=== PATIENT | male | born 1970 | race Caucasian/White ===

== ENCOUNTER 2024-09-10 08:33 | Emergency (ER) | payer BC, SELFPAY ==
[2024-09-10 08:40] VITALS: BP 130/94; PULSE 80; RESP 20; TEMP 37.1; O2SAT 98
--- NOTE | 2024-09-10 08:50 | ED_ITS ---
HPI - URI/Sore Throat General Chief Complaint: Upper Respiratory Infection Stated Complaint: Headache/nose burning Time Seen by Provider: 09/10/24 08:48 Source: patient and RN notes reviewed Mode of arrival: ambulatory Limitations: no limitations History of Present Illness HPI Narrative: 54-year-old male presents concern for 3 day history of headache, runny nose, burning eyes, burning nose. Reports occasional cough. He denies fever, aches, chills, sweats. Reports he has been taking an [id number] multi symptom cold medicine. MD elicited complaint: cough and nasal congestion Related Data Home Medications ?Medication ?Instructions ?Recorded ?Confirmed ?Last Taken ?Type bupropion HCl 300 mg 24 hr tablet, mg PO 09/10/24 Unknown History extended release lisinopril 5 mg tablet mg 09/10/24 Unknown History pramipexole 1.5 mg tablet mg 09/10/24 Unknown History pravastatin 40 mg tablet mg 09/10/24 Unknown History verapamil 120 mg tablet,extended mg PO 09/10/24 Unknown History release Review of Systems Review of Systems: CONSTITUTIONAL: Denies malaise, chills, sweats, or fever. EYES: Denies visual changes, redness, or discharge. ENT: Reports rhinorrhea, congestion, and sore throat. CARDIOVASCULAR: Denies chest pain, palpitations, or edema. RESPIRATORY: Reports cough. Denies dyspnea. GASTROINTESTINAL: Denies abdominal pain, nausea, vomiting, diarrhea SKIN: Denies rash or itching. MUSCULOSKELETAL: Denies myalgia. NEUROLOGIC: Reports headache. All systems reviewed & are unremarkable except as noted in HPI and below PMFSH Comments At time of signature, agree with nursing past medical, surgical, social and family history. There is no relevant family history pertinent to the presenting complaint Exam Narrative: GENERAL: Well-appearing, well-nourished, and in no acute distress. HEAD: Normocephalic EYES: PERRLA, conjunctivae clear ENT: Nares clear, turbinates edematous and erythematous, clear discharge. Mucous membranes moist. TM pearly hammond with sharp light reflex bilaterally; no tragal tenderness. Oropharynx not erythematous without lesions. Tonsils not enlarged and without exudate, no drooling, no hoarseness, no trismus, uvula midline. NECK: Supple. No lymphadenopathy CHEST: Clear to auscultation, breath sounds equal. No wheezing, rhonchi, rales, or stridor. No respiratory distress, speaks in full sentences. HEART: Regular rate and rhythm. No murmur heard. SKIN: Warm, dry, no rash. NEURO: Alert and oriented x3. PSYCH: Normal mood and affect Course Course Emergency Course: Patient is aware of diagnosis, understands and agrees to treatment plan. Anticipatory guidance given. Patient agrees to follow-up as directed and is aware of reasons to seek care at the emergency department. Portions of this record may have been created with voice recognition software Level of Care: Express Care Visit Vital Signs Vital signs: Vital Signs Temperature 98.7 F 09/10/24 08:40 Pulse Rate 80 09/10/24 08:40 Respiratory Rate 20 09/10/24 08:40 Blood Pressure 130/94 H 09/10/24 08:40 Pulse Oximetry 98 09/10/24 08:40 Oxygen Delivery Room Air 09/10/24 08:40 Temperature 98.7 F 09/10/24 08:40 Pulse Rate 80 09/10/24 08:40 Respiratory Rate 20 09/10/24 08:40 Blood Pressure 130/94 H 09/10/24 08:40 Pulse Oximetry 98 09/10/24 08:40 Oxygen Delivery Room Air 09/10/24 08:40 Reviewed. MDM - URI/Sore Throat MDM Narrative Medical decision making narrative: Differential diagnosis considered: De La Cruz virus, strep pharyngitis, allergic rhinitis, upper respiratory tract infection, sinusitis, rhinosinusitis, nasopharyngitis. viral pharyngitis, otitis media, otitis externa, pneumonia, bronchitis, viral cough syndrome, viral syndrome, and influenza. Exam findings show no acute concerns or changes; patient is non-toxic appearing and is in no distress. Patient is appropriate for outpatient treatment and follow-up. Lab Data Attestation: I reviewed the patient's lab results. Critical Care Time Critical Care Time Critical Care Time: No Discharge Plan Discharge Clinical Impression: Upper respiratory infection Patient Disposition: Home, Self-Care Condition: Stable Instructions: Upper Respiratory Infection (ED) Additional Instructions: Your rapid COVID and flu tests are negative Viral illness may last between 7-21 days; antibiotics do not cure viral illness and are NOT recommended at this time. Recommend antihistamine such as Benadryl at night time and Zyrtec or Yolanda during the day Mucinex DM per package directions Pseudoephedrine per package directions Also, recommend symptomatic treatment includes: rest, fluids, and increase humidity of the air at home. Recommend Acetaminophen as directed on the bottle to reduce fever, pain, headache. Avoid smoking/second-hand smoke. Please schedule a follow-up visit with your personal physician for further cherise luation and treatment within 3-5days. Including recheck and discussion of your blood pressure. If your symptoms persist, change or worsen significantly before you can contact your personal physician then please, without delay, go to the emergency department for further evaluation. Patient Language: Moldovan Prescriptions: No Action verapamil 120 mg tablet extended release PO pravastatin 40 mg tablet lisinopril 5 mg tablet pramipexole 1.5 mg tablet bupropion HCl 300 mg tablet extended release 24 hr PO Follow-up/Referrals: Christel,MD La [Primary Care Provider] - Time of Disposition: 09:13
[2024-09-10 09:14] LABS: EDCOVIDSCREEN Negative (Negative); EDINFLUASCREEN Negative (Negative); EDINFLUBSCREEN Negative (Negative)
--- OUTSIDE RECORDS SUMMARY | 2024-09-17 12:45 | XMS_ITS | CONTINUITY OF CARE DOCUMENT ---
Author Name tim dmuont Address Unknown Organization [facility] Address [address] [place] [address] [address] [place] [address] Phone [phone] Care Team Providers Care Mid Wife Name Role Phone tim dumnot Unavailable Unavailable
--- OUTSIDE RECORDS SUMMARY | 2024-09-17 12:45 | XMS_ITS | Encounter Summary ---
Author Name [facility] [place] [facility] Address [address] [place] [address] Care Team Providers Care Subwarehouse Supervisor Name Role Phone ANANYA MICKIE Primary Care Provider UnavailANA M Yañez Unavailable Unavailable CONRADO WATKINS Unavailable Unavailable LEONEL MONTANO Unavailable Unavailable HARRIET RUVALCABA Unavailable Unavailable DELVIN GODOY Unavailable Unavailable LILA DUFF Unavailable Unavailable Insurance Providers: All historical and current Section Date Range: From patient's date of to the date document was created. This section includes the names of all active insurance providers for the patient. Insurance Provider Type of Coverage Plan Name Start of Policy Coverage End of Policy Coverage Group Number Member ID Insurance Provider's Telephone Number Policy Wilson's Name Patient's Relationship to Policy Wilson [place] PREFERRED PROVIDER ORGANIZ[place]) [place] Nov 17, [id number] [phone] CLEMENT,B EMILY PATIENT [employer] [employer] PREFERRED PROVIDER ORGANIZAT ION (PPO) [employer] [place] [place] Nov 17, [id number] [phone] CLEMENT,B EMILY PATIENT [employer] PREFERRED PROVIDER ORGANIZAT ION (PPO) [employer] [place] [place] Nov 17, [id number] [phone] CLEMENT,B EMILY PATIENT [place] PREFERRED PROVIDER ORGANIZAT ION (PPO) [employer] [place] [place] Nov 17, 2017 [id number] [phone] Hal CLEMENT EMILY PATIENT [employer] ([employer]) PRESCRIPT ION REP WAGE Nov 17, 2017 [id number] [phone] RACQUEL REIDBROOKLYNY PATIENT Selected Encounter This section includes the information on record at [place] for the Encounter. Date/Time Encounter Type Encounter Description Reason Pro vider Source February 04, 2024 02:15 PM Outpatient Encounter ADMIN PAT ACTIVTIES (MASNONCT) IHE Encounter Template Text not used by [place] Social History: Smoking Status (Most current) and Tobacco Use (All prior to encounter date) This section includes the most current, and the historical, smoking and tobacco- related health factors from the [place] facility where the Encounter took place. Current Smoking Status This section includes the most current smoking, or tobacco-related health factor, from the [place] facility where the Encounter took place. Date/Time Current Smoking Status Comment Mao jarvis Jul 26, 2017 09:42 AM TOBACCO USER OFFERED MEDS [facility] Tobacco Use History This section includes a history of the smoking, or tobacco-related health factors, that were collected on or before the date of the Encounter. The data comes from the [place] facility where the Encounter took place. Date/Time Smoking Status/Tobacco Use Comment F acility Jul 26, 2017 09:42 AM CURRENT TOBACCO US ER (NOT READY TO QUIT) [facility] Jul 26, 2017 09:42 AM SMOKELESS TOBACCO AMOUNT/LENGTH V15 can daily [facility] Jul 26, 2017 09:42 AM TOBACCO CESSATION REFERRAL DECLINED [facility] Jul 26, 2017 09:42 AM TOBACCO MEDS OFFER ED BUT DECLINED [facility] Jul 26, 2017 09:42 AM TOBACCO USER OFFERED MEDS [facility] Jun 10, 2017 03:07 PM CURRENT TOBACCO USER [facility] Jun 10, 2017 03:07 PM TOBACCO MEDS OFFER ED BUT DECLINED [facility] Nov 15, 2016 08:14 AM CURRENT TOBACCO USER [facility] Encounter Notes: All associated encounter notes This section contains the clinical notes associated to the Encounter. Date/Time Encounter Note(s) Provider Source February 04, 2024 01:15 PM ADMINISTRATIVE NOT E: LOCAL TITLE: CCC: SCHEDULING ADMINISTRATION STANDARD TITLE: ADMINISTRATIVE NOTE DATE OF NOTE: FEBRUARY 04, 2024@13:15:53 ENTRY DATE: FEBRUARY 04, 2024@13:15:54 AUTHOR: LICO MADDOX COSIGNER: URGENCY: STATUS: COMPLETED Patient Demographics Patient Name: THOMAS CLEMENT Patient Primary Phone: [phone] Patient Primary [address]: [address] [place] [address] Patient : 1970 Patient Age: 53 Caller/Recipient Relation to Patient: Self Administrative Administrative Note Reason: Other Administrative Note Comments: called into [facility] stating that he is returning call. Informed the of the note placed. no provider listed at this time. please return call to the . /russ/ LICO CLEMENS Signed: 02/04/2024 13:16 Receipt Acknowledged By: 02/05/2024 09:09 /russ/ ROSE MARY GALICIA Advanced Patient Scheduler, PTSD AZRA 58 LICO MADDOX [facility]
--- OUTSIDE RECORDS SUMMARY | 2024-09-17 12:45 | XMS_ITS | Continuity of Care Document ---
Author Name [facility] Organization [facility] Care Team Providers Care Wharf Operator Name Role Phone [facility] Unavailable Unavailable Problems Combined list of problems from Department of [facility] and [facility] facilities. It does not include entries that were removed or entered in error. Problem Status Onset Date Problem Type Date of Resolution Comments Source Essential hypertension Active Condition [facility] Hyperlipidemia Active Condition . ANDREW IS [facility] Obstructive sleep apnea syndrome Active Condition [facility] Restless legs Active Condition . KAREN S [facility] Tobacco user Active Condition [facility] Immunizations Combined list of available immunizations from the Department of [facility] and [facility] facilities. Immunization Series Date Given Administered By Site Reaction Lot Number CVX Code Drug Silvering Department Supervisor Status Comments Source TDAP 2016 115 complet ed Left Del[facility]id [facility] Encounters Combined list of: 1) Encounters from [facility] of [facility] facilities going back up to thelast 18 months. 2) Encounters from the Department of [facility] facilities going back up to 280 months. Location Location Details Encounter Type Encounter Number Reason For Visit Attending Provider ADM Date DC Date Status Disposition Source [facility] Outpatient Encounter [id number] 01/29 [facility] Outpatient Encounter [id number] 02/03 [facility] Social History Combined list of available smoking, tobacco, and other social history from [facility] and [facility] facilities. Social History Type Response Date Comment Sourc e Tobacco smoking status NHIS TOBACCO USER OFFERED MEDS 07/26/2017 [facility] History of tobacco use CURRENT TOBACCO USER 07/26/2017 [facility] History of tobacco use CURRENT TOBACCO USER 06/10/2017 [facility] History of tobacco use CURRENT TOBACCO USER 11/15/2016 [facility]
--- OUTSIDE RECORDS SUMMARY | 2024-09-17 12:45 | XMS_ITS ---
Author Name [facility] Address [address] [place] [address] Care Team Providers Care Combination Saw Operator Name Role Phone ANANYA MICKIE Primary Care [...] (PPO) [employer] [place] [facility] [facility] Nov 17, [id number] [phone] CLEMENT,B EMILY PATIENT [employer] [place] PREFERRED PROVIDER ORGANIZAT ION (PPO) [employer] [place] Nov 17, [id number] [phone] CLEMENT,B EMILY PATIENT [employer] PREFERRED PROVIDER ORGANIZAT ION (PPO) [employer] [place] Nov 17, [id number] [phone] CLEMENT,B EMILY PATIENT [place] PREFERRED PROVIDER ORGANIZAT ION (PPO) [employer] [place] [place] Nov 17, 2017 [id number] [phone] Hal CLEMENT EMILY PATIENT [employer] ([employer]) PRESCRIPT ION REP WAGE Nov 17, 2017 [id number] [phone] RACQUEL REIDBROOKLYNY PATIENT Selected Encounter This section includes the information on record at [place] for the Encounter. Date/Time Encounter Type Encounter Description Reason Pro vider Source January 30, 2024 05:04 PM Outpatient Encounter ADMIN PAT ACTIVTIES (MASNONCT) IHE Encounter Template Text not used by [place] Social History: Smoking Status (Most current) and Tobacco Use (All prior to encounter date) This section includes the most current, and the historical, smoking and tobacco- related health factors from the [place] facility where the Encounter took place. Current Smoking Status This section includes the most current smoking, or tobacco-related health factor, from the [place] facility where the Encounter took place. Date/Time Current Smoking Status Comment Mao jarvis Jul 26, 2017 09:42 AM TOBACCO USER OFFERED MEDS [facility] Tobacco Use History This section includes a history of the smoking, or tobacco-related health factors, that were collected on or before the date of the Encounter. The data comes from the [place] facility where the Encounter took place. Date/Time Smoking Status/Tobacco Use Comment F acility Jul 26, 2017 09:42 AM CURRENT TOBACCO US ER (NOT READY TO QUIT) [facility] Jul 26, 2017 09:42 AM SMOKELESS TOBACCO AMOUNT/LENGTH V15 can daily [facility] Jul 26, 2017 09:42 AM TOBACCO CESSATION REFERRAL DECLINED [facility] Jul 26, 2017 09:42 AM TOBACCO MEDS OFFER ED BUT DECLINED [facility] Jul 26, 2017 09:42 AM TOBACCO USER OFFERED MEDS [facility] Jun 10, 2017 03:07 PM CURRENT TOBACCO USER [facility] Jun 10, 2017 03:07 PM TOBACCO MEDS OFFER ED BUT DECLINED [facility] Nov 15, 2016 08:14 AM CURRENT TOBACCO USER [facility] Encounter Notes: All associated encounter notes This section contains the clinical notes associated to the Encounter. Date/Time Encounter Note(s) Provider Source January 30, 2024 05:04 PM PRIMARY CARE CLARITZA RS: LOCAL TITLE: PC NEW PATIENT NO CONTACT LETTER [facility] STANDARD TITLE: PRIMARY CARE LETTERS DATE OF NOTE: JANUARY 30, 2024@17:04 ENTRY DATE: JANUARY 30, 2024@17:04:15 AUTHOR: ROSE MARY GALICIA COSIGNER: URGENCY: STATUS: COMPLETED [facility] [address] [place] [address] JANUARY 30, 2024 JADEN CLEMENT [address] [place] [id number] Dear Jaden Clement, Thank you for your interest in establishing care with a Primary Care Provider at the [facility]. Your Primary Care Provider is the clinical leader of your Patient Aligned Care Team (PACT). Your PACT Team manages and coordinates your comprehensive health care services. Primary Care includes, but is not limited to: diagnosis and management of acute and chronic health conditions, health promotion, disease prevention, overall care management, post-deployment care, and patient and caregiver education. If you would like more information, please visit [email or web address]. We have been unsuccessful in our attempts to contact you to schedule your initial appointment. Based on your current residence, the clinic recommended for your primary care needs is: [place] [address] We are happy to accommodate your request with another clinic, if needed. Please call to schedule your initial appointment. Thank you for your service, and we look forward to hearing from you. Sincerely, ROSE MARY GALICIA Advanced Crusher Setter, PTSD AZRA 58 JADEN CLEMENT JR, [facility] January 30, 2024 05:04 PM ADMINISTRATIVE NOT E: LOCAL TITLE: SCHEDULING NOTE ST[facility] STANDARD TITLE: ADMINISTRATIVE NOTE DATE OF NOTE: JANUARY 30, 2024@17:04 ENTRY DATE: JANUARY 30, 2024@17:04:44 AUTHOR: ROSE MARY GALICIAER: URGENCY: STATUS: COMPLETED Additional comments: Called [facility] to offer PCP appt. Contact Letter Sent ADDITIONAL RESULTS FROM SCHEDULING ATTEMPTS: /russ/ ROSE MARY GALICIA Advanced Crusher Setter, PTSD AZRA 58 Signed: 01/30/2024 17:04 ROSE MARY GALICIA [facility]
--- OUTSIDE RECORDS SUMMARY | 2024-09-17 12:46 | XMS_ITS | Encounter Summary ---
Author Organization [facility] Healthcare Address [address] [place] [address] Care Team Providers Care Fixed Income Portfolio Manager Name Role Phone Mariaelena Zaidi MD Unavailable La Kearney MD Primary Care Provide r Reason for Visit * Reason Onset Date Comments Additional Services Or Orders 06/01/2024 Medical Question/Miscellaneous 06/01/2024 Encounter Details Date Type Department Care Team (Late st Contact Info) Description 06/01/2024 Telephone [facility] Medical Group Primary Care at [address] [place] [address] La Kearney MD [address] [place] [address] [address] [place] [address] Additional Services Or Orders; Medical Question/Miscellaneous Social History Tobacco Use Types Packs/Day Years Used Date Smoking Tobacco: Never Smokeless Tobacco: Former Chew Quit: 08/2018 Comments:chews, not interest ed in counseling Alcohol Use Standard Drinks/Week Comments Yes 0 (1 standard drink = 0.6 oz pur e alcohol) can of beer a month AUDIT-C Answer Date Recorded Q1: How often do you have a drink containing alc ohol? 2-3 times a week 02/18/2024 Q2: How many drinks containi ng alcohol do you have on a typical day when you are drinking? 1 or 2 02/18/2024 Q3: How often do you have si x or more drinks on one occasion? Never 02/18/2024 PHQ-2 Answer Date Recorded PHQ-2 Total Score (If total score is 3 or more points, staff should administer the PHQ-9) 0 05/25/2024 Personal Safety Answer Date Recorded Have you ever been in or are you currently in a harmful physical or emotional relationship or is someone making you feel afraid or unsafe? 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 * Telephone Encounter - Mundo Mendez - 06/04/2024 3:41 PM CDT Medical Question/Miscellaneous Caller???s Concern: [facility] called stating they are needing the Ambulatory referral fax over to their office. And Does message need to be routed? Yes-Action Needed * Telephone Encounter - Mona Hightower - 06/01/2024 11:29 AM CDT Call Back Caller???s Concern: Ofelia Physical Therapist w/ [facility] calling to request orders for Shoulder as well as back. Warm transferred as patient was in office currently Does message need to be routed? No documented in this encounter Plan of Treatment Not on file documented as of this encounter Visit Diagnoses Not on filedocumented in this encounter Care Teams Fixed Income Portfolio Manager Relationship Specialty Start Date End Date La Kearney MD [address] [facility] [address] [place] [address] [place] [phone] PCP - General Family Medicine 10/02/22 Mariaelena Zaidi MD Consulting Physician Sleep Medicine 07/12/21 documented as of this encounter
--- OUTSIDE RECORDS SUMMARY | 2024-09-17 12:46 | XMS_ITS | Encounter Summary ---
Author Organization [facility] Healthcare Address [address] [place] [address] Care Team Providers Care Mobility Specialist Name Role Phone Mariaelena Zaidi MD Unavailable La Kearney MD Primary Care Provide r Reason for Referral * Diagnostic Imaging (Routine) - Pending Review Specialty Diagnoses / Procedures Referred By Zaida camacho Referred To Contact Diagnoses Myalgia, other site Procedures Imaging Ultrasound Trigger Point INJ 3+ Muscle Groups () Wilfredo Mccormick MD [address] [place] [address] DR LUCAS [address] [place] [id number] Phone: tel: fax: [facility] [address] [place] [address] Referral ID Status Reason Start Date Expiration Date V isits Requested Visits Authorized [id number] Pending Review 08/20/2024 09/19/2025 1 1 BREAKER Reason for Visit * Reason Comments Initial Consult Pain Encounter Details Date Type Department Care Team (Latest Contact Info) Description 08/20/2024 10:11 AM COP BREAKER - 08/20/2024 11:59 PM COP BREAKER Hospital Encounter [facility] 2 [facility] [place] [address] Wilfredo Mccormick MD [address] [place] [address] DR LUCAS [address] [place] [id number] Myalgia, other site (Primary Dx); Chronic right shoulder pain Discharge Disposition: Discharge to home or self care Social History Tobacco Use Types Packs/Day Years [...] points, staff should administer the PHQ-9) 0 08/20/2024 Personal Safety Answer Date Recorded Have you ever been in or are you currently in a harmful physical or emotional relationship or is someone making you feel afraid or unsafe? Denies 04/13/2024 Sex and Gender Information Value Date Recorded Sex Assigned at Not on file 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 COP BREAKER Gender Identity Not on file Sexual Orientation Not on file documented as of this encounter Last Filed Vital Signs Vital Sign Reading Time Taken Comments Blood Pressure 140/94 08/20/2024 10:48 AM COP BREAKER Pulse 96 08/20/2024 10:48 AM COP BREAKER Temperature - - Respiratory Rate 18 08/20/2024 10:48 AM COP BREAKER Oxygen Saturation 96% 08/20/2024 10:48 AM COP BREAKER Inhaled Oxygen Concentration - - Weight - - Height - - Body Mass Index - - documented in this encounter Medications at Time of Discharge lisinopriL (PRINIVIL,ZESTRIL) 5 mg tabletIndications:Es sential hypertension Take 1 tablet (5 mg total) by mouth nightly 100 tablet 3 02/18/2024 metoprolol XL (TOPROL-XL) 50 mg extended release tabletIndications:Es sential hypertension Take 1 tablet (50 mg total) by mouth nightly 90 tablet 3 02/18/2024 phenazopyridine (PYRIDIUM) 200 mg tablet Take 1 tablet (200 mg total) by mouth 3 (three) times a day as needed for bladder spasms 9 tablet 04/14/2024 pramipexole (MIRAPEX) 1.5 mg tabletIndications:Re stless legs syndrome TAKE 1 TABLET THREE TIMES A DAY 100 tablet 10 02/10/2024 pravastatin (PRAVACHOL) 40 mg tabletIndications:Hy perlipidemia, unspecified hyperlipidemia type TAKE 1 TABLET DAILY 90 tablet 1 12/27/2023 tamsulosin (FLOMAX) 0.4 mg extended release capsule Take 1 capsule (0.4 mg total) by mouth nightly 30 capsule 04/14/2024 buPROPion XL (WELLBUTRIN XL) 300 mg 24 hr tablet TAKE 1 TABLET EVERY MORNING 100 tablet 1 03/08/2024 documented as of this encounter Discharge Disposition Disposition Code Departure Means Destination Discharge to home or self care documented in this encounter Progress Notes * Wilfredo Mccormick MD - 08/20/2024 10:54 AM CST Treatment Summary Impression: Query myalgia pain in the setting of chronic right shoulder pain versus cervical spondylosis; trial simple trigger point injections to cervical paraspinal musculature and right trapezius The following imaging/procedural orders were placed during this visit: Orders Placed This Encounter Procedures Imaging Ultrasound Trigger Point INJ 3+ Muscle Groups () Medications: None Follow up: For procedure Patient Name: Jaden De La Torre Age: 53 y.o. [facility] New Patient Visit Subjective Jaden De La Torre presents today at the recommendation of Dr. Kearney for initial evaluation regarding his history of axial neck and shoulder pain. Current pain is/was chronic in onset, inciting etiology: progressive Pain Score: 6 Pain Descriptors: Radiating, Sharp, Stabbing (LOCKS UP) Pain Location: Neck Aggravating Factors: Other (Comment) (MOVEMENT, CANT SLEEP ON RIGHT SIDE) Alleviating factors: rest, repositioning, and activity modification Pain Radiating Towards: NECK INTO RIGHT SHOULDER, WEAKNESS IN SHOULDER Axial neck pain centered around cervical paraspinal musculature and right trapezius. Extension and flexion of the neck are particularly aggravating, no aggravation with rotation. Occasional feeling at neck will ???lock up?? . 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 At home while sitting in his recliner, needs to hold his phone at eye level to avoid neck pain. Denies any radicular features down the arm, no difficulty with fine finger movement or myelopathic symptoms. Currently in physical therapy for his right shoulder, see x-ray findings below. Outstanding referral from orthopedics. Occasional child care education coordinator which helps temporarily. Heat is also beneficial for him. THERAPIES TO DATE INTERVENTIONS: RELEVANT SURGERIES: Current medications: [x] Tylenol [] Gabapentin [] Nortriptyline [] Tramadol [] Oxycontin [] Flexeril [] Lidocaine patch [] -Triptans [] Aspirin [] Lyrica [] Amitriptyline [] Tylenol 3 [] MSContin [] Tizanidine [] OTC topicals [] Propranolol [] Aleve [] Cymbalta [] Topiramate [] Codeine [] Dilaudid [] Baclofen [] Capsaicin [] Botox [x] Ibuprofen [] Valproate [] Oxycodone [] Methadone [] Soma [] Fioricet [] Meloxicam [] Carbamazepine [] [place] [] Fentanyl [] Metaxalone [] Diclofenac [] Naltrexone [] Percocet [] Buprenorphine [] Methocarbamol [] Celebrex [] Morphine [] Nucynta [] Soma Other: CONSERVATIVE MEASURES [x] Physical Therapy [x] Chiropractor [] Home Exercise [] Yoga/stretching [] TENS Unit [x] OTC medications (see above) [x] Heat/ice [] Other ( ) Pt has tried the conservative measures indicated above for at least 6 month(s) with inadequate relief. Jaden De La Torre's history was reviewed and updated as appropriate including past medical history, past surgical history, social history, family history, allergies, and home medication list. A review of systems was completed, reviewed, and scanned into the chart. ROMÁN, PEG Scale, and Current Opioid Misuse Measure (COMM) reviewed during this encounter. Modified Oswestry Low Back Pain Score: 13 Objective Vitals: 08/20/24 1048 BP: 140/94 Pulse: 96 Resp: 18 SpO2: 96% PHYSICAL EXAM General: Pleasant, no acute distress, normal appearance, grooming and nutrition Skin: No rashes or lesions on exposed skin Heart/Lungs: non labored breathing Neuro/MSK: Cranial nerves intact No gross deformities on inspection Gait: normal edwin and stride Palpation: tenderness over bilateral cervical paraspinal muscles and tenderness over right trapezius muscles Range of motion: Hesitant range of motion primarily with extension, normal rotation Sensation: grossly normal to light touch in BL upper extremities Spurling: reproduced axial symptoms Action Grade Right Left Shoulder shrug (C4) 5 5 Shoulder abduction (C5) 5 5 Biceps flexion (C5-6) 5 5 Wrist extension (C6) 5 5 Triceps extension/wrist flexion (C7) 5 5 Finger flexion (C8) 5 5 Finger abduction (T1) 5 5 Reflex Grade Right Left Biceps (C5) normal (2+) normal (2+) Brachioradialis (C6) normal (2+) normal (2+) Triceps (C7) normal (2+) normal (2+) Upper motor neuron testing: Sarmiento: negative bilaterally Lhermitte sign negative DIAGNOSTICS I have reviewed all relevant imaging studies and explained pertinent findings to the patient. 2023: X-ray right shoulder, thoracic spine, lumbar spine Thoracic and lumbar spine: There is mild retrolisthesis of L4 on L5 and L3 on L4 with lumbar hypolordosis. Thoracic spine alignment is within normal limits. Vertebral body heights are normal. There is no acute fracture. There is mild multilevel thoracolumbar spine degenerative disc disease. Lower lumbar spine facet joint osteoarthritis. Left iliac bone island is present. Right shoulder: There is widening of the acromioclavicular interval either reflecting sequela of prior injury or prior distal end clavicle resection. The glenohumeral joint alignment is within normal limits. The glenohumeral joint space is normal. No aggressive bone lesions or erosions. There is no acute fracture. 2022: X-rays cervical spine There are no fractures. Cervical kyphosis is present. There is no prevertebral soft tissue swelling. There is mild C3-C5 and moderate C5-C7 degenerative disc disease. There is mild bilateral C5-C7 foraminal impingement. There is mild facet osteoarthritis. Assessment/Plan Myalgia, other Chronic right shoulder pain Mild cervical facet arthritis Was a pleasure to meet Jaden today in clinic. I think it is reasonable to expect axial neck pain and chronic right shoulder pain are related to some degree, discussed how right shoulder injury can cause stiffness/pain in the trapezius and cervical paraspinal musculature over time particularly if he were favoring the joint to avoid pain. 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 Only mild facet degeneration on x-ray, however. I think it would be reasonable to start with simple trigger point injections of the cervical paraspinals as well as the right trapezius. Encouraged him to continue physical therapy, focus on stretching and range of motion, and utilize heat for muscle tenderness if necessary. See below for justification, follow up procedure. Wilfredo Mccormick MD Interventional Pain Management [facility] PLAN JUSTIFICATION History and physical exam consistent with myofascial pain which is contributing to the patient's overall pain state. This is evident through multiple trigger points as mentioned above. Pain has been present for at least 4 weeks and the patient has failed to respond (or has been unable to tolerate) conservative measures during that timeframe (see Subjective for specific measures). For these reasons, I think it's reasonable to try a trigger point injection of the affected muscles. Specific muscle(s) - right splenius capitis, trapezius, and periscapular musculature We discussed the nature of the procedure including risks and benefits. We also discussed reasonableexpectations for pain relief (ie may not get 100% relief and results will likely be temporary). Rather, the goal is to use this intervention to help maximize activity/rehabilitation/therapy for more lasting results.The patient expressed understanding and is willing to proceed. MIPS Best Practice documentation Blood pressure in clinic today was BP: 140/94. This classifies as a hypertensive BP reading (SBP > 140 OR DBP > 90). Recommended lifestyle modifications and discussion with PCP. Patient is not a tobacco user. PATIENT EDUCATION Learning needs assessment was performed and no barriers identified. Explained diagnosis and treatment plan. Patient expressed understanding and was able to teach back. I personally spent a total of 10 minutes of [id number] time performing a review of the recordand/or discussion with the patient/caregiver as described above. Total time spent with patient 30 minutes, total time in counseling 20 minutes. FIRE HAZARD INSPECTOR: Turf Keeper completed with Fluency Direct, dictation proofread to best of my ability. BREAKER documented in this encounter Nursing Notes * Madelaine Fried RN - 08/20/2024 10:45 AM CST Level 2 Escorted patient to exam room. Obtained vital signs. Reviewed patient's allergies and current medications. Obtained and verified patient's simple medical/surgical history. Confirmed the reason for visit with the patient. Obtained the following screening assessments: [x] Modified Oswestry Low Back Pain Questionnaire [] PMC Intake Questionnaire [] PMC Follow up Questionnaire [] Fall Risk Assessment (Abby Domingo Steadi) [x] Depression/Anxiety Assessment (GAD7, PHQ-9, [place] Suicide, Dill Depression) [] Disability Scale [] CAGE [] SOAPP-R Additional tasks included: [] Random medication adherence check (pill verification by two nurses) [] Work/school note written [] Pended CT/MRI/MRA order [] Pain assessment for multiple sites [x] PEG, COMM, NEW PATIENT PAPERWORK Vital Signs Pulse: 96 Resp: 18 BP: 140/94 SpO2: 96 % Post-visit transport confirmed with the patient. Total time spent for patient care, education, and care coordination was approximately 11-20 minutes. BREAKER documented in this encounter Plan of Treatment Scheduled Orders Name Type Priority Associated Diagnoses Orde r Schedule Imaging Ultrasound Trigger Point INJ 3+ Muscle Groups () Imaging Schedule Routine, Read Routine (OP Routine) Myalgia, other site Expected: 08/20/2024, Expires: 08/20/2025 documented as of this encounter Visit Diagnoses Diagnosis Myalgia, other site- Primary Chronic right shoulder pain Pain in joint, shoulder region documented in this encounter Care Teams Mobility Specialist Relationship Specialty Start Date End Date La Kearney MD [address] [facility] [address] [address] PCP - General Family Medicine 10/02/22 Mariaelena Zaidi MD Consulting Physician Sleep Medicine 07/12/21 documented as of this encounter
--- OUTSIDE RECORDS SUMMARY | 2024-09-17 12:46 | XMS_ITS | Encounter Summary ---
Author Organization [facility] Healthcare Address [address] [place] [address] Care Team Providers Care Auxiliary Plant Operator Name Role Phone Mariaelena Zaidi MD Unavailable La Kearney MD Primary Care Provide r Reason for Visit * Reason Onset Date Comments Appointment Request 08/17/2024 Encounter Details Date Type Department Care Team (Late st Contact Info) Description 08/17/2024 Telephone [facility] Primary Care at [address] [phone] La Kearney MD [address] [place] [address] Appointment Request Social History Tobacco Use Types Packs/Day Years [...] on file 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 SPEECH LANG PATH Gender Identity Not on file Sexual Orientation Not on file documented as of this encounter Miscellaneous Notes * Telephone Encounter - Alida Doran - 08/18/2024 1:20 PM CST Call to pt to schedule his appt for back pain. Scheduled him w/Shannan for tomorrow at 10:30. CH LANG PATH * Telephone Encounter - Fior Contreras - 08/17/2024 3:55 PM CST Appointment Request What visit type does the patient need? Visit Type: Established Patient What is the reason for the visit? 2m back and shoulder pain What is the reason we were unable to schedule the appointment? Current appointment availability didnot meet patient's need. If applicable, were all members of the patient's PCP care team offered (e.g., nurse practioner(s), physician service assistant(s)) ? Yes Additional Comments: none Does message need to be routed? Yes-Action Needed CH LANG PATH documented in this encounter Plan of Treatment Not on file documented as of this encounter Visit Diagnoses Not on filedocumented in this encounter Care Teams Auxiliary Plant Operator Relationship Specialty Start Date End Date La Kearney MD [address] [place] [address] DR LUCAS [address] [place] [id number] PCP - General Family Medicine 10/02/22 Mariaelena Zaidi MD Consulting Physician Sleep Medicine 07/12/21 documented as of this encounter
--- OUTSIDE RECORDS SUMMARY | 2024-09-17 12:46 | XMS_ITS | Encounter Summary ---
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 * Telephone Encounter - Ginger Farmer MA - 06/01/2024 1:44 PM CDT Please review. * Telephone Encounter - La Kearney MD - 06/01/2024 1:42 PM CDT Please add order for right shoulder pain as recommended at check out * Telephone Encounter - Ginger Farmer MA - 06/01/2024 11:[address] Kearney, please review message. * Telephone Encounter - Alida Doran - 06/01/2024 11:29 AM CDT [facility] is asking for a new order for his Rt shoulder. He was sent for PT for Chronic midline thoracic back pain (M54.6,G89.29). They are asking for a new order to include his Rt shoulder along with the back pain. Pt is there now. documented in this encounter Plan of Treatment Not on file documented as of this encounter Visit Diagnoses Not on filedocumented in this encounter Care Teams Deicer Repairer Pneumatic Relationship Specialty Start Date End Date La Kearney MD [address] [place] [address] [address] LUCAS [address] [place] [address] PCP - General Family Medicine 10/02/22 Mariaelena Zaidi MD Consulting Physician Sleep Medicine 07/12/21 documented as of this encounter
--- OUTSIDE RECORDS SUMMARY | 2024-09-17 12:46 | XMS_ITS | Clinical Summary ---
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 20 tablet 3 023 Active pravastatin (PRAVACHOL) 40 mg tabletIndications :Hyperlipidemia, unspecified hyperlipidemia type TAKE 1 TABLET DAILY 90 tablet 1 024 Active pramipexole (MIRAPEX) 1.5 mg tabletIndications :Restless legs syndrome TAKE 1 TABLET THREE TIMES A DAY 100 tablet 10 024 Active lisinopriL (PRINIVIL,ZESTRIL ) 5 mg tabletIndications :Essential hypertension Take 1 tablet (5 mg total) by mouth nightly 100 tablet 3 024 Active metoprolol XL (TOPROL-XL) 50 mg extended release tabletIndications :Essential hypertension Take 1 tablet (50 mg total) by mouth nightly 90 tablet 3 024 2024 Active senna-docusate (PERICOLACE) 8.6-50 mg Take 2 tablets by mouth 2 (two) times a day 120 tablet 024 Active oxyBUTYnin XL (DITROPAN-XL) 10 mg 24 hr tablet Take 1 tablet (10 mg total) by mouth daily 30 tablet Active tamsulosin (FLOMAX) 0.4 mg extended release capsule Take 1 capsule (0.4 mg total) by mouth nightly 30 capsule Active phenazopyridine (PYRIDIUM) 200 mg tablet Take 1 tablet (200 mg total) by mouth 3 (three) times a day as needed for bladder spasms 9 tablet Active buPROPion XL (WELLBUTRIN XL) 300 mg 24 hr tablet TAKE 1 TABLET EVERY MORNING 90 tablet 1 Active buPROPion XL (WELLBUTRIN XL) 300 mg 24 hr tablet TAKE 1 TABLET EVERY MORNING 100 tablet 1 2023 Discontinued ciprofloxacin (CIPRO) 500 mg tablet Take 1 tablet (500 mg total) by mouth 2 (two) times a day 6 tablet 2023 Discontinued(P atient Reported) ketorolac (TORADOL) 10 mg tablet Take 1 tablet (10 mg total) by mouth every 6 (six) hours as needed for pain 30 tablet 2023 Discontinued(P atient Reported) Active Problems Problem Noted Date Diagnosed Date Class 2 severe obesity due t o excess calories with serious comorbidity and body mass index (BMI) of 36.0 to 36.9 in adult 05/25/2024 Acute pain of right shoulder 05/25/2024 Assessment & Plan (05/25/2024 9:07 AM CDT): New concern Worsening 2/2 heavy lifting Possible bursitis Referral to physical therapy Trial of medrol dose pack F/u in 2 months for monitoring, can consider ortho referral in the future Chronic midline thoracic back pain 05/25/2024 Assessment & Plan (05/25/2024 9:08 AM CDT): Worsening new pain Will get xray of the thoracic spine Possible arthritis Sent steroid pain Physical therapy F/u in 2 months for monitoring Ureteral stone with hydronephrosis 04/13/2024 Right lower quadrant abdominal pain 10/07/2023 Assessment & Plan (10/07/2023 1:20 PM POST ADOPTION COORDINATOR): New concern Not at goal Will get ct of the abdomen to rule out appendicitis and to evaluate the gall bladder Low suspicion that it is a kidney stone that migrated but will get a ct scan anyway F/u pending results Instructed to report the ED for worsening symptoms Status post appendectomy 10/07/2023 Acute appendicitis with loca lized peritonitis, without perforation, abscess, or gangrene 10/07/2023 Assessment & Plan (10/15/2023 9:14 AM POST ADOPTION COORDINATOR): Pathology has been reviewed with the patient. Just acute appendicitis. He did have significant adenopathy seen on imaging that likely was just reactive. However we will repeat his CT scan in 6-8 weeks to ensure nothing remains. Also if he has not had a colonoscopy within the past several years this should also be repeated just to ensure no intraluminal cause of the appendicitis. Continue light duty for 4 weeks then can return to activities unrestricted. Patient will call us back with any further questions or concerns. Intermittent palpitations 08/08/2023 Assessment & Plan (08/08/2023 4:00 PM POST ADOPTION COORDINATOR): Acute problem- this is a recurring problem Seen in ED for intermittent palpations Follow up with cardiology as scheduled Continue to monitor ECG: Vent Rate: 108 bpm RR Interval: 553 msec NH Interval: 163 msec QRS Duration: 97 msec QT Interval: 383 msec QTC Interval: 446 msec P-R-T [place]: 46 - 2 - 13 degrees IMPRESSION: SINUS TACHYCARDIA WITH FREQUENT SUPRAVENTRICULAR PREMATURE COMPLEXES Compared to prior EKG, heart rate is now faster and PVCs are new. (Electronically Signed By: Dr Anoop Pablo) ECG: Vent Rate: 66 bpm RR Interval: 898 msec NH Interval: 170 msec QRS Duration: 99 msec QT Interval: 399 msec QTC Interval: 413 msec P-R-T [place]: 45 - 14 - 29 degrees IMPRESSION: SINUS RHYTHM WITH OCCASIONAL SUPRAVENTRICULAR PREMATURE COMPLEXES POSSIBLE LEFT ATRIAL ENLARGEMENT [-0.1mV P-WAVE IN V1/V2] Compared to prior EKG, PACs are now less frequent. (Electronically Signed By: Dr Anoop Pablo) Neck pain 06/07/2023 Assessment & Plan (06/07/2023 10:09 AM CDT): Chronic Worsening Will get xray of the cervical spine Recommend heat and aleve Referral to physical therapy Depending on results and no improvement with physical therapy will refer to pain management or neurosurgery F/u in 1 month Right groin pain 11/20/2022 Assessment & Plan (11/20/2022 10:37 AM CDT): It does feel on clinical exam like the patient has a hernia. It was not present on his scan 6 months ago so I will order an ultrasound to see if in real time they can reproduce the bulge that I felt on clinical exam. Currently it is not overtly symptomatic to the patient's so he would like to prefer a more watchful waiting approach. He is aware of symptoms such as strangulation or incarceration. We will call him with the results of the ultrasound. If the hernia would ever become more symptomatic or he would like to get it fixed he will let us know as well. We have discussed postoperative restrictions. We have discussed the need for mesh implantation. Encounter for wellness examination 10/02/2022 Assessment & Plan (05/22/2024 7:13 AM CDT): Labs pending Flu declines Colonoscopy up to date, due 2030 F/u in 1 year for annual Assessment & Plan (06/06/2023 5:22 PM CDT): Ordered CBC, cmp, lipid, hgb a1c, HIV, hep c, TSH w/ reflex to t4 Flu declines Colonoscopy up to date F/u in 1 year for annual Assessment & Plan (10/02/2022 1:19 PM POST ADOPTION COORDINATOR): Med list and problem list reviewed Benign prostatic hyperplasia with weak urinary s tream 06/12/2022 Overview (06/12/2022): Added automatically from request for surgery [id number] Assessment & Plan (05/22/2024 7:06 AM CDT): Stable / clinically quiescent. Will continue to monitor. Managed by urology On flomax cialis and oxybutynin Assessment & Plan (06/06/2023 7:03 AM CDT): Stable / clinically quiescent. Will continue to monitor. Vitamin D deficiency 12/13/2021 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 Assessment & Plan (10/18/2021 4:41 PM POST ADOPTION COORDINATOR): Discussed with pt that he will need to take it easy. Rest when your body tells you. If still having symptoms in 6 wks, we will do echo and cxr Situational anxiety 07/27/2020 Assessment & Plan (05/22/2024 7:07 AM CDT): Patient reiterated no suicidal thoughts at this time; take medication as directed; contact 911 and go to the ER if becomes suicidal; HPI: Condition is stable A&P: Discussed/ordered labs, encouraged healthy, low carbohydrate lifestyle and at least 150min/week of exercise, continue on Bupropion 300 mg daily Assessment & Plan (06/06/2023 7:06 AM CDT): Patient reiterated no suicidal thoughts at this time; take medication as directed; contact 911 and go to the ER if becomes suicidal; HPI: Condition is stable A&P: Discussed/ordered labs, encouraged healthy, low carbohydrate lifestyle and at least 150min/week of exercise, continue on Bupropion 300 mg daily Assessment & Plan (10/18/2021 3:11 PM POST ADOPTION COORDINATOR): Patient reiterated no suicidal thoughts at this time; take medication as directed; contact 911 and go to the ER if becomes suicidal; discussed side effects of medication with patient; encouraged healthy diet and exericise; encouraged patient to see a counselor HPI: Condition is stable A&P: Discussed/ordered labs, encouraged healthy, low carbohydrate lifestyle and at least 150min/week of exercise, continue on Bupropion 300 mg daily Assessment & Plan (04/11/2021 4:32 PM CDT): Patient reiterated no suicidal thoughts at this time; take medication as directed; contact 911 and go to the ER if becomes suicidal; discussed side effects of medication with patient; encouraged healthy diet and exericise; encouraged patient to see a counselor HPI: Condition is stable A&P: Discussed/ordered labs, encouraged healthy, low carbohydrate lifestyle and at least 150min/week of exercise, continue on bupropion xl 300mg at bedtime Assessment & Plan (07/27/2020 9:25 AM POST ADOPTION COORDINATOR): HPI: Condition is new A&P: Discussed/ordered labs, encouraged healthy, low carbohydrate lifestyle and at least 150min/week of exercise, continue taking the buproprion. Use the alprazolam 0.25mg twice daily as needed for rescue only except tomorrow for the I want you take it. I want you to take the hydroxyzine 25mg at bedtime to help with sleep Discussed with patient that the alprazolam will be given for short term only. Discussed the risk of dependency, increased risk of dementia, discussed not to drive or operate machinery while using the medication as he could get a dui. I would like you to work on biofeedback. You can download an olegraio on your phone. Examples would be headspace, calm, [id number], Personal Steve. Please work on this every day. It is similar to if you were a musician with a big performance coming up. You would practice your instrument every day so that on the day of the big performance, you don't even have to think about playing. This works the same way for using the biofeedback to bring you down from those high stress/anxiety moments. If you practice using the biofeedback skills daily, it will become a second nature and you will be able to help yourself more effectively. Anger reaction 03/30/2019 Assessment & Plan (10/18/2021 3:14 PM POST ADOPTION COORDINATOR): Patient reiterated no suicidal thoughts at this time; take medication as directed; contact 911 and go to the ER if becomes suicidal; discussed side effects of medication with patient; encouraged healthy diet and exericise; encouraged patient to see a counselor HPI: Condition is stable A&P: Discussed/ordered labs, encouraged healthy, low carbohydrate lifestyle and at least 150min/week of exercise, continue on Bupropion 300 mg daily Assessment & Plan (04/11/2021 4:43 PM CDT): Patient reiterated no suicidal thoughts at this time; take medication as directed; contact 911 and go to the ER if becomes suicidal; discussed side effects of medication with patient; encouraged healthy diet and exericise; encouraged patient to see a counselor HPI: Condition is stable A&P: Discussed/ordered labs, encouraged healthy, low carbohydrate lifestyle and at least 150min/week of exercise, continue on bupropion xl 300mg at bedtime Assessment & Plan (04/28/2020 10:10 PM CDT): Discussed/ordered labs, Condition is worsening encouraged healthy, low carbohydrate lifestyle and at least 150min/week of exercise, since pt was doing well on the wellbutrin 150mg, we will increase to 300mg. This condition is likely worsening as pt is dealing with his mothers stage 4 lung cancer and leukemia. She has been given about 6 mo. Discussed with patient that we will likely need to stay on this medication increase for about a year if it is working well for him. Patient reiterated no suicidal thoughts at this time; take medication as directed; contact 911 and go to the ER if becomes suicidal; discussed side effects of medication with patient; encouraged healthy diet and exericise; encouraged patient to see a counselor We will have pt work on biofeedback. Discussed that this needs to be worked into his daily activities and described it as being muscle memory if you don't practice it daily, you will not remember the skillset. Return for follow up in 4-6 wks or sooner if needed. Assessment & Plan (09/30/2019 4:20 PM POST ADOPTION COORDINATOR): Pt's says the buproprion 150mg daily is helping he has been taking it for several months. He doesn't feel it is helping much though. He is not getting in trouble at work with anger He is able to get along with family. He struggles with crowds and people he doesn't know He does not see a counselor Watch youtube for biofeedback tips Benign ganglioneuroma of abdomen 03/30/2019 Assessment & Plan (04/28/2020 10:07 PM CDT): Repeat CT abd/pelvis for monitoring growth ordered Spondylosis of lumbar region without myelopathy or radiculopathy 03/30/2019 Assessment & Plan (05/25/2024 9:06 AM CDT): Chronic Worsening xray of the lumbar spine last year showed DDD, will repeat given recent heavy lifting Sent medrol dose back which will help with arthritic pain will refer to pain management F/u in 2 months Assessment & Plan (06/07/2023 10:09 AM CDT): Chronic Worsening Will get xray of the lumbar spine Recommend heat and aleve Referral to physical therapy Depending on results and no improvement with physical therapy will refer to pain management or neurosurgery F/u in 1 month Assessment & Plan (10/18/2021 3:13 PM POST ADOPTION COORDINATOR): HPI: Condition is stable A&P: Discussed/ordered labs, encouraged healthy, low carbohydrate lifestyle and at least 150min/week of exercise, Meloxicam 15 mg daily Assessment & Plan (04/11/2021 4:43 PM CDT): HPI: Condition is stable A&P: Discussed/ordered labs, encouraged healthy, low carbohydrate lifestyle and at least 150min/week of exercise, no meds needed at this time. Laryngopharyngeal reflux (LPR) 10/29/2018 Assessment & Plan (10/18/2021 3:15 PM POST ADOPTION COORDINATOR): HPI: Condition is stable no meds at this time, encouraged healthy diet and exercise Avoid trigger foods including: carbonated beverages, caffeine, spicy, fried foods, tomatoes, cucumbers, mint, and acidic fruits/juices like orange/lemon/grapefruit. Avoid eating/drinking anything for at least 2 hours before bed. Sleep with bed propped. 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 deficiency with terminal carman use of PPI with pt, would like to remain on medication at this time Assessment & Plan (04/11/2021 4:47 PM CDT): HPI: Condition is not at/near goal Pt does not want to go on meds, encouraged healthy diet and exercise Avoid trigger foods including: carbonated beverages, caffeine, spicy, fried foods, tomatoes, cucumbers, mint, and acidic fruits/juices like orange/lemon/grapefruit. Avoid eating/drinking anything for at least 2 hours before bed. Sleep with bed propped. Discussed increased risk of cdif and vit B12 deficiency with terminal carman use of PPI with pt, would like to remain on medication at this time Assessment & Plan (09/30/2019 2:17 PM POST ADOPTION COORDINATOR): Discussed/ordered labs, Condition is stable, encouraged healthy, low carbohydrate lifestyle and at least 150min/week of exercise, continue on ranitidine 300mg nightly Assessment & Plan (10/29/2018 4:10 PM POST ADOPTION COORDINATOR): Start Zantac 300 mg at bedtime Increase caffeine free and soda free fluid daily LPR discussed and Handout provided Hyperlipidemia 07/12/2016 Overview (12/15/2016): Hyperlipidemia Assessment & Plan (05/22/2024 7:04 AM CDT): Stable Continue pravastatin 40mg daily Assessment & Plan (06/06/2023 7:02 AM CDT): Stable Continue pravastatin 40mg daily Assessment & Plan (10/18/2021 3:12 PM POST ADOPTION COORDINATOR): HPI: Condition is stable A&P: Discussed/ordered labs, encouraged healthy, low carbohydrate lifestyle and at least 150min/week of exercise, continue on Pravastatin 40 mg daily Assessment & Plan (04/11/2021 4:42 PM CDT): HPI: Condition is stable A&P: Discussed/ordered labs, encouraged healthy, low carbohydrate lifestyle and at least 150min/week of exercise, continue on pravastatin 40mg daily Assessment & Plan (04/28/2020 9:55 PM CDT): Discussed/ordered labs, Condition is stable encouraged healthy, low carbohydrate lifestyle and at least 150min/week of exercise, continue on pravastatin 40mg daily Assessment & Plan (09/30/2019 2:17 PM POST ADOPTION COORDINATOR): Discussed/ordered labs, Condition is stable, encouraged healthy, low carbohydrate lifestyle and at least 150min/week of exercise, continue on pravastatin 40mg daily Assessment & Plan (10/20/2018 10:22 PM POST ADOPTION COORDINATOR): Lipid abnormalities are unchanged. Nutritional counseling was provided. Lipids will be reassessed in 3 months. Continue with pravastatin Recheck Lipids in 6 months Essential hypertension 07/12/2016 Overview (12/15/2016): Essential hypertension Assessment & Plan (05/25/2024 8:43 AM CDT): Bp in the office today BP Readings from Last 1 Encounters: 05/25/24 128/78 Continue current regimen of lisinopril 5mg daily metoprolol 50mg at night Recommend DASH diet, heart-healthy lifestyle, exercise. Discussed the risks of hypertension. F/u in 6 months Assessment & Plan (02/18/2024 3:53 PM CDT): Bp in the office today BP Readings from Last 1 Encounters: 02/18/24 110/70 Continue current regimen of lisinopril 5mg daily metoprolol 50mg at night Recommend DASH diet, heart-healthy lifestyle, exercise. Discussed the risks of hypertension. F/u at annual in 3 months Assessment & Plan (08/08/2023 3:45 PM POST ADOPTION COORDINATOR): Chronic problem-controlled with current regimen Continue metoprolol XL 25 mg daily Continue Metoprolol tartrate 25 mg- take half tablet (12.5 mg) daily prn BP this visit 108/62 Recommend DASH diet, heart-healthy lifestyle, exercise. Discussed the risks of hypertension. Continue to monitor Assessment & Plan (06/06/2023 5:09 PM CDT): Bp in the office today BP Readings from Last 1 Encounters: 06/06/23 128/78 Continue current regimen of lisinopril 5mg daily metoprolol 25mg at night Recommend DASH diet, heart-healthy lifestyle, exercise. Discussed the risks of hypertension. F/u in 6 months Assessment & Plan (10/02/2022 1:11 PM POST ADOPTION COORDINATOR): Bp in the office today BP Readings from Last 1 Encounters: 10/02/22 138/76 Continue current regimen Recommend DASH diet, heart-healthy lifestyle, exercise. Discussed the risks of hypertension. F/u in 6 months Assessment & Plan (10/18/2021 3:12 PM POST ADOPTION COORDINATOR): HPI: Condition is stable A&P: Discussed/ordered labs, encouraged healthy, low carbohydrate lifestyle and at least 150min/week of exercise, continue on Lisinopril 5 mg daily, metoprolol 25 mg daily Assessment & Plan (04/11/2021 4:41 PM CDT): HPI: Condition is at goal A&P: Discussed/ordered labs, encouraged healthy, low carbohydrate lifestyle and at least 150min/week of exercise, continue on lisinopril 5mg daily and metoprolol 25mg daily Assessment & Plan (04/28/2020 9:55 PM CDT): Discussed/ordered labs, Condition is stable encouraged healthy, low carbohydrate lifestyle and at least 150min/week of exercise, continue on metoprolol xl 25mg daily, lisinopril 5mg daily and aspirin 81mg daily Assessment & Plan (09/30/2019 2:16 PM POST ADOPTION COORDINATOR): Discussed/ordered labs, Condition is stable, encouraged healthy, low carbohydrate lifestyle and at least 150min/week of exercise, continue on lisinopril 5mg daily, metoprolol 25mg daily and aspirin 81mg Assessment & Plan (10/20/2018 10:46 PM POST ADOPTION COORDINATOR): Hypertension is worsening. Uncontrolled Pt. Has not been fully compliant with medications-he reports not being good at taking medications twice a day Medication changes per orders. Change to metoprolol XL (Toprol) Add Lisinopril 5 mg daily Pt. Is to take BP readings and document and send in thru Mychart or call in Blood pressure will be reassessed in 3 months. Lifestyle changes can help you control and prevent high blood pressure, even if you're taking blood pressure medication. Here's what you can do: Eat healthy foods. Eat a healthy diet. Try the Dietary Approaches to Stop Hypertension (DASH) diet, which emphasizes fruits, vegetables, whole grains, poultry, fish and low-fat dairy foods. Get plenty of potassium, which can help prevent and control high blood pressure. Eat less saturated fat and trans fat. Decrease the salt in your diet. A lower sodium level -- 1,500 milligrams (mg) a day -- is appropriate for people 51 years of age or older, and individuals of any age who are black or who have hypertension, diabetes or chronic kidney disease. Maintain a healthy weight. Keeping a healthy weight, or losing weight if you're overweight or obese, can help you control your high blood pressure and lower your risk of related health problems. If you're overweight, losing even 5 pounds (2.3 kilograms) can lower your blood pressure. Increase physical activity. Regular physical activity can help lower your blood pressure, manage stress, reduce your risk of several health problems and keep your weight under control. Limit alcohol. Even if you're healthy, alcohol can raise your blood pressure. If you choose to drink alcohol, do so in moderation. For healthy adults, that means up to one drink a day for women of all ages and men older than age 65, and up to two drinks a day for men age 65 and younger. One drink equals 12 ounces of beer, 5 ounces of wine or 1.5 ounces of 80-proof liquor. Don't smoke. Tobacco injures blood vessel negrete and speeds up the process of hardening of the arteries. If you smoke, ask your doctor to help you quit. Manage stress. Reduce stress as much as possible. Practice healthy coping techniques, such as muscle relaxation, deep breathing or meditation. Getting regular physical activity and plenty of sleep can help, too. Notify the office for blood pressure greater than 130/80 Restless legs syndrome 12/29/2013 Overview (12/14/2016): RLS (restless legs syndrome) Assessment & Plan (05/22/2024 7:09 AM CDT): Condition is stable A&P: Discussed/ordered labs, encouraged healthy, low carbohydrate lifestyle and at least 150min/week of exercise, continue Seeing Dr. Zaidi sleep medicine continue on CPAP, Mirapex 1.5 mg once daily at bedtime Assessment & Plan (06/06/2023 7:05 AM CDT): Condition is stable A&P: Discussed/ordered labs, encouraged healthy, low carbohydrate lifestyle and at least 150min/week of exercise, continue Seeing Dr. Zaidi sleep medicine continue on CPAP, Mirapex 1.5 mg once daily at bedtime Assessment & Plan (10/18/2021 4:27 PM POST ADOPTION COORDINATOR): HPI: Condition is stable A&P: Discussed/ordered labs, encouraged healthy, low carbohydrate lifestyle and at least 150min/week of exercise, continue Seeing Dr. Zaidi sleep medicine continue on CPAP, Mirapex 1.5 mg once daily at bedtime Assessment & Plan (04/11/2021 4:44 PM CDT): HPI: Condition is not at/near goal A&P: Discussed/ordered labs, encouraged healthy, low carbohydrate lifestyle and at least 150min/week of exercise, continue on mirapex 1.5mg up to 3 times daily. He has been using it about 2 times daily Assessment & Plan (04/28/2020 10:11 PM CDT): Discussed/ordered labs, Condition is stable encouraged healthy, low carbohydrate lifestyle and at least 150min/week of exercise, continue on mirapex and cpap Assessment & Plan (09/30/2019 4:16 PM POST ADOPTION COORDINATOR): Discussed/ordered labs, Condition is stable, encouraged healthy, low carbohydrate lifestyle and at least 150min/week of exercise, continue on mirapex 1.5mg three times daily Make sure you are drinking a lot of water Assessment & Plan (10/20/2018 10:40 PM POST ADOPTION COORDINATOR): Reports worsening RLS Needs to get updated sleep study and his TAJ controlled Will increase his Mirapex for now Check TSH, MG, Ferritin Activities in the evening that can help reduce mild symptoms of RLS include stretching, flexing, massaging affected areas, warm or cool baths, or light exercise. Substances known to cause or worsen RLS (e.g., caffeine, nicotine, and alcohol) should be minimized. Insomnia 12/29/2013 Overview (12/14/2016): Insomnia Assessment & Plan (10/18/2021 4:26 PM POST ADOPTION COORDINATOR): HPI: Condition is stable A&P: Discussed/ordered labs, encouraged healthy, low carbohydrate lifestyle and at least 150min/week of exercise, continue Seeing Dr. Zaidi sleep medicine continue on CPAP, Mirapex 1.5 mg once daily at bedtime Assessment & Plan (04/11/2021 4:42 PM CDT): HPI: Condition is worsening A&P: Discussed/ordered labs, encouraged healthy, low carbohydrate lifestyle and at least 150min/week of exercise, continue on cpap, refer to Dr. Zaidi (sleep med) Assessment & Plan (07/27/2020 9:27 AM POST ADOPTION COORDINATOR): HPI: Condition is worsening A&P: Discussed/ordered labs, encouraged healthy, low carbohydrate lifestyle and at least 150min/week of exercise, continue taking the buproprion. Use the alprazolam 0.25mg twice daily as needed for rescue only except tomorrow for the I want you take it. I want you to take the hydroxyzine 25mg at bedtime to help with sleep Discussed with patient that the alprazolam will be given for short term only. Discussed the risk of dependency, increased risk of dementia, discussed not to drive or operate machinery while using the medication as he could get a dui. I would like you to work on biofeedback. You can download an olegario on your phone. Examples would be headspace, calm, [id number], Personal Steve. Please work on this every day. It is similar to if you were a musician with a big performance coming up. You would practice your instrument every day so that on the day of the big performance, you don't even have to think about playing. This works the same way for using the biofeedback to bring you down from those high stress/anxiety moments. If you practice using the biofeedback skills daily, it will become a second nature and you will be able to help yourself more effectively. Assessment & Plan (04/28/2020 9:56 PM CDT): Discussed/ordered labs, Condition is stable encouraged healthy, low carbohydrate lifestyle and at least 150min/week of exercise, continue on cpap Assessment & Plan (09/30/2019 4:16 PM POST ADOPTION COORDINATOR): Pt states using cpap for 8 hours/night 7 nights/wk Pt states less daytime somnolence, feels better when using it. Would recommend the continued use of cpap Obstructive sleep apnea syndrome 07/06/2013 Overview (12/14/2016): TAJ (obstructive sleep apnea) Assessment & Plan (05/22/2024 7:09 AM CDT): Continue following with sleep medicine Continue with cpap machine Assessment & Plan (06/06/2023 5:13 PM CDT): Continue following with sleep medicine They recently increased his pressure Continue with cpap machine Assessment & Plan (10/02/2022 1:20 PM POST ADOPTION COORDINATOR): Continue following with sleep medicine They recently increased his pressure Assessment & Plan (10/18/2021 4:26 PM POST ADOPTION COORDINATOR): HPI: Condition is stable A&P: Discussed/ordered labs, encouraged healthy, low carbohydrate lifestyle and at least 150min/week of exercise, continue Seeing Dr. Zaidi sleep medicine continue on CPAP, Mirapex 1.5 mg once daily at bedtime Assessment & Plan (04/11/2021 4:43 PM CDT): HPI: Condition is worsening A&P: Discussed/ordered labs, encouraged healthy, low carbohydrate lifestyle and at least 150min/week of exercise, continue on cpap, refer to Dr. Zaidi (sleep med) Assessment & Plan (04/28/2020 10:10 PM CDT): Discussed/ordered labs, Condition is stable encouraged healthy, low carbohydrate lifestyle and at least 150min/week of exercise, continue on cpap Assessment & Plan (09/30/2019 4:15 PM POST ADOPTION COORDINATOR): Pt states using cpap for 8 hours/night 7 nights/wk Pt states less daytime somnolence, feels better when using it. Would recommend the continued use of cpap Assessment & Plan (10/20/2018 10:24 PM POST ADOPTION COORDINATOR): Hx of TAJ Last sleep study about 9 years ago Wakes up tired, fatigue, unrefreshed, still problems with sleep and snoring Needs updated sleep study TAJ may be increasing his symptoms of RLS at night Refer to Dr. Oro Resolved Problems Problem Noted Date Diagnosed Date Resolved Date JENNIFER (acute kidney injury) 04/13/2024 Acute appendicitis 10/07/2023 Encounter for follow-up exam ination after completed treatment for conditions other than malignant neoplasm 08/08/2023 05/22/2024 Assessment & Plan (08/08/2023 4:06 PM POST ADOPTION COORDINATOR): I personally reviewed H&P documentation by ED provider, CXR imaging, and ECG tracings from patient recent visit to [facility]. Medications reviewed and reconciled this visit Rectal pain 05/25/2020 10/18/2021 Overview (05/25/2020): Added automatically from request for surgery [id number] Encounter for screening colonoscopy 05/25/2020 04/11/2021 Overview (05/25/2020): Added automatically from request for surgery [id number] Numbness and tingling of lower extremity 12/09/2019 04/28/2020 Assessment & Plan (12/09/2019 8:44 PM CDT): Patient was concerned about possible blood clot. We discussed signs/symptoms of DVT which is not consistent with what he is having, however, we did discuss the limitations of a telephone visit. We also discussed risks/benefits of ordering lab testing and US testing during government quarantine. Pt opted not to do lab tests or further testing right now. We did discuss that his symptoms sounded like possibly neuropathy. He has only had symptoms for a less than a week. Ibuprofen helps with discomfort he is having. He will continue to monitor symptoms and update us with any new or worsening symptoms. Class 2 obesity due to exces s calories without serious comorbidity with body mass index (BMI) of 36.0 to 36.9 in adult 09/30/201902/2023 Assessment & Plan (04/03/2022 4:43 PM CDT): HPI: Condition is not at/near goal goal BMI <30 A&P: Healthy, high-protein, lower carbohydrate, lower fat lifestyle and exercise for 150min/week recommended Recommend tracking everything you put in your mouth on an olegario like Numecent Lower carb substitutions: Aldi carries a zero net carb bread If you are looking for whole potatoes, like to use in soup or new potato shape/flavor, radishes are a great replacement If you are looking for mashed potatoes, riced cauliflower in the frozen bag section are a great replacement For pasta, try using zucchini noodles, lay them out on a cookie sheet and pat dry with a tea towel to try to remove as much moisture as possible. Heat your pasta sauce on the stove and put the noodles in for 30-45 seconds. If you leave them in much longer they will become mushy [place] and/or coconut flour instead of regular flour For pizza dough, try fathead pizza dough recipe online. To get a crispy crust, bake on one side for 8-12 min, then flip over and bake on the other side for 8-12 min, then put toppings on and bake until the cheese on top of pizza melts chaffles recipe online For ice cream, try the brand Enlightened To replace coffee creamer and make it low carb, use heavy creamer with sugar free Torani sweetener For chips, try Whisps or pork rinds For yogurt, try Two Good salvadorean yogurt Use Pinterest for recipe ideas. Type in low carb... Hand Measurements: A fist or cupped hand = 1 cup 1 cup = 1??-2 servings of fruit juice 1 oz. of cold cereal 2 oz. of cooked cereal, rice or pasta 8 oz. of milk or yogurt A thumb = 1 oz. of cheese Consuming low-fat cheese helps you meet the required servings from the milk, yogurt and cheese group. 1?? oz. of low-fat cheese counts as 8 oz. of milk or yogurt. Handful = 1-2 oz. of snack food Thumb tip = 1 teaspoon Keep high-fat foods, such as peanut butter and mayonnaise, at a minimum. One teaspoon is equal to the end of your thumb, from the knuckle up. Three teaspoons equals 1 tablespoon. Palm = 3 oz. of meat Choose lean poultry, fish, shellfish and beef. One palm size portion equals 3 oz. for an adult and 1??-2 oz. for a child under 5. 1 tennis ball or a fist= 1/2 cup of fruit and vegetables Healthy diets include a variety of colorful fruits and vegetables every day. The secret to serving size is in your hand. Snacking can add up. Remember, 1 handful equals 1 oz. of nuts and small candies. For chips and pretzels, 2 handfuls equals 1 oz. Because hand sizes vary, compare your fist size to an actual measuring cup. Assessment & Plan (02/20/2022 4:13 PM CDT): HPI: Condition is not at/near goal goal BMI <30 A&P: Healthy, high-protein, lower carbohydrate, lower fat lifestyle and exercise for 150min/week recommended Recommend tracking everything you put in your mouth on an olegario like Numecent Lower carb substitutions: Aldi carries a zero net carb bread If you are looking for whole potatoes, like to use in soup or new potato shape/flavor, radishes are a great replacement If you are looking for mashed potatoes, riced cauliflower in the frozen bag section are a great replacement For pasta, try using zucchini noodles, lay them out on a cookie sheet and pat dry with a tea towel to try to remove as much moisture as possible. Heat your pasta sauce on the stove and put the noodles in for 30-45 seconds. If you leave them in much longer they will become mushy [place] and/or coconut flour instead of regular flour For pizza dough, try fathead pizza dough recipe online. To get a crispy crust, bake on one side for 8-12 min, then flip over and bake on the other side for 8-12 min, then put toppings on and bake until the cheese on top of pizza melts chaffles recipe online For ice cream, try the brand Enlightened To replace coffee creamer and make it low carb, use heavy creamer with sugar free Torani sweetener For chips, try Whisps or pork rinds For yogurt, try Two Good salvadorean yogurt Use Pinterest for recipe ideas. Type in low carb... Hand Measurements: A fist or cupped hand = 1 cup 1 cup = 1??-2 servings of fruit juice 1 oz. of cold cereal 2 oz. of cooked cereal, rice or pasta 8 oz. of milk or yogurt A thumb = 1 oz. of cheese Consuming low-fat cheese helps you meet the required servings from the milk, yogurt and cheese group. 1?? oz. of low-fat cheese counts as 8 oz. of milk or yogurt. Handful = 1-2 oz. of snack food Thumb tip = 1 teaspoon Keep high-fat foods, such as peanut butter and mayonnaise, at a minimum. One teaspoon is equal to the end of your thumb, from the knuckle up. Three teaspoons equals 1 tablespoon. Palm = 3 oz. of meat Choose lean poultry, fish, shellfish and beef. One palm size portion equals 3 oz. for an adult and 1??-2 oz. for a child under 5. 1 tennis ball or a fist= 1/2 cup of fruit and vegetables Healthy diets include a variety of colorful fruits and vegetables every day. The secret to serving size is in your hand. Snacking can add up. Remember, 1 handful equals 1 oz. of nuts and small candies. For chips and pretzels, 2 handfuls equals 1 oz. Because hand sizes vary, compare your fist size to an actual measuring cup. Assessment & Plan (10/18/2021 3:11 PM POST ADOPTION COORDINATOR): HPI: Condition is stable goal BMI <30 A&P: Healthy, high-protein, lower carbohydrate, lower fat lifestyle and exercise for 150min/week recommended Substitutions: Recommend tracking everything you put in your mouth on an olegario like Numecent or [employer] carries a zero net carb bread If you are looking for whole potatoes, like to use in soup or new potato shape/flavor, radishes are a great replacement If you are looking for mashed potatoes, riced cauliflower in the frozen bag section are a great replacement For pasta, try using zucchini noodles, lay them out on a cookie sheet and pat dry with a tea towel to try to remove as much moisture as possible. Heat your pasta sauce on the stove and put the noodles in for 30-45 seconds. If you leave them in much longer they will become mushy [place] and/or coconut flour instead of regular flour For pizza dough, try fathead pizza dough recipe online. To get a crispy crust, bake on one side for 8-12 min, then flip over and bake on the other side for 8-12 min, then put toppings on and bake until the cheese on top of pizza melts chaffles recipe online For ice cream, try the brand Enlightened To replace coffee creamer and make it low carb, use heavy creamer with sugar free Torani sweetener For chips, try Whisps or pork rinds For yogurt, try Two Good salvadorean yogurt Use Pinter[employer]irae for recipe ideas. Type in low carb... Assessment & Plan (04/11/2021 4:51 PM CDT): HPI: Condition is not at/near goal goal BMI <30 A&P: Healthy, high-protein, lower carbohydrate, lower fat lifestyle and exercise for 150min/week recommended Calories 2100 Protein 212 Fats 94 Carbs 106 Substitutions: Recommend tracking everything you put in your mouth on an olegario like Numecent or Guav[employer] Aldi carries a zero net carb bread If you are looking for whole potatoes, like to use in soup or new potato shape/flavor, radishes are a great replacement If you are looking for mashed potatoes, riced cauliflower in the frozen bag section are a great replacement For pasta, try using zucchini noodles, lay them out on a cookie sheet and pat dry with a tea towel to try to remove as much moisture as possible. Heat your pasta sauce on the stove and put the noodles in for 30-45 seconds. If you leave them in much longer they will become mushy [place] and/or coconut flour instead of regular flour For pizza dough, try fathead pizza dough recipe online. To get a crispy crust, bake on one side for 8-12 min, then flip over and bake on the other side for 8-12 min, then put toppings on and bake until the cheese on top of pizza melts chaffles recipe online For ice cream, try the brand Enlightened To replace coffee creamer and make it low carb, use heavy creamer with sugar free Torani sweetener For chips, try Whisps or pork rinds For yogurt, try Two Good salvadorean yogurt Use Pinterest for recipe ideas. Type in low carb... Assessment & Plan (07/27/2020 9:24 AM POST ADOPTION COORDINATOR): HPI: Condition is stable A&P: Healthy, low carbohydrate lifestyle and exercise for 150min/week recommended Substitutions: Aldi carries a zero net carb bread If you are looking for whole potatoes, like to use in soup or new potato shape/flavor, radishes are a great replacement If you are looking for mashed potatoes, riced cauliflower in the frozen bag section are a great replacement For pasta, try using zucchini noodles, lay them out on a cookie sheet and pat dry with a tea towel to try to remove as much moisture as possible. Heat your pasta sauce on the stove and put the noodles in for 30-45 seconds. If you leave them in much longer they will become mushy [place] and/or coconut flour instead of regular flour For pizza dough, try fathead pizza dough recipe online. To get a crispy crust, bake on one side for 8-12 min, then flip over and bake on the other side for 8-12 min, then put toppings on and bake until the cheese on top of pizza melts chaffles recipe online For ice cream, try the brand Enlightened Use Pinterest for recipe ideas. Type in low carb... Assessment & Plan (04/28/2020 9:55 PM CDT): Healthy, low carbohydrate lifestyle and exercise for 150min/week recommended Substitutions: Aldi carries a zero net carb bread If you are looking for whole potatoes, like to use in soup or new potato shape/flavor, radishes are a great replacement If you are looking for mashed potatoes, riced cauliflower in the frozen bag section are a great replacement For pasta, try using zucchini noodles, lay them out on a cookie sheet and pat dry with a tea towel to try to remove as much moisture as possible. Heat your pasta sauce on the stove and put the noodles in for 30-45 seconds. If you leave them in much longer they will become mushy [place] and/or coconut flour instead of regular flour For pizza dough, try fathead pizza dough recipe online. To get a crispy crust, bake on one side for 8-12 min, then flip over and bake on the other side for 8-12 min, then put toppings on and bake until the cheese on top of pizza melts chaffles recipe online For ice cream, try the brand Enlightened Use Pinterest for recipe ideas. Type in low carb... Assessment & Plan (09/30/2019 4:21 PM POST ADOPTION COORDINATOR): Healthy, low carbohydrate lifestyle and exercise for 150min/week recommended Generalized abdominal pain 06/27/2019 0 10/18/2021 Assessment & Plan (04/28/2020 10:06 PM CDT): CT abd/pelvis ordered Assessment & Plan (09/30/2019 4:15 PM POST ADOPTION COORDINATOR): He had CT scan last March which showed kidney stones Non-intractable cyclical vom iting without nausea 10/20/2018 04/28/2020 Assessment & Plan (09/30/2019 4:09 PM POST ADOPTION COORDINATOR): Having vomiting 1-2 times a day, none in the last week Pt taking ranitidine 300mg nightly and he doesn't eat after 9pm This has helped. This was happening all the time, but now it is about 1-2 times a week Continue on current meds, encouraged healthy diet and exercise Avoid trigger foods including: carbonated beverages, caffeine, spicy, fried foods, tomatoes, cucumbers, and mint Avoid eating/drinking anything for at least 2 hours before bed. Sleep with bed propped. Assessment & Plan (10/20/2018 10:29 PM POST ADOPTION COORDINATOR): Reports almost daily vomiting in the morning when he wakes up. No nausea associated with it. Unsure if it is related to his TAJ, hypersensitive gag reflex or if there is an enlarged tonsil/mass hitting the gag reflex Refer to ENT and GI I do believe he has GERD Screening for colon cancer 10/20/2018 0 04/28/2020 Nicotine dependence 07/12/2016 10/20/19 19 Overview (12/15/2016): Nicotine dependence, chewing tobacco, uncomplicated Chest pain due to myocardial ischemia 10/20/2018 Palpitation 09/30/2019 Assessment & Plan (10/20/2018 10:52 PM POST ADOPTION COORDINATOR): Recent chest pain, palpitations and went to ER 08/24/18 CXR normal Stress exercise Echo-Conclusions: Adequate stress test in regards to heart rate. No exercise induced chest pain. No definite ischemia on stress EKG. No Echocardiographic evidence of ischemia. Encounters Date Type Department Care Team Description 2024 Orders Only [facility] Primary [facility] at [address] [place] [id number] Shannan Galvan NP Cyst of joint of shoulder (Primary Dx); Tendon tear 2024 Telephone [facility] Primary [facility] at [address] [place] [phone] La Kearney MD 09/07/2024 6:36 AM POST ADOPTION COORDINATOR - 09/07/2024 11:59 PM POST ADOPTION COORDINATOR Hospital Encounter [facility] [address] [place] [address] Acute pain of right shoulder; Weakness of right arm Discharge Disposition: Discharge to home or self care 08/20/2024 10:11 AM POST ADOPTION COORDINATOR - 08/20/2024 11:59 PM POST ADOPTION COORDINATOR Hospital Encounter [facility] [address] [facility] [address] [place] [address] Wilfredo Mccormick MD Myalgia, other site (Primary Dx); Chronic right shoulder pain Discharge Disposition: Discharge to home or self care 08/20/2024 Orders Only [facility] Primary [facility] at [address] [place] [address] Shannan Galvan NP Acute pain of right shoulder (Primary Dx); Weakness of right arm 08/19/2024 10:30 AM POST ADOPTION COORDINATOR Office Visit [facility] Primary Care at [address] [place] [address] Shannan Galvan, ALAN Chronic midline low back pain without sciatica (Primary Dx); Degenerative disc disease, cervical; Acute pain of right shoulder; Weakness of right arm 08/17/2024 Telephone [facility] Care at [address] [place] [address] La Kearney MD Appointment Request from Last 3 Months Immunizations Name Administration Dates Next Due Influenza, Unspecified 08/19/2024(Deferr ed: Patient Refused),05/25/2024(Deferred: Patient Refused),10/07/2023(Deferred: Patient Refused),06/28/2023(Deferred: Patient Refused),04/09/2022(Deferred: Patient Refused),10/18/2021(Deferred: Patient Refused),04/09/2021(Deferred: Patient Refused),07/15/2020(Deferred: Patient Refused),07/02/2019(Deferred: Patient Refused),06/23/2019(Deferred: Patient decision) Tdap 09/30/2019,07/26/2017 ZOSTER Recombinant 10/27/2019,08/19/2019 Surgical History Surgery Date Site/Laterality Comments SHOULDER SURGERY Right CARPAL TUNNEL RELEASE Bilateral BIOPSY ABDOMEN RETROPERITONEAL 02/06/2019 N/A BAND HEMORRHOIDECTOMY KNEE ARTHROSCOPY 02/07/2006 - 03/08/2006 Right rt ac resection COLONOSCOPY 08/26/2020 1st PROSTATE SURGERY APPENDECTOMY 10/07/2023 Medical History Medical History Date Comments Depression Depression Hypertension Anxiety disorder Anxiety Sleep apnea Erectile dysfunction GERD (gastroesophageal reflux disease) Hemorrhoids Palpitation Hyperlipidemia Generalized abdominal pain 06/27/2019 Rectal pain 05/25/2020 Added automatica lly from request for surgery [id number] Hypoglycemia Enlarged prostate Urinary retention Arrhythmia Family History Medical History Relation Name Comments Cancer Father lung Throat cancer Father Cancer Mother lung Hypertension Mother Leukemia Mother Relation Name Status Comments Father Mother Social History Tobacco Use Types Packs/Day Years Used Date Smoking Tobacco: Never Smokeless Tobacco: Former Chew Quit: 08/2018 Tobacco Cessation:Counseling Given: Not Answered Comments:chews, not interested in counseling Alcohol Use Standard Drinks/Week Comments [...] on file 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 POST ADOPTION COORDINATOR Gender Identity Not on file Sexual Orientation Not on file Obstetrics History Last Filed Vital Signs Vital Sign Reading Time Taken Comments Blood Pressure 140/94 08/20/2024 10:48 AM POST ADOPTION COORDINATOR Pulse 96 08/20/2024 10:48 AM POST ADOPTION COORDINATOR Temperature 36.6 ??C (97.9 ??F) 08/19/2024 10:[address] Respiratory Rate 18 08/20/2024 10:48 AM POST ADOPTION COORDINATOR Oxygen Saturation 96% 08/20/2024 10:48 AM POST ADOPTION COORDINATOR Inhaled Oxygen Concentration - - Weight 128.8 kg (284 lb) 08/19/2024 10:21 AM POST ADOPTION COORDINATOR Height 188 cm (6' 2 ) 08/19/2024 10:21 AM POST ADOPTION COORDINATOR Body Mass Index 36.46 08/19/2024 10:21 AM POST ADOPTION COORDINATOR Plan of Treatment Health Maintenance Due Date Last Done Comments Hepatitis B Screening 1986 Prostate Cancer Screening-PSA 12/14/2023 12/13/2021, 10/21/2018 Influenza Vaccine (#1) 2025 Postp oned from 05/10/2024 (Patient declined, but will receive in the future) Regular Well Visit/Exam 18-64 05/25/2025 05/25/2024, 06/06/2023 Depression Screening 08/20/2025 08/20/2024, 08/20/2024, 05/25/2024, Additional history exists DTaP/Tdap/Td Vaccine (3 - Td or Tdap) 09/30/2029 09/30/2019, 07/26/2017 Colon Cancer Screening-Colonoscopy 08/26/2030 08/26/2020 Zoster Vaccine Completed 10/27/2019, 08/19/2019 Colon Cancer Screening-CT Colonography Discontinued 08/26/2020 Colon Cancer Screening-DNA Stool Discontinued 08/26/2020 Colon Cancer Screening-FIT Discontinued 08/26/2020 Colon Cancer Screening-Sigmoidoscopy Discontinued 08/26/2020 Hepatitis C Screening Completed 06/08/2023 Pneumococcal vaccine <65 Aged Out No longer eligible based on patient's age to complete this topic Medical Devices Implanted Type Area Earth Moving Machine Operator Device Identifier Shelf Expiration Date Model / Serial / Lot [employer]win Contour 6fr 28cm Taper Tip Bladder Oscar Low Profile Large Inner Latex Free [id number] - [id number] Implanted:Qty: 1 on 04/13/2024 by Lalito Irene MD at [facility] Left: Ureter [employer]win 10/16/2026 [id number] / / [id number] Procedures Procedure Name Priority Date/Time Associated Diagnosis Comments MRI SHOULDER RIGHT WO CONTRAST Schedule Routine, Read Routine (OP Routine) 09/07/2024 7:17 AM POST ADOPTION COORDINATOR Acute pain of right shoulder Weakness of right arm HEPATITIS C ANTIBODY Routine 06/08/2023 8:33 AM CDT Mixed hyperlipidemia Essential hypertension Need for hepatitis C screening test IGT (impaired glucose tolerance) PSA SCREEN Routine 12/13/2021 9:14 AM CDT Prostate cancer screening COLONOSCOPY 08/26/2020 7:40 AM POST ADOPTION COORDINATOR from Last 3 Months or Most Recently Relevant to Health Maintenance Results * MRI Shoulder Right WO Contrast (09/07/2024 7:17 AM POST ADOPTION COORDINATOR) Anatomical Region Laterality Modality Upper Extremities Right Magnetic Reson ance 09/07/2024 7:20 AM POST ADOPTION COORDINATOR Narrative 09/07/2024 7:26 AM POST ADOPTION COORDINATOR EXAM DESCRIPTION: MRI SHOULDER RIGHT WO CONTRAST REASON FOR STUDY: Shoulder pain; Shoulder weakness ?? No known injury. Chronic RIGHT shoulder pain, increased 3 months ago. He stated going hunting 3 days in a row and on the 1st day he was able to lift his backpack up and hang it on a hook with his right hand/arm, but that on the 2nd and 3rd days he could ?? not lift it without assistance from his left hand as well. ??He describes the pain as an intermittent, sharp pain and states that he does not often had to take medication for the same but that it does sometimes flare-up at nighttime and we can from asleep. TECHNIQUE: Multiplanar, multisequence MRI of the ??right ??shoulder was performed ??without contrast. ?? COMPARISON: 05/25/2024 FINDINGS: There is a type 1 acromion. The coracoacromial ligament is thin. ??Prior distal clavicular excision has been performed. ??There is mild subacromial subdeltoid bursitis. There is minimal increased signal involving the infraspinatus. ??The subscapularis is intact. The biceps tendon is located within the bicipital groove. ??There is a split tear of the intra-articular biceps tendon. ??The supraspinatus and infraspinatus cuff tendons are intact without evidence of a discrete tear. On this non arthrographic evaluation, there is a tear of the superior glenoid labrum at the 11:00 position. ??There is a 2.5 x 2.5 x 2.5 cm multi lobular paralabral cyst extending into the spinoglenoid notch. ??The labrum below the equator is normal. There is mild glenohumeral joint chondrosis. ??A physiologic amount of fluid is present within the joint space. There are no loose bodies. ?? IMPRESSION: Tear of the right superior glenoid labrum at the 11:00 position with a 2.5 x 2.5 x 2.5 cm multi lobular paralabral cyst extending into the spinoglenoid notch. ??There is minimal increased signal of the infraspinatus which can be associated with subacute denervation. Intact right rotator cuff. Split tear of the intra-articular right biceps tendon. Mild right glenohumeral joint chondrosis. Prior right distal clavicular excision with mild subacromial subdeltoid bursitis. THIS IS AN ELECTRONICALLY VERIFIED FINAL REPORT 09/07/2024 7:26 AM - Electronically signed by ??Michael Xiong M.D. MF: CHANI D: ??09/07/2024 7:26 AM T: ??09/07/2024 7:26 AM Report ID: [id number] Reading Location: ??[id number] Procedure Note Michael Xiong MD - 09/07/2024 EXAM DESCRIPTION: MRI SHOULDER RIGHT WO CONTRAST REASON FOR STUDY: Shoulder pain; Shoulder weakness No known injury. Chronic RIGHT shoulder pain, increased 3 months ago. He stated going hunting 3 days in a row and on the 1st day he was able tolift his backpack up and hang it on a hook with his right hand/arm, but that onthe 2nd and 3rd days he could not lift it without assistance from his lefthand as well. He describes the pain as an intermittent, sharp pain and statesthat he does not often had to take medication for the same but that it does sometimes flare-up at nighttime and we can from asleep. TECHNIQUE: Multiplanar, multisequence MRI of the right shoulder was performed without contrast. COMPARISON: 05/25/2024 FINDINGS: There is a type 1 acromion. The coracoacromial ligament is thin. Priordistal clavicular excision has been performed. There is mild subacromialsubdeltoid bursitis. There is minimal increased signal involving the infraspinatus. The subscapularis is intact. The biceps tendon is located within the bicipital groove. There is a split tear of the intra-articular biceps tendon. The supraspinatus and infraspinatus cuff tendons are intact without evidenceof a discrete tear. On this non arthrographic evaluation, there is a tear of the superiorglenoid labrum at the 11:00 position. There is a 2.5 x 2.5 x 2.5 cm multi lobular paralabral cyst extending into the spinoglenoid notch. The labrum belowthe equator is normal. There is mild glenohumeral joint chondrosis. Aphysiologic amount of fluid is present within the joint space. There are no loosebodies. IMPRESSION: Tear of the right superior glenoid labrum at the 11:00 position with a2.5 x 2.5 x 2.5 cm multi lobular paralabral cyst extending into the spinoglenoid notch. There is minimal increased signal of the infraspinatus which canbe associated with subacute denervation. Intact right rotator cuff. Split tear of the intra-articular right biceps tendon. Mild right glenohumeral joint chondrosis. Prior right distal clavicular excision with mild subacromial subdeltoid bursitis. THIS IS AN ELECTRONICALLY VERIFIED FINAL REPORT 09/07/2024 7:26 AM - Electronically signed by Michael Xiong M.D. MF: CHANI Report ID: [id number] Reading Location: [place] [address] Shannan Galvan NP [facility] MRI PROCEDURES Final Result * Hepatitis C antibody Blood (06/08/2023 8:33 AM CDT) Hep C Ab Nonreactive Nonreactive Comment: Interpretive Data Nonreactive: Antibodies to HCV not detected. Does NOT exclude the possibility of recent exposure to HCV. Equivocal: Equivocal for HCV antibodies. Supplemental molecular testing will be automatically performed to determine infection status in accordance with current CDC screening recommendations. ?? Reactive: Positive for HCV antibodies. ??This may represent current or past HCV infection. Supplemental molecular testing will be automatically performed to determine ??current infection status in accordance with current CDC screening recommendations. Interpretive data was last revised on 2019. Testing performed by: [facility], [address] [place] [address]., [id number] Blood 06/08/2023 8:33 AM CDT 06/08/2023 11:10 AM CDT Narrative [facility] - 06/08/2023 11:46 AM CDT fasting us La Kearney MD LAB MICROBIOL OGY - GENERAL ORDERABLES Edited Result - Final [facility] 1 [facility] Department [place] [address] * PSA screen (12/13/2021 9:14 AM CDT) PSA-Total 3.65 <=3.90 ng/mL [facility] ([facility]) Comment: Interpretive Data ?AGE ? SEX ?REFERENCE INTERVAL 0 minutes-150 years ?Female ?None 0 minutes-49 years ? Male ?None ? 50-59 years ? Male ?0-3.90 ? 60-69 years ? Male ?0-5.40 ? 70-79 years ? Male ?0-6.20 ? 80-150 years ?Male ?0-6.20 Current interpretive data last revised 2018. Testing performed by: [facility], [address] [place] [address], [place]., [address] Blood 12/13/2021 9:14 AM CDT 12/13/2021 2:02 PM CDT us Laura Tapia PIG CONVEYOR OPERATOR LAB BLOOD ORDERABLES Final Result [facility] 1 [facility] Department [place] [address] * COLONOSCOPY (08/26/2020 7:40 AM POST ADOPTION COORDINATOR) Anatomical Region Laterality Modality Other Narrative Procedure Note Antoinette Sawyer MD - 08/26/2020 7:40 AM CST [facility] Patient Name: Jaden De La Torre Procedure Date: 08/26/2020 7:40 AM Date of : 1970 Admit Type: Outpatient Age: 49 Gender: Male Attending MD: Antoinette Sawyer M.D. Room: [facility] ENDOSCOPY ROOM 1 Note Status: Finalized Patient Profile: This is a 49 year old male. No family history ofcolon cancer. No specific GI complaint. Procedure: Colonoscopy Indications: Screening for colorectal malignant neoplasm, This is the patient's first colonoscopy Referring MD: Laura Tapia, F.N.P. Providers: Antoinette Sawyer M.D. Impression: - The entire examined colon is normal. - Internal hemorrhoids. - No specimens collected. Recommendation: - Repeat colonoscopy in 10 years for screeningpurposes. - Continue present medications. Medicines: Monitored Anesthesia Care Complications: No immediate complications. Estimated Blood Loss: Estimated blood loss: none. Procedure: Pre-Anesthesia Assessment: - Prior to the procedure, a History and Physical was performed, and patient medications and allergieswere reviewed. The patient's tolerance of previous anesthesia was also reviewed. The risks and benefitsof the procedure and the sedation options and riskswere discussed with the patient. All questions were answered, and informed consent was obtained. Prior Anticoagulants: The patient has taken no previous anticoagulant or antiplatelet agents. ASA Grade Assessment: II - A patient with mild systemicdisease. After reviewing the risks and benefits, the patientwas deemed in satisfactory condition to undergo the procedure. The benefits, risks and alternatives of theprocedure and sedation were discussed and informed consent was obtained. All questions were answered. Please referto the signed informed consent document in the medical record. The scope was passed under direct vision.The Pediatric Colonoscope PCF-H190L [id number] was introduced through the anus and advanced to the the cecum, identified by appendiceal orifice andileocecal valve. Bowel prep was administered using a splitdose. The bowel preparation used was Miralax. The bowel preparation used was bisacodyl tablets. The qualityof the bowel preparation was excellent. Findings: The perianal and digital rectal examinations were normal. The cecum appeared normal. The colon (entire examined portion) appeared normal. No polyps and no mass lesions noted. Internal hemorrhoids were found during retroflexion. The hemorrhoids were medium-sized. Electronically signed by Antoinette Sawyer M.D. Antoinette Sawyer M.D. 08/26/2020 8:43:14 AM Number of Addenda: 0 Note Initiated On: 08/26/2020 7:40 AM Procedure Code(s): --- Professional --- 05927, Colonoscopy, flexible; diagnostic, including collection of specimen(s) by brushing or washing, when performed (separateprocedure) Diagnosis Code(s): --- Professional --- Z12.11, Encounter for screening for malignant neoplasm of colon K64.8, Other hemorrhoids CPT copyright 2017 [employer]. All rights reserved. The codes documented in this report are preliminary and upon shoemaking cutter reviewmay be revised to meet current compliance requirements. Recognized by the [employer] for promoting quality in endoscopy Antoinette Sawyer MD ENDOSCOPY PROCEDURES Final Result from Last 3 Months or Most Recently Relevant to Health Maintenance Insurance 1000memories OOS 1000memories OOS [facility] CHOICE OOS Advance Directives For more information, please contact: [phone] * Full Code (Latest Code Status on File) Date Activated Date Inactivated Comments 04/13/2024 9:21 AM 04/14/2024 4:51 PM * Full Code Date Activated Date Inactivated Comments 10/07/2023 8:16 PM 10/08/2023 6:53 PM * Full Code Date Activated Date Inactivated Comments 08/26/2020 7:28 AM 08/26/2020 1:37 PM * Full Code Date Activated Date Inactivated Comments 08/26/2020 7:28 AM 08/26/2020 7:28 AM * Full Code Date Activated Date Inactivated Comments 02/06/2019 12:01 PM 02/07/2019 4:36 AM Care Teams Land Management Supervisor Relationship Specialty Start Date End Date La Kearney MD [address] [place] [address] DR LUCAS [address] [place] [address] PCP - General Family Medicine 10/02/22 Mariaelena Zaidi MD Consulting Physician Sleep Medicine 07/12/21
--- OUTSIDE RECORDS SUMMARY | 2024-09-17 12:46 | XMS_ITS | Encounter Summary ---
Author Organization [facility] Healthcare Address [address] [place] [address] Care Team Providers Care Health Coordinator Name Role Phone Mariaelena Zaidi MD Unavailable La Kearney MD Primary Care Provide r Reason for Referral * Consultation (Routine) - Closed Specialty Diagnoses / Procedures Referred By Conttom t Referred To Contact Physical Therapy Diagnoses Chronic midline thoracic back pain La Kearney MD [address] [place] [address] [address] [place] [address] Phone: tel: fax: External Order Referral ID Status Reason Start Date Expiration Date V isits Requested Visits Authorized [id number] Closed Evaluate and Treat 06/03/2024 07/03/2025 24 24 Question Answer PTRFR PT Evaluate and Treat Therapy options discussed with patient? 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 Gender Identity Not on file Sexual Orientation Not on file documented as of this encounter Plan of Treatment Scheduled Referrals Name Type Priority Associated Diagnoses Order Schedule Ambulatory referral order to Physical Therapy - Outpatient Referral Routine Chronic midline thoracic back pain Expected: 06/17/2024 (Approximate), Expires: 06/03/2025 documented as of this encounter Visit Diagnoses Diagnosis Chronic midline thoracic back pain- Primary documented in this encounter Care Teams Health Coordinator Relationship Specialty Start Date End Date La Kearney MD [address] [facility] [address] [place] [address] PCP - General Family Medicine 10/02/22 Mariaelena Zaidi MD Consulting Physician Sleep Medicine 07/12/21 documented as of this encounter
--- OUTSIDE RECORDS SUMMARY | 2024-09-17 12:46 | XMS_ITS | Encounter Summary ---
Author Organization [facility] Healthcare Address [address] [place] [address] Care Team Providers Care Band Scroll Saw Operator Name Role Phone Mariaelena Zaidi MD Unavailable La Kearney MD Primary Care Provide r Reason for Referral * MRI/CAT/PET Scan (Routine) - Closed Specialty Diagnoses / Procedures Referred By Zaida camacho Referred To Contact Radiology Diagnoses Acute pain of right shoulder Weakness of right arm Procedures MRI Shoulder Right WO Contrast Shannan Galvan NP [address] [facility] [address] [place] [address] Phone: tel: fax: [address] [phone] Referral ID Status Reason Start Date Expiration Date Visits Re quested Visits Authorized [id number] Closed 08/20/2024 09/19/[address] FIRE FIGHTERS DISPATCHER Reason for Visit * MRI/CAT/PET Scan (Routine) - Closed Specialty Diagnoses / Procedures Referred By Zaida camacho Referred To Contact Radiology Diagnoses Acute pain of right shoulder Weakness of right arm Procedures MRI Shoulder Right WO Contrast Shannan Galvan NP [address] [facility] [address] [place] [address] Phone: tel: fax: [address] [phone] Referral ID Status Reason Start Date Expiration Date Visits Re quested Visits Authorized [id number] Closed 08/20/2024 09/19/2025 1 1 Encounter Details Date Type Department Care Team (Latest Contact Info) Description 09/07/2024 6:36 AM FOREST FIRE FIGHTERS DISPATCHER - 09/07/2024 11:59 PM FOREST FIRE FIGHTERS DISPATCHER Hospital Encounter [address] [address] Acute pain of right shoulder; Weakness of [...] on file 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 Gender Identity Not on file Sexual Orientation Not on file documented as of this encounter Medications at Time of Discharge buPROPion XL (WELLBUTRIN XL) 300 mg 24 hr tablet TAKE 1 TABLET EVERY MORNING 90 tablet 1 09/04/2024 lisinopriL (PRINIVIL,ZESTRIL) 5 mg tabletIndications:Es sential hypertension [...] total) by mouth nightly 30 capsule 04/14/2024 documented as of this encounter Discharge Disposition Disposition Code Departure Means Destination Discharge to home or self care documented in this encounter Plan of Treatment Not on file documented as of this encounter Procedures Procedure Name Priority Date/Time Associated Diagnosis Comments MRI SHOULDER RIGHT WO CONTRAST Schedule Routine, Read Routine (OP Routine) 09/07/2024 7:17 AM FOREST FIRE FIGHTERS DISPATCHER Acute pain of right shoulder Weakness of right arm documented in this encounter Results * MRI Shoulder Right WO Contrast (09/07/2024 7:17 AM FOREST FIRE FIGHTERS DISPATCHER) Anatomical Region Laterality Modality Upper Extremities Right Magnetic Reson ance 09/07/2024 7:20 AM FOREST FIRE FIGHTERS DISPATCHER Narrative 09/07/2024 7:26 AM FOREST FIRE FIGHTERS DISPATCHER EXAM DESCRIPTION: MRI SHOULDER RIGHT WO CONTRAST [...] AM T: ??09/07/2024 7:26 AM Report ID: [id number] Reading Location: ??[id number] Procedure Note Michael Xiong MD - 09/07/2024 [...] Michael Xiong M.D. MF: CHANI Report ID: [id number] Reading Location: [place] [address] Shannan Galvan NP IM MRI PROCEDURES Final Result documented in this encounter Visit Diagnoses Diagnosis Acute pain of right shoulder Weakness of right arm Other musculoskeletal symptoms referable to limbs documented in this encounter Care Teams Band Scroll Saw Operator Relationship Specialty Start Date End Date La Kearney MD [address] [place] [address] [address] PCP - General Family Medicine 10/02/22 Mariaelena Zaidi MD Consulting Physician Sleep Medicine 07/12/21 documented as of this encounter
--- OUTSIDE RECORDS SUMMARY | 2024-09-17 12:46 | XMS_ITS | Encounter Summary ---
Author Organization [facility] Healthcare Address [address] [place] [address] Care Team Providers Care Sleeve Presser Operator Name Role Phone Mariaelena Zaidi MD Unavailable La Kearney MD Primary Care Provide r Reason for Referral * MRI/CAT/PET Scan (Routine) - Closed Specialty Diagnoses / Procedures Referred By Contac t Referred To Contact Radiology Diagnoses Acute pain of right shoulder Weakness of right arm Procedures MRI Shoulder Right WO Contrast Shannan Galvan NP [address] [facility] [address] [place] [address] Phone: tel: fax: [address] [phone] Referral ID Status Reason Start Date Expiration Date Visits Re quested Visits Authorized [id number] Closed 08/20/2024 09/19/2025 1 1 EDICAL EQUIPMENT SUPPORT SPECIALIST Encounter Details Date Type Department Care Team (Late st Contact Info) Description 08/20/2024 Orders Only [facility] Medical Group Primary Care at [address] [place] [phone] Shannan Galvan NP [address] 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 Gender Identity Not on file Sexual Orientation Not on file documented as of this encounter Plan of Treatment Not on file documented as of this encounter Results * MRI Shoulder Right WO Contrast (09/07/2024 7:17 AM BIOMEDICAL EQUIPMENT SUPPORT SPECIALIST) Anatomical Region Laterality Modality Upper Extremities Right Magnetic Reson ance 09/07/2024 7:20 AM BIOMEDICAL EQUIPMENT SUPPORT SPECIALIST Narrative 09/07/2024 7:26 AM BIOMEDICAL EQUIPMENT SUPPORT SPECIALIST EXAM DESCRIPTION: MRI SHOULDER RIGHT WO CONTRAST [...] AM T: ??09/07/2024 7:26 AM Report ID: [id number] Reading Location: ??[id number] Procedure Note Michael Xiong MD - 09/07/2024 [...] Michael Xiong M.D. MF: CHANI Report ID: [id number] Reading Location: [id number] [place] Shannan Galvan ANTIQUE AUTO MUSEUM MAINTENANCE WORKER IMG MRI PROCEDURES Final Result documented in this encounter Visit Diagnoses Diagnosis Acute pain of right shoulder- Primary Weakness of right arm Other musculoskeletal symptoms referable to limbs Acute pain of right shoulder Weakness of right arm Other musculoskeletal symptoms referable to limbs documented in this encounter Care Teams Sleeve Presser Operator Relationship Specialty Start Date End Date La Kearney MD [address] [facility] [address] [address] PCP - General Family Medicine 10/02/22 Mariaelena Zaidi MD Consulting Physician Sleep Medicine 07/12/21 documented as of this encounter
--- OUTSIDE RECORDS SUMMARY | 2024-09-17 12:46 | XMS_ITS | Referral Summary ---
Author Organization [facility] Address [address] [place] [address] Care Team Providers Care Fitness Worker Name Role Phone Mariaelena Zaidi MD Unavailable La Kearney MD Primary Care Provide r Encounters Date Type Department Care Team Description 2024 Orders Only [facility] Primary Care at [address] [place] [address] Shannan Galvan NP Cyst of joint of shoulder (Primary Dx); Tendon tear 2024 Telephone [facility] Primary Care at [address] [place] [phone] La Kearney MD 09/07/2024 6:36 AM HOME APPLIANCE WASHING MACHINE MECHANIC - 09/07/2024 11:59 PM HOME APPLIANCE WASHING MACHINE MECHANIC Hospital Encounter [facility] [address] [place] [address] Acute pain of right shoulder; Weakness of right arm Discharge Disposition: Discharge to home or self care 08/20/2024 Orders Only [facility] Primary Care at [address] [place] [address] Shannan Galvan NP Acute pain of right shoulder (Primary Dx); Weakness of right arm 08/20/2024 10:11 AM HOME APPLIANCE WASHING MACHINE MECHANIC - 08/20/2024 11:59 PM HOME APPLIANCE WASHING MACHINE MECHANIC Hospital Encounter [facility] [address] [facility] [address], [address] [place] [address] Wilfredo Mccormick MD Myalgia, other site (Primary Dx); Chronic right shoulder pain Discharge Disposition: Discharge to home or self care 08/19/2024 10:30 AM HOME APPLIANCE WASHING MACHINE MECHANIC Office Visit [facility] Primary Care at [address] [place] [phone] Shannan Galvan NP Chronic midline low back pain without sciatica (Primary Dx); Degenerative disc disease, cervical; Acute pain of right shoulder; Weakness of right arm 08/17/2024 Telephone [facility] Primary Care at [address] [place] [phone] La Kearney MD Appointment Request from Last 3 Months Allergies No known active allergies Medications tadalafiL [...] mg total) by mouth daily 30 tablet 024 Active tamsulosin (FLOMAX) 0.4 mg extended release [...] 10/07/2023 Assessment & Plan (10/07/2023 1:20 PM HOME APPLIANCE WASHING MACHINE MECHANIC): New concern Not at goal Will get [...] 10/07/2023 Assessment & Plan (10/15/2023 9:14 AM HOME APPLIANCE WASHING MACHINE MECHANIC): Pathology has been reviewed with the patient. [...] 08/08/2023 Assessment & Plan (08/08/2023 4:00 PM HOME APPLIANCE WASHING MACHINE MECHANIC): Acute problem- this is a recurring problem Seen in ED for intermittent palpations Follow up with cardiology as scheduled Continue to monitor ECG: Vent Rate: 108 bpm RR Interval: 553 msec CO Interval: 163 msec QRS Duration: 97 msec QT Interval: 383 msec QTC Interval: 446 msec P-R-T Gypsy: 46 - 2 - 13 degrees IMPRESSION: SINUS TACHYCARDIA WITH FREQUENT SUPRAVENTRICULAR PREMATURE COMPLEXES Compared to prior EKG, heart rate is now faster and PVCs are new. (Electronically Signed By: Dr Anoop Pablo) ECG: Vent Rate: 66 bpm RR Interval: 898 msec CO Interval: 170 msec QRS Duration: 99 msec QT Interval: 399 msec QTC Interval: 413 msec P-R-T Gypsy: 45 - 14 - 29 degrees IMPRESSION: [...] annual Assessment & Plan (10/02/2022 1:19 PM HOME APPLIANCE WASHING MACHINE MECHANIC): Med list and problem list reviewed Benign prostatic hyperplasia with weak urinary s tream 06/12/2022 Overview (06/12/2022): Added automatically from request for surgery [id number] Assessment & Plan (05/22/2024 7:06 AM CDT): Stable / clinically quiescent. Will continue to monitor. Managed by urology On flomax cialis and oxybutynin Assessment & Plan (06/06/2023 7:03 AM CDT): Stable / clinically quiescent. Will continue to monitor. Vitamin D deficiency 12/13/2021 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 Assessment & Plan (10/18/2021 4:41 PM HOME APPLIANCE WASHING MACHINE MECHANIC): Discussed with pt that he will need [...] daily Assessment & Plan (10/18/2021 3:11 PM HOME APPLIANCE WASHING MACHINE MECHANIC): Patient reiterated no suicidal thoughts at this [...] bedtime Assessment & Plan (07/27/2020 9:25 AM HOME APPLIANCE WASHING MACHINE MECHANIC): HPI: Condition is new A&P: Discussed/ordered labs, [...] your phone. Examples would be headspace, calm, [id number], Personal Steve. Please work on this every [...] 03/30/2019 Assessment & Plan (10/18/2021 3:14 PM HOME APPLIANCE WASHING MACHINE MECHANIC): Patient reiterated no suicidal thoughts at this [...] needed. Assessment & Plan (09/30/2019 4:20 PM HOME APPLIANCE WASHING MACHINE MECHANIC): Pt's says the buproprion 150mg daily is [...] month Assessment & Plan (10/18/2021 3:13 PM HOME APPLIANCE WASHING MACHINE MECHANIC): HPI: Condition is stable A&P: Discussed/ordered labs, encouraged healthy, low carbohydrate lifestyle and at least 150min/week of exercise, Meloxicam 15 mg daily Assessment & Plan (04/11/2021 4:43 PM CDT): HPI: Condition is stable A&P: Discussed/ordered labs, encouraged healthy, low carbohydrate lifestyle and at least 150min/week of exercise, no meds needed at this time. Laryngopharyngeal reflux (LPR) 10/29/2018 Assessment & Plan (10/18/2021 3:15 PM HOME APPLIANCE WASHING MACHINE MECHANIC): HPI: Condition is stable no meds at this time, encouraged healthy diet and exercise Avoid trigger foods including: carbonated beverages, caffeine, spicy, fried foods, tomatoes, cucumbers, mint, and acidic fruits/juices like orange/lemon/grapefruit. Avoid eating/drinking anything for at least 2 hours before bed. Sleep with bed propped. 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 use of PPI with pt, would like [...] of cdif and vit B12 deficiency with equipment operator intermodal yard use of PPI with pt, would like to remain on medication at this time Assessment & Plan (09/30/2019 2:17 PM HOME APPLIANCE WASHING MACHINE MECHANIC): Discussed/ordered labs, Condition is stable, encouraged healthy, low carbohydrate lifestyle and at least 150min/week of exercise, continue on ranitidine 300mg nightly Assessment & Plan (10/29/2018 4:10 PM HOME APPLIANCE WASHING MACHINE MECHANIC): Start Zantac 300 mg at bedtime Increase caffeine free and soda free fluid daily LPR discussed and Handout provided Hyperlipidemia 07/12/2016 Overview (12/15/2016): Hyperlipidemia Assessment & Plan (05/22/2024 7:04 AM CDT): Stable Continue pravastatin 40mg daily Assessment & Plan (06/06/2023 7:02 AM CDT): Stable Continue pravastatin 40mg daily Assessment & Plan (10/18/2021 3:12 PM HOME APPLIANCE WASHING MACHINE MECHANIC): HPI: Condition is stable A&P: Discussed/ordered labs, [...] daily Assessment & Plan (09/30/2019 2:17 PM HOME APPLIANCE WASHING MACHINE MECHANIC): Discussed/ordered labs, Condition is stable, encouraged healthy, low carbohydrate lifestyle and at least 150min/week of exercise, continue on pravastatin 40mg daily Assessment & Plan (10/20/2018 10:22 PM HOME APPLIANCE WASHING MACHINE MECHANIC): Lipid abnormalities are unchanged. Nutritional counseling was [...] months Assessment & Plan (08/08/2023 3:45 PM HOME APPLIANCE WASHING MACHINE MECHANIC): Chronic problem-controlled with current regimen Continue metoprolol [...] months Assessment & Plan (10/02/2022 1:11 PM HOME APPLIANCE WASHING MACHINE MECHANIC): Bp in the office today BP Readings from Last 1 Encounters: 10/02/22 138/76 Continue current regimen Recommend DASH diet, heart-healthy lifestyle, exercise. Discussed the risks of hypertension. F/u in 6 months Assessment & Plan (10/18/2021 3:12 PM HOME APPLIANCE WASHING MACHINE MECHANIC): HPI: Condition is stable A&P: Discussed/ordered labs, [...] daily Assessment & Plan (09/30/2019 2:16 PM HOME APPLIANCE WASHING MACHINE MECHANIC): Discussed/ordered labs, Condition is stable, encouraged healthy, low carbohydrate lifestyle and at least 150min/week of exercise, continue on lisinopril 5mg daily, metoprolol 25mg daily and aspirin 81mg Assessment & Plan (10/20/2018 10:46 PM HOME APPLIANCE WASHING MACHINE MECHANIC): Hypertension is worsening. Uncontrolled Pt. Has not [...] bedtime Assessment & Plan (10/18/2021 4:27 PM HOME APPLIANCE WASHING MACHINE MECHANIC): HPI: Condition is stable A&P: Discussed/ordered labs, [...] cpap Assessment & Plan (09/30/2019 4:16 PM HOME APPLIANCE WASHING MACHINE MECHANIC): Discussed/ordered labs, Condition is stable, encouraged healthy, low carbohydrate lifestyle and at least 150min/week of exercise, continue on mirapex 1.5mg three times daily Make sure you are drinking a lot of water Assessment & Plan (10/20/2018 10:40 PM HOME APPLIANCE WASHING MACHINE MECHANIC): Reports worsening RLS Needs to get updated [...] Insomnia Assessment & Plan (10/18/2021 4:26 PM HOME APPLIANCE WASHING MACHINE MECHANIC): HPI: Condition is stable A&P: Discussed/ordered labs, [...] med) Assessment & Plan (07/27/2020 9:27 AM HOME APPLIANCE WASHING MACHINE MECHANIC): HPI: Condition is worsening A&P: Discussed/ordered labs, [...] your phone. Examples would be headspace, calm, [id number], Personal Steve. Please work on this every [...] cpap Assessment & Plan (09/30/2019 4:16 PM HOME APPLIANCE WASHING MACHINE MECHANIC): Pt states using cpap for 8 hours/night [...] machine Assessment & Plan (10/02/2022 1:20 PM HOME APPLIANCE WASHING MACHINE MECHANIC): Continue following with sleep medicine They recently increased his pressure Assessment & Plan (10/18/2021 4:26 PM HOME APPLIANCE WASHING MACHINE MECHANIC): HPI: Condition is stable A&P: Discussed/ordered labs, [...] cpap Assessment & Plan (09/30/2019 4:15 PM HOME APPLIANCE WASHING MACHINE MECHANIC): Pt states using cpap for 8 hours/night 7 nights/wk Pt states less daytime somnolence, feels better when using it. Would recommend the continued use of cpap Assessment & Plan (10/20/2018 10:24 PM HOME APPLIANCE WASHING MACHINE MECHANIC): Hx of TAJ Last sleep study about [...] 05/22/2024 Assessment & Plan (08/08/2023 4:06 PM HOME APPLIANCE WASHING MACHINE MECHANIC): I personally reviewed H&P documentation by ED provider, CXR imaging, and ECG tracings from [facility]. Medications reviewed and reconciled this visit Rectal pain 05/25/2020 10/18/2021 Overview (05/25/2020): Added automatically from request for surgery [id number] Encounter for screening colonoscopy 05/25/2020 04/11/2021 Overview (05/25/2020): Added automatically from request for surgery [id number] Numbness and tingling of lower extremity 12/09/2019 [...] in your mouth on an olegario like BioPetroClean Lower carb substitutions: Aldi carries a zero [...] in much longer they will become mushy [place] and/or coconut flour instead of regular flour For pizza dough, try fathead pizza dough recipe online. To get a crispy crust, bake on one side for 8-12 min, then flip over and bake on the other side for 8-12 min, then put toppings on and bake until the cheese on top of pizza melts deandre recipe online For ice cream, try the brand Enlightened To replace coffee creamer and make it low carb, use heavy creamer with sugar free Torani sweetener For chips, try Whisps or pork rinds For yogurt, try Two Good fijian yogurt Use Mercedes for recipe ideas. Type in low carb... [...] in your mouth on an olegario like BioPetroClean Lower carb substitutions: Aldi carries a zero [...] in much longer they will become mushy [place]inder[place] and/or coconut flour instead of regular flour [...] pork rinds For yogurt, try Two Good fijian yogurt Use Pinterest for recipe ideas. Type [...] cup. Assessment & Plan (10/18/2021 3:11 PM HOME APPLIANCE WASHING MACHINE MECHANIC): HPI: Condition is stable goal BMI <30 A&P: Healthy, high-protein, lower carbohydrate, lower fat lifestyle and exercise for 150min/week recommended Substitutions: Recommend tracking everything you put in your mouth on an olegario like BioPetroClean or WellMetris Aldi carries a zero net carb bread [...] in much longer they will become mushy [place]inderhook and/or coconut flour instead of regular flour [...] pork rinds For yogurt, try Two Good fijian yogurt Use Pinterest for recipe ideas. Type in low carb... Assessment & Plan (04/11/2021 4:51 PM CDT): HPI: Condition is not at/near goal goal BMI <30 A&P: Healthy, high-protein, lower carbohydrate, lower fat lifestyle and exercise for 150min/week recommended Calories 2100 Protein 212 Fats 94 Carbs 106 Substitutions: Recommend tracking everything you put in your mouth on an olegario like BioPetroClean or WellMetris Aldi carries a zero net carb bread [...] in much longer they will become mushy [place]inderhook and/or coconut flour instead of regular flour [...] pork rinds For yogurt, try Two Good fijian yogurt Use Pinterest for recipe ideas. Type in low carb... Assessment & Plan (07/27/2020 9:24 AM HOME APPLIANCE WASHING MACHINE MECHANIC): HPI: Condition is stable A&P: Healthy, low [...] in much longer they will become mushy Kinderhook and/or coconut flour instead of regular flour [...] in much longer they will become mushy [place]inderhook and/or coconut flour instead of regular flour [...] carb... 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 Assessment & Plan (10/20/2018 10:29 PM HOME APPLIANCE WASHING MACHINE MECHANIC): Reports almost daily vomiting in the morning [...] 09/30/2019 Assessment & Plan (10/20/2018 10:52 PM HOME APPLIANCE WASHING MACHINE MECHANIC): Recent chest pain, palpitations and went to ER 08/24/18 CXR normal Stress exercise Echo-Conclusions: Adequate stress test in regards to heart rate. No exercise induced chest pain. No definite ischemia on stress EKG. No Echocardiographic evidence of ischemia. Immunizations Name Administration Dates Next Due Influenza, Unspecified 08/19/2024(Deferr ed: Patient Refused),05/25/2024(Deferred: Patient Refused),10/07/2023(Deferred: Patient Refused),06/28/2023(Deferred: Patient Refused),04/09/2022(Deferred: Patient Refused),10/18/2021(Deferred: Patient Refused),04/09/2021(Deferred: Patient Refused),07/15/2020(Deferred: Patient Refused),07/02/2019(Deferred: Patient Refused),06/23/2019(Deferred: Patient decision) Tdap 09/30/2019,07/26/2017 ZOSTER Recombinant 10/27/2019,08/19/2019 Social History Tobacco Use Types Packs/Day Years [...] on file 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 HOME APPLIANCE WASHING MACHINE MECHANIC Gender Identity Not on file Sexual Orientation Not on file Last Filed Vital Signs Vital Sign Reading Time Taken Comments Blood Pressure 140/94 08/20/2024 10:48 AM HOME APPLIANCE WASHING MACHINE MECHANIC Pulse 96 08/20/2024 10:48 AM HOME APPLIANCE WASHING MACHINE MECHANIC Temperature 36.6 ??C (97.9 ??F) 08/19/2024 10:[address] Respiratory Rate 18 08/20/2024 10:48 AM HOME APPLIANCE WASHING MACHINE MECHANIC Oxygen Saturation 96% 08/20/2024 10:48 AM HOME APPLIANCE WASHING MACHINE MECHANIC Inhaled Oxygen Concentration - - Weight 128.8 kg (284 lb) 08/19/2024 10:21 AM HOME APPLIANCE WASHING MACHINE MECHANIC Height 188 cm (6' 2 ) 08/19/2024 10:21 AM HOME APPLIANCE WASHING MACHINE MECHANIC Body Mass Index 36.46 08/19/2024 10:21 AM HOME APPLIANCE WASHING MACHINE MECHANIC Plan of Treatment Not on file Medical Devices Implanted Type Area Linking Machine Operator Device Identifier Shelf Expiration Date Model / Serial / Lot Dental Fix RX Ashwin Contour 6fr 28cm Taper Tip Bladder Oscar Low Profile Large Inner Latex Free 180-224 - [id number] Implanted:Qty: 1 on 04/13/2024 by Lalito Irene MD at [facility] Left: Delfin Dental Fix RX Ashwin 10/16/2026 [id number] / / [id number] Procedures Procedure Name Priority Date/Time Associated Diagnosis Comments MRI SHOULDER RIGHT WO CONTRAST Schedule Routine, Read Routine (OP Routine) 09/07/2024 7:17 AM HOME APPLIANCE WASHING MACHINE MECHANIC Acute pain of right shoulder Weakness of right arm HEPATITIS C ANTIBODY Routine 06/08/2023 8:33 AM CDT Mixed hyperlipidemia Essential hypertension Need for hepatitis C screening test IGT (impaired glucose tolerance) PSA SCREEN Routine 12/13/2021 9:14 AM CDT Prostate cancer screening COLONOSCOPY 08/26/2020 7:40 AM HOME APPLIANCE WASHING MACHINE MECHANIC from Last 3 Months or Most Recently Relevant to Health Maintenance Results * MRI Shoulder Right WO Contrast (09/07/2024 7:17 AM HOME APPLIANCE WASHING MACHINE MECHANIC) Anatomical Region Laterality Modality Upper Extremities Right Magnetic Reson ance 09/07/2024 7:20 AM HOME APPLIANCE WASHING MACHINE MECHANIC Narrative 09/07/2024 7:26 AM HOME APPLIANCE WASHING MACHINE MECHANIC EXAM DESCRIPTION: MRI SHOULDER RIGHT WO CONTRAST [...] AM T: ??09/07/2024 7:26 AM Report ID: [id number] Reading Location: [id number] Procedure Note Michael Xiong MD - 09/07/2024 [...] Michael Xiong M.D. MF: CHANI Report ID: [id number] Reading Location: [place] [address] Shannan Galvan NP IM MRI PROCEDURES Final Result * Hepatitis C [...] last revised on 2019. Testing performed by: [facility], [address] [place] [address]., [address] Blood 06/08/2023 8:33 AM CDT 06/08/2023 11:10 AM CDT Narrative [facility] - 06/08/2023 11:46 AM CDT fasting La Kearney MD LAB MICROBIOL OGY - GENERAL ORDERABLES Edited Result - Final [facility] Department of Laboratories [place], [place] [id number] * PSA screen (12/13/2021 9:14 AM CDT) Pathologist [facility] PSA-Total 3.65 <=3.90 ng/mL [facility] Comment: Interpretive Data ?AGE ? SEX ?REFERENCE INTERVAL 0 minutes-150 years ?Female ?None 0 minutes-49 years ? Male ?None ? 50-59 years ? Male ?0-3.90 ? 60-69 years ? Male ?0-5.40 ? 70-79 years ? Male ?0-6.20 ? 80-150 years ?Male ?0-6.20 Current interpretive data last revised 2018. Testing performed by: [facility], [address] [place] [address], [place]., [address] Blood 12/13/2021 9:14 AM CDT 12/13/2021 2:02 PM CDT us Laura Tapia DIESEL LUBE TECH LAB BLOOD ORDERABLES Final Result [facility] [place] [address] * COLONOSCOPY (08/26/2020 7:40 AM HOME APPLIANCE WASHING MACHINE MECHANIC) Anatomical Region Laterality Modality Other Narrative Procedure Note Antoinette Swayer MD - 08/26/2020 7:40 AM CST [facility] Patient Name: Jaden De La Torre Procedure Date: 08/26/2020 7:40 AM Date of : 1970 Admit Type: Outpatient Age: 49 Gender: Male Attending MD: Antoinette Sawyer M.D. [facility] 1 Note Status: Finalized Patient Profile: This is a 49 year old male. No family history ofcolon cancer. No specific GI complaint. Procedure: Colonoscopy Indications: Screening for colorectal malignant neoplasm, This is the patient's first colonoscopy Referring MD: Jordan Corado Providers: Antoinette Sawyer M.D. Impression: - The [...] passed under direct vision.The Pediatric Colonoscope [id number]-H190L [id number] was introduced through the anus and advanced [...] 7:40 AM Procedure Code(s): --- Professional --- 50884, Colonoscopy, flexible; diagnostic, including collection of specimen(s) by brushing or washing, when performed (separateprocedure) Diagnosis Code(s): --- Professional --- Z12.11, Encounter for screening for malignant neoplasm of colon K64.8, Other hemorrhoids CPT copyright 2017 [employer]. All rights reserved. The codes documented in this report are preliminary and upon pre coder reviewmay be revised to meet current compliance requirements. Recognized by the [place] [employer] for promoting quality in endoscopy Antoinette Sawyer MD ENDOSCOPY PROCEDURES Final Result from Last 3 Months or Most Recently Relevant to Health Maintenance Insurance [facility] Address: [facility] [id number] [place] [address] [facility] OOS BLUE ACC CHOICE OOS Advance Directives For more information, please contact: [phone] * Full Code (Latest Code Status on [...] 12:01 PM 02/07/2019 4:36 AM Care Teams Fitness Worker Relationship Specialty Start Date End Date La Kearney MD [address] [place] [id number] PCP - General Family Medicine 10/02/22 Mariaelena Zaidi MD Consulting Physician Sleep Medicine 07/12/21
--- OUTSIDE RECORDS SUMMARY | 2024-09-17 12:46 | XMS_ITS | Encounter Summary ---
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 * Telephone Encounter - Denia Santos LPN - 06/03/2024 12:59 PM CDT Patient said [facility] in [place] is not a great fit, can patient go to [facility] instead * Telephone Encounter - Denia Santos LPN - 06/03/2024 12:58 PM CDT ----- Message from Eli House sent at 06/01/2024 3:43 PM CDT ----- MyChart message sent, please just check if message was read. ----- Message ----- From: La Kearney MD Sent: 05/26/2024 8:12 AM CDT To: [facility] Im/Fm Pcp [facility] Clinical Inform patient that the xray of the lower back showed mild degenerative changes and normal right shoulder with some signs of an old injury. Nothing new. The plan remains the same documented in this encounter Plan of Treatment Not on file documented as of this encounter Visit Diagnoses Not on filedocumented in this encounter Care Teams Multiskill Operator Relationship Specialty Start Date End Date La Kearney MD [address] [place] [address] [place] [address] PCP - General Family Medicine 10/02/22 Mariaelena Zaidi MD Consulting Physician Sleep Medicine 07/12/21 documented as of this encounter
--- OUTSIDE RECORDS SUMMARY | 2024-09-17 12:46 | XMS_ITS | Encounter Summary ---
Author Organization [facility] Healthcare Address [address] [place] [address] Care Team Providers Care Advertising Director Name Role Phone Mariaelena Zaidi MD Unavailable La Kearney MD Primary Care Provide r Reason for Visit * Reason Comments Shoulder Pain Encounter Details Date Type Department Care Team (Late st Contact Info) Description 08/19/2024 10:30 AM PLAY LEADER Office Visit [facility] Primary Care at [address] [place] [id number] Shannan Galvan, COMPUTER SECURITY MANAGER 2 [facility] [address] [place] [address] Chronic midline low back pain without sciatica (Primary Dx); Degenerative disc disease, cervical; Acute pain of right shoulder; Weakness of right arm Social History Tobacco [...] on file 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 PLAY LEADER Gender Identity Not on file Sexual Orientation Not on file documented as of this encounter Last Filed Vital Signs Vital Sign Reading Time Taken Comments Blood Pressure 124/68 08/19/2024 10:21 AM PLAY LEADER Pulse 85 08/19/2024 10:21 AM PLAY LEADER Temperature 36.6 ??C (97.9 ??F) 08/19/2024 10:[address] Respiratory Rate - - Oxygen Saturation 96% 08/19/2024 10:21 AM PLAY LEADER Inhaled Oxygen Concentration - - Weight 128.8 kg (284 lb) 08/19/2024 10:21 AM PLAY LEADER Height 188 cm (6' 2 ) 08/19/2024 10:21 AM PLAY LEADER Body Mass Index 36.46 08/19/2024 10:21 AM PLAY LEADER documented in this encounter Progress Notes * Shannan Galvan, COMPUTER SECURITY MANAGER - 08/19/2024 10:30 AM CST Images from the original note were not included. ESTABLISHED VISIT Assessment & Plan: Diagnoses and all orders for this visit: Chronic midline low back pain without sciatica (Primary) Comments: Chronic, stable. Continue with pain management Degenerative disc disease, cervical Comments: Chronic, worsening. Patient prefers not to have imaging but instead just see pain management: Scheduled for 08/20/24 Acute pain of right shoulder Comments: Obtain MRI today Refer to orthopedics Weakness of right arm Comments: Continue physical therapy Pt verbalized understanding of and agreement with plans as above. HPI: Jaden De La Torre is a 53 y.o. male who presents to clinic for repeat evaluation of back and shoulderpain. This is a chronic condition which was exacerbated approximately 3 months ago. At that time hewas evaluated in this clinic in had x-ray imaging of the lower back and right shoulder showing no acute injury. He was prescribed a Medrol Dosepak and referred to physical therapy which he reports hehas completed without much relief. Per patient, when he is not active or using the arm, he is fine. However when he increases his exercise he has a drastic reduction in function. He describes the same as going hunting 3 days in a row and on the 1st day he was able to lift his back pack up and hang it on a hook with his right hand/arm, but that on the 2nd and 3rd days he could not lift it without assistance from his left hand as well. He describes the pain as an intermittent, sharp pain and states that he does not often had to take medication for the same but that it does sometimes flare-up at nighttime and we can from asleep..He is interested in an MRI of the right shoulder as discussed the initial evaluating provider, his PCP Dr. Prince. He also mentions that his [facility] providers are involved with his chronic neck pain and trying to get his disability approved. He is currently on 60% disability and to change that soon. He plans to see pain management tomorrow and is requesting documentation his therapist and this office to be sent to his [facility] Dr. Faith. Past Medical History: Diagnosis Date Anxiety disorder Anxiety Arrhythmia Depression Depression Enlarged prostate Erectile dysfunction Generalized abdominal pain 06/27/2019 GERD (gastroesophageal reflux disease) Hemorrhoids Hyperlipidemia Hypertension Hypoglycemia Palpitation Rectal pain 05/25/2020 Added automatically from request for surgery [id number] Sleep apnea Urinary retention Past Surgical History: Procedure Laterality Date APPENDECTOMY 10/07/2023 BAND HEMORRHOIDECTOMY BIOPSY ABDOMEN RETROPERITONEAL N/A 02/06/2019 CARPAL TUNNEL RELEASE Bilateral COLONOSCOPY 08/26/2020 1st KNEE ARTHROSCOPY Right 02/2006 rt ac resection PROSTATE SURGERY SHOULDER SURGERY Right Current Outpatient Medications Medication Sig Dispense Refill buPROPion XL (WELLBUTRIN XL) 300 mg 24 hr tablet TAKE 1 TABLET EVERY MORNING 100 tablet 1 lisinopriL (PRINIVIL,ZESTRIL) 5 mg tablet Take 1 tablet (5 mg total) by mouth nightly 100 tablet 3 metoprolol XL (TOPROL-XL) 50 mg extended release tablet Take 1 tablet (50 mg total) by mouth nightly 90 tablet 3 oxyBUTYnin XL (DITROPAN-XL) 10 mg 24 hr tablet Take 1 tablet (10 mg total) by mouth daily 30 tablet0 pramipexole (MIRAPEX) 1.5 mg tablet TAKE 1 TABLET THREE TIMES A DAY 100 tablet 10 pravastatin (PRAVACHOL) 40 mg tablet TAKE 1 TABLET DAILY 90 tablet 1 tadalafiL (CIALIS) 20 mg tablet Take 1 tablet (20 mg total) by mouth daily as needed for erectile dysfunction Max 1 daily. 20 tablet 3 tamsulosin (FLOMAX) 0.4 mg extended release capsule Take 1 capsule (0.4 mg total) by mouth nightly 30 capsule 0 phenazopyridine (PYRIDIUM) 200 mg tablet Take 1 tablet (200 mg total) by mouth 3 (three) times a day as needed for bladder spasms 9 tablet 0 senna-docusate (PERICOLACE) 8.6-50 mg Take 2 tablets by mouth 2 (two) times a day 120 tablet 0 No current facility-administered medications for this visit. SUBJECTIVE: Review of Systems Constitutional: Positive for activity change (decreased due to pain). Negative for appetite change and unexpected weight change. Cardiovascular: Negative for chest pain, palpitations and leg swelling. Musculoskeletal: Positive for arthralgias, back pain and myalgias. Negative for joint swelling. Skin: Negative for color change, rash and wound. Neurological: Positive for weakness (with repetitive motion). Negative for dizziness, numbness and headaches. Psychiatric/Behavioral: Positive for sleep disturbance (due to pain). Negative for self-injury. OBJECTIVE: Vitals BP 124/68 (BP Location: Left arm, Patient Position: Sitting) Pulse 85 Temp 36.6 ??C (97.9 ??F) (Oral) Ht 188 cm (6' 2 ) Wt 128.8 kg (284 lb) SpO2 96% BMI 36.46 kg/m?? Physical Exam Vitals and nursing note reviewed. Constitutional: General: He is not in acute distress. Appearance: Normal appearance. He is obese. He is not ill-appearing. HENT: Head: Normocephalic and atraumatic. Right Ear: External ear normal. Left Ear: External ear normal. Cardiovascular: Rate and Rhythm: Normal rate and regular rhythm. Pulses: Normal pulses. Heart sounds: Normal heart sounds. No murmur heard. Pulmonary: Effort: Pulmonary effort is normal. No respiratory distress. Breath sounds: Normal breath sounds. Abdominal: General: There is no distension. Palpations: Abdomen is soft. Musculoskeletal: General: Tenderness (full ROM R arm with pain on extension, rotation.) present. No swelling or deformity. Cervical back: Normal range of motion. No rigidity. Comments: Strength 5/5 in upper extremities bilaterally Skin: General: Skin is warm and dry. Findings: No erythema or rash. Neurological: General: No focal deficit present. Mental Status: He is alert and oriented to person, place, and time. Cranial Nerves: No cranial nerve deficit. Motor: No weakness. Gait: Gait normal. Psychiatric: Mood and Affect: Mood normal. Behavior: Behavior normal. Shannan Galvan NP Please note this documentation may have been generated in part using voice dictation and potentially contain grammatical errors. LEADER documented in this encounter Plan of Treatment Not on file documented as of this encounter Visit Diagnoses Diagnosis Chronic midline low back pain without sciatica- Primary Degenerative disc disease, cervical Acute pain of right shoulder Weakness of right arm Other musculoskeletal symptoms referable to limbs documented in this encounter Discontinued Medications Medication Sig Discontinue Reason Start Date End Da te ciprofloxacin (CIPRO) 500 mg tablet Take 1 tablet (500 mg total) by mouth 2 (two) times a day Patient Reported 04/14/2024 08/19/2024 ketorolac (TORADOL) 10 mg tablet Take 1 tablet (10 mg total) by mouth every 6 (six) hours as needed for pain Patient Reported 04/14/2024 08/19/2024 documented as of this encounter Care Teams Advertising Director Relationship Specialty Start Date End Date La Kearney MD 2 [facility] [address] [facility]UC[facility] [address] [place] [id number] PCP - General Family Medicine 10/02/22 Mariaelena Zaidi MD Consulting Physician Sleep Medicine 07/12/21 documented as of this encounter
--- OUTSIDE RECORDS SUMMARY | 2024-09-17 12:47 | XMS_ITS | Encounter Summary ---
Author Organization [facility] Healthcare Address [address] [place] [address] Care Team Providers Care Visual Merchandising Assistant Name Role Phone Mariaelena Zaidi MD Unavailable La Kearney MD Primary Care Provide r Reason for Visit * Reason Onset Date Comments Medical Question/Miscellaneous 04/07/2024 Encounter Details Date Type Department Care Team (Late st Contact Info) Description 04/07/2024 Telephone [facility] Primary Care at [address] [place] [address] La Kearney MD [address] [place] [address] [address] [place] [address] Medical Question/Miscellaneous Social History Tobacco Use Types [...] points, staff should administer the PHQ-9) 0 02/18/2024 Personal Safety Answer Date Recorded Have you ever been in or are you currently in a harmful physical or emotional relationship or is someone making you feel afraid or unsafe? Denies 04/13/2024 Sex and Gender Information Value Date Recorded Sex Assigned at Not on file 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 STATION USHER Gender Identity Not on file Sexual Orientation Not on file documented as of this encounter Miscellaneous Notes * Telephone Encounter - Willie Cobos - 04/07/2024 10:16 AM CDT Medical Question/Miscellaneous Caller???s Concern: Patient called to check for CT or MRI of his neck from 2 to 3 years. AC did notfind in chart. Does message need to be routed? Yes-FYI Only documented in this encounter Plan of Treatment Not on file documented as of this encounter Visit Diagnoses Not on filedocumented in this encounter Care Teams Visual Merchandising Assistant Relationship Specialty Start Date End Date La Kearney MD 2 [facility] [address] [address] PCP - General Family Medicine 10/02/22 Mariaelena Zaidi MD Consulting Physician Sleep Medicine 07/12/21 documented as of this encounter
--- OUTSIDE RECORDS SUMMARY | 2024-09-17 12:47 | XMS_ITS | Encounter Summary ---
Author Organization [facility] Healthcare Address [address] [place] [address] Care Team Providers Care Dross Puller Name Role Phone Mariaelena Zaidi MD Unavailable La Kearney MD Primary Care Provide r Encounter Details Date Type Department Care Team (Late st Contact Info) Description 05/25/2024 Orders Only [facility] Medical [facility] Primary Care at [address] [place] [address] La Kearney MD [address] [place] [address] [address] [place] [address] Acute pain of right shoulder (Primary Dx); Chronic midline thoracic back pain Social History Tobacco Use Types Packs/Day Years [...] on file 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 Complaints of R shoulder pain since this weekend. ?? NKI. ?? Constant pain even at rest. ?? Limited ROM. ?? No prior injuries/surgery to shoulder. ?? ; mid and lower back pain ?? Complaints of chronic back pain. ?? Hx of DDD. ?? No prior injuries/surgery to spine. ? TECHNIQUE: 4 ??radiographic view(s) of the ??right shoulder . 5 radiographic views of the lumbar spine. 5 radiographic views of the thoracic spine. COMPARISON: 04/12/2024 FINDINGS: Thoracic and lumbar spine: There is mild retrolisthesis of L4 on L5 and L3 on L4 with lumbar hypolordosis. ??Thoracic spine alignment is within normal limits. ??Vertebral body heights are normal. ??There is no acute fracture. ??There is mild multilevel thoracolumbar spine degenerative disc disease. ??Lower lumbar spine facet joint osteoarthritis. Left iliac bone island is present. Right shoulder: There is widening of the acromioclavicular interval either reflecting sequela of prior injury or prior distal end clavicle resection. ??The glenohumeral joint alignment is within normal limits. ??The glenohumeral joint space is normal. ??No aggressive bone lesions or erosions. ??There is no acute fracture. IMPRESSION: 1. ?? No acute osseous abnormality. 2. ??Mild multilevel thoracolumbar spine degenerative disc disease. 3. ??Normal right glenohumeral joint spaces. THIS IS AN ELECTRONICALLY VERIFIED FINAL REPORT 05/26/2024 1:56 AM - Electronically signed by ??Mary Somers M.D. AT: AT D: ??05/26/2024 1:56 AM T: ??05/26/2024 1:56 AM Report ID: [id number] Reading Location: ??[id number] Procedure Note Mary Somers MD - 05/26/2024 EXAM DESCRIPTION: XR SHOULDER RIGHT 2 OR MORE VIEWS; XR SPINE THORACIC 3 VIEWS; XR SPINE LUMBAR 4 OR MORE VIEWS REASON FOR STUDY: aute right shoulder pain Complaints of R shoulder pain since this weekend. NKI. Constant paineven at rest. Limited ROM. No prior injuries/surgery to shoulder. ; midand lower back pain Complaints of chronic back pain. Hx of DDD. No prior injuries/surgeryto spine. TECHNIQUE: 4 radiographic view(s) of the right shoulder . 5 radiographic views of the lumbar spine. 5 radiographic views of the thoracic spine. COMPARISON: 04/12/2024 FINDINGS: Thoracic and lumbar spine: There is mild retrolisthesis of L4 on L5 and L3 on L4 with lumbar hypolordosis. Thoracic spine alignment is within normal limits.Vertebral body heights are normal. There is no acute fracture. There is mild multilevel thoracolumbar spine degenerative disc disease. Lower lumbarspine facet joint osteoarthritis. Left iliac bone island is present. Right shoulder: There is widening of the acromioclavicular interval either reflectingsequela of prior injury or prior distal end clavicle resection. The glenohumeral joint alignment is within normal limits. The glenohumeral joint space is normal. No aggressive bone lesions or erosions. There is no acutefracture. IMPRESSION: 1. No acute osseous abnormality. 2. Mild multilevel thoracolumbar spine degenerative disc disease. 3. Normal right glenohumeral joint spaces. THIS IS AN ELECTRONICALLY VERIFIED FINAL REPORT 05/26/2024 1:56 AM - Electronically signed by Mary Somers M.D. AT: AT Report ID: [id number] Reading Location: [id number] La Kearney MD IMG XR PROCEDURES Fin al Result * XR Spine Lumbar Complete 4 Or More (05/25/2024 9:49 AM CDT) Anatomical Region Laterality Modality Spine N/A Computed Radiogr aphy 05/26/2024 1:52 AM CDT Narrative 05/26/2024 1:56 AM CDT EXAM DESCRIPTION: XR SHOULDER RIGHT 2 OR MORE VIEWS; XR SPINE THORACIC 3 VIEWS; XR SPINE LUMBAR 4 OR MORE VIEWS REASON FOR STUDY: aute right shoulder pain ?? Complaints of R shoulder pain since this weekend. ?? NKI. ?? Constant pain even at rest. ?? Limited ROM. ?? No prior injuries/surgery to shoulder. ?? ; mid and lower back pain ?? Complaints of chronic back pain. ?? Hx of DDD. ?? No prior injuries/surgery to spine. ? TECHNIQUE: 4 ??radiographic view(s) of the ??right shoulder . 5 radiographic views of the lumbar spine. 5 radiographic views of the thoracic spine. COMPARISON: 04/12/2024 FINDINGS: Thoracic and lumbar spine: There is mild retrolisthesis of L4 on L5 and L3 on L4 with lumbar hypolordosis. ??Thoracic spine alignment is within normal limits. ??Vertebral body heights are normal. ??There is no acute fracture. ??There is mild multilevel thoracolumbar spine degenerative disc disease. ??Lower lumbar spine facet joint osteoarthritis. Left iliac bone island is present. Right shoulder: There is widening of the acromioclavicular interval either reflecting sequela of prior injury or prior distal end clavicle resection. ??The glenohumeral joint alignment is within normal limits. ??The glenohumeral joint space is normal. ??No aggressive bone lesions or erosions. ??There is no acute fracture. IMPRESSION: 1. ?? No acute osseous abnormality. 2. ??Mild multilevel thoracolumbar spine degenerative disc disease. 3. ??Normal right glenohumeral joint spaces. THIS IS AN ELECTRONICALLY VERIFIED FINAL REPORT 05/26/2024 1:56 AM - Electronically signed by ??Mary Somers M.D. AT: AT D: ??05/26/2024 1:56 AM T: ??05/26/2024 1:56 AM Report ID: [id number] Reading Location: ??[id number] Procedure Note Mary Somers MD - 05/26/2024 EXAM DESCRIPTION: XR SHOULDER RIGHT 2 OR MORE VIEWS; XR SPINE THORACIC 3 VIEWS; XR SPINE LUMBAR 4 OR MORE VIEWS REASON FOR STUDY: aute right shoulder pain Complaints of R shoulder pain since this weekend. NKI. Constant paineven at rest. Limited ROM. No prior injuries/surgery to shoulder. ; midand lower back pain Complaints of chronic back pain. Hx of DDD. No prior injuries/surgeryto spine. TECHNIQUE: 4 radiographic view(s) of the right shoulder . 5 radiographic views of the lumbar spine. 5 radiographic views of the thoracic spine. COMPARISON: 04/12/2024 FINDINGS: Thoracic and lumbar spine: There is mild retrolisthesis of L4 on L5 and L3 on L4 with lumbar hypolordosis. Thoracic spine alignment is within normal limits.Vertebral body heights are normal. There is no acute fracture. There is mild multilevel thoracolumbar spine degenerative disc disease. Lower lumbarspine facet joint osteoarthritis. Left iliac bone island is present. Right shoulder: There is widening of the acromioclavicular interval either reflectingsequela of prior injury or prior distal end clavicle resection. The glenohumeral joint alignment is within normal limits. The glenohumeral joint space is normal. No aggressive bone lesions or erosions. There is no acutefracture. IMPRESSION: 1. No acute osseous abnormality. 2. Mild multilevel thoracolumbar spine degenerative disc disease. 3. Normal right glenohumeral joint spaces. THIS IS AN ELECTRONICALLY VERIFIED FINAL REPORT 05/26/2024 1:56 AM - Electronically signed by Mary Somers M.D. AT: AT Report ID: [id number] Reading Location: [id number] La Kearney MD IMG XR PROCEDURES Fin al Result documented in this encounter Visit Diagnoses Diagnosis Acute pain of right shoulder- Primary Chronic midline thoracic back pain Chronic midline thoracic back pain Acute pain of right shoulder documented in this encounter Care Teams Dross Puller Relationship Specialty Start Date End Date La Kearney MD [address] [place] [address] [address] PCP - General Family Medicine 10/02/22 Mariaelena Zaidi MD Consulting Physician Sleep Medicine 07/12/21 documented as of this encounter
--- OUTSIDE RECORDS SUMMARY | 2024-09-17 12:47 | XMS_ITS | Encounter Summary ---
Author Organization [facility] Address [address] [place] [address] Care Team Providers Care Administrative Services Manager Name Role Phone Mariaelena Zaidi MD Unavailable La Kearney MD Primary Care Provide r Reason for Visit * Reason Comments Annual Exam Encounter Details Date Type Department Care Team (Late st Contact Info) Description 05/25/2024 8:45 AM CDT Office Visit [facility] Primary Care at [address] [phone] La Kearney MD [address] [place] [id number] Encounter for wellness examination (Primary Dx); Mixed hyperlipidemia; Essential hypertension; Benign prostatic hyperplasia with weak urinary stream; Situational anxiety; Spondylosis of lumbar region without myelopathy or radiculopathy; Restless legs syndrome; Obstructive sleep apnea syndrome; Class 2 severe obesity due to excess calories with serious comorbidity and body mass index (BMI) of 36.0 to 36.9 in adult (HCC); Acute pain of right shoulder; Chronic midline thoracic back pain Social History [...] on file 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 [employer] Gender Identity Not on file Sexual Orientation Not on file documented as of this encounter Last Filed Vital Signs Vital Sign Reading Time Taken Comments Blood Pressure 128/78 05/25/2024 8:26 AM CDT Pulse 88 05/25/2024 8:26 AM CDT Temperature 36.7 ??C (98 ??F) 05/25/2024 8:26 AM CDT Respiratory Rate 18 05/25/2024 8:26 AM CDT Oxygen Saturation 99% 05/25/2024 8:26 AM CDT Inhaled Oxygen Concentration - - Weight 129.8 kg (286 lb 3.2 oz) 05/25/2024 8:26 AM CDT Height 185.4 cm (6' 1 ) 05/25/2024 8:26 AM CDT Body Mass Index 37.76 05/25/2024 8:26 AM CDT documented in this encounter Patient Instructions * Patient Instructions* La Kearney MD - 05/25/2024 8:45 AM CDT My director medical economics and I are thankful you have trusted us with your care, and hope that you received EXCELLENT care today! Please do not hesitate to call if you have any questions or concerns. You may receive a phone call or text asking about your care today. We would love to hear your input and again, hope your visit was as EXCELLENT as possible, even if you were not feeling your best! -Dr. Kearney documented in this encounter Ordered Prescriptions Prescription Sig Dispense Quantity Refills Last Filled Start Date End Date methylPREDNISolone (MEDROL DOSEPACK) 4 mg Dosepack Take as directed on package. 21 tablet 05/25/2024 4 documented in this encounter Progress Notes * La Kearney MD - 05/25/2024 8:45 AM CDT Images from the original note were not included. Subjective/Objective Patient ID: Jaden De La Torre is a 53 y.o. male. Chief Complaint Annual Exam HPI 53M with history of hypertension hld anxiety depression BPH restless legs syndrome sleep apnea who is coming in for a wellness exam. He also mentioned some chronic back pain that got worse over the 4-5 months ago. He was lifting a pipe and has been having some back problems since. Non radiating. His entire back feels stiff. It is in the middle of the back. Starts below the shoulder blades and goes down in the lower back. No numbness, tingling or loss of bladder or bowel control. He also mentioned some right shoulder pain that started over the weekend. He went camping this weekend. Non radiating. No popping. No improvement with ibuprofen or tylenol. Past Medical History: Diagnosis Date Anxiety disorder Anxiety Arrhythmia Depression Depression Enlarged prostate Erectile dysfunction Generalized abdominal pain 06/27/2019 GERD (gastroesophageal reflux disease) Hemorrhoids Hyperlipidemia Hypertension Hypoglycemia Palpitation Rectal pain 05/25/2020 Added automatically from request for surgery [id number] Sleep apnea Urinary retention No Known Allergies Past Surgical History: Procedure Laterality Date APPENDECTOMY 10/07/2023 BAND HEMORRHOIDECTOMY BIOPSY ABDOMEN RETROPERITONEAL N/A 02/06/2019 CARPAL TUNNEL RELEASE Bilateral COLONOSCOPY 08/26/2020 1st KNEE ARTHROSCOPY Right 02/2006 rt ac resection PROSTATE SURGERY SHOULDER SURGERY Right Family History Problem Relation Age of Onset Cancer Mother lung Hypertension Mother Leukemia Mother Cancer Father lung Throat cancer Father Social History Tobacco Use Smoking status: Never Smokeless tobacco: Former Types: Chew Quit date: 08/2018 Tobacco comments: chews, not interested in counseling Substance and Sexual Activity Drug use: Yes Types: Alcohol Comment: 18 pack beer once weekly Sexual activity: Defer Alcohol Use: Not At Risk (02/18/2024) AUDIT-C Frequency of Alcohol Consumption: 2-3 times a week Average Number of Drinks: 1 or 2 Frequency of Binge Drinking: Never Review of Systems Constitutional: Negative for appetite change, chills, fatigue, fever and unexpected weight change. HENT: Negative for hearing loss, rhinorrhea, sore throat and trouble swallowing. No odynophagia, dysphagia Eyes: Negative for visual disturbance. Respiratory: Negative for cough, chest tightness, shortness of breath and wheezing. Cardiovascular: Negative for chest pain, palpitations and leg swelling. Gastrointestinal: Negative for abdominal pain, blood in stool, constipation, diarrhea, nausea and vomiting. Endocrine: Negative for polydipsia and polyuria. Genitourinary: Negative for difficulty urinating, dysuria, frequency, hematuria and urgency. Musculoskeletal: Positive for back pain. Negative for arthralgias, gait problem, joint swelling, myalgias and neck stiffness. Right shoulder pain Skin: Negative for rash. Neurological: Negative for dizziness, syncope, weakness, light-headedness and headaches. Hematological: Negative for adenopathy. Does not bruise/bleed easily. Psychiatric/Behavioral: Negative for agitation and sleep disturbance. The patient is not nervous/anxious. Vitals: 05/25/24 0826 BP: 128/78 BP Location: Left arm Patient Position: Sitting Pulse: 88 Resp: 18 Temp: 36.7 ??C (98 ??F) SpO2: 99% Weight: 129.8 kg (286 lb 3.2 oz) Height: 185.4 cm (6' 1 ) No visits with results within 1 Month(s) from this visit. Latest known visit with results is: Admission on 04/13/2024, Discharged on 04/14/2024 Component Date Value WBC 04/13/2024 8.6 Hgb 04/13/2024 13.7 Hct 04/13/2024 38.9 Plt 04/13/2024 174 MPV 04/13/2024 9.5 RBC 04/13/2024 4.27 (L) MCV 04/13/2024 91.1 MCH 04/13/2024 32.1 MCHC 04/13/2024 35.2 RDW CV 04/13/2024 12.2 RDW SD 04/13/2024 40.4 NRBC abs 04/13/2024 0.00 Sodium 04/13/2024 135 Potassium, pl 04/13/2024 4.1 Chloride 04/13/2024 100 CO2 04/13/2024 23 Anion gap 04/13/2024 11 BUN 04/13/2024 17 Creatinine 04/13/2024 1.74 (H) Glucose 04/13/2024 111 Calcium 04/13/2024 8.6 Bilirubin, total 04/13/2024 0.9 Protein, pl 04/13/2024 6.0 (L) Albumin 04/13/2024 4.0 Alk phos 04/13/2024 96 ALT 04/13/2024 31 AST 04/13/2024 21 Color, ur 04/13/2024 Yellow Clarity, ur 04/13/2024 Clear Specific gravity, ur 04/13/2024 1.027 pH, urine 04/13/2024 6.0 Protein, ur ql 04/13/2024 Trace Glucose, ur ql 04/13/2024 Negative Ketones, ur 04/13/2024 Negative Bilirubin, ur 04/13/2024 Negative Blood, ur 04/13/2024 Trace (A) Urobilinogen, ur 04/13/2024 <2.0 Nitrite, ur 04/13/2024 Negative Leukocyte esterase, ur 04/13/2024 2+ (A) UA reflex comment 04/13/2024 Reflex to microscopic UA will be performed. Neutrophil abs 04/13/2024 6.8 (H) Imm gran abs 04/13/2024 0.0 Lymphocyte abs 04/13/2024 1.0 Monocyte abs 04/13/2024 0.7 Eosinophil abs 04/13/2024 0.1 Basophil abs 04/13/2024 0.0 Neutrophil pct 04/13/2024 79.2 Imm gran pct 04/13/2024 0.5 Lymphocyte pct 04/13/2024 11.5 Monocyte pct 04/13/2024 7.8 Eosinophil pct 04/13/2024 0.7 Basophil pct 04/13/2024 0.3 Sepsis Lactate 04/13/2024 0.7 eGFR 04/13/2024 46 (L) WBC, ur 04/13/2024 6-10 (A) RBC, ur 04/13/2024 6-10 (A) Epithelial cells, squamo* 04/13/2024 1-5 Mucous, ur 04/13/2024 Present (A) Culture Reflex Comment 04/13/2024 Reflex conditions for urine culture (WBC >10) not met. WBC 04/14/2024 9.1 Hgb 04/14/2024 12.2 (L) Hct 04/14/2024 35.2 (L) Plt 04/14/2024 159 MPV 04/14/2024 9.9 RBC 04/14/2024 3.73 (L) MCV 04/14/2024 94.4 MCH 04/14/2024 32.7 MCHC 04/14/2024 34.7 RDW CV 04/14/2024 12.0 RDW SD 04/14/2024 41.1 NRBC abs 04/14/2024 0.00 Sodium 04/14/2024 136 Potassium, pl 04/14/2024 4.4 Chloride 04/14/2024 104 CO2 04/14/2024 22 Anion gap 04/14/2024 10 BUN 04/14/2024 18 Creatinine 04/14/2024 1.20 Glucose 04/14/2024 127 Calcium 04/14/2024 8.7 Bilirubin, total 04/14/2024 0.5 Protein, pl 04/14/2024 5.6 (L) Albumin 04/14/2024 3.7 Alk phos 04/14/2024 79 ALT 04/14/2024 21 AST 04/14/2024 14 Neutrophil abs 04/14/2024 7.5 (H) Imm gran abs 04/14/2024 0.0 Lymphocyte abs 04/14/2024 0.9 Monocyte abs 04/14/2024 0.6 Eosinophil abs 04/14/2024 0.0 Basophil abs 04/14/2024 0.0 Neutrophil pct 04/14/2024 83.1 Imm gran pct 04/14/2024 0.4 Lymphocyte pct 04/14/2024 9.4 Monocyte pct 04/14/2024 6.9 Eosinophil pct 04/14/2024 0.0 Basophil pct 04/14/2024 0.2 eGFR 04/14/2024 71 Stone analysis 04/13/2024 Not Reported Source, Kid Stone 04/13/2024 Left Ureter Interp, Kid stone analys* 04/13/2024 See Footnote COMMENT 04/13/2024 See Footnote Physical Exam Constitutional: General: He is not in acute distress. HENT: Head: Normocephalic and atraumatic. Right Ear: External ear normal. Left Ear: External ear normal. Mouth/Throat: Pharynx: No oropharyngeal exudate (TMs normal, nose and throat clear). Eyes: Pupils: Pupils are equal, round, and reactive to light. Neck: Thyroid: No thyromegaly. Comments: No carotid bruits Cardiovascular: Rate and Rhythm: Normal rate and regular rhythm. Heart sounds: Normal heart sounds. No murmur (no edema) heard. No friction rub. No gallop. Pulmonary: Effort: Pulmonary effort is normal. Breath sounds: Normal breath sounds. No wheezing or rales. Chest: Chest wall: No tenderness. Abdominal: General: Bowel sounds are normal. Palpations: Abdomen is soft. There is no mass. Tenderness: There is no abdominal tenderness. There is no guarding. Comments: Tympanic, soft, NT Musculoskeletal: General: No deformity. Normal range of motion. Right shoulder: No swelling or effusion. Normal range of motion. Normal strength. Arms: Cervical back: Neck supple. Thoracic back: No swelling, signs of trauma, spasms, tenderness or bony tenderness. Normal range ofmotion. Lumbar back: No swelling, signs of trauma, spasms or tenderness. Normal range of motion. Lymphadenopathy: Cervical: No cervical adenopathy (no bruits). Skin: General: Skin is warm. Findings: No rash. Neurological: Mental Status: He is alert and oriented to person, place, and time. Cranial Nerves: No cranial nerve deficit. Deep Tendon Reflexes: Reflexes normal. Psychiatric: Judgment: Judgment normal. Assessment/Plan Diagnoses and all orders for this visit: Encounter for wellness examination (Primary) Assessment & Plan: Labs pending Flu declines Colonoscopy up to date, due 2030 F/u in 1 year for annual Mixed hyperlipidemia Assessment & Plan: Stable Continue pravastatin 40mg daily Essential hypertension Assessment & Plan: Bp in the office today BP Readings from Last 1 Encounters: 05/25/24 128/78 Continue current regimen of lisinopril 5mg daily metoprolol 50mg at night Recommend DASH diet, heart-healthy lifestyle, exercise. Discussed the risks of hypertension. F/u in 6 months Benign prostatic hyperplasia with weak urinary stream Assessment & Plan: Stable / clinically quiescent. Will continue to monitor. Managed by urology On flomax cialis and oxybutynin Situational anxiety Assessment & Plan: Patient reiterated no suicidal thoughts at this time; take medication as directed; contact 911 and go to the ER if becomes suicidal; HPI: Condition is stable A&P: Discussed/ordered labs, encouraged healthy, low carbohydrate lifestyle and at least 150min/week of exercise, continue on Bupropion 300 mg daily Spondylosis of lumbar region without myelopathy or radiculopathy Assessment & Plan: Chronic Worsening xray of the lumbar spine last year showed DDD, will repeat given recent heavy lifting Sent medrol dose back which will help with arthritic pain will refer to pain management F/u in 2 months Restless legs syndrome Assessment & Plan: Condition is stable A&P: Discussed/ordered labs, encouraged healthy, low carbohydrate lifestyle and at least 150min/week of exercise, continue Seeing Dr. Zaidi sleep medicine continue on CPAP, Mirapex 1.5 mg once daily at bedtime Obstructive sleep apnea syndrome Assessment & Plan: Continue following with sleep medicine Continue with cpap machine Class 2 severe obesity due to excess calories with serious comorbidity and body mass index (BMI) of36.0 to 36.9 in adult (HCC) Acute pain of right shoulder Assessment & Plan: New concern Worsening 2/2 heavy lifting Possible bursitis Referral to physical therapy Trial of medrol dose pack F/u in 2 months for monitoring, can consider ortho referral in the future Chronic midline thoracic back pain Assessment & Plan: Worsening new pain Will get xray of the thoracic spine Possible arthritis Sent steroid pain Physical therapy F/u in 2 months for monitoring Other orders - methylPREDNISolone (MEDROL DOSEPACK) 4 mg Dosepack; Take as directed on package. Side effects, risks, interactions reviewed with patient. Indications for testing discussed. Any further problems to contact us. He was told what to look out for and verbalized understanding. The patient was given the opportunity to have all questions answered today and was in agreement with the plan of care. La Kearney MD documented in this encounter Miscellaneous Notes * Assessment & Plan Note - La Kearney MD - 05/25/2024 9:07 AM CDT Associated Problem(s): Acute pain of right shoulder New concern Worsening 2/2 heavy lifting Possible bursitis Referral to physical therapy Trial of medrol dose pack F/u in 2 months for monitoring, can consider ortho referral in the future * Assessment & Plan Note - La Kearney MD - 05/25/2024 8:55 AM CDT Associated Problem(s): Chronic midline thoracic back pain Worsening new pain Will get xray of the thoracic spine Possible arthritis Sent steroid pain Physical therapy F/u in 2 months for monitoring * Assessment & Plan Note - La Kearney MD - 05/22/2024 7:12 AM CDT Associated Problem(s): Encounter for wellness examination Labs pending Flu declines Colonoscopy up to date, due 2030 F/u in 1 year for annual * Assessment & Plan Note - La Kearney MD - 05/22/2024 7:09 AM CDT Associated Problem(s): Obstructive sleep apnea syndrome Continue following with sleep medicine Continue with cpap machine * Assessment & Plan Note - La Kearney MD - 05/22/2024 7:09 AM CDT Associated Problem(s): Restless legs syndrome Condition is stable A&P: Discussed/ordered labs, encouraged healthy, low carbohydrate lifestyle and at least 150min/week of exercise, continue Seeing Dr. Zaidi sleep medicine continue on CPAP, Mirapex 1.5 mg once daily at bedtime * Assessment & Plan Note - La Kearney MD - 05/22/2024 7:08 AM CDT Associated Problem(s): Spondylosis of lumbar region without myelopathy or radiculopathy Chronic Worsening xray of the lumbar spine last year showed DDD, will repeat given recent heavy lifting Sent medrol dose back which will help with arthritic pain will refer to pain management F/u in 2 months * Assessment & Plan Note - La Kearney MD - 05/22/2024 7:07 AM CDT Associated Problem(s): Situational anxiety Patient reiterated no suicidal thoughts at this time; take medication as directed; contact 911 and go to the ER if becomes suicidal; HPI: Condition is stable A&P: Discussed/ordered labs, encouraged healthy, low carbohydrate lifestyle and at least 150min/week of exercise, continue on Bupropion 300 mg daily * Assessment & Plan Note - La Kearney MD - 05/22/2024 7:05 AM CDT Associated Problem(s): Benign prostatic hyperplasia with weak urinary stream Stable / clinically quiescent. Will continue to monitor. Managed by urology On flomax cialis and oxybutynin * Assessment & Plan Note - La Kearney MD - 05/22/2024 7:04 AM CDT Associated Problem(s): Essential hypertension Bp in the office today BP Readings from Last 1 Encounters: 05/25/24 128/78 Continue current regimen of lisinopril 5mg daily metoprolol 50mg at night Recommend DASH diet, heart-healthy lifestyle, exercise. Discussed the risks of hypertension. F/u in 6 months * Assessment & Plan Note - La Kearney MD - 05/22/2024 7:04 AM CDT Associated Problem(s): Hyperlipidemia Stable Continue pravastatin 40mg daily documented in this encounter Plan of Treatment Not on file documented as of this encounter Visit Diagnoses Diagnosis Encounter for wellness examination- Primary Mixed hyperlipidemia Essential hypertension Unspecified essential hypertension Benign prostatic hyperplasia with weak urinary stream Situational anxiety Spondylosis of lumbar region without myelopathy or radiculopathy Restless legs syndrome Restless legs syndrome (RLS) Obstructive sleep apnea syndrome Obstructive sleep apnea (adult) (pediatric) Class 2 severe obesity due to excess calories with serious comorbidity and body mass index (BMI) of 36.0 to 36.9 in adult (HCC) Acute pain of right shoulder Chronic midline thoracic back pain documented in this encounter Discontinued Medications Medication Sig Discontinue Reason Start Date End Da te HYDROcodone-acetaminophe n (NORCO) 5-325 mg per tabletIndications:Pain Take 1 tablet by mouth every 6 (six) hours as needed for pain Therapy completed 04/12/2024 05/25/2024 documented as of this encounter Care Teams Administrative Services Manager Relationship Specialty Start Date End Date La Kearney MD [address] [place] [address] DR LUCAS [address] [place] [id number] PCP - General Family Medicine 10/02/22 Mariaelena Zaidi MD Consulting Physician Sleep Medicine 07/12/21 documented as of this encounter
--- OUTSIDE RECORDS SUMMARY | 2024-09-17 12:47 | XMS_ITS | Encounter Summary ---
Author Organization [facility] Healthcare Address [address] [place] [address] Care Team Providers Care Camera Prototyping Engineer Name Role Phone Mariaelena Zaidi MD Unavailable La Kearney MD Primary Care Provide r Reason for Referral * MRI/CAT/PET Scan (Routine) - Closed Specialty Diagnoses / Procedures Referred By Dougac janice Referred To Contact Radiology Diagnoses Lymphadenopathy Procedures CT Abdomen Pelvis W Contrast Ramos Fraga MD Phone: tel: fax: [address] [phone] Referral ID Status Reason Start Date Expiration Date Visits Re quested Visits Authorized [id number] Closed 10/15/2023 11/13/2024 1 1 Reason for Visit * MRI/CAT/PET Scan (Routine) - Closed Specialty Diagnoses / Procedures Referred By Zaida camacho Referred To Contact Radiology Diagnoses Lymphadenopathy Procedures CT Abdomen Pelvis W Contrast Ramos Fraga MD Phone: tel: fax: [address] [phone] Referral ID Status Reason Start Date Expiration Date Visits Re quested Visits Authorized [id number] Closed 10/15/2023 11/13/2024 1 1 Encounter Details Date Type Department Care Team (Latest Contact Info) Description 12/13/2023 8:43 AM CDT - 12/13/2023 11:59 PM CDT Hospital Encounter [facility] [address] [place] [address] Lymphadenopathy Discharge Disposition: Discharge to home or self [...] you have a drink containing alc ohol? 2-4 times a month 10/07/2023 Q2: How many drinks containi ng alcohol do you have on a typical day when you are drinking? 5 or 6 10/07/2023 Q3: How often do you have si x or more drinks on one occasion? Less than monthly 10/07/2023 PHQ-2 Answer Date Recorded PHQ-2 Total Score (If total score is 3 or more points, staff should administer the PHQ-9) 0 10/07/2023 Personal Safety Answer Date Recorded Have you ever been in or are you currently in a harmful physical or emotional relationship or is someone making you feel afraid or unsafe? 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 20 tablet 3 01/29/2023 buPROPion XL (WELLBUTRIN XL) 300 mg 24 hr tablet TAKE 1 TABLET EVERY MORNING 100 tablet 12/09/2023 03/08/20 24 docusate sodium (COLACE) 100 mg capsuleIndications: constipation Take 1 capsule (100 mg total) by mouth 2 (two) times a day for 14 days 28 capsule 10/08/2023 04/14/20 24 lisinopriL (PRINIVIL,ZESTRIL) 5 mg tabletIndications:E ssential hypertension TAKE 1 TABLET NIGHTLY 100 tablet 09/09/2023 01/31/20 24 metoprolol XL (TOPROL-XL) 50 mg extended release tablet Take 1 tablet (50 mg total) by mouth nightly 09/09/2023 02/18/20 24 oxybutynin XL (Ditropan XL) 10 mg 24 hr tabletIndications:B ladder Hyperactivity Take 1 tablet (10 mg total) by mouth daily for 20 days 20 tablet 04/12/2022 04/14/20 24 pramipexole (MIRAPEX) 1.5 mg tabletIndications:R estless legs syndrome TAKE 1 TABLET THREE TIMES A DAY 100 tablet 1 12/04/2023 02/10/20 24 pravastatin (PRAVACHOL) 40 mg tabletIndications:H yperlipidemia, unspecified hyperlipidemia type Take 1 tablet (40 mg total) by mouth daily 30 tablet 10/01/2023 12/27/19 24 documented as of this encounter Discharge Disposition Disposition Code Departure Means Destination Discharge to home or self care documented in this encounter Plan of Treatment Not on file documented as of this encounter Procedures Procedure Name Priority Date/Time Associated Diagnosis Comments CT ABDOMEN PELVIS W CONTRAST Schedule Routine, Read Routine (OP Routine) 12/13/2023 9:25 AM CDT Lymphadenopathy documented in this encounter Results * CT Abdomen Pelvis W Contrast (12/13/2023 9:25 AM CDT) Anatomical Region Laterality Modality Body N/A Computed Tomogra phy 12/13/2023 11:2 0 AM CDT Narrative 12/13/2023 11:29 AM CDT EXAM DESCRIPTION: ?? CT ABDOMEN PELVIS W CONTRAST REASON FOR STUDY: ?? Intra-abdominal abscess, Lymphadenopathy ?? F/u from recent appendectomy, history of surgery on prostate ? TECHNIQUE: CT scan of the abdomen and pelvis performed with intravenous and ?? without ??oral contrast using helical scanning technique with dynamic intravenous contrast injection. Reconstructed coronal and sagittal MPR images reviewed. All images stored on PACS. Automated exposure control was used as a dose optimization technique for this examination. CONTRAST TYPE/DOSE: ?? 100mL of IOVERSOL 350 MG IODINE/ML INTRAVENOUS SYRINGE ?? injected via ?? intravenous COMPARISON: 10/07/2023. ??MRI pelvis 05/09/2022. ??Correlation with a CT urogram 05/09/2022. FINDINGS: LOWER CHEST: ?? The lung bases are predominantly clear. ??There is old granulomatous calcification in the right infrahilar region. ??Mild dilation distal esophagus having some food debris. LIVER: ?? The liver enhances normally with no focal hepatic lesion. ??The portal and hepatic veins are patent. GALLBLADDER: ?? No gallstones or overt inflammatory change. BILE DUCTS: ?? No biliary ductal dilation. SPLEEN: ?? Spleen size is normal. ??No focal splenic lesion. PANCREAS: ?? No pancreatic mass or inflammatory change. ?? ADRENALS: ?? Normal. KIDNEYS/URINARY TRACT: ?? No right renal calculus. ??No left renal calculus. ??No ureteral calculus. ??There is no hydronephrosis or hydroureter. ??There is a small amount of fluid urinary bladder. GI: ?? No evidence of bowel obstruction. ??The terminal ileum is normal. ??There has been interval appendectomy. ??The previous inflammatory change in the right lower quadrant associated with the appendix and base of the cecum has resolved. ??Only tiny lymph nodes in the right lower quadrant. ??Stomach and duodenum are normal. ??There is no pneumatosis. ??There has an area of stranding in the subcutaneous tissues left lower quadrant superficial to the rectus abdominus muscle may be port tract. ??Tiny fat containing scratch the small fat containing umbilical hernia. PERITONEUM: ?? No ascites or free air. ??No abscess. RETROPERITONEUM: ?? Persistent enlarged retroperitoneal soft tissue, posterior to the abdominal aorta in maximal dimension 4.3 x 3.1 cm, craniocaudal this is 7.9 cm seen anterior to the L3-L5 vertebral bodies. ??This appears similar to the most recent CT from 10/07/[address] urogram 05/09/2022. Other tiny retroperitoneal lymph nodes are seen. ??In addition, there is a right external iliac chain lymph node interposed between the right common iliac artery and the psoas, 1.2 x 1.1 cm (image 116). ??Small inguinal lymph nodes slightly more pronounced on the right compared with the left, the largest is 1.1 x 0.8 cm (image 154). REPRODUCTIVE: ?? The prostate is noted, given the history there may be a TURP defect. VASCULATURE: ?? Abdominal aorta is nonaneurysmal. MUSCULOSKELETAL: ?? Bone windows demonstrate no acute or aggressive osseous abnormality. ??Some areas of degenerative change with anterior osteophytic spurring. ??Posterior disc osteophyte complexes L1-2 and L3-4. OTHER: ?? No other abnormality. IMPRESSION: Interval appendectomy with resolution of the previous inflammatory change in the right lower quadrant. 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 ?? See the biopsy results from 02/06/2019. Other small retroperitoneal and mesenteric lymph nodes are unchanged. No other acute abnormality of the abdomen and pelvis. THIS IS AN ELECTRONICALLY VERIFIED FINAL REPORT 12/13/2023 11:29 AM - Electronically signed by ??Ziggy Almaguer M.D. CH: D: ??12/13/2023 11:27 AM T: ??12/13/2023 11:29 AM Report ID: [id number] Reading Location: ??[id number] Procedure Note Ziggy Almaguer Jr., MD - 12/13/2023 EXAM DESCRIPTION: CT ABDOMEN PELVIS W CONTRAST REASON FOR STUDY: Intra-abdominal abscess, Lymphadenopathy F/u from recent appendectomy, history of surgery on prostate TECHNIQUE: CT scan of the abdomen and pelvis performed with intravenousand without oral contrast using helical scanning technique with dynamic intravenous contrast injection. Reconstructed coronal and sagittal MPRimages reviewed. All images stored on PACS. Automated exposure control was usedas a dose optimization technique for this examination. CONTRAST TYPE/DOSE: 100mL of IOVERSOL 350 MG IODINE/ML INTRAVENOUSSYRINGE injected via intravenous COMPARISON: 10/07/2023. MRI pelvis 05/09/2022. Correlation with a CTurogram 05/09/2022. FINDINGS: LOWER CHEST: The lung bases are predominantly clear. There is old granulomatous calcification in the right infrahilar region. Mild dilation distal esophagus having some food debris. LIVER: The liver enhances normally with no focal hepatic lesion. Theportal and hepatic veins are patent. GALLBLADDER: No gallstones or overt inflammatory change. BILE DUCTS: No biliary ductal dilation. SPLEEN: Spleen size is normal. No focal splenic lesion. PANCREAS: No pancreatic mass or inflammatory change. ADRENALS: Normal. KIDNEYS/URINARY TRACT: No right renal calculus. No left renal calculus.No ureteral calculus. There is no hydronephrosis or hydroureter. There is a small amount of fluid urinary bladder. GI: No evidence of bowel obstruction. The terminal ileum is normal.There has been interval appendectomy. The previous inflammatory change in theright lower quadrant associated with the appendix and base of the cecum has resolved. Only tiny lymph nodes in the right lower quadrant. Stomach and duodenum are normal. There is no pneumatosis. There has an area ofstranding in the subcutaneous tissues left lower quadrant superficial to the rectus abdominus muscle may be port tract. Tiny fat containing scratch the smallfat containing umbilical hernia. PERITONEUM: No ascites or free air. No abscess. RETROPERITONEUM: Persistent enlarged retroperitoneal soft tissue,posterior to the abdominal aorta in maximal dimension 4.3 x 3.1 cm, craniocaudalthis is 7.9 cm seen anterior to the L3-L5 vertebral bodies. This appears similarto the most recent CT from 10/07/[address] urogram 05/09/2022. Other tiny retroperitoneal lymph nodes are seen. In addition, there is a right external iliac chain lymph node interposed between the right common iliac artery and the psoas, 1.2 x 1.1 cm (image 116). Small inguinallymph nodes slightly more pronounced on the right compared with the left, the largest is 1.1 x 0.8 cm (image 154). REPRODUCTIVE: The prostate is noted, given the history there may be aTURP defect. VASCULATURE: Abdominal aorta is nonaneurysmal. MUSCULOSKELETAL: Bone windows demonstrate no acute or aggressive osseous abnormality. Some areas of degenerative change with anterior osteophytic spurring. Posterior disc osteophyte complexes L1-2 and L3-4. OTHER: No other abnormality. IMPRESSION: Interval appendectomy with resolution of the previous inflammatory changein the right lower quadrant. 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 See the biopsy results from 02/06/2019. Other small retroperitoneal and mesenteric lymph nodes are unchanged. No other acute abnormality of the abdomen and pelvis. THIS IS AN ELECTRONICALLY VERIFIED FINAL REPORT 12/13/2023 11:29 AM - Electronically signed by Ziggy Almaguer M.D. CH: SWETHA Report ID: [id number] Reading Location: [id number] Ramos Fraga MD IMG CT PROCEDURE S Final Result documented in this encounter Visit Diagnoses Diagnosis Lymphadenopathy Enlargement of lymph nodes documented in this encounter Administered Medications Inactive Administered Medications - up to 3 most recent administrations Medication Order MAR Action Action Date Dose Rate Site ioversoL (OPTIRAY 350) syringe 100 mL 100 mL, intravenous, Once in imaging, contrast, Starting on Sat12/13/23 at 0859, For 1 dose Contrast Given 12/13/2023 9:17 AM CDT 100 mL documented in this encounter Orders Medications Ordered That Aden ht Not Have Been Administered Count Last Ordered Date First Ordered Date ioversoL (OPTIRAY 350) syringe 100 mL 1 01/2024 documented in this encounter Care Teams Camera Prototyping Engineer Relationship Specialty Start Date End Date La Kearney MD [address] [place] [address] [place] [id number] PCP - General Family Medicine 10/02/22 Mariaelena Zaidi MD Consulting Physician Sleep Medicine 07/12/21 documented as of this encounter
--- OUTSIDE RECORDS SUMMARY | 2024-09-17 12:47 | XMS_ITS | Encounter Summary ---
Author Organization [facility] Healthcare Address [address] [place] [address] Care Team Providers Care Associate Veterinarian Name Role Phone Mariaelena Zaidi MD Unavailable La Kearney MD Primary Care Provide r Reason for Visit * Reason Comments Vomiting * Auth/Cert (Routine) Specialty Diagnoses / Procedures Referred By Conttom t Referred To Contact Diagnoses Flank pain Ureteral stone with hydronephrosis Vomiting, unspecified vomiting type, unspecified whether nausea present Procedures NA Referral ID Status Reason Start Date Expiration Date Visits Re quested Visits Authorized [id number] 1 1 Encounter Details Date Type Department Care Team (Late st Contact Info) Description 04/13/2024 12:00 PM CDT - 04/13/2024 1:30 PM CDT Surgery [facility] Operating Room [address] [place] [id number] [place] [address] [place] [id number] LEFT CYSTOSCOPY, LEFT URETEROSCOPY WITH LASER LITHOTRIPSY, PLACEMENT URETERAL STENT LEFT, RETROGRADE PYELOGRAM Surgery Details Date/Time Status Location OR Service Patient Class Case Class Case Type Trauma Case? 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 Gender Identity Not on file Sexual Orientation Not on file documented as of this encounter Last Filed Vital Signs Vital Sign Reading Time Taken Comments Blood Pressure 130/68 04/13/2024 1:30 PM CDT Pulse 68 04/13/2024 1:30 PM CDT Temperature 36.5 ??C (97.7 ??F) 04/13/2024 1:23 PM CD T Respiratory Rate 23 04/13/2024 1:30 PM CDT Oxygen Saturation 100% 04/13/2024 1:30 PM CDT Inhaled Oxygen Concentration - - Weight 124.3 kg (274 lb) 04/13/2024 7:48 AM CDT Height 188 cm (6' 2 ) 04/13/2024 11:02 AM CDT Body Mass Index 36.8 04/13/2024 2:24 PM CDT documented in this encounter Discharge Summaries * Jillian South NP - 04/14/2024 11:09 AM CDT Inpatient Discharge Summary [facility] Patient Name - Jaden Clement Patient Age - 53 yrs Patient - [id number] [facility] - [id number] Admitting Provider, : Ben Rosas DO Discharge Provider, MD: Ramos Garcia DO Primary Care Physician at Discharge: La Kearney MD [phone] Admission Date: 04/13/2024 Discharge Date/time: 04/14/2024 Admission Location: [facility] LOS - LOS: 0 days DETAILS OF HOSPITAL STAY Hospital Problems/Diagnoses Principal Problem: Ureteral stone with hydronephrosis Active Problems: JENNIFER (acute kidney injury) (HCC) Reason for Hospitalization: vomiting Hospital Course: 53-year-old male with history of hypertension presenting with complaints of nausea, vomiting, and left flank pain. The pain has been going on for about 4 days. He also has not had a bowel movement in the past 3 days. He has no fever, or chills but now has some burning and pain withurination. He drinks 1-[address] Pepper[address] KUB done yesterday showed an obstructive 7 mm stone and he has been admitted for further evaluation. Discharge Details Physical Exam at Discharge: Discharge Condition: fair Pulse: 66 Resp: 20 BP: 135/64 Temp: 36.8 ??C (98.2 ??F) Weight: 130 kg (286 lb 9.6 oz) General: awake, alert, oriented to person, place, and time. No acute distress Eyes: no scleral icterus, extraocular motion is intact, pupils are equal Neck: supple Pharynx: No gross oral lesion, tongue midline, mucosa moist Lungs: clear to auscultation with no wheezes or rales Heart: normal rate, normal rhythm, normal s1 and s2, no murmur noted Abd: present bowel sounds, Non Tender, Non distended Extremities: No gross edema, strength exam is 5/5 and symmetric Neuro: CN 2-12 is grossly intact, has no focal weakness Musculoskeletal: no gross joint erythema, edema, tenderness Psychiatric: normal affect and mood Pertinent Exam Findings at Discharge: Afebrile, hemodynamically stable. Pain well controlled, tolerating diet. Spontaneously voiding. Discharge Disposition: Discharge to home or self care Code Status at Discharge: Full Code Active Issues & Recommended Plan for Follow-up: Ureterolithiasis with hydronephrosis - CT imaging with 7mm obstructing calculus in distal left ureter and moderate hydroureteronephrosis - Urology consulted - OR (04/13): cystourethroscopy, left retrograde pyelogram, laser lithotripsy and basket stone extraction, placement of JJ stent on left side - Stent to remain in place for 2 weeks - UA not indicative of infection - Discharge with ciprofloxacin, pain control, spasm control, stool softeners - Follow up with urology in 1-2 weeks Acute kidney injury, resolved - Cr on admission 1.74, improved to 1.2 after fluid resuscitation and OR Hypertension/hyperlipidemia - Continue home regimen Allergies: Patient has no known allergies. Discharge Medications: Your medication list START taking these medications Instructions Last Dose Given Next Dose Due ciprofloxacin 500 mg tablet Commonly known as: CIPRO 500 mg, oral, 2 times daily ketorolac 10 mg tablet Commonly known as: TORADOL 10 mg, oral, Every 6 hours PRN oxyBUTYnin XL 10 mg 24 hr tablet Commonly known as: DITROPAN-XL 10 mg, oral, Daily phenazopyridine 200 mg tablet Commonly known as: PYRIDIUM 200 mg, oral, 3 times daily PRN senna-docusate 8.6-50 mg Commonly known as: PERICOLACE 2 tablets, oral, 2 times daily tamsulosin 0.4 mg extended release capsule Commonly known as: FLOMAX 0.4 mg, oral, Nightly CONTINUE taking these medications Instructions Last Dose Given Next Dose Due buPROPion XL 300 mg 24 hr tablet Commonly known as: WELLBUTRIN XL 300 mg, oral, Every morning HYDROcodone-acetaminophen 5-325 mg per tablet Commonly known as: NORCO 1 tablet, oral, Every 6 hours PRN lisinopriL 5 mg tablet Commonly known as: PRINIVIL,ZESTRIL 5 mg, oral, Nightly metoprolol XL 50 mg extended release tablet Commonly known as: TOPROL-XL 50 mg, oral, Nightly pramipexole 1.5 mg tablet Commonly known as: MIRAPEX 1.5 mg, oral, 3 times daily pravastatin 40 mg tablet Commonly known as: PRAVACHOL 40 mg, oral, Daily tadalafiL 20 mg tablet Commonly known as: CIALIS 20 mg, oral, Daily PRN, Max 1 daily. STOP taking these medications docusate sodium 100 mg capsule Commonly known as: COLACE [facility] [place] [place] [facility] [facility] [address] [facility] [address], [facility] [id number] ciprofloxacin 500 mg tablet ketorolac 10 mg tablet oxyBUTYnin XL 10 mg 24 hr tablet phenazopyridine 200 mg tablet senna-docusate 8.6-50 mg tamsulosin 0.4 mg extended release capsule Time Spent in Discharge Process: I have spent 40 minutes on discharge planning activities. Time spent was on Follow up , Counselling with patient/family, discharge exam, and parent/patient education Please schedule an appointment with the following provider(s): [facility] [address] [place] [address] [address] [facility] [phone] Please schedule follow up appointment in 2 weeks for stent removal ANCILLARY INFORMATION Other Procedures & Diagnostic Tests: FL Retro Pyelo (In Or) Result Date: 04/13/2024 EXAM DESCRIPTION: FL RETRO PYELO (IN OR) REASON FOR STUDY: pain. Previous CT of 04/12/2024 demonstrates left ureteral lithiasis. COMPARISON: CT dated 04/12/2024 RADIATION DOSE: Dose: [id number] mGycm2 Dose Area Product (DAP) Number of views: 13 TECHNIQUE: Intraoperative fluoroscopy was provided to perform retrograde pyelogram. FINDINGS: Images are not labeled as to left or right. Wire of the paraspinous region noted at the lumbar spine level noted. Subsequent injection of contrast into the ureter.Eventual visualization of the wire and catheter within upper pole caliceal structures. Final image demonstrates the inferior aspect of the double-J ureteral stent. IMPRESSION: 1. Retrograde pyelogramwith placement of double-J ureteral stent. THIS IS AN ELECTRONICALLY VERIFIED FINAL REPORT :23 PM - Electronically signed by Mando Dominguez M.D. JS: [email or web address] D: :23 PM Report ID: [id number] Reading Location: [id number] Recent Labs: Recent Labs Lab Units 04/14/24 0350 04/13/24 0755 04/12/24 0501 WBC K/cumm 9.1 8.6 4.9 HEMOGLOBIN g/dL 12.2* 13.7 14.4 HEMATOCRIT % 35.2* 38.9 41.8 PLATELETS K/cumm 159 174 213 Recent Labs Lab Units 04/14/24 0350 04/13/24 0755 04/12/24 0501 WBC K/cumm 9.1 8.6 4.9 HEMOGLOBIN g/dL 12.2* 13.7 14.4 HEMATOCRIT % 35.2* 38.9 41.8 PLATELETS K/cumm 159 174 213 NEUTROS PCT % 83.1 79.2 64.4 LYMPHS PCT % 9.4 11.5 22.9 MONOS PCT % 6.9 7.8 7.9 EOS PCT % 0.0 0.7 2.6 Recent Labs Lab Units 04/14/24 03504/13/24 0755 04/12/24 0501 SODIUM mmol/L 136 135 140 POTASSIUM PLASMA mmol/L 4.4 4.1 4.0 CHLORIDE mmol/L 104 100 104 CO2 mmol/L 22 23 24 BUN SERUM mg/dL 18 17 15 CREATININE mg/dL 1.20 1.74* 1.35* [id number] mL/min/1.73 m2 71 46* 62 GLUCOSE mg/dL 127 111 117 CALCIUM mg/dL 8.7 8.6 9.1 ALBUMIN g/dL 3.7 4.0 4.5 Recent Labs Lab Units 04/14/24 0350 04/13/24 0755 04/12/24 0501 SODIUM mmol/L 136 135 140 POTASSIUM PLASMA mmol/L 4.4 4.1 4.0 CHLORIDE mmol/L 104 100 104 CO2 mmol/L 22 23 24 ANIONGAP mmol/L 10 11 12 GLUCOSE mg/dL 127 111 117 BUN SERUM mg/dL 18 17 15 CREATININE mg/dL 1.20 1.74* 1.35* CALCIUM mg/dL 8.7 8.6 9.1 ALBUMIN g/dL 3.7 4.0 4.5 ALK PHOS Units/L 79 96 101 ALT Units/L 21 31 40 AST Units/L 14 21 26 BILIRUBIN TOTAL mg/dL 0.5 0.9 0.6 Recent Labs Lab Units 04/14/24 0350 04/13/24 0755 04/12/24 0501 ALK PHOS Units/L 79 96 101 BILIRUBIN TOTAL mg/dL 0.5 0.9 0.6 TOTAL PROTEIN g/dL 5.6* 6.0* 6.6 ALT Units/L 21 31 40 AST Units/L 14 21 26 Lab Results Component Value Date GLUCOSE 127 04/14/2024 GLUCOSE 111 04/13/2024 GLUCOSE 117 04/12/2024 Isolation Status: No active isolations Nutritional Status and in-house recommendations: Dietary Orders (From admission, onward) Start Ordered 04/13/24 1431 Adult Diet Regular Diet effective now Question: ([facility]) Diet Type Answer: Regular 04/13/24 1430 Anticoagulation Indication: INR: No results found for requested labs within last 30 days. Warfarin Administrations (last 168 hours) None Oxygen Status: O2 Therapy for the past 12 hrs: O2 Therapy 04/14/24 0717 None (Room air) 04/14/24 0319 Supplemental oxygen Wound Care Instructions Other Instructions Call provider for: Temperature -Temperature greater than 101 degrees F Call provider for: persistent nausea or vomiting Call provider for: severe uncontrolled pain Contact clinic prior to visit if COVID positive If you are positive for Covid, please contact the clinic prior to your appointment for further coordination of your care Special Instructions Please continue to hydrate. Avoid excessive amounts of caffeine. Your stent will be in place for 2 weeks, after which time you will follow up with urology to discuss removal. Please return to the ED or call the urology office with any fever/chills, inability to urinate, increasing pain not controlled by prescription medication, or other concerns. Patient Emergency Contact: Primary Emergency Contact: Rhiannon Clement Immunization Status at Discharge Immunization History Administered Date(s) Administered Tdap 07/26/2017, 09/30/2019 ZOSTER Recombinant 08/19/2019, 10/27/2019 Jillian South NP Cosigned by Ramos Garcia DO at 04/14/2024 5:14 PM CDT documented in this encounter Discharge Instructions * Attachments The following attachments cannot be sent through Care Everywhere. * Kidney Stones (Discharge Care) (Citizen [place]) * Ureteral Stent Placement (Discharge Care) (Citizen Of [place]) * Tamsulosin (By mouth) (Citizen Of [place]) * Oxybutynin (By mouth) (Citizen Of [place]) * Phenazopyridine (By mouth) (Citizen Of [place]) * Laxative, Stool Softeners (By mouth) (Citizen Of [place]) * Ketorolac (By mouth) (Citizen [place]) * Ciprofloxacin (By mouth) (Citizen Of [place]) documented in this encounter Medications at Time of Discharge lisinopriL (PRINIVIL,ZESTRIL) 5 mg tabletIndications:E ssential hypertension Take 1 tablet (5 mg total) by mouth nightly 100 tablet 3 02/18/2024 metoprolol XL (TOPROL-XL) 50 mg extended release tabletIndications:E ssential hypertension Take 1 tablet (50 mg total) by mouth nightly 90 tablet 3 02/18/2024 02/18/20 25 oxyBUTYnin XL (DITROPAN-XL) 10 mg 24 hr tablet Take 1 tablet (10 mg total) by mouth daily 30 tablet 04/14/2024 phenazopyridine (PYRIDIUM) 200 mg tablet Take 1 tablet (200 mg total) by mouth 3 (three) times a day as needed for bladder spasms 9 tablet 04/14/2024 pramipexole (MIRAPEX) 1.5 mg tabletIndications:R estless legs syndrome TAKE 1 TABLET THREE TIMES A DAY 100 tablet 10 02/10/2024 pravastatin (PRAVACHOL) 40 mg tabletIndications:H yperlipidemia, unspecified hyperlipidemia type TAKE 1 TABLET DAILY 90 tablet 1 12/27/2023 senna-docusate (PERICOLACE) 8.6-50 mg Take 2 tablets by mouth 2 (two) times a day 120 tablet 04/14/2024 tadalafiL (CIALIS) 20 mg tabletIndications:E rectile dysfunction due to arterial insufficiency Take 1 tablet (20 mg total) by mouth daily as needed for erectile dysfunction Max 1 daily. 20 tablet 3 01/29/2023 tamsulosin (FLOMAX) 0.4 mg extended release capsule Take 1 capsule (0.4 mg total) by mouth nightly 30 capsule 04/14/2024 buPROPion XL (WELLBUTRIN XL) 300 mg 24 hr tablet TAKE 1 TABLET EVERY MORNING 100 tablet 1 03/08/2024 09/04/20 24 ciprofloxacin (CIPRO) 500 mg tablet Take 1 tablet (500 mg total) by mouth 2 (two) times a day 6 tablet 04/14/2024 08/19/20 24 HYDROcodone-acetami nophen (NORCO) 5-325 mg per tabletIndications:P ain Take 1 tablet by mouth every 6 (six) hours as needed for pain 12 tablet 04/12/2024 05/25/20 24 ketorolac (TORADOL) 10 mg tablet Take 1 tablet (10 mg total) by mouth every 6 (six) hours as needed for pain 30 tablet 04/14/2024 08/19/20 24 documented as of this encounter Ordered Prescriptions Prescription Sig Dispense Quantity Refills Last Filled Start Date End Date phenazopyridine (PYRIDIUM) 200 mg tablet Take 1 tablet (200 mg total) by mouth 3 (three) times a day as needed for bladder spasms 9 tablet 04/14/2024 tamsulosin (FLOMAX) 0.4 mg extended release capsule Take 1 capsule (0.4 mg total) by mouth nightly 30 capsule 04/14/2024 oxyBUTYnin XL (DITROPAN-XL) 10 mg 24 hr tablet Take 1 tablet (10 mg total) by mouth daily 30 tablet 04/14/2024 senna-docusate (PERICOLACE) 8.6-50 mg Take 2 tablets by mouth 2 (two) times a day 120 tablet 04/14/2024 ketorolac (TORADOL) 10 mg tablet Take 1 tablet (10 mg total) by mouth every 6 (six) hours as needed for pain 30 tablet 04/14/2024 4 ciprofloxacin (CIPRO) 500 mg tablet Take 1 tablet (500 mg total) by mouth 2 (two) times a day 6 tablet 04/14/2024 4 documented in this encounter Discharge Disposition Disposition Code Departure Means Destination Comment s Discharge to home or self care documented in this encounter Progress Notes * Lalito Irene MD - 04/14/2024 12:51 PM CDT Images from the original note were not included. Urology Inpatient Smart Progress Note ID: This is a 53 y.o. male POD 1 s/p L URS/LL/stent. 24 hour events: - to OR SUBJECTIVE: The patient is doing well. Denies fevers, chills, nausea, vomiting. His pain has resolved. Has beenambulating. Noelle diet with flatus. VITALS: BP 135/64 (BP Location: Left arm, Patient Position: Lying) Pulse 66 Temp 36.8 ??C (98.2 ??F) (Temporal) Resp 20 Ht 188 cm (6' 2 ) Wt 130 kg (286 lb 9.6 oz) SpO2 94% BMI 36.80 kg/m?? PHYSICAL EXAM: Gen: in NAD Resp: unlabored breathing Abd: soft, NTND : no valdez ASSESSMENT: This is a 53 y.o. male with Distal left ureteral stone status post ureteroscopic stone extraction, doing well, creatinine down. Pain control. May be discharged home from a urologic perspective. Please see prior note about discharge medication recommendations. I have arranged follow-up for stent pull with me in 2 weeks. * Lalito Irene MD - 04/13/2024 1:19 PM CDT The patient underwent an uncomplicated ureteroscopy, and laser lithotripsy with removal of the stone. The patient may be discharged home from a urologic perspective once they are stable from the medicine perspective. Patient must void prior to discharge. Please discharge patient home with the following medication regimen (UNLESS THERE ARE CONTRAINDICATIONS/ALLERGIES. ALSO PLEASE RENALLY DOSE IF NECESSARY) Ciprofloxacin 500mg BID, disp 6, 0 refills Willet 5/325 q6 hrs PRN pain, disp 28, 0 refills Colace 100mg PO BID disp 60, 0 refills Toradol 10mg PO q6 hrs PRN pain, disp 30,0 refills Oxybutynin XR 10mg PO qday, disp 30, 0 refills Flomax 0.4mg qbedtime, disp 30, 0 refills Pyridium 200mg TID PRN dysuria, disp 9, [address] Irene with any questions documented in this encounter H&P Notes * Janet Escoto MD - 04/13/2024 8:08 PM CDT History and Physical CHIEF COMPLAINT Chief Complaint Patient presents with Vomiting HPI: 53-year-old male with history of hypertension presenting with complaints of nausea, vomiting, and left flank pain. The pain has been going on for about 4 days. He also has not had a bowel movement inthe past 3 days. He has no fever, or chills but now has some burning and pain with urination. He drinks 1-[address] Chavez[address] CT KUB done yesterday showed an obstructive 7 mm stone and he has been admitted for further evaluation. Past Medical History: Diagnosis Date Anxiety disorder Anxiety Arrhythmia Depression Depression Enlarged prostate Erectile dysfunction Generalized abdominal pain 06/27/2019 GERD (gastroesophageal reflux disease) Hemorrhoids Hyperlipidemia Hypertension Hypoglycemia Palpitation Rectal pain 05/25/2020 Added automatically from request for surgery [id number] Sleep apnea Urinary retention Past Surgical History: Procedure Laterality Date APPENDECTOMY 10/07/2023 BAND HEMORRHOIDECTOMY BIOPSY ABDOMEN RETROPERITONEAL N/A 02/06/2019 CARPAL TUNNEL RELEASE Bilateral COLONOSCOPY 08/26/2020 1st KNEE ARTHROSCOPY Right 02/2006 rt ac resection PROSTATE SURGERY SHOULDER SURGERY Right Medications Prior to Admission Medication Sig Dispense Refill Last Dose buPROPion XL (WELLBUTRIN XL) 300 mg 24 hr tablet TAKE 1 TABLET EVERY MORNING 100 tablet 1 04/12/2024 HYDROcodone-acetaminophen (NORCO) 5-325 mg per tablet Take 1 tablet by mouth every 6 (six) hours asneeded for pain 12 tablet 0 04/13/2024 at 0645 lisinopriL (PRINIVIL,ZESTRIL) 5 mg tablet Take 1 tablet (5 mg total) by mouth nightly 100 tablet 3 04/12/2024 at 2100 metoprolol XL (TOPROL-XL) 50 mg extended release tablet Take 1 tablet (50 mg total) by mouth nightly 90 tablet 3 04/12/2024 at 210 pramipexole (MIRAPEX) 1.5 mg tablet TAKE 1 TABLET THREE TIMES A DAY 100 tablet 10 04/12/2024 at 2100 pravastatin (PRAVACHOL) 40 mg tablet TAKE 1 TABLET DAILY 90 tablet 1 04/12/2024 at 0900 docusate sodium (COLACE) 100 mg capsule Take 1 capsule (100 mg total) by mouth 2 (two) times a day for 14 days 28 capsule 0 tadalafiL (CIALIS) 20 mg tablet Take 1 tablet (20 mg total) by mouth daily as needed for erectile dysfunction Max 1 daily. 20 tablet 3 No Known Allergies Current Facility-Administered Medications Medication Dose Route Frequency Provider Last Rate Last Admin acetaminophen (TYLENOL) tablet 650 mg 650 mg oral Q6H PRN Janet Escoto MD atorvastatin (LIPITOR) tablet 10 mg 10 mg oral Nightly Janet Escoto MD bisacodyl EC (DULCOLAX EC) tablet 10 mg 10 mg oral Once Janet Escoto MD bisacodyl EC (DULCOLAX EC) tablet 10 mg 10 mg oral Daily PRN Janet Escoto MD [START ON 04/14/2024] buPROPion XL (WELLBUTRIN XL) 24 hour tablet 300 mg 300 mg oral QAM Janet Escoto MD cefdinir (OMNICEF) capsule 300 mg 300 mg oral BID Janet Escoto MD HYDROcodone-acetaminophen (NORCO) 5-325 mg per tablet 1 tablet 1 tablet oral QID PRN Janet Escoto MD HYDROmorphone (DILAUDID) injection 1 mg 1 mg intravenous Q3H PRN Janet Escoto MD Lactated Ringer's (LR) infusion 125 mL/hr intravenous Continuous Janet Escoto MD 125 mL/hr at 04/13/24 1630 125 mL/hr at 04/13/24 1630 [Held by Provider] lisinopriL (PRINIVIL,ZESTRIL) tablet 5 mg 5 mg oral Nightly Janet Escoto MD magnesium hydroxide (MILK OF MAGNESIA) 80 mg/mL (33.3 mg/mL as elemental magnesium) oral [id number] mL 30 mL oral Daily PRN Janet Escoto MD metoprolol XL (TOPROL-XL) extended release tablet 50 mg 50 mg oral Nightly Janet Escoto MD mineral oil (FLEET MINERAL OIL) enema 133 mL 1 enema rectal Daily PRN Janet Escoto MD ondansetron (ZOFRAN) injection 4 mg 4 mg intravenous Once PRN Janet Escoto MD ondansetron ODT (ZOFRAN-ODT) disintegrating tablet 4 mg 4 mg oral Q6H PRN Idalia Young MD Or ondansetron (ZOFRAN) injection 4 mg 4 mg intravenous Q6H PRN Idalia Young MD ondansetron ODT (ZOFRAN-ODT) disintegrating tablet 4 mg 4 mg oral Once PRN Janet Escoto MD polyethylene glycol (MIRALAX) packet 17 g 17 g oral Daily PRN Janet Escoto MD pramipexole (MIRAPEX) tablet 1.5 mg 1.5 mg oral TID Janet Escoto MD senna-docusate (PERICOLACE) 8.6-50 mg per tablet 2 tablet 2 tablet oral BID Janet Escoto MD Social History Tobacco Use Smoking status: Never [...] or 2 Frequency of Binge Drinking: Never Family History Problem Relation Age of Onset Cancer Mother lung Hypertension Mother Leukemia Mother Cancer Father lung Throat cancer Father Review of Systems: 1. Constitutional Denies: weight loss, weight gain, fever, chills, night sweats, fatigue 2. Eyes Denies: change in vision, double vision, eye pain, eye discharge, icterus 3. ENT Denies: change in hearing, ear pain, ear discharge, nose bleed, nasal congestion, sore throat 4. Respiratory Denies: SOB, wheezing, cough, sputum, hemoptysis 5. CV Denies: chest pain, palpitations, syncope, edema, dyspnea 6. GI Denies:decreased appetite, diarrhea, melena, BRBPR 7. Denies: dysuria, frequency, hematuria, nocturia, urgency 8. Metabolic Denies: cold intolerance, heat intolerance, polyphagia, polydipsia 9. Neurologic Denies: headache, dizziness, seizure, change in mental status, focal weakness, focal numbness 10. Musculoskeletal Denies: myalgia, joint pain, joint redness, joint swelling, extremity pain 11. Hematologic Denies: bleeding, bruising, hematoma, lymphadenopathy, icterus OBJECTIVE Vitals: Arrival Vitals Temp 04/13/24 0748 36.9 ??C (98.4 ??F) Pulse 04/13/24 0748 67 Resp 04/13/24 0748 19 BP 04/13/24 0748 169/81 SpO2 04/13/24 0748 96 % Temp src 04/13/24 0748 Temporal Heart Rate Source 04/13/24 1102 Pulse Oximetry Patient Position 04/13/24 1424 Lying BP Location 04/13/24 1424 Left arm FiO2 (%) -- 24hr Min/Max: Temp Min: 36.1 ??C (97 ??F) Max: 36.9 ??C (98.4 ??F) Pulse Min: 56 Max: 79 BP Min: 111/56 Max: 169/81 Resp Min: 10 Max: 27 SpO2 Min: 92 % Max: 100 % Most Recent : Vitals: 04/13/24 1950 BP: 129/67 Pulse: 74 Resp: 18 Temp: 36.6 ??C (97.9 ??F) SpO2: 96% Intake/Output Summary (Last 24 hours) at 04/13/20242007 Last data filed at 04/13/2024 1840 Gross per 24 hour Intake 970 ml Output 825 ml Net 145 ml Physical exam: General: awake, alert, oriented to person, place, and time. No acute distress Eyes: no scleral icterus, extraocular motion is intact, pupils are equal Neck: supple Pharynx: No gross oral lesion, tongue midline, mucosa moist Lungs: clear to auscultation with no wheezes or rales Heart: normal rate, normal rhythm, normal s1 and s2, no murmur noted Abd: present bowel sounds, Non Tender, Non distended Extremities: No gross edema, strength exam is 5/5 and symmetric Neuro: CN 2-12 is grossly intact, has no focal weakness Musculoskeletal: no gross joint erythema, edema, tenderness Psychiatric: normal affect and mood Lab/Radiology/Diagnostic Review: Recent Results (from the past 24 hour(s)) CBC with auto differential Collection Time: 04/13/24 7:55 AM Result Value Ref Range WBC 8.6 3.8 - 9.9 K/cumm Hgb 13.7 13.0 - 17.5 g/dL Hct 38.9 38.9 - 50.3 % Plt 174 150 - 400 K/cumm MPV 9.5 9.1 - 12.3 fL RBC 4.27 (L) 4.30 - 5.80 M/cumm MCV 91.1 81.3 - 96.4 fL MCH 32.1 27.1 - 33.3 pg MCHC 35.2 32.3 - 35.7 g/dL RDW CV 12.2 11.1 - 14.9 % RDW SD 40.4 35.7 - 48.1 fL NRBC abs 0.00 0.00 - 0.01 K/cumm Comprehensive metabolic panel Collection Time: 04/13/24 7:55 AM Result Value Ref Range Sodium 135 135 - 145 mmol/L Potassium, pl 4.1 3.3 - 4.9 mmol/L Chloride 100 97 - 110 mmol/L CO2 23 22 - 32 mmol/L Anion gap 11 2 - 15 mmol/L BUN 17 6 - 25 mg/dL Creatinine 1.74 (H) 0.80 - 1.30 mg/dL Glucose 111 70 - 199 mg/dL Calcium 8.6 8.5 - 10.3 mg/dL Bilirubin, total 0.9 0.1 - 1.2 mg/dL Protein, pl 6.0 (L) 6.5 - 8.5 g/dL Albumin 4.0 3.5 - 5.0 g/dL Alk phos 96 40 - 130 Units/L ALT 31 7 - 55 Units/L AST 21 10 - 50 Units/L Differential, auto Collection Time: 04/13/24 7:55 AM Result Value Ref Range Neutrophil abs 6.8 (H) 1.5 - 6.5 K/cumm Imm gran abs 0.0 0.0 - 0.1 K/cumm Lymphocyte abs 1.0 0.8 - 3.3 K/cumm Monocyte abs 0.7 0.2 - 0.8 K/cumm Eosinophil abs 0.1 0.0 - 0.5 K/cumm Basophil abs 0.0 0.0 - 0.1 K/cumm Neutrophil pct 79.2 % Imm gran pct 0.5 % Lymphocyte pct 11.5 % Monocyte pct 7.8 % Eosinophil pct 0.7 % Basophil pct 0.3 % eGFR Collection Time: 04/13/24 7:55 AM Result Value Ref Range eGFR 46 (L) >=60 mL/min/1.73 m2 Urinalysis reflex to microscopic and culture Urine Collection Time: 04/13/24 8:34 AM Specimen: Urine Result Value Ref Range Color, ur Yellow Yellow Clarity, ur Clear Clear Specific gravity, ur 1.027 1.003 - 1.030 pH, urine 6.0 Protein, ur ql Trace Negative Glucose, ur ql Negative Negative Ketones, ur Negative Negative Bilirubin, ur Negative Negative Blood, ur Trace (A) Negative Urobilinogen, ur <2.0 <2.0 mg/dL Nitrite, ur Negative Negative Leukocyte esterase, ur 2+ (A) Negative UA reflex comment Reflex to microscopic UA will be performed. Sepsis Lactate w/ Reflex Collection Time: 04/13/24 8:34 AM Result Value Ref Range Sepsis Lactate 0.7 0.7 - 2.0 mmol/L Urinalysis, microscopic only Collection Time: 04/13/24 8:34 AM Result Value Ref Range WBC, ur 6-10 (A) 0 - 5 /HPF RBC, ur 6-10 (A) 0 - 2 /HPF Epithelial cells, squamous, ur 1-5 0 - 5 /HPF Mucous, ur Present (A) Culture Reflex Comment Reflex conditions for urine culture (WBC >10) not met. FL Retro Pyelo (In Or) Result Date: 04/13/2024 Narrative: EXAM DESCRIPTION: FL RETRO PYELO (IN OR) REASON FOR STUDY: pain. Previous CT of 04/12/2024 demonstrates left ureteral lithiasis. COMPARISON: CT dated 04/12/2024 RADIATION DOSE: Dose: 0.91643 mGycm2 Dose Area Product (DAP) Number of views: 13 TECHNIQUE: Intraoperative fluoroscopy was provided to perform retrograde pyelogram. FINDINGS: Images are not labeled as to left or right. Wire of the paraspinous region noted at the lumbar spine level noted. Subsequent injection of contrast into the ureter. Eventual visualization of the wire and catheter within upper pole caliceal structures. Final image demonstrates the inferior aspect of the double-J ureteral stent. IMPRESSION: 1. Retrograde pyelogram with placement of double-J ureteral stent. THIS IS AN ELECTRONICALLY VERIFIED FINAL REPORT 04/13/2024 5:23 PM - Electronically signed by Mando Dominguez M.D. JS: CHELSIE Report ID: [id number] Reading Location: [id number] CT KUB Stone WO Contrast Result Date: 04/12/2024 Narrative: EXAM DESCRIPTION: CT KUB STONE WO CONTRAST REASON FOR STUDY: Flank pain, kidney stone suspected Pt c/o left side flank pain for the last couple hours. Pt has vomited twice. No hx of stonesin past Hx of appendectomy and prostate surgery No hx of cancer TECHNIQUE: CT scan of the abdomen and pelvis performed without intravenous and without oral contrast using helical scanning technique. Reconstructed coronal and sagittal MPR images reviewed. All images stored on PACS. Automated exposure control was used as a dose optimization technique for this examination. COMPARISON: 12/13/2023 FINDINGS: LOWER CHEST: Lung bases clear. Mild cardiomegaly. No visible coronary artery calcification. No effusion. LIVER/BILIARY: Cjdv-qy-kwvvntne hepatic steatosis. Biliary tree normal in caliber. GALLBLADDER: Normal. SPLEEN: Normal. PANCREAS: Normal. ADRENAL GLANDS: Normal. KIDNEYS/URINARY TRACT: 7 mm distal ureteral calculus with moderate hydroureteronephrosis. No other urolithiasis is seen. GI: Stomach and small bowel appear normal. Colon unremarkable. Appendectomy. OTHER ABDOMINAL/PELVIS: Major vascular structures are normal in caliber. Cluster of lymph nodes behind the aorta unchanged. No free fluid. MSK: Moderate disc disease and facet arthropathy. BODY WALL: Unremarkable. IMPRESSION: 7 mm obstructing calculus in the distal left ureter with moderate hydroureteronephrosis. THIS IS AN ELECTRONICALLY VERIFIED FINAL REPORT 04/12/2024 6:22 AM - Electronically signed by Ben Noland M.D. AR: MICHA Report ID: [id number] Reading Location: [id number] A/P Ureteral stone with hydronephrosis. Status post left ureteral stent which will remain for 2 weeks, laser lithotripsy and stone extraction. Continue empiric Omnicef due to abnormal UA and follow up onurine culture results. Pain control with Willet and p.r.n. Dilaudid. [facility] 2 weeks. Acute kidney injury. Hold lisinopril and continue LR at 125 cc/hour. Repeat lab in a.m.. Hypertension. Resume Toprol-XL and hold lisinopril due to JENNIFER. Obesity, class 2. Weight loss advised Constipation. On pericolace b.i.d. and Dulcolax. These fluid and electrolyte abnormalities are being treated, evaluated or monitored: No fluid or electrolyte disorders SCD Code status: Full Anticipated length of stay is 1-2 days My total encounter time was 55 minutes which was spent in the activities documented in the note. This includes time spent prior to the visit and after the visit in direct care of the patient. This time does not include time spent in any separately reportable services. Voice recognition software [employer] was used dictate and transcribe this document. Structural Rigger variances may occur. Despite proofreading, typographical errors may occur. Janet Escoto MD documented in this encounter Consult Notes * Lalito Irene MD - 04/13/2024 9:54 AM CDT Images from the original note were not included. Urology Consultation Note Chief Complaint: Left nephrolithiasis __ ASSESSMENT AND PLAN: This is a 53 y.o. male with 7mm left distal left ureter stone. The patient presents with a left sided stone in the distal ureter. I reviewed the patient's imaging results. We discussed treatment options for the stones. 1. Observation with Flomax. I discussed that with a 7 mm stone is an approximately 60% chance it will pass. The patient may continue to have pain until this passes and should strain urine while awaiting for this to pass. There is a risk the patient may develop an obstructive pyelonephritis while waiting which is a medical/surgical emergency and can lead to if care is delayed. This was relayed to the patient who expressed understanding. The patient was counseled if they have fevers with flank pain he must go to the emergency room immediately. 2. Ureteral stent placement with eventual URS: discussed need for additional surgery, inability to place stent, stent pain/discomfort, ureteral/urethral stricture/injury, sepsis, pain, bleeding. 3. Ureteroscopy with laser lithotripsy and stent placement. We discussed that the patient would need a stent for approximately 2 - 3 weeks following this. With regards ureteroscopy I discussed the risk of ureteral stricture, bladder injury, sepsis/, recurrence of stone, need for more than 1 procedure particularly if we cannot obtain adequate access or there is residual stone fragments left. We discussed the risk of nerve injury and positioning injuries. We discussed and discomfort and painafterwards. Again, with each stone approach I stressed the risk of developing a ureteral stricture post operatively, risk of sepsis that could lead to or prolonged hospitalization (even in the setting of anegative urine culture), nerve injuries from positioning. I also stressed there is a risk of needing more than one procedure particularly if the stone is large or we cannot gain safe access to the stone due to ureteral narrowing or anatomic variations. The patient expressed understanding. Ultimately, the patient would like to proceed with the following: Plan: L URS/LL/stent Keep NPO Strain urine __ History of Present Illness: Jaden Clement is a 53 y.o. male seen for the evaluation and management of left nephrolithiasis. History of left-sided flank pain for the past 3-4 days, seen in the ED yesterday, 7 mm distal left ureteral stone, came back today with ongoing severe pain, no fevers. Severalmm left distal left ureter stone noted. He also has a history of urinary symptoms status post UroLift, TURP. He still has ongoing urinary symptoms. He denies any fevers. No prior history of kidney stones. Has not seen the stone pass, in significant pain upon my evaluation. Past Medical History: Diagnosis Date Anxiety disorder Anxiety Arrhythmia Depression Depression Enlarged prostate Erectile dysfunction Generalized abdominal pain 06/27/2019 GERD (gastroesophageal reflux disease) Hemorrhoids Hyperlipidemia Hypertension Hypoglycemia Palpitation Rectal pain 05/25/2020 Added automatically from request for surgery [id number] Sleep apnea Urinary retention Past Surgical History: Procedure Laterality Date APPENDECTOMY 10/07/2023 BAND HEMORRHOIDECTOMY BIOPSY ABDOMEN RETROPERITONEAL N/A 02/06/2019 CARPAL TUNNEL RELEASE Bilateral COLONOSCOPY 08/26/2020 1st KNEE ARTHROSCOPY Right 02/2006 rt ac resection PROSTATE SURGERY SHOULDER SURGERY Right Current Facility-Administered Medications Medication Dose Route Frequency Provider Last Rate Last Admin ondansetron (ZOFRAN) injection 4 mg 4 mg intravenous Once PRN Idalia Young MD ondansetron ODT (ZOFRAN-ODT) disintegrating tablet 4 mg 4 mg oral Once PRN Idalia Young MD Current Outpatient Medications Medication Sig Dispense Refill buPROPion XL (WELLBUTRIN XL) 300 mg 24 hr tablet TAKE 1 TABLET EVERY MORNING 100 tablet 1 docusate sodium (COLACE) 100 mg capsule Take 1 capsule (100 mg total) by mouth 2 (two) times a day for 14 days 28 capsule 0 HYDROcodone-acetaminophen (NORCO) 5-325 mg per tablet Take 1 tablet by mouth every 6 (six) hours asneeded for pain 12 tablet 0 lisinopriL (PRINIVIL,ZESTRIL) 5 mg tablet Take 1 tablet (5 mg total) by mouth nightly 100 tablet 3 metoprolol XL (TOPROL-XL) 50 mg extended release tablet Take 1 tablet (50 mg total) by mouth nightly 90 tablet 3 pramipexole (MIRAPEX) 1.5 mg tablet TAKE 1 TABLET THREE TIMES A DAY 100 tablet 10 pravastatin (PRAVACHOL) 40 mg tablet TAKE 1 TABLET DAILY 90 tablet 1 tadalafiL (CIALIS) 20 mg tablet Take 1 tablet (20 mg total) by mouth daily as needed for erectile dysfunction Max 1 daily. 20 tablet 3 No Known Allergies @SOCHX@ Family History Problem Relation Age of Onset Cancer Mother lung Hypertension Mother Leukemia Mother Cancer Father lung Throat cancer Father REVIEW OF SYSTEMS: As per the HPI. All other systems were reviewed and issues relevant to chief complaint are negative. The complete REVIEW OF SYSTEMS, MEDICATION LIST and DRUG ALLERGIES, PAST MEDICAL HISTORY, FAMILY MEDICAL HISTORY and SOCIAL HISTORY are documented in detail and were reviewed with the patient. The patient was asked to review all abnormal responses not pertinent to today's visit with their primary care physician. PHYSICAL EXAMINATION: Constitutional: General appearance: Well nourished, well developed male in no acute distress. Appears stated age Eyes: EOMI, no scleral icterus Neurologic: Normal mood and affect. Respiratory: Normal respiratory effort. No use of accessory muscles Cardiovascular: No lower extremity edema. Extremities well perfused. Ears, Nose, Throat, Mouth: midline trachea, no thryomegaly. Soft, supple appearing. Skin: Warm and dry. Gastrointestinal: No masses. No abdominal tenderness. No hepatosplenomegaly. Psychiatry: Normal mood, alert and oriented Teaching was performed using illustrated anatomic diagrams and patient imaging. No impairments to patient comprehension were appreciated. All questions were answered to the patient's satisfaction. Thank you for allowing us to participate in your patient's care. documented in this encounter Nursing Notes * Mendy Wilson RN - 04/14/2024 12:51 PM CDT Discharge instructions given to pt at bedside. All questions and concerns addressed. Pt medicationsdelivered to bedside by pharmacy. Pt requested to walk out. Pt escorted to personal vehicle with all belongings in hand. * Ginger Diez RN - 04/13/2024 7:35 PM CDT Report given to Chayito RIDER. Pt moved to G601 in stable condition with all belongings. at bedside. documented in this encounter ED Notes * Idalia Young MD - 04/13/2024 8:20 AM CDT HPI Chief Complaint Patient presents with Vomiting Patient is a 53-year-old male recently diagnosed with a 7 mm left ureteral stone who comes emergency department today for left-sided flank pain for the past 4 days. Patient states he has been vomiting and has not been able to have a bowel movement for the last 3 days. He continues to have pain. CT KUB yesterday showed a 7 mm obstructing stone in the distal left ureter with moderate hydro. Patient History: Patient Active Problem List Diagnosis Date Noted Ureteral stone with hydronephrosis 04/13/2024 Right lower quadrant abdominal pain 10/07/2023 Status post appendectomy 10/07/2023 Acute appendicitis with localized peritonitis, without perforation, abscess, or gangrene 10/07/2023 Acute appendicitis 10/07/2023 Intermittent palpitations 08/08/2023 Encounter for follow-up examination after completed treatment for conditions other than malignant neoplasm 08/08/2023 Neck pain 06/07/2023 Right groin pain 11/20/2022 Encounter for wellness examination 10/02/2022 Benign prostatic hyperplasia with weak urinary stream 06/12/2022 Vitamin D deficiency 12/13/2021 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 Situational anxiety 07/27/2020 Anger reaction 03/30/2019 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/30/2019 Laryngopharyngeal reflux (LPR) 10/29/2018 Hyperlipidemia 07/12/2016 Essential hypertension 07/12/2016 Restless legs syndrome 12/29/2013 Insomnia 12/29/2013 Obstructive sleep apnea syndrome 07/06/2013 Past Medical History: Diagnosis Date Anxiety disorder Anxiety Arrhythmia Depression Depression Enlarged prostate Erectile dysfunction Generalized abdominal pain 06/27/2019 GERD (gastroesophageal reflux disease) Hemorrhoids Hyperlipidemia Hypertension Hypoglycemia Palpitation Rectal pain 05/25/2020 Added automatically from request for surgery [id number] Sleep apnea Urinary retention Past Surgical History: [...] Tobacco comments: chews, not interested in counseling Vaping Use Vaping status: None Substance and Sexual Activity Alcohol use: Yes Comment: can of beer a month Drug use: Yes Types: Alcohol Comment: 18 pack beer once weekly Sexual activity: Defer Social History Social History Narrative Not on file Review of Systems Review of Systems Constitutional: Negative. Negative for activity change, appetite change, chills, diaphoresis, fatigue and fever. HENT: Negative. Negative for congestion, drooling, rhinorrhea and sore throat. Eyes: Negative. Negative for photophobia, redness and visual disturbance. Respiratory: Negative. Negative for cough, chest tightness and shortness of breath. Cardiovascular: Negative. Negative for chest pain, palpitations and leg swelling. Gastrointestinal: Positive for vomiting. Negative for abdominal pain, anal bleeding, blood in stool, constipation, diarrhea and nausea. Endocrine: Negative. Genitourinary: Negative. Negative for decreased urine volume, difficulty urinating, dysuria, frequency, hematuria and urgency. /Ureteral stone left flank pain Musculoskeletal: Negative. Negative for arthralgias and myalgias. Skin: Negative. Negative for rash and wound. Allergic/Immunologic: Negative for immunocompromised state. Neurological: Negative. Negative for dizziness, weakness and headaches. Hematological: Negative. Does not bruise/bleed easily. Psychiatric/Behavioral: Negative. Negative for confusion. All other systems reviewed and are negative. Physical Exam ED Triage Vitals [04/13/24 0748] Temp Pulse Resp BP SpO2 36.9 ??C (98.4 ??F) 67 19 169/81 96 % Temp src Heart Rate Source Patient Position BP Location FiO2 (%) Temporal -- -- -- -- Height Height Method Weight Weight Method 1.88 m (6' 2 ) Stated 124.3 kg (274 lb) Stated Physical Exam Vitals and nursing note reviewed. Constitutional: General: He is in acute distress. Appearance: He is well-developed. He is not ill-appearing, toxic-appearing or diaphoretic. HENT: Head: Normocephalic and atraumatic. Eyes: General: No scleral icterus. Extraocular Movements: Extraocular movements intact. Conjunctiva/sclera: Conjunctivae normal. Pupils: Pupils are equal, round, and reactive to light. Neck: Thyroid: No thyromegaly. Vascular: No JVD. Trachea: No tracheal deviation. Cardiovascular: Rate and Rhythm: Normal rate. Pulmonary: Effort: Pulmonary effort is normal. No respiratory distress. Abdominal: General: Abdomen is flat. Comments: protruding Musculoskeletal: General: Normal range of motion. Cervical back: Normal range of motion and neck supple. Skin: General: Skin is warm and dry. Neurological: General: No focal deficit present. Mental Status: He is alert and oriented to person, place, and time. Mental status is at baseline. Motor: No abnormal muscle tone. Psychiatric: Mood and Affect: Mood normal. Behavior: Behavior normal. Thought Content: Thought content normal. Judgment: Judgment normal. MDM Medical Decision Making Amount and/or Complexity of Data Reviewed Labs: ordered. Risk Prescription drug management. Decision regarding hospitalization. ED Course as of 04/13/24923 Time: 04/13 842 Comment: Discussed patient with urology who accepts the patient recommends NPO status and admissionto hospitalist. By: Idalia Young MD Time: 04/13 857 Comment: Discussed patient with hospitalist who accepts the patient By: Idalia Young MD Final diagnoses: Ureteral stone with hydronephrosis Vomiting, unspecified vomiting type, unspecified whether nausea present Flank pain There may be grammatical errors in this note due to use of voice recognition software. DISPOSITION :ADMIT Idalia Young MD 04/13/24847 Idalia Young MD 04/13/24923 * Shannan Yun RN - 04/13/2024 7:46 AM CDT Pt states that he was seen here recently for a kidney stone and it still hasn't passed. Pt states he is vomiting. Pt states that he can't eat and hasn't had a bowel movement. documented in this encounter Miscellaneous Notes * Initial Assessments - Denice Clark RN - 04/14/2024 12:51 PM CDT CM Low Risk Discharge Planning Assessment Note Primary Care Provider: La Kearney MD Preferred Pharmacy: [email or web address] - [address] [address] Who does the patient or legal guardian want to receive education instruction and discharge plans for after care assistance?: Decline Living Arrangements: Spouse/significant other Does the patient need discharge transport arranged?: No (04/13/24 2123) Additional Information and Discharge Plan: DC plan discussed with patient and Rhiannon at the bedside. Goal is to return home-lives with Rhiannon and she will be his ride home. Independent. Gets hisCPAP supplies thru [employer]. Doesn't use any equipment for mobility. Barrier to dc is resoluiont of flank pain. Dr. Irene consult. Had a left cystoscopy with a uretal stent placed. No home needs noted at this time. Denice Clark RN Phone Number: * Plan of Care - Chayito Horta RN - 04/14/2024 2:32 AM CDT Problem: Discharge Planning Goal: Understanding discharge needs will improve Outcome: Progressing Flowsheets (Taken 04/13/20241949) Understanding of discharge needs will improve: Discuss information regarding discharge instructions Identify discharge learning needs (meds, wound care, etc.) Problem: General Patient Education Goal: Knowledge of disease process, condition or treatment will be improved Outcome: Progressing Flowsheets (Taken 04/13/20241949) Complications related to the disease process, condition or treatment will be avoided or minimized: Explain self-care Problem: Genitourinary Goal: Absence of urinary retention Outcome: Progressing Flowsheets (Taken 04/13/20241949) Absence of urinary retention: Assess amount and/or characteristics of urine Problem: Infection Goal: Absence of infection during hospitalization Outcome: Progressing Flowsheets (Taken 04/13/20241949) Absence of infection during hospitalization: Assess and monitor for signs and symptoms of infection Problem: Gastrointestinal Goal: Maintains adequate nutritional intake Outcome: Progressing Goals: Clinical Goals for the Shift: Patient to remain hemodynamically stable. Vector Control Specialist Patient Centered Goal for Treatment: Patient to remain hemodynamically stable. Summary: VSS, afebrile, and denies pain. IV infusing. Up independent. Patient reports burning with urination. Plan of care ongoing. * Plan of Care - Ginger Diez RN - 04/13/2024 4:21 PM CDT Goals: Clinical Goals for the Shift: Keep pt safe and comfortable. Monitor vs, labs Summary: Pt currently appears to be resting in bed comfortably with at bedside. Pt ambulates in room with steady gait. Pt denies pain, SOB, N/V/D; endorses mild burning with urination and sense of urgency. VSS on RA. IVF as ordered. Problem: Discharge Planning Goal: Understanding discharge needs will improve Outcome: Progressing Problem: Genitourinary Goal: Absence of urinary retention Outcome: Progressing Problem: Infection Goal: Absence of infection during hospitalization Outcome: Progressing Problem: General Patient Education Goal: Knowledge of disease process, condition or treatment will be improved Outcome: Progressing * Op Note - Lalito Irene MD - 04/13/2024 12:00 PM CDT Images from the original note were not included. PHYSICIAN'S OPERATIVE NOTE Pre-Op Diagnosis: 1. Left nephrolithiasis Post-Op Diagnosis: 1. Left nephrolithiasis: 7mm distal ureteral stone Procedure: 1. Cystourethroscopy 2. Left retrograde pyelogram with intraoperative fluoroscopic interpretation 3. left semi-rigid ureteroscopy with laser lithotripsy and basket stone extraction 4. Placement of 6x28 JJ stent on left side Surgeon: Lalito Lang MD Childcare Provider: None Anesthesia: General Indications: This is a 53 y.o. male with 7 mm distal left ureteral stone. We plan for cystourethroscopy, retrograde pyelogram, ureteroscopy with laser lithotripsy and basket stone extraction with placement of JJ stent. Risks discussed including infection and sepsis, pain, bleeding, ureteral/urethral stricture development, ureteral injury/perforation, bladder injury, inability to complete the procedure, need for additional surgeries, DVT/PE, nerve/positioning injuries, and pain/discomfort from stent placement were discussed. We discussed risks of urinary retention and ongoing symptoms. We alsodiscussed the risk of needing additional surgery should there be residual stone fragments left behind. We focused on the risk of incomplete stone removal, need for additional stone surgeries, inability to complete the procedure at hand requiring placement of stent versus nephrostomy tube in particular. Lastly, we highlighted the importance of having the stent removed in a timely fashion to avoid i ncrustation. Patient consents and agrees to procedure. Findings 1. Retrograde pyelogram with left ureter with significanttortuosity. There is moderate hydronephrosis. There is a filling defect visualized. The stone was visualized on plain film. The calyces appearnormal. 2. Semi-rigid ureteroscopy was performed which showed impacted distal left ureteral stone. After stone was visualized, laser lithotripsy was performed with 200 nanometer laser fiber, complete removalof all stone noted. Cystoscopy also howed prior evidence of TURP defect. There is an elevated bladder neck.. 4. placement of 6x28 JJ stent (left). Position confirmed fluoroscopically and under direct vision. Description of Procedure: After the patient was correctly identified and appropriately consented, the patient was taken to the operative suite and placed on the table in the supine position. Bilateral lower extremity SCD's were applied and functioning. General anesthesia was administered by the anesthesia team and IV antibiotics with Cefazolin were administered. The patient was then repositioned to the dorsal lithotomy position with all pressure points were well padded and no compression of nerves was noted. The team agreed to the safety of positioning. The patient's lower abdomen, genitals, and perineum were prepped in the usual sterile fashion. The operative team paused for a preoperative time-out. The prep was allowed to dry to completion before starting the case. Sterile drapes were applied after prep had appropriately dried. There was some urethral narrowing at the meatus. This was gently dilated with Jaydon from 18-24.A well lubricrated 22F rigid cystoscope was introduced transurethrally. The urethra appeared normalwith no strictures or lesions. There was some proximal bulbous narrowing.The prostate was Nonobstructive with evidence of a TURP defect. Enriquez cystoscopy was performed which showed no bladder tumors orstones. Bilateral ureteral orifices were in their orthotopic position. The left ureteral orifice was identified. It was intubated with a 5F exchange catheter over a Sensor wire. Dilute 1:1 conray was gently injected for a retrograde pyelogram. This showed the above findings. The Sensor wire was then guided to the upper pole and confirmed to be in the correct position fluoroscopically. Over a 2nd Sensor wire, a short rigid ureteral scope was atraumatically guided into the ureter. Care was taken not to traumatize the urothelium. The scope went up without resistance. The original wire was left in place as a safety wire. We then utilized the semi-rigid ureteroscope. The stone was visualized. A 200 nm laser fiber was used. The stone was dusted and fragmented to completion. A nitinol basket was then utlized and stone fragments were removed and sent for analysis. We then backloaded the wire on to the 22F rigid cystoscope. A 6x28 JJ stent was then back loaded onto the scope and advanced under fluoroscopy and direct visualization. The proximal curl was visualized in the upper pole with fluoroscopy. The distal curl was seen in the bladder. The bladder was deco mpressed and the scope was removed atraumatically. The patient was then returned to the supine position and awoken. All lines and tubes were functioning appropriately and was transferred to PACU in stable condition. Complications: none immediately apparent EBL: Minimal (<50 mls) Fluids: Per anesthesia records Drains/Tubes: 1. 6x28 stent Grafts/Implants: 1. None Condition: excellent Specimen: 1. Left ureteral stone Disposition: 1. To PACU 2. Stent for 2 weeks * Brief Op Note - Lalito Irene MD - 04/13/2024 12:00 PM CDT Operative Progress Note Surgical Team: Surgeons and Role: * Lalito Irene MD - Primary Anesthesiologist: Madhav Cedeno MD PANEL INSTALLER: Odette Porter CRNA Media Reporter: Iris Talbot RN Rug Hooker: Denice Mayer RT Scrub: Tiana Coronado ST SURVEILLANCE CAMERA TECHNICIAN: Cas Sarah RN DATE OF SURGERY : 04/13/2024 Preoperative Diagnosis: * No Diagnosis Codes entered * Postoperative Diagnosis: * No Diagnosis Codes entered * Procedure(s): Procedure(s) (LRB): LEFT CYSTOSCOPY, LEFT URETEROSCOPY WITH LASER LITHOTRIPSY, PLACEMENT URETERAL STENT LEFT, RETROGRADE PYELOGRAM (Left) Operative Findings: 7mm ureteral stone Estimated Blood Loss: 0 mL Intraoperative Fluids: Per anesthesia mls Specimens: ID Type Source Tests Collected by Time A : Left ureteral stone Tissue Calculus/calculi/stone, gross and Chemical Analysis SURGICAL PATHOLOGY Lalito Irene MD 04/13/2024 [id number] Implants: Implant Name Type Inv. Item Serial No. Wired Sweatband Cutter Lot No. LRB No. Used Action [employer] Contour 6fr 28cm Taper Tip Bladder Oscar Low Profile Large Inner Latex Free 180-224 - [id number] [employer] Contour 6fr 28cm Taper Tip Bladder Oscar Low Profile Large Inner Latex Free 180-224 [place] [employer] [id number] Left 1 Implanted Blood/Blood Products Transfused: 0 mls Complications: None Condition on Discharge from the operating room was stable Lalito Lang MD Date: 04/13/2024 Time: 1:18 PM No Resident involved on case documented in this encounter Plan of Treatment Not on file documented as of this encounter Procedures Procedure Name Priority Date/Time Associated Diagnosis Comments EGFR Routine 04/14/2024 3:50 AM CDT DIFFERENTIAL AUTO Routine 04/14/2024 3:5 0 AM CDT CBC WITH AUTO DIFFERENTIAL Routine 04/14/2024 3:50 AM CDT COMPREHENSIVE METABOLIC PANEL Routine 04/14/2024 3:50 AM CDT SURGICAL PATHOLOGY Routine 04/13/2024 1: 37 PM CDT Left ureteral stone FL RETRO PYELO (IN OR) IP Routine 04/13/2024 1:26 PM CDT CYSTOSCOPY PLACEMENT URETERAL STENT 04/13/2024 12:40 PM CDT LEFT URETERAL STONE STONE ANALYSIS Routine 04/13/2024 12:00 PM CDT SEPSIS LACTATE WITH REFLEX STAT 04/13/2024 8:34 AM CDT URINALYSIS AND REFLEX TO MICROSCOPIC AND CULTURE STAT 04/13/2024 8:34 AM CDT URINALYSIS, MICROSCOPIC ONLY STAT 04/13/2024 8:34 AM CDT EGFR STAT 04/13/2024 7:55 AM CDT DIFFERENTIAL AUTO STAT 04/13/2024 7:5 5 AM CDT CBC WITH AUTO DIFFERENTIAL STAT 04/13/2024 7:55 AM CDT COMPREHENSIVE METABOLIC PANEL STAT 04/13/2024 7:55 AM CDT documented in this encounter Results * eGFR (04/14/2024 3:50 AM CDT) eGFR 71 >=60 mL/min/1. 73 m2 Comment: Interpretive Data Reference Interval Normal ?>/= 90 mL/min/1.73m2 Mildly decreased* ? 60 - 89 mL/min/1.73m2 Mildly to moderately decreased ?45 - 59 mL/min/1.73m2 Moderately to severely decreased ??30 - 44 mL/min/1.73m2 Severely decreased ?15 - 29 mL/min/1.73m2 Kidney Failure ?< 15 ??mL/min/1.73m2 *Relative to young adult level Estimated glomerular filtration rate is determined by the 2020 CKD-EPI equation recommended by the National Kidney Foundation (A Unifying Approach to GFR Estimation: Recommendations of the NKF-ASK Task Force on Reassessing the Inclusion of Race in Diagnosing Kidney Disease, JASN 2020). The CKD-EPI equation should not be used for patients with unstable renal function and has not been validated in children and those over 70. Current interpretive data was last reviewed 2021. Blood 04/14/2024 3:50 AM CDT 04/14/2024 4:47 AM CDT us Idalia Young MD LAB BLOOD ORDERABLE S Final Result [facility] ([place] 1 [facility] Department [place] [address] * (ABNORMAL) Differential, auto (04/14/2024 3:50 AM CDT) Neutrophil abs 7.5(H) 1.5 - 6.5 K/cumm Imm gran abs 0.0 0.0 - 0.1 K/cumm [facility] ([place]) Lymphocyte abs 0.9 0.8 - 3.3 K/cumm [facility] ([place]) Monocyte abs 0.6 0.2 - 0.8 K/cumm [facility] ([place]) Eosinophil abs 0.0 0.0 - 0.5 K/cumm [facility] ([place]) Basophil abs 0.0 0.0 - 0.1 K/cumm [facility] ([place]) Neutrophil pct 83.1 % [facility] ([place] Comment: Interpretive Data Percent cell count reference ranges are not reported, since discordance with absolute values may lead to misinterpretation of CBC data. Current Interpretive Data was last revised on 2017. Imm gran pct 0.4 % [facility] ([place]) Comment: Interpretive Data Percent cell count reference ranges are not reported, since discordance with absolute values may lead to misinterpretation of CBC data. Current Interpretive Data was last revised on 2017. Lymphocyte pct 9.4 % [facility] ([place] Comment: Interpretive Data Percent cell count reference ranges are not reported, since discordance with absolute values may lead to misinterpretation of CBC data. Current Interpretive Data was last revised on 2017. Monocyte pct 6.9 % [facility] ([place] Comment: Interpretive Data Percent cell count reference ranges are not reported, since discordance with absolute values may lead to misinterpretation of CBC data. Current Interpretive Data was last revised on 2017. Eosinophil pct 0.0 % [facility] Comment: Interpretive Data Percent cell count reference ranges are not reported, since discordance with absolute values may lead to misinterpretation of CBC data. Current Interpretive Data was last revised on 2017. Basophil pct 0.2 % [facility] ([place] Comment: Interpretive Data Percent cell count reference ranges are not reported, since discordance with absolute values may lead to misinterpretation of CBC data. Current Interpretive Data was last revised on 2017. Blood 04/14/2024 3:50 AM CDT 04/14/2024 4:47 AM CDT us Idalia Young MD LAB BLOOD ORDERABLE S Final Result [facility] ([place] 1 [facility] Department [place] [address] * (ABNORMAL) Comprehensive metabolic panel (04/14/2024 3:50 AM CDT) Sodium 136 135 - 145 mmol/L Potassium, pl 4.4 3.3 - 4.9 mmol/L [facility] Chloride 104 97 - 110 mmol/L [facility] CO2 22 22 - 32 mmol/L [facility] Anion gap 10 2 - 15 mmol/L [facility] ([place]) BUN 18 6 - 25 mg/dL [facility]) Creatinine 1.20 0.80 - 1.30 mg/dL [facility] ([place]) Glucose 127 70 - 199 mg/dL [facility] ([place]) Comment: Interpretive Data Fasting glucose >/= 126 mg/dl is diagnostic for diabetes. ?? Fasting is defined as no caloric intake for at least 8 hours. Fasting glucose between 100 mg/dl to 125 mg/dl is diagnostic of prediabetes. In a patient with classic symptoms of hyperglycemia or hyperglycemic crisis, a random glucose >/= 200 mg/dl is diagnostic for diabetes. In the absence of unequivocal hyperglycemia, results should be confirmed by repeat testing. The classification and Diagnosis of Diabetes Diabetes Care 2021; 46: S19-S40. Current interpretive data was last revised 2022. Calcium 8.7 8.5 - 10.3 mg/dL [facility] ([place]) Bilirubin, total 0.5 0.1 - 1.2 mg/dL [facility] ([place]) Protein, pl 5.6(L) 6.5 - 8.5 g/dL [facility]) Albumin 3.7 3.5 - 5.0 g/dL [facility]) Alk phos 79 40 - 130 Units/L [facility]) ALT 21 7 - 55 Units/L [facility] AST 14 10 - 50 Units/L [facility]) Blood 04/14/2024 3:50 AM CDT 04/14/2024 4:47 AM CDT us Idalia Young MD LAB BLOOD ORDERABLE S Final Result [facility] ([place] 1 [facility] [place] [address] * (ABNORMAL) CBC with auto differential (04/14/2024 3:50 AM CDT) WBC 9.1 3.8 - 9.9 K/cumm Hgb 12.2(L) 13.0 - 17.5 g/dL [facility] Hct 35.2(L) 38.9 - 50.3 % [facility]) Plt 159 150 - 400 K/cumm [facility] ([place]) MPV 9.9 9.1 - 12.3 fL [facility] RBC 3.73(L) 4.30 - 5.80 M/cumm [facility] ([place]) MCV 94.4 81.3 - 96.4 fL [facility] MCH 32.7 27.1 - 33.3 pg [facility]) MCHC 34.7 32.3 - 35.7 g/dL [facility]) RDW CV 12.0 11.1 - 14.9 % [facility] RDW SD 41.1 35.7 - 48.1 fL [facility]) NRBC abs 0.00 0.00 - 0.01 K/cumm [facility]) Blood 04/14/2024 3:50 AM CDT 04/14/2024 4:47 AM CDT us Idalia Young MD LAB BLOOD ORDERABLE S Final Result [facility] ([place] 1 [facility] [place] [address] * Surgical pathology (04/13/2024 1:37 PM CDT) Tissue (Calculus/calculi /stone, gross and Chemical Analysis) 04/13/2024 12:58 PM CDT Narrative [facility] ([place]) - 04/15/2024 4:14 PM CDT [facility] results best viewed via link to PDF [facility] Department of Pathology [address] [place] [address] Note to Patients: This report may contain a detailed description of human tissue sent by a health care provider to the laboratory for pathologic evaluation. The content of this report is essential for diagnosis and may provide important critical findings. This information may be unfamiliar to patients to review without a medical professional present. It is advised that the patient review this report in the presence of a health care provider who can answer questions and explain the details. Final Report Patient Name: ??JADEN CLEMENT Address: ??[facility], ??[place], [place] [address] Gender: ??M : ??1970 (Age: 53) Service: ??Medical Location: ??[facility] Hospital #: ??[id number] Patient Type: ??[facility] EP OP in bed Accession # ?[id number] Taken: ??04/13/2024 Received: ??04/13/2024 Accessioned: ??04/13/2024 Reported: ??04/15/2024 Physician(s):Lalito Lang MD Diagnosis: Ureter, left: ? - Calculi (gross examination only). ? - Submitted to [facility] for chemical analysis. Wilfredo Ryder MD Report Electronically Reviewed and Signed Out By ??Wilfredo Ryder MD ??04/15/2024 16:14:29 Specimen(s) Received: A: Left ureteral stone Clinical History: Left ureteral stone. ??Left cystoscopy, left ureteroscopy with laser lithotripsy, placement ureteral stent left, retrograde pyelogram. ?? Gross Description: The specimen is submitted in a single container labeled JADEN CLEMENT and left ureteral stone . ??It is 6 contreras brown granular stones between 1 and 3 mm. The specimen is entirely submitted to [facility] for chemical analysis. When the [facility] report has been finalized, it will be available in the laboratory section of Clinical Desktop and Epic. If Clinical Desktop or Epic is not available, please call the Department of Pathology at [facility] ([phone]) to obtain a copy of the report. Alejandra Arreguin R.N., P.A./Heath Jain M.D. REPORT IMAGES AND SCANNED DOCUMENTS, IF INCLUDED, ONLY VIEWABLE IN PDF VERSION OF REPORT The performance characteristics of some immunohistochemical stains, fluorescence in-situ hybridization tests and immunophenotyping by flow cytometry cited in this report (if any) were determined by the Surgical Pathology Department at [facility] as part of an ongoing software quality assurance analyst program and in compliance with federally mandated regulations drawn from the Clinical Laboratory Improvement Act of 1988 (CLIA '88). ??Some of these tests rely on the use of analyte specific reagents and are subject to specific labeling requirements by the US Food and Drug Administration. ??Such diagnostic tests may only be performed in a facility that is certified by the Department of Health and Human Services as a high complexity laboratory under CLIA '88. The FDA has determined that such clearance or approval is not necessary. ??This test is used for clinical purposes. ??It should not be regarded as investigational or for research. ??Nevertheless, federal rules concerning the medical use of analyte specific reagents require that the following disclaimer be attached to the report: This test was developed and its performance characteristics determined by the Surgical Pathology Department [facility]. ??It has not been cleared or approved by the U. S. Food and Drug Administration. Note for decalcified specimens: This assay has not been validated on decalcified tissues. Results should be interpreted with caution given the possibility of false negativity on decalcified specimens [facility] Allan Irene MD LAB PATHOLOGY ORDERABLES Final Result [facility] ([place] 1 [place], [place] [id number] * FL Retro Pyelo (In Or) (04/13/2024 1:26 PM CDT) Anatomical Region Laterality Modality Body N/A Radio Fluoroscop y 04/13/2024 5:19 PM CDT Narrative 04/13/2024 5:23 PM CDT EXAM DESCRIPTION: ?? FL RETRO PYELO (IN OR) REASON FOR STUDY: ?? pain. ??Previous CT of 04/12/2024 demonstrates left ureteral lithiasis. COMPARISON: ?? CT dated 04/12/2024 RADIATION DOSE: Dose: ??0.46011 ?? mGycm2 Dose Area Product (DAP) Number of views: ??13 TECHNIQUE: ?? Intraoperative fluoroscopy was provided to perform retrograde pyelogram. FINDINGS: Images are not labeled as to left or right. ??Wire of the paraspinous region noted at the lumbar spine level noted. ??Subsequent injection of contrast into the ureter. ??Eventual visualization of the wire and catheter within upper pole caliceal structures. ??Final image demonstrates the inferior aspect of the double-J ureteral stent. IMPRESSION: ?? 1. ?? Retrograde pyelogram with placement of double-J ureteral stent. THIS IS AN ELECTRONICALLY VERIFIED FINAL REPORT 04/13/2024 5:23 PM - Electronically signed by ??Mando Dominguez M.D. JS: [email or web address] D: ??04/13/2024 5:23 PM T: ??04/13/2024 5:23 PM Report ID: [id number] Reading Location: ??[id number] Procedure Note Mando Dominguez, DO - 04/13/2024 EXAM DESCRIPTION: FL RETRO PYELO (IN OR) REASON FOR STUDY: pain. Previous CT of 04/12/2024 demonstrates left ureteral lithiasis. COMPARISON: CT dated 04/12/2024 RADIATION DOSE: Dose: 0.30137 mGycm2 Dose Area Product (DAP) Number of views: 13 TECHNIQUE: Intraoperative fluoroscopy was provided to perform retrograde pyelogram. FINDINGS: Images are not labeled as to left or right. Wire of the paraspinousregion noted at the lumbar spine level noted. Subsequent injection of contrastinto the ureter. Eventual visualization of the wire and catheter within upperpole caliceal structures. Final image demonstrates the inferior aspect of the double-J ureteral stent. IMPRESSION: 1. Retrograde pyelogram with placement of double-J ureteral stent. THIS IS AN ELECTRONICALLY VERIFIED FINAL REPORT 04/13/2024 5:23 PM - Electronically signed by Mando Dominguez M.D. JS: [email or web address] Report ID: [id number] Reading Location: [id number] Lalito Lang MD IMG FLUOROSCOPY PROCEDURES Fin al Result * Stone analysis (04/13/2024 12:00 PM CDT) Stone analysis Not Reported [facility] Comment:Testing performed by : [facility], [address] [place] [address]., [id number] Source, Kid Stone Left Ureter [facility] ([place] Comment:Testing performed by : [facility], [address] [place] [address]., [id number] Interp, Kid stone analysis See Footnote [facility] ([place] Comment: 60% Calcium oxalate dihydrate. 20% Calcium oxalate monohydrate. ??20% Calcium phosphate (apatite). Testing performed by: [facility], [address] [place] [address]., [id number] COMMENT See Footnote [facility] ([place] Comment: For stones containing calcium oxalate, calcium phosphate, and/or uric acid, a 24 hr urinary supersaturation test may help detect underlying risk factors for this type of stone formation and provide guidance for a stone prevention strategy. ADDITIONAL INFORMATION This test was developed and its performance characteristics determined by [facility] in a manner consistent with CLIA requirements. This test has not been cleared or approved by the U.S. Food and Drug Administration. Test Performed by: [facility] [place] [address] Cook Specialty: Paul Yuen Ph.D.; CLIA# [id number] Testing performed by: [address], [address] Stone 04/13/2024 12:0 0 PM CDT 04/16/2024 11:16 AM CDT Narrative [facility] ([place] - 04/27/2024 8:15 PM CDT LEFT URETERAL STONE Ramos Wilkerson Radha LAB URINE ORDERABLES F inal Result [facility] ([place] 1 [facility] Department [place] [address] [facility] * (ABNORMAL) Urinalysis, microscopic only (04/13/2024 8:34 AM CDT) WBC, ur 6-10(A) 0 - 5 /HPF RBC, ur 6-10(A) 0 - 2 /HPF [facility] ([place] Epithelial cells, squamous, ur 1-5 0 - 5 /HPF [facility] ([place]) Mucous, ur Present(A) [facility] ([place]) Culture Reflex Comment Reflex conditions for urine culture (WBC >10) not met. [facility] ([place]) Urine 04/13/2024 8:34 AM CDT 04/13/2024 8:38 AM CDT us Idalia Young MD LAB URINE ORDERABLE S Final Result Performing Organization Address City/[facility] Co de Phone Number [facility] ([place] 1 [facility] [place] [address] * Sepsis Lactate w/ Reflex (04/13/2024 8:34 AM CDT) Sepsis Lactate 0.7 0.7 - 2.0 mmol/L Blood 04/13/2024 8:34 AM CDT 04/13/2024 8:38 AM CDT Idalia Young MD LAB BLOOD ORDERABLE S Final Result [facility] ([place] 1 [facility] Department [place] [address] * (ABNORMAL) Urinalysis reflex to microscopic and culture Urine (04/13/2024 8:34 AM CDT) Color, ur Yellow Yellow Clarity, ur Clear Clear [facility] ([place]) Specific gravity, ur 1.027 1.003 - 1.030 [facility] ([place]) pH, urine 6.0 [facility] ([place]) Comment: Interpretive Data ? Urine pH is affected by diet, medications, systemic acid-base disturbances, and renal tubular function. ??pH may affect urinary stone formation. ??For example, urine pH below 6.0 may help reduce the tendency for calcium phosphate stones and pH greater than 6.0 may reduce the tendency for uric acid stone formation. Source: [facility] Current Interpretive Data was last revised on 2017 Protein, ur ql Trace Negative [facility] ([place]) Glucose, ur ql Negative Negative [facility] ([place]) Ketones, ur Negative Negative [facility] ([place]) Bilirubin, ur Negative Negative [facility] ([place]) Blood, ur Trace(A) Negative [facility] ([place]) Urobilinogen, ur <2.0 <2.0 mg/dL [facility] ([place]) Nitrite, ur Negative Negative [facility] ([place]) Leukocyte esterase, ur 2+(A) Negative [facility] ([place]) UA reflex comment Reflex to microscopic UA will be performed. [facility] ([place]) Urine 04/13/2024 8:34 AM CDT 04/13/2024 8:38 AM CDT us Idalia Young MD LAB MICROBIOLOGY - GENERAL ORDERABLES Final Result [facility] ([place] 1 [facility] Department [place] [address] * (ABNORMAL) eGFR (04/13/2024 7:55 AM CDT) eGFR 46(L) >=60 mL/min/1. 73 m2 Comment: Interpretive Data Reference Interval Normal ?>/= 90 mL/min/1.73m2 Mildly decreased* ? 60 - 89 mL/min/1.73m2 Mildly to moderately decreased ?45 - 59 mL/min/1.73m2 Moderately to severely decreased ??30 - 44 mL/min/1.73m2 Severely decreased ?15 - 29 mL/min/1.73m2 Kidney Failure ?< 15 ??mL/min/1.73m2 *Relative to young adult level Estimated glomerular filtration rate is determined by the 2020 CKD-EPI equation recommended by the National Kidney Foundation (A Unifying Approach to GFR Estimation: Recommendations of the NKF-ASK Task Force on Reassessing the Inclusion of Race in Diagnosing Kidney Disease, JASN 2020). The CKD-EPI equation should not be used for patients with unstable renal function and has not been validated in children and those over 70. Current interpretive data was last reviewed 2021. Blood 04/13/2024 7:55 AM CDT 04/13/2024 8:04 AM CDT us Idalia Young MD LAB BLOOD ORDERABLE S Final Result [facility] ([place] 1 [facility] Department [place] [address] * (ABNORMAL) Differential, auto (04/13/2024 7:55 AM CDT) Neutrophil abs 6.8(H) 1.5 - 6.5 K/cumm Imm gran abs 0.0 0.0 - 0.1 K/cumm [facility] ([place]) Lymphocyte abs 1.0 0.8 - 3.3 K/cumm [facility] ([place]) Monocyte abs 0.7 0.2 - 0.8 K/cumm [facility] ([place]) Eosinophil abs 0.1 0.0 - 0.5 K/cumm [facility] ([place]) Basophil abs 0.0 0.0 - 0.1 K/cumm [facility] ([place]) Neutrophil pct 79.2 % [facility] ([place]) Comment: Interpretive Data Percent cell count reference ranges are not reported, since discordance with absolute values may lead to misinterpretation of CBC data. Current Interpretive Data was last revised on 2017. Imm gran pct 0.5 % [facility] ([place]) Comment: Interpretive Data Percent cell count reference ranges are not reported, since discordance with absolute values may lead to misinterpretation of CBC data. Current Interpretive Data was last revised on 2017. Lymphocyte pct 11.5 % [facility] ([place] Comment: Interpretive Data Percent cell count reference ranges are not reported, since discordance with absolute values may lead to misinterpretation of CBC data. Current Interpretive Data was last revised on 2017. Monocyte pct 7.8 % [facility] ([place]) Comment: Interpretive Data Percent cell count reference ranges are not reported, since discordance with absolute values may lead to misinterpretation of CBC data. Current Interpretive Data was last revised on 2017. Eosinophil pct 0.7 % [facility] ([place] Comment: Interpretive Data Percent cell count reference ranges are not reported, since discordance with absolute values may lead to misinterpretation of CBC data. Current Interpretive Data was last revised on 2017. Basophil pct 0.3 % [facility] ([place] Comment: Interpretive Data Percent cell count reference ranges are not reported, since discordance with absolute values may lead to misinterpretation of CBC data. Current Interpretive Data was last revised on 2017. Blood 04/13/2024 7:55 AM CDT 04/13/2024 8:04 AM CDT us Idalia Young MD LAB BLOOD ORDERABLE S Final Result [facility] ([place]) 1 [facility] Department [place] [address] * (ABNORMAL) Comprehensive metabolic panel (04/13/2024 7:55 AM CDT) Sodium 135 135 - 145 mmol/L Potassium, pl 4.1 3.3 - 4.9 mmol/L [facility] ([place]) Chloride 100 97 - 110 mmol/L [facility] ([place]) CO2 23 22 - 32 mmol/L [facility] ([place]) Anion gap 11 2 - 15 mmol/L [facility] ([place]) BUN 17 6 - 25 mg/dL [facility] ([place]) Creatinine 1.74(H) 0.80 - 1.30 mg/dL [facility] ([place]) Glucose 111 70 - 199 mg/dL [facility] ([place]) Comment: Interpretive Data Fasting glucose >/= 126 mg/dl is diagnostic for diabetes. ?? Fasting is defined as no caloric intake for at least 8 hours. Fasting glucose between 100 mg/dl to 125 mg/dl is diagnostic of prediabetes. In a patient with classic symptoms of hyperglycemia or hyperglycemic crisis, a random glucose >/= 200 mg/dl is diagnostic for diabetes. In the absence of unequivocal hyperglycemia, results should be confirmed by repeat testing. The classification and Diagnosis of Diabetes Diabetes Care 2021; 46: S19-S40. Current interpretive data was last revised 2022. Calcium 8.6 8.5 - 10.3 mg/dL [facility] ([place]) Bilirubin, total 0.9 0.1 - 1.2 mg/dL [facility] ([place]) Protein, pl 6.0(L) 6.5 - 8.5 g/dL [facility] ([place]) Albumin 4.0 3.5 - 5.0 g/dL [facility] ([place]) Alk phos 96 40 - 130 Units/L [facility] ([place]) ALT 31 7 - 55 Units/L [facility] ([place]) AST 21 10 - 50 Units/L [facility] ([place]) Blood (Blood, Venous) 04/13/2024 7:55 AM CDT 04/13/2024 8:04 AM CDT us Idalia Young MD LAB BLOOD ORDERABLE S Final Result [facility] ([place]) 1 [facility] Department [place] [address] * (ABNORMAL) CBC with auto differential (04/13/2024 7:55 AM CDT) WBC 8.6 3.8 - 9.9 K/cumm Hgb 13.7 13.0 - 17.5 g/dL [facility] ([place]) Hct 38.9 38.9 - 50.3 % [facility] ([place]) Plt 174 150 - 400 K/cumm [facility] ([place]) MPV 9.5 9.1 - 12.3 fL [facility] ([place]) RBC 4.27(L) 4.30 - 5.80 M/cumm [facility] ([place]) MCV 91.1 81.3 - 96.4 fL [facility] ([place]) MCH 32.1 27.1 - 33.3 pg [facility] ([place]) MCHC 35.2 32.3 - 35.7 g/dL [facility] ([place]) RDW CV 12.2 11.1 - 14.9 % [facility] RDW SD 40.4 35.7 - 48.1 fL [facility] ([place]) NRBC abs 0.00 0.00 - 0.01 K/cumm [facility] ([place]) Blood (Blood, Venous) 04/13/2024 7:55 AM CDT 04/13/2024 8:04 AM CDT us Idalia Young MD LAB BLOOD ORDERABLE S Final Result [facility] ([place] 1 [facility] Department [place] [address] documented in this encounter Visit Diagnoses Not on filedocumented in this encounter Admitting Diagnoses Diagnosis Ureteral stone with hydronephrosis documented in this encounter Administered Medications Inactive Administered Medications - up to 3 most recent administrations Medication Order MAR Action Action Date Dose Rate Site acetaminophen (TYLENOL) tablet 650 mg 650 mg, oral, Every 6 hours PRN, fever, Starting on Sat04/13/24 at 1054 atorvastatin (LIPITOR) tablet 10 mg 10 mg, oral, Nightly, First dose on Sat04/13/24 at 2100, This therapy was substituted for Pravastatin per protocol. Given 04/13/2024 8:40 PM CDT 10 mg bisacodyl EC (DULCOLAX EC) tablet 10 mg 10 mg, oral, Once, On Sat04/13/24 at 2045, For 1 dose, Do not crush, chew, cut, dissolve, open or otherwise manipulate tablet/capsule., Indications: constipationIndications:constipati on Given 04/13/2024 8:41 PM CDT 10 mg bisacodyl EC (DULCOLAX EC) tablet 10 mg 10 mg, oral, Daily PRN, constipation, If no results 24 hours after milk of magnesia, Starting on Sat04/13/24 at 2007, Do not crush, chew, cut, dissolve, open or otherwise manipulate tablet/capsule., Indications: constipationIndications:constipati on buPROPion XL (WELLBUTRIN XL) 24 hour tablet 300 mg 300 mg, oral, Every morning, First dose on Sat04/14/24 at 0900, Do not crush, chew, cut, dissolve, open or otherwise manipulate tablet/capsule. Given 04/14/2024 9:02 AM CDT 300 mg cefdinir (OMNICEF) capsule 300 mg 300 mg, oral, 2 times daily, First dose on Sat04/13/24 at 2100, Indications: Urinary Tract/Genitourinary InfectionIndications:Urinary Tract/Genitourinary Infection Given 04/14/2024 9:02 AM CDT 300 mg Given 04/13/2024 8:41 PM CDT 300 mg HYDROcodone-acetaminop hen (NORCO) 5-325 mg per tablet 1 tablet 1 tablet, oral, 4 times daily PRN, 1st line for pain, Starting on Sat04/13/24 at 2008, Indications: PainIndications:Pain HYDROmorphone (DILAUDID) injection 1 mg 1 mg, intravenous, Administer over 2 Minutes, Once, On Sat04/13/24 at 0814, For 1 dose Given 04/13/2024 8:32 AM CDT 1 mg iohexoL (OMNIPAQUE) 240 mg iodine/mL injection solution 50 mL 50 mL, intra-urethral, Once in imaging, contrast, Starting on Sat04/13/24 at 1318, For 1 dose Contrast Given 04/13/2024 1:20 PM CDT 10 mL iohexoL (OMNIPAQUE) 240 mg iodine/mL injection solution As needed, Starting on Sat04/13/24 at 1311, Intra-Op Given 04/13/2024 1:11 PM CDT 10 mL Surgical Site ketorolac (TORADOL) 15 mg/mL injection 15 mg 15 mg, intravenous, Once, On Sat04/13/24 at 0915, For 1 dose, For Adult IV push, administer over 15 seconds Given 04/13/2024 9:16 AM CDT 15 mg Lactated Ringer's (LR) infusion 125 mL/hr, intravenous, Continuous, Starting on Sat04/13/24 at 1056 New Bag 04/14/2024 9:12 AM CDT 125 mL/hr 125 mL/hr New Bag 04/14/2024 1:01 AM CDT 125 mL/hr 125 mL/hr New Bag 04/13/2024 4:30 PM CDT 125 mL/hr 125 mL/hr magnesium hydroxide (MILK OF MAGNESIA) 80 mg/mL (33.3 mg/mL as elemental magnesium) oral suspension 30 mL 30 mL, oral, Daily PRN, constipation, Starting on Sat04/13/24 at 2006 metoprolol XL (TOPROL-XL) extended release tablet 50 mg 50 mg, oral, Nightly, First dose on Sat04/13/24 at 2100, Tablets that are scored may be split, but do not crush, chew, dissolve, open or otherwise manipulate tablet/capsule. Given 04/13/2024 8:41 PM CDT 50 mg mineral oil (FLEET MINERAL OIL) enema 133 mL 133 mL (1 enema), rectal, Daily PRN, constipation, if no results 24 hours after bisacodyl, Starting on Sat04/13/24 at 2006, Indications: constipationIndications:constipation ondansetron (ZOFRAN) injection 4 mg 4 mg, intravenous, Administer over 2 Minutes, Once as needed, nausea, vomiting, If patient unable to tolerate PO, Starting on Sat04/13/24 at 0749, For 1 dose, Do not administer if patient had 8mg administered within 6 hours of patient presenting to ED Do not administer if patient was formally diagnosed with prolonged QT syndrome ondansetron (ZOFRAN) injection 4 mg 4 mg, intravenous, Administer over 2 Minutes, Every 6 hours PRN, nausea, vomiting, if not tolerating PO, Starting on Sat04/13/24 at 1056, Indications: Nausea and VomitingIndications:Nausea and Vomiting ondansetron ODT (ZOFRAN-ODT) disintegrating tablet 4 mg 4 mg, oral, Once as needed, nausea, vomiting, If able to tolerate PO, Starting on Sat04/13/24 at 0749, For 1 dose, Do not administer if patient had 8mg administered within 6 hours of patient presenting to ED Do not administer if patient was formally diagnosed with prolonged QT syndrome ondansetron ODT (ZOFRAN-ODT) disintegrating tablet 4 mg 4 mg, oral, Every 6 hours PRN, nausea, vomiting, Starting on Sat04/13/24 at 1056, Indications: Nausea and VomitingIndications:Nausea and Vomiting polyethylene glycol (MIRALAX) packet 17 g 17 g, oral, Daily PRN, constipation, Starting on Sat04/13/24 at 2007, Indications: constipationIndications:constipation pramipexole (MIRAPEX) tablet 1.5 mg 1.5 mg, oral, 3 times daily, First dose on Sat04/13/24 at 2100 Given 04/14/2024 9:01 AM CDT 1.5 mg Given 04/13/2024 10:26 PM CDT 1.5 mg senna-docusate (PERICOLACE) 8.6-50 mg per tablet 2 tablet 2 tablet, oral, 2 times daily, First dose on Sat04/13/24 at 2100 Given 04/14/2024 9:01 AM CDT 2 tablets Given 04/13/2024 8:41 PM CDT 2 tablets sodium chloride 0.9% bolus 1,000 mL 1,000 mL, intravenous, at 1,000 mL/hr, Administer over 1 Hours, Once, On Sat04/13/24 at 0814, For 1 dose New Bag 04/13/2024 8:32 AM CDT 1,000 mL 1000 mL/hr sodium chloride 0.9% irrigation As needed, Starting on Sat04/13/24 at 1253, Intra-Op Given 04/13/2024 12:54 PM CDT 3,000 mL Surgical Site Given 04/13/2024 12:53 PM CDT 1,000 mL S urgical Site Given 04/13/2024 12:52 PM CDT 3,000 mL S urgical Site documented in this encounter Discontinued Medications Medication Sig Discontinue Reason Start Date End Da te oxybutynin XL (Ditropan XL) 10 mg 24 hr tabletIndications:Bladde r Hyperactivity Take 1 tablet (10 mg total) by mouth daily for 20 days Stop Taking at Discharge 04/12/2022 04/14/2024 docusate sodium (COLACE) 100 mg capsuleIndications:const ipation Take 1 capsule (100 mg total) by mouth 2 (two) times a day for 14 days Stop Taking at Discharge 10/08/2023 04/14/2024 documented as of this encounter Active and Recently Administered Medications Times are shown in CDT. Scheduled Medication Order 04/12/2024 04/13/2024 04/14/2024 atorvastatin (LIPITOR) tablet 10 mg 10 mg, oral, Nightly, First dose on Sat04/13/24 at 2100, This therapy was substituted for Pravastatin per protocol. 2039 (Given - Provider: Chayito Horta RN) bisacodyl EC (DULCOLAX EC) tablet 10 mg (COMPLETED) 10 mg, oral, Once, On Sat04/13/24 at 2045, For 1 dose, Do not crush, chew, cut, dissolve, open or otherwise manipulate tablet/capsule., Indications: constipation 2040 (Given - Provider: Chayito Horta RN) buPROPion XL (WELLBUTRIN XL) 24 hour tablet 300 mg 300 mg, oral, Every morning, First dose on Sat04/14/24 at 0900, Do not crush, chew, cut, dissolve, open or otherwise manipulate tablet/capsule. 901 (Given - Provid er: Mendy Wilson RN) ceFAZolin (ANCEF) 1 gram/10 mL in sterile water (premix) 3,000 mg (COMPLETED) 3,000 mg, intravenous, at 600 mL/hr, Administer over 3 Minutes, Once, On Sat04/13/24 at 1200, For 1 dose, Pre-Op, Adjusted dose for weight >120 kg @ 124.3 kg, Indications: Prophylaxis, Surgical 1245 (Given - Provider: Odette Porter CRNA) cefdinir (OMNICEF) capsule 300 mg 300 mg, oral, 2 times daily, First dose on Sat04/13/24 at 2100, Indications: Urinary Tract/Genitourinary Infection 2040 (Given - Provider: Chayito Horta RN) 901 (Given - Provider: Mendy Wilson RN) HYDROmorphone (DILAUDID) injection 1 mg (COMPLETED) 1 mg, intravenous, Administer over 2 Minutes, Once, On Sat04/13/24 at 0814, For 1 dose 0832 (Given - Provider: Laura Covington RN) ketorolac (TORADOL) 15 mg/mL injection 15 mg (COMPLETED) 15 mg, intravenous, Once, On Sat04/13/24 at 0915, For 1 dose, For Adult IV push, administer over 15 seconds 0916 (Given - Provider: Laura Covington, TERESO) lisinopriL (PRINIVIL,ZESTRIL) tablet 5 mg 5 mg, oral, Nightly, First dose on Sat04/13/24 at 2100, On hold since Sat04/13/2024 at 2005 until manually unheld 2005 (Held by Provider - Provider: Janet Escoto MD - Reason: Pending Results)2099 (Dose Auto Held) 1655 (Unheld by Provider - Provider: Automatic Discharge Provider) metoprolol XL (TOPROL-XL) extended release tablet 50 mg 50 mg, oral, Nightly, First dose on Sat04/13/24 at 2100, Tablets that are scored may be split, but do not crush, chew, dissolve, open or otherwise manipulate tablet/capsule. 2040 (Given - Provider: Chayito Horta RN) pramipexole (MIRAPEX) tablet 1.5 mg 1.5 mg, oral, 3 times daily, First dose on Sat04/13/24 at 2100 2225 (Given - Provider: Chayito Horta RN - Comment: recieved from pharmacy at 2223) 900 (Given - Provider: Medny Wilson RN) senna-docusate (PERICOLACE) 8.6-50 mg per tablet 2 tablet 2 tablet, oral, 2 times daily, First dose on Sat04/13/24 at 2100 2040 (Given - Provider: Chayito Horta RN) 900 (Given - Provider: Mendy Wilson RN) sodium chloride 0.9% bolus 1,000 mL (COMPLETED) 1,000 mL, intravenous, at 1,000 mL/hr, Administer over 1 Hours, Once, On Sat04/13/24 at 0814, For 1 dose 0832 (New Bag - Provider: Laura Covington, RN)1011 (Stopped - Provider: Laura Covington RN) Continuous Medication Order 04/12/2024 04/13/2024 04/14/2024 Lactated Ringer's (LR) infusion 125 mL/hr, intravenous, Continuous, Starting on Sat04/13/24 at 1056 1240 (New Bag - Provider: Odette Porter CRNA)1313 (Anesthesia Volume Adjustment - Provider: Odette Porter CRNA)1630 (New Bag - Provider: Ginger Diez RN) 0101 (New Bag - Provider: Chayito Horta RN)0912 (New Bag - Provider: Mendy Wilson, TERESO)1104 (Stopped - Provider: Mendy Wilson RN) PRN Medication Order 04/12/2024 04/13/2024 04/14/2024 acetaminophen (TYLENOL) tablet 650 mg 650 mg, oral, Every 6 hours PRN, fever, Starting on Sat04/13/24 at 1054 1057 (NOV Hold - Provider: Automatic Transfer Provider - Reason: Patient not available)1422 (NOV Unhold - Provider: Automatic Transfer Provider) bisacodyl EC (DULCOLAX EC) tablet 10 mg 10 mg, oral, Daily PRN, constipation, If no results 24 hours after milk of magnesia, Starting on Sat04/13/24 at 2006, Do not crush, chew, cut, dissolve, open or otherwise manipulate tablet/capsule., Indications: constipation HYDROcodone-acetaminophen (NORCO) 5-325 mg per tablet 1 tablet 1 tablet, oral, 4 times daily PRN, 1st line for pain, Starting on Sat04/13/24 at 2007, Indications: Pain iohexoL (OMNIPAQUE) 240 mg iodine/mL injection solution 50 mL (COMPLETED) 50 mL, intra-urethral, Once in imaging, contrast, Starting on Sat04/13/24 at 1318, For 1 dose 1320 (Contrast Given - Provider: Denice Mayer, RT) iohexoL (OMNIPAQUE) 240 mg iodine/mL injection solution (CANCELED) As needed, Starting on Sat04/13/24 at 1311, Intra-Op 1311 (Given - Provider: Latricia Lang MD - Comment: 10 contrast with 10 saline) magnesium hydroxide (MILK OF MAGNESIA) 80 mg/mL (33.3 mg/mL as elemental magnesium) oral suspension 30 mL 30 mL, oral, Daily PRN, constipation, Starting on Sat04/13/24 at 2006 mineral oil (FLEET MINERAL OIL) enema 133 mL 133 mL (1 enema), rectal, Daily PRN, constipation, if no results 24 hours after bisacodyl, Starting on Sat04/13/24 at 2006, Indications: constipation ondansetron (ZOFRAN) injection 4 mg 4 mg, intravenous, Administer over 2 Minutes, Once as needed, nausea, vomiting, If patient unable to tolerate PO, Starting on Sat04/13/24 at 0749, For 1 dose, Do not administer if patient had 8mg administered within 6 hours of patient presenting to ED Do not administer if patient was formally diagnosed with prolonged QT syndrome 1057 ([facility] Hold - Provider: Automatic Transfer Provider - Reason: Patient not available)1422 ([facility] Unhold - Provider: Automatic Transfer Provider) ondansetron (ZOFRAN) injection 4 mg(Linked Group 1) 4 mg, intravenous, Administer over 2 Minutes, Every 6 hours PRN, nausea, vomiting, if not tolerating PO, Starting on Sat04/13/24 at 1056, Indications: Nausea and Vomiting 1057 ([facility] Hold - Provider: Automatic Transfer Provider - Reason: Patient not available)1422 ([facility] Unhold - Provider: Automatic Transfer Provider) ondansetron ODT (ZOFRAN-ODT) disintegrating tablet 4 mg 4 mg, oral, Once as needed, nausea, vomiting, If able to tolerate PO, Starting on Sat04/13/24 at 0749, For 1 dose, Do not administer if patient had 8mg administered within 6 hours of patient presenting to ED Do not administer if patient was formally diagnosed with prolonged QT syndrome 1057 ([facility] Hold - Provider: Automatic Transfer Provider - Reason: Patient not available)1422 ([facility] Unhold - Provider: Automatic Transfer Provider) ondansetron ODT (ZOFRAN-ODT) disintegrating tablet 4 mg(Linked Group 1) 4 mg, oral, Every 6 hours PRN, nausea, vomiting, Starting on Sat04/13/24 at 1056, Indications: Nausea and Vomiting 1057 (NOV Hold - Provider: Automatic Transfer Provider - Reason: Patient not available)1422 (NOV Unhold - Provider: Automatic Transfer Provider) polyethylene glycol (MIRALAX) packet 17 g 17 g, oral, Daily PRN, constipation, Starting on Sat04/13/24 at 2007, Indications: constipation sodium chloride 0.9% irrigation (CANCELED) As needed, Starting on Sat04/13/24 at 1253, Intra-Op 1252 (Given - Provider: Latricia Lang MD - Comment: For pressure bag)1253 (Given - Provider: Lalito Lang MD - Comment: On sterile field)1254 (Given - Provider: Lalito Lang MD) Linked Groups Order Group 1: ondansetron ODT (ZOFRAN-ODT) disintegrating tablet 4 mgJump to med 4 mg, oral, Every 6 hours PRN, nausea, vomiting, Starting on Sat04/13/24 at 1056, Indications: Nausea and Vomiting Or ondansetron (ZOFRAN) injection 4 mgJump to med 4 mg, intravenous, Administer over 2 Minutes, Every 6 hours PRN, nausea, vomiting, if not tolerating PO, Starting on Sat04/13/24 at 1056, Indications: Nausea and Vomiting documented in this encounter Orders Medications Ordered That Aden ht Not Have Been Administered Count Last Ordered Date First Ordered Date acetaminophen (TYLENOL) tablet 650 mg 1 01/2024 amisulpride (BARHEMSYS) injection 10 mg 1 0 04/13/2024 bisacodyl EC (DULCOLAX EC) tablet 10 mg 1 0 04/13/2024 ceFAZolin (ANCEF) 1 gram/10 mL in sterile water (premix) 3,000 mg 1 04/13/2024 ceFAZolin (ANCEF) 2,000 mg/2 0 mL in sterile water (premix) 2,000 mg 1 04/13/2024 fentaNYL (SUBLIMAZE) preserv ative free injection 50 mcg 2 04/13/2024 HYDROcodone-acetaminophen (N ORCO) 5-325 mg per tablet 1 tablet 2 04/13/2024 HYDROmorphone (DILAUDID) injection 1 mg 2 0 04/13/2024 ketorolac (TORADOL) 15 mg/mL injection 15 mg 2 04/13/2024 lisinopriL (PRINIVIL,ZESTRIL) tablet 5 mg 1 04/13/2024 magnesium hydroxide (MILK OF MAGNESIA) 80 mg/mL (33.3 mg/mL as elemental magnesium) oral suspension 30 mL 1 04/13/2024 mineral oil (FLEET MINERAL O IL) enema 133 mL 1 04/13/2024 naloxone (NARCAN) 0.4 mg/mL injection 0.04-0.4 mg 1 04/13/2024 ondansetron (ZOFRAN) injection 4 mg 2 04/13 ondansetron ODT (ZOFRAN-ODT) disintegrating tablet 4 mg 2 04/13/2024 polyethylene glycol (MIRALAX) packet 17 g 1 04/13/2024 sodium chloride 0.9% infusion 1 04/13/2024 Diet Count Last Ordered Date First Orde red Date ADULT DISCHARGE DIET 1 04/14/2024 Nursing Count Last Ordered Date First Orde red Date DISCHARGE ACTIVITY 1 04/14/2024 DISCHARGE CALL PROVIDER 4 04/14/2024 DISCHARGE INSTRUCTIONS 1 04/14/2024 FOLLOW UP WITH DEPARTMENT 1 04/14/2024 MISCELLANEOUS NURSING CARE ORDER (SPECIFY) 1 04/13/2024 IV Count Last Ordered Date First Orde red Date SALINE LOCK IV 1 04/13/2024 Admission Count Last Ordered Date First Orde red Date INITIATE OBSERVATION SERVICES 1 04/13/2024 Transfer Count Last Ordered Date First Orde red Date TRANSFER PATIENT TO NEW UNIT 1 04/13/2024 Discharge Count Last Ordered Date First Orde red Date DISCHARGE PATIENT 1 04/14/2024 CORE MEASURES Count Last Ordered Date First Ord ered Date REASON FOR NO VTE PROPHYLAXI S - HOSPITAL ADMISSION - MEDICATIONS 1 04/13/2024 documented in this encounter Care Teams Associate Veterinarian Relationship Specialty Start Date End Date La Kearney MD [address] [place] [address] [place] [address] PCP - General Family Medicine 10/02/22 Mariaelena Zaidi MD Consulting Physician Sleep Medicine 07/12/21 documented as of this encounter
--- OUTSIDE RECORDS SUMMARY | 2024-09-17 12:47 | XMS_ITS | Encounter Summary ---
Author Organization [facility] Address [address] [place] [address] Care Team Providers Care Tailor'S Aide Name Role Phone Mariaelena Zaidi MD Unavailable La Kearney MD Primary Care Provide r Reason for Visit * Reason Comments Flank Pain Encounter Details Date Type Department Care Team (Late st Contact Info) Description 04/12/2024 4:50 AM CDT - 04/12/2024 8:37 AM CDT Emergency [facility] Emergency Department [address] [place] [address] Sukhwinder Sanchez MD [address] [place] [address] DR LICONA [address] [place] [id number] Go Lai MD [address] [place] [address] [place] [address] Left ureteral stone (Primary Dx) Discharge Disposition: Discharge to home or self [...] on file 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 [employer] Gender Identity Not on file Sexual Orientation Not on file documented as of this encounter Last Filed Vital Signs Vital Sign Reading Time Taken Comments Blood Pressure 129/83 04/12/2024 8:30 AM CDT Pulse 56 04/12/2024 8:30 AM CDT Temperature 36.4 ??C (97.6 ??F) 04/12/2024 4:55 AM CD T Respiratory Rate 16 04/12/2024 8:30 AM CDT Oxygen Saturation 93% 04/12/2024 8:30 AM CDT Inhaled Oxygen Concentration - - Weight - - Height - - Body Mass Index - - documented in this encounter Discharge Instructions * Discharge Instructions* Go Lai MD - 04/12/2024 8:25 AM CDT Take pain medicine as needed. Drink plenty of fluids. Follow up with Urology [phone]. * Attachments The following attachments cannot be sent through Care Everywhere. * Kidney Stone w/ Colic ([place] Island[place]) documented in this encounter Medications at Time of Discharge lisinopriL (PRINIVIL,ZESTRIL) 5 mg tabletIndications:E ssential hypertension Take 1 tablet (5 mg total) by mouth nightly 100 tablet 3 02/18/2024 metoprolol XL (TOPROL-XL) 50 mg extended release tabletIndications:E ssential hypertension Take 1 tablet (50 mg total) by mouth nightly 90 tablet 3 02/18/2024 02/18/20 pramipexole (MIRAPEX) 1.5 mg tabletIndications:R estless legs syndrome TAKE 1 TABLET THREE TIMES A DAY 100 tablet 10 02/10/2024 pravastatin (PRAVACHOL) 40 mg tabletIndications:H yperlipidemia, unspecified hyperlipidemia type TAKE 1 TABLET DAILY 90 tablet 1 12/27/2023 tadalafiL (CIALIS) 20 mg tabletIndications:E rectile dysfunction due to arterial insufficiency Take 1 tablet (20 mg total) by mouth daily as needed for erectile dysfunction Max 1 daily. 20 tablet 3 01/29/2023 buPROPion XL (WELLBUTRIN XL) 300 mg 24 hr tablet TAKE 1 TABLET EVERY MORNING 100 tablet 1 03/08/2024 09/04/20 24 docusate sodium (COLACE) 100 mg capsuleIndications: constipation Take 1 capsule (100 mg total) by mouth 2 (two) times a day for 14 days 28 capsule 10/08/2023 04/14/20 24 HYDROcodone-acetami nophen (NORCO) 5-325 mg per tabletIndications:P ain Take 1 tablet by mouth every 6 (six) hours as needed for pain 12 tablet 04/12/2024 05/25/20 24 oxybutynin XL (Ditropan XL) 10 mg 24 hr tabletIndications:B ladder Hyperactivity Take 1 tablet (10 mg total) by mouth daily for 20 days 20 tablet 04/12/2022 04/14/20 24 documented as of this encounter Ordered Prescriptions Prescription Sig Dispense Quantity Refills Last Filled Start Date End Date HYDROcodone-acetam inophen (NORCO) 5-325 mg per tabletIndications: Pain Take 1 tablet by mouth every 6 (six) hours as needed for pain 12 tablet 04/12/2024 05/25/2024 documented in this encounter Discharge Disposition Disposition Code Departure Means Destination Comment s Discharge to home or self care documented in this encounter ED Notes * Sukhwinder Sanchez MD - 04/12/2024 5:26 AM CDT HPI Chief Complaint Patient presents with Flank Pain 53-year-old here with the complaints of left flank pain radiating to lower abdomen on and off for past 3 days however her past 3 hours it has been steady. He is unable to sleep or rest denies any fever or chills no history of trauma. Patient History: Patient Active Problem List Diagnosis Date Noted Right lower quadrant abdominal pain 10/07/2023 Status [...] 05/25/2020 Added automatically from request for surgery [id number] Sleep apnea Urinary retention Past Surgical History: [...] interested in counseling Vaping Use Vaping status: Not on file Substance and Sexual Activity Alcohol use: Yes Comment: can of beer a month Drug use: Yes Types: Alcohol Comment: 18 pack beer once weekly Sexual activity: Defer Social History Social History Narrative Not on file Review of Systems Review of Systems Constitutional: Negative. HENT: Negative. Respiratory: Negative. Cardiovascular: Negative. Gastrointestinal: Positive for nausea and vomiting. Genitourinary: Positive for flank pain. Musculoskeletal: Positive for back pain. Neurological: Negative. Hematological: Negative. Psychiatric/Behavioral: Negative. Physical Exam ED Triage Vitals [04/12/24 0455] Temp Pulse Resp BP SpO2 36.4 ??C (97.6 ??F) 83 20 140/84 98 % Temp src Heart Rate Source Patient Position BP Location FiO2 (%) Temporal -- -- -- -- Height Height Method Weight Weight Method -- -- -- -- Physical Exam Vitals and nursing note reviewed. Constitutional: Appearance: Normal appearance. HENT: Head: Normocephalic and atraumatic. Nose: Nose normal. Eyes: Pupils: Pupils are equal, round, and reactive to light. Cardiovascular: Rate and Rhythm: Normal rate and regular rhythm. Pulmonary: Effort: Pulmonary effort is normal. Breath sounds: Normal breath sounds. Abdominal: Palpations: Abdomen is soft. Musculoskeletal: General: Normal range of motion. Skin: General: Skin is warm. Neurological: General: No focal deficit present. Mental Status: He is alert and oriented to person, place, and time. MDM Medical Decision Making Amount and/or Complexity of Data Reviewed Labs: ordered. Radiology: ordered. Risk Prescription drug management. ED Course as of 04/12/242113 Time: 04/12 825 Comment: Pain is improved. By: Go Lai MD Final diagnoses: Left ureteral stone Sukhwinder Sanchez MD 04/12/24527 Sukhwinder Sanchez MD 04/12/242113 * Daphney Cardozo RN - 04/12/2024 4:52 AM CDT Pt c/o left side flank pain for the last couple hours. Pt has vomited twice. documented in this encounter Miscellaneous Notes * ED Re-evaluation Note - Go Lai MD - 04/12/2024 7:35 AM CDT ED Re-evaluation Patient here for flank pain, kidney stone. Patient is pain-free. Will discharge on hydrocodone and follow up with Urology. Labs Reviewed URINALYSIS AND REFLEX TO MICROSCOPIC AND CULTURE - Abnormal Result Value Color, ur Yellow Clarity, ur Clear Specific gravity, ur 1.011 pH, urine 5.0 Protein, ur ql Negative Glucose, ur ql Negative Ketones, ur Negative Bilirubin, ur Negative Blood, ur 2+ (*) Urobilinogen, ur <2.0 Nitrite, ur Negative Leukocyte esterase, ur Negative UA reflex comment Reflex to microscopic UA will be performed. URINALYSIS, MICROSCOPIC ONLY - Abnormal WBC, ur 0-5 RBC, ur 11-20 (*) Bacteria, ur Trace (*) Culture Reflex Comment Value: Reflex conditions for urine culture (WBC >10) not met. CBC WITH AUTO DIFFERENTIAL WBC 4.9 Hgb 14.4 Hct 41.8 Plt 213 MPV 9.8 RBC 4.49 MCV 93.1 MCH 32.1 MCHC 34.4 RDW CV 12.5 RDW SD 42.7 NRBC abs 0.00 DIFFERENTIAL AUTO Neutrophil abs 3.2 Imm gran abs 0.1 Lymphocyte abs 1.1 Monocyte abs 0.4 Eosinophil abs 0.1 Basophil abs 0.1 Neutrophil pct 64.4 Imm gran pct 1.0 Lymphocyte pct 22.9 Monocyte pct 7.9 Eosinophil pct 2.6 Basophil pct 1.[address] KUB Stone WO Contrast Final Result Go Lai MD 04/12/2427 documented in this encounter Plan of Treatment Not on file documented as of this encounter Procedures Procedure Name Priority Date/Time Associated Diagnosis Comments URINALYSIS AND REFLEX TO MICROSCOPIC AND CULTURE STAT 04/12/2024 6:53 AM CDT URINALYSIS, MICROSCOPIC ONLY STAT 04/12/2024 6:[address] KUB STONE WO CONTRAST ED 04/12/2024 5:49 AM CDT EGFR STAT 04/12/2024 5:01 AM CDT DIFFERENTIAL AUTO STAT 04/12/2024 5:0 1 AM CDT CBC WITH AUTO DIFFERENTIAL STAT 04/12/2024 5:01 AM CDT COMPREHENSIVE METABOLIC PANEL STAT 04/12/2024 5:01 AM CDT documented in this encounter Results * (ABNORMAL) Urinalysis, microscopic only (04/12/2024 6:53 AM CDT) WBC, ur 0-5 0 - 5 /HPF RBC, ur 11-20(A) 0 - 2 /HPF [facility] Bacteria, ur Trace(A) [facility] Culture Reflex Comment Reflex conditions for urine culture (WBC >10) not met. [facility] Urine 04/12/2024 6:53 AM CDT 04/12/2024 6:56 AM CDT Sukhwinder Sanchez MD LAB URINE ORDERABLES Final Res ult [facility] 1 [facility] Department [place] [address] * (ABNORMAL) Urinalysis reflex to microscopic and culture Urine (04/12/2024 6:53 AM CDT) Color, ur Yellow Yellow Clarity, ur Clear Clear [facility] Specific gravity, ur 1.011 1.003 - 1.030 [facility] pH, urine 5.0 [facility] Comment: Interpretive Data ? Urine pH is affected by diet, medications, systemic acid-base disturbances, and renal tubular function. ??pH may affect urinary stone formation. ??For example, urine pH below 6.0 may help reduce the tendency for calcium phosphate stones and pH greater than 6.0 may reduce the tendency for uric acid stone formation. Source: [facility] Current Interpretive Data was last revised on 2017 Protein, ur ql Negative Negative [facility] Glucose, ur ql Negative Negative [facility] Ketones, ur Negative Negative [facility] Bilirubin, ur Negative Negative [facility] Blood, ur 2+(A) Negative [facility] Urobilinogen, ur <2.0 <2.0 mg/dL [facility] Nitrite, ur Negative Negative [facility] Leukocyte esterase, ur Negative Negative [facility] UA reflex comment Reflex to microscopic UA will be performed. [facility] Urine 04/12/2024 6:53 AM CDT 04/12/2024 6:56 AM CDT Sukhwinder Sanchez MD LAB MICROBIOLOGY - GENERAL ORD ERABLES Final Result [facility] 1 [facility] Department [place] [address] * CT KUB Stone WO Contrast (04/12/2024 5:49 AM CDT) Anatomical Region Laterality Modality Abdomen N/A Computed Tomogra phy 04/12/2024 6:13 AM CDT Narrative 04/12/2024 6:22 AM CDT EXAM DESCRIPTION: ?? CT KUB STONE WO CONTRAST REASON FOR STUDY: ?? Flank pain, kidney stone suspected ?? Pt c/o left side flank pain for the last couple hours. Pt has vomited twice. ?? No hx of stones in past ??Hx of appendectomy and prostate surgery ??No hx of cancer ?? TECHNIQUE: CT scan of the abdomen and pelvis performed without intravenous and without ??oral contrast using helical scanning technique. Reconstructed coronal and sagittal MPR images reviewed. All images stored on PACS. Automated exposure control was used as a dose optimization technique for this examination. COMPARISON: ?? 12/13/2023 FINDINGS: LOWER CHEST: ??Lung bases clear. ??Mild cardiomegaly. ??No visible coronary artery calcification. ??No effusion. LIVER/BILIARY: ??[id number] hepatic steatosis. ?Biliary tree normal in caliber. GALLBLADDER: ??Normal. SPLEEN: ??Normal. PANCREAS: ??Normal. ADRENAL GLANDS: ??Normal. KIDNEYS/URINARY TRACT: ??7 mm distal ureteral calculus with moderate hydroureteronephrosis. ??No other urolithiasis is seen. ?? GI: ??Stomach and small bowel appear normal. ??Colon unremarkable. ?? Appendectomy. ?? OTHER ABDOMINAL/PELVIS: ??Major vascular structures are normal in caliber. ?? Cluster of lymph nodes behind the aorta unchanged. ??No free fluid. MSK: ??Moderate disc disease and facet arthropathy. ?? BODY WALL: ??Unremarkable. ?? IMPRESSION: 7 mm obstructing calculus in the distal left ureter with moderate hydroureteronephrosis. ?? THIS IS AN ELECTRONICALLY VERIFIED FINAL REPORT 04/12/2024 6:22 AM - Electronically signed by ??Ben Noland M.D. AR: MICHA D: ??04/12/2024 6:22 AM T: ??04/12/2024 6:22 AM Report ID: [id number] Reading Location: ??[id number] Procedure Note Ben Noland MD - 04/12/2024 EXAM DESCRIPTION: CT KUB STONE WO CONTRAST REASON FOR STUDY: Flank pain, kidney stone suspected Pt c/o left side flank pain for the last couple hours. Pt has vomitedtwice. No hx of stones in past Hx of appendectomy and prostate surgery No hx of cancer TECHNIQUE: CT scan of the abdomen and pelvis performed without intravenousand without oral contrast using helical scanning technique. Reconstructed coronal and sagittal MPR images reviewed. All images stored on PACS.Automated exposure control was used as a dose optimization technique for this examination. COMPARISON: 12/13/2023 FINDINGS: LOWER CHEST: Lung bases clear. Mild cardiomegaly. No visible coronary artery calcification. No effusion. LIVER/BILIARY: [id number] hepatic steatosis. Biliary tree normalin caliber. GALLBLADDER: Normal. SPLEEN: Normal. PANCREAS: Normal. [...] Ben Noland M.D. AR: MICHA Report ID: [id number] Reading Location: [place] [address] Sukhwinder Sanchez MD IMG CT PROCEDURES Final Result * eGFR (04/12/2024 5:01 AM CDT) eGFR 62 >=60 mL/min/1. 73 m2 Comment: Interpretive Data [...] interpretive data was last reviewed 2021. Blood 04/12/2024 5:01 AM CDT 04/12/2024 5:32 AM CDT us Sukhwinder Sanchez MD LAB BLOOD ORDERABLES Final Res ult [facility] 1 [facility] Department [place] [address] * Differential, auto (04/12/2024 5:01 AM CDT) Neutrophil abs 3.2 1.5 - 6.5 K/cumm Imm gran abs 0.1 0.0 - 0.1 K/cumm [facility] Lymphocyte abs 1.1 0.8 - 3.3 K/cumm [facility] Monocyte abs 0.4 0.2 - 0.8 K/cumm [facility] Eosinophil abs 0.1 0.0 - 0.5 K/cumm [facility] Basophil abs 0.1 0.0 - 0.1 K/cumm [facility] Neutrophil pct 64.4 % [facility] Comment: Interpretive Data Percent cell count reference ranges are not reported, since discordance with absolute values may lead to misinterpretation of CBC data. Current Interpretive Data was last revised on 2017. Imm gran pct 1.0 % [facility] Comment: Interpretive Data Percent cell count reference ranges are not reported, since discordance with absolute values may lead to misinterpretation of CBC data. Current Interpretive Data was last revised on 2017. Lymphocyte pct 22.9 % [facility] Comment: Interpretive Data Percent cell count reference ranges are not reported, since discordance with absolute values may lead to misinterpretation of CBC data. Current Interpretive Data was last revised on 2017. Monocyte pct 7.9 % [facility] Comment: Interpretive Data Percent cell count reference ranges are not reported, since discordance with absolute values may lead to misinterpretation of CBC data. Current Interpretive Data was last revised on 2017. Eosinophil pct 2.6 % [facility] Comment: Interpretive Data Percent cell count reference ranges are not reported, since discordance with absolute values may lead to misinterpretation of CBC data. Current Interpretive Data was last revised on 2017. Basophil pct 1.2 % [facility] Comment: Interpretive Data Percent cell count reference ranges are not reported, since discordance with absolute values may lead to misinterpretation of CBC data. Current Interpretive Data was last revised on 2017. Blood 04/12/2024 5:01 AM CDT 04/12/2024 5:32 AM CDT us Sukhwinder Sanchez MD LAB BLOOD ORDERABLES Final Res ult [facility] ([place] 1 [facility] Department [place] [address] * (ABNORMAL) Comprehensive metabolic panel (04/12/2024 5:01 AM CDT) Sodium 140 135 - 145 mmol/L Potassium, pl 4.0 3.3 - 4.9 mmol/L [facility] Chloride 104 97 - 110 mmol/L [facility] CO2 24 22 - 32 mmol/L [facility] Anion gap 12 2 - 15 mmol/L [facility] BUN 15 6 - 25 mg/dL [facility] Creatinine 1.35(H) 0.80 - 1.30 mg/dL [facility] Glucose 117 70 - 199 mg/dL [facility] [...] classification and Diagnosis of Diabetes Diabetes Care 202; 46: S19-S40. Current interpretive data was last revised 2022. Calcium 9.1 8.5 - 10.3 mg/dL [facility] Bilirubin, total 0.6 0.1 - 1.2 mg/dL [facility]) Protein, pl 6.6 6.5 - 8.5 g/dL [facility] Albumin 4.5 3.5 - 5.0 g/dL [facility] Alk phos 101 40 - 130 Units/L [facility] ALT 40 7 - 55 Units/L [facility] AST 26 10 - 50 Units/L [facility] Blood 04/12/2024 5:01 AM CDT 04/12/2024 5:32 AM CDT us Sukhwinder Sanchez MD LAB BLOOD ORDERABLES Final Res ult [facility]) 1 [facility] Department [place] [address] * CBC with auto differential (04/12/2024 5:01 AM CDT) WBC 4.9 3.8 - 9.9 K/cumm Hgb 14.4 13.0 - 17.5 g/dL [facility] Hct 41.8 38.9 - 50.3 % [facility] Plt 213 150 - 400 K/cumm [facility] MPV 9.8 9.1 - 12.3 fL [facility] RBC 4.49 4.30 - 5.80 M/cumm [facility] MCV 93.1 81.3 - 96.4 fL [facility] MCH 32.1 27.1 - 33.3 pg [facility] MCHC 34.4 32.3 - 35.7 g/dL [facility] RDW CV 12.5 11.1 - 14.9 % [facility] RDW SD 42.7 35.7 - 48.1 fL [facility] NRBC abs 0.00 0.00 - 0.01 K/cumm [facility] Blood 04/12/2024 5:01 AM CDT 04/12/2024 5:32 AM CDT us Sukhwinder Sanchez MD LAB BLOOD ORDERABLES Final Res ult [facility] 1 [facility] Department [place] [address] documented in this encounter Visit Diagnoses Diagnosis Left ureteral stone- Primary documented in this encounter Administered Medications Inactive Administered Medications - up to 3 most recent administrations Medication Order MAR Action Action Date Dose Rate Site ketorolac (TORADOL) 30 mg/mL injection 30 mg 30 mg, intravenous, Once, On 04/12/24 at 0634, For 1 dose, For Adult IV push, administer over 15 seconds Given 04/12/2024 6:58 AM CDT 30 mg morphine injection 4 mg 4 mg, intravenous, Administer over 4 Minutes, Once, On 04/12/24 at 0525, For 1 dose, Indications: PainIndications:Pain Given 04/12/2024 5:40 AM CDT 4 mg morphine injection 4 mg 4 mg, intravenous, Administer over 4 Minutes, Once, On 04/12/24 at 0557, For 1 dose Given 04/12/2024 6:01 AM CDT 4 mg ondansetron (ZOFRAN) injection 4 mg 4 mg, intravenous, Administer over 2 Minutes, Once, On 04/12/24 at 0525, For 1 dose, Indications: Nausea, VomitingIndications:Nausea, Vomiting Given 04/12/2024 5:40 AM CDT 4 mg sodium chloride 0.9% bolus 1,000 mL 1,000 mL, intravenous, Once, On 04/12/24 at 0634, For 1 dose New Bag 04/12/2024 6:59 AM CDT 1,000 mL sodium chloride 0.9% infusion 125 mL/hr, intravenous, Continuous, Starting on 04/12/24 at 0525 New Bag 04/12/2024 6:01 AM CDT 125 mL/hr 125 mL/hr documented in this encounter Active and Recently Administered Medications Times are shown in CDT. Scheduled Medication Order 04/10/2024 04/11/2024 04/12/2024 ketorolac (TORADOL) 30 mg/mL injection 30 mg (COMPLETED) 30 mg, intravenous, Once, On 04/12/24 at 0634, For 1 dose, For Adult IV push, administer over 15 seconds 0658 (Given - Provid er: Felisha Sandoval RN) morphine injection 4 mg (COMPLETED) 4 mg, intravenous, Administer over 4 Minutes, Once, On 04/12/24 at 0525, For 1 dose, Indications: Pain 0540 (Given - Provid er: Peter Blandon RN) morphine injection 4 mg (COMPLETED) 4 mg, intravenous, Administer over 4 Minutes, Once, On 04/12/24 at 0557, For 1 dose 0601 (Given - Provid er: Peter Blandon RN) ondansetron (ZOFRAN) injection 4 mg (COMPLETED) 4 mg, intravenous, Administer over 2 Minutes, Once, On 04/12/24 at 0525, For 1 dose, Indications: Nausea, Vomiting 0540 (Given - Provid er: Pteer Blandon RN) sodium chloride 0.9% bolus 1,000 mL (COMPLETED) 1,000 mL, intravenous, Once, On 04/12/24 at 0634, For 1 dose 0659 (New Bag - Prov ider: Felisha Sandoval RN)0837 (Stopped - Provider: Felisha Sandoval RN) Continuous Medication Order 04/10/2024 04/11/2024 04/12/2024 sodium chloride 0.9% infusion 125 mL/hr, intravenous, Continuous, Starting on 04/12/24 at 0525 0601 (New Bag - Prov ider: Peter Blandon RN)0659 (Hold - Provider: Felisha Sandoval RN - Reason: Other)1238 (Due: Stopped) documented in this encounter Care Teams Tailor'S Aide Relationship Specialty Start Date End Date La Kearney MD [address] [place] [address] [address] PCP - General Family Medicine 10/02/22 Mariaelena Zaidi MD Consulting Physician Sleep Medicine 07/12/21 documented as of this encounter
--- OUTSIDE RECORDS SUMMARY | 2024-09-17 12:47 | XMS_ITS | Encounter Summary ---
Author Organization [facility] Healthcare Address [address] [place] [address] Care Team Providers Care Cattle Broker Name Role Phone Mariaelena Zaidi MD Unavailable La Kearney MD Primary Care Provide r Reason for Visit * Auth/Cert (Routine) Specialty Diagnoses / Procedures Referred By Contac t Referred To Contact Diagnoses Flank pain Ureteral stone with hydronephrosis Vomiting, unspecified vomiting type, unspecified whether nausea present Procedures NA Referral ID Status Reason Start Date Expiration Date Visits Re quested Visits Authorized [id number] 1 1 Encounter Details Date Type Department Care Team (Late st Contact Info) Description 04/13/2024 12:40 PM CDT Anesthesia Event [facility] Operating Room [address] [place] [address] Madhav Cedeno MD [address] [place] [id number] Anesthesia Record Procedure Summary Procedure Name Responsible Anesthesiologist Anesthesia Start Time Anesthesia Stop Time LEFT CYSTOSCOPY, LEFT URETEROSCOPY WITH LASER LITHOTRIPSY, PLACEMENT URETERAL STENT LEFT, RETROGRADE PYELOGRAM (Left: Urethra) Madhav Cedeno MD 04/13/24 1240 04/13/24 1325 Events Date Time Event Comment 04/13/2024 1115 1240 In Room 1240 An Start 1240 An Start Data 1243 An Induction The patient was reevaluated immediately before moderate or deep sedation use and before anesthesia induction. 1243 An LMA 1243 Anesthesia Ready 1250 Proc Start 1311 Proc Fin 1317 Airway Removed 1317 an stop data 1318 Out of Room 1325 Handoff to RN I completed my handoff to the receiving nurse during which we: 1. Patient identified 2. Responsible provider identified 3. Pertinent medical history reviewed 4. Procedure type and surgical course discussed 5. Intraoperative anesthetic management and any significant issues discussed 6. Expectations and concerns for postop period discussed 7. Questions solicited from receiving nurse 8. Patient disposition at the time of handoff: PACU 1325 An Stop Meds Name Total midazolam 2 mg fentaNYL 100 mcg propofol 200 mg lidocaine (cardiac) syringe 2 % 100 mg phenylephrine (BIORPHEN) 0.5 mg/5 mL (10 0 mcg/mL) injection 200 mcg ondansetron 4 mg ceFAZolin (ANCEF) 1 gram/10 mL in steril e water (premix) 3,000 mg 3,000 mg ketorolac 30 mg dexAMETHasone 4 mg/mL 4 mg Lactated Ringer's (LR) infusion 700 mL * Agents Name O2 N2O Air Sevoflurane Inspired Sevoflurane * Blood No blood administrations on file. Lines, Drains, and Airways Type Details Placement Removal Closed/Suction/Open Drain 10/07/23; 1906; 1; Anterior, Midline; Abdomen; Bulb; 10 Fr. 10/07/23 1906 by Eva Barboza RN Ureteral Drain/Stent 04/13/24; 1309; Lef t ureter; 6 Fr. 04/13/24 1309 by Iris Talbot, TERESO RETIRED Surgical Site 02/06/19; 1307; Le ft; Flank; S/P LEFT RETRO-PERITONEAL BIOPSY; 08/11/24 (Retired LDA, Removed/Completed by Second Decimal with LDA Utility); 1213 (Retired LDA, Removed/Completed by Second Decimal with LDA Utility) 02/06/19 1307 by Ye Workman RN 08/11/24 1213 by Discharge Provider, Automatic RETIRED Surgical Site 10/07/23; 1907; Abdomen; 08/11/24 (Retired LDA, Removed/Completed by Second Decimal with LDA Utility); 1213 (Retired LDA, Removed/Completed by Second Decimal with LDA Utility) 10/07/23 1907 by Eva Barboza RN 08/11/24 1213 by Discharge Provider, Automatic Peripheral IV Placement Date: 04/13/24; Placement Time: 0756; Catheter Size: 20 G; Orientation: Right; Location: Antecubital; Removal Date: 04/14/24; Removal Time: 1257 04/13/24 0756 by Shannan Yun RN 04/14/24 1257 by Mendy Wilson RN Supraglottic Airway Placement Date: 04/13/24; Placement Time: 1253 (created via procedure documentation); Mask Ventilation: 0; Size: 4; Insertion Attempts: 1; Removal Date: 04/13/24; Removal Time: 1317 04/13/24 1253 by Odette Porter CRNA 04/13/24 1317 by Odette Porter CRNA RETIRED Surgical Site 04/13/24; 1254; Le ft; Penis; Left ureter; 08/11/24 (Retired LDA, Removed/Completed by Second Decimal with LDA Utility); 1213 (Retired LDA, Removed/Completed by Second Decimal with LDA Utility) 04/13/24 1254 by Iris Talbot RN 08/11/24 1213 by Discharge Provider, Automatic documented in this encounter Social History Tobacco [...] on file 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 Gender Identity Not on file Sexual Orientation Not on file documented as of this encounter OR Notes * Anesthesia Postprocedure Evaluation - Madhav Cedeno MD - 04/13/2024 1:39 PM CDT Patient: Jaden De La Torre Procedure Summary Date: 04/13/24 Room / Location: [facility] OPERATING ROOM Anesthesia Start: 1240 Anesthesia Stop: 1325 Procedure: LEFT CYSTOSCOPY, LEFT URETEROSCOPY WITH LASER LITHOTRIPSY, PLACEMENT URETERAL STENT LEFT, RETROGRADE PYELOGRAM (Left: Urethra) Diagnosis: (LEFT URETERAL STONE) Providers: Lalito Irene MD Responsible Provider: Madhav Cedeno MD Anesthesia Type: general ASA Status: 2 Anesthesia Type: general Last vitals BP 130/68 Pulse 68 Temp 36.5 ??C (97.7 ??F) (Temporal) Resp 23 SpO2 100% Anesthesia Post Evaluation Patient location during evaluation: PACU Patient participation: complete - patient participated Level of consciousness: fully awake Pain management: adequate Airway patency: adequate Evidence of recall: no Cardiovascular status: acceptable Respiratory status: acceptable Hydration status: acceptable Pt is: normothermic Nausea/Vomiting status: none No notable events documented. * Anesthesia Procedure Notes - Odette Porter CRNA - 04/13/2024 12:53 PM CDTAssociated Order(s): Airway Airway Patient location: OR Urgency: elective Indications for airway management: anesthesia Difficult airway: no Staff: Placed by: SPECIAL PROGRAMS DIRECTOR: Odette Porter CRNA Emergent airway documentation: Risks and benefits discussed: yes Consent obtained: yes Consent given by: patient Airway prep: Preoxygenated: yes Mask difficulty assessment: 0 - not attempted Spontaneous ventilation during airway: present Sedation level during airway: GA Final airway details: Final airway type: supraglottic airway Final supraglottic airway: unique SGA size: 4 Number of attempts: 1 * Anesthesia Preprocedure Evaluation - Madhav Cedeno MD - 04/13/2024 9:07 AM CDT Images from the original note were not included. Anesthesia Evaluation Jaden De La Torre is a 53 y.o. male LEFT CYSTOSCOPY, URETEROSCOPY WITH POSSIBLE LASER LITHO PLACEMENT URETERAL STENT (Left: Urethra) * No Diagnosis Codes entered * HISTORY Past Medical History Information obtained from: patient and chart. Information obtained during: In Person Neurological + Psychiatric history - depression and anxiety Cardiovascular + Hypertension + Hyperlipidemia Respiratory + Sleep apnea (TAJ) Prescribed device: PAP compliant and CPAP. Hepatic / Heme Hepatic/Heme system: negative Gastrointestinal + GERD - on daily therapy. Renal / + Renal disease - ARF + Nephrolithiasis Musculoskeletal/Pain + Osteoarthritis Endocrine / Other + Obesity (BMI >30) Patient Active Problem List Diagnosis Date Noted [...] 05/25/2020 Added automatically from request for surgery [id number] Sleep apnea Urinary retention Past Surgical History: Procedure Laterality Date APPENDECTOMY 10/07/2023 BAND HEMORRHOIDECTOMY BIOPSY ABDOMEN RETROPERITONEAL N/A 02/06/2019 CARPAL TUNNEL RELEASE Bilateral COLONOSCOPY 08/26/2020 1st KNEE ARTHROSCOPY Right 02/2006 rt ac resection PROSTATE SURGERY SHOULDER SURGERY Right No Known Allergies Med List Status: In Progress Set By: Shannan Yun RN at 04/13/2024 7:49 AM Taking? Last Dose Start Date End Date Provider buPROPion XL (WELLBUTRIN XL) 300 mg 24 hr tablet -- 03/08/24 -- La Kearney MD TAKE 1 TABLET EVERY MORNING docusate sodium (COLACE) 100 mg capsule () -- 10/08/23 10/22/23 Charissa Mcdonald NP Take 1 capsule (100 mg total) by mouth 2 (two) times a day for 14 days HYDROcodone-acetaminophen (NORCO) 5-325 mg per tablet -- 04/12/24 -- Go Lai MD Take 1 tablet by mouth every 6 (six) hours as needed for pain lisinopriL (PRINIVIL,ZESTRIL) 5 mg tablet -- 02/18/24 -- La Kearney MD Take 1 tablet (5 mg total) by mouth nightly metoprolol XL (TOPROL-XL) 50 mg extended release tablet -- 02/18/24 02/17/25 La Kearney MD Take 1 tablet (50 mg total) by mouth nightly pramipexole (MIRAPEX) 1.5 mg tablet -- 02/10/24 -- Sam Curry PA TAKE 1 TABLET THREE TIMES A DAY pravastatin (PRAVACHOL) 40 mg tablet -- 12/27/23 -- La Kearney MD TAKE 1 TABLET DAILY tadalafiL (CIALIS) 20 mg tablet () -- 01/29/23 01/29/24 Shaggy Jang MD Take 1 tablet (20 mg total) by mouth daily as needed for erectile dysfunction Max 1 daily. Current Facility-Administered Medications: ondansetron (ZOFRAN) injection 4 mg, 4 mg, intravenous, Once PRN ondansetron ODT (ZOFRAN-ODT) disintegrating tablet 4 mg, 4 mg, oral, Once PRN sodium chloride 0.9% bolus 1,000 mL, 1,000 mL, intravenous, Once, Last Rate: 1,000 mL/hr at 04/13/24 0832, 1,000 mL at 04/13/24 0832 Current Outpatient Medications: buPROPion XL (WELLBUTRIN XL) 300 mg 24 hr tablet docusate sodium (COLACE) 100 mg capsule HYDROcodone-acetaminophen (NORCO) 5-325 mg per tablet lisinopriL (PRINIVIL,ZESTRIL) 5 mg tablet metoprolol XL (TOPROL-XL) 50 mg extended release tablet pramipexole (MIRAPEX) 1.5 mg tablet pravastatin (PRAVACHOL) 40 mg tablet tadalafiL (CIALIS) 20 mg tablet Social History Tobacco Use Smoking Status Never Smokeless Tobacco Former Types: Chew Quit date: 08/2018 Tobacco Comments chews, not interested in counseling Alcohol Use: Not At Risk (02/18/2024) AUDIT-C Frequency of Alcohol Consumption: 2-3 times a week Average Number of Drinks: 1 or 2 Frequency of Binge Drinking: Never Substance and Sexual Activity Drug Use Yes Types: Alcohol Comment: 18 pack beer once weekly Family History Problem Relation Age of Onset Cancer Mother lung Hypertension Mother Leukemia Mother Cancer Father lung Throat cancer Father Vitals: 04/13/24 0748 BP: 169/81 Pulse: 67 Resp: 19 Temp: 36.9 ??C (98.4 ??F) SpO2: 96% PT: No results found for requested labs within last 30 days. INR: No results found for requested labs within last 30 days. APTT: No results found for requested labs within last 30 days. Hgb A1C: No results found for requested labs within last 30 days. CBC RBC: 04/13/2024: 4.27 M/cumm (L) RDW: No results found for requested labs within last 30 days. MCHC: 04/13/2024: 35.2 g/dL MCH: 04/13/2024: 32.1 pg MCV: 04/13/2024: 91.1 fL Hct: 04/13/2024: 38.9 % Hgb: 04/13/2024: 13.7 g/dL WBC: 04/13/2024: 8.6 K/cumm MPV: 04/13/2024: 9.5 fL Platelets: 04/13/2024: 174 K/cumm RDW CV: 04/13/2024: 12.2 % RDW Sd: 04/13/2024: 40.4 fL BMP Glucose: 04/13/2024: 111 mg/dL Calcium: 04/13/2024: 8.6 mg/dL Sodium: 04/13/2024: 135 mmol/L Potassium: 04/13/2024: 4.1 mmol/L CO2: 04/13/2024: 23 mmol/L Chloride: 04/13/2024: 100 mmol/L BUN: 04/13/2024: 17 mg/dL Creatinine: 04/13/2024: 1.74 mg/dL (H) DOS Physical Exam Medical history, medications, and allergies reviewed. Attestation: I endorse the findings of the anesthesia pre-evaluation assessment dated: 04/13/2024. Airway Exam: Mallampati: III Cervical ROM: FROM TM distance: normal Cardiovascular Exam: Rate: regular Rhythm: regular Pulmonary Exam: LCTA, bilat Dental Exam: Appears intact Current state: Patient's current state is cooperative and interactive. Anesthesia Plan ASA 2 My patient is approved for the Anesthesia Controlled Medication protocol when under care of a SPECIAL PROGRAMS DIRECTOR Planned anesthesia: General Team communication plan: LMA Induction: Induction: intravenous. Postoperative Plan: Postoperative administration opioids intended. No postoperative mechanical ventilation intended. Patient's planned disposition post procedure is Floor. Informed Consent: Discussed plan with attending and SPECIAL PROGRAMS DIRECTOR. Anesthesia plan and risks discussed with patient. Consent and Attending signature: I and/or my designee have discussed the anesthesia plan, benefits, possible alternatives, parental presence at time of induction (if indicated), and clinically relevant risks that may include dental injury, unintentional awareness, and/or other complications. The patient and/or parent/legal guardian understand, and agree to proceed. All questions answered. documented in this encounter Plan of Treatment Not on file documented as of this encounter Procedures Procedure Name Priority Date/Time Associated Diagnosis Comments MD AN ELECTIVE SUPRAGLOTTIC AIRWAY Routine 04/13/2024 12:53 PM CDT documented in this encounter Results * MD AN ELECTIVE SUPRAGLOTTIC AIRWAY (04/13/2024 12:53 PM CDT) Narrative Odette Porter CRNA - 04/13/2024 12:53 PM CDT Odette Porter CRNA ? 04/13/2024 12:53 PM Airway Patient location: OR Urgency: elective Indications for airway management: anesthesia Difficult airway: no Staff: Placed by: SPECIAL PROGRAMS DIRECTOR: Odette Porter CRNA Emergent airway documentation: Risks and benefits discussed: yes Consent obtained: yes Consent given by: patient Airway prep: Preoxygenated: yes Mask difficulty assessment: 0 - not attempted Spontaneous ventilation during airway: present Sedation level during airway: GA Final airway details: Final airway type: supraglottic airway Final supraglottic airway: unique SGA size: 4 Number of attempts: 1 Madhav Cedeno MD ANESTHESIA ORDERABLES Final Result documented in this encounter Visit Diagnoses Not on filedocumented in this encounter Administered Medications Inactive Administered Medications - up to 3 most recent administrations Medication Order MAR Action Action Date Dose Rate Site ceFAZolin (ANCEF) 1 gram/10 mL in sterile water (premix) 3,000 mg 3,000 mg, intravenous, at 600 mL/hr, Administer over 3 Minutes, Once, On Sat04/13/24 at 1200, For 1 dose, Pre-Op, Adjusted dose for weight >120 kg @ 124.3 kg, Indications: Prophylaxis, SurgicalIndications:Prophylaxis , Surgical Given 04/13/2024 12:45 PM CDT 3,000 mg dexAMETHasone (DECADRON) 4 mg/mL injection intravenous, Administer over 2 Minutes, As needed, Starting on Sat04/13/24 at 1308, Anesthesia Intra-op Given 04/13/2024 1:08 PM CDT 4 mg fentaNYL (SUBLIMAZE) preservative free injection intravenous, As needed, Starting on Sat04/13/24 at 1246, Anesthesia Intra-op Given 04/13/2024 12:50 PM CDT 50 mcg Given 04/13/2024 12:46 PM CDT 50 mcg ketorolac (TORADOL) 30 mg/mL injection intravenous, As needed, Starting on Sat04/13/24 at 1308, Anesthesia Intra-op Given 04/13/2024 1:08 PM CDT 30 mg Lactated Ringer's (LR) infusion 125 mL/hr, intravenous, Continuous, Starting on Sat04/13/24 at 1056 New Bag 04/14/2024 9:12 AM CDT 125 mL/hr 125 mL/hr New Bag 04/14/2024 1:01 AM CDT 125 mL/hr 125 mL/hr New Bag 04/13/2024 4:30 PM CDT 125 mL/hr 125 mL/hr lidocaine (PF) (XYLOCAINE) 20 mg/mL (2 %) preservative free injection intravenous, As needed, Starting on Sat04/13/24 at 1243, Anesthesia Intra-op Given 04/13/2024 12:43 PM CDT 100 mg midazolam (VERSED) 1 mg/mL preservative free injection intravenous, Administer over 2 Minutes, As needed, Starting on Sat04/13/24 at 1240, Anesthesia Intra-op Given 04/13/2024 12:40 PM CDT 2 mg ondansetron (ZOFRAN) injection intravenous, Administer over 2 Minutes, As needed, Starting on Sat04/13/24 at 1308, Anesthesia Intra-op Given 04/13/2024 1:08 PM CDT 4 mg phenylephrine (BIORPHEN) 0.5 mg/5 mL (100 mcg/mL) injection intravenous, As needed, Starting on Sat04/13/24 at 1301, Anesthesia Intra-op Given 04/13/2024 1:06 PM CDT 100 mcg Given 04/13/2024 1:01 PM CDT 100 mcg propofoL (DIPRIVAN) 10 mg/mL IV intravenous, As needed, Starting on Sat04/13/24 at 1243, Anesthesia Intra-op Given 04/13/2024 12:43 PM CDT 200 mg documented in this encounter Care Teams Cattle Broker Relationship Specialty Start Date End Date La Kearney MD [address] [place], [place] [address], [place] [address] PCP - General Family Medicine 10/02/22 Mariaelena Zaidi MD Consulting Physician Sleep Medicine 07/12/21 documented as of this encounter
--- OUTSIDE RECORDS SUMMARY | 2024-09-17 12:47 | XMS_ITS | Encounter Summary ---
Author Organization [facility] Healthcare Address [address] [place] [address] Care Team Providers Care Automotive Power Electronics Engineer Name Role Phone Mariaelena Zaidi MD Unavailable La Kearney MD Primary Care Provide r Reason for Referral * MRI/CAT/PET Scan (Routine) - Closed Specialty Diagnoses / Procedures Referred By Contac t Referred To Contact Radiology Diagnoses Lymphadenopathy Procedures CT Abdomen Pelvis W Contrast Ramos Fraga MD Phone: tel: fax: [facility] [address] [place] [address] Referral ID Status Reason Start Date Expiration Date Visits Re quested Visits Authorized [id number] Closed 10/15/2023 11/13/2024 1 1 CHAIN WORKER Reason for Visit * Reason Comments PO appendectomy 10/07/23 Encounter Details Date Type Department Care Team (Late st Contact Info) Description 10/15/2023 9:00 AM DRY CHAIN WORKER Office Visit [facility] [address] [facility] [address] [place] [id number] Ramos Fraga MD [address] [place] [address] [address] [place] [address] Acute appendicitis with localized peritonitis, without perforation, abscess, or gangrene (Primary Dx); Lymphadenopathy Social History Tobacco Use Types Packs/Day Years [...] on file 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 Gender Identity Not on file Sexual Orientation Not on file documented as of this encounter Last Filed Vital Signs Vital Sign Reading Time Taken Comments Blood Pressure 118/70 10/15/2023 8:42 AM DRY CHAIN WORKER Pulse 73 10/15/2023 8:42 AM DRY CHAIN WORKER Temperature 36 ??C (96.8 ??F) 10/15/2023 8:42 AM DRY CHAIN WORKER Respiratory Rate - - Oxygen Saturation 96% 10/15/2023 8:42 AM DRY CHAIN WORKER Inhaled Oxygen Concentration - - Weight 122.4 kg (269 lb 14.4 oz) 10/15/2023 8:42 AM DRY CHAIN WORKER Height 157.5 cm (5' 2 ) 10/15/2023 8:42 AM DRY CHAIN WORKER Body Mass Index 49.37 10/15/2023 8:42 AM DRY CHAIN WORKER documented in this encounter Progress Notes * Ramos Fraga MD - 10/15/2023 9:00 AM CST Images from the original note were not included. Post Op Note Subjective: Patient Name: Jaden De La Torre Date of Visit: 10/15/23 HPI: No complaints since surgery. Denies any significant pain. Tolerating a diet. Having good bowelfunction Chief Complaint: PO appendectomy (10/07/23) Objective: Vitals BP 118/70 (BP Location: Left arm, Patient Position: Sitting) Pulse 73 Temp 36 ??C (96.8 ??F) Ht 157.5 cm (5' 2 ) Wt 122.4 kg (269 lb 14.4 oz) SpO2 96% BMI 49.37 kg/m?? Physical Exam Incisions clean, dry and intact, CELIO with serous ou Assessment/Plan Diagnoses and all orders for this visit: Acute appendicitis with localized peritonitis, without perforation, abscess, or gangrene (Primary) Assessment & Plan: Pathology has been reviewed with the patient. Just acute appendicitis. He did have significant adenopathy seen on imaging that likely was just reactive. However we will repeat his CT scan in 6-8 weeks to ensure nothing remains. Also if he has not had a colonoscopy within the past several years thisshould also be repeated just to ensure no intraluminal cause of the appendicitis. Continue light duty for 4 weeks then can return to activities unrestricted. Patient will call us back with any further questions or concerns. Lymphadenopathy - CT Abdomen Pelvis W Contrast; Future 9:15 AM 10/15/2023 CHAIN WORKER documented in this encounter Miscellaneous Notes * Assessment & Plan Note - Ramos Fraga MD - 10/15/2023 9:14 AM CSTAssociated Problem(s): Acute appendicitis with localized peritonitis, without perforation, abscess,or gangrene Pathology has been reviewed with the patient. Just acute appendicitis. He did have significant adenopathy seen on imaging that likely was just reactive. However we will repeat his CT scan in 6-8 weeks to ensure nothing remains. Also if he has not had a colonoscopy within the past several years thisshould also be repeated just to ensure no intraluminal cause of the appendicitis. Continue light duty for 4 weeks then can return to activities unrestricted. Patient will call us back with any further questions or concerns. CHAIN WORKER documented in this encounter Plan of Treatment Not on file documented as of this encounter Results * CT Abdomen Pelvis [...] AM T: ??12/13/2023 11:29 AM Report ID: [id number] Reading Location: [id number] Procedure Note Ziggy Almaguer Jr., MD - [...] Electronically signed by Ziggy Almaguer M.D. CH: Report ID: [id number] Reading Location: [place] [address] Ramos Fraga MD IMG CT PROCEDURE S Final Result documented in this encounter Visit Diagnoses Diagnosis Acute appendicitis with localized peritonitis, without perforation, abscess, or gangrene- Primary Lymphadenopathy Enlargement of lymph nodes Lymphadenopathy Enlargement of lymph nodes documented in this encounter Care Teams Automotive Power Electronics Engineer Relationship Specialty Start Date End Date La Kearney MD [address] [place] [address] DR [address]UCAS [address] [place] [id number] PCP - General Family Medicine 10/02/22 Mariaelena Zaidi MD Consulting Physician Sleep Medicine 07/12/21 documented as of this encounter
--- OUTSIDE RECORDS SUMMARY | 2024-09-17 12:47 | XMS_ITS | Encounter Summary ---
Author Organization [facility] Healthcare Address [address] [place] [address] Care Team Providers Care Foster Care Case Manager Name Role Phone Mariaelena Zaidi MD Unavailable La Kearney MD Primary Care Provide r Reason for Visit * Diagnostic Imaging (Routine) - Closed Specialty Diagnoses / Procedures Referred By Contac t Referred To Contact Diagnoses Chronic midline thoracic back pain Procedures XR Spine Thoracic 3 Vw XR Spine Thoracic 2 Vw La Kearney MD [address] [place] [address] Phone: tel: fax: [address] [phone] Referral ID Status Reason Start Date Expiration Date Visits Re quested Visits Authorized [id number] Closed 05/25/2024 06/24/2025 1 1 Encounter Details Date Type Department Care Team (Latest Contact Info) Description 05/25/2024 9:25 AM CDT - 05/25/2024 11:59 PM CDT Hospital Encounter [facility] [address] [place] [phone] Chronic midline thoracic back pain; Acute pain of right shoulder Discharge Disposition: Discharge to home or self [...] on file 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 21 tablet 05/25/2024 05/31/20 24 buPROPion XL (WELLBUTRIN XL) 300 mg 24 hr tablet TAKE 1 TABLET EVERY MORNING 100 tablet 1 03/08/2024 09/04/20 24 ciprofloxacin (CIPRO) 500 mg tablet Take 1 tablet (500 mg total) by mouth 2 (two) times a day 6 tablet 04/14/2024 08/19/20 24 ketorolac (TORADOL) 10 mg tablet Take 1 tablet (10 mg total) by mouth every 6 (six) hours as needed for pain 30 tablet 04/14/2024 08/19/20 24 documented as of this encounter Discharge Disposition Disposition Code Departure Means Destination Discharge to home or self care documented in this encounter Plan of Treatment Not on file documented as of this encounter Procedures Procedure Name Priority Date/Time Associated Diagnosis Comments XR SHOULDER RIGHT 2 OR MORE VIEWS Schedule Routine, Read Routine (OP Routine) 05/25/2024 9:49 AM CDT Acute pain of right shoulder XR SPINE LUMBAR COMPLETE 4 OR MORE VIEWS Schedule Routine, Read Routine (OP Routine) 05/25/2024 9:49 AM CDT Chronic midline thoracic back pain XR SPINE THORACIC 3 VIEWS Schedule Routine, Read Routine (OP Routine) 05/25/2024 9:49 AM CDT Chronic midline thoracic back pain documented in this encounter Results * XR Spine Thoracic 3 Vw (05/25/2024 9:49 AM CDT) Anatomical Region Laterality [...] AM T: ??05/26/2024 1:56 AM Report ID: [id number] Reading Location: ??[id number] Procedure Note Mary Somers MD - 05/26/2024 [...] Mary Somers M.D. AT: AT Report ID: [id number] Reading Location: [place] [address] La Kearney MD IMG XR PROCEDURES Fin al Result * XR Shoulder Right 2 or More [...] AM T: ??05/26/2024 1:56 AM Report ID: [id number] Reading Location: ??[id number] Procedure Note Mary Somers MD - 05/26/2024 [...] Mary Somers M.D. AT: AT Report ID: [id number] Reading Location: [id number] La Kearney MD IMG XR PROCEDURES Fin [...] AM T: ??05/26/2024 1:56 AM Report ID: [id number] Reading Location: ??[id number] Procedure Note Mary Somers MD - 05/26/2024 [...] Mary Somers M.D. AT: AT Report ID: [id number] Reading Location: [place] [address] La Kearney MD IMG XR PROCEDURES Fin al Result documented in this encounter Visit Diagnoses Diagnosis Chronic midline thoracic back pain Acute pain of right shoulder documented in this encounter Care Teams Foster Care Case Manager Relationship Specialty Start Date End Date La Kearney MD [address] [place] [address] [address] PCP - General Family Medicine 10/02/22 Mariaelena Zaidi MD Consulting Physician Sleep Medicine 07/12/21 documented as of this encounter
--- OUTSIDE RECORDS SUMMARY | 2024-09-17 12:47 | XMS_ITS | Encounter Summary ---
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 Called asking if Flakito knew what his next step would be after the meeting with tumor board on Saturday. documented in this encounter Plan of Treatment Not on file documented as of this encounter Visit Diagnoses Not on filedocumented in this encounter Care Teams Electric Power Line Repairer Relationship Specialty Start Date End Date La Kearney MD [address] [place] [address] DR LUCAS [address] [place] [address] PCP - General Family Medicine 10/02/22 Mariaelena Zaidi MD Consulting Physician Sleep Medicine 07/12/21 documented as of this encounter
--- OUTSIDE RECORDS SUMMARY | 2024-09-17 12:47 | XMS_ITS | Encounter Summary ---
Author Organization [facility] Healthcare Address [address] [place] [address] Care Team Providers Care High Reach Operator Name Role Phone Mariealena Zaidi MD Unavailable La Kearney MD Primary Care Provide r Reason for Visit * Reason Comments 4 month follow up Encounter Details Date Type Department Care Team (Late st Contact Info) Description 02/18/2024 3:45 PM CDT Office Visit [facility] Primary Care at [address] [address] La Kearney MD [address] [place] [address] Essential hypertension Social History Tobacco Use Types Packs/Day Years Used Date Smoking Tobacco: Never Smokeless Tobacco: Former Chew Quit: 08/2018 Tobacco Cessation:Counseling Given: No Comments:chews, not interested in counseling Alcohol Use [...] on file 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 Gender Identity Not on file Sexual Orientation Not on file documented as of this encounter Last Filed Vital Signs Vital Sign Reading Time Taken Comments Blood Pressure 110/70 02/18/2024 3:43 PM CDT Pulse 65 02/18/2024 3:43 PM CDT Temperature 36.8 ??C (98.2 ??F) 02/18/2024 3:43 PM CD T Respiratory Rate 18 02/18/2024 3:43 PM CDT Oxygen Saturation 96% 02/18/2024 3:43 PM CDT Inhaled Oxygen Concentration - - Weight 128.7 kg (283 lb 12.8 oz) 02/18/2024 3:43 PM CDT Height 186 cm (6' 1.23 ) 02/18/2024 3:43 PM CDT Body Mass Index 37.21 02/18/2024 3:43 PM CDT documented in this encounter Patient Instructions * Patient Instructions* La Kearney MD - 02/18/2024 3:45 PM CDT My medical technologist microbiology and I are thankful you have trusted [...] Refills Last Filled Start Date End Date metoprolol XL (TOPROL-XL) 50 mg extended release tabletIndications: Essential hypertension Take 1 tablet (50 mg total) by mouth nightly 90 tablet 3 02/18/2024 lisinopriL (PRINIVIL,ZESTRIL) 5 mg tabletIndications: Essential hypertension Take 1 tablet (5 mg total) by mouth nightly 100 tablet 3 02/18/2024 documented in this encounter Progress Notes * La Kearney MD - 02/18/2024 3:45 PM CDT Images from the original note were not included. Subjective/Objective Patient ID: Jaden De La Torre is a 53 y.o. male. Chief Complaint 4 month follow up HPI 53 y.o.male coming in for follow up on htn. He denies chest pain palpitations sob lightheadedness dizziness or any other symptoms. He is tolerating his medications well. He does not check the blood pressure at home. Review of Systems Constitutional: Negative for chills and fever. Respiratory: Negative for cough and shortness of breath. Cardiovascular: Negative for chest pain. Gastrointestinal: Negative for abdominal pain. Vitals: 02/18/24 1543 BP: 110/70 BP Location: Left arm Patient Position: Sitting Pulse: 65 Resp: 18 Temp: 36.8 ??C (98.2 ??F) SpO2: 96% Weight: 128.7 kg (283 lb 12.8 oz) Height: 186 cm (6' 1.23 ) No visits with results within 1 Month(s) from this visit. Latest known visit with results is: Admission on 10/07/2023, Discharged on 10/08/2023 Component Date Value WBC 10/07/2023 9.3 Hgb 10/07/2023 14.5 Hct 10/07/2023 42.8 Plt 10/07/2023 216 MPV 10/07/2023 10.0 RBC 10/07/2023 4.58 MCV 10/07/2023 93.4 MCH 10/07/2023 31.7 MCHC 10/07/2023 33.9 RDW CV 10/07/2023 12.2 RDW SD 10/07/2023 42.3 NRBC abs 10/07/2023 0.00 Sodium 10/07/2023 135 Potassium, pl 10/07/2023 4.1 Chloride 10/07/2023 99 CO2 10/07/2023 24 Anion gap 10/07/2023 11 BUN 10/07/2023 12 Creatinine 10/07/2023 1.01 Glucose 10/07/2023 93 Calcium 10/07/2023 9.7 Bilirubin, total 10/07/2023 0.8 Protein, pl 10/07/2023 7.2 Albumin 10/07/2023 4.3 Alk phos 10/07/2023 123 ALT 10/07/2023 20 AST 10/07/2023 16 PT 10/07/2023 11.7 INR 10/07/2023 1.03 Color, ur 10/07/2023 Yellow Clarity, ur 10/07/2023 Clear Specific gravity, ur 10/07/2023 1.030 pH, urine 10/07/2023 5.5 Protein, ur ql 10/07/2023 Trace Glucose, ur ql 10/07/2023 Negative Ketones, ur 10/07/2023 Negative Bilirubin, ur 10/07/2023 Negative Blood, ur 10/07/2023 Negative Urobilinogen, ur 10/07/2023 <2.0 Nitrite, ur 10/07/2023 Negative Leukocyte esterase, ur 10/07/2023 1+ (A) UA reflex comment 10/07/2023 Reflex to microscopic UA will be performed. Neutrophil abs 10/07/2023 6.5 Imm gran abs 10/07/2023 0.1 Lymphocyte abs 10/07/2023 1.7 Monocyte abs 10/07/2023 0.8 Eosinophil abs 10/07/2023 0.2 Basophil abs 10/07/2023 0.1 Neutrophil pct 10/07/2023 70.4 Imm gran pct 10/07/2023 1.0 Lymphocyte pct 10/07/2023 18.1 Monocyte pct 10/07/2023 8.4 Eosinophil pct 10/07/2023 1.6 Basophil pct 10/07/2023 0.5 WBC, ur 10/07/2023 11-20 (A) RBC, ur 10/07/2023 0-2 Epithelial cells, squamo* 10/07/2023 1-5 Mucous, ur 10/07/2023 Present (A) Culture Reflex Comment 10/07/2023 Reflex to urine culture will be performed. Report 10/07/2023 Value:Final Report: Less than 100,000 colonies/mL (clinically insignificant growth based on current clinical standards) Organism 10/07/2023 (CLINICALLY INSIGNIFICANT GROWTH eGFR 10/07/2023 88 Sodium 10/08/2023 133 (L) Potassium, pl 10/08/2023 5.0 (H) Chloride 10/08/2023 101 CO2 10/08/2023 22 Anion gap 10/08/2023 11 BUN 10/08/2023 16 Creatinine 10/08/2023 1.11 Glucose 10/08/2023 165 Calcium 10/08/2023 9.0 Magnesium 10/08/2023 2.1 Phosphorus, pl 10/08/2023 3.2 WBC 10/08/2023 9.9 Hgb 10/08/2023 13.5 Hct 10/08/2023 39.3 Plt 10/08/2023 213 MPV 10/08/2023 9.8 RBC 10/08/2023 4.18 (L) MCV 10/08/2023 94.0 MCH 10/08/2023 32.3 MCHC 10/08/2023 34.4 RDW CV 10/08/2023 12.4 RDW SD 10/08/2023 43.1 NRBC abs 10/08/2023 0.00 eGFR 10/08/2023 78 Physical Exam Constitutional: General: He is not in acute distress. Appearance: He is well-developed. Neck: Thyroid: No thyromegaly. Cardiovascular: Rate and Rhythm: Normal rate and regular rhythm. Heart sounds: Normal heart sounds. No murmur (no edema) heard. Pulmonary: Effort: Pulmonary effort is normal. Breath sounds: Normal breath sounds. No wheezing. Musculoskeletal: Cervical back: Normal range of motion and neck supple. Lymphadenopathy: Cervical: No cervical adenopathy (no bruits). Assessment/Plan Diagnoses and all orders for this visit: Essential hypertension Assessment & Plan: Bp in the office today BP Readings from Last 1 Encounters: 02/18/24 110/70 Continue current regimen of lisinopril 5mg daily metoprolol 50mg at night Recommend DASH diet, heart-healthy lifestyle, exercise. Discussed the risks of hypertension. F/u at annual in 3 months Orders: - lisinopriL (PRINIVIL,ZESTRIL) 5 mg tablet; Take 1 tablet (5 mg total) by mouth nightly - metoprolol XL (TOPROL-XL) 50 mg extended release tablet; Take 1 tablet (50 mg total) by mouth nightly Side effects, risks, interactions reviewed with patient. [...] Plan Note - La Kearney MD - 02/17/2024 12:44 PM CDTAssociated Problem(s): Essential hypertension Bp in the office today BP Readings from Last 1 Encounters: 02/18/24 110/70 Continue current regimen of lisinopril 5mg daily metoprolol 50mg at night Recommend DASH diet, heart-healthy lifestyle, exercise. Discussed the risks of hypertension. F/u at annual in 3 months documented in this encounter Plan of Treatment Not on file documented as of this encounter Visit Diagnoses Diagnosis Essential hypertension Unspecified essential hypertension documented in this encounter Discontinued Medications Medication Sig Discontinue Reason Start Date End Da te lisinopriL (PRINIVIL,ZESTRIL) 5 mg tabletIndications:Essenti al hypertension Take 1 tablet (5 mg total) by mouth nightly Reorder 01/31/2024 02/18/2024 metoprolol XL (TOPROL-XL) 50 mg extended release tablet Take 1 tablet (50 mg total) by mouth nightly Reorder 09/09/2023 02/18/2024 documented as of this encounter Care Teams High Reach Operator Relationship Specialty Start Date End Date La Kearney MD 2 [facility] [address] LUCAS [address] [place] [address] PCP - General Family Medicine 10/02/22 Mariaelena Zaidi MD Consulting Physician Sleep Medicine 07/12/21 documented as of this encounter
--- OUTSIDE RECORDS SUMMARY | 2024-09-17 12:47 | XMS_ITS | Encounter Summary ---
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 Nothing further from workup needed at this time. He will call us with any questions. documented in this encounter Plan of Treatment Not on file documented as of this encounter Visit Diagnoses Not on filedocumented in this encounter Care Teams Theatrical Dresser Relationship Specialty Start Date End Date La Kearney MD [address] [facility] [address] [address] PCP - General Family Medicine 10/02/22 Mariaelena Zaidi MD Consulting Physician Sleep Medicine 07/12/21 documented as of this encounter
--- OUTSIDE RECORDS SUMMARY | 2024-09-17 12:47 | XMS_ITS | Encounter Summary ---
Author Organization [facility] Healthcare Address [address] [place] [address] Care Team Providers Care Negative Stripper Name Role Phone Mariaelena Zaidi MD Unavailable La Kearney MD Primary Care Provide r Encounter Details Date Type Department Care Team (Late st Contact Info) Description 12/17/2023 Telephone [facility] 4 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 The lymphadenopathy is still present it just has not progressed. Given the persistent nature on follow up CT scan I will present him at tumor board to see if further investigation is warranted based on the groups decision. The patient is in understanding of the plan. We will reach back out to him after we have discussed documented in this encounter Plan of Treatment Not on file documented as of this encounter Visit Diagnoses Not on filedocumented in this encounter Care Teams Negative Stripper Relationship Specialty Start Date End Date La Kearney MD [address] [facility] [address] LUCAS [address] [place] [address] PCP - General Family Medicine 10/02/22 Mariaelena Zaidi MD Consulting Physician Sleep Medicine 07/12/21 documented as of this encounter
--- OUTSIDE RECORDS SUMMARY | 2024-09-17 12:47 | XMS_ITS | Encounter Summary ---
Author Organization [facility] Healthcare Address [address] [place] [address] Care Team Providers Care Waterfront Director Name Role Phone Mariaelena Zaidi MD Unavailable La Kearney MD Primary Care Provide r Reason for Referral * Consultation (Routine) - Authorized Specialty Diagnoses / Procedures Referred By Contac t Referred To Contact Pain Management Diagnoses Chronic midline thoracic back pain Neck pain La Kearney MD [address] [place] [address] [address] [place] [address] Phone: tel: fax: Jose tSanton MD [address] [place] [address] [facility] [address] [place] [address] Phone: tel: fax: Referral ID Status Reason Start Date Expiration Date Visits Requested Visits Authorized [id number] Authorized Specialty Services Required 05/25/2024 06/24/2025 1 1 Question Answer Please select the performing region: [facility] [[id number]] To provider: JOSE STANTON [[id number]] # of visits: 1 Comments Or other provider Encounter Details Date Type Department Care Team (Late st Contact Info) Description 05/25/[address] 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 Gender Identity Not on file Sexual Orientation Not on file documented as of this encounter Miscellaneous Notes * Addendum Note - Tameka High - 05/25/2024 2:05 PM CDTAddended by: TAMEKA HIGH on: 05/25/2024 02:15 PM Modules accepted: Orders documented in this encounter Plan of Treatment Scheduled Referrals Name Type Priority Associated Diagnoses Order Schedule Ambulatory referral to Pain Management Outpatient Referral Routine Chronic midline thoracic back pain Neck pain Expected: 05/25/2024 (Approximate), Expires: 05/25/2025 documented as of this encounter Visit Diagnoses Diagnosis Chronic midline thoracic back pain- Primary Neck pain Cervicalgia Acute pain of right shoulder documented in this encounter Care Teams Waterfront Director Relationship Specialty Start Date End Date La Kearney MD [address] [facility] [address] LUCAS [address] [place] [address] PCP - General Family Medicine 10/02/22 Mariaelena Zaidi MD Consulting Physician Sleep Medicine 07/12/21 documented as of this encounter
--- OUTSIDE RECORDS SUMMARY | 2024-09-17 12:47 | XMS_ITS | Encounter Summary ---
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 SCAN OF 12/13/23 WITH PATIENT. TD documented in this encounter Plan of Treatment Not on file documented as of this encounter Visit Diagnoses Not on filedocumented in this encounter Care Teams Fixture Relamper Relationship Specialty Start Date End Date La Kearney MD [address] [facility] [address] LUCAS [address] [place] [address] PCP - General Family Medicine 10/02/22 Mariaelena Zaidi MD Consulting Physician Sleep Medicine 07/12/21 documented as of this encounter
--- OUTSIDE RECORDS SUMMARY | 2024-09-17 12:47 | XMS_ITS | Encounter Summary ---
Author Organization [facility] Healthcare Address [address] [place] [address] Care Team Providers Care Network Support Specialist Name Role Phone Mariaelena Zaidi MD Unavailable La Kearney MD Primary Care Provide r Reason for Visit * Reason Comments Vomiting * Auth/Cert (Routine) Specialty Diagnoses / Procedures Referred By Zaida t Referred To Contact Diagnoses Flank pain Ureteral stone with hydronephrosis Vomiting, unspecified vomiting type, unspecified whether nausea present Procedures NA Referral ID Status Reason Start Date Expiration Date Visits Re quested Visits Authorized [id number] 1 1 Encounter Details Date Type Department Care Team (Late st Contact Info) Description 04/13/2024 7:56 AM CDT - 04/14/2024 12:51 PM CDT Emergency [facility] Surgery Care [address] [place] [address] Idalia Young MD [address] [place] [address] Ben Rosas DO [address] [place] [address] Ramos Garcia DO [address] [place] [address] Ureteral stone with hydronephrosis (Primary Dx); Vomiting, unspecified vomiting type, unspecified whether nausea present; Flank pain; Left ureteral stone Discharge Disposition: Discharge to home or self [...] on file 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 Gender Identity Not on file Sexual Orientation Not on file documented as of this encounter Last Filed Vital Signs Vital Sign Reading Time Taken Comments Blood Pressure 135/64 04/14/2024 7:17 AM CDT Pulse 66 04/14/2024 7:17 AM CDT Temperature 36.8 ??C (98.2 ??F) 04/14/2024 7:17 AM CD T Respiratory Rate 20 04/14/2024 7:17 AM CDT Oxygen Saturation 94% 04/14/2024 7:17 AM CDT Inhaled Oxygen Concentration - - Weight 130 kg (286 lb 9.6 oz) 04/13/2024 2:24 PM CDT Height 188 cm (6' 2 ) 04/13/2024 2:24 PM CDT Body Mass Index 36.8 04/13/2024 2:24 PM CDT documented in this encounter Discharge Summaries * Jillian South NP - 04/14/2024 11:09 AM CDT Inpatient Discharge Summary [facility] Service Patient Name - Jaden Clement Patient Age - 53 yrs Patient - [id number] [facility] - [id number] Admitting Provider, : Ben Rosas DO Discharge Provider, : Ramos Garcia DO Primary Care Physician at Discharge: La Kearney MD [phone] Admission Date: 04/13/2024 Discharge Date/time: 04/14/2024 Admission Location: [facility] LOS - LOS: 0 days DETAILS OF [...] Your Medications These medications were sent to [facility] [place], [place] - [address] [facility] [address] [facility] [address], [facility] [id number] ciprofloxacin 500 mg tablet ketorolac 10 mg [...] schedule an appointment with the following provider(s): [facility] [place] [facility] [address] [place] [address] [address] [facility] [address] Please schedule follow up appointment in 2 weeks for stent removal ANCILLARY INFORMATION Other Procedures & Diagnostic Tests: FL Retro Pyelo (In Or) Result Date: 04/13/2024 EXAM DESCRIPTION: FL RETRO PYELO (IN OR) REASON FOR STUDY: pain. Previous CT of 04/12/2024 demonstrates left ureteral lithiasis. COMPARISON: CT dated 04/12/2024 RADIATION DOSE: Dose: 0.46983 mGycm2 Dose Area Product (DAP) Number of [...] JS: CHELSIE D: :23 PM Report ID: [id number] Reading Location: [id number] Recent Labs: Recent Labs Lab Units 04/14/24 [...] 17 15 CREATININE mg/dL 1.20 1.74* 1.35* NGG-HFG-SDEAYML mL/min/1.73 m2 71 46* 62 GLUCOSE mg/dL 127 111 117 CALCIUM mg/dL 8.7 8.6 9.1 ALBUMIN g/dL 3.7 4.0 4.5 Recent Labs Lab Units 04/14/24 03504/13/24 0755 [...] Care Everywhere. * Kidney Stones (Discharge Care) (Vietnamese) * Ureteral Stent Placement (Discharge Care) (Vietnamese) * Tamsulosin (By mouth) (Vietnamese) * Oxybutynin (By mouth) (Vietnamese) * Phenazopyridine (By mouth) (Vietnamese) * Laxative, Stool Softeners (By mouth) (Vietnamese) * Ketorolac (By mouth) (Vietnamese) * Ciprofloxacin (By mouth) (Vietnamese) documented in this encounter Medications at Time [...] Ciprofloxacin 500mg BID, disp 6, 0 refills Bryan 5/325 q6 hrs PRN pain, disp 28, [...] 05/25/2020 Added automatically from request for surgery [id number] Sleep apnea Urinary retention Past Surgical History: [...] mg/mL (33.3 mg/mL as elemental magnesium) oral [id number] mL 30 mL oral Daily PRN Janet [...] COMPARISON: CT dated 04/12/2024 RADIATION DOSE: Dose: 0.14164 mGycm2 Dose Area Product (DAP) Number of [...] Mando Dominguez M.D. JS: CHELSIE Report ID: [id number] Reading Location: [id number] CT KUB Stone WO Contrast Result Date: [...] visible coronary artery calcification. No effusion. LIVER/BILIARY: Kmcz-tr-blxrdnwh hepatic steatosis. Biliary tree normal in caliber. [...] and facet arthropathy. BODY WALL: Unremarkable. IMPRESSION: 7mm obstructing calculus in the distal left ureter with moderate hydroureteronephrosis. THIS IS AN ELECTRONICALLY VERIFIED FINAL REPORT 04/12/2024 6:22 AM - Electronically signed by Ben Noland M.D. AR: MICHA Report ID: [id number] Reading Location: [id number] A/P Ureteral stone with hydronephrosis. Status post left ureteral stent which will remain for 2 weeks, laser lithotripsy and stone extraction. Continue empiric Omnicef due to abnormal UA and follow up onurine culture results. Pain control with Bryan and p.r.n. Dilaudid. [facility]patient [facility]-up in [facility] [...] any separately reportable services. Voice recognition software [employer] was used dictate and transcribe this document. Business Education Instructor variances may occur. Despite proofreading, typographical errors [...] 05/25/2020 Added automatically from request for surgery [id number] Sleep apnea Urinary retention Past Surgical History: [...] 05/25/2020 Added automatically from request for surgery [id number] Sleep apnea Urinary retention Past Surgical History: [...] encounter Miscellaneous Notes * Initial Assessments - Deince Clark RN - 04/14/2024 12:51 PM CDT CM Low Risk Discharge Planning Assessment Note Primary Care Provider: La Kearney MD Preferred Pharmacy: [facility] HOME DELIVERY - [address] [address] Who does the patient or legal guardian want to receive education instruction and discharge plans for after care assistance?: Decline Living Arrangements: Spouse/significant other Does the patient need discharge transport arranged?: No (04/13/24 3374) Additional Information and Discharge Plan: DC plan [...] the Shift: Patient to remain hemodynamically stable. [facility] Goal for Treatment: Patient to [...] on left side Surgeon: Lalito Lang MD Manager Outreach: None Anesthesia: General Indications: This is a [...] MD - Primary Anesthesiologist: Madhav Cedeno MD SPEECH LANGUAGE PATHOLOGY ASSISTANT: Odette Porter CRNA Refrigeration Lead: Iris Talbot RN Occupational Psychologist: Denice [place] RT Scrub: Tiana Coronado ST MODERATE NEEDS TEACHER: Cas Sarah RN DATE OF SURGERY : [...] Implant Name Type Inv. Item Serial No. Nematologist Lot No. LRB No. Used Action [employer] Contour 6fr 28cm Taper Tip Bladder Oscar Low Profile Large Inner Latex Free 180-224 - [id number] [employer] Contour 6fr 28cm Taper Tip Bladder Oscar Low Profile Large Inner Latex Free 180-224 [place] [employer] [id number] Left 1 Implanted Blood/Blood Products Transfused: 0 [...] 3:50 AM CDT 04/14/2024 4:47 AM CDT Idalia Young MD LAB BLOOD ORDERABLE S Final Result [facility] ([place]) 1 [facility] Department [place] [address] * (ABNORMAL) Differential, auto (04/14/2024 3:50 AM CDT) [facility] Neutrophil abs 7.5(H) 1.5 - 6.5 K/cumm Imm gran abs 0.0 0.0 - 0.1 K/cumm [facility] ([place]) Lymphocyte abs 0.9 0.8 - 3.3 K/cumm [...] LAB BLOOD ORDERABLE S Final Result [facility] ([place]) 1 [facility] Department [place] [address] * (ABNORMAL) Comprehensive metabolic panel (04/14/2024 3:50 [...] S Final Result [facility] ([place]) 1 [facility] DOCUSYS [place] [address] * (ABNORMAL) CBC with auto differential (04/14/2024 [...] BLOOD ORDERABLE S Final Result [facility] ([place]) 1 [facility] [place] [address] * Surgical pathology (04/13/2024 1:37 PM CDT) Tissue (Calculus/calculi /stone, gross and Chemical Analysis) 04/13/2024 12:58 PM CDT Narrative [facility]Y [facility] ([facility]) - 04/15/2024 4:14 PM CDT [facility] results best viewed via link to PDF [facility] Department of Pathology [address] [place] [address] Note to Patients: This report may contain [...] Final Report Patient Name: ??JADEN CLEMENT Address: ??[facility], ??[place], [place] [address] Gender: ??M : ??1970 (Age: 53) Service: ??Medical Location: ??[facility] Hospital #: ??[id number] Patient Type: ??[facility] EP OP in bed Accession # ?[id number] Taken: ??04/13/2024 Received: ??04/13/2024 Accessioned: ??04/13/2024 Reported: ??04/15/2024 Physician(s):Lalito Lang MD Diagnosis: Ureter, left: ? - Calculi (gross examination only). ? - Submitted to [facility] for chemical analysis. Wilfredo Ryder MD [...] mm. The specimen is entirely submitted to [facility] for chemical analysis. When the [facility] report has been finalized, it will be available in the laboratory section of Clinical Desktop and Epic. If Clinical Desktop or Epic is not available, please call the Department of Pathology at [facility] ([phone]) to obtain a copy of the report. Alejandra Arreguin R.N., P.A./Heath Jain M.D. REPORT IMAGES AND SCANNED DOCUMENTS, IF INCLUDED, ONLY VIEWABLE IN PDF VERSION OF REPORT The performance characteristics of some immunohistochemical stains, fluorescence in-situ hybridization tests and immunophenotyping by flow cytometry cited in this report (if any) were determined by the Surgical Pathology Department at [facility] as part of an ongoing air quality technician program and in compliance with federally mandated [...] characteristics determined by the Surgical Pathology Department [facility]. ??It has not been cleared or approved by the U. S. Food and Drug Administration. Note for decalcified specimens: This assay has not been validated on decalcified tissues. Results should be interpreted with caution given the possibility of false negativity on decalcified specimens [facility], [place] Lang MD LAB PATHOLOGY ORDERABLES Final Result [facility] ([place]) [address] [place] [address] * FL Retro Pyelo (In Or) (04/13/2024 1:26 PM CDT) Anatomical Region Laterality Modality Body N/A Radio Fluoroscop y 04/13/2024 5:19 PM CDT Narrative 04/13/2024 5:23 PM CDT EXAM DESCRIPTION: ?? FL RETRO PYELO (IN OR) REASON FOR STUDY: ?? pain. ??Previous CT of 04/12/2024 demonstrates left ureteral lithiasis. COMPARISON: ?? CT dated 04/12/2024 RADIATION DOSE: Dose: ??0.71841 ?? mGycm2 Dose Area Product (DAP) Number [...] PM T: ??04/13/2024 5:23 PM Report ID: [id number] Reading Location: ??[id number] Procedure Note Mando Dominguez, DO - 04/13/2024 EXAM DESCRIPTION: FL RETRO PYELO (IN OR) REASON FOR STUDY: pain. Previous CT of 04/12/2024 demonstrates left ureteral lithiasis. COMPARISON: CT dated 04/12/2024 RADIATION DOSE: Dose: 0.90752 mGycm2 Dose Area Product (DAP) Number of [...] Mando Dominguez M.D. JS: CHELSIE Report ID: [id number] Reading Location: [id number] Lalito Lang MD IMG FLUOROSCOPY PROCEDURES Fin al Result * Stone analysis (04/13/2024 12:00 PM CDT) Stone analysis Not Reported [facility] Comment:Testing performed by : [facility], [address] [place] [address], [id number] Source, Kid Stone Left Ureter [facility] ([place]) Comment:Testing performed by : [facility], [address] [place] [address]., [address] Interp, Kid stone analysis See Footnote [facility] ([place]) Comment: 60% Calcium oxalate dihydrate. 20% Calcium oxalate monohydrate. ??20% Calcium phosphate (apatite). Testing performed by: [facility], [address] [place] [address], [address] COMMENT See Footnote [facility] ([place]) Comment: For stones containing calcium oxalate, calcium phosphate, and/or uric acid, a 24 hr urinary supersaturation test may help detect underlying risk factors for this type of stone formation and provide guidance for a stone prevention strategy. ADDITIONAL INFORMATION This test was developed and its performance characteristics determined by [facility] in a manner consistent with CLIA requirements. This test has not been cleared or approved by the U.S. Food and Drug Administration. Test Performed by: [facility] [place] [place] [address] Rug Shampooer: Paul Yeun Ph.D.; CLIA# [id number] Testing performed by: [address], [address] Stone 04/13/2024 12:0 0 PM CDT 04/16/2024 11:16 AM CDT Narrative [facility] ([place]) - 04/27/2024 8:15 PM CDT LEFT URETERAL STONE Ramos Wilkerson Radha DO LAB URINE ORDERABLES F inal Result [facility] ([place]) 1 [facility] Department [place] [address] [facility] ref Lab * (ABNORMAL) Urinalysis, microscopic only (04/13/2024 8:34 AM CDT) WBC, ur 6-10(A) 0 - 5 /HPF RBC, ur 6-10(A) 0 - 2 /HPF [facility] ([place]) Epithelial cells, squamous, ur 1-5 0 - 5 /HPF [facility] ([place]) Mucous, ur Present(A) [facility] ([place]) Culture Reflex Comment Reflex conditions for urine culture (WBC >10) not met. [facility] ([place]) Urine 04/13/2024 8:34 AM CDT 04/13/2024 8:38 AM CDT us Idalia Young MD LAB URINE ORDERABLE S Final Result Performing Organization Address City[facility] Co de Phone Number [facility] ([place]) 1 [facility] Department [place] [address] * Sepsis Lactate w/ Reflex (04/13/2024 8:34 AM CDT) Sepsis Lactate 0.7 0.7 - 2.0 mmol/L Blood 04/13/2024 8:34 AM CDT 04/13/2024 8:38 AM CDT us Idalia Young MD LAB BLOOD ORDERABLE S Final Result [facility] ([place]) 1 [facility] Department [place] [address] * (ABNORMAL) Urinalysis reflex to microscopic and culture Urine (04/13/2024 8:34 AM CDT) Pathologist [facility] Color, ur Yellow Yellow Clarity, ur Clear Clear [facility] ([place]) Specific gravity, ur 1.027 1.003 - [...] tendency for uric acid stone formation. Source: [facility] Current Interpretive Data was last revised on [...] [facility] ([place]) Leukocyte esterase, ur 2+(A) Negative [facility] ([facility]) UA reflex comment Reflex to microscopic UA will be performed. [facility] ([place]) Urine 04/13/2024 8:34 AM CDT 04/13/2024 8:38 AM CDT us Idalia Young MD LAB MICROBIOLOGY - GENERAL ORDERABLES Final Result [facility] ([place]) 1 [facility] Department [place] [address] * (ABNORMAL) eGFR (04/13/2024 7:55 AM CDT) Pathologist [facility] eGFR 46(L) >=60 mL/min/1. 73 m2 Comment: [...] LAB BLOOD ORDERABLE S Final Result [facility] ([place]) 1 [facility] Department [place] [address] * (ABNORMAL) Differential, auto (04/13/2024 7:55 AM [...] BLOOD ORDERABLE S Final Result [facility] ([place]) 1 [facility] Department [place] [address] * (ABNORMAL) Comprehensive metabolic panel (04/13/2024 7:55 [...] S Final Result [facility] ([place]) 1 [facility] Department [place] [address] * (ABNORMAL) CBC with auto differential (04/13/2024 [...] RDW SD 40.4 35.7 - 48.1 fL [facility] NRBC abs 0.00 0.00 - 0.01 K/cumm [facility] Blood (Blood, Venous) 04/13/2024 7:55 AM CDT 04/13/2024 8:04 AM CDT us Idalia Young MD LAB BLOOD ORDERABLE S Final Result [facility] ([place]) 1 [facility] Department [place] [address] documented in this encounter Visit Diagnoses Diagnosis Ureteral stone with hydronephrosis- Primary Ureteral stone with hydronephrosis Vomiting, unspecified vomiting type, unspecified whether nausea present Flank pain Abdominal pain, unspecified site Left ureteral stone JENNIFER (acute kidney injury) (HCC) documented in this encounter Admitting Diagnoses Diagnosis Ureteral [...] Given 04/13/2024 8:41 PM CDT 300 mg HYDROcodone-acetaminophen (NORCO) 5-325 mg per tablet 1 tablet 1 tablet, oral, 4 times daily PRN, 1st line for pain, Starting on Sat04/13/24 at 2007, Indications: PainIndications:Pain HYDROmorphone (DILAUDID) injection 1 mg 1 mg, intravenous, Administer over 2 Minutes, Once, On Sat04/13/24 at 0814, For 1 dose Given 04/13/2024 8:32 AM CDT 1 mg iohexoL (OMNIPAQUE) 240 mg iodine/mL injection solution 50 mL 50 mL, intra-urethral, Once in imaging, contrast, Starting on Sat04/13/24 at 1318, For 1 dose Contrast Given 04/13/2024 1:20 PM CDT 10 mL ketorolac (TORADOL) 15 mg/mL injection 15 mg [...] 8:32 AM CDT 1,000 mL 1000 mL/hr documented in this encounter Discontinued Medications Medication [...] 1 dose 0832 (Given - Provider: Laura Covington, RN) ketorolac (TORADOL) 15 mg/mL injection 15 mg (COMPLETED) 15 mg, intravenous, Once, On Sat04/13/24 at 0915, For 1 dose, For Adult IV push, administer over 15 seconds 0916 (Given - Provider: Laura Covington, RN) lisinopriL (PRINIVIL,ZESTRIL) tablet 5 mg 5 mg, [...] - Comment: recieved from pharmacy at 2223) 0901 (Given - Provider: Mendy Wilson, TERESO) senna-docusate (PERICOLACE) 8.6-50 mg per tablet 2 tablet 2 tablet, oral, 2 times daily, First dose on Sat04/13/24 at 2100 2040 (Given - Provider: Chayito Horta RN) 0901 (Given - Provider: Mendy Wilson RN) sodium chloride 0.9% bolus 1,000 mL (COMPLETED) 1,000 mL, intravenous, at 1,000 mL/hr, Administer over 1 Hours, Once, On Sat04/13/24 at 0814, For 1 dose 0832 (New Bag - Provider: Laura Covington, RN)1011 (Stopped - Provider: Laura Covington, RN) Continuous Medication Order 04/12/2024 04/13/2024 04/14/2024 Lactated Ringer's (LR) infusion 125 mL/hr, intravenous, Continuous, Starting on Sat04/13/24 at 1056 1240 (New Bag - Provider: Odette Porter CRNA)1313 (Anesthesia Volume Adjustment - Provider: Odette Porter CRNA)1630 (New Bag - Provider: Ginger Diez, RN) 0101 (New Bag - Provider: Chayito Horta RN)0912 (New Bag - Provider: Mendy Wilson, RN)1104 (Stopped - Provider: Mendy Wilson RN) PRN [...] was formally diagnosed with prolonged QT syndrome 105 ([facility] Hold - Provider: Automatic Transfer Provider - Reason: Patient not available)1422 ([facility] Unhold - Provider: Automatic Transfer Provider) ondansetron (ZOFRAN) injection 4 mg(Linked Group 1) 4 mg, intravenous, Administer over 2 Minutes, Every 6 hours PRN, nausea, vomiting, if not tolerating PO, Starting on Sat04/13/24 at 1056, Indications: Nausea and Vomiting 1057 ([facility] Hold - Provider: Automatic Transfer Provider - Reason: Patient not available)1422 ([facility] Unhold - Provider: Automatic Transfer Provider) [...] formally diagnosed with prolonged QT syndrome 1057 ([facility] Hold - Provider: Automatic Transfer Provider - Reason: Patient not available)1422 ([facility] Unhold - Provider: Automatic Transfer Provider) ondansetron ODT (ZOFRAN-ODT) disintegrating tablet 4 mg(Linked Group 1) 4 mg, oral, Every 6 hours PRN, nausea, vomiting, Starting on Sat04/13/24 at 1056, Indications: Nausea and Vomiting 1057 ([facility] Hold - Provider: Automatic Transfer Provider - Reason: Patient not available)1422 ([facility] Unhold - Provider: Automatic Transfer Provider) polyethylene [...] (DILAUDID) injection 1 mg 2 0 04/13/2024 iohexoL (OMNIPAQUE) 240 mg i odine/mL injection solution 1 04/13/2024 ketorolac (TORADOL) 15 mg/mL injection 15 [...] 04/13/2024 sodium chloride 0.9% infusion 1 04/13/2024 sodium chloride 0.9% irrigation 1 Diet Count Last Ordered Date First Orde [...] 04/13/2024 documented in this encounter Care Teams Network Support Specialist Relationship Specialty Start Date End Date La Kearney MD [address] [place] [address] PCP - General Family Medicine 10/02/22 Mariaelena Zaidi MD Consulting Physician Sleep Medicine 07/12/21 documented as of this encounter
--- OUTSIDE RECORDS SUMMARY | 2024-09-17 12:47 | XMS_ITS | Encounter Summary ---
Author Organization [facility] Healthcare Address [address] [place] [address] Care Team Providers Care Business Improvement Manager Name Role Phone Mariaelena Zaidi MD Unavailable La Kearney MD Primary Care Provide r Encounter Details Date Type Department Care Team (Late st Contact Info) Description 02/18/[address] 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 Gender Identity Not on file Sexual Orientation Not on file documented as of this encounter Plan of Treatment Scheduled Orders Name Type Priority Associated Diagnoses Orde r Schedule CBC with auto differential Lab Routine Healthcare maintenance Expected: 05/11/2024, Expires: 02/17/2025 Comprehensive metabolic panel Lab Routine Healthcare maintenance Expected: 05/11/2024 (Approximate), Expires: 02/17/2025 Lipid panel Lab Routine Healthcare maintenance Expected: 05/11/2024, Expires: 02/17/2025 Hemoglobin A1c Lab Routine Healthcare maintenance Expected: 05/11/2024, Expires: 02/17/2025 PSA screen Lab Routine Healthcare maintenance Expected: 05/11/2024, Expires: 02/17/2025 Hepatitis B surface antibody (immune status) Blood Microbiology Routine Need for hepatitis B screening test Healthcare maintenance Expected: 05/11/2024, Expires: 02/17/2025 Hepatitis B Surface Antigen Blood Microbiology Routine Need for hepatitis B screening test Healthcare maintenance Expected: 05/11/2024, Expires: 02/17/2025 Hepatitis B core antibody, total Blood Microbiology Routine Need for hepatitis B screening test Healthcare maintenance Expected: 05/11/2024, Expires: 02/17/2025 documented as of this encounter Visit Diagnoses Diagnosis Need for hepatitis B screening test- Primary Healthcare maintenance documented in this encounter Care Teams Business Improvement Manager Relationship Specialty Start Date End Date La Kearney MD [address] [place] [address] DR LUCAS [address] [place] [address] PCP - General Family Medicine 10/02/22 Mariaelena Zaidi MD Consulting Physician Sleep Medicine 07/12/21 documented as of this encounter
--- OUTSIDE RECORDS SUMMARY | 2024-09-17 12:48 | XMS_ITS | Encounter Summary ---
Author Organization [facility] Healthcare Address [address] [place] [address] Care Team Providers Care Gas Well Pumper Name Role Phone Mariaelena Zaidi MD Unavailable La Kearney MD Primary Care Provide r Reason for Visit * Auth/Cert (Routine) Specialty Diagnoses / Procedures Referred By Contac t Referred To Contact Diagnoses Acute appendicitis with localized peritonitis, without perforation, abscess, or gangrene Status post appendectomy Acute appendicitis Procedures N/A Referral ID Status Reason Start Date Expiration Date Visits Re quested Visits Authorized [id number] 1 1 Encounter Details Date Type Department Care Team (Late st Contact Info) Description 10/07/2023 6:08 PM ON CAR SUPERVISOR Anesthesia Event [facility] Operating Room [address] [place] [address] [place] [id number] [facility] [address] [place] [address] Maura Fernandez MD [address] [facility] [address] [place] [address] Anesthesia Record Procedure Summary Procedure Name Responsible Anesthesiologist Anesthesia Start Time Anesthesia Stop Time LAPAROSCOPIC APPENDECTOMY (Abdomen) Aliya Berumen MD 10/07/23 1808 10/07/23 19 37 Events Date Time Event Comment 10/07/2023 1703 1808 In Room 1808 An Start 1809 An Start Data 1818 An Induction The patient was reevaluated immediately before moderate or deep sedation use and before anesthesia induction. 181 An Intubation 182 Anesthesia Ready 182 Proc Start 1828 Incision Start 1914 Proc Fin 1927 An Extubation 1929 Out of Room 1929 an stop data 1936 Handoff to RN I completed my handoff [...] Patient disposition at the time of handoff: No value filed. 1936 An Stop Meds Name Total midazolam 2 mg fentaNYL 100 mcg propofol 200 mg lidocaine (cardiac) syringe 2 % 60 mg rocuronium 50 mg succinylcholine 140 mg phenylephrine 100 mcg ondansetron 4 mg dexamethasone 10 mg ketamine 10 mg/mL - 5 mL 50 mg cefOXitin (MEFOXITIN) 2,000 mg/20 mL in sterile water (premix) 2,000 mg 2,000 mg sugammadex 200 mg Lactated Ringer's (LR) infusion 700 mL * Agents Name O2 N2O Air Sevoflurane Inspired Sevoflurane * Blood No blood administrations on file. Lines, Drains, and Airways Type Details Placement Removal Closed/Suction/Open Drain 10/07/23; 190; 1; Anterior, Midline; Abdomen; Bulb; 10 Fr. 10/07/231905 by Eva Barboza RN RETIRED Surgical Site 02/06/19; 1307; Le ft; Flank; S/P LEFT RETRO-PERITONEAL BIOPSY; 08/11/24 (Retired LDA, Removed/Completed by [facility] with LDA Utility); 1213 (Retired LDA, Removed/Completed by [facility] with LDA Utility) 02/06/19 1307 by Ye Workman RN 08/11/24 1213 by Discharge Provider, Automatic Urethral Catheter Placement Date: 06/20/22; Placement Time: 0846; Inserted by: Dr Nina; Type: Triple-lumen, Latex, Straight-tip; Balloon Size: Other (Comment) (15 mls in balloon); Urine Returned: Yes; Removal Date: 10/07/23; Removal Time: 1906; Removal Reason: Removal date unknown/not present on admission 06/20/22 0846 by Nguyen Coronado RN 10/07/23 190 by Eva Barboza RN Peripheral IV Placement Date: 10/07/23; Placement Time: 154; Catheter Size: 20 G; Orientation: Left; Location: Antecubital; Site Prep: Chlorhexidine; Technique: Anatomical landmarks; Inserted by: Darcy RIDER; Insertion Attempts: 1; Patient Tolerance: Tolerated well; Removal Date: 04/12/24; Removal Time: 050; Removal Reason: Not present on admission 10/07/23 1543 by Darcy Sanchez RN 04/12/24 0503 by Peter Blandon RN ETT Placement Date: 10/07/23; Placement Time: 1827 (created via procedure documentation); Mask Ventilation: 0; Technique: Video laryngoscopy; Type: ETT - single; Single Lumen Tube Size: 7 mm; Cuffed: Yes; Laryngoscope: Ann; Blade Size: 4; Location: Oral; Insertion Attempts: 1; Placement Verification: Auscultation, Capnometry; Airway Comment: Smooth, atraumatic intubation; Removal Date: 10/07/23; Removal Time: 192710/07/231827 by Kole Marley CRNA 10/07/231927 by Kole Marley CRNA RETIRED Surgical Site 10/07/23; 1907; Abdomen; 08/11/24 (Retired LDA, Removed/Completed by [facility] with LDA Utility); 1213 (Retired LDA, Removed/Completed by [facility] with LDA Utility) 10/07/23 1907 by Eva [...] on file 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 ON CAR SUPERVISOR Gender Identity Not on file Sexual Orientation Not on file documented as of this encounter OR Notes * Anesthesia Postprocedure Evaluation - Kole Marley CRNA - 10/07/2023 7:50 PM CST Patient: Jaden De La Torre Procedure Summary Date: 10/07/23 Room / Location: [address] OPERATING ROOM Anesthesia Start: 1807 Anesthesia Stop: 1936 Procedure: LAPAROSCOPIC APPENDECTOMY (Abdomen) Diagnosis: (Acute appendicitis) Providers: Ramos Fraga MD Responsible Provider: Aliya Berumen MD Anesthesia Type: general ASA Status: 2 - Emergent Anesthesia Type: general Last vitals BP 132/63 Pulse 69 Temp 36.5 ??C (97.7 ??F) (Temporal) Resp 25 SpO2 99% Anesthesia Post Evaluation Patient location during evaluation: PACU Patient participation: complete - patient participated Level of consciousness: fully awake Pain management: satisfactory to patient Airway patency: adequate and patent Evidence of recall: no Cardiovascular status: acceptable Respiratory status: acceptable and room air Hydration status: acceptable Pt is: normothermic Nausea/Vomiting status: none No notable events documented. CAR SUPERVISOR * Anesthesia Procedure Notes - Kole Marley CRNA - 10/07/2023 6:27 PM ON CAR SUPERVISOR Associated Order(s): Airway Airway Patient location: OR Urgency: elective Indications for airway management: anesthesia and airway protection Difficult airway: no Staff: Placed by: AIRCREWMAN: Kole Marley CRNA Emergent airway documentation: Risks and benefits discussed: yes Consent obtained: yes Consent given by: patient Airway prep: Preoxygenated: yes Patient position: sniffing Mask difficulty assessment: 0 - not attempted Spontaneous ventilation during airway: absent Sedation level during airway: GA Final airway details: Final airway type: endotracheal airway Tube type: ETT ETT size: 7.0 mm Cuffed: yes Technique used for successful ETT placement: video laryngoscopy Devices/Methods used in placement: intubating stylet Insertion site: oral Blade type: Ann Video blade type: Leal Blade size: 4 Cormack-Lehane (video): grade I - full view of glottis Cuff volume: 7 mL Cuff inflated with: air ETT to lips: 23 cm Placement verified by: auscultation and CO2 detection Airway secured with: silk tape Number of attempts: 1 Planned trial extubation: yes Additional comments: Smooth, atraumatic intubation CAR SUPERVISOR * Anesthesia Preprocedure Evaluation - Aliya Berumen MD - 10/07/2023 4:03 PM CST Images from the original note were not included. Anesthesia Evaluation Jaden De La Torre is a 53 y.o. male Procedure(s): LAPAROSCOPIC APPENDECTOMY * No Diagnosis Codes entered * HISTORY Past Medical History Information obtained from: patient and chart. 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 Situational anxiety Post-COVID chronic cough Vitamin D deficiency Benign prostatic hyperplasia with weak urinary stream Encounter for wellness examination Right groin pain Neck pain Intermittent palpitations Encounter for follow-up examination after completed treatment for conditions other than malignant neoplasm Right lower quadrant abdominal pain Past Medical History: Diagnosis Date Anxiety disorder Anxiety Depression Depression Enlarged prostate Erectile dysfunction Generalized abdominal pain 06/27/2019 GERD (gastroesophageal reflux disease) Hemorrhoids Hyperlipidemia Hypertension Hypoglycemia Palpitation Rectal pain 05/25/2020 Added automatically from request for surgery [id number] Sleep apnea Urinary retention Past Surgical History: Procedure Laterality Date BAND HEMORRHOIDECTOMY BIOPSY ABDOMEN RETROPERITONEAL N/A 02/06/2019 CARPAL TUNNEL RELEASE Bilateral COLONOSCOPY 08/26/2020 1st KNEE ARTHROSCOPY Right 02/2006 rt ac resection PROSTATE SURGERY SHOULDER SURGERY Right No Known Allergies Taking? Last Dose Start Date End Date Provider buPROPion XL (WELLBUTRIN XL) 300 mg 24 hr tablet -- 09/09/23 -- La Kearney MD TAKE 1 TABLET EVERY MORNING lisinopriL (PRINIVIL,ZESTRIL) 5 mg tablet -- 09/09/23 -- La Kearney MD TAKE 1 TABLET NIGHTLY metoprolol tartrate (LOPRESSOR) 25 mg immediate release tablet -- 07/29/23 -- Berenice South MD Take 0.5 tablets (12.5 mg total) by mouth once as needed (palpitations) for up to 10 doses metoprolol XL (TOPROL-XL) 25 mg extended release tablet -- 08/30/23 -- La Urbina MD Take 1 tablet (25 mg total) by mouth nightly Patient not taking: Reported on 10/07/2023 metoprolol XL (TOPROL-XL) 50 mg extended release tablet -- 09/09/23 -- ProviderElbert MD pramipexole (MIRAPEX) 1.5 mg tablet -- 06/10/23 -- La Kearney MD Take 1 tablet (1.5 mg total) by mouth 3 (three) times a day pravastatin (PRAVACHOL) 40 mg tablet -- 10/01/23 -- La Kearney MD Take 1 tablet (40 mg total) by mouth daily tadalafiL (CIALIS) 20 mg tablet -- 01/29/23 01/29/24 Shaggy Jang MD Take 1 tablet (20 mg total) by mouth daily as needed for erectile dysfunction Max 1 daily. Current Facility-Administered Medications: piperacillin-tazobactam (ZOSYN) 3.375 gram/65 mL in sodium chloride 0.9% (premix) 3.375 g, 3.375 g,intravenous, Q6H KATHIA sodium chloride 0.9% infusion, 125 mL/hr, intravenous, Continuous Current Outpatient Medications: buPROPion XL (WELLBUTRIN XL) 300 mg 24 hr tablet lisinopriL (PRINIVIL,ZESTRIL) 5 mg tablet metoprolol tartrate (LOPRESSOR) 25 mg immediate release tablet metoprolol XL (TOPROL-XL) 25 mg extended release tablet metoprolol XL (TOPROL-XL) 50 mg extended release tablet pramipexole (MIRAPEX) 1.5 mg tablet pravastatin (PRAVACHOL) 40 mg tablet tadalafiL (CIALIS) 20 mg tablet Social History Tobacco Use Smoking Status Never Smokeless Tobacco Former Types: Chew Quit date: 08/2018 Tobacco Comments chews, not interested in counseling Alcohol Use: Not At Risk (10/07/2023) AUDIT-C Frequency of Alcohol Consumption: 2-4 times a month Average Number of Drinks: 1 or 2 Frequency of Binge Drinking: Never Substance and Sexual Activity Drug Use Yes Types: Alcohol Comment: 18 pack beer once weekly Family History Problem Relation Age of Onset Cancer Mother lung Hypertension Mother Leukemia Mother Cancer Father lung Throat cancer Father Vitals: 10/07/23 1530 BP: 135/74 Pulse: 76 Resp: 18 Temp: 36.4 ??C (97.5 ??F) SpO2: 99% PT: No results found for requested labs within last 30 days. INR: No results found for requested labs within last 30 days. APTT: No results found for requested labs within last 30 days. Hgb A1C: No results found for requested labs within last 30 days. CBC RBC: 10/07/2023: 4.58 M/cumm RDW: No results found for requested labs within last 30 days. MCHC: 10/07/2023: 33.9 g/dL MCH: 10/07/2023: 31.7 pg MCV: 10/07/2023: 93.4 fL Hct: 10/07/2023: 42.8 % Hgb: 10/07/2023: 14.5 g/dL WBC: 10/07/2023: 9.3 K/cumm MPV: 10/07/2023: 10.0 fL Platelets: 10/07/2023: 216 K/cumm RDW CV: 10/07/2023: 12.2 % RDW Sd: 10/07/2023: 42.3 fL BMP Glucose: No results found for requested labs within last 30 days. Calcium: No results found for requested labs within last 30 days. Sodium: No results found for requested labs within last 30 days. Potassium: No results found for requested labs within last 30 days. CO2: No results found for requested labs within last 30 days. Chloride: No results found for requested labs within last 30 days. BUN: No results found for requested labs within last 30 days. Creatinine: No results found for requested labs within last 30 days. DOS Physical Exam Medical history, medications, and allergies reviewed. Attestation: This PAT evaluation 10/07/2023. Airway Exam: Mallampati: II Cervical ROM: FROM TM distance: >4 Cardiovascular Exam: Rate: regular Rhythm: regular Pulmonary Exam: LCTA, bilat EENT Exam: trachea midline Dental Exam: Appears intact Current state: Patient's current state is cooperative. Anesthesia Plan ASA 2- emergent My patient is approved for the Anesthesia Controlled Medication protocol when under care of a AIRCREWMAN Planned anesthesia: General Team communication plan: oral ET tube Induction: Induction: intravenous. Postoperative Plan: Postoperative administration opioids intended. No postoperative mechanical ventilation intended. Patient's planned disposition post procedure is Floor. Informed Consent: Discussed plan with attending and AIRCREWMAN. Anesthesia plan and risks discussed with patient. Consent and Attending signature: I and/or my designee have discussed the anesthesia plan, benefits, possible alternatives, parental presence at time of induction (if indicated), and clinically relevant risks that may include dental injury, unintentional awareness, and/or other complications. The patient and/or parent/legal guardian understand, and agree to proceed. All questions answered. CAR SUPERVISOR documented in this encounter Plan of Treatment Not on file documented as of this encounter Procedures Procedure Name Priority Date/Time Associated Diagnosis Comments MN AN ELECTIVE ENDOTRACHEAL AIRWAY Routine 10/07/2023 6:27 PM ON CAR SUPERVISOR documented in this encounter Results * MN AN ELECTIVE ENDOTRACHEAL AIRWAY (10/07/2023 6:27 PM ON CAR SUPERVISOR) Narrative Kole Marley CRNA - 10/07/2023 6:27 PM ON CAR SUPERVISOR Kole Marley CRNA ? 10/07/2023 ??6:28 PM Airway Patient location: OR Urgency: elective Indications for airway management: anesthesia and airway protection Difficult airway: no Staff: Placed by: BRAYDON: Kole Marley CRNA Emergent airway documentation: Risks and benefits discussed: yes Consent obtained: yes Consent given by: patient Airway prep: Preoxygenated: yes Patient position: sniffing Mask difficulty assessment: 0 - not attempted Spontaneous ventilation during airway: absent Sedation level during airway: GA Final airway details: Final airway type: endotracheal airway Tube type: ETT ETT size: 7.0 mm Cuffed: yes Technique used for successful ETT placement: video laryngoscopy Devices/Methods used in placement: intubating stylet Insertion site: oral Blade type: Ann Video blade type: Leal Blade size: 4 Cormack-Lehane (video): grade I - full view of glottis Cuff volume: 7 mL Cuff inflated with: air ETT to lips: 23 cm Placement verified by: auscultation and CO2 detection Airway secured with: silk tape Number of attempts: 1 Planned trial extubation: yes Additional comments: Smooth, atraumatic intubation Aliya Berumen MD ANESTHESIA ORDERABLES Fi nal Result documented in this encounter Visit Diagnoses Not on filedocumented in this encounter Administered Medications Inactive Administered Medications - up to 3 most recent administrations Medication Order MAR Action Action Date Dose Rate Site cefOXitin (MEFOXITIN) 2,000 mg/20 mL in sterile water (premix) 2,000 mg 2,000 mg, intravenous, at 400 mL/hr, Administer over 3 Minutes, Once, On Sat10/07/23 at 1745, For 1 dose, Intra-Op, Indications: Prophylaxis, SurgicalIndications:Prophylaxis, Surgical Given 10/07/2023 6:25 PM ON CAR SUPERVISOR 2,000 mg dexAMETHasone (DECADRON) 4 mg/mL injection intravenous, Administer over 2 Minutes, As needed, Starting on Sat10/07/23 at 1825, Anesthesia Intra-op Given 10/07/2023 6:25 PM ON CAR SUPERVISOR 10 mg fentaNYL (SUBLIMAZE) preservative free injection intravenous, As needed, Starting on Sat10/07/23 at 1818, Anesthesia Intra-op Given 10/07/2023 7:31 PM ON CAR SUPERVISOR 50 mcg Given 10/07/2023 6:18 PM ON CAR SUPERVISOR 50 mcg ketamine (KETALAR) 50 mg/5 mL (10 mg/mL) in sodium chloride 0.9% (premix) intravenous, As needed, Starting on Sat10/07/23 at 1818, Anesthesia Intra-op Given 10/07/2023 6:18 PM ON CAR SUPERVISOR 50 mg Lactated Ringer's (LR) infusion 30 mL/hr, intravenous, Continuous, Starting on Sat10/07/23 at 1745, Pre-Op Rate/Dose Verify 10/07/2023 6:08 PM ON CAR SUPERVISOR 30 mL/hr New Bag 10/07/2023 5:17 PM ON CAR SUPERVISOR 30 mL/hr 30 mL/hr lidocaine (XYLOCAINE) 20 mg/mL (2 %) preservative free injection intravenous, As needed, Starting on Sat10/07/23 at 1818, Anesthesia Intra-op Given 10/07/2023 6:18 PM ON CAR SUPERVISOR 60 mg midazolam (VERSED) 1 mg/mL preservative free injection intravenous, Administer over 2 Minutes, As needed, Starting on Sat10/07/23 at 1806, Anesthesia Intra-op Given 10/07/2023 6:06 PM ON CAR SUPERVISOR 2 mg ondansetron (ZOFRAN) injection intravenous, Administer over 2 Minutes, As needed, Starting on Sat10/07/23 at 1825, Anesthesia Intra-op Given 10/07/2023 6:25 PM ON CAR SUPERVISOR 4 mg phenylephrine (MODE-SYNEPHRINE) injection intravenous, As needed, Starting on Sat10/07/23 at 1828, Anesthesia Intra-op Given 10/07/2023 6:28 PM ON CAR SUPERVISOR 100 mcg propofoL (DIPRIVAN) 10 mg/mL IV intravenous, As needed, Starting on Sat10/07/23 at 1818, Anesthesia Intra-op New Bag 10/07/2023 6:18 PM ON CAR SUPERVISOR 200 mg rocuronium (ZEMURON) injection intravenous, As needed, Starting on Sat10/07/23 at 1821, Anesthesia Intra-op Given 10/07/2023 6:27 PM ON CAR SUPERVISOR 10 mg Given 10/07/2023 6:21 PM ON CAR SUPERVISOR 40 mg succinylcholine (ANECTINE) injection intravenous, As needed, Starting on Sat10/07/23 at 1818, Anesthesia Intra-op Given 10/07/2023 6:18 PM ON CAR SUPERVISOR 140 mg sugammadex (BRIDION) 100 mg/mL intravenous solution intravenous, As needed, Starting on Sat10/07/23 at 1908, Anesthesia Intra-op Given 10/07/2023 7:08 PM ON CAR SUPERVISOR 200 mg documented in this encounter Care Teams Gas Well Pumper Relationship Specialty Start Date End Date La Kearney MD [address] [place] [address] DR LUCAS [address] [place] [id number] PCP - General Family Medicine 10/02/22 Mariaelena Zaidi MD Consulting Physician Sleep Medicine 07/12/21 documented as of this encounter
--- OUTSIDE RECORDS SUMMARY | 2024-09-17 12:48 | XMS_ITS | Encounter Summary ---
Author Organization [facility] Healthcare Address [address] [place] [address] Care Team Providers Care Manager Educational Name Role Phone Mariaelena Zaidi MD Unavailable La Núñez MD Primary Care Provide r Reason for Referral * Diagnostic Imaging (Routine) - Closed Specialty Diagnoses / Procedures Referred By Zaida camacho Referred To Contact Radiology Diagnoses RLQ abdominal pain Procedures CT Abdomen Pelvis WO Contrast La Núñez MD [address] [place] [id number] Phone: tel: fax: [address] [phone] Referral ID Status Reason Start Date Expiration Date Visits Re quested Visits Authorized [id number] Closed 10/07/2023 11/05/2024 1 1 [employer] Reason for Visit * Auth/Cert (Routine) Specialty Diagnoses / Procedures Referred By Zaida camacho Referred To Contact Diagnoses Acute appendicitis with localized peritonitis, without perforation, abscess, or gangrene Status post appendectomy Acute appendicitis Procedures N/A Referral ID Status Reason Start Date Expiration Date Visits Re quested Visits Authorized [id number] 1 1 Encounter Details Date Type Department Care Team (Latest Contact Info) Description 10/07/2023 2:08 PM [employer] - 10/07/2023 11:59 PM [employer] Hospital Encounter [facility] [address] [place] [phone] RLQ abdominal pain Discharge Disposition: Discharge to home or [...] on file 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 [employer] Gender Identity Not on file Sexual Orientation Not on file documented as of this encounter Medications at Time of Discharge tadalafiL (CIALIS) 20 mg tabletIndications:E rectile dysfunction due to arterial insufficiency Take 1 tablet (20 mg total) by mouth daily as needed for erectile dysfunction Max 1 daily. 20 tablet 3 01/29/2023 HYDROcodone-acetami nophen (NORCO) 5-325 mg per tabletIndications:P ain Take 1 tablet by mouth every 6 (six) hours as needed for pain for up to 7 days 28 tablet 10/08/2023 10/15/19 24 ondansetron (ZOFRAN) 4 mg tablet Take 1 tablet (4 mg total) by mouth every 6 (six) hours as needed for nausea or vomiting for up to 14 days 30 tablet 10/08/2023 10/22/19 24 buPROPion XL (WELLBUTRIN XL) 300 mg 24 hr tablet TAKE 1 TABLET EVERY MORNING 100 tablet 09/09/2023 12/09/19 24 docusate sodium (COLACE) 100 mg capsuleIndications: [...] (MIRAPEX) 1.5 mg tabletIndications:R estless legs syndrome Take 1 tablet (1.5 mg total) by mouth 3 (three) times a day 90 tablet 1 06/10/2023 12/04/19 24 pravastatin (PRAVACHOL) 40 mg tabletIndications:H yperlipidemia, [...] Date/Time Associated Diagnosis Comments CT ABDOMEN PELVIS WO CONTRAST Schedule MASON, Read MASON (Appt Today, Awaiting Results) 10/07/2023 2:40 PM [employer] RLQ abdominal pain documented in this encounter Results * CT Abdomen Pelvis WO Contrast (10/07/2023 2:40 PM [employer]) Anatomical Region Laterality Modality Body N/A Computed Tomogra phy 10/07/2023 2:50 PM [employer] Narrative 10/07/2023 3:06 PM [employer] EXAM DESCRIPTION: ?? CT ABDOMEN PELVIS WO CONTRAST REASON FOR STUDY: ?? RLQ abdominal pain evaluate for appendicitis ?? Sharp RLQ pain started this morning. ? TECHNIQUE: CT scan of the abdomen and pelvis performed without intravenous and without ??oral contrast using helical scanning technique. Reconstructed coronal and sagittal MPR images reviewed. All images stored on PACS. Automated exposure control was used as a dose optimization technique for this examination. COMPARISON: 05/09/2022. REFERENCE: Per ACR white paper recommendations, unless otherwise specified no follow-up imaging is recommended for incidental renal and adrenal lesions per consensus recommendations based on imaging criteria. Further lab evaluation could be pursued based on clinical findings. FINDINGS: The sensitivity for detection of visceral lesions is diminished without the use of intravenous contrast. LOWER CHEST: ?? Mild bibasilar atelectasis. ??No pleural effusion. LIVER: ?? No focal hepatic lesion. ??The liver size and contour are normal. GALLBLADDER: ?? No gallstones or inflammatory change. BILE DUCTS: ?? No biliary ductal dilation. SPLEEN: ?? The spleen is enlarged at 14.8 cm. PANCREAS: ?? No pancreatic mass or inflammatory change. ADRENALS: ?? Normal KIDNEYS/URINARY TRACT: ?? No right renal calculus. ??No right ureteral calculus. No right hydronephrosis or hydroureter. ??The right ureter does interface with marked inflammatory change in the right lower quadrant. ??There is a left renal calculus 0.6 cm in the midpole (image 62). ??No ureteral calculus. ??The urinary bladder is unremarkable with a minimal amount of fluid. ?? GI: ?? Normal course and caliber of the colon. ??There is evidence of an acute appendicitis. ??The appendix is dilated and inflamed measuring 1.6 cm in diameter, and there is an appendicolith. ??There is adjacent hazy inflammatory change. ??No organized abscess. ??There is several lymph nodes in the right lower quadrant likely reactive. ??The largest is 1.1 cm, additional lymph node 0.9 cm. PERITONEUM: ?? No ascites or free air is seen. ??There is no mesenteric mass or lymphadenopathy. ??Additional mesenteric lymph node 1.1 x 1.2 cm. RETROPERITONEUM: ?? Several retroperitoneal lymph nodes, for example large conglomeration of lymph nodes retroaortic 5.0 x 2.0 cm (image 82). REPRODUCTIVE: ?? No significant abnormalities are seen. VASCULATURE: ?? Abdominal aorta is nonaneurysmal. MUSCULOSKELETAL: ?? Bone windows demonstrate no acute or aggressive osseous abnormality. OTHER: ?? No other abnormality. IMPRESSION: Acute appendicitis. No evidence of perforation or abscess. Prominent right lower quadrant mesenteric lymph nodes which are nonspecific but may be reactive. ??Additional enlarged retroperitoneal lymph node. ??These are nonspecific, clinical correlation is recommended, consider a short-term three-month ultrasound follow-up, if the lymphadenopathy is persistent, further workup with be suggested. ??Please ensure normal PSA level. ??If lymphadenopathy persists, could consider a PET-CT. Splenomegaly. Nonobstructing 0.6 cm left renal calculus. Important findings were discussed with nurse Connell in the office of Dr. NÚÑEZ by Dr. Almaguer at approximately 3 p.m. central time 10/07/2023. THIS IS AN ELECTRONICALLY VERIFIED FINAL REPORT 10/07/2023 3:06 PM - Electronically signed by ??Ziggy Almaguer M.D. CH: D: ??10/07/2023 3:06 PM T: ??10/07/2023 3:06 PM Report ID: [id number] Reading Location: ??[id number] Procedure Note Ziggy Almaguer Jr., MD - 10/07/2023 EXAM DESCRIPTION: CT ABDOMEN PELVIS WO CONTRAST REASON FOR STUDY: RLQ abdominal pain evaluate for appendicitis Sharp RLQ pain started this morning. TECHNIQUE: CT scan of the abdomen and pelvis performed without intravenousand without oral contrast using helical scanning technique. Reconstructed coronal and sagittal MPR images reviewed. All images stored on PACS.Automated exposure control was used as a dose optimization technique for this examination. COMPARISON: 05/09/2022. REFERENCE: Per ACR white paper recommendations, unless otherwise specifiedno follow-up imaging is recommended for incidental renal and adrenal lesionsper consensus recommendations based on imaging criteria. Further labevaluation could be pursued based on clinical findings. FINDINGS: The sensitivity for detection of visceral lesions is diminished withoutthe use of intravenous contrast. LOWER CHEST: Mild bibasilar atelectasis. No pleural effusion. LIVER: No focal hepatic lesion. The liver size and contour are normal. GALLBLADDER: No gallstones or inflammatory change. BILE DUCTS: No biliary ductal dilation. SPLEEN: The spleen is enlarged at 14.8 cm. PANCREAS: No pancreatic mass or inflammatory change. ADRENALS: Normal KIDNEYS/URINARY TRACT: No right renal calculus. No right ureteralcalculus. No right hydronephrosis or hydroureter. The right ureter does interfacewith marked inflammatory change in the right lower quadrant. There is a leftrenal calculus 0.6 cm in the midpole (image 62). No ureteral calculus. Theurinary bladder is unremarkable with a minimal amount of fluid. GI: Normal course and caliber of the colon. There is evidence of anacute appendicitis. The appendix is dilated and inflamed measuring 1.6 cm in diameter, and there is an appendicolith. There is adjacent hazyinflammatory change. No organized abscess. There is several lymph nodes in the right lower quadrant likely reactive. The largest is 1.1 cm, additional lymphnode 0.9 cm. PERITONEUM: No ascites or free air is seen. There is no mesenteric massor lymphadenopathy. Additional mesenteric lymph node 1.1 x 1.2 cm. RETROPERITONEUM: Several retroperitoneal lymph nodes, for example large conglomeration of lymph nodes retroaortic 5.0 x 2.0 cm (image 82). REPRODUCTIVE: No significant abnormalities are seen. VASCULATURE: Abdominal aorta is nonaneurysmal. MUSCULOSKELETAL: Bone windows demonstrate no acute or aggressive osseous abnormality. OTHER: No other abnormality. IMPRESSION: Acute appendicitis. No evidence of perforation or abscess. Prominent right lower quadrant mesenteric lymph nodes which arenonspecific but may be reactive. Additional enlarged retroperitoneal lymph node.These are nonspecific, clinical correlation is recommended, consider ashort-term three-month ultrasound follow-up, if the lymphadenopathy is persistent, further workup with be suggested. Please ensure normal PSA level. If lymphadenopathy persists, could consider a PET-CT. Splenomegaly. Nonobstructing 0.6 cm left renal calculus. Important findings were discussed with nurse Connell in the office of Dr. NÚÑEZ by Dr. Almaguer at approximately 3 p.m. central time 10/07/2023. THIS IS AN ELECTRONICALLY VERIFIED FINAL REPORT 10/07/2023 3:06 PM - Electronically signed by Ziggy Almaguer M.D. CH: SWETHA Report ID: [id number] Reading Location: [place] [address] La Núñez MD IMG CT PROCEDURES Fin al Result documented in this encounter Visit Diagnoses Diagnosis RLQ abdominal pain Abdominal pain, right lower quadrant documented in this encounter Care Teams Manager Educational Relationship Specialty Start Date End Date La Núñez MD [address] [place] [address] [address] PCP - General Family Medicine 10/02/22 Mariaelena Zaidi MD Consulting Physician Sleep Medicine 07/12/21 documented as of this encounter
--- OUTSIDE RECORDS SUMMARY | 2024-09-17 12:48 | XMS_ITS | Encounter Summary ---
Author Organization [facility] Healthcare Address [address] [place] [address] Care Team Providers Care Digital Account Executive Name Role Phone Mariaelena Zaidi MD Unavailable La Núñez MD Primary Care Provide r Reason for Visit * Reason Comments Abdominal Pain * Auth/Cert (Routine) Specialty Diagnoses / Procedures Referred By Contac t Referred To Contact Diagnoses Acute appendicitis with localized peritonitis, without perforation, abscess, or gangrene Status post appendectomy Acute appendicitis Procedures N/A Referral ID Status Reason Start Date Expiration Date Visits Re quested Visits Authorized [id number] 1 1 Encounter Details Date Type Department Care Team (Late st Contact Info) Description 10/07/2023 3:31 PM CHILD LIFE THERAPIST - 10/08/2023 2:48 PM CHILD LIFE THERAPIST Emergency [facility] Surgery Care [address] [place] [address] Sukhwinder Sanchez MD [address] [place] [address] Ramos Fraga MD [address] [place] [address] Acute appendicitis with localized peritonitis, without perforation, abscess, or gangrene (Primary Dx); Acute appendicitis, unspecified acute appendicitis type Discharge Disposition: Discharge to home or self [...] on file 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 CHILD LIFE THERAPIST Gender Identity Not on file Sexual Orientation Not on file documented as of this encounter Last Filed Vital Signs Vital Sign Reading Time Taken Comments Blood Pressure 110/66 10/08/2023 11:11 AM CHILD LIFE THERAPIST Pulse 77 10/08/2023 11:11 AM CHILD LIFE THERAPIST Temperature 36.1 ??C (97 ??F) 10/08/2023 11:11 AM CHILD LIFE THERAPIST Respiratory Rate 16 10/08/2023 11:11 AM CHILD LIFE THERAPIST Oxygen Saturation 94% 10/08/2023 11:11 AM CHILD LIFE THERAPIST Inhaled Oxygen Concentration - - Weight 124.7 kg (275 lb) 10/07/2023 8:17 PM CHILD LIFE THERAPIST Height 188 cm (6' 2 ) 10/07/2023 8:17 PM CHILD LIFE THERAPIST Body Mass Index 35.31 10/07/2023 8:17 PM CHILD LIFE THERAPIST documented in this encounter Discharge Summaries * Charissa Mcdonald NP - 10/08/2023 1:30 PM CST Inpatient Discharge Summary BRIEF OVERVIEW Admitting Provider: Ramos Fraga MD Discharge Provider: Ramos Fraga MD Primary Care Physician at Discharge: La Núñez MD [phone] Admission Date: 10/07/2023 Discharge Date: 10/08/2023 Admission Location: [facility] Problems/Diagnoses: Principal Problem: Status post appendectomy Active Problems: Acute appendicitis with localized peritonitis, without perforation, abscess, or gangrene Acute appendicitis Resolved Problems: No resolved hospital problems. DETAILS OF HOSPITAL STAY Presenting Problem/History of Present Illness: The patient is a 53-year-old male who presented to the ER with a 1 day history of abdominal pain. CT scan was consistent with appendicitis. He was set up for appendectomy. Hospital Course: Pt was taken to OR from ER on 10/07/2023 and laparoscopic appendectomy was completed. During surgeryhe was noted to have an inflamed nodular and firm appendix and a CELIO drain was left to monitor healing. He was admitted to the [facility] and monitored. He progressed with diet and nausea/vomiting and pain were controlled. He was doing well and discharged home POD # 1 Active Issues Requiring Follow-up: Test Results Pending at Discharge: Pending Labs Order Current Status Surgical pathology In process Urine culture Urine In process Operative Procedures Performed: Procedure(s): LAPAROSCOPIC APPENDECTOMY Other Procedures: Pertinent Test Results: Discharge Details Physical Exam at Discharge: Discharge Condition: good Pulse: 77 Resp: 16 BP: 110/66 Temp: 36.1 ??C (97 ??F) Weight: 124.7 kg (275 lb) Pertinent Exam Findings at Discharge: Discharge Disposition: Discharge to home or self care Code Status at Discharge: full code Discharge Instructions: Other Instructions Special Instructions Discharge Instructions: 1. No driving while on narcotics 2. No heavy lifting greater than a milk jug until follow up 3. Ice to operative site, on 15 minutes off 15 minutes as needed for pain 4. May shower starting 10/08/2023, No tub baths or soaking of incisions 5. Take stool softner while on narcotics to prevent constipation 6. Call for worsening pain, erythema, drainage or any other concerns about your incisions or post operative course 7. Follow up in 1 week, Please call office for appointment [phone] 8. Diet, until follow up: regular 9. Strip and record your CELIO drain output daily Discharge Medications: Current Medications TAKE these medications buPROPion XL 300 mg 24 hr tablet TAKE 1 TABLET EVERY MORNING Commonly known as: WELLBUTRIN XL docusate sodium 100 mg capsule Take 1 capsule (100 mg total) by mouth 2 (two) times a day for 14 days For: constipation Commonly known as: COLACE HYDROcodone-acetaminophen 5-325 mg per tablet Take 1 tablet by mouth every 6 (six) hours as needed for pain for up to 7 days For: pain Commonly known as: NORCO lisinopriL 5 mg tablet TAKE 1 TABLET NIGHTLY Commonly known as: PRINIVIL,ZESTRIL metoprolol XL 50 mg extended release tablet Take 1 tablet (50 mg total) by mouth nightly Commonly known as: TOPROL-XL ondansetron 4 mg tablet Take 1 tablet (4 mg total) by mouth every 6 (six) hours as needed for nausea or vomiting for up to 14 days Commonly known as: ZOFRAN pramipexole 1.5 mg tablet Take 1 tablet (1.5 mg total) by mouth 3 (three) times a day Commonly known as: MIRAPEX pravastatin 40 mg tablet Take 1 tablet (40 mg total) by mouth daily Commonly known as: PRAVACHOL tadalafiL 20 mg tablet Take 1 tablet (20 mg total) by mouth daily as needed for erectile dysfunction Max 1 daily. Commonly known as: UJSTINAS Outpatient Follow-Up: Future Appointments Date Time Provider Department Center 12/11/2023 8:30 AM La Núñez MD PCP [facility] Cosigned by Ramos Fraga MD at 10/08/2023 4:13 PM CHILD LIFE THERAPIST D LIFE THERAPIST D LIFE THERAPIST documented in this encounter Discharge Instructions * Discharge Instructions* Mireille Moura RN - 10/08/2023 2:01 PM CHILD LIFE THERAPIST THANK YOU for choosing our team to provide your health care. Your HEALTH AND SAFETY are important to us. We hope you feel your care on [facility] is ALWAYS EXCELLENT! Please call [facility] at [phone] if you have any questions regarding your care. Wishing you continued improvement during your recovery. Your Surgical Care Unit Team Mireille Camara Dana, Denise, Radha, Maggie, Vira, Lily, Nicole, RhiannonDory Lamika, Judy, Lindsey, Suzie, Jocelyn, Rochelle, Simona, Bonnie, Angie, Melanie, Sweetie, Dayanara Christopher. D LIFE THERAPIST * Attachments The following attachments cannot be sent through Care Everywhere. * Appendicitis (Discharge Care) (Citizen [place]) * Obed-Malhotra Drain Care (Discharge Care) (Citizen [place]) * Laxative, Stool Softeners (By mouth) ([place]izen [place]) * Ondansetron (By mouth, Into the mouth) (Citizen [place]) * Hydrocodone/Acetaminophen (By mouth) (Citizen [place]) documented in this encounter Medications at Time [...] 12/27/19 24 documented as of this encounter Ordered Prescriptions Prescription Sig Dispense Quantity Refills Last Filled Start Date End Date ondansetron (ZOFRAN) 4 mg tablet Take 1 tablet (4 mg total) by mouth every 6 (six) hours as needed for nausea or vomiting for up to 14 days 30 tablet 10/08/2023 4 HYDROcodone-acetam inophen (NORCO) 5-325 mg per tabletIndications: Pain Take 1 tablet by mouth every 6 (six) hours as needed for pain for up to 7 days 28 tablet 10/08/2023 4 docusate sodium (COLACE) 100 mg capsuleIndications :constipation Take 1 capsule (100 mg total) by mouth 2 (two) times a day for 14 days 28 capsule 10/08/2023 4 documented in this encounter Discharge Disposition Disposition Code Departure Means Destination Comment s Discharge to home or self care documented in this encounter Progress Notes * Charissa Mcdonald NP - 10/08/2023 9:04 AM CST Progress Note Subjective: HPI: 53 y.o. POD # 1 S/P laparoscopic appendectomy No events overnight. Denies fever,cp,sob. He did have some nausea and vomited very early this am but did tolerate clear liquid diet this am. Pain is well controlled. 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 Objective: Vitals: 10/08/23 0712 BP: 112/67 Pulse: 73 Resp: 16 Temp: 36.2 ??C (97.1 ??F) SpO2: 94% Labs: Lab Results Component Value Date WBC 9.9 10/08/2023 HGB 13.5 10/08/2023 HCT 39.3 10/08/2023 LABPLAT 213 10/08/2023 RBC 4.18 (L) 10/08/2023 Lab Results Component Value Date SODIUM 133 (L) 10/08/2023 POTASSIUM 5.0 (H) 10/08/2023 CHLORIDE 101 10/08/2023 CO2 22 10/08/2023 ANIONGAP 11 10/08/2023 BUNSER 16 10/08/2023 CREATININE 1.11 10/08/2023 GLUCOSE 165 10/08/2023 CALCIUM 9.0 10/08/2023 I/O last 2 completed shifts: In: 2181 [P.O.:800; I.V.:1381] Out: 747 [Urine:300; Emesis/NG output:400; Drains:37; Blood:10] No intake/output data recorded. Physical Exam Constitutional: Appearance: Normal appearance. HENT: Head: Normocephalic and atraumatic. Nose: Nose normal. Mouth/Throat: Mouth: Mucous membranes are moist. Eyes: Pupils: Pupils are equal, round, and reactive to light. Cardiovascular: Rate and Rhythm: Normal rate and regular rhythm. Pulses: Normal pulses. Heart sounds: Normal heart sounds. Pulmonary: Effort: Pulmonary effort is normal. Breath sounds: Normal breath sounds. Abdominal: Palpations: Abdomen is soft. Tenderness: There is no abdominal tenderness. Musculoskeletal: General: Normal range of motion. Cervical back: Normal range of motion. Skin: General: Skin is warm and dry. Operative sites well approximated, with no erythema,no drainage, CELIO with serosanguinous Neurological: General: No focal deficit present. Mental Status: He is alert and oriented to person, place, and time. Psychiatric: Mood and Affect: Mood normal. Behavior: Behavior normal. Assessment/Plan POD # 1 S/P laparoscopic appendectomy Tolerating po - low fiber diet ordered OOB today with PT/OT IS encouraged Bowel regimen Pain controlled Disposition planning for home 10/08/2023 Cosigned by Ramos Fraga MD at 10/08/2023 6:51 PM CHILD LIFE THERAPIST D LIFE THERAPIST D LIFE THERAPIST * Barron Webber - 10/08/2023 8:23 AM CST Physical Therapy INITIAL EVALUATION PATIENT'S NAME:Jaden Clement :1970 AGE:53 y.o. TIME IN:827 TIME OUT:841 CURRENT DIAGNOSIS AND HOSPITAL COURSE: Abdominal pain. Status post laparoscopic appendectomy 10/07/23. Patient Active Problem List Diagnosis Restless legs [...] malignant neoplasm Right lower quadrant abdominal pain Status post appendectomy Acute appendicitis with localized peritonitis, without perforation, abscess, or gangrene Acute appendicitis Past Medical History: Diagnosis Date Anxiety disorder Anxiety Arrhythmia Depression Depression Enlarged prostate Erectile dysfunction Generalized abdominal pain 06/27/2019 GERD (gastroesophageal reflux disease) Hemorrhoids Hyperlipidemia Hypertension Hypoglycemia Palpitation Rectal pain 05/25/2020 Added automatically from request for surgery [id number] Sleep apnea Urinary retention Past Surgical History: Procedure Laterality Date BAND HEMORRHOIDECTOMY BIOPSY ABDOMEN RETROPERITONEAL N/A 02/06/2019 CARPAL TUNNEL RELEASE Bilateral COLONOSCOPY 08/26/2020 1st KNEE ARTHROSCOPY Right 02/2006 rt ac resection PROSTATE SURGERY SHOULDER SURGERY Right SUBJECTIVE LIVES WITH: LIVING ENVIRONMENT: House, 4 stairs to enter with a railing. Once inside everything is on one level PRIOR LEVEL OF FUNCTION: Independent with dressing, grooming, cooking, and cleaning. 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 CELIO, IV, and Lower extremity sequentials in place PAIN: Pre-therapy pain level: 3-12/17 Pain location: Left abdominal region Pain intervention: RN aware Post-therapy pain level/response to intervention: 3-4, pain unchanged with ambulation LE ASSESSMENTS: Right LE ROM: WFL Left LE ROM: WFL Right LE strength: 5/5 grossly Left LE strength: 5/5 grossly MOBILITY: Bed mobility: Independent supine to sit Transfers: Independent sit to stand and stand to sit Ambulation: Distance: 200 ft Assistive device: No assistive device Level of assist: Independent Deviations: Holding left abdominal region with left hand while walking Balance/Special Tests: Static sitting balance: Good Static standing balance: Good Dynamic standing balance: Good 6 CLICK: Basic Mobility - 6 Click How much difficulty does the patient have: Turning over in bed: None How much difficulty does the patient currently have: Sitting down and standing up from a chair witharms?: None How much difficulty does the patient have: Moving from lying on back to sitting on the side of the bed?: None How much difficulty does the patient have: Moving to and from a bed to a chair including wheelchair?: None How much help does the patient currently need: Walk in hospital room?: None How much help from another person does the patient currently need: Climbing 3-5 steps with a railing?: A little Total 6 Click Score (range 6-24): 23 APPEARANCE/POSTURE (end of session): Supine in bed with head elevated. CELIO and IV in place EDUCATION: Plan of care, importance of getting up and moving RESPONSE TO EDUCATION: Demonstrated understanding ASSESSMENT PROBLEM LIST: None BARRIERS TO LEARNING: None BARRIERS TO DISCHARGE: None REHAB POTENTIAL/PROGNOSIS: Good PLAN RECOMMENDATIONS: Home with family TREATMENT PLAN/INTERVENTIONS: None, patient is independent with mobility and reports no concerns. Discharge PT FREQUENCY: One time visit EQUIPMENT RECOMMENDATIONS: None If this is the last note, please consider this the discharge summary. Cosigned by Rosa M Grace PT at 10/08/2023 12:02 PM CHILD LIFE THERAPIST D LIFE THERAPIST D LIFE THERAPIST documented in this encounter H&P Notes * Ramos Fraga MD - 10/07/2023 4:00 PM CST Images from the original note were not included. Surgery Consult Subjective: Patient Name: Jaden Clement Date of Visit: 10/07/23 HPI: Jaden Clement is a 53 y.o. male presenting for surgical evaluation of abdominal pain. This pain began this morning. It was sharp in nature for which he called his primary care for. An outpatient CT scan was performed demonstrating acute appendicitis. He was therefore sent to the ED. Chief Complaint: Abdominal Pain Referred by: La Núñez MD Allergies as of 10/07/2023 (No Known Allergies) Current Facility-Administered Medications: sodium chloride 0.9% infusion, 125 mL/hr, intravenous, [...] mg tablet tadalafiL (CIALIS) 20 mg tablet Past Medical History: Diagnosis Date Anxiety disorder Anxiety Depression Depression Enlarged prostate Erectile dysfunction Generalized abdominal pain 06/27/2019 GERD (gastroesophageal reflux disease) Hemorrhoids Hyperlipidemia Hypertension Hypoglycemia Palpitation Rectal pain 05/25/2020 Added automatically from request for surgery [id number] Sleep apnea Urinary retention Past Surgical History: [...] activity: Defer Alcohol Use: Not At Risk (10/07/2023) AUDIT-C Frequency of Alcohol Consumption: 2-4 times a month Average Number of Drinks: 1 or 2 Frequency of Binge Drinking: Never Review of Systems Constitutional: Negative for activity change. HENT: Negative for hearing loss and sore throat. Eyes: Negative for visual disturbance. Respiratory: Negative for cough and shortness of breath. Cardiovascular: Negative for chest pain. Gastrointestinal: Positive for abdominal pain Genitourinary: Negative for dysuria. Musculoskeletal: Negative for back pain. Neurological: Negative for dizziness and syncope. Psychiatric/Behavioral: Negative for agitation and confusion. Labs: White blood cell count 9.3 Imaging: CT scan of the abdomen pelvis was personally reviewed. Appendix is dilated with periappendiceal fatstranding Objective: Vitals: 10/07/23 1530 BP: 135/74 Pulse: 76 Resp: 18 Temp: 36.4 ??C (97.5 ??F) SpO2: 99% Physical Exam Constitutional: The patient is oriented to person, place, and time. Head: Normocephalic and atraumatic. Eyes: Pupils are equal, round, and reactive to light. Neck: No thyromegaly present. Cardiovascular: Normal rate and regular rhythm. Pulmonary/Chest: Effort normal and breath sounds normal. Abdominal: Soft. Tender to palpation across the right lower quadrant Genitourinary: Rectum normal. Musculoskeletal: Normal range of motion. Neurological: alert and oriented to person, place, and time. Skin: Skin is warm and dry. Psychiatric: normal mood and affect. Assessment/Plan Acute appendicitis We will set the patient up for laparoscopic appendectomy. Risks and benefits have been explained. Postoperative restrictions and time needed off work discussed. He will be left NPO for the procedure.Consent to be obtained. IV antibiotics and IV pain control. All questions answered. Raoms Fraga MD 4:01 PM 10/07/2023 D LIFE THERAPIST documented in this encounter ED Notes * Sukhwinder Sanchez MD - 10/07/2023 3:46 PM CST HPI Chief Complaint Patient presents with ??? Abdominal Pain 53-year-old with a history of hypertension presents to ER with the complaints of right-sided abdominal pain which started this morning. Patient states that pain was quite intense called his primary doctor's office was initially evaluated and was sent for outpatient CT scan of the abdomen which revealed acute appendicitis. He denies any fever or chills. No history of nausea or vomiting. Patient History: Patient Active Problem List Diagnosis Date Noted ??? Right lower quadrant abdominal pain 10/07/2023 ??? Intermittent palpitations 08/08/2023 ??? Encounter for follow-up examination after completed treatment for conditions other than malignant neoplasm 08/08/2023 ??? Neck pain 06/07/2023 ??? Right groin pain 11/20/2022 ??? Encounter for wellness examination 10/02/2022 ??? Benign prostatic hyperplasia with weak urinary stream 06/12/2022 ??? Vitamin D deficiency 12/13/2021 ??? 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 Situational anxiety 07/27/2020 ??? Anger reaction 03/30/2019 ??? Benign ganglioneuroma of abdomen 03/30/2019 ??? Spondylosis of lumbar region without myelopathy or radiculopathy 03/30/2019 ??? Laryngopharyngeal reflux (LPR) 10/29/2018 ??? Hyperlipidemia 07/12/2016 ??? Essential hypertension 07/12/2016 ??? Restless legs syndrome 12/29/2013 ??? Insomnia 12/29/2013 ??? Obstructive sleep apnea syndrome 07/06/2013 Past Medical History: Diagnosis Date ??? Anxiety disorder Anxiety ??? Depression Depression ??? Enlarged prostate ??? Erectile dysfunction ??? Generalized abdominal pain 06/27/2019 ??? GERD (gastroesophageal reflux disease) ??? Hemorrhoids ??? Hyperlipidemia ??? Hypertension ??? Hypoglycemia ??? Palpitation ??? Rectal pain 05/25/2020 Added automatically from request for surgery [id number] ??? Sleep apnea ??? Urinary retention Past Surgical History: Procedure Laterality Date ??? BAND HEMORRHOIDECTOMY ??? BIOPSY ABDOMEN RETROPERITONEAL N/A 02/06/2019 ??? CARPAL TUNNEL RELEASE Bilateral ??? COLONOSCOPY 08/26/2020 1st ??? KNEE ARTHROSCOPY Right 02/2006 rt ac resection ??? PROSTATE SURGERY ??? SHOULDER SURGERY Right Family History Problem Relation Age of Onset ??? Cancer Mother lung ??? Hypertension Mother ??? Leukemia Mother ??? Cancer Father lung ??? Throat cancer Father Social History Tobacco Use ??? Smoking status: Never ??? Smokeless tobacco: Former Types: Chew Quit date: 08/2018 ??? Tobacco comments: chews, not interested in counseling Vaping Use ??? Vaping Use: Never used Substance and Sexual Activity ??? Alcohol use: Yes Comment: can of beer a month ??? Drug use: Yes Types: Alcohol Comment: 18 pack beer once weekly ??? Sexual activity: Defer Social History Social History Narrative ??? Not on file Review of Systems Review of Systems Constitutional: Negative. HENT: Negative. Eyes: Negative. Respiratory: Negative. Cardiovascular: Negative. Gastrointestinal: Positive for abdominal pain. Endocrine: Negative. Genitourinary: Negative. Musculoskeletal: Negative. Neurological: Negative. Hematological: Negative. Psychiatric/Behavioral: Negative. Physical Exam ED Triage Vitals [10/07/23 1530] Temp Pulse Resp BP SpO2 36.4 ??C (97.5 ??F) 76 18 135/74 99 % Temp src Heart Rate Source Patient Position BP Location FiO2 (%) -- -- -- -- -- Height Height Method Weight Weight Method 1.88 m (6' 2 ) Stated 124.7 kg (275 lb) -- Physical Exam Vitals and nursing note reviewed. Constitutional: Appearance: He is obese. Cardiovascular: Rate and Rhythm: Normal rate and regular rhythm. Pulmonary: Effort: Pulmonary effort is normal. Breath sounds: Normal breath sounds. Abdominal: Palpations: Abdomen is soft. Tenderness: There is abdominal tenderness in the right lower quadrant. Skin: General: Skin is warm. Neurological: General: No focal deficit present. Mental Status: He is alert. XAM DESCRIPTION: CT ABDOMEN PELVIS WO CONTRAST REASON [...] the use of intravenous contrast. LOWER CHEST: Mild bibasilar atelectasis. No pleural effusion. LIVER: No focal hepatic lesion. The liver size and contour are normal. GALLBLADDER: No gallstones or inflammatory change. BILE DUCTS: No biliary ductal dilation. SPLEEN: The spleen is enlarged at 14.8 cm. PANCREAS: No pancreatic mass or inflammatory change. ADRENALS: Normal KIDNEYS/URINARY TRACT: No right renal calculus. No right ureteral calculus. No right hydronephrosis or hydroureter. The right ureter does interface with marked inflammatory change in the right lower quadrant. There is a left renal calculus 0.6 cm in the midpole (image 62). No ureteral calculus. The urinary bladder is unremarkable with a minimal amount of fluid. GI: Normal course and caliber of the colon. There is evidence of an acute appendicitis. The appendix is dilated and inflamed measuring 1.6 cm in diameter, and there is an appendicolith. There is adjacent hazy inflammatory change. No organized abscess. There is several lymph nodes in the right lower quadrant likely reactive. The largest is 1.1 cm, additional lymph node 0.9 cm. PERITONEUM: No ascites or free air is seen. There is no mesenteric mass or lymphadenopathy. Additional mesenteric lymph node 1.1 x [...] which are nonspecific but may be reactive. Additional enlarged retroperitoneal lymph node. These are nonspecific, clinical correlation is recommended, consider [...] Electronically signed by Ziggy Almaguer M.D. [facility] Medical Decision Making Amount and/or Complexity of Data Reviewed Labs: ordered. Risk Prescription drug management. ED Course as of 10/07/23 1553 Time: 10/07 1551 Comment: Discussed with Dr Berrios will take him to [place]. By: Sukhwinder Sanchez MD Final diagnoses: Acute appendicitis with localized peritonitis, without perforation, abscess, or gangrene Sukhwinder Sanchez MD 10/07/23 1551 D LIFE THERAPIST * Tigist Coronado RN - 10/07/2023 3:29 PM CST Patient presents to the Ed with complaints of abdominal pain since this morning, went to his pcp and had a CT scan and sent here for appendicitis D LIFE THERAPIST documented in this encounter Miscellaneous Notes * Plan of Care - Lily Murray RN - 10/08/2023 2:43 PM CST Problem: Health Behavior: Goal: Understanding of discharge needs will improve Outcome: Completed Problem: Lack of Knowledge: Goal: Ability to develop a pain control plan will improve Outcome: Completed Goal: Ability to identify pain intensity on a pain scale and rate it consistently will improve Outcome: Completed Goal: Ability to notify healthcare provider of pain before it becomes unmanageable or unbearable will improve Outcome: Completed Problem: Medication: Goal: Satisfaction with pain management regimen will improve Outcome: Completed Problem: Sensory: Goal: Ability to identify factors that increase the pain will improve Outcome: Completed Goal: Pain level will decrease Outcome: Completed Goals: Clinical Goals for the Shift: VSS, pain control, good intake and output, and remain free from injury Summary: VSS, pain is well controled, has good intake and output, up independently, and has no other complaints D LIFE THERAPIST * Initial Assessments - Denice Clark RN - 10/08/2023 11:40 AM CST CM Low Risk Discharge Planning Assessment Note Primary Care Provider: La Núñez MD Preferred Pharmacy: [facility] - [place], [place] - [address] [facility] [address] [facility] [address] [facility] - [place], [place] - [address] [facility] [address] [facility] [address] [facility] - [place], [place] - [address] [facility] [address] Who does the patient or legal guardian want to receive education instruction and discharge plans for after care assistance?: Decline Living Arrangements: Spouse/significant other (10/07/232029) Additional Information and Discharge Plan: DC plan discussed with patient and dtr at bedside. Goal is to return home-lives with his (and dtr) and she will be his ride home. Independent. Has a cane for mobility but only uses prn. Has a CPAP and gets his supplies thru [employer]. Had a lap appy on10/07. Barrier to dc is recovery after surgery. No home needs noted at this time. Deniec Clark RN Phone Number: D LIFE THERAPIST * Plan of Care - Chayito Horta RN - 10/08/2023 2:23 AM CST Problem: Health Behavior: Goal: Understanding of discharge needs will improve Outcome: Progressing Problem: Lack of Knowledge: Goal: Ability to develop a pain control plan will improve Outcome: Progressing Goal: Ability to identify pain intensity on a pain scale and rate it consistently will improve Outcome: Progressing Goal: Ability to notify healthcare provider of pain before it becomes unmanageable or unbearable will improve Outcome: Progressing Problem: Medication: Goal: Satisfaction with pain management regimen will improve Outcome: Progressing Problem: Sensory: Goal: Ability to identify factors that increase the pain will improve Outcome: Progressing Goal: Pain level will decrease Outcome: Progressing Goals: Clinical Goals for the Shift: Patient to remain hemodynamically stable this shift. Summary: Patient orientated to the unit. present at bedside. IV infusing. Pain addressed with PRN medication as per order. D LIFE THERAPIST * Op Note - Ramos Fraga MD - 10/07/2023 6:29 PM CST NAME: Jaden Clement DATE OF : 1970 SURGEON: Ramos Fraga MD DINING CAR CONDUCTOR:Development Architect: Eva Barboza RN Scrub: Tawnya Packer RN PARACHUTE REPAIRER: Eufemia Camp RN FLOAT: Eleni Solorio ST DATE OF SURGERY: 10/07/2023 PREOP DIAGNOSES: Acute appendicitis POSTOP DIAGNOSES: Acute appendicitis PROCEDURE: Laparoscopic appendectomy INDICATIONS OF PROCEDURE: The patient is a 53-year-old male who presented to the ER with a 1 day history of abdominal pain. CT scan was consistent with appendicitis. He was set up for appendectomy. FINDINGS: The appendix was irregular, very nodular in appearance and quite hard. The surrounding tissue was inflamed DETAILS OF PROCEDURE: After informed consent was obtained the patient was taken to the operating room and placed supine on the operating table. SCD boots were applied to bilateral lower extremities. General endotracheal intubation was achieved. Perioperative antibiotics were administered and a preoperative time-out completed. The patient was then prepped and draped in standard sterile fashion. Attention was directed towards the abdomen where a 1 cm supraumbilical incision was made. Using Optiview technique a 5 mm trocar and 0 degree scope was inserted into the abdominal cavity under direct visualization. No bowel noted to be in the vicinity of this initial trocar entrance. The abdomen was insufflated to 15 mm ofmercury. A 12 mm trocar was placed in the left mid abdomen with care taken to avoid injury to the inferior epigastric vessels. A 5 mm port was placed in the suprapubic location with care taken to avoid injury to the bladder. At this time the patient was placed head down and rotated to his left. Thesmall bowel was grasped and retracted out of the pelvis. At this time the appendix came into view. It was quite enlarged and irregular in appearance. It had nodularity over the surface and was quite hard. It did not have the classic appearance of an appendicitis but was grossly abnormal. At this time the appendix was grasped and elevated. The mesoappendix was taken down with the Harmonic scalpel.This was done until the base of the appendix was freed as it entered the cecum. Where the appendix entered the cecum it was inflamed but it did not have the same nodularity and firmness as the appendix.. At this time a linear stapler was inserted and the base of the appendix divided with a single firing of a purple load. The appendix was then grasped, placed in an Endo-Catch bag and brought through the 12 mm trocar. At this time the appendiceal base was inspected. It was found to be hemostatic.At this time a 10 [place] Islander flat CELIO drain was left over the staple line given the inflammation of the cecum. It was brought through the suprapubic port site and secured in place with a 3-0 nylon stitch.Remaining trocars were removed and pneumoperitoneum evacuated. The fascia of the left lower quadrant trocar was closed with a [id number] 0 Vicryl stitch. The skin of all trocar sites were closedwith interrupted 4 0 Monocryl subcuticular stitches. Dermabond was then applied. The patient was awoken from anesthesia and transferred to recovery in stable condition. At the end of the procedure all sponge, needle and instrument counts were reported to be correct x2 at the end of the case. ANESTHESIA: General. Plus 10 cc of 0.5% Marcaine with epinephrine COMPLICATIONS: None BLOOD LOSS: 10 cc SPECIMEN: Appendix Ramos Fraga MD 10/07/2023 7:29 PM D LIFE THERAPIST documented in this encounter Plan of Treatment Not on file documented as of this encounter Procedures Procedure Name Priority Date/Time Associated Diagnosis Comments EGFR Routine 10/08/2023 6:54 AM CHILD LIFE THERAPIST CBC WITHOUT DIFFERENTIAL Routine 10/08/2023 6:54 AM CHILD LIFE THERAPIST PHOSPHORUS Routine 10/08/2023 6:54 AM CHILD LIFE THERAPIST MAGNESIUM Routine 10/08/2023 6:54 AM CHILD LIFE THERAPIST BASIC METABOLIC PANEL Routine 10/08/2023 6:54 AM CHILD LIFE THERAPIST LAPAROSCOPIC APPENDECTOMY 10/07/2023 5:53 PM CHILD LIFE THERAPIST Acute appendicitis EGFR STAT 10/07/2023 3:44 PM CHILD LIFE THERAPIST DIFFERENTIAL AUTO STAT 10/07/2023 3:4 4 PM CHILD LIFE THERAPIST URINALYSIS AND REFLEX TO MICROSCOPIC AND CULTURE STAT 10/07/2023 3:44 PM CHILD LIFE THERAPIST CBC WITH AUTO DIFFERENTIAL STAT 10/07/2023 3:44 PM CHILD LIFE THERAPIST URINALYSIS, MICROSCOPIC ONLY STAT 10/07/2023 3:44 PM CHILD LIFE THERAPIST PROTIME-INR STAT 10/07/2023 3:44 PM CHILD LIFE THERAPIST URINE CULTURE STAT 10/07/2023 3:44 PM CHILD LIFE THERAPIST COMPREHENSIVE METABOLIC PANEL STAT 10/07/2023 3:44 PM CHILD LIFE THERAPIST SURGICAL PATHOLOGY Routine 10/07/2023 11 :06 AM CHILD LIFE THERAPIST Acute appendicitis, unspecified acute appendicitis type documented in this encounter Results * eGFR (10/08/2023 6:54 AM CHILD LIFE THERAPIST) eGFR 78 mL/min/1. 73 m2 [facility] ([place] Comment: Interpretive Data Reference Interval Normal ?>/= [...] interpretive data was last reviewed 2021. Blood 10/08/2023 6:54 AM CHILD LIFE THERAPIST 10/08/2023 7:11 AM CHILD LIFE THERAPIST Ramos Fraga MD LAB BLOOD ORDERA BLES Final Result [facility] ([place]) 1 [facility] Department of Laboratories [place], [place] [id number] * (ABNORMAL) CBC without differential (10/08/2023 6:54 AM CHILD LIFE THERAPIST) WBC 9.9 3.8 - 9.9 K/cumm [facility] ([place]) Hgb 13.5 13.0 - 17.5 g/dL [facility] ([place]) Hct 39.3 38.9 - 50.3 % [facility] ([place]) Plt 213 150 - 400 K/cumm [facility] ([place]) MPV 9.8 9.1 - 12.3 fL [facility] ([place]) RBC 4.18(L) 4.30 - 5.80 M/cumm [facility] ([place]) MCV 94.0 81.3 - 96.4 fL [facility] ([place]) MCH 32.3 27.1 - 33.3 pg [facility] ([place]) MCHC 34.4 32.3 - 35.7 g/dL [facility] ([place]) RDW CV 12.4 11.1 - 14.9 % [facility] ([place]) RDW SD 43.1 35.7 - 48.1 fL [facility] ([place]) NRBC abs 0.00 0.00 - 0.01 K/cumm [facility] ([place]) Blood 10/08/2023 6:54 AM CHILD LIFE THERAPIST 10/08/2023 7:11 AM CHILD LIFE THERAPIST Ramos Fraga MD LAB BLOOD ORDERA BLES Final Result [facility] ([place] 1 [facility] [place] [address] * Phosphorus (10/08/2023 6:54 AM CHILD LIFE THERAPIST) Phosphorus, pl 3.2 2.3 - 4.5 mg/dL [facility] ([place]) Blood 10/08/2023 6:54 AM CHILD LIFE THERAPIST 10/08/2023 7:11 AM CHILD LIFE THERAPIST Ramos Fraga MD LAB BLOOD ORDERA BLES Final Result Performing Organization Address [facility] Co de Phone Number [facility] ([place]) 1 [facility] [place] [address] * Magnesium (10/08/2023 6:54 AM CHILD LIFE THERAPIST) Magnesium 2.1 1.4 - 2.5 mg/dL [facility] ([place]) Blood 10/08/2023 6:54 AM CHILD LIFE THERAPIST 10/08/2023 7:11 AM CHILD LIFE THERAPIST Ramos Fraga MD LAB BLOOD ORDERA BLES Final Result Performing Organization Address City/[facility]/ZIP Co de Phone Number [facility] ([place]) 1 [facility] [place] [address] * (ABNORMAL) Basic metabolic panel (10/08/2023 6:54 AM CHILD LIFE THERAPIST) Sodium 133(L) 135 - 145 mmol/L [facility] ([place]) Potassium, pl 5.0(H) 3.3 - 4.9 mmol/L [facility] ([place]) Chloride 101 97 - 110 mmol/L [facility] ([place]) CO2 22 22 - 32 mmol/L [facility] ([place]) Anion gap 11 2 - 15 mmol/L [facility] ([place]) BUN 16 6 - 25 mg/dL [facility] ([place]) Creatinine 1.11 0.80 - 1.30 mg/dL [facility] ([place]) Glucose 165 70 - 199 mg/dL [facility] ([place]) Comment: Interpretive Data Fasting glucose >/= [...] interpretive data was last revised 2022. Calcium 9.0 8.5 - 10.3 mg/dL [facility] ([place]) Blood 10/08/2023 6:54 AM CHILD LIFE THERAPIST 10/08/2023 7:11 AM CHILD LIFE THERAPIST Ramos Fraga MD LAB BLOOD ORDERA BLES Final Result [facility] ([place]) 1 [facility] Department [place] [address] * eGFR (10/07/2023 3:44 PM CHILD LIFE THERAPIST) Pathologist [facility] eGFR 88 mL/min/1. 73 m2 [facility] ([place]) Comment: Interpretive Data Reference Interval Normal ?>/= [...] interpretive data was last reviewed 2021. Blood 10/07/2023 3:44 PM CHILD LIFE THERAPIST 10/07/2023 3:50 PM CHILD LIFE THERAPIST us Sukhwinder Sanchez MD LAB BLOOD ORDERABLES Final Res ult [facility] ([place] 1 [facility] Department [place] [address] * Urine culture Urine (10/07/2023 3:44 PM CHILD LIFE THERAPIST) Report Final Report: Less than 100,000 colonies/mL (clinically insignificant growth based on current clinical standards) [facility] ([place]) Comment:Testing performed by : [facility], [address] [facility], [place]., [address] Organism (CLINICALLY INSIGNIFICANT GROWTH [facility] ([place]) Urine 10/07/2023 3:44 PM CHILD LIFE THERAPIST 10/07/2023 8:47 PM CHILD LIFE THERAPIST Narrative [facility] ([place]) - 10/09/2023 7:56 AM CHILD LIFE THERAPIST Urine culture reflexed based upon urinalysis results. Testing performed by [facility] ([phone]) Sukhwinder Sanchez MD LAB MICROBIOLOGY - GENERAL ORD ERABLES Final Result [facility] ([place]) 1 [facility] Department [place] [address] * (ABNORMAL) Urinalysis, microscopic only (10/07/2023 3:44 PM CHILD LIFE THERAPIST) WBC, ur 11-20(A) 0 - 5 /HPF [facility] ([place]) RBC, ur 0-2 0 - 2 /HPF [facility] ([place]) Epithelial cells, squamous, ur 1-5 0 - 5 /HPF [facility] ([place]) Mucous, ur Present(A) [facility] ([place]) Culture Reflex Comment Reflex to urine culture will be performed. [facility] ([place]) Urine 10/07/2023 3:44 PM CHILD LIFE THERAPIST 10/07/2023 3:50 PM CHILD LIFE THERAPIST Sukhwinder Sanchez MD LAB URINE ORDERABLES Final Res ult [facility] ([place]) 1 [facility] [place] [address] * Differential, auto (10/07/2023 3:44 PM CHILD LIFE THERAPIST) Neutrophil abs 6.5 1.5 - 6.5 K/cumm [facility] ([place]) Imm gran abs 0.1 0.0 - 0.1 K/cumm [facility] ([place]) Lymphocyte abs 1.7 0.8 - 3.3 K/cumm [facility] ([place]) Monocyte abs 0.8 0.2 - 0.8 K/cumm [facility] ([place]) Eosinophil abs 0.2 0.0 - 0.5 K/cumm [facility] ([place]) Basophil abs 0.1 0.0 - 0.1 K/cumm [facility] ([place]) Neutrophil pct 70.4 % [facility] ([place]) Comment: Interpretive Data Percent cell count reference ranges are not reported, since discordance with absolute values may lead to misinterpretation of CBC data. Current Interpretive Data was last revised on 2017. Imm gran pct 1.0 % [facility] ([place]) Comment: Interpretive Data Percent cell count reference ranges are not reported, since discordance with absolute values may lead to misinterpretation of CBC data. Current Interpretive Data was last revised on 2017. Lymphocyte pct 18.1 % [facility] ([place]) Comment: Interpretive Data Percent cell count reference ranges are not reported, since discordance with absolute values may lead to misinterpretation of CBC data. Current Interpretive Data was last revised on 2017. Monocyte pct 8.4 % [facility] ([place]) Comment: Interpretive Data Percent cell count reference ranges are not reported, since discordance with absolute values may lead to misinterpretation of CBC data. Current Interpretive Data was last revised on 2017. Eosinophil pct 1.6 % [facility] ([place]) Comment: Interpretive Data Percent cell count reference ranges are not reported, since discordance with absolute values may lead to misinterpretation of CBC data. Current Interpretive Data was last revised on 2017. Basophil pct 0.5 % [facility] ([place]) Comment: Interpretive Data Percent cell count reference ranges are not reported, since discordance with absolute values may lead to misinterpretation of CBC data. Current Interpretive Data was last revised on 2017. Blood 10/07/2023 3:44 PM CHILD LIFE THERAPIST 10/07/2023 3:50 PM CHILD LIFE THERAPIST us Sukhwinder Sanchez MD LAB BLOOD ORDERABLES Final Res ult [facility] ([place] 1 [facility] Department [place] [address] * (ABNORMAL) Urinalysis reflex to microscopic and culture Urine (10/07/2023 3:44 PM CHILD LIFE THERAPIST) Color, ur Yellow Yellow [facility] ([place]) Clarity, ur Clear Clear [facility] ([place]) Specific gravity, ur 1.030 1.003 - 1.030 [facility] ([place]) pH, urine 5.5 [facility] ([place]) Comment: Interpretive Data ? Urine pH is affected by diet, medications, systemic acid-base disturbances, and renal tubular function. ??pH may affect urinary stone formation. ??For example, urine pH below 6.0 may help reduce the tendency for calcium phosphate stones and pH greater than 6.0 may reduce the tendency for uric acid stone formation. Source: [facility] Current Interpretive Data was last revised on 2017 Protein, ur ql Trace Negative [facility] ([place]) Glucose, ur ql Negative Negative [facility] ([place]) Ketones, ur Negative Negative [facility] ([place]) Bilirubin, ur Negative Negative [facility] ([place]) Blood, ur Negative Negative [facility] ([place]) Urobilinogen, ur <2.0 <2.0 mg/dL [facility] ([place]) Nitrite, ur Negative Negative [facility] ([place]) Leukocyte esterase, ur 1+(A) Negative [facility] ([place]) UA reflex comment Reflex to microscopic UA will be performed. [facility] ([place]) Urine 10/07/2023 3:44 PM CHILD LIFE THERAPIST 10/07/2023 3:50 PM CHILD LIFE THERAPIST Sukhwinder Sanchez MD LAB MICROBIOLOGY - GENERAL ORD ERABLES Final Result [facility] ([place]) 1 [facility] Department [place] [address] * Protime-INR (10/07/2023 3:44 PM CHILD LIFE THERAPIST) PT 11.7 10.3 - 13.7 sec [facility] ([place]) INR 1.03 0.90 - 1.20 [facility] ([place]) Comment: Interpretive data Oral anticoagulant therapeutic ranges: Venous thromboembolism prophylaxis or treatment: 2.0-3.0 CARDIOLOGY Standard range: 2.0-3.0 High-intensity range: 2.5-3.5 Refer to indication-specific guidelines for appropriate target ranges for prosthetic heart valve replacement. Current interpretive data was last revised on 2019. Blood 10/07/2023 3:44 PM CHILD LIFE THERAPIST 10/07/2023 3:50 PM CHILD LIFE THERAPIST us Sukhwinder Sanchez MD LAB BLOOD ORDERABLES Final Res ult [facility] ([place]) 1 [facility] Department [place] [address] * Comprehensive metabolic panel (10/07/2023 3:44 PM CHILD LIFE THERAPIST) Sodium 135 135 - 145 mmol/L [facility] ([place]) Potassium, pl 4.1 3.3 - 4.9 mmol/L [facility]) Chloride 99 97 - 110 mmol/L [facility]) CO2 24 22 - 32 mmol/L [facility]) Anion gap 11 2 - 15 mmol/L [facility] ([place]) BUN 12 6 - 25 mg/dL [facility]) Creatinine 1.01 0.80 - 1.30 mg/dL [facility] ([place]) Glucose 93 70 - 199 mg/dL [facility] ([place]) [...] interpretive data was last revised 2022. Calcium 9.7 8.5 - 10.3 mg/dL [facility] ([place]) Bilirubin, total 0.8 0.1 - 1.2 mg/dL [facility] ([place]) Protein, pl 7.2 6.5 - 8.5 g/dL [facility] ([place]) Albumin 4.3 3.5 - 5.0 g/dL [facility] ([place]) Alk phos 123 40 - 130 Units/L [facility]) ALT 20 7 - 55 Units/L [facility]) AST 16 10 - 50 Units/L [facility] ([place]) Comment:Slightly Hemolyzed S pecimen Blood 10/07/2023 3:44 PM CHILD LIFE THERAPIST 10/07/2023 3:50 PM CHILD LIFE THERAPIST us Sukhwinder Sanchez MD LAB BLOOD ORDERABLES Final Res ult Performing Organization Address City/[facility]/ZIP Co de Phone Number [facility] ([place]) 1 [facility] [place] [address] * CBC with auto differential (10/07/2023 3:44 PM CHILD LIFE THERAPIST) WBC 9.3 3.8 - 9.9 K/cumm [facility] ([place]) Hgb 14.5 13.0 - 17.5 g/dL [facility] ([place]) Hct 42.8 38.9 - 50.3 % [facility] ([place]) Plt 216 150 - 400 K/cumm [facility] ([place]) MPV 10.0 9.1 - 12.3 fL [facility] ([place]) RBC 4.58 4.30 - 5.80 M/cumm [facility] ([place]) MCV 93.4 81.3 - 96.4 fL [facility] ([place]) MCH 31.7 27.1 - 33.3 pg [facility] ([place]) MCHC 33.9 32.3 - 35.7 g/dL [facility] ([place]) RDW CV 12.2 11.1 - 14.9 % [facility] ([place]) RDW SD 42.3 35.7 - 48.1 fL [facility] ([place]) NRBC abs 0.00 0.00 - 0.01 K/cumm [facility] ([place]) Blood 10/07/2023 3:44 PM CHILD LIFE THERAPIST 10/07/2023 3:50 PM CHILD LIFE THERAPIST us Sukhwinder Sanchez MD LAB BLOOD ORDERABLES Final Res ult [facility] ([place]) 1 [facility] [place] [address] * Surgical pathology (10/07/2023 11:06 AM CHILD LIFE THERAPIST) Tissue (Appendix) 10/07/2023 6:32 PM CHILD LIFE THERAPIST Narrative PATHOLOGY [facility] ([place]) - 10/09/2023 5:30 PM CHILD LIFE THERAPIST EPIC results best viewed via link to PDF [facility] Department of Pathology [address] [place] [id number] Note to Patients: This report may contain [...] explain the details. Final Report Patient Name: ??BROOKLYN CLEMENTJolie Condon Address: ??[address] [place] [address], ??[place], [place] [address] Gender: ??M : ??1970 (Age: 53) Service: ??Surgery Location: ??[facility] Hospital #: ??[id number] Patient Type: ??[facility] OBS Accession # [id number] Taken: ??10/07/2023 Received: ??10/08/2023 Accessioned: ??10/08/2023 Reported: ??10/09/2023 Physician(s):Ramos Fraga MD Diagnosis: A. ??Appendix, laparoscopic appendectomy: ? Acute appendicitis, marked, with periappendicitis ?? Radha Delgado M.D. Report Electronically Reviewed and Signed Out By ??Radha Delgado M.D. ??10/09/2023 17:30:58 Specimen(s) Received: A: Appendix Microscopic Description: Microscopic examination corroborates the diagnosis. ?? Clinical History: Acute appendicitis. ??Laparoscopic appendectomy. Gross Description: The specimen is submitted in a single formalin filled container labeled with JADEN CLEMENT and appendix . ??It is a vermiform appendix that measures 8.5 x 1.5 cm. ??The serosa is markedly hemorrhagic with hammond exudate. ??The muscular wall is thickened and fibrotic measuring up to 6 mm. ??The lumen is dilated at the mid section containing blood and fecal matter. ??No muscular wall perforation is seen grossly. ??Special Investigator sections are submitted: ??Tip A1, mid section A2 and A3, staple line margin A4 Alejandra Arreguin R.N., P.A./Radha Delgado M.D. REPORT IMAGES AND SCANNED DOCUMENTS, IF INCLUDED, ONLY VIEWABLE IN PDF VERSION OF REPORT The performance characteristics of some immunohistochemical stains, fluorescence in-situ hybridization tests and immunophenotyping by flow cytometry cited in this report (if any) were determined by the Surgical Pathology Department at [facility] as part of an ongoing quality measurement specialist program and in compliance with federally mandated [...] characteristics determined by the Surgical Pathology Department [facility]. ??It has not been cleared or approved by the U. S. Food and Drug Administration. Note for decalcified specimens: This assay has not been validated on decalcified tissues. Results should be interpreted with caution given the possibility of false negativity on decalcified specimens Ramos Fraga MD LAB PATHOLOGY OR DERABLES Final Result PATHOLOGY [facility] ([place]) 1 [place] [address] documented in this encounter Visit Diagnoses Diagnosis Status post appendectomy- Primary Other postprocedural status Acute appendicitis with localized peritonitis, without perforation, abscess, or gangrene Acute appendicitis, unspecified acute appendicitis type Acute appendicitis with localized peritonitis, without perforation, abscess, or gangrene documented in this encounter Admitting Diagnoses Diagnosis Status post appendectomy Other postprocedural status Acute appendicitis with localized peritonitis, without perforation, abscess, or gangrene Acute appendicitis Acute appendicitis without mention of peritonitis documented in this encounter Administered Medications Inactive Administered Medications - up to 3 most recent administrations Medication Order MAR Action Action Date Dose Rate Site buPROPion XL (WELLBUTRIN XL) 24 hour tablet 300 mg 300 mg, oral, Every morning, First dose on Sat10/08/23 at 0900, Do not crush, chew, cut, dissolve, open or otherwise manipulate tablet/capsule. Given 10/08/2023 9:10 AM CHILD LIFE THERAPIST 300 mg docusate sodium (COLACE) capsule 100 mg 100 mg, oral, 2 times daily, First dose on Sat10/07/23 at 2100, Indications: constipationIndications:constipati on Given 10/08/2023 9:10 AM CHILD LIFE THERAPIST 100 mg Given 10/07/2023 10:10 PM CHILD LIFE THERAPIST 100 mg enoxaparin (LOVENOX) syringe 40 mg 40 mg, subcutaneous, Daily (for enoxaparin), First dose on Sat10/07/23 at 2100, Indications: Deep Vein Thrombosis PreventionIndications:Deep Vein Thrombosis Prevention Given 10/07/2023 10:10 PM CHILD LIFE THERAPIST 40 mg Left Lower Abdomen fentaNYL (SUBLIMAZE) preservative free injection 25 mcg 25 mcg, intravenous, Every 10 min PRN, 1st line for pain, Starting on Sat10/07/23 at 1939, Phase I, Switch to 2nd line analgesic order if pain is uncontrolled or increasing after 2 doses. Notify Anesthesiologist if total PACU dose reaches 100 mcg and pain score 5/10 or more., Indications: PainIndications:Pain Given 10/07/2023 7:56 PM CHILD LIFE THERAPIST 25 mcg Given 10/07/2023 7:46 PM CHILD LIFE THERAPIST 25 mcg HYDROcodone-acetaminophen (NORCO) 5-325 mg per tablet 1 tablet 1 tablet, oral, Every 4 hours PRN, 1st line for pain, Starting on Sat10/08/23 at 0905, Indications: PainIndications:Pain Given 10/08/2023 1:28 PM CHILD LIFE THERAPIST 1 tablet Given 10/08/2023 9:10 AM CHILD LIFE THERAPIST 1 tablet HYDROmorphone (DILAUDID) injection 1 mg 1 mg, intravenous, Administer over 2 Minutes, Every 2 hours PRN, pain 7-10, Starting on Sat10/07/23 at 2017 Given 10/08/2023 5:32 AM CHILD LIFE THERAPIST 1 mg Given 10/08/2023 3:02 AM CHILD LIFE THERAPIST 1 mg Given 10/07/2023 11:57 PM CHILD LIFE THERAPIST 1 mg Lactated Ringer's (LR) infusion 30 mL/hr, intravenous, Continuous, Starting on Sat10/07/23 at 1745, Pre-Op Rate/Dose Verify 10/07/2023 6:08 PM CHILD LIFE THERAPIST 30 mL/hr New Bag 10/07/2023 5:17 PM CHILD LIFE THERAPIST 30 mL/hr 30 mL/hr Lactated Ringer's (LR) infusion 75 mL/hr, intravenous, Continuous, Starting on Sat10/07/23 at 2100 New Bag 10/07/2023 8:30 PM CHILD LIFE THERAPIST 75 mL/hr 75 mL/hr lisinopriL (PRINIVIL,ZESTRIL) tablet 5 mg 5 mg, oral, Nightly, First dose on Sat10/07/23 at 2100 Given 10/07/2023 10:10 PM CHILD LIFE THERAPIST 5 mg metoprolol XL (TOPROL-XL) extended release tablet 50 mg 50 mg, oral, Nightly, First dose on Sat10/07/23 at 2100, Tablets that are scored may be split, but do not crush, chew, dissolve, open or otherwise manipulate tablet/capsule. Given 10/07/2023 10:10 PM CHILD LIFE THERAPIST 50 mg ondansetron (ZOFRAN) injection 4 mg 4 mg, intravenous, Administer over 2 Minutes, Every 6 hours PRN, nausea, vomiting, Starting on Sat10/07/23 at 2016, Indications: Nausea and VomitingIndications:Nausea and Vomiting Given 10/08/2023 5:41 AM CHILD LIFE THERAPIST 4 mg Given 10/07/2023 8:48 PM CHILD LIFE THERAPIST 4 mg piperacillin-tazobactam (ZOSYN) 3.375 gram/65 mL in sodium chloride 0.9% (premix) 3.375 g 3.375 g, intravenous, at 130 mL/hr, Administer over 30 Minutes, Every 6 hours scheduled, First dose on Sat10/07/23 at 1615, Indications: Abdominal/Pelvic InfectionIndications:Abdominal/Pel monique Infection New Bag 10/08/2023 5:35 AM CHILD LIFE THERAPIST 3.375 g 130 mL/hr New Bag 10/07/2023 11:32 PM CHILD LIFE THERAPIST 3.375 g 130 mL/hr New Bag 10/07/2023 4:31 PM CHILD LIFE THERAPIST 3.375 g 130 mL/hr pramipexole (MIRAPEX) tablet 1.5 mg 1.5 mg, oral, 3 times daily, First dose on Sat10/07/23 at 2200 Given 10/08/2023 9:10 AM CHILD LIFE THERAPIST 1.5 mg Given 10/07/2023 10:10 PM CHILD LIFE THERAPIST 1.5 mg sodium chloride 0.9% infusion 125 mL/hr, intravenous, Continuous, Starting on Sat10/07/23 at 1542 New Bag 10/07/2023 4:14 PM CHILD LIFE THERAPIST 125 mL/hr 125 mL/hr documented in this encounter Discontinued Medications Medication Sig Discontinue Reason Start Date End Da te metoprolol tartrate (LOPRESSOR) 25 mg immediate release tablet Take 0.5 tablets (12.5 mg total) by mouth once as needed (palpitations) for up to 10 doses Alternate therapy 07/29/2023 10/07/2023 metoprolol XL (TOPROL-XL) 25 mg extended release tabletIndications:Essenti al hypertension Take 1 tablet (25 mg total) by mouth nightly Alternate therapy 08/30/2023 10/07/2023 documented as of this encounter Active and Recently Administered Medications Times are shown in CHILD LIFE THERAPIST. Scheduled Medication Order 10/06/2023 10/07/2023 10/08/2023 buPROPion XL (WELLBUTRIN XL) 24 hour tablet 300 mg 300 mg, oral, Every morning, First dose on Sat10/08/23 at 0900, Do not crush, chew, cut, dissolve, open or otherwise manipulate tablet/capsule. 0910 (Given - Provid er: Lily Murray RN) cefOXitin (MEFOXITIN) 2,000 mg/20 mL in sterile water (premix) 2,000 mg (COMPLETED) 2,000 mg, intravenous, at 400 mL/hr, Administer over 3 Minutes, Once, On Sat10/07/23 at 1745, For 1 dose, Intra-Op, Indications: Prophylaxis, Surgical 1824 (Given - Provider: Kole Marley CRNA) docusate sodium (COLACE) capsule 100 mg 100 mg, oral, 2 times daily, First dose on Sat10/07/23 at 2100, Indications: constipation 2210 (Given - Provider: Chayito Horta RN) 0910 (Given - Provider: Lily Murray, TERESO) enoxaparin (LOVENOX) syringe 40 mg 40 mg, subcutaneous, Daily (for enoxaparin), First dose on Sat10/07/23 at 2100, Indications: Deep Vein Thrombosis Prevention 2210 (Given - Provider: Chayito Horta RN) lisinopriL (PRINIVIL,ZESTRIL) tablet 5 mg 5 mg, oral, Nightly, First dose on Sat10/07/23 at 2100 2210 (Given - Provider: Chayito Horta RN) metoprolol XL (TOPROL-XL) extended release tablet 50 mg 50 mg, oral, Nightly, First dose on Sat10/07/23 at 2100, Tablets that are scored may be split, but do not crush, chew, dissolve, open or otherwise manipulate tablet/capsule. 2210 (Given - Provider: Chayito Horta RN) piperacillin-tazobactam (ZOSYN) 3.375 gram/65 mL in sodium chloride 0.9% (premix) 3.375 g (CANCELED) 3.375 g, intravenous, at 130 mL/hr, Administer over 30 Minutes, Every 6 hours scheduled, First dose on Sat10/07/23 at 1615, Indications: Abdominal/Pelvic Infection 1631 (New Bag - Provider: Laura Covington RN)1658 (NOV Hold - Provider: Automatic Transfer Provider - Reason: Patient not available)1701 (Due: Stopped - Provider: Laura Covington RN)2010 (MAR Unhold - Provider: Automatic Transfer Provider)2332 (New Bag - Provider: Chayito Horta RN) 0535 (New Bag - Provider: Chayito Horta RN) pramipexole (MIRAPEX) tablet 1.5 mg 1.5 mg, oral, 3 times daily, First dose on Sat10/07/23 at 2200 2210 (Given - Provider: Chayito Horta RN) 0910 (Given - Provider: Lily Murray, TERESO) sodium chloride 0.9% flush 0.5-20 mL 0.5-20 mL, intra-catheter, Every 8 hours scheduled, First dose on Sat10/07/23 at 2200, Flush volume based on line type and size. 2211 (Not Given - Provider: Chayito Horta RN - Reason: IV Infusing) 0551 (Not Given - Provider: Chayito Horta RN - Reason: IV Infusing)1344 (Not Given - Provider: Lily Murray, TERESO - Reason: IV Infusing) Continuous Medication Order 10/06/2023 10/07/2023 10/08/2023 Lactated Ringer's (LR) infusion (CANCELED) 30 mL/hr, intravenous, Continuous, Starting on Sat10/07/23 at 1745, Pre-Op 1717 (New Bag - Provider: Daniella Hooper RN)1808 (Rate/Dose Verify - Provider: Kole Marley CRNA)1930 (Anesthesia Volume Adjustment - Provider: Kole Marley CRNA) 0723 (Stopped - Provider: Lily Murray RN) Lactated Ringer's (LR) infusion 75 mL/hr, intravenous, Continuous, Starting on Sat10/07/23 at 2100 2030 (New Bag - Provider: Chayito Horta RN) 1848 (Due: Stopped) sodium chloride 0.9% infusion (CANCELED) 125 mL/hr, intravenous, Continuous, Starting on Sat10/07/23 at 1542 1614 (New Bag - Provider: Laura Covington RN) 0722 (Stopped - Provider: Lily Murray, TERESO) PRN Medication Order 10/06/2023 10/07/2023 10/08/2023 BUPivacaine-EPINEPHrine (MARCAINE with EPI) 0.5 %-1:200,000 preservative free injection (CANCELED) As needed, Starting on Sat10/07/23 at 1829, Intra-Op 1829 (Given - Provider: Ramos Fraga MD) Carrier Fluids for Secondary Infusion - 0.9% Sodium Chloride 30 mL, intravenous, As needed, For priming tubing and/or flushing, Starting on Sat10/07/23 at 2016, 0-250 ml/hr to flush line after IV infusions when no maintenance IV ordered. Infuse 30mL at the same rate as the secondary infusion. Run as primary IV, not intended for KVO. fentaNYL (SUBLIMAZE) preservative free injection 25 mcg (CANCELED) 25 mcg, intravenous, Every 10 min PRN, 1st line for pain, Starting on Sat10/07/23 at 1939, Phase I, Switch to 2nd line analgesic order if pain is uncontrolled or increasing after 2 doses. Notify Anesthesiologist if total PACU dose reaches 100 mcg and pain score 5/10 or more., Indications: Pain 1946 (Given - Provider: Susy Garber, TERESO)195 (Given - Provider: Susy Garber, RN) HYDROcodone-acetaminophen (NORCO) 5-325 mg per tablet 1 tablet 1 tablet, oral, Every 4 hours PRN, 1st line for pain, Starting on Sat10/08/23 at 0905, Indications: Pain 0910 (Given - Provid er: Lily Murray RN)1328 (Given - Provider: Lily Murray, RN) HYDROmorphone (DILAUDID) injection 1 mg (CANCELED) 1 mg, intravenous, Administer over 2 Minutes, Every 2 hours PRN, pain 7-10, Starting on Sat10/07/23 at 2017 2049 (Given - Provider: Chayito Horta RN)2357 (Given - Provider: Chayito Horta RN) 0302 (Given - Provider: Chayito Horta RN)0532 (Given - Provider: Chayito Horta, RN) ondansetron (ZOFRAN) injection 4 mg 4 mg, intravenous, Administer over 2 Minutes, Every 6 hours PRN, nausea, vomiting, Starting on Sat10/07/23 at 2016, Indications: Nausea and Vomiting 2047 (Given - Provider: Chayito Horta RN) 0541 (Given - Provider: Chayito Horta, RN) sodium chloride 0.9% flush 0.5-20 mL 0.5-20 mL, intra-catheter, As needed, line care, Starting on Sat10/07/23 at 2016, Flush volume based on line type and size. Flush before and after each use. 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) documented in this encounter Orders Medications Ordered That Aden ht Not Have Been Administered Count Last Ordered Date First Ordered Date BUPivacaine-EPINEPHrine (MAR OLY with EPI) 0.5 %-1:200,000 preservative free injection 1 10/07/2023 Carrier Fluids for Secondary Infusion - 0.9% Sodium Chloride 1 10/07/2023 cefOXitin (MEFOXITIN) 2,000 mg/20 mL in sterile water (premix) 2,000 mg 1 10/07/2023 diphenhydrAMINE (BENADRYL) 5 0 mg/mL injection 12.5 mg 1 10/07/2023 fentaNYL (SUBLIMAZE) preserv ative free injection 50 mcg 1 10/07/2023 HYDROmorphone (DILAUDID) injection 0.5 mg 1 10/07/2023 meperidine (DEMEROL) preserv ative free injection 12.5 mg 1 10/07/2023 naloxone (NARCAN) 0.4 mg/mL injection 0.04-0.4 mg 1 10/07/2023 ondansetron (ZOFRAN) injection 4 mg 1 10/07 sodium chloride 0.9% flush 0.5-20 mL 2 09/10 sodium chloride 0.9% irrigation 1 Nursing Count Last Ordered Date First Orde red Date DISCHARGE INSTRUCTIONS 2 10/08/2023 Admission Count Last Ordered Date First Orde red Date INITIATE OBSERVATION SERVICES 2 10/07/2023 Transfer Count Last Ordered Date First Orde red Date TRANSFER PATIENT TO NEW UNIT 1 10/07/2023 Discharge Count Last Ordered Date First Orde red Date DISCHARGE PATIENT 1 10/08/2023 documented in this encounter Care Teams Digital Account Executive Relationship Specialty Start Date End Date La Núñez MD [address] [place] [address] [address] PCP - General Family Medicine 10/02/22 Mariaelena Zaidi MD Consulting Physician Sleep Medicine 07/12/21 documented as of this encounter
--- OUTSIDE RECORDS SUMMARY | 2024-09-17 12:48 | XMS_ITS | Encounter Summary ---
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 I recommend an abdominal and pelvis ultrasound in 3 months for monitoring Dx enlarged lymph nodes UNCH OPERATOR documented in this encounter Plan of Treatment Not on file documented as of this encounter Visit Diagnoses Not on filedocumented in this encounter Care Teams Asphalt Plant Worker Relationship Specialty Start Date End Date La Kearney MD [address] [place] [address] DR LUCAS [address] [place] [id number] PCP - General Family Medicine 10/02/22 Mariaelena Zaidi MD Consulting Physician Sleep Medicine 07/12/21 documented as of this encounter
--- OUTSIDE RECORDS SUMMARY | 2024-09-17 12:48 | XMS_ITS | Encounter Summary ---
Author Organization [facility] Healthcare Address [address] [place] [address] Care Team Providers Care Web Applications Administrator Name Role Phone Mariaelena Zaidi MD Unavailable [...] Expiration Date Visits Re quested Visits Authorized [id number] 1 1 Encounter Details Date Type Department Care Team (Late st Contact Info) Description 10/07/2023 6:00 PM VIDEO CONTROL OPERATOR - 10/07/2023 7:35 PM VIDEO CONTROL OPERATOR Surgery [facility] Operating Room 1 [place] [address] Ramos Fraga MD [address] [place] [id number] LAPAROSCOPIC APPENDECTOMY Surgery Details Date/Time Status Location OR Service Patient Class Case Class Case Type Trauma Case? 10/07/2023 6:00 PM Posted [facility] OPERATING ROOM OR General Surgery Inpatient Urgent - 24 hours Panel 1 Procedure LRB Anes Op Region Wound Class Comments LAPAROSCOPIC APPENDECTOMY N/A General Abdomen Class II - Clean Contaminated Surgeon Surgeon Role Service Panel Ramos Fraga MD Primary General Surgery 1 documented in this encounter Social History [...] on file 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 VIDEO CONTROL OPERATOR Gender Identity Not on file Sexual Orientation Not on file documented as of this encounter Last Filed Vital Signs Vital Sign Reading Time Taken Comments Blood Pressure 131/75 10/07/2023 7:35 PM VIDEO CONTROL OPERATOR Pulse 70 10/07/2023 7:35 PM VIDEO CONTROL OPERATOR Temperature 36.5 ??C (97.7 ??F) 10/07/2023 7:33 PM CS T Respiratory Rate 20 10/07/2023 7:35 PM VIDEO CONTROL OPERATOR Oxygen Saturation 99% 10/07/2023 7:35 PM VIDEO CONTROL OPERATOR Inhaled Oxygen Concentration - - Weight 124.7 kg (275 lb) 10/07/2023 3:30 PM VIDEO CONTROL OPERATOR Height 188 cm (6' 2 ) 10/07/2023 3:30 PM VIDEO CONTROL OPERATOR Body Mass Index 35.31 10/07/2023 8:17 PM VIDEO CONTROL OPERATOR documented in this encounter Discharge Summaries * Charissa Mcdonald NP - 10/08/2023 1:30 PM CST Inpatient Discharge Summary BRIEF OVERVIEW Admitting Provider: Ramos Fraga MD Discharge Provider: Ramos Fraga MD Primary Care Physician at Discharge: La Núñez MD [phone] Admission Date: 10/07/2023 Discharge Date: 10/08/2023 Admission Location: [facility] Problems/Diagnoses: Principal Problem: Status post appendectomy [...] 1 week, Please call office for appointment [phone] 8. Diet, until follow up: regular 9. [...] dysfunction Max 1 daily. Commonly known as: CIALIS Outpatient Follow-Up: Future Appointments Date Time Provider Department Center 12/11/2023 8:30 AM La Núñez MD PCP [facility] PC Cosigned by Ramos Fraga MD at 10/08/2023 4:13 PM VIDEO CONTROL OPERATOR O CONTROL OPERATOR O CONTROL OPERATOR documented in this encounter Discharge Instructions * Discharge Instructions* Mireille Moura RN - 10/08/2023 2:01 PM VIDEO CONTROL OPERATOR THANK YOU for choosing our team to provide your health care. Your HEALTH AND SAFETY are important to us. We hope you feel your care on SCU is ALWAYS EXCELLENT! Please call SCU at [phone] if you have any questions regarding your care. Wishing you continued improvement during your recovery. Your Surgical Care Unit Team Mireille Camara Dana, Denise, Nancy, Peggy, Samantha, Megan, Stacy, Debbie, Dory, Lamika, Kelly, Terrie, Shahla, Lisseth, Annia, Keshia Tang Angie, Melanie, Sweetie, Dayanara Christopher. O CONTROL OPERATOR * Attachments The following attachments cannot be sent through Care Everywhere. * Appendicitis (Discharge Care) (Guamanian) * Obed-Malhotra Drain Care (Discharge Care) (Guamanian) * Laxative, Stool Softeners (By mouth) (Guamanian) * Ondansetron (By mouth, Into the mouth) (Guamanian) * Hydrocodone/Acetaminophen (By mouth) (Guamanian) documented in this encounter Medications at Time [...] Pain is well controlled. 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 [...] Ramos Fraga MD at 10/08/2023 6:51 PM VIDEO CONTROL OPERATOR O CONTROL OPERATOR O CONTROL OPERATOR * Barron Webber - 10/08/2023 8:23 AM [...] 05/25/2020 Added automatically from request for surgery [id number] Sleep apnea Urinary retention Past Surgical History: [...] grooming, cooking, and cleaning. 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 CELIO, IV, and Lower extremity sequentials in place PAIN: Pre-therapy pain level: 3-4/10 Pain location: Left abdominal region Pain intervention: RN aware Post-therapy pain level/response to intervention: 3-4/10, pain unchanged with ambulation LE ASSESSMENTS: Right [...] M Grace PT at 10/08/2023 12:02 PM VIDEO CONTROL OPERATOR O CONTROL OPERATOR O CONTROL OPERATOR documented in this encounter H&P Notes * [...] 05/25/2020 Added automatically from request for surgery [id number] Sleep apnea Urinary retention Past Surgical History: [...] and IV pain control. All questions answered. Ramos Fraga MD 4:01 PM 10/07/2023 O CONTROL OPERATOR documented in this encounter ED Notes * [...] 05/25/2020 Added automatically from request for surgery [id number] ??? Sleep apnea ??? Urinary retention Past [...] Electronically signed by Ziggy Almaguer M.D. CH: [facility] Medical Decision Making Amount and/or Complexity of Data Reviewed Labs: ordered. Risk Prescription drug management. ED Course as of 10/07/23 1553 Time: 10/07 1551 Comment: Discussed with Dr Berrios will take him to [place]. By: Sukhwinder Sanchez MD Final diagnoses: Acute appendicitis with localized peritonitis, without perforation, abscess, or gangrene Sukhwinder Sanchez MD 10/07/23 1551 O CONTROL OPERATOR * Tigist Coronado RN - 10/07/2023 3:29 PM CST Patient presents to the Ed with complaints of abdominal pain since this morning, went to his pcp and had a CT scan and sent here for appendicitis O CONTROL OPERATOR documented in this encounter Miscellaneous Notes * [...] up independently, and has no other complaints O CONTROL OPERATOR * Initial Assessments - Denice Clark RN - 10/08/2023 11:40 AM CST CM Low Risk Discharge Planning Assessment Note Primary Care Provider: La Núñez MD Preferred Pharmacy: [facility] - [place], [place] - [address] [facility] [address] [facility] [address] [facility] - [place], [place] - [address] [facility] [address] [facility] [address] [facility] - [place], [place] - [address] [facility] [address] [facility] [address] Who does the patient or legal guardian [...] a CPAP and gets his supplies thru [facility]. Had a lap appy on10/07. Barrier to dc is recovery after surgery. No home needs noted at this time. Denice Clark RN Phone Number: O CONTROL OPERATOR * Plan of Care - Chayito Horta [...] addressed with PRN medication as per order. O CONTROL OPERATOR * Op Note - Ramos Fraga MD - 10/07/2023 6:29 PM CST NAME: Jaden Clement DATE OF : 1970 SURGEON: Ramos Fraga MD OUTLET MANAGER:Lumber Stacker Operator: Eva Barboza RN Scrub: Tawnya Packer RN SENIOR GRANTS OFFICER: Eufemia Camp RN FLOAT: Eleni Solorio ST [...] to be hemostatic.At this time a 10 Sami flat CELIO drain was left over the staple line given the inflammation of the cecum. It was brought through the suprapubic port site and secured in place with a 3-0 nylon stitch.Remaining trocars were removed and pneumoperitoneum evacuated. The fascia of the left lower quadrant trocar was closed with a [id number] 0 Vicryl stitch. The skin of all [...] Appendix Ramos Fraga MD 10/07/2023 7:29 PM O CONTROL OPERATOR documented in this encounter Plan of Treatment Not on file documented as of this encounter Procedures Procedure Name Priority Date/Time Associated Diagnosis Comments EGFR Routine 10/08/2023 6:54 AM VIDEO CONTROL OPERATOR CBC WITHOUT DIFFERENTIAL Routine 10/08/2023 6:54 AM VIDEO CONTROL OPERATOR PHOSPHORUS Routine 10/08/2023 6:54 AM VIDEO CONTROL OPERATOR MAGNESIUM Routine 10/08/2023 6:54 AM VIDEO CONTROL OPERATOR BASIC METABOLIC PANEL Routine 10/08/2023 6:54 AM VIDEO CONTROL OPERATOR LAPAROSCOPIC APPENDECTOMY 10/07/2023 5:53 PM VIDEO CONTROL OPERATOR Acute appendicitis EGFR STAT 10/07/2023 3:44 PM VIDEO CONTROL OPERATOR DIFFERENTIAL AUTO STAT 10/07/2023 3:4 4 PM VIDEO CONTROL OPERATOR URINALYSIS AND REFLEX TO MICROSCOPIC AND CULTURE STAT 10/07/2023 3:44 PM VIDEO CONTROL OPERATOR CBC WITH AUTO DIFFERENTIAL STAT 10/07/2023 3:44 PM VIDEO CONTROL OPERATOR URINALYSIS, MICROSCOPIC ONLY STAT 10/07/2023 3:44 PM VIDEO CONTROL OPERATOR PROTIME-INR STAT 10/07/2023 3:44 PM VIDEO CONTROL OPERATOR URINE CULTURE STAT 10/07/2023 3:44 PM VIDEO CONTROL OPERATOR COMPREHENSIVE METABOLIC PANEL STAT 10/07/2023 3:44 PM VIDEO CONTROL OPERATOR SURGICAL PATHOLOGY Routine 10/07/2023 11 :06 AM VIDEO CONTROL OPERATOR Acute appendicitis, unspecified acute appendicitis type documented in this encounter Results * eGFR (10/08/2023 6:54 AM VIDEO CONTROL OPERATOR) eGFR 78 mL/min/1. 73 m2 [facility] [...] last reviewed 2021. Blood 10/08/2023 6:54 AM VIDEO CONTROL OPERATOR 10/08/2023 7:11 AM VIDEO CONTROL OPERATOR us Ramos Fraga MD LAB BLOOD ORDERA BLES Final Result [facility] ([place]) 1 [facility] Department of Laboratories [place], [place] [id number] * (ABNORMAL) CBC without differential (10/08/2023 6:54 AM VIDEO CONTROL OPERATOR) WBC 9.9 3.8 - 9.9 K/cumm [facility] [...] [facility] ([place]) Blood 10/08/2023 6:54 AM VIDEO CONTROL OPERATOR 10/08/2023 7:11 AM VIDEO CONTROL OPERATOR Ramos Fraga MD LAB BLOOD ORDERA BLES Final Result [facility] ([place] 1 [facility] [place] [address] * Phosphorus (10/08/2023 6:54 AM VIDEO CONTROL OPERATOR) Phosphorus, pl 3.2 2.3 - 4.5 mg/dL [facility] ([place] Blood 10/08/2023 6:54 AM VIDEO CONTROL OPERATOR 10/08/2023 7:11 AM VIDEO CONTROL OPERATOR Ramos Fraga MD LAB BLOOD ORDERA BLES Final Result Performing Organization Address City/[facility]/ZIP Co de Phone Number [facility] ([place]) 1 [facility] [place] [address] * Magnesium (10/08/2023 6:54 AM VIDEO CONTROL OPERATOR) Magnesium 2.1 1.4 - 2.5 mg/dL [facility] ([place]) Blood 10/08/2023 6:54 AM VIDEO CONTROL OPERATOR 10/08/2023 7:11 AM VIDEO CONTROL OPERATOR Ramos Fraga MD LAB BLOOD ORDERA BLES Final Result [facility] ([place]) 1 [facility] [place] [address] * (ABNORMAL) Basic metabolic panel (10/08/2023 6:54 AM VIDEO CONTROL OPERATOR) Sodium 133(L) 135 - 145 mmol/L [facility] ([place]) Potassium, pl 5.0(H) 3.3 - 4.9 mmol/L [facility] ([place]) Chloride 101 97 - 110 mmol/L [facility] ([place]) CO2 22 22 - 32 mmol/L [facility] ([place]) Anion gap 11 2 - 15 mmol/L [facility] ([place]) BUN 16 6 - 25 mg/dL [facility] ([place]) Creatinine 1.11 0.80 - 1.30 mg/dL [facility] ([place]) Glucose 165 70 - 199 mg/dL [facility] ([place]) Comment: Interpretive Data Fasting glucose [...] 2022. Calcium 9.0 8.5 - 10.3 mg/dL [facility] ([place]) Blood 10/08/2023 6:54 AM VIDEO CONTROL OPERATOR 10/08/2023 7:11 AM VIDEO CONTROL OPERATOR us Ramos Fraga MD LAB BLOOD ORDERA ROSES Final Result [facility] ([place]) 1 [facility] Department [place] [address] * eGFR (10/07/2023 3:44 PM VIDEO CONTROL OPERATOR) eGFR 88 mL/min/1. 73 m2 [facility] ([place]) Comment: Interpretive Data Reference Interval [...] last reviewed 2021. Blood 10/07/2023 3:44 PM VIDEO CONTROL OPERATOR 10/07/2023 3:50 PM VIDEO CONTROL OPERATOR Sukhwinder Sanchez MD LAB BLOOD ORDERABLES Final Res ult [facility] ([place]) 1 [facility] Department [place] [address] * Urine culture Urine (10/07/2023 3:44 PM VIDEO CONTROL OPERATOR) Report Final Report: Less than 100,000 colonies/mL (clinically insignificant growth based on current clinical standards) [facility] ([place]) Comment:Testing performed by : [facility], [address] [facility] [place]., [address] Organism (CLINICALLY INSIGNIFICANT GROWTH [facility] ([place]) Urine 10/07/2023 3:44 PM VIDEO CONTROL OPERATOR 10/07/2023 8:47 PM VIDEO CONTROL OPERATOR Narrative [facility] ([place]) - 10/09/2023 7:56 AM VIDEO CONTROL OPERATOR Urine culture reflexed based upon urinalysis results. Testing performed by [facility] ([phone]) Sukhwinder Sanchez MD LAB MICROBIOLOGY - GENERAL ORD ERABLES Final Result Performing Organization Address [facility] Co de Phone Number [facility] ([place]) 1 [facility] Department [place] [address] * (ABNORMAL) Urinalysis, microscopic only (10/07/2023 3:44 PM VIDEO CONTROL OPERATOR) WBC, ur 11-20(A) 0 - 5 /HPF [facility] ([place]) RBC, ur 0-2 0 - 2 /HPF [facility] ([place]) Epithelial cells, squamous, ur 1-5 0 - 5 /HPF [facility] ([place]) Mucous, ur Present(A) [facility] ([place]) Culture Reflex Comment Reflex to urine culture will be performed. [facility] ([place]) Urine 10/07/2023 3:44 PM VIDEO CONTROL OPERATOR 10/07/2023 3:50 PM VIDEO CONTROL OPERATOR Sukhwinder Sanchez MD LAB URINE ORDERABLES Final Res ult Performing Organization Address City/[facility]/ZIP Co de Phone Number [facility] ([place]) 1 [facility] Department [place] [address] * Differential, auto (10/07/2023 3:44 PM VIDEO CONTROL OPERATOR) Neutrophil abs 6.5 1.5 - 6.5 K/cumm [...] on 2017. Imm gran pct 1.0 % [facility] ([place]) Comment: Interpretive Data Percent cell [...] revised on 2017. Monocyte pct 8.4 % [facility] ([place]) Comment: Interpretive Data Percent cell [...] revised on 2017. Basophil pct 0.5 % [facility] ([place]) Comment: Interpretive Data Percent cell count reference ranges are not reported, since discordance with absolute values may lead to misinterpretation of CBC data. Current Interpretive Data was last revised on 2017. Blood 10/07/2023 3:44 PM VIDEO CONTROL OPERATOR 10/07/2023 3:50 PM VIDEO CONTROL OPERATOR us Sukhwinder Sanchez MD LAB BLOOD ORDERABLES Final Res ult [facility] ([place]) 1 [facility] Department of Laboratories [place], [place] [id number] * (ABNORMAL) Urinalysis reflex to microscopic and culture Urine (10/07/2023 3:44 PM VIDEO CONTROL OPERATOR) Color, ur Yellow Yellow [facility] ([place]) Clarity, ur Clear Clear [facility] ([place]) Specific gravity, ur 1.030 1.003 - 1.030 [...] tendency for uric acid stone formation. Source: [facility] Current Interpretive Data was last revised on [...] will be performed. [facility] ([place]) Urine 10/07/2023 3:44 PM VIDEO CONTROL OPERATOR 10/07/2023 3:50 PM VIDEO CONTROL OPERATOR Sukhwinder Sanchez MD LAB MICROBIOLOGY - GENERAL ORD ERABLES Final Result [facility] ([place]) 1 [facility] Department [place] [address] * Protime-INR (10/07/2023 3:44 PM VIDEO CONTROL OPERATOR) PT 11.7 10.3 - 13.7 sec [facility] ([place]) INR 1.03 0.90 - 1.20 [facility] ([place]) Comment: Interpretive data Oral anticoagulant therapeutic ranges: Venous thromboembolism prophylaxis or treatment: 2.0-3.0 CARDIOLOGY Standard range: 2.0-3.0 High-intensity range: 2.5-3.5 Refer to indication-specific guidelines for appropriate target ranges for prosthetic heart valve replacement. Current interpretive data was last revised on 2019. Blood 10/07/2023 3:44 PM VIDEO CONTROL OPERATOR 10/07/2023 3:50 PM VIDEO CONTROL OPERATOR us Sukhwinder Sanchez MD LAB BLOOD ORDERABLES Final Res ult [facility] ([place]) 1 [facility] Department [place] [address] * Comprehensive metabolic panel (10/07/2023 3:44 PM VIDEO CONTROL OPERATOR) Sodium 135 135 - 145 mmol/L [facility] [...] 0.8 0.1 - 1.2 mg/dL [facility] ([place]) Protein, pl 7.2 6.5 - 8.5 g/dL [facility] ([place]) Albumin 4.3 3.5 - 5.0 g/dL [facility] ([place]) Alk phos 123 40 - 130 Units/L [facility] ([place]) ALT 20 7 - 55 Units/L [facility] ([place]) AST 16 10 - 50 Units/L [facility] ([place]) Comment:Slightly Hemolyzed S pecimen Blood 10/07/2023 3:44 PM VIDEO CONTROL OPERATOR 10/07/2023 3:50 PM VIDEO CONTROL OPERATOR us Sukhwinder Sanchez MD LAB BLOOD ORDERABLES Final Res ult Performing Organization Address City/[facility]/ZIP Co de Phone Number [facility] ([place] 1 [facility] Department [place] [address] * CBC with auto differential (10/07/2023 3:44 PM VIDEO CONTROL OPERATOR) WBC 9.3 3.8 - 9.9 K/cumm [facility] [...] [facility] ([place]) Blood 10/07/2023 3:44 PM VIDEO CONTROL OPERATOR 10/07/2023 3:50 PM VIDEO CONTROL OPERATOR us Sukhwinder Sanchez MD LAB BLOOD ORDERABLES Final Res ult [facility] ([place]) 1 [facility] Department [place] [address] * Surgical pathology (10/07/2023 11:06 AM VIDEO CONTROL OPERATOR) Tissue (Appendix) 10/07/2023 6:32 PM VIDEO CONTROL OPERATOR Narrative PATHOLOGY [facility] ([place]) - 10/09/2023 5:30 PM VIDEO CONTROL OPERATOR EPIC results best viewed via link to PDF [facility] Department of Pathology [address] [place] [id number] Note to Patients: This report may contain [...] explain the details. Final Report Patient Name: ??RACQUEL JADEN Condon Address: ??[address] [place] [address], ??[place], [place] [address] Gender: ??M : ??1970 (Age: 53) Service: ??Surgery Location: ??[facility] Hospital #: ??[id number] Patient Type: ??[facility] OBS Accession # ?[id number] Taken: ??10/07/2023 Received: ??10/08/2023 Accessioned: ??10/08/2023 Reported: [...] ??No muscular wall perforation is seen grossly. ??Convict Guard sections are submitted: ??Tip A1, mid section [...] by the Surgical Pathology Department at [facility] as part of an ongoing quality director program and in compliance with federally mandated [...] determined by the Surgical Pathology Department [facility]. ??It has not been cleared or approved by the U. S. Food and Drug Administration. Note for decalcified specimens: This assay has not been validated on decalcified tissues. Results should be interpreted with caution given the possibility of false negativity on decalcified specimens Ramos Fraga MD LAB PATHOLOGY OR DERABLES Final Result PATHOLOGY [facility] [place]) 1 [place] [address] documented in this encounter Visit Diagnoses Not on filedocumented in this encounter Admitting Diagnoses Diagnosis Status post appendectomy Other postprocedural status Acute appendicitis with localized peritonitis, without perforation, abscess, or gangrene Acute appendicitis Acute appendicitis without mention of peritonitis documented in this encounter Administered Medications Inactive Administered Medications - up to 3 most recent administrations Medication Order MAR Action Action Date Dose Rate Site BUPivacaine-EPINEPHrine (MARCAINE with EPI) 0.5 %-1:200,000 preservative free injection As needed, Starting on Sat10/07/23 at 1829, Intra-Op Given 10/07/2023 6:29 PM VIDEO CONTROL OPERATOR 5 mL Surgical Site buPROPion XL (WELLBUTRIN XL) 24 hour tablet 300 mg 300 mg, oral, Every morning, First dose on Sat10/08/23 at 0900, Do not crush, chew, cut, dissolve, open or otherwise manipulate tablet/capsule. Given 10/08/2023 9:10 AM VIDEO CONTROL OPERATOR 300 mg docusate sodium (COLACE) capsule 100 mg 100 mg, oral, 2 times daily, First dose on Sat10/07/23 at 2100, Indications: constipationIndications:con stipation Given 10/08/2023 9:10 AM VIDEO CONTROL OPERATOR 100 mg Given 10/07/2023 10:10 PM VIDEO CONTROL OPERATOR 100 mg enoxaparin (LOVENOX) syringe 40 mg 40 mg, subcutaneous, Daily (for enoxaparin), First dose on Sat10/07/23 at 2100, Indications: Deep Vein Thrombosis PreventionIndications:Deep Vein Thrombosis Prevention Given 10/07/2023 10:10 PM VIDEO CONTROL OPERATOR 40 mg Left Lower Abdomen fentaNYL (SUBLIMAZE) [...] more., Indications: PainIndications:Pain Given 10/07/2023 7:56 PM VIDEO CONTROL OPERATOR 25 mcg Given 10/07/2023 7:46 PM VIDEO CONTROL OPERATOR 25 mcg HYDROcodone-acetaminophen (NORCO) 5-325 mg per tablet 1 tablet 1 tablet, oral, Every 4 hours PRN, 1st line for pain, Starting on Sat10/08/23 at 0905, Indications: PainIndications:Pain Given 10/08/2023 1:28 PM VIDEO CONTROL OPERATOR 1 tablet Given 10/08/2023 9:10 AM VIDEO CONTROL OPERATOR 1 tablet HYDROmorphone (DILAUDID) injection 1 mg 1 mg, intravenous, Administer over 2 Minutes, Every 2 hours PRN, pain 7-10, Starting on Sat10/07/23 at 2017 Given 10/08/2023 5:32 AM VIDEO CONTROL OPERATOR 1 mg Given 10/08/2023 3:02 AM VIDEO CONTROL OPERATOR 1 mg Given 10/07/2023 11:57 PM VIDEO CONTROL OPERATOR 1 mg Lactated Ringer's (LR) infusion 30 mL/hr, intravenous, Continuous, Starting on Sat10/07/23 at 1745, Pre-Op Rate/Dose Verify 10/07/2023 6:08 PM VIDEO CONTROL OPERATOR 30 mL/hr New Bag 10/07/2023 5:17 PM VIDEO CONTROL OPERATOR 30 mL/hr 30 mL/hr Lactated Ringer's (LR) infusion 75 mL/hr, intravenous, Continuous, Starting on Sat10/07/23 at 2100 New Bag 10/07/2023 8:30 PM VIDEO CONTROL OPERATOR 75 mL/hr 75 mL/hr lisinopriL (PRINIVIL,ZESTRIL) tablet 5 mg 5 mg, oral, Nightly, First dose on Sat10/07/23 at 2100 Given 10/07/2023 10:10 PM VIDEO CONTROL OPERATOR 5 mg metoprolol XL (TOPROL-XL) extended release tablet 50 mg 50 mg, oral, Nightly, First dose on Sat10/07/23 at 2100, Tablets that are scored may be split, but do not crush, chew, dissolve, open or otherwise manipulate tablet/capsule. Given 10/07/2023 10:10 PM VIDEO CONTROL OPERATOR 50 mg ondansetron (ZOFRAN) injection 4 mg 4 mg, intravenous, Administer over 2 Minutes, Every 6 hours PRN, nausea, vomiting, Starting on Sat10/07/23 at 2016, Indications: Nausea and VomitingIndications:Nausea and Vomiting Given 10/08/2023 5:41 AM VIDEO CONTROL OPERATOR 4 mg Given 10/07/2023 8:48 PM VIDEO CONTROL OPERATOR 4 mg piperacillin-tazobactam (ZOSYN) 3.375 gram/65 mL in sodium chloride 0.9% (premix) 3.375 g 3.375 g, intravenous, at 130 mL/hr, Administer over 30 Minutes, Every 6 hours scheduled, First dose on Sat10/07/23 at 1615, Indications: Abdominal/Pelvic InfectionIndications:Abdominal/Pel monique Infection New Bag 10/08/2023 5:35 AM VIDEO CONTROL OPERATOR 3.375 g 130 mL/hr New Bag 10/07/2023 11:32 PM VIDEO CONTROL OPERATOR 3.375 g 130 mL/hr New Bag 10/07/2023 4:31 PM VIDEO CONTROL OPERATOR 3.375 g 130 mL/hr pramipexole (MIRAPEX) tablet 1.5 mg 1.5 mg, oral, 3 times daily, First dose on Sat10/07/23 at 2200 Given 10/08/2023 9:10 AM VIDEO CONTROL OPERATOR 1.5 mg Given 10/07/2023 10:10 PM VIDEO CONTROL OPERATOR 1.5 mg sodium chloride 0.9% infusion 125 mL/hr, intravenous, Continuous, Starting on Sat10/07/23 at 1542 New Bag 10/07/2023 4:14 PM VIDEO CONTROL OPERATOR 125 mL/hr 125 mL/hr sodium chloride 0.9% irrigation As needed, Starting on Sat10/07/23 at 1829, Intra-Op Given 10/07/2023 6:39 PM VIDEO CONTROL OPERATOR 1,000 mL Surgical Site Given 10/07/2023 6:29 PM VIDEO CONTROL OPERATOR 500 mL [place] rgical Site documented in this encounter Discontinued Medications [...] Recently Administered Medications Times are shown in VIDEO CONTROL OPERATOR. Scheduled Medication Order 10/06/2023 10/07/2023 10/08/2023 buPROPion [...] For 1 dose, Intra-Op, Indications: Prophylaxis, Surgical 1825 (Given - Provider: Kole Marley CRNA) docusate sodium (COLACE) capsule 100 mg 100 mg, oral, 2 times daily, First dose on Sat10/07/23 at 2100, Indications: constipation 2210 (Given - Provider: Chayito Horta RN) 0910 (Given - Provider: Lily Murray RN) enoxaparin (LOVENOX) syringe 40 mg 40 mg, subcutaneous, Daily (for enoxaparin), First dose on Sat10/07/23 at 2100, Indications: Deep Vein Thrombosis Prevention 221 (Given - Provider: Chayito Horta RN) lisinopriL [...] (Due: Stopped - Provider: Laura Covington RN)2010 (NOV Unhold - Provider: Automatic Transfer Provider)2332 (New [...] IV Infusing)1344 (Not Given - Provider: Lily Murray RN - Reason: IV Infusing) Continuous Medication Order 10/06/2023 10/07/2023 10/08/2023 Lactated Ringer's (LR) infusion (CANCELED) 30 mL/hr, intravenous, Continuous, Starting on Sat10/07/23 at 1745, Pre-Op 1717 (New Bag - Provider: Daniella Hooper RN)1808 (Rate/Dose Verify - Provider: Kole Marley CRNA)1930 (Anesthesia Volume Adjustment - Provider: Kole Marley CRNA) 0723 (Stopped - Provider: Lily Murray, TERESO) Lactated Ringer's (LR) infusion 75 mL/hr, intravenous, Continuous, Starting on Sat10/07/23 at 2100 2030 (New Bag - Provider: Chayito Horta RN) 1848 (Due: Stopped) sodium chloride 0.9% infusion (CANCELED) 125 mL/hr, intravenous, Continuous, Starting on Sat10/07/23 at 1542 1614 (New Bag - Provider: Laura Covington, TERESO) 0722 (Stopped - Provider: Lily Murray, TERESO) [...] pain score 5/10 or more., Indications: Pain 194 (Given - Provider: Susy Garber RN)195 (Given - Provider: Susy Garber RN) HYDROcodone-acetaminophen (NORCO) 5-325 mg per tablet 1 tablet 1 tablet, oral, Every 4 hours PRN, 1st line for pain, Starting on Sat10/08/23 at 0905, Indications: Pain 0910 (Given - Provid er: Lily Murray RN)1328 (Given - Provider: Lily Murray RN) HYDROmorphone (DILAUDID) injection 1 mg (CANCELED) [...] Horta RN) 0541 (Given - Provider: Chayito Horta RN) sodium chloride 0.9% flush 0.5-20 mL 0.5-20 mL, intra-catheter, As needed, line care, Starting on Sat10/07/23 at 2016, Flush volume based on line type and size. Flush before and after each use. sodium chloride 0.9% irrigation (CANCELED) As needed, Starting on Sat10/07/23 at 1829, Intra-Op 1829 (Given - Provider: Ramos Fraga MD - Comment: On sterile field for irrigation)183 (Given - Provider: Ramos Fraga MD - Comment: For suction weather forecaster) documented in this encounter Orders Medications Ordered That Aden ht Not Have Been Administered Count Last Ordered Date First Ordered Date Carrier Fluids for Secondary Infusion - 0.9% [...] chloride 0.9% flush 0.5-20 mL 2 09/10 Nursing Count Last Ordered Date First Orde red Date DISCHARGE INSTRUCTIONS 2 10/08/2023 Admission Count Last Ordered Date First Orde red Date INITIATE OBSERVATION SERVICES 2 10/07/2023 Transfer Count Last Ordered Date First Orde red Date TRANSFER PATIENT TO NEW UNIT 1 10/07/2023 Discharge Count Last Ordered Date First Orde red Date DISCHARGE PATIENT 1 10/08/2023 documented in this encounter Care Teams Web Applications Administrator Relationship Specialty Start Date End Date La Núñez MD [address] [facility] [address] LUCAS [address] [place] [id number] PCP - General Family Medicine 10/02/22 Mariaelena Zaidi MD Consulting Physician Sleep Medicine 07/12/21 documented as of this encounter
--- OUTSIDE RECORDS SUMMARY | 2024-09-17 12:48 | XMS_ITS | Encounter Summary ---
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 Almaguer ([facility]) reporting critical result. Results of CT of abdomen/pelvis show patient has acute appendicitis with enlarged lymph nodes. Lymph nodes should be followed up on in a couple months. Consulted with Dr. Prince who advises patient report to the emergency room immediately. Phoned patient and advised him to go to ED immediately and to not eat or drink anything. He stated he would return to [facility] immediately. B2B SALES REPRESENTATIVE * Telephone Encounter - La Kearney MD - 10/07/2023 2:26 PM B2B SALES REPRESENTATIVE No problem. Ok to change order B2B SALES REPRESENTATIVE * Telephone Encounter - Marcela Mcgowan - 10/07/2023 1:27 PM CST Fyi-per ct they said would have to order ct abd/pelvis for the dx used. thanks B2B SALES REPRESENTATIVE documented in this encounter Plan of Treatment Not on file documented as of this encounter Visit Diagnoses Not on filedocumented in this encounter Care Teams Mail Processing Machine Operator Relationship Specialty Start Date End Date La Kearney MD [address] [place] [address] [place] [address] PCP - General Family Medicine 10/02/22 Mariaelena Zaidi MD Consulting Physician Sleep Medicine 07/12/21 documented as of this encounter
--- OUTSIDE RECORDS SUMMARY | 2024-09-17 12:49 | XMS_ITS | Encounter Summary ---
Author Organization [facility] Healthcare Address [address] [place] [address] Care Team Providers Care Time Study Clerk Name Role Phone Mariaelena Zaidi MD Unavailable La Kearney MD Primary Care Provide r Reason for Visit * Reason Onset Date Comments Medical Question/Miscellaneous 06/10/2023 Encounter Details Date Type Department Care Team (Late st Contact Info) Description 06/10/2023 Telephone [facility] Medical [facility] Primary Care at [address] [place] [address] La Kearney MD [address] [place] [address] [address] [place] [address] Medical Question/Miscellaneous Social History Tobacco Use Types Packs/Day Years Used Date Smoking Tobacco: Never Smokeless Tobacco: Former Chew Quit: 08/2018 Comments:chews, not interest ed in counseling Alcohol Use Standard Drinks/Week Comments Yes 0 (1 standard drink = 0.6 oz pur e alcohol) can of beer a month PHQ-2 Answer Date Recorded PHQ-2 Total Score (If total score is 3 or more points, staff should administer the PHQ-9) 0 06/06/2023 Sex and Gender Information Value Date Recorded Sex Assigned at Not on file 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 Cs referenced med list to let her know when the medications was sent. Patient want to speak with Dr Prosper Hannon bout the patient medication. Patient has been without his medication for 5 days. Cs will send as urgent message. Caller???s Call back #: [phone] Does message need to be routed? Yes-Action Needed documented in this encounter Plan of Treatment Not on file documented as of this encounter Visit Diagnoses Not on filedocumented in this encounter Care Teams Time Study Clerk Relationship Specialty Start Date End Date La Kearney MD [address] [place] [address] DR LUCAS [address] [place] [address] PCP - General Family Medicine 10/02/22 Mariaelena Zaidi MD Consulting Physician Sleep Medicine 07/12/21 documented as of this encounter
--- OUTSIDE RECORDS SUMMARY | 2024-09-17 12:49 | XMS_ITS | Encounter Summary ---
Author Organization [facility] Healthcare Address [address] [place] [address] Care Team Providers Care Cleaner Name Role Phone Mariaelena Zaidi MD Unavailable La Kearney MD Primary Care Provide r Encounter Details Date Type Department Care Team (Late st Contact Info) Description 06/26/2023 Plan of Care Documentation [facility] Physical Therapy - [address] [place] [address] Social History Tobacco Use Types Packs/Day Years [...] on file 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 OUTBOUND SALES REPRESENTATIVE Gender Identity Not on file Sexual Orientation Not on file documented as of this encounter Plan of Treatment Not on file documented as of this encounter Visit Diagnoses Not on filedocumented in this encounter Care Teams Cleaner Relationship Specialty Start Date End Date La Kearney MD [address] [place] [address] [facility] [place] [address] PCP - General Family Medicine 10/02/22 Mariaelena Zaidi MD Consulting Physician Sleep Medicine 07/12/21 documented as of this encounter
--- OUTSIDE RECORDS SUMMARY | 2024-09-17 12:49 | XMS_ITS | Encounter Summary ---
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 Gender Identity Not on file Sexual Orientation [...] 1 TABLET EVERY MORNING 90 tablet 1 11/12/2022 06/10/20 23 lisinopriL (PRINIVIL,ZESTRIL) 5 mg tabletIndications:E ssential hypertension TAKE 1 TABLET DAILY 90 tablet 3 02/08/2022 06/10/20 23 metoprolol XL (TOPROL-XL) 25 mg extended release tabletIndications:E ssential hypertension TAKE 1 TABLET DAILY 90 tablet 3 02/08/2022 06/10/20 23 oxybutynin XL (Ditropan XL) 10 mg 24 hr tabletIndications:B ladder Hyperactivity Take 1 tablet (10 mg total) by mouth daily for 20 days 20 tablet 04/12/2022 04/14/20 24 pramipexole (MIRAPEX) 1.5 mg tabletIndications:R estless legs syndrome Take 1 tablet (1.5 mg total) by mouth 3 (three) times a day 90 tablet 1 06/06/2023 06/10/20 23 pravastatin (PRAVACHOL) 40 mg tabletIndications:H yperlipidemia, unspecified hyperlipidemia type Take 1 tablet (40 mg total) by mouth daily 90 tablet 1 06/06/2023 10/01/19 24 documented as of this encounter Discharge Disposition Disposition Code Departure Means Destination Discharge to home or self care documented in this encounter Plan of Treatment Not on file documented as of this encounter Procedures Procedure Name Priority Date/Time Associated Diagnosis Comments XR SPINE LUMBAR COMPLETE 4 OR MORE VIEWS Schedule Routine, Read Routine (OP Routine) 06/08/2023 9:23 AM CDT Acute bilateral low back pain with sciatica, sciatica laterality unspecified XR SPINE CERVICAL COMPLETE 4 OR 5 VW Schedule Routine, Read Routine (OP Routine) 06/08/2023 9:23 AM CDT Neck pain documented in this encounter Results * XR Spine Lumbar Complete 4 Or More (06/08/2023 9:23 AM CDT) Anatomical Region Laterality Modality Spine N/A Computed Radiogr aphy 06/08/2023 5:48 PM CDT Narrative 06/08/2023 5:53 PM CDT EXAM DESCRIPTION: XR SPINE LUMBAR 4 OR MORE VIEWS; XR SPINE CERVICAL COMPLETE 4 OR 5 VW REASON FOR STUDY: back pain ?? Lower back pain with tightness x 1 month. No radiating pain. ??Bending causes issues. ??No surgery. No injury ??; neck pain ?? Neck pain x 1 year. ??Loss of range of motion intermittently. ??No radiating pain. ?? No surgery. ?[place] years ago [place] ?? FINDINGS: Five views lumbar spine and five views cervical spine submitted with comparison 05/09/2022. Cervical spine: There are no fractures. ??Cervical kyphosis is present. ??There is no prevertebral soft tissue swelling. ??There is mild C3-C5 and moderate C5-C7 degenerative disc disease. ??There is mild bilateral C5-C7 foraminal impingement. ??There is mild facet osteoarthritis. Lumbar spine: No acute fractures are identified. ??There is mild retrolisthesis of L3 on L4. ?? There is acsz-wm-azpfyvqz L2-S1 degenerative disc disease, greatest at L2-L3 and L4-L5. ??Inferior lumbar facet osteoarthritis is present. ??Left iliac enostosis is noted. ?? There is inferior lumbar facet osteoarthritis. IMPRESSION: Mild C3-C5 and moderate C5-C7 degenerative disc disease with mild bilateral C5-C7 foraminal impingement. Ayhm-tz-ygbugwkm L2-S1 degenerative disc disease, greatest at L2-L3 and L4-L5. THIS IS AN ELECTRONICALLY VERIFIED FINAL REPORT 06/08/2023 5:53 PM - Electronically signed by ??Michael Xiong M.D. MF: CHANI D: ??06/08/2023 5:53 PM T: ??06/08/2023 5:53 PM Report ID: [id number] Reading Location: ??[id number] Procedure Note Michael Xiong MD - 06/08/2023 EXAM DESCRIPTION: XR SPINE LUMBAR 4 OR MORE VIEWS; XR SPINE CERVICAL COMPLETE 4 OR 5 VW REASON FOR STUDY: back pain Lower back pain with tightness x 1 month. No radiating pain. Bendingcauses issues. No surgery. No injury ; neck pain Neck pain x 1 year. Loss of range of motion intermittently. No radiating pain. No surgery. Fell out of tree years ago and an injury in [employer] 30 years ago. FINDINGS: Five views lumbar spine and five views cervical spine submitted with comparison 05/09/2022. Cervical spine: There are no fractures. Cervical kyphosis is present. There is no prevertebral soft tissue swelling. There is mild C3-C5 and moderate C5-C7 degenerative disc disease. There is mild bilateral C5-C7 foraminal impingement. There is mild facet osteoarthritis. Lumbar spine: No acute fractures are identified. There is mild retrolisthesis of L3 onL4. There is bygk-py-pjalnpru L2-S1 degenerative disc disease, greatest atL2-L3 and L4-L5. Inferior lumbar facet osteoarthritis is present. Left iliac enostosis is noted. There is inferior lumbar facet osteoarthritis. IMPRESSION: Mild C3-C5 and moderate C5-C7 degenerative disc disease with mildbilateral C5-C7 foraminal impingement. Gjlj-vg-mkaoqmuj L2-S1 degenerative disc disease, greatest at L2-L3 andL4-L5. THIS IS AN ELECTRONICALLY VERIFIED FINAL REPORT 06/08/2023 5:53 PM - Electronically signed by Michael Xiong M.D. MF: CHANI Report ID: [id number] Reading Location: [place] [address] La Kearney MD IMG XR PROCEDURES Fin al Result * XR Spine Cervical Complete 4 Or 5 Vw (06/08/2023 9:23 AM CDT) Anatomical Region Laterality Modality Spine N/A Computed Radiogr aphy 06/08/2023 5:48 PM CDT Narrative 06/08/2023 5:53 PM CDT EXAM DESCRIPTION: XR SPINE LUMBAR 4 OR MORE VIEWS; XR SPINE CERVICAL COMPLETE 4 OR 5 VW REASON FOR STUDY: back pain ?? Lower back pain with tightness x 1 month. No radiating pain. ??Bending causes issues. ??No surgery. No injury ??; neck pain ?? Neck pain x 1 year. ??Loss of range of motion intermittently. ??No radiating pain. ?? No surgery. ?[place] years ago and [place]. ?? FINDINGS: Five views lumbar spine and five views cervical spine submitted with comparison 05/09/2022. Cervical spine: There are no fractures. ??Cervical kyphosis is present. ??There is no prevertebral soft tissue swelling. ??There is mild C3-C5 and moderate C5-C7 degenerative disc disease. ??There is mild bilateral C5-C7 foraminal impingement. ??There is mild facet osteoarthritis. Lumbar spine: No acute fractures are identified. ??There is mild retrolisthesis of L3 on L4. ?? There is cbjx-qv-jxneqjdr L2-S1 degenerative disc disease, greatest at L2-L3 and L4-L5. ??Inferior lumbar facet osteoarthritis is present. ??Left iliac enostosis is noted. ?? There is inferior lumbar facet osteoarthritis. IMPRESSION: Mild C3-C5 and moderate C5-C7 degenerative disc disease with mild bilateral C5-C7 foraminal impingement. Ggjl-pb-qwiyqqkp L2-S1 degenerative disc disease, greatest at L2-L3 and L4-L5. THIS IS AN ELECTRONICALLY VERIFIED FINAL REPORT 06/08/2023 5:53 PM - Electronically signed by ??Michael Xiong M.D. MF: CHANI D: ??06/08/2023 5:53 PM T: ??06/08/2023 5:53 PM Report ID: [id number] Reading Location: ??[id number] Procedure Note Michael Xiong MD - 06/08/2023 EXAM DESCRIPTION: XR SPINE LUMBAR 4 OR MORE VIEWS; XR SPINE CERVICAL COMPLETE 4 OR 5 VW REASON FOR STUDY: back pain Lower back pain with tightness x 1 month. No radiating pain. Bendingcauses issues. No surgery. No injury ; neck pain Neck pain x 1 year. Loss of range of motion intermittently. No radiating pain. No surgery. Fell out of tree years ago and an injury in [employer] 30 years ago. FINDINGS: Five views lumbar spine and five views cervical spine submitted with comparison 05/09/2022. Cervical spine: There are no fractures. Cervical kyphosis is present. There is no prevertebral soft tissue swelling. There is mild C3-C5 and moderate C5-C7 degenerative disc disease. There is mild bilateral C5-C7 foraminal impingement. There is mild facet osteoarthritis. Lumbar spine: No acute fractures are identified. There is mild retrolisthesis of L3 onL4. There is pfbf-hy-qlwzavok L2-S1 degenerative disc disease, greatest atL2-L3 and L4-L5. Inferior lumbar facet osteoarthritis is present. Left iliac enostosis is noted. There is inferior lumbar facet osteoarthritis. IMPRESSION: Mild C3-C5 and moderate C5-C7 degenerative disc disease with mildbilateral C5-C7 foraminal impingement. Tvej-yu-elfjsidr L2-S1 degenerative disc disease, greatest at L2-L3 andL4-L5. THIS IS AN ELECTRONICALLY VERIFIED FINAL REPORT 06/08/2023 5:53 PM - Electronically signed by Michael Xiong M.D. MF: CHANI Report ID: [id number] Reading Location: [place] [address] La Kearney MD IMG XR PROCEDURES Fin al Result documented in this encounter Visit Diagnoses Diagnosis Neck pain Cervicalgia Acute bilateral low back pain with sciatica, sciatica laterality unspecified documented in this encounter Care Teams Frankfurter Inspector Relationship Specialty Start Date End Date La Kearney MD [address] [place] [address] DR LUCAS [address] [place] [address] PCP - General Family Medicine 10/02/22 Mariaelena Zaidi MD Consulting Physician Sleep Medicine 07/12/21 documented as of this encounter
--- OUTSIDE RECORDS SUMMARY | 2024-09-17 12:49 | XMS_ITS | Encounter Summary ---
Author Organization [facility] Healthcare Address [address] [place] [address] Care Team Providers Care Chromium Plater Name Role Phone Mariaelena Zaidi MD Unavailable La Kearney MD Primary Care Provide r Reason for Visit * Reason Comments PT Treatment * Consultation (Routine) - Closed Specialty Diagnoses / Procedures Referred By Contac t Referred To Contact Physical Therapy Diagnoses Neck pain Acute bilateral low back pain with sciatica, sciatica laterality unspecified La Kearney MD [address] [place] [address] Phone: tel: fax: [address] [phone] Referral ID Status Reason Start Date Expiration Date V isits Requested Visits Authorized [id number] Closed Evaluate and Treat 06/07/2023 07/06/2024 24 24 Encounter Details Date Type Department Care Team (Late st Contact Info) Description 07/08/2023 4:15 PM CDT Therapy [facility] Physical Therapy - [address] [place] [address] Jeanne Fox, PT Neck pain (Primary Dx); Acute bilateral low back pain with sciatica, sciatica laterality unspecified Social History Tobacco Use Types Packs/Day Years [...] on file 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 Neck pain 723.1 M54.2 2. Acute bilateral low back pain with sciatica, sciatica laterality unspecified 724.2 M54.40 724.3 Subjective: Patient reports he felt a lot better after his evaluation. He states his neck stayed feeling better for a few days, his back felt better for 1 day. Objective: See treatment provided Treatment Provided: Pre Mod stimulation to low back and neck with hot packs Manual traction with sub occipital release Stretching for upper trap Manual stretching hips and low back Traction over turkmen ball BKFO blue tubing LTR Assessment: Pt with good tolerance to tx. Reduction in symptoms following modalities and manual therapy. Plan: Continue progressing as tolerated. Time in: 1605 Time out: 1655 Jeanne Fox, PT, DPT, OCS, COMT documented in this encounter Plan of Treatment Not on file documented as of this encounter Visit Diagnoses Diagnosis Neck pain- Primary Cervicalgia Acute bilateral low back pain with sciatica, sciatica laterality unspecified documented in this encounter Care Teams Chromium Plater Relationship Specialty Start Date End Date La Kearney MD [address] [place] [address] DR LUCAS [address] [place] [id number] PCP - General Family Medicine 10/02/22 Mariaelena Zaidi MD Consulting Physician Sleep Medicine 07/12/21 documented as of this encounter
--- OUTSIDE RECORDS SUMMARY | 2024-09-17 12:49 | XMS_ITS | Encounter Summary ---
Author Organization [facility] Healthcare Address [address] [place] [address] Care Team Providers Care Bag Sealer Name Role Phone Mariaelena Zaidi MD Unavailable La Kearney MD Primary Care Provide r Reason for Visit * Reason Comments Palpitations Encounter Details Date Type Department Care Team (Late st Contact Info) Description 07/28/2023 8:54 PM ONLINE ADVERTISING DIRECTOR - 07/29/2023 12:43 AM ONLINE ADVERTISING DIRECTOR Emergency [facility] Emergency Department [address] [place] [address] Kole Devries MD [address] [place] [phone] Berenice South MD [address] [place] [id number] Palpitations (Primary Dx) Discharge Disposition: Discharge to home [...] on file 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 ONLINE ADVERTISING DIRECTOR Gender Identity Not on file Sexual Orientation Not on file documented as of this encounter Last Filed Vital Signs Vital Sign Reading Time Taken Comments Blood Pressure 122/69 07/29/2023 12:30 AM ONLINE ADVERTISING DIRECTOR Pulse 57 07/29/2023 12:30 AM ONLINE ADVERTISING DIRECTOR Temperature 36.5 ??C (97.7 ??F) 07/28/2023 8:45 PM CS T Respiratory Rate 21 07/29/2023 12:30 AM ONLINE ADVERTISING DIRECTOR Oxygen Saturation 97% 07/29/2023 12:30 AM ONLINE ADVERTISING DIRECTOR Inhaled Oxygen Concentration - - Weight 122.5 kg (270 lb) 07/28/2023 8:45 PM ONLINE ADVERTISING DIRECTOR Height 188 cm (6' 2 ) 07/28/2023 8:45 PM ONLINE ADVERTISING DIRECTOR Body Mass Index 34.67 07/28/2023 8:45 PM ONLINE ADVERTISING DIRECTOR documented in this encounter Discharge Instructions * Discharge Instructions* Berenice South MD - 07/29/2023 12:30 AM ONLINE ADVERTISING DIRECTOR Please call your primary care physician or pug mill operator helper today for further workup of palpitations. If they return you can take metoprolol immediate release 12.5 mg. Your labs and electrolytes looked normal today. Your chest x-ray was clear. Return if worse, chest pain, shortness of breath, weaknessor dizziness. NE ADVERTISING DIRECTOR * Attachments The following attachments cannot be sent through Care Everywhere. * Palpitations (Hebrew) documented in this encounter Medications at Time of Discharge tadalafiL (CIALIS) 20 mg tabletIndications:E rectile dysfunction due to arterial insufficiency Take 1 tablet (20 mg total) by mouth daily as needed for erectile dysfunction Max 1 daily. 20 tablet 3 01/29/2023 buPROPion XL (WELLBUTRIN XL) 300 mg 24 hr tablet Take 1 tablet (300 mg total) by mouth every morning 90 tablet 06/10/2023 09/09/19 24 lisinopriL (PRINIVIL,ZESTRIL) 5 mg tabletIndications:E ssential hypertension Take 1 tablet (5 mg total) by mouth nightly 90 tablet 06/10/2023 09/09/19 24 metoprolol tartrate (LOPRESSOR) 25 mg immediate release tablet Take 0.5 tablets (12.5 mg total) by mouth once as needed (palpitations) for up to 10 doses 5 tablet 07/29/2023 10/07/19 24 metoprolol XL (TOPROL-XL) 25 mg extended release tabletIndications:E ssential hypertension Take 1 tablet (25 mg total) by mouth nightly 90 tablet 06/10/2023 08/30/20 23 oxybutynin XL (Ditropan XL) 10 mg [...] 10/01/19 24 documented as of this encounter Ordered Prescriptions Prescription Sig Dispense Quantity Refills Last Filled Start Date End Date metoprolol tartrate (LOPRESSOR) 25 mg immediate release tablet Take 0.5 tablets (12.5 mg total) by mouth once as needed (palpitations ) for up to 10 doses 5 tablet 07/29/2023 4 documented in this encounter Discharge Disposition Disposition Code Departure Means Destination Comment s Discharge to home or self care documented in this encounter ED Notes * Kole Devries MD - 07/28/2023 8:58 PM CST HPI Chief Complaint Patient presents with ??? Palpitations HPI 07/28/2023 8:58 PM Jaden De La Torre is a 52 y.o. male nonsmoker with a h/o HTN, GERD, HLD who presents to the ED with intermittent palpitations over the last week with onset of SOB today. Pt says his symptoms last for afew hours at a time, with no known triggers to cause it. No exacerbating or alleviating factors mentioned. Pt denies any associated chest pain, dizziness or nausea. No other complaints at this time. Past Medical History: Diagnosis Date ??? Anxiety disorder Anxiety ??? Depression Depression ??? Enlarged prostate ??? Erectile dysfunction ??? Generalized abdominal pain 06/27/2019 ??? GERD (gastroesophageal reflux disease) ??? Hemorrhoids ??? Hyperlipidemia ??? Hypertension ??? Hypoglycemia ??? Palpitation ??? Rectal pain 05/25/2020 Added automatically from request for surgery [id number] ??? Sleep apnea ??? Urinary retention Past [...] interested in counseling Substance and Sexual Activity ??? Drug use: Yes Types: Alcohol Comment: 18 pack beer once weekly ??? Sexual activity: Defer Alcohol Use: Not on file Review of Systems Review of Systems Constitutional: Negative for chills and fever. HENT: Negative for ear pain and sore throat. Eyes: Negative for pain and visual disturbance. Respiratory: Positive for shortness of breath. Negative for cough. Cardiovascular: Positive for palpitations. Negative for chest pain. Gastrointestinal: Negative for abdominal pain and vomiting. Genitourinary: Negative for dysuria and hematuria. Musculoskeletal: Negative for arthralgias and back pain. Skin: Negative for color change and rash. Neurological: Negative for seizures and syncope. All other systems reviewed and are negative. Physical Exam ED Triage Vitals [07/28/232044] Temp Pulse Resp BP SpO2 36.5 ??C (97.7 ??F) 80 18 132/82 97 % Temp src Heart Rate Source Patient Position BP Location FiO2 (%) -- -- -- -- -- Height Height Method Weight Weight Method 1.88 m (6' 2 ) -- 122.5 kg (270 lb) -- Physical Exam Vitals and nursing note reviewed. Constitutional: General: He is not in acute distress. Appearance: He is well-developed. HENT: Head: Normocephalic and atraumatic. Eyes: Conjunctiva/sclera: Conjunctivae normal. Cardiovascular: Rate and Rhythm: Normal rate. Rhythm irregular. Heart sounds: No murmur heard. Comments: Occasional ectopic beats Pulmonary: Effort: Pulmonary effort is normal. No respiratory distress. Breath sounds: Normal breath sounds. Abdominal: Palpations: Abdomen is soft. Tenderness: There is no abdominal tenderness. Musculoskeletal: General: No swelling. Cervical back: Neck supple. Skin: General: Skin is warm and dry. Capillary Refill: Capillary refill takes less than 2 seconds. Neurological: Mental Status: He is alert. Psychiatric: Mood and Affect: Mood normal. Procedures Labs Reviewed - No data to display No orders to display BP 132/82 Pulse 80 Temp 36.5 ??C (97.7 ??F) Resp 18 Ht 188 cm (6' 2 ) Wt 122.5 kg (270 lb) SpO2 97% BMI 34.67 kg/m?? MDM Number of Diagnoses or Management Options Diagnosis management comments: 52-year-old male presents with palpitations for 1 week. They occur randomly and for random amounts of time. Apparently today or yesterday he had at least a 3 hour episode of palpitations. He has not had any chest pain. He has no history of cardiac disease or stroke. No cough or cold symptoms no shortness of breath no fevers or chills Differential diagnosis: Arrhythmia, AFib, PVCs, electrolyte abnormalities, acute coronary syndrome Plan: Evaluate with labs EKG chest x-ray surveillance system monitor admission if necessary, medications if necessary. Amount and/or Complexity of Data Reviewed Clinical lab tests: ordered and reviewed Tests in the radiology section of CPT??: ordered and reviewed Tests in the medicine section of CPT??: ordered and reviewed Review and summarize past medical records: yes Independent visualization of images, tracings, or specimens: yes Risk of Complications, Morbidity, and/or Mortality Presenting problems: moderate Diagnostic procedures: moderate Management options: moderate Patient Progress Patient progress: stable ED Course as of 07/29/23 0027 Time: 07/29 26 Comment: Ectopy has resolved. Pt is sinus bradycardic now. By: Berenice South MD Final diagnoses: None This note is prepared by Nicholas Marrero, acting as a scribe for Dr. Devries. I electronically signed this note at 8:58 PM on 07/28/2023. I, Dr. Devries, have personally performed the services described in the documentation, reviewed and edited the documentation which was dictated to the scribe in my presence, and it accurately records my words and actions. Nicholas Marrero 07/28/232117 Kole Devries MD 07/28/232147 NE ADVERTISING DIRECTOR * Peter Blandon RN - 07/28/2023 8:44 PM CST Patient arrives to the ED with complaints of heart palpitations that began last week but went away.Patient states they came back today and he has intermittent shortness of breath. Patient denies chest pain. NE ADVERTISING DIRECTOR documented in this encounter Miscellaneous Notes * ED Re-evaluation Note - Kole Devries MD - 07/28/2023 10:07 PM ONLINE ADVERTISING DIRECTOR ED Re-evaluation Assumed care from Kayce. Summary: Pt been experiencing intermittent palpitations for 1 week. Pt takes 25 mg metoprolol. Pt denies chest pain. EKG read pending. No pug mill operator helper. BP 122/69 Pulse 57 Temp 36.5 ??C (97.7 ??F) Resp 21 Ht 188 cm (6' 2 ) Wt 122.5 kg (270 lb) SpO2 97% BMI 34.67 kg/m?? PE: Labs Reviewed COMPREHENSIVE METABOLIC PANEL - Abnormal Result Value Sodium 139 Potassium, pl 3.5 Chloride 104 CO2 22 Anion gap 13 BUN 11 Creatinine 1.07 Glucose 164 Calcium 9.0 Bilirubin, total 0.3 Protein, pl 6.1 (*) Albumin 4.0 Alk phos 106 ALT 23 AST 20 MAGNESIUM Magnesium 2.3 CBC WITH AUTO DIFFERENTIAL WBC 4.8 Hgb 13.9 Hct 40.1 Plt 177 MPV 10.0 RBC 4.31 MCV 93.0 MCH 32.3 MCHC 34.7 RDW CV 12.2 RDW SD 42.2 NRBC abs 0.00 PRO B-TYPE NATRIURETIC PEPTIDE NT-proBNP 193 DIFFERENTIAL AUTO Neutrophil abs 2.6 Imm gran abs 0.0 Lymphocyte abs 1.6 Monocyte abs 0.4 Eosinophil abs 0.2 Basophil abs 0.0 Neutrophil pct 53.2 Imm gran pct 0.8 Lymphocyte pct 34.0 Monocyte pct 8.1 Eosinophil pct 3.1 Basophil pct 0.8 EGFR eGFR 82 XR Chest 1 Vw Portable Final Result ED Course as of 08/03/23 1417 Time: 07/29 26 Comment: Ectopy has resolved. Pt is sinus bradycardic now. By: Berenice South MD 2:17 PM Rechecked the patient- The patient is resting comfortably and feeling better. I discussed the results of the diagnostic studies, my clinical impression, and the plan for further treatment with the patient. The patient agrees with the plan and discharge at this time, all questions addressed. The patient is medically stable for discharge at this time. I have given the patient instructions regarding his diagnosis, expectations, follow up, and return precautions. I explained to the patient that emergent conditions may arise and to return to the ER for new, worsening, or any persistent conditions. I've explained the importance of following up with h is/her Primary Care Physician- (or the referral physician listed below) as instructed. The patient verbalized understanding of the discharge instructions. New medications: Discharge Medication List as of 07/29/2023 12:30 AM START taking these medications Details metoprolol tartrate (LOPRESSOR) 25 mg immediate release tablet Take 0.5 tablets (12.5 mg total) by mouth once as needed (palpitations) for up to 10 doses, Starting 07/29/2023, Normal I have advised the patient to follow up with the information as noted below Contact Information for Follow-ups La Kearney MD Specialty: Family Medicine Relationship: PCP - General [address] [place] [place] [place] [id number] Next Steps: Call today Instructions: For follow-up Anoop Pablo MD Specialty: Cardiovascular Disease, Internal Medicine, Interventional Cardiology, Preventative Medicine [address] [place] [address] Next Steps: Call today Instructions: For palpitations and Holter monitor Disposition: Discharged Plan: Diagnosis Palpitations This note is prepared by Wes Golden, acting as a scribe for Berenice South MD. I electronically signed this note at 2:17 PM on 08/03/2023. I, Berenice South MD, have personally performed the services described in the documentation, reviewed and edited the documentation which was dictated to the scribe in my presence, and it accurately records my words and actions. Wes Golden 07/28/232207 Wes Golden 07/28/232210 Wes Golden 07/28/23 2347 Kole Devries MD 08/03/23 1417 NE ADVERTISING DIRECTOR documented in this encounter Plan of Treatment Not on file documented as of this encounter Procedures Procedure Name Priority Date/Time Associated Diagnosis Comments ECG 12-LEAD STAT 07/28/2023 9:52 PM ONLINE ADVERTISING DIRECTOR XR CHEST 1 VIEW ED 07/28/2023 9:34 PM ONLINE ADVERTISING DIRECTOR EGFR STAT 07/28/2023 9:28 PM ONLINE ADVERTISING DIRECTOR DIFFERENTIAL AUTO STAT 07/28/2023 9:2 8 PM ONLINE ADVERTISING DIRECTOR PRO B-TYPE NATRIURETIC PEPTIDE STAT 07/28/2023 9:28 PM ONLINE ADVERTISING DIRECTOR CBC WITH AUTO DIFFERENTIAL STAT 07/28/2023 9:28 PM ONLINE ADVERTISING DIRECTOR MAGNESIUM Routine 07/28/2023 9:28 PM ONLINE ADVERTISING DIRECTOR COMPREHENSIVE METABOLIC PANEL STAT 07/28/2023 9:28 PM ONLINE ADVERTISING DIRECTOR ECG 12-LEAD Routine 07/28/2023 8:53 PM ONLINE ADVERTISING DIRECTOR documented in this encounter Results * ECG 12 lead (07/28/2023 9:52 PM ONLINE ADVERTISING DIRECTOR) 07/28/2023 9:52 PM ONLINE ADVERTISING DIRECTOR Narrative [facility] - 07/29/2023 7:52 AM ONLINE ADVERTISING DIRECTOR Vent Rate: 66 bpm RR Interval: 898 msec NV Interval: 170 msec QRS Duration: 99 msec QT Interval: 399 msec QTC Interval: 413 msec P-R-T [place]: 45 - 14 - 29 degrees IMPRESSION: SINUS RHYTHM WITH OCCASIONAL SUPRAVENTRICULAR PREMATURE COMPLEXES POSSIBLE LEFT ATRIAL ENLARGEMENT ??[-0.1mV P-WAVE IN V1/V2] Compared to prior EKG, PACs are now less frequent. Electronically Signed By: Dr Anoop Pablo us Kole Devries MD ECG ORDERABLES Final R esult [facility] * XR Chest 1 Vw Portable (07/28/2023 9:34 PM ONLINE ADVERTISING DIRECTOR) Anatomical Region Laterality Modality Body, Chest N/A Computed Radiogr aphy 07/28/2023 10:0 0 PM ONLINE ADVERTISING DIRECTOR Narrative 07/28/2023 10:01 PM ONLINE ADVERTISING DIRECTOR EXAM DESCRIPTION: XR CHEST 1 VIEW REASON FOR STUDY: SOB ?? Patient arrives to the ED with complaints of heart palpitations that began last week but went away. Patient states they came back today and he has intermittent shortness of breath. Patient denies chest pain. ? TECHNIQUE: 1 ??radiographic view(s) of the chest. COMPARISON: 08/24/2018 FINDINGS: LUNGS: ??No focal opacity, pleural effusion, or pneumothorax. ?? Poor inspiratory result and elevation the right hemidiaphragm with discoid atelectasis at the right lung base. HEART/MEDIASTINUM: ??Cardiac silhouette normal in size. Mediastinal and hilar contours appear normal. LINES/TUBES: ??None. BONES: ??No acute osseous abnormality. IMPRESSION: No acute cardiopulmonary abnormality. THIS IS AN ELECTRONICALLY VERIFIED FINAL REPORT 07/28/2023 10:01 PM - Electronically signed by ??Stephan Stiles M.D. KT: EZIO D: ??07/28/2023 10:01 PM T: ??07/28/2023 10:01 PM Report ID: [id number] Reading Location: ??[id number] Procedure Note Stephan Stiles MD - 07/28/2023 EXAM DESCRIPTION: XR CHEST 1 VIEW REASON FOR STUDY: SOB Patient arrives to the ED with complaints of heart palpitations that began last week but went away. Patient states they came back today and he has intermittent shortness of breath. Patient denies chest pain. TECHNIQUE: 1 radiographic view(s) of the chest. COMPARISON: 08/24/2018 FINDINGS: LUNGS: No focal opacity, pleural effusion, or pneumothorax. Poor inspiratory result and elevation the right hemidiaphragm with discoid atelectasis at the right lung base. HEART/MEDIASTINUM: Cardiac silhouette normal in size. Mediastinal andhilar contours appear normal. LINES/TUBES: None. BONES: No acute osseous abnormality. IMPRESSION: No acute cardiopulmonary abnormality. THIS IS AN ELECTRONICALLY VERIFIED FINAL REPORT 07/28/2023 10:01 PM - Electronically signed by Stephan Stiles M.D. KT: EZIO Report ID: [id number] Reading Location: [id number] Kole Devries MD IMG XR PROCEDURES Final Result * eGFR (07/28/2023 9:28 PM ONLINE ADVERTISING DIRECTOR) eGFR 82 mL/min/1. 73 m2 [facility] ([place]) Comment: [...] interpretive data was last reviewed 2021. Blood 07/28/2023 9:28 PM ONLINE ADVERTISING DIRECTOR 07/28/2023 9:32 PM ONLINE ADVERTISING DIRECTOR us Kole Devries MD LAB BLOOD ORDERABLES Fi nal Result [facility] ([place]) [address] [facility] Department [place] [address] * Differential, auto (07/28/2023 9:28 PM ONLINE ADVERTISING DIRECTOR) Neutrophil abs 2.6 1.7 - 6.5 K/cumm [facility] ([place]) Imm gran abs 0.0 0.0 - 0.1 K/cumm [facility] ([place]) Lymphocyte abs 1.6 0.8 - 3.3 K/cumm [facility] ([place]) Monocyte abs 0.4 0.2 - 0.8 K/cumm [facility] ([place]) Eosinophil abs 0.2 0.0 - 0.5 K/cumm [facility] ([place]) Basophil abs 0.0 0.0 - 0.1 K/cumm [facility] ([place]) Neutrophil pct 53.2 % [facility] ([place]) Comment: Interpretive Data Percent cell count reference ranges are not reported, since discordance with absolute values may lead to misinterpretation of CBC data. Current Interpretive Data was last revised on 2017. Imm gran pct 0.8 % [facility] ([place]) Comment: Interpretive Data Percent cell count reference ranges are not reported, since discordance with absolute values may lead to misinterpretation of CBC data. Current Interpretive Data was last revised on 2017. Lymphocyte pct 34.0 % [facility] ([place]) Comment: Interpretive Data Percent cell count reference ranges are not reported, since discordance with absolute values may lead to misinterpretation of CBC data. Current Interpretive Data was last revised on 2017. Monocyte pct 8.1 % [facility] ([place]) Comment: Interpretive Data Percent cell count reference ranges are not reported, since discordance with absolute values may lead to misinterpretation of CBC data. Current Interpretive Data was last revised on 2017. Eosinophil pct 3.1 % [facility] ([place]) Comment: Interpretive Data Percent cell count reference ranges are not reported, since discordance with absolute values may lead to misinterpretation of CBC data. Current Interpretive Data was last revised on 2017. Basophil pct 0.8 % [facility] ([place]) Comment: Interpretive Data Percent cell count reference ranges are not reported, since discordance with absolute values may lead to misinterpretation of CBC data. Current Interpretive Data was last revised on 2017. Blood 07/28/2023 9:28 PM ONLINE ADVERTISING DIRECTOR 07/28/2023 9:32 PM ONLINE ADVERTISING DIRECTOR us Kole Devries MD LAB BLOOD ORDERABLES Fi nal Result [facility] ([place]) [address] [facility] Department of Laboratories [place], [place] [id number] * Pro B-type natriuretic peptide (07/28/2023 9:28 PM ONLINE ADVERTISING DIRECTOR) NT-proBNP 193 <=300 pg/mL [facility] ([place]) Comment: Interpretive Comments: A. Dyspnea in Acute Care Setting All Ages: ?< 300 pg/ml, acute heart failure unlikely. < 50 yrs: ?300 - 450 pg/ml, further investigation warranted. ? > 450 pg/ml, acute heart failure likely. 50 - 74 yrs: ? 300 - 900 pg/ml, further investigation warranted. ? > 900 pg/ml, acute heart failure likely . > or = 75 yrs: ? 450 - 1800 pg/ml, further investigation warranted. ? > 1800 pg/ml, acute heart failure likely. B. Non-acute Setting < 75 yrs ? < 125 pg/ml, rules out heart failure. ? > or = 125 pg/ml, further investigation warranted. > or = 75 yrs ?< 450 pg/ml, rules out heart failure. ? > or = 450 pg/ml, further investigation warranted. - Knowledge of each individual patient's NT-proBNP range may be more useful than using similar cut-points for every patient. Please note that marked elevations in NT-proBNP levels may be observed in state other than Left Ventricular Congestive Failure, including: acute coronary syndromes, right heart strain/failure (including pulmonary embolism and cor pulmonale), critical illness, renal failure, as well as advanced age. - References: 1. Brady LEACH et.al. Eur Heart J. 2006:27:330-337. 2. Emilee RW, Pippa BAILEY. J. AM Lux Cardiol: Cardiovasc Imag. 2009;2: 216- 225. Interpretive Data Last Revised Date: 2018. Blood 07/28/2023 9:28 PM ONLINE ADVERTISING DIRECTOR 07/28/2023 9:32 PM ONLINE ADVERTISING DIRECTOR us Kole Devries MD LAB BLOOD ORDERABLES Fi nal Result [facility] [place]) [facility] Department [place] [address] * CBC with auto differential (07/28/2023 9:28 PM ONLINE ADVERTISING DIRECTOR) WBC 4.8 3.8 - 9.9 K/cumm [facility] ([place]) Hgb 13.9 13.0 - 17.5 g/dL [facility] ([place]) Comment: Interpretive Data A reference range for this assay has not been established for patients with an unknown legal sex. Please refer to the laboratory test catalog for established sex-specific reference intervals. Current interpretive data was last revised on 2023. Hct 40.1 38.9 - 50.3 % [facility] ([place]) Comment: Interpretive Data A reference range for this assay has not been established for patients with an unknown legal sex. Please refer to the laboratory test catalog for established sex-specific reference intervals. Current interpretive data was last revised on 2023. Plt 177 150 - 400 K/cumm [facility] ([place]) MPV 10.0 9.1 - 12.3 fL [facility] ([place]) RBC 4.31 4.30 - 5.80 M/cumm [facility] ([place]) Comment: Interpretive Data A reference range for this assay has not been established for patients with an unknown legal sex. Please refer to the laboratory test catalog for established sex-specific reference intervals. Current interpretive data was last revised on 2023. MCV 93.0 81.3 - 96.4 fL [facility] ([place]) MCH 32.3 27.1 - 33.3 pg [facility] ([place]) MCHC 34.7 32.3 - 35.7 g/dL [facility] ([place]) RDW CV 12.2 11.1 - 14.9 % [facility] ([place]) RDW SD 42.2 35.7 - 48.1 fL [facility] ([place]) NRBC abs 0.00 0.00 - 0.01 K/cumm [facility] ([place]) Blood 07/28/2023 9:28 PM ONLINE ADVERTISING DIRECTOR 07/28/2023 9:32 PM ONLINE ADVERTISING DIRECTOR Kole Devries MD LAB BLOOD ORDERABLES Fi nal Result [facility] ([place]) 1 [facility] Department [place] [address] * (ABNORMAL) Comprehensive metabolic panel (07/28/2023 9:28 PM ONLINE ADVERTISING DIRECTOR) Sodium 139 135 - 145 mmol/L [facility] ([place]) Potassium, pl 3.5 3.3 - 4.9 mmol/L [facility] ([place]) Chloride 104 97 - 110 mmol/L [facility] ([place]) CO2 22 22 - 32 mmol/L [facility] ([place]) Anion gap 13 2 - 15 mmol/L [facility] ([place]) BUN 11 6 - 25 mg/dL [facility] ([place]) Creatinine 1.07 0.80 - 1.30 mg/dL [facility] ([place]) Glucose 164 70 - 199 mg/dL [facility] ([place]) [...] 2022. Calcium 9.0 8.5 - 10.3 mg/dL [facility] ([place]) Bilirubin, total 0.3 0.1 - 1.2 mg/dL [facility] ([place]) Protein, pl 6.1(L) 6.5 - 8.5 g/dL [facility] ([place]) Albumin 4.0 3.5 - 5.0 g/dL [facility] ([place]) Alk phos 106 40 - 130 Units/L [facility] ([place]) ALT 23 7 - 55 Units/L [facility] ([place]) AST 20 10 - 50 Units/L [facility] ([place]) Comment:Slightly Hemolyzed S pecimen Blood 07/28/2023 9:28 PM ONLINE ADVERTISING DIRECTOR 07/28/2023 9:32 PM ONLINE ADVERTISING DIRECTOR Kole Devries MD LAB BLOOD ORDERABLES Fi nal Result Performing Organization Address [facility] Co de Phone Number [facility] ([place]) [address] [facility] [place] [address] * Magnesium (07/28/2023 9:28 PM ONLINE ADVERTISING DIRECTOR) Magnesium 2.3 1.4 - 2.5 mg/dL [facility] ([place]) Blood 07/28/2023 9:28 PM ONLINE ADVERTISING DIRECTOR 07/28/2023 9:32 PM ONLINE ADVERTISING DIRECTOR Kole Devries MD LAB BLOOD ORDERABLES Fi nal Result Performing Organization Address [facility] de Phone Number [facility] ([place]) [address] [facility] [place] [address] * ECG 12 lead (07/28/2023 8:53 PM ONLINE ADVERTISING DIRECTOR) 07/28/2023 8:53 PM ONLINE ADVERTISING DIRECTOR Narrative [facility] - 07/29/2023 8:12 AM ONLINE ADVERTISING DIRECTOR Vent Rate: 108 bpm RR Interval: 553 msec NV Interval: 163 msec QRS Duration: 97 msec QT Interval: 383 msec QTC Interval: 446 msec P-R-T [place]: 46 - 2 - 13 degrees IMPRESSION: SINUS TACHYCARDIA WITH FREQUENT SUPRAVENTRICULAR PREMATURE COMPLEXES Compared to prior EKG, heart rate is now faster and PVCs are new. Electronically Signed By: Dr Anoop Pablo Kole Devries MD ECG ORDERABLES Final R esult Performing Organization Address [facility] Co de Phone Number [facility] documented in this encounter Visit Diagnoses Diagnosis Palpitations- Primary documented in this encounter Administered Medications Inactive Administered Medications - up to 3 most recent administrations Medication Order MAR Action Action Date Dose Rate Site metoprolol (LOPRESSOR) injection 10 mg 10 mg, intravenous, Administer over 1 Minutes, Once, On 07/28/23 at 2124, For 1 dose Given 07/28/2023 9:33 PM ONLINE ADVERTISING DIRECTOR 10 mg documented in this encounter Active and Recently Administered Medications Times are shown in ONLINE ADVERTISING DIRECTOR. Scheduled Medication Order 07/27/2023 07/28/2023 07/29/2023 metoprolol (LOPRESSOR) injection 10 mg (COMPLETED) 10 mg, intravenous, Administer over 1 Minutes, Once, On 07/28/23 at 2124, For 1 dose 2132 (Given - Provider: Daphney Cardozo RN) documented in this encounter Orders Medications Ordered That Aden ht Not Have Been Administered Count Last Ordered Date First Ordered Date metoprolol tartrate (LOPRESS OR) immediate release tablet 50 mg 1 07/28/2023 Nursing Count Last Ordered Date First Orde red Date CONTINUOUS PULSE OXIMETRY 1 07/28/2023 IV Count Last Ordered Date First Orde red Date SALINE LOCK IV 1 07/28/2023 documented in this encounter Care Teams Bag Sealer Relationship Specialty Start Date End Date La Kearney MD [address] [facility] [address] LUCAS [address] [place] [address] PCP - General Family Medicine 10/02/22 Mariaelena Zaidi MD Consulting Physician Sleep Medicine 07/12/21 documented as of this encounter
--- OUTSIDE RECORDS SUMMARY | 2024-09-17 12:49 | XMS_ITS | Encounter Summary ---
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 * Telephone Encounter - Denia Santos LPN - 06/10/2023 11:29 AM CDT ----- Message from La Kearney MD sent at 06/10/2023 8:27 AM CDT ----- Can let patient know that his x ray showed some mild and moderate degenerative changes in the neck and lower back that are common with wear and tear over time. There is some mild pinching of the nerves as well.Recommend physical therapy as discussed at office visit documented in this encounter Plan of Treatment Not on file documented as of this encounter Visit Diagnoses Not on filedocumented in this encounter Care Teams Patient Access Manager Relationship Specialty Start Date End Date La Kearney MD [address] [place] [address] [address] PCP - General Family Medicine 10/02/22 Mariaelena Zaidi MD Consulting Physician Sleep Medicine 07/12/21 documented as of this encounter
--- OUTSIDE RECORDS SUMMARY | 2024-09-17 12:49 | XMS_ITS | Encounter Summary ---
Author Organization [facility] Healthcare Address [address] [place] [address] Care Team Providers Care High Frequency Mill Operator Name Role Phone Mariaelena Zaidi MD Unavailable La Kearney MD Primary Care Provide r Encounter Details Date Type Department Care Team (Late st Contact Info) Description 06/10/2023 Telephone [facility] Medical Group Primary Care at [address] [place] [address] La Kearney MD [address] [place] [address] [address] [place] [address] Social History Tobacco Use Types [...] on file 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 Let him know to get repeat labs in two weeks. Noquestions or concerns. * Telephone Encounter - Denia Santos LPN - 06/10/2023 10:45 AM CDT ----- Message from La Kearney MD sent at 06/10/2023 10:17 AM CDT ----- Let patient know that his kidney function dropped a little bit all other labs are stable. I recommend repeating a CMP urinalysis and microscopy and a microalbumin creatinine urine in 2 weeks. I encourage increasing the water intake in the meantime. Can discuss further questions at upcoming appointment documented in this encounter Plan of Treatment Not on file documented as of this encounter Results * Albumin Creatinine Ratio, Urine (06/22/2023 7:25 AM CDT) Albumin Ur <12.0 mg/L Comment: Interpretive Data No reference range established. Current interpretive data was last revised 2019. Testing performed by: [address] [address] Creatinine Ur 195.5 mg/dL [facility] ([place] Comment: Interpretive Data No reference range established. Current interpretive data was last revised 2019. Testing performed by: [address] [address] Albumin Creatinine Ratio, Ur <6 1 - 29 mg/g [facility] ([place]) Comment:Testing performed by : [address] [address] Urine 06/22/2023 7:25 AM CDT 06/22/2023 11:51 AM CDT us La Kearney MD LAB URINE ORDERABLES Final Result [facility] ([place] 1 [facility] Department [place] [address] * Urinalysis reflex to microscopic (06/22/2023 7:25 AM CDT) Color, ur Yellow Yellow Clarity, ur Clear Clear [facility] ([place]) Specific gravity, ur 1.018 1.003 - 1.030 [facility] ([place]) pH, [...] tendency for uric acid stone formation. Source: [facility] [employer] Current Interpretive Data was last revised on [...] [facility] ([place]) UA reflex comment Reflex conditions for microscopic UA not met. [facility] ([place]) Urine 06/22/2023 7:25 AM CDT 06/22/2023 8:14 AM CDT La Kearney MD LAB URINE ORDERABLES Final Result [facility] ([place]) 1 [facility] Department [place] [address] * Comprehensive metabolic panel (06/22/2023 7:25 AM CDT) Sodium 138 135 - 145 mmol/L Potassium, pl 4.0 3.3 - 4.9 mmol/L [facility] ([place]) Chloride 104 97 - 110 mmol/L [facility]) CO2 25 22 - 32 mmol/L [facility]) Anion gap 9 2 - 15 mmol/L [facility] ([place]) BUN 10 6 - 25 mg/dL [facility] ([place]) Creatinine 1.06 0.80 - 1.30 mg/dL [facility] ([place]) Glucose 105 70 - 199 mg/dL [facility] ([place]) [...] interpretive data was last revised 2022. Calcium 9.2 8.5 - 10.3 mg/dL [facility] ([place]) Bilirubin, total 0.6 0.1 - 1.2 mg/dL [facility] ([place]) Protein, pl 6.6 6.5 - 8.5 g/dL [facility] ([place]) Albumin 4.4 3.5 - 5.0 g/dL [facility] ([place]) Alk phos 91 40 - 130 Units/L [facility]) ALT 29 7 - 55 Units/L [facility] AST 22 10 - 50 Units/L [facility] ([place]) Blood 06/22/2023 7:25 AM CDT 06/22/2023 8:10 AM CDT us La Kearney MD LAB BLOOD ORDERABLES Final Result [facility] ([place] 1 [facility] Department [place] [address] documented in this encounter Visit Diagnoses Diagnosis Acute kidney injury (HCC)- Primary documented in this encounter Care Teams High Frequency Mill Operator Relationship Specialty Start Date End Date La Kearney MD [address] [facility] [address] LUCAS [address] [place] [address] PCP - General Family Medicine 10/02/22 Mariaelena Zaidi MD Consulting Physician Sleep Medicine 07/12/21 documented as of this encounter
--- OUTSIDE RECORDS SUMMARY | 2024-09-17 12:49 | XMS_ITS | Encounter Summary ---
Author Organization [facility] Healthcare Address [address] [place] [address] Care Team Providers Care [place] Name Role Phone Mariaelena Zaidi MD Unavailable La Kearney MD Primary Care Provide r Reason for Visit * Reason Comments Abdominal Pain He is here today bec ause he has been having lower right side abdominal pain, still has his appendix Encounter Details Date Type Department Care Team (Late st Contact Info) Description 10/07/2023 1:00 PM PRODUCTION SUPPORT SUPERVISOR Office Visit 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 Gender Identity Not on file Sexual Orientation Not on file documented as of this encounter Last Filed Vital Signs Vital Sign Reading Time Taken Comments Blood Pressure 118/62 10/07/2023 12:54 PM PRODUCTION SUPPORT SUPERVISOR Pulse 84 10/07/2023 12:54 PM PRODUCTION SUPPORT SUPERVISOR Temperature - - Respiratory Rate - - Oxygen Saturation 95% 10/07/2023 12:54 PM PRODUCTION SUPPORT SUPERVISOR Inhaled Oxygen Concentration - - Weight 127.5 kg (281 lb) 10/07/2023 12:54 PM PRODUCTION SUPPORT SUPERVISOR Height 188 cm (6' 2 ) 10/07/2023 12:54 PM PRODUCTION SUPPORT SUPERVISOR Body Mass Index 36.08 10/07/2023 12:54 PM PRODUCTION SUPPORT SUPERVISOR documented in this encounter Patient Instructions * Patient Instructions* La Kearney MD - 10/07/2023 1:00 PM PRODUCTION SUPPORT SUPERVISOR My medical research associate and I are thankful you have trusted [...] were not feeling your best! -Dr. Kearney UCTION SUPPORT SUPERVISOR documented in this encounter Progress Notes * La Kearney MD - 10/07/2023 1:00 PM CST Images from the original note were not included. Subjective/Objective Patient ID: Jaden De La Torre is a 53 y.o. male. Chief Complaint Abdominal Pain (He is here today because he has been having lower right side abdominal pain, still has his appendix) Abdominal Pain 53m presenting for abdominal pain. Sharp right sided abdominal pain that started this morning. Touching it makes it worse. Nothing makes it better. No associated nausea, vomiting, diarrhea, or constipation. No change in diet or eatingout recently. No associated fevers. He was able to eat without any issues. No recent heavy lifting He is able to tolerate food without any issues and no issues with bowel movement with last bowel movement being yesterday. Review of Systems Gastrointestinal: Positive for abdominal pain. Vitals: 10/07/23 1254 BP: 118/62 BP Location: Left arm Patient Position: Sitting Pulse: 84 SpO2: 95% Weight: 127.5 kg (281 lb) Height: 188 cm (6' 2 ) No visits with results within 1 Month(s) from this visit. Latest known visit with results is: Admission on 07/28/2023, Discharged on 07/29/2023 Component Date Value Magnesium 07/28/2023 2.3 Sodium 07/28/2023 139 Potassium, pl 07/28/2023 3.5 Chloride 07/28/2023 104 CO2 07/28/2023 22 Anion gap 07/28/2023 13 BUN 07/28/2023 11 Creatinine 07/28/2023 1.07 Glucose 07/28/2023 164 Calcium 07/28/2023 9.0 Bilirubin, total 07/28/2023 0.3 Protein, pl 07/28/2023 6.1 (L) Albumin 07/28/2023 4.0 Alk phos 07/28/2023 106 ALT 07/28/2023 23 AST 07/28/2023 20 WBC 07/28/2023 4.8 Hgb 07/28/2023 13.9 Hct 07/28/2023 40.1 Plt 07/28/2023 177 MPV 07/28/2023 10.0 RBC 07/28/2023 4.31 MCV 07/28/2023 93.0 MCH 07/28/2023 32.3 MCHC 07/28/2023 34.7 RDW CV 07/28/2023 12.2 RDW SD 07/28/2023 42.2 NRBC abs 07/28/2023 0.00 NT-proBNP 07/28/2023 193 Neutrophil abs 07/28/2023 2.6 Imm gran abs 07/28/2023 0.0 Lymphocyte abs 07/28/2023 1.6 Monocyte abs 07/28/2023 0.4 Eosinophil abs 07/28/2023 0.2 Basophil abs 07/28/2023 0.0 Neutrophil pct 07/28/2023 53.2 Imm gran pct 07/28/2023 0.8 Lymphocyte pct 07/28/2023 34.0 Monocyte pct 07/28/2023 8.1 Eosinophil pct 07/28/2023 3.1 Basophil pct 07/28/2023 0.8 eGFR 07/28/2023 82 Physical Exam Abdominal: General: Bowel sounds are normal. There is no distension. Palpations: Abdomen is soft. There is no mass. Tenderness: There is abdominal tenderness in the right lower quadrant. There is rebound. There is no guarding. Assessment/Plan Diagnoses and all orders for this visit: Right lower quadrant abdominal pain (Primary) Assessment & Plan: New concern Not at goal Will get ct of the abdomen to rule out appendicitis and to evaluate the gall bladder Low suspicion that it is a kidney stone that migrated but will get a ct scan anyway F/u pending results Instructed to report the ED for worsening symptoms Side effects, risks, interactions reviewed with patient. Indications for testing discussed. Any further problems to contact us. He was told what to look out for and verbalized understanding. The patient was given the opportunity to have all questions answered today and was in agreement with the plan of care. La Keareny MD UCTION SUPPORT SUPERVISOR documented in this encounter Miscellaneous Notes * Assessment & Plan Note - La Kearney MD - 10/07/2023 1:20 PM PRODUCTION SUPPORT SUPERVISOR Associated Problem(s): Right lower quadrant abdominal pain New concern Not at goal Will get ct of the abdomen to rule out appendicitis and to evaluate the gall bladder Low suspicion that it is a kidney stone that migrated but will get a ct scan anyway F/u pending results Instructed to report the ED for worsening symptoms UCTION SUPPORT SUPERVISOR documented in this encounter Plan of Treatment Not on file documented as of this encounter Visit Diagnoses Diagnosis Right lower quadrant abdominal pain- Primary documented in this encounter Care Teams [place] Relationship Specialty Start Date End Date La Kearney MD [address] [place] [address] DR LUCAS [address] [place] [id number] PCP - General Family Medicine 10/02/22 Mariaelena Zaidi MD Consulting Physician Sleep Medicine 07/12/21 documented as of this encounter
--- OUTSIDE RECORDS SUMMARY | 2024-09-17 12:49 | XMS_ITS | Encounter Summary ---
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 Gender Identity Not on file Sexual Orientation Not on file documented as of this encounter Plan of Treatment Not on file documented as of this encounter Procedures Procedure Name Priority Date/Time Associated Diagnosis Comments EGFR Routine 06/22/2023 7:25 AM CDT Acute kidney injury (HCC) URINALYSIS AND REFLEX TO MICROSCOPIC Routine 06/22/2023 7:25 AM CDT Acute kidney injury (HCC) ALBUMIN CREATININE RATIO, URINE Routine 06/22/2023 7:25 AM CDT Acute kidney injury (HCC) COMPREHENSIVE METABOLIC PANEL Routine 06/22/2023 7:25 AM CDT Acute kidney injury (HCC) documented in this encounter Results * eGFR (06/22/2023 7:25 AM CDT) eGFR 83 mL/min/1. 73 m2 Comment: Interpretive Data Reference [...] interpretive data was last reviewed 2021. Blood 06/22/2023 7:25 AM CDT 06/22/2023 8:10 AM CDT us La Kearney MD LAB BLOOD ORDERABLES Final Result [facility] [place]) 1 [facility] Department [place] [address] * Comprehensive metabolic panel (06/22/2023 7:25 AM [...] Kearney MD LAB BLOOD ORDERABLES Final Result [facility] ([place]) 1 [facility] Department [place] [address] * Urinalysis reflex to microscopic (06/22/2023 7:25 [...] for uric acid stone formation. Source: [facility] Current Interpretive Data was last revised [...] 7:25 AM CDT 06/22/2023 8:14 AM CDT us La Kearney MD LAB URINE ORDERABLES Final Result [facility] ([place]) 1 [facility] Department [place] [address] * Albumin Creatinine Ratio, Urine (06/22/2023 7:25 AM CDT) Albumin Ur <12.0 mg/L Comment: Interpretive Data No reference range established. Current interpretive data was last revised 2019. Testing performed by: [facility], [address] [place] [address]., [id number] Creatinine Ur 195.5 mg/dL [facility] ([place]) Comment: Interpretive Data No reference range established. Current interpretive data was last revised 2019. Testing performed by: [address] [address] Albumin Creatinine Ratio, Ur <6 1 - 29 mg/g [facility] ([place]) Comment:Testing performed by : [address] [address] Urine 06/22/2023 7:25 AM CDT 06/22/2023 11:51 AM CDT us La Kearney MD LAB URINE ORDERABLES Final Result [facility] 1 [facility] Department [place] [address] documented in this encounter Visit Diagnoses Diagnosis Acute kidney injury (HCC) documented in this encounter Care Teams Blanker Operator Relationship Specialty Start Date End Date La Kearney MD [address] [facility] [address] [address] PCP - General Family Medicine 10/02/22 Mariaelena Zaidi MD Consulting Physician Sleep Medicine 07/12/21 documented as of this encounter
--- OUTSIDE RECORDS SUMMARY | 2024-09-17 12:49 | XMS_ITS | Encounter Summary ---
Author Organization [facility] Healthcare Address [address] [place] [address] Care Team Providers Care Business Law Instructor Name Role Phone Mariaelena Zaidi MD Unavailable La Kearney MD Primary Care Provide r Reason for Visit * Reason Comments Hypertension Encounter Details Date Type Department Care Team (Late st Contact Info) Description 08/08/2023 8:30 AM ASSISTANT ASSOCIATE PROFESSOR Office Visit [facility] Primary Care at [address] [place] [address] Thais Burt, [facility] [address] [place] [address] Encounter for follow-up examination after completed treatment for conditions other than malignant neoplasm (Primary Dx); Essential hypertension; Intermittent palpitations Social History Tobacco Use Types Packs/Day Years [...] points, staff should administer the PHQ-9) 0 08/08/2023 Sex and Gender Information Value Date Recorded Sex Assigned at Not on file 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 ASSISTANT ASSOCIATE PROFESSOR Gender Identity Not on file Sexual Orientation Not on file documented as of this encounter Last Filed Vital Signs Vital Sign Reading Time Taken Comments Blood Pressure 108/70 08/08/2023 8:46 AM ASSISTANT ASSOCIATE PROFESSOR Pulse 71 08/08/2023 8:14 AM ASSISTANT ASSOCIATE PROFESSOR Temperature - - Respiratory Rate 16 08/08/2023 8:14 AM ASSISTANT ASSOCIATE PROFESSOR Oxygen Saturation 96% 08/08/2023 8:14 AM ASSISTANT ASSOCIATE PROFESSOR Inhaled Oxygen Concentration - - Weight 126 kg (277 lb 12.8 oz) 08/08/2023 8:14 A M ASSISTANT ASSOCIATE PROFESSOR Height 188 cm (6' 2.02 ) 08/08/2023 8:14 AM ASSISTANT ASSOCIATE PROFESSOR Body Mass Index 35.65 08/08/2023 8:14 AM ASSISTANT ASSOCIATE PROFESSOR documented in this encounter Patient Instructions * Patient Instructions* Thais Burt NP - 08/08/2023 8:30 AM ASSISTANT ASSOCIATE PROFESSOR My director medical writing,Laura, and I are thankful you have trusted [...] if you were not feeling your best! -Thais FRANKLINP-C Aveeno Anti Itch Cream over the counter- apply at bedtime Aveeno Gel over the counter, may apply during the day Hydrocortisone over the counter use as directed for itching STANT ASSOCIATE PROFESSOR STANT ASSOCIATE PROFESSOR documented in this encounter Progress Notes * Thais Burt NP - 08/08/2023 8:30 AM CST Subjective/Objective Patient ID: Jaden De La Torre is a 52 y.o. male. Chief Complaint Hypertension HPI Jaden De La Torre is a 52 y.o. male who presents for follow up after being seen in the ED for palpitations and sob and to follow up on his blood pressure. States he had been having intermittent palpitations for over a week and then had new onset of sob with his last episode of palpitations. Denies any CP, dizziness, lightheadedness, nausea, or vomiting. States he does have appointment to see cardiology. States he has been doing okay since he was discharged and after receiving a medication through his IV. States he has only had to take 4 doses of the new Rx Lopressor that he was prescribed in the ED. Review of Systems Constitutional: Negative. Respiratory: Negative. Cardiovascular: Positive for palpitations. Negative for chest pain. Gastrointestinal: Negative. Neurological: Negative for dizziness, syncope, light-headedness and headaches. Vitals: 08/08/23 0814 08/08/23 0846 BP: 108/62 108/70 BP Location: Left arm Left arm Patient Position: Sitting Sitting Pulse: 71 Resp: 16 SpO2: 96% Weight: 126 kg (277 lb 12.8 oz) Height: 188 cm (6' 2.02 ) Physical Exam Constitutional: General: He is not in acute distress. Appearance: Normal appearance. He is obese. He is not ill-appearing. HENT: Head: Normocephalic and atraumatic. Cardiovascular: Rate and Rhythm: Normal rate and regular rhythm. Pulses: Normal pulses. Heart sounds: Normal heart sounds. Pulmonary: Effort: Pulmonary effort is normal. Breath sounds: Normal breath sounds. No wheezing, rhonchi or rales. Skin: General: Skin is warm and dry. Neurological: General: No focal deficit present. Mental Status: He is alert and oriented to person, place, and time. Cranial Nerves: No cranial nerve deficit. Sensory: No sensory deficit. Assessment/Plan Work noted completed for patient. ECG: Vent Rate: 108 bpm RR Interval: 553 msec OH Interval: 163 msec QRS Duration: 97 msec QT Interval: 383 msec QTC Interval: 446 msec P-R-T Festus: 46 - 2 - 13 degrees IMPRESSION: SINUS TACHYCARDIA WITH FREQUENT SUPRAVENTRICULAR PREMATURE COMPLEXES Compared to prior EKG, heart rate is now faster and PVCs are new. (Electronically Signed By: Dr Anoop Pablo) ECG: Vent Rate: 66 bpm RR Interval: 898 msec OH Interval: 170 msec QRS Duration: 99 msec QT Interval: 399 msec QTC Interval: 413 msec P-R-T Festus: 45 - 14 - 29 degrees IMPRESSION: SINUS RHYTHM WITH OCCASIONAL SUPRAVENTRICULAR PREMATURE COMPLEXES POSSIBLE LEFT ATRIAL ENLARGEMENT [-0.1mV P-WAVE IN V1/V2] Compared to prior EKG, PACs are now less frequent. (Electronically Signed By: Dr Anoop Pablo) CXR: COMPARISON: 08/24/2018 FINDINGS: LUNGS: No focal opacity, pleural effusion, or pneumothorax. Poor inspiratory result and elevation the right hemidiaphragm with discoid atelectasis at the right lung base. HEART/MEDIASTINUM: Cardiac silhouette normal in size. Mediastinal and hilar contours appear normal. LINES/TUBES: None. BONES: No acute osseous abnormality. IMPRESSION: No acute cardiopulmonary abnormality. ( Electronically signed by Stephan Stiles M.D.) Diagnoses and all orders for this visit: Encounter for follow-up examination after completed treatment for conditions other than malignant neoplasm (Primary) Assessment & Plan: I personally reviewed H&P documentation by ED provider, CXR imaging, and ECG tracings from patient recent visit to [facility]. Medications reviewed and reconciled this visit Essential hypertension Assessment & Plan: Chronic problem-controlled with current regimen Continue metoprolol XL 25 mg daily Continue Metoprolol tartrate 25 mg- take half tablet (12.5 mg) daily prn BP this visit 108/62 Recommend DASH diet, heart-healthy lifestyle, exercise. Discussed the risks of hypertension. Continue to monitor Intermittent palpitations Assessment & Plan: Acute problem- this is a recurring problem Seen in ED for intermittent palpations Follow up with cardiology as scheduled Continue to monitor ECG: Vent Rate: 108 bpm RR Interval: 553 msec OH Interval: 163 msec QRS Duration: 97 msec QT Interval: 383 msec QTC Interval: 446 msec P-R-T Festus: 46 - 2 - 13 degrees IMPRESSION: SINUS TACHYCARDIA WITH FREQUENT SUPRAVENTRICULAR PREMATURE COMPLEXES Compared to prior EKG, heart rate is now faster and PVCs are new. (Electronically Signed By: Dr Anoop Pablo) ECG: Vent Rate: 66 bpm RR Interval: 898 msec OH Interval: 170 msec QRS Duration: 99 msec QT Interval: 399 msec QTC Interval: 413 msec P-R-T Festus: 45 - 14 - 29 degrees IMPRESSION: SINUS RHYTHM WITH OCCASIONAL SUPRAVENTRICULAR PREMATURE COMPLEXES POSSIBLE LEFT ATRIAL ENLARGEMENT [-0.1mV P-WAVE IN V1/V2] Compared to prior EKG, PACs are now less frequent. (Electronically Signed By: Dr Anoop Pablo) Side effects, risks, interactions reviewed with patient. Indications for testing discussed. Any further problems to contact us. He was told what to look out for and verbalized understanding. The patient was given the opportunity to have all questions answered today and was in agreement with the plan of care. STANT ASSOCIATE PROFESSOR documented in this encounter Miscellaneous Notes * Assessment & Plan Note - Thais Burt NP - 08/08/2023 4:06 PM ASSISTANT ASSOCIATE PROFESSOR Associated Problem(s): Encounter for follow-up examination after completed treatment for conditionsother than malignant neoplasm (Resolved 05/22/2024) I personally reviewed H&P documentation by ED provider, CXR imaging, and ECG tracings from patient recent visit to [facility]. Medications reviewed and reconciled this visit STANT ASSOCIATE PROFESSOR * Assessment & Plan Note - Thais Burt NP - 08/08/2023 4:00 PM ASSISTANT ASSOCIATE PROFESSOR Associated Problem(s): Intermittent palpitations Acute problem- this is a recurring problem Seen in ED for intermittent palpations Follow up with cardiology as scheduled Continue to monitor ECG: Vent Rate: 108 bpm RR Interval: 553 msec OH Interval: 163 msec QRS Duration: 97 msec QT Interval: 383 msec QTC Interval: 446 msec P-R-T Festus: 46 - 2 - 13 degrees IMPRESSION: SINUS TACHYCARDIA WITH FREQUENT SUPRAVENTRICULAR PREMATURE COMPLEXES Compared to prior EKG, heart rate is now faster and PVCs are new. (Electronically Signed By: Dr Anoop Pablo) ECG: Vent Rate: 66 bpm RR Interval: 898 msec OH Interval: 170 msec QRS Duration: 99 msec QT Interval: 399 msec QTC Interval: 413 msec P-R-T Festus: 45 - 14 - 29 degrees IMPRESSION: SINUS RHYTHM WITH OCCASIONAL SUPRAVENTRICULAR PREMATURE COMPLEXES POSSIBLE LEFT ATRIAL ENLARGEMENT [-0.1mV P-WAVE IN V1/V2] Compared to prior EKG, PACs are now less frequent. ( STANT ASSOCIATE PROFESSOR * Assessment & Plan Note - Thais Burt NP - 08/08/2023 3:44 PM ASSISTANT ASSOCIATE PROFESSOR Associated Problem(s): Essential hypertension Chronic problem-controlled with current regimen Continue metoprolol XL 25 mg daily Continue Metoprolol tartrate 25 mg- take half tablet (12.5 mg) daily prn BP this visit 108/62 Recommend DASH diet, heart-healthy lifestyle, exercise. Discussed the risks of hypertension. Continue to monitor STANT ASSOCIATE PROFESSOR STANT ASSOCIATE PROFESSOR documented in this encounter Plan of Treatment Not on file documented as of this encounter Visit Diagnoses Diagnosis Encounter for follow-up examination after completed treatment for conditions other than malignant neoplasm- Primary Essential hypertension Unspecified essential hypertension Intermittent palpitations documented in this encounter Care Teams Business Law Instructor Relationship Specialty Start Date End Date La Kearney MD [address] [place] [address] [address] PCP - General Family Medicine 10/02/22 Mariaelena Zaidi MD Consulting Physician Sleep Medicine 07/12/21 documented as of this encounter
--- OUTSIDE RECORDS SUMMARY | 2024-09-17 12:49 | XMS_ITS | Encounter Summary ---
Author Organization [facility] Healthcare Address [address] [place] [address] Care Team Providers Care Security Operations Center Analyst Name Role Phone Mariaelena Zaidi MD Unavailable La Kearney MD Primary Care Provide r Reason for Visit * Reason Onset Date Comments Medical Question/Miscellaneous 08/08/2023 Encounter Details Date Type Department Care Team (Late st Contact Info) Description 08/08/2023 Telephone [facility] Medical Group Primary Care at [address] [place] [address] La Kearney MD [address] [place] [address] [address] [place] [address] Medical Question/Miscellaneous Social History Tobacco [...] staff should administer the PHQ-9) 0 08/08/2023 Personal Safety Answer Date Recorded Getting School Help Needed Denies 08/30 Sex and Gender Information Value Date Recorded Sex Assigned at Not on file 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 TURKISH RUBBER Gender Identity Not on file Sexual Orientation Not on file documented as of this encounter Miscellaneous Notes * Telephone Encounter - Laura Coon MA - 08/08/2023 12:57 PM TURKISH RUBBER Note made- pt aware ISH RUBBER * Telephone Encounter - Kala Loving MA - 08/08/2023 10:34 AM CST Medical Question/Miscellaneous Caller???s Concern: Patient was in this morning to see DIAMOND GRADER Javed. He forgot to ask for a doctor's note. He needs it to actually say he was in the office being seen by DIAMOND GRADER Thais. He would like it down loaded in his my chart but he would also really like a copy mailed to his home. He would like both ways just in case one or the other fails to get to him and he would be written up. His address is as follows: [facility] [address] [facility] [id number] Please advise and due to patient needing as soon as possible CS will send over as HP. Thank you so much. Does message need to be routed? Yes-Action Needed ISH RUBBER documented in this encounter Plan of Treatment Not on file documented as of this encounter Visit Diagnoses Not on filedocumented in this encounter Care Teams Security Operations Center Analyst Relationship Specialty Start Date End Date La Kearney MD [address] [place] [address] [address] PCP - General Family Medicine 10/02/22 Mariaelena Zaidi MD Consulting Physician Sleep Medicine 07/12/21 documented as of this encounter
--- OUTSIDE RECORDS SUMMARY | 2024-09-17 12:49 | XMS_ITS | Encounter Summary ---
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 Gender Identity Not on file Sexual Orientation Not on file documented as of this encounter Plan of Treatment Not on file documented as of this encounter Procedures Procedure Name Priority Date/Time Associated Diagnosis Comments EGFR Routine 06/08/2023 8:33 AM CDT Mixed hyperlipidemia Essential hypertension IGT (impaired glucose tolerance) DIFFERENTIAL AUTO Routine 06/08/2023 8:3 3 AM CDT Mixed hyperlipidemia Essential hypertension IGT (impaired glucose tolerance) HIV 1/2 ANTIBODY PLUS P24 ANTIGEN Routine 06/08/2023 8:33 AM CDT Mixed hyperlipidemia Essential hypertension Encounter for screening for HIV IGT (impaired glucose tolerance) CBC WITH AUTO DIFFERENTIAL Routine 06/08/2023 8:33 AM CDT Mixed hyperlipidemia Essential hypertension IGT (impaired glucose tolerance) HEPATITIS C ANTIBODY Routine 06/08/2023 8:33 AM CDT Mixed hyperlipidemia Essential hypertension Need for hepatitis C screening test IGT (impaired glucose tolerance) TSH Routine 06/08/2023 8:33 AM CDT Mixed hyperlipidemia Essential hypertension IGT (impaired glucose tolerance) T4, FREE Routine 06/08/2023 8:33 AM CDT Mixed hyperlipidemia Essential hypertension IGT (impaired glucose tolerance) HEMOGLOBIN A1C Routine 06/08/2023 8:33 AM CDT Mixed hyperlipidemia Essential hypertension IGT (impaired glucose tolerance) LIPID PANEL Routine 06/08/2023 8:33 AM CDT Mixed hyperlipidemia Essential hypertension IGT (impaired glucose tolerance) COMPREHENSIVE METABOLIC PANEL Routine 06/08/2023 8:33 AM CDT Mixed hyperlipidemia Essential hypertension IGT (impaired glucose tolerance) documented in this encounter Results * eGFR (06/08/2023 8:33 AM CDT) [facility] eGFR 78 mL/min/1. 73 m2 [facility] [...] interpretive data was last reviewed 2021. Blood 06/08/2023 8:33 AM CDT 06/08/2023 9:13 AM CDT La Kearney MD LAB BLOOD ORDERABLES Final Result [facility] ([place]) 1 [facility] Department [place] [address] * Differential, auto (06/08/2023 8:33 AM CDT) Neutrophil abs 2.9 1.7 - 6.5 K/cumm [facility] ([place]) Imm gran abs 0.1 0.0 - 0.1 K/cumm [facility] ([place]) Lymphocyte abs 1.2 0.8 - 3.3 K/cumm [facility] ([place]) Monocyte abs 0.4 0.2 - 0.8 K/cumm [facility] ([place]) Eosinophil abs 0.1 0.0 - 0.5 K/cumm [facility] ([place]) Basophil abs 0.1 0.0 - 0.1 K/cumm [facility] ([place]) Neutrophil pct 60.2 % [facility] ([place]) Comment: Interpretive Data Percent cell count reference ranges are not reported, since discordance with absolute values may lead to misinterpretation of CBC data. Current Interpretive Data was last revised on 2017. Imm gran pct 1.1 % [facility] ([place]) Comment: Interpretive Data Percent cell count reference ranges are not reported, since discordance with absolute values may lead to misinterpretation of CBC data. Current Interpretive Data was last revised on 2017. Lymphocyte pct 26.3 % [facility] ([place]) Comment: Interpretive Data Percent cell count reference ranges are not reported, since discordance with absolute values may lead to misinterpretation of CBC data. Current Interpretive Data was last revised on 2017. Monocyte pct 8.1 % [facility] ([place]) Comment: Interpretive Data Percent cell count reference ranges are not reported, since discordance with absolute values may lead to misinterpretation of CBC data. Current Interpretive Data was last revised on 2017. Eosinophil pct 3.0 % [facility] ([place]) Comment: Interpretive Data Percent cell count reference ranges are not reported, since discordance with absolute values may lead to misinterpretation of CBC data. Current Interpretive Data was last revised on 2017. Basophil pct 1.3 % [facility] ([place]) Comment: Interpretive Data Percent cell count reference ranges are not reported, since discordance with absolute values may lead to misinterpretation of CBC data. Current Interpretive Data was last revised on 2017. Blood 06/08/2023 8:33 AM CDT 06/08/2023 9:13 AM CDT us La Kearney MD LAB BLOOD ORDERABLES Final Result [facility] ([place]) 1 [facility] Department [place] [address] * CBC with auto differential (06/08/2023 8:33 AM CDT) WBC 4.7 3.8 - 9.9 K/cumm [facility] ([place]) Hgb 14.7 13.0 - 17.5 g/dL [facility] ([place]) Hct 42.7 38.9 - 50.3 % [facility] ([place]) Plt 197 150 - 400 K/cumm [facility] ([place]) MPV 10.4 9.1 - 12.3 fL [facility] ([place]) RBC 4.61 4.30 - 5.80 M/cumm [facility] ([place]) MCV 92.6 81.3 - 96.4 fL [facility] ([place]) MCH 31.9 27.1 - 33.3 pg [facility] ([place]) MCHC 34.4 32.3 - 35.7 g/dL [facility] RDW CV 12.4 11.1 - 14.9 % [facility] ([place]) RDW SD 42.0 35.7 - 48.1 fL [facility] ([place]) NRBC abs 0.00 0.00 - 0.01 K/cumm [facility] Blood 06/08/2023 8:33 AM CDT 06/08/2023 9:13 AM CDT Narrative [facility] ([place] - 06/08/2023 9:22 AM CDT fasting La Kearney MD LAB BLOOD ORDERABLES Final Result [facility] 1 [facility] Department [place] [address] * (ABNORMAL) Comprehensive metabolic panel (06/08/2023 8:33 AM CDT) Sodium 140 135 - 145 mmol/L [facility] ([place]) Potassium, pl 4.1 3.3 - 4.9 mmol/L [facility] ([place] Chloride 106 97 - 110 mmol/L [facility]) CO2 24 22 - 32 mmol/L [facility] ([place]) Anion gap 11 2 - 15 mmol/L [facility] BUN 14 6 - 25 mg/dL [facility] Creatinine 1.12 0.80 - 1.30 mg/dL [facility] ([place]) Glucose 102 70 - 199 mg/dL [facility] ([place]) [...] 1.2 mg/dL [facility] ([place]) Protein, pl 6.4(L) 6.5 - 8.5 g/dL [facility] ([place]) Albumin 4.5 3.5 - 5.0 g/dL [facility] ([place]) Alk phos 94 40 - 130 Units/L [facility] ([place]) ALT 31 7 - 55 Units/L [facility] ([place]) AST 23 10 - 50 Units/L [facility] ([place]) Blood 06/08/2023 8:33 AM CDT 06/08/2023 9:13 AM CDT Narrative [facility] ([place]) - 06/08/2023 9:51 AM CDT fasting La Kearney MD LAB BLOOD ORDERABLES Final Result [facility] ([place]) 1 [facility] Department [place] [address] * Lipid panel (06/08/2023 8:33 AM CDT) Cholesterol 163 30 - 199 mg/dL [facility] ([place]) Comment: Interpretive Data Ages < or = 19 years ??Acceptable: ? <170 mg/dL ??Borderline high: ??170-199 mg/dL ??High: ? >or= 200 mg/dL Ages > or = 20 years ??Desirable: ?<200 mg/dL ??Borderline high: ??200-239 mg/dL ??High: ? >or= 240 mg/dL Literature References: 1. Expert Panel on Integrated Guidelines for Cardiovascular Health and Risk Reduction in Children and Adolescents. Pediatrics 2011;128:S213 2. NCEP Expert Panel. Circulation 2004;110:227 Current Interpretive Data was last revised on 2018. Triglycerides 109 <=149 mg/dL [facility] ([place]) Comment: Interpretive Data Ages < or = 9 years ??Acceptable: ? <75 mg/dL ??Borderline high: ??75-99 mg/dL ??High: ? >or= 100 mg/dL Ages 10 to 20 years ??Acceptable: ? <90 mg/dL ??Borderline high: ??90-129 mg/dL ??High: ? >or= 130 mg/dL Ages > or = 20 years ??Desirable: ?<150 mg/dL ??Borderline high: ??150-199 mg/dL ??High: ? 200-499 mg/dL ?Very high: ?? >or= 499 mg/dL Literature References: 1. Expert Panel on Integrated Guidelines for Cardiovascular Health and Risk Reduction in Children and Adolescents. Pediatrics 2011;128:S213 2. NCEP Expert Panel. Circulation 2004;110:227 Current Interpretive Data was last revised on 2018. HDL 43 >=40 mg/dL [facility] ([place]) Comment: Interpretive Data Ages < or = 19 years ??Acceptable: ? >45 mg/dL ??Borderline low: ?? 40-45 mg/dL ??Low: ? <40 mg/dL Ages > or = 20 years ??Desirable: ?>or= 60 mg/dL ??Low: ? <40 mg/dL Literature References: 1. Expert Panel on Integrated Guidelines for Cardiovascular Health and Risk Reduction in Children and Adolescents. Pediatrics 2011;128:S213 2. NCEP Expert Panel. Circulation 2004;110:227 Current Interpretive Data was last revised on 2018. LDL, calculated 98 <=129 mg/dL [facility] ([place]) Comment: Interpretive Data Ages < or = 19 years ??Acceptable: ? <110 mg/dL ??Borderline high: ??110-129 mg/dL ??High: ?>or= 130 mg/dL Ages > or = 20 years ??Optimal: ? <100 mg/dL ??Near optimal: ?100-129 mg/dL ??Borderline high: ?? 130-159 mg/dL ??High: ?>160 mg/dL Literature References: 1. Expert Panel on Integrated Guidelines for Cardiovascular Health and Risk Reduction in Children and Adolescents. Pediatrics 2011;128:S213 2. NCEP Expert Panel. Circulation 2004;110:227 Current Interpretive Data was last revised on 2018. Non-HDL Cholesterol 120 mg/dL [facility] ([place]) Comment: Interpretive Data Ages < or = 19 years ??Acceptable: ?<120 mg/dL ??Borderline high: ??120-144 mg/dL ??High: ?>145 mg/dL Ages > or = 20 years ??When triglycerides are >200 mg/dL, Non-HDL cholesterol is a secondary target of ? therapy with treatment goals that are 30 mg/dL greater than the LDL cholesterol target. ? Literature References: 1. Expert Panel on Integrated Guidelines for Cardiovascular Health and Risk Reduction in Children and Adolescents. Pediatrics 2011;128:S213 2. NCEP Expert Panel. Circulation 2004;110:227 Current Interpretive Data was last revised on 2018. Chol/HDL ratio 4 [facility] ([place]) Blood 06/08/2023 8:33 AM CDT 06/08/2023 9:13 AM CDT Narrative [facility] ([place]) - 06/08/2023 9:51 AM CDT fasting La Kearney MD LAB BLOOD ORDERABLES Final Result [facility]) 1 [facility] [place] [address] * TSH (06/08/2023 8:33 AM CDT) [facility] Thyroid Stimulating Hormone 1.59 0.30 - 4.20 mcIUnit/mL [facility]era[facility]) Blood 06/08/2023 8:33 AM CDT 06/08/2023 9:13 AM CDT Narrative [facility] ([place]) - 06/08/2023 9:51 AM CDT fasting La Kearney MD LAB BLOOD ORDERABLES Final Result [facility]) 1 [facility] [place] [address] * T4, free (06/08/2023 8:33 AM CDT) [facility] Free T4 1.06 0.90 - 1.70 ng/dL [facility] ([place]) Blood 06/08/2023 8:33 AM CDT 06/08/2023 9:13 AM CDT Narrative [facility]) - 06/08/2023 9:51 AM CDT fasting La Kearney MD LAB BLOOD ORDERABLES Final Result [facility]) 1 [facility] [place] [address] * Hepatitis C antibody Blood (06/08/2023 8:33 AM CDT) [facility] Hep C Ab Nonreactive Nonreactive Comment: Interpretive [...] last revised on 2019. Testing performed by: [facility], [address] [place] [address]., [address] Blood 06/08/2023 8:33 AM CDT 06/08/2023 11:10 AM CDT Narrative [facility] ([place]) - 06/08/2023 11:46 AM CDT fasting La Kearney MD LAB MICROBIOL OGY - GENERAL ORDERABLES Edited Result - Final [facility] ([place]) 1 [facility] [place] [address] * HIV 1/2 Antibody plus p24 Antigen Blood (06/08/2023 8:33 AM CDT) Pathologist [facility] HIV 1/2 ab + p24 ag Nonreactive Nonreactive [facility] ([place]) Comment: Nonreactive for HIV-1 antigen and HIV-1/HIV-2 antibodies. No laboratory evidence of HIV infection. If acute HIV infection is suspected, consider testing for HIV-1 RNA. Testing performed by: [facility], [address] [place] [address]., [address] Blood 06/08/2023 8:33 AM CDT 06/08/2023 11:10 AM CDT Narrative [facility] ([place]) - 06/08/2023 12:24 PM CDT fasting La Kearney MD LAB MICROBIOLOGY - GE NERAL ORDERABLES Final Result [facility] ([place]) 1 [facility] [place] [address] * Hemoglobin A1c (06/08/2023 8:33 AM CDT) Hgb A1C 5.3 4.0 - 5.6 % [facility] ([place]) Estimated Average Glucose 105 mg/dL [facility] ([place]) Comment: The ADA recommends reporting an estimated Average Glucose (eAG) with all Hemoglobin A1c results using the equation derived from a study of 507 normal and diabetic adults. ??Minority populations were underrepresented and children were not included. ?? (Diabetes Care 31:9134-8820, 2008). ??The eAG is not equivalent to a fasting glucose. Blood 06/08/2023 8:33 AM CDT 06/08/2023 9:13 AM CDT Narrative [facility] ([place]) - 06/08/2023 9:47 AM CDT fasting La Kearney MD LAB BLOOD ORDERABLES Final Result [facility] ([place]) 1 [facility] Department [place] [address] documented in this encounter Visit Diagnoses Diagnosis Mixed hyperlipidemia Essential hypertension Unspecified essential hypertension IGT (impaired glucose tolerance) Impaired glucose tolerance test Encounter for screening for HIV Need for hepatitis C screening test Special screening examination for other specified viral diseases documented in this encounter Care Teams Warehouse Checker Relationship Specialty Start Date End Date La Kearney MD 2 [facility] [address] [address] PCP - General Family Medicine 10/02/22 Mariaelena Zaidi MD Consulting Physician Sleep Medicine 07/12/21 documented as of this encounter
--- OUTSIDE RECORDS SUMMARY | 2024-09-17 12:49 | XMS_ITS | Encounter Summary ---
Author Organization [facility] Healthcare Address [address] [place] [address] Care Team Providers Care Coconut Cooker Name Role Phone Mariaelena Zaidi MD Unavailable La Kearney MD Primary Care Provide r Reason for Visit * Reason Onset Date Comments Medication Request 10/01/2023 Encounter Details Date Type Department Care Team (Late st Contact Info) Description 10/01/2023 Telephone [facility] Primary Care at [address] [phone] La Kearney MD [address] [place] [address] [address] [place] [address] Medication Request Social History Tobacco Use Types Packs/Day [...] on file 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 Gender Identity Not on file Sexual Orientation Not on file documented as of this encounter Ordered Prescriptions Prescription Sig Dispense Quantity Refills Last Filled Start Date End Date pravastatin (PRAVACHOL) 40 mg tabletIndications:Hy perlipidemia, unspecified hyperlipidemia type Take 1 tablet (40 mg total) by mouth daily 30 tablet 10/01/2023 documented in this encounter Miscellaneous Notes * Telephone Encounter - Abbey Jauregui MA - 10/01/2023 3:46 PM PROSTHETICS LAB TECHNICIAN Patient was notified on medication being refilled THETICS LAB TECHNICIAN * Telephone Encounter - La Kearney MD - 10/01/2023 3:14 PM PROSTHETICS LAB TECHNICIAN Rx sent THETICS LAB TECHNICIAN * Telephone Encounter - Coby Mendez MA - 10/01/2023 3:11 PM PROSTHETICS LAB TECHNICIAN Pt requesting early refill for pravastatin since med is coming through [facility] and may take7-14 days. Pended in chart THETICS LAB TECHNICIAN * Telephone Encounter - Destiny Brown - 10/01/2023 2:28 PM CST Medication Question/Clarification Medication Name(s): pravastatin 40 mg What is the question or clarification needed? Caller requesting short fill of medication, caller has ordered via [facility] will take 7 - 14 and patient is completely out of medication If needed, Pharmacy(s) medication(s) should be sent to: on file Additional Comments: please expedite Sending high priority Does message need to be routed? Yes-Action Needed THETICS LAB TECHNICIAN documented in this encounter Plan of Treatment Not on file documented as of this encounter Visit Diagnoses Diagnosis Hyperlipidemia, unspecified hyperlipidemia type documented in this encounter Discontinued Medications Medication Sig Discontinue Reason Start Date End Da te pravastatin (PRAVACHOL) 40 mg tabletIndications:Hyperlip idemia, unspecified hyperlipidemia type Take 1 tablet (40 mg total) by mouth daily Reorder 10/01/2023 10/01/2023 documented as of this encounter Care Teams Coconut Cooker Relationship Specialty Start Date End Date La Kearney MD [address] [facility] [address] [place] [address] PCP - General Family Medicine 10/02/22 Mariaelena Zaidi MD Consulting Physician Sleep Medicine 07/12/21 documented as of this encounter
--- OUTSIDE RECORDS SUMMARY | 2024-09-17 12:49 | XMS_ITS | Encounter Summary ---
Author Organization [facility] Healthcare Address [address] [place] [address] Care Team Providers Care Expediter Clerk Name Role Phone Mariaelena Zaidi MD Unavailable La Núñez MD Primary Care Provide r Reason for Referral * Diagnostic Imaging (Routine) - Closed Specialty Diagnoses / Procedures Referred By Conttom t Referred To Contact Radiology Diagnoses RLQ abdominal pain Procedures CT Abdomen Pelvis WO Contrast La Núñez MD [address] [place] [address] DR LUCAS [address] [place] [address] Phone: tel: fax: [address] [phone] Referral ID Status Reason Start Date Expiration Date Visits Re quested Visits Authorized [id number] Closed 10/07/2023 11/05/2024 1 1 ERCIAL PILOT Encounter Details Date Type Department Care Team (Late st Contact Info) Description 10/07/2023 Orders Only [facility] Primary Care at [address] [place] [phone] La Núñez MD [address] [facility] [address] [place] [phone] RLQ abdominal pain (Primary Dx) Social History Tobacco [...] on file 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 CT ABDOMEN PELVIS WO [...] PM T: ??10/07/2023 3:06 PM Report ID: [id number] Reading Location: ??[id number] Procedure Note Ziggy Almaguer Jr., MD - [...] by Ziggy Almaguer M.D. CH: Report ID: [id number] Reading Location: [place] [address] La Núñez MD IMG CT PROCEDURES Fin al Result documented in this encounter Visit Diagnoses Diagnosis RLQ abdominal pain- Primary Abdominal pain, right lower quadrant RLQ abdominal pain Abdominal pain, right lower quadrant documented in this encounter Care Teams Expediter Clerk Relationship Specialty Start Date End Date La Núñez MD [address] [place] [address] DR LUCAS [address] [place] [id number] PCP - General Family Medicine 10/02/22 Mariaelena Zaidi MD Consulting Physician Sleep Medicine 07/12/21 documented as of this encounter
--- OUTSIDE RECORDS SUMMARY | 2024-09-17 12:49 | XMS_ITS | Encounter Summary ---
Author Organization [facility] Healthcare Address [address] [place] [address] Care Team Providers Care Special Warfare Operator Name Role Phone Mariaelena Zaidi MD Unavailable La Kearney MD Primary Care Provide r Reason for Visit * Reason Comments PT Initial Eval * Consultation (Routine) - Closed Specialty Diagnoses / Procedures Referred By Contac t Referred To Contact Physical Therapy Diagnoses Neck pain Acute bilateral low back pain with sciatica, sciatica laterality unspecified La Kearney MD [address] [place] [address] Phone: tel: fax: [address] [address] Referral ID Status Reason Start Date Expiration Date V isits Requested Visits Authorized [id number] Closed Evaluate and Treat 06/07/2023 07/06/2024 24 24 Encounter Details Date Type Department Care Team (Late st Contact Info) Description 06/26/2023 4:15 PM CDT Therapy [facility] Physical Therapy - [address] [place] [address] Monroe Tabor, PT Neck pain; Acute bilateral low back pain [...] on file 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 male La Kearney MD [address] [facility] [address] [address] ICD-9-CM ICD-10-CM 1. Neck pain 723.1 M54.2 Ambulatory referral order to Physical Therapy - 2. Acute bilateral low back pain with sciatica, sciatica laterality unspecified 724.2 M54.40 Ambulatory referral order to Physical Therapy - 724.3 PT Initial Eval Subjective History of Present Illness: Jaden reports that he has been having problems with his neck for years.His back has just started bothering him about 6 months ago. He went to his doctor and had x-rays. He was also given an order for PT. Current Symptoms: He complains of pain in his neck. It also locks up on him. He also reports back discomfort. Pain: Pain location: neck/ back Current Pain Ratin-4/10 0/10 At worst Pain Ratin/10 6/10 At best Pain Ratin-4/10 0/10 Aggravating Factors: wearing hard hat, looking up Alleviating Factors: rest Patient Goals: Eliminate pain in neck or low back Objective Inspection: No obvious deformities noted in low back or neck. Cervical AROM: Motion in Degrees Flexion 60 Extension 40 Side bending Right 30 Side bending Left 30 Rotation Right 70 Rotation Left 70 Lumbar AROM: Flexion 60 Extension 10 Side bending Right 25 Side bending Left 25 Upper Extremity AROM: Upper extremity range of motion is WFL. Lower Extremity AROM: Lower extremity range of motion is WFL. Upper Extremity Strength: Left Right Shoulder Flexion 5/5 5/5 Shoulder Abduction 5/5 5/5 Shoulder Extension 5/5 5/5 Shoulder External Rotation 5/5 5/5 Shoulder Internal Rotation 5/5 5/5 Elbow Flexion 5/5 5/5 Elbow Extension 5/5 5/5 Wrist Flexion 5/5 5/5 Wrist Extension 5/5 5/5 Lower Extremity Strength: Left Right Hip Flexion 5/5 5/5 Hip Abduction 5/5 5/5 Hip Extension 5/5 5/5 Hip Internal Rotation 5/5 5/5 Hip External Rotation 5/5 5/5 Knee Flexion 5/5 5/5 Knee Extension 5/5 5/5 Ankle Dorsiflexion 5/5 5/5 Ankle Plantarflexion 5/5 5/5 Palpation: There is no tenderness elicited to palpation. Treatment Provided: Pre Mod stimulation to low back and neck with hot packs Manual traction with sub occipital release Stretching for upper trap Manual stretching hips and low back Traction over trinidadian ball Patient was instructed to perform tennis ball sub occipital release and upper trap stretch and to continue with stretching program for low back. Patient requires skilled therapy to restore prior level of function utilizing the treatment and modalities described in this plan of Care. Following the evaluation and extensive patient education regarding diagnosis, prognosis, and treatment goals, the patient (parent/guardian, power of trade mark attorney epstein) actively participated in the creation of the current goals and agrees to the current treatment plan. Assessment/Plan Jaden was seen this date for initial evaluation of his neck and low back. He reports pain in both of these areas. He displays slight decreased range of motion. There is no tenderness elicited to palpation. There is good strength noted in bilateral upper extremities and lower extremities. Impairments: activity tolerance, endurance, muscle length, lacks appropriate home exercise program,flexibility, abnormal gait, abnormal or restricted ROM, decreased mobility, impaired physical strength, pain with function. STG: Patient to be independent with HEP. NEW Patient to decrease pain level to 0-2/10. NEW LTG: Patient to increase range of motion as tolerated. NEW Patient to improve flexibility as tolerated. NEW Patient to return to prior level of function and self care. NEW Planned modality interventions: cryotherapy, ultrasound, thermotherapy (Hydrocollator packs), interferential current Planned therapy interventions: abdominal trunk stabilization, functional ROM exercises, manual therapy, neuromuscular re-education, spinal/joint mobilization, therapeutic activities, strengthening, joint mobilization, gait training, endurance training, flexibility, home exercise program, soft tissue mobilization, stretching. Assessment Prognosis: good Plan Start time: 1600 End time: 1700 Therapy options: will be seen for skilled therapy services Frequency: 2 x/week Duration in visits: 12 visits Discussed with: patient PRICILA Elaine documented in this encounter Plan of Treatment Not on file documented as of this encounter Visit Diagnoses Diagnosis Neck pain Cervicalgia Acute bilateral low back pain with sciatica, sciatica laterality unspecified documented in this encounter Orders Outpatient Referral Count Last Ordered Date st Ordered Date AMB REFERRAL ORDER TO PHYSICAL THERAPY 1 documented in this encounter Care Teams Special Warfare Operator Relationship Specialty Start Date End Date La Kearney MD [address] [facility] [address] [place] [id number] PCP - General Family Medicine 10/02/22 Mariaelena Zaidi MD Consulting Physician Sleep Medicine 07/12/21 documented as of this encounter
--- OUTSIDE RECORDS SUMMARY | 2024-09-17 12:49 | XMS_ITS | Encounter Summary ---
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 No * Telephone Encounter - Daniella Dumont - 06/26/2023 3:51 PM CDT Call Back Caller???s Concern: Patient informed. Caller???s Call back #: Does message need to be routed? No * Telephone Encounter - Denia Santos LPN - 06/26/2023 3:37 PM CDT LMTCB- Please see providers message below. * Telephone Encounter - Denia Santos LPN - 06/26/2023 3:36 PM CDT ----- Message from La Kearney MD sent at 06/26/2023 2:57 PM CDT ----- Can let patient know that his labs look good and the kidney function improved documented in this encounter Plan of Treatment Not on file documented as of this encounter Visit Diagnoses Not on filedocumented in this encounter Care Teams Insurance Claims Assistant Relationship Specialty Start Date End Date La Kearney MD [address] [place] [address] [place] [address] PCP - General Family Medicine 10/02/22 Mariaelena Zaidi MD Consulting Physician Sleep Medicine 07/12/21 documented as of this encounter
--- OUTSIDE RECORDS SUMMARY | 2024-09-17 12:50 | XMS_ITS | Encounter Summary ---
Author Organization [facility] [employer] [facility] Address [address] [place] [address] Phone Care Team Providers Care Sort Manager Name Role Phone Mariaelena Zaidi MD Unavailable La Kearney MD Primary Care Provide r Reason for Visit * Reason Comments Follow-up * Consultation (Routine) - Closed Specialty Diagnoses / Procedures Referred By Conttom t Referred To Contact Urology Diagnoses Retention of urine Laura Tapia NP [address] [place] [address] Phone: tel: fax: [facility] (All Locations) Referral ID Status Reason Start Date Expiration Date V isits Requested Visits Authorized [id number] Closed Specialty Services Required 08/20/2022 09/19/2023 1 1 Encounter Details Date Type Department Care Team (Late st Contact Info) Description 01/29/2023 2:40 PM CDT Office Visit [facility]) - [facility] Urology [address] 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 Gender Identity Not on file Sexual Orientation Not on file documented as of this encounter Last Filed Vital Signs Vital Sign Reading Time Taken Comments Blood Pressure - - Pulse - - Temperature 36.3 ??C (97.4 ??F) 01/29/2023 3:04 PM CD T Respiratory Rate - - Oxygen Saturation - - Inhaled Oxygen Concentration - - Weight - - Height - - Body Mass Index - - documented in this encounter Ordered Prescriptions Prescription Sig Dispense Quantity Refills Last Filled Start Date End Date tadalafiL (CIALIS) 20 mg tabletIndications: Erectile dysfunction due to arterial insufficiency Take 1 tablet (20 mg total) by mouth daily as needed for erectile dysfunction Max 1 daily. 20 tablet 3 01/29/2023 documented in this encounter Progress Notes * Shaggy Jang MD - 01/29/2023 2:40 PM CDT Patient ID: Jaden De La Torre, 1970 Chief Complaint: 2 week post UroLift Procedure History of Present Illness: Mr. De La Torre is a 52 y.o. White male who presented in 04/2022 with longstanding LUTS both obstructive and irritative. At present, he recalls having severe frequency, double voiding, post void dribbling and slower stream. He had been on tamsulosin with minimal improvement. He underwent a Greenlight laser in Jun, 2022, and he notes a much improved flow rate. He continues to have double voiding. He has resolution of the urgency and post void dribbling. He presents now with erectile dysfunction since the surgery in Jun, 2022. He has never really had that problem, but he reports poor and unsustained erections. He has used Cialis (?dose) with a goodresponse. ROS All other systems except the HPI are negative. Temp 36.3 ??C (97.4 ??F) Physical Examination Large comfortable appearing White man in No Apparent distress Ambulating easily Abdomen is soft, no distension, no tenderness, no hernia. No suprapubic tenderness. NO CVAT Nl genital exam Results: Results for orders placed or performed in visit on 01/29/23 POCT urinalysis dipstick Result Value Ref Range Glucose, ur, POC Negative Negative MG/DL Ketones, ur, POC Negative Negative Blood, ur, POC Negative Negative pH, ur, POC 5.0 5.0 - 8.0 Protein, ur, POC Trace (A) Negative Nitrite, ur, POC Negative Negative Leukocytes, ur, POC Negative Negative Lot Number [id number] Lab Results Component Value Date PSA 3.65 12/13/2021 PSA 3.20 10/21/2018 PSA 2.52 07/12/2016 Measurement of post-void residual urine by ultrasound, non-imaging. PVR = 80 ml Assessment /Plan Mr. De La Torre is a 52 y.o. WM who is doing fine at 7 months after a laser prostatectomy. He is having some double voiding. He could try tamsulosin, but he elects to observe. Mr. De La Torre erectile dysfunction. 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 He elects to continue on the Cialis. Instructions and script were sent. He has agreed to a trial of Cialis 20 mg. He is instructed to take the medication on an empty stomach at 2 - 3 hours prior to intercourse. He will take 1 pill as needed. documented in this encounter Plan of Treatment Not on file documented as of this encounter Procedures Procedure Name Priority Date/Time Associated Diagnosis Comments POCT URINALYSIS DIPSTICK Routine 01/29/2023 3:58 PM CDT Screening for hematuria or proteinuria MEASURE POST VOID RESIDUAL Routine 01/29/2023 Retention of urine documented in this encounter Results * (ABNORMAL) POCT urinalysis dipstick (01/29/2023 3:58 PM CDT) Glucose, ur, POC Negative Negative MG/DL Ketones, ur, POC Negative Negative Blood, ur, POC Negative Negative pH, ur, POC 5.0 5.0 - 8.0 Protein, ur, POC Trace(A) Negative Nitrite, ur, POC Negative Negative Leukocytes, ur, POC Negative Negative Lot Number [id number] Urine 01/29/2023 3:58 PM CDT Shaggy Jang MD POINT OF CARE TEST BRO ANDRADE Final Result * Measure post void residual (01/29/2023) Narrative Paula Rojas PARTITION ASSEMBLER - 01/29/2023 Measurement of post-voiding residual urine and/or bladder capacity by ultrasound, non-imaging PVR = ??80 ml Shaggy Jang MD NURSING ASSESSMENTS Fin al Result documented in this encounter Visit Diagnoses Diagnosis Retention of urine- Primary Unspecified retention of urine Screening for hematuria or proteinuria Screening for unspecified condition Erectile dysfunction due to arterial insufficiency Benign prostatic hyperplasia with lower urinary tract symptoms, symptom details unspecified documented in this encounter Orders Outpatient Referral Count Last Ordered Date Fir st Ordered Date AMB REFERRAL TO UROLOGY 1 01/29/2023 documented in this encounter Care Teams Sort Manager Relationship Specialty Start Date End Date La Kearney MD 2 [facility] [address] [address] PCP - General Family Medicine 10/02/22 Mariaelena Zaidi MD Consulting Physician Sleep Medicine 07/12/21 documented as of this encounter
--- OUTSIDE RECORDS SUMMARY | 2024-09-17 12:50 | XMS_ITS | Encounter Summary ---
Author Organization 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 There is no clear-cut hernia seen on imaging. There is no lipomas or other masses in the area either. We have discussed itis possible that the ultrasound and CT scan did not catch a very small hernia. We also discussed that it may just be a muscle strain or pull. At initial visit the patient wanted to do a more watchfulwaiting approach. We will continue with this. If symptoms would worsen we will discuss further about course of action. documented in this encounter Plan of Treatment Not on file documented as of this encounter Visit Diagnoses Not on filedocumented in this encounter Care Teams Sack Lifter Relationship Specialty Start Date End Date La Kearney MD [address] [place] [address] DR [address]UC[address] [place] [address] PCP - General Family Medicine 10/02/22 Mariaelena Zaidi MD Consulting Physician Sleep Medicine 07/12/21 documented as of this encounter
--- OUTSIDE RECORDS SUMMARY | 2024-09-17 12:50 | XMS_ITS | Encounter Summary ---
Author Organization [facility] Address [address] [facility] [address] [place] [address] Care Team Providers Care Franchise Specialist Name Role Phone Mariaelena Zaidi MD Unavailable La Kearney MD Primary Care Provide r Encounter Details Date Type Department Care Team (Late st Contact Info) Description 10/02/2022 Orders Only [facility] Primary Care at [address] [place] [address] La Kearney MD [address] [place] [address] [address] [place] [address] Essential hypertension (Primary Dx); IGT (impaired glucose tolerance); Healthcare maintenance Social History Tobacco Use Types [...] points, staff should administer the PHQ-9) 0 10/02/2022 Sex and Gender Information Value Date Recorded Sex Assigned at Not on file 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 Gender Identity Not on file Sexual Orientation Not on file documented as of this encounter Plan of Treatment Not on file documented as of this encounter Visit Diagnoses Diagnosis Essential hypertension- Primary Unspecified essential hypertension IGT (impaired glucose tolerance) Impaired glucose tolerance test Healthcare maintenance documented in this encounter Care Teams Franchise Specialist Relationship Specialty Start Date End Date La Kearney MD [address] [facility] [address] [place] [address] PCP - General Family Medicine 10/02/22 Mariaelena Zaidi MD Consulting Physician Sleep Medicine 07/12/21 documented as of this encounter
--- OUTSIDE RECORDS SUMMARY | 2024-09-17 12:50 | XMS_ITS | Encounter Summary ---
Author Organization [facility] Address [address] [facility] [address] [place] [id number] Care Team Providers Care Pecan Picker Name Role Phone Mariaelena Zaidi MD Unavailable La Kearney MD Primary Care Provide r Reason for Referral * Procedure (Routine) - Closed Specialty Diagnoses / Procedures Referred By Contac t Referred To Contact Diagnoses Left lateral epicondylitis Procedures Epicondylitis injection: L elbow Eileen Aj PA [address] [place] [id number] Phone: tel: fax: [facility] Referral ID Status Reason Start Date Expiration Date Visits Re quested Visits Authorized [id number] Closed 12/24/2022 01/23/2024 1 1 * Diagnostic Imaging (Routine) - Closed Specialty Diagnoses / Procedures Referred By Contac t Referred To Contact Diagnoses Left elbow pain Procedures XR Elbow Left 3 or More Views Eileen Aj PA [address] [place] [address] Phone: tel: fax: [facility] Referral ID Status Reason Start Date Expiration Date Visits Re quested Visits Authorized [id number] Closed 12/24/2022 01/23/2024 1 1 Reason for Visit * Reason Comments Pain * Consultation (Routine) - Closed Specialty Diagnoses / Procedures Referred By Zaida t Referred To Contact Orthopedic Surgery Diagnoses Right lateral epicondylitis La Kearney MD [address] [place] [address] Phone: tel: fax: Clem Bedoya MD [address] [place] [address] Phone: tel: fax: Referral ID Status Reason Start Date Expiration Date V isits Requested Visits Authorized [id number] Closed Specialty Services Required 12/03/2022 01/02/2024 1 1 Encounter Details Date Type Department Care Team (Late st Contact Info) Description 12/24/2022 8:00 AM CDT Office Visit [facility] Orthopedics and Sports Medicine [address] [facility] [address] [place] [id number] Eileen Aj PA [address] [place] [address] Left lateral epicondylitis (Primary Dx); Left elbow pain Social History Tobacco Use Types Packs/Day [...] on file 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 Gender Identity Not on file Sexual Orientation Not on file documented as of this encounter Last Filed Vital Signs Vital Sign Reading Time Taken Comments Blood Pressure 121/73 12/24/2022 8:19 AM CDT Pulse 66 12/24/2022 8:19 AM CDT Temperature - - Respiratory Rate - - Oxygen Saturation - - Inhaled Oxygen Concentration - - Weight 125.6 kg (277 lb) 12/24/2022 8:19 AM CDT Height 188 cm (6' 2 ) 12/24/2022 8:19 AM CDT Body Mass Index 35.56 12/24/2022 8:19 AM CDT documented in this encounter Progress Notes * Eileen Aj PA - 12/24/2022 8:00 AM CDTAssociated Order(s): Epicondylitis injection: L elbow Post-Procedure Diagnose(s): Left lateral epicondylitis Images from the original note were not included. Follow up visit with new complaint Subjective CHIEF COMPLAINT He had concerns including Pain of the Left Elbow. HISTORY OF PRESENT ILLNESS 52-year-old male presents as a new patient with complaints of left elbow pain. States pain has beenpresent for the past 3 months. Described as sharp aching moderate in severity improved with rest worsened with moving it. States pain is activity related. He had seen his primary care about 1 month ago who prescribed Medrol Dosepak which helped for a short period of time but his symptoms returned shortly thereafter. 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 He has tried Medrol Dosepak and elbow brace for conservative management. Denies numbness, tingling, weakness, wrist pain, shoulder pain. Pain Assessment Pain Assessment: 0-10 Pain Score: 5 - Moderate pain Pain Location: Elbow Pain Orientation: Left Pain Descriptors: Sharp, Aching Pain Frequency: With movement/cough PAST MEDCIAL HISTORY He has a past medical history of Anxiety disorder, Depression, Enlarged prostate, Erectile dysfunction, Generalized abdominal pain (06/27/2019), GERD (gastroesophageal reflux disease), Hemorrhoids, Hyperlipidemia, Hypertension, Hypoglycemia, Palpitation, Rectal pain (05/25/2020), Sleep apnea, and Urinary retention. He has no past medical history of Anemia, Asthma, Blood clot associated with vein wall inflammation, Cancer (CMS/HCC) (HCC), CHF (congestive heart failure) (CMS/HCC) (HCC), COPD (chronic obstructive pulmonary disease) (HCC), Coronary artery disease, History of chemotherapy, Liver disease, Malignanthyperthermia, Motion sickness, PONV (postoperative nausea and vomiting), Seizures (HCC), or Stroke ([facility]). PAST SURGICAL HISTORY He has a past surgical history that includes Shoulder surgery (Right); Carpal tunnel release (Bilateral); IR Biopsy Abdomen Retroperitoneal (N/A, 02/06/2019); Band hemorrhoidectomy; Knee arthroscopy (Right, 02/2006); Colonoscopy (08/26/2020); and Prostate surgery. MEDICATIONS He has a current medication list which includes the following prescription(s): bupropion xl, lisinopril, metoprolol xl, pramipexole, pravastatin, and methylprednisolone. ALLERGIES He has No Known Allergies. SOCIAL HISTORY He reports that he has never smoked. He quit smokeless tobacco use about 4 years ago. His smokelesstobacco use included chew. He reports current drug use. Drug: Alcohol. No alcohol history on file. FAMILY HISTORY His family history includes Cancer in his father and mother; Hypertension in his mother; Leukemia in his mother; Throat cancer in his father. REVIEW OF SYSTEMS Review of Systems Constitutional: Negative for activity change, appetite change, chills, fever and unexpected weight change. HENT: Negative for congestion, dental problem, ear pain, hearing loss, nosebleeds, tinnitus and voice change. Eyes: Negative for pain and visual disturbance. Respiratory: Negative for apnea, cough, chest tightness and shortness of breath. Cardiovascular: Negative for chest pain, palpitations and leg swelling. Gastrointestinal: Negative for blood in stool, constipation, diarrhea, nausea and vomiting. Endocrine: Negative for cold intolerance and heat intolerance. Genitourinary: Negative for difficulty urinating, hematuria and urgency. Musculoskeletal: Positive for arthralgias and myalgias. Skin: Negative for color change, rash and wound. Allergic/Immunologic: Negative for environmental allergies. Neurological: Negative for dizziness, syncope, numbness and headaches. Hematological: Negative for adenopathy. Does not bruise/bleed easily. Psychiatric/Behavioral: Negative for confusion. The patient is not nervous/anxious and is not hyperactive. Objective PHYSICAL EXAM BP 121/73 Pulse 66 Ht 188 cm (6' 2 ) Wt 125.6 kg (277 lb) BMI 35.56 kg/m?? Right elbow The patient has normal inspection, palpation, range of motion, strength, and stability of the rightelbow. Left elbow Inspection The patient has normal inspection of the left elbow. Palpation Tenderness: present. The tenderness is location in the lateral epicondyle area(s). Range of motion The patient has normal range of motion of the left elbow. The patient has pain with range of motion. The patient has pain with active forearm supination. Stability The patient has normal stability of the left elbow. Strength The patient has 5/5 strength throughout with exceptions as noted below. Forearm supination: 4/5 and painful Neurovascular The patient has normal vascular on the left side of their body. The patient has normal sensation on the left side of their body. Tests Varus: negative Valgus: negative Tinel's sign:negative Elbow flexion:negative Ulnar nerve subluxation: negative REVIEW OF X-RAYS/STUDIES/LABS XR Elbow Left 3 or More Views Views of the left elbow were reviewed and interpreted today. No evidence of fracture, subluxation, destructive osseous lesion. No abnormalities noted in regards to soft tissues. Joint spaces well-maintained. Assessment/Plan Jaden was seen today for pain. Diagnoses and all orders for this visit: Left lateral epicondylitis - Ambulatory referral to Orthopedic Surgery - Ambulatory referral order to Occupational Therapy -; Future Left elbow pain - XR Elbow Left 3 or More Views - Ambulatory referral order to Occupational Therapy -; Future Other orders - Epicondylitis injection Epicondylitis injection: L elbow Performed by: Eileen Aj PA Authorized by: Eileen Aj PA Epicondylitis Injection: Consent Given by: Patient Site marked: the procedure site was marked Verbal consent obtained?: Yes Supporting Documentation: Indications: Pain Procedure Details: Condition: lateral epicondylitis Site: L elbow Prep: patient was prepped and draped in usual sterile fashion Needle Size: 25 G Approach: Lateral Ultrasound guidance: No Medications: 1.5 mL lidocaine 20 mg/mL (2 %); 40 mg methylPREDNISolone acetate 80 mg/mL Patient tolerance: Patient tolerated the procedure well with no immediate complications PLAN I reviewed and discussed exam and xray findings in detail with patient. I discussed treatment options to include non-operative management which would consist of physical therapy with or without cortisone injection, NSAIDs/analgesics PRN (if able to take), ice, and heat as tolerated and surgical options with risks and benefits of each. The patient elected to proceed with non-operative management. Corticosteroid injection administered into the left lateral epicondyle without immediate complication. Patient tolerated procedure well. Post-injection instructions were provided. We will also send order to occupational therapy for 1 visit to develop home exercise program at [facility] at his request. Advised further conservative management including avoidance of aggravating factors, ice, heat, NSAIDs, Tylenol, brace, topical analgesic creams. Patient will follow up in 3 months at which time we may repeat injection if symptoms necessitate otherwise he may follow up as needed. Patient was advised that if symptoms do not improve with conservative management would recommend he follow up with Dr. Bedoya for surgical consultation. All questions were answered appropriately. Patient verbalized understanding is agreeable with this treatment plan. There may be grammatical errors in this note due to use of voice recognition software. SANGEETA Gallardo documented in this encounter Plan of Treatment Not on file documented as of this encounter Procedures Procedure Name Priority Date/Time Associated Diagnosis Comments XR ELBOW LEFT 3 OR MORE VIEWS Schedule Routine, Read Routine (OP Routine) 12/24/2022 8:12 AM CDT Left elbow pain VA INJECTION 1 TENDON SHEATH/LIGAMENT APONEUROSIS Routine 12/24/2022 8:00 AM CDT Left lateral epicondylitis documented in this encounter Results * XR Elbow Left 3 or More Views (12/24/2022 8:12 AM CDT) Anatomical Region Laterality Modality Upper Extremities, Elbow Left Digital Radiography Narrative 12/24/2022 8:16 AM CDT Views of the left elbow were reviewed and interpreted today. ??No evidence of fracture, subluxation, destructive osseous lesion. ??No abnormalities noted in regards to soft tissues. ??Joint spaces well-maintained. us Eileen [facility] XR PROCEDURES Gisele l Result * VA INJECTION 1 TENDON SHEATH/LIGAMENT APONEUROSIS (12/24/2022 8:00 AM CDT) Narrative Eileen Aj PA - 12/24/2022 8:00 AM CDT Eileen Aj PA ? 12/24/2022 ??8:49 AM Epicondylitis injection: L elbow Performed by: Eileen Aj PA Authorized by: Eileen Aj PA ?? Epicondylitis Injection: ??Consent Given by: ??Patient ??Site marked: the procedure site was marked ?Verbal consent obtained?: Yes ?? Supporting Documentation: ??Indications: ??Pain Procedure Details: ??Condition: lateral epicondylitis ?Site: ??L elbow ??Prep: patient was prepped and draped in usual sterile fashion ?Needle Size: ??25 G ??Approach: ??Lateral ??Ultrasound guidance: No ?Medications: ??1.5 mL lidocaine 20 mg/mL (2 %); 40 mg methylPREDNISolone acetate 80 mg/mL ??Patient tolerance: ??Patient tolerated the procedure well with no immediate complications Eileen [facility] Final Result documented in this encounter Visit Diagnoses Diagnosis Left lateral epicondylitis- Primary Left elbow pain Pain in joint, upper arm documented in this encounter Administered Medications Inactive Administered Medications - up to 3 most recent administrations Medication Order MAR Action Action Date Dose Rate Site lidocaine (XYLOCAINE) 20 mg/mL (2 %) injection 1.5 mL 1.5 mL, One-Time Injection, Starting on Sat12/24/22 at 0849, For 1 dose, Indications: Administration of Local AnesthesiaIndications:Administ ration of Local Anesthesia Given 12/24/2022 8:49 AM CDT 1.5 mL Left Elbow methylPREDNISolone acetate (DEPO-medrol) injection 40 mg 40 mg, intra-articular, One-Time Injection, Starting on Sat12/24/22 at 0849, For 1 doseIndications:Left lateral epicondylitis Given 12/24/2022 8:49 AM CDT 40 mg Left Elbow documented in this encounter Orders Outpatient Referral Count Last Ordered Date Fir st Ordered Date AMB REFERRAL TO ORTHOPEDIC SURGERY 1 2022 documented in this encounter Care Teams Pecan Picker Relationship Specialty Start Date End Date La Kearney MD [address] [place] [address] [place] [address] PCP - General Family Medicine 10/02/22 Mariaelena Zaidi MD Consulting Physician Sleep Medicine 07/12/21 documented as of this encounter
--- OUTSIDE RECORDS SUMMARY | 2024-09-17 12:50 | XMS_ITS | Encounter Summary ---
Author Organization [facility] Address [address] [facility] [address] [place] [address] Care Team Providers Care Label Machine Operator Name Role Phone Mariaelena Zaidi MD Unavailable La Kearney MD Primary Care Provide r Encounter Details Date Type Department Care Team (Late st Contact Info) Description 10/02/[address] 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 Gender Identity Not on file Sexual Orientation Not on file documented as of this encounter Progress Notes * Jaclyn Garrido - 10/02/2022 1:30 PM CST error S PROJECT COORDINATOR documented in this encounter Plan of Treatment Not on file documented as of this encounter Visit Diagnoses Not on filedocumented in this encounter Care Teams Label Machine Operator Relationship Specialty Start Date End Date La Kearney MD [address] [facility] [address] [address] PCP - General Family Medicine 10/02/22 Mariaelena Zaidi MD Consulting Physician Sleep Medicine 07/12/21 documented as of this encounter
--- OUTSIDE RECORDS SUMMARY | 2024-09-17 12:50 | XMS_ITS | Encounter Summary ---
Author Organization [facility] Address [address] [place] [address] Care Team Providers Care Ship'S Master Name Role Phone Mariaelena Zaidi MD Unavailable La Kearney MD Primary Care Provide r Reason for Referral * Consultation (Routine) - Closed Specialty Diagnoses / Procedures Referred By Contac t Referred To Contact Physical Therapy Diagnoses Neck pain Acute bilateral low back pain with sciatica, sciatica laterality unspecified La Kearney MD [address] [place] [address] [address] Phone: tel: fax: [address] [address] Referral ID Status Reason Start Date Expiration Date V isits Requested Visits Authorized [id number] Closed Evaluate and Treat 06/07/2023 07/06/2024 24 24 Question Answer PTRFR PT Evaluate and Treat Therapy options discussed with patient? Yes Location provided for therapy services is: Patient requested/Patient preferred Please select the performing region: [facility] [[id number]] # of visits: 24 Comments Human motion Encounter Details Date Type Department Care Team (Late st Contact Info) Description 06/07/2023 Orders Only [facility] Primary Care at [address] [place] [phone] La Kearney MD [address] [place] [address] Neck pain (Primary Dx); Acute bilateral low back pain with sciatica, sciatica laterality unspecified; Mixed hyperlipidemia; Essential hypertension; Encounter for screening for HIV; Need for hepatitis C screening test; IGT (impaired glucose tolerance) Social History Tobacco Use Types Packs/Day Years [...] on file 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 ?? There is mcbx-nz-inlkesrn L2-S1 degenerative disc disease, greatest at L2-L3 and L4-L5. ??Inferior lumbar facet osteoarthritis is present. ??Left iliac enostosis is noted. ?? There is inferior lumbar facet osteoarthritis. IMPRESSION: Mild C3-C5 and moderate C5-C7 degenerative disc disease with mild bilateral C5-C7 foraminal impingement. Lmgq-zv-oolbjjee L2-S1 degenerative disc disease, greatest at L2-L3 and L4-L5. THIS IS AN ELECTRONICALLY VERIFIED FINAL REPORT 06/08/2023 5:53 PM - Electronically signed by ??Michael Xiong M.D. MF: CHANI D: ??06/08/2023 5:53 PM T: ??06/08/2023 5:53 PM Report ID: [id number] Reading Location: ??[id number] Procedure Note Michael Xiong MD - 06/08/2023 [...] tree years ago and an injury in [place] 30 years ago. FINDINGS: Five views lumbar [...] mild retrolisthesis of L3 onL4. There is kvte-lo-btlzsoju L2-S1 degenerative disc disease, greatest atL2-L3 and L4-L5. Inferior lumbar facet osteoarthritis is present. Left iliac enostosis is noted. There is inferior lumbar facet osteoarthritis. IMPRESSION: Mild C3-C5 and moderate C5-C7 degenerative disc disease with mildbilateral C5-C7 foraminal impingement. Rmwp-kr-ndeqhaoj L2-S1 degenerative disc disease, greatest at L2-L3 andL4-L5. THIS IS AN ELECTRONICALLY VERIFIED FINAL REPORT 06/08/2023 5:53 PM - Electronically signed by Michael Xiong M.D. MF: CHANI Report ID: [id number] Reading Location: [place] [address] us La Kearney MD IMG XR PROCEDURES Fin [...] of L3 on L4. ?? There is auro-sn-codpqjeg L2-S1 degenerative disc disease, greatest at L2-L3 and L4-L5. ??Inferior lumbar facet osteoarthritis is present. ??Left iliac enostosis is noted. ?? There is inferior lumbar facet osteoarthritis. IMPRESSION: Mild C3-C5 and moderate C5-C7 degenerative disc disease with mild bilateral C5-C7 foraminal impingement. Bynk-ju-kpmjqokv L2-S1 degenerative disc disease, greatest at L2-L3 and L4-L5. THIS IS AN ELECTRONICALLY VERIFIED FINAL REPORT 06/08/2023 5:53 PM - Electronically signed by ??Michael Xiong M.D. MF: CHANI D: ??06/08/2023 5:53 PM T: ??06/08/2023 5:53 PM Report ID: [id number] Reading Location: ??[id number] Procedure Note Michael Xiong MD - 06/08/2023 [...] tree years ago and an injury in [place] 30 years ago. FINDINGS: Five views lumbar [...] mild retrolisthesis of L3 onL4. There is jwtm-vv-xccdhgih L2-S1 degenerative disc disease, greatest atL2-L3 and L4-L5. Inferior lumbar facet osteoarthritis is present. Left iliac enostosis is noted. There is inferior lumbar facet osteoarthritis. IMPRESSION: Mild C3-C5 and moderate C5-C7 degenerative disc disease with mildbilateral C5-C7 foraminal impingement. Pfej-vd-jooihijp L2-S1 degenerative disc disease, greatest at L2-L3 andL4-L5. THIS IS AN ELECTRONICALLY VERIFIED FINAL REPORT 06/08/2023 5:53 PM - Electronically signed by Michael Xiong M.D. MF: CHANI Report ID: [id number] Reading Location: [id number] La Kearney MD IMG XR PROCEDURES Fin al Result * Hemoglobin A1c (06/08/2023 8:33 AM CDT) Hgb A1C 5.3 4.0 - 5.6 % [facility] Estimated Average Glucose 105 mg/dL [facility] Comment: The ADA recommends reporting an estimated Average Glucose (eAG) with all Hemoglobin A1c results using the equation derived from a study of 507 normal and diabetic adults. ??Minority populations were underrepresented and children were not included. ?? (Diabetes Care 31:6303-8255, 2008). ??The eAG is not equivalent to a fasting glucose. Blood 06/08/2023 8:33 AM CDT 06/08/2023 9:13 AM CDT Narrative [facility] - 06/08/2023 9:47 AM CDT fasting La Kearney MD LAB BLOOD ORDERABLES Final Result [facility] ([place] 1 [facility] Department of Laboratories [place], [place] [id number] * HIV 1/2 Antibody plus p24 Antigen Blood (06/08/2023 8:33 AM CDT) Pathologist [facility] HIV 1/2 ab + p24 ag Nonreactive Nonreactive [facility] ([place] Comment: Nonreactive for HIV-1 antigen and HIV-1/HIV-2 antibodies. No laboratory evidence of HIV infection. If acute HIV infection is suspected, consider testing for HIV-1 RNA. Testing performed by: [facility], [address] [place] [address], [place]., [address] Blood 06/08/2023 8:33 AM CDT 06/08/2023 11:10 AM CDT Narrative [facility] - 06/08/2023 12:24 PM CDT fasting La Kearney MD LAB MICROBIOLOGY - GE NERAL ORDERABLES Final Result Performing Organization Address [facility]/ZIP Co de Phone Number [facility] 1 [facility] [place] [address] * Hepatitis C antibody Blood (06/08/2023 8:33 AM CDT) Pathologist [facility] Hep C Ab Nonreactive Nonreactive Comment: Interpretive [...] last revised on 2019. Testing performed by: [facility], [address] [place] [address]., [address] Blood 06/08/2023 8:33 AM CDT 06/08/2023 11:10 AM CDT Narrative [facility] - 06/08/2023 11:46 AM CDT fasting La Kearney MD LAB MICROBIOL OGY - GENERAL ORDERABLES Edited Result - Final [facility] 1 [facility] [place] [address] * T4, free (06/08/2023 8:33 AM CDT) Pathologist [facility] Free T4 1.06 0.90 - 1.70 ng/dL [facility] ([place]) Blood 06/08/2023 8:33 AM CDT 06/08/2023 9:13 AM CDT Narrative [facility] - 06/08/2023 9:51 AM CDT fasting La Kearney MD LAB BLOOD ORDERABLES Final Result [facility] 1 [facility] [place] [address] * TSH (06/08/2023 8:33 AM CDT) Thyroid Stimulating Hormone 1.59 0.30 - 4.20 mcIUnit/mL [facility] Blood 06/08/2023 8:33 AM CDT 06/08/2023 9:13 AM CDT Narrative [facility] - 06/08/2023 9:51 AM CDT fasting La Kearney MD LAB BLOOD ORDERABLES Final Result Performing Organization Address City/[facility] Co de Phone Number [facility] 1 [facility] [place] [address] * Lipid panel (06/08/2023 8:33 AM CDT) Cholesterol 163 30 - 199 mg/dL [facility] Comment: Interpretive Data [...] on 2018. HDL 43 >=40 mg/dL [facility]) Comment: Interpretive Data Ages < or = [...] 2018. LDL, calculated 98 <=129 mg/dL [facility]) Comment: Interpretive Data Ages < or = [...] ([place]) - 06/08/2023 9:51 AM CDT fasting us La Kearney MD LAB BLOOD ORDERABLES Final Result [facility] 1 [facility] Department [place] [address] * (ABNORMAL) Comprehensive metabolic panel (06/08/2023 8:33 AM CDT) Sodium 140 135 - 145 mmol/L [facility] Potassium, pl 4.1 3.3 - 4.9 mmol/L [facility] Chloride 106 97 - 110 mmol/L [facility] CO2 24 22 - 32 mmol/L [facility] Anion gap 11 2 - 15 mmol/L [facility] BUN 14 6 - 25 mg/dL [facility] Creatinine 1.12 0.80 - 1.30 [...] ([place]) - 06/08/2023 9:51 AM CDT fasting us La Kearney MD LAB BLOOD ORDERABLES Final Result [facility] ([place]) 1 [facility] Department [place] [address] * CBC with auto differential (06/08/2023 8:33 AM CDT) WBC 4.7 3.8 - 9.9 K/cumm [facility] ([place]) Hgb 14.7 13.0 - 17.5 g/dL [facility] Hct 42.7 38.9 - 50.3 % [facility] Plt 197 150 - 400 K/cumm [facility] ([place] MPV 10.4 9.1 - 12.3 fL [facility]) RBC 4.61 4.30 - 5.80 M/cumm [facility] MCV 92.6 81.3 - 96.4 fL [facility] ([place]) MCH 31.9 27.1 - 33.3 pg [facility] ([place]) MCHC 34.4 32.3 - 35.7 g/dL [facility] RDW CV 12.4 11.1 - 14.9 % [facility] RDW SD 42.0 35.7 - 48.1 fL [facility] NRBC abs 0.00 0.00 - 0.01 K/cumm [facility] Blood 06/08/2023 8:33 AM CDT 06/08/2023 9:13 AM CDT Narrative [facility] ([place] - 06/08/2023 9:22 AM CDT fasting La Kearney MD LAB BLOOD ORDERABLES Final Result [facility] ([place]) 1 [facility] Department [place] [address] documented in this encounter Visit Diagnoses Diagnosis Neck pain- Primary Cervicalgia Acute bilateral low back pain with sciatica, sciatica laterality unspecified Mixed hyperlipidemia Essential hypertension Unspecified essential hypertension Encounter for screening for HIV Need for hepatitis C screening test Special screening examination for other specified viral diseases IGT (impaired glucose tolerance) Impaired glucose tolerance test Mixed hyperlipidemia Essential hypertension Unspecified essential hypertension IGT (impaired glucose tolerance) Impaired glucose tolerance test Encounter for screening for HIV Need for hepatitis C screening test Special screening examination for other specified viral diseases Neck pain Cervicalgia Acute bilateral low back pain with sciatica, sciatica laterality unspecified documented in this encounter Care Teams Ship'S Master Relationship Specialty Start Date End Date La Kearney MD [address] [place] [address] DR LUCAS [address] [place] [address] PCP - General Family Medicine 10/02/22 Mariaelena Zaidi MD Consulting Physician Sleep Medicine 07/12/21 documented as of this encounter
--- OUTSIDE RECORDS SUMMARY | 2024-09-17 12:50 | XMS_ITS | Encounter Summary ---
Author Organization [facility] Address [address] [place] [address] Care Team Providers Care Building Maintenance Engineer Name Role Phone Mariaelena Zaidi MD Unavailable La Kearney MD Primary Care Provide r Reason for Referral * Diagnostic Imaging (Routine) - Closed Specialty Diagnoses / Procedures Referred By Zaida t Referred To Contact Diagnoses Inguinal hernia without obstruction or gangrene, recurrence not specified, unspecified laterality Right groin pain Procedures US Groin Mass Hernia Right Ramos Fraga MD Phone: tel: fax: [address] [phone] Referral ID Status Reason Start Date Expiration Date Visits Re quested Visits Authorized [id number] Closed 11/20/2022 12/20/2023 1 1 Reason for Visit * Diagnostic Imaging (Routine) - Closed Specialty Diagnoses / Procedures Referred By Zaida camacho Referred To Contact Diagnoses Inguinal hernia without obstruction or gangrene, recurrence not specified, unspecified laterality Right groin pain Procedures US Groin Mass Hernia Right Ramos Fraga MD Phone: tel: fax: [address] [address] Referral ID Status Reason Start Date Expiration Date Visits Re quested Visits Authorized [id number] Closed 11/20/2022 12/20/2023 1 1 Encounter Details Date Type Department Care Team (Latest Contact Info) Description 01/04/2023 7:13 AM CDT - 01/04/2023 11:59 PM CDT Hospital Encounter [facility] [address] [place] [address] Inguinal hernia without obstruction or gangrene, recurrence not specified, unspecified laterality; Right groin pain Discharge Disposition: Discharge to home or [...] on file 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 Gender Identity Not on file Sexual Orientation Not on file documented as of this encounter Medications at Time of Discharge buPROPion XL (WELLBUTRIN XL) 300 mg 24 hr tablet TAKE 1 TABLET EVERY MORNING 90 tablet 1 11/12/2022 3 lisinopriL (PRINIVIL,ZESTRIL) 5 mg tabletIndications:E ssential hypertension TAKE 1 TABLET DAILY 90 tablet 3 02/08/2022 3 methylPREDNISolone (Medrol, Baltazar,) 4 mg Dosepack follow package directions 21 tablet 11/12/2022 3 metoprolol XL (TOPROL-XL) 25 mg extended release tabletIndications:E ssential hypertension TAKE 1 TABLET DAILY 90 tablet 3 02/08/2022 3 oxybutynin XL (Ditropan XL) 10 mg 24 hr tabletIndications:B ladder Hyperactivity Take 1 tablet (10 mg total) by mouth daily for 20 days 20 tablet 04/12/2022 4 pramipexole (MIRAPEX) 1.5 mg tabletIndications:R estless legs syndrome Take 1 tablet (1.5 mg total) by mouth 3 (three) times a day 90 tablet 1 11/21/2022 3 pravastatin (PRAVACHOL) 40 mg tabletIndications:H yperlipidemia, unspecified hyperlipidemia type TAKE 1 TABLET DAILY 90 tablet 1 10/02/2022 3 documented as of this encounter Discharge Disposition Disposition Code Departure Means Destination Discharge to home or self care documented in this encounter Plan of Treatment Not on file documented as of this encounter Procedures Procedure Name Priority Date/Time Associated Diagnosis Comments US GROIN MASS/HERNIA RIGHT Schedule Routine, Read Routine (OP Routine) 01/04/2023 8:06 AM CDT Inguinal hernia without obstruction or gangrene, recurrence not specified, unspecified laterality Right groin pain documented in this encounter Results * US Groin Mass Hernia Right (01/04/2023 8:06 AM CDT) Anatomical Region Laterality Modality Abdomen Right Ultrasound 01/04/2023 5:19 PM CDT Narrative 01/04/2023 5:20 PM CDT EXAM DESCRIPTION: ?? US GROIN MASS HERNIA RIGHT REASON FOR STUDY: ?? Right groin pain, pain after sitting for long periods of time. ??Assess for hernia. TECHNIQUE: A Dynamic assessment was performed of the ??right groin and inguinal region ??by the retail shift manager, with selected grayscale and color Doppler images acquired and recorded in PACS. COMPARISON: ?? None. FINDINGS: There is no demonstrated mass, fluid collection, edema, or other abnormality. IMPRESSION: No demonstrated abnormality in the area of interest. ?? No identified hernia or fluid collection. ??If there is clinical concern for a varicocele, could consider referral for a scrotal ultrasound. THIS IS AN ELECTRONICALLY VERIFIED FINAL REPORT 01/04/2023 5:20 PM - Electronically signed by ??Ziggy Almaguer M.D. CH: SWETHA D: ??01/04/2023 5:20 PM T: ??01/04/2023 5:20 PM Report ID: [id number] Reading Location: ??[id number] Procedure Note Ziggy Almaguer Jr., MD - 01/04/2023 EXAM DESCRIPTION: US GROIN MASS HERNIA RIGHT REASON FOR STUDY: Right groin pain, pain after sitting for long periodsof time. Assess for hernia. TECHNIQUE: A Dynamic assessment was performed of the right groin andinguinal region by the retail shift manager, with selected grayscale and color Dopplerimages acquired and recorded in PACS. COMPARISON: None. FINDINGS: There is no demonstrated mass, fluid collection, edema, or otherabnormality. IMPRESSION: No demonstrated abnormality in the area of interest. No identifiedhernia or fluid collection. If there is clinical concern for a varicocele, could consider referral for a scrotal ultrasound. THIS IS AN ELECTRONICALLY VERIFIED FINAL REPORT 01/04/2023 5:20 PM - Electronically signed by Ziggy Almaguer M.D. CH: SWETHA Report ID: [id number] Reading Location: [place] [address] us Ramos Rogers Fraga MD IMG US PROCEDURE S Final Result documented in this encounter Visit Diagnoses Diagnosis Inguinal hernia without obstruction or gangrene, recurrence not specified, unspecified laterality Right groin pain Abdominal pain, right lower quadrant documented in this encounter Care Teams Building Maintenance Engineer Relationship Specialty Start Date End Date La Kearnye MD [address] [place] [address] DR LUCAS [address] [place] [address] PCP - General Family Medicine 10/02/22 Mariaelena Zaidi MD Consulting Physician Sleep Medicine 07/12/21 documented as of this encounter
--- OUTSIDE RECORDS SUMMARY | 2024-09-17 12:50 | XMS_ITS | Encounter Summary ---
Author Organization [facility] Address [address] [place] [address] Care Team Providers Care Library Consultant Name Role Phone Mariaelena Zaidi MD Unavailable La Kearney MD Primary Care Provide r Reason for Visit * Diagnostic Imaging (Routine) - Closed Specialty Diagnoses / Procedures Referred By Zaida camacho Referred To Contact Diagnoses Left elbow pain Procedures XR Elbow Left 3 or More Views Eileen Aj PA [address] [place] [address] Phone: tel: fax: [facility] Referral ID Status Reason Start Date Expiration Date Visits Re quested Visits Authorized [id number] Closed 12/24/2022 01/23/2024 1 1 Encounter Details Date Type Department Care Team (Latest Contact Info) Description 12/24/2022 7:43 AM CDT - 12/24/2022 11:59 PM CDT Hospital Encounter [facility] Orthopedics and Sports Medicine [address] [address] [place] [id number] Discharge Disposition: Discharge to home or self [...] on file 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
--- OUTSIDE RECORDS SUMMARY | 2024-09-17 12:50 | XMS_ITS | Encounter Summary ---
Author Organization [facility] Address [address] [place] [address] Care Team Providers Care Donkey Doctor Name Role Phone Mariaelena Zaidi MD Unavailable La Kearney MD Primary Care Provide r Reason for Referral * Consultation (Routine) - Closed Specialty Diagnoses / Procedures Referred By Zaida t Referred To Contact Orthopedic Surgery Diagnoses Right lateral epicondylitis La Kearney MD [address] [place] [address] [facility] [address] [place] [address] Phone: tel: fax: Clem Bedoya MD [address] [place] [address] [facility] [address] [place] [address] Phone: tel: fax: Referral ID Status Reason Start Date Expiration Date V isits Requested Visits Authorized [id number] Closed Specialty Services Required 12/03/2022 01/02/2024 1 1 Question Answer Please select the performing region: [facility] [[id number]] Please select the performing department: [facility] [[id number]] To provider: CLEM BEDOYA [[id number]] # of visits: 1 Encounter Details Date Type Department Care Team (Late st Contact Info) Description 12/03/2022 Orders Only [facility] Primary Care at [address] [place] [address] La Kearney MD [address] [facility] [address] [place] [address] Right lateral epicondylitis (Primary Dx) Social History Tobacco Use Types [...] on file 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 Gender Identity Not on file Sexual Orientation Not on file documented as of this encounter Plan of Treatment Scheduled Referrals Name Type Priority Associated Diagnoses Orde r Schedule Ambulatory referral to Orthopedic Surgery Outpatient Referral Routine Right lateral epicondylitis Expected: 12/03/2022 (Approximate), Expires: 12/04/2023 documented as of this encounter Visit Diagnoses Diagnosis Right lateral epicondylitis- Primary documented in this encounter Care Teams Donkey Doctor Relationship Specialty Start Date End Date La Kearney MD [address] [facility] [address] [place] [address] PCP - General Family Medicine 10/02/22 Mariaelena Zaidi MD Consulting Physician Sleep Medicine 07/12/21 documented as of this encounter
--- OUTSIDE RECORDS SUMMARY | 2024-09-17 12:50 | XMS_ITS | Encounter Summary ---
Author Organization [facility] Address [address] [facility] [address] [place] [address] Care Team Providers Care Food Preservation Scientist Name Role Phone Mariaelena Zaidi MD Unavailable La Kearney MD Primary Care Provide r Reason for Referral * Procedure (Routine) - Closed Specialty Diagnoses / Procedures Referred By Zaida camacho Referred To Contact Diagnoses Left lateral epicondylitis Procedures Epicondylitis injection: R elbow Eileen Aj PA [address] [place] [address] [address] [place] [address] Phone: tel: fax: [facility] Referral ID Status Reason Start Date Expiration Date Visits Re quested Visits Authorized [id number] Closed 03/25/2023 04/23/2024 1 1 Reason for Visit * Reason Comments Follow-up Encounter Details Date Type Department Care Team (Late st Contact Info) Description 03/25/2023 8:00 AM CDT Office Visit [facility] Orthopedics and Sports Medicine [address] [facility] [address] [place] [phone] Eileen Aj PA [address] [place] [address] [address] [place] [address] Left lateral epicondylitis (Primary Dx) Social History Tobacco [...] on file 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 Gender Identity Not on file Sexual Orientation Not on file documented as of this encounter Last Filed Vital Signs Vital Sign Reading Time Taken Comments Blood Pressure 129/78 03/25/2023 8:05 AM CDT Pulse 68 03/25/2023 8:05 AM CDT Temperature - - Respiratory Rate - - Oxygen Saturation - - Inhaled Oxygen Concentration - - Weight 126.4 kg (278 lb 9.6 oz) 03/25/2023 8:05 AM CDT Height 188 cm (6' 2 ) 03/25/2023 8:05 AM CDT Meaured height Body Mass Index 35.77 03/25/2023 8:05 AM CDT documented in this encounter Progress Notes * Eileen Aj PA - 03/25/2023 8:00 AM CDTAssociated Order(s): Epicondylitis injection: R elbow Injection Follow Up Patient is here for follow up on left lateral epicondylitis. Patient had an injection 11/12/22 which did provide relief. Reports he went to 1 OT visit that was provided home exercise program which he has not performed in quite some time. States that approximately 1-2 weeks after injection pain was doing better then went fishing and caused pain to recur. Patient denies any new injuries/trauma. Wouldlike to proceed with repeat corticosteroid injection today. Inspection of joint reveals no erythema, ecchymosis, signs of trauma or infection. Skin is well intact. Crepitus present upon range of motion, and pain is noted at end range. Grossly neurovascularly intact extremities. left Lateral epicondyle injection was administered today. Patient tolerated this procedure well. Post injection instructions provided. Patient may follow up in 3 months for repeat injection, as symptoms necessitate. All questions were answered appropriately. Patient verbalized full understanding and is in agreement with this treatment plan. BP 129/78 Pulse 68 Ht 188 cm (6' 2 ) Comment: Meaured height Wt 126.4 kg (278 lb 9.6 oz) BMI 35.77 kg/m?? Diagnosis Plan 1. Left lateral epicondylitis Epicondylitis injection: R elbow Epicondylitis injection: R elbow Performed by: Eileen Aj PA Authorized by: Eileen Aj PA Epicondylitis Injection: Consent Given by: Patient Site marked: the procedure site was marked Timeout: prior to procedure the correct patient, procedure, and site was verified Verbal consent obtained?: Yes Supporting Documentation: Indications: Pain Procedure Details: Condition: lateral epicondylitis Site: R elbow Prep: patient was prepped and draped in usual sterile fashion Needle Size: 25 G Approach: Lateral Ultrasound guidance: No Medications: 1.5 mL lidocaine 20 mg/mL (2 %); 80 mg methylPREDNISolone acetate 80 mg/mL Patient tolerance: Patient tolerated the procedure well with no immediate complications SANGEETA Gallardo documented in this encounter Plan of Treatment Not on file documented as of this encounter Procedures Procedure Name Priority Date/Time Associated Diagnosis Comments OK INJECTION 1 TENDON SHEATH/LIGAMENT APONEUROSIS Routine 03/25/2023 8:00 AM CDT Left lateral epicondylitis documented in this encounter Results * OK INJECTION 1 TENDON SHEATH/LIGAMENT APONEUROSIS (03/25/2023 8:00 AM CDT) Narrative Eileen Aj PA - 03/25/2023 8:00 AM CDT Eileen Aj PA ? 03/25/2023 ??8:37 AM Epicondylitis injection: R elbow Performed by: Eileen Aj PA Authorized by: Eileen Aj PA ?? Epicondylitis Injection: ??Consent Given by: ??Patient ??Site marked: the procedure site was marked ?Timeout: prior to procedure the correct patient, procedure, and site was verified ?Verbal consent obtained?: Yes ?? Supporting Documentation: ??Indications: ??Pain Procedure Details: ??Condition: lateral epicondylitis ?Site: ??R elbow ??Prep: patient was prepped and draped in usual sterile fashion ?Needle Size: ??25 G ??Approach: ??Lateral ??Ultrasound guidance: No ?Medications: ??1.5 mL lidocaine 20 mg/mL (2 %); 80 mg methylPREDNISolone acetate 80 mg/mL ??Patient tolerance: ??Patient tolerated the procedure well with no immediate complications Eileen [facility] Final Result documented in this encounter Visit Diagnoses Diagnosis Left lateral epicondylitis- Primary documented in this encounter Administered Medications Inactive Administered Medications - up to 3 most recent administrations Medication Order MAR Action Action Date Dose Rate Site lidocaine (XYLOCAINE) 20 mg/mL (2 %) injection 1.5 mL 1.5 mL, One-Time Injection, Starting on Sat03/25/23 at 0836, For 1 dose, Indications: Administration of Local AnesthesiaIndications:Adminis tration of Local Anesthesia Given 03/25/2023 8:36 AM CDT 1.5 mL Right Elbow methylPREDNISolone acetate (DEPO-medrol) injection 80 mg 80 mg, intra-articular, One-Time Injection, Starting on Sat03/25/23 at 0836, For 1 doseIndications:Left lateral epicondylitis Given 03/25/2023 8:36 AM CDT 80 mg Right Elbow documented in this encounter Care Teams Food Preservation Scientist Relationship Specialty Start Date End Date La Kearney MD [address] [place] [address] [address] PCP - General Family Medicine 10/02/22 Mariaelena Zaidi MD Consulting Physician Sleep Medicine 07/12/21 documented as of this encounter
--- OUTSIDE RECORDS SUMMARY | 2024-09-17 12:50 | XMS_ITS | Encounter Summary ---
Author Organization [facility] Address [address] [address] [place] [address] Care Team Providers Care Level Vial Sealer Name Role Phone Mariaelena Zaidi MD Unavailable La Kearney MD Primary Care Provide r Encounter Details Date Type Department Care Team (Late st Contact Info) Description 11/15/2022 Telephone [facility] Sleep Medicine at [address] [place] [address] Mariaelena Zaidi MD [address] [place] [address] [address] [place] [address] Social History Tobacco Use Types [...] on file 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 TER ASSEMBLER * Telephone Encounter - Yolanda Machado MA - 11/15/2022 9:24 AM CST I spoke with the Rhiannon yesterday. I faxed an order to [facility] for patient supplies, as she requested. The faxed was confirmed. Can you please try faxing another order marked for new supplies/patientchoice? TER ASSEMBLER * Telephone Encounter - Mariaelena Zaidi MD - 11/15/2022 9:06 AM CST We switched DME last time from MW last visit. Can you please see which DME we sent it to and if they need new Rx for supplies? TER ASSEMBLER * Telephone Encounter - Ranjit Omer - 11/15/2022 7:20 AM CST Patient's spouse (Rhiannon) left a VM stating that patient has not received CPAP supplies. I did not see an order for new supplies to be sent. Please advise. TER ASSEMBLER documented in this encounter Plan of Treatment Not on file documented as of this encounter Visit Diagnoses Not on filedocumented in this encounter Care Teams Level Vial Sealer Relationship Specialty Start Date End Date La Kearney MD [address] [place] [address] [address] [place] [address] PCP - General Family Medicine 10/02/22 Mariaelena Zaidi MD Consulting Physician Sleep Medicine 07/12/21 documented as of this encounter
--- OUTSIDE RECORDS SUMMARY | 2024-09-17 12:50 | XMS_ITS | Encounter Summary ---
Author Organization [facility] Address [address] [facility] [address] [facility] [address] [place] [address] Care Team Providers Care Electro Optical Engineer Name Role Phone Mariaelena Zaidi MD Unavailable La Kearney MD Primary Care Provide r Reason for Visit * Reason Onset Date Comments Additional Services Or Orders 11/30/2022 Encounter Details Date Type Department Care Team (Late st Contact Info) Description 11/30/2022 Telephone [facility] Primary Care at [address] [place] [address] La Kearney MD [address] [place] [address] [address] [place] [address] Additional Services Or Orders Social History Tobacco Use Types Packs/Day Years [...] on file 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 * Telephone Encounter - Sweetie Uriostegui - 12/03/2022 9:22 AM CDT Order placed. * Telephone Encounter - Madelaine Gonzalez MA - 12/03/2022 8:06 AM CDT Pt aware * Telephone Encounter - Sam Curry PA - 12/03/2022 7:53 AM CDT Ortho referral if not improved Dx: R lateral epicondylitis * Telephone Encounter - Jr Pierre - 11/30/2022 3:51 PM CDT Additional Services or Orders Type of Service Requested:Injection Reason for Request (e.g. condition/symptom, date of COVID exposure if applicable): mild-moderate right elbow pain Details Regarding Additional Services (e.g. type of home health, type of equipment, type of test, etc.): patient stated he was prescribed steroid harris at 3/6 appointment with Sam and was instructed to call back if no improvement to get scheduled for a steroid or cortisone injection, he said he was unsure which one it was. Where will services be performed? (if outside of the practice, facility name, address, phone/fax offacility): office Caller's Callback #: [phone] Additional Comments: - Does message need to be routed?Yes-Action Needed documented in this encounter Plan of Treatment Not on file documented as of this encounter Visit Diagnoses Not on filedocumented in this encounter Care Teams Electro Optical Engineer Relationship Specialty Start Date End Date La Kearney MD [address] [facility] [address] [address] PCP - General Family Medicine 10/02/22 Mariaelena Zaidi MD Consulting Physician Sleep Medicine 07/12/21 documented as of this encounter
--- OUTSIDE RECORDS SUMMARY | 2024-09-17 12:50 | XMS_ITS | Encounter Summary ---
Author Organization [facility] Address [address] [facility] [address] [place] [address] Care Team Providers Care Parts Specialist Name Role Phone Mariaelena Zaidi MD Unavailable La Kearney MD Primary Care Provide r Reason for Referral * Diagnostic Imaging (Routine) - Closed Specialty Diagnoses / Procedures Referred By Zaida camacho Referred To Contact Diagnoses Inguinal hernia without obstruction or gangrene, recurrence not specified, unspecified laterality Right groin pain Procedures US Groin Mass Hernia Right Ramos Fraga MD Phone: tel: fax: [address] [phone] Referral ID Status Reason Start Date Expiration Date Visits Re quested Visits Authorized [id number] Closed 11/20/2022 12/20/2023 1 1 Reason for Visit * Reason Comments Inguinal Hernia Also knot in R groin area, hurts when sitting too long * Consultation (Routine) - Closed Specialty Diagnoses / Procedures Referred By Zaida camacho Referred To Contact General Surgery Diagnoses Inguinal hernia without obstruction or gangrene, recurrence not specified, unspecified laterality Sam Curry PA [address] [facility] [address] [place] [address] Phone: tel: fax: Ramos Fraga MD [address] [facility] [address] [place] [address] Phone: tel: fax: Referral ID Status Reason Start Date Expiration Date V isits Requested Visits Authorized [id number] Closed Specialty Services Required 11/12/2022 12/12/2023 1 1 Encounter Details Date Type Department Care Team (Late st Contact Info) Description 11/20/2022 10:10 AM CDT Office Visit [facility] [address] [facility] [address] [place] [phone] Ramos Fraga MD [address] [place] [address] [address] [place] [address] Right groin pain (Primary Dx); Inguinal hernia without obstruction or gangrene, recurrence not specified, unspecified laterality Social History Tobacco Use Types Packs/Day Years [...] on file 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 Gender Identity Not on file Sexual Orientation Not on file documented as of this encounter Last Filed Vital Signs Vital Sign Reading Time Taken Comments Blood Pressure 115/76 11/20/2022 9:47 AM CDT Pulse 75 11/20/2022 9:47 AM CDT Temperature 36.2 ??C (97.1 ??F) 11/20/2022 9:47 AM CD T Respiratory Rate - - Oxygen Saturation 95% 11/20/2022 9:47 AM CDT Inhaled Oxygen Concentration - - Weight 123.6 kg (272 lb 8 oz) 11/20/2022 9:47 AM CDT Height 188 cm (6' 2 ) 11/20/2022 9:47 AM CDT Body Mass Index 34.99 11/20/2022 9:47 AM CDT documented in this encounter Progress Notes * Ramos Fraga MD - 11/20/2022 10:10 AM CDT Images from the original note were not included. Surgery Consult Subjective: Patient Name: Jaden De La Torre Date of Visit: 11/20/22 HPI: Jaden De La Torre is a 52 y.o. male presenting for surgical evaluation of a knot in the right groin. This began two months ago. Prolonged sitting makes the pain worse. Getting up and walking seemsto help with the discomfort. He denies any associated bulge. Symptoms have not significantly changed over the past 2 months. Chief Complaint: Inguinal Hernia (Also knot in R groin area, hurts when sitting too long) Referred by: La Kearney MD Allergies as of 11/20/2022 (No Known Allergies) Current Outpatient Medications: buPROPion XL (WELLBUTRIN XL) 300 mg 24 hr tablet lisinopriL (PRINIVIL,ZESTRIL) 5 mg tablet metoprolol XL (TOPROL-XL) 25 mg extended release tablet pramipexole (MIRAPEX) 1.5 mg tablet pravastatin (PRAVACHOL) 40 mg tablet methylPREDNISolone (Medrol, Baltazar,) 4 mg Dosepack Past Medical History: Diagnosis Date Anxiety disorder Anxiety Depression Depression Enlarged prostate Erectile dysfunction Generalized abdominal pain 06/27/2019 GERD (gastroesophageal reflux disease) Hemorrhoids Hyperlipidemia Hypertension Hypoglycemia Palpitation Rectal pain 05/25/2020 Added automatically from request for surgery [id number] Sleep apnea Urinary retention Past Surgical History: [...] weekly Sexual activity: Defer Alcohol Use: Not on file Review of Systems Constitutional: Negative for activity change. HENT: Negative for hearing loss and sore throat. Eyes: Negative for visual disturbance. Respiratory: Negative for cough and shortness of breath. Cardiovascular: Negative for chest pain. Gastrointestinal: Negative for abdominal pain Genitourinary: Positive for groin discomfort. Musculoskeletal: Negative for back pain. Neurological: Negative for dizziness and syncope. Psychiatric/Behavioral: Negative for agitation and confusion. Imaging: CT urogram from April of 2022 did not demonstrate any identifiable hernias Objective: Vitals BP 115/76 (BP Location: Right arm, Patient Position: Sitting) Pulse 75 Temp 36.2 ??C (97.1 ??F) Ht 188 cm (6' 2 ) Wt 123.6 kg (272 lb 8 oz) SpO2 95% BMI 34.99 kg/m?? Physical Exam Constitutional: The patient is oriented to person, place, and time. Head: Normocephalic and atraumatic. Eyes: Pupils are equal, round, and reactive to light. Neck: No thyromegaly present. Cardiovascular: Normal rate and regular rhythm. Pulmonary/Chest: Effort normal and breath sounds normal. Abdominal: Soft. non distended. There is no tenderness. Umbilical hernia Genitourinary: Rectum normal. Right inguinal impulse appreciated Musculoskeletal: Normal range of motion. Neurological: alert and oriented to person, place, and time. Skin: Skin is warm and dry. Psychiatric: normal mood and affect. Assessment/Plan Diagnoses and all orders for this visit: Right groin pain (Primary) Assessment & Plan: It does feel on clinical exam like [...] have discussed the need for mesh implantation. Orders: - US Groin Mass Hernia Right; Future Inguinal hernia without obstruction or gangrene, recurrence not specified, unspecified laterality - Ambulatory referral to General Surgery - US Groin Mass Hernia Right; Future Ramos Fraga MD 10:37 AM 11/20/2022 documented in this encounter Miscellaneous Notes * Assessment & Plan Note - Ramos Fraga MD - 11/20/2022 10:36 AM CDTAssociated Problem(s): Right groin pain It does feel on clinical exam like [...] have discussed the need for mesh implantation. documented in this encounter Plan of Treatment Not on file documented as of this encounter Results * US Groin Mass [...] ??right groin and inguinal region ??by the spud sorter, with selected grayscale and color Doppler images [...] PM - Electronically signed by ??Ziggy Almaguer M.D., CH: SWETHA D: ??01/04/2023 5:20 PM T: ??01/04/2023 5:20 PM Report ID: [id number] Reading Location: ??[id number] Procedure Note Ziggy Almaguer Jr., MD - 01/04/2023 EXAM DESCRIPTION: US GROIN MASS HERNIA RIGHT REASON FOR STUDY: Right groin pain, pain after sitting for long periodsof time. Assess for hernia. TECHNIQUE: A Dynamic assessment was performed of the right groin andinguinal region by the spud sorter, with selected grayscale and color Dopplerimages acquired [...] Ziggy Almaguer M.D. CH: SWETHA Report ID: [id number] Reading Location: [id number] Ramos Fraga MD IM US PROCEDURE S Final Result documented in this encounter Visit Diagnoses Diagnosis Right groin pain- Primary Abdominal pain, right lower quadrant Inguinal hernia without obstruction or gangrene, recurrence not specified, unspecified laterality Inguinal hernia without obstruction or gangrene, recurrence not specified, unspecified laterality Right groin pain Abdominal pain, right lower quadrant documented in this encounter Orders Outpatient Referral Count Last Ordered Date Fir st Ordered Date AMB REFERRAL TO GENERAL SURGERY 1 3 documented in this encounter Care Teams Parts Specialist Relationship Specialty Start Date End Date La Kearney MD [address] [place] [address] [address] [place] [address] PCP - General Family Medicine 10/02/22 Mariaelena Zaidi MD Consulting Physician Sleep Medicine 07/12/21 documented as of this encounter
--- OUTSIDE RECORDS SUMMARY | 2024-09-17 12:50 | XMS_ITS | Encounter Summary ---
Author Organization [facility] Address [address] [facility] [address] [place] [address] Care Team Providers Care Ocean Forwarder Name Role Phone Mariaelena Zaidi MD Unavailable La Kearney MD Primary Care Provide r Reason for Visit * Reason Onset Date Comments Physical therapy order 12/24/2022 Encounter Details Date Type Department Care Team (Late st Contact Info) Description 12/24/2022 Telephone [facility] Orthopedics and Sports Medicine [address] [facility] [address] [place] [phone] Eileen Aj PA [address] [place] [address] [address] [place] [address] Physical therapy order Social History Tobacco Use Types Packs/Day Years [...] on file 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 New order faxed. * Telephone Encounter - Eileen Aj PA - 12/24/2022 11:42 AM CDT It is ok to send PT order instead. Please update order and resend for left lateral epicondylitis. * Telephone Encounter - Sheree Yancey - 12/24/2022 10:11 AM CDT Darcy from [facility] called and they got orders for OT and PT for left elbow pain but they do not have OT there and they are wanting to know if just PT is ok. If so they will need an updated order with just physical therapy on it refaxed tp [phone] please call [phone] if there are any questions. documented in this encounter Plan of Treatment Not on file documented as of this encounter Visit Diagnoses Diagnosis Left lateral epicondylitis- Primary documented in this encounter Care Teams Ocean Forwarder Relationship Specialty Start Date End Date La Kearney MD [address] [facility] [place] [address] PCP - General Family Medicine 10/02/22 Mariaelena Zaidi MD Consulting Physician Sleep Medicine 07/12/21 documented as of this encounter
--- OUTSIDE RECORDS SUMMARY | 2024-09-17 12:50 | XMS_ITS | Encounter Summary ---
Author Organization [facility] Address [address] [place] [address] Care Team Providers Care Internal Investigator Name Role Phone Mariaelena Zaidi MD Unavailable La Kearney MD Primary Care Provide r Reason for Visit * Reason Comments Abdominal Pain Encounter Details Date Type Department Care Team (Late st Contact Info) Description 11/12/2022 1:45 PM VOLCANOLOGY TEACHER Office Visit 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 Gender Identity Not on file Sexual Orientation Not on file documented as of this encounter Last Filed Vital Signs Vital Sign Reading Time Taken Comments Blood Pressure 120/70 11/12/2022 1:49 PM VOLCANOLOGY TEACHER Pulse 72 11/12/2022 1:49 PM VOLCANOLOGY TEACHER Temperature - - Respiratory Rate 16 11/12/2022 1:49 PM VOLCANOLOGY TEACHER Oxygen Saturation 95% 11/12/2022 1:49 PM VOLCANOLOGY TEACHER Inhaled Oxygen Concentration - - Weight 127.7 kg (281 lb 9.6 oz) 11/12/2022 1:49 PM VOLCANOLOGY TEACHER Height 188 cm (6' 2 ) 11/12/2022 1:49 PM VOLCANOLOGY TEACHER Body Mass Index 36.16 11/12/2022 1:49 PM VOLCANOLOGY TEACHER documented in this encounter Patient Instructions * Patient Instructions* Sam Curry PA - 11/12/2022 1:45 PM VOLCANOLOGY TEACHER My medical assistant secretary, Victor Manuel, and I are thankful you have trusted [...] if you were not feeling your best! -Sam Curry PA-C ANOLOGY TEACHER documented in this encounter Ordered Prescriptions Prescription Sig Dispense Quantity Refills Last Filled Start Date End Date methylPREDNISolone (Medrol, Baltazar,) 4 mg Dosepack follow package directions 21 tablet 11/12/2022 3 documented in this encounter Progress Notes * Sam Curry PA - 11/12/2022 1:45 PM CST Subjective/Objective Patient ID: Jaden De La Torre is a 52 y.o. male. Chief Complaint Abdominal Pain HPI Jaden De La Torre is 52 yo here c/o R lower abd discomfort for the past couple weeks. Worse w/ prolonged sitting or with stretching. No pain w/ walking . No change in bowels or bladder. No change in bowels. 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 No h/o hernias. No h/o abd surgeries other than recent prostate surgery. Brother has h/o hernia. He also c/o L lateral elbow and proximal extensor FA discomfort for several weeks. N o inciting trauma, injury. He is grasping and using his arms all the time for work. It hurts to grasp things, turnknobs, etc Review of Systems Constitutional: Negative for appetite change, chills, fever and unexpected weight change. Respiratory: Negative for cough, shortness of breath and wheezing. Cardiovascular: Negative for chest pain, palpitations and leg swelling. Gastrointestinal: Negative for abdominal pain (RLQ), constipation, diarrhea, nausea and vomiting. Genitourinary: Positive for frequency. Negative for dysuria. Musculoskeletal: Positive for arthralgias. Neurological: Negative for dizziness and light-headedness. Vitals: 11/12/22 1349 BP: 120/70 BP Location: Right arm Patient Position: Sitting Pulse: 72 Resp: 16 SpO2: 95% Weight: 127.7 kg (281 lb 9.6 oz) Height: 188 cm (6' 2 ) Physical Exam Constitutional: General: He is not in acute distress. Appearance: He is obese. Cardiovascular: Rate and Rhythm: Normal rate and regular rhythm. Heart sounds: Normal heart sounds. No murmur heard. Pulmonary: Breath sounds: Normal breath sounds. No wheezing, rhonchi or rales. Abdominal: General: Bowel sounds are normal. Palpations: Abdomen is soft. There is no mass. Tenderness: There is no abdominal tenderness. There is no guarding. Hernia: A hernia is present. Comments: Small NT umbilical hernia Mildly tender R inguinal bulge present only w/ valsalva Musculoskeletal: General: Tenderness (over L lateral epicondyle and proximal extensor FA. inc pain w/ supination w/ resistance. a r specialist symmeric and intact) present. Skin: Findings: No rash. Assessment/Plan Diagnoses and all orders for this visit: Right inguinal hernia (Primary) Comments: counseling provided on dx. Will refer to surgery Dr. John , to review options. Discussed red flags. Class 2 obesity with body mass index (BMI) of 36.0 to 36.9 in adult, unspecified obesity type, unspecified whether serious comorbidity present Essential hypertension Comments: BP controlled. Recommend DASH diet, heart healthy lifestyle, exercise. Discussed the risks of hypertension. Right lateral epicondylitis Comments: Brace, rest, ice. medrol pack. Ortho if not improved Other orders - methylPREDNISolone (Medrol, Baltazar,) 4 mg Dosepack; follow package directions Side effects, risks, interactions reviewed with patient. Indications for testing discussed. Any further problems to contact us. He was told what to look out for and verbalized understanding. The patient was given the opportunity to have all questions answered today and was in agreement with the plan of care. ANOLOGY TEACHER documented in this encounter Plan of Treatment Not on file documented as of this encounter Visit Diagnoses Diagnosis Right inguinal hernia- Primary Inguinal hernia without mention of obstruction or gangrene, unilateral or unspecified, (not specified as recurrent) Class 2 obesity with body mass index (BMI) of 36.0 to 36.9 in adult, unspecified obesity type, unspecified whether serious comorbidity present Essential hypertension Unspecified essential hypertension Right lateral epicondylitis documented in this encounter Care Teams Internal Investigator Relationship Specialty Start Date End Date La Kearney MD [address] [place] [address] DR LUCAS [address] [place] [id number] PCP - General Family Medicine 10/02/22 Mariaelena Zaidi MD Consulting Physician Sleep Medicine 07/12/21 documented as of this encounter
--- OUTSIDE RECORDS SUMMARY | 2024-09-17 12:50 | XMS_ITS | Encounter Summary ---
Author Organization [facility] Medical [facility] Address [address] [place] [address] Care Team Providers Care Donkey Doctor Name Role Phone Mariaelena Zaidi MD Unavailable La Kearney MD Primary Care Provide r Reason for Referral * Consultation (Routine) - Closed Specialty Diagnoses / Procedures Referred By Zaida camacho Referred To Contact General Surgery Diagnoses Inguinal hernia without obstruction or gangrene, recurrence not specified, unspecified laterality Sam Curry PA [address] [place] [address] [address] [place] [address] Phone: tel: fax: Ramos Fraga MD [address] [place] [address] [facility] [address] [place] [address] Phone: tel: fax: Referral ID Status Reason Start Date Expiration Date V isits Requested Visits Authorized [id number] Closed Specialty Services Required 11/12/2022 12/12/2023 1 1 Question Answer Please select the performing region: [facility] [[id number]] Please select the performing department: [facility] SURGERY [[id number]] To provider: RAMOS FRAGA [[id number]] # of visits: 1 IC HEALTH INSPECTOR Encounter Details Date Type Department Care Team (Late st Contact Info) Description 11/12/2022 Orders Only [facility] Primary Care at [address] [place] [phone] Sam Curry PA [address] [facility] [address] [place] [address] Inguinal hernia without obstruction or gangrene, recurrence not specified, unspecified laterality (Primary Dx) Social History Tobacco Use Types [...] on file 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 Gender Identity Not on file Sexual Orientation Not on file documented as of this encounter Plan of Treatment Scheduled Referrals Name Type Priority Associated Diagnoses Orde r Schedule Ambulatory referral to General Surgery Outpatient Referral Routine Inguinal hernia without obstruction or gangrene, recurrence not specified, unspecified laterality Expected: 11/26/2022 (Approximate), Expires: 11/13/2023 documented as of this encounter Visit Diagnoses Diagnosis Inguinal hernia without obstruction or gangrene, recurrence not specified, unspecified laterality- Primary documented in this encounter Care Teams Donkey Doctor Relationship Specialty Start Date End Date La Kearney MD [address] [facility] [address] [place] [address] PCP - General Family Medicine 10/02/22 Mariaelena Zaidi MD Consulting Physician Sleep Medicine 07/12/21 documented as of this encounter
--- OUTSIDE RECORDS SUMMARY | 2024-09-17 12:50 | XMS_ITS | Encounter Summary ---
Author Organization [facility] Address [address] [place] [address] Care Team Providers Care Kiln Firer Helper Name Role Phone Mariaelena Zaidi MD Unavailable La Kearney MD Primary Care Provide r Reason for Visit * Reason Comments Hypertension Follow up Encounter Details Date Type Department Care Team (Late st Contact Info) Description 06/06/2023 4:45 PM CDT Office Visit [facility] Primary Care at [address] [place] [address] La Kearney MD [address] [place] [address] [address] [place] [address] Encounter for wellness examination (Primary Dx); Essential hypertension; Mixed hyperlipidemia; Benign prostatic hyperplasia with weak urinary stream; Restless legs syndrome; Situational anxiety; Obstructive sleep apnea syndrome; Hyperlipidemia, unspecified hyperlipidemia type; Neck pain; Spondylosis of lumbar region without myelopathy or radiculopathy Social History Tobacco Use Types Packs/Day Years [...] on file 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 Gender Identity Not on file Sexual Orientation Not on file documented as of this encounter Last Filed Vital Signs Vital Sign Reading Time Taken Comments Blood Pressure 128/78 06/06/2023 4:38 PM CDT Pulse 65 06/06/2023 4:38 PM CDT Temperature - - Respiratory Rate 16 06/06/2023 4:38 PM CDT Oxygen Saturation 95% 06/06/2023 4:38 PM CDT Inhaled Oxygen Concentration - - Weight 129.3 kg (285 lb) 06/06/2023 4:38 PM CDT Height 188 cm (6' 2.02 ) 06/06/2023 4:38 PM CDT Body Mass Index 36.58 06/06/2023 4:38 PM CDT documented in this encounter Patient Instructions * Patient Instructions* La Kearney MD - 06/06/2023 4:45 PM CDT My medical care evaluation specialist and I are thankful you have trusted [...] by mouth daily 90 tablet 1 06/06/2023 4 pramipexole (MIRAPEX) 1.5 mg tabletIndications:Re stless legs syndrome Take 1 tablet (1.5 mg total) by mouth 3 (three) times a day 90 tablet 1 06/06/2023 3 documented in this encounter Progress Notes * La Kearney MD - 06/06/2023 4:45 PM CDT Images from the original note were not included. Subjective/Objective Patient ID: Jaden De La Torre is a 52 y.o. male. Chief Complaint Hypertension (Follow up ) HPI 52-year-old male with history of hypertension hld anxiety depression BPH restless legs syndrome sleep apnea who is coming in for a wellness exam. He mentioned some neck pain that has been going on for years. It is off and on and progressively worsening. No recent traumaStates it feels like a brick on it. Feels like something is stabbing him. No associated numbness tingling His lower back seems to get more stiff. Both are off and on. Nothing makes it better. Tried heat, aleve, and tylenol without much improvement. It goes away on its own. Anything on the top of his head makes it worse. 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 Past Medical History: Diagnosis Date Anxiety disorder Anxiety Depression Depression Enlarged prostate Erectile dysfunction Generalized abdominal pain 06/27/2019 GERD (gastroesophageal reflux disease) Hemorrhoids Hyperlipidemia Hypertension Hypoglycemia Palpitation Rectal pain 05/25/2020 Added automatically from request for surgery [id number] Sleep apnea Urinary retention No Known Allergies Past Surgical History: Procedure Laterality Date BAND [...] file Review of Systems Constitutional: Negative for appetite [...] urinating, dysuria, frequency, hematuria and urgency. Musculoskeletal: Negative for arthralgias, back pain, gait problem, joint swelling, myalgias and neck stiffness. Skin: Negative for rash. Neurological: Negative for dizziness, syncope, weakness, light-headedness and headaches. Hematological: Negative for adenopathy. Does not bruise/bleed easily. Psychiatric/Behavioral: Negative for agitation and sleep disturbance. The patient is not nervous/anxious. Vitals: 06/06/23 1638 BP: 128/78 BP Location: Left arm Patient Position: Sitting Pulse: 65 Resp: 16 SpO2: 95% Weight: 129.3 kg (285 lb) Height: 188 cm (6' 2.02 ) No visits with results within 1 Month(s) from this visit. Latest known visit with results is: Office Visit on 01/29/2023 Component Date Value Glucose, ur, POC 01/29/2023 Negative Ketones, ur, POC 01/29/2023 Negative Blood, ur, POC 01/29/2023 Negative pH, ur, POC 01/29/2023 5.0 Protein, ur, POC 01/29/2023 Trace (A) Nitrite, ur, POC 01/29/2023 Negative Leukocytes, ur, POC 01/29/2023 Negative Lot Number 01/29/2023 [id number] Physical Exam Constitutional: General: He is not [...] General: No deformity. Normal range of motion. Cervical back: Neck supple. Lymphadenopathy: Cervical: No cervical adenopathy (no bruits). Skin: General: Skin is warm. Findings: No rash. Neurological: Mental Status: He is alert and oriented to person, place, and time. Cranial Nerves: No cranial nerve deficit. Deep Tendon Reflexes: Reflexes normal. Psychiatric: Judgment: Judgment normal. Assessment/Plan Diagnoses and all orders for this visit: Encounter for wellness examination (Primary) Assessment & Plan: Ordered CBC, cmp, lipid, hgb a1c, HIV, hep c, TSH w/ reflex to t4 Flu declines Colonoscopy up to date F/u in 1 year for annual Essential hypertension Assessment & Plan: Bp in the office today BP Readings from Last 1 Encounters: 06/06/23 128/78 Continue current regimen of lisinopril 5mg daily metoprolol 25mg at night Recommend DASH diet, heart-healthy lifestyle, exercise. Discussed the risks of hypertension. F/u in 6 months Mixed hyperlipidemia Assessment & Plan: Stable Continue pravastatin 40mg daily Benign prostatic hyperplasia with weak urinary stream Assessment & Plan: Stable / clinically quiescent. Will continue to monitor. Restless legs syndrome Assessment & Plan: Condition is stable A&P: Discussed/ordered labs, encouraged healthy, low carbohydrate lifestyle and at least 150min/week of exercise, continue Seeing Dr. Zaidi sleep medicine continue on CPAP, Mirapex 1.5 mg once daily at bedtime Orders: - pramipexole (MIRAPEX) 1.5 mg tablet; Take 1 tablet (1.5 mg total) by mouth 3 (three) times a day Situational anxiety Assessment & Plan: Patient reiterated no suicidal thoughts at this time; take medication as directed; contact 911 and go to the ER if becomes suicidal; HPI: Condition is stable A&P: Discussed/ordered labs, encouraged healthy, low carbohydrate lifestyle and at least 150min/week of exercise, continue on Bupropion 300 mg daily Obstructive sleep apnea syndrome Assessment & Plan: Continue following with sleep medicine They recently increased his pressure Continue with cpap machine Hyperlipidemia, unspecified hyperlipidemia type Assessment & Plan: Stable Continue pravastatin 40mg daily Orders: - pravastatin (PRAVACHOL) 40 mg tablet; Take 1 tablet (40 mg total) by mouth daily Neck pain Assessment & Plan: Chronic Worsening Will get xray of the cervical spine Recommend heat and aleve Referral to physical therapy Depending on results and no improvement with physical therapy will refer to pain management or neurosurgery F/u in 1 month Spondylosis of lumbar region without myelopathy or radiculopathy Assessment & Plan: Chronic Worsening Will get xray of the lumbar spine Recommend heat and aleve Referral to physical therapy Depending on results and no improvement with physical therapy will refer to pain management or neurosurgery F/u in 1 month Side effects, risks, interactions reviewed with patient. [...] Plan Note - La Kearney MD - 06/07/2023 10:09 AM CDTAssociated Problem(s): Spondylosis of lumbar region without myelopathy or radiculopathy Chronic Worsening Will get xray of the lumbar spine Recommend heat and aleve Referral to physical therapy Depending on results and no improvement with physical therapy will refer to pain management or neurosurgery F/u in 1 month * Assessment & Plan Note - La Kearney MD - 06/07/2023 10:09 AM CDTAssociated Problem(s): Neck pain Chronic Worsening Will get xray of the cervical spine Recommend heat and aleve Referral to physical therapy Depending on results and no improvement with physical therapy will refer to pain management or neurosurgery F/u in 1 month * Assessment & Plan Note - La Keanrey MD - 06/06/2023 5:13 PM CDT Associated Problem(s): Obstructive sleep apnea syndrome Continue following with sleep medicine They recently increased his pressure Continue with cpap machine * Assessment & Plan Note - La Kearney MD - 06/06/2023 7:06 AM CDT Associated Problem(s): Situational anxiety Patient reiterated no suicidal thoughts at this time; take medication as directed; contact 911 and go to the ER if becomes suicidal; HPI: Condition is stable A&P: Discussed/ordered labs, encouraged healthy, low carbohydrate lifestyle and at least 150min/week of exercise, continue on Bupropion 300 mg daily * Assessment & Plan Note - La Kearney MD - 06/06/2023 7:05 AM CDT Associated Problem(s): Restless legs syndrome Condition is stable A&P: Discussed/ordered labs, encouraged healthy, low carbohydrate lifestyle and at least 150min/week of exercise, continue Seeing Dr. Zaidi sleep medicine continue on CPAP, Mirapex 1.5 mg once daily at bedtime * Assessment & Plan Note - La Kearney MD - 06/06/2023 7:04 AM CDT Associated Problem(s): Encounter for wellness examination Ordered CBC, cmp, lipid, hgb a1c, HIV, hep c, TSH w/ reflex to t4 Flu declines Colonoscopy up to date F/u in 1 year for annual * Assessment & Plan Note - La Kearney MD - 06/06/2023 7:03 AM CDT Associated Problem(s): Benign prostatic hyperplasia with weak urinary stream Stable / clinically quiescent. Will continue to monitor. * Assessment & Plan Note - aL Kearney MD - 06/06/2023 7:02 AM CDT Associated Problem(s): Hyperlipidemia Stable Continue pravastatin 40mg daily * Assessment & Plan Note - La Kearney MD - 06/06/2023 7:02 AM CDT Associated Problem(s): Essential hypertension Bp in the office today BP Readings from Last 1 Encounters: 06/06/23 128/78 Continue current regimen of lisinopril 5mg daily metoprolol 25mg at night Recommend DASH diet, heart-healthy lifestyle, exercise. Discussed the risks of hypertension. F/u in 6 months documented in this encounter Plan of Treatment Not on file documented as of this encounter Visit Diagnoses Diagnosis Encounter for wellness examination- Primary Essential hypertension Unspecified essential hypertension Mixed hyperlipidemia Benign prostatic hyperplasia with weak urinary stream Restless legs syndrome Restless legs syndrome (RLS) Situational anxiety Obstructive sleep apnea syndrome Obstructive sleep apnea (adult) (pediatric) Hyperlipidemia, unspecified hyperlipidemia type Neck pain Cervicalgia Spondylosis of lumbar region without myelopathy or radiculopathy documented in this encounter Discontinued Medications Medication Sig Discontinue Reason Start Date End Da te methylPREDNISolone (Medrol, Baltazar,) 4 mg Dosepack follow package directions Therapy completed 11/12/2022 06/06/2023 pravastatin (PRAVACHOL) 40 mg tabletIndications:Hyperl ipidemia, unspecified hyperlipidemia type TAKE 1 TABLET DAILY Reorder 10/02/2022 06/06/20 pramipexole (MIRAPEX) 1.5 mg tabletIndications:Restle ss legs syndrome Take 1 tablet (1.5 mg total) by mouth 3 (three) times a day Reorder 11/21/2022 06/06/2023 documented as of this encounter Care Teams Kiln Firer Helper Relationship Specialty Start Date End Date La Kearney MD [address] [facility] [address] [place] [id number] PCP - General Family Medicine 10/02/22 Mariaelena Zaidi MD Consulting Physician Sleep Medicine 07/12/21 documented as of this encounter
--- OUTSIDE RECORDS SUMMARY | 2024-09-17 12:51 | XMS_ITS | Encounter Summary ---
Author Organization [facility] Address [address] [place] [address] Care Team Providers Care Production Lead Name Role Phone Laura Tapia NP Primary Care Provider [phone] Mariaelena Zaidi MD Unavailable Reason for Visit * Reason Comments AutoPAP Follow Up Encounter Details Date Type Department Care Team (Late st Contact Info) Description 09/26/2022 2:15 PM SOLID WASTE MANAGEMENT ENGINEER Office Visit [facility] Sleep Medicine at [address] [place] [address] Mariaelena Zaidi MD [address] [place] [address] [address] [place] [address] Obstructive sleep apnea (Primary Dx); Hypersomnia; Restless leg syndrome; Obesity, unspecified classification, unspecified obesity type, unspecified whether serious comorbidity present Social History Tobacco Use Types Packs/Day Years [...] points, staff should administer the PHQ-9) 0 04/03/2022 Sex and Gender Information Value Date Recorded Sex Assigned at Not on file 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 SOLID WASTE MANAGEMENT ENGINEER Gender Identity Not on file Sexual Orientation Not on file documented as of this encounter Last Filed Vital Signs Vital Sign Reading Time Taken Comments Blood Pressure 134/87 09/26/2022 2:07 PM SOLID WASTE MANAGEMENT ENGINEER Pulse 64 09/26/2022 2:07 PM SOLID WASTE MANAGEMENT ENGINEER Temperature - - Respiratory Rate 18 09/26/2022 2:07 PM SOLID WASTE MANAGEMENT ENGINEER Oxygen Saturation 97% 09/26/2022 2:07 PM SOLID WASTE MANAGEMENT ENGINEER Inhaled Oxygen Concentration - - Weight 124.7 kg (275 lb) 09/26/2022 2:07 PM SOLID WASTE MANAGEMENT ENGINEER Height 188 cm (6' 2.02 ) 09/26/2022 2:07 PM SOLID WASTE MANAGEMENT ENGINEER Body Mass Index 35.29 09/26/2022 2:07 PM SOLID WASTE MANAGEMENT ENGINEER documented in this encounter Progress Notes * Mariaelena Zaidi MD - 09/26/2022 2:15 PM CST Images from the original note were not included. SUBJECTIVE Chief Complaints: Snoring, unrefreshing sleep, excessive daytime sleepiness HPI: Jaden De La Torre is a 52 y.o. male with a PMHx significant for obstructive sleep apnea, hypertension, hyperlipidemia, obesity, anxiety was seen in the sleep medicine clinic for obstructive sleep apnea. Obstructive sleep apnea: Patient currently is on auto CPAP at 5-16 cm of water. Patient has been using it every night and keeps it on throughout the night. There are days when he dozes off while watching TV and then later ongoes to the bed. Patient sometimes feels tired during the day. Patient states that he got a replacement for the [employer] Station and he used it for a couple of months last June and July. Patient has gone back to using the ResMed again. Patient states that he needs to switch the [employer] company from [facility] and respiratory care due to insurance reasons. History: Patient gives history of many years of snoring, witnessed apneas, waking up gasping or choking for air and excessive daytime sleepiness. Patient had a polysomnogram done 10-12 years ago in [place] and was started on CPAP machine. Patient started using it every night and uses it throu ghout the night. [facility] Patient states that he has gained 30 lb since the last sleep study. Patient continues to snore even when using the machine and he no longer sleeps in the same room as his due to his snoring. No witnessed apneas while he uses the CPAP machine. Patient complains of continued excessive daytime sleepiness. Patient denies any motor vehicle accidents or near misses. Denies falling asleep while talking or eating. No family history of obstructive sleep apnea. 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 Patient currently has a RespirAvatrip dream Station, which is on recall. Mask: F 30 fullface mask DME: [facility]-will switch to IV and respiratory care due to insurance reasons. Restless legs: Patient states that his symptoms are better. Patient has been taking half tablet of pramipexole 1.5mg tablet at around 8:00 p.m.. History: Patient gives history of many years of restless legs. Patient describes of uncomfortable feeling inhis bilateral lower extremity, which gets worse when he sits or lays down and gets better after walking. Patient states he has these symptoms 3-5 years ago and even prior to using any antidepressants. Patient has been on pramipexole. He takes 1.5 mg at around 9:00 p.m.. Patient has prescription for1.5 mg for up to 3 times a day. Patient states that he only uses it at night. Patient has been on the same dose for over 3-5 years. Patient states that his symptoms are fairly controlled on the current dose. No worsening of the symptoms over the past few years. Sleep schedule: History: On all days, he goes to bed at 10:00 p.m., falls asleep in 10 minutes and wakes up at 3-5 a.m.. He wakes up 3-5 times at night to use the restroom and is able to go back to sleep. He naps for 10-15 minutes almost every day. No history of morning headaches. Denies any motor vehicle accidents or near misses. Denies any hypnogogic or hypnopompic hallunications. Denies any sleep paralysis. Denies any cataplexy. Denies any sleepwalking or sleeptalking or sleep eating. Denies any motor activities, kicking, acting out dreams, falls, or screaming during sleep. Positive for urge to move his legs in the evening, during rest which gets better with activity. ESS: 16 (initial presentation 13) Past Medical History: Diagnosis Date Anxiety disorder Anxiety Depression Depression Enlarged prostate Erectile dysfunction Generalized abdominal pain 06/27/2019 GERD (gastroesophageal reflux disease) Hemorrhoids Hyperlipidemia Hypertension Hypoglycemia Palpitation Rectal pain 05/25/2020 Added automatically from request for surgery [id number] Sleep apnea Urinary retention Past Surgical History: Procedure Laterality Date BAND HEMORRHOIDECTOMY BIOPSY ABDOMEN RETROPERITONEAL N/A 02/06/2019 CARPAL TUNNEL RELEASE Bilateral COLONOSCOPY 08/26/2020 1st KNEE ARTHROSCOPY Right 02/2006 rt ac resection SHOULDER SURGERY Right Current Outpatient Medications: buPROPion XL, 300 mg, oral, QAM lisinopriL, TAKE 1 TABLET DAILY (Patient taking differently: 5 mg, oral, Nightly) metoprolol XL, TAKE 1 TABLET DAILY (Patient taking differently: 25 mg, oral, Nightly) pramipexole, 1.5 mg, oral, TID pravastatin, TAKE 1 TABLET DAILY No Known Allergies Social History Tobacco Use Smoking status: Never Smoker Smokeless tobacco: Former User Types: Chew Tobacco comment: chews, not interested in counseling Substance Use Topics Alcohol use: Yes Comment: can of beer a month Family History Problem Relation Age of Onset Cancer Mother lung Hypertension Mother Leukemia Mother Cancer Father lung Throat cancer Father Physical Exam: Vitals: 09/26/22 1407 BP: 134/87 BP Location: Left arm Patient Position: Sitting Pulse: 64 Resp: 18 SpO2: 97% Weight: 124.7 kg (275 lb) Height: 188 cm (6' 2.02 ) BMI: Body mass index is 35.29 kg/m??. Wt Readings from Last 6 Encounters: 09/26/22 124.7 kg (275 lb) 06/20/22 124.7 kg (275 lb) 04/12/22 124.3 kg (274 lb) 04/03/22 127.5 kg (281 lb) 02/20/22 127.7 kg (281 lb 9.6 oz) 10/18/21 125.7 kg (277 lb 1.6 oz) BMI Readings from Last 6 Encounters: 09/26/22 35.29 kg/m?? 06/20/22 35.31 kg/m?? 04/12/22 35.18 kg/m?? 04/03/22 36.06 kg/m?? 02/20/22 36.14 kg/m?? 10/18/21 35.56 kg/m?? Physical Exam General appearance: Alert, oriented, in no distress. HEENT: Atraumatic, normocephalic. Pupils are equal and reactive to light. Extraocular movement intact. Positive for macroglossia and scalloped tongue. Mallampati-IV. Extremities/Musculoskeletal: No pedal edema, no calf tenderness Neuro: No focal deficits Psychiatric: Normal mood and affect Polysomnogram results: Polysomnogram from 10-12 years ago in [place]: Not available Home sleep apnea testing on 05/30: ROLLY of 66.2 Data download: Ejection fraction: Stress echo from 2018: Normal systolic function Data reviewed: Dr. Nina, urology: History of BPH status post GreenLight laser vaporization of prostate. Follow-up with PSA in 6 months. Lab results: CO2 - 23, TSH - 1.51 Assessment and Plan: Severe obstructive sleep apnea: Home sleep apnea testing showed severe obstructive sleep apnea. Patient currently on auto CPAP at 5-16 cm of water. Download reviewed, excellent daily use, decrease nightly hourly use, well controlled with residual AHI of 2.5 per hour. Will change auto CPAP to 10-16 cm of water. Recommended patient to avoid sleeping in the recliner while watching TV and just go to bed when he feels tired and sleepy in the evening. The physiology of sleep disordered breathing and its increased association with hypertension, diabetes mellitus type 2, arrhythmias, strokes, heart attacks, heart failure, hypersomnia, obesity, cognitive dysfunction, and mood disorders were discussed. Hypnotics, sedatives, and related medications have the potential of worsening the apnea and should be avoided. Patients with sleep apnea may have significant daytime hypersomnolence. If that is the case, driving or handling heavy machinery should be avoided until the apnea and excessive sleepiness have resolved. Weight loss for ideal body weight range is recommended. Hypersomnia: Likely secondary to sleep fragmentation associated with uncontrolled sleep disordered breathing. Improved with auto CPAP use. No driving if sleepy. Morbid Obesity: The effects of obesity, obstructive sleep apnea syndrome and other morbidities were discussed. Recommended diet and exercise for ideal body weight. Patient verbalized understanding. Restless leg syndrome: Patient currently on half tablet of pramipexole 1.5 mg nightly at around 8:00 p.m.. Patient has nottaken the prescribed 3 times a day dose. Discussed with the patient at length that the maximum recommended dose of pramipexole for restless leg syndrome is 0.75 mg nightly during prior visit. Possibility of augmentation with pramipexole discussed in detail during prior visit. Last ferritin level on 05/2021 was high at 441 ng/ml. Return to clinic in 6 months. Voice recognition software Simple Direct was used dictate and transcribe this document. [employer] variances may occur. Despite proofreading, typographical errors may occur. Mariaelena Zaidi MD [facility] Sleep Medicine CC: Laura Tapia NP D WASTE MANAGEMENT ENGINEER documented in this encounter Plan of Treatment Not on file documented as of this encounter Visit Diagnoses Diagnosis Obstructive sleep apnea- Primary Obstructive sleep apnea (adult) (pediatric) Hypersomnia Hypersomnia, unspecified Restless leg syndrome Restless legs syndrome (RLS) Obesity, unspecified classification, unspecified obesity type, unspecified whether serious comorbidity present documented in this encounter Care Teams Production Lead Relationship Specialty Start Date End Date Laura Tapia NP PCP - General Family Medicine 09/30/19 10/01/22 Mariaelena Zaidi MD Consulting Physician Sleep Medicine 07/12/21 documented as of this encounter
--- OUTSIDE RECORDS SUMMARY | 2024-09-17 12:51 | XMS_ITS | Encounter Summary ---
Author Organization [facility] Address [address] [place] [address] Care Team Providers Care Ore Smelter Name Role Phone Mariaelena Zaidi MD Unavailable La Kearney MD Primary Care Provide r Reason for Visit * Reason Comments New Patient Encounter Details Date Type Department Care Team (Late st Contact Info) Description 10/02/2022 1:00 PM FEEDER DRIVER Office Visit [facility] Primary Care at [address] [place] [address] La Keareny MD [address] [place] [address] [address] [place] [address] Essential hypertension (Primary Dx); Class 2 obesity with body mass index (BMI) of 35.0 to 35.9 in adult, unspecified obesity type, unspecified whether serious comorbidity present; Encounter to establish care; Obstructive sleep apnea syndrome Social History Tobacco Use Types Packs/Day Years [...] on file 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 FEEDER DRIVER Gender Identity Not on file Sexual Orientation Not on file documented as of this encounter Last Filed Vital Signs Vital Sign Reading Time Taken Comments Blood Pressure 138/76 10/02/2022 1:01 PM FEEDER DRIVER Pulse 67 10/02/2022 1:01 PM FEEDER DRIVER Temperature - - Respiratory Rate 18 10/02/2022 1:01 PM FEEDER DRIVER Oxygen Saturation 94% 10/02/2022 1:01 PM FEEDER DRIVER Inhaled Oxygen Concentration - - Weight 125.6 kg (277 lb) 10/02/2022 1:01 PM FEEDER DRIVER Height 188 cm (6' 2.02 ) 10/02/2022 1:01 PM FEEDER DRIVER Body Mass Index 35.55 10/02/2022 1:01 PM FEEDER DRIVER documented in this encounter Progress Notes * La Kearney MD - 10/02/2022 1:00 PM CST Images from the original note were not included. Subjective/Objective Patient ID: Jaden De La Torre is a 52 y.o. male. Chief Complaint New Patient HPI 52M coming in to [facility] care. He had prostate surgery in June. He is starting to have symptoms which include urinary frequency. There is also some burning with urination. He has been having ED since the procedure and difficulty with ejaculation.He tried a friend's cialis and it worked for him. He is going to reach out to urology and discuss this more. He is doing wellotherwise. Review of Systems Constitutional: Negative for chills and fever. Respiratory: Negative for cough and shortness of breath. Cardiovascular: Negative for chest pain. Gastrointestinal: Negative for abdominal pain. Vitals: 10/02/22 1301 BP: 138/76 BP Location: Left arm Patient Position: Sitting Pulse: 67 Resp: 18 SpO2: 94% Weight: 125.6 kg (277 lb) Height: 188 cm (6' 2.02 ) No visits with results within 1 Month(s) from this visit. Latest known visit with results is: Office Visit on 08/20/2022 Component Date Value Glucose, ur, POC 08/20/2022 Negative Ketones, ur, POC 08/20/2022 Negative Blood, ur, POC 08/20/2022 Negative pH, ur, POC 08/20/2022 6.0 Protein, ur, POC 08/20/2022 Negative Nitrite, ur, POC 08/20/2022 Negative Leukocytes, ur, POC 08/20/2022 Negative Lot Number 08/20/2022 0 Physical Exam Constitutional: General: He is not [...] all orders for this visit: Essential hypertension (Primary) Assessment & Plan: Bp in the office today BP Readings from Last 1 Encounters: 10/02/22 138/76 Continue current regimen Recommend DASH diet, heart-healthy lifestyle, exercise. Discussed the risks of hypertension. F/u in 6 months Class 2 obesity with body mass index (BMI) of 35.0 to 35.9 in adult, unspecified obesity type, unspecified whether serious comorbidity present Encounter to establish care Assessment & Plan: Med list and problem list reviewed Obstructive sleep apnea syndrome Assessment & Plan: Continue following with sleep medicine They recently increased his pressure Side effects, risks, interactions reviewed with patient. Indications for testing discussed. Any further problems to contact us. He was told what to look out for and verbalized understanding. The patient was given the opportunity to have all questions answered today and was in agreement with the plan of care. La Kearney MD ER DRIVER documented in this encounter Miscellaneous Notes * Assessment & Plan Note - La Kearney MD - 10/02/2022 1:20 PM FEEDER DRIVER Associated Problem(s): Obstructive sleep apnea syndrome Continue following with sleep medicine They recently increased his pressure ER DRIVER * Assessment & Plan Note - La Kearney MD - 10/02/2022 1:19 PM FEEDER DRIVER Associated Problem(s): Encounter for wellness examination Med list and problem list reviewed ER DRIVER * Assessment & Plan Note - La Kearney MD - 10/01/2022 9:33 PM FEEDER DRIVER Associated Problem(s): Essential hypertension Bp in the office today BP Readings from Last 1 Encounters: 10/02/22 138/76 Continue current regimen Recommend DASH diet, heart-healthy lifestyle, exercise. Discussed the risks of hypertension. F/u in 6 months ER DRIVER ER DRIVER documented in this encounter Plan of Treatment Not on file documented as of this encounter Visit Diagnoses Diagnosis Essential hypertension- Primary Unspecified essential hypertension Class 2 obesity with body mass index (BMI) of 35.0 to 35.9 in adult, unspecified obesity type, unspecified whether serious comorbidity present Encounter to establish care Obstructive sleep apnea syndrome Obstructive sleep apnea (adult) (pediatric) documented in this encounter Care Teams Ore Smelter Relationship Specialty Start Date End Date La Kearney MD [address] [place] [address] DR LUCAS [address] [place] [address] PCP - General Family Medicine 10/02/22 Mariaelena Zaidi MD Consulting Physician Sleep Medicine 07/12/21 documented as of this encounter
--- OUTSIDE RECORDS SUMMARY | 2024-09-17 12:51 | XMS_ITS | Encounter Summary ---
Author Organization [facility] Address [address] [place] [address] Phone Care Team Providers Care Linen Keeper Name Role Phone Laura Tapia NP Primary Care Provider [phone] Mariaelena Zaidi MD Unavailable Reason for Visit * Reason Comments Follow-up * Consultation (Routine) - Closed Specialty Diagnoses / Procedures Referred By Zaida camacho Referred To Contact Urology Diagnoses Urinary frequency Incomplete emptying of bladder Microscopic hematuria Laura Tapia NP Phone: tel: fax: Chantal Carvajal NP Phone: tel: fax: Referral ID Status Reason Start Date Expiration Date V isits Requested Visits Authorized [id number] Closed Specialty Services Required 04/04/2022 05/04/2023 99 99 Encounter Details Date Type Department Care Team (Late st Contact Info) Description 08/20/2022 10:00 AM HONEY GRADER AND BLENDER Office Visit [facility]) - [facility] Urology [address] [place] [address] [place] [address] [place] [address] Retention of urine (Primary Dx) Social History Tobacco Use Types [...] on file 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 HONEY GRADER AND BLENDER Gender Identity Not on file Sexual Orientation Not on file documented as of this encounter Last Filed Vital Signs Vital Sign Reading Time Taken Comments Blood Pressure - - Pulse - - Temperature 37.2 ??C (99 ??F) 08/20/2022 9:45 AM HONEY GRADER AND BLENDER Respiratory Rate - - Oxygen Saturation - - Inhaled Oxygen Concentration - - Weight - - Height - - Body Mass Index - - documented in this encounter Progress Notes * Jozef Nina MD - 08/20/2022 10:00 AM CST Follow-up note Jaden De La Torre is a 51 y.o. male with history of BPH status post GreenLight laser vaporization of prostate. Postop day. Was complicated by urinary retention requiring repeat catheterization. Currently voiding well without difficulty. He reports occasional urinary urgency. He is also experiencing retrograde ejaculation - patient was reassured regarding urinary urgency and informed about retrograde ejaculation as a side effect from wide bladder neck Past Medical History: Diagnosis Date Anxiety disorder Anxiety Depression Depression Enlarged prostate Erectile dysfunction Generalized abdominal pain 06/27/2019 GERD (gastroesophageal reflux disease) Hemorrhoids Hyperlipidemia Hypertension Hypoglycemia Palpitation Rectal pain 05/25/2020 Added automatically from request for surgery [id number] Sleep apnea Urinary retention Past Surgical History: Procedure Laterality Date BAND HEMORRHOIDECTOMY BIOPSY ABDOMEN RETROPERITONEAL N/A 02/06/2019 CARPAL TUNNEL RELEASE Bilateral COLONOSCOPY 08/26/2020 1st KNEE ARTHROSCOPY Right 02/2006 rt ac resection SHOULDER SURGERY Right Social History Tobacco Use Smoking status: Never Smokeless tobacco: Former Types: Chew Quit date: 08/2018 Tobacco comments: chews, not interested in counseling Substance and Sexual Activity Drug use: Yes Types: Alcohol Comment: 18 pack beer once weekly Sexual activity: Defer Alcohol Use: Not on file Family History Problem Relation Age of Onset Cancer Mother lung Hypertension Mother Leukemia Mother Cancer Father lung Throat cancer Father (Not in a hospital admission) No Known Allergies Review of Systems: All other symptoms except HPI are negative Objective: Vitals: Temp 37.2 ??C (99 ??F) Lab/Radiology/Diagnostic Review: Reviewed. Plan: - follow-up in 6 months with PSA Jozef Nina MD Faculty, Urology division, Department of surgery, [facility] [employer] ([facility]) [facility] [place] ([facility]) Y GRADER AND BLENDER documented in this encounter Plan of Treatment Not on file documented as of this encounter Procedures Procedure Name Priority Date/Time Associated Diagnosis Comments POCT URINALYSIS DIPSTICK Routine 08/20/2022 9:50 AM HONEY GRADER AND BLENDER Retention of urine documented in this encounter Results * POCT urinalysis dipstick (08/20/2022 9:50 AM HONEY GRADER AND BLENDER) Glucose, ur, POC Negative Negative MG/DL Ketones, ur, POC Negative Negative Blood, ur, POC Negative Negative pH, ur, POC 6.0 5.0 - 8.0 Protein, ur, POC Negative Negative Nitrite, ur, POC Negative Negative Leukocytes, ur, POC Negative Negative Lot Number 0 Urine 08/20/2022 9:50 AM HONEY GRADER AND BLENDER Jozef Nina MD POINT OF CARE TEST ORDERABLES Final Result documented in this encounter Visit Diagnoses Diagnosis Retention of urine- Primary Unspecified retention of urine documented in this encounter Care Teams Linen Keeper Relationship Specialty Start Date End Date Laura Tapia NP PCP - General Family Medicine 09/30/19 10/01/22 Mariaelena Zaidi MD Consulting Physician Sleep Medicine 07/12/21 documented as of this encounter
--- OUTSIDE RECORDS SUMMARY | 2024-09-17 12:51 | XMS_ITS | Encounter Summary ---
Author Organization [facility] Address [address] [place] [address] Care Team Providers Care Orthopedic Shoe Fitter Name Role Phone Laura Tapia NP Primary Care Provider [phone] Mariaelena Zaidi MD Unavailable Reason for Visit * Reason Onset Date Comments Med Refill 08/22/2022 Call Back 08/22/2022 Medication Request 08/22/2022 Encounter Details Date Type Department Care Team (Late st Contact Info) Description 08/22/2022 Telephone [facility] at [address] [address] Laura Tapia NP [address] [place] [address] Med Refill; Call Back; Medication Request Social History Tobacco Use Types [...] on file 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 SOFTBALL UMPIRE Gender Identity Not on file Sexual Orientation Not on file documented as of this encounter Miscellaneous Notes * Telephone Encounter - Aster Kulkarni - 08/23/2022 9:38 AM CST Call Back Caller???s Concern: Patient called to follow up on request as he had not heard back. Advised patient this has been sent into his pharmacy Caller???s Call back #: [phone] Does message need to be routed? No BALL UMPIRE * Telephone Encounter - Sam Curry PA - 08/22/2022 10:31 AM SOFTBALL UMPIRE I sent in refill to hold him over until NOV BALL UMPIRE * Telephone Encounter - Daniella Dumont. - 08/22/2022 9:13 AM CST Medication Refill Patient's last Office/[facility] Visit: 04-12-2022 with Laura Tapia Patient's next Office/[facility] Visit: 10-02-2022 with Christel as a UROLOGY NURSE Medication(s) Name/Dose: Needs his medicine for his restleg leg syndrom filled, doesn't know the name. Pharmacy (s) medication(s) should be sent to: [facility] [place] Caller's Callback #: [phone] Additional Comments: Patient is almost out of his medicine. Does message need to be routed? Yes-Action Needed BALL UMPIRE documented in this encounter Plan of Treatment Not on file documented as of this encounter Visit Diagnoses Not on filedocumented in this encounter Care Teams Orthopedic Shoe Fitter Relationship Specialty Start Date End Date Laura Tapia NP PCP - General Family Medicine 09/30/19 10/01/22 Mariaelena Zaidi MD Consulting Physician Sleep Medicine 07/12/21 documented as of this encounter
--- OUTSIDE RECORDS SUMMARY | 2024-09-17 12:51 | XMS_ITS | Encounter Summary ---
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 Pt is rtw tomorrow. Patient Provider: Dr. Nina Medical/Surgical Information: Outcome/Plan: K RENTAL CLERK documented in this encounter Plan of Treatment Not on file documented as of this encounter Visit Diagnoses Not on filedocumented in this encounter Care Teams Peanut Sheller Relationship Specialty Start Date End Date Laura Tapia NP PCP - General Family Medicine 09/30/19 10/01/22 Mariaelena Zaidi MD Consulting Physician Sleep Medicine 07/12/21 documented as of this encounter
--- OUTSIDE RECORDS SUMMARY | 2024-09-17 12:51 | XMS_ITS | Encounter Summary ---
Author Organization [facility] Address [address] [place] [address] Care Team Providers Care Aviculturist Name Role Phone Laura Tapia NP Primary Care Provider [phone] Mariaelena Zaidi MD Unavailable Encounter Details Date Type Department Care Team (Late st Contact Info) Description 08/22/2022 Orders Only [facility] Primary Care at [address] [place] [address] Sam Curry PA [address] [place] [address] [address] [place], [place] [id number] Restless legs syndrome Social History Tobacco Use Types Packs/Day [...] on file 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 Gender Identity Not on file Sexual Orientation Not on file documented as of this encounter Ordered Prescriptions Prescription Sig Dispense Quantity Refills Last Filled Start Date End Date pramipexole (MIRAPEX) 1.5 mg tabletIndications: Restless legs syndrome Take 1 tablet (1.5 mg total) by mouth 3 (three) times a day 90 tablet 08/22/2022 11/21/2022 documented in this encounter Plan of Treatment Not on file documented as of this encounter Visit Diagnoses Diagnosis Restless legs syndrome Restless legs syndrome (RLS) documented in this encounter Discontinued Medications Medication Sig Discontinue Reason Start Date End Da te cefdinir (OMNICEF) 300 mg capsule Take 1 capsule (300 mg total) by mouth 2 (two) times a day 07/16/2022 08/22/2022 pramipexole (MIRAPEX) 1.5 mg tabletIndications:Restle ss legs syndrome Take 1 tablet (1.5 mg total) by mouth 3 (three) times a day Reorder 03/29/2020 08/22/2022 documented as of this encounter Care Teams Aviculturist Relationship Specialty Start Date End Date Laura Tapia NP PCP - General Family Medicine 09/30/19 10/01/22 Mariaelena Zaidi MD Consulting Physician Sleep Medicine 07/12/21 documented as of this encounter
--- OUTSIDE RECORDS SUMMARY | 2024-09-17 12:52 | XMS_ITS | Encounter Summary ---
Author Organization [facility] Address [address] [place] [address] Phone Care Team Providers Care Scout Sniper Name Role Phone Regina Laura ALAN Primary Care Provider [phone] Mariaelena Zaidi MD Unavailable Encounter Details Date Type Department Care Team (Late st Contact Info) Description 07/03/2022 Orders Only [facility] [place] Urology [address] [place] [address] [address] [place] [address] [place] [address] [facility] [address] [facility] [address] [place] [address] Acute cystitis without hematuria (Primary Dx) Social History Tobacco Use Types [...] on file 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 He also is having frequency, and at times he feels like he has to push to void. He had greenlight surgery with on 06/20/22.Informed him that he might be in retention, and need a catheter, but he stated that he will not have another one placed.Therefore, a urine culture order has been placed, and bactrim has been sent to his pharmacy. Regarding burning at the tip of his penis, he was advised that he can try neosporin to see if this helps. documented in this encounter Plan of Treatment Not on file documented as of this encounter Results * Urine culture Urine, clean voided (07/04/2022 9:32 AM CDT) Report Final Report: Less than 100,000 colonies/mL (clinically insignificant growth based on current clinical standards) [facility]) Comment:Testing performed by : [facility], [address] [place]., [address] Organism (CLINICALLY INSIGNIFICANT GROWTH [facility]) Urine, clean voided 07/04/2022 9:32 AM CDT 07/04/2022 4:37 PM CDT Narrative [facility]) - 07/05/2022 6:13 PM CDT Testing performed by [facility] Microbiology Laboratory ([phone]) us Jozef Nina MD LAB MICROBIOLOGY - GENERAL OR DERABLES Final Result [facility]) 1 [facility] Department [place] [address] documented in this encounter Visit Diagnoses Diagnosis Acute cystitis without hematuria- Primary Acute cystitis without hematuria documented in this encounter Care Teams Scout Sniper Relationship Specialty Start Date End Date Laura Tapia NP PCP - General Family Medicine 09/30/19 10/01/22 Mariaelena Zaidi MD Consulting Physician Sleep Medicine 07/12/21 documented as of this encounter
--- OUTSIDE RECORDS SUMMARY | 2024-09-17 12:52 | XMS_ITS | Encounter Summary ---
Author Organization [facility] [employer] [facility] Address [address] [place] [address] Phone Care Team Providers Care Res Counselor Name Role Phone Regina Laura ALAN Primary Care Provider [phone] Mariaelena Zaidi MD Unavailable Reason for Visit * Reason Comments Blood in Urine Encounter Details Date Type Department Care Team (Late st Contact Info) Description 06/07/2022 3:20 PM CDT Office Visit [facility]) - [facility] Urology [address] [facility] [address] [place] [address] [place] [address] [facility] [address] [place] [address] Microscopic hematuria (Primary Dx) Social History Tobacco Use [...] on file 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 male presenting for cystoscopy evaluation of microscopic hematuria. Office cystoscopy: The flexible cystoscope was introduced into the urethra and advanced into the bladder. URETHRA: normal PROSTATE: Moderately enlarged obstructive prostate TRIGONE & UOs: normal BLADDER MUCOSA: No mucosal lesions. I had a long discussion with the patient regarding BPH and LUTS. I discussed the standard evaluation options including cystoscopy and management. I discussed about medical management as a initial standard of care and indications of surgery includes significant symptoms in spite of medications, large median lobe, recurrent urinary tract infections or obstructive uropathy. Past Medical History: Diagnosis Date Anxiety disorder Anxiety Depression Depression Diabetes mellitus (HCC) hypoglycemia Erectile dysfunction Generalized abdominal pain 06/27/2019 GERD (gastroesophageal reflux disease) Hemorrhoids Hyperlipidemia Hypertension Palpitation Rectal pain 05/25/2020 Added automatically from request for surgery [id number] Sleep apnea Past Surgical History: Procedure Laterality Date BAND HEMORRHOIDECTOMY BIOPSY ABDOMEN RETROPERITONEAL N/A 02/06/2019 CARPAL TUNNEL RELEASE COLONOSCOPY 08/26/2020 1st KNEE ARTHROSCOPY Right 02/2006 rt ac resection SHOULDER SURGERY Social History Tobacco Use Smoking status: Never Smokeless tobacco: Former Types: Chew Quit date: 08/2018 Tobacco comments: chews, not interested in counseling Substance and Sexual Activity Drug use: No Sexual activity: Defer Alcohol Use: Not on file Family History Problem Relation Age of Onset Throat cancer Father Hypertension Mother Leukemia Mother (Not in a hospital admission) No Known Allergies Review of Systems: All other symptoms except HPI are negative Objective: Vitals: Temp 36.7 ??C (98 ??F) Lab/Radiology/Diagnostic Review: Reviewed. Plan: - GreenLight laser vaporization of prostate Jozef Nina MD Faculty, Urology division, Department of surgery, [facility] ([facility]) [facility] [place] ([facility]) documented in this encounter Plan of Treatment Not on file documented as of this encounter Procedures Procedure Name Priority Date/Time Associated Diagnosis Comments POCT URINALYSIS DIPSTICK Routine 06/07/2022 3:14 PM CDT Microscopic hematuria documented in this encounter Results * (ABNORMAL) POCT urinalysis dipstick (06/07/2022 3:14 PM CDT) Glucose, ur, POC Negative Negative MG/DL Ketones, ur, POC Negative Negative Blood, ur, POC Trace(A) Negative pH, ur, POC 7.0 5.0 - 8.0 Protein, ur, POC Negative Negative Nitrite, ur, POC Negative Negative Leukocytes, ur, POC Negative Negative Lot Number 0 Urine 06/07/2022 3:14 PM CDT Jozef Nina MD POINT OF CARE TEST ORDERABLES Final Result documented in this encounter Visit Diagnoses Diagnosis Microscopic hematuria- Primary documented in this encounter Care Teams Res Counselor Relationship Specialty Start Date End Date Laura Tapia NP PCP - General Family Medicine 09/30/19 10/01/22 Mariaelena Zaidi MD Consulting Physician Sleep Medicine 07/12/21 documented as of this encounter
--- OUTSIDE RECORDS SUMMARY | 2024-09-17 12:52 | XMS_ITS | Encounter Summary ---
Author Organization [facility] Address [address] [place] [address] Care Team Providers Care Sprinkler Inspector Name Role Phone Laura Tapia NP Primary Care Provider [phone] Mariaelena Zaidi MD Unavailable Reason for Visit * MRI/CAT/PET Scan (Routine) - Closed Specialty Diagnoses / Procedures Referred By Zaida t Referred To Contact Radiology Diagnoses Microscopic hematuria Procedures CT Urogram W 3D CT Urogram WO 3D Jozef Nina MD Phone: tel: fax: [address] [address] Referral ID Status Reason Start Date Expiration Date Visits Re quested Visits Authorized [id number] Closed 04/12/2022 05/12/2023 1 1 Encounter Details Date Type Department Care Team (Latest Contact Info) Description 05/09/2022 7:08 AM CDT - 05/09/2022 11:59 PM CDT Hospital Encounter [facility] [address] [place] [address] Microscopic hematuria Discharge Disposition: Discharge to home or self [...] on file 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 Gender Identity Not on file Sexual Orientation Not on file documented as of this encounter Medications at Time of Discharge meloxicam (MOBIC) 15 mg tablet Take 1 tablet (15 mg total) by mouth daily 30 tablet 06/28/2021 2 buPROPion XL (WELLBUTRIN XL) 300 mg 24 hr tablet Take 1 tablet (300 mg total) by mouth every morning 90 tablet 3 09/04/2021 3 lisinopriL (PRINIVIL,ZESTRIL) 5 mg tabletIndications:Es sential hypertension TAKE 1 TABLET DAILY 90 tablet 3 02/08/2022 3 metoprolol XL (TOPROL-XL) 25 mg extended release tabletIndications:Es sential hypertension TAKE 1 TABLET DAILY 90 tablet 3 02/08/2022 3 oxybutynin XL (Ditropan XL) 10 mg 24 hr tabletIndications:Bl adder Hyperactivity Take 1 tablet (10 mg total) by mouth daily for 20 days 20 tablet 04/12/2022 4 pramipexole (MIRAPEX) 1.5 mg tabletIndications:Re stless legs syndrome Take 1 tablet (1.5 mg total) by mouth 3 (three) times a day 90 tablet 03/29/2020 2 pravastatin (PRAVACHOL) 40 mg tabletIndications:Hy perlipidemia, unspecified hyperlipidemia type TAKE 1 TABLET DAILY 30 tablet 11 08/07/2021 2 tamsulosin (FLOMAX) 0.4 mg extended release capsule Take 1 capsule (0.4 mg total) by mouth daily 90 capsule 4 02/20/2022 2 documented as of this encounter Discharge Disposition Disposition Code Departure Means Destination Discharge to home or self care documented in this encounter Miscellaneous Notes * Result Encounter Note - Jozef Nina MD - 05/09/2022 11:59 PM CDT Schedule cystoscopy documented in this encounter Plan of Treatment Not on file documented as of this encounter Procedures Procedure Name Priority Date/Time Associated Diagnosis Comments CT UROGRAM W 3D Schedule Routine, Read Routine (OP Routine) 05/09/2022 9:22 AM CDT Microscopic hematuria documented in this encounter Results * CT Urogram W 3D (05/09/2022 9:22 AM CDT) Anatomical Region Laterality Modality Body Computed Tomogra phy 05/09/2022 11:1 8 AM CDT Impressions 05/09/2022 3:50 PM CDT 1. ??No findings to explain hematuria. 2. ??5.1 x 2.3 cm retroperitoneal mass appears unchanged, consistent with a history of ganglioneuroma. Dictated by: Nain Farooq MD The radiology attending physician has personally reviewed this study, and had reviewed and/or edited this written report and agrees with it. Electronically signed by: Oscar Carrillo M.D., Ph.D Narrative 05/09/2022 3:50 PM CDT EXAMINATION: 1. CT UROGRAPHY WITH AND WITHOUT CONTRAST 2. 3D RENDERING HISTORY: Hematuria. History of ganglioneuroma. TECHNIQUE: ??CT urography of the abdomen and pelvis was performed prior to and following the uneventful intravenous administration of 125 mL Optiray 350 in the combined nephrographic and excretory phases according to a split bolus protocol. Post-processed 3D images were generated on a dedicated workstation and also reviewed. COMPARISON: CT abdomen pelvis 05/18/2020 FINDINGS: UROGRAPHIC FINDINGS: There is dense contrast material within the renal collecting system, ureters, and urinary bladder on the noncontrast axial scan. This is most likely present from the contrast enhanced MRI from the same day. Right Kidney: The right kidney is normal size and measures 12.7 cm. There are no focal lesions. No calculi are seen. There is no hydronephrosis. The ureter is normal. The urothelium appears normal. Left Kidney: The left kidney is normal size and measures 13.3 cm. There are no focal lesions. No calculi are seen. There is no hydronephrosis. The ureter is normal. The urothelium appears normal. Bladder: There is no wall thickening. No masses are seen. NON-UROGRAPHIC FINDINGS: In the retroperitoneal space at the L4 vertebral body level there is a 5.1 x 2.3 cm mass posterior to the aorta just superior to the bifurcation. It appears unchanged from the reference 2020 examination. There are multiple small retroperitoneal lymph nodes, unchanged. There is a 5 mm right perirectal lymph node, which is unchanged. There is a fat-containing umbilical hernia. The liver, spleen, gallbladder, pancreas, and adrenal glands are normal. No suspicious osseous lesion is identified. There is an unchanged bone island in the left iliac bone (series 5 image 313). Procedure Note Oscar Carrillo MD PhD - 05/09/2022 EXAMINATION: 1. CT UROGRAPHY WITH AND WITHOUT CONTRAST 2. 3D RENDERING HISTORY: Hematuria. History of ganglioneuroma. TECHNIQUE: CT urography of the abdomen and pelvis was performed prior to and following the uneventful intravenous administration of 125 mL Optiray 350 in the combined nephrographic and excretory phases according to a split bolus protocol. Post-processed 3D images were generated on a dedicated workstation and also reviewed. COMPARISON: CT abdomen pelvis 05/18/2020 FINDINGS: UROGRAPHIC FINDINGS: There is dense contrast material within the renal collecting system, ureters, and urinary bladder on the noncontrast axial scan. This is most likely present from the contrast enhanced MRI from the same day. Right Kidney: The right kidney is normal size and measures 12.7 cm. There are no focal lesions. No calculi are seen. There is no hydronephrosis. The ureter is normal. The urothelium appears normal. Left Kidney: The left kidney is normal size and measures 13.3 cm. There are no focal lesions. No calculi are seen. There is no hydronephrosis. The ureter is normal. The urothelium appears normal. Bladder: There is no wall thickening. No masses are seen. NON-UROGRAPHIC FINDINGS: In the retroperitoneal space at the L4 vertebral body level there is a 5.1 x 2.3 cm mass posterior to the aorta just superior to the bifurcation. It appears unchanged from the reference 2020 examination. There are multiple small retroperitoneal lymph nodes, unchanged. There is a 5 mm right perirectal lymph node, which is unchanged. There is a fat-containing umbilical hernia. The liver, spleen, gallbladder, pancreas, and adrenal glands are normal. No suspicious osseous lesion is identified. There is an unchanged bone island in the left iliac bone (series 5 image 313). IMPRESSION: 1. No findings to explain hematuria. 2. 5.1 x 2.3 cm retroperitoneal mass appears unchanged, consistent with a history of ganglioneuroma. Dictated by: Nain Farooq MD The radiology attending physician has personally reviewed this study, and had reviewed and/or edited this written report and agrees with it. Electronically signed by: Oscar Carrillo M.D., Ph.D us Jozef Nina MD IMG CT PROCEDURES Final Resul t documented in this encounter Visit Diagnoses Diagnosis Microscopic hematuria documented in this encounter Administered Medications Inactive Administered Medications - up to 3 most recent administrations Medication Order MAR Action Action Date Dose Rate Site ioversoL (OPTIRAY 350) injection 125 mL 125 mL, intravenous, Once in imaging, contrast, Starting on Sat05/09/22 at 0859, For 1 dose Contrast Given 05/09/2022 9:25 AM CDT 125 mL documented in this encounter Care Teams Sprinkler Inspector Relationship Specialty Start Date End Date Laura Tapia NP PCP - General Family Medicine 09/30/19 10/01/22 Mariaelena Zaidi MD Consulting Physician Sleep Medicine 07/12/21 documented as of this encounter
--- OUTSIDE RECORDS SUMMARY | 2024-09-17 12:52 | XMS_ITS | Encounter Summary ---
Author Organization [facility] Address [address] [place] [address] Phone Care Team Providers Care Reading Tutor Name Role Phone Regina Laura PHILLIPS Primary Care Provider [phone]- [phone] Mariaelena Zaidi MD Unavailable Encounter Details Date Type Department Care Team (Late st Contact Info) Description 07/17/2022 Orders Only [facility] [place] Urology [address] [place] [address] [address] [place] [address] [place] [address] [facility] [address] [facility] [address] [place] [address] Retention of urine (Primary Dx); OAB (overactive bladder) Social History Tobacco Use Types Packs/Day Years [...] on file 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 Gender Identity Not on file Sexual Orientation Not on file documented as of this encounter Ordered Prescriptions Prescription Sig Dispense Quantity Refills Last Filled Start Date End Date tamsulosin (FLOMAX) 0.4 mg extended release capsuleIndications :Retention of urine Take 1 capsule (0.4 mg total) by mouth nightly for 7 days 7 capsule 07/17/2022 2 documented in this encounter Progress Notes * Valeria Coronado RMA - 07/17/2022 2:59 PM CST Patient calling stating that he has got this catheter placed and he is having urine leakage around the catheter at times.Urine is still going in his leg bag.I told him that that he needs to increase his fluid intake, due to having bladder spasms. When he went to the hospital they stated that he washolding 700cc of urine, and had a uti. They gave him cefdinir to treat his uti, and nothing else. Informed patient that I am going to send out tamsulosin for him until his appointment with COMPLIANCE SPECIALIST documented in this encounter Plan of Treatment Not on file documented as of this encounter Visit Diagnoses Diagnosis Retention of urine- Primary Unspecified retention of urine OAB (overactive bladder) documented in this encounter Care Teams Reading Tutor Relationship Specialty Start Date End Date Laura Tapia NP PCP - General Family Medicine 09/30/19 10/01/22 Mariaelena Zaidi MD Consulting Physician Sleep Medicine 07/12/21 documented as of this encounter
--- OUTSIDE RECORDS SUMMARY | 2024-09-17 12:52 | XMS_ITS | Encounter Summary ---
Author Organization [facility] Address [address] [place] [address] Phone Care Team Providers Care Fundraising Consultant Name Role Phone Laura Tapia NP Primary Care Provider [phone] Mariaelena Zaidi MD Unavailable Reason for Referral * MRI/CAT/PET Scan (Routine) - Closed Specialty Diagnoses / Procedures Referred By Zaida t Referred To Contact Radiology Diagnoses Prostate nodule Procedures MRI Pelvis Prostate W WO Contrast Jozef Nina MD Phone: tel: fax: [address] [address] Referral ID Status Reason Start Date Expiration Date Visits Re quested Visits Authorized [id number] Closed 04/12/2022 05/12/2023 1 1 * Diagnostic Lab (Routine) - Closed Specialty Diagnoses / Procedures Referred By Zaida camacho Referred To Contact Lab Diagnoses Microscopic hematuria Procedures Cytology Jozef Nina MD Phone: tel: fax: Referral ID Status Reason Start Date Expiration Date Visits Re quested Visits Authorized [id number] Closed 04/12/2022 05/12/2023 1 1 Reason for Visit * Reason Comments Benign Prostatic Hypertrophy Blood in Urine * Consultation (Routine) - Closed Specialty Diagnoses / Procedures Referred By Zaida camacho Referred To Contact Urology Diagnoses Urinary frequency Incomplete emptying of bladder Microscopic hematuria Laura Tapia NP Phone: tel: fax: Chantal Carvajal NP Phone: tel: fax: Referral ID Status Reason Start Date Expiration Date V isits Requested Visits Authorized [id number] Closed Specialty Services Required 04/04/2022 05/04/2023 99 99 Encounter Details Date Type Department Care Team (Late st Contact Info) Description 04/12/2022 3:40 PM CDT Office Visit [facility]) - [facility] [address] [place] [address] [place] [address] [facility] [address] [place] [address] Microscopic hematuria (Primary Dx); Urinary frequency; Incomplete emptying of bladder; Prostate nodule Social History Tobacco Use Types Packs/Day Years [...] on file 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 Gender Identity Not on file Sexual Orientation Not on file documented as of this encounter Last Filed Vital Signs Vital Sign Reading Time Taken Comments Blood Pressure 154/89 04/12/2022 4:01 PM CDT Pulse 62 04/12/2022 4:01 PM CDT Temperature - - Respiratory Rate - - Oxygen Saturation - - Inhaled Oxygen Concentration - - Weight 124.3 kg (274 lb) 04/12/2022 4:01 PM CDT Height 188 cm (6' 2 ) 04/12/2022 4:01 PM CDT Body Mass Index 35.18 04/12/2022 4:01 PM CDT documented in this encounter Ordered Prescriptions Prescription Sig Dispense Quantity Refills Last Filled Start Date End Date oxybutynin XL (Ditropan XL) 10 mg 24 hr tabletIndications:B ladder Hyperactivity Take 1 tablet (10 mg total) by mouth daily for 20 days 20 tablet 04/12/2022 4 documented in this encounter Progress Notes * Jozef Nina MD - 04/12/2022 3:40 PM CDT Urology History and Physical CC: Microscopic hematuria/LUTS/prostate nodule HPI: Jaden Clement is a 51 y.o. male presents for evaluation of microscopic hematuria. His longstanding lower urinary tract symptoms both obstructive and irritative and he was started on tamsulosin by primary care. He reports minimal improvement in his irritative voiding symptoms. Denies gross hematuria, dysuria, recurrent urinary tract infection or urinary retentions. No history of prior calculus disease or endo urological interventions. PSA: Component PSA Latest Ref Rng & Units <=3.90 ng/mL 10/21/2018 3.20 12/13/2021 3.65 Past Medical History: Diagnosis Date ??? Anxiety disorder Anxiety ??? Depression Depression ??? Diabetes mellitus (HCC) hypoglycemia ??? Erectile dysfunction ??? Generalized abdominal pain 06/27/2019 ??? GERD (gastroesophageal reflux disease) ??? Hemorrhoids ??? Hyperlipidemia ??? Hypertension ??? Palpitation ??? Rectal pain 05/25/2020 Added automatically from request for surgery [id number] ??? Sleep apnea Past Surgical History: Procedure Laterality Date ??? BAND HEMORRHOIDECTOMY ??? BIOPSY ABDOMEN RETROPERITONEAL N/A 02/06/2019 ??? CARPAL TUNNEL RELEASE ??? COLONOSCOPY 08/26/2020 1st ??? KNEE ARTHROSCOPY Right 02/2006 rt ac resection ??? SHOULDER SURGERY Social History Tobacco Use ??? Smoking status: Never Smoker ??? Smokeless tobacco: Former User Types: Chew Quit date: 08/2018 ??? Tobacco comment: chews, not interested in counseling Substance and Sexual Activity ??? Drug use: No ??? Sexual activity: Defer Alcohol Use: Not on file Family History Problem Relation Age of Onset ??? Throat cancer Father ??? Hypertension Mother ??? Leukemia Mother (Not in a hospital admission) No Known Allergies Review of Systems: All other symptoms except HPI are negative Objective: Vitals: BP 154/89 Pulse 62 Ht 188 cm (6' 2 ) Wt 124.3 kg (274 lb) BMI 35.18 kg/m?? Physical exam: General: Does not appear in acute distress; No pain present Head: Normocephalic/Atraumatic Eyes: No discharge noted; (R,L) extraocular movements are intact; Ears: (R,L) hearing grossly normal Nose/Mouth/Throat: Mucous membranes moist Neck: Neck inspection is normal; neck ROM normal Respiratory: Has normal respiratory effort; Exam: EDITA - 30 cc prostate with nodule in the right dereje gland Extremities: (R,L) [place] and warm; no edema Musculoskeletal: Normal range of motion present Neurology: Patient is alert and oriented to person, place and time. Mood: Has normal mood and affect Lab/Radiology/Diagnostic Review: Results for orders placed or performed in visit on 04/12/22 POCT urinalysis dipstick Result Value Ref Range Glucose, ur, POC Negative Negative MG/DL Bilirubin, ur, POC Negative Negative, Small, Moderate, Large Ketones, ur, POC Negative Negative Blood, ur, POC Negative Negative pH, ur, POC 6.0 5.0 - 8.0 Protein, ur, POC Negative Negative Nitrite, ur, POC Negative Negative Leukocytes, ur, POC 2+ (A) Negative Lot Number 0 Assessment : Jaden Clement is a 51 y.o. male with microscopic hematuria, LUTS and prostate nodule. - had a long discussion with the patient regarding evaluation of microscopic hematuria and the differential diagnosis including malignancies - discussed about lower urinary tract symptoms including BPH - discussed about evaluation of prostate nodule and differential diagnosis including prostate cancer Plan: - get CT urogram - prostate MRI - urine for cytology - cystoscopy to be scheduled after the scans Jozef Nina MD Faculty, Urology division, Department of surgery, [employer] ([facility]) [facility] Physician at [place] ([facility]) documented in this encounter Plan of Treatment Not on file documented as of this encounter Procedures Procedure Name Priority Date/Time Associated Diagnosis Comments POCT URINALYSIS DIPSTICK Routine 04/12/2022 4:06 PM CDT Microscopic hematuria MEASURE POST VOID RESIDUAL Routine 04/12/2022 Microscopic hematuria documented in this encounter Results * MRI Pelvis Prostate W WO Contrast (05/09/2022 9:02 AM CDT) Anatomical Region Laterality Modality Body N/A Magnetic Resonan ce 05/09/2022 10:5 7 AM CDT Impressions 05/09/2022 5:30 PM CDT 1. ??There are no suspicious lesions in the prostate (PI-RADS 3 or greater). 2. ??Changes at the base, consistent with prostatitis. Dictated by: Nain Farooq MD The radiology attending physician has personally reviewed this study, and had reviewed and/or edited this written report and agrees with it. Electronically signed by: Oscar Carrillo M.D., Ph.D Narrative 05/09/2022 5:30 PM CDT EXAMINATION: MAGNETIC RESONANCE IMAGING OF THE PELVIS WITHOUT AND WITH CONTRAST HISTORY: 51-year-old man with history of prostate nodule and lower urinary tract symptoms with microscopic hematuria. PSA level was 3.65 on 12/13/2021. TECHNIQUE: MR imaging of the prostate gland was performed with a torso phased array coil prior to and following administration of intravenous gadolinium. Protocol: Prostate 3T Contrast: gadoterate 20 mL COMPARISON: CT abdomen pelvis 05/18/[address] urogram 05/09/2022 FINDINGS: Prostate volume: 54 cc The prostate transition zone is enlarged with benign prostatic hyperplasia. The prostate was assessed using the PI-RADS version 2.1 scoring system. In the peripheral zone there is low T2 signal seen bilaterally at the base likely representing prostatitis. There are no suspicious lesions in the prostate (PI-RADS 3 or greater) Staging Information: ??No enlarged lymph nodes are identified. No suspicious osseous lesions are identified. Other findings: There are stable scattered subcentimeter lymph nodes in the internal iliac chains bilaterally. For example, the largest is on series 2 image #10, appearing unchanged since 2020. No rectal or bladder mass appreciated. There is partial imaging of the retroperitoneal mass, which is better described on the CT. Procedure Note Oscar Carrillo MD PhD - 05/09/2022 EXAMINATION: MAGNETIC RESONANCE IMAGING OF THE PELVIS WITHOUT AND WITH CONTRAST HISTORY: 51-year-old man with history of prostate nodule and lower urinary tract symptoms with microscopic hematuria. PSA level was 3.65 on 12/13/2021. TECHNIQUE: MR imaging of the prostate gland was performed with a torso phased array coil prior to and following administration of intravenous gadolinium. Protocol: Prostate 3T Contrast: gadoterate 20 mL COMPARISON: CT abdomen pelvis 05/18/[address] urogram 05/09/2022 FINDINGS: Prostate volume: 54 cc The prostate transition zone is enlarged with benign prostatic hyperplasia. The prostate was assessed using the PI-RADS version 2.1 scoring system. In the peripheral zone there is low T2 signal seen bilaterally at the base likely representing prostatitis. There are no suspicious lesions in the prostate (PI-RADS 3 or greater) Staging Information: No enlarged lymph nodes are identified. No suspicious osseous lesions are identified. Other findings: There are stable scattered subcentimeter lymph nodes in the internal iliac chains bilaterally. For example, the largest is on series 2 image #10, appearing unchanged since 2019. No rectal or bladder mass appreciated. There is partial imaging of the retroperitoneal mass, which is better described on the CT. IMPRESSION: 1. There are no suspicious lesions in the prostate (PI-RADS 3 or greater). 2. Changes at the base, consistent with prostatitis. Dictated by: Nain Farooq MD The radiology attending physician has personally reviewed this study, and had reviewed and/or edited this written report and agrees with it. Electronically signed by: Oscar Carrillo M.D., Ph.D us Jozef Nina MD IM MRI PROCEDURES Final Resu lt * (ABNORMAL) POCT urinalysis dipstick (04/12/2022 4:06 PM CDT) Glucose, ur, POC Negative Negative MG/DL Bilirubin, ur, POC Negative Negative, Small, Moderate, Large Ketones, ur, POC Negative Negative Blood, ur, POC Negative Negative pH, ur, POC 6.0 5.0 - 8.0 Protein, ur, POC Negative Negative Nitrite, ur, POC Negative Negative Leukocytes, ur, POC 2+(A) Negative Lot Number 0 Urine 04/12/2022 4:06 PM CDT Jozef Nina MD POINT OF CARE TEST ORDERABLES Final Result * Measure post void residual (04/12/2022) Narrative Cliff Valeria OSIEL - 04/12/2022 Measurement of post-voiding residual urine and/or bladder capacity by ultrasound, non-imaging. ??PVR = 188cc Jozef Nina MD NURSING ASSESSMENTS Final Res ult * Cytology (04/12/2022 12:00 AM CDT) Fluid (Urine, Voided (Cytology)) 04/12/2022 04/12/2022 1:33 PM CDT Narrative PATHOLOGY [facility] - 04/16/2022 3:29 PM CDT EPIC results best viewed via link to [facility] Department of Pathology [address] [place], [place] [id number] Note to Patients: ??This report may contain a detailed description of human tissue sent by a health care provider to the laboratory for pathologic evaluation. ??The content of this report is essential for diagnosis and may provide important critical findings. ??This information may be unfamiliar to patients to review without a medical professional present. ?? It is advised that the patient review this report in the presence of a health care provider who can answer questions and explain the details. Final Report Patient Name: ??JADEN CLEMENT Address: ??[address], [place] [address] Gender: ??M : ??1970 (Age: 51) Service: ??Laboratory Location: ??Lab [facility] # ??[id number] Patient Type: ?? Ref Lab Taken: ??04/12/2022 Received: ?? 04/12/2022 Accessioned: ?? 04/13/2022 Reported: ?? 04/16/2022 Physician(s): ??Jozef Nina MD Diagnosis: Urine, voided, cytology: ? - Negative for high-grade urothelial carcinoma (Stephanie system). Heath Jain M.D. Report Electronically Reviewed and Signed Out By ??Heath Mendoza M.D. ??04/16/2022 15:29:24Specimen(s) Received: A: Urine, Voided Clinical History: The patient is a 51 year old male with hematuria. Gross Description: 1 container received with 90 cc yellow CytoLyt solution. 1 ThinPrep made. Microscopic Description: Microscopic examination of the voided urine (one ThinPrep slide) reveals a specimen that is adequate for evaluation. ??The specimen consists of scattered benign urothelial cells in a background of occasional squamous cells and mild mixed inflammatory cells. ??There is no evidence of high-grade urothelial carcinoma. ?? The performance characteristics of some immunohistochemical stains, fluorescence in-situ hybridization tests and immunophenotyping by flow cytometry cited in this report (if any) were determined by the Surgical Pathology Department at [facility] as part of an ongoing quality assurance consultant program and in compliance with federally mandated [...] characteristics determined by the Surgical Pathology Department [facility]. ??It has not been cleared or approved by the U. S. Food and Drug Administration. Unless otherwise noted all cytology processing, staining and screening is performed at [facility] ([address] [place] [address]). REPORT IMAGES AND SCANNED DOCUMENTS, IF INCLUDED, ONLY VIEWABLE IN PDF VERSION OF REPORT us Jozef Nina MD LAB [place]TOLOGY [place] [address] [place] [address] documented in this encounter Visit Diagnoses Diagnosis Microscopic hematuria- Primary Urinary frequency Incomplete emptying of bladder Incomplete bladder emptying Prostate nodule Nodular prostate without urinary obstruction Microscopic hematuria Prostate nodule Nodular prostate without urinary obstruction documented in this encounter Orders Outpatient Referral Count Last Ordered Date Fir st Ordered Date AMB REFERRAL TO UROLOGY 1 04/12/2022 documented in this encounter Care Teams Fundraising Consultant Relationship Specialty Start Date End Date Laura Tapia NP PCP - General Family Medicine 09/30/19 10/01/22 Mariaelena Zaidi MD Consulting Physician Sleep Medicine 07/12/21 documented as of this encounter
--- OUTSIDE RECORDS SUMMARY | 2024-09-17 12:52 | XMS_ITS | Encounter Summary ---
Author Organization [facility] Address [address] [place] [address] Phone Care Team Providers Care Information Technology Consultant Name Role Phone Regina Laura PHILLIPS Primary Care Provider [phone] Mariaelena Zaidi MD Unavailable Encounter Details Date Type Department Care Team (Late st Contact Info) Description 05/17/2022 Telephone [facility]) - [facility] Urology [address] [address] [place] [address] [place] [address] 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 Gender Identity Not on file Sexual Orientation Not on file documented as of this encounter Miscellaneous Notes * Telephone Encounter - Valeria Coronado RMA - 05/17/2022 1:49 PM CDT Cystoscopy scheduled per 's request * Telephone Encounter - Valeria Coronado RMA - 05/17/2022 1:49 PM CDT ----- Message from Jozef Nina MD sent at 05/11/2022 5:02 PM CDT ----- Schedule cystoscopy documented in this encounter Plan of Treatment Not on file documented as of this encounter Visit Diagnoses Not on filedocumented in this encounter Care Teams Information Technology Consultant Relationship Specialty Start Date End Date Laura Tapia NP PCP - General Family Medicine 09/30/19 10/01/22 Mariaelena Zaidi MD Consulting Physician Sleep Medicine 07/12/21 documented as of this encounter
--- OUTSIDE RECORDS SUMMARY | 2024-09-17 12:52 | XMS_ITS | Encounter Summary ---
Author Organization [facility] Healthcare Address [address] [place] [address] Care Team Providers Care Clinical Laboratory Aides Teacher Name Role Phone Laura Tapia NP Primary Care Provider [phone] Mariaelena Zaidi MD Unavailable Reason for Visit * Diagnostic Lab (Routine) - Closed Specialty Diagnoses / Procedures Referred By Contac t Referred To Contact Lab Diagnoses Microscopic hematuria Procedures Cytology Jozef Nina MD Phone: tel: fax: Referral ID Status Reason Start Date Expiration Date Visits Re quested Visits Authorized [id number] Closed 04/12/2022 05/12/2023 1 1 Encounter Details Date Type Department Care Team (Late st Contact Info) Description 04/12/2022 7:05 PM CDT Lab [address] [address] Microscopic hematuria Social History Tobacco Use Types Packs/Day Years [...] on file 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 Gender Identity Not on file Sexual Orientation Not on file documented as of this encounter Plan of Treatment Not on file documented as of this encounter Procedures Procedure Name Priority Date/Time Associated Diagnosis Comments CYTOLOGY Routine 04/12/2022 12:00 AM CDT Microscopic hematuria documented in this encounter Results * Cytology (04/12/2022 12:00 AM CDT) Fluid (Urine, Voided (Cytology)) 04/12/2022 04/12/2022 1:33 PM CDT Narrative PATHOLOGY CH - 04/16/2022 3:29 PM CDT EPIC results best viewed via link to [facility] Department of Pathology [address] [place] [address] Note to Patients: ??This report may contain [...] explain the details. Final Report Patient Name: ??THOMAS CLEMENT Address: ??[address], [place] [address] Gender: ??M : ??1970 (Age: 51) Service: ??Laboratory Location: ??Lab Hospital # ??[id number] Patient Type: ?? Ref Lab Taken: ??04/12/2022 [...] determined by the Surgical Pathology Department at [facility] as part of an ongoing quality assurance supervisor final program and in compliance with federally mandated [...] characteristics determined by the Surgical Pathology Department [facility]. ??It has not been cleared or approved by the U. S. Food and Drug Administration. Unless otherwise noted all cytology processing, staining and screening is performed at [facility] ([address] [place] [address]). REPORT IMAGES AND SCANNED DOCUMENTS, IF INCLUDED, ONLY VIEWABLE IN PDF VERSION OF REPORT us Jozef Nina MD LAB CYTOLOGY ORDERABLES [place] [address] documented in this encounter Visit Diagnoses Diagnosis Microscopic hematuria documented in this encounter Care Teams Clinical Laboratory Aides Teacher Relationship Specialty Start Date End Date Laura Tapia NP PCP - General Family Medicine 09/30/19 10/01/22 Mariaelena Zaidi MD Consulting Physician Sleep Medicine 07/12/21 documented as of this encounter
--- OUTSIDE RECORDS SUMMARY | 2024-09-17 12:52 | XMS_ITS | Encounter Summary ---
Author Organization 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 Gender Identity Not on file Sexual Orientation Not on file documented as of this encounter Plan of Treatment Not on file documented as of this encounter Procedures Procedure Name Priority Date/Time Associated Diagnosis Comments URINE CULTURE Routine 06/18/2022 8:23 AM CDT Urinary frequency COVID-19 CORONAVIRUS RNA Routine 06/18/2022 8:20 AM CDT Preoperative clearance documented in this encounter Results * Urine culture Urine, clean voided (06/18/2022 8:23 AM CDT) Report Final Report: Less than 100,000 colonies/mL (clinically insignificant growth based on current clinical standards) [facility] Comment:Testing performed by : [facility], [address] [place]., [address] Organism (CLINICALLY INSIGNIFICANT GROWTH [facility] ([place]) Urine, clean voided 06/18/2022 8:23 AM CDT 06/18/2022 5:16 PM CDT Narrative [facility] - 06/19/2022 6:54 PM CDT Testing performed by [facility] Microbiology Laboratory ([phone]) Jozef Nina MD LAB MICROBIOLOGY - GENERAL OR DERABLES Final Result [facility] ([facility]) [address] [facility] Department [place] [address] * COVID-19 Coronavirus RNA Nasopharyngeal (06/18/2022 8:20 AM CDT) COVID-19 RNA Not Detected [facility] ([facility]) Comment: Interpretive Data Synonyms for this test include: PCR and NAAT . ??Testing performed by the [facility] Infectious Disease [facility]. The 2019-Novel Coronavirus Assay (COVID-19) Real Time RT-PCR assay is for in vitro diagnostic use under FDA emergency use authorization only. A negative RT-PCR result does not preclude infection with COVID-19 and should not be used as the sole basis for treatment or other patient management decisions. ??Additional sample types have been validated according to CLIA regulations. ?? Current Interpretive Data was last revised on October 13, 2020. Testing performed by: [facility], [address] [place] [address] Nasopharyngeal 06/18/2022 8: 20 AM CDT 06/18/2022 12:31 PM CDT Narrative [facility] ([facility]) - 06/18/2022 10:04 PM CDT Is the patient experiencing any symptoms consistent with COVID (eg. Fever, cough, shortness of breath)?->No What is the reason for testing?->Screening prior to scheduled??procedure or surgery??(Batched) us Jozef Nina MD LAB MICROBIOLOGY - GENERAL OR DERABLES Final Result Performing Organization Address City/State/[facility] Co de Phone Number [facility]) 1 [facility] Department [place] [address] documented in this encounter Visit Diagnoses Diagnosis Preoperative clearance Unspecified pre-operative examination Urinary frequency documented in this encounter Care Teams Pbx Operator Relationship Specialty Start Date End Date Laura Tapia NP PCP - General Family Medicine 09/30/19 10/01/22 Mariaelena Zaidi MD Consulting Physician Sleep Medicine 07/12/21 documented as of this encounter
--- OUTSIDE RECORDS SUMMARY | 2024-09-17 12:52 | XMS_ITS | Encounter Summary ---
Author Organization [facility] Healthcare Address [address] [place] [address] Care Team Providers Care Quality Control Representative Name Role Phone Laura Tapia NP Primary Care Provider [phone] Mariaelena Zaidi MD Unavailable Reason for Visit * Auth/Cert Specialty Diagnoses / Procedures Referred By Contac t Referred To Contact Diagnoses Benign prostatic hyperplasia with weak urinary stream Benign prostatic hyperplasia with weak urinary stream [N40.1, R39.12] Procedures [place] LASER VAPORIZATION SURGERY PROSTATE, COMPLETE LASER ABLATION VAPORIZATION PROSTATE/ 90 min Referral ID Status Reason Start Date Expiration Date Visits Re quested Visits Authorized [id number] 1 1 Encounter Details Date Type Department Care Team (Latest Contact Info) Description 06/20/2022 5:40 AM CDT - 06/20/2022 11:40 AM CDT Hospital Encounter [facility] Operating Room [address] [place] [address] Jozef Nina MD [id number] [place] [address] [address] [facility] [address] [place] [address] Discharge Disposition: Discharge to home or self [...] file 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 Gender Identity Not on file Sexual Orientation Not on file documented as of this encounter Last Filed Vital Signs Vital Sign Reading Time Taken Comments Blood Pressure 132/85 06/20/2022 10:05 AM CDT Pulse 59 06/20/2022 10:10 AM CDT Temperature 36.4 ??C (97.6 ??F) 06/20/2022 9:10 AM CD T Respiratory Rate 20 06/20/2022 10:10 AM CDT Oxygen Saturation 97% 06/20/2022 10:10 AM CDT Inhaled Oxygen Concentration - - Weight 124.7 kg (275 lb) 06/20/2022 6:17 AM CDT Height 188 cm (6' 2 ) 06/20/2022 6:17 AM CDT Body Mass Index 35.31 06/20/2022 6:17 AM CDT documented in this encounter Discharge Instructions * Discharge Instructions* Erin Ferguson RN - 06/20/2022 9:19 AM CDT FOLLOW UP CALLS You may get a couple of follow-up phone calls from us over the next 2 days. For your information, our number may come up as unknown or a random number. If our surgical flow allows, we will attempt tomake a phone call the same day of surgery if you were discharged prior to 3pm. Regardless, we will call you the next day after surgery to follow up with you on pain control and see if you have any questions or concerns. If we are unable to reach you, we will leave a voice message if that is an option and then attempt to reach you again the following day. If we are still unable to reach you on that second day after surgery, we will stop the process of follow up calls. Please reach out to your surgeon if you have any questions or concerns. We want you to be able to say your care was EXCELLENT! If it was not, please let us know! Good and Great are not enough for us, we strive for EXCELLENCE! * Attachments The following attachments cannot be sent through Care Everywhere. * General Anesthesia (Discharge Care) (Kittitian) * Prostate Photovaporization (Discharge Care) (Kittitian) * Guevara Catheter Placement and Care (Discharge Care) (Kittitian) * Guevara Catheter Removal (Discharge Care) (Kittitian) documented in this encounter Medications at Time [...] TABLET DAILY 30 tablet 11 08/07/2021 2 documented as of this encounter Discharge Disposition Disposition Code Departure Means Destination Discharge to home or self care documented in this encounter H&P Notes * Jozef Nina MD - 06/20/2022 7:49 AM CDT I have reviewed the H&P, examined the patient, and endorse the findings as written. Plan of Care : Based on the above findings, I consider Jaden De La Torre to be an acceptable risk for: Procedure(s): LASER ABLATION VAPORIZATION PROSTATE/ 90 min Source Note - Jozef Nina MD - 06/07/2022 3:20 PM [...] 05/25/2020 Added automatically from request for surgery [id number] Sleep apnea Past Surgical History: Procedure Laterality [...] MD Faculty, Urology division, Department of surgery, [employer] ([facility]) [facility] [place] ([facility]) documented in this encounter Miscellaneous Notes * Op Note - Jozef Nina MD - 06/20/2022 7:30 AM CDT OPERATIVE REPORT SURGEON: Jozef Nina M.D. SURGICAL TEAM: Surgeon(s) and Role: * Jozef Nina MD - Primary ANESTHESIA: General PREOPERATIVE DIAGNOSIS: Benign prostatic hyperplasia, bladder outlet obstruction POSTOPERATIVE DIAGNOSIS: Benign prostatic hyperplasia, bladder outlet obstruction NAME OF OPERATION: Cystoscopy, transurethral laser vaporization resection of prostate. (Green lightlaser) INDICATION FOR PROCEDURE: Jaden De La Torre is a 51 y.o. old male with a history of benign prostatic hyperplasia, bladder outlet obstruction, and lower urinary tract symptoms. We discussed relevant risks, benefits, and alternatives and the decision was made to proceed with cystoscopy and TURP. OPERATIVE FINDINGS: Trilobar occlusive prostate. COMPLICATIONS: None. DRAINS: 22-Ukrainian 3-way Guevara catheter. PROCEDURE IN DETAIL: After informed consent was obtained the patient was taken to the operating room. He received preoperative antibiotic prophylaxis and sequential compression devices for DVT prophylaxis. After induction of anesthesia he was placed in lithotomy position. Genitalia was prepped and draped in usual fashion. A cystoscope was advanced through the urethra. The anterior urethra was unremarkable. The prostatic urethra demonstrated trilobar occlusive prostate. The bladder was entered and examined throughout in a systematic fashion. This revealed no mucosal lesions. The 26 Ukrainian continuous flow resectoscope sheath was inserted using an precision honing machine operator and the GreenLight laser fiber was inserted. A setting of 180 w was utilized. First a trough was created at the 7 o'clock position extending from the bladder neck back to the verumontanum. Vaporization then continued across the median lobe portion and the lateral lobes. At the conclusion of the procedure the prostatic urethra appeared to be open and hemostatic. Vaporization did not extend distal to the verumontanum and the ureteral orifices were intact. The scope was removed and a 20 Ukrainian Guevara catheter was inserted. The patient was awakened from anesthesia and transported to the recovery area in stable condition. He tolerated the procedure without complication. He will be discharged home with a Guevara catheter and we will plan for a voiding trialon POD 2 SPECIMENS REMOVED: None. ESTIMATED BLOOD LOSS: Minimal SPONGE, INSTRUMENT, AND NEEDLE COUNT: Endoscopic case, not applicable. CONDITION ON DISCHARGE: Stable to PACU. ATTESTATION OF PRESENCE: I was present and directly participated in the entire procedure. Plan: TOV / Guevara removal at home on POD 2 * Pre-Procedure Instructions - Michelle Diallo RN - 06/15/2022 10:30 AM CDT We are pleased that you and your doctor have chosen [facility] for your surgery. We hope that the following information will help make your visit a pleasant one. Surgery Date: 06/20/2022 and arrive at 5:30 AM [facility] (look for sign reading ???[facility] ) [address] [place] [address] Before your surgery: Notify your doctor of ANY change in your health such as a cold, sore throat, fever, infection or a change in the problem for which you are having your surgery. Follow any instructions given to you by your doctor or surgeon. Complete COVID Testing 3-4 days prior to surgery (Monday 06/18 before 12 PM ; after testing return home and self-isolate until Day of Surgery. Covid testing can be done at [facility] [address] [place] [id number] Hours are: Saturday through Saturday 7 AM to 4:00 PM, and Saturday 7 AM to 1200 PM Check with your doctor if you need to STOP taking: Aspirin (ordered by your doctor) Plavix Coumadin (Warfarin) Eliquis Brilinta Xarelto Effient (PRASUGREL) One week before surgery STOP taking: All herbal/vitamin supplements Aspirin (not ordered by your doctor) Aleve, Advil, Motrin, Ibuprofen, Excedrin, Naproxen, Meloxicam, Diclofenac (oral & topical) Relafen, Celebrex, Ketorolac (Toradol) or other similar medications (Tylenol is okay unless it is not recommended by your physician). Fish Oil, Co Q 10, Cod Liver Oil, or other similar products. 24 hours before your surgery: No smoking, vaping, alcohol, Marijuana, or recreational drug use. Hydrate yourself (water) - if no restrictions. Night before your surgery: DO NOT eat or drink anything after midnight including candy, mints, gum, chewable antacids, and cough drops. Do not take TAYLOR/ARB inhibitor medications (Lisinopril). Follow surgeon's instructions for anti-bacterial shower night before and morning of surgery. Shower Instructions: Clean your hair using normal shampoo and/or conditioner products. Using an antibacterial soap (Example: Dove Antibacterial soap, Gold Dial, Nigerien Spring, Zest, Safeguard, Coast) wash your body thoroughly then rinse thoroughly and dry with a clean towel (use a different freshly washed towel for each shower). Do not use lotions, powders, creams, Vaseline, or hair products aftereither shower. Dress in clean, freshly washed pajamas or clothing. Do not shave below the neck on the night before or day of surgery The night before surgery sleep on clean linen Do Not let pets sleep with you Day of surgery: Do NOT swallow any water when you brush your teeth. Repeat your shower. No smoking, vaping, alcohol, or recreational drug use. ONLY take these pills with a sip of water. Pre-Surgery Instructions: Medication Instructions NONE Wear comfortable clothes that will not be tight over the area of your surgery Do not wear jewelry, body piercing's, makeup, hairpins, false eye lashes, or contact lenses. Do Not Glue Dentures or Partials In If you have an implantable device with a remote, bring the remote with you on the day of surgery. Leave all valuables and jewelry (including all body piercing jewelry) at home. If you use a CPAP machine, please bring it with you to wear after your surgery. Please bring your photo ID, insurance cards, and medication list (including all [id number] medications) with you. Prescriptions can be filled onsite prior to discharge. Please have your co-pay available. Check in at the Registration Desk. Wear a mask. You may have 2 visitors daily (visitor must be over the age of 18). After your Outpatient Surgery: You must have a responsible adult to drive you home, you will not be allowed to drive or take a cabhome. We recommend you have someone stay with you for 24 hours after your surgery. What to bring if you are spending the night with us: Bring toiletry items such as: robe, slippers, toothbrush, toothpaste, brush or comb. Bring contact lens, hearing aids, glass cases and denture container if you use any of these items. The hospital will provide you with a gown. Questions or concerns: If you have any questions or concerns regarding your procedure, or to cancel your surgery/procedure- contact your surgeon as soon as possible. If you have questions regarding your Pre-Admission Screen/Testing, please call Michelle at before 5 PM M-F. documented in this encounter Plan of Treatment Not on file documented as of this encounter Procedures Procedure Name Priority Date/Time Associated Diagnosis Comments LASER ABLATION VAPORIZATION PROSTATE 06/20/2022 7:53 AM CDT Benign prostatic hyperplasia with weak urinary stream Special Needs greenlight mach documented in this encounter Visit Diagnoses Diagnosis Benign prostatic hyperplasia with weak urinary stream- Primary documented in this encounter Admitting Diagnoses Diagnosis Benign prostatic hyperplasia with weak urinary stream documented in this encounter Administered Medications Inactive Administered Medications - up to 3 most recent administrations Medication Order MAR Action Action Date Dose Rate Site acetaminophen (TYLENOL) 500 mg tablet - ADS Override Pull Starting on Sat06/20/22 at 0552, For 1 dose, Created by cabinet override acetaminophen (TYLENOL) tablet 1,000 mg 1,000 mg, oral, Once, On Sat06/20/22 at 0630, For 1 dose, Pre-Op, Indications: Pre-Emptive AnalgesiaIndications:Pre-E mptive Analgesia Given 06/20/2022 6:07 AM CDT 1,000 mg celecoxib (CeleBREX) 200 mg capsule - ADS Override Pull Starting on Sat06/20/22 at 0553, For 1 dose, Created by cabinet override celecoxib (CeleBREX) capsule 200 mg 200 mg, oral, Once, On Sat06/20/22 at 0630, For 1 dose, Pre-Op, Indications: Pre-Emptive PainIndications:Pre-Emptiv e Pain Given 06/20/2022 6:07 AM CDT 200 mg fentaNYL (SUBLIMAZE) 50 mcg/mL preservative free injection - ADS Override Pull Starting on Sat06/20/22 at 0928, For 1 dose, Created by cabinet override fentaNYL (SUBLIMAZE) preservative free injection 50 mcg 50 mcg, intravenous, Once as needed, uncontrolled pain on PACU admission, Starting on Sat06/20/22 at 0912, For 1 dose, Phase I, Then proceed to PACU 1st line analgesic., Indications: PainIndications:Pain Given 06/20/2022 9:30 AM CDT 50 mcg Lactated Ringer's (LR) infusion - ADS Override Pull Starting on Sat06/20/22 at 0553, For 1 dose, Created by cabinet override Lactated Ringer's (LR) infusion 30 mL/hr, intravenous, Continuous, Starting on Sat06/20/22 at 0630, Pre-Op Rate/Dose Verify 06/20/2022 7:53 AM CDT 30 mL/hr New Bag 06/20/2022 6:08 AM CDT 30 mL/hr 30 mL/hr metoprolol XL (TOPROL-XL) extended release tablet 25 mg 25 mg, oral, Once, On Sat06/20/22 at 0700, For 1 dose, Pre-Op, Tablets that are scored may be split, but do not crush, chew, dissolve, open or otherwise manipulate tablet/capsule. Given 06/20/2022 6:48 AM CDT 25 mg documented in this encounter Discontinued Medications Medication Sig Discontinue Reason Start Date End Da te tamsulosin (FLOMAX) 0.4 mg extended release capsule Take 1 capsule (0.4 mg total) by mouth daily Stop Taking at Discharge 02/20/2022 06/20/2022 documented as of this encounter Active and Recently Administered Medications Times are shown in CDT. Scheduled Medication Order 06/18/2022 06/19/2022 06/20/2022 acetaminophen (TYLENOL) tablet 1,000 mg (COMPLETED) 1,000 mg, oral, Once, On Sat06/20/22 at 0630, For 1 dose, Pre-Op, Indications: Pre-Emptive Analgesia 06 (Given - Provid er: Taylor Carreon RN) belladonna alkaloids-opium (B&O SUPPRETTES) 16.2-30 mg suppository 30 mg (COMPLETED) 30 mg, rectal, Once, On Sat06/20/22 at 0915, For 1 dose, Intra-Op, Indications: Spasm of Bladder 09 (Given - Provid er: Jozef Nina MD)0915 (Due) ceFAZolin (ANCEF) 1 gram/10 mL in sterile water (premix) 3,000 mg (COMPLETED) 3,000 mg, intravenous, at 600 mL/hr, Administer over 3 Minutes, Once, On Sat06/20/22 at 0630, For 1 dose, Pre-Op, Administer within 60 minutes of incision., Indications: Prophylaxis, Surgical 0753 (Given - Provid er: Campos Harris CRNA) celecoxib (CeleBREX) capsule 200 mg (COMPLETED) 200 mg, oral, Once, On Sat06/20/22 at 0630, For 1 dose, Pre-Op, Indications: Pre-Emptive Pain 0607 (Given - Provid er: Taylor Carreon RN) metoprolol XL (TOPROL-XL) extended release tablet 25 mg (COMPLETED) 25 mg, oral, Once, On Sat06/20/22 at 0700, For 1 dose, Pre-Op, Tablets that are scored may be split, but do not crush, chew, dissolve, open or otherwise manipulate tablet/capsule. 0648 (Given - Provid er: Jessy Woodard RN) Continuous Medication Order 06/18/2022 06/19/2022 06/20/2022 Lactated Ringer's (LR) infusion 30 mL/hr, intravenous, Continuous, Starting on Sat06/20/22 at 0630, Pre-Op 0608 (New Bag - Prov ider: Taylor Carreon RN)0753 (Rate/Dose Verify - Provider: Campos Harris CRNA)0856 (Anesthesia Volume Adjustment - Provider: Campos Harris CRNA)0910 (Continued from OR - Provider: Berenice Earl RN)1545 (Due: Stopped) PRN Medication Order 06/18/2022 06/19/2022 06/20/2022 fentaNYL (SUBLIMAZE) preservative free injection 50 mcg (COMPLETED) 50 mcg, intravenous, Once as needed, uncontrolled pain on PACU admission, Starting on Sat06/20/22 at 0912, For 1 dose, Phase I, Then proceed to PACU 1st line analgesic., Indications: Pain 0930 (Given - Provid er: Berenice Earl RN) sodium chloride 0.9% irrigation (CANCELED) As needed, Starting on Sat06/20/22 at 0829, Intra-Op 0829 (Given - Provid er: Jozef Nina MD - Comment: BLADDER/PROSTATE) documented in this encounter Orders Medications Ordered That Aden ht Not Have Been Administered Count Last Ordered Date First Ordered Date belladonna alkaloids-opium ( B&O SUPPRETTES) 16.2-30 mg suppository 30 mg 1 06/20/2022 Carrier Fluids for Secondary Infusion - 0.9% Sodium Chloride 1 06/20/2022 ceFAZolin (ANCEF) 1 gram/10 mL in sterile water (premix) - ADS Override Pull 1 06/20/2022 ceFAZolin (ANCEF) 1 gram/10 mL in sterile water (premix) 2,000 mg 1 06/20/2022 ceFAZolin (ANCEF) 1 gram/10 mL in sterile water (premix) 3,000 mg 1 06/20/2022 meperidine (DEMEROL) preserv ative free injection 12.5 mg 1 06/20/2022 naloxone (NARCAN) 0.4 mg/mL injection 0.04-0.4 mg 1 06/20/2022 ondansetron (ZOFRAN) injection 4 mg 1 06/20 sodium chloride 0.9% flush 0.5-20 mL 1 06/09 sodium chloride 0.9% irrigation 1 Diet Count Last Ordered Date First Orde red Date ADULT DISCHARGE DIET 1 06/20/2022 Nursing Count Last Ordered Date First Orde red Date CATHETER CARE 1 06/20/2022 DISCHARGE ACTIVITY 5 06/20/2022 DISCHARGE CALL PROVIDER 10 06/20/2022 DISCHARGE INSTRUCTIONS 2 06/20/2022 Discharge Count Last Ordered Date First Orde red Date DISCHARGE PATIENT 1 06/20/2022 documented in this encounter Care Teams Quality Control Representative Relationship Specialty Start Date End Date Laura Tapia NP PCP - General Family Medicine 09/30/19 10/01/22 Mariaelena Zaiid MD Consulting Physician Sleep Medicine 07/12/21 documented as of this encounter
--- OUTSIDE RECORDS SUMMARY | 2024-09-17 12:52 | XMS_ITS | Encounter Summary ---
Author Organization [facility] [employer] [facility] Address [address] [place] [address] Phone Care Team Providers Care Process Project Engineer Name Role Phone Laura Tapia NP Primary Care Provider [phone] Mariaelena Zaidi MD Unavailable Reason for Visit * Reason Comments Follow-up Encounter Details Date Type Department Care Team (Late st Contact Info) Description 06/28/2022 8:40 AM CDT Office Visit [facility]) - [facility] Urology [id number] [place] [phone] Microscopic hematuria (Primary Dx); Urinary frequency; Benign prostatic hyperplasia with weak urinary stream Social History Tobacco Use Types Packs/Day Years [...] on file 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 06/20/2022 Physician: Dr. Nina Date of procedure: 06/20/2022 Pt denies of fever and chills. Measurement of post-voiding residual urine and/or bladder capacity by ultrasound, non-imaging. PVR = 51 ml Dipstick was negative for nitrates. Pt understood lifting restrictions. Cautioned regarding signs and symptoms of UTI and instructed to call with any questions. Supervising provider present in the office at the time of the visit: JULIA Toth documented in this encounter Plan of Treatment Not on file documented as of this encounter Procedures Procedure Name Priority Date/Time Associated Diagnosis Comments POCT URINALYSIS DIPSTICK Routine 06/28/2022 9:02 AM CDT Microscopic hematuria MEASURE POST VOID RESIDUAL Routine 06/28/2022 Urinary frequency documented in this encounter Results * (ABNORMAL) POCT urinalysis dipstick (06/28/2022 9:02 AM CDT) Glucose, ur, POC Negative Negative MG/DL Ketones, ur, POC Negative Negative Blood, ur, POC 3+(A) Negative pH, ur, POC 6.0 5.0 - 8.0 Protein, ur, POC 2+(A) Negative Nitrite, ur, POC Negative Negative Leukocytes, ur, POC 2+(A) Negative Lot Number 0 Urine 06/28/2022 9:02 AM CDT Jozef Nina MD POINT OF CARE TEST ORDERABLES Final Result * Measure post void residual (06/28/2022) Narrative Matt Diaz EMT - 06/28/2022 Measurement of post-voiding residual urine and/or bladder capacity by ultrasound, non-imaging. ??PVR = 51 ml us Jozef Nina MD NURSING ASSESSMENTS Final Res ult documented in this encounter Visit Diagnoses Diagnosis Microscopic hematuria- Primary Urinary frequency Benign prostatic hyperplasia with weak urinary stream documented in this encounter Care Teams Process Project Engineer Relationship Specialty Start Date End Date Laura Tapia NP PCP - General Family Medicine 09/30/19 10/01/22 Mariaelena Zaidi MD Consulting Physician Sleep Medicine 07/12/21 documented as of this encounter
--- OUTSIDE RECORDS SUMMARY | 2024-09-17 12:52 | XMS_ITS | Encounter Summary ---
Author Organization [facility] Healthcare Address [address] [place] [address] Care Team Providers Care Interventional Neuroradiologist Name Role Phone Laura Tapia NP Primary Care Provider [phone] Mariaelena Zaidi MD Unavailable Reason for Referral * MRI/CAT/PET Scan (Routine) - Closed Specialty Diagnoses / Procedures Referred By Zaida camacho Referred To Contact Radiology Diagnoses Prostate nodule Procedures MRI Pelvis Prostate W WO Contrast Jozef Nina MD Phone: tel: fax: [place] [address] [address] Referral ID Status Reason Start Date Expiration Date Visits Re quested Visits Authorized [id number] Closed 04/12/2022 05/12/2023 1 1 Reason for Visit * MRI/CAT/PET Scan (Routine) - Closed Specialty Diagnoses / Procedures Referred By Conttom camacho Referred To Contact Radiology Diagnoses Prostate nodule Procedures MRI Pelvis Prostate W WO Contrast Jozef Nina MD Phone: tel: fax: [place] [address] [address] [phone] Referral ID Status Reason Start Date Expiration Date Visits Re quested Visits Authorized [id number] Closed 04/12/2022 05/12/2023 1 1 Encounter Details Date Type Department Care Team (Latest Contact Info) Description 05/09/2022 7:07 AM CDT Hospital Encounter [facility] [address] [address] Prostate nodule Discharge Disposition: Discharge to home or self [...] on file 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 Gender Identity Not on file Sexual Orientation [...] Name Priority Date/Time Associated Diagnosis Comments MRI PELVIS PROSTATE W WO CONTRAST Schedule Routine, Read Routine (OP Routine) 05/09/2022 9:02 AM CDT Prostate nodule documented in this encounter Results * MRI [...] MD IM MRI PROCEDURES Final Resu lt documented in this encounter Visit Diagnoses Diagnosis Prostate nodule Nodular prostate without urinary obstruction documented in this encounter Administered Medications Inactive Administered Medications - up to 3 most recent administrations Medication Order MAR Action Action Date Dose Rate Site gadoterate meglumine 0.5 mmol/mL injection 24.86 mL 24.86 mL (0.1 mmol/kg ? 124.3 kg), intravenous, Once in imaging, contrast, Starting on Sat05/09/22 at 0846, For 1 dose, Imaging Protocol Orders Contrast Given 05/09/2022 8:47 AM CDT 20 mL sodium chloride 0.9% flush 50 mL 50 mL, intravenous, As needed, line care, Starting on Sat05/09/22 at 0846 Given 05/09/2022 8:47 AM CDT 50 mL documented in this encounter Care Teams Interventional Neuroradiologist Relationship Specialty Start Date End Date Laura Tapia NP PCP - General Family Medicine 09/30/19 10/01/22 Mariaelena Zaidi MD Consulting Physician Sleep Medicine 07/12/21 documented as of this encounter
--- OUTSIDE RECORDS SUMMARY | 2024-09-17 12:52 | XMS_ITS | Encounter Summary ---
Author Organization [facility] Address [address] [place] [address] Care Team Providers Care Manager Sustainability Name Role Phone Regina Laura PHILLIPS Primary Care Provider [phone] Mariaelena Zaidi MD Unavailable Reason for Visit * Auth/Cert Specialty Diagnoses / Procedures Referred By Contac t Referred To Contact Diagnoses Benign prostatic hyperplasia with weak urinary stream Benign prostatic hyperplasia with weak urinary stream [N40.1, R39.12] Procedures AR LASER VAPORIZATION SURGERY PROSTATE, COMPLETE LASER ABLATION VAPORIZATION PROSTATE/ 90 min Referral ID Status Reason Start Date Expiration Date Visits Re quested Visits Authorized [id number] 1 1 Encounter Details Date Type Department Care Team (Late st Contact Info) Description 06/20/2022 7:30 AM CDT - 06/20/2022 9:00 AM CDT Surgery Operating Room [address] [place] [address] Jozef Nina MD [address] [place] [address] [address] GREEN LIGHT LASER VAPORIZATION OF PROSTATE Surgery Details Date/Time Status Location OR Service Patient Class Case Cl ass Case Type Trauma Case? 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 Gender Identity Not on file Sexual Orientation Not on file documented as of this encounter Last Filed Vital Signs Vital Sign Reading Time Taken Comments Blood Pressure 125/94 06/20/2022 6:17 AM CDT Pulse 69 06/20/2022 6:17 AM CDT Temperature 36.7 ??C (98 ??F) 06/20/2022 6:17 AM CDT Respiratory Rate 20 06/20/2022 6:17 AM CDT Oxygen Saturation 95% 06/20/2022 6:17 AM CDT Inhaled Oxygen Concentration - - Weight 124.7 kg (275 lb) 06/20/2022 6:17 AM CDT Height 188 cm (6' 2 ) 06/20/2022 6:17 AM CDT Body Mass Index 35.31 06/20/2022 6:17 AM CDT documented in this encounter Discharge Instructions * Discharge Instructions* Erin Ferguson, TERESO - 06/20/2022 9:19 AM CDT FOLLOW UP [...] Care Everywhere. * General Anesthesia (Discharge Care) ([place]) * Prostate Photovaporization (Discharge Care) ([place]) * Guevara Catheter Placement and Care (Discharge Care) ([place]) * Guevara Catheter Removal (Discharge Care) ([place]) documented in this encounter Medications at Time [...] 05/25/2020 Added automatically from request for surgery [id number] Sleep apnea Past Surgical History: Procedure Laterality [...] MD Faculty, Urology division, Department of surgery, [facility] ([facility]) [facility] Physician at [place] ([facility]) documented in this encounter Miscellaneous Notes [...] Cystoscopy, transurethral laser vaporization resection of prostate. (Fernando lightlaser) INDICATION FOR PROCEDURE: Jaden De La Torre is a 51 y.o. old male with a history of benign prostatic hyperplasia, bladder outlet obstruction, and lower urinary tract symptoms. We discussed relevant risks, benefits, and alternatives and the decision was made to proceed with cystoscopy and TURP. OPERATIVE FINDINGS: Trilobar occlusive prostate. COMPLICATIONS: None. DRAINS: 22-Qatari 3-way Guevara catheter. PROCEDURE IN DETAIL: After [...] This revealed no mucosal lesions. The 26 Qatari continuous flow resectoscope sheath was inserted using an boom operator and the GreenLight laser fiber was [...] The scope was removed and a 20 Qatari Guevara catheter was inserted. The patient was [...] that you and your doctor have chosen [facility] for your surgery. We hope that the following information will help make your visit a pleasant one. Surgery Date: 06/20/2022 and arrive at 5:30 AM [facility] (look for sign reading ???[facility]?? ) [address] [place] [address] Before your surgery: Notify your doctor of [...] Surgery. Covid testing can be done at [facility] [address] [place] [id number] Hours are: Saturday through Saturday 7 [...] soap (Example: Dove Antibacterial soap, Gold Dial, Leah Spring, Zest, Safeguard, Coast) wash your body [...] insurance cards, and medication list (including all [id number]-rkfmomm medications) with you. Prescriptions can be filled [...] prostatic hyperplasia with weak urinary stream- Primary Benign prostatic hyperplasia with weak urinary stream documented in this encounter Admitting Diagnoses Diagnosis Benign prostatic hyperplasia with weak urinary stream documented in this encounter Administered Medications Inactive Administered Medications - up to 3 most recent administrations Medication Order MAR Action Action Date Dose Rate Site acetaminophen (TYLENOL) 500 mg tablet - ADS Override Pull Starting on Sat06/20/22 at 0552, For 1 dose, Created by christiane override acetaminophen (TYLENOL) tablet 1,000 mg 1,000 mg, oral, Once, On Sat06/20/22 at 0630, For 1 dose, Pre-Op, Indications: Pre-Emptive AnalgesiaIndications:Pre-E mptive Analgesia Given 06/20/2022 6:07 AM CDT 1,000 mg belladonna alkaloids-opium (B&O SUPPRETTES) 16.2-30 mg suppository 30 mg 30 mg, rectal, Once, On Sat06/20/22 at 0915, For 1 dose, Intra-Op, Indications: Spasm of BladderIndications:Spasm of Bladder Given 06/20/2022 9:01 AM CDT 30 mg celecoxib (CeleBREX) 200 mg capsule - ADS Override Pull Starting on Sat06/20/22 at 0553, For 1 dose, Created by christiane robles celecoxib (CeleBREX) capsule 200 mg 200 mg, oral, Once, On Sat06/20/22 at 0630, For 1 dose, Pre-Op, Indications: Pre-Emptive PainIndications:Pre-Emptiv e Pain Given 06/20/2022 6:07 AM CDT 200 mg fentaNYL (SUBLIMAZE) 50 mcg/mL preservative free injection - ADS Override Pull Starting on Sat06/20/22 at 0928, For 1 dose, Created by christiane robles fentaNYL (SUBLIMAZE) preservative free injection 50 mcg 50 mcg, intravenous, Once as needed, uncontrolled pain on PACU admission, Starting on Sat06/20/22 at 0912, For 1 dose, Phase I, Then proceed to PACU 1st line analgesic., Indications: PainIndications:Pain Given 06/20/2022 9:30 AM CDT 50 mcg Lactated Ringer's (LR) infusion - ADS Override Pull Starting on Sat06/20/22 at 0553, For 1 dose, Created by christiane robles Lactated Ringer's (LR) infusion 30 mL/hr, intravenous, [...] Given 06/20/2022 6:48 AM CDT 25 mg sodium chloride 0.9% irrigation As needed, Starting on Sat06/20/22 at 0829, Intra-Op Given 06/20/2022 8:29 AM CDT 12,000 mL Surgical Site documented in this encounter Discontinued Medications [...] For 1 dose, Pre-Op, Indications: Pre-Emptive Analgesia 0607 (Given - Provid er: Taylor Carreon RN) belladonna alkaloids-opium (B&O SUPPRETTES) 16.2-30 mg suppository 30 mg (COMPLETED) 30 mg, rectal, Once, On Sat06/20/22 at 0915, For 1 dose, Intra-Op, Indications: Spasm of Bladder 0901 (Given - Provid er: Jozef Nina MD)0915 [...] chloride 0.9% flush 0.5-20 mL 1 06/09 Diet Count Last Ordered Date First Orde red Date ADULT DISCHARGE DIET 1 06/20/2022 Nursing Count Last Ordered Date First Orde red Date CATHETER CARE 1 06/20/2022 DISCHARGE ACTIVITY 5 06/20/2022 DISCHARGE CALL PROVIDER 10 06/20/2022 DISCHARGE INSTRUCTIONS 2 06/20/2022 Discharge Count Last Ordered Date First Orde red Date DISCHARGE PATIENT 1 06/20/2022 documented in this encounter Care Teams Manager Sustainability Relationship Specialty Start Date End Date Laura Tapia NP PCP - General Family Medicine 09/30/19 10/01/22 Mariaelena Zaidi MD Consulting Physician Sleep Medicine 07/12/21 documented as of this encounter
--- OUTSIDE RECORDS SUMMARY | 2024-09-17 12:52 | XMS_ITS | Encounter Summary ---
Author Organization [facility] Address [address] [place] [address] Care Team Providers Care Brick Kiln Worker Name Role Phone Laura Tapia NP Primary Care Provider [phone] Mariaelena Zaidi MD Unavailable Encounter Details Date Type Department Care Team (Late st Contact Info) Description 04/13/2022 Telephone [facility] Primary Care at [address] [place] [address] Laura Tapia NP [address] [place] [address] Social History Tobacco Use Types Packs/Day Years [...] on file 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 Gender Identity Not on file Sexual Orientation Not on file documented as of this encounter Miscellaneous Notes * Telephone Encounter - Alida Doran - 04/13/2022 11:46 AM CDT Appointment Cancellation Appt date/time: Reason for appt: Reason for cxl: NOV: FREDERIC: # of cxl or no shows in last year: Controlled Rx: documented in this encounter Plan of Treatment Not on file documented as of this encounter Visit Diagnoses Not on filedocumented in this encounter Care Teams Brick Kiln Worker Relationship Specialty Start Date End Date Laura Tapia NP PCP - General Family Medicine 09/30/19 10/01/22 Mariaelena Zaidi MD Consulting Physician Sleep Medicine 07/12/21 documented as of this encounter
--- OUTSIDE RECORDS SUMMARY | 2024-09-17 12:52 | XMS_ITS | Encounter Summary ---
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 * Telephone Encounter - Taryn Gipson PA - 05/11/2022 3:00 PM CDT Reviewed results with the patient. * Telephone Encounter - Valeria Coronado RMA - 05/11/2022 1:46 PM CDT Jim Centeno, I was wondering if you could call this patient with these results. is out of town, andth[place]land castro is very anxious to get his results. He stated that he cannot go all weekend not knowing the results. I really appreciate it!! Valeria Nassar * Telephone Encounter - Marina Miguel RMA - 05/11/2022 10:41 AM CDT Pt calling for CT and MRI results. documented in this encounter Plan of Treatment Not on file documented as of this encounter Visit Diagnoses Not on filedocumented in this encounter Care Teams Supervisor Brooder Farm Relationship Specialty Start Date End Date Laura Tapia NP PCP - General Family Medicine 09/30/19 10/01/22 Mariaelena Zaidi MD Consulting Physician Sleep Medicine 07/12/21 documented as of this encounter
--- OUTSIDE RECORDS SUMMARY | 2024-09-17 12:52 | XMS_ITS | Encounter Summary ---
Author Organization [facility] Address [address] [place] [address] Phone Care Team Providers Care Ship Worker Name Role Phone Laura Tapia NP Primary Care Provider [phone] Mariaelena Zaidi MD Unavailable Encounter Details Date Type Department Care Team (Late st Contact Info) Description 07/16/2022 Documentation [facility]) - [facility] Urology [id number] [place] [address] [address] [address] Valeria Coronado RMA Social History Tobacco Use Types Packs/Day [...] on file 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 He is out of town deer hunting, and just started dribbling. He went to the [facility] and they placed a catheter. Advised patient to increase his fluid intake, and an appointment was made with for catheter removal. TENDER documented in this encounter Plan of Treatment Not on file documented as of this encounter Visit Diagnoses Not on filedocumented in this encounter Care Teams Ship Worker Relationship Specialty Start Date End Date Laura Tapia NP PCP - General Family Medicine 09/30/19 10/01/22 Mariaelena Zaidi MD Consulting Physician Sleep Medicine 07/12/21 documented as of this encounter
--- OUTSIDE RECORDS SUMMARY | 2024-09-17 12:52 | XMS_ITS | Encounter Summary ---
Author Organization [facility] Address [address] [place] [address] Phone Care Team Providers Care Regulatory Affairs Spec Name Role Phone Laura Tapia NP Primary Care Provider [phone] Mariaelena Zaidi MD Unavailable Reason for Visit * Reason Comments Post-op * Consultation (Routine) - Closed Specialty Diagnoses / Procedures Referred By Zaida camacho Referred To Contact Urology Diagnoses Urinary frequency Incomplete emptying of bladder Microscopic hematuria Laura Tapia NP Phone: tel: fax: Chantal Carvajal NP Phone: tel: fax: Referral ID Status Reason Start Date Expiration Date V isits Requested Visits Authorized [id number] Closed Specialty Services Required 04/04/2022 05/04/2023 99 99 Encounter Details Date Type Department Care Team (Late st Contact Info) Description 07/23/2022 1:20 PM ELECTROENCEPHALOGRAPHIC TECHNICIAN Office Visit [facility]) - [facility] Urology 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 male with history of BPH status post GreenLight laser vaporization of prostate 1 month back. He went for a hunting trip and had a urinary retention requiring a Guevara catheter. Guevara catheter was removed today. Office cystoscopy: The flexible cystoscope was introduced into the urethra and advanced into the bladder. URETHRA: normal PROSTATE: Wide open bladder neck and brought prostatic fossa without obstructing tissue TRIGONE & UOs: normal BLADDER MUCOSA: No mucosal lesions RETROFLEX: normal - Cystoscopic finding were discussed and informed no evidence of obstruction. - he voided well after the cystoscopy Past Medical History: Diagnosis Date Anxiety disorder Anxiety Depression Depression Enlarged prostate Erectile dysfunction Generalized abdominal pain 06/27/2019 GERD (gastroesophageal reflux disease) Hemorrhoids Hyperlipidemia Hypertension Hypoglycemia Palpitation Rectal pain 05/25/2020 Added automatically from request for surgery [id number] Sleep apnea Urinary retention Past Surgical History: [...] except HPI are negative Objective: Vitals: Temp 36.8 ??C (98.2 ??F) Lab/Radiology/Diagnostic Review: Reviewed. Plan: - stop tamsulosin and oxybutynin - follow-up in 1 month Jozef Nina MD Faculty, Urology division, Department of surgery, [facility] ([facility]) [facility] Physician at [place] ([facility]) TROENCEPHALOGRAPHIC TECHNICIAN documented in this encounter Plan of Treatment Not on file documented as of this encounter Visit Diagnoses Diagnosis Retention of urine- Primary Unspecified retention of urine documented in this encounter Discontinued Medications Medication Sig Discontinue Reason Start Date End Da te tamsulosin (FLOMAX) 0.4 mg extended release capsuleIndications:Reten tion of urine Take 1 capsule (0.4 mg total) by mouth nightly for 7 days Therapy completed 07/17/2022 07/23/2022 oxybutynin XL (DITROPAN-XL) 5 mg 24 hr tablet Take 1 tablet (5 mg total) by mouth daily Therapy completed 07/20/2022 07/23/2022 documented as of this encounter Historical Medications * This list may reflect changes made after this encounter. oxybutynin XL (DITROPAN-XL) 5 mg 24 hr tablet Take 1 tablet (5 mg total) by mouth daily 07/20/2022 07/23/2022 cefdinir (OMNICEF) 300 mg capsule Take 1 capsule (300 mg total) by mouth 2 (two) times a day 07/16/2022 08/22/2022 added in this encounter Care Teams Regulatory Affairs Spec Relationship Specialty Start Date End Date Laura Tapia NP PCP - General Family Medicine 09/30/19 10/01/22 Mariaelena Zaidi MD Consulting Physician Sleep Medicine 07/12/21 documented as of this encounter
--- OUTSIDE RECORDS SUMMARY | 2024-09-17 12:52 | XMS_ITS | Encounter Summary ---
Author Organization [facility] Healthcare Address [address] [place] [address] Care Team Providers Care Wood Boring Machine Operator Name Role Phone Laura Tapia NP Primary Care Provider [phone] Mariaelena Zaidi MD Unavailable Reason for Visit * Auth/Cert Specialty Diagnoses / Procedures Referred By Contac t Referred To Contact Diagnoses Benign prostatic hyperplasia with weak urinary stream Benign prostatic hyperplasia with weak urinary stream [N40.1, R39.12] Procedures [place] LASER VAPORIZATION SURGERY PROSTATE, COMPLETE LASER ABLATION VAPORIZATION PROSTATE/ 90 min Referral ID Status Reason Start Date Expiration Date Visits Re quested Visits Authorized [id number] 1 1 Encounter Details Date Type Department Care Team (Late st Contact Info) Description 06/20/2022 7:53 AM CDT Anesthesia Event [facility] Operating Room [address] [place] [address] [place] [address] [facility] [place] [address] Wade Day MD [address] [facility] [address] [id number] [place], [place] [id number] Anesthesia Record Procedure Summary Procedure Name Responsible Anesthesiologist Anesthesia Start Time Anesthesia Stop Time GREEN LIGHT LASER VAPORIZATION OF PROSTATE (Urethra) Tacho Begum MD 06/20/22 0753 06/20/22 0905 Events Date Time Event Comment 06/20/2022 0708 0753 An Start 0753 An Start Data 0753 In Room 0757 An Induction The patient was reevaluated immediately before moderate or deep sedation use and before anesthesia induction. 0800 An Intubation 0809 Proc Start 0834 Anesthesia Ready 0902 Proc Fin 0903 An Extubation 09 An Stop 09 Handoff to RN I completed my handoff [...] the time of handoff: No value filed. 905 Out of Room 918 an stop data Meds Name Total midazolam 2 mg fentaNYL 100 mcg propofol 200 mg ceFAZolin (ANCEF) 1 gram/10 mL in steril e water (premix) 3,000 mg 3,000 mg Lactated Ringer's (LR) infusion 900 mL * Agents Name O2 N2O Air Sevoflurane Inspired Sevoflurane * Blood No blood administrations on file. Lines, Drains, and Airways Type Details Placement Removal RETIRED Surgical Site 02/06/19; 1307; Le ft; Flank; S/P LEFT RETRO-PERITONEAL BIOPSY; 08/11/24 (Retired LDA, Removed/Completed by [employer] with LDA Utility); 1213 (Retired LDA, Removed/Completed by [employer] with LDA Utility) 02/06/19 1307 by Ye Workman RN 08/11/24 1213 by Discharge Provider, Automatic Peripheral IV Placement Date: 06/20/22; Placement Time: 0637; Catheter Size: 20 G; Orientation: Left, Posterior; Location: Hand; Site Prep: Chlorhexidine; Technique: Anatomical landmarks; Inserted by: taylor carreon; Insertion Attempts: 1; Patient Tolerance: Tolerated well; Removal Date: 06/20/22; Removal Time: 1130; Removal Reason: Discharge 06/20/22 0637 by Taylor Carreon RN 06/20/22 1130 by Erin Ferguson, TERESO Urethral Catheter Placement Date: 06/20/22; Placement Time: 0846; Inserted by: Dr Nina; Type: Triple-lumen, Latex, Straight-tip; Balloon Size: Other (Comment) (15 mls in balloon); Urine Returned: Yes; Removal Date: 10/07/23; Removal Time: 1906; Removal Reason: Removal date unknown/not present on admission 06/20/22 0846 by Nguyen Coronado RN 10/07/23 1906 by Eva Barboza RN documented in this encounter Social History Tobacco [...] on file 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 Gender Identity Not on file Sexual Orientation Not on file documented as of this encounter OR Notes * Anesthesia Postprocedure Evaluation - Tacho Begum MD - 06/20/2022 10:19 AM CDT Patient: Jaden De La Torre Procedure Summary Date: 06/20/22 Room / Location: OPERATING ROOM 5 / OPERATING ROOM Anesthesia Start: 3 Anesthesia Stop: 904 Procedure: GREEN LIGHT LASER VAPORIZATION OF PROSTATE (Urethra) Diagnosis: Benign prostatic hyperplasia with weak urinary stream (Benign prostatic hyperplasia with weak urinary stream [N40.1, R39.12]) Providers: Jozef Nina MD Responsible Provider: Tacho Begum MD Anesthesia Type: general ASA Status: 3 Anesthesia Type: general Last vitals BP 132/85 Pulse 59 Temp 36.4 ??C (97.6 ??F) (Temporal) Resp 20 SpO2 97% Anesthesia Post Evaluation Patient location during evaluation: PACU Patient participation: complete - patient participated Level of consciousness: fully awake Pain management: adequate Airway patency: adequate Evidence of recall: no Cardiovascular status: acceptable Respiratory status: acceptable Hydration status: acceptable Pt is: normothermic Nausea/Vomiting status: none No notable events documented. * Anesthesia Procedure Notes - Campos Harris CRNA - 06/20/2022 8:34 AM CDTAssociated Order(s): Airway Airway Indications for airway management: anesthesia Difficult airway: no Staff: Placed by: CONSTRUCTION ACCOUNTANT: Campos Harris CRNA Emergent airway documentation: Risks and benefits discussed: yes Consent obtained: yes Consent given by: patient Airway prep: Preoxygenated: yes Patient position: sniffing MILS maintained throughout: yes Mask difficulty assessment: 1 - vent by mask Spontaneous ventilation during airway: present Sedation level during airway: GA Final airway details: Final airway type: supraglottic airway Final supraglottic airway: classic SGA size: 4 Airway seal pressure: 15 cm H2O Number of attempts: 1 Planned trial extubation: yes * Anesthesia Preprocedure Evaluation - Tacho Begum MD - 06/18/2022 6:19 PM CDT Images from the original note were not included. Anesthesia Evaluation Jaden De La Torre is a 51 y.o. male Procedure(s): LASER ABLATION VAPORIZATION PROSTATE/ 90 min Pre-Op Diagnosis Codes: * Benign prostatic hyperplasia with weak urinary stream [N40.1, R39.12] HISTORY Past Medical History Information obtained from: patient and chart. Neurological + Psychiatric history - anxiety and depression Cardiovascular + Hypertension + Hyperlipidemia Respiratory + Sleep apnea (TAJ) Pertinent negatives: non-smoker Hepatic / Heme Hepatic/Heme system: negative Gastrointestinal + GERD Renal / Renal/ system: negative Musculoskeletal/Pain Musculoskeletal/Pain system: negative Endocrine / Other + Obesity (BMI >30) Patient Active Problem List Diagnosis ??? Restless legs syndrome ??? Obstructive sleep apnea syndrome ??? Insomnia ??? Hyperlipidemia ??? Essential hypertension ??? Laryngopharyngeal reflux (LPR) ??? Anger reaction ??? Benign ganglioneuroma of abdomen ??? Spondylosis of lumbar region without myelopathy or radiculopathy ??? Class 2 obesity due to excess calories without serious comorbidity with body mass index (BMI) of 36.0 to 36.9 in adult ??? Situational anxiety ??? Post-COVID chronic cough ??? Vitamin D deficiency ??? Benign prostatic hyperplasia with weak urinary stream Past Medical History: Diagnosis Date ??? Anxiety disorder Anxiety ??? Depression Depression ??? Enlarged prostate ??? Erectile dysfunction ??? Generalized abdominal pain 06/27/2019 ??? GERD (gastroesophageal reflux disease) ??? Hemorrhoids ??? Hyperlipidemia ??? Hypertension ??? Hypoglycemia ??? Palpitation ??? Rectal pain 05/25/2020 Added automatically from request for surgery [id number] ??? Sleep apnea ??? Urinary retention Past Surgical History: Procedure Laterality Date ??? BAND HEMORRHOIDECTOMY ??? BIOPSY ABDOMEN RETROPERITONEAL N/A 02/06/2019 ??? CARPAL TUNNEL RELEASE Bilateral ??? COLONOSCOPY 08/26/2020 1st ??? KNEE ARTHROSCOPY Right 02/2006 rt ac resection ??? SHOULDER SURGERY Right No Known Allergies Taking? Last Dose Start Date End Date Provider buPROPion XL (WELLBUTRIN XL) 300 mg 24 hr tablet -- 09/04/21 -- Laura Tapia NP Take 1 tablet (300 mg total) by mouth every morning Patient taking differently: Take 300 mg by mouth nightly lisinopriL (PRINIVIL,ZESTRIL) 5 mg tablet -- 02/08/22 -- Laura Tapia NP TAKE 1 TABLET DAILY Patient taking differently: Take 5 mg by mouth nightly Notes: YOUR PATIENT HAS REQUESTED A REFILL OF THIS MEDICATION, PREVIOUSLY AUTHORIZED BY ANOTHER PRESCRIBER. meloxicam (MOBIC) 15 mg tablet -- 06/28/21 06/28/22 Clem Bedoya MD Take 1 tablet (15 mg total) by mouth daily Patient taking differently: Take 15 mg by mouth nightly metoprolol XL (TOPROL-XL) 25 mg extended release tablet -- 02/08/22 -- Laura Tapia NP TAKE 1 TABLET DAILY Patient taking differently: Take 25 mg by mouth nightly Notes: YOUR PATIENT HAS REQUESTED A REFILL OF THIS MEDICATION, PREVIOUSLY AUTHORIZED BY ANOTHER PRESCRIBER. pramipexole (MIRAPEX) 1.5 mg tablet -- 03/29/20 -- Jada Phillips NP Take 1 tablet (1.5 mg total) by mouth 3 (three) times a day pravastatin (PRAVACHOL) 40 mg tablet -- 08/07/21 -- Vandermolen, Laura Lucia, CIVIL ENGINEERING PROJECT DESIGNER TAKE 1 TABLET DAILY Patient taking differently: Take 40 mg by mouth nightly tamsulosin (FLOMAX) 0.4 mg extended release capsule -- 02/20/22 -- Laura Tapia NP Take 1 capsule (0.4 mg total) by mouth daily Patient taking differently: Take 0.4 mg by mouth nightly No current facility-administered medications for this encounter. Current Outpatient Medications: ??? buPROPion XL (WELLBUTRIN XL) 300 mg 24 hr tablet ??? lisinopriL (PRINIVIL,ZESTRIL) 5 mg tablet ??? meloxicam (MOBIC) 15 mg tablet ??? metoprolol XL (TOPROL-XL) 25 mg extended release tablet ??? pramipexole (MIRAPEX) 1.5 mg tablet ??? pravastatin (PRAVACHOL) 40 mg tablet ??? tamsulosin (FLOMAX) 0.4 mg extended release capsule Social History Tobacco Use Smoking Status Never Smokeless Tobacco Former ??? Types: Chew ??? Quit date: 08/2018 Tobacco Comments chews, not interested in counseling Alcohol Use: Not on file Substance and Sexual Activity Drug Use Yes ??? Types: Alcohol Comment: 18 pack beer once weekly Family History Problem Relation Age of Onset ??? Cancer Mother lung ??? Hypertension Mother ??? Leukemia Mother ??? Cancer Father lung ??? Throat cancer Father There were no vitals filed for this visit. PT: No results found for requested labs within last 720 hours. INR: No results found for requested labs within last 720 hours. APTT: No results found for requested labs within last 720 hours. Hgb A1C: No results found for requested labs within last 720 hours. CBC RBC: No results found for requested labs within last 720 hours. RDW: No results found for requested labs within last 720 hours. MCHC: No results found for requested labs within last 720 hours. MCH: No results found for requested labs within last 720 hours. MCV: No results found for requested labs within last 720 hours. Hct: No results found for requested labs within last 720 hours. Hgb: No results found for requested labs within last 720 hours. WBC: No results found for requested labs within last 720 hours. MPV: No results found for requested labs within last 720 hours. Platelets: No results found for requested labs within last 720 hours. RDW CV: No results found for requested labs within last 720 hours. RDW Sd: No results found for requested labs within last 720 hours. BMP Glucose: No results found for requested labs within last 720 hours. Calcium: No results found for requested labs within last 720 hours. Sodium: No results found for requested labs within last 720 hours. Potassium: No results found for requested labs within last 720 hours. CO2: No results found for requested labs within last 720 hours. Chloride: No results found for requested labs within last 720 hours. BUN: No results found for requested labs within last 720 hours. Creatinine: No results found for requested labs within last 720 hours. DOS Physical Exam Medical history, medications, and allergies reviewed. Attestation: With today's edits, I endorse the findings of the anesthesia pre-evaluation assessment dated: 06/20/2022. Airway Exam: Mallampati: III Cervical ROM: FROM TM distance: 3.5 Patient presents with thick neck, nieves and mustache. Cardiovascular Exam: Rate: regular Rhythm: regular Pulmonary Exam: LCTA, bilat EENT Exam: trachea midline Dental Exam: Appears intact Skin Exam: Skin is warm. Turgor is normal. Current state: Patient's current state is cooperative and interactive. Anesthesia Plan ASA 3 My patient is approved for the Anesthesia Controlled Medication protocol when under care of a CONSTRUCTION ACCOUNTANT Planned anesthesia: General Team communication plan: LMA and oral ET tube Induction: Induction: intravenous. Postoperative Plan: Postoperative administration opioids intended. No postoperative mechanical ventilation intended. Patient's planned disposition post procedure is Outpatient. No trial extubation planned. Informed Consent: Discussed plan with CONSTRUCTION ACCOUNTANT and AA. Anesthesia plan and risks discussed with patient and spouse. Consent and Attending signature: I and/or my [...] Procedure Name Priority Date/Time Associated Diagnosis Comments ANESTHESIA INTUBATION Routine 06/20/2022 8:34 AM CDT documented in this encounter Results * Airway (06/20/2022 8:34 AM CDT) Narrative Campos Harris CRNA - 06/20/2022 8:34 AM CDT Campos Harris CRNA ? 06/20/2022 ??8:36 AM Airway Indications for airway management: anesthesia Difficult airway: no Staff: Placed by: CONSTRUCTION ACCOUNTANT: Campos Harris CRNA Emergent airway documentation: Risks and benefits discussed: yes Consent obtained: yes Consent given by: patient Airway prep: Preoxygenated: yes Patient position: sniffing MILS maintained throughout: yes Mask difficulty assessment: 1 - vent by mask Spontaneous ventilation during airway: present Sedation level during airway: GA Final airway details: Final airway type: supraglottic airway Final supraglottic airway: classic SGA size: 4 Airway seal pressure: 15 cm H2O Number of attempts: 1 Planned trial extubation: yes us Tacho Begum MD ANESTHESIA ORDERABLES Final R esult documented in this encounter Visit Diagnoses Not [...] within 60 minutes of incision., Indications: Prophylaxis, SurgicalIndications:Prophy laxis, Surgical Given 06/20/2022 7:53 AM CDT 3,000 mg fentaNYL (SUBLIMAZE) preservative free injection intravenous, As needed, Starting on Sat06/20/22 at 0801, Anesthesia Intra-op Given 06/20/2022 7:55 AM CDT 100 mcg Lactated Ringer's (LR) infusion 30 mL/hr, intravenous, Continuous, Starting on Sat06/20/22 at 0630, Pre-Op Rate/Dose Verify 06/20/2022 7:53 AM CDT 30 mL/hr New Bag 06/20/2022 6:08 AM CDT 30 mL/hr 30 mL/hr midazolam (VERSED) 1 mg/mL preservative free injection intravenous, Administer over 2 Minutes, As needed, Starting on Sat06/20/22 at 0753, Anesthesia Intra-op Given 06/20/2022 7:57 AM CDT 2 mg propofoL (DIPRIVAN) 10 mg/mL IV intravenous, As needed, Starting on Sat06/20/22 at 0755, Anesthesia Intra-op Given 06/20/2022 7:55 AM CDT 200 mg documented in this encounter Care Teams Wood Boring Machine Operator Relationship Specialty Start Date End Date Laura Tapia NP PCP - General Family Medicine 09/30/19 10/01/22 Mariaelena Zaidi MD Consulting Physician Sleep Medicine 07/12/21 documented as of this encounter
--- OUTSIDE RECORDS SUMMARY | 2024-09-17 12:52 | XMS_ITS | Encounter Summary ---
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 Gender Identity Not on file Sexual Orientation Not on file documented as of this encounter Plan of Treatment Not on file documented as of this encounter Procedures Procedure Name Priority Date/Time Associated Diagnosis Comments URINE CULTURE Routine 07/04/2022 9:32 AM CDT Acute cystitis without hematuria documented in this encounter Results * Urine culture Urine, clean voided (07/04/2022 9:32 AM CDT) Report Final Report: Less than 100,000 colonies/mL (clinically insignificant growth based on current clinical standards) BERKLEY DALTON) Comment:Testing performed by : [facility], [address] [facility] [place] [address] Organism (CLINICALLY INSIGNIFICANT GROWTH BERKLEY HOPKINS (SHAHEED) Urine, clean voided 07/04/2022 9:32 AM CDT 07/04/2022 4:37 PM CDT Narrative BERKLEY DALTON) - 07/05/2022 6:13 PM CDT Testing performed by [facility] Microbiology Laboratory ([phone]) us Jozef Nina MD LAB MICROBIOLOGY - GENERAL OR DERABLES Final Result [facility]ERKLEY DALTON) [address] [facility] Department [place] [address] documented in this encounter Visit Diagnoses Diagnosis Acute cystitis without hematuria documented in this encounter Care Teams Refrigeration Engineer Relationship Specialty Start Date End Date Laura Tapia NP PCP - General Family Medicine 09/30/19 10/01/22 Mariaelena Zaidi MD Consulting Physician Sleep Medicine 07/12/21 documented as of this encounter
--- OUTSIDE RECORDS SUMMARY | 2024-09-17 12:53 | XMS_ITS | Encounter Summary ---
Author Organization [facility] Address [address] [place] [address] Care Team Providers Care Rubber Process Hand Name Role Phone Laura Tapia NP Primary Care Provider [phone] Mariaelena Zaidi MD Unavailable Reason for Referral * Diagnostic Imaging (Routine) - Canceled Specialty Diagnoses / Procedures Referred By Conttom t Referred To Contact Diagnoses Frequency of urination Incomplete emptying of bladder Other microscopic hematuria Procedures CT Abdomen Pelvis WO Contrast Laura Tapia NP Phone: tel: fax: [address] [address] Referral ID Status Reason Start Date Expiration Date V isits Requested Visits Authorized [id number] Canceled 04/03/2022 05/03/2023 1 1 Encounter Details Date Type Department Care Team (Late st Contact Info) Description 04/03/2022 Orders Only [facility] Primary Care at [address] [place] [phone] Laura Tapia NP [address] [place] [id number] Frequency of urination (Primary Dx); Incomplete emptying of bladder; Other microscopic hematuria Social History Tobacco Use Types Packs/Day [...] on file 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 Gender Identity Not on file Sexual Orientation Not on file documented as of this encounter Plan of Treatment Scheduled Orders Name Type Priority Associated Diagnoses Orde r Schedule CT Abdomen Pelvis WO Contrast Imaging Schedule Routine, Read Routine (OP Routine) Frequency of urination Incomplete emptying of bladder Other microscopic hematuria Expected: 04/03/2022, Expires: 04/03/2023 documented as of this encounter Visit Diagnoses Diagnosis Frequency of urination- Primary Urinary frequency Incomplete emptying of bladder Incomplete bladder emptying Other microscopic hematuria documented in this encounter Care Teams Rubber Process Hand Relationship Specialty Start Date End Date Laura Tapia NP PCP - General Family Medicine 09/30/19 10/01/22 Mariaelena Zaidi MD Consulting Physician Sleep Medicine 07/12/21 documented as of this encounter
--- OUTSIDE RECORDS SUMMARY | 2024-09-17 12:53 | XMS_ITS | Encounter Summary ---
Author Organization [facility] Address [address] [place] [address] Care Team Providers Care Twister Tender Paper Name Role Phone Laura Tapia NP Primary Care Provider [phone] Mariaelena Zaidi MD Unavailable Encounter Details Date Type Department Care Team (Late st Contact Info) Description 12/18/2021 Orders Only [facility] [address] [place] [address] Laura Tapia NP [address] [place] [address] Shakiness (Primary Dx) Social History Tobacco Use Types [...] points, staff should administer the PHQ-9) 0 10/18/2021 Sex and Gender Information Value Date Recorded Sex Assigned at Not on file 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 Placed referral to Dr Ward @ [facility]. Sent Information Referral info through my chart. documented in this encounter Plan of Treatment Not on file documented as of this encounter Visit Diagnoses Diagnosis Shakiness- Primary Abnormal involuntary movements documented in this encounter Care Teams Twister Tender Paper Relationship Specialty Start Date End Date Laura Tapia NP PCP - General Family Medicine 09/30/19 10/01/22 Mairaelena Zaidi MD Consulting Physician Sleep Medicine 07/12/21 documented as of this encounter
--- OUTSIDE RECORDS SUMMARY | 2024-09-17 12:53 | XMS_ITS | Encounter Summary ---
Author Organization [facility] Address [address] [place] [address] Care Team Providers Care Precision Lathe Operator Name Role Phone Laura Tapia NP Primary Care Provider [phone] Mariaelena Zaidi MD Unavailable Reason for Visit * Reason Comments Urinary Symptom Encounter Details Date Type Department Care Team (Late st Contact Info) Description 02/20/2022 3:45 PM CDT Office Visit [facility] [address] [place] [phone] Laura Tapia NP [facility] [place] [address] Urinary retention with incomplete bladder emptying (Primary Dx); Class 2 obesity due to excess calories without serious comorbidity with body mass index (BMI) of 36.0 to 36.9 in adult Social History Tobacco Use Types Packs/Day Years [...] points, staff should administer the PHQ-9) 0 02/20/2022 Sex and Gender Information Value Date Recorded Sex Assigned at Not on file 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 Gender Identity Not on file Sexual Orientation Not on file documented as of this encounter Last Filed Vital Signs Vital Sign Reading Time Taken Comments Blood Pressure 130/80 02/20/2022 3:49 PM CDT Pulse 75 02/20/2022 3:49 PM CDT Temperature - - Respiratory Rate 12 02/20/2022 3:49 PM CDT Oxygen Saturation 96% 02/20/2022 3:49 PM CDT Inhaled Oxygen Concentration - - Weight 127.7 kg (281 lb 9.6 oz) 02/20/2022 3:49 PM CDT Height 188 cm (6' 2.02 ) 02/20/2022 3:49 PM CDT Body Mass Index 36.14 02/20/2022 3:49 PM CDT documented in this encounter Ordered Prescriptions Prescription Sig Dispense Quantity Refills Last Filled Start Date End Date tamsulosin (FLOMAX) 0.4 mg extended release capsule Take 1 capsule (0.4 mg total) by mouth daily 90 capsule 4 02/20/2022 2 documented in this encounter Progress Notes * Laura Tapia, ALAN - 02/20/2022 3:45 PM CDT Images from the original note were not included. Subjective/Objective Patient ID: Jaden De La Torre is a 51 y.o. male. Assessment/Plan There are no diagnoses linked to this encounter. Personally reviewed PSA done 12/13/2021 was 3.65 normal but increasing over the last 2 yrs. Thanks for coming in today. My biomedical engineering technician, Cortney, and I are thankful you have trusted us with your care, and hope that you received EXCELLENT care today! Please do not hesitate to call if you have any questions or concerns at [phone]. You may receive a phone call or text asking about your care today. We would love to hear your input and again, hope your visit was as EXCELLENT as possible, even if you were not feeling your best! Follow up 6 Weeks Chief Complaint Urinary Symptom Symptoms for about a month. Feels like he is done urinating and then he has to go back in or he is dribbling in his underwear. Pt has had kidney stones before-he took some root stuff to dissolve them. No blood No pain with urination Pt having ED issues. Difficulty Urinating This is a new problem. Episode onset: 1 mo ago. The problem occurs every urination (the majority ofthe time). The problem has been unchanged. The pain is at a severity of 0/10. The patient is experiencing no pain. There has been no fever. He is sexually active. There is no history of pyelonephritis. Associated symptoms include flank pain (sharp pain every now and then ) and hesitancy. Pertinent negatives include no chills, discharge, frequency, hematuria, nausea or urgency. Associated symptomscomments: Incomplete emptying. He has tried increased fluids for the symptoms. Review of Systems Constitutional: Negative for chills. Respiratory: Negative for shortness of breath. Cardiovascular: Negative for chest pain. Gastrointestinal: Negative for nausea. Genitourinary: Positive for dysuria, flank pain (sharp pain every now and then ) and hesitancy. Negative for frequency, hematuria and urgency. Psychiatric/Behavioral: Negative for suicidal ideas. BP 130/80 (BP Location: Left arm, Patient Position: Sitting) Pulse 75 Resp 12 Ht 188 cm (6' 2.02 ) Wt 127.7 kg (281 lb 9.6 oz) SpO2 96% BMI 36.14 kg/m?? Physical Exam Laura Tapia NP Please note: Voice recognition software [employer] Direct was used to dictate and transcribe this document. Aircraft Dispatcher variances may occur. Despite proofreading, typographical errors may occur. documented in this encounter Miscellaneous Notes * Assessment & Plan Note - Laura Tapia NP - 02/20/2022 4:12 PM CDTAssociated Problem(s): Class 2 obesity due to excess calories without serious comorbidity with bodymass index (BMI) of 36.0 to 36.9 in adult (Resolved 11/12/2022) HPI: Condition is not at/near goal goal BMI <30 A&P: Healthy, high-protein, lower carbohydrate, lower fat lifestyle and exercise for 150min/week recommended Recommend tracking everything you put in your mouth on an olegario like Neema Lower carb substitutions: [employer] carries a zero net carb bread If you are looking for whole potatoes, like to use in soup or new potato shape/flavor, radishes area great replacement If you are looking for [...] in much longer they will become mushy [place] and/or coconut flour instead of regular flour For pizza dough, try fathead pizza dough recipe online. To get a crispy crust, bake on one side for8-12 min, then flip over and bake on [...] pork rinds For yogurt, try Two Good palauan yogurt Use [employer] for recipe ideas. Type [...] fist size to an actual measuring cup. documented in this encounter Plan of Treatment Not on file documented as of this encounter Procedures Procedure Name Priority Date/Time Associated Diagnosis Comments POCT URINALYSIS DIPSTICK Routine 02/20/2022 4:14 PM CDT Urinary retention with incomplete bladder emptying documented in this encounter Results * (ABNORMAL) POCT urinalysis dipstick (02/20/2022 4:14 PM CDT) Color, Urine, POC Yellow Clarity, ur, POC Clear Clear Glucose, ur, POC Negative Negative MG/DL Bilirubin, ur, POC Negative Negative, Small, Moderate, Large Ketones, ur, POC Negative Negative Specific [place], POC 1.020 1.005 - 1.030 Blood, ur, POC Negative Negative pH, ur, POC 5.5 5.0 - 8.0 Protein, ur, POC Negative Negative Urobilinogen, urine, POC 0.2 0.2 - 1.0 mg/dL Nitrite, ur, POC Negative Negative Leukocytes, ur, POC Small(A) Negative Lot Number [id number] Urine, clean voided 02/20/2022 4:14 PM CDT Laura Tapia NP POINT OF CARE TEST ORDERABL ES Final Result documented in this encounter Visit Diagnoses Diagnosis Urinary retention with incomplete bladder emptying- Primary Incomplete bladder emptying Class 2 obesity due to excess calories without serious comorbidity with body mass index (BMI) of 36.0 to 36.9 in adult documented in this encounter Care Teams Precision Lathe Operator Relationship Specialty Start Date End Date Laura Tapia NP PCP - General Family Medicine 09/30/19 10/01/22 Mariaelena Zaidi MD Consulting Physician Sleep Medicine 07/12/21 documented as of this encounter
--- OUTSIDE RECORDS SUMMARY | 2024-09-17 12:53 | XMS_ITS | Encounter Summary ---
Author Organization [facility] Address [address] [place] [address] Care Team Providers Care Senior Courtroom Clerk Name Role Phone Laura Tapia NP Primary Care Provider [phone] Mariaelena Zaidi MD Unavailable Reason for Visit * Reason Comments Hyperlipidemia Hypertension Encounter Details Date Type Department Care Team (Late st Contact Info) Description 10/18/2021 4:00 PM CREATIVE WRITER Office Visit [facility] [address] [place] [phone] Laura Tapia NP [address] [place] [id number] Essential hypertension (Primary Dx); Mixed hyperlipidemia; Spondylosis of lumbar region without myelopathy or radiculopathy; Obstructive sleep apnea syndrome; Restless legs syndrome; Laryngopharyngeal reflux (LPR); Situational anxiety; Anger reaction; Psychophysiological insomnia; Class 2 obesity due to excess calories without serious comorbidity with body mass index (BMI) of 35.0 to 35.9 in adult; Shakiness; Erectile disorder, generalized, mild; Prostate cancer screening Social History Tobacco Use Types Packs/Day Years [...] on file 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 CREATIVE WRITER Gender Identity Not on file Sexual Orientation Not on file documented as of this encounter Last Filed Vital Signs Vital Sign Reading Time Taken Comments Blood Pressure 122/64 10/18/2021 4:19 PM CREATIVE WRITER Pulse 75 10/18/2021 4:00 PM CREATIVE WRITER Temperature - - Respiratory Rate 12 10/18/2021 4:00 PM CREATIVE WRITER Oxygen Saturation 97% 10/18/2021 4:00 PM CREATIVE WRITER Inhaled Oxygen Concentration - - Weight 125.7 kg (277 lb 1.6 oz) 10/18/2021 4:00 PM CREATIVE WRITER Height 188 cm (6' 2.02 ) 10/18/2021 4:00 PM CREATIVE WRITER Body Mass Index 35.56 10/18/2021 4:00 PM CREATIVE WRITER documented in this encounter Progress Notes * Laura Tapia NP - 10/18/2021 4:00 PM CST Images from the original note were not included. Subjective/Objective Patient ID: Jaden De La Torre is a 51 y.o. male. Assessment/Plan Diagnoses and all orders for this visit: Essential hypertension (Primary) Assessment & Plan: HPI: Condition is stable A&P: Discussed/ordered labs, encouraged healthy, low carbohydrate lifestyle and at least 150min/week of exercise, continue on Lisinopril 5 mg daily, metoprolol 25 mg daily Orders: - Hemoglobin A1c; Future - CBC with auto differential; Future - Comprehensive metabolic panel; Future - Lipid panel; Future - TSH; Future - Vitamin D 25 hydroxy; Future Mixed hyperlipidemia Assessment & Plan: HPI: Condition is stable A&P: Discussed/ordered labs, encouraged healthy, low carbohydrate lifestyle and at least 150min/week of exercise, continue on Pravastatin 40 mg daily Spondylosis of lumbar region without myelopathy or radiculopathy Assessment & Plan: HPI: Condition is stable A&P: Discussed/ordered labs, encouraged healthy, low carbohydrate lifestyle and at least 150min/week of exercise, Meloxicam 15 mg daily Obstructive sleep apnea syndrome Assessment & Plan: HPI: Condition is stable A&P: Discussed/ordered labs, encouraged healthy, low carbohydrate lifestyle and at least 150min/week of exercise, continue Seeing Dr. Zaidi sleep medicine continue on CPAP, Mirapex 1.5 mg once daily at bedtime Restless legs syndrome Assessment & Plan: HPI: Condition is stable A&P: Discussed/ordered labs, encouraged healthy, low carbohydrate lifestyle and at least 150min/week of exercise, continue Seeing Dr. Zaidi sleep medicine continue on CPAP, Mirapex 1.5 mg once daily at bedtime Laryngopharyngeal reflux (LPR) Assessment & Plan: HPI: Condition is stable no meds at this time, encouraged healthy diet and exercise Avoid trigger foods including: carbonated beverages, caffeine, spicy, fried foods, tomatoes, cucumbers, mint, and acidic fruits/juices like orange/lemon/grapefruit. Avoid eating/drinking anything for at least 2 hours before bed. Sleep with bed propped. 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 deficiency with terminal makeup operator use of PPI with pt, would like to remain on medication at this time Situational anxiety Assessment & Plan: Patient reiterated [...] exercise, continue on Bupropion 300 mg daily Anger reaction Assessment & Plan: Patient reiterated no suicidal [...] exercise, continue on Bupropion 300 mg daily Psychophysiological insomnia Assessment & Plan: HPI: Condition is stable A&P: Discussed/ordered labs, encouraged healthy, low carbohydrate lifestyle and at least 150min/week of exercise, continue Seeing Dr. Zaidi sleep medicine continue on CPAP, Mirapex 1.5 mg once daily at bedtime Class 2 obesity due to excess calories without serious comorbidity with body mass index (BMI) of 35.0 to 35.9 in adult Assessment & Plan: HPI: Condition is stable goal BMI <30 A&P: Healthy, high-protein, lower carbohydrate, lower fat lifestyle and exercise for 150min/week recommended Substitutions: Recommend tracking everything you put in your mouth on an olegario like [employer] or [employer] Rosyi carries a zero net carb bread If [...] in much longer they will become mushy [place] and/or coconut flour instead of regular flour [...] pork rinds For yogurt, try Two Good east timorese yogurt Use Pinterest for recipe ideas. Type in low carb... Orders: - Vitamin D 25 hydroxy; Future Shakiness Comments: thinks his blood sugar is dropping, then feels exhausted. we will do glucose tolerance test and other labs. eat high protein snacks every couple hours Erectile disorder, generalized, mild Comments: discussed that this could be exacerbated by bp or blood sugars not being in control. we will check labs. pt tried cialis and it caused headache, decline med Prostate cancer screening - PSA screen; Future Thanks for coming in today. My medical appliance maker, Cortney, and I are thankful you have trusted us with your care, and hope that you received EXCELLENT care today! Please do not hesitate to call if you have any questions or concerns at [phone]. You may receive a phone call or text asking about your care today. We would love to hear your input and again, hope your visit was as EXCELLENT as possible, even if you were not feeling your best! Follow up 6 Months Chief Complaint Hyperlipidemia and Hypertension Patient here today to discuss chronic conditions and discuss labs/have labs ordered Had covid about 6 wks ago and still having cough/fatigue if he is doing anything physical Review of Systems Respiratory: Positive for shortness of breath (with exertion since having covid). Cardiovascular: Negative for chest pain. Psychiatric/Behavioral: Negative for suicidal ideas. BP 122/64 (BP Location: Left arm, Patient Position: Sitting) Pulse 75 Resp 12 Ht 188 cm (6' 2.02 ) Wt 125.7 kg (277 lb 1.6 oz) SpO2 97% BMI 35.56 kg/m?? Physical Exam Constitutional: General: He is not in acute distress. Appearance: He is well-developed. He is obese. HENT: Head: Normocephalic. Right Ear: Tympanic membrane normal. Left Ear: Tympanic membrane normal. Nose: Nose normal. Mouth/Throat: Mouth: Mucous membranes are moist. Eyes: Conjunctiva/sclera: Conjunctivae normal. Pupils: Pupils are equal, round, and reactive to light. Neck: Thyroid: No thyroid mass. Cardiovascular: Rate and Rhythm: Normal rate and regular rhythm. Pulses: Normal pulses. Heart sounds: No murmur heard. Pulmonary: Effort: Pulmonary effort is normal. Breath sounds: Normal breath sounds. Abdominal: General: Bowel sounds are normal. Palpations: Abdomen is soft. Tenderness: There is no abdominal tenderness. Musculoskeletal: General: Normal range of motion. Lymphadenopathy: Cervical: No cervical adenopathy. Skin: General: Skin is warm and dry. Capillary Refill: Capillary refill takes less than 2 seconds. Neurological: Mental Status: He is alert and oriented to person, place, and time. Psychiatric: Mood and Affect: Mood normal. Laura Tapia NP Please note: Voice recognition software [employer] was used to dictate and transcribe this document. [employer] variances may occur. Despite proofreading, typographical errors may occur. TIVE WRITER * Cortney Long MA - 10/18/2021 4:00 PM CST Called Pt in regards to over due lab results that were ordered on 10/18/21. Pt has been working 12 hrdays and has not been able to get in to get lab's drawn. Ext out to 12/08/21 TIVE WRITER documented in this encounter Miscellaneous Notes * Assessment & Plan Note - Laura Tapia NP - 10/18/2021 3:14 PM CSTAssociated Problem(s): Laryngopharyngeal reflux (LPR) HPI: Condition is stable no meds at this time, encouraged healthy diet and exercise Avoid trigger foods including: carbonated beverages, caffeine, spicy, fried foods, tomatoes, cucumbers, mint, and acidic fruits/juices like orange/lemon/grapefruit. Avoid eating/drinking anything for at least 2 hours before bed. Sleep with bed propped. 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 deficiency with terminal makeup operator use of PPI with pt, would like to remain on medication at this time TIVE WRITER * Assessment & Plan Note - Laura Tapia NP - 10/18/2021 3:14 PM CSTAssociated Problem(s): Anger reaction Patient reiterated no suicidal thoughts at this [...] exercise, continue on Bupropion 300 mg daily TIVE WRITER * Assessment & Plan Note - Laura Tapia NP - 10/18/2021 3:13 PM CSTAssociated Problem(s): Restless legs syndrome HPI: Condition is stable A&P: Discussed/ordered labs, encouraged healthy, low carbohydrate lifestyle and at least 150min/week of exercise, continue Seeing Dr. Zaidi sleep medicine continue on CPAP, Mirapex 1.5 mg once daily at bedtime TIVE WRITER TIVE WRITER * Assessment & Plan Note - Laura Tapia NP - 10/18/2021 3:13 PM CSTAssociated Problem(s): Obstructive sleep apnea syndrome HPI: Condition is stable A&P: Discussed/ordered labs, encouraged healthy, low carbohydrate lifestyle and at least 150min/week of exercise, continue Seeing Dr. Zaidi sleep medicine continue on CPAP, Mirapex 1.5 mg once daily at bedtime TIVE WRITER TIVE WRITER * Assessment & Plan Note - Laura Tapia NP - 10/18/2021 3:13 PM CSTAssociated Problem(s): Spondylosis of lumbar region without myelopathy or radiculopathy HPI: Condition is stable A&P: Discussed/ordered labs, encouraged healthy, low carbohydrate lifestyle and at least 150min/week of exercise, Meloxicam 15 mg daily TIVE WRITER * Assessment & Plan Note - Laura Tapia NP - 10/18/2021 3:12 PM CSTAssociated Problem(s): Insomnia HPI: Condition is stable A&P: Discussed/ordered labs, encouraged healthy, low carbohydrate lifestyle and at least 150min/week of exercise, continue Seeing Dr. Zaidi sleep medicine continue on CPAP, Mirapex 1.5 mg once daily at bedtime TIVE WRITER TIVE WRITER * Assessment & Plan Note - Laura Tapia NP - 10/18/2021 3:12 PM CSTAssociated Problem(s): Hyperlipidemia HPI: Condition is stable A&P: Discussed/ordered labs, encouraged healthy, low carbohydrate lifestyle and at least 150min/week of exercise, continue on Pravastatin 40 mg daily TIVE WRITER * Assessment & Plan Note - Laura Tapia NP - 10/18/2021 3:11 PM CSTAssociated Problem(s): Essential hypertension HPI: Condition is stable A&P: Discussed/ordered labs, encouraged healthy, low carbohydrate lifestyle and at least 150min/week of exercise, continue on Lisinopril 5 mg daily, metoprolol 25 mg daily TIVE WRITER * Assessment & Plan Note - Laura Tapia NP - 10/18/2021 3:11 PM CSTAssociated Problem(s): Class 2 obesity due to excess calories without serious comorbidity with bodymass index (BMI) of 36.0 to 36.9 in adult (Resolved 11/12/2022) HPI: Condition is stable goal BMI <30 A&P: Healthy, high-protein, lower carbohydrate, lower fat lifestyle and exercise for 150min/week recommended Substitutions: Recommend tracking everything you put in your mouth on an olegario like [employer] or [employer] carries a zero net carb bread [...] in much longer they will become mushy [place] and/or coconut flour instead of regular flour [...] pork rinds For yogurt, try Two Good east timorese yogurt Use Pinterest for recipe ideas. Type in low carb... TIVE WRITER * Assessment & Plan Note - Laura Tapia NP - 10/18/2021 3:11 PM CSTAssociated Problem(s): Situational anxiety Patient reiterated no suicidal [...] exercise, continue on Bupropion 300 mg daily TIVE WRITER documented in this encounter Plan of Treatment Not on file documented as of this encounter Results * PSA screen (12/13/2021 9:14 AM CDT) [...] data last revised 2018. Testing performed by: [facility], [address] [place] [address]., [id number] Blood 12/13/2021 9:14 AM CDT 12/13/2021 2:02 PM CDT us Laura Tapia GRINDER OPERATOR SURFACE TOOL LAB BLOOD ORDERABLES Final Result Performing Organization Address [facility] de Phone Number [facility] ([place]) [address] [facility] [place] [address] * Vitamin D 25 hydroxy (12/13/2021 9:14 AM CDT) Vitamin D 25-OH 37 30 - 80 ng/mL [facility] ([place]) Blood 12/13/2021 9:14 AM CDT 12/13/2021 9:44 AM CDT Laura Tapia GRINDER OPERATOR SURFACE TOOL LAB BLOOD ORDERABLES Final Result Performing Organization Address [facility] de Phone Number [facility] ([place]) [address] [facility] [place] [address] * TSH (12/13/2021 9:14 AM CDT) Thyroid Stimulating Hormone 1.51 0.30 - 4.20 mcIUnit/mL [facility] ([place]) Blood 12/13/2021 9:14 AM CDT 12/13/2021 9:45 AM CDT us Laura Regina GRINDER OPERATOR SURFACE TOOL LAB BLOOD ORDERABLES Final Result [facility] ([place]) 1 [facility] Department [place] [address] * (ABNORMAL) Lipid panel (12/13/2021 9:14 AM CDT) Cholesterol 206(H) 30 - 199 mg/dL [facility] ([place]) [...] Data was last revised on 2018. Triglycerides 136 <=149 mg/dL [facility] ([place]) Comment: Interpretive [...] Data was last revised on 2018. HDL 42 >=40 mg/dL [facility] ([place]) Comment: Interpretive Data [...] was last revised on 2018. LDL, calculated 137(H) <=129 mg/dL [facility] ([place]) Comment: Interpretive [...] was last revised on 2018. Non-HDL Cholesterol 164 mg/dL [facility] ([place]) Comment: Interpretive Data [...] was last revised on 2018. Chol/HDL ratio 5 [facility] ([place]) Blood 12/13/2021 9:14 AM CDT 12/13/2021 9:45 AM CDT Laura Tapia GRINDER OPERATOR SURFACE TOOL LAB BLOOD ORDERABLES Final Result [facility] ([place]) 1 [facility] Department [place] [address] * Comprehensive metabolic panel (12/13/2021 9:14 AM CDT) Sodium 138 135 - 145 mmol/L [facility] ([place]) Potassium, pl 4.0 3.3 - 4.9 mmol/L [facility] ([place]) Chloride 105 97 - 110 mmol/L [facility] ([place]) CO2 23 22 - 32 mmol/L [facility] ([place]) Anion gap 10 2 - 15 mmol/L [facility] ([place]) BUN 11 8 - 25 mg/dL [facility] ([place]) Creatinine 0.97 0.80 - 1.30 mg/dL [facility] ([place]) [...] classification and Diagnosis of Diabetes Diabetes Care 2017;40 (Suppl. 1):S11. Current interpretive data was last revised 2017. Calcium 9.1 8.5 - 10.3 mg/dL [facility] ([place]) Bilirubin, total 0.6 0.1 - 1.2 mg/dL [facility] ([place]) Protein, pl 6.7 6.5 - 8.5 g/dL [facility] ([place]) Albumin 4.5 3.5 - 5.0 g/dL [facility] ([place]) Alk phos 101 40 - 130 Units/L [facility] ([place]) ALT 33 7 - 55 Units/L [facility] ([place]) AST 24 10 - 50 Units/L [facility] ([place]) Blood 12/13/2021 9:14 AM CDT 12/13/2021 9:45 AM CDT Laura Tapia GRINDER OPERATOR SURFACE TOOL LAB BLOOD ORDERABLES Final Result [facility] ([place]) 1 [facility] Department of Laboratories [place], [place] [id number] * CBC with auto differential (12/13/2021 9:14 AM CDT) WBC 4.0 3.8 - 9.9 K/cumm [facility] ([place]) Hgb 14.6 13.0 - 17.5 g/dL [facility] ([place]) Hct 42.4 38.9 - 50.3 % [facility] ([place]) Plt 216 150 - 400 K/cumm [facility] ([place]) MPV 9.7 9.1 - 12.3 fL [facility] ([place]) RBC 4.65 4.30 - 5.80 M/cumm [facility] ([place]) MCV 91.2 81.3 - 96.4 fL [facility] ([place]) MCH 31.4 27.1 - 33.3 pg [facility] ([place]) MCHC 34.4 32.3 - 35.7 g/dL [facility] ([place]) RDW CV 12.7 11.1 - 14.9 % [facility] ([place]) RDW SD 41.9 35.7 - 48.1 fL [facility] ([place]) NRBC abs 0.00 0.00 - 0.01 K/cumm [facility] ([place]) Blood 12/13/2021 9:14 AM CDT 12/13/2021 9:44 AM CDT Laura Tapia LAB BLOOD ORDERABLES Final Result Performing Organization Address [facility] de Phone Number [facility] ([place]) [address] [facility] [place] [address] * Hemoglobin A1c (12/13/2021 9:14 AM CDT) Hgb A1C 5.0 4.0 - 5.6 % [facility] ([place]) Estimated Average Glucose 97 mg/dL [facility] ([place]) Comment: The ADA recommends reporting an estimated Average Glucose (eAG) with all Hemoglobin A1c results using the equation derived from a study of 507 normal and diabetic adults. ??Minority populations were underrepresented and children were not included. ?? (Diabetes Care 31:7021-9538, 2008). ??The eAG is not equivalent to a fasting glucose. Blood 12/13/2021 9:14 AM CDT 12/13/2021 9:45 AM CDT Laura Tapia NP LAB BLOOD ORDERABLES Final Result Performing Organization Address [facility] Co de Phone Number [facility] ([place]) [address] [facility] [place] [address] documented in this encounter Visit Diagnoses Diagnosis Essential hypertension- Primary Unspecified essential hypertension Mixed hyperlipidemia Spondylosis of lumbar region without myelopathy or radiculopathy Obstructive sleep apnea syndrome Obstructive sleep apnea (adult) (pediatric) Restless legs syndrome Restless legs syndrome (RLS) Laryngopharyngeal reflux (LPR) Situational anxiety Anger reaction Undersocialized conduct disorder, aggressive type, unspecified Psychophysiological insomnia Persistent disorder of initiating or maintaining sleep Class 2 obesity due to excess calories without serious comorbidity with body mass index (BMI) of 35.0 to 35.9 in adult Shakiness Abnormal involuntary movements Erectile disorder, generalized, mild Prostate cancer screening Special screening for malignant neoplasm of prostate documented in this encounter Care Teams Senior Courtroom Clerk Relationship Specialty Start Date End Date Laura Tapia NP PCP - General Family Medicine 09/30/19 10/01/22 Mariaelena Zaidi MD Consulting Physician Sleep Medicine 07/12/21 documented as of this encounter
--- OUTSIDE RECORDS SUMMARY | 2024-09-17 12:53 | XMS_ITS | Encounter Summary ---
Author Organization [facility] Address [address] [place] [address] Care Team Providers Care Coremaker Machine Name Role Phone Laura Tapia NP Primary Care Provider [phone] Mariaelena Zaidi MD Unavailable Encounter Details Date Type Department Care Team (Late st Contact Info) Description 02/21/2022 Telephone [facility] [address] [place] [address] Justina Morataya MA Social History Tobacco Use Types Packs/Day Years [...] on file 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 Verified the [facility] in [place] is within network for the patient. Faxed new order to [facility]. * Telephone Encounter - Justina Morataya MA - 02/21/2022 10:43 AM CDT Pt called in and states that [facility] is out of network. Pt would like for you to contact them at [phone]. documented in this encounter Plan of Treatment Not on file documented as of this encounter Visit Diagnoses Not on filedocumented in this encounter Care Teams Coremaker Machine Relationship Specialty Start Date End Date Laura Tapia NP PCP - General Family Medicine 09/30/19 10/01/22 Mariaelena Zaidi MD Consulting Physician Sleep Medicine 07/12/21 documented as of this encounter
--- OUTSIDE RECORDS SUMMARY | 2024-09-17 12:53 | XMS_ITS | Encounter Summary ---
Author Organization [facility] Healthcare Address [address] [place] [address] Care Team Providers Care Steam Table Associate Name Role Phone Laura Tapia NP Primary Care Provider [phone] Mariaelena Zaidi MD Unavailable Encounter Details Date Type Department Care Team (Late st Contact Info) Description 12/13/2021 9:20 AM CDT Lab [facility] [address] [place] [address] Hollis Burgos MD [address] [place] [address] DR VELÁSQUEZ A [address] [address] Laura Tapia NP [address] [place] [id number] Prostate cancer screening; Essential hypertension; Class 2 obesity due to excess calories without serious comorbidity with body mass index (BMI) of 35.0 to 35.9 in adult; Shakiness Discharge Disposition: Discharge to home or self [...] on file 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 Gender Identity Not on file Sexual Orientation Not on file documented as of this encounter Discharge Disposition Disposition Code Departure Means Destination Discharge to home or self care documented in this encounter Plan of Treatment Not on file documented as of this encounter Procedures Procedure Name Priority Date/Time Associated Diagnosis Comments GTT 75GM 2HR NON-GESTATIONAL SCREEN Timed 12/13/2021 11:56 AM CDT Shakiness GTT 75GM 2HR NON-GESTATIONAL SCREEN Timed 12/13/2021 11:56 AM CDT Shakiness GTT 75GM FASTING NON-GESTATIONAL SCREEN Timed 12/13/2021 9:30 AM CDT Shakiness EGFR Routine 12/13/2021 9:14 AM CDT Essential hypertension DIFFERENTIAL AUTO Routine 12/13/2021 9:1 4 AM CDT Essential hypertension PSA SCREEN Routine 12/13/2021 9:14 AM CDT Prostate cancer screening CBC WITH AUTO DIFFERENTIAL Routine 12/13/2021 9:14 AM CDT Essential hypertension VITAMIN D 25 HYDROXY Routine 12/13/2021 9:14 AM CDT Essential hypertension Class 2 obesity due to excess calories without serious comorbidity with body mass index (BMI) of 35.0 to 35.9 in adult TSH Routine 12/13/2021 9:14 AM CDT Essential hypertension HEMOGLOBIN A1C Routine 12/13/2021 9:14 AM CDT Essential hypertension LIPID PANEL Routine 12/13/2021 9:14 AM CDT Essential hypertension COMPREHENSIVE METABOLIC PANEL Routine 12/13/2021 9:14 AM CDT Essential hypertension documented in this encounter Results * Glucose tolerance testing 75 gram 2 hour non-gestational (12/13/2021 11:56 AM CDT) GTT 75g 2h non-gest 95 <=139 mg/dL [facility]) Blood 12/13/2021 11:5 6 AM CDT 12/13/2021 12:07 PM CDT Laura Regina INDEXER LAB BLOOD ORDERABLES Final Result Performing Organization Address [facility] de Phone Number [facility] [place] 1 [facility] [place] [address] * (ABNORMAL) Glucose tolerance testing 75 gram fasting non-gestational (12/13/2021 9:30 AM CDT) GTT 75g fasting non-gest 128(H) <=99 mg/dL [facility] ([place]) Comment: Interpretive Data: Type 1/Type 2 Diabetes Non-Gestational Adults: FASTING Normal: 70-99 mg/dL Impaired Glucose Tolerance: 100-125 mg/dL Possible Diabetes: >125 mg/dL - 2-HOUR Normal: 70-139 mg/dL Impaired Glucose Tolerance: 140-199 mg/dL Possible Diabetes: >199 mg/dL Intermediate 2-hour value indicates impaired glucose tolerance, while intermediate fasting value indicates impaired fasting glucose. - Reference Interval Info: Diabetes Care 2020; 43(Suppl 1):S14-31 Current interpretive data was last revised on 2020. Blood 12/13/2021 9:30 AM CDT 12/13/2021 9:38 AM CDT Laura Tapia INDEXER LAB BLOOD ORDERABLES Final Result Performing Organization Address [facility] Co de Phone Number [facility] [place] [address] [facility] [place] [address] * eGFR (12/13/2021 9:14 AM CDT) eGFR 93 mL/min/1. 73 m2 [facility] [place]) Comment: Interpretive Data Reference Interval Normal ?>/= [...] interpretive data was last reviewed 2021. Blood 12/13/2021 9:14 AM CDT 12/13/2021 9:45 AM CDT us Laura Tapia NP LAB BLOOD ORDERABLES Final Result [facility] [place] 1 [facility] [place] [address] * Differential, auto (12/13/2021 9:14 AM CDT) Neutrophil abs 2.2 1.7 - 6.5 K/cumm [facility] [place]) Imm gran abs 0.0 0.0 - 0.1 K/cumm [facility] [place] Lymphocyte abs 1.2 0.8 - 3.3 K/cumm [facility] [place] Monocyte abs 0.4 0.2 - 0.8 K/cumm [facility] [place] Eosinophil abs 0.1 0.0 - 0.5 K/cumm [facility] [place] Basophil abs 0.1 0.0 - 0.1 K/cumm [facility] [place] Neutrophil pct 55.6 % [facility] [place] Comment: Interpretive Data Percent cell count reference ranges are not reported, since discordance with absolute values may lead to misinterpretation of CBC data. Current Interpretive Data was last revised on 2017. Imm gran pct 0.8 % [facility] [place] Comment: Interpretive Data Percent cell count reference ranges are not reported, since discordance with absolute values may lead to misinterpretation of CBC data. Current Interpretive Data was last revised on 2017. Lymphocyte pct 29.1 % [facility] [place] Comment: Interpretive Data Percent cell count reference ranges are not reported, since discordance with absolute values may lead to misinterpretation of CBC data. Current Interpretive Data was last revised on 2017. Monocyte pct 9.9 % [facility] [place] Comment: Interpretive Data Percent cell count reference ranges are not reported, since discordance with absolute values may lead to misinterpretation of CBC data. Current Interpretive Data was last revised on 2017. Eosinophil pct 3.3 % [facility] [place] Comment: Interpretive Data Percent cell count reference ranges are not reported, since discordance with absolute values may lead to misinterpretation of CBC data. Current Interpretive Data was last revised on 2017. Basophil pct 1.3 % [facility] [place] Comment: Interpretive Data Percent cell count reference ranges are not reported, since discordance with absolute values may lead to misinterpretation of CBC data. Current Interpretive Data was last revised on 2017. Blood 12/13/2021 9:14 AM CDT 12/13/2021 9:44 AM CDT us Laura Tapia NP LAB BLOOD ORDERABLES Final Result [facility] [place] 1 [facility] Department of Laboratories [place], [place] [id number] * Hemoglobin A1c (12/13/2021 9:14 AM CDT) Hgb A1C 5.0 4.0 - 5.6 % [facility] [place] Estimated Average Glucose 97 mg/dL [facility] [place] Comment: The ADA recommends reporting an estimated Average Glucose (eAG) with all Hemoglobin A1c results using the equation derived from a study of 507 normal and diabetic adults. ??Minority populations were underrepresented and children were not included. ?? (Diabetes Care 31:5154-1698, 2008). ??The eAG is not equivalent to a fasting glucose. Blood 12/13/2021 9:14 AM CDT 12/13/2021 9:45 AM CDT Laura Tapia NP LAB BLOOD ORDERABLES Final Result [facility] [place] 1 [facility] Department [place] [address] * CBC with auto differential (12/13/2021 9:14 AM CDT) WBC 4.0 3.8 - 9.9 K/cumm [facility] [place]) Hgb 14.6 13.0 - 17.5 g/dL [facility] [place] Hct 42.4 38.9 - 50.3 % [facility] Plt 216 150 - 400 K/cumm [facility] ([place]) MPV 9.7 9.1 - 12.3 fL [facility] [place] RBC 4.65 4.30 - 5.80 M/cumm [facility] [place] MCV 91.2 81.3 - 96.4 fL [facility] [place] MCH 31.4 27.1 - 33.3 pg [facility] [place] MCHC 34.4 32.3 - 35.7 g/dL [facility] [place] RDW CV 12.7 11.1 - 14.9 % [facility] [place] RDW SD 41.9 35.7 - 48.1 fL [facility] [place]) NRBC abs 0.00 0.00 - 0.01 K/cumm [facility] Blood 12/13/2021 9:14 AM CDT 12/13/2021 9:44 AM CDT us Laura Regina INDEXER LAB BLOOD ORDERABLES Final Result [facility] [place] 1 [facility] Department [place] [address] * Comprehensive metabolic panel (12/13/2021 9:14 AM [...] 12/13/2021 9:45 AM CDT us Laura Regina INDEXER LAB BLOOD ORDERABLES Final Result [facility] [place] 1 [facility] Department [place] [address] * (ABNORMAL) Lipid panel (12/13/2021 9:14 AM [...] on 2018. HDL 42 >=40 mg/dL [facility] [place]) Comment: Interpretive Data Ages < [...] 2018. LDL, calculated 137(H) <=129 mg/dL [facility] [place]) Comment: Interpretive Data Ages < [...] on 2018. Non-HDL Cholesterol 164 mg/dL [facility] [place]) Comment: Interpretive Data Ages < [...] last revised on 2018. Chol/HDL ratio 5 [facility] [place] Blood 12/13/2021 9:14 AM CDT 12/13/2021 9:45 AM CDT us Laura Tapia INDEXER LAB BLOOD ORDERABLES Final Result Performing Organization Address [facility]/ZIP Co de Phone Number [facility] [place] 1 [facility] [place] [address] * TSH (12/13/2021 9:14 AM CDT) Thyroid Stimulating Hormone 1.51 0.30 - 4.20 mcIUnit/mL [facility] [place] Blood 12/13/2021 9:14 AM CDT 12/13/2021 9:45 AM CDT us Laura Tapia NP LAB BLOOD ORDERABLES Final Result [facility] [place] 1 [facility] [place] [address] * Vitamin D 25 hydroxy (12/13/2021 9:14 AM CDT) Vitamin D 25-OH 37 30 - 80 ng/mL [facility] [place] Blood 12/13/2021 9:14 AM CDT 12/13/2021 9:44 AM CDT Laura Tapia INDEXER LAB BLOOD ORDERABLES Final Result [facility] [place] 1 [facility] [place] [address] * PSA screen (12/13/2021 9:14 AM CDT) [...] data last revised 2018. Testing performed by: [facility], [address] [place] [address]., [id number] Blood 12/13/2021 9:14 AM CDT 12/13/2021 2:02 PM CDT us Laura Tapia INDEXER LAB BLOOD ORDERABLES Final Result [facility] [place] 1 [facility] Department [place] [address] documented in this encounter Visit Diagnoses Diagnosis Prostate cancer screening Special screening for malignant neoplasm of prostate Essential hypertension Unspecified essential hypertension Class 2 obesity due to excess calories without serious comorbidity with body mass index (BMI) of 35.0 to 35.9 in adult Shakiness Abnormal involuntary movements documented in this encounter Care Teams Steam Table Associate Relationship Specialty Start Date End Date Laura Tapia NP PCP - General Family Medicine 09/30/19 10/01/22 Mariaelena Zaidi MD Consulting Physician Sleep Medicine 07/12/21 documented as of this encounter
--- OUTSIDE RECORDS SUMMARY | 2024-09-17 12:53 | XMS_ITS | Encounter Summary ---
Author Organization [facility] Medical Group Address [address] [place] [address] Care Team Providers Care Mobile Homes Repairer Name Role Phone Laura Tapia NP Primary Care Provider [phone] Mariaelena Zaidi MD Unavailable Encounter Details Date Type Department Care Team (Late st Contact Info) Description 10/04/2021 Orders Only [facility] [address] [place] [address] Laura Tapia NP [address] [place] [address] Social History Tobacco Use Types Packs/Day Years [...] points, staff should administer the PHQ-9) 0 04/11/2021 Sex and Gender Information Value Date Recorded Sex Assigned at Not on file 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 Gender Identity Not on file Sexual Orientation Not on file documented as of this encounter Ordered Prescriptions Prescription Sig Dispense Quantity Refills Last Filled Start Date End Date promethazine (PHENERGAN) 1.25 mg/mL syrup Take 10 mL (12.5 mg total) by mouth nightly as needed (cough) for up to 10 days 100 mL 10/04/2021 2 benzonatate (TESSALON) 100 mg capsule Take 2 capsules (200 mg total) by mouth 3 (three) times a day as needed for cough for up to 10 days 60 capsule 1 10/04/2021 2 documented in this encounter Plan of Treatment Not on file documented as of this encounter Visit Diagnoses Not on filedocumented in this encounter Care Teams Mobile Homes Repairer Relationship Specialty Start Date End Date Laura Tapia NP PCP - General Family Medicine 09/30/19 10/01/22 Mariaelena Zaidi MD Consulting Physician Sleep Medicine 07/12/21 documented as of this encounter
--- OUTSIDE RECORDS SUMMARY | 2024-09-17 12:53 | XMS_ITS | Encounter Summary ---
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 The wrong glucose test was put in. Order pending for your review. documented in this encounter Plan of Treatment Not on file documented as of this encounter Visit Diagnoses Diagnosis Shakiness- Primary Abnormal involuntary movements documented in this encounter Care Teams Gas Analyst Relationship Specialty Start Date End Date Laura Tapia NP PCP - General Family Medicine 09/30/19 10/01/22 Mariaelena Zaidi MD Consulting Physician Sleep Medicine 07/12/21 documented as of this encounter
--- OUTSIDE RECORDS SUMMARY | 2024-09-17 12:53 | XMS_ITS | Encounter Summary ---
Author Organization [facility] Medical Group Address 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 Gender Identity Not on file Sexual Orientation Not on file documented as of this encounter Plan of Treatment Scheduled Orders Name Type Priority Associated Diagnoses Orde r Schedule Glucose tolerance, 3 hours Lab Routine Shakiness Expected: 11/13/2021, Expires: 11/13/2022 documented as of this encounter Visit Diagnoses Diagnosis Shakiness- Primary Abnormal involuntary movements documented in this encounter Care Teams Hawk Missile Air Defense Artillery Relationship Specialty Start Date End Date Laura Tapia NP PCP - General Family Medicine 09/30/19 10/01/22 Mariaelena Zaidi MD Consulting Physician Sleep Medicine 07/12/21 documented as of this encounter
--- OUTSIDE RECORDS SUMMARY | 2024-09-17 12:53 | XMS_ITS | Encounter Summary ---
Author Organization [facility] Medical Group Address [address] [place] [address] Care Team Providers Care Executive Director Contract Shop Name Role Phone Regina Laura PHILLIPS Primary Care Provider [phone] Mariaelena Zaidi MD Unavailable Reason for Visit * Reason Comments Sleep Study HSAT on 05/30/21. Jefferson ramirez on CPAP supplies from [facility]. 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 Gender Identity Not on file Sexual Orientation Not on file documented as of this encounter Last Filed Vital Signs Vital Sign Reading Time Taken Comments Blood Pressure 120/77 07/31/2021 2:56 PM OWNER SPA DIRECTOR Pulse 70 07/31/2021 2:56 PM OWNER SPA DIRECTOR Temperature 36.8 ??C (98.2 ??F) 07/31/2021 2:56 PM CS T Respiratory Rate 18 07/31/2021 2:56 PM OWNER SPA DIRECTOR Oxygen Saturation 97% 07/31/2021 2:56 PM OWNER SPA DIRECTOR Inhaled Oxygen Concentration - - Weight 124.3 kg (274 lb) 07/31/2021 2:56 PM OWNER SPA DIRECTOR Height 188 cm (6' 2 ) 07/31/2021 2:56 PM OWNER SPA DIRECTOR Body Mass Index 35.18 07/31/2021 2:56 PM OWNER SPA DIRECTOR documented in this encounter Progress Notes * Mariaelena Zaidi MD - 07/31/2021 3:00 PM CST Images from the original note were not included. SUBJECTIVE Chief Complaints: Snoring, unrefreshing sleep, excessive daytime sleepiness HPI: Jaden De La Torre is a 50 y.o. male with a PMHx significant for obstructive sleep apnea, hypertension, hyperlipidemia, obesity, anxiety was seen in the sleep medicine clinic for obstructive sleep apnea. Obstructive sleep apnea: Patient has history of obstructive sleep apnea and is not using his respiratory dream Station, which is on recall. Patient had home sleep apnea testing recently, but had missed his appointment. Auto CPAP at 5-16 cm of water has been ordered, but patient has yet to receive it from [facility]. Patient continues to have excessive daytime sleepiness. History: Patient gives history of many years of snoring, witnessed apneas, waking up gasping or choking for air and excessive daytime sleepiness. Patient had a polysomnogram done 10-12 years ago in [place] and was started on CPAP machine. Patient started using it every night and uses it throughout the night. Patient had a new machine [...] of obstructive sleep apnea. 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 Patient currently has a RespirSimple Tithe dream Station, which is on recall. DME: [facility] Restless legs: History: Patient gives history of many years [...] presentation 13) Past Medical History: Diagnosis Date ??? Anxiety disorder Anxiety ??? Depression Depression ??? Diabetes mellitus (HCC) hypoglycemia ??? Erectile dysfunction ??? GERD (gastroesophageal reflux disease) ??? Hemorrhoids ??? Hyperlipidemia ??? Hypertension ??? Palpitation ??? Sleep apnea Past Surgical History: Procedure Laterality Date ??? BAND HEMORRHOIDECTOMY ??? BIOPSY ABDOMEN RETROPERITONEAL N/A 02/06/2019 ??? CARPAL TUNNEL RELEASE ??? COLONOSCOPY 08/26/2020 1st ??? KNEE ARTHROSCOPY Right 02/2006 rt ac resection ??? SHOULDER SURGERY Current Outpatient Medications: ??? buPROPion XL, 300 mg, oral, QAM ??? lisinopriL, TAKE 1 TABLET DAILY ??? meloxicam, 15 mg, oral, Daily ??? metoprolol XL, TAKE 1 TABLET DAILY ??? pramipexole, 1.5 mg, oral, TID ??? pravastatin, 40 mg, oral, Daily No Known Allergies Social History Tobacco Use ??? Smoking status: Never Smoker ??? Smokeless tobacco: Former User Types: Chew ??? Tobacco comment: chews, not interested in counseling Substance Use Topics ??? Alcohol use: Yes Comment: can of beer a month Family History Problem Relation Age of Onset ??? Throat cancer Father ??? Hypertension Mother ??? Leukemia Mother Physical Exam: Vitals: 07/31/21 1456 BP: 120/77 Pulse: 70 Resp: 18 Temp: 36.8 ??C (98.2 ??F) TempSrc: Temporal SpO2: 97% Weight: 124.3 kg (274 lb) Height: 188 cm (6' 2 ) BMI: Body mass index is 35.18 kg/m??. Wt Readings from Last 6 Encounters: 07/31/21 124.3 kg (274 lb) 06/28/21 124.3 kg (274 lb) 05/17/21 124.5 kg (274 lb 6.4 oz) 04/11/21 126.1 kg (278 lb) 04/05/21 126.1 kg (278 lb) 02/08/21 122.9 kg (271 lb) BMI Readings from Last 6 Encounters: 07/31/21 35.18 kg/m?? 06/28/21 35.18 kg/m?? 05/17/21 35.23 kg/m?? 04/11/21 35.69 kg/m?? 04/05/21 35.69 kg/m?? 02/08/21 34.79 kg/m?? Physical Exam General appearance: Alert, oriented, in no distress. HEENT: Atraumatic, normocephalic. Pupils are equal and reactive to light. Extraocular movement intact. Positive for macroglossia and scalloped tongue. Mallampati-IV. Extremities/Musculoskeletal: No pedal edema, no calf tenderness Neuro: No focal deficits Psychiatric: Normal mood and affect Polysomnogram results: Polysomnogram from 10-12 years ago in [place]: Not available Home sleep apnea testing on 05/30: ROLLY of 66.2 Data download: Not available Ejection fraction: Stress echo from 2018: Normal systolic function Assessment and Plan: 1. Severe obstructive sleep apnea: o Home sleep apnea testing showed severe obstructive sleep apnea. o Patient currently not using Respironics dream Station, which is on recall. o Auto CPAP at 5-16 cm of water has been sent to [facility] already. Recommended patient to startusing it as soon as he receives it. Reached out to the [facility] and he is scheduled to receive it or early next week. o The physiology of sleep disordered breathing and its increased association with hypertension, diabetes mellitus type 2, arrhythmias, strokes, heart attacks, heart failure, hypersomnia, obesity, cognitive dysfunction, and mood disorders were discussed. o Hypnotics, sedatives, and related medications have the potential of worsening the apnea and should be avoided. o Patients with sleep apnea may have significant daytime hypersomnolence. If that is the case, driving or handling heavy machinery should be avoided until the apnea and excessive sleepiness have resolved. o Weight loss for ideal body weight range is recommended. 2. Hypersomnia: o Likely secondary to sleep fragmentation associated with uncontrolled sleep disordered breathing. o Monitor response to therapy for the above. o No driving if sleepy. 3. Morbid Obesity: o The effects of obesity, obstructive sleep apnea syndrome and other morbidities were discussed. o Recommended diet and exercise for ideal body weight. Patient verbalized understanding. 4. Restless leg syndrome: ?? Patient currently on pramipexole 1.5 mg nightly. Patient has not taken the prescribed 3 times a day dose. ?? Discussed with the patient at length that the maximum recommended dose of pramipexole for restless leg syndrome is 0.75 mg nightly during prior visit. ?? Recommended patient to take half of the 1.5 mg tablet to make it 0.75 mg nightly 1-2 hours priorto the symptom onset. Patient has symptoms at around 7:00 p.m.. ?? possibility of augmentation with pramipexole discussed in detail. ?? Last ferritin level on 05/2021 was high at 441 ng/ml. PCP notified of high ferritin level. 5. Return to clinic in 4 weeks after APAP has been started. Voice recognition software MModal Fluency Direct was used dictate and transcribe this document. Warranty Administrator variances may occur. Despite proofreading, typographical errors may occur. Mariaelena Zaidi MD [facility] Sleep Medicine CC: Laura Tapia NP R SPA DIRECTOR documented in this encounter Plan of Treatment Not on file documented as of this encounter Visit Diagnoses Diagnosis Obstructive sleep apnea- Primary Obstructive sleep apnea (adult) (pediatric) Hypersomnia Hypersomnia, unspecified Restless leg syndrome Restless legs syndrome (RLS) Obesity, unspecified classification, unspecified obesity type, unspecified whether serious comorbidity present documented in this encounter Care Teams Executive Director Contract Shop Relationship Specialty Start Date End Date Laura Tapia NP PCP - General Family Medicine 09/30/19 10/01/22 Mariaelena Zaidi MD Consulting Physician Sleep Medicine 07/12/21 documented as of this encounter
--- OUTSIDE RECORDS SUMMARY | 2024-09-17 12:53 | XMS_ITS | Encounter Summary ---
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 Rest when your body tells you. If still having symptoms in 6 wks, we will do echo and cxr RVISOR TUNNEL HEADING documented in this encounter Plan of Treatment Not on file documented as of this encounter Visit Diagnoses Not on filedocumented in this encounter Care Teams Bacon Stringer Relationship Specialty Start Date End Date Laura Tapia NP PCP - General Family Medicine 09/30/19 10/01/22 Mariaelena Zaidi MD Consulting Physician Sleep Medicine 07/12/21 documented as of this encounter
--- OUTSIDE RECORDS SUMMARY | 2024-09-17 12:53 | XMS_ITS | Encounter Summary ---
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 No action to take. * Telephone Encounter - Ginger aFrmer MA - 04/10/2022 3:10 PM CDT For review. * Telephone Encounter - Laura Tapia NP - 04/10/2022 11:57 AM CDT Yes, appears just the abd/pelvis will be fine. Thank you for f/u. * Telephone Encounter - Ginger Farmer MA - 04/10/2022 11:31 AM CDT Laura, please review message. * Telephone Encounter - Nakita Rodríguez MA - 04/10/2022 11:17 AM CDT Laura- I apologize for the back and forth. I was doing a chart review to ensure that correct location of the chest was noted on the order. I was able to find the biopsy (under imaging tab) that patient had a few years ago and it was of the Abdomen and the CT before that was an abdomen/pelvis that noted the mass in the abdominal area. Can you please review chart to see if patient does have a chestmass as he noted in the below message? * Telephone Encounter - Laura Tapia NP - 04/10/2022 10:38 AM CDT That would be great. Thank you * Telephone Encounter - Nakita Rodríguez MA - 04/10/2022 10:35 AM CDT The initial order is for an Abdomen and Pelvis. Im not sure if they will be able to fully visualizethis area with the current order. Do you want to order a CT of the chest as well? * Telephone Encounter - Ginger Farmer MA - 04/10/2022 10:30 AM CDT Please review. * Telephone Encounter - Laura Tapia NP - 04/10/2022 10:12 AM CDT Can you see if this can be added onto the notes in CT order * Telephone Encounter - Ginger Farmer MA - 04/10/2022 10:04 AM CDT Laura, please review message. * Telephone Encounter - Alida Doran - 04/10/2022 9:55 AM CDT Pt called and says he has a small mass in his chest, in the center,years ago. He said no one has looked at this for 2 to 3 years. He thinks this was found at [place]. He said it was biopsied at that time. Pt is unsure when this was done but he would like Laura to please be sure that is in the CT order as well. He says he was told it could grow. documented in this encounter Plan of Treatment Not on file documented as of this encounter Visit Diagnoses Not on filedocumented in this encounter Care Teams Jukebox Operator Relationship Specialty Start Date End Date Laura Tapia NP PCP - General Family Medicine 09/30/19 10/01/22 Mariaelena Zaidi MD Consulting Physician Sleep Medicine 07/12/21 documented as of this encounter
--- OUTSIDE RECORDS SUMMARY | 2024-09-17 12:53 | XMS_ITS | Encounter Summary ---
Author Organization [facility] Address [address] [place] [address] Care Team Providers Care Coordinator Volunteer Services Name Role Phone Laura Tapia NP Primary Care Provider [phone] Mariaelena Zaidi MD Unavailable Reason for Visit * Reason Comments Urinary issues Frequently, urinary tention Encounter Details Date Type Department Care Team (Late st Contact Info) Description 04/03/2022 4:00 PM CDT Office Visit [facility] Primary Care at [address] [place] [id number] Laura Tapia NP [address] [place] [address] Frequency of urination (Primary Dx); Incomplete emptying of bladder; Other microscopic hematuria; Class 2 obesity due to excess calories [...] on file 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 Gender Identity Not on file Sexual Orientation Not on file documented as of this encounter Last Filed Vital Signs Vital Sign Reading Time Taken Comments Blood Pressure 134/86 04/03/2022 3:53 PM CDT Pulse 64 04/03/2022 3:53 PM CDT Temperature 36.2 ??C (97.2 ??F) 04/03/2022 3:53 PM CD T Respiratory Rate 20 04/03/2022 3:53 PM CDT Oxygen Saturation 96% 04/03/2022 3:53 PM CDT Inhaled Oxygen Concentration - - Weight 127.5 kg (281 lb) 04/03/2022 3:53 PM CDT Height 188 cm (6' 2.02 ) 04/03/2022 3:53 PM CDT Body Mass Index 36.06 04/03/2022 3:53 PM CDT documented in this encounter Patient Instructions * Patient Instructions* Laura Tapia NP - 04/03/2022 4:00 PM CDT Frequency of urination (Primary) - POCT UA, AUTO W/O SCOPE Incomplete emptying of bladder Other microscopic hematuria CT abd/pelvis to rule out kidney stones. Refer to Chantal Carvajal NP urology at [facility] Continue on the flomax daily. Send urine for culture to make sure it is not growing bacteria that would need an antibiotic. (I don't think you have infection) documented in this encounter Progress Notes * Laura Tapia NP - 04/03/2022 4:00 PM CDT Images from the original note were not included. Subjective/Objective Patient ID: Jaden De La Torre is a 51 y.o. male. Assessment/Plan Diagnoses and all orders for this visit: Frequency of urination (Primary) - POCT UA, AUTO W/O SCOPE Incomplete emptying of bladder Other microscopic hematuria Class 2 obesity due to excess calories without serious comorbidity with body mass index (BMI) of 36.0 to 36.9 in adult Assessment & Plan: HPI: Condition is not at/near goal goal BMI <30 A&P: Healthy, high-protein, lower carbohydrate, lower fat lifestyle and exercise for 150min/week recommended Recommend tracking everything you put in your mouth on an olegario like [employer] Lower carb substitutions: Beth carries a zero net carb bread If [...] in much longer they will become mushy Grubbs and/or coconut flour instead of regular flour [...] pork rinds For yogurt, try Two Good mosotho yogurt Use Mercedes for recipe ideas. Type [...] fist size to an actual measuring cup. CT abd/pelvis to rule out kidney stones. Refer to Chantal Carvajal NP urology at [facility] Continue on the flomax daily. Send urine for culture to make sure it is not growing bacteria that would need an antibiotic. (I don't think you have infection) Thanks for coming in today. My medical records library professor, Cortney, and I are thankful you have trusted us with your care, and hope that you received EXCELLENT care today! Please do not hesitate to call if you have any questions or concerns at [phone]. You may receive a phone call or text asking about your care today. We would love to hear your input and again, hope your visit was as EXCELLENT as possible, even if you were not feeling your best! Follow up upon completion of workup Chief Complaint Urinary issues (Frequently, urinary tention) Urinary Frequency This is a recurrent problem. The current episode started more than 1 month ago. The problem occurs intermittently. The problem has been unchanged. There has been no fever. Associated symptoms includefrequency, hematuria and hesitancy. Associated symptoms comments: Incomplete emptying. Treatments tried: flomax. Review of Systems Constitutional: Negative for fever. Genitourinary: Positive for frequency, hematuria and hesitancy. BP 134/86 (BP Location: Right arm, Patient Position: Sitting) Pulse 64 Temp 36.2 ??C (97.2 ??F)(Temporal) Resp 20 Ht 188 cm (6' 2.02 ) Wt 127.5 kg (281 lb) SpO2 96% BMI 36.06 kg/m?? Physical Exam Constitutional: General: He is not in acute distress. Appearance: Normal appearance. He is obese. HENT: Head: Normocephalic. Right Ear: External ear normal. Left Ear: External ear normal. Nose: Nose normal. Eyes: Extraocular Movements: Extraocular movements intact. Pulmonary: Effort: Pulmonary effort is normal. Abdominal: General: Bowel sounds are normal. Palpations: Abdomen is soft. Tenderness: There is no abdominal tenderness. Musculoskeletal: General: Normal range of motion. Cervical back: Normal range of motion. Neurological: Mental Status: He is alert and oriented to person, place, and time. Psychiatric: Mood and Affect: Mood normal. Behavior: Behavior normal. Laura Tapia NP Please note: Voice recognition software SpeechCycle was used to dictate and transcribe this document. Ticket Sales Agent variances may occur. Despite proofreading, typographical errors may occur. documented in this encounter Miscellaneous Notes * Assessment & Plan Note - Laura Tapia NP - 04/03/2022 4:42 PM CDTAssociated Problem(s): Class 2 obesity due to excess calories without serious comorbidity with bodymass index (BMI) of 36.0 to 36.9 in adult (Resolved 11/12/2022) HPI: Condition is not at/near goal goal BMI <30 A&P: Healthy, high-protein, lower carbohydrate, lower fat lifestyle and exercise for 150min/week recommended Recommend tracking everything you put in your mouth on an olegario like [employer] Lower carb substitutions: Aldi carries a zero [...] in much longer they will become mushy Grubbs and/or coconut flour instead of regular flour [...] pork rinds For yogurt, try Two Good mosotho yogurt Use Pinterest for recipe ideas. Type [...] fist size to an actual measuring cup. * Addendum Note - Fior Calero - 04/03/2022 4:00 PM CDTAddended by: FIOR CALERO on: 04/04/2022 07:46 PM Modules accepted: Orders documented in this encounter Plan of Treatment Not on file documented as of this encounter Procedures Procedure Name Priority Date/Time Associated Diagnosis Comments POCT URINALYSIS, AUTO W/O SCOPE Routine 04/03/2022 4:04 PM CDT Frequency of urination documented in this encounter Results * Urine culture Urine, clean voided (04/04/2022 4:44 PM CDT) Report Final Report: Less than 100,000 colonies/mL (clinically insignificant growth based on current clinical standards) [facility] Comment:Testing performed by : [facility], [address] [place]., [address] Organism (CLINICALLY INSIGNIFICANT GROWTH [facility] Urine, clean voided 04/04/2022 4:44 PM CDT 04/05/2022 12:06 AM CDT Narrative [facility] - 04/06/2022 7:28 AM CDT Testing performed by [facility] Microbiology Laboratory ([phone]) Laura Tapia NP LAB MICROBIOLOGY - GENERAL ORDERABLES Final Result [facility] [id number] Department of Laboratories [place], [place] [id number] * (ABNORMAL) POCT UA, AUTO W/O SCOPE (04/03/2022 4:04 PM CDT) Color, Urine, POC Yellow Clarity, ur, POC Clear Clear Glucose, ur, POC Negative Negative MG/DL Bilirubin, ur, POC Negative Negative, Small, Moderate, Large Ketones, ur, POC Negative Negative Specific [place], POC 1.020 1.005 - 1.030 Blood, ur, POC Trace(A) Negative pH, ur, POC 6.0 5.0 - 8.0 Protein, ur, POC Negative Negative Urobilinogen, Urine, POC 0.2 mg/dL Leukocytes, ur, POC Trace(A) Negative Nitrite, ur, POC Negative Negative Appearance, fld Clear Clear Urine, clean voided 04/03/2022 4:04 PM CDT Laura Tapia NP POINT OF CARE TEST ORDERABL ES Final Result documented in this encounter Visit Diagnoses Diagnosis Frequency of urination- Primary Urinary frequency Incomplete emptying of bladder Incomplete bladder emptying Other microscopic hematuria Class 2 obesity due to excess calories without serious comorbidity with body mass index (BMI) of 36.0 to 36.9 in adult Frequency of urination Urinary frequency Incomplete emptying of bladder Incomplete bladder emptying documented in this encounter Care Teams Coordinator Volunteer Services Relationship Specialty Start Date End Date Laura Tapia NP PCP - General Family Medicine 09/30/19 10/01/22 Mariaelena Zaidi MD Consulting Physician Sleep Medicine 07/12/21 documented as of this encounter
--- OUTSIDE RECORDS SUMMARY | 2024-09-17 12:53 | XMS_ITS | Encounter Summary ---
Author Organization [facility] Medical Group Address [address] [place] [address] Care Team Providers Care Lode Miner Blasting Name Role Phone Laura Tapia NP Primary Care Provider [phone] Mariaelena Zaidi MD Unavailable Reason for Visit * Reason Onset Date Comments Overdue Labs 11/13/2021 Encounter Details Date Type Department Care Team (Late st Contact Info) Description 11/13/2021 Telephone [facility] [address] [place] [address] Laura Tapia NP [address] [place] [address] Overdue Labs Social History Tobacco Use Types Packs/Day Years [...] on file 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 LMOM to give the office a call back. HOLOGY ASSISTANT documented in this encounter Plan of Treatment Not on file documented as of this encounter Visit Diagnoses Not on filedocumented in this encounter Care Teams Lode Miner Blasting Relationship Specialty Start Date End Date Laura Tapia NP PCP - General Family Medicine 09/30/19 10/01/22 Mariaelena Zaidi MD Consulting Physician Sleep Medicine 07/12/21 documented as of this encounter
--- OUTSIDE RECORDS SUMMARY | 2024-09-17 12:53 | XMS_ITS | Encounter Summary ---
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 Gender Identity Not on file Sexual Orientation Not on file documented as of this encounter Miscellaneous Notes * Telephone Encounter - Cortney Long MA - 07/27/2021 2:00 PM CST Pt's Rhiannon ( on [facility] ) called and LMOM to call her back in regards to her and medications Called Rhiannon back @1:58 pm the # she left [phone] LVM to call the office back RT CUSTOMER SERVICE MANAGER documented in this encounter Plan of Treatment Not on file documented as of this encounter Visit Diagnoses Not on filedocumented in this encounter Care Teams Heart Specialist Relationship Specialty Start Date End Date Laura Tapia NP PCP - General Family Medicine 09/30/19 10/01/22 Mariaelena Zaidi MD Consulting Physician Sleep Medicine 07/12/21 documented as of this encounter
--- OUTSIDE RECORDS SUMMARY | 2024-09-17 12:53 | XMS_ITS | Encounter Summary ---
Author Organization [facility] Address [address] [place] [address] Care Team Providers Care Auditing Coder Name Role Phone Laura Tapia NP Primary Care Provider [phone] Mariaelena Zaidi MD Unavailable Reason for Visit * Reason Onset Date Comments Appointment 12/19/2021 Encounter Details Date Type Department Care Team (Late st Contact Info) Description 12/19/2021 Telephone [facility] Special[facility] [address] 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 documented in this encounter Plan of Treatment Not on file documented as of this encounter Visit Diagnoses Not on filedocumented in this encounter Care Teams Auditing Coder Relationship Specialty Start Date End Date Laura Tapia NP PCP - General Family Medicine 09/30/19 10/01/22 Mariaelena Zaidi MD Consulting Physician Sleep Medicine 07/12/21 documented as of this encounter
--- OUTSIDE RECORDS SUMMARY | 2024-09-17 12:53 | XMS_ITS | Encounter Summary ---
Author Organization [facility] Address [address] [place] [address] Care Team Providers Care Chief Innovation Officer Name Role Phone Laura Tapia NP Primary Care Provider [phone] Mariaelena Zaidi MD Unavailable Reason for Visit * Reason Onset Date Comments Appointment 01/31/2022 Encounter Details Date Type Department Care Team (Late st Contact Info) Description 01/31/2022 Telephone [facility] [address] [facility] [address], [place] [address] [place] [id number] [place] [address] [address], [place] [address] Appointment Social History Tobacco Use [...] on file 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 Patient was very unhappy he stated I have called off work twice for these appts being rescheduled and I can get fired cursing. I did apologize the conversation ended with the patient hanging up. documented in this encounter Plan of Treatment Not on file documented as of this encounter Visit Diagnoses Not on filedocumented in this encounter Care Teams Chief Innovation Officer Relationship Specialty Start Date End Date Laura Tapia NP PCP - General Family Medicine 09/30/19 10/01/22 Mariaelena Zaidi MD Consulting Physician Sleep Medicine 07/12/21 documented as of this encounter
--- OUTSIDE RECORDS SUMMARY | 2024-09-17 12:53 | XMS_ITS | Encounter Summary ---
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 Dx: Urinary frequency, incomplete emptying, hematuria documented in this encounter Plan of Treatment Not on file documented as of this encounter Visit Diagnoses Not on filedocumented in this encounter Care Teams Analysis Mgr Relationship Specialty Start Date End Date Laura Tapia NP PCP - General Family Medicine 09/30/19 10/01/22 Mariaelena Zaidi MD Consulting Physician Sleep Medicine 07/12/21 documented as of this encounter
--- OUTSIDE RECORDS SUMMARY | 2024-09-17 12:53 | XMS_ITS | Encounter Summary ---
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 ET MANAGER * Telephone Encounter - Denia Glasgow MA - 10/03/2021 1:23 PM CST Attempted to contact Jaden with no answer. LMOM to contact the office back. ET MANAGER * Telephone Encounter - Laura Tapia NP - 10/03/2021 11:50 AM OUTLET MANAGER Treat symptomatically Tylenol/ibuprofen as needed Increase fluids, rest and handwashing Warm saltwater gargles Hot water/hot tea with honey 1 teaspoon of honey every 4 hours Saline rinses to nose at least twice daily No sharing cups or utensils Cool mist humidifier May use vicks vaporub on chest and feet as needed to help with cough Replace toothbrush in 5 days Wash pillow and bedlinens I am more than happy to send in tessalon perles for daytime cough and promethazine syrup at bedtimeif he needs them. Laura ET MANAGER * Telephone Encounter - Cortney Long MA - 10/03/2021 11:21 AM CST Was Dx W/ covid 2 weeks ago and is still having the cough in his chest and lungs. No production W/ the cough and no other sx. Advised Pt that the cough from covid can last 6-8 wk after symptoms start. Pt just wants to make sure this doesn't go into pneumonia . Pt stated that if it continues he will call the office ET MANAGER documented in this encounter Plan of Treatment Not on file documented as of this encounter Visit Diagnoses Not on filedocumented in this encounter Care Teams Rubber Goods Inspector Tester Relationship Specialty Start Date End Date Laura Tapia NP PCP - General Family Medicine 09/30/19 10/01/22 Mariaelena Zaidi MD Consulting Physician Sleep Medicine 07/12/21 documented as of this encounter
--- OUTSIDE RECORDS SUMMARY | 2024-09-17 12:53 | XMS_ITS | Encounter Summary ---
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 Gender Identity Not on file Sexual Orientation Not on file documented as of this encounter Plan of Treatment Not on file documented as of this encounter Procedures Procedure Name Priority Date/Time Associated Diagnosis Comments URINE CULTURE Routine 04/04/2022 4:44 PM CDT Frequency of urination Incomplete emptying of bladder documented in this encounter Results * Urine culture Urine, clean voided (04/04/2022 4:44 PM CDT) Report Final Report: Less than 100,000 colonies/mL (clinically insignificant growth based on current clinical standards) [facility] Comment:Testing performed by : [facility], [address] [place]., [address] Organism (CLINICALLY INSIGNIFICANT GROWTH [facility] Urine, clean voided 04/04/2022 4:44 PM CDT 04/05/2022 12:06 AM CDT Narrative [facility] - 04/06/2022 7:28 AM CDT Testing performed by [facility] ([phone]) Laura Tapia NP LAB MICROBIOLOGY - GENERAL ORDERABLES Final Result [facility] [id number] Department [place] [address] documented in this encounter Visit Diagnoses Diagnosis Frequency of urination Urinary frequency Incomplete emptying of bladder Incomplete bladder emptying documented in this encounter Care Teams Sander Wooden Pencils Relationship Specialty Start Date End Date Laura Tapia NP PCP - General Family Medicine 09/30/19 10/01/22 Mariaelena Zaidi MD Consulting Physician Sleep Medicine 07/12/21 documented as of this encounter
--- OUTSIDE RECORDS SUMMARY | 2024-09-17 12:53 | XMS_ITS | Encounter Summary ---
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 LY SPECIALIST documented in this encounter Plan of Treatment Not on file documented as of this encounter Visit Diagnoses Not on filedocumented in this encounter Care Teams Breaker Mechanic Relationship Specialty Start Date End Date Laura Tapia NP PCP - General Family Medicine 09/30/19 10/01/22 Mariaelena Zaidi MD Consulting Physician Sleep Medicine 07/12/21 documented as of this encounter
--- OUTSIDE RECORDS SUMMARY | 2024-09-17 12:53 | XMS_ITS | Encounter Summary ---
Author Organization [facility] Address [address] [place] [address] Care Team Providers Care Timber Framer Helper Name Role Phone Laura Tapia NP Primary Care Provider [phone] Mariaelena Zaidi MD Unavailable Reason for Visit * Reason Onset Date Comments Sleep Study 07/17/2021 Encounter Details Date Type Department Care Team (Late st Contact Info) Description 07/17/2021 Telephone [facility] Sleep Medicine at [address] [place] [phone] Yolanda Machado MA Sleep Study Social History Tobacco Use Types Packs/Day Years [...] on file 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 CONSULTANT * Telephone Encounter - Yolanda Machado MA - 07/18/2021 3:04 PM CST Will you try calling this patient again? CONSULTANT * Telephone Encounter - Yolanda Machado MA - 07/17/2021 1:19 PM CST Attempted to reach Rhiannon twice with no answer or vm. Left message for Jaden to return our call. CONSULTANT * Telephone Encounter - Mariaelena Zaidi MD - 07/17/2021 1:11 PM CST Looks like he no showed last apt. 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 Will send Rx for APAP 5-16 cm of water to [facility]. CONSULTANT * Telephone Encounter - Yolanda Machado MA - 07/17/2021 12:50 PM CST Please advise [employer] message on 06/29. [facility] sleep lab states that he will be going on a hunting trip so he would like you to contact his about his study results. Would you like me to call her and set up a HST f/u? It looks like he No Showed his last visit. CONSULTANT documented in this encounter Plan of Treatment Not on file documented as of this encounter Visit Diagnoses Not on filedocumented in this encounter Care Teams Timber Framer Helper Relationship Specialty Start Date End Date Laura Tapia NP PCP - General Family Medicine 09/30/19 10/01/22 Mariaelena Zaidi MD Consulting Physician Sleep Medicine 07/12/21 documented as of this encounter
--- OUTSIDE RECORDS SUMMARY | 2024-09-17 12:54 | XMS_ITS | Encounter Summary ---
Author Organization [facility] Healthcare Address [address] [place] [address] Care Team Providers Care Cylinder Dyer Name Role Phone Laura Tapia NP Primary Care Provider [phone] Reason for Referral * Sleep Medicine (Routine) - Closed Specialty Diagnoses / Procedures Referred By Zaida camacho Referred To Contact Diagnoses Obstructive sleep apnea syndrome Procedures Portable/Home Sleep Study Mariaelena Zaidi MD Phone: tel: [address] [phone] Referral ID Status Reason Start Date Expiration Date Visits Re quested Visits Authorized [id number] Closed 05/17/2021 06/16/2022 1 1 Reason for Visit * Sleep Medicine (Routine) - Closed Specialty Diagnoses / Procedures Referred By Zaida camacho Referred To Contact Diagnoses Obstructive sleep apnea syndrome Procedures Portable/Home Sleep Study Mariaelena Zaidi MD Phone: tel: [address] [phone] Referral ID Status Reason Start Date Expiration Date Visits Re quested Visits Authorized [id number] Closed 05/17/2021 06/16/2022 1 1 Encounter Details Date Type Department Care Team (Latest Contact Info) Description 05/30/2021 4:00 PM CDT - 05/30/2021 11:59 PM CDT Hospital Encounter [facility] [address] [place] [id number] Mariaelena Zaidi MD [address] [place] [id number] Obstructive sleep apnea syndrome Discharge Disposition: Discharge to home or self [...] on file 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 Gender Identity Not on file Sexual Orientation Not on file documented as of this encounter Medications at Time of Discharge buPROPion XL (WELLBUTRIN XL) 300 mg 24 hr tablet Take 1 tablet (300 mg total) by mouth every morning 14 tablet 05/11/2021 1 lisinopriL (PRINIVIL,ZESTRIL) 5 mg tabletIndications:Es sential hypertension TAKE 1 TABLET DAILY 90 tablet 3 01/13/2021 2 metoprolol XL (TOPROL-XL) 25 mg extended release tabletIndications:Es sential hypertension TAKE 1 TABLET DAILY 90 tablet 3 01/13/2021 2 pramipexole (MIRAPEX) 1.5 mg tabletIndications:Re stless legs syndrome Take 1 tablet (1.5 mg total) by mouth 3 (three) times a day 90 tablet 03/29/2020 2 pravastatin (PRAVACHOL) 40 mg tabletIndications:Hy perlipidemia, unspecified hyperlipidemia type Take 1 tablet (40 mg total) by mouth daily 90 tablet 03/29/2021 1 documented as of this encounter Discharge Disposition Disposition Code Departure Means Destination Discharge to home or self care documented in this encounter Progress Notes * Mariaelena Zaidi MD - 05/30/2021 4:00 PM CDT HOME SLEEP APNEA TEST HISTORY: Jaden De La Torre is a 50 y.o. male who presents for Home sleep apnea test. (HSAT). Reason for sleep study: Obstructive sleep apnea Past medical history: obstructive sleep apnea, hypertension, hyperlipidemia, obesity, anxiety Current medications: reviewed [place] Sleepiness Score: 13 BMI: 35.23 PROCEDURE: This is a single night diagnostic study. This Home Sleep apnea Test (HSAT) utilized an unattended FDA approved RedAsteres apnea link home air portable monitoring device investigating for obstructive sleep apnea. The patient was proved instruction of the device and application by the registered polysomno graphy technologist at the [facility]. This test was performed without a veterinary surgery technologist in attendance. In this study, the following parameters were monitored: Terrell-nasal airflow, snoring, chest respiratory effort, abdominal respiratory effort, body position, movement, oxygen saturation, and heart rate. Respiratory events are scored according to the criteria from [employer] [place] [employer] (AASM) Manual for the scoring of sleep and associated events - version 2.6. FINDINGS: The recorded bed time starts at 10:24 pm. The total recording duration is 6:51 hours. The respiratory events (RE) included 277 apneas and 126 hypopneas. The total Respiratory event index (ROLLY) was 66.2/hour. Obstructive apnea index was 45.2, central apnea index was 0.2, mixed apnea index was 0.2. Lowest SpO2 was 83 % and time spent < 88% was 0:08hours. Oxygen desaturation index was 67.1. Patient spent 3:36 hours in supine and 2:21 hours in non-supine position. Average heart rate was 63/min, minimum heart rate was 55/min, and maximum heart rate was 87/min. INTERPRETATION: This is an adequate quality Home Sleep apnea Test. (HSAT) 1. This home sleep apnea test is positive for severe obstructive sleep apnea with Respiratory EventIndex (equivalent of Apnea Hypopnea Index) of 66.2 /hour. RECOMMENDATIONS: 1. Based on the findings of this home sleep test, the patient has severe obstructive sleep apnea. Treatment with Positive Airway Pressure (PAP) devices such as continuous PAP (CPAP), auto-adjusting PAP (APAP), and bi-level PAP (Bi- PAP) as soon as possible is recommended. Consider CPAP titration study to determine the optimal pressure required to alleviate sleep disordered breathing. 2. Obesity, hypothyroidism or obstructive/structural abnormalities in the upper airway can be contributory to obstructive sleep apnea/hypopnea. An evaluation and management of these factors should beconsidered. 3. Hypnotics and sedatives can worsen the sleep apnea, hence should be avoided. 4. Patients with sleep apnea may have excessive daytime sleepiness. Patients should avoid driving, if drowsy or sleepy. 5. Weight loss for ideal body weight range is recommended. Limitations of the study: 1. A sleep EEG was not recorded; therefore, the actual amount of time spent in sleep, stages of sleep and respiratory events associated with arousals cannot be determined by this study. 2. All indexes are computed against monitoring time, not total sleep time. For this reason, the degree of severity may be underestimated * Please note: The severity of the sleep apnea may vary from night to night depending on body position during sleep, REM sleep and sleep efficiency. These factors should be taken into consideration. Mariaelena Zaidi MD [facility] Sleep Medicine documented in this encounter Miscellaneous Notes * Addendum Note - Aristeo Oro MD - 05/30/2021 4:00 PM CDTEncounter addended by: Aristeo Oro MD on: 06/13/2021 1:21 PM Actions taken: Result filed documented in this encounter Plan of Treatment Not on file documented as of this encounter Procedures Procedure Name Priority Date/Time Associated Diagnosis Comments PORTABLE/HOME SLEEP STUDY Routine 06/13/2021 Obstructive sleep apnea syndrome documented in this encounter Results * Portable/Home Sleep Study (06/13/2021) Impressions Aristeo Oro MD - 06/13/2021 HOME SLEEP APNEA TEST ?? HISTORY: Jaden De La Torre is a 50 y.o. male who presents for Home sleep apnea test. (HSAT). Reason for sleep study: ??Obstructive sleep apnea Past medical history: obstructive sleep apnea, hypertension, hyperlipidemia, obesity, anxiety Current medications: reviewed [place] Sleepiness Score: 13 BMI: 35.23 ?? PROCEDURE: This is a single night diagnostic study. This Home Sleep apnea Test (HSAT) utilized an unattended FDA approved RedAsteres apnea link home air portable monitoring device investigating for obstructive sleep apnea. The patient was proved instruction of the device and application by the registered photo technologist at the [facility]. This test was performed without a veterinary surgery technologist in attendance. In this study, the following parameters were monitored: Terrell-nasal airflow, snoring, chest respiratory effort, abdominal respiratory effort, body position, movement, oxygen saturation, and heart rate. Respiratory events are scored according to the criteria from The [employer] [place] [employer] [place] [employer] Medicine (AASM) Manual for the scoring of sleep and associated events - version 2.6. ?? FINDINGS: The recorded bed time starts at 10:24 pm. The total recording duration is 6:51 hours. The respiratory events (RE) included 277 apneas and 126 hypopneas. The total Respiratory event index (ROLLY) was 66.2/hour. Obstructive apnea index was 45.2, central apnea index was 0.2, mixed apnea index was 0.2. Lowest SpO2 was 83 % and time spent < 88% was 0:08hours. Oxygen desaturation index was 67.1. Patient spent 3:36 hours in supine and 2:21 hours in non-supine position. Average heart rate was 63/min, minimum heart rate was 55/min, and maximum heart rate was 87/min. ?? INTERPRETATION: This is an adequate quality Home Sleep apnea Test.??(HSAT) ?? 1. This home sleep apnea test is positive for severe obstructive sleep apnea with Respiratory Event Index (equivalent of Apnea Hypopnea Index) of 66.2 /hour. ?? RECOMMENDATIONS: ?? 1. Based on the findings of this home sleep test, the patient has severe obstructive sleep apnea. Treatment with Positive Airway Pressure (PAP) devices such as continuous PAP (CPAP), auto-adjusting PAP (APAP), and bi-level PAP (Bi-PAP) as soon as possible is recommended. Consider CPAP titration study to determine the optimal pressure required to alleviate sleep disordered breathing. ?? 2. Obesity, hypothyroidism or obstructive/structural abnormalities in the upper airway can be contributory to obstructive sleep apnea/hypopnea. An evaluation and management of these factors should be considered. ?? 3. Hypnotics and sedatives can worsen the sleep apnea, hence should be avoided. ?? 4. Patients with sleep apnea may have excessive daytime sleepiness. Patients should avoid driving, if drowsy or sleepy. ?? 5. Weight loss for ideal body weight range is recommended. ? Limitations of the study: 1. A sleep EEG was not recorded; therefore, the actual amount of time spent in sleep, stages of sleep and respiratory events associated with arousals cannot be determined by this study. 2. All indexes are computed against monitoring time, not total sleep time. For this reason, the degree of severity may be underestimated ? * Please note: The severity of the sleep apnea may vary from night to night depending on body position during sleep, REM sleep and sleep efficiency. These factors should be taken into consideration.? Mariaelena Zaidi MD [facility] Sleep Medicine ?? Narrative Aristeo Oro MD - 06/13/2021 Ocst is ready for review us Mariaelena Zaidi MD SLEEP CENTER ORDERABLES Final Re sult documented in this encounter Visit Diagnoses Diagnosis Obstructive sleep apnea syndrome Obstructive sleep apnea (adult) (pediatric) documented in this encounter Care Teams Cylinder Dyer Relationship Specialty Start Date End Date Laura Tapia NP PCP - General Family Medicine 09/30/19 10/01/22 documented as of this encounter
--- OUTSIDE RECORDS SUMMARY | 2024-09-17 12:54 | XMS_ITS | Encounter Summary ---
Author Organization [facility] Medical [facility] Address [address] [place] [address] Care Team Providers Care Community Mental Health Worker Name Role Phone Laura Tapia NP Primary Care Provider [phone] Encounter Details Date Type Department Care Team (Late st Contact Info) Description 06/06/2021 Telephone [facility] [address] [place] [address] Laura Tapia NP [address] [place] [id number] Social History Tobacco Use Types Packs/Day Years [...] on file 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 EPOXY SPECIALIST Gender Identity Not on file Sexual Orientation Not on file documented as of this encounter Miscellaneous Notes * Telephone Encounter - Ginger Farmer MA - 06/06/2021 12:12 PM CDT Jaden has been informed. * Telephone Encounter - Laura Tapia NP - 06/06/2021 11:56 AM CDT Sleep study results can take about 6 wks to come back and they will be given by the provider that ordered it. I think he is seeing Dr. Zaidi. * Telephone Encounter - Steven Paige MA - 06/06/2021 11:49 AM CDT Patient called and asked if we could give him a call back. Returned patient call and he stated that he had a sleep study performed yesterday and no one calledhim about the results. I stated that I would relay the message and once it is reviewed I would givehim a call back. Please advise. documented in this encounter Plan of Treatment Not on file documented as of this encounter Visit Diagnoses Not on filedocumented in this encounter Care Teams Community Mental Health Worker Relationship Specialty Start Date End Date Laura Tapia NP PCP - General Family Medicine 09/30/19 10/01/22 documented as of this encounter
--- OUTSIDE RECORDS SUMMARY | 2024-09-17 12:54 | XMS_ITS | Encounter Summary ---
Author Organization [facility] Address [address] [facility] [address] [place] [address] Care Team Providers Care Supervisor Transferring And Boxing Name Role Phone Laura Tapia NP Primary Care Provider [phone] Reason for Referral * Procedure (Routine) - Closed Specialty Diagnoses / Procedures Referred By Contac t Referred To Contact Diagnoses Other tear of medial meniscus of left knee as current injury, initial encounter Procedures Large Joint (Hip, Knee, Shoulder) Injection: L knee Clem Bedoya MD [address] [facility] [address] DIDIER Hong [address] [address] Phone: tel: fax: [facility] Referral ID Status Reason Start Date Expiration Date Visits Re quested Visits Authorized [id number] Closed 06/28/2021 07/28/2022 1 1 Reason for Visit * Reason Comments Pain Encounter Details Date Type Department Care Team (Late st Contact Info) Description 06/28/2021 3:00 PM CDT Office Visit [facility] Orthopedic and Sports Medicine [address] [place] [phone] Clem Bedoya MD [address] [facility] [address] DIDIER Hong [facility] [address] [place] [address] Other tear of medial meniscus of left knee as current injury, initial encounter (Primary Dx) Social History Tobacco Use Types [...] on file 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 Gender Identity Not on file Sexual Orientation Not on file documented as of this encounter Last Filed Vital Signs Vital Sign Reading Time Taken Comments Blood Pressure 125/81 06/28/2021 3:45 PM CDT Pulse 68 06/28/2021 3:45 PM CDT Temperature - - Respiratory Rate - - Oxygen Saturation - - Inhaled Oxygen Concentration - - Weight 124.3 kg (274 lb) 06/28/2021 3:45 PM CDT Height 188 cm (6' 2 ) 06/28/2021 3:45 PM CDT Body Mass Index 35.18 06/28/2021 3:45 PM CDT documented in this encounter Ordered Prescriptions Prescription Sig Dispense Quantity Refills Last Filled Start Date End Date meloxicam (MOBIC) 15 mg tablet Take 1 tablet (15 mg total) by mouth daily 30 tablet 06/28/2021 06/28/2022 documented in this encounter Progress Notes * Clem Bedoya MD - 06/28/2021 3:00 PM CDTAssociated Order(s): Large Joint (Hip, Knee, Shoulder) Injection: L knee Post-Procedure Diagnose(s): Other tear of medial meniscus of left knee as current injury, initial encounter Images from the original note were not included. NEW PATIENT VISIT This patient has been reviewed and COVID-19 risk has been assessed. Based on our clinical judgement, we find it appropriate to see this patient in clinic today. Our staff performed proper precautionsand wore appropriate PPE when caring for this patient in office today. Both myself and the patient wore a mask throughout the visit. The patient understands current COVID-19 risks and wished to be seen today. Subjective CHIEF COMPLAINT He had concerns including Pain of the Left Knee. HISTORY OF PRESENT ILLNESS Left knee pain recently gotten worse. Not sure what started the problem is pain is sharp and severeget off his feet makes it better bending down makes it worse pain is activity related unpredictable. He recent MRI showed a medial meniscus tear but symptoms laterally he is here for surgical consultation. 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 Pain Assessment Pain Assessment: 0-10 Pain Score: 3 PAST MEDCIAL HISTORY He has a past medical history of Anxiety disorder, Depression, Diabetes mellitus (HCC), Erectile dysfunction, GERD (gastroesophageal reflux disease), Hemorrhoids, Hyperlipidemia, Hypertension, Palpitation, and Sleep apnea. He also has no past medical history of Anemia, Asthma, Blood clot associatedwith vein wall inflammation, Cancer (CMS/HCC) ([facility]), CHF (congestive heart failure) (CMS/HCC) ([facility]), COPD (chronic obstructive pulmonary disease) (CMS/HCC) ([facility]), Coronary artery disease, History of chemotherapy, Liver disease, Seizures (CMS/HCC) ([facility]), or Stroke ([facility]/HCC) ([facility]). PAST SURGICAL HISTORY He has a past surgical history that includes Shoulder surgery; Carpal tunnel release; IR Biopsy Abdomen Retroperitoneal (N/A, 02/06/2019); Band hemorrhoidectomy; Knee arthroscopy (Right, 02/2006); andColonoscopy (08/26/2020). MEDICATIONS He has a current medication list which includes the following prescription(s): bupropion xl, lisinopril, metoprolol xl, pramipexole, pravastatin, and meloxicam. ALLERGIES He has No Known Allergies. SOCIAL HISTORY He reports that he has never smoked. He quit smokeless tobacco use about 2 years ago. His smokelesstobacco use included chew. He reports current alcohol use. He reports that he does not use drugs. FAMILY HISTORY His family history includes Hypertension in his mother; Leukemia in his mother; Throat cancer in his father. REVIEW OF SYSTEMS Review of Systems Constitutional: Negative for activity change, appetite change, chills and fever. HENT: Negative for congestion, dental problem, ear pain, hearing loss and voice change. Eyes: Negative for pain and visual disturbance. Respiratory: Negative for apnea, cough, chest tightness and shortness of breath. Cardiovascular: Negative for chest pain, palpitations and leg swelling. Gastrointestinal: Negative for blood in stool, constipation, diarrhea, nausea and vomiting. Endocrine: Negative for cold intolerance and heat intolerance. Genitourinary: Negative for difficulty urinating and hematuria. Skin: Negative for color change, rash and wound. Allergic/Immunologic: Negative for environmental allergies. Neurological: Negative for dizziness, syncope, numbness and headaches. Hematological: Negative for adenopathy. Does not bruise/bleed easily. Psychiatric/Behavioral: Negative for confusion. The patient is not nervous/anxious and is not hyperactive. Objective PHYSICAL EXAM BP 125/81 Pulse 68 Ht 188 cm (6' 2 ) Wt 124.3 kg (274 lb) BMI 35.18 kg/m?? Right knee Inspection The patient has normal inspection of the right knee. Gait: normal Palpation The patient has normal palpation of the right knee. Range of motion The patient has normal range of motion of the right knee. The patient does not have pain with range of motion of the right knee. Stability The patient has normal AP and ML stability of the right knee. Anterior drawer: negative Strength The patient has 5/5 strength thoughout right knee. Neurovascular The patient has normal vascular on the right side of their body. The patient has normal sensation on the right side of their body. Special tests Chapito: medial negative lateral positive Left knee Inspection The patient has normal inspection of the left knee. Gait: normal Palpation Tenderness: present. The tenderness is located in the lateral joint line. Range of motion The patient has normal range of motion of the left knee. The patient has pain with range of motion of the left knee. Stability The patient has normal AP and ML stabiltiy of the left knee. Anterior drawer: negative Strength The patient has 5/5 strength throughout. Knee extension: 5/5 Knee flexion: 5/5 Neurovascular The patient has normal vascular on the left side of their body. The patient has normal sensation on the left side of their body. Special tests Chapito: medial negative lateral positive REVIEW OF X-RAYS/STUDIES/LABS REASON FOR STUDY: Lateral right knee pain for 8 months. ?? TECHNIQUE: Multiplanar, multisequence MRI of the right knee was performed. ?? COMPARISON: None available. ?? FINDINGS: ?? Joint and Bursae: Trace knee joint effusion. Tiny Talbot's cyst, which extends superiorly as a multilobulated ganglion cyst, measuring up to 2.5 cm in the craniocaudal dimension. ?? Bones: No fracture. ?? Cartilage: ?? Patellofemoral: Mild to moderate chondrosis, with small full-thickness chondral defect involving the lateral femoral condyle, with underlying subchondral marrow edema. ?? Medial compartment: No chondromalacia. ?? Lateral Compartment: No chondromalacia. ?? Ligaments: The ACL, PCL, and MCL and lateral collateral ligament complex are intact. ?? Extensor Mechanism: The quadriceps and patellar tendons are intact. The medial and lateral patellar retinacula are intact. ?? Tendons/Soft tissues: The popliteus tendon is intact. The musculature is intact without evidence of tear. The popliteal neurovascular bundle is unremarkable. ?? Posterolateral Corner: Intact. ?? Medial Meniscus: Nondisplaced horizontal undersurface tear of the posterior horn medial meniscus. ?? Lateral Meniscus: The lateral meniscus is intact. ?? Other: No other finding. ? IMPRESSION: ?? 1. Nondisplaced horizontal undersurface tear of the posterior horn left medial meniscus. ?? 2. [id number] left patellofemoral compartment chondrosis, with small full-thickness chondral defect of the lateral left femoral condyle. ?? 3. Intact left knee lateral meniscus, cruciate, and collateral ligaments. Assessment/Plan Jaden was seen today for pain. Diagnoses and all orders for this visit: Other tear of medial meniscus of left knee as current injury, initial encounter - Ambulatory referral order to Physical Therapy -; Future - Large Joint (Hip, Knee, Shoulder) Injection: L knee Other orders - meloxicam (MOBIC) 15 mg tablet; Take 1 tablet (15 mg total) by mouth daily Large Joint (Hip, Knee, Shoulder) Injection: L knee Performed by: Clem Bedoya MD Authorized by: Clem Bedoya MD Large Joint Injection/Aspiration: Consent Given by: Patient Timeout: prior to procedure the correct patient, procedure, and site was verified Verbal consent obtained: Yes Supporting Documentation: Indications: Pain, joint swelling and diagnostic evaluation Procedure Details: Location: Knee Site: L knee Prep: patient was prepped and draped in usual sterile fashion Needle Size: 22 G Approach: Lateral Medications: 80 mg methylPREDNISolone acetate 80 mg/mL; 3 mL lidocaine 20 mg/mL (2 %) PLAN Three 1 injection today. Mobic once a day for the next 7 days p.r.n.. PT recommend decreasing BMI pop when the PAs to 3 months to re-evaluate all his symptoms are laterally Recommend the patient to see a weight loss specialist or a weight loss surgeon recommend decreasingBMI below 30. ANU Valdez MD documented in this encounter Plan of Treatment Not on file documented as of this encounter Procedures Procedure Name Priority Date/Time Associated Diagnosis Comments NE ARTHROCENTESIS ASPIR&/INJ MAJOR JT/BURSA W/O US Routine 06/28/2021 3:00 PM CDT Other tear of medial meniscus of left knee as current injury, initial encounter documented in this encounter Results * NE ARTHROCENTESIS ASPIR&/INJ MAJOR JT/BURSA W/O US (06/28/2021 3:00 PM CDT) Narrative Clem Bedoya MD - 06/28/2021 3:00 PM CDT Clem Bedoya MD ? 06/28/2021 ??5:31 PM Large Joint (Hip, Knee, Shoulder) Injection: L knee Performed by: Clem Bedoya MD Authorized by: Clem Bedoya MD Large Joint Injection/Aspiration: ??Consent Given by: ??Patient ??Timeout: prior to procedure the correct patient, procedure, and site was verified ?Verbal consent obtained: Yes ?? Supporting Documentation: ??Indications: ??Pain, joint swelling and diagnostic evaluation Procedure Details: ??Location: ??Knee ??Site: ??L knee ??Prep: patient was prepped and draped in usual sterile fashion ?Needle Size: ??22 G ??Approach: ??Lateral ??Medications: ??80 mg methylPREDNISolone acetate 80 mg/mL; 3 mL lidocaine 20 mg/mL (2 %) Clem Bedoya MD IN CLINIC/BEDSIDE ORDERABLES Final Result documented in this encounter Visit Diagnoses Diagnosis Other tear of medial meniscus of left knee as current injury, initial encounter- Primary documented in this encounter Administered Medications Inactive Administered Medications - up to 3 most recent administrations Medication Order MAR Action Action Date Dose Rate Site lidocaine (XYLOCAINE) 20 mg/mL (2 %) injection 3 mL 3 mL, One-Time Injection, Starting on Sat06/28/21 at 1731, For 1 dose, Indications: Administration of Local AnesthesiaIndications:Administratio n of Local Anesthesia Given 06/28/2021 5:31 PM CDT 3 mL methylPREDNISolone acetate (DEPO-medrol) injection 80 mg 80 mg, intra-articular, One-Time Injection, Starting on Sat06/28/21 at 1731, For 1 doseIndications:Other tear of medial meniscus of left knee as current injury, initial encounter Given 06/28/2021 5:31 PM CDT 80 mg documented in this encounter Care Teams Supervisor Transferring And Boxing Relationship Specialty Start Date End Date Laura Tapia NP PCP - General Family Medicine 09/30/19 10/01/22 documented as of this encounter
--- OUTSIDE RECORDS SUMMARY | 2024-09-17 12:54 | XMS_ITS | Encounter Summary ---
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 Gender Identity Not on file Sexual Orientation Not on file documented as of this encounter Discharge Disposition Disposition Code Departure Means Destination Discharge to home or self care documented in this encounter Plan of Treatment Not on file documented as of this encounter Procedures Procedure Name Priority Date/Time Associated Diagnosis Comments IRON PROFILE W/ IBC Routine 05/19/2021 3 :19 PM CDT Elevated ferritin FOLATE Routine 05/19/2021 3:19 PM CDT Elevated ferritin VITAMIN B12 Routine 05/19/2021 3:19 PM CDT Elevated ferritin documented in this encounter Results * Iron profile w/ IBC (05/19/2021 3:19 PM CDT) Iron 103 50 - 150 mcg/dL [facility] ([place] TIBC 373 250 - 400 mcg/dL [facility] ([place]) Transferrin saturation 28 20 - 50 % [facility] ([place]) Blood 05/19/2021 3:19 PM CDT 05/19/2021 7:19 PM CDT us Laura Tapia SPARERIBS TRIMMER LAB BLOOD ORDERABLES Final Result [facility] ([place]) 1 [facility] Department [place] [address] * Vitamin B12 (05/19/2021 3:19 PM CDT) Pathologist [facility] Vitamin B12 350 230 - 1,250 pg/mL [facility] ([place]) Comment:Testing performed by : [facility], [address] [place] [address], [address] Blood 05/19/2021 3:19 PM CDT 05/20/2021 1:19 PM CDT Laura Tapia SPARERIBS TRIMMER LAB BLOOD ORDERABLES Final Result [facility] ([place]) 1 [facility] [place] [address] * Folate (05/19/2021 3:19 PM CDT) Folic acid 16.2 >=5.0 ng/mL [facility] ([place]) Comment: Hemolysis present. ??Results may be affected. Testing performed by: [facility], [address] [place] [address], [place]., [address] Blood 05/19/2021 3:19 PM CDT 05/20/2021 1:19 PM CDT us Laura Tapia NP LAB BLOOD ORDERABLES Final Result [facility] 1 [facility] Department [place] [address] documented in this encounter Visit Diagnoses Diagnosis Elevated ferritin Other abnormal blood chemistry documented in this encounter Care Teams Boiler Maker Relationship Specialty Start Date End Date Laura Tapia NP PCP - General Family Medicine 09/30/19 10/01/22 documented as of this encounter
--- OUTSIDE RECORDS SUMMARY | 2024-09-17 12:54 | XMS_ITS | Encounter Summary ---
Author Organization [facility] Address [address] [facility] [address] [place] [address] Care Team Providers Care Range Management Specialist Name Role Phone Laura Tapia DATASTAGE CONSULTANT Primary Care Provider [phone] Encounter Details Date Type Department Care Team (Late st Contact Info) Description 05/18/2021 Orders Only [facility] [address] [place] [address] Laura Tapia, DATASTAGE CONSULTANT [address] [place] [id number] Elevated ferritin (Primary Dx) Social History Tobacco Use Types [...] on file 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 ??Results may be affected. Testing performed by: [facility], [address] [place] [address]., [id number] Blood 05/19/2021 3:19 PM CDT 05/20/2021 1:19 PM CDT us Laura Tapia DATASTAGE CONSULTANT LAB BLOOD ORDERABLES Final Result [facility] ([place]) 1 [facility] [place] [address] * Vitamin B12 (05/19/2021 3:19 PM CDT) Vitamin B12 350 230 - 1,250 pg/mL [facility] ([place]) Comment:Testing performed by : [facility], [address] [place] [address]., [id number] Blood 05/19/2021 3:19 PM CDT 05/20/2021 1:19 PM CDT us Laura Tapia DATASTAGE CONSULTANT LAB BLOOD ORDERABLES Final Result Performing Organization Address [facility]/ZIP Co de Phone Number [facility] ([place]) [address] [facility] [place] [address] * Iron profile w/ IBC (05/19/2021 3:19 PM CDT) Iron 103 50 - 150 mcg/dL [facility] ([place]) TIBC 373 250 - 400 mcg/dL [facility] ([place]) Transferrin saturation 28 20 - 50 % [facility] ([place]) Blood 05/19/2021 3:19 PM CDT 05/19/2021 7:19 PM CDT us Laura Tapia DATASTAGE CONSULTANT LAB BLOOD ORDERABLES Final Result [facility] ([place]) [address] [facility] [place] [address] documented in this encounter Visit Diagnoses Diagnosis Elevated ferritin- Primary Other abnormal blood chemistry documented in this encounter Care Teams Range Management Specialist Relationship Specialty Start Date End Date Laura Tapia NP PCP - General Family Medicine 09/30/19 1 documented as of this encounter
--- OUTSIDE RECORDS SUMMARY | 2024-09-17 12:55 | XMS_ITS | Encounter Summary ---
Author Organization [facility] Address [address] [facility] [address] [place] [address] Care Team Providers Care Aircraft Maintenance Technician Name Role Phone Laura Tapia NP Primary Care Provider [phone] Reason for Visit * Diagnostic Imaging (Routine) - Closed Specialty Diagnoses / Procedures Referred By Conttom t Referred To Contact Diagnoses Pain in both lower extremities Procedures XR Knee Right 4 or More Views Mark Stiles PA Phone: tel: fax: Referral ID Status Reason Start Date Expiration Date Visits Re quested Visits Authorized [id number] Closed 02/08/2021 03/10/2022 1 1 Encounter Details Date Type Department Care Team (Latest Contact Info) Description 02/08/2021 7:54 AM CDT - 02/08/2021 11:59 PM CDT Hospital Encounter [facility] Orthopedics and Sports Medicine [address] [facility] [address], [place] [phone] Discharge Disposition: Discharge to home or self [...] points, staff should administer the PHQ-9) 0 12/07/2019 Sex and Gender Information Value Date Recorded Sex Assigned at Not on file 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 Gender Identity Not on file Sexual Orientation Not on file documented as of this encounter Medications at Time of Discharge ALPRAZolam (XANAX) 0.25 mg tablet Take 1 tablet (0.25 mg total) by mouth 2 (two) times a day as needed for anxiety 10 tablet 07/27/2020 1 buPROPion XL (WELLBUTRIN XL) 300 mg 24 hr tablet Take 1 tablet (300 mg total) by mouth every morning 7 tablet 01/16/2021 1 lisinopriL (PRINIVIL,ZESTRIL) 5 mg tabletIndications:Es sential [...] mg total) by mouth daily 30 tablet 03/29/2020 1 documented as of this encounter Discharge Disposition Disposition Code Departure Means Destination Discharge to home or self care documented in this encounter Plan of Treatment Not on file documented as of this encounter Procedures Procedure Name Priority Date/Time Associated Diagnosis Comments XR KNEE RIGHT 4 OR MORE VIEWS Schedule Routine, Read Routine (OP Routine) 02/15/2021 9:54 PM CDT Pain in both lower extremities documented in this encounter Results * XR Knee Right 4 or More Views (02/15/2021 9:54 PM CDT) Anatomical Region Laterality Modality Lower Extremities, Knee Right Digital Radiography Narrative 02/15/2021 9:54 PM CDT Tricompartmental degenerative changes with moderate narrowing, noted subchondral sclerosis. ??Lateral tilt of patella. Mark [facility] XR PROCEDURES Edite d Result - Final documented in this encounter Visit Diagnoses Not on filedocumented in this encounter Care Teams Aircraft Maintenance Technician Relationship Specialty Start Date End Date Laura Tapia NP PCP - General Family Medicine 09/30/19 10/01/22 documented as of this encounter
--- OUTSIDE RECORDS SUMMARY | 2024-09-17 12:55 | XMS_ITS | Encounter Summary ---
Author Organization [facility] Address [address] [place] [address] Care Team Providers Care Library Associate Name Role Phone Laura Tapia NP Primary Care Provider [phone] Reason for Referral * MRI/CAT/PET Scan (Routine) - Closed Specialty Diagnoses / Procedures Referred By Contac t Referred To Contact Radiology Diagnoses Patellofemoral pain syndrome of both knees Acute pain of both knees Tear of lateral meniscus of left knee, unspecified tear type, unspecified whether old or current tear, subsequent encounter Procedures MRI Knee Left WO Contrast Mark Stiles PA Phone: tel: fax: [facility] [address] [place] [address] Referral ID Status Reason Start Date Expiration Date Visits Re quested Visits Authorized [id number] Closed 04/06/2021 05/06/2022 1 1 Reason for Visit * Reason Comments Follow-up Follow-up Encounter Details Date Type Department Care Team (Late st Contact Info) Description 04/05/2021 3:00 PM CDT Office Visit [facility] Orthopedics and Sports Medicine [address] [facility] [address] [place] [address] Mark Stiles PA [address] [address] [place] [address] Patellofemoral pain syndrome of both knees (Primary Dx); Acute pain of both knees; Tear of lateral meniscus of left knee, unspecified tear type, unspecified whether old or current tear, subsequent encounter; History of tear of meniscus of knee joint Social History Tobacco Use Types Packs/Day Years [...] on file 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 NEW PATIENT VISIT Subjective CHIEF COMPLAINT He had concerns including Follow-up of the Left Knee and Follow-up of the Right Knee. HISTORY OF PRESENT ILLINESS Jaden presents today for bilateral knee pain, left worse than right. He reports right knee diagnosed with a torn meniscus approximately 10 years ago of which she treated conservatively and currently has no no pain or issues. Reports recent onset of left knee pain over the few couple months, no relation accident or injuries. At previous visit physical therapy was ordered, patient states he had to discontinue PT due to conflicts with his work schedule. Today states pain 3/10, exacerbated with bending/kneeling and going up and down stairs. He states no instability or noticeable locking/catching.Denies any numbness/tingling. He has tried Tylenol with not much relief and declined steroid injection at previous visit due to it not being much help in the past for his right knee. Pain Assessment Pain Assessment: 0-10 Pain Score: 3 PAST MEDICAL HISTORY He has a past medical history of Anxiety disorder, Depression, Diabetes mellitus (CMS/HCC), Erectile dysfunction, GERD (gastroesophageal reflux disease), Hemorrhoids, Hyperlipidemia, Hypertension, Palpitation, and Sleep apnea. He also has no past medical history of Anemia, Asthma, Blood clot associated with vein wall inflammation, Cancer (CMS/HCC), CHF (congestive heart failure) (CMS/HCC), COPD (chronic obstructive pulmonary disease) (CMS/HCC), Coronary artery disease, History of chemotherapy, Liver disease, Seizures (CMS/HCC), or Stroke ([facility]/HCC). PAST SURGICAL HISTORY He has a past surgical history that includes Shoulder surgery; Carpal tunnel release; IR Biopsy Abdomen Retroperitoneal (N/A, 02/06/2019); Band hemorrhoidectomy; Knee arthroscopy (Right, 02/2006); andColonoscopy (08/26/2020). MEDICATIONS He has a current medication list which includes the following prescription(s): alprazolam, bupropion xl, lisinopril, metoprolol xl, pramipexole, and pravastatin. ALLERGIES He has No Known Allergies. SOCIAL HISTORY He reports that he has never smoked. He quit smokeless tobacco use about 2 years ago. His smokelesstobacco use included chew. He reports current alcohol use. He reports that he does not use drugs. FAMILY HISTORY Family History Problem Relation Age of Onset ??? Throat cancer Father ??? Hypertension Mother ??? Leukemia Mother REVIEW OF SYSTEMS Review of Systems Constitutional: Negative for chills, fatigue and fever. HENT: Negative for sore throat. Eyes: Negative. Respiratory: Negative. Negative for cough and shortness of breath. Cardiovascular: Negative. Negative for chest pain. Gastrointestinal: Negative. Negative for constipation, nausea and vomiting. Endocrine: Negative. Genitourinary: Negative. Musculoskeletal: Positive for arthralgias. Skin: Negative. Allergic/Immunologic: Negative. Neurological: Negative. Hematological: Negative. Psychiatric/Behavioral: Negative. Objective PHYSICAL EXAM BP 128/83 Pulse 71 Ht 188 cm (6' 2 ) Wt 126.1 kg (278 lb) BMI 35.69 kg/m?? Right knee Inspection The patient has [...] Special tests Chapito: medial negative lateral positive Assessment/Plan Jaden was seen today for follow-up and follow-up. Diagnoses and all orders for this visit: Patellofemoral pain syndrome of both knees Acute pain of both knees Tear of lateral meniscus of left knee, unspecified tear type, unspecified whether old or current tear, subsequent encounter History of tear of meniscus of knee joint Plan Today patient presents with positive Chapito's on physical examination of left knee. I have ordered an MRI of his left knee to rule out meniscus tear HEP, NSAIDs p.r.n.ASHA. Follow-up pending MRI results Diagnosis and treatment options reviewed with patient. Patient voiced understanding, all questions answered. 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 SANGEETA Villegas Cosigned by Clem Bedoya MD at 05/08/2021 12:45 PM CDT documented in this encounter Miscellaneous Notes * Addendum Note - Eleni Kitchen MA - 04/05/2021 3:00 PM CDTAddended by: ELENI KITCHEN on: 04/06/2021 11:24 AM Modules accepted: Orders documented in this encounter Plan of Treatment Not on file documented as of this encounter Results * MRI Knee Left WO Contrast (04/26/2021 5:25 PM CDT) Anatomical Region Laterality Modality Lower Extremities Left Magnetic Reson ance 04/27/2021 3:25 AM CDT Addenda Addendum by Anoop Ramírez MD on 07/15/2021 5:27 PM CDT ADDENDUM: ??This addendum report supersedes the original report dated 04/26/2021 REASON FOR STUDY should read: ?Lateral LEFT knee pain for 8 months. TECHNIQUE should read: ?? Multiplanar, multisequence MRI of the LEFT knee was performed. THIS IS AN ELECTRONICALLY VERIFIED FINAL REPORT 07/15/2021 5:27 PM - Electronically signed by Anoop Ramírez M.D. RT: RT D: ??07/13/2021 2:30 PM T: ??07/13/2021 2:30 PM Report ID: [id number] Reading Location: ??[id number] Narrative 04/27/2021 3:33 AM CDT EXAM DESCRIPTION: ?? MRI KNEE LEFT WO CONTRAST REASON FOR STUDY: ?? Lateral right knee pain for 8 months. TECHNIQUE: ??Multiplanar, multisequence MRI of the right knee was performed. COMPARISON: ?? None available. FINDINGS: Joint and Bursae: ??Trace knee joint effusion. ??Tiny Talbot's cyst, which extends superiorly as a multilobulated ganglion cyst, measuring up to 2.5 cm in the craniocaudal dimension. Bones: ??No fracture. Cartilage: ?Patellofemoral: ??Mild to moderate chondrosis, with small full-thickness chondral defect involving the lateral femoral condyle, with underlying subchondral marrow edema. ?Medial compartment: ??No chondromalacia. ?Lateral Compartment: ??No chondromalacia. Ligaments: ??The ACL, PCL, and MCL and lateral collateral ligament complex are intact. Extensor Mechanism: ??The quadriceps and patellar tendons are intact. ??The medial and lateral patellar retinacula are intact. Tendons/Soft tissues: ??The popliteus tendon is intact. ??The musculature is intact without evidence of tear. ??The popliteal neurovascular bundle is unremarkable. Posterolateral Corner: ??Intact. Medial Meniscus: ??Nondisplaced horizontal undersurface tear of the posterior horn medial meniscus. Lateral Meniscus: ??The lateral meniscus is intact. Other: ??No other finding. IMPRESSION: ?? 1. ??Nondisplaced horizontal undersurface tear of the posterior horn left medial meniscus. ?? 2. ??Sdva-we-btkxbudr left patellofemoral compartment chondrosis, with small full-thickness chondral defect of the lateral left femoral condyle. 3. ??Intact left knee lateral meniscus, cruciate, and collateral ligaments. THIS IS AN ELECTRONICALLY VERIFIED FINAL REPORT 04/27/2021 3:33 AM - Electronically signed by Anoop Ramírez M.D. RT: RT D: ??04/27/2021 3:33 AM T: ??04/27/2021 3:33 AM Report ID: [id number] Reading Location: ??[id number] Procedure Note Anoop Ramírez MD - 04/27/2021 EXAM DESCRIPTION: MRI KNEE LEFT WO CONTRAST REASON FOR STUDY: Lateral right knee pain for 8 months. TECHNIQUE: Multiplanar, multisequence MRI of the right knee wasperformed. COMPARISON: None available. FINDINGS: Joint and Bursae: Trace knee joint effusion. Tiny Talbot's cyst, which extends superiorly as a multilobulated ganglion cyst, measuring up to 2.5cm in the craniocaudal dimension. Bones: No fracture. Cartilage: Patellofemoral: Mild to moderate chondrosis, with small full-thickness chondral defect involving the lateral femoral condyle, with underlying subchondral marrow edema. Medial compartment: No chondromalacia. Lateral Compartment: No chondromalacia. Ligaments: The ACL, PCL, and MCL and lateral collateral ligament complexare intact. Extensor Mechanism: The quadriceps and patellar tendons are intact. The medial and lateral patellar retinacula are intact. Tendons/Soft tissues: The popliteus tendon is intact. The musculature is intact without evidence of tear. The popliteal neurovascular bundle is unremarkable. Posterolateral Corner: Intact. Medial Meniscus: Nondisplaced horizontal undersurface tear of theposterior horn medial meniscus. Lateral Meniscus: The lateral meniscus is intact. Other: No other finding. IMPRESSION: 1. Nondisplaced horizontal undersurface tear of the posterior horn left medial meniscus. 2. Jqkz-[id number] left patellofemoral compartment chondrosis, withsmall full-thickness chondral defect of the lateral left femoral condyle. 3. Intact left knee lateral meniscus, cruciate, and collateral ligaments. THIS IS AN ELECTRONICALLY VERIFIED FINAL REPORT 04/27/2021 3:33 AM - Electronically signed by Anoop Ramírez M.D. RT: RT Report ID: [id number] Reading Location: [place] [address] [facility] MRI PROCEDURES Edit ed Result - Final documented in this encounter Visit Diagnoses Diagnosis Patellofemoral pain syndrome of both knees- Primary Acute pain of both knees Tear of lateral meniscus of left knee, unspecified tear type, unspecified whether old or current tear, subsequent encounter History of tear of meniscus of knee joint Patellofemoral pain syndrome of both knees Acute pain of both knees Tear of lateral meniscus of left knee, unspecified tear type, unspecified whether old or current tear, subsequent encounter documented in this encounter Care Teams Library Associate Relationship Specialty Start Date End Date Laura Tapia NP PCP - General Family Medicine 09/30/19 10/01/22 documented as of this encounter
--- OUTSIDE RECORDS SUMMARY | 2024-09-17 12:55 | XMS_ITS | Encounter Summary ---
Author Organization [facility] Address [address] [place] [address] Care Team Providers Care Hospitalist Name Role Phone Laura Tapia NP Primary Care Provider [phone] Reason for Referral * Diagnostic Imaging (Routine) - Closed Specialty Diagnoses / Procedures Referred By Contac t Referred To Contact Diagnoses Pain in both lower extremities Procedures XR Knee Left 4 or More Views Mark Stiles PA Phone: tel: fax: Referral ID Status Reason Start Date Expiration Date Visits Re quested Visits Authorized [id number] Closed 02/08/2021 03/10/2022 1 1 * Diagnostic Imaging (Routine) - Closed Specialty Diagnoses / Procedures Referred By Contac t Referred To Contact Diagnoses Pain in both lower extremities Procedures XR Pelvis 1 or 2 Views Mark Stiles PA Phone: tel: fax: Referral ID Status Reason Start Date Expiration Date Visits Re quested Visits Authorized [id number] Closed 02/08/2021 03/10/2022 1 1 * Diagnostic Imaging (Routine) - Closed Specialty Diagnoses / Procedures Referred By Contac t Referred To Contact Diagnoses Pain in both lower extremities Procedures XR Knee Right 4 or More Views Mark Stiles PA Phone: tel: fax: Referral ID Status Reason Start Date Expiration Date Visits Re quested Visits Authorized [id number] Closed 02/08/2021 03/10/2022 1 1 Reason for Visit * Reason Comments Pain Pain Encounter Details Date Type Department Care Team (Late st Contact Info) Description 02/08/2021 2:30 PM CDT Office Visit [facility] Orthopedics and Sports Medicine [address] [place] [address] [address] [place] [address] Mark Stiles PA [address] [place] [address] Pain in both lower extremities (Primary Dx); Patellofemoral pain syndrome of both knees Social History Tobacco Use Types Packs/Day Years [...] on file 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 NEW PATIENT VISIT Subjective CHIEF COMPLAINT He had concerns including Pain of the Left Knee and Pain of the Right Knee. HISTORY OF PRESENT ILLINESS Jaden presents today for bilateral knee pain, left worse than right. He reports right knee diagnosed with a torn meniscus approximately 10 years ago of which she treated conservatively and currently has no no pain or issues. Reports recent onset of left knee pain over the past couple months, no relation accident or injuries. Today he states no pain currently and left knee, but exacerbated to 7/10especially when going up and down stairs, and pain is usually anteriorly and lateral. He denies anylocking/catching or instability. Patient denies any numbness/tingling or radiculopathy. He has tried Tylenol with not much of, stating he tried a steroid injection in his right knee 10 years ago and that did not help much either, stating his right knee just got better over time, but left knee is his main concern today. Today he presents for further evaluation. Pain Assessment Pain Assessment: 0-10 Pain Score: 7 Pain Location: Knee Pain Orientation: Left, Right Pain Descriptors: Aching, Burning, Sharp Pain Frequency: Constant/continuous PAST MEDICAL HISTORY He has a past medical history of Anxiety disorder, Depression, Diabetes mellitus ([facility]), Erectile dysfunction, GERD (gastroesophageal reflux disease), Hemorrhoids, Hyperlipidemia, Hypertension, Palpitation, and Sleep apnea. He also has no past medical history of Anemia, Asthma, Blood clot associated with vein wall inflammation, Cancer ([facility]), CHF (congestive heart failure) ([facility]), COPD (chronic obstructive pulmonary disease) ([facility]), Coronary artery disease, History of chemotherapy, Liver disease, Seizures ([facility]), or Stroke ([facility]). PAST SURGICAL HISTORY He has [...] Negative. Psychiatric/Behavioral: Negative. Objective PHYSICAL EXAM BP 130/76 Pulse 80 Ht 188 cm (6' 2 ) Wt 122.9 kg (271 lb) BMI 34.79 kg/m?? Right knee Inspection The patient has [...] Special tests Chapito: medial negative lateral positive Comments: Negative patellar grind, no TTP at pes anserine bursa Left knee Inspection The patient has normal inspection of the left knee. Gait: normal Palpation The patient has normal palpation of the left knee. Range of motion The patient has normal range of motion of the left knee. The patient does not have pain with range of motion of the left knee. Stability The patient has normal AP and ML stabiltiy of the left knee. Anterior drawer: negative Strength The patient has 5/5 strength throughout with exceptions as noted below. Knee extension: 4/5 Knee flexion: 4/5 Neurovascular The patient has normal vascular on the left side of their body. The patient has normal sensation on the left side of their body. Special tests Chapito: medial negative lateral negative Comments: Negative patellar grind, no TTP at pes anserine bursa REVIEW OF X-RAYS/STUDIES/LABS XR Knee Right 4 or More Views Tricompartmental degenerative changes with moderate narrowing, noted subchondral sclerosis. Lateraltilt of patella. XR Pelvis 1 or 2 Views No fractures or dislocations. Mild degenerative changes, femoroacetabular joint space is preserved bilaterally. XR Knee Left 4 or More Views Tricompartmental degenerative changes with moderate narrowing, noted subchondral sclerosis. Lateraltilt of patella Assessment/Plan Jaden was seen today for pain and pain. Diagnoses and all orders for this visit: Pain in both lower extremities - XR Knee Right 4 or More Views - XR Pelvis 1 or 2 Views - XR Knee Left 4 or More Views Patellofemoral pain syndrome of both knees Plan Patient presented today with normal physical exam, but states noticeable pain occasionally especially when going up and down stairs. Patient declined injection today, stating because he is not currently symptomatic. Physical therapy ordered. Prateek Pull knee brace offered, patient states he already has a similar brace. Follow-up in 8 weeks HEP, NSAIDs p.r.n.ASHA Diagnosis and treatment options reviewed with patient along with x-rays. Patient voiced understanding, all questions answered. 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 SANGEETA Villegas Cosigned by Clem Bedoya MD at 03/06/2021 10:43 AM CDT documented in this encounter Plan of Treatment Not on file documented as of this encounter Procedures Procedure Name Priority Date/Time Associated Diagnosis Comments XR PELVIS 1 OR 2 VIEWS Schedule Routine, Read Routine (OP Routine) 02/16/2021 3:54 PM CDT Pain in both lower extremities XR KNEE LEFT 4 OR MORE VIEWS Schedule Routine, Read Routine (OP Routine) 02/15/2021 9:54 PM CDT Pain in both lower extremities XR KNEE RIGHT 4 OR MORE VIEWS Schedule Routine, Read Routine (OP Routine) 02/15/2021 9:54 PM CDT Pain in both lower extremities documented in this encounter Results * XR Pelvis 1 or 2 Views (02/16/2021 3:54 PM CDT) Anatomical Region Laterality Modality Body, Pelvis N/A Digital Radiogra phy Narrative 02/16/2021 3:54 PM CDT No fractures or dislocations. ??Mild degenerative changes, femoroacetabular joint space is preserved bilaterally. [facility] XR PROCEDURES Final Result * XR Knee Left 4 or More Views (02/15/2021 9:54 PM CDT) Anatomical Region Laterality Modality Lower Extremities, Knee Left Digital Radiography Narrative 02/15/2021 9:54 PM CDT Tricompartmental degenerative changes with moderate narrowing, noted subchondral sclerosis. ??Lateral tilt of patella [facility]R PROCEDURES Edite d Result - Final * XR Knee Right 4 or More Views (02/15/2021 9:54 PM CDT) Anatomical Region Laterality Modality Lower Extremities, Knee Right Digital Radiography Narrative 02/15/2021 9:54 PM CDT Tricompartmental degenerative changes with moderate narrowing, noted subchondral sclerosis. ??Lateral tilt of patella. [facility]R [facility]ED[facility] Edite d Result - Final documented in this encounter Visit Diagnoses Diagnosis Pain in both lower extremities- Primary Patellofemoral pain syndrome of both knees documented in this encounter Discontinued Medications Medication Sig Discontinue Reason Start Date End Da te aspirin 81 mg chewable tabletIndications:preven tion of thrombosis,dydlipidemia Take 1 tablet (81 mg total) by mouth daily. 10/20/2018 02/08/2021 cholecalciferol (VITAMIN D-3) 1,000 unit Take 1 tablet/capsule (1,000 Units total) by mouth daily. 10/20/2018 02/08/2021 hydrOXYzine (ATARAX) 25 mg tablet Take 1 tablet (25 mg total) by mouth nightly 07/27/2020 02/08/2021 documented as of this encounter Care Teams Hospitalist Relationship Specialty Start Date End Date Laura Tapia NP PCP - General Family Medicine 09/30/19 10/01/22 documented as of this encounter
--- OUTSIDE RECORDS SUMMARY | 2024-09-17 12:55 | XMS_ITS | Encounter Summary ---
Author Organization [facility] Address [address] [place] [address] Care Team Providers Care Platen Builder Up Name Role Phone Laura Tapia OBSTETRICS NURSE PRACTITIONER Primary Care Provider [phone] Reason for Referral * Sleep Medicine (Routine) - Closed Specialty Diagnoses / Procedures Referred By Zaida camacho Referred To Contact Diagnoses Obstructive sleep apnea syndrome Procedures Portable/Home Sleep Study Mariaelena Zaidi MD Phone: tel: [address] [phone] Referral ID Status Reason Start Date Expiration Date Visits Re quested Visits Authorized [id number] Closed 05/17/2021 06/16/2022 1 1 Reason for Visit * Reason Comments Sleep Apnea falls asleep just si tting talking to someone CPAP Follow Up machine is 6 plus ye ars old. * Consultation (Routine) - Closed Specialty Diagnoses / Procedures Referred By Zaida camacho Referred To Contact Sleep Medicine Diagnoses Obstructive sleep apnea syndrome Laura Tapia NP Phone: tel: fax: Mariaelena Zaidi MD [address] [place] [address] Phone: tel: Referral ID Status Reason Start Date Expiration Date V isits Requested Visits Authorized [id number] Closed Specialty Services Required 04/11/2021 10/12/2021 1 1 Encounter Details Date Type Department Care Team (Late st Contact Info) Description 05/17/2021 2:30 PM CDT Office Visit [facility] Sleep Medicine at [address] [place] [address] Mariaelena Zaidi MD [address] [place] [address] [address] [place], [place] [id number] RLS (restless legs syndrome) (Primary Dx); Obstructive sleep apnea syndrome; Obstructive sleep apnea; Hypersomnia; Obesity, unspecified classification, unspecified obesity type, unspecified whether serious comorbidity present; Restless leg syndrome Social History Tobacco Use Types Packs/Day [...] file 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 SUBJECTIVE Chief Complaints: Snoring, unrefreshing sleep, excessive daytime sleepiness HPI: Jaden De La Torre is a 50 y.o. male with a PMHx significant for obstructive sleep apnea, hypertension, hyperlipidemia, obesity, anxiety was seen in the sleep medicine clinic for consultation. The patient was requested to be seen by his PCP Laura Tapia NP for opinion regarding the abovesymptoms. Obstructive sleep apnea: Patient gives history of many years of snoring, witnessed apneas, waking up gasping or choking for air and excessive daytime sleepiness. Patient had a polysomnogram done 10-12 years ago in [place] and was started on CPAP machine. Patient started using it every night and uses it throughout the night. Patient had a new machine around 6 years ago through the [place]. Patient states that he has gained 30 [...] of obstructive sleep apnea. 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 DME: [place] Restless legs: Patient gives history of many years of [...] over the past few years. Sleep schedule: On all days, he goes to bed [...] rest which gets better with activity. ESS: 13 Past Medical History: Diagnosis Date ??? Anxiety [...] ??? lisinopriL, TAKE 1 TABLET DAILY ??? metoprolol XL, TAKE 1 TABLET DAILY [...] Mother ??? Leukemia Mother Physical Exam: Vitals: 05/17/21 1435 BP: 125/78 BP Location: Left arm Patient Position: Sitting Pulse: 69 SpO2: 97% Weight: 124.5 kg (274 lb 6.4 oz) BMI: Body mass index is 35.23 kg/m??. Wt Readings from Last 6 Encounters: 05/17/21 124.5 kg (274 lb 6.4 oz) 04/11/21 126.1 kg (278 lb) 04/05/21 126.1 kg (278 lb) 02/08/21 122.9 kg (271 lb) 07/27/20 122.5 kg (270 lb) 04/28/20 124.8 kg (275 lb 1.6 oz) BMI Readings from Last 6 Encounters: 05/17/21 35.23 kg/m?? 04/11/21 35.69 kg/m?? 04/05/21 35.69 kg/m?? 02/08/21 34.79 kg/m?? 07/27/20 34.67 kg/m?? 04/28/20 35.32 kg/m?? Physical Exam General appearance: Alert, oriented, in no distress. HEENT: Atraumatic, normocephalic. Pupils are equal and reactive to light. Extraocular movement intact. Positive for macroglossia and scalloped tongue. Mallampati-IV. Extremities/Musculoskeletal: No pedal edema, no calf tenderness Neuro: No focal deficits Psychiatric: Normal mood and affect Polysomnogram results: Polysomnogram from 10-12 years ago in [place]: Not available Data download: Not available Ejection fraction: Stress echo from 2018: Normal systolic function Assessment and Plan: Data reviewed today: PCP note: Obstructive sleep apnea does not improving Lab results: CO2 - 24, creatinine 0.90, TSH - 2.98 Echocardiogram result from 2018: Reviewed as above 1. Obstructive sleep apnea: o Symptoms suggestive of obstructive sleep apnea syndrome which is likely worsening. o PSG from 10-12 years ago not available. o Will obtain polysomnography since the patient has persistent hypersomnia and significant weight gain of 30 lb since the last sleep study. Patient verbalized understanding. Follow-up after the sleepstudy. o Patient currently is on CPAP, at unknown settings. Patient is on Resp[employer]ics dream Station, whichis on recall. Discussed at length regarding the potential health risk of using a recall device including airway inflammation, skin, and respiratory tract irritation, headache, asthma, toxic carcinogenic effects, cough, chest pressure sinus infection. o Once polysomnography has been completed, will prescribe him a new machine. o The physiology of sleep disordered breathing [...] for restless leg syndrome is 0.75 mg nightly. ?? Recommended patient to take half of the 1.5 mg tablet to make it 0.75 mg nightly 1-2 hours priorto the symptom onset. Patient has symptoms at around 7:00 p.m.. ?? possibility of augmentation with pramipexole discussed in detail. ?? Will obtain ferritin level and replace if low. 5. Return to clinic in 4 weeks after sleep study is completed. Voice recognition software [employer] Direct was used dictate and transcribe this document. Roastmaster variances may occur. Despite proofreading, typographical errors may occur. Mariaelena Zaidi MD [facility] Sleep Medicine CC: Laura Tapia NP ADDENDUM: Reviewed his data on care psychiatric lpn. On APAP at 10-20 cm of water. Download reviewed, decreased compliance, well controlled with residual AHI of 3.9/hour. Awaiting repeat PSG. documented in this encounter Plan of Treatment Not on file documented as of this encounter Results * Portable/Home Sleep Study (06/13/2021) Impressions Aristeo Oro MD - 06/13/2021 HOME SLEEP APNEA TEST ?? HISTORY: Jaden De La Torre is a 50 y.o. male who presents for Home sleep apnea test. (HSAT). Reason for sleep study: ??Obstructive sleep apnea Past medical history: obstructive sleep apnea, hypertension, hyperlipidemia, obesity, anxiety Current medications: reviewed [place] Sleepiness Score: 13 BMI: 35.23 ?? PROCEDURE: This is a single night diagnostic study. This Home Sleep apnea Test (HSAT) utilized an unattended FDA approved RedShark Punch apnea link home air portable monitoring device investigating for obstructive sleep apnea. The patient was proved instruction of the device and application by the registered electroneurodiagnostic technologist at the [facility]. This test was performed without a electromechanical technologist in attendance. In this study, the following parameters were monitored: Terrell-nasal airflow, snoring, chest respiratory effort, abdominal respiratory effort, body position, movement, oxygen saturation, and heart rate. Respiratory events are scored according to the criteria from The [place] Academy of Sleep Medicine (AASM) Manual for [...] be taken into consideration.? Mariaelena Zaidi MD [facility] Sleep Medicine ?? Narrative Aristeo Oro MD - 06/13/2021 Ocst is ready for review Mariaelena Zaidi MD SLEEP CENTER ORDERABLES Final Re sult * (ABNORMAL) Ferritin (05/17/2021 3:20 PM CDT) Ferritin 441(H) 30 - 400 ng/mL [facility] ([place]) Blood 05/17/2021 3:20 PM CDT 05/17/2021 5:05 PM CDT Mariaelena Zaidi MD LAB BLOOD ORDERABLES Final Resul t [facility] ([place]) 1 [facility] Department of Laboratories [place], [place] [id number] documented in this encounter Visit Diagnoses Diagnosis RLS (restless legs syndrome)- Primary Restless legs syndrome (RLS) Obstructive sleep apnea syndrome Obstructive sleep apnea (adult) (pediatric) Obstructive sleep apnea Obstructive sleep apnea (adult) (pediatric) Hypersomnia Hypersomnia, unspecified Obesity, unspecified classification, unspecified obesity type, unspecified whether serious comorbidity present Restless leg syndrome Restless legs syndrome (RLS) Obstructive sleep apnea syndrome Obstructive sleep apnea (adult) (pediatric) documented in this encounter Orders Outpatient Referral Count Last Ordered Date Fir st Ordered Date AMB REFERRAL TO SLEEP MEDICINE 1 05/17/2021 documented in this encounter Care Teams Platen Builder Up Relationship Specialty Start Date End Date Laura Tapia NP PCP - General Family Medicine 09/30/19 10/01/22 documented as of this encounter
--- OUTSIDE RECORDS SUMMARY | 2024-09-17 12:55 | XMS_ITS | Encounter Summary ---
Author Organization [facility] Address [address] [place] [address] Care Team Providers Care Treasurer Savings Bank Name Role Phone Laura Tapia NP Primary Care Provider [phone] Encounter Details Date Type Department Care Team (Late st Contact Info) Description 05/17/2021 Telephone [facility] Sleep Medicine at [address] [place] [id number] Mariaelena Zaidi MD [address] [place] [address] [address] [place] [address] Social History Tobacco Use Types Packs/Day Years [...] file 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 * Telephone Encounter - Laura De La Paz MA - 05/17/2021 3:30 PM CDT Patient was downstairs in lab and came back upstairs after receiving VM and provided us with the correct serial number. Called Lily with [facility] and she is going to have patients machine linked to Care Manager Process. * Telephone Encounter - Laura De La Paz MA - 05/17/2021 3:19 PM CDT Patient supplied serial number in office for machine, called [facility] to have patients machine released and the serial number provided is for his humidifier and not the CPAP machine. Called and lmom for patient to return call with the correct #. documented in this encounter Plan of Treatment Not on file documented as of this encounter Visit Diagnoses Not on filedocumented in this encounter Care Teams Treasurer Savings Bank Relationship Specialty Start Date End Date Laura Tapia NP PCP - General Family Medicine 09/30/19 10/01/22 documented as of this encounter
--- OUTSIDE RECORDS SUMMARY | 2024-09-17 12:55 | XMS_ITS | Encounter Summary ---
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 However she states [facility] informed them that the script was discontinued. I spoke with Alida, let her know it was still an active medication on his list. She would like toknow if a small script could be sent to [facility] [place] as well as [facility] to get himby til it comes in the mail. documented in this encounter Plan of Treatment Not on file documented as of this encounter Visit Diagnoses Not on filedocumented in this encounter Care Teams De Icer Installer Relationship Specialty Start Date End Date Laura Tapia NP PCP - General Family Medicine 09/30/19 10/01/22 documented as of this encounter
--- OUTSIDE RECORDS SUMMARY | 2024-09-17 12:55 | XMS_ITS | Encounter Summary ---
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 * Result Encounter Note - Mraiaelena Zaidi MD - 05/18/2021 8:49 AM CDT Please let him know that he does not need iron supplements. His levels are higher. So, I have messaged his PCP Laura Tapia regarding further evaluation. documented in this encounter Plan of Treatment Not on file documented as of this encounter Procedures Procedure Name Priority Date/Time Associated Diagnosis Comments FERRITIN Routine 05/17/2021 3:20 PM CDT RLS (restless legs syndrome) documented in this encounter Results * (ABNORMAL) Ferritin (05/17/2021 3:20 PM CDT) Ferritin 441(H) 30 - 400 ng/mL [facility] ([place]) Blood 05/17/2021 3:20 PM CDT 05/17/2021 5:05 PM CDT us Mariaelena Zaidi MD LAB BLOOD ORDERABLES Final Resul t [facility] ([place]) 1 [facility] Department [place] [address] documented in this encounter Visit Diagnoses Diagnosis RLS (restless legs syndrome) Restless legs syndrome (RLS) documented in this encounter Care Teams Wood Machinist Relationship Specialty Start Date End Date Laura Tapia NP PCP - General Family Medicine 09/30/19 10/01/22 documented as of this encounter
--- OUTSIDE RECORDS SUMMARY | 2024-09-17 12:55 | XMS_ITS | Encounter Summary ---
Author Organization [facility] Address [address] [place] [address] Care Team Providers Care Program Planner Name Role Phone Laura Tapia SLAG WHEELER Primary Care Provider [phone] Encounter Details Date Type Department Care Team (Late st Contact Info) Description 03/29/2021 Orders Only [facility] of [address] [place] [address] Laura Tapia, ALAN [address] [place] [id number] Essential hypertension (Primary Dx); Situational anxiety; Class 1 obesity due to excess calories without serious comorbidity with body mass index (BMI) of 34.0 to 34.9 in adult Social History Tobacco Use Types [...] on file 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 Gender Identity Not on file Sexual Orientation Not on file documented as of this encounter Plan of Treatment Not on file documented as of this encounter Results * Vitamin D 25 hydroxy (04/11/2021 5:21 PM CDT) Vitamin D 25-OH 34 30 - 80 ng/mL [facility] ([place]) Blood specimen (specimen) 04/11/2021 5:21 PM CDT 04/11/2021 5:35 PM CDT Laura Regina SLAG WHEELER LAB BLOOD ORDERABLES Final Result Performing Organization Address City/[facility]/ZIP Co de Phone Number [facility] ([place]) 1 [facility] [place] [address] * TSH (04/11/2021 5:21 PM CDT) Thyroid Stimulating Hormone 2.98 0.30 - 4.20 mcIUnit/mL [facility] ([place]) Blood specimen (specimen) 04/11/2021 5:21 PM CDT 04/11/2021 5:35 PM CDT Laura Tapia LAB BLOOD ORDERABLES Final Result Performing Organization Address [facility] Co de Phone Number [facility] ([place]) 1 [facility] [place] [address] * (ABNORMAL) Lipid panel (04/11/2021 5:21 PM CDT) Cholesterol 175 30 - 199 mg/dL [facility] ([place]) Comment: Interpretive Data [...] Data was last revised on 2018. Triglycerides 176(H) <=149 mg/dL [facility] ([place]) Comment: Interpretive Data [...] Data was last revised on 2018. HDL 40 >=40 mg/dL [facility] ([place]) Comment: Interpretive [...] was last revised on 2018. LDL, calculated 100 <=129 mg/dL [facility] ([place]) Comment: Interpretive Data [...] was last revised on 2018. Non-HDL Cholesterol 135 mg/dL [facility] ([place]) Comment: Interpretive Data [...] Chol/HDL ratio 4 [facility] ([place]) Blood specimen (specimen) 04/11/2021 5:21 PM CDT 04/11/2021 5:35 PM CDT us Laura Tapia SLAG WHEELER LAB BLOOD ORDERABLES Final Result [facility] ([place]) 1 [facility] Department [place] [address] * Comprehensive metabolic panel (04/11/2021 5:21 PM CDT) Sodium 135 135 - 145 mmol/L [facility] ([place]) Potassium, pl 4.1 3.3 - 4.9 mmol/L [facility] ([place]) Chloride 103 97 - 110 mmol/L [facility] ([place]) CO2 24 22 - 32 mmol/L [facility] ([place]) Anion gap 8 2 - 15 mmol/L [facility] ([place]) BUN 14 8 - 25 mg/dL [facility] ([place]) Creatinine 0.90 0.80 - 1.30 mg/dL [facility] ([place]) Glucose 92 70 - 199 mg/dL [facility] ([place]) [...] - 8.5 g/dL [facility] ([place]) Albumin 4.7 3.5 - 5.0 g/dL [facility] ([place]) Alk phos 95 40 - 130 Units/L [facility] ([place]) ALT 44 7 - 55 Units/L [facility] ([place]) AST 29 10 - 50 Units/L [facility] ([place]) Comment:Slightly Hemolyzed S pecimen Blood specimen (specimen) 04/11/2021 5:21 PM CDT 04/11/2021 5:35 PM CDT us Laura Tapia NP LAB BLOOD ORDERABLES Final Result [facility] ([place]) 1 [facility] Department [place] [address] * CBC with auto differential (04/11/2021 5:21 PM CDT) WBC 6.0 3.8 - 9.9 K/cumm [facility] ([place]) Hgb 14.7 13.0 - 17.5 g/dL [facility] ([place]) Hct 42.4 38.9 - 50.3 % [facility] ([place]) Plt 214 150 - 400 K/cumm [facility] ([place]) MPV 9.9 9.1 - 12.3 fL [facility] RBC 4.62 4.30 - 5.80 M/cumm [facility] ([place]) MCV 91.8 81.3 - 96.4 fL [facility] MCH 31.8 27.1 - 33.3 pg [facility] ([place]) MCHC 34.7 32.3 - 35.7 g/dL [facility] RDW CV 12.5 11.1 - 14.9 % [facility] RDW SD 41.5 35.7 - 48.1 fL [facility] NRBC abs 0.00 0.00 - 0.01 K/cumm [facility] Blood specimen (specimen) 04/11/2021 5:21 PM CDT 04/11/2021 5:35 PM CDT Laura Tapia NP LAB BLOOD ORDERABLES Final Result [facility] ([place]) 1 [facility] Department [place] [address] * Hemoglobin A1c (04/11/2021 5:21 PM CDT) Hgb A1C 5.1 4.0 - 5.6 % [facility] Estimated Average Glucose 100 mg/dL [facility] Comment: The ADA recommends reporting an estimated Average Glucose (eAG) with all Hemoglobin A1c results using the equation derived from a study of 507 normal and diabetic adults. ??Minority populations were underrepresented and children were not included. ?? (Diabetes Care 31:8212-6135, 2008). ??The eAG is not equivalent to a fasting glucose. Blood specimen (specimen) 04/11/2021 5:21 PM CDT 04/12/2021 6:18 AM CDT Laura Tapia NP LAB BLOOD ORDERABLES Final Result [facility] [place]) 1 [facility] Department [place] [address] documented in this encounter Visit Diagnoses Diagnosis Essential hypertension- Primary Unspecified essential hypertension Situational anxiety Class 1 obesity due to excess calories without serious comorbidity with body mass index (BMI) of 34.0 to 34.9 in adult documented in this encounter Care Teams Program Planner Relationship Specialty Start Date End Date Laura Tapia NP PCP - General Family Medicine 09/30/19 10/01/22 documented as of this encounter
--- OUTSIDE RECORDS SUMMARY | 2024-09-17 12:55 | XMS_ITS | Encounter Summary ---
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 Gender Identity Not on file Sexual Orientation Not on file documented as of this encounter Ordered Prescriptions Prescription Sig Dispense Quantity Refills Last Filled Start Date End Date buPROPion XL (WELLBUTRIN XL) 300 mg 24 hr tablet Take 1 tablet (300 mg total) by mouth every morning 90 tablet 3 05/09/2021 buPROPion XL (WELLBUTRIN XL) 300 mg 24 hr tablet Take 1 tablet (300 mg total) by mouth every morning 30 tablet 05/09/2021 documented in this encounter Plan of Treatment Not on file documented as of this encounter Visit Diagnoses Not on filedocumented in this encounter Discontinued Medications Medication Sig Discontinue Reason Start Date End Da te buPROPion XL (WELLBUTRIN XL) 300 mg 24 hr tablet Take 1 tablet (300 mg total) by mouth every morning Reorder 01/16/2021 05/09/2021 buPROPion XL (WELLBUTRIN XL) 300 mg 24 hr tablet Take 1 tablet (300 mg total) by mouth every morning Reorder 05/09/2021 05/09/2021 documented as of this encounter Care Teams Fruit Harvester Relationship Specialty Start Date End Date Laura Tapia NP PCP - General Family Medicine 09/30/19 10/01/22 documented as of this encounter
--- OUTSIDE RECORDS SUMMARY | 2024-09-17 12:55 | XMS_ITS | Encounter Summary ---
Author Organization [facility] Healthcare Address [address] [place] [address] Care Team Providers Care Remote Sensing Research Scientist Name Role Phone Laura Tapia NP Primary Care Provider [phone] Encounter Details Date Type Department Care Team (Late st Contact Info) Description 04/11/2021 5:25 PM CDT [address] [id number] Brandon Aguayo MD [address] [facility] [address] [place] [address] Laura Tapia NP [address] [place] [id number] Class 1 obesity due to excess calories without serious comorbidity with body mass index (BMI) of 34.0 to 34.9 in adult; Essential hypertension; Situational anxiety Discharge Disposition: Discharge to home or self [...] on file 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 Gender Identity Not on file Sexual Orientation Not on file documented as of this encounter Discharge Disposition Disposition Code Departure Means Destination Discharge to home or self care documented in this encounter Plan of Treatment Not on file documented as of this encounter Procedures Procedure Name Priority Date/Time Associated Diagnosis Comments EGFR Routine 04/11/2021 5:21 PM CDT Essential hypertension DIFFERENTIAL AUTO Routine 04/11/2021 5:2 1 PM CDT Essential hypertension CBC WITH AUTO DIFFERENTIAL Routine 04/11/2021 5:21 PM CDT Essential hypertension VITAMIN D 25 HYDROXY Routine 04/11/2021 5:21 PM CDT Class 1 obesity due to excess calories without serious comorbidity with body mass index (BMI) of 34.0 to 34.9 in adult TSH Routine 04/11/2021 5:21 PM CDT Situational anxiety HEMOGLOBIN A1C Routine 04/11/2021 5:21 PM CDT Class 1 obesity due to excess calories without serious comorbidity with body mass index (BMI) of 34.0 to 34.9 in adult LIPID PANEL Routine 04/11/2021 5:21 PM CDT Essential hypertension COMPREHENSIVE METABOLIC PANEL Routine 04/11/2021 5:21 PM CDT Essential hypertension documented in this encounter Results * eGFR (04/11/2021 5:21 PM CDT) [facility] eGFR 98 mL/min/1.7 3 m2 [facility] ([place]) Comment: Interpretive Data Reference Interval Normal ?>/= 90 mL/min/1.73m2 Mildly decreased* ? 60 - 89 mL/min/1.73m2 Mildly to moderately decreased ?45 - 59 mL/min/1.73m2 Moderately to severely decreased ??30 - 44 mL/min/1.73m2 Severely decreased ?15 - 29 mL/min/1.73m2 Kidney Failure ?< 15 ??mL/min/1.73m2 *Relative to young adult level Estimated glomerular filtration rate is determined by the CKD-EPI equation recommended by the National Kidney Foundation (KDIGO 2012 Clinical Practice Guideline for the Evaluation and Management of Chronic Kidney Disease. Kidney Intnl Suppl Sep 2012;3:1). The CKD-EPI equation should not be used for patients with unstable renal function and has not been validated in children and those over 70. Current interpretive data was last reviewed 2020 Blood specimen (specimen) 04/11/2021 5:21 PM CDT 04/11/2021 5:35 PM CDT us Laura Tapia NP LAB BLOOD ORDERABLES Final Result [facility] ([place]) 1 [facility] Department [place] [address] * Differential, auto (04/11/2021 5:21 PM CDT) Neutrophil abs 3.5 1.7 - 6.5 K/cumm [facility] ([place]) Imm gran abs 0.1 0.0 - 0.1 K/cumm [facility] ([place]) Lymphocyte abs 1.7 0.8 - 3.3 K/cumm [facility] ([place]) Monocyte abs 0.5 0.2 - 0.8 K/cumm [facility] ([place]) Eosinophil abs 0.2 0.0 - 0.5 K/cumm [facility] ([place]) Basophil abs 0.1 0.0 - 0.1 K/cumm [facility] ([place]) Neutrophil pct 58.9 % [facility] ([place]) Comment: Interpretive [...] was last revised on 2017. Lymphocyte pct 27.5 % [facility] ([place]) Comment: Interpretive Data Percent cell count reference ranges are not reported, since discordance with absolute values may lead to misinterpretation of CBC data. Current Interpretive Data was last revised on 2017. Monocyte pct 8.8 % [facility] ([place]) Comment: Interpretive Data Percent cell count reference ranges are not reported, since discordance with absolute values may lead to misinterpretation of CBC data. Current Interpretive Data was last revised on 2017. Eosinophil pct 2.8 % [facility] ([place]) Comment: Interpretive Data Percent cell count reference ranges are not reported, since discordance with absolute values may lead to misinterpretation of CBC data. Current Interpretive Data was last revised on 2017. Basophil pct 1.0 % [facility] ([place]) Comment: Interpretive Data Percent cell count reference ranges are not reported, since discordance with absolute values may lead to misinterpretation of CBC data. Current Interpretive Data was last revised on 2017. Blood specimen (specimen) 04/11/2021 5:21 PM CDT 04/11/2021 5:35 PM CDT Laura Tapia LAB BLOOD ORDERABLES Final Result Performing Organization Address City/[facility]/ZIP Co de Phone Number [facility] ([place]) 1 [facility] [place] [address] * TSH (04/11/2021 5:21 PM CDT) Thyroid Stimulating Hormone 2.98 0.30 - 4.20 mcIUnit/mL [facility] ([place]) Blood specimen (specimen) 04/11/2021 5:21 PM CDT 04/11/2021 5:35 PM CDT Laura Tapia LAB BLOOD ORDERABLES Final Result [facility] ([place]) [address] Department [place] [address] * (ABNORMAL) Lipid panel (04/11/2021 5:21 PM CDT) [facility] Cholesterol 175 30 - 199 mg/dL [facility] ([place]) Comment: Interpretive Data Ages < or = [...] revised on 2018. Triglycerides 176(H) <=149 mg/dL [facility] ([place]) Comment: Interpretive Data Ages < or = [...] on 2018. HDL 40 >=40 mg/dL [facility] ([place]) Comment: Interpretive [...] on 2018. LDL, calculated 100 <=129 mg/dL [facility] ([place]) Comment: Interpretive [...] last revised on 2018. Chol/HDL ratio 4 [facility] ([place]) Blood specimen (specimen) 04/11/2021 5:21 PM CDT 04/11/2021 5:35 PM CDT us Laura Tapia NP LAB BLOOD ORDERABLES Final Result [facility] ([place]) 1 [facility] Department [place] [address] * Comprehensive metabolic panel (04/11/2021 5:21 PM CDT) Sodium 135 135 - 145 mmol/L [facility] [...] Tapia NP LAB BLOOD ORDERABLES Final Result [facility] ([place]) 1 [facility] Department [place] [address] * CBC with auto differential (04/11/2021 5:21 PM CDT) WBC 6.0 3.8 - 9.9 K/cumm [facility] ([place]) Hgb 14.7 13.0 - 17.5 g/dL [facility] ([place]) Hct 42.4 38.9 - 50.3 % [facility] ([place]) Plt 214 150 - 400 K/cumm [facility] ([place]) MPV 9.9 9.1 - 12.3 fL [facility]) RBC 4.62 4.30 - 5.80 M/cumm [facility] ([place]) MCV 91.8 81.3 - 96.4 fL [facility] ([place]) MCH 31.8 27.1 - 33.3 pg [facility] ([place]) MCHC 34.7 32.3 - 35.7 g/dL [facility] ([place]) RDW CV 12.5 11.1 - 14.9 % [facility]) RDW SD 41.5 35.7 - 48.1 fL [facility] ([place]) NRBC abs 0.00 0.00 - 0.01 K/cumm [facility] ([place]) Blood specimen (specimen) 04/11/2021 5:21 PM CDT 04/11/2021 5:35 PM CDT us Laura Tapia NP LAB BLOOD ORDERABLES Final Result [facility] ([place] 1 [facility] [place] [address] * Hemoglobin A1c (04/11/2021 5:21 PM CDT) Pathologist [facility] [place] Hgb A1C 5.1 4.0 - 5.6 % [facility] [place]) Estimated Average Glucose 100 mg/dL [facility] ([place]) Comment: The ADA recommends reporting an estimated Average Glucose (eAG) with all Hemoglobin A1c results using the equation derived from a study of 507 normal and diabetic adults. ??Minority populations were underrepresented and children were not included. ?? (Diabetes Care 31:3486-0246, 2008). ??The eAG is not equivalent to a fasting glucose. Blood specimen (specimen) 04/11/2021 5:21 PM CDT 04/12/2021 6:18 AM CDT us Laura Tapia NP LAB BLOOD ORDERABLES Final Result Performing Organization Address City/[facility]/ZIP Co de Phone Number [facility] ([place] 1 [facility] [place] [address] * Vitamin D 25 hydroxy (04/11/2021 5:21 PM CDT) Pathologist [facility] [place] Vitamin D 25-OH 34 30 - 80 ng/mL [facility] ([place]) Blood specimen (specimen) 04/11/2021 5:21 PM CDT 04/11/2021 5:35 PM CDT Laura Tapia NP LAB BLOOD ORDERABLES Final Result [facility] ([place]) 1 [facility] [place] [address] documented in this encounter Visit Diagnoses Diagnosis Class 1 obesity due to excess calories without serious comorbidity with body mass index (BMI) of 34.0 to 34.9 in adult Essential hypertension Unspecified essential hypertension Situational anxiety documented in this encounter Care Teams Remote Sensing Research Scientist Relationship Specialty Start Date End Date Laura Tapia NP PCP - General Family Medicine 09/30/19 10/01/22 documented as of this encounter
--- OUTSIDE RECORDS SUMMARY | 2024-09-17 12:55 | XMS_ITS | Encounter Summary ---
Author Organization [facility] Address [address] [place] [address] Care Team Providers Care Cook Candy Name Role Phone Laura Tapia NP Primary Care Provider [phone] Reason for Visit * Diagnostic Imaging (Routine) - Closed Specialty Diagnoses / Procedures Referred By Conttom t Referred To Contact Diagnoses Pain in both lower extremities Procedures XR Pelvis 1 or 2 Views Mark Stiles PA Phone: tel: fax: Referral ID Status Reason Start Date Expiration Date Visits Re quested Visits Authorized [id number] Closed 02/08/2021 03/10/2022 1 1 Encounter Details Date Type Department Care Team (Latest Contact Info) Description 02/08/2021 7:54 AM CDT - 02/08/2021 11:59 PM CDT Hospital Encounter [facility] Medical [facility] Orthopedics and Sports Medicine [address] [id number] Discharge Disposition: Discharge to home or self [...] on file 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 Mark [facility] IMG XR PROCEDURES Final Result documented in this encounter Visit Diagnoses Not on filedocumented in this encounter Care Teams Cook Candy Relationship Specialty Start Date End Date Laura Tapia NP PCP - General Family Medicine 09/30/19 10/01/22 documented as of this encounter
--- OUTSIDE RECORDS SUMMARY | 2024-09-17 12:55 | XMS_ITS | Encounter Summary ---
Author Organization [facility] Address [address] [place] [address] Care Team Providers Care Systems Security Consultant Name Role Phone Laura Tapia NP Primary Care Provider [phone] Reason for Referral * Consultation (Routine) - Closed Specialty Diagnoses / Procedures Referred By Zaida t Referred To Contact Sleep Medicine Diagnoses Obstructive sleep apnea syndrome Laura Tapia NP Phone: tel: fax: Radha Pimentel MD [address] [place] [address] [address] [place] [address] Phone: tel: Referral ID Status Reason Start Date Expiration Date V isits Requested Visits Authorized [id number] Closed Specialty Services Required 04/11/2021 10/12/2021 1 1 Question Answer Please select the performing region: [facility] [[id number]] Please select the performing department: [facility] SLEEP MED COUNT INCLUDES [facility] [[id number]] To provider: RADHA PIMENTEL [[id number]] # of visits: 1 Comments Willing to go to [facility] or [place] to be seen sooner. He has cpap that he uses nightly but not sleeping well and falling asleep mid conversation. Reason for Visit * Reason Comments Hypertension Hyperlipidemia GERD Encounter Details Date Type Department Care Team (Late st Contact Info) Description 04/11/2021 4:00 PM CDT Office Visit [facility] [address] [place] [id number] Laura Tapia NP [address] [place] [address] Essential hypertension (Primary Dx); Mixed hyperlipidemia; Spondylosis of lumbar region without myelopathy or radiculopathy; Obstructive sleep apnea syndrome; Restless legs syndrome; Laryngopharyngeal reflux (LPR); Psychophysiological insomnia; Situational anxiety; Anger reaction; Class 2 obesity due to excess calories without serious comorbidity with body mass index (BMI) of 36.0 to 36.9 in adult; Lesion of skin of nose; Localized swelling of lower extremity Social History Tobacco Use Types Packs/Day Years [...] on file 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 [employer] Gender Identity Not on file Sexual Orientation Not on file documented as of this encounter Last Filed Vital Signs Vital Sign Reading Time Taken Comments Blood Pressure 134/80 04/11/2021 3:49 PM CDT Pulse 74 04/11/2021 3:49 PM CDT Temperature - - Respiratory Rate 20 04/11/2021 3:49 PM CDT Oxygen Saturation 98% 04/11/2021 3:49 PM CDT Inhaled Oxygen Concentration - - Weight 126.1 kg (278 lb) 04/11/2021 3:49 PM CDT Height 188 cm (6' 2 ) 04/11/2021 3:49 PM CDT Body Mass Index 35.69 04/11/2021 3:49 PM CDT documented in this encounter Patient Instructions * Patient Instructions* Laura Tapia NP - 04/11/2021 4:00 PM CDT Subjective/Objective Patient ID: Jaden De La Torre is a 50 y.o. male. Assessment/Plan Diagnoses and all orders for this visit: Essential hypertension (Primary) Assessment & Plan: HPI: Condition is at goal A&P: Discussed/ordered labs, encouraged healthy, low carbohydrate lifestyle and at least 150min/week of exercise, continue on lisinopril 5mg daily and metoprolol 25mg daily Orders: - CBC with auto differential; Future - Comprehensive metabolic panel; Future - Hemoglobin A1c; Future - Lipid panel; Future - TSH; Future - Vitamin D 25 hydroxy; Future Mixed hyperlipidemia Assessment & Plan: HPI: Condition is stable A&P: Discussed/ordered labs, encouraged healthy, low carbohydrate lifestyle and at least 150min/week of exercise, continue on pravastatin 40mg daily Spondylosis of lumbar region without myelopathy or radiculopathy Assessment & Plan: HPI: Condition is stable A&P: Discussed/ordered labs, encouraged healthy, low carbohydrate lifestyle and at least 150min/week of exercise, no meds needed at this time. Obstructive sleep apnea syndrome Assessment & Plan: HPI: Condition is worsening A&P: Discussed/ordered labs, encouraged healthy, low carbohydrate lifestyle and at least 150min/week of exercise, continue on cpap, refer to Dr. Pimentel (sleep med) Orders: - Ambulatory referral to Sleep Medicine; Future Restless legs syndrome Assessment & Plan: HPI: Condition is not at/near goal A&P: Discussed/ordered labs, encouraged healthy, low carbohydrate lifestyle and at least 150min/week of exercise, continue on mirapex 1.5mg up to 3 times daily. He has been using it about 2 timesdaily Orders: - Vitamin D 25 hydroxy; Future Laryngopharyngeal reflux (LPR) Assessment & Plan: HPI: Condition is not at/near goal Pt does not want to go on meds, encouraged healthy diet and exercise Avoid trigger foods including: carbonated beverages, caffeine, spicy, fried foods, tomatoes, cucumbers, mint, and acidic fruits/juices like orange/lemon/grapefruit. Avoid eating/drinking anything for at least 2 hours before bed. Sleep with bed propped. Discussed increased risk of cdif and vit B12 deficiency with extermination supervisor use of PPI with pt, would like to remain on medication at this time Psychophysiological insomnia Assessment & Plan: HPI: Condition is worsening A&P: Discussed/ordered labs, encouraged healthy, low carbohydrate lifestyle and at least 150min/week of exercise, continue on cpap, refer to Dr. Pimentel (sleep med) Situational anxiety Assessment & Plan: Patient reiterated [...] continue on bupropion xl 300mg at bedtime Anger reaction Assessment & Plan: Patient reiterated [...] continue on bupropion xl 300mg at bedtime Class 2 obesity due to [...] in your mouth on an olegario like Care at Hand or [employer] carries a zero net carb bread [...] in much longer they will become mushy [place] and/or coconut flour instead of regular flour [...] pork rinds For yogurt, try Two Good persian yogurt Use Pinterest for recipe ideas. Type in low carb... Orders: - Vitamin D 25 hydroxy; Future Lesion of skin of nose Comments: Víctor Edward (dermatology) [phone] [place] [address], [address] [place], [place] [id number] Orders: - Ambulatory referral to Dermatology; Future Localized swelling of lower extremity Comments: wear compression socks (up to the knees, not the groin) Víctor Edward (dermatology) [phone] [place] [address], [address] [place] [id number] Thanks for coming in today. My biomedical analytical scientist, Cortney, and I are thankful you have trusted us with your care, and hope that you received EXCELLENT care today! Please do not hesitate to call if you have any questions or concerns at [phone]. You may receive a phone call or text asking about your care today. We would love to hear your input and again, hope your visit was as EXCELLENT as possible, even if you were not feeling your best! Follow up 6 Months documented in this encounter Progress Notes * Laura Tapia NP - 04/11/2021 4:00 PM CDT Images from the original note were not included. Subjective/Objective Patient ID: Jaden De La Torre is a 50 y.o. male. Assessment/Plan Diagnoses and all orders for this visit: Essential hypertension (Primary) Assessment & Plan: HPI: Condition is at goal A&P: Discussed/ordered labs, encouraged healthy, low carbohydrate lifestyle and at least 150min/week of exercise, continue on lisinopril 5mg daily and metoprolol 25mg daily Orders: - CBC with auto differential; Future - Comprehensive metabolic panel; Future - Hemoglobin A1c; Future - Lipid panel; Future - TSH; Future - Vitamin D 25 hydroxy; Future Mixed hyperlipidemia Assessment & Plan: HPI: Condition is stable A&P: Discussed/ordered labs, encouraged healthy, low carbohydrate lifestyle and at least 150min/week of exercise, continue on pravastatin 40mg daily Spondylosis of lumbar region without myelopathy or radiculopathy Assessment & Plan: HPI: Condition is stable A&P: Discussed/ordered labs, encouraged healthy, low carbohydrate lifestyle and at least 150min/week of exercise, no meds needed at this time. Obstructive sleep apnea syndrome Assessment & Plan: HPI: Condition is worsening A&P: Discussed/ordered labs, encouraged healthy, low carbohydrate lifestyle and at least 150min/week of exercise, continue on cpap, refer to Dr. Pimentel (sleep med) Orders: - Ambulatory referral to Sleep Medicine; Future Restless legs syndrome Assessment & Plan: HPI: Condition is not at/near goal A&P: Discussed/ordered labs, encouraged healthy, low carbohydrate lifestyle and at least 150min/week of exercise, continue on mirapex 1.5mg up to 3 times daily. He has been using it about 2 timesdaily Orders: - Vitamin D 25 hydroxy; Future Laryngopharyngeal reflux (LPR) Assessment & Plan: HPI: Condition is not at/near goal Pt does not want to go on meds, encouraged healthy diet and exercise Avoid trigger foods including: carbonated beverages, caffeine, spicy, fried foods, tomatoes, cucumbers, mint, and acidic fruits/juices like orange/lemon/grapefruit. Avoid eating/drinking anything for at least 2 hours before bed. Sleep with bed propped. Discussed increased risk of cdif and vit B12 deficiency with jail use of PPI with pt, would like to remain on medication at this time Psychophysiological insomnia Assessment & Plan: HPI: Condition is worsening A&P: Discussed/ordered labs, encouraged healthy, low carbohydrate lifestyle and at least 150min/week of exercise, continue on cpap, refer to Dr. Pimentel (sleep med) Situational anxiety Assessment & Plan: Patient reiterated [...] continue on bupropion xl 300mg at bedtime Anger reaction Assessment & Plan: Patient reiterated [...] continue on bupropion xl 300mg at bedtime Class 2 obesity due to [...] in your mouth on an olegario like Care at Hand or [employer] carries a zero net carb bread [...] in much longer they will become mushy [place] and/or coconut flour instead of regular flour [...] pork rinds For yogurt, try Two Good persian yogurt Use Pinterest for recipe ideas. Type in low carb... Orders: - Vitamin D 25 hydroxy; Future Lesion of skin of nose Comments: Víctor Edward (dermatology) [phone] [place] [address], [address] [place] [address] Orders: - Ambulatory referral to Dermatology; Future Localized swelling of lower extremity Comments: wear compression socks (up to the knees, not the groin) Víctor Edward (dermatology) [phone] [place] [address], [address] [place] [id number] Thanks for coming in today. My biomedical analytical scientist, Cortney, and I are thankful you have trusted us with your care, and hope that you received EXCELLENT care today! Please do not hesitate to call if you have any questions or concerns at [phone]. You may receive a phone call or text asking about your care today. We would love to hear your input and again, hope your visit was as EXCELLENT as possible, even if you were not feeling your best! Follow up 6 Months Chief Complaint Hypertension, Hyperlipidemia, and GERD Back to falling asleep anytime, even in the middle of a conversation. Patient here today to discuss chronic conditions and discuss labs/have labs ordered\ Hypertension Pertinent negatives include no chest pain or shortness of breath. Hyperlipidemia Pertinent negatives include no chest pain or shortness of breath. GERD He reports no chest pain. Associated symptoms include fatigue. Review of Systems Constitutional: Positive for fatigue. Respiratory: Negative for shortness of breath. Cardiovascular: Negative for chest pain. Psychiatric/Behavioral: Negative for suicidal ideas. BP 134/80 (BP Location: Left arm, Patient Position: Sitting) Pulse 74 Resp 20 Ht 188 cm (6' 2 ) Wt 126.1 kg (278 lb) SpO2 98% BMI 35.69 kg/m?? Physical Exam Constitutional: General: He is not in acute distress. Appearance: He is well-developed. HENT: Head: Normocephalic. Right Ear: Tympanic membrane [...] tenderness. Musculoskeletal: General: Normal range of motion. Right lower le+ Pitting Edema present. Left lower le+ Pitting Edema present. Lymphadenopathy: Cervical: No cervical adenopathy. Skin: General: Skin is warm and dry. Capillary Refill: Capillary refill takes less than 2 seconds. Neurological: Mental Status: He is alert and oriented to person, place, and time. Psychiatric: Mood and Affect: Mood normal. Laura Tapia NP Please note: Voice recognition software [employer] was used to dictate and transcribe this document. Sociology Professor variances may occur. Despite proofreading, typographical errors may occur. documented in this encounter Miscellaneous Notes * Assessment & Plan Note - Laura Tapia NP - 04/11/2021 4:44 PM CDTAssociated Problem(s): Laryngopharyngeal reflux (LPR) HPI: Condition is not at/near goal Pt does not want to go on meds, encouraged healthy diet and exercise Avoid trigger foods including: carbonated beverages, caffeine, spicy, fried foods, tomatoes, cucumbers, mint, and acidic fruits/juices like orange/lemon/grapefruit. Avoid eating/drinking anything for at least 2 hours before bed. Sleep with bed propped. Discussed increased risk of cdif and vit B12 deficiency with jail use of PPI with pt, would like to remain on medication at this time * Assessment & Plan Note - Laura Tapia NP - 04/11/2021 4:43 PM CDTAssociated Problem(s): Restless legs syndrome HPI: Condition is not at/near goal A&P: Discussed/ordered labs, encouraged healthy, low carbohydrate lifestyle and at least 150min/week of exercise, continue on mirapex 1.5mg up to 3 times daily. He has been using it about 2 timesdaily * Assessment & Plan Note - Laura Tapia NP - 04/11/2021 4:43 PM CDTAssociated Problem(s): Obstructive sleep apnea syndrome HPI: Condition is worsening A&P: Discussed/ordered labs, encouraged healthy, low carbohydrate lifestyle and at least 150min/week of exercise, continue on cpap, refer to Dr. Pimentel (sleep med) * Assessment & Plan Note - Laura Tapia NP - 04/11/2021 4:43 PM CDTAssociated Problem(s): Anger reaction Patient reiterated no suicidal [...] continue on bupropion xl 300mg at bedtime * Assessment & Plan Note - Laura Tapia NP - 04/11/2021 4:42 PM CDTAssociated Problem(s): Spondylosis of lumbar region without myelopathy or radiculopathy HPI: Condition is stable A&P: Discussed/ordered labs, encouraged healthy, low carbohydrate lifestyle and at least 150min/week of exercise, no meds needed at this time. * Assessment & Plan Note - Laura Tapia NP - 04/11/2021 4:42 PM CDTAssociated Problem(s): Insomnia HPI: Condition is worsening A&P: Discussed/ordered labs, encouraged healthy, low carbohydrate lifestyle and at least 150min/week of exercise, continue on cpap, refer to Dr. Pimentel (sleep med) * Assessment & Plan Note - Laura Tapia NP - 04/11/2021 4:41 PM CDTAssociated Problem(s): Hyperlipidemia HPI: Condition is stable A&P: Discussed/ordered labs, encouraged healthy, low carbohydrate lifestyle and at least 150min/week of exercise, continue on pravastatin 40mg daily * Assessment & Plan Note - Laura Tapia NP - 04/11/2021 4:41 PM CDTAssociated Problem(s): Essential hypertension HPI: Condition is at goal A&P: Discussed/ordered labs, encouraged healthy, low carbohydrate lifestyle and at least 150min/week of exercise, continue on lisinopril 5mg daily and metoprolol 25mg daily * Assessment & Plan Note - Laura Tapia NP - 04/11/2021 4:34 PM CDTAssociated Problem(s): Class 2 obesity due [...] in your mouth on an olegario like Care at Hand or [employer] carries a zero net carb bread [...] in much longer they will become mushy [place] and/or coconut flour instead of regular flour [...] pork rinds For yogurt, try Two Good persian yogurt Use Pinterest for recipe ideas. Type in low carb... * Assessment & Plan Note - Laura Tapia NP - 04/11/2021 4:31 PM CDTAssociated Problem(s): Situational anxiety Patient reiterated no suicidal [...] continue on bupropion xl 300mg at bedtime documented in this encounter Plan of Treatment Scheduled Referrals Name Type Priority Associated Diagnoses Order Schedule Ambulatory referral to Sleep Medicine Outpatient Referral Routine Obstructive sleep apnea syndrome Expected: 04/25/2021 (Approximate), Expires: 04/11/2022 documented as of this encounter Visit Diagnoses Diagnosis Essential hypertension- Primary Unspecified essential hypertension Mixed hyperlipidemia Spondylosis of lumbar region without myelopathy or radiculopathy Obstructive sleep apnea syndrome Obstructive sleep apnea (adult) (pediatric) Restless legs syndrome Restless legs syndrome (RLS) Laryngopharyngeal reflux (LPR) Psychophysiological insomnia Persistent disorder of initiating or maintaining sleep Situational anxiety Anger reaction Undersocialized conduct disorder, aggressive type, unspecified Class 2 obesity due to excess calories without serious comorbidity with body mass index (BMI) of 36.0 to 36.9 in adult Lesion of skin of nose Localized swelling of lower extremity documented in this encounter Discontinued Medications Medication Sig Discontinue Reason Start Date End Da te ALPRAZolam (XANAX) 0.25 mg tablet Take 1 tablet (0.25 mg total) by mouth 2 (two) times a day as needed for anxiety 07/27/2020 04/11/2021 documented as of this encounter Care Teams Systems Security Consultant Relationship Specialty Start Date End Date Laura Tapia NP PCP - General Family Medicine 09/30/19 10/01/22 documented as of this encounter
--- OUTSIDE RECORDS SUMMARY | 2024-09-17 12:55 | XMS_ITS | Encounter Summary ---
Author Organization [facility] Healthcare Address [address] [place] [address] Care Team Providers Care Heavy Truck Mechanic Name Role Phone Regina Laura PHILLIPS Primary Care Provider [phone] Encounter Details Date Type Department Care Team (Late st Contact Info) Description 08/26/2020 8:11 AM PROFESSIONAL HEALTHCARE REPRESENTATIVE Anesthesia Event [address] [address] [place] [id number] [address] Anesthesia Record Procedure Summary Procedure Name Responsible Anesthesiologist Anesthesia Start Time Anesthesia Stop Time COLONOSCOPY (Colon) Aliya Berumen MD 08/26/20 0811 08/26/20 0837 Events Date Time Event Comment 08/26/2020 0804 0811 An Start 0811 An Start Data 0812 Start Supplemental O2 0812 Patient Positioned Laterally 0812 In Room 0824 An Induction The patient was reevaluated immediately before moderate or deep sedation use and before anesthesia induction. 0824 Anesthesia Ready 0825 Proc Start 0834 Proc Fin 0837 an stop data 0837 An Stop 0837 Handoff to RN I completed my handoff [...] the time of handoff: No value filed. 0837 Handoff to RN I completed my handoff [...] the time of handoff: No value filed. 0837 Out of Room Meds Name Total lidocaine (cardiac) syringe 2 % 40 mg propofol 210 mg sodium chloride 0.9% infusion 0 mL * Agents Name O2 * Blood No blood administrations on file. Lines, Drains, and Airways Type Details Placement Removal RETIRED Surgical Site 02/06/19; 1307; Le ft; Flank; S/P LEFT RETRO-PERITONEAL BIOPSY; 08/11/24 (Retired LDA, Removed/Completed by [email or web address] with LDA Utility); 1213 (Retired LDA, Removed/Completed by [email or web address] with LDA Utility) 02/06/19 1307 by Ye Workman RN 08/11/24 1213 by Discharge Provider, Automatic Peripheral IV Placement Date: 08/26/20; Placement Time: 751; Catheter Size: 20 G; Orientation: Posterior, Right; Location: Hand; Site Prep: Chlorhexidine; Inserted by: Daphney Murray RN; Insertion Attempts: 1; Patient Tolerance: Tolerated well; Removal Date: 08/26/20; Removal Time: 911; Removal Reason: Therapy completed 08/26/20 0752 by Daphney Murray, TERESO 08/26/20 0912 by Daphney Murray, TERESO documented in this encounter Social History Tobacco [...] on file 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 PROFESSIONAL HEALTHCARE REPRESENTATIVE Gender Identity Not on file Sexual Orientation Not on file documented as of this encounter OR Notes * Anesthesia Postprocedure Evaluation - Aliya Berumen MD - 08/26/2020 8:39 AM CST Patient: Jaden De La Torre Procedure Summary Date: 08/26/20 Room / Location: [facility] ENDOSCOPY ROOM 1 / [facility] END[facility]COPY Anesthesia Start: 810 Anesthesia Stop: 836 Procedure: COLONOSCOPY (N/A Colon) Diagnosis: Rectal pain Encounter for screening colonoscopy (Rectal pain [K62.89]) (Encounter for screening colonoscopy [Z12.11]) Providers: Antoinette Sawyer MD Responsible Provider: Aliya Berumen MD Anesthesia Type: general/TIVA ASA Status: 2 Anesthesia Type: general/TIVA Last vitals BP 126/78 Pulse 71 Temp 36.8 ??C (98.2 ??F) (Temporal) Resp 18 SpO2 97% Anesthesia Post Evaluation Patient location during evaluation: PACU Patient participation: complete - patient participated Level of consciousness: fully awake Pain management: satisfactory to patient Airway patency: adequate Anesthetic complications: no Cardiovascular status: acceptable Respiratory status: acceptable Hydration status: acceptable Pt is: normothermic Nausea/Vomiting status: none ESSIONAL HEALTHCARE REPRESENTATIVE * Anesthesia Preprocedure Evaluation - Aliya Berumen MD - 08/26/2020 7:10 AM CST Images from the original note were not included. Anesthesia Evaluation Jaden De La Torre is a 49 y.o. male Procedure(s): COLONOSCOPY Pre-Op Diagnosis Codes: * Rectal pain [K62.89] * Encounter for screening colonoscopy [Z12.11] HISTORY Past Medical History Information obtained from: patient and chart. Cardiovascular + Hypertension Respiratory + Sleep apnea (TAJ) Prescribed device: CPAP. Gastrointestinal + GERD Musculoskeletal/Pain + Osteoarthritis Endocrine / Other + Diabetes mellitus - Diabetes type 2. + Obesity (BMI >30) Patient Active Problem List Diagnosis ??? Restless legs syndrome ??? Obstructive sleep apnea syndrome ??? Insomnia ??? Hyperlipidemia ??? Essential hypertension ??? Laryngopharyngeal reflux (LPR) ??? Anger reaction ??? Benign ganglioneuroma of abdomen ??? Spondylosis of lumbar region without myelopathy or radiculopathy ??? Generalized abdominal pain ??? Class 1 obesity due to excess calories without serious comorbidity with body mass index (BMI) of 34.0 to 34.9 in adult ??? Rectal pain ??? Encounter for screening colonoscopy ??? Situational anxiety Past Medical History: Diagnosis Date ??? Anxiety disorder Anxiety ??? Depression Depression ??? Diabetes mellitus (CMS/HCC) hypoglycemia ??? Erectile dysfunction ??? GERD (gastroesophageal reflux disease) ??? Hemorrhoids ??? Hyperlipidemia ??? Hypertension ??? Palpitation ??? Sleep apnea Past Surgical History: Procedure Laterality Date ??? BAND HEMORRHOIDECTOMY ??? BIOPSY ABDOMEN RETROPERITONEAL N/A 02/06/2019 ??? CARPAL TUNNEL RELEASE ??? KNEE ARTHROSCOPY Right 02/2006 rt ac resection ??? SHOULDER SURGERY No Known Allergies Taking? Last Dose Start Date End Date Provider ALPRAZolam (XANAX) 0.25 mg tablet 07/27/20 -- Laura Tapia NP Take 1 tablet (0.25 mg total) by mouth 2 (two) times a day as needed for anxiety aspirin 81 mg chewable tablet () 10/20/18 07/27/20 Nguyen Coronado NP Take 1 tablet (81 mg total) by mouth daily. Patient not taking: Reported on 07/27/2020 Notes: Stopped 1 week ago buPROPion XL (WELLBUTRIN XL) 300 mg 24 hr tablet () 04/28/20 07/27/20 Laura Tapia NP Take 1 tablet (300 mg total) by mouth every morning cholecalciferol (VITAMIN D-3) 1,000 unit 10/20/18 -- Nguyen Coronado NP Take 1 tablet/capsule (1,000 Units total) by mouth daily. hydrOXYzine (ATARAX) 25 mg tablet 07/27/20 -- Laura Tapia NP Take 1 tablet (25 mg total) by mouth nightly lisinopriL (PRINIVIL,ZESTRIL) 5 mg tablet 11/26/19 -- Laura Barrios NP TAKE 1 TABLET DAILY metoprolol XL (TOPROL-XL) 25 mg extended release tablet 11/26/19 -- Laura Barrios NP TAKE 1 TABLET DAILY pramipexole (MIRAPEX) 1.5 mg tablet 03/29/20 -- Jada Phillips NP Take 1 tablet (1.5 mg total) by mouth 3 (three) times a day pravastatin (PRAVACHOL) 40 mg tablet 03/29/20 -- Jada Phillips NP Take 1 tablet (40 mg total) by mouth daily No current facility-administered medications for this encounter. Social History Tobacco Use Smoking Status Never Smoker Smokeless Tobacco Former User ??? Types: Chew Tobacco Comment chews, not interested in counseling Substance and Sexual Activity Alcohol Use Yes Comment: can of beer a month Substance and Sexual Activity Drug Use No Family History Problem Relation Age of Onset ??? Throat cancer Father ??? Hypertension Mother ??? Leukemia Mother There were no vitals filed for this [...] and allergies reviewed. Attestation: This PAT evaluation 08/26/2020. Airway Exam: Mallampati: II Cervical ROM: FROM TM distance: >4 Jaw ROM: full Cardiovascular Exam: Rate: regular Rhythm: regular Pulmonary Exam: LCTA, bilat Current state: Patient's current state is cooperative. Anesthesia Plan ASA 2 My patient is approved for the Anesthesia Controlled Medication protocol when under care of a ELECTRONIC GLUING MACHINE OPERATOR Planned anesthesia: General/TIVA Induction: Induction: intravenous. Postoperative Plan: No plan for postoperative opioid use. Patient's planned disposition post procedure is Outpatient. Informed Consent: Discussed plan with ELECTRONIC GLUING MACHINE OPERATOR and attending. Anesthesia plan and risks discussed with patient. Consent and Attending signature: I and/or my designee have discussed the anesthesia plan, benefits, possible alternatives, parental presence at time of induction (if indicated), and clinically relevant risks that may include dental injury, unintentional awareness, and/or other complications. The patient and/or parent/legal guardian understand, and agree to proceed. All questions answered. ESSIONAL HEALTHCARE REPRESENTATIVE documented in this encounter Plan of Treatment Not on file documented as of this encounter Visit Diagnoses Not on filedocumented in this encounter Administered Medications Inactive Administered Medications - up to 3 most recent administrations Medication Order MAR Action Action Date Dose Rate Site lidocaine (cardiac) (XYLOCAINE) preservative free injection intravenous, As needed, Starting on Sat08/26/20 at 0825, Anesthesia Intra-op, Indications: Ventricular ArrhythmiasIndications:Ventricular Arrhythmias Given 08/26/2020 8:25 AM PROFESSIONAL HEALTHCARE REPRESENTATIVE 40 mg propofoL (DIPRIVAN) IV intravenous, As needed, Starting on Sat08/26/20 at 0825, Anesthesia Intra-op Given 08/26/2020 8:31 AM PROFESSIONAL HEALTHCARE REPRESENTATIVE 30 mg Given 08/26/2020 8:28 AM PROFESSIONAL HEALTHCARE REPRESENTATIVE 40 mg Given 08/26/2020 8:27 AM PROFESSIONAL HEALTHCARE REPRESENTATIVE 40 mg sodium chloride 0.9% infusion 125 mL/hr, intravenous, Continuous, Starting on Sat08/26/20 at 0800, Recovery (GI) New Bag 08/26/2020 8:12 AM PROFESSIONAL HEALTHCARE REPRESENTATIVE documented in this encounter Care Teams Heavy Truck Mechanic Relationship Specialty Start Date End Date Laura Tapia NP PCP - General Family Medicine 09/30/19 10/01/22 documented as of this encounter
--- OUTSIDE RECORDS SUMMARY | 2024-09-17 12:55 | XMS_ITS | Encounter Summary ---
Author Organization [facility] Medical Group Address [address] [place] [address] Care Team Providers Care Senior Data Mining Analyst Name Role Phone Laura Tapia NP Primary Care Provider [phone] Reason for Visit * Reason Onset Date Comments knee surgery? 05/01/2021 Encounter Details Date Type Department Care Team (Late st Contact Info) Description 05/01/2021 Telephone [facility] Medical Group Orthopedics and Sports Medicine [address] [place] [phone] Clem Bedoya MD [address] [place], [place] [id number] knee surgery? 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 documented in this encounter Plan of Treatment Not on file documented as of this encounter Visit Diagnoses Not on filedocumented in this encounter Care Teams Senior Data Mining Analyst Relationship Specialty Start Date End Date Laura Tapia NP PCP - General Family Medicine 09/30/19 10/01/22 documented as of this encounter
--- OUTSIDE RECORDS SUMMARY | 2024-09-17 12:55 | XMS_ITS | Encounter Summary ---
Author Organization [facility] Medical Group Address [address] [place] [address] Care Team Providers Care Cyber Ops Planner Name Role Phone Laura Tapia NP Primary Care Provider [phone] Reason for Visit * Reason Onset Date Comments MRI left knee auth 04/07/2021 Encounter Details Date Type Department Care Team (Late st Contact Info) Description 04/07/2021 Telephone [facility] Medical Group Orthopedics and Sports Medicine [address] [place] [phone] Eleni Kitchen MA MRI left knee auth Social History Tobacco Use Types Packs/Day Years [...] file 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 She advised I call the medical plan and see who I needed to obtain PA from. TT Madelaine @ [facility], she checked CPT code and diagnosis code. No auth required. REF # [id number] Information updated in system. Called patient and notified him that his is authorized and gave number to TR. * Telephone Encounter - Eleni Kitchen MA - 04/07/2021 8:45 AM CDT TT Karlie Warren @ [facility], she stated Aniyah is having system issues so they are only able to build the case at this time and give out a reference #. She said that a sales representative public utilities will reach back out to me but she was not given a time frame of when this should happen. Case was made for MRI left knee. CASE # [id number] documented in this encounter Plan of Treatment Not on file documented as of this encounter Visit Diagnoses Not on filedocumented in this encounter Care Teams Cyber Ops Planner Relationship Specialty Start Date End Date Laura Tapia NP PCP - General Family Medicine 09/30/19 10/01/22 documented as of this encounter
--- OUTSIDE RECORDS SUMMARY | 2024-09-17 12:55 | XMS_ITS | Encounter Summary ---
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 * Telephone Encounter - Erin Viera MA - 04/24/2021 3:44 PM CDT Patient would like a call please. Thank you [phone] documented in this encounter Plan of Treatment Not on file documented as of this encounter Visit Diagnoses Not on filedocumented in this encounter Care Teams Interventional Nurse Relationship Specialty Start Date End Date Laura Tapia NP PCP - General Family Medicine 09/30/19 10/01/22 documented as of this encounter
--- OUTSIDE RECORDS SUMMARY | 2024-09-17 12:55 | XMS_ITS | Encounter Summary ---
Author Organization [facility] Address [address] [place] [address] Care Team Providers Care Personal Property Appraiser Name Role Phone Laura Tapia NP Primary Care Provider [phone] Reason for Referral * MRI/CAT/PET Scan (Routine) - Closed Specialty Diagnoses / Procedures Referred By Zaida camacho Referred To Contact Radiology Diagnoses Patellofemoral pain syndrome of both knees Acute pain of both knees Tear of lateral meniscus of left knee, unspecified tear type, unspecified whether old or current tear, subsequent encounter Procedures MRI Knee Left WO Contrast Mark Stiles PA Phone: tel: fax: [address] [phone] Referral ID Status Reason Start Date Expiration Date Visits Re quested Visits Authorized [id number] Closed 04/06/2021 05/06/2022 1 1 Reason for Visit * MRI/CAT/PET Scan (Routine) - Closed Specialty Diagnoses / Procedures Referred By Zaida camacho Referred To Contact Radiology Diagnoses Patellofemoral pain syndrome of both knees Acute pain of both knees Tear of lateral meniscus of left knee, unspecified tear type, unspecified whether old or current tear, subsequent encounter Procedures MRI Knee Left WO Contrast Mark Stiles PA Phone: tel: fax: [address] [phone] Referral ID Status Reason Start Date Expiration Date Visits Re quested Visits Authorized [id number] Closed 04/06/2021 05/06/2022 1 1 Encounter Details Date Type Department Care Team (Latest Contact Info) Description 04/26/2021 4:48 PM CDT - 04/26/2021 11:59 PM CDT Hospital Encounter [facility] [address] [place] [address] Clem Bedoya MD [address] [place] [address] Mark Stiles PA [address] [place] [address] Patellofemoral pain syndrome of both knees; Acute pain of both knees; Tear of lateral meniscus of left knee, unspecified tear type, unspecified whether old or current tear, subsequent encounter Discharge Disposition: Discharge to home or self [...] on file 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 Gender Identity Not on file Sexual Orientation [...] Name Priority Date/Time Associated Diagnosis Comments MRI KNEE LEFT WO CONTRAST Schedule Routine, Read Routine (OP Routine) 04/26/2021 5:25 PM CDT Patellofemoral pain syndrome of both knees Acute pain of both knees Tear of lateral meniscus of left knee, unspecified tear type, unspecified whether old or current tear, subsequent encounter documented in this encounter Results * MRI Knee Left [...] PM T: ??07/13/2021 2:30 PM Report ID: [id number] Reading Location: ??[id number] Narrative 04/27/2021 3:33 AM CDT EXAM DESCRIPTION: [...] posterior horn left medial meniscus. ?? 2. ??Knsf-cs-beuovfgs left patellofemoral compartment chondrosis, with small full-thickness chondral defect of the lateral left femoral condyle. 3. ??Intact left knee lateral meniscus, cruciate, and collateral ligaments. THIS IS AN ELECTRONICALLY VERIFIED FINAL REPORT 04/27/2021 3:33 AM - Electronically signed by Anoop Ramírez M.D. RT: RT D: ??04/27/2021 3:33 AM T: ??04/27/2021 3:33 AM Report ID: [id number] Reading Location: ??[id number] Procedure Note Anoop Ramírez MD - 04/27/2021 [...] the posterior horn left medial meniscus. 2. Yycx-bv-xngbfguv left patellofemoral compartment chondrosis, withsmall full-thickness chondral defect of the lateral left femoral condyle. 3. Intact left knee lateral meniscus, cruciate, and collateral ligaments. THIS IS AN ELECTRONICALLY VERIFIED FINAL REPORT 04/27/2021 3:33 AM - Electronically signed by Anoop Ramírez M.D. RT: RT Report ID: [id number] Reading Location: [place] [address] [facility] MRI PROCEDURES Edit ed Result - Final documented in this encounter Visit Diagnoses Diagnosis Patellofemoral pain syndrome of both knees Acute pain of both knees Tear of lateral meniscus of left knee, unspecified tear type, unspecified whether old or current tear, subsequent encounter documented in this encounter Care Teams Personal Property Appraiser Relationship Specialty Start Date End Date Laura Tapia NP PCP - General Family Medicine 09/30/19 10/01/22 documented as of this encounter
--- OUTSIDE RECORDS SUMMARY | 2024-09-17 12:55 | XMS_ITS | Encounter Summary ---
Author Organization [facility] Medical Group Address [address] [place] [address] Care Team Providers Care Posting Machine Operator Name Role Phone Laura Tapia NP Primary Care Provider [phone] Reason for Visit * Diagnostic Imaging (Routine) - Closed Specialty Diagnoses / Procedures Referred By Conttom t Referred To Contact Diagnoses Pain in both lower extremities Procedures XR Knee Left 4 or More Views Mark Stiles PA Phone: tel: fax: Referral ID Status Reason Start Date Expiration Date Visits Re quested Visits Authorized [id number] Closed 02/08/2021 03/10/2022 1 1 Encounter Details Date Type Department Care Team (Latest Contact Info) Description 02/08/2021 7:54 AM CDT - 02/08/2021 11:59 PM CDT Hospital Encounter [facility] Medical 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 ??Lateral tilt of patella [facility] XR PROCEDURES Edite d Result - Final documented in this encounter Visit Diagnoses Not on filedocumented in this encounter Care Teams Posting Machine Operator Relationship Specialty Start Date End Date Laura Tapia NP PCP - General Family Medicine 09/30/19 10/01/22 documented as of this encounter
--- OUTSIDE RECORDS SUMMARY | 2024-09-17 12:55 | XMS_ITS | Encounter Summary ---
Author Organization [facility] Medical Group Address 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 He has a left knee medial meniscus tear. He reports he is not ready for surgical fixation at the moment. He will contact us p.r.n.. documented in this encounter Plan of Treatment Not on file documented as of this encounter Visit Diagnoses Not on filedocumented in this encounter Care Teams Regional Maintenance Manager Relationship Specialty Start Date End Date Laura Tapia NP PCP - General Family Medicine 09/30/19 10/01/22 documented as of this encounter
--- OUTSIDE RECORDS SUMMARY | 2024-09-17 12:55 | XMS_ITS | Encounter Summary ---
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 Please fax a order to [facility] in [place]. Thank you documented in this encounter Plan of Treatment Not on file documented as of this encounter Visit Diagnoses Not on filedocumented in this encounter Care Teams Transplanter Orchid Relationship Specialty Start Date End Date Laura Tapia NP PCP - General Family Medicine 09/30/19 10/01/22 documented as of this encounter
--- OUTSIDE RECORDS SUMMARY | 2024-09-17 12:55 | XMS_ITS | Encounter Summary ---
Author Organization [facility] Address [address] [place] [address] Care Team Providers Care Mechanic Marine Engine Name Role Phone Laura Tapia NP Primary Care Provider [phone] Encounter Details Date Type Department Care Team (Late st Contact Info) Description 03/01/2021 Orders Only [facility] Orthopedics and Sports Medicine [address] [place] [id number] Mark Stiles PA 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
--- OUTSIDE RECORDS SUMMARY | 2024-09-17 12:56 | XMS_ITS | Encounter Summary ---
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 No / Unsure 12/07/2019 9:15 AM CDT documented as of this encounter Plan of Treatment Not on file documented as of this encounter Visit Diagnoses Not on filedocumented in this encounter Care Teams Safety Professional Relationship Specialty Start Date End Date Laura Tapia NP PCP - General Family Medicine 09/30/19 10/01/22 documented as of this encounter
--- OUTSIDE RECORDS SUMMARY | 2024-09-17 12:56 | XMS_ITS | Encounter Summary ---
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 Gender Identity Not on file Sexual Orientation Not on file documented as of this encounter Last Filed Vital Signs Vital Sign Reading Time Taken Comments Blood Pressure 126/80 08/26/2020 9:08 AM COVERAGE SPECIALIST Pulse 64 08/26/2020 9:08 AM COVERAGE SPECIALIST Temperature 36.8 ??C (98.3 ??F) 08/26/2020 9:08 AM CS T Respiratory Rate 18 08/26/2020 9:08 AM COVERAGE SPECIALIST Oxygen Saturation 98% 08/26/2020 9:08 AM COVERAGE SPECIALIST Inhaled Oxygen Concentration - - Weight - - Height - - Body Mass Index - - documented in this encounter Discharge Diagnoses Diagnosis Encounter for screening for malignant neoplasm of colon - ENCOUNTER FOR SCREENING FOR MALIGNANT NEOPLASM OF COLON Other hemorrhoids - OTHER HEMORRHOIDS Gastro-esophageal reflux disease without esophagitis - GASTRO-ESOPHAGEAL REFLUX DISEASE WITHOUT ESOPHAGITIS Essential (primary) hypertension - ESSENTIAL (PRIMARY) HYPERTENSION Unspecified essential hypertension Sleep apnea, unspecified - SLEEP APNEA, UNSPECIFIED Anxiety disorder, unspecified - ANXIETY DISORDER, UNSPECIFIED Male erectile dysfunction, unspecified - MALE ERECTILE DYSFUNCTION, UNSPECIFIED Major depressive disorder, single episode, unspecified - MAJOR DEPRESSIVE DISORDER, SINGLE EPISODE, UNSPECIFIED Type 2 diabetes mellitus without complications (CMS/HCC) (HCC) - TYPE 2 DIABETES MELLITUS WITHOUT COMPLICATIONS Hyperlipidemia, unspecified - HYPERLIPIDEMIA, UNSPECIFIED [facility] (current) use of aspirin - MILITARY ANALYST (CURRENT) USE OF ASPIRIN Other termination clerk (current) drug therapy - OTHER GROUP HOME (CURRENT) DRUG THERAPY Family history of ischemic heart disease and other diseases of the circulatory system - FAMILY HISTORY OF ISCHEMIC HEART DISEASE AND OTHER DISEASES OF THE CIRCULATORY SYSTEM Personal history of other diseases of the digestive system - PERSONAL HISTORY OF OTHER DISEASES OF THE DIGESTIVE SYSTEM documented in this encounter Medications at Time of Discharge ALPRAZolam (XANAX) 0.25 mg tablet Take 1 tablet (0.25 mg total) by mouth 2 (two) times a day as needed for anxiety 10 tablet 07/27/2020 1 aspirin 81 mg chewable tabletIndications:pr evention of thrombosis,dydlipide surinder Take 1 tablet (81 mg total) by mouth daily. 30 tablet 10/20/2018 1 buPROPion XL (WELLBUTRIN XL) 300 mg 24 hr tablet Take 1 tablet (300 mg total) by mouth every morning 90 tablet 1 04/28/2020 1 cholecalciferol (VITAMIN D-3) 1,000 unit Take 1 tablet/capsul e (1,000 Units total) by mouth daily. 90 tablet/capsule 1 10/20/2018 1 hydrOXYzine (ATARAX) 25 mg tablet Take 1 tablet (25 mg total) by mouth nightly 30 tablet 1 07/27/2020 1 lisinopriL (PRINIVIL,ZESTRIL) 5 mg tabletIndications:Es sential hypertension TAKE 1 TABLET DAILY 90 tablet 3 11/26/2019 1 metoprolol XL (TOPROL-XL) 25 mg extended release tabletIndications:Es sential hypertension TAKE 1 TABLET DAILY 90 tablet 3 11/26/2019 1 pramipexole (MIRAPEX) 1.5 mg tabletIndications:Re stless legs [...] documented in this encounter H&P Notes * Antoinette Sawyer MD - 08/26/2020 8:38 AM CST History and Physical Date of visit: 08/26/2020 Subjective: Patient is a 49 y.o. male presented for evaluation for screening for colon cancer. No family history of colon cancer. Past Medical History: Diagnosis Date ??? Anxiety [...] 02/2006 rt ac resection ??? SHOULDER SURGERY Medications Prior to Admission Medication Sig Dispense Refill Last Dose ??? ALPRAZolam (XANAX) 0.25 mg tablet Take 1 tablet (0.25 mg total) by mouth 2 (two) times a day asneeded for anxiety 10 tablet 0 ??? aspirin 81 mg chewable tablet Take 1 tablet (81 mg total) by mouth daily. (Patient not taking: Reported on 07/27/2020) 30 tablet 0 ??? buPROPion XL (WELLBUTRIN XL) 300 mg 24 hr tablet Take 1 tablet (300 mg total) by mouth every morning 90 tablet 1 ??? cholecalciferol (VITAMIN D-3) 1,000 unit Take 1 tablet/capsule (1,000 Units total) by mouth daily. 90 tablet/capsule 1 ??? hydrOXYzine (ATARAX) 25 mg tablet Take 1 tablet (25 mg total) by mouth nightly 30 tablet 1 ??? lisinopriL (PRINIVIL,ZESTRIL) 5 mg tablet TAKE 1 TABLET DAILY 90 tablet 3 ??? metoprolol XL (TOPROL-XL) 25 mg extended release tablet TAKE 1 TABLET DAILY 90 tablet 3 ??? pramipexole (MIRAPEX) 1.5 mg tablet Take 1 tablet (1.5 mg total) by mouth 3 (three) times a day90 tablet 0 ??? pravastatin (PRAVACHOL) 40 mg tablet Take 1 tablet (40 mg total) by mouth daily 30 tablet 0 No Known Allergies Social History Tobacco Use ??? Smoking status: Never Smoker ??? Smokeless tobacco: Former User Types: Chew ??? Tobacco comment: chews, not interested in counseling Substance Use Topics ??? Alcohol use: Yes Comment: can of beer a month Family History Problem Relation Age of Onset ??? Throat cancer Father ??? Hypertension Mother ??? Leukemia Mother Physical Exam: Patient is awake and answers well. Eyes: no jaundice. Lungs: CTA anteriorly. ENT: no mouth ulcers. Abdomen: soft, no distention, no tenderness, bowel sounds positive. Extremities: no edema. Skin: no rash. GI IMPRESSION: 1. Screening for colon cancer GI PLAN/RECOMMENDATIONS: 1. colonoscopy Antoinette Sawyer MD RAGE SPECIALIST documented in this encounter Procedure Notes * Antoientte Sawyer MD - 08/26/2020 7:40 AM CSTAssociated Order(s): COLONOSCOPY [facility] Patient Name: Jaden De La Torre Procedure Date: 08/26/2020 7:40 AM Date of : 1970 Admit Type: Outpatient Age: 49 Gender: Male Attending MD: Antoinette Sawyer M.D. Room: COUNT INCLUDES THE [facility] ENDOSCOPY ROOM 1 Note Status: Finalized Patient Profile: This is a 49 year old male. No family history of colon cancer. No specific GI complaint. Procedure: Colonoscopy Indications: Screening for colorectal malignant neoplasm, This is the patient's first colonoscopy Referring MD: Jane CoradoNAddie Providers: Antoinette Sawyer M.D. Impression: - The entire examined colon is normal. - Internal hemorrhoids. - No specimens collected. Recommendation: - Repeat colonoscopy in 10 years for screening purposes. - Continue present medications. Medicines: Monitored Anesthesia Care Complications: No immediate complications. Estimated Blood Loss: Estimated blood loss: none. Procedure: Pre-Anesthesia Assessment: - Prior to the procedure, a History and Physical was performed, and patient medications and allergies were reviewed. The patient's tolerance of previous anesthesia was also reviewed. The risks and benefits of the procedure and the sedation options and risks were discussed with the patient. All questions were answered, and informed consent was obtained. Prior Anticoagulants: The patient has taken no previous anticoagulant or antiplatelet agents. ASA Grade Assessment: II - A patient with mild systemic disease. After reviewing the risks and benefits, the patient was deemed in satisfactory condition to undergo the procedure. The benefits, risks and alternatives of the procedure and sedation were discussed and informed consent was obtained. All questions were answered. Please refer to the signed informed consent document in the medical record. The scope was passed under direct vision. The Pediatric Colonoscope PCF-H190L [id number] was introduced through the anus and advanced to the the cecum, identified by appendiceal orifice and ileocecal valve. Bowel prep was administered using a split dose. The bowel preparation used was Miralax. The bowel preparation used was bisacodyl tablets. The quality of the bowel preparation was excellent. Findings: The [...] 7:40 AM Procedure Code(s): --- Professional --- 76729, Colonoscopy, flexible; diagnostic, including collection of specimen(s) by brushing or washing, when performed (separate procedure) Diagnosis Code(s): --- Professional --- Z12.11, Encounter for screening for malignant neoplasm of colon K64.8, Other hemorrhoids CPT copyright 2017 [employer]. All rights reserved. The codes documented in this report are preliminary and upon sander and polisher review may be revised to meet current compliance requirements. Recognized by the [employer] [employer] for promoting quality in endoscopy RAGE SPECIALIST documented in this encounter Miscellaneous Notes * Perioperative Nursing Note - Dianna Wells RN - 08/26/2020 9:[address] Sawyer discharged patient to follow up in 10 years for next colonoscopy. Patient is passing air and has no discomfort post procedure. RAGE SPECIALIST documented in this encounter Plan of Treatment Not on file documented as of this encounter Procedures Procedure Name Priority Date/Time Associated Diagnosis Comments COLONOSCOPY 08/26/2020 8:07 AM COVERAGE SPECIALIST Rectal pain Encounter for screening colonoscopy COLONOSCOPY 08/26/2020 7:40 AM COVERAGE SPECIALIST documented in this encounter Results * COLONOSCOPY (08/26/2020 7:40 AM COVERAGE SPECIALIST) Anatomical Region Laterality Modality Other Narrative Procedure Note Antoinette Sawyer MD - 08/26/2020 7:40 AM CST [facility] [place] Patient Name: Jaden De La Torre Procedure Date: 08/26/2020 7:40 AM Date of : 1970 Admit Type: Outpatient Age: 49 Gender: Male Attending MD: Antoinette Sawyer M.D. Room: COUNT INCLUDES THE [facility] ENDOSCOPY ROOM 1 Note Status: Finalized [...] passed under direct vision.The Pediatric Colonoscope PCF-H190L [id number] was introduced through the anus and advanced [...] 7:40 AM Procedure Code(s): --- Professional --- 85051, Colonoscopy, flexible; diagnostic, including collection of specimen(s) by brushing or washing, when performed (separateprocedure) Diagnosis Code(s): --- Professional --- Z12.11, Encounter for screening for malignant neoplasm of colon K64.8, Other hemorrhoids CPT copyright 2017 [employer]. All rights reserved. The codes documented in this report are preliminary and upon sander and polisher reviewmay be revised to meet current compliance requirements. Recognized by the [employer] [employer] for promoting quality in endoscopy us Antoinette Sawyer MD ENDOSCOPY PROCEDURES Final Result documented in this encounter Visit Diagnoses Diagnosis Rectal pain Anal or rectal pain Encounter for screening colonoscopy documented in this encounter Admitting Diagnoses Diagnosis Rectal pain Anal or rectal pain Encounter for screening colonoscopy documented in this encounter Administered Medications Inactive Administered Medications - up to 3 most recent administrations Medication Order MAR Action Action Date Dose Rate Site ondansetron (ZOFRAN) injection 4 mg 4 mg, intravenous, Administer over 2 Minutes, Every 30 min PRN, nausea, vomiting, Starting on Sat08/26/20 at 0728, For 2 doses, Recovery (GI), Indications: Nausea and VomitingIndications:Nausea and Vomiting sodium chloride 0.9% flush 0.5-20 mL 0.5-20 mL, intra-catheter, Every 8 hours scheduled, First dose on Sat08/26/20 at 0800, Pre-Procedure (GI), Flush volume based on line type and size. sodium chloride 0.9% flush 0.5-20 mL 0.5-20 mL, intra-catheter, As needed, line care, Starting on Sat08/26/20 at 0728, Pre-Procedure (GI), Flush volume based on line type and size. Flush before and after each use. sodium chloride 0.9% infusion 30 mL/hr, intravenous, Continuous, Starting on Sat08/26/20 at 0800, Pre-Procedure (GI) New Bag 08/26/2020 7:54 AM COVERAGE SPECIALIST 30 mL/hr 30 mL/hr sodium chloride 0.9% infusion 125 mL/hr, intravenous, Continuous, Starting on Sat08/26/20 at 0800, Recovery (GI) New Bag 08/26/2020 8:12 AM COVERAGE SPECIALIST documented in this encounter Active and Recently Administered Medications Times are shown in COVERAGE SPECIALIST. Scheduled Medication Order 08/24/2020 08/25/2020 08/26/2020 sodium chloride 0.9% flush 0.5-20 mL 0.5-20 mL, intra-catheter, Every 8 hours scheduled, First dose on Sat08/26/20 at 0800, Pre-Procedure (GI), Flush volume based on line type and size. 0737 (MAR Hold - Pro vider: Automatic Transfer Provider - Reason: Patient not available)0800 (Dose Auto Held - Provider: Automatic Transfer Provider)1332 (MAR Unhold - Provider: Automatic Discharge Provider) Continuous Medication Order 08/24/2020 08/25/2020 08/26/2020 sodium chloride 0.9% infusion 30 mL/hr, intravenous, Continuous, Starting on Sat08/26/20 at 0800, Pre-Procedure (GI) 0754 (New Bag - Prov ider: Daphney Murray RN) sodium chloride 0.9% infusion 125 mL/hr, intravenous, Continuous, Starting on Sat08/26/20 at 0800, Recovery (GI) 0812 (New Bag - Prov ider: Aliya Berumen MD) PRN Medication Order 08/24/2020 08/25/2020 08/26/2020 ondansetron (ZOFRAN) injection 4 mg 4 mg, intravenous, Administer over 2 Minutes, Every 30 min PRN, nausea, vomiting, Starting on Sat08/26/20 at 0728, For 2 doses, Recovery (GI), Indications: Nausea and Vomiting 0737 (MAR Hold - Pro vider: Automatic Transfer Provider - Reason: Patient not available)1332 ([facility] Unhold - Provider: Automatic Discharge Provider) sodium chloride 0.9% flush 0.5-20 mL 0.5-20 mL, intra-catheter, As needed, line care, Starting on Sat08/26/20 at 0728, Pre-Procedure (GI), Flush volume based on line type and size. Flush before and after each use. 0737 (MAR Hold - Pro vider: Automatic Transfer Provider - Reason: Patient not available)1332 (MAR Unhold - Provider: Automatic Discharge Provider) documented in this encounter Orders Medications Ordered That Aden ht Not Have Been Administered Count Last Ordered Date First Ordered Date ondansetron (ZOFRAN) injection 4 mg 1 08/26 sodium chloride 0.9% flush 0.5-20 mL 2 08/09 sodium chloride 0.9% infusion 1 08/26/2020 documented in this encounter Care Teams Senior Tech Manufacturing Engineering Relationship Specialty Start Date End Date Laura Tapia NP PCP - General Family Medicine 09/30/19 10/01/22 documented as of this encounter
--- OUTSIDE RECORDS SUMMARY | 2024-09-17 12:56 | XMS_ITS | Encounter Summary ---
Author Organization [facility] Address [address] [place] [address] Care Team Providers Care General Farmer Name Role Phone Laura Hernandez NP Primary Care Provider [phone] Reason for Referral * Diagnostic Imaging (Routine) - Closed Specialty Diagnoses / Procedures Referred By Zaida t Referred To Contact Radiology Diagnoses Benign ganglioneuroma of abdomen Generalized abdominal pain Procedures CT Abdomen Pelvis W Contrast Laura Hernandez NP Phone: tel: fax: [address] [phone] Referral ID Status Reason Start Date Expiration Date Visits Re quested Visits Authorized [id number] Closed 04/28/2020 05/28/2021 1 1 Reason for Visit * Reason Comments Hypertension Hyperlipidemia GERD Anxiety/Depression Diabetes Encounter Details Date Type Department Care Team (Late st Contact Info) Description 04/28/2020 4:00 PM CDT Office Visit [facility] [address] [place] [phone] Laura Hernandez NP [address] [place] [id number] Essential hypertension (Primary Dx); Mixed hyperlipidemia; Obstructive sleep apnea syndrome; Primary insomnia; Restless legs syndrome; Benign ganglioneuroma of abdomen; Generalized abdominal pain; Anger reaction; Class 1 obesity due to excess calories without serious comorbidity with body mass index (BMI) of 34.0 to 34.9 in adult; Rectal pain; Colon cancer screening; Myalgia; Nocturia Social History Tobacco Use Types Packs/Day Years [...] on file 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 [employer] Gender Identity Not on file Sexual Orientation Not on file documented as of this encounter Last Filed Vital Signs Vital Sign Reading Time Taken Comments Blood Pressure 138/80 04/28/2020 4:03 PM CDT Pulse 74 04/28/2020 4:03 PM CDT Temperature 36.4 ??C (97.5 ??F) 04/28/2020 4:03 PM CD T Respiratory Rate 12 04/28/2020 4:03 PM CDT Oxygen Saturation 97% 04/28/2020 4:03 PM CDT Inhaled Oxygen Concentration - - Weight 124.8 kg (275 lb 1.6 oz) 04/28/2020 4:03 PM CDT Height 188 cm (6' 2 ) 04/28/2020 4:03 PM CDT Body Mass Index 35.32 04/28/2020 4:03 PM CDT documented in this encounter Ordered Prescriptions Prescription Sig Dispense Quantity Refills Last Filled Start Date End Date buPROPion XL (WELLBUTRIN XL) 300 mg 24 hr tablet Take 1 tablet (300 mg total) by mouth every morning 90 tablet 1 04/28/2020 1 documented in this encounter Progress Notes * Laura Hernandez NP - 04/28/2020 4:00 PM CDT Images from the original note were not included. Subjective/Objective Patient ID: Thomas Clement is a 49 y.o. male. Assessment/Plan Diagnoses and all orders for this visit: Essential hypertension (Primary) Assessment & Plan: Discussed/ordered labs, Condition is stable encouraged healthy, low carbohydrate lifestyle and at least 150min/week of exercise, continue on metoprolol xl 25mg daily, lisinopril 5mg daily and [id number] daily Orders: - CBC with auto differential; Future - Comprehensive metabolic panel; Future - TSH; Future Mixed hyperlipidemia Assessment & Plan: Discussed/ordered labs, Condition is stable encouraged healthy, low carbohydrate lifestyle and at least 150min/week of exercise, continue on pravastatin 40mg daily Orders: - Lipid panel; Future Obstructive sleep apnea syndrome Assessment & Plan: Discussed/ordered labs, Condition is stable encouraged healthy, low carbohydrate lifestyle and at least 150min/week of exercise, continue on cpap Primary insomnia Assessment & Plan: Discussed/ordered labs, Condition is stable encouraged healthy, low carbohydrate lifestyle and at least 150min/week of exercise, continue on cpap Restless legs syndrome Assessment & Plan: Discussed/ordered labs, Condition is stable encouraged healthy, low carbohydrate lifestyle and at least 150min/week of exercise, continue on mirapex and cpap Benign ganglioneuroma of abdomen Assessment & Plan: Repeat CT abd/pelvis for monitoring growth ordered Orders: - CT Abdomen Pelvis W Contrast; Future Generalized abdominal pain Assessment & Plan: CT abd/pelvis ordered Orders: - CT Abdomen Pelvis W Contrast; Future Anger reaction Assessment & Plan: Discussed/ordered labs, Condition is worsening encouraged healthy, [...] in 4-6 wks or sooner if needed. Class 1 obesity due to excess calories without serious comorbidity with body mass index (BMI) of 34.0 to 34.9 in adult Assessment & Plan: Healthy, low carbohydrate lifestyle and exercise for [...] in much longer they will become mushy [place] and/or coconut flour instead of regular flour [...] ideas. Type in low carb... Orders: - Hemoglobin A1c; Future Rectal pain Comments: EDITA done, stool card negative for blood. recommend colonoscopy. referral placed for screening colonoscopy Orders: - Ambulatory referral to Gastroenterology; Future Colon cancer screening - Ambulatory referral to Gastroenterology; Future Myalgia - Vitamin D 25 hydroxy; Future Nocturia - Urinalysis reflex to microscopic and culture Urine, clean voided; Future Other orders - buPROPion XL (WELLBUTRIN XL) 300 mg 24 hr tablet; Take 1 tablet (300 mg total) by mouth every morning Follow up 6 Weeks Chief Complaint Hypertension, Hyperlipidemia, GERD, Anxiety/Depression, and Diabetes Current complaints: If you push on his stomach it hurts really bad, not sure if it is a kidney stone moving because it seems to hurt more when he is in equipment that bounces around He gets up multiple times at night to urinate He has been stressed very bad, his mom's health is very bad. His is noticing that he is off, little things are throwing him through the roof Pt feels something like a knot on the inside of his rectum when he stools Patient here today to discuss chronic conditions and discuss labs/have labs ordered Hypertension Pertinent negatives include no chest pain or shortness of breath. Hyperlipidemia Associated symptoms include myalgias. Pertinent negatives include no chest pain or shortness of breath. GERD He complains of abdominal pain. He reports no chest pain. Diabetes Pertinent negatives for diabetes include no chest pain. Review of Systems Respiratory: Negative for shortness of breath. Cardiovascular: Negative for chest pain. Gastrointestinal: Positive for abdominal pain and rectal pain. Genitourinary: Nocturia Musculoskeletal: Positive for myalgias. Psychiatric/Behavioral: Positive for agitation, behavioral problems (anger) and dysphoric mood. Negative for suicidal ideas. BP 138/80 (BP Location: Left arm, Patient Position: Sitting) Pulse 74 Temp 36.4 ??C (97.5 ??F) Comment (Src): Infra red Resp 12 Ht 188 cm (6' 2 ) Wt 124.8 kg (275 lb 1.6 oz) SpO2 97% BMI 35.32 kg/m?? Physical Exam Exam conducted with a tie in hand present (Keke Vidales MA). Constitutional: General: He is not in acute [...] rhythm. Pulses: Normal pulses. Heart sounds: No murmur. Pulmonary: Effort: Pulmonary effort is normal. Breath sounds: Normal breath sounds. Abdominal: General: Bowel sounds are normal. Palpations: Abdomen is soft. Tenderness: There is generalized abdominal tenderness. Genitourinary: Rectum: Guaiac result negative. Tenderness present. No external hemorrhoid. Musculoskeletal: Normal range of motion. Lymphadenopathy: Cervical: No cervical adenopathy. Skin: General: Skin is warm and dry. Capillary Refill: Capillary refill takes less than 2 seconds. Neurological: Mental Status: He is alert and oriented to person, place, and time. Psychiatric: Mood and Affect: Mood normal. Laura Hernandez NP documented in this encounter Miscellaneous Notes * Assessment & Plan Note - Laura Hernandez NP - 04/28/2020 10:10 PM CDTAssociated Problem(s): Restless legs syndrome Discussed/ordered labs, Condition is stable encouraged healthy, low carbohydrate lifestyle and at least 150min/week of exercise, continue on mirapex and cpap * Assessment & Plan Note - Laura Hernandez NP - 04/28/2020 10:10 PM CDTAssociated Problem(s): Obstructive sleep apnea syndrome Discussed/ordered labs, Condition is stable encouraged healthy, low carbohydrate lifestyle and at least 150min/week of exercise, continue on cpap * Assessment & Plan Note - Laura Hernandez NP - 04/28/2020 10:07 PM CDTAssociated Problem(s): Anger reaction Discussed/ordered labs, Condition is worsening encouraged healthy, [...] in 4-6 wks or sooner if needed. * Assessment & Plan Note - Laura Hernandez NP - 04/28/2020 10:06 PM CDTAssociated Problem(s): Benign ganglioneuroma of abdomen Repeat CT abd/pelvis for monitoring growth ordered * Assessment & Plan Note - Laura Hernandez NP - 04/28/2020 9:56 PM CDTAssociated Problem(s): Generalized abdominal pain (Resolved 10/18/2021) CT abd/pelvis ordered * Assessment & Plan Note - Laura Hernandez NP - 04/28/2020 9:55 PM CDTAssociated Problem(s): Insomnia Discussed/ordered labs, Condition is stable encouraged healthy, low carbohydrate lifestyle and at least 150min/week of exercise, continue on cpap * Assessment & Plan Note - Laura Hernandez NP - 04/28/2020 9:55 PM CDTAssociated Problem(s): Hyperlipidemia Discussed/ordered labs, Condition is stable encouraged healthy, low carbohydrate lifestyle and at least 150min/week of exercise, continue on pravastatin 40mg daily * Assessment & Plan Note - Laura Hernandez NP - 04/28/2020 9:55 PM CDTAssociated Problem(s): Class 2 obesity due to excess calories without serious comorbidity with bodymass index (BMI) of 36.0 to 36.9 in adult (Resolved 11/12/2022) Healthy, low carbohydrate lifestyle and exercise for [...] in much longer they will become mushy [place] and/or coconut flour instead of regular flour [...] * Assessment & Plan Note - Laura Hernandez NP - 04/28/2020 9:54 PM CDTAssociated Problem(s): Essential hypertension Discussed/ordered labs, Condition is stable encouraged healthy, low carbohydrate lifestyle and at least 150min/week of exercise, continue on metoprolol xl 25mg daily, lisinopril 5mg daily and [id number] daily documented in this encounter Plan of Treatment Not on file documented as of this encounter Results * CT Abdomen Pelvis W Contrast (05/18/2020 4:04 PM CDT) Anatomical Region Laterality Modality Body N/A Computed Tomogra phy 05/18/2020 3:52 PM CDT Impressions 05/19/2020 9:36 AM CDT ?? Stable retroperitoneal mass consistent with the given history of ganglioneuroma. Diverticulosis without diverticulitis. THIS IS AN ELECTRONICALLY VERIFIED FINAL REPORT 05/19/2020 9:33 AM - Electronically signed by Augustine Hargrove M.D. NC: CASE D: ??05/19/2020 9:33 AM T: ??05/19/2020 9:33 AM Report ID: [id number] Reading Location: ??[id number] Narrative 05/19/2020 9:36 AM CDT [facility] ?Imaging Result Name: THOMAS CLEMENT ? Ordering Phys: LAURA HERNANDEZ Age: 49 ?Date of : 1970 ? Accession Number: [id number] Date of Service: 05/18/2020 ??Gender: M EXAM DESCRIPTION: ?? CT ABDOMEN PELVIS W CONTRAST REASON FOR STUDY: ?? follow up ganglioneuroma, pt having abdominal pain now. found and biopsied 01/2019Optiray 320 100cc rt ac 20g.. oral contrastDuration: 01/2019 TECHNIQUE: ??CT scan of the abdomen and pelvis performed with intravenous and with oral contrast using helical scanning technique with dynamic intravenous contrast injection. Reconstructed coronal and sagittal MPR images reviewed. All images stored on PACS. Automated exposure control was used as a dose optimization technique for this examination. CONTRAST TYPE/DOSE: ?? 100cc of optirya 320 ??injected via ??rt ac 20 g COMPARISON: ?? 06/09/2019 ??LOWER CHEST: ??No significant pulmonary abnormalities. No effusion. LIVER: ??Normal size. ??No identified cystic or solid masses. GALLBLADDER: ??Unremarkable gallbladder. BILE DUCTS: ??No intrahepatic or extrahepatic ductal dilatation. SPLEEN: ??Normal size. ??No focal lesions. PANCREAS: ??No identified cystic or solid masses. No significant calcifications. No adjacent inflammation or peripancreatic fluid collections. Pancreatic duct not dilated. ADRENALS: ??Normal. KIDNEYS/URINARY TRACT: ??No identified significant cystic or solid masses. No visualized stones. No hydronephrosis or hydroureter. Symmetric enhancement. Urinary bladder is unremarkable. GI: ??No dilated bowel loops. No obvious wall thickening. Normal appendix. Scattered diverticular disease without diverticulitis. PERITONEUM: ??No ascites or free air. RETROPERITONEUM: ??Stable retroperitoneal mass measuring approximately 5.3 x 2.3 cm consistent with the given history of ganglioneuroma. REPRODUCTIVE: ??No significant abnormality. VASCULATURE: ??No abdominal aortic aneurysm. MUSCULOSKELETAL: ??No significant abnormality. OTHER: ??No other abnormality. Procedure Note Augustine Hargrove MD - 05/19/2020 [facility] Imaging Result Name: THOMAS CLEMENT Ordering Phys: LAURA HERNANDEZ Age: 49 Date of : 1970 Accession Number: [id number] Date of Service: 05/18/2020 Gender: M EXAM DESCRIPTION: CT ABDOMEN PELVIS W CONTRAST REASON FOR STUDY: follow up ganglioneuroma, pt having abdominal painnow. found and biopsied 01/2019Optiray 320 100cc rt ac 20g.. oralcontrastDuration: 01/2019 TECHNIQUE: CT scan of the abdomen and pelvis performed with intravenousand with oral contrast using helical scanning technique with dynamicintravenous contrast injection. Reconstructed coronal and sagittal MPR imagesreviewed. All images stored on PACS. Automated exposure control was used as a dose optimization technique forthis examination. CONTRAST TYPE/DOSE: 100cc of optirya 320 injected via rt ac 20 g COMPARISON: 06/09/2019 LOWER CHEST: No significant pulmonary abnormalities. No effusion. LIVER: Normal size. No identified cystic or solid masses. GALLBLADDER: Unremarkable gallbladder. BILE DUCTS: No intrahepatic or extrahepatic ductal dilatation. SPLEEN: Normal size. No focal lesions. PANCREAS: No identified cystic or solid masses. No significant calcifications. No adjacent inflammation or peripancreatic fluidcollections. Pancreatic duct not dilated. ADRENALS: Normal. KIDNEYS/URINARY TRACT: No identified significant cystic or solid masses.No visualized stones. No hydronephrosis or hydroureter. Symmetricenhancement. Urinary bladder is unremarkable. GI: No dilated bowel loops. No obvious wall thickening. Normalappendix. Scattered diverticular disease without diverticulitis. PERITONEUM: No ascites or free air. RETROPERITONEUM: Stable retroperitoneal mass measuring approximately 5.3x 2.3 cm consistent with the given history of ganglioneuroma. REPRODUCTIVE: No significant abnormality. VASCULATURE: No abdominal aortic aneurysm. MUSCULOSKELETAL: No significant abnormality. OTHER: No other abnormality. IMPRESSION: Stable retroperitoneal mass consistent with the given history of ganglioneuroma. Diverticulosis without diverticulitis. THIS IS AN ELECTRONICALLY VERIFIED FINAL REPORT 05/19/2020 9:33 AM - Electronically signed by Augustine Hargrove M.D. NC: CASE Report ID: [id number] Reading Location: [place] [address] Laura Hernandez OPERATIONS COORDINATOR IMG CT PROCEDURES Final Res ult * (ABNORMAL) Urinalysis reflex to microscopic and culture Urine, clean voided (05/02/2020 10:27 AM CDT) Color, ur Yellow Yellow [facility] Clarity, ur Clear Clear [facility]) Specific gravity, ur 1.028(H) 1.010 - 1.025 [facility] pH, urine 5.5 [facility] Protein, ur ql Trace Negative [facility]) Glucose, ur ql Negative Negative [facility]) Ketones, ur Negative Negative [facility]) Bilirubin, ur Negative Negative [facility]) Blood, ur Negative Negative [facility]) Urobilinogen, ur <2.0 <2.0 mg/dL [facility]) Nitrite, ur Negative Negative [facility]) Leukocyte esterase, ur 2+(A) Negative [facility]) UA reflex comment Reflex to microscopic UA will be performed. [facility]) Urine, clean voided 05/02/2020 10:27 AM CDT 05/02/2020 1:16 PM CDT Narrative [facility] ([place]) - 05/02/2020 1:37 PM CDT ?? Urine pH is affected by diet, medications, systemic acid-base disturbances, and renal tubular function. ??pH may affect urinary stone formation. ??For example, urine pH below 6.0 may help reduce the tendency for calcium phosphate stones and pH greater than 6.0 may reduce the tendency for uric acid stone formation. Source: [facility]. Last revised 09-19-2017 Laura Hernandez OPERATIONS COORDINATOR LAB MICROBIOLOGY - GENERAL ORDERABLES Final Result Performing Organization Address [facility] Co de Phone Number [facility] ([place] [address] [place] [address] * Vitamin D 25 hydroxy (05/02/2020 10:27 AM CDT) Vitamin D 25-OH 49 30 - 80 ng/mL [facility] ([place]) Blood specimen (specimen) 05/02/2020 10:27 AM CDT 05/02/2020 1:15 PM CDT Laura Hernandez NP LAB BLOOD ORDERABLES Final Result Performing Organization Address [facility] de Phone Number [facility] [address] [facility] [place] [address] * TSH (05/02/2020 10:27 AM CDT) Thyroid Stimulating Hormone 2.99 0.30 - 4.20 mcIUnit/mL [facility] ([place]) Blood specimen (specimen) 05/02/2020 10:27 AM CDT 05/02/2020 1:15 PM CDT Laura Hernandez LAB BLOOD ORDERABLES Final Result Performing Organization Address [facility] Co de Phone Number [facility] ([place] [address] [facility] [place] [address] * (ABNORMAL) Lipid panel (05/02/2020 10:27 AM CDT) Cholesterol 202(H) 30 - 199 mg/dL [facility] ([place]) [...] Data was last revised on 2018. Triglycerides 180(H) <=149 mg/dL [facility] Comment: Interpretive [...] Data was last revised on 2018. HDL 41 >=40 mg/dL [facility] Comment: Interpretive [...] was last revised on 2018. LDL, calculated 125 <=129 mg/dL [facility] Comment: Interpretive Data Ages < [...] was last revised on 2018. Non-HDL Cholesterol 161 mg/dL [facility] Comment: Interpretive Data [...] revised on 2018. Chol/HDL ratio 5 [facility] ([place]) Blood specimen (specimen) 05/02/2020 10:27 AM CDT 05/02/2020 1:15 PM CDT Laura Regina OPERATIONS COORDINATOR LAB BLOOD ORDERABLES Final Result [facility] [address] [facility] Department [place] [address] * Comprehensive metabolic panel (05/02/2020 10:27 AM CDT) Sodium 140 135 - 145 mmol/L [facility] Potassium, pl 4.1 3.3 - 4.9 mmol/L [facility] Chloride 104 97 - 110 mmol/L [facility] CO2 26 22 - 32 mmol/L [facility] Anion gap 10 2 - 15 mmol/L [facility] BUN 11 8 - 25 mg/dL [facility] Creatinine 1.02 0.80 - 1.30 mg/dL [facility] Glucose 101 70 - 199 mg/dL [facility] [...] interpretive data was last revised 2017. Calcium 9.8 8.5 - 10.3 mg/dL [facility]) Bilirubin, total 1.1 0.1 - 1.2 mg/dL [facility]) Protein, pl 7.6 6.5 - 8.5 g/dL [facility]) Albumin 4.9 3.5 - 5.0 g/dL [facility]) Alk phos 102 40 - 130 Units/L [facility] ALT 33 7 - 55 Units/L [facility] AST 25 10 - 50 Units/L [facility]) Blood specimen (specimen) 05/02/2020 10:27 AM CDT 05/02/2020 1:15 PM CDT us Laura Hernandez OPERATIONS COORDINATOR LAB BLOOD ORDERABLES Final Result [facility] 1 [facility] [place] [address] * CBC with auto differential (05/02/2020 10:27 AM CDT) WBC 4.6 3.8 - 9.9 K/cumm [facility] Hgb 15.5 13.0 - 17.5 g/dL [facility] Hct 45.4 38.9 - 50.3 % [facility] Plt 236 150 - 400 K/cumm [facility] MPV 10.2 9.1 - 12.3 fL [facility] RBC 4.86 4.30 - 5.80 M/cumm [facility] MCV 93.4 81.3 - 96.4 fL [facility] MCH 31.9 27.1 - 33.3 pg [facility] MCHC 34.1 32.3 - 35.7 g/dL [facility] RDW CV 12.1 11.1 - 14.9 % [facility] RDW SD 41.5 35.7 - 48.1 fL [facility] NRBC abs 0.00 0.00 - 0.01 K/cumm [facility]) Blood specimen (specimen) 05/02/2020 10:27 AM CDT 05/02/2020 1:15 PM CDT us Laura Hernandez NP LAB BLOOD ORDERABLES Final Result [facility] 1 [facility] [place] [address] * Hemoglobin A1c (05/02/2020 10:27 AM CDT) Hgb A1C 5.2 4.0 - 5.6 % [facility] Estimated Average Glucose 103 mg/dL [facility] Comment: The ADA recommends reporting an estimated Average Glucose (eAG) with all Hemoglobin A1c results using the equation derived from a study of 507 normal and diabetic adults. ??Minority populations were underrepresented and children were not included. ?? (Diabetes Care 31:7130-3194, 2008). ??The eAG is not equivalent to a fasting glucose. Blood specimen (specimen) 05/02/2020 10:27 AM CDT 05/02/2020 1:15 PM CDT Laura Hernandez NP LAB BLOOD ORDERABLES Final Result [facility] [address] [facility] Department [place] [address] documented in this encounter Visit Diagnoses Diagnosis Essential hypertension- Primary Unspecified essential hypertension Mixed hyperlipidemia Obstructive sleep apnea syndrome Obstructive sleep apnea (adult) (pediatric) Primary insomnia Persistent disorder of initiating or maintaining sleep Restless legs syndrome Restless legs syndrome (RLS) Benign ganglioneuroma of abdomen Generalized abdominal pain Abdominal pain, generalized Anger reaction Undersocialized conduct disorder, aggressive type, unspecified Class 1 obesity due to excess calories without serious comorbidity with body mass index (BMI) of 34.0 to 34.9 in adult Rectal pain Anal or rectal pain Colon cancer screening Special screening for malignant neoplasms, colon Myalgia Unspecified myalgia and myositis Nocturia Nocturia Class 1 obesity due to excess calories without serious comorbidity with body mass index (BMI) of 34.0 to 34.9 in adult Essential hypertension Unspecified essential hypertension Mixed hyperlipidemia Myalgia Unspecified myalgia and myositis Benign ganglioneuroma of abdomen Generalized abdominal pain Abdominal pain, generalized documented in this encounter Discontinued Medications Medication Sig Discontinue Reason Start Date End Da te buPROPion XL (WELLBUTRIN XL) 150 mg 24 hr tabletIndications:Essenti al hypertension TAKE 1 TABLET DAILY 11/26/2019 04/28/2020 documented as of this encounter Care Teams General Farmer Relationship Specialty Start Date End Date Laura Hernandez NP PCP - General Family Medicine 09/30/19 10/01/22 documented as of this encounter
--- OUTSIDE RECORDS SUMMARY | 2024-09-17 12:56 | XMS_ITS | Encounter Summary ---
Author Organization [facility] Healthcare Address [address] [place] [address] Care Team Providers Care Cement Breaker Name Role Phone Regina Laura PHILLIPS Primary Care Provider [phone] Encounter Details Date Type Department Care Team (Late st Contact Info) Description 08/26/2020 8:00 AM RENT COLLECTOR - 08/26/2020 8:30 AM RENT COLLECTOR Surgery [facility] [address] [place] [address] Antoinette Sawyer MD [address] [place] [id number] COLONOSCOPY Surgery Details Date/Time Status Location OR Service Patient Class Case Class Case Type Trauma Case? 08/26/2020 8:00 AM Posted [facility] ENDOSCOPY GI 01 Gastroenterology Outpatient Elective Panel 1 Procedure LRB Anes Op Region Wound Class Comments COLONOSCOPY N/A Monitor Anesthes ia Care Colon Class II - Clean Contaminated Surgeon Surgeon Role Service Panel Antoinette Sawyer MD Primary Gastroenterology 1 documented in this encounter Social History [...] on file 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 RENT COLLECTOR Gender Identity Not on file Sexual Orientation Not on file documented as of this encounter Last Filed Vital Signs Vital Sign Reading Time Taken Comments Blood Pressure 126/78 08/26/2020 7:34 AM RENT COLLECTOR Pulse 71 08/26/2020 7:34 AM RENT COLLECTOR Temperature 36.8 ??C (98.2 ??F) 08/26/2020 7:34 AM CS T Respiratory Rate 18 08/26/2020 7:34 AM RENT COLLECTOR Oxygen Saturation 97% 08/26/2020 7:34 AM RENT COLLECTOR Inhaled Oxygen Concentration - - Weight - [...] GI PLAN/RECOMMENDATIONS: 1. colonoscopy Antoinette Sawyer MD COLLECTOR documented in this encounter Procedure Notes * Antoinette Sawyer MD - 08/26/2020 7:40 AM CSTAssociated Order(s): COLONOSCOPY [facility] Patient Name: Jaden De La Torre Procedure Date: 08/26/2020 7:40 AM Date of : 1970 Admit Type: Outpatient Age: 49 Gender: Male Attending MD: Antoinette Sawyer M.D. Room: [facility] ENDOSCOPY ROOM 1 Note Status: Finalized [...] under direct vision. The Pediatric Colonoscope PCF-H190L [id number] was introduced through the anus and advanced [...] 7:40 AM Procedure Code(s): --- Professional --- 68183, Colonoscopy, flexible; diagnostic, including collection of specimen(s) by brushing or washing, when performed (separate procedure) Diagnosis Code(s): --- Professional --- Z12.11, Encounter for screening for malignant neoplasm of colon K64.8, Other hemorrhoids CPT copyright 2017 [employer]. All rights reserved. The codes documented in this report are preliminary and upon supervisor concrete stone finishing review may be revised to meet current compliance requirements. Recognized by the [employer] for promoting quality in endoscopy COLLECTOR documented in this encounter Miscellaneous Notes * Perioperative Nursing Note - Dianna Wells, RN - 08/26/2020 9:[address] Sawyer discharged patient to follow up in 10 years for next colonoscopy. Patient is passing air and has no discomfort post procedure. COLLECTOR documented in this encounter Plan of Treatment Not on file documented as of this encounter Procedures Procedure Name Priority Date/Time Associated Diagnosis Comments COLONOSCOPY 08/26/2020 8:07 AM RENT COLLECTOR Rectal pain Encounter for screening colonoscopy COLONOSCOPY 08/26/2020 7:40 AM RENT COLLECTOR documented in this encounter Results * COLONOSCOPY (08/26/2020 7:40 AM RENT COLLECTOR) Anatomical Region Laterality Modality Other Narrative Procedure Note Antoinette Sawyer MD - 08/26/2020 7:40 AM CST [facility] Center Patient Name: Jaden De La Torre Procedure Date: 08/26/2020 7:40 AM Date of : 1970 Admit Type: Outpatient Age: 49 Gender: Male Attending MD: Antoinette Sawyer M.D. Room: [facility] ENDOSCOPY ROOM 1 Note Status: Finalized Patient Profile: This is a 49 year old male. No family history ofcolon cancer. No specific GI complaint. Procedure: Colonoscopy Indications: Screening for colorectal malignant neoplasm, This is the patient's first colonoscopy Referring MD: Laura Tapia, F.N.PSandra Providers: Antoinette Sawyer M.D. Impression: - The [...] passed under direct vision.The Pediatric Colonoscope PCF-H190L [id number] was introduced through the anus and advanced [...] 7:40 AM Procedure Code(s): --- Professional --- 29631, Colonoscopy, flexible; diagnostic, including collection of specimen(s) by brushing or washing, when performed (separateprocedure) Diagnosis Code(s): --- Professional --- Z12.11, Encounter for screening for malignant neoplasm of colon K64.8, Other hemorrhoids CPT copyright 2017 [employer]. All rights reserved. The codes documented in this report are preliminary and upon supervisor concrete stone finishing reviewmay be revised to meet current compliance requirements. Recognized by the [employer] for promoting quality in endoscopy Antoinette Sawyer MD ENDOSCOPY PROCEDURES Final Result documented in this encounter Visit Diagnoses Diagnosis Rectal pain Anal or rectal pain Encounter for screening colonoscopy Rectal pain Anal or rectal pain Encounter [...] Pre-Procedure (GI) New Bag 08/26/2020 7:54 AM RENT COLLECTOR 30 mL/hr 30 mL/hr sodium chloride 0.9% infusion 125 mL/hr, intravenous, Continuous, Starting on Sat08/26/20 at 0800, Recovery (GI) New Bag 08/26/2020 8:12 AM RENT COLLECTOR documented in this encounter Active and Recently Administered Medications Times are shown in RENT COLLECTOR. Scheduled Medication Order 08/24/2020 08/25/2020 08/26/2020 sodium [...] (MAR Unhold - Provider: Automatic Discharge Provider) sodium chloride 0.9% flush 0.5-20 mL 0.5-20 mL, intra-catheter, As needed, line care, Starting on Sat08/26/20 at 0728, Pre-Procedure (GI), Flush volume based on line type and size. Flush before and after each use. 0737 (MAR Hold - Pro vider: Automatic Transfer Provider - Reason: Patient not available)1332 ([facility] Unhold - Provider: Automatic Discharge Provider) documented in this encounter Orders Medications Ordered That Aden ht Not Have Been Administered Count Last Ordered Date First Ordered Date ondansetron (ZOFRAN) injection 4 mg 1 08/26 sodium chloride 0.9% flush 0.5-20 mL 2 08/09 sodium chloride 0.9% infusion 1 08/26/2020 documented in this encounter Care Teams Cement Breaker Relationship Specialty Start Date End Date Laura Tapia NP PCP - General Family Medicine 09/30/19 10/01/22 documented as of this encounter
--- OUTSIDE RECORDS SUMMARY | 2024-09-17 12:56 | XMS_ITS | Encounter Summary ---
Author Organization [facility] Medical Group Address [address] [place] [address] Care Team Providers Care Eap Consultant Name Role Phone Laura Tapia NP Primary Care Provider [phone] Reason for Visit * Reason Onset Date Comments Heel Spurs 01/11/2020 Encounter Details Date Type Department Care Team (Late st Contact Info) Description 01/11/2020 Telephone [facility] [address] [place] [address] Laura Tapia, ALAN [address] [place] [address] Heel Spurs Social History Tobacco Use Types Packs/Day Years [...] on file 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 He went there to have his plantar Fascitis looked at. The chiropractor suggested that he have an xray done. She thinks he may have a heel spur. Right foot. Please advise. documented in this encounter Plan of Treatment Not on file documented as of this encounter Visit Diagnoses Not on filedocumented in this encounter Care Teams Eap Consultant Relationship Specialty Start Date End Date Laura Tapia NP PCP - General Family Medicine 09/30/19 10/01/22 documented as of this encounter
--- OUTSIDE RECORDS SUMMARY | 2024-09-17 12:56 | XMS_ITS | Encounter Summary ---
Author Organization [facility] Medical Group Address [address] [place] [address] Care Team Providers Care Crusher Loader Operator Name Role Phone Laura Tapia NP Primary Care Provider [phone] Reason for Referral * Diagnostic Imaging (Routine) - Closed Specialty Diagnoses / Procedures Referred By Zaida camacho Referred To Contact Diagnoses Right foot pain Procedures XR Foot Right 3+ Vw Laura Tapia NP Phone: tel: fax: [address] [phone] Referral ID Status Reason Start Date Expiration Date Visits Re quested Visits Authorized [id number] Closed 01/11/2020 07/22/2021 1 1 Encounter Details Date Type Department Care Team (Late st Contact Info) Description 01/11/2020 Orders Only [facility] [address] [place] [phone] Laura Tapia NP [address] [place] [address] Right foot pain (Primary Dx) Social History Tobacco Use [...] on file 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 ??No evidence of an acute osseous abnormality. 2. ??Small plantar calcaneal enthesophyte. Electronically signed by: Wilfredo Moreno M.D. Narrative 01/11/2020 4:31 PM CDT EXAMINATION: XR FOOT RIGHT 3 OR MORE VIEWS ORDERING HEALTHCARE PROVIDER: LAURA HARRIS HISTORY: Right foot pain in right heel pain for 2 months. TECHNIQUE: 3 radiographic views of the right foot were obtained. COMPARISON: ??None available. FINDINGS: BONES: There is no evidence of acute fracture or dislocation. Alignment is normal. ??The joint spaces are preserved. ??There are small Achilles tendon and plantar calcaneal enthesophytes. ??There are no aggressive appearing osseous lesions. SOFT TISSUES: The visualized soft tissues are normal in appearance. Procedure Note Wilfredo Moreno MD - 01/11/2020 EXAMINATION: XR FOOT RIGHT 3 OR MORE VIEWS ORDERING HEALTHCARE PROVIDER: LAURA HARRIS HISTORY: Right foot pain in right heel pain for 2 months. TECHNIQUE: 3 radiographic views of the right foot were obtained. COMPARISON: None available. FINDINGS: BONES: There is no evidence of acute fracture or dislocation. Alignment is normal. The joint spaces are preserved. There are small Achilles tendon and plantar calcaneal enthesophytes. There are no aggressive appearing osseous lesions. SOFT TISSUES: The visualized soft tissues are normal in appearance. IMPRESSION: 1. No evidence of an acute osseous abnormality. 2. Small plantar calcaneal enthesophyte. Electronically signed by: Wilfredo Moreno M.D. us Laura Tapia NP IMG XR PROCEDURES Final Res ult documented in this encounter Visit Diagnoses Diagnosis Right foot pain- Primary Pain in soft tissues of limb Right foot pain Pain in soft tissues of limb documented in this encounter Care Teams Crusher Loader Operator Relationship Specialty Start Date End Date Laura Tapia NP PCP - General Family Medicine 09/30/19 10/01/22 documented as of this encounter
--- OUTSIDE RECORDS SUMMARY | 2024-09-17 12:56 | XMS_ITS | Encounter Summary ---
Author Organization [facility] Healthcare Address [address] [place] [address] Care Team Providers Care Tank Refinisher Name Role Phone Laura Tapia NP Primary Care Provider [phone] Reason for Referral * Diagnostic Imaging (Routine) - Closed Specialty Diagnoses / Procedures Referred By Zaida camacho Referred To Contact Diagnoses Right foot pain Procedures XR Foot Right 3+ Vw Laura Tapia NP Phone: tel: fax: [address] [phone] Referral ID Status Reason Start Date Expiration Date Visits Re quested Visits Authorized [id number] Closed 01/11/2020 07/22/2021 1 1 Reason for Visit * Diagnostic Imaging (Routine) - Closed Specialty Diagnoses / Procedures Referred By Zaida camacho Referred To Contact Diagnoses Right foot pain Procedures XR Foot Right 3+ Vw Laura Tapia NP Phone: tel: fax: [address] [phone] Referral ID Status Reason Start Date Expiration Date Visits Re quested Visits Authorized [id number] Closed 01/11/2020 07/22/2021 1 1 Encounter Details Date Type Department Care Team (Late st Contact Info) Description 01/11/2020 3:45 PM CDT - 01/11/2020 11:59 PM CDT Hospital Encounter [facility] [address] [place] [id number] Brandon Aguayo MD [address] [place] [address] Laura Tapia NP [address] [facility] [place] [address] Right foot pain Discharge Disposition: Discharge to home or [...] on file 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 Gender Identity Not on file Sexual Orientation Not on file documented as of this encounter Medications at Time of Discharge raNITIdine (ZANTAC) 300 mg tabletIndications: Laryngopharyngeal reflux (LPR),Abnormal gag reflex Take 1 tablet (300 mg total) by mouth nightly 90 tablet 3 03/30/2019 0 triamcinolone (KENALOG) 0.1 % ointmentIndication s:Irritant contact dermatitis, unspecified trigger Apply topically 2 (two) times a day as needed for irritation or rash 80 g 09/30/2019 0 aspirin 81 mg chewable tabletIndications: prevention of thrombosis,dydlipi demia Take 1 tablet (81 mg total) by mouth daily. 30 tablet 10/20/2018 1 buPROPion XL (WELLBUTRIN XL) 150 mg 24 hr tabletIndications: Essential hypertension TAKE 1 TABLET DAILY 90 tablet 3 11/26/2019 0 cholecalciferol (VITAMIN D-3) 1,000 unit Take 1 tablet/capsule (1,000 Units total) by mouth daily. 90 tablet/capsul e 1 10/20/2018 1 lisinopriL (PRINIVIL,ZESTRIL) 5 mg tabletIndications: Essential hypertension TAKE 1 TABLET DAILY 90 tablet 3 11/26/2019 1 metoprolol XL (TOPROL-XL) 25 mg extended release tabletIndications: Essential hypertension TAKE 1 TABLET DAILY 90 tablet 3 11/26/2019 1 pramipexole (MIRAPEX) 1.5 mg tabletIndications: Restless legs syndrome Take 1 tablet (1.5 mg total) by mouth 3 (three) times a day 180 tablet 08/27/2019 0 pravastatin (PRAVACHOL) 40 mg tabletIndications: hyperlipidemia Take 1 tablet (40 mg total) by mouth daily 30 tablet 03/30/2019 0 documented as of this encounter Discharge Disposition Disposition Code Departure Means Destination Discharge to home or self care documented in this encounter Plan of Treatment Not on file documented as of this encounter Procedures Procedure Name Priority Date/Time Associated Diagnosis Comments XR FOOT RIGHT 3 OR MORE VIEWS Schedule Routine, Read Routine (OP Routine) 01/11/2020 4:09 PM CDT Right foot pain documented in this encounter Results * XR Foot Right [...] enthesophyte. Electronically signed by: Wilfredo Moreno M.D. Laura Tapia NP IMG XR PROCEDURES Final Res ult documented in this encounter Visit Diagnoses Diagnosis Right foot pain Pain in soft tissues of limb documented in this encounter Care Teams Tank Refinisher Relationship Specialty Start Date End Date Laura Tapia NP PCP - General Family Medicine 09/30/19 10/01/22 documented as of this encounter
--- OUTSIDE RECORDS SUMMARY | 2024-09-17 12:56 | XMS_ITS | Encounter Summary ---
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 Needs to do an appt, may do zoom ALS BOARD REFEREE * Telephone Encounter - Cortney Long MA - 07/26/2020 4:21 PM CST Pt's called in regards to Pt's mother past away 2 night ago and Pt and his took care of her and were real close to her . Jaden is having a real hard time dealing W/ his mom's passing. He was W/ her till the end and even stayed awhile after she took her last breath and had past because he didn't want to leave her side. Pt hasn't slept since her passing . Jaden does have an old Rx of Xanax that Rhiannon hi found in the cabinet from a provider that was here at one time ( DR Ramírez ) 12/14/2015 can Pt take this med to help him relax and sleep? ALS BOARD REFEREE documented in this encounter Plan of Treatment Not on file documented as of this encounter Visit Diagnoses Not on filedocumented in this encounter Care Teams Nut And Bolt Assembler Relationship Specialty Start Date End Date Laura Tapia NP PCP - General Family Medicine 09/30/19 10/01/22 documented as of this encounter
--- OUTSIDE RECORDS SUMMARY | 2024-09-17 12:56 | XMS_ITS | Encounter Summary ---
Author Organization [facility] Address [address] [place] [address] Care Team Providers Care Senior Publications Specialist Name Role Phone Laura Tapia NP Primary Care Provider [phone] Reason for Visit * Reason Comments Anxiety Encounter Details Date Type Department Care Team (Late st Contact Info) Description 07/27/2020 9:15 AM PLASTICS PRODUCTION MACHINE OPERATOR Office Visit [facility] [address] [place] [phone] Laura Tapia NP [address] [place] [id number] Situational anxiety (Primary Dx); Psychophysiological insomnia; Class 1 obesity due to excess calories [...] on file 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 PLASTICS PRODUCTION MACHINE OPERATOR Gender Identity Not on file Sexual Orientation Not on file documented as of this encounter Last Filed Vital Signs Vital Sign Reading Time Taken Comments Blood Pressure - - Pulse - - Temperature - - Respiratory Rate - - Oxygen Saturation - - Inhaled Oxygen Concentration - - Weight 122.5 kg (270 lb) 07/27/2020 8:58 AM PLASTICS PRODUCTION MACHINE OPERATOR Height 188 cm (6' 2 ) 07/27/2020 8:58 AM PLASTICS PRODUCTION MACHINE OPERATOR Body Mass Index 34.67 07/27/2020 8:58 AM PLASTICS PRODUCTION MACHINE OPERATOR documented in this encounter Ordered Prescriptions Prescription Sig Dispense Quantity Refills Last Filled Start Date End Date hydrOXYzine (ATARAX) 25 mg tablet Take 1 tablet (25 mg total) by mouth nightly 30 tablet 1 07/27/2020 1 ALPRAZolam (XANAX) 0.25 mg tablet Take 1 tablet (0.25 mg total) by mouth 2 (two) times a day as needed for anxiety 10 tablet 07/27/2020 1 documented in this encounter Progress Notes * Laura Tapia NP - 07/27/2020 9:15 AM CST Images from the original note were not included. Subjective/Objective This was a telemedicine visit with Jaden De La Torre and which took place via real-time video connection with [employer]. During the visit, I was located in the office and the patient was located at home in the [facility]. The patient visit started at 0903 and ended at 0923. Total encounter time was 20 minutes, which includes time spent today on pre charting, the patient encounter, and post charting. The patient has been informed that the visit may not be secure and acknowledged the information. I have explained the option of participating in a telephone or video visit during the COVID-19 public health emergency to the patient. After being given an opportunity to ask questions about and discuss this type of visit, the patient verbally consented to proceeding with the telephone/video visit.The patient understands that this service replaces an office visit and they may be billed and/or responsible for any applicable copayments. Laura Tapia NP Patient ID: Jaden De La Torre is a 49 y.o. male. Assessment/Plan Diagnoses and all orders for this visit: Situational anxiety (Primary) Assessment & Plan: HPI: Condition is new A&P: Discussed/ordered labs, [...] for short term only. Discussed the risk ofdependency, increased risk of dementia, discussed not to drive or operate machinery while using themedication as he could get a dui. I would like you to work on biofeedback. You can download an olegario on your phone. Examples would be headspace, calm, [id number], Personal Steve. Please work on this every [...] be able to help yourself more effectively. Psychophysiological insomnia Assessment & Plan: HPI: Condition [...] for short term only. Discussed the risk ofdependency, increased risk of dementia, discussed not to drive or operate machinery while using themedication as he could get a dui. I would like you to work on biofeedback. You can download an olegario on your phone. Examples would be headspace, calm, [id number], Personal Steve. Please work on this every [...] be able to help yourself more effectively. Class 1 obesity due to excess calories without serious comorbidity with body mass index (BMI) of 34.0 to 34.9 in adult Assessment & Plan: HPI: Condition is stable A&P: Healthy, low [...] in much longer they will become mushy [place] and/or coconut flour instead of regular flour [...] for recipe ideas. Type in low carb... Other orders - ALPRAZolam (XANAX) 0.25 mg tablet; Take 1 tablet (0.25 mg total) by mouth 2 (two) times a day as needed for anxiety - hydrOXYzine (ATARAX) 25 mg tablet; Take 1 tablet (25 mg total) by mouth nightly Follow up 1 Month Chief Complaint Anxiety Patient's mother has had stage IV lung cancer and leukemia. He has been the primary care provider for her. She on 07/26/2020. Patient was with her during her passing. He has had high anxiety and been unable to sleep since her passing. His found some old alprazolam that he had been given back in 2016. They asked if he could take that we set okay for last night and to see us today for a visit. He did not notice a difference. He feels like if he doesn't mention, talk or think about mom he is ok. Breaks down easily. Anxiety Presents for initial visit. Onset was in the past 7 days. The problem has been gradually worsening.Symptoms include decreased concentration, depressed mood, excessive worry, insomnia (he hasnt really slept since she . ), irritability, nervous/anxious behavior and palpitations. Patient reports no chest pain, muscle tension, panic, shortness of breath or suicidal ideas. Symptoms occur constantly. The severity of symptoms is severe. Exacerbated by: when people start asking about his mom he cries and falls apart. The quality of sleep is poor. Review of Systems Constitutional: Positive for fatigue and irritability. Respiratory: Negative for shortness of breath. Cardiovascular: Positive for palpitations. Negative for chest pain. Psychiatric/Behavioral: Positive for agitation, decreased concentration, dysphoric mood and sleep disturbance. Negative for hallucinations, self-injury and suicidal ideas. The patient is nervous/anxious and has insomnia (he hasnt really slept since she . ). Ht 188 cm (6' 2 ) Wt 122.5 kg (270 lb) BMI 34.67 kg/m?? Physical Exam Constitutional: General: He is not in acute distress. Appearance: Normal appearance. HENT: Head: Normocephalic. Right Ear: External ear normal. Left Ear: External ear normal. Nose: Nose normal. Eyes: Extraocular Movements: Extraocular movements intact. Neck: Musculoskeletal: Normal range of motion. Pulmonary: Effort: Pulmonary effort is normal. Musculoskeletal: Normal range of motion. Neurological: Mental Status: He is alert and oriented to person, place, and time. Psychiatric: Mood and Affect: Mood normal. Affect is labile and tearful. Speech: Speech normal. Behavior: Behavior normal. Thought Content: Thought content normal. Thought content does not include homicidal or suicidal ideation. Judgment: Judgment normal. Deferred as this was a televisit Laura Tapia NP Cosigned by Brandon Aguayo MD at 07/28/2020 9:00 AM PLASTICS PRODUCTION MACHINE OPERATOR TICS PRODUCTION MACHINE OPERATOR TICS PRODUCTION MACHINE OPERATOR documented in this encounter Miscellaneous Notes * Assessment & Plan Note - Laura Tapia NP - 07/27/2020 9:27 AM CSTAssociated Problem(s): Insomnia HPI: Condition is worsening A&P: [...] for short term only. Discussed the risk ofdependency, increased risk of dementia, discussed not to drive or operate machinery while using themedication as he could get a dui. I would like you to work on biofeedback. You can download an olegario on your phone. Examples would be headspace, calm, [id number], Personal Steve. Please work on this every [...] be able to help yourself more effectively. TICS PRODUCTION MACHINE OPERATOR * Assessment & Plan Note - Laura Tapia NP - 07/27/2020 9:24 AM CSTAssociated Problem(s): Class 2 obesity due to excess calories without serious comorbidity with bodymass index (BMI) of 36.0 to 36.9 in adult (Resolved 11/12/2022) HPI: Condition is stable A&P: Healthy, low [...] in much longer they will become mushy [place] and/or coconut flour instead of regular flour [...] for recipe ideas. Type in low carb... TICS PRODUCTION MACHINE OPERATOR * Assessment & Plan Note - Laura Tapia NP - 07/27/2020 9:18 AM CSTAssociated Problem(s): Situational anxiety HPI: Condition is new A&P: Discussed/ordered labs, [...] for short term only. Discussed the risk ofdependency, increased risk of dementia, discussed not to drive or operate machinery while using themedication as he could get a dui. I would like you to work on biofeedback. You can download an olegario on your phone. Examples would be headspace, calm, [id number], Personal Steve. Please work on this every [...] be able to help yourself more effectively. TICS PRODUCTION MACHINE OPERATOR TICS PRODUCTION MACHINE OPERATOR documented in this encounter Plan of Treatment Not on file documented as of this encounter Visit Diagnoses Diagnosis Situational anxiety- Primary Psychophysiological insomnia Persistent disorder of initiating or maintaining sleep Class 1 obesity due to excess calories without serious comorbidity with body mass index (BMI) of 34.0 to 34.9 in adult documented in this encounter Care Teams Senior Publications Specialist Relationship Specialty Start Date End Date Laura Tapia NP PCP - General Family Medicine 09/30/19 10/01/22 documented as of this encounter
--- OUTSIDE RECORDS SUMMARY | 2024-09-17 12:56 | XMS_ITS | Encounter Summary ---
Author Organization [facility] Care Team Providers Care Laserist Name Role Phone Laura Tapia NP Primary Care Provider [phone] Encounter Details Date Type Department Care Team (Latest Contact Info) Description 10/27/2019 Travel Social History Tobacco Use Types Packs/Day Years Used Date Smoking Tobacco: Never Smokeless Tobacco: Former Chew Quit: 08/2018 Comments:chews, not interest ed in counseling Alcohol Use Standard Drinks/Week Comments Yes 0 (1 standard drink = 0.6 oz pur e alcohol) can of beer a month PHQ-2 Answer Date Recorded PHQ-2 Score 0 04/29/2019 Sex and Gender Information Value Date Recorded Sex Assigned at Not on file 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
--- OUTSIDE RECORDS SUMMARY | 2024-09-17 12:56 | XMS_ITS | Encounter Summary ---
Author Organization [facility] Address [address] [place] [address] Care Team Providers Care Bed Machine Operator Name Role Phone Laura Tapia NP Primary Care Provider [phone] Encounter Details Date Type Department Care Team (Late st Contact Info) Description 05/18/2020 3:00 PM CDT [address] [phone] Social History Tobacco Use Types Packs/Day Years [...] on file 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 RN OSTOMY Gender Identity Not on file Sexual Orientation Not on file documented as of this encounter Plan of Treatment Not on file documented as of this encounter Visit Diagnoses Not on filedocumented in this encounter Care Teams Bed Machine Operator Relationship Specialty Start Date End Date Laura Tapia NP PCP - General Family Medicine 09/30/19 10/01/22 documented as of this encounter
--- OUTSIDE RECORDS SUMMARY | 2024-09-17 12:56 | XMS_ITS | Encounter Summary ---
Author Organization [facility] Address [address] [place] [address] Care Team Providers Care Needle Loom Setter Name Role Phone Laura Tapia NP Primary Care Provider [phone] Reason for Visit * Reason Comments burning sensation in left leg off and on 4-5 days Encounter Details Date Type Department Care Team (Late st Contact Info) Description 12/07/2019 3:30 PM CDT Telemedicine [facility] [address] [place] [phone] Jada Phillips NP [address] [place] [address] Numbness and tingling of lower extremity (Primary Dx) Social History Tobacco Use Types [...] AM CDT documented as of this encounter Last Filed Vital Signs Vital Sign Reading Time Taken Comments Blood Pressure - - Pulse - - Temperature - - Respiratory Rate - - Oxygen Saturation - - Inhaled Oxygen Concentration - - Weight 113.4 kg (250 lb) 12/07/2019 3:24 PM CDT Height 188 cm (6' 2 ) 12/07/2019 3:24 PM CDT Body Mass Index 32.1 12/07/2019 3:24 PM CDT documented in this encounter Progress Notes * Jada Phillips, CUFF FOLDER - 12/07/2019 3:30 PM CDT Images from the original note were not included. 12/07/2019 This was a telemedicine visit with Jaden De La Torre which took place via Telephone. During the visit, I was located [place], [place] in my office and the patient was located [place] . The session started at 4:00pm Assessment and ended at 4:11pm. The patient has been informed that the visit may not be secure and acknowledged the information andverbal informed consent has been obtained for visit. Chief Complaint burning sensation in left leg (off and on 4-5 days) Patient ID: Jaden De La Torre is a 49 y.o. male. Subjective/Objective HPI From his left calf to his left ankle he has had some burning on the inside. Denies any pain when hewalks on it. He doesn't see any redness or swelling in it. Just having burning periodically. Has been going on 4-5 days. Review of Systems Ht 188 cm (6' 2 ) Wt 113.4 kg (250 lb) BMI 32.10 kg/m?? Assessment/Plan Diagnoses and all orders for this visit: Numbness and tingling of lower extremity (Primary) Assessment & Plan: Patient was concerned about possible blood clot. [...] us with any new or worsening symptoms. Follow up if not improving Physical Exam Deferred as this is a telehealth visit today Jada Phillips NP documented in this encounter Miscellaneous Notes * Assessment & Plan Note - Jada Phillips NP - 12/09/2019 8:36 PM CDT Associated Problem(s): Numbness and tingling of lower extremity (Resolved 04/28/2020) Patient was concerned about possible blood clot. [...] us with any new or worsening symptoms. documented in this encounter Plan of Treatment Not on file documented as of this encounter Visit Diagnoses Diagnosis Numbness and tingling of lower extremity- Primary documented in this encounter Care Teams Needle Loom Setter Relationship Specialty Start Date End Date Laura Tapia NP PCP - General Family Medicine 09/30/19 10/01/22 documented as of this encounter
--- OUTSIDE RECORDS SUMMARY | 2024-09-17 12:56 | XMS_ITS | Encounter Summary ---
Author Organization [facility] Address [address] [place] [address] Care Team Providers Care Recycling Sorter Name Role Phone Laura Tapia NP Primary Care Provider [phone] Mariaelena Zaidi MD Unavailable La Kearney MD Primary Care Provide r Encounter Details Date Type Department Care Team (Late st Contact Info) Description 05/17/2020 Telephone 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
--- OUTSIDE RECORDS SUMMARY | 2024-09-17 12:56 | XMS_ITS | Encounter Summary ---
Author Organization [facility] Healthcare Address [address] [place] [address] Care Team Providers Care Director Underwriter Sales Name Role Phone Laura Tapia NP Primary Care Provider [phone] Encounter Details Date Type Department Care Team (Late st Contact Info) Description 05/02/2020 10:30 AM CDT [address] Ivan Holland MD [address] [place] [address] Laura Tapia NP [facility] [place] [address] Nocturia; Class 1 obesity due to excess calories without serious comorbidity with body mass index (BMI) of 34.0 to 34.9 in adult; Essential hypertension; Mixed hyperlipidemia; Myalgia Discharge Disposition: Discharge to home or self [...] on file 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 Gender Identity Not on file Sexual Orientation Not on file documented as of this encounter Discharge Disposition Disposition Code Departure Means Destination Discharge to home or self care documented in this encounter Plan of Treatment Not on file documented as of this encounter Procedures Procedure Name Priority Date/Time Associated Diagnosis Comments EGFR Routine 05/02/2020 10:27 AM CDT Essential hypertension DIFFERENTIAL AUTO Routine 05/02/2020 10: 27 AM CDT Essential hypertension URINALYSIS AND REFLEX TO MICROSCOPIC AND CULTURE Routine 05/02/2020 10:27 AM CDT Nocturia CBC WITH AUTO DIFFERENTIAL Routine 05/02/2020 10:27 AM CDT Essential hypertension VITAMIN D 25 HYDROXY Routine 05/02/2020 10:27 AM CDT Myalgia URINALYSIS, MICROSCOPIC ONLY Routine 05/02/2020 10:27 AM CDT Nocturia URINE CULTURE Routine 05/02/2020 10:27 AM CDT TSH Routine 05/02/2020 10:27 AM CDT Essential hypertension HEMOGLOBIN A1C Routine 05/02/2020 10:27 AM CDT Class 1 obesity due to excess calories without serious comorbidity with body mass index (BMI) of 34.0 to 34.9 in adult LIPID PANEL Routine 05/02/2020 10:27 AM CDT Mixed hyperlipidemia COMPREHENSIVE METABOLIC PANEL Routine 05/02/2020 10:27 AM CDT Essential hypertension documented in this encounter Results * eGFR (05/02/2020 10:27 AM CDT) [facility] eGFR 85 mL/min/1.7 3 m2 [facility]) Comment: Interpretive Data Reference Interval Normal ?>/= 90 mL/min/1.73m2 Mildly decreased* ? 60 - 89 mL/min/1.73m2 Mildly to moderately decreased ?45 - 59 mL/min/1.73m2 Moderately to severely decreased ??30 - 44 mL/min/1.73m2 Severely decreased ?15 - 29 mL/min/1.73m2 Kidney Failure ?< 15 ??mL/min/1.73m2 *Relative to young adult level If -[place]zerbaij[place] multiply value by 1.16. Estimated glomerular filtration rate is determined by [...] 70. Current interpretive data was last reviewed 2016. Blood specimen (specimen) 05/02/2020 10:27 AM CDT 05/02/2020 1:15 PM CDT Laura Tapia NP LAB BLOOD ORDERABLES Final Result [facility]) 1 [facility] Department [place] [address] * Urine culture Urine, clean voided (05/02/2020 10:27 AM CDT) Report Final Report: Less than 100,000 colonies/mL (clinically insignificant growth based on current clinical standards) [facility] ([place]) Comment:Testing performed by : [facility], 1 [facility], [place]., [address] Organism (CLINICALLY INSIGNIFICANT GROWTH [facility] ([place]) Urine, clean voided 05/02/2020 10:27 AM CDT 05/02/2020 5:22 PM CDT Narrative [facility] ([place]) - 05/03/2020 7:29 PM CDT Urine culture reflexed based upon urinalysis results. Testing performed by [facility] Microbiology Laboratory ([phone]) Laura Tapia MEAL ATTENDANT LAB MICROBIOLOGY - GENERAL ORDERABLES Final Result Performing Organization Address [facility]/ZIP Co de Phone Number [facility] ([place]) 1 [facility] Department [place] [address] * (ABNORMAL) Urinalysis, microscopic only (05/02/2020 10:27 AM CDT) WBC, ur 11-20(A) 0 - 5 /HPF [facility] ([place]) RBC, ur 3-5(A) 0 - 2 /HPF [facility] ([place]) Mucous, ur Present(A) [facility] ([place]) Hyaline casts, ur 1-5 0 - 10 /LPF [facility] ([place]) Culture Reflex Comment Reflex to urine culture will be performed. [facility] ([place]) Urine, clean voided 05/02/2020 10:27 AM CDT 05/02/2020 1:16 PM CDT Laura Tapia MEAL ATTENDANT LAB URINE ORDERABLES Final Result Performing Organization Address [facility] Co de Phone Number [facility] ([place]) 1 [facility] [place] [address] * Differential, auto (05/02/2020 10:27 AM CDT) Neutrophil abs 2.5 1.7 - 6.5 K/cumm [facility] ([place]) Imm gran abs 0.0 0.0 - 0.1 K/cumm [facility] ([place]) Lymphocyte abs 1.5 0.8 - 3.3 K/cumm [facility] ([place]) Monocyte abs 0.4 0.2 - 0.8 K/cumm [facility] ([place]) Eosinophil abs 0.2 0.0 - 0.5 K/cumm [facility] ([place]) Basophil abs 0.1 0.0 - 0.1 K/cumm [facility] ([place]) Neutrophil pct 54.4 % [facility] ([place]) Comment: Interpretive Data Percent cell count reference ranges are not reported, since discordance with absolute values may lead to misinterpretation of CBC data. Current Interpretive Data was last revised on 2017. Imm gran pct 0.6 % [facility] ([place]) Comment: Interpretive Data Percent cell count reference ranges are not reported, since discordance with absolute values may lead to misinterpretation of CBC data. Current Interpretive Data was last revised on 2017. Lymphocyte pct 31.5 % [facility] ([place]) Comment: Interpretive Data Percent cell count reference ranges are not reported, since discordance with absolute values may lead to misinterpretation of CBC data. Current Interpretive Data was last revised on 2017. Monocyte pct 8.8 % [facility] ([place]) Comment: Interpretive Data Percent cell count reference ranges are not reported, since discordance with absolute values may lead to misinterpretation of CBC data. Current Interpretive Data was last revised on 2017. Eosinophil pct 3.4 % [facility] ([place]) Comment: Interpretive Data Percent cell count reference ranges are not reported, since discordance with absolute values may lead to misinterpretation of CBC data. Current Interpretive Data was last revised on 2017. Basophil pct 1.3 % [facility] ([place]) Comment: Interpretive Data Percent cell count reference ranges are not reported, since discordance with absolute values may lead to misinterpretation of CBC data. Current Interpretive Data was last revised on 2017. Blood specimen (specimen) 05/02/2020 10:27 AM CDT 05/02/2020 1:15 PM CDT Laura Tapia MEAL ATTENDANT LAB BLOOD ORDERABLES Final Result [facility] ([place]) 1 [facility] Department of Laboratories [place], [place] [id number] * Vitamin D 25 hydroxy (05/02/2020 10:27 AM CDT) Vitamin D 25-OH 49 30 - 80 ng/mL [facility] ([place]) Blood specimen (specimen) 05/02/2020 10:27 AM CDT 05/02/2020 1:15 PM CDT Laura Tapia MEAL ATTENDANT LAB BLOOD ORDERABLES Final Result Performing Organization Address City/[facility]/ZIP Co de Phone Number [facility] ([place]) 1 [facility] [place] [address] * TSH (05/02/2020 10:27 AM CDT) Thyroid Stimulating Hormone 2.99 0.30 - 4.20 mcIUnit/mL [facility] ([place]) Blood specimen (specimen) 05/02/2020 10:27 AM CDT 05/02/2020 1:15 PM CDT [facility] BLOOD ORDERABLES Final Result Performing Organization Address [facility] de Phone Number [facility] ([place]) 1 [facility] [place] [address] * (ABNORMAL) Lipid panel (05/02/2020 10:27 AM CDT) Cholesterol 202(H) 30 - 199 mg/dL [facility] ([place]) [...] on 2018. Triglycerides 180(H) <=149 mg/dL [facility] ([place]) Comment: Interpretive Data [...] on 2018. LDL, calculated 125 <=129 mg/dL [facility] ([place]) Comment: Interpretive [...] ratio 5 [facility] ([place]) Blood specimen (specimen) 05/02/2020 10:27 AM CDT 05/02/2020 1:15 PM CDT Laura Tapia NP LAB BLOOD ORDERABLES Final Result [facility] ([place]) 1 [facility] Department [place] [address] * Comprehensive metabolic panel (05/02/2020 10:27 AM CDT) Sodium 140 135 - 145 mmol/L [facility] ([place]) Potassium, pl 4.1 3.3 - 4.9 mmol/L [facility] ([place]) Chloride 104 97 - 110 mmol/L [facility] ([place]) CO2 26 22 - 32 mmol/L [facility] ([place]) Anion gap 10 2 - 15 mmol/L [facility] ([place]) BUN 11 8 - 25 [...] AM CDT 05/02/2020 1:15 PM CDT Laura Tapia MEAL ATTENDANT LAB BLOOD ORDERABLES Final Result [facility] ([place]) 1 [facility] Department [place] [address] * CBC with auto differential (05/02/2020 10:27 AM CDT) WBC 4.6 3.8 - 9.9 K/cumm [facility] ([place]) Hgb 15.5 13.0 - 17.5 g/dL [facility] ([place]) Hct 45.4 38.9 - 50.3 % [facility] ([place]) Plt 236 150 - 400 K/cumm [facility] ([place]) MPV 10.2 9.1 - 12.3 fL [facility] ([place]) RBC 4.86 4.30 - 5.80 M/cumm [facility] ([place]) MCV 93.4 81.3 - 96.4 fL [facility] ([place]) MCH 31.9 27.1 - 33.3 pg [facility] ([place]) MCHC 34.1 32.3 - 35.7 g/dL [facility] ([place]) RDW CV 12.1 11.1 - 14.9 % [facility] ([place]) RDW SD 41.5 35.7 - 48.1 fL [facility] ([place]) NRBC abs 0.00 0.00 - 0.01 K/cumm [facility] ([place]) Blood specimen (specimen) 05/02/2020 10:27 AM CDT 05/02/2020 1:15 PM CDT Laura Tapia NP LAB BLOOD ORDERABLES Final Result Performing Organization Address [facility] de Phone Number [facility] ([place]) 1 [facility] Department [place] [address] * Hemoglobin A1c (05/02/2020 10:27 AM CDT) [facility] Signature Hgb A1C 5.2 4.0 - 5.6 % [facility] ([place]) Estimated Average Glucose 103 mg/dL [facility] ([place]) Comment: The ADA recommends reporting an estimated Average Glucose (eAG) with all Hemoglobin A1c results using the equation derived from a study of 507 normal and diabetic adults. ??Minority populations were underrepresented and children were not included. ?? (Diabetes Care 31:7241-4511, 2008). ??The eAG is not equivalent to a fasting glucose. Blood specimen (specimen) 05/02/2020 10:27 AM CDT 05/02/2020 1:15 PM CDT Laura Tapia NP LAB BLOOD ORDERABLES Final Result Performing Organization Address [facility] Co de Phone Number [facility] ([place]) 1 [facility] Department [place] [address] * (ABNORMAL) Urinalysis reflex to microscopic and [...] AM CDT 05/02/2020 1:16 PM CDT Narrative [facility] ([place]) - 05/02/2020 1:37 PM CDT ?? Urine pH is affected by diet, medications, systemic acid-base disturbances, and renal tubular function. ??pH may affect urinary stone formation. ??For example, urine pH below 6.0 may help reduce the tendency for calcium phosphate stones and pH greater than 6.0 may reduce the tendency for uric acid stone formation. Source: TeamSnap. Last revised 09-19-2017 us Laura Tapia NP LAB MICROBIOLOGY - GENERAL ORDERABLES Final Result [facility] ([place]) 1 [facility] Department [place] [address] documented in this encounter Visit Diagnoses Diagnosis Nocturia Class 1 obesity due to excess calories without serious comorbidity with body mass index (BMI) of 34.0 to 34.9 in adult Essential hypertension Unspecified essential hypertension Mixed hyperlipidemia Myalgia Unspecified myalgia and myositis documented in this encounter Care Teams Director Underwriter Sales Relationship Specialty Start Date End Date Laura Tapia NP PCP - General Family Medicine 09/30/19 10/01/22 documented as of this encounter
--- OUTSIDE RECORDS SUMMARY | 2024-09-17 12:56 | XMS_ITS | Encounter Summary ---
Author Organization [facility] Address [address] [place] [address] Care Team Providers Care Bartacker Name Role Phone Laura Hernandez NP Primary Care Provider [phone] Reason for Referral * Diagnostic Imaging (Routine) - Closed Specialty Diagnoses / Procedures Referred By Zaida camacho Referred To Contact Radiology Diagnoses Benign ganglioneuroma of abdomen Generalized abdominal pain Procedures CT Abdomen Pelvis W Contrast Laura Hernandez NP Phone: tel: fax: [address] [phone] Referral ID Status Reason Start Date Expiration Date Visits Re quested Visits Authorized [id number] Closed 04/28/2020 05/28/2021 1 1 Reason for Visit * Diagnostic Imaging (Routine) - Closed Specialty Diagnoses / Procedures Referred By Zaida camacho Referred To Contact Radiology Diagnoses Benign ganglioneuroma of abdomen Generalized abdominal pain Procedures CT Abdomen Pelvis W Contrast Laura Hernandez NP Phone: tel: fax: [address] [phone] Referral ID Status Reason Start Date Expiration Date Visits Re quested Visits Authorized [id number] Closed 04/28/2020 05/28/2021 1 1 Encounter Details Date Type Department Care Team (Late st Contact Info) Description 05/18/2020 2:51 PM CDT - 05/18/2020 11:59 PM CDT Hospital Encounter [facility] [address] [place] [address] Ivan Holland MD [address] [place] [address] Laura Hernandez NP [address] [place] [address] Benign ganglioneuroma of abdomen; Generalized abdominal pain Discharge Disposition: Discharge to home [...] file 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 90 tablet/capsule 1 10/20/2018 1 lisinopriL (PRINIVIL,ZESTRIL) 5 mg tabletIndications:Es sential [...] CONTRAST Schedule Routine, Read Routine (OP Routine) 05/18/2020 4:04 PM CDT Benign ganglioneuroma of abdomen Generalized abdominal pain CREATININE, WHOLE BLOOD STAT 05/18/2020 3:00 PM CDT documented in this encounter Results * CT [...] AM T: ??05/19/2020 9:33 AM Report ID: [id number] Reading Location: ??[id number] Narrative 05/19/2020 9:36 AM CDT [facility] ?Imaging Result Name: BROOKLYN CLEMENTJolie Linder ? Ordering Phys: LAURA HERNANDEZ Age: 49 ?Date of : 1970 ? Accession Number: [id number] Date of Service: 05/18/2020 ??Gender: M EXAM [...] Procedure Note Augustine Hargrove MD - 05/19/2020 [facility] Imaging Result Name: THOMAS CLEMENT Ordering Phys: LAURA HERNANDEZ Age: 49 Date of : 1970 Accession Number: [id number] Date of Service: 05/18/2020 Gender: M EXAM [...] Augustine Hargrove M.D. NC: CASE Report ID: [id number] Reading Location: [id number] Laura Hernandez NP IMG CT PROCEDURES Final Res ult * (ABNORMAL) Creatinine, whole blood (05/18/2020 3:00 PM CDT) Creatinine, bld 1.32(H) 0.60 - 1.30 mg/dL [facility] ([place]) Blood specimen (specimen) 05/18/2020 3:00 PM CDT 05/18/2020 3:00 PM CDT Laura Hernandez NP LAB BLOOD ORDERABLES Final Result [facility] ([place]) 1 [facility] Department [place] [address] documented in this encounter Visit Diagnoses Diagnosis Benign ganglioneuroma of abdomen Generalized abdominal pain Abdominal pain, generalized documented in this encounter Administered Medications Inactive Administered Medications - up to 3 most recent administrations Medication Order MAR Action Action Date Dose Rate Site iohexoL (OMNIPAQUE 12) 12 mg iodine/mL solution 1 Bottle 1 Bottle, oral, Once in imaging, contrast, Starting on Sat05/18/20 at 1546, For 1 dose Given 05/18/2020 3:55 PM CDT 1 Bottle ioversoL (OPTIRAY 320) injection 100 mL 100 mL, intravenous, Once in imaging, contrast, Starting on Sat05/18/20 at 1546, For 1 dose Given 05/18/2020 3:55 PM CDT 100 mL documented in this encounter Care Teams Bartacker Relationship Specialty Start Date End Date Laura Hernandez NP PCP - General Family Medicine 09/30/19 10/01/22 documented as of this encounter
--- OUTSIDE RECORDS SUMMARY | 2024-09-17 12:56 | XMS_ITS | Encounter Summary ---
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 Slade. Pt is scheduled on 08-26-2020 @ 8 with an arrival at 7 Last colonoscopy: No Family history colon cancer (if yes, relationship to pt): No Personal history colon polyps or colon cancer: No Pt on blood thinner (if yes, list medication and reason for taking): No Has pt had recent stent placement within the last year: No Pt have pacemaker/defibrillator: No Pt diabetic (if yes, insulin or oral meds): No Pt have kidney disease or on dialysis: No Pt on iron: No Hx of Constipation: no Mechanical Heart valve: No COVID-19 test verbally given to pt:yes Instructed pt to call with any medical changes and/or medications/insurance. documented in this encounter Plan of Treatment Not on file documented as of this encounter Visit Diagnoses Diagnosis Rectal pain- Primary Anal or rectal pain Encounter for screening colonoscopy documented in this encounter Orders Case Request Count Last Ordered Date First Orde red Date CASE REQUEST GI 1 05/25/2020 documented in this encounter Care Teams Paralegal Internship Relationship Specialty Start Date End Date Laura Tapia NP PCP - General Family Medicine 09/30/19 10/01/22 documented as of this encounter
--- OUTSIDE RECORDS SUMMARY | 2024-09-17 12:57 | XMS_ITS | Encounter Summary ---
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
--- OUTSIDE RECORDS SUMMARY | 2024-09-17 12:57 | XMS_ITS | Encounter Summary ---
Author Organization [facility] Address [address] [place] [address] Phone Care Team Providers Care Gauntlet Pairer Name Role Phone Marcela Euceda MORTGAGE LENDER Primary Care Provider [phone] Jada Phillips MORTGAGE LENDER Unavailable Encounter Details Date Type Department Care Team (Late st Contact Info) Description 06/16/2019 Documentation [facility] Surgery [address] [place] [phone] Ayah Mcallister RMA Social History Tobacco Use Types Packs/Day [...] on file 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 Gender Identity Not on file Sexual Orientation Not on file documented as of this encounter Progress Notes * Ayah Mcallister RMA - 06/16/2019 2:11 PM CDT Called pt and lmvom to call office to schedule appt documented in this encounter Plan of Treatment Not on file documented as of this encounter Visit Diagnoses Not on filedocumented in this encounter Care Teams Gauntlet Pairer Relationship Specialty Start Date End Date Marcela Euceda NP [address] [place] [address] PCP - General Family Medicine 11/26/18 09/29/19 Jada Phillips NP [address] [place] [address] Nurse Practitioner Family Medicine 01/19/19 09/29/19 documented as of this encounter
--- OUTSIDE RECORDS SUMMARY | 2024-09-17 12:57 | XMS_ITS | Encounter Summary ---
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
--- OUTSIDE RECORDS SUMMARY | 2024-09-17 12:57 | XMS_ITS | Encounter Summary ---
Author Organization [facility] Address [address] [place] [address] Care Team Providers Care Entry Engineer Name Role Phone Marcela Euceda DOCUMENT SPECIALIST Primary Care Provider [phone] Jada Phillips DOCUMENT SPECIALIST Unavailable Reason for Visit * Reason Comments nurse visit 1st shingrix Encounter Details Date Type Department Care Team (Latest Contact Info) Description 08/19/2019 3:15 PM MORNING BABYSITTER Clinical Support [facility] [address] [place] [phone] Need for shingles vaccine (Primary Dx) Social History Tobacco Use Types [...] on file 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 Gender Identity Not on file Sexual Orientation Not on file documented as of this encounter Plan of Treatment Not on file documented as of this encounter Visit Diagnoses Diagnosis Need for shingles vaccine- Primary Need for prophylactic vaccination and inoculation against varicella documented in this encounter Orders Immunization/Injection Count Last Ordered Date First Ordered Date ZOSTER (SHINGLES) HZV IM 1 08/19/2019 documented in this encounter Care Teams Entry Engineer Relationship Specialty Start Date End Date Mracela Euceda NP [address] [facility] [address] [place] [address] PCP - General Family Medicine 11/26/18 09/29/19 Jada Phillips NP [address] [place] [address] Nurse Practitioner Family Medicine 01/19/19 09/29/19 documented as of this encounter
--- OUTSIDE RECORDS SUMMARY | 2024-09-17 12:57 | XMS_ITS | Encounter Summary ---
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 Gender Identity Not on file Sexual Orientation Not on file documented as of this encounter Plan of Treatment Not on file documented as of this encounter Procedures Procedure Name Priority Date/Time Associated Diagnosis Comments URINE CULTURE Routine 06/15/2019 3:25 PM CDT documented in this encounter Results * Urine culture Urine, clean voided (06/15/2019 3:25 PM CDT) Report Final Report: Less than 100,000 colonies/mL (clinically insignificant growth based on current clinical standards) [facility] Comment:Testing performed by : [facility], [address] [facility] [place]., [address] Organism (CLINICALLY INSIGNIFICANT GROWTH [facility] Urine, clean voided 06/15/2019 3:25 PM CDT 06/15/2019 8:05 PM CDT Narrative [facility] ([place] - 06/17/2019 8:20 AM CDT Testing performed by [facility] Microbiology Laboratory ([phone]) us Marcela Euceda NP LAB MICROBIOLOGY - [facility] Final Result [facility] [address] [place] [address] documented in this encounter Visit Diagnoses Not on filedocumented in this encounter Care Teams Emergency Technician Relationship Specialty Start Date End Date Marcela Euceda NP [address] [place] [address] PCP - General Family Medicine 11/26/18 09/29/19 Jada Phillips NP [address] [place], [place] [address] Nurse Practitioner Family Medicine 01/19/19 09/29/19 documented as of this encounter
--- OUTSIDE RECORDS SUMMARY | 2024-09-17 12:57 | XMS_ITS | Encounter Summary ---
Author Organization [facility] Medical [facility] Address [address] [facility] [address] [place] [address] Care Team Providers Care Therapist Asst Name Role Phone Marcela Euceda NP Primary Care Provider [phone] Jada Phillips SUPERVISOR [employer] Unavailable Encounter Details Date Type Department Care Team (Late st Contact Info) Description 09/29/2019 Orders Only [facility] [address] [place] [address] Jada Phillips, ALAN [address] [facility] [address] [place] [address] Social History Tobacco Use Types Packs/Day Years [...] file 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 Gender Identity Not on file Sexual Orientation Not on file documented as of this encounter Ordered Prescriptions Prescription Sig Dispense Quantity Refills Last Filled Start Date End Date oseltamivir (TAMIFLU) 75 mg capsuleIndications :Influenza Prevention Take 1 capsule (75 mg total) by mouth daily for 10 days 10 capsule 09/29/2019 0 documented in this encounter Plan of Treatment Not on file documented as of this encounter Visit Diagnoses Not on filedocumented in this encounter Care Teams Therapist Asst Relationship Specialty Start Date End Date Marcela Euceda NP [address] [place] [address] PCP - General Family Medicine 11/26/18 09/29/19 Jada Phillips NP [address] [place] [address] Nurse Practitioner Family Medicine 01/19/19 09/29/19 documented as of this encounter
--- OUTSIDE RECORDS SUMMARY | 2024-09-17 12:57 | XMS_ITS | Encounter Summary ---
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 Gender Identity Not on file Sexual Orientation Not on file documented as of this encounter Plan of Treatment Not on file documented as of this encounter Visit Diagnoses Diagnosis Need for vaccination- Primary Need for prophylactic vaccination and inoculation against unspecified single disease documented in this encounter Orders Immunization/Injection Count Last Ordered Date First Ordered Date ZOSTER (SHINGLES) HZV IM 1 10/27/2019 documented in this encounter Care Teams Retail Store Manager Relationship Specialty Start Date End Date Laura Tapia NP PCP - General Family Medicine 09/30/19 10/01/22 documented as of this encounter
--- OUTSIDE RECORDS SUMMARY | 2024-09-17 12:57 | XMS_ITS | Encounter Summary ---
Author Organization [facility] Healthcare Address [address] [place] [address] Care Team Providers Care Cupola Man Name Role Phone Laura Tapia NP Primary Care Provider [phone] Encounter Details Date Type Department Care Team (Late st Contact Info) Description 09/30/2019 5:00 PM DOOR TO DOOR SALES REPRESENTATIVE [address] [address] Brandon Aguayo MD [address] [address] Laura Tapia NP [address] [place] [address] Essential hypertension; Mixed hyperlipidemia Discharge Disposition: Discharge to home or self [...] on file 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 DOOR TO DOOR SALES REPRESENTATIVE Gender Identity Not on file Sexual Orientation Not on file documented as of this encounter Discharge Disposition Disposition Code Departure Means Destination Discharge to home or self care documented in this encounter Plan of Treatment Not on file documented as of this encounter Procedures Procedure Name Priority Date/Time Associated Diagnosis Comments EGFR Routine 09/30/2019 4:57 PM DOOR TO DOOR SALES REPRESENTATIVE Essential hypertension Mixed hyperlipidemia DIFFERENTIAL AUTO Routine 09/30/2019 4:5 7 PM DOOR TO DOOR SALES REPRESENTATIVE Essential hypertension Mixed hyperlipidemia CBC WITH AUTO DIFFERENTIAL Routine 09/30/2019 4:57 PM DOOR TO DOOR SALES REPRESENTATIVE Essential hypertension Mixed hyperlipidemia TSH Routine 09/30/2019 4:57 PM DOOR TO DOOR SALES REPRESENTATIVE Essential hypertension Mixed hyperlipidemia LIPID PANEL Routine 09/30/2019 4:57 PM DOOR TO DOOR SALES REPRESENTATIVE Essential hypertension Mixed hyperlipidemia COMPREHENSIVE METABOLIC PANEL Routine 09/30/2019 4:57 PM DOOR TO DOOR SALES REPRESENTATIVE Essential hypertension Mixed hyperlipidemia documented in this encounter Results * eGFR (09/30/2019 4:57 PM DOOR TO DOOR SALES REPRESENTATIVE) eGFR 81 mL/min/1.7 3 m2 [facility] Comment: Interpretive Data Reference Interval Normal ?>/= 90 mL/min/1.73m2 Mildly decreased* ? 60 - 89 mL/min/1.73m2 Mildly to moderately decreased ?45 - 59 mL/min/1.73m2 Moderately to severely decreased ??30 - 44 mL/min/1.73m2 Severely decreased ?15 - 29 mL/min/1.73m2 Kidney Failure ?< 15 ??mL/min/1.73m2 *Relative to young adult level If -Senegalese multiply value by 1.16. Estimated glomerular filtration [...] was last reviewed 2016. Blood specimen (specimen) 09/30/2019 4:57 PM DOOR TO DOOR SALES REPRESENTATIVE 09/30/2019 5:20 PM DOOR TO DOOR SALES REPRESENTATIVE us Laura Regina SANDING MACHINE OPERATOR OR TENDER LAB BLOOD ORDERABLES Final Result [facility] ([place]) [address] [facility] [place] [address] * Differential, auto (09/30/2019 4:57 PM DOOR TO DOOR SALES REPRESENTATIVE) Neutrophil abs 3.9 1.7 - 6.5 K/cumm [facility]) Imm gran abs 0.0 0.0 - 0.1 K/cumm [facility]) Lymphocyte abs 1.4 0.8 - 3.3 K/cumm [facility]) Monocyte abs 0.4 0.2 - 0.8 K/cumm [facility]) Eosinophil abs 0.2 0.0 - 0.5 K/cumm [facility]) Basophil abs 0.1 0.0 - 0.1 K/cumm [facility]) Neutrophil pct 65.5 % [facility] ([place] Comment: Interpretive Data Percent cell count reference ranges are not reported, since discordance with absolute values may lead to misinterpretation of CBC data. Current Interpretive Data was last revised on 2017. Imm gran pct 0.7 % [facility] ([place] Comment: Interpretive Data Percent cell count reference ranges are not reported, since discordance with absolute values may lead to misinterpretation of CBC data. Current Interpretive Data was last revised on 2017. Lymphocyte pct 22.8 % [facility] ([place] Comment: Interpretive Data Percent cell count reference ranges are not reported, since discordance with absolute values may lead to misinterpretation of CBC data. Current Interpretive Data was last revised on 2017. Monocyte pct 7.3 % [facility] Comment: Interpretive Data Percent cell count reference ranges are not reported, since discordance with absolute values may lead to misinterpretation of CBC data. Current Interpretive Data was last revised on 2017. Eosinophil pct 2.7 % [facility] ([place] Comment: Interpretive Data Percent cell count reference ranges are not reported, since discordance with absolute values may lead to misinterpretation of CBC data. Current Interpretive Data was last revised on 2017. Basophil pct 1.0 % [facility] Comment: Interpretive Data Percent cell count reference ranges are not reported, since discordance with absolute values may lead to misinterpretation of CBC data. Current Interpretive Data was last revised on 2017. Blood specimen (specimen) 09/30/2019 4:57 PM DOOR TO DOOR SALES REPRESENTATIVE 09/30/2019 5:19 PM DOOR TO DOOR SALES REPRESENTATIVE Laura Regina SANDING MACHINE OPERATOR OR TENDER LAB BLOOD ORDERABLES Final Result Performing Organization Address City/[facility]/ZIP Co de Phone Number [facility] [address] [facility] [place] [address] * TSH (09/30/2019 4:57 PM DOOR TO DOOR SALES REPRESENTATIVE) Thyroid Stimulating Hormone 2.49 0.30 - 4.20 mcIUnit/mL [facility]) Blood specimen (specimen) 09/30/2019 4:57 PM DOOR TO DOOR SALES REPRESENTATIVE 09/30/2019 5:20 PM DOOR TO DOOR SALES REPRESENTATIVE Laura Tapia SANDING MACHINE OPERATOR OR TENDER LAB BLOOD ORDERABLES Final Result Performing Organization Address City/[facility] Co de Phone Number [facility] [address] [facility] [place] [address] * (ABNORMAL) Lipid panel (09/30/2019 4:57 PM DOOR TO DOOR SALES REPRESENTATIVE) Cholesterol 163 30 - 199 mg/dL [facility] [...] Data was last revised on 2018. Triglycerides 292(H) <=149 mg/dL [facility] ([place]) Comment: Interpretive [...] was last revised on 2018. LDL, calculated 64 <=129 mg/dL [facility] ([place]) Comment: Interpretive [...] was last revised on 2018. Non-HDL Cholesterol 122 mg/dL [facility] ([place]) Comment: Interpretive Data [...] 4 [facility] ([place]) Blood specimen (specimen) 09/30/2019 4:57 PM DOOR TO DOOR SALES REPRESENTATIVE 09/30/2019 5:20 PM DOOR TO DOOR SALES REPRESENTATIVE us Laura Tapia NP LAB BLOOD ORDERABLES Final Result [facility] [address] [facility] Department [place] [address] * (ABNORMAL) Comprehensive metabolic panel (09/30/2019 4:57 PM DOOR TO DOOR SALES REPRESENTATIVE) Sodium 137 135 - 145 mmol/L [facility]) Potassium, pl 4.1 3.3 - 4.9 mmol/L [facility]) Chloride 101 97 - 110 mmol/L [facility]) CO2 23 22 - 32 mmol/L [facility] Anion gap 13 2 - 15 mmol/L [facility]) BUN 15 8 - 25 mg/dL [facility]) Creatinine 1.06 0.80 - 1.30 mg/dL [facility]) Glucose 103 70 - 199 mg/dL [facility] [...] interpretive data was last revised 2017. Calcium 9.3 8.5 - 10.3 mg/dL [facility]) Bilirubin, total 0.5 0.1 - 1.2 mg/dL [facility]) Protein, pl 7.3 6.5 - 8.5 g/dL [facility]) Albumin 4.5 3.5 - 5.0 g/dL [facility]) Alk phos 104 40 - 130 Units/L [facility]) ALT 56(H) 7 - 55 Units/L [facility] AST 37 10 - 50 Units/L [facility] ([place]) Comment:Slightly Hemolyzed S pecimen Blood specimen (specimen) 09/30/2019 4:57 PM DOOR TO DOOR SALES REPRESENTATIVE 09/30/2019 5:20 PM DOOR TO DOOR SALES REPRESENTATIVE Laura Tapia SANDING MACHINE OPERATOR OR TENDER LAB BLOOD ORDERABLES Final Result [facility] [address] [facility] Department [place] [address] * CBC with auto differential (09/30/2019 4:57 PM DOOR TO DOOR SALES REPRESENTATIVE) WBC 5.9 3.8 - 9.9 K/cumm [facility] Hgb 14.9 13.0 - 17.5 g/dL [facility]) Hct 42.6 38.9 - 50.3 % [facility]) Plt 237 150 - 400 K/cumm [facility]) MPV 9.8 9.1 - 12.3 fL [facility] RBC 4.64 4.30 - 5.80 M/cumm [facility]) MCV 91.8 81.3 - 96.4 fL [facility]) MCH 32.1 27.1 - 33.3 pg [facility] MCHC 35.0 32.3 - 35.7 g/dL [facility]) RDW CV 12.4 11.1 - 14.9 % [facility] RDW SD 41.7 35.7 - 48.1 fL [facility] NRBC abs 0.00 0.00 - 0.01 K/cumm [facility]) Blood specimen (specimen) 09/30/2019 4:57 PM DOOR TO DOOR SALES REPRESENTATIVE 09/30/2019 5:19 PM DOOR TO DOOR SALES REPRESENTATIVE Laura Tapia SANDING MACHINE OPERATOR OR TENDER LAB BLOOD ORDERABLES Final Result [facility] [address] [facility] Department [place] [address] documented in this encounter Visit Diagnoses Diagnosis Essential hypertension Unspecified essential hypertension Mixed hyperlipidemia documented in this encounter Care Teams Cupola Man Relationship Specialty Start Date End Date Laura Tapia NP PCP - General Family Medicine 09/30/19 10/01/22 documented as of this encounter
--- OUTSIDE RECORDS SUMMARY | 2024-09-17 12:57 | XMS_ITS | Encounter Summary ---
Author Organization [facility] Address [address] [facility] [address] [place] [address] Phone Care Team Providers Care Nursing Specialist Name Role Phone Marcela Euceda DIALS INSPECTOR Primary Care Provider [phone] Jada Phillips DIALS INSPECTOR Unavailable Reason for Visit * Surgical (Routine) - Closed Specialty Diagnoses / Procedures Referred By Contact Referred To Contact General Surgery / Hepatobiliary Surgery Diagnoses Benign ganglioneuroma of abdomen Epigastric pain Marcela Euceda NP Phone: tel:[phone] fax:[phone] Payam Yancey MD Phone: tel:[phone] fax:[phone] Referral ID Status Reason Start Date Expiration Date V isits Requested Visits Authorized [id number] Closed Specialty Services Required 06/15/2019 12/24/2020 1 1 Encounter Details Date Type Department Care Team (Latest Contact Info) Description 06/25/2019 1:00 PM CDT Office Visit [facility] [address] [facility] [address] [place] [phone] Payam Yancey MD [address] MSC: [id number] [place] [address] Benign ganglioneuroma of abdomen (Primary Dx); Anxiety and depression; Generalized abdominal pain Social History Tobacco Use Types Packs/Day [...] on file 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 [employer] INTER[employer] Gender Identity Not on file Sexual Orientation Not on file documented as of this encounter Last Filed Vital Signs Vital Sign Reading Time Taken Comments Blood Pressure 129/83 06/25/2019 1:19 PM CDT Pulse 75 06/25/2019 1:19 PM CDT Temperature 36.1 ??C (97 ??F) 06/25/2019 1:19 PM CDT Respiratory Rate 18 06/25/2019 1:19 PM CDT Oxygen Saturation 97% 06/25/2019 1:19 PM CDT Inhaled Oxygen Concentration - - Weight 124.5 kg (274 lb 6.4 oz) 06/25/2019 1:19 PM CDT Height - - Body Mass Index 35.23 06/15/2019 3:03 PM CDT documented in this encounter Progress Notes * Ximena Adler PA - 06/25/2019 1:00 PM CDT NON-BILLABLE CHART REVIEW REASON FOR VISIT: Retroperitoneal ganglioneuroma; epigastric pain CHART REVIEW: Mr. De La Torre is a 48 y.o. male with a biopsy proven retroperitoneal ganglioneuroma that was found on workup for flank pain and hematuria for one month in December 2018. CT imaging from emonstrated the stable 5.3 cm ganglioneuroma and a 2 mm non-obstructing left renal stone. He presented to his PCP on 06/15 with complaints of pressure in the upper abdomen. PAST MEDICAL HISTORY: 1. Obstructive sleep apnea 2. Laryngopharyngeal reflux 3. Hypertension 4. Restless leg syndrome 5. Hyperlipidemia 6. Insomnia 7. Anxiety 8. Depression 9. Erectile dysfunction PAST SURGICAL HISTORY: 1. Shoulder surgery 2. Carpal Tunnel Release ALLERGIES: NKDA MEDICATIONS: The patient's current medications were reviewed. SOCIAL HISTORY: Smoking History: Never Alcohol History: Occasional The patient is accompanied today by --- FAMILY HISTORY: 1. Father - Throat cancer 2. Mother - Hypertension, Leukemia REVIEW OF LABORATORY AND RADIOGRAPHIC STUDIES: CT abdomen 06/09/19: Stable left periaortic-retroaortic mass/lymphadenopathy; benign ganglioneuroma by CT-guided percutaneous biopsy on 02/06/2019. 2 mm nonobstructing left renal calyceal calculus. Noother abdominal abnormality seen. Degenerative changes in thoracolumbar spine. Pathology 02/06/19: A. ?? 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 ?? Tissue, flow cytometry ? - No monoclonal B cell or immunophenotypically abnormal T-cell population identified by flow cytometry CT KUB 01/02/19: No evidence of urinary tract calculus or obstruction. Retroperitoneal lymphadenopathy. This is indeterminate but suspicious for malignancy. Appendicolith. Lumbar spine degenerative change with probable canal stenosis at L1-L2 and L3-L4. Abdominal Ultrasound 01/02/19: Mild fatty infiltration of the liver. Otherwise normal abdominal ultrasound. Providers: Patient Care Team: Marcela Euceda NP as PCP - General (Family Medicine) Jada Phillips NP as Nurse Practitioner (Family Medicine) * Payam Yancey MD - 06/25/2019 1:00 PM CDT Office note ?? REASON FOR VISIT: Retroperitoneal ganglioneuroma; epigastric pain ?? HPI: Mr. De La Torre is a 48 y.o. male with a biopsy proven retroperitoneal ganglioneuroma that was found on workup for flank pain and hematuria for one month in December 2018. CT imaging from 06/09 demonstrated the stable 5.3 cm ganglioneuroma and a 2 mm non-obstructing left renal stone, which is stable from CT scan before He presented to his PCP on 06/15 with complaints of pressure in the upper abdomen.His pain is dull and deep with worse with deep palpation. He presented to clinic for query about further management his biopsied proved ganglioneuroma shown on CT. He admits to a component of anxietyabout the lesion. His biggest concern is that this will erode into and rupture his aorta. ? PAST MEDICAL HISTORY: 1. Obstructive sleep apnea 2. Laryngopharyngeal reflux 3. Hypertension 4. Restless leg syndrome 5. Hyperlipidemia 6. Insomnia 7. Anxiety 8. Depression 9. Erectile dysfunction ?? PAST SURGICAL HISTORY: 1. Shoulder surgery 2. Carpal Tunnel Release ?? ALLERGIES: NKDA ?? MEDICATIONS: The patient's current medications were reviewed. ?? SOCIAL HISTORY: Smoking History: Never Alcohol History: Occasional The patient is unaccompanied today. ?? FAMILY HISTORY: 1. Father - Throat cancer 2. Mother - Hypertension, Leukemia ?? REVIEW OF LABORATORY AND RADIOGRAPHIC STUDIES: CT abdomen 06/09/19: Stable left periaortic-retroaortic mass/lymphadenopathy; benign ganglioneuroma by CT-guided percutaneous biopsy on 02/06/2019. 2 mm nonobstructing left renal calyceal calculus.??No other abdominal abnormality seen. Degenerative changes in thoracolumbar spine. ?? Pathology 02/06/19: A. ?? 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 ?? Tissue, flow cytometry ? - No monoclonal B cell or immunophenotypically abnormal T-cell population identified by flow cytometry ?? CT KUB 01/02/19: No evidence of urinary tract calculus or obstruction. Retroperitoneal lymphadenopathy. This is indeterminate but suspicious for malignancy. Appendicolith. Lumbar spine degenerative change with probable canal stenosis at L1-L2 and L3-L4. ?? Abdominal Ultrasound 01/02/19: Mild fatty infiltration of the liver. Otherwise normal abdominal ultrasound. ASSESSMENT/PLAN: Patient is a 48 year old male who returned for abdominal pain with deep palpable in the setting of biopsy proved ganglioneuroma. CT scan showed the tumor is stable. With no change in his mass it would be less likely that this is the reason for his pain. His pain is dull and deep with deep palpation. His symptoms are likely unrelated to his paraaortic ganglioneuroma but I admitted that I don't have a good explanation for his pain. The risk of aortic rupture and malignancy is low. We recommend patient to follow up with his primary physician or gastroenterology doctor for abdominal pain work up.Weight loss would certainly help with several of his complaints. Patient can follow up with [facility] surgery as needed. Providers: Patient Care Team: Marcela Euceda NP as PCP - General (Family Medicine) Jada Phillips NP as Nurse Practitioner (Family Medicine) documented in this encounter Plan of Treatment Scheduled Referrals Name Type Priority Associated Diagnoses Orde r Schedule Ambulatory referral to General Surgery Outpatient Referral Routine Benign ganglioneuroma of abdomen Epigastric pain Ordered: 06/15/2019 documented as of this encounter Visit Diagnoses Diagnosis Benign ganglioneuroma of abdomen- Primary Anxiety and depression Generalized abdominal pain Abdominal pain, generalized documented in this encounter Care Teams Nursing Specialist Relationship Specialty Start Date End Date Marcela Euceda NP [address] [facility] [address] [place] [address] PCP - General Family Medicine 11/26/18 09/29/19 Jada Phillips NP [address] [facility] [address] [place] [address] Nurse Practitioner Family Medicine 01/19/19 09/29/19 documented as of this encounter
--- OUTSIDE RECORDS SUMMARY | 2024-09-17 12:57 | XMS_ITS | Encounter Summary ---
Author Organization [facility] Address [address] [place] [address] Care Team Providers Care Printing Supervisor Name Role Phone Laura Tapia NP Primary Care Provider [phone] Reason for Visit * Reason Comments Hypertension Restless Legs Anxiety/Depression Encounter Details Date Type Department Care Team (Late st Contact Info) Description 09/30/2019 4:00 PM SHIRT CREASER Office Visit [facility] [address] [place] [address] Laura Tapia NP [address] [place] [id number] Essential hypertension (Primary Dx); Mixed hyperlipidemia; Laryngopharyngeal reflux (LPR); Restless legs syndrome; Screening for colon cancer; Non-intractable cyclical vomiting without nausea; Obstructive sleep apnea syndrome; Primary insomnia; Anger reaction; Class 1 obesity due to excess calories without serious comorbidity with body mass index (BMI) of 34.0 to 34.9 in adult; Immunization due; Irritant contact dermatitis, unspecified trigger Social History Tobacco Use Types Packs/Day Years [...] on file 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 SHIRT CREASER Gender Identity Not on file Sexual Orientation Not on file documented as of this encounter Last Filed Vital Signs Vital Sign Reading Time Taken Comments Blood Pressure 126/76 09/30/2019 3:56 PM SHIRT CREASER Pulse 79 09/30/2019 3:56 PM SHIRT CREASER Temperature 36.8 ??C (98.2 ??F) 09/30/2019 3:56 PM CS T Respiratory Rate 10 09/30/2019 3:56 PM SHIRT CREASER Oxygen Saturation 97% 09/30/2019 3:56 PM SHIRT CREASER Inhaled Oxygen Concentration - - Weight 123.1 kg (271 lb 4.8 oz) 09/30/2019 3:56 PM SHIRT CREASER Height 188 cm (6' 2 ) 09/30/2019 3:56 PM SHIRT CREASER Body Mass Index 34.83 09/30/2019 3:56 PM SHIRT CREASER documented in this encounter Patient Instructions * Patient Instructions* Laura Barrios NP - 09/30/2019 4:00 PM SHIRT CREASER Diagnoses and all orders for this visit: Essential hypertension (Primary) Assessment & Plan: Discussed/ordered labs, Condition is stable, encouraged healthy, low carbohydrate lifestyle and at least 150min/week of exercise, continue on lisinopril 5mg daily, metoprolol 25mg daily and aspirin 81mg Orders: - CBC with auto differential; Future - Comprehensive metabolic panel; Future - Lipid panel; Future - TSH; Future Mixed hyperlipidemia Assessment & Plan: Discussed/ordered labs, Condition is stable, encouraged healthy, low carbohydrate lifestyle and at least 150min/week of exercise, continue on pravastatin 40mg daily Orders: - CBC with auto differential; Future - Comprehensive metabolic panel; Future - Lipid panel; Future - TSH; Future Laryngopharyngeal reflux (LPR) Assessment & Plan: Discussed/ordered labs, Condition is stable, encouraged healthy, low carbohydrate lifestyle and at least 150min/week of exercise, continue on ranitidine 300mg nightly Restless legs syndrome Assessment & Plan: Discussed/ordered labs, Condition is stable, encouraged healthy, low carbohydrate lifestyle and at least 150min/week of exercise, continue on mirapex 1.5mg three times daily Make sure you are drinking a lot of water Screening for colon cancer - Stool DNA - Cologuard; Future Non-intractable cyclical vomiting without nausea Assessment & Plan: Having vomiting 1-2 times a day, none [...] hours before bed. Sleep with bed propped. Obstructive sleep apnea syndrome Assessment & Plan: Pt states using cpap for 8 hours/night 7 nights/wk Pt states less daytime somnolence, feels better when using it. Would recommend the continued use of cpap Primary insomnia Assessment & Plan: Pt states using cpap for 8 hours/night 7 nights/wk Pt states less daytime somnolence, feels better when using it. Would recommend the continued use of cpap Anger reaction Assessment & Plan: Pt's says the buproprion 150mg daily is helping he has been taking it for several months. He doesn't feel it is helping much though. He is not getting in trouble at work with anger He is able to get along with family. He struggles with crowds and people he doesn't know He does not see a counselor Watch youtube for biofeedback tips Class 1 obesity due to excess calories without serious comorbidity with body mass index (BMI) of 34.0 to 34.9 in adult Assessment & Plan: Healthy, low carbohydrate lifestyle and exercise for 150min/week recommended Immunization due Comments: tdap given today Orders: - Tdap vaccine greater than or equal to 7yo IM Irritant contact dermatitis, unspecified trigger - triamcinolone (KENALOG) 0.1 % ointment; Apply topically 2 (two) times a day as needed for irritation or rash Follow up 6 months T CREASER documented in this encounter Ordered Prescriptions Prescription Sig Dispense Quantity Refills Last Filled Start Date End Date triamcinolone (KENALOG) 0.1 % ointmentIndication s:Irritant contact dermatitis, unspecified trigger Apply topically 2 (two) times a day as needed for irritation or rash 80 g 09/30/2019 0 documented in this encounter Progress Notes * Laura Barrios NP - 09/30/2019 4:00 PM CST Images from the original note were not included. Subjective/Objective Patient ID: Jaden De La Torre Jr. is a 49 y.o. male. Chief Complaint Hypertension; Restless Legs; and Anxiety/Depression Here to discuss chronic conditions and have labs drawn Hypertension Associated symptoms include neck pain. Pertinent negatives include no chest pain or shortness of breath. Restless Legs Associated symptoms include neck pain. Pertinent negatives include no chest pain. Review of Systems Respiratory: Negative for shortness of breath. Cardiovascular: Negative for chest pain. Musculoskeletal: Positive for neck pain. Psychiatric/Behavioral: Negative for suicidal ideas. BP 126/76 (BP Location: Right arm, Patient Position: Sitting) Pulse 79 Temp 36.8 ??C (98.2 ??F)(Oral) Resp 10 Ht 188 cm (6' 2 ) Wt 123.1 kg (271 lb 4.8 oz) SpO2 97% BMI 34.83 kg/m?? No results found for this or any previous visit (from the past 1008 hour(s)). Physical Exam Constitutional: General: He is not [...] Abdomen is soft. Tenderness: There is no tenderness. Musculoskeletal: Normal range of motion. Lymphadenopathy: Cervical: No cervical adenopathy. Skin: General: Skin is warm and dry. Capillary Refill: Capillary refill takes less than 2 seconds. Neurological: Mental Status: He is alert and oriented to person, place, and time. Psychiatric: Mood and Affect: Mood normal. Assessment/Plan Diagnoses and all orders for this visit: Essential hypertension (Primary) Assessment & Plan: Discussed/ordered labs, Condition is stable, encouraged healthy, low carbohydrate lifestyle and at least 150min/week of exercise, continue on lisinopril 5mg daily, metoprolol 25mg daily and aspirin 81mg Orders: - CBC with auto differential; Future - Comprehensive metabolic panel; Future - Lipid panel; Future - TSH; Future Mixed hyperlipidemia Assessment & Plan: Discussed/ordered labs, Condition is stable, encouraged healthy, low carbohydrate lifestyle and at least 150min/week of exercise, continue on pravastatin 40mg daily Orders: - CBC with auto differential; Future - Comprehensive metabolic panel; Future - Lipid panel; Future - TSH; Future Laryngopharyngeal reflux (LPR) Assessment & Plan: Discussed/ordered labs, Condition is stable, encouraged healthy, low carbohydrate lifestyle and at least 150min/week of exercise, continue on ranitidine 300mg nightly Restless legs syndrome Assessment & Plan: Discussed/ordered labs, Condition is stable, encouraged healthy, low carbohydrate lifestyle and at least 150min/week of exercise, continue on mirapex 1.5mg three times daily Make sure you are drinking a lot of water Screening for colon cancer - Stool DNA - Cologuard; Future Non-intractable cyclical vomiting without nausea Assessment & Plan: Having vomiting 1-2 times a day, none [...] hours before bed. Sleep with bed propped. Obstructive sleep apnea syndrome Assessment & Plan: Pt states using cpap for 8 hours/night 7 nights/wk Pt states less daytime somnolence, feels better when using it. Would recommend the continued use of cpap Primary insomnia Assessment & Plan: Pt states using cpap for 8 hours/night 7 nights/wk Pt states less daytime somnolence, feels better when using it. Would recommend the continued use of cpap Anger reaction Assessment & Plan: Pt's says the buproprion 150mg daily is helping he has been taking it for several months. He doesn't feel it is helping much though. He is not getting in trouble at work with anger He is able to get along with family. He struggles with crowds and people he doesn't know He does not see a counselor Watch youtube for biofeedback tips Class 1 obesity due to excess calories without serious comorbidity with body mass index (BMI) of 34.0 to 34.9 in adult Assessment & Plan: Healthy, low carbohydrate lifestyle and exercise for 150min/week recommended Immunization due Comments: tdap given today Orders: - Tdap vaccine greater than or equal to 7yo IM Irritant contact dermatitis, unspecified trigger - triamcinolone (KENALOG) 0.1 % ointment; Apply topically 2 (two) times a day as needed for irritation or rash Follow up 6 months T CREASER documented in this encounter Miscellaneous Notes * Assessment & Plan Note - Laura Barrios NP - 09/30/2019 4:21 PM CSTAssociated Problem(s): Class 2 obesity due to excess calories without serious comorbidity with bodymass index (BMI) of 36.0 to 36.9 in adult (Resolved 11/12/2022) Healthy, low carbohydrate lifestyle and exercise for 150min/week recommended T CREASER * Assessment & Plan Note - Laura Barrios NP - 09/30/2019 4:17 PM CSTAssociated Problem(s): Anger reaction Pt's says the buproprion 150mg daily is helping he has been taking it for several months. He doesn't feel it is helping much though. He is not getting in trouble at work with anger He is able to get along with family. He struggles with crowds and people he doesn't know He does not see a counselor Watch youtube for biofeedback tips T CREASER * Assessment & Plan Note - Laura Barrios NP - 09/30/2019 4:16 PM CSTAssociated Problem(s): Insomnia Pt states using cpap for 8 hours/night 7 nights/wk Pt states less daytime somnolence, feels better when using it. Would recommend the continued use of cpap T CREASER * Assessment & Plan Note - Laura Barrios NP - 09/30/2019 4:15 PM CSTAssociated Problem(s): Obstructive sleep apnea syndrome Pt states using cpap for 8 hours/night 7 nights/wk Pt states less daytime somnolence, feels better when using it. Would recommend the continued use of cpap T CREASER * Assessment & Plan Note - Laura Barrios NP - 09/30/2019 4:12 PM CSTAssociated Problem(s): Generalized abdominal pain (Resolved 10/18/2021) He had CT scan last March which showed kidney stones T CREASER * Assessment & Plan Note - Laura Barrios NP - 09/30/2019 4:07 PM CSTAssociated Problem(s): Non-intractable cyclical vomiting without nausea (Resolved 04/28/2020) Having vomiting 1-2 times a day, none [...] hours before bed. Sleep with bed propped. T CREASER * Assessment & Plan Note - Laura Barrios NP - 09/30/2019 2:18 PM CSTAssociated Problem(s): Restless legs syndrome Discussed/ordered labs, Condition is stable, encouraged healthy, low carbohydrate lifestyle and at least 150min/week of exercise, continue on mirapex 1.5mg three times daily Make sure you are drinking a lot of water T CREASER T CREASER * Assessment & Plan Note - Laura Barrios NP - 09/30/2019 2:17 PM CSTAssociated Problem(s): Laryngopharyngeal reflux (LPR) Discussed/ordered labs, Condition is stable, encouraged healthy, low carbohydrate lifestyle and at least 150min/week of exercise, continue on ranitidine 300mg nightly T CREASER * Assessment & Plan Note - Laura Barrios NP - 09/30/2019 2:16 PM CSTAssociated Problem(s): Hyperlipidemia Discussed/ordered labs, Condition is stable, encouraged healthy, low carbohydrate lifestyle and at least 150min/week of exercise, continue on pravastatin 40mg daily T CREASER * Assessment & Plan Note - Laura Barrios NP - 09/30/2019 2:15 PM CSTAssociated Problem(s): Essential hypertension Discussed/ordered labs, Condition is stable, encouraged healthy, low carbohydrate lifestyle and at least 150min/week of exercise, continue on lisinopril 5mg daily, metoprolol 25mg daily and aspirin 81mg T CREASER documented in this encounter Plan of Treatment Scheduled Orders Name Type Priority Associated Diagnoses Orde r Schedule Stool DNA - Cologuard Lab Routine Screening for colon cancer Expected: 09/30/2019, Expires: 09/30/2020 documented as of this encounter Results * TSH (09/30/2019 4:57 PM SHIRT CREASER) Thyroid Stimulating Hormone 2.49 0.30 - 4.20 mcIUnit/mL [facility] ([facility]) Blood specimen (specimen) 09/30/2019 4:57 PM SHIRT CREASER 09/30/2019 5:20 PM SHIRT CREASER us Laura Tapia TESTING SPECIALIST LAB BLOOD ORDERABLES Final Result [facility] ([facility]) [facility] Department [place] [address] * (ABNORMAL) Lipid panel (09/30/2019 4:57 PM SHIRT CREASER) Cholesterol 163 30 - 199 mg/dL [facility] [...] on 2018. HDL 41 >=40 mg/dL [facility]) Comment: Interpretive Data [...] (SHAHEED) Blood specimen (specimen) 09/30/2019 4:57 PM SHIRT CREASER 09/30/2019 5:20 PM SHIRT CREASER Laura Tapia NP LAB BLOOD ORDERABLES Final Result [facility] ([facility]) 1 [facility] Department [place] [address] * (ABNORMAL) Comprehensive metabolic panel (09/30/2019 4:57 PM SHIRT CREASER) Sodium 137 135 - 145 mmol/L [facility] ([facility]) Potassium, pl 4.1 3.3 - 4.9 mmol/L [facility] ([facility]) Chloride 101 97 - 110 mmol/L [facility] ([facility]) CO2 23 22 - 32 mmol/L [facility] ([facility]) Anion gap 13 2 - 15 mmol/L [facility] ([facility]) BUN 15 8 - 25 mg/dL [facility] ([facility]) Creatinine 1.06 0.80 - 1.30 mg/dL [facility] ([facility]) Glucose 103 70 - 199 mg/dL [facility] ([facility]) Comment: Interpretive Data Fasting glucose [...] pecimen Blood specimen (specimen) 09/30/2019 4:57 PM SHIRT CREASER 09/30/2019 5:20 PM SHIRT CREASER us Laura Tapia NP LAB BLOOD ORDERABLES Final Result [facility] Department [place] [address] * CBC with auto differential (09/30/2019 4:57 PM SHIRT CREASER) WBC 5.9 3.8 - 9.9 K/cumm [facility] ([facility]) Hgb 14.9 13.0 - 17.5 g/dL [facility] ([facility]) Hct 42.6 38.9 - 50.3 % [facility] ([facility]) Plt 237 150 - 400 K/cumm [facility] ([facility]) MPV 9.8 9.1 - 12.3 fL [facility] ([facility]) RBC 4.64 4.30 - 5.80 M/cumm [facility] ([facility]) MCV 91.8 81.3 - 96.4 fL [facility] ([facility]) MCH 32.1 27.1 - 33.3 pg [facility] ([facility]) MCHC 35.0 32.3 - 35.7 g/dL [facility] ([facility]) RDW CV 12.4 11.1 - 14.9 % [facility] ([facility]) RDW SD 41.7 35.7 - 48.1 fL [facility] ([facility]) NRBC abs 0.00 0.00 - 0.01 K/cumm [facility] ([facility]) Blood specimen (specimen) 09/30/2019 4:57 PM SHIRT CREASER 09/30/2019 5:19 PM SHIRT CREASER Laura Tapia NP LAB BLOOD ORDERABLES Final Result [facility] ([facility]) 1 [facility] Department [place] [address] documented in this encounter Visit Diagnoses Diagnosis Essential hypertension- Primary Unspecified essential hypertension Mixed hyperlipidemia Laryngopharyngeal reflux (LPR) Restless legs syndrome Restless legs syndrome (RLS) Screening for colon cancer Special screening for malignant neoplasms, colon Non-intractable cyclical vomiting without nausea Obstructive sleep apnea syndrome Obstructive sleep apnea (adult) (pediatric) Primary insomnia Persistent disorder of initiating or maintaining sleep Anger reaction Undersocialized conduct disorder, aggressive type, unspecified Class 1 obesity due to excess calories without serious comorbidity with body mass index (BMI) of 34.0 to 34.9 in adult Immunization due Irritant contact dermatitis, unspecified trigger documented in this encounter Orders Immunization/Injection Count Last Ordered Date First Ordered Date TDAP VACCINE GREATER THAN OR EQUAL TO 7YO IM 1 09/30/2019 documented in this encounter Care Teams Printing Supervisor Relationship Specialty Start Date End Date Laura Tapia NP PCP - General Family Medicine 09/30/19 10/01/22 documented as of this encounter
--- OUTSIDE RECORDS SUMMARY | 2024-09-17 12:57 | XMS_ITS | Encounter Summary ---
Author Organization [facility] Address [address] [place] [address] Care Team Providers Care Curtain Roller Assembler Name Role Phone Marcela Euceda NP Primary Care Provider [phone] Jada Phillips NP Unavailable Reason for Referral * Surgical (Routine) - Closed Specialty Diagnoses / Procedures Referred By Contact Referred To Contact General Surgery / Hepatobiliary Surgery Diagnoses Benign ganglioneuroma of abdomen Epigastric pain Marcela Euceda NP Phone: tel:[phone] fax:[phone] Payam Yancey MD Phone: tel:[phone] fax:[phone] Referral ID Status Reason Start Date Expiration Date V isits Requested Visits Authorized [id number] Closed Specialty Services Required 06/15/2019 12/24/2020 1 1 Question Answer Please select the performing region: [facility] (All Locations) [[id number]] Comments Dr. 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 Gender Identity Not on file Sexual Orientation Not on file documented as of this encounter Last Filed Vital Signs Vital Sign Reading Time Taken Comments Blood Pressure 147/79 06/15/2019 3:03 PM CDT Pulse 66 06/15/2019 3:03 PM CDT Temperature 36.8 ??C (98.3 ??F) 06/15/2019 3:03 PM CD T Respiratory Rate 16 06/15/2019 3:03 PM CDT Oxygen Saturation 96% 06/15/2019 3:03 PM CDT Inhaled Oxygen Concentration - - Weight 123.8 kg (272 lb 14.4 oz) 06/15/2019 3:03 PM CDT Height 188 cm (6' 2 ) 06/15/2019 3:03 PM CDT Body Mass Index 35.04 06/15/2019 3:03 PM CDT documented in this encounter Progress Notes * Marcela Euceda, WALLPAPER HANGER HELPER - 06/15/2019 3:00 PM CDT Subjective/Objective Patient ID: Jaden De La Torre is a 48 y.o. male. Chief Complaint Mass (Abdomanial ) Mr. De La Torre was diagnosed with a benign ganglioneuroma of abdomin Feb 2019. The patients recent repeat abdominal CT yielded a stable ganglioneuroma. Today he states there is agreat deal of pressure in the upper abdomen and the mass is bothersome. The Ct also yielded non obstructing renal calculi - he is asymptomatic. No dysuria or flank pain Review of Systems Constitutional: Negative. HENT: Negative. Respiratory: Negative. Cardiovascular: Negative. Gastrointestinal: Positive for abdominal pain. Negative for abdominal distention, anal bleeding, blood in stool, constipation, diarrhea, nausea, rectal pain and vomiting. Genitourinary: Negative. Musculoskeletal: Positive for arthralgias. Hematological: Negative. BP 147/79 (BP Location: Left arm, Patient Position: Sitting) Pulse 66 Temp 36.8 ??C (98.3 ??F) (Oral) Resp 16 Ht 188 cm (6' 2 ) Wt 123.8 kg (272 lb 14.4 oz) SpO2 96% BMI 35.04 kg/m?? Physical Exam Constitutional: He appears well-developed and well-nourished. No distress. Cardiovascular: Normal rate, regular rhythm, normal heart sounds and intact distal pulses. Pulmonary/Chest: Effort normal and breath sounds normal. Abdominal: Soft. Bowel sounds are normal. He exhibits no distension and no mass. There is tenderness. There is no rebound and no guarding. No hernia. Difficult exam secondary to body habitus. Unable to palpate a mass Neurological: He is alert. Skin: Skin is warm and dry. He is not diaphoretic. Psychiatric: He has a normal mood and affect. His behavior is normal. Judgment and thought content normal. Nursing note and vitals reviewed. 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) - Ambulatory referral to General Surgery Epigastric pain (R10.13) - Ambulatory referral to General Surgery Renal calculi (N20.0) Comments: Noted on Abdominal CT Orders: - Urine culture Urine, clean voided; Future - POCT UA, AUTO W/O SCOPE documented in this encounter Plan of Treatment Scheduled Orders Name Type Priority Associated Diagnoses Orde r Schedule Urine culture Urine, clean voided Microbiology Routine Renal calculi Expected: 06/15/2019, Expires: 06/15/2020 Scheduled Referrals Name Type Priority Associated Diagnoses Orde r Schedule Ambulatory referral to General Surgery Outpatient Referral Routine Benign ganglioneuroma of abdomen Epigastric pain Ordered: 06/15/2019 documented as of this encounter Procedures Procedure Name Priority Date/Time Associated Diagnosis Comments POCT URINALYSIS, AUTO W/O SCOPE Routine 06/15/2019 3:36 PM CDT Renal calculi documented in this encounter Results * (ABNORMAL) POCT UA, AUTO W/O SCOPE (06/15/2019 3:36 PM CDT) Color, Urine, POC Yellow Clarity, ur, POC Clear Clear Glucose, ur, POC Negative Negative mg/dL Bilirubin, ur, POC Negative Negative, Small, Moderate, Large Ketones, ur, POC Negative Negative Specific Victor, POC 1.020 1.005 - 1.030 Blood, ur, POC Trace(A) Negative pH, ur, POC 6.0 5.0 - 8.0 Protein, ur, POC Negative Negative Urobilinogen, Urine, POC 0.2 mg/dL Leukocytes, ur, POC Trace(A) Negative Nitrite, ur, POC Negative Negative Appearance, fld Clear Clear Urine, clean voided 06/15/2019 3:36 PM CDT Marcela Euceda NP POINT OF CARE TEST ORDERABLES F inal Result documented in this encounter Visit Diagnoses Diagnosis Benign ganglioneuroma of abdomen- Primary Epigastric pain Abdominal pain, epigastric Renal calculi Calculus of kidney documented in this encounter Care Teams Curtain Roller Assembler Relationship Specialty Start Date End Date Marcela Euceda NP [address] [facility] [address] [place] [address] PCP - General Family Medicine 11/26/18 09/29/19 Jada Phillips NP [address] [place] [address] [place] [address] Nurse Practitioner Family Medicine 01/19/19 09/29/19 documented as of this encounter
--- OUTSIDE RECORDS SUMMARY | 2024-09-17 12:57 | XMS_ITS | Encounter Summary ---
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
--- OUTSIDE RECORDS SUMMARY | 2024-09-17 12:58 | XMS_ITS | Encounter Summary ---
Author Organization [facility] Medical Group Address [address] [place] [address] Care Team Providers Care Culinary Assistant Name Role Phone Marcela Euceda NP Primary Care Provider [phone] Jada Phillips NP Unavailable Encounter Details Date Type Department Care Team (Late st Contact Info) Description 04/07/2019 Telephone [facility] [address] [place] [address] Marcela Euceda, ALAN [address] [place] [address] Social History Tobacco Use Types Packs/Day Years Used Date Smoking Tobacco: Never Smokeless Tobacco: Former Chew Quit: 08/2018 Comments:chews, not interest ed in counseling Alcohol Use Standard Drinks/Week Comments Yes 0 (1 standard drink = 0.6 oz pur e alcohol) can of beer a month Sex and Gender Information Value Date Recorded Sex Assigned at Not on file 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 * Telephone Encounter - Marcela Euceda NP - 04/10/2019 9:09 AM CDT I will order but I believe an MRI is more appropriate for the spine * Telephone Encounter - Cortney Long MA - 04/07/2019 9:54 AM CDT Pt called in regards to wanting to know as long as he is getting a Ct scan of his Abd if he can getone of his spine. I informed the Pt the odds of his ins allowing him to have 2 Ct scans done in is rare but I can asked Marcela Euceda DNP if she thinks one is nessaesy for his back and if she will order it . Pt states he has a lot of back pain and would like to get it Ck out documented in this encounter Plan of Treatment Not on file documented as of this encounter Visit Diagnoses Not on filedocumented in this encounter Care Teams Culinary Assistant Relationship Specialty Start Date End Date Marcela Euceda NP [address] [place] [address] PCP - General Family Medicine 11/26/18 09/29/19 Jada Phillips NP [address] [place] [address] Nurse Practitioner Family Medicine 01/19/19 09/29/19 documented as of this encounter
--- OUTSIDE RECORDS SUMMARY | 2024-09-17 12:58 | XMS_ITS | Encounter Summary ---
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
--- OUTSIDE RECORDS SUMMARY | 2024-09-17 12:58 | XMS_ITS | Encounter Summary ---
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 Gender Identity Not on file Sexual Orientation Not on file documented as of this encounter Plan of Treatment Not on file documented as of this encounter Results * Basic metabolic panel (02/06/2019 10:52 AM CDT) Sodium 141 135 - 145 mmol/L [facility] Potassium, pl 4.5 3.3 - 4.9 mmol/L [facility] Chloride 107 97 - 110 mmol/L [facility] CO2 25 22 - 32 mmol/L [facility] Anion gap 9 2 - 15 mmol/L [facility] BUN 14 8 - 25 mg/dL [facility] Creatinine 0.99 0.80 - 1.30 mg/dL [facility] Glucose 101 70 - 199 mg/dL [facility] Comment: Interpretive Data Fasting glucose >/= 126 [...] 2017. Calcium 9.8 8.5 - 10.3 mg/dL [facility] Blood specimen (specimen) 02/06/2019 10:52 AM CDT 02/06/2019 11:06 AM CDT Narrative [facility] - 02/06/2019 11:40 AM CDT Taisha Ennis MD LAB BLOOD ORDERABLES Fin al Result [facility] Department [place] [address] * CBC with auto differential (02/06/2019 10:52 AM CDT) [facility] WBC 6.4 3.8 - 9.9 K/cumm [facility] Hgb 14.9 13.0 - 17.5 g/dL [facility] Hct 42.7 38.9 - 50.3 % [facility] Plt 217 150 - 400 K/cumm [facility] MPV 9.8 9.1 - 12.3 fL [facility] RBC 4.65 4.30 - 5.80 M/cumm [facility] MCV 91.8 81.3 - 96.4 fL [facility] MCH 32.0 27.1 - 33.3 pg [facility] MCHC 34.9 32.3 - 35.7 g/dL [facility] RDW CV 12.6 11.1 - 14.9 % [facility] RDW SD 41.7 35.7 - 48.1 fL [facility] NRBC abs 0.00 0.00 - 0.01 K/cumm [facility] Blood specimen (specimen) 02/06/2019 10:52 AM CDT 02/06/2019 11:06 AM CDT Narrative [facility] - 02/06/2019 11:14 AM CDT us Taisha Ennis MD LAB BLOOD ORDERABLES Fin al Result [facility] Department [place] [address] documented in this encounter Visit Diagnoses Diagnosis Lymphadenopathy- Primary Enlargement of lymph nodes Lymphadenopathy Enlargement of lymph nodes documented in this encounter Care Teams Hand Tacker Relationship Specialty Start Date End Date Marcela Euceda NP [address] [place] [address] [address] [place] [address] PCP - General Family Medicine 11/26/18 09/29/19 Jada Phillips NP [address] [facility] [address] [place] [address] Nurse Practitioner Family Medicine 01/19/19 09/29/19 documented as of this encounter
--- OUTSIDE RECORDS SUMMARY | 2024-09-17 12:58 | XMS_ITS | Encounter Summary ---
Author Organization [facility] Address [address] [place] [address] Phone Care Team Providers Care Test Development Engineer Name Role Phone Marcela Euceda NP Primary Care Provider [phone] Jada Phillips NP Unavailable Reason for Visit * Consultation (Routine) - Closed Specialty Diagnoses / Procedures Referred By Contact Referred To Contact Hepatobiliary Surgery Diagnoses Retroperitoneal lymphadenopathy Jada Phillips NP Phone: tel:[phone] fax:[phone] [facility] (All Locations) Referral ID Status Reason Start Date Expiration Date V isits Requested Visits Authorized [id number] Closed Specialty Services Required 01/08/2019 07/19/2020 1 Encounter Details Date Type Department Care Team (Latest Contact Info) Description 01/19/2019 1:00 PM CDT Office Visit [facility] Surgery [address] [facility] Advanced Medicine 8th [place] [address] [place] [id number] Payam Yancey MD [address] MSC: [id number] [place] [address] Lymphadenopathy (Primary Dx) Social History Tobacco Use [...] on file 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 Gender Identity Not on file Sexual Orientation Not on file documented as of this encounter Last Filed Vital Signs Vital Sign Reading Time Taken Comments Blood Pressure 123/75 01/19/2019 12:44 PM CDT Pulse 69 01/19/2019 12:44 PM CDT Temperature 37 ??C (98.6 ??F) 01/19/2019 12: 44 PM CDT Respiratory Rate - - Oxygen Saturation - - Inhaled Oxygen Concentration - - Weight 123.1 kg (271 lb 6.4 oz) 019 12:44 PM CDT Height 188 cm (6' 2 ) 01/19/2019 12:44 PM CDT Body Mass Index 34.85 01/19/2019 12:44 PM CDT documented in this encounter Progress Notes * Crista Bobo PA - 01/19/2019 1:00 PM CDT NON-BILLABLE CHART REVIEW REQUESTING PHYSICIAN: Jada Phillips NP REASON FOR VISIT: Retroperitoneal mass CHART REVIEW: Mr. De La Torre is a 48 y.o. male who was seen by [facility] cardiothoracic surgery department this morning for evaluation of a retroperitoneal mass. He underwent evaluation with an abdominal ultrasound and CT KUB for complaints of flank pain for [address] KUB 01/02 demonstrated retroperitoneal lymphadenopathy with a retroaortic and left para- aortic lymph node mass measuring 5.2 x 2.4 cm. He now presents for surgical opinion. PAST MEDICAL HISTORY: 1. Obstructive sleep apnea 2. Laryngopharyngeal reflux 3. Hypertension 4. Restless leg syndrome 5. Hyperlipidemia 6. Insomnia 7. Anxiety 8. Depression 9. Erectile dysfunction PAST SURGICAL HISTORY: 1. Shoulder surgery 2. Carpal Tunnel Release ALLERGIES: NKDA MEDICATIONS: The patient's current medications were reviewed. SOCIAL HISTORY: Smoking History: Never Alcohol History: --- The patient is accompanied today by --- FAMILY HISTORY: Father- Throat cancer Mother- Hypertension, Leukemia REVIEW OF LABORATORY AND RADIOGRAPHIC STUDIES: CT KUB 01/02/19: 1. NO EVIDENCE OF URINARY TRACT CALCULUS OR OBSTRUCTION. 2. RETROPERITONEAL LYMPHADENOPATHY. THIS IS INDETERMINATE BUT SUSPICIOUS FOR MALIGNANCY. 3. APPENDICOLITH. 4. LUMBAR SPINE DEGENERATIVE CHANGE WITH PROBABLE CANAL STENOSIS AT L1-L2 AND L3-L4 Abdominal Ultrasound 01/02/19: 1. MILD FATTY INFILTRATION OF THE LIVER. 2. OTHERWISE NORMAL ABDOMINAL ULTRASOUND Providers: Patient Care Team: Marcela Euceda NP as PCP - General (Family Medicine) Jada Phillips NP as Nurse Practitioner (Family Medicine) * Kole Brooks MD - 01/19/2019 1:00 PM CDT REQUESTING PHYSICIAN: Jada Phillips NP ?? REASON FOR VISIT: Retroperitoneal mass ?? History of present illness: Mr. De La Torre is a 48 y.o. male who was seen by [facility] cardiothoracic surgery department this morning after erroneous referral for a retroperitoneal mass. He underwent evaluation with an abdominal ultrasound and noncontrast CT KUB for complaints of abdominal pain and rightback pain for several months, also had microscopic hematuria. He states this pain is constantly present, the back pain component is worse with standing but never goes away completely. Otherwise asymptomatic, has not had any GI changes or weight loss. CT KUB 01/02 demonstrated retroperitoneal lymphadenopathy with a retroaortic and left para-aortic lymph node mass measuring 5.2 x 2.4 cm. He now presents for surgical opinion. ?PAST MEDICAL HISTORY: 1. Obstructive sleep apnea 2. Laryngopharyngeal reflux 3. Hypertension 4. Restless leg syndrome 5. Hyperlipidemia 6. Insomnia 7. Anxiety 8. Depression 9. Erectile dysfunction ?? PAST SURGICAL HISTORY: 1. Shoulder surgery 2. Carpal Tunnel Release ?? ALLERGIES: NKDA ?? MEDICATIONS: The patient's current medications were reviewed. ?? SOCIAL HISTORY: Smoking History: Never, but chewed tobacco for 30 years, quit 4 months ago. Alcohol History: Occasional EtOH The patient is accompanied today by his . 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 ?? FAMILY HISTORY: Father- Throat cancer Mother- Hypertension, Leukemia ? REVIEW OF LABORATORY AND RADIOGRAPHIC STUDIES: CT KUB 01/02/19: 1. ??NO EVIDENCE OF URINARY TRACT CALCULUS OR OBSTRUCTION. 2. ??RETROPERITONEAL LYMPHADENOPATHY. ??THIS IS INDETERMINATE BUT SUSPICIOUS FOR MALIGNANCY. 3. ??APPENDICOLITH. 4. ??LUMBAR SPINE DEGENERATIVE CHANGE WITH PROBABLE CANAL STENOSIS AT L1-L2 AND L3-L4 ?? Abdominal Ultrasound 01/02/19: 1. ??MILD FATTY INFILTRATION OF THE LIVER. 2. ??OTHERWISE NORMAL ABDOMINAL ULTRASOUND ASSESSMENT/PLAN: Abnormal retro/paraaortic retroperitoneal lymphadenopathy. We will schedule him for presentation atliver conference to discuss whether this could be biopsied either percutaneously or endoscopically, given difficult location to access. If not then could have attempted laparoscopic biopsy. We will let him know what the consensus opinion is. Providers: Patient Care Team: Marcela Euceda NP as PCP - General (Family Medicine) Jada Phillips NP as Nurse Practitioner (Family Medicine) Cosigned by Payam Yancey MD at 01/21/2019 11:23 AM CDT Associated attestation - Payam Yancey MD - 01/21/2019 11:23 AM CDT ATTENDING ATTESTATION: I, Payam Yancey M.D., the attending surgeon have seen and examined thepatient both with Dr. Brooks and independently within 24 hours of the resident's note. I agree with the history, physical exam, and findings as described in the above note. documented in this encounter Plan of Treatment Scheduled Referrals Name Type Priority Associated Diagnoses Orde r Schedule Ambulatory referral to Hepatobiliary Surgery Outpatient Referral Routine Retroperitoneal lymphadenopathy Ordered: 01/08/2019 documented as of this encounter Visit Diagnoses Diagnosis Lymphadenopathy- Primary Enlargement of lymph nodes documented in this encounter Care Teams Test Development Engineer Relationship Specialty Start Date End Date Marcela Euceda NP [address] [place] [address] PCP - General Family Medicine 11/26/18 09/29/19 Jada Phillips NP [address] [facility] [address] [place] [address] Nurse Practitioner Family Medicine 01/19/19 09/29/19 documented as of this encounter
--- OUTSIDE RECORDS SUMMARY | 2024-09-17 12:58 | XMS_ITS | Encounter Summary ---
Author Organization [facility] Address [address] [place] [address] Care Team Providers Care Director Of Acquisition Marketing Name Role Phone Marcela Euceda NP Primary Care Provider [phone] Jada Phillips NP Unavailable Reason for Referral * Diagnostic Imaging (Routine) - Closed Specialty Diagnoses / Procedures Referred By Zaida camacho Referred To Contact Radiology Diagnoses Benign ganglioneuroma of abdomen Procedures CT Abdomen WO Contrast Marcela Euceda NP Phone: tel: fax: [address] [address] Referral ID Status Reason Start Date Expiration Date Visits Re quested Visits Authorized [id number] Closed 03/30/2019 10/08/2020 1 1 Reason for Visit * Diagnostic Imaging (Routine) - Closed Specialty Diagnoses / Procedures Referred By Zaida camacho Referred To Contact Radiology Diagnoses Benign ganglioneuroma of abdomen Procedures CT Abdomen WO Contrast Marcela Euceda NP Phone: tel: fax: [address] [address] Referral ID Status Reason Start Date Expiration Date Visits Re quested Visits Authorized [id number] Closed 03/30/2019 10/08/2020 1 1 Encounter Details Date Type Department Care Team (Latest Contact Info) Description 06/09/2019 6:53 AM CDT - 06/09/2019 11:59 PM CDT Hospital Encounter [facility] [address] [place] [address] Trevin Kiarrajanel Crain, DO [address] [facility] [address] [place] [address] Marcela Euceda NP [address] [place] [address] Benign ganglioneuroma of abdomen Discharge Disposition: Discharge to home or self [...] on file 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 30 tablet 10/20/2018 1 buPROPion XL (WELLBUTRIN XL) 150 mg 24 hr tabletIndications: Anxiety with Depression Take 1 tablet (150 mg total) by mouth daily 90 tablet 1 03/30/2019 9 cholecalciferol (VITAMIN D-3) 1,000 unit Take 1 tablet/capsul e (1,000 Units total) by mouth daily. 90 tablet/capsule 1 10/20/2018 1 lisinopril (PRINIVIL,ZESTRIL) 5 mg tabletIndications: Essential hypertension Take 1 tablet (5 mg total) by mouth daily 90 tablet 1 03/30/2019 9 metoprolol XL (TOPROL-XL) 25 mg 24 hr tabletIndications: Essential hypertension Take 1 tablet (25 mg total) by mouth daily 90 tablet 1 03/30/2019 9 pramipexole (MIRAPEX) 1.5 mg tabletIndications: Restless legs syndrome Take 1 tablet (1.5 mg total) by mouth 3 (three) times a day 90 tablet 11 03/30/2019 9 pravastatin (PRAVACHOL) 40 mg tabletIndications: hyperlipidemia Take 1 tablet (40 mg total) by mouth daily 30 tablet 03/30/2019 0 documented as of this encounter Discharge Disposition Disposition Code Departure Means Destination Discharge to home or self care documented in this encounter Plan of Treatment Not on file documented as of this encounter Procedures Procedure Name Priority Date/Time Associated Diagnosis Comments CT ABDOMEN WO CONTRAST Schedule Routine, Read Routine (OP Routine) 06/09/2019 7:14 AM CDT Benign ganglioneuroma of abdomen documented in this encounter Results * CT Abdomen WO Contrast (06/09/2019 7:14 AM CDT) Anatomical Region Laterality Modality Body N/A Computed Tomogra phy 06/09/2019 7:31 AM CDT Impressions 06/09/2019 7:45 AM CDT 1. ??Stable left periaortic-retroaortic mass/lymphadenopathy; benign ganglioneuroma by CT-guided percutaneous biopsy on 02/06/2019. 2. ??2 mm nonobstructing left renal calyceal calculus. 3. ??No other abdominal abnormality seen. 4. ??Degenerative changes in thoracolumbar spine. Electronically signed by: Ramirez Heaton Jr., M.D. Narrative 06/09/2019 7:[address] ABDOMEN WO CONTRAST HISTORY: Follow-up benign retroperitoneal ganglioneuroma COMPARISON: CT abdomen and pelvis on 01/30/2019 TECHNIQUE: Noncontrast axial scans from lung bases to below iliac crests. ??Coronal and sagittal reformatted images. FINDINGS: Partially visualized lung bases are clear. Liver is normal. Gallbladder is normal. ??Bile ducts are not dilated. Pancreas, spleen and adrenal glands appear normal. 2 mm nonobstructing calyceal calculus is present at middle pole of left kidney, as before. ??Kidneys and ureters otherwise appear normal. Appendix is normal. Stool quantity is normal. ??No dilated or thickened loops of colon or small bowel are seen. ??Stomach appears normal. Abdominal aorta and inferior vena cava appear normal. Left sxaa-upntis-heviyvmuahy mass measures approximately 5.3 x 2.5 cm cross-sectional diameter. ??Several additional subcentimeter retroperitoneal lymph nodes are present, as before. ??No other lymphadenopathy is seen. ??There is no ascites. Abdominal and pelvic wall structures appear intact. Some degenerative spurring is seen in the thoracolumbar spine. Procedure Note Ramirez Heaton Jr., MD - 06/09/2019 CT ABDOMEN WO CONTRAST HISTORY: Follow-up benign retroperitoneal ganglioneuroma COMPARISON: CT abdomen and pelvis on 01/30/2019 TECHNIQUE: Noncontrast axial scans from lung bases to below iliac crests. Coronal and sagittal reformatted images. FINDINGS: Partially visualized lung bases are clear. Liver is normal. Gallbladder is normal. Bile ducts are not dilated. Pancreas, spleen and adrenal glands appear normal. 2 mm nonobstructing calyceal calculus is present at middle pole of left kidney, as before. Kidneys and ureters otherwise appear normal. Appendix is normal. Stool quantity is normal. No dilated or thickened loops of colon or small bowel are seen. Stomach appears normal. Abdominal aorta and inferior vena cava appear normal. Left ythd-jfbtdn-gfnxrcldzdo mass measures approximately 5.3 x 2.5 cm cross-sectional diameter. Several additional subcentimeter retroperitoneal lymph nodes are present, as before. No other lymphadenopathy is seen. There is no ascites. Abdominal and pelvic wall structures appear intact. Some degenerative spurring is seen in the thoracolumbar spine. IMPRESSION: 1. Stable left periaortic-retroaortic mass/lymphadenopathy; benign ganglioneuroma by CT-guided percutaneous biopsy on 02/06/2019. 2. 2 mm nonobstructing left renal calyceal calculus. 3. No other abdominal abnormality seen. 4. Degenerative changes in thoracolumbar spine. Electronically signed by: Ramirez Heaton Jr., M.D. Marcela Euceda NP IMG CT PROCEDURES Final Result documented in this encounter Visit Diagnoses Diagnosis Benign ganglioneuroma of abdomen documented in this encounter Care Teams Director Of Acquisition Marketing Relationship Specialty Start Date End Date Marcela Euceda NP [address] [facility] [address] [place] [address] PCP - General Family Medicine 11/26/18 09/29/19 Jada Phillips NP [address] [facility] [address] [place] [address] Nurse Practitioner Family Medicine 01/19/19 09/29/19 documented as of this encounter
--- OUTSIDE RECORDS SUMMARY | 2024-09-17 12:58 | XMS_ITS | Encounter Summary ---
Author Organization [facility] Medical Group Address [address] [place] [address] Care Team Providers Care Asphalt Tar And Gravel Roofer Name Role Phone Marcela Euceda NP Primary Care Provider [phone] Jada Phillips NP Unavailable Encounter Details Date Type Department Care Team (Late st Contact Info) Description 01/21/2019 Telephone [facility] of [address] [place] [address] Marcela Euceda, ALAN [address] [place] [address] Social History Tobacco Use Types Packs/Day Years Used Date Smoking Tobacco: Never Smokeless Tobacco: Former Chew Quit: 08/2018 Comments:chews, not interest ed in counseling Alcohol Use Standard Drinks/Week Comments Yes 0 (1 standard drink = 0.6 oz pur e alcohol) can of beer a month Sex and Gender Information Value Date Recorded Sex Assigned at Not on file 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 Gender Identity Not on file Sexual Orientation Not on file documented as of this encounter Ordered Prescriptions Prescription Sig Dispense Quantity Refills Last Filled Start Date End Date metoprolol XL (TOPROL-XL) 25 mg 24 hr tabletIndications: Essential hypertension Take 1 tablet (25 mg total) by mouth daily 90 tablet 1 01/21/2019 03/30/2019 lisinopril (PRINIVIL,ZESTRIL) 5 mg tabletIndications: Essential hypertension Take 1 tablet (5 mg total) by mouth daily 90 tablet 1 01/21/2019 03/30/2019 buPROPion XL (WELLBUTRIN XL) 150 mg 24 hr tabletIndications: Anxiety with Depression Take 1 tablet (150 mg total) by mouth daily 90 tablet 1 01/21/2019 03/30/2019 documented in this encounter Miscellaneous Notes * Telephone Encounter - Cortney Long MA - 01/21/2019 3:53 PM CDT Done and sent * Telephone Encounter - Marcela Euceda NP - 01/21/2019 3:23 PM CDT Please fill #90 one refill * Telephone Encounter - Cortney Long MA - 01/21/2019 2:37 PM CDT Medication Refill: Patient's Last Vist 01/16/2019 Patient's Next Visit: 03/30/2019Medication Refill: Medications: Metoprolol [facility] Call[facility] Callback #: [phone] Additional Comments: 90 days supply Medication Refill: Medications:Lisinopril [facility] Additional Comments: 90 days supply Medications: Bupropion HCL XL 150 mg Preferred [facility]acy[facility] Caller's Callback #: [phone] Additional Comments: Mail order needs 90 day supply documented in this encounter Plan of Treatment Not on file documented as of this encounter Visit Diagnoses Diagnosis Essential hypertension Unspecified essential hypertension documented in this encounter Discontinued Medications Medication Sig Discontinue Reason Start Date End Da te buPROPion XL (WELLBUTRIN XL) 150 mg 24 hr tabletIndications:Anxiety with Depression Take 1 tablet (150 mg total) by mouth daily. Reorder 10/20/2018 01/21/2019 lisinopril (PRINIVIL,ZESTRIL) 5 mg tabletIndications:Essenti al hypertension Take 1 tablet (5 mg total) by mouth daily. Reorder 10/20/2018 01/21/2019 metoprolol XL (TOPROL-XL) 25 mg 24 hr tabletIndications:Essenti al hypertension Take 1 tablet (25 mg total) by mouth daily. Reorder 10/20/2018 01/21/2019 documented as of this encounter Care Teams Asphalt [employer] Roofer Relationship Specialty Start Date End Date Marcela Euceda NP [address] [place] [address] PCP - General Family Medicine 11/26/18 09/29/19 Jada Phillips NP [address] [place] [address] Nurse Practitioner Family Medicine 01/19/19 09/29/19 documented as of this encounter
--- OUTSIDE RECORDS SUMMARY | 2024-09-17 12:58 | XMS_ITS | Encounter Summary ---
Author Organization [facility] Healthcare Address [address] [place] [address] Care Team Providers Care Garment Form Assembler Name Role Phone Marcela Euceda RHINOLOGIST Primary Care Provider [phone] Jada Phillips RHINOLOGIST Unavailable Reason for Referral * Diagnostic Imaging (Routine) - Closed Specialty Diagnoses / Procedures Referred By Zaida camacho Referred To Contact Radiology Diagnoses Retroperitoneal lymphadenopathy Procedures IR Biopsy Abdomen Retroperitoneal Payam Yancey MD Phone: tel: fax: [address] [phone] Referral ID Status Reason Start Date Expiration Date Visits Re quested Visits Authorized [id number] Closed 01/26/2019 08/06/2020 1 1 Reason for Visit * Diagnostic Imaging (Routine) - Closed Specialty Diagnoses / Procedures Referred By Zaida camacho Referred To Contact Radiology Diagnoses Retroperitoneal lymphadenopathy Procedures IR Biopsy Abdomen Retroperitoneal Payam Yancey MD Phone: tel: fax: [address] [phone] Referral ID Status Reason Start Date Expiration Date Visits Re quested Visits Authorized [id number] Closed 01/26/2019 08/06/2020 1 1 Encounter Details Date Type Department Care Team (Late st Contact Info) Description 02/06/2019 10:06 AM CDT - 02/06/2019 11:59 PM CDT Hospital Encounter 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 Gender Identity Not on file Sexual Orientation Not on file documented as of this encounter Last Filed Vital Signs Vital Sign Reading Time Taken Comments Blood Pressure 126/80 02/06/2019 1:25 PM CDT Pulse 69 02/06/2019 1:25 PM CDT Temperature - - Respiratory Rate 16 02/06/2019 1:25 PM CDT Oxygen Saturation 95% 02/06/2019 1:25 PM CDT Inhaled Oxygen Concentration - - Weight 122.5 kg (270 lb) 02/06/2019 11:38 AM CDT Height 188 cm (6' 2 ) 02/06/2019 11:38 AM CDT Body Mass Index 34.67 02/06/2019 11:38 AM CDT documented in this encounter Discharge Instructions * Discharge Instructions* Ana Laura Hooker MD - 02/06/2019 1:17 PM CDT Interventional Radiology Outpatient Discharge Instructions/Note Diagnosis:retroperitoneal lymphadenopathy Procedure:CT guided retroperitoneal lymph node biopsy Limitations: [] No lifting greater than 5 pounds with [] Right [] Left arm for 7 days. [x] You received medication that may affect your judgement. ?? Stay with a responsible person today. ?? Do not drive, operate machinery, make any legal or important decisions, or drink alcohol tomorrow. ?? No smoking unless another adult is present. Other Diet: You may resume your previous diet. Medication: [x] Usual medications; check with your regular doctor for any questions. Do not take any new pain medicine, sleeping pills or sedatives unless approved by your doctor. [] Prescriptions given for: Procedure Site Care: [] teaching sheet given [] Skin glue was used to close your incision. See teaching sheet. [] Keep site clean and dry. [] You may bathe or shower tomorrow. [] Change the dressing daily and if it becomes wet or dirty. [] Cover entire area with plastic and tape down edges before showering to keep site clean and dry. [] The suture at your dialysis access site may be removed by the dialysis staff on ___/___/___ (date). Drainage Tube Care: [] Flush tube with [] 5ml Normal Saline [] 10 ml Normal Saline [] Other: [] Flush tube [] once a day [] Other: [] Record drainage output every day. [] Your tube is capped. Uncap the tube after or if severe pain or fever develops. (Please see teaching sheet). [] Call Interventional Radiology if there is leakage around the tube or the tube stops draining. To contact an Interventional Radiologist at [facility] call [phone] Saturday through Saturday from 7:30am-4:30pm. At all other times call [phone] and ask that the Interventional Radiologist be paged. To contact an Interventional Radiologist at [facility] call [phone] Saturday through Saturday from 7:30am-3:30pm. Special instructions: Please call Interventional Radiology for any procedure related questions or problems including: ?? Extreme swelling or bruising at the site. ?? Unusual drainage or bleeding from procedure site. ?? Fever of 101.5 F for more than 24 hours. ?? Severe procedure related pain. Follow up care: [] Return to Interventional Radiology on at Please come to: [] 3rd Floor [facility] [] 4th floor [facility] [] [facility] [] [facility] Please call [phone] to schedule a follow up appointment. You need to return in documented in this encounter Medications at Time of Discharge aspirin 81 mg chewable tabletIndications: prevention of thrombosis,dydlipi demia Take 1 tablet (81 mg total) by mouth daily. 30 tablet 10/20/2018 1 buPROPion XL (WELLBUTRIN XL) 150 mg 24 hr tabletIndications: Anxiety with Depression Take 1 tablet (150 mg total) by mouth daily 90 tablet 1 01/21/2019 9 cholecalciferol (VITAMIN D-3) 1,000 unit Take 1 tablet/capsul e (1,000 Units total) by mouth daily. 90 tablet/capsule 1 10/20/2018 1 lisinopril (PRINIVIL,ZESTRIL) 5 mg tabletIndications: Essential hypertension Take 1 tablet (5 mg total) by mouth daily 90 tablet 1 01/21/2019 9 metoprolol XL (TOPROL-XL) 25 mg 24 hr tabletIndications: Essential hypertension Take 1 tablet (25 mg total) by mouth daily 90 tablet 1 01/21/2019 9 pramipexole (MIRAPEX) 1.5 mg tabletIndications: Restless legs syndrome Take 1 tablet (1.5 mg total) by mouth 3 (three) times a day. 90 tablet 11 10/20/2018 9 pravastatin (PRAVACHOL) 40 mg tabletIndications: hyperlipidemia Take 1 tablet (40 mg total) by mouth daily 30 tablet 11/26/2018 9 pravastatin (PRAVACHOL) 40 mg tablet Take 1 tablet (40 mg total) by mouth daily 90 tablet 01/05/2019 9 raNITIdine (ZANTAC) 300 mg tabletIndications: Laryngopharyngeal reflux (LPR),Abnormal gag reflex Take 1 tablet (300 mg total) by mouth nightly 90 tablet 3 01/02/2019 9 documented as of this encounter Discharge Disposition Disposition Code Departure Means Destination Discharge to home or self care documented in this encounter Progress Notes * Ye Workman RN - 02/06/2019 1:35 PM CDT Pt awake/alert, 0 acute distress noted, vital signs stable, given discharge instructions to pt and , verbalized understanding, wheeled out of dept. Via wheelchair, advised no driving for 24 hr, to drive pt home. documented in this encounter Miscellaneous Notes * Post-Procedure Note - Ana Laura Hokoer MD - 02/06/2019 1:14 PM CDT Radiology Brief Post Procedure Note Attending: Taisha Ennis MD Sanitary Engineering Teacher: Ana Laura Hooker MD Sedation/Anesthesia: Min Sedation Pre-Op/Pre-Procedure Diagnosis: Retroperitoneal lymphadenopathy Post-Op/Post-Procedure Diagnosis: same Procedure Performed: retroperitoneal lymph node biopsy Procedure Findings: Successful biopsy of left retroperitoneal lymph nodes Complications: None Estimated Blood Loss: minimal Specimens: 6 core biopsies of left retroperitoneal lymph nodes Condition: Stable Full report to follow. documented in this encounter Plan of Treatment Not on file documented as of this encounter Procedures Procedure Name Priority Date/Time Associated Diagnosis Comments BIOPSY ABDOMEN RETROPERITONEAL Schedule Routine, Read Routine (OP Routine) 02/06/2019 1:17 PM CDT Retroperitoneal lymphadenopathy FLOW LEUKEMIA/LYMPHOMA Routine 02/06/2019 12:50 PM CDT SURGICAL PATHOLOGY Routine 02/06/2019 12:50 PM CDT documented in this encounter Results * IR Biopsy Abdomen Retroperitoneal (02/06/2019 1:17 PM CDT) Anatomical Region Laterality Modality Body N/A Computed Tomogra phy 02/06/2019 3:35 PM CDT Impressions 02/06/2019 3:41 PM CDT Successful image-guided core biopsy of left retroperitoneal lymph nodes. PLAN: Follow up pathology results. Dictated by: Ana Laura Hooker M.D. The radiology attending physician has personally reviewed this study, and had reviewed and/or edited this written report and agrees with it. Electronically signed by: Taisha Ennis M.D. Narrative 02/06/2019 3:41 PM CDT EXAMINATION: IMAGE-GUIDED BIOPSY OF RETROPERITONEAL LYMPH NODES HISTORY/INDICATION: 48-year-old male with retroperitoneal lymphadenopathy ATTENDING PRESENCE: Taisha Ennis M.D., the attending radiologist, was present from the beginning to the end of the procedure. SEDATION: Procedural sedation was administered under the attending physician's direction and continuous monitoring by a trained nurse specialist who was independent from those actually performing the procedure. ??Total monitored sedation time was 30 minutes. TECHNIQUE: The risks, benefits and alternatives were discussed and informed consent was obtained. Prior to beginning the procedure, [place] Protocol was performed to confirm the patient's identity and the planned procedure. ??For procedures that utilize fluoroscopy, the fluoroscopy time has been recorded in the electronic medical record. Maximum sterile barriers including cap, mask, hand hygiene, sterile gloves, sterile gown, large sterile drape and 2% chlorhexidine for cutaneous antisepsis were used. The patient was placed in a prone position. Initial CT images were obtained for localization and saved to PACS. An appropriate biopsy site was selected and marked on the skin. The biopsy site was prepped and draped in the usual sterile fashion. The overlying skin and soft tissues were anesthetized with less than 5 mL of 1% lidocaine. Under CT guidance, a coaxial needle biopsy system was utilized. The outer needle was advanced adjacent to the left retroperitoneal lymph nodes under intermittent image guidance. After positioning the outer needle adjacent to the target, an inner core biopsy device was advanced into the target. A total 6 core biopsies were obtained from the intended target. ??3 biopsy samples were placed in formalin and 3 biopsy samples were placed in normal saline. Hemostasis was achieved with manual compression. Needle(s) utilized: Coaxial outer needle: 17 Core Biopsy Needle: 18 The skin was then cleansed and a sterile dressing was applied. ESTIMATED BLOOD LOSS: Minimal. CONDITION: Stable DISCHARGED TO: outpatient recovery FINDINGS: The initial localization images demonstrated stable retroperitoneal lymphadenopathy. Images obtained during core biopsy procedure demonstrate positioning of the biopsy needle through the target. Post biopsy images demonstrate no significant postprocedure complication such as hemorrhage. Procedure Note Taisha Ennis MD - 02/06/2019 EXAMINATION: IMAGE-GUIDED BIOPSY OF RETROPERITONEAL LYMPH NODES HISTORY/INDICATION: 48-year-old male with retroperitoneal lymphadenopathy ATTENDING PRESENCE: Taisha Ennis M.D., the attending radiologist, was present from the beginning to the end of the procedure. SEDATION: Procedural sedation was administered under the attending physician's direction and continuous monitoring by a trained nurse specialist who was independent from those actually performing the procedure. Total monitored sedation time was 30 minutes. TECHNIQUE: The risks, benefits and alternatives were discussed and informed consent was obtained. Prior to beginning the procedure, [place] Protocol was performed to confirm the patient's identity and the planned procedure. For procedures that utilize fluoroscopy, the fluoroscopy time has been recorded in the electronic medical record. Maximum sterile barriers including cap, mask, hand hygiene, sterile gloves, sterile gown, large sterile drape and 2% chlorhexidine for cutaneous antisepsis were used. The patient was placed in a prone position. Initial CT images were obtained for localization and saved to PACS. An appropriate biopsy site was selected and marked on the skin. The biopsy site was prepped and draped in the usual sterile fashion. The overlying skin and soft tissues were anesthetized with less than 5 mL of 1% lidocaine. Under CT guidance, a coaxial needle biopsy system was utilized. The outer needle was advanced adjacent to the left retroperitoneal lymph nodes under intermittent image guidance. After positioning the outer needle adjacent to the target, an inner core biopsy device was advanced into the target. A total 6 core biopsies were obtained from the intended target. 3 biopsy samples were placed in formalin and 3 biopsy samples were placed in normal saline. Hemostasis was achieved with manual compression. Needle(s) utilized: Coaxial outer needle: 17 Core Biopsy Needle: 18 The skin was then cleansed and a sterile dressing was applied. ESTIMATED BLOOD LOSS: Minimal. CONDITION: Stable DISCHARGED TO: outpatient recovery FINDINGS: The initial localization images demonstrated stable retroperitoneal lymphadenopathy. Images obtained during core biopsy procedure demonstrate positioning of the biopsy needle through the target. Post biopsy images demonstrate no significant postprocedure complication such as hemorrhage. IMPRESSION: Successful image-guided core biopsy of left retroperitoneal lymph nodes. PLAN: Follow up pathology results. Dictated by: Ana Laura Hooker M.D. The radiology attending physician has personally reviewed this study, and had reviewed and/or edited this written report and agrees with it. Electronically signed by: Taisha Ennis M.D. Payam Yancey MD IMG IR PROCEDURES Fin al Result * Surgical pathology (02/06/2019 12:50 PM CDT) 02/06/2019 12:5 0 PM CDT 02/06/2019 3:08 PM CDT Narrative 02/10/2019 2:09 PM CDT EPIC results best viewed via link to PDF [facility] [place] [address] SURGICAL PATHOLOGY REPORT FINAL Patient Name: ?? JADEN CLEMENT Gender: ??M : ??1970 (Age: 48) Address: ??[address], [place] ??[address] Hospital #: ??[id number] Taken:02/06/2019 Received:02/06/2019 Reported: 02/10/2019 Patient Type: [facility] Ancillary ?? Service: Radiology Location: [facility] Physician(s): ??Jenn Cevallos M.D. Diagnosis: A. ?? 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 ?? Tissue, flow cytometry ? - No monoclonal B cell or immunophenotypically abnormal T-cell population identified by flow cytometry (see comment) jacqui/02/10/2019 13:50 By this signature, I attest that the above diagnosis is based upon my personal examination of the slides(and/or other material indicated in the diagnosis). Emory Franks M.D. Report Electronically Reviewed and Signed Out By ??Emory Franks M.D. 02/10/2019 14:09:44 Microscopic Description and Comment: Flow cytometry shows 14% events in the lymphocyte gate of which 69% are T lymphocytes and 29% are B lymphocytes, with the B-cells showing a polytypic kappa and lambda light chain expression pattern. ??No significant CD5, CD10, or CD23 co- expression is seen on these B-cells. ??CD3+ T-lymphocytes show no aberrant loss of T-cell associated markers CD2, CD5, and CD7 and have an inverted CD4 to CD8 ratio (0.49). ??No simultaneous co-expression of CD4 and CD8 is observed. ??CD1 is negative. ??CD56+ events are not increased. ??Review of the cytospin reveals predominantly red blood cells. Flow cytometry and cytospin have been reviewed by Mando Li MD.[facility] Microscopic examination substantiates the above cited diagnosis. Bridget Mora M.D. History: The patient is a 48-year-old man with retroperitoneal lymph node mass and no prior history of cancer. ??Operative procedure: Core biopsy of retroperitoneal lymph node mass. Specimen(s) Received: A: 18g core bx of retroperitonial LN mass B: Tissue for Flow Gross Description: The specimen is received in a single formalin filled container, labeled with the patient's name. ??The container is labeled left retroperitoneal lesion and consists of five white red cores of tissue ranging from 0.3-1.5 cm in length and each measuring 0.1 cm in diameter. ??Labeled A1A2. ??Jar 0. axc/02/06/2019 16:54 Linda Serna MS, PA (ACSP) By this signature, I attest that the above diagnosis is based upon my personal examination of the slides(and/or other material). The performance characteristics of some immunohistochemical stains, fluorescence in-situ hybridization tests and immunophenotyping by flow cytometry cited in this report (if any) were determined by the Surgical Pathology Department at [facility] as part of an ongoing air quality manager program and in compliance with federally mandated [...] a high complexity laboratory under CLIA '88. ??The FDA has determined that such clearance or approval is not necessary. ??This test is used for clinical purposes. ??It should not be regarded as investigational or for research. ??Nevertheless, federal rules concerning the medical use of analyte specific reagents require that the following disclaimer be attached to the report: This test was developed and its performance characteristics determined by the Surgical Pathology Department of [facility]. ??It has not been cleared or approved by the U. S. Food and Drug Administration. IMAGES AND SCANNED DOCUMENTS, IF INCLUDED, ONLY VIEWABLE IN PDF VERSION OF REPORT us Taisha Ennis MD LAB PATHOLOGY ORDERABLES Final Result * Flow Leukemia/Lymphoma Lymph node (02/06/2019 12:50 PM CDT) Leukemia/Lymp gayle Result See separate Surgical Pathology report. [facility] Lymph node 02/06/2019 12:5 0 PM CDT 02/06/2019 5:18 PM CDT Narrative [facility] - 02/06/2019 10:56 PM CDT us Payam Yancey MD LAB PATHOLOGY ORDERAB LES Final Result [facility] Department [place] [address] documented in this encounter Visit Diagnoses Diagnosis Retroperitoneal lymphadenopathy Enlargement of lymph nodes documented in this encounter Administered Medications Inactive Administered Medications - up to 3 most recent administrations Medication Order MAR Action Action Date Dose Rate Site fentaNYL (SUBLIMAZE) preservative free injection intravenous, Code/trauma/sedation medication, Starting on Sat02/06/19 at 1230 Given 02/06/2019 12:50 PM CDT 50 mcg Given 02/06/2019 12:42 PM CDT 50 mcg Given 02/06/2019 12:30 PM CDT 50 mcg lidocaine PF (XYLOCAINE) 10 mg/mL (1 %) preservative free injection Code/trauma/sedation medication, Starting on Sat02/06/19 at 1243, Intra-Procedure (IR), Indications: Administration of Local AnesthesiaIndications:Administrat ion of Local Anesthesia Given 02/06/2019 12:43 PM CDT 20 mL Other (Comment) midazolam (VERSED) preservative free injection intravenous, Administer over 2 Minutes, Code/trauma/sedation medication, Starting on Sat02/06/19 at 1230, Intra-Procedure (IR) Given 02/06/2019 12:50 PM CDT 1 mg Given 02/06/2019 12:42 PM CDT 1 mg Given 02/06/2019 12:30 PM CDT 1 mg sodium chloride 0.9% infusion 30 mL/hr, intravenous, Continuous, Starting on Sat02/06/19 at 1245, Pre-Procedure (IR) New Bag 02/06/2019 12:02 PM CDT 30 mL/hr 30 mL/hr documented in this encounter Orders Medications Ordered That Aden ht Not Have Been Administered Count Last Ordered Date First Ordered Date sodium chloride 0.9% flush 0.5-20 mL 2 01/09 documented in this encounter Care Teams Garment Form Assembler Relationship Specialty Start Date End Date Marcela Euceda NP [address] [facility] [address] [place] [address] PCP - General Family Medicine 11/26/18 09/29/19 Jada Phillips NP [address] [place] [address] Nurse Practitioner Family Medicine 01/19/19 09/29/19 documented as of this encounter
--- OUTSIDE RECORDS SUMMARY | 2024-09-17 12:58 | XMS_ITS | Encounter Summary ---
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 * Telephone Encounter - Marcela Euceda NP - 06/12/2019 9:13 AM CDT Not sure who they spoke to, the Ct is stable * Telephone Encounter - Cortney Long MA - 06/09/2019 4:18 PM CDT Pt called in regards to someone had called his about his CT scan today and informed him his mass that he had been previously Dx BW/ has gotten smaller ? Pt is concerned about this and would liketo know who called his and what is going on. There is no documentation in the chart documented in this encounter Plan of Treatment Not on file documented as of this encounter Visit Diagnoses Not on filedocumented in this encounter Care Teams Etl Consultant Relationship Specialty Start Date End Date Marcela Euceda NP [address] [place] [address] PCP - General Family Medicine 11/26/18 09/29/19 Jada Phillips NP [address] [place] [address] Nurse Practitioner Family Medicine 01/19/19 09/29/19 documented as of this encounter
--- OUTSIDE RECORDS SUMMARY | 2024-09-17 12:58 | XMS_ITS | Encounter Summary ---
Author Organization [facility] Address [address] [place] [address] Care Team Providers Care Software Project Engineer Name Role Phone Marcela Euceda [facility] Primary Care Provider [phone] Jada Phillips [facility] Unavailable Reason for Referral * Diagnostic Imaging (Routine) - Closed Specialty Diagnoses / Procedures Referred By Zaida camacho Referred To Contact Radiology Diagnoses Retroperitoneal lymphadenopathy Procedures CT Abdomen Pelvis W Contrast CT abdomen pelvis with and without contrast Payam Yancey MD Phone: tel: fax: [address] [phone] Referral ID Status Reason Start Date Expiration Date Visits Re quested Visits Authorized [id number] Closed 01/26/2019 08/06/2020 1 1 Reason for Visit * Diagnostic Imaging (Routine) - Closed Specialty Diagnoses / Procedures Referred By Zaida camacho Referred To Contact Radiology Diagnoses Retroperitoneal lymphadenopathy Procedures CT Abdomen Pelvis W Contrast CT abdomen pelvis with and without contrast Payam Yancey MD Phone: tel: fax: [address] [phone] Referral ID Status Reason Start Date Expiration Date Visits Re quested Visits Authorized [id number] Closed 01/26/2019 08/06/2020 1 1 Encounter Details Date Type Department Care Team (Latest Contact Info) Description 01/30/2019 3:30 PM CDT - 01/30/2019 11:59 PM CDT Hospital Encounter [facility] [place] [address] Payam Yancey MD [address] MSC: [id number] [place] [address] Retroperitoneal lymphadenopathy Discharge Disposition: Discharge to home [...] on file 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 ??Retroperitoneal lymphadenopathy which effaces the fat plane with the aorta which is indeterminate, but suspicious for lymphoma. ?? Dictated by: Albert Glasgow M.D. The radiology attending physician has personally reviewed this study, and had reviewed and/or edited this written report and agrees with it. Electronically signed by: Irving Pretty M.D. Narrative 01/30/2019 4:25 PM CDT EXAMINATION: ??Computed tomography of the abdomen and pelvis with intravenous contrast HISTORY: 48-year-old male, retroperitoneal lymphadenopathy, prebiopsy TECHNIQUE: ??Transaxial computed tomographic images of the abdomen and pelvis were obtained with intravenous contrast according to the standard protocol after the uneventful administration of 100 mL Opti-Ray 350 intravenous contrast. COMPARISON: CT without contrast 12/18/2018 FINDINGS: There is a 4 mm right lower lobe, a nodule along the right major fissure likely representing an intrafissural lymph node. ??This is not seen on prior examination. ??No visualized pleural effusion or pneumothorax. ??The heart size is normal. ??No pericardial effusion. No hepatic lesions. ??There is a calcified granuloma in the left hemiliver. ??No intra or extrahepatic biliary ductal dilation. ??The gallbladder is decompressed. ??The pancreas and spleen are normal. The adrenal glands are normal. ??The kidneys are symmetrically enhancing without evidence for hydronephrosis. ??Urinary bladder is normal. The abdominal aorta is normal in course and caliber. ??There is an unchanged 1 cm periportal lymph node. ??Multiple prominent mesenteric lymph nodes are noted, none which are pathologically enlarged. ??There is a conglomerate of enlarged lymph nodes which effaces the fat plane and displaces the abdominal aorta anterior and laterally to the right. ??This measures 5.7 x 2.0 cm, previously 5.6 x 2.0 cm. ??There are other prominent aortocaval and preaortic nodes with some mild surrounding fat stranding. ??No inguinal lymphadenopathy. There is mild prostatomegaly. ??No pelvic free fluid or intraperitoneal free air. The colon is normal. ??The appendix is normal. ??The small bowel is normal in course and caliber. ??The stomach is normal. Multiple liver degenerative disc disease is noted in the lumbar spine. ??No suspicious lytic or blastic osseous lesions. Procedure Note Irving Pretty MD - 01/30/2019 EXAMINATION: Computed tomography of the abdomen and pelvis with intravenous contrast HISTORY: 48-year-old male, retroperitoneal lymphadenopathy, prebiopsy TECHNIQUE: Transaxial computed tomographic images of the abdomen and pelvis were obtained with intravenous contrast according to the standard protocol after the uneventful administration of 100 mL Opti-Ray 350 intravenous contrast. COMPARISON: CT without contrast 12/18/2018 FINDINGS: There is a 4 mm right lower lobe, a nodule along the right major fissure likely representing an intrafissural lymph node. This is not seen on prior examination. No visualized pleural effusion or pneumothorax. The heart size is normal. No pericardial effusion. No hepatic lesions. There is a calcified granuloma in the left hemiliver. No intra or extrahepatic biliary ductal dilation. The gallbladder is decompressed. The pancreas and spleen are normal. The adrenal glands are normal. The kidneys are symmetrically enhancing without evidence for hydronephrosis. Urinary bladder is normal. The abdominal aorta is normal in course and caliber. There is an unchanged 1 cm periportal lymph node. Multiple prominent mesenteric lymph nodes are noted, none which are pathologically enlarged. There is a conglomerate of enlarged lymph nodes which effaces the fat plane and displaces the abdominal aorta anterior and laterally to the right. This measures 5.7 x 2.0 cm, previously 5.6 x 2.0 cm. There are other prominent aortocaval and preaortic nodes with some mild surrounding fat stranding. No inguinal lymphadenopathy. There is mild prostatomegaly. No pelvic free fluid or intraperitoneal free air. The colon is normal. The appendix is normal. The small bowel is normal in course and caliber. The stomach is normal. Multiple liver degenerative disc disease is noted in the lumbar spine. No suspicious lytic or blastic osseous lesions. IMPRESSION: 1. Retroperitoneal lymphadenopathy which effaces the fat plane with the aorta which is indeterminate, but suspicious for lymphoma. Dictated by: Albert Glasgow M.D. The radiology attending physician has personally reviewed this study, and had reviewed and/or edited this written report and agrees with it. Electronically signed by: Irving Pretty M.D. Payam Yancey MD IMG CT PROCEDURES Fin al Result documented in this encounter Visit Diagnoses Diagnosis Retroperitoneal lymphadenopathy Enlargement of lymph nodes documented in this encounter Administered Medications Inactive Administered Medications - up to 3 most recent administrations Medication Order MAR Action Action Date Dose Rate Site ioversol (OPTIRAY 350) syringe syringe 100 mL 100 mL, intravenous, Once in imaging, contrast, Starting on Sat01/30/19 at 1606, For 1 dose Given 01/30/2019 4:06 PM CDT 100 mL documented in this encounter Care Teams Software Project Engineer Relationship Specialty Start Date End Date Marcela Euceda NP [address] [place] [address] [address] [place], [place] [address] PCP - General Family Medicine 11/26/18 09/29/19 Jada Phillips NP [address] [address] Nurse Practitioner Family Medicine 01/19/19 09/29/19 documented as of this encounter
--- OUTSIDE RECORDS SUMMARY | 2024-09-17 12:58 | XMS_ITS | Encounter Summary ---
Author Organization [facility] Address [address] [place] [address] Phone Care Team Providers Care Casing Operator Name Role Phone LupisMarcela ribeiro SEMICONDUCTOR WAFER INSPECTOR Primary Care Provider [phone] Jada Phillips SEMICONDUCTOR WAFER INSPECTOR Unavailable Encounter Details Date Type Department Care Team (Latest Contact Info) Description 01/19/2019 10:00 AM CDT Office Visit [facility] Surgery [address] [place] [id number] Lymphadenopathy (Primary Dx) Social History Tobacco Use [...] on file 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 Gender Identity Not on file Sexual Orientation Not on file documented as of this encounter Last Filed Vital Signs Vital Sign Reading Time Taken Comments Blood Pressure 122/79 01/19/2019 10:03 AM CDT Pulse 71 01/19/2019 10:03 AM CDT Temperature 37.1 ??C (98.8 ??F) 01/19/2019 10:03 AM C DT Respiratory Rate - - Oxygen Saturation 94% 01/19/2019 10:03 AM CDT Inhaled Oxygen Concentration - - Weight 121.1 kg (267 lb) 01/19/2019 10:03 AM CDT Height 188 cm (6' 2 ) 01/19/2019 10:03 AM CDT Body Mass Index 34.28 01/19/2019 10:03 AM CDT documented in this encounter Progress Notes * Ofelia Perez NP - 01/19/2019 10:00 AM CDT [facility] Cardiothoracic Surgery New Patient Consultation / Evaluation REASON FOR CONSULTATION: Lymphadenopathy REFERRING PROVIDER: Marcela Euceda HISTORY OF PRESENT ILLNESS: The patient is a 48 y.o. male presenting today at the request of AngelaJ. Ok NP for evaluation of retroperitoneal lymphadenopathy/mass. He recently experienced sudden onset of right flank pain followed by hematuria. He was evaluated in a local urgent care was prescribed an antibiotic. However, his symptoms never resolved. He denies injury or strain to possibly provoke his symptoms. He eventually sought evaluation with his primary care physician who obtained a renal CT as well as an ultrasound. Renal CT imaging mentions retroperitoneal lymphadenopathy with retro aortic and left para-aortic lymphadenopathy measuring 5.2 x 2.4 cm. He is here today for further evaluation and discussion. Unfortunately, he should have been referred to GI/hepatobiliary. MEDICAL CONDITIONS: Patient Active Problem List Diagnosis ??? Restless legs syndrome ??? Obstructive sleep apnea syndrome ??? Insomnia ??? Hyperlipidemia ??? Essential hypertension ??? Palpitation ??? Encounter to establish care ??? Screening for prostate cancer ??? Non-intractable cyclical vomiting without nausea ??? Screening for colon cancer ??? Abnormal gag reflex ??? Laryngopharyngeal reflux (LPR) ??? Lymphadenopathy PAST MEDICAL HISTORY: He has a past medical history of Anxiety disorder, Depression, Erectile dysfunction, OTHER MEDICAL,OTHER MEDICAL, Hypertension, and Sleep apnea. PAST SURGICAL HISTORY: He has a past surgical history that includes Other surgical history; Shoulder surgery; and Carpal tunnel release. MEDICATIONS: He has a current medication list which includes the following prescription(s): aspirin, bupropion xl, cholecalciferol, lisinopril, metoprolol xl, pramipexole, pravastatin, pravastatin, and ranitidine. ALLERGIES: He has No Known Allergies. FAMILY HISTORY: His family history includes Cancer in his father; Hypertension in his mother; Leukemia in his mother; Throat cancer in his father. SOCIAL HISTORY: He reports that he has never smoked. He quit smokeless tobacco use about 5 months ago. His smokeless tobacco use included chew. He reports that he drinks alcohol. He reports that he does not use drugs. REVIEW OF SYSTEMS: A comprehensive review of systems was completed by the patient; and reviewed, signed, and scanned into the chart. PHYSICAL EXAMINATION: Ht: 188 cm (6' 2 ) Wt: 121.1 kg (267 lb) BMI: Body mass index is 34.28 kg/m??. BP 122/79 Pulse 71 Temp 37.1 ??C (98.8 ??F) (Temporal) Ht 188 cm (6' 2 ) Wt 121.1 kg (267 lb) SpO2 94% BMI 34.28 kg/m?? Physical examination was not performed today. RESULTS: 1.) Renal CT performed at [facility] dated 01/02/2019- FINDINGS: There is no evidence of renal or ureteral calculus or urinary tract dilatation. The urinary bladder appears normal. Moderate prostatic hypertrophy is present. The unenhanced solid parenchymal organs are unremarkable. The small and large bowel are nondilated. An appendicolith is present within the distal tip of an otherwise normal appearing appendix. There is no evidence of ascites. Retroperitoneal lymphadenopathy is present with the retroaortic and left para-aortic lymph node mass measuring 5.2 x 2.4 cm. This is indeterminate. No additional masses are identified. The pelvic contents are normal. Degenerative change of the spine is present with posterior endplate spurring suggesting canal stenosis at L1-L2 and L3-L4. IMPRESSION: 1. NO EVIDENCE OF URINARY TRACT CALCULUS OR OBSTRUCTION. 2. RETROPERITONEAL LYMPHADENOPATHY DISCUSSED ABOVE. THIS IS INDETERMINATE BUT SUSPICIOUS FOR MALIGNANCY. 3. APPENDICOLITH. 4. LUMBAR SPINE DEGENERATIVE CHANGE WITH PROBABLE CANAL STENOSIS AT L1-L2 AND L3-L4. 2.) Abdominal sonography performed at [facility] dated 01/02/2019- COMPARISON: None available. FINDINGS: The liver is mildly echogenic, consistent with fatty infiltration. No focal lesions are present. The gallbladder is normal. The extrahepatic bile duct measures 4.8 mm. The visualized portions of the body and head of the pancreas are normal. The spleen, aorta and inferior vena cava are normal. There is no evidence of ascites. The right and left kidneys measure 11.4 and 11.8 cm in long axis, respectively. There is normal cortical echogenicity with no evidence of mass or hydronephrosis. IMPRESSION: 1. MILD FATTY INFILTRATION OF THE LIVER. 2. OTHERWISE NORMAL ABDOMINAL ULTRASOUND. ASSESSMENT AND PLAN: Please see Dr. Alonzo's initial consultation letter for additional details. The patient is a 48 y.o. male with a retroperitoneal mass of unknown certainty. We were fortunate enough to be able to have him seen by Dr. Payam Yancey today. We have made no specific plans to see him back. We will not charge him today for his visit as he was incorrectly scheduled with us. Ofelia Perez NP Nurse practitioner for Dr. Eloy Alonzo Telegraphic Typewriter Repairer completed using [employer] Direct speaking software, therefore, laundromat manager variances may occur. * Eloy Valdivia MD - 01/19/2019 10:00 AM CDT [facility] Thoracic Surgery History and Physical 01/19/2019 ALAN Fuentes 1970 Dear Marcela Euceda NP: Thank you for asking me to see Jaden Verdinace in consultation. As you know, he is a 48 y.o. male patient with retroperitoneal lymphadenopathy found on a CT scan. The patient was referred erroneously to thoracic surgery clinic. I talked to Dr. Payam Yancey who will see him in his clinic today. Patient understood and was agreeable to the plan. If you have any further questions or concerns, please do not hesitate to contact our office. Thank you very much. Yours sincerely, Eloy Alonzo MD. documented in this encounter Plan of Treatment Not on file documented as of this encounter Visit Diagnoses Diagnosis Lymphadenopathy- Primary Enlargement of lymph nodes documented in this encounter Discontinued Medications Medication Sig Discontinue Reason Start Date End Da te methocarbamol (ROBAXIN) 500 mg tablet Therapy completed 12/17/19 19 01/19/2019 documented as of this encounter Care Teams Casing Operator Relationship Specialty Start Date End Date Marcela Euceda NP [address] [place] [address] [address] [place] [address] PCP - General Family Medicine 11/26/18 09/29/19 Jada Phillips NP [address] [place] [address] Nurse Practitioner Family Medicine 01/19/19 09/29/19 documented as of this encounter
--- OUTSIDE RECORDS SUMMARY | 2024-09-17 12:58 | XMS_ITS | Encounter Summary ---
Author Organization [facility] Address [address] [place] [address] Care Team Providers Care Systems Consultant Name Role Phone Marcela Euceda NP Primary Care Provider [phone] Jada Phillips NP Unavailable Reason for Referral * Diagnostic Imaging (Routine) - Closed Specialty Diagnoses / Procedures Referred By Zaida camacho Referred To Contact Radiology Diagnoses Benign ganglioneuroma of abdomen Procedures CT Abdomen WO Contrast Marcela Euceda NP Phone: tel: fax: [facility] [address] [place] [address] Referral ID Status Reason Start Date Expiration Date Visits Re quested Visits Authorized [id number] Closed 03/30/2019 10/08/2020 1 1 Reason for Visit * Reason Comments Anxiety/Depression Hyperlipidemia Hypertension Encounter Details Date Type Department Care Team (Latest Contact Info) Description 03/30/2019 9:00 AM CDT Office Visit [facility] [address] [facility] [address] [place] [id number] Marcela Euceda NP [address] [facility] [address] [place] [address] Essential hypertension (Primary Dx); Mixed hyperlipidemia; Palpitation; Benign ganglioneuroma of abdomen; Anxiety and depression; Abnormal abdominal CT scan; Atopic dermatitis, unspecified type; Restless legs syndrome; Hyperlipidemia, unspecified hyperlipidemia type; Laryngopharyngeal reflux (LPR); Abnormal gag reflex; Spondylosis of lumbar region without myelopathy or [...] on file 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 Gender Identity Not on file Sexual Orientation Not on file documented as of this encounter Last Filed Vital Signs Vital Sign Reading Time Taken Comments Blood Pressure 117/79 03/30/2019 8:43 AM CDT Pulse 76 03/30/2019 8:43 AM CDT Temperature 37 ??C (98.6 ??F) 03/30/2019 8:43 AM CDT Respiratory Rate 12 03/30/2019 8:43 AM CDT Oxygen Saturation 94% 03/30/2019 8:43 AM CDT Inhaled Oxygen Concentration - - Weight 121.4 kg (267 lb 11.2 oz) 03/30/2019 8:43 AM CDT Height 188 cm (6' 2 ) 03/30/2019 8:43 AM CDT Body Mass Index 34.37 03/30/2019 8:43 AM CDT documented in this encounter Patient Instructions * Patient Instructions* Marcela Euceda, OFFENDER EMPLOYMENT SPECIALIST - 03/30/2019 9:00 AM CDT Magnesium 500 mg every night Patient Education Nystatin/Triamcinolone (On the skin) Nystatin (lashaun-STAT-in), Triamcinolone (ksxs-mz-ZTR-oh-lone) Treats fungal infections of the skin, especially yeast infections. Brand Name(s): There may be other brand names for this medicine. When This Medicine Should Not Be Used: You should not use this medicine if you have ever had an allergic reaction to nystatin, triamcinolone, or any cortisone drugs. How to Use This Medicine: Cream, Ointment ?? Your doctor will tell you how much medicine to use and how often. ?? Put the medicine on the affected area and rub in gently. Keep it out of your eyes. ?? Do not put a bandage on the area unless your doctor has told you to. ?? Avoid tight-fitting diapers and plastic pants if using on your child's diaper area. ?? Wear loose-fitting clothes when using this medicine on the groin area (crotch). ?? It is important to use this medicine for as long as your doctor tells you to. If your infection does not begin to clear up after 2 to 3 weeks, or if it gets worse, call your doctor. If a dose is missed: ?? Use your medicine as soon as you remember that you have missed your dose. ?? If it is nearly time for your next dose, wait until then to use the medicine and skip the misseddose. ?? You should not use two doses at one time. ?? Try not to miss any doses of this medicine. How to Store and Dispose of This Medicine: ?? Keep your medicine at room temperature, away from heat and direct light. Do not freeze. ?? Ask your pharmacist, doctor, or health caregiver about the best way to dispose of any outdated medicine or medicine no longer needed. ?? Keep all medicine away from children. Drugs and Foods to Avoid: Ask your doctor or pharmacist before using any other medicine, including mjfa-wvl-euhbfsx medicines, vitamins, and herbal products. ?? Make sure your doctor knows if you are using any other medicines or lotions on your skin. ?? If you are diabetic, ask your doctor before changing your diet or dosage of antidiabetic medicine. Warnings While Using This Medicine: ?? If you are or , talk to your doctor before using this medicine. ?? If you become while using this medicine, be sure to tell your doctor. ?? You should not use more often or for a longer time than your doctor ordered. ?? Tell your doctor if you have any other medical problems, especially diabetes, herpes, tuberculosis of the skin, vaccina (cowpox), varicella (chickenpox), or other skin infections. ?? Call your doctor if you have skin irritation that was not there before you started using this medicine. Possible Side Effects While Using This Medicine: If you notice these less serious side effects, talk with your doctor: ?? Blistering, burning, itching, or peeling skin ?? Break-out of acne (pimples) ?? Reddish purple lines on skin ?? Easy bruising If you notice other side effects that you think are caused by this medicine, tell your doctor. Call your doctor for medical advice about side effects. You may report side effects to FDA at 0-285-AFC-7299 ?? 2017 [employer] Information is for End User's use only and may not be sold, redistributed or otherwise used for commercial purposes. The above information is an certified nurses' aide only. It is not intended as medical advice for individual conditions or treatments. Talk to your doctor, nurse or pharmacist before following any medical regimen to see if it is safe and effective for you. documented in this encounter Ordered Prescriptions Prescription Sig Dispense Quantity Refills Last Filled Start Date End Date raNITIdine (ZANTAC) 300 mg tabletIndications: Laryngopharyngeal reflux (LPR),Abnormal gag reflex Take 1 tablet (300 mg total) by mouth nightly 90 tablet 3 03/30/2019 0 pravastatin (PRAVACHOL) 40 mg tabletIndications: hyperlipidemia Take 1 tablet (40 mg total) by mouth daily 30 tablet 03/30/2019 0 pramipexole (MIRAPEX) 1.5 mg tabletIndications: Restless legs syndrome Take 1 tablet (1.5 mg total) by mouth 3 (three) times a day 90 tablet 11 03/30/2019 9 metoprolol XL (TOPROL-XL) 25 mg 24 hr tabletIndications: Essential hypertension Take 1 tablet (25 mg total) by mouth daily 90 tablet 1 03/30/2019 9 lisinopril (PRINIVIL,ZESTRIL) 5 mg tabletIndications: Essential hypertension Take 1 tablet (5 mg total) by mouth daily 90 tablet 1 03/30/2019 9 buPROPion XL (WELLBUTRIN XL) 150 mg 24 hr tabletIndications: Anxiety with Depression Take 1 tablet (150 mg total) by mouth daily 90 tablet 1 03/30/2019 9 nystatin-triamcino lone creamIndications:c utaneous candidiasis Apply to affect area twice a day for 7-14 days then as needed for rash. 60 g 1 03/30/2019 9 documented in this encounter Progress Notes * Marcela Euceda, OFFENDER EMPLOYMENT SPECIALIST - 03/30/2019 9:00 AM CDT Subjective/Objective Patient ID: Jaden De La Torre is a 48 y.o. male. Chief Complaint Anxiety/Depression; Hyperlipidemia; and Hypertension Mr. De La Torre presents today for a follow up visit. Due to an abnormal abdomina CT with possible lymphoma he was referred to [facility] For evaluation. Thebiopsy yielded a benign ganglioneuroma. The patient is concerned due to persistent mild, intermittent, periumbilical pain. Review of Systems Constitutional: Negative. Respiratory: Negative. Cardiovascular: Negative. Gastrointestinal: Positive for abdominal pain. Genitourinary: Negative. Musculoskeletal: Positive for arthralgias. Psychiatric/Behavioral: Negative. 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 Restless legs syndrome (G25.81) - pramipexole (MIRAPEX) 1.5 mg tablet; Take 1 tablet (1.5 mg total) by mouth 3 (three) times a day Hyperlipidemia, unspecified hyperlipidemia type (E78.5) - pravastatin (PRAVACHOL) 40 mg tablet; Take 1 tablet (40 mg total) by mouth daily Laryngopharyngeal reflux (LPR) (K21.9) - raNITIdine (ZANTAC) 300 mg tablet; Take 1 tablet (300 mg total) by mouth nightly Abnormal gag reflex (R29.2) - raNITIdine (ZANTAC) 300 mg tablet; Take 1 tablet (300 mg total) by mouth nightly Spondylosis of lumbar region without myelopathy or radiculopathy (M47.816) Repeat abdominal CT early June, Follow up late July documented in this encounter Plan of Treatment Not on file documented as of this encounter Results * CT Abdomen WO [...] and inferior vena cava appear normal. Left ehff-rgykfm-ynpqropnqec mass measures approximately 5.3 x 2.5 cm [...] and inferior vena cava appear normal. 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 documented in this encounter Discontinued Medications Medication Sig Discontinue Reason Start Date End Da te pravastatin (PRAVACHOL) 40 mg tablet TAKE 1 TABLET DAILY Duplicate order 03/20/2019 03/30/2019 buPROPion XL (WELLBUTRIN XL) 150 mg 24 hr tabletIndications:Anxiety with Depression Take 1 tablet (150 mg total) by mouth daily Reorder 01/21/2019 03/30/2019 lisinopril (PRINIVIL,ZESTRIL) 5 mg tabletIndications:Essenti al hypertension Take 1 tablet (5 mg total) by mouth daily Reorder 01/21/2019 03/30/2019 metoprolol XL (TOPROL-XL) 25 mg 24 hr tabletIndications:Essenti al hypertension Take 1 tablet (25 mg total) by mouth daily Reorder 01/21/2019 03/30/2019 pramipexole (MIRAPEX) 1.5 mg tabletIndications:Restles s legs syndrome Take 1 tablet (1.5 mg total) by mouth 3 (three) times a day. Reorder 10/20/2018 03/30/2019 pravastatin (PRAVACHOL) 40 mg tabletIndications:hyperli pidemia Take 1 tablet (40 mg total) by mouth daily Reorder 11/26/2018 03/30/2019 raNITIdine (ZANTAC) 300 mg tabletIndications:Laryngo pharyngeal reflux (LPR),Abnormal gag reflex Take 1 tablet (300 mg total) by mouth nightly Reorder 01/02/2019 03/30/2019 documented as of this encounter Care Teams Systems Consultant Relationship Specialty Start Date End Date Marcela Euceda NP [address] [place] [address] PCP - General Family Medicine 11/26/18 09/29/19 Jada Phillips NP [address] [place] [address] Nurse Practitioner Family Medicine 01/19/19 09/29/19 documented as of this encounter
--- OUTSIDE RECORDS SUMMARY | 2024-09-17 12:58 | XMS_ITS | Encounter Summary ---
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0 0.0 - 0.1 K/cumm [facility] Lymphocyte abs 1.2 0.8 - 3.3 K/cumm [facility] Monocyte abs 0.4 0.2 - 0.8 K/cumm [facility] Eosinophil abs 0.2 0.0 - 0.5 K/cumm [facility] Basophil abs 0.1 0.0 - 0.1 K/cumm [facility] Neutrophil pct 70.0 % [facility] Comment: Interpretive Data Percent cell count reference ranges are not reported, since discordance with absolute values may lead to misinterpretation of CBC data. Current Interpretive Data was last revised on 2017. Imm gran pct 0.8 % [facility] Comment: Interpretive Data Percent cell count reference ranges are not reported, since discordance with absolute values may lead to misinterpretation of CBC data. Current Interpretive Data was last revised on 2017. Lymphocyte pct 19.0 % [facility] Comment: Interpretive Data Percent cell count reference ranges are not reported, since discordance with absolute values may lead to misinterpretation of CBC data. Current Interpretive Data was last revised on 2017. Monocyte pct 6.0 % [facility] Comment: Interpretive Data Percent cell count reference ranges are not reported, since discordance with absolute values may lead to misinterpretation of CBC data. Current Interpretive Data was last revised on 2017. Eosinophil pct 3.3 % [facility] Comment: Interpretive Data Percent cell count reference ranges are not reported, since discordance with absolute values may lead to misinterpretation of CBC data. Current Interpretive Data was last revised on 2017. Basophil pct 0.9 % [facility] Comment: Interpretive Data Percent cell count reference ranges are not reported, since discordance with absolute values may lead to misinterpretation of CBC data. Current Interpretive Data was last revised on 2017. Blood specimen (specimen) 02/06/2019 10:52 AM CDT 02/06/2019 11:06 AM CDT Narrative [facility] - 02/06/2019 11:14 AM CDT Taisha Ennis MD LAB BLOOD ORDERABLES Fin al Result [facility] Department [place] [address] * CBC with auto differential (02/06/2019 10:52 AM CDT) WBC 6.4 3.8 - 9.9 K/cumm [facility] Hgb 14.9 13.0 - 17.5 g/dL [facility] Hct 42.7 38.9 - 50.3 % [facility] Plt 217 150 - 400 K/cumm [facility] MPV 9.8 9.1 - 12.3 fL [facility] RBC 4.65 4.30 - 5.80 M/cumm [facility] MCV 91.8 81.3 - 96.4 fL [facility] MCH 32.0 27.1 - 33.3 pg [facility] MCHC 34.9 32.3 - 35.7 g/dL [facility] RDW CV 12.6 11.1 - 14.9 % [facility] RDW SD 41.7 35.7 - 48.1 fL [facility] NRBC abs 0.00 0.00 - 0.01 K/cumm [facility] Blood specimen (specimen) 02/06/2019 10:52 AM CDT 02/06/2019 11:06 AM CDT Narrative [facility] - 02/06/2019 11:14 AM CDT Taisha Ennis MD LAB BLOOD ORDERABLES Fin al Result [facility] Department [place] [address] * Basic metabolic panel (02/06/2019 10:52 AM CDT) Sodium 141 135 - 145 mmol/L [facility] Potassium, pl 4.5 3.3 - 4.9 mmol/L [facility] Chloride 107 97 - 110 mmol/L [facility] CO2 25 22 - 32 mmol/L [facility] Anion gap 9 2 - 15 mmol/L [facility] BUN 14 8 - 25 mg/dL [facility] Creatinine 0.99 0.80 - 1.30 mg/dL [facility] Glucose 101 70 - 199 mg/dL [facility] Comment: Interpretive Data Fasting glucose >/= 126 [...] 2017. Calcium 9.8 8.5 - 10.3 mg/dL [facility] Blood specimen (specimen) 02/06/2019 10:52 AM CDT 02/06/2019 11:06 AM CDT Narrative [facility] - 02/06/2019 11:40 AM CDT Taisha Ennis MD LAB BLOOD ORDERABLES Fin al Result Performing Organization Address City/State/[facility] Co de Phone Number [facility] Department [place] [address] documented in this encounter Visit Diagnoses Diagnosis Lymphadenopathy Enlargement of lymph nodes documented in this encounter Care Teams Slitter Operator Relationship Specialty Start Date End Date Marcela Euceda NP [address] [place] [address] PCP - General Family Medicine 11/26/18 09/29/19 Jada Phillips NP [address] [place] [address] Nurse Practitioner Family Medicine 01/19/19 09/29/19 documented as of this encounter
--- OUTSIDE RECORDS SUMMARY | 2024-09-17 12:58 | XMS_ITS | Encounter Summary ---
Author Organization [facility] Healthcare Address [address] [place] [address] Care Team Providers Care Turning Sander Operator Name Role Phone OkMarcela HEDDLE MACHINE OPERATOR Primary Care Provider [phone] Jada Phillips HEDDLE MACHINE OPERATOR Unavailable Reason for Visit * Reason Onset Date Comments checking on IR appointment 01/27/2019 Encounter Details Date Type Department Care Team (Late st Contact Info) Description 01/27/2019 Telephone [facility] [address] [place] [address] Mireille Bland, RN checking on IR appointment Social History Tobacco Use Types Packs/Day Years Used Date Smoking Tobacco: Never Smokeless Tobacco: Former Chew Quit: 08/2018 Comments:chews, not interest ed in counseling Alcohol Use Standard Drinks/Week Comments Yes 0 (1 standard drink = 0.6 oz pur e alcohol) can of beer a month Sex and Gender Information Value Date Recorded Sex Assigned at Not on file 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 Taisha Ennis in IR for abiopsy. The was given the two phone numbers for Dr. Ennis and was transferred to IR. documented in this encounter Plan of Treatment Not on file documented as of this encounter Visit Diagnoses Not on filedocumented in this encounter Care Teams Turning Sander Operator Relationship Specialty Start Date End Date Marcela Euceda NP [address] [place] [address] PCP - General Family Medicine 11/26/18 09/29/19 Jada Phillips NP [address] [place] [address] Nurse Practitioner Family Medicine 01/19/19 09/29/19 documented as of this encounter
--- OUTSIDE RECORDS SUMMARY | 2024-09-17 12:58 | XMS_ITS | Encounter Summary ---
Author Organization [facility] Healthcare Address [address] [place] [address] Care Team Providers Care Lead Pourer Name Role Phone OkMarcela PRIME MINISTER Primary Care Provider [phone] Jada Phillips PRIME MINISTER Unavailable Encounter Details Date Type Department Care Team (Late st Contact Info) Description 02/06/2019 Orders Only Radiology [address] [place] [address] Sudheer Vaughn MD PhD [address] [place] [address] [address] [place] [address] Social History Tobacco Use Types Packs/Day Years Used Date Smoking Tobacco: Never Smokeless Tobacco: Former Chew Quit: 08/2018 Comments:chews, not interest ed in counseling Alcohol Use Standard Drinks/Week Comments Yes 0 (1 standard drink = 0.6 oz pur e alcohol) can of beer a month Sex and Gender Information Value Date Recorded Sex Assigned at Not on file 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 Request for biopsy. PMH/PSH: Past Medical History: Diagnosis Date ??? Anxiety disorder Anxiety ??? Depression Depression ??? Diabetes mellitus (CMS/HCC) hypoglycemia ??? Erectile dysfunction ??? GERD (gastroesophageal reflux disease) ??? HX OTHER MEDICAL Hemorrhoids ??? HX OTHER MEDICAL hypoglycemic ??? Hypertension Hypertension ??? Sleep apnea Past Surgical History: Procedure Laterality Date ??? CARPAL TUNNEL RELEASE Carpal tunnel release ??? OTHER SURGICAL HISTORY Hemorrhoids: Hemorrhoidectomy ??? SHOULDER SURGERY shoulder surgery ROS: Review of systems per HPI and otherwise all other systems are negative Allergies: Patient has no known allergies. Current Meds: No outpatient medications have been marked as taking for the 02/06/19 encounter (Orders Only) with Sudheer Vaughn MD PhD. Physical exam: NAD, AOx4 RRR Nonlabored on RA ABD obse Most Recent Vitals: There were no vitals taken for this visit. Airway Assessment: normal Labs/Imaging: PLT 217 Assessment: 48M w newly discovered retroperitoneal lymphadenopathy, request for biopsy. - CT guided RP biopsy today ASA Score: 2 NPO time: after midnight Benefits, risks and alternatives of procedure and planned sedation have been discussed with the patient and/or their architectural representative. All questions answered and they agree to proceed. documented in this encounter Plan of Treatment Not on file documented as of this encounter Visit Diagnoses Not on filedocumented in this encounter Care Teams Lead Pourer Relationship Specialty Start Date End Date Marcela Euceda NP [address] [place] [address] PCP - General Family Medicine 11/26/18 09/29/19 Jada Phillips NP [address] [place] [address] [address] [place] [address] Nurse Practitioner Family Medicine 01/19/19 09/29/19 documented as of this encounter
--- OUTSIDE RECORDS SUMMARY | 2024-09-17 12:58 | XMS_ITS | Encounter Summary ---
Author Organization 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
--- OUTSIDE RECORDS SUMMARY | 2024-09-17 12:58 | XMS_ITS | Encounter Summary ---
Author Organization [facility] Healthcare Address [address] [place] [address] Care Team Providers Care Cold Roll Inspector Name Role Phone Marcela Euceda NP Primary Care Provider [phone] Jada Phillips ADMINISTRATIVE SERVICES DIRECTOR Unavailable Encounter Details Date Type Department Care Team (Late st Contact Info) Description 02/06/2019 Orders Only Radiology [address] [place] [address] Ana Laura Hooker MD [address] [facility] [address] [place] [address] Social History Tobacco Use Types Packs/Day Years Used Date Smoking Tobacco: Never Smokeless Tobacco: Former Chew Quit: 08/2018 Comments:chews, not interest ed in counseling Alcohol Use Standard Drinks/Week Comments Yes 0 (1 standard drink = 0.6 oz pur e alcohol) can of beer a month Sex and Gender Information Value Date Recorded Sex Assigned at Not on file 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
--- OUTSIDE RECORDS SUMMARY | 2024-09-17 12:58 | XMS_ITS | Encounter Summary ---
Author Organization [facility] Address [address] [place] [address] Phone Care Team Providers Care Skiver Uppers Or Linings Name Role Phone OkMarcela FUNCTIONAL CONSULTANT Primary Care Provider [phone] Jada Phillips FUNCTIONAL CONSULTANT Unavailable Reason for Referral * Diagnostic Imaging (Routine) - Closed Specialty Diagnoses / Procedures Referred By Contac t Referred To Contact Radiology Diagnoses Retroperitoneal lymphadenopathy Procedures CT Abdomen Pelvis W Contrast CT abdomen pelvis with and without contrast Payam Yancey MD Phone: tel: fax: [address] [phone] Referral ID Status Reason Start Date Expiration Date Visits Re quested Visits Authorized [id number] Closed 01/26/2019 08/06/2020 1 1 * Diagnostic Imaging (Routine) - Closed Specialty Diagnoses / Procedures Referred By Conttom t Referred To Contact Radiology Diagnoses Retroperitoneal lymphadenopathy Procedures IR Biopsy Abdomen Retroperitoneal Payam Yancey MD Phone: tel: fax: [address] [phone] Referral ID Status Reason Start Date Expiration Date Visits Re quested Visits Authorized [id number] Closed 01/26/2019 08/06/2020 1 1 Encounter Details Date Type Department Care Team (Late st Contact Info) Description 01/26/2019 Orders Only [facility] [address] [facility] 8th [place] [address] [place] [address] Payam Yancey MD [address] MSC: [id number] [place] [address] Retroperitoneal lymphadenopathy (Primary Dx) Social History Tobacco Use Types [...] on file 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 Prior to beginning the procedure, [place] Protocol was performed to confirm the patient's [...] was obtained. Prior to beginning the procedure, [place] Protocol was performed to confirm the patient's [...] it. Electronically signed by: Taisha Ennis M.D. us Paaym Yancey MD IMG IR PROCEDURES Fin al Result * CT Abdomen Pelvis W Contrast (01/30/2019 [...] in this encounter Visit Diagnoses Diagnosis Retroperitoneal lymphadenopathy- Primary Enlargement of lymph nodes Retroperitoneal lymphadenopathy Enlargement of lymph nodes Retroperitoneal lymphadenopathy Enlargement of lymph nodes documented in this encounter Care Teams Skiver Uppers Or Linings Relationship Specialty Start Date End Date Marcela Euceda NP [address] [place] [address] PCP - General Family Medicine 11/26/18 09/29/19 Jada Phillips NP [address] [place] [address] Nurse Practitioner Family Medicine 01/19/19 09/29/19 documented as of this encounter
--- OUTSIDE RECORDS SUMMARY | 2024-09-17 12:58 | XMS_ITS | Encounter Summary ---
Author Organization 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
--- OUTSIDE RECORDS SUMMARY | 2024-09-17 12:58 | XMS_ITS | Encounter Summary ---
Author Organization [facility] Healthcare Address [address] [place] [address] Care Team Providers Care Skein Tier Name Role Phone Marcela Euceda HYDROMETER FINISHER Primary Care Provider [phone] Jada Phillips HYDROMETER FINISHER Unavailable Encounter Details Date Type Department Care Team (Late st Contact Info) Description 02/04/[address] 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 Gender Identity Not on file Sexual Orientation Not on file documented as of this encounter Miscellaneous Notes * Telephone Encounter - Peter Machado RN - 02/04/2019 5:07 PM CDT Preprocedure Phone Call Procedure Time Verified: Yes Arrival Time Verified: Yes Procedure Location Verified: Yes Medical History Reviewed: No NPO Status Reinforced: Yes Ride and Caregiver Arranged: Yes Ride Caregiver Provider: Rhiannon Patient Knows to Bring Current Medications: Yes Patient Knows to Bring CPAP: Yes(CPAP ) Is Patient on Home Ventilator?: No Is Patient on Blood Thinners?: No Discharge Planning Living Arrangements: Spouse/significant other Support Systems: Spouse/significant other Type of Residence: Private residence Patient expects to be discharged to:: Private residence documented in this encounter Plan of Treatment Not on file documented as of this encounter Visit Diagnoses Not on filedocumented in this encounter Care Teams Skein Tier Relationship Specialty Start Date End Date Marcela Euceda NP [address] [facility] [address] [place] [address] PCP - General Family Medicine 11/26/18 09/29/19 Jada Phillips NP [address] [facility] [address] [place] [address] Nurse Practitioner Family Medicine 01/19/19 09/29/19 documented as of this encounter
--- OUTSIDE RECORDS SUMMARY | 2024-09-17 12:59 | XMS_ITS | Encounter Summary ---
Author Organization [facility] Address [address] [facility] [address] [place] [address] Care Team Providers Care Floral Designer Salesperson Name Role Phone Marcela Euceda NP Primary Care Provider Encounter Details Date Type Department Care Team (Late st Contact Info) Description 01/05/2019 Orders Only [facility] [address] [place] [address] Treva Stanley MD [address] [facility] [address] [place] [address] Social History Tobacco Use Types Packs/Day Years Used Date Smoking Tobacco: Never Smokeless Tobacco: Former Chew Quit: 08/2018 Comments:chews, not interest ed in counseling Alcohol Use Standard Drinks/Week Comments Yes 0 (1 standard drink = 0.6 oz pur e alcohol) can of beer a month Sex and Gender Information Value Date Recorded Sex Assigned at Not on file 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 Gender Identity Not on file Sexual Orientation Not on file documented as of this encounter Ordered Prescriptions Prescription Sig Dispense Quantity Refills Last Filled Start Date End Date pravastatin (PRAVACHOL) 40 mg tablet Take 1 tablet (40 mg total) by mouth daily 90 tablet 01/05/2019 03/18/2019 documented in this encounter Progress Notes * Marcela Euceda NP - 01/05/2019 6:50 PM CDT Lipid panel was completed 08/26 documented in this encounter Plan of Treatment Not on file documented as of this encounter Visit Diagnoses Not on filedocumented in this encounter Discontinued Medications Medication Sig Discontinue Reason Start Date End Da te pravastatin (PRAVACHOL) 40 mg tablet TAKE 1 TABLET BY MOUTH ONCE DAILY Reorder 11/28/2018 01/05/2019 documented as of this encounter Care Teams Floral Designer Salesperson Relationship Specialty Start Date End Date Marcela Euceda NP [address] [place] [address] PCP - General Family Medicine 11/26/18 09/29/19 documented as of this encounter
--- OUTSIDE RECORDS SUMMARY | 2024-09-17 12:59 | XMS_ITS | Encounter Summary ---
Author Organization [facility] Medical Group Address [address] [facility] [address] [place] [address] Care Team Providers Care Account Services Coordinator Name Role Phone Marcela Euceda NP Primary Care Provider [phone] Reason for Visit * Reason Onset Date Comments Med Refill 01/01/2019 Encounter Details Date Type Department Care Team (Late st Contact Info) Description 01/01/2019 Telephone [facility] [address] [place] [address] Marcela Euceda NP [address] [facility] [address] [place] [address] Med Refill Social History Tobacco Use Types Packs/Day Years Used Date Smoking Tobacco: Never Smokeless Tobacco: Former Chew Quit: 08/2018 Comments:chews, not interest ed in counseling Alcohol Use Standard Drinks/Week Comments Yes 0 (1 standard drink = 0.6 oz pur e alcohol) can of beer a month Sex and Gender Information Value Date Recorded Sex Assigned at Not on file 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 Gender Identity Not on file Sexual Orientation Not on file documented as of this encounter Miscellaneous Notes * Telephone Encounter - Cortney Long MA - 01/02/2019 10:35 AM CDT Done * Telephone Encounter - Marcela Euceda NP - 01/01/2019 2:17 PM CDT Please order #[id number] refill * Telephone Encounter - Cortney Long MA - 01/01/2019 1:31 PM CDT PT is now using [facility] for med refills PT needs new scripts for Ranitidine 300mg and Pravastatin 40mg sent to [facility] please review documented in this encounter Plan of Treatment Not on file documented as of this encounter Visit Diagnoses Not on filedocumented in this encounter Care Teams Account Services Coordinator Relationship Specialty Start Date End Date Marcela Euceda NP [address] [place] [address] PCP - General Family Medicine 11/26/18 09/29/19 documented as of this encounter
--- OUTSIDE RECORDS SUMMARY | 2024-09-17 12:59 | XMS_ITS | Encounter Summary ---
Author Organization 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 Gender Identity Not on file Sexual Orientation Not on file documented as of this encounter Plan of Treatment Not on file documented as of this encounter Procedures Procedure Name Priority Date/Time Associated Diagnosis Comments SCAN - LABS 11/21/2018 11:26 AM CDT documented in this encounter Results * SCAN - LABS (11/21/2018 11:26 AM CDT) us Provider Scanning Final Result documented in this encounter Visit Diagnoses Not on filedocumented in this encounter Care Teams Personal Care Worker Relationship Specialty Start Date End Date Kiarra Zhong DO PCP - General Family Medicine 10/20/18 11/25/18 documented as of this encounter
--- OUTSIDE RECORDS SUMMARY | 2024-09-17 12:59 | XMS_ITS | Encounter Summary ---
Author Organization [facility] Medical Group Address [address] [facility] [address] [place] [address] Care Team Providers Care Embroidery Finisher Name Role Phone Kiarra Zhong DO Primary Care Provider [phone] Reason for Visit * Reason Onset Date Comments OV vs Procedures 10/30/2018 Encounter Details Date Type Department Care Team (Late st Contact Info) Description 10/30/2018 Telephone [facility] [address] [facility] [address] [place] [address] [place] [address] [facility] [address] [place] [address] OV vs Procedures Social History Tobacco Use Types Packs/Day Years Used Date Smoking Tobacco: Never Smokeless Tobacco: Former Chew Quit: 08/2018 Comments:chews, not interest ed in counseling Alcohol Use Standard Drinks/Week Comments Yes 0 (1 standard drink = 0.6 oz pur e alcohol) can of beer a month Sex and Gender Information Value Date Recorded Sex Assigned at Not on file 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 Gender Identity Not on file Sexual Orientation Not on file documented as of this encounter Miscellaneous Notes * Telephone Encounter - Vira Rico - 11/07/2018 8:56 AM CST Mailed colon letter R SALES ASSOCIATE * Telephone Encounter - Vira Rico - 10/31/2018 8:26 AM CST lmom for patient to call the office R SALES ASSOCIATE * Telephone Encounter - Elgin Marti MD - 10/30/2018 2:30 PM CST Can schedule egd/colon same day R SALES ASSOCIATE * Telephone Encounter - Vira Rico - 10/30/2018 2:20 PM CST Patient referred by Nguyen Coronado NP for Non-intractable cyclical vomiting 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
--- OUTSIDE RECORDS SUMMARY | 2024-09-17 12:59 | XMS_ITS | Encounter Summary ---
Author Organization [facility] Address [address] [facility] [address] [place] [address] Care Team Providers Care Carpenter Maintenance Name Role Phone Marcela Euceda NP Primary Care Provider [phone] Reason for Visit * Consultation (Routine) - Closed Specialty Diagnoses / Procedures Referred By Zaida camacho Referred To Contact Neurology Diagnoses Obstructive sleep apnea syndrome Primary insomnia Nguyen Coronado NP Phone: tel: fax: Aristeo Oro MD [address] [place] [address] DR DIDIER Hong [facility] [address] [place] [address] Phone: tel: fax: Referral ID Status Reason Start Date Expiration Date V isits Requested Visits Authorized [id number] Closed Specialty Services Required 10/20/2018 04/30/2020 1 1 Encounter Details Date Type Department Care Team (Late st Contact Info) Description 11/27/2018 8:30 AM CDT Office Visit [facility] [address] [facility] [address] [place] [address] Aristeo Oro MD [address] [place] [address] [address] DID[address] Hong [facility] [address] [place] [address] Obstructive sleep apnea syndrome (Primary Dx); Hypersomnia with sleep apnea; Obesity (BMI 30.0-34.9) Social History Tobacco Use Types Packs/Day Years Used Date Smoking Tobacco: Never Smokeless Tobacco: Former Chew Quit: 08/2018 Comments:chews, not interest ed in counseling Alcohol Use Standard Drinks/Week Comments Yes 0 (1 standard drink = 0.6 oz pur e alcohol) can of beer a month Sex and Gender Information Value Date Recorded Sex Assigned at Not on file 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 Gender Identity Not on file Sexual Orientation Not on file documented as of this encounter Last Filed Vital Signs Vital Sign Reading Time Taken Comments Blood Pressure 132/86 11/27/2018 8:16 AM CDT Pulse 71 11/27/2018 8:16 AM CDT Temperature - - Respiratory Rate - - Oxygen Saturation - - Inhaled Oxygen Concentration - - Weight 121.1 kg (267 lb) 11/27/2018 8:16 AM CDT Height 188 cm (6' 2 ) 11/27/2018 8:16 AM CDT Body Mass Index 34.28 11/27/2018 8:16 AM CDT documented in this encounter Progress Notes * Aristeo Oro MD - 11/27/2018 8:30 AM CDT Chief complaints: Obstructive sleep apnea syndrome and intolerance to positive pressure therapy because of ill-fitting mask HPI Mr. De La Torre presents for consultation. He has been referred by Ms. Ok NP for opinion regarding his above condition and symptoms. He is a very pleasant 48-year-old gentleman who was been diagnosedwith obstructive sleep apnea syndrome. Goes to bed at 10:00 p.m. And awakens at 5:30 a.m.. On his days off he goes to bed at 10:00 p.m. And awakens at 9:00 a.m.. Takes 20 min to fall asleep. Endorsessymptoms of loud snoring, witnessed stoppage of breath while sleeping awakening gasping for air, restless sleep, creepy crawly feeling legs, leg jerks, as well as urge to move his legs. Denies symptoms of talking sleep, walking sleep, episodes of confusion or nighttime wheezing. Awakens several time s, occasionally go to the restroom. Falls asleep within matter of minutes. Awakens with a perception of non refreshing sleep. Does feel fatigued and sleepy in the daytime. [place] Sleepiness Scale score is 16. He falls asleep in the daytime frequently. These naps on refreshing. He dreams not dream during these naps. Denies symptoms of cataplexy, hypnagogic hallucination but does endorse occasional sleep paralysis symptoms. Patient was diagnosed with obstructive sleep apnea syndrome long time ago and was on Continuous positive airway pressure of 18 cm. His recent machine is new and it start alyssia low pressure. The pressure is intolerable. He feels gasping for air at the low pressure start. Als o he does not like his present mask. Days into his nose and a consequence of intolerance to his mask fitting, he has been noncompliant with worsening symptoms of daytime sleepiness. Past Medical History: Diagnosis Date ??? Anxiety disorder Anxiety ??? Depression Depression ??? HX OTHER MEDICAL Hemorrhoids ??? HX OTHER MEDICAL hypoglycemic ??? Hypertension Hypertension ??? Sleep apnea Social History Socioeconomic History ??? Marital status: Spouse name: Not on file ??? Number of children: Not on file ??? Years of education: Not on file ??? Highest education level: Not on file Occupational History ??? Not on file Social Needs ??? Financial resource strain: Not on file ??? Food insecurity: Worry: Not on file Inability: Not on file ??? Transportation needs: Medical: Not on file Non-medical: Not on file Tobacco Use ??? Smoking status: Never Smoker ??? Smokeless tobacco: Former User Types: Chew ??? Tobacco comment: chews, not interested in counseling Substance and Sexual Activity ??? Alcohol use: Yes Comment: can of beer a month ??? Drug use: No ??? Sexual activity: Defer Lifestyle ??? Physical activity: Days per week: Not on file Minutes per session: Not on file ??? Stress: Not on file Relationships ??? Social connections: Talks on phone: Not on file Gets together: Not on file Attends catholic service: Not on file Active member of club or organization: Not on file Attends meetings of clubs or organizations: Not on file Relationship status: Not on file ??? Intimate partner violence: Fear of current or ex partner: Not on file Emotionally abused: Not on file Physically abused: Not on file Forced sexual activity: Not on file Other Topics Concern ??? Not on file Social History Narrative ??? Not on file Family History Problem Relation Age of Onset ??? Throat cancer Father Cancer, throat; ??? Cancer Father ??? Hypertension Mother Review of Systems Constitutional: Negative. Negative for fatigue. HENT: Negative. Eyes: Negative. Respiratory: Negative. Cardiovascular: Positive for chest pain and palpitations. Gastrointestinal: Negative. Endocrine: Negative. Genitourinary: Negative. Musculoskeletal: Negative. Skin: Negative. Allergic/Immunologic: Negative. Neurological: Negative. Hematological: Negative. Psychiatric/Behavioral: Negative. BP 132/86 Pulse 71 Ht 188 cm (6' 2 ) Wt 121.1 kg (267 lb) BMI 34.28 kg/m?? Physical Exam Constitutional: He appears well-developed and well-nourished. HENT: Head: Normocephalic and atraumatic. Mallampati airway class IV Eyes: Pupils are equal, round, and reactive to light. Conjunctivae are normal. Neck: Normal range of motion. Neck supple. Cardiovascular: Normal rate, regular rhythm and intact distal pulses. Pulmonary/Chest: Effort normal and breath sounds normal. Abdominal: Soft. Bowel sounds are normal. Musculoskeletal: Normal range of motion. Neurological: ALERT AND ORIENTED TO TIME PLACE AND PERSON. Skin: Skin is warm and dry. Psychiatric: He has a normal mood and affect. AP 1. Obstructive sleep apnea: Patient has an established diagnosis of obstructive sleep apnea syndrome. Presently on automatic positive pressure therapy. Compliance download reveals non compliant therapy. Primarily because of low pressure start. Ninety-eighth percentile pressure is 15.4 cm. Recommendchanging automatic positive pressure ranges to 15-20 cm. Also patient is struggling with present mask. A dream wear fullface mask was recommended. The physiology of sleep disordered breathing and itsincreased association with hypertension, diabetes, heart arrhythmia, strokes, heart attacks, heart failure, hypersomnia, obesity and mood disorders was discussed. Patient verbalizes understanding. Compliance download revealed 43.3% usage. Averaging 2 hr and 33 min residual AHI 3.4. Ninety-eighthpercentile pressure 3.4 cm. 2. Hypersomnia: Primarily from sleep fragmentation associated with uncontrolled sleep disordered breathing. Monitor response to therapy for the above. 3. Obesity:The effects of obesity obstructive sleep apnea syndrome and other morbidities was discussed. Recommended diet and exercise in losing weight. Patient verbalizes an understanding. documented in this encounter Plan of Treatment Scheduled Referrals Name Type Priority Associated Diagnoses Order Schedule Ambulatory referral to Neurology Outpatient Referral Routine Obstructive sleep apnea syndrome Primary insomnia Ordered: 10/20/2018 documented as of this encounter Visit Diagnoses Diagnosis Obstructive sleep apnea syndrome- Primary Obstructive sleep apnea (adult) (pediatric) Hypersomnia with sleep apnea Hypersomnia with sleep apnea, unspecified Obesity (BMI 30.0-34.9) documented in this encounter Care Teams Carpenter Maintenance Relationship Specialty Start Date End Date Marcela Euceda NP [address] [place] [address] PCP - General Family Medicine 11/26/18 09/29/19 documented as of this encounter
--- OUTSIDE RECORDS SUMMARY | 2024-09-17 12:59 | XMS_ITS | Encounter Summary ---
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
--- OUTSIDE RECORDS SUMMARY | 2024-09-17 12:59 | XMS_ITS | Encounter Summary ---
Author Organization [facility] Address [address] [place] [address] Care Team Providers Care Carbonating Stone Cleaner Name Role Phone Kiarra Zhong DO Primary Care Provider [phone] Reason for Visit * Reason Onset Date Comments Records release 11/06/2018 sign Encounter Details Date Type Department Care Team (Late st Contact Info) Description 11/06/[address] 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 Head. I scanned in the information to labs and also placed the physical copy in Dr. dias basket to review. * Telephone Encounter - Lily Chavez - 11/06/2018 1:23 PM CST I contacted the patient asking if the next time he was in [place] if he could stop by and sign records release [facility]. I will also mail him a records release form,he works 'odd hours' so he's not sure when the next time he may get up here will be. SPECIALIST documented in this encounter Plan of Treatment Not on file documented as of this encounter Visit Diagnoses Not on filedocumented in this encounter Care Teams Carbonating Stone Cleaner Relationship Specialty Start Date End Date Kiarra Zhong DO PCP - General Family Medicine 10/20/18 11/25/18 documented as of this encounter
--- OUTSIDE RECORDS SUMMARY | 2024-09-17 12:59 | XMS_ITS | Encounter Summary ---
Author Organization [facility] Address [address] [place] [address] Care Team Providers Care Statistician Mathematical Name Role Phone ZhongKiarra Primary Care Provider [phone] Reason for Referral * Consultation (Routine) - Closed Specialty Diagnoses / Procedures Referred By Contac t Referred To Contact Otolaryngology Diagnoses Abnormal gag reflex Nguyen Coronado NP Phone: tel: fax: Arcelia Head DO Phone: tel: fax: Referral ID Status Reason Start Date Expiration Date V isits Requested Visits Authorized [id number] Closed Specialty Services Required 10/20/2018 04/30/2020 1 1 Question Answer Please select the performing region: External Order [[id number]] Comments [facility] [phone] THESIOLOGIST AND CRITICAL CARE * Consultation (Routine) - Closed Specialty Diagnoses / Procedures Referred By Contac t Referred To Contact Gastroenterology Diagnoses Non-intractable cyclical vomiting without nausea Screening for colon cancer Abnormal gag reflex Nguyen Coronado NP Phone: tel: fax: [place] [id number] [facility] [address] [place] [address] Phone: tel: fax: Referral ID Status Reason Start Date Expiration Date V isits Requested Visits Authorized [id number] Closed Specialty Services Required 10/20/2018 04/30/2020 1 1 Question Answer Please select the performing region: [facility] [[id number]] Please select the performing department: [facility] [[id number]] Comments Reidel THESIOLOGIST AND CRITICAL CARE * Consultation (Routine) - Closed Specialty Diagnoses / Procedures Referred By Contac t Referred To Contact Neurology Diagnoses Obstructive sleep apnea syndrome Primary insomnia Nguyen Coronado NP Phone: tel: fax: Aristeo Kramer MD [address] [place] [address] [address] [place] [address] Phone: tel: fax: Referral ID Status Reason Start Date Expiration Date V isits Requested Visits Authorized [id number] Closed Specialty Services Required 10/20/2018 04/30/2020 1 1 Question Answer Please select the performing region: [facility] [[id number]] Please select the performing department: [facility] [[id number]] Comments ARISTEO KRAMER [[id number]] THESIOLOGIST AND CRITICAL CARE Reason for Visit * Reason Comments New Patient establish care Fatigue Restless Legs Hypertension Encounter Details Date Type Department Care Team (Late st Contact Info) Description 10/20/2018 3:45 PM ANESTHESIOLOGIST AND CRITICAL CARE Office Visit [facility] [address] [place] [address] Nguyen Coronado NP [address] [place] [address] Encounter to establish care (Primary Dx); Essential hypertension; Restless legs syndrome; Obstructive sleep apnea syndrome; Primary insomnia; Screening for prostate cancer; Non-intractable cyclical vomiting without nausea; Screening for colon cancer; Abnormal gag reflex; Mixed hyperlipidemia; Palpitation Social History Tobacco Use Types Packs/Day Years Used Date Smoking Tobacco: Never Smokeless Tobacco: Current Chew Comments:chews, not interest ed in counseling Alcohol Use Standard Drinks/Week Comments Yes 0 (1 standard drink = 0.6 oz pur e alcohol) can of beer a month Sex and Gender Information Value Date Recorded Sex Assigned at Not on file 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 ANESTHESIOLOGIST AND CRITICAL CARE Gender Identity Not on file Sexual Orientation Not on file documented as of this encounter Last Filed Vital Signs Vital Sign Reading Time Taken Comments Blood Pressure 147/90 10/20/2018 4:26 PM ANESTHESIOLOGIST AND CRITICAL CARE Pulse 71 10/20/2018 4:26 PM ANESTHESIOLOGIST AND CRITICAL CARE Temperature 36.6 ??C (97.9 ??F) 10/20/2018 4:26 PM CS T Respiratory Rate 18 10/20/2018 4:26 PM ANESTHESIOLOGIST AND CRITICAL CARE Oxygen Saturation 95% 10/20/2018 4:26 PM ANESTHESIOLOGIST AND CRITICAL CARE Inhaled Oxygen Concentration - - Weight 108 kg (238 lb) 10/20/2018 4:26 PM ANESTHESIOLOGIST AND CRITICAL CARE Height 188 cm (6' 2 ) 10/20/2018 4:26 PM ANESTHESIOLOGIST AND CRITICAL CARE Body Mass Index 30.56 10/20/2018 4:26 PM ANESTHESIOLOGIST AND CRITICAL CARE documented in this encounter Patient Instructions * Patient Instructions* Nguyen Coronado, ALAN - 10/20/2018 5:20 PM ANESTHESIOLOGIST AND CRITICAL CARE Images from the original note were not included. Assessment & Plan: Diagnoses and all orders for this visit: Essential hypertension (Primary) Assessment & Plan: Hypertension is worsening. Medication changes per orders. Blood pressure will be reassessed in 3 months. Lifestyle changes can help you control and prevent high blood pressure, even if you're taking bloodpressure medication. Here's what you can do: Eat healthy foods. Eat a healthy diet. Try the Dietary Approaches to Stop Hypertension (DASH) diet,which emphasizes fruits, vegetables, whole grains, poultry, fish [...] office for blood pressure greater than 130/80 Orders: - buPROPion XL (WELLBUTRIN XL) 150 mg 24 hr tablet; Take 1 tablet (150 mg total) by mouth daily. - metoprolol XL (TOPROL-XL) 25 mg 24 hr tablet; Take 1 tablet (25 mg total) by mouth daily. - lisinopril (PRINIVIL,ZESTRIL) 5 mg tablet; Take 1 tablet (5 mg total) by mouth daily. Restless legs syndrome - pramipexole (MIRAPEX) 1.5 mg tablet; Take 1 tablet (1.5 mg total) by mouth 3 (three) times a day. Obstructive sleep apnea syndrome - Ambulatory referral to Neurology Primary insomnia - Ambulatory referral to Neurology Encounter to establish care Palpitation Screening for prostate cancer - PSA screen; Future Non-intractable cyclical vomiting without nausea - Ambulatory referral to Gastroenterology Screening for colon cancer - Ambulatory referral to Gastroenterology Abnormal gag reflex - Ambulatory referral to ENT Other orders - pravastatin (PRAVACHOL) 40 mg tablet; Take 1 tablet (40 mg total) by mouth daily. - aspirin 81 mg chewable tablet; Take 1 tablet (81 mg total) by mouth daily. - cholecalciferol (VITAMIN D-3) 1,000 unit; Take 1 tablet/capsule (1,000 Units total) by mouth daily. BMI Follow-up includes: education provided. Body mass index is 30.56 kg/m??. Nguyen Coronado NP Written Information was given to patient regarding diagnosis and treatment. Disposition- Discussed medications dosages, usage & potential side effects. Risks and interactions reviewed with patient. Indications for testing reviewed. Patient has been instructed to follow up w PCP or go to ER for any signs or symptoms that are of concern or worsening. Patient verbalizes understanding. The patient was given the opportunity to ask all questions and to have all questions answered. Patient is in agreement with the plan of care Patient Education Chronic Hypertension CPC CODER: Hypertension is high blood pressure (BP). Your BP is the force of your blood moving against the negrete of your arteries. Normal BP is less than 120/80. Prehypertension is between 120/80 and 139/89. Hypertension is 140/90 or higher. Hypertension causes your BP to get so high that your heart has to work much harder than normal. This can damage your heart. Chronic hypertension is a long- term condition that you can control with a healthy lifestyle or medicines. A controlled blood pressure helps protect your organs, such as your heart, lungs, brain, and kidneys. Common symptoms include the following: ?? Headache ?? Blurred vision ?? Chest pain ?? Dizziness or weakness ?? Trouble breathing ?? Nosebleeds Call 911 for any of the following: ?? You have discomfort in your chest that feels like squeezing, pressure, fullness, or pain. ?? You become confused or have difficulty speaking. ?? You suddenly feel lightheaded or have trouble breathing. ?? You have pain or discomfort in your back, neck, jaw, stomach, or arm. Seek care immediately if: ?? You have a severe headache or vision loss. ?? You have weakness in an arm or leg. Contact your healthcare provider if: ?? You feel faint, dizzy, confused, or drowsy. ?? You have been taking your BP medicine and your BP is still higher than your healthcare provider says it should be. ?? You have questions or concerns about your condition or care. Treatment for chronic hypertension may include medicine to lower your BP and lower your cholesterollevel. A low cholesterol level helps prevent heart disease and makes it easier to control your blood pressure. Heart disease can make your blood pressure harder to control. You may also need to make lifestyle changes. Take your medicine exactly as directed. Manage chronic hypertension: Talk with your healthcare provider about these and other ways to manage hypertension: ?? Take your BP at home. Sit and rest for 5 minutes before you take your BP. Extend your arm and support it on a flat surface. Your arm should be at the same level as your heart. Follow the directions that came with your BP monitor. If possible, take at least 2 BP readings each time. Take your BP at least twice a day at the same times each day, such as morning and evening. Keep a record of your BP readings and bring it to your follow-up visits. Ask your healthcare provider what your blood pressure should be. ?? Limit sodium (salt) as directed. Too much sodium can affect your fluid balance. Check labels to find low-sodium or ax-dvuf-[id number] foods. Some low-sodium foods use potassium salts for flavor. Too much potassium can also cause health problems. Your healthcare provider will tell you how much sodium and potassium are safe for you to have in a day. He or she may recommend that you limit sodium to 2,300 mg a day. ?? Follow the meal plan recommended by your healthcare provider. A dietitian or your provider can give you more information on low-sodium plans or the DASH (Dietary Approaches to Stop Hypertension) eating plan. The DASH plan is low in sodium, unhealthy fats, and total fat. It is high in potassium, calcium, and fiber. ?? Exercise to maintain a healthy weight. Exercise at least 30 minutes per day, on most days of theweek. This will help decrease your blood pressure. Ask about the best exercise plan for you. ?? Decrease stress. This may help lower your BP. Learn ways to relax, such as deep breathing or listening to music. ?? Limit alcohol. Women should limit alcohol to 1 drink a day. Men should limit alcohol to 2 drinksa day. A drink of alcohol is 12 ounces of beer, 5 ounces of wine, or 1?? ounces of liquor. ?? Do not smoke. Nicotine and other chemicals in cigarettes and cigars can increase your BP and also cause lung damage. Ask your healthcare provider for information if you currently smoke and need help to quit. E-cigarettes or smokeless tobacco still contain nicotine. Talk to your healthcare provider before you use these products. Follow up with your healthcare provider as directed: You will need to return to have your BP checked and to have other lab tests done. Write down your questions so you remember to ask them during your visits. ?? 2017 [employer] (now [employer]) Information is for End User's use only and may not be sold, redistributed or otherwise used for commercial purposes. All illustrations and images included in CareNotes?? are the copyrighted property of [employer]. or [employer]. The above information is an environmental health aide only. It is not intended as medical advice for individual conditions or treatments. Talk to your doctor, nurse or pharmacist before following any medical regimen to see if it is safe and effective for you. THESIOLOGIST AND CRITICAL CARE THESIOLOGIST AND CRITICAL CARE THESIOLOGIST AND CRITICAL CARE documented in this encounter Ordered Prescriptions Prescription Sig Dispense Quantity Refills Last Filled Start Date End Date pramipexole (MIRAPEX) 1.5 mg tabletIndications: Restless legs syndrome Take 1 tablet (1.5 mg total) by mouth 3 (three) times a day. 90 tablet 11 10/20/2018 03/30/2019 lisinopril (PRINIVIL,ZESTRIL) 5 mg tabletIndications: Essential hypertension Take 1 tablet (5 mg total) by mouth daily. 90 tablet 2 10/20/2018 01/21/2019 metoprolol XL (TOPROL-XL) 25 mg 24 hr tabletIndications: Essential hypertension Take 1 tablet (25 mg total) by mouth daily. 90 tablet 3 10/20/2018 01/21/2019 cholecalciferol (VITAMIN D-3) 1,000 unit Take 1 tablet/capsu le (1,000 Units total) by mouth daily. 90 tablet/capsule 1 10/20/2018 02/08/2021 aspirin 81 mg chewable tabletIndications: prevention of thrombosis,dydlipi demia Take 1 tablet (81 mg total) by mouth daily. 30 tablet 10/20/2018 02/08/2021 buPROPion XL (WELLBUTRIN XL) 150 mg 24 hr tabletIndications: Anxiety with Depression Take 1 tablet (150 mg total) by mouth daily. 90 tablet 2 10/20/2018 01/21/2019 metoprolol (LOPRESSOR) 25 mg tablet Take 1 tablet (25 mg total) by mouth 2 (two) times a day. 60 tablet 10/20/2018 10/20/2018 pravastatin (PRAVACHOL) 40 mg tabletIndications: hyperlipidemia Take 1 tablet (40 mg total) by mouth daily. 30 tablet 10/20/2018 11/26/2018 documented in this encounter Progress Notes * Nguyen Coronado, ALAN - 10/20/2018 3:45 PM CST Images from the original note were not included. Jaden De La Torre Chief Complaint. Chief Complaint Patient presents with ??? New Patient establish care ??? Fatigue ??? Restless Legs ??? Hypertension HPI. Patient is a 48 y.o. male Pt. Here to establish care. Was recently in the hospital in August Had cardiac event monitor done at discharge Ruled out for [place] Past Medical History: Diagnosis Date ??? Anxiety disorder Anxiety ??? Depression Depression ??? HX OTHER MEDICAL Hemorrhoids ??? HX OTHER MEDICAL hypoglycemic ??? Hypertension Hypertension ??? Sleep apnea Past Surgical History: Procedure Laterality Date ??? CARPAL TUNNEL RELEASE Carpal tunnel release ??? OTHER SURGICAL HISTORY Hemorrhoids: Hemorrhoidectomy ??? SHOULDER SURGERY shoulder surgery HOME MEDICATIONS : buPROPion XL (WELLBUTRIN XL) 150 mg 24 hr tablet cholecalciferol (VITAMIN D-3) 1,000 unit buPROPion XL (WELLBUTRIN XL) 150 mg 24 hr tablet cholecalciferol (VITAMIN D-3) 1,000 unit pramipexole (MIRAPEX) 1 mg tablet aspirin 81 mg chewable tablet lisinopril (PRINIVIL,ZESTRIL) 5 mg tablet metoprolol XL (TOPROL-XL) 25 mg 24 hr tablet pramipexole (MIRAPEX) 1.5 mg tablet pravastatin (PRAVACHOL) 40 mg tablet aspirin 81 mg chewable tablet metoprolol (LOPRESSOR) 25 mg tablet metoprolol (LOPRESSOR) 25 mg tablet pravastatin (PRAVACHOL) 40 mg tablet No Known Allergies Social History Substance Use Topics ??? Smoking status: Never Smoker ??? Smokeless tobacco: Current User Types: Chew Comment: chews, not interested in counseling ??? Alcohol use Yes Comment: can of beer a month Family History Problem Relation Age of Onset ??? Throat cancer Father Cancer, throat; Review of Systems: Review of Systems Constitutional: Positive for fatigue. HENT: Positive for congestion, postnasal drip and sinus pressure. Negative for nosebleeds. Eyes: Positive for visual disturbance. Respiratory: Negative for shortness of breath. Cardiovascular: Positive for palpitations. Gastrointestinal: Positive for nausea and vomiting. Negative for blood in stool. Vomit every morning Endocrine: Positive for polydipsia and polyphagia. Genitourinary: Negative. Negative for hematuria. Musculoskeletal: Positive for arthralgias, back pain, neck pain and neck stiffness. Knees, back, shoulder, neck Neurological: Positive for headaches. Negative for dizziness and light-headedness. Hematological: Negative. Psychiatric/Behavioral: Positive for sleep disturbance. The patient is nervous/anxious. BP 147/90 Pulse 71 Temp 36.6 ??C (97.9 ??F) (Oral) Resp 18 Ht 188 cm (6' 2 ) Wt 108 kg (238 lb) SpO2 95% BMI 30.56 kg/m?? Physical Exam: Physical Exam Constitutional: He is oriented to person, place, and time. Vital signs are normal. He appears well-developed and well-nourished. He is cooperative. HENT: Head: Normocephalic. Right Ear: Hearing, tympanic membrane, external ear and ear canal normal. Left Ear: Hearing, tympanic membrane, external ear and ear canal normal. Nose: Nose normal. Mouth/Throat: Uvula is midline, oropharynx is clear and moist and mucous membranes are normal. Abnormal gag reflex Crowded oropharynx Enlarged tonsils? Eyes: Pupils are equal, round, and reactive to light. Conjunctivae are normal. Neck: Normal range of motion. Neck supple. Cardiovascular: Normal rate, regular rhythm, normal heart sounds, intact distal pulses and normal pulses. Pulmonary/Chest: Effort normal and breath sounds normal. Abdominal: Soft. Bowel sounds are normal. Musculoskeletal: Normal range of motion. Lymphadenopathy: He has no cervical adenopathy. Neurological: He is alert and oriented to person, place, and time. GCS eye subscore is 4. GCS verbal subscore is 5. GCS motor subscore is 6. Skin: Skin is warm and dry. Capillary refill takes less than 2 seconds. Psychiatric: He has a normal mood and affect. His speech is normal and behavior is normal. Cognition and memory are normal. Nursing note and vitals reviewed. Assessment & Plan: Diagnoses and all orders for this visit: Encounter to establish care (Primary) Essential hypertension Assessment & Plan: Hypertension is worsening. Uncontrolled Pt. Has not [...] high blood pressure, even if you're taking bloodpressure medication. Here's what you can do: Eat healthy foods. Eat a healthy diet. Try the Dietary Approaches to Stop Hypertension (DASH) diet,which emphasizes fruits, vegetables, whole grains, poultry, fish [...] office for blood pressure greater than 130/80 Orders: - buPROPion XL (WELLBUTRIN XL) 150 mg 24 hr tablet; Take 1 tablet (150 mg total) by mouth daily. - aspirin 81 mg chewable tablet; Take 1 tablet (81 mg total) by mouth daily. - metoprolol XL (TOPROL-XL) 25 mg 24 hr tablet; Take 1 tablet (25 mg total) by mouth daily. - lisinopril (PRINIVIL,ZESTRIL) 5 mg tablet; Take 1 tablet (5 mg total) by mouth daily. Restless legs syndrome Assessment & Plan: Reports worsening RLS Needs to get updated sleep study and his TAJ controlled Will increase his Mirapex for now Check TSH, MG, Ferritin Activities in the evening that can help reduce mild symptoms of RLS include stretching, flexing, massaging affected areas, warm or cool baths, or light exercise. Substances known to cause or worsen RLS (e.g., caffeine, nicotine, and alcohol) should be minimized. Orders: - pramipexole (MIRAPEX) 1.5 mg tablet; Take 1 tablet (1.5 mg total) by mouth 3 (three) times a day. - Magnesium; Future - TSH reflex to free T4; Future - Ferritin; Future Obstructive sleep apnea syndrome Assessment & Plan: Hx of TAJ Last sleep study about 9 years ago Wakes up tired, fatigue, unrefreshed, still problems with sleep and snoring Needs updated sleep study TAJ may be increasing his symptoms of RLS at night Refer to Dr. Kramer Orders: - Ambulatory referral to Neurology Primary insomnia - Ambulatory referral to Neurology Screening for prostate cancer - PSA screen; Future Non-intractable cyclical vomiting without nausea Assessment & Plan: Reports almost daily vomiting in the morning when he wakes up. No nausea associated with it. Unsure if it is related to his TAJ, hypersensitive gag reflex or if there is an enlarged tonsil/mass hitting the gag reflex Refer to ENT and GI I do believe he has GERD Orders: - Ambulatory referral to Gastroenterology Screening for colon cancer - Ambulatory referral to Gastroenterology Abnormal gag reflex - Ambulatory referral to Gastroenterology - Ambulatory referral to ENT Mixed hyperlipidemia Assessment & Plan: Lipid abnormalities are unchanged. Nutritional counseling was provided. Lipids will be reassessed in 3 months. Continue with pravastatin Recheck Lipids in 6 months Palpitation Assessment & Plan: Recent chest pain, palpitations and went to ER 08/24/18 CXR normal Stress exercise Echo-Conclusions: Adequate stress test in regards to heart rate. No exercise induced chest pain. No definite ischemia on stress EKG. No Echocardiographic evidence of ischemia. Other orders - pravastatin (PRAVACHOL) 40 mg tablet; Take 1 tablet (40 mg total) by mouth daily. - cholecalciferol (VITAMIN D-3) 1,000 unit; Take 1 tablet/capsule (1,000 Units total) by mouth daily. Reviewed all labs and test results with patient from being in the hospital. Reviewed dx and educated patient on risk of non-compliance. BMI Follow-up includes: education provided. Body mass index is 30.56 kg/m??. Nguyen Coronado NP Written Information was given to patient regarding diagnosis and treatment. Disposition- Discussed medications dosages, usage & potential side effects. Risks and interactions reviewed with patient. Indications for testing reviewed. Patient has been instructed to follow up w PCP or go to ER for any signs or symptoms that are of concern or worsening. Patient verbalizes understanding. The patient was given the opportunity to ask all questions and to have all questions answered. Patient is in agreement with the plan of care THESIOLOGIST AND CRITICAL CARE documented in this encounter Miscellaneous Notes * Assessment & Plan Note - Nguyen Coronado NP - 10/20/2018 10:51 PM ANESTHESIOLOGIST AND CRITICAL CARE Associated Problem(s): Palpitation (Resolved 09/30/2019) Recent chest pain, palpitations and went to ER 08/24/18 CXR normal Stress exercise Echo-Conclusions: Adequate stress test in regards to heart rate. No exercise induced chest pain. No definite ischemia on stress EKG. No Echocardiographic evidence of ischemia. THESIOLOGIST AND CRITICAL CARE * Assessment & Plan Note - Nguyen Coronado NP - 10/20/2018 10:30 PM ANESTHESIOLOGIST AND CRITICAL CARE Associated Problem(s): Restless legs syndrome Reports worsening RLS Needs to get updated sleep study and his TAJ controlled Will increase his Mirapex for now Check TSH, MG, Ferritin Activities in the evening that can help reduce mild symptoms of RLS include stretching, flexing, massaging affected areas, warm or cool baths, or light exercise. Substances known to cause or worsen RLS (e.g., caffeine, nicotine, and alcohol) should be minimized. THESIOLOGIST AND CRITICAL CARE * Assessment & Plan Note - Nguyen Coronado NP - 10/20/2018 10:25 PM ANESTHESIOLOGIST AND CRITICAL CARE Associated Problem(s): Non-intractable cyclical vomiting without nausea (Resolved 04/28/2020) Reports almost daily vomiting in the morning when he wakes up. No nausea associated with it. Unsure if it is related to his TAJ, hypersensitive gag reflex or if there is an enlarged tonsil/mass hitting the gag reflex Refer to ENT and GI I do believe he has GERD THESIOLOGIST AND CRITICAL CARE * Assessment & Plan Note - Nguyen Coronado NP - 10/20/2018 10:23 PM ANESTHESIOLOGIST AND CRITICAL CARE Associated Problem(s): Obstructive sleep apnea syndrome Hx of TAJ Last sleep study about 9 years ago Wakes up tired, fatigue, unrefreshed, still problems with sleep and snoring Needs updated sleep study TAJ may be increasing his symptoms of RLS at night Refer to Dr. Kramer THESIOLOGIST AND CRITICAL CARE * Assessment & Plan Note - Nguyen Coronado NP - 10/20/2018 10:21 PM ANESTHESIOLOGIST AND CRITICAL CARE Associated Problem(s): Hyperlipidemia Lipid abnormalities are unchanged. Nutritional counseling was provided. Lipids will be reassessed in 3 months. Continue with pravastatin Recheck Lipids in 6 months THESIOLOGIST AND CRITICAL CARE * Assessment & Plan Note - Nguyen Coronado NP - 10/20/2018 5:12 PM ANESTHESIOLOGIST AND CRITICAL CARE Associated Problem(s): Essential hypertension Hypertension is worsening. Uncontrolled Pt. Has not [...] high blood pressure, even if you're taking bloodpressure medication. Here's what you can do: Eat healthy foods. Eat a healthy diet. Try the Dietary Approaches to Stop Hypertension (DASH) diet,which emphasizes fruits, vegetables, whole grains, poultry, fish [...] office for blood pressure greater than 130/80 THESIOLOGIST AND CRITICAL CARE THESIOLOGIST AND CRITICAL CARE * Addendum Note - Eriberto Panda - 10/20/2018 3:45 PM CSTAddended by: ERIBERTO PANDA on: 10/21/2018 03:58 PM Modules accepted: Orders THESIOLOGIST AND CRITICAL CARE documented in this encounter Plan of Treatment Scheduled Referrals Name Type Priority Associated Diagnoses Order Schedule Ambulatory referral to Neurology Outpatient Referral Routine Obstructive sleep apnea syndrome Primary insomnia Ordered: 10/20/2018 Ambulatory referral to Gastroenterology Outpatient Referral Routine Non-intractable cyclical vomiting without nausea Screening for colon cancer Abnormal gag reflex Ordered: 10/20/2018 Ambulatory referral to ENT Outpatient Referral Routine Abnormal gag reflex Ordered: 10/20/2018 documented as of this encounter Results * PSA screen (10/21/2018 3:59 PM ANESTHESIOLOGIST AND CRITICAL CARE) PSA-Total 3.20 <=3.90 ng/mL [facility] ([place]) Comment: Interpretive Data ?AGE ? SEX ?REFERENCE INTERVAL 0 minutes-150 years ?Female ?None 0 minutes-49 years ? Male ?None ? 50-59 years ? Male ?0-3.90 ? 60-69 years ? Male ?0-5.40 ? 70-79 years ? Male ?0-6.20 ? 80-150 years ?Male ?0-6.20 Current interpretive data last revised 2018. Testing performed by: [facility], [address] [place] [address], [place]., [address] Blood specimen (specimen) 10/21/2018 3:59 PM ANESTHESIOLOGIST AND CRITICAL CARE 10/22/2018 9:28 AM ANESTHESIOLOGIST AND CRITICAL CARE Narrative [facility] ([facility]) - 10/22/2018 10:46 AM ANESTHESIOLOGIST AND CRITICAL CARE us Nguyen Coronado CREATIVE SPECIALIST LAB BLOOD ORDERABLES Final Result Performing Organization Address [facility] Co de Phone Number [facility] ([place]) 1 [facility] [place] [employer] [place] [address] * (ABNORMAL) Ferritin (10/21/2018 3:59 PM ANESTHESIOLOGIST AND CRITICAL CARE) Ferritin 509(H) 30 - 400 ng/mL [facility] ([place]) Blood specimen (specimen) 10/21/2018 3:59 PM ANESTHESIOLOGIST AND CRITICAL CARE 10/21/2018 4:50 PM ANESTHESIOLOGIST AND CRITICAL CARE Narrative [facility] ([place]) - 10/21/2018 5:21 PM ANESTHESIOLOGIST AND CRITICAL CARE us Nguyen Coronado CREATIVE SPECIALIST LAB BLOOD ORDERABLES Final Result Performing Organization Address [facility] Co de Phone Number [facility] ([place]) 1 [facility] [place] [address] * TSH reflex to free T4 (10/21/2018 3:59 PM ANESTHESIOLOGIST AND CRITICAL CARE) TSH 1.62 0.30 - 4.20 mcIUnit/mL [facility] ([place]) Blood specimen (specimen) 10/21/2018 3:59 PM ANESTHESIOLOGIST AND CRITICAL CARE 10/21/2018 4:50 PM ANESTHESIOLOGIST AND CRITICAL CARE Narrative [facility] ([place]) - 10/21/2018 5:21 PM ANESTHESIOLOGIST AND CRITICAL CARE us Nguyen Coronado CREATIVE SPECIALIST LAB BLOOD ORDERABLES Final Result Performing Organization Address City/[facility]/ZIP Co de Phone Number [facility] SHA[facility]) 1 [facility] [place] [employer] [place] [address] * Magnesium (10/21/2018 3:59 PM ANESTHESIOLOGIST AND CRITICAL CARE) Magnesium 2.2 1.6 - 2.4 mg/dL [facility] ([place]) Blood specimen (specimen) 10/21/2018 3:59 PM ANESTHESIOLOGIST AND CRITICAL CARE 10/21/2018 4:50 PM ANESTHESIOLOGIST AND CRITICAL CARE Narrative [facility] ([place]) - 10/21/2018 5:21 PM ANESTHESIOLOGIST AND CRITICAL CARE us Nguyen Coronado NP LAB BLOOD ORDERABLES Final Result [facility] R[facility]) 1 [facility] [place] [employer] [place] [address] documented in this encounter Visit Diagnoses Diagnosis Encounter to establish care- Primary Essential hypertension Unspecified essential hypertension Restless legs syndrome Restless legs syndrome (RLS) Obstructive sleep apnea syndrome Obstructive sleep apnea (adult) (pediatric) Primary insomnia Persistent disorder of initiating or maintaining sleep Screening for prostate cancer Special screening for malignant neoplasm of prostate Non-intractable cyclical vomiting 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 Reorder 08/25/2018 10/20/2018 metoprolol (LOPRESSOR) 25 mg tablet Take 1 tablet (25 mg total) by mouth 2 (two) times a day. Reorder 08/25/2018 10/20/2018 buPROPion XL (WELLBUTRIN XL) 150 mg 24 hr tablet Take 150 mg by mouth daily. Reorder 10/20/2018 aspirin 81 mg chewable tabletIndications:preven tion of thrombosis,dydlipidemia Take 1 tablet (81 mg total) by mouth daily. Reorder 08/26/2018 10/20/2018 cholecalciferol (VITAMIN D-3) 1,000 unit Take 1,000 Units by mouth daily. Reorder 10/20/2018 metoprolol (LOPRESSOR) 25 mg tablet Take 1 tablet (25 mg total) by mouth 2 (two) times a day. Formulary change 10/20/2018 10/20/2018 pramipexole (MIRAPEX) 1 mg tablet Take 0.5 mg by mouth nightly. Dose adjustment 07/01/2018 10/20/2018 documented as of this encounter Care Teams Statistician Mathematical Relationship Specialty Start Date End Date Kiarra Zhong DO PCP - General Family Medicine 10/20/18 11/25/18 documented as of this encounter
--- OUTSIDE RECORDS SUMMARY | 2024-09-17 12:59 | XMS_ITS | Encounter Summary ---
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 Gender Identity Not on file Sexual Orientation Not on file documented as of this encounter Ordered Prescriptions Prescription Sig Dispense Quantity Refills Last Filled Start Date End Date pravastatin (PRAVACHOL) 40 mg tabletIndications: hyperlipidemia Take 1 tablet (40 mg total) by mouth daily 30 tablet 11/26/2018 03/30/2019 documented in this encounter Plan of Treatment Not on file documented as of this encounter Visit Diagnoses Diagnosis Hyperlipidemia, unspecified hyperlipidemia type- Primary documented in this encounter Discontinued Medications Medication Sig Discontinue Reason Start Date End Da te pravastatin (PRAVACHOL) 40 mg tabletIndications:hyperl ipidemia Take 1 tablet (40 mg total) by mouth daily. Reorder 10/20/2018 11/26/2018 documented as of this encounter Care Teams Life Skills Educator Relationship Specialty Start Date End Date Marcela Euceda NP [address] [place] [address] PCP - General Family Medicine 11/26/18 09/29/19 documented as of this encounter
--- OUTSIDE RECORDS SUMMARY | 2024-09-17 12:59 | XMS_ITS | Encounter Summary ---
Author Organization [facility] Healthcare Address [address] [place] [address] Care Team Providers Care Contracting Executive Name Role Phone Marcela Euceda NP Primary Care Provider [phone] Reason for Referral * Diagnostic Imaging (Routine) - Closed Specialty Diagnoses / Procedures Referred By Zaida camacho Referred To Contact Radiology Diagnoses Right flank pain Procedures CT KUB Stone WO Contrast Marcela Euceda NP Phone: tel: fax: [address] [phone] Referral ID Status Reason Start Date Expiration Date Visits Re quested Visits Authorized [id number] Closed 12/18/2018 06/28/2020 1 1 Reason for Visit * Diagnostic Imaging (Routine) - Closed Specialty Diagnoses / Procedures Referred By Zaida camacho Referred To Contact Radiology Diagnoses Right flank pain Procedures CT KUB Stone WO Contrast Marcela Euceda NP Phone: tel: fax: [address] [phone] Referral ID Status Reason Start Date Expiration Date Visits Re quested Visits Authorized [id number] Closed 12/18/2018 06/28/2020 1 1 Encounter Details Date Type Department Care Team (Latest Contact Info) Description 01/02/2019 8:10 AM CDT - 01/02/2019 11:59 PM CDT Hospital Encounter [facility] [address] [place] [id number] Marcela Euceda NP [address] [facility] [address] [place] [address] Right flank pain Discharge Disposition: Discharge to home or [...] on file 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 90 tablet 2 10/20/2018 9 cholecalciferol (VITAMIN D-3) 1,000 unit Take 1 tablet/capsul e (1,000 Units total) by mouth daily. 90 tablet/capsule 1 10/20/2018 1 lisinopril (PRINIVIL,ZESTRIL) 5 mg tabletIndications: Essential hypertension Take 1 tablet (5 mg total) by mouth daily. 90 tablet 2 10/20/2018 9 methocarbamol (ROBAXIN) 500 mg tablet 12/16/2018 9 metoprolol XL (TOPROL-XL) 25 mg 24 hr tabletIndications: Essential hypertension Take 1 tablet (25 mg total) by mouth daily. 90 tablet 3 10/20/2018 9 pramipexole (MIRAPEX) 1.5 mg tabletIndications: Restless legs syndrome Take 1 tablet (1.5 mg total) by mouth 3 (three) times a day. 90 tablet 11 10/20/2018 9 pravastatin (PRAVACHOL) 40 mg tablet TAKE 1 TABLET BY MOUTH ONCE DAILY 30 tablet 11/28/2018 9 pravastatin (PRAVACHOL) 40 mg tabletIndications: hyperlipidemia Take 1 tablet (40 mg total) by mouth daily 30 tablet 11/26/2018 9 raNITIdine (ZANTAC) 300 mg tabletIndications: Laryngopharyngeal [...] Name Priority Date/Time Associated Diagnosis Comments CT KUB STONE WO CONTRAST Schedule MASON, Read Routine (Patient lives out of area) 01/02/2019 8:33 AM CDT Right flank pain documented in this encounter Results * CT KUB Stone WO Contrast (01/02/2019 8:33 AM CDT) Anatomical Region Laterality Modality Abdomen N/A Computed Tomogra phy 01/02/2019 8:42 AM CDT Impressions 01/02/2019 8:46 AM CDT 1. ??NO EVIDENCE OF URINARY TRACT CALCULUS OR OBSTRUCTION. 2. ??RETROPERITONEAL LYMPHADENOPATHY DISCUSSED ABOVE. ??THIS IS INDETERMINATE BUT SUSPICIOUS FOR MALIGNANCY. 3. ??APPENDICOLITH. 4. ??LUMBAR SPINE DEGENERATIVE CHANGE WITH PROBABLE CANAL STENOSIS AT L1-L2 AND L3-L4. Electronically signed by: Emmanuel Gonsalves M.D. Narrative 01/02/2019 8:[address] KUB STONE WO CONTRAST HISTORY: right flank pain x one month, hematuria,. TECHNIQUE: Helically acquired axial images were obtained from the ambar hepatis to the pubic symphysis. CONTRAST: None. COMPARISON: None available. FINDINGS: There is no evidence of renal or ureteral calculus or urinary tract dilatation. ??The urinary bladder appears normal. ??Moderate prostatic hypertrophy is present. The unenhanced solid parenchymal organs are unremarkable. The small and large bowel are nondilated. ??An appendicolith is present within the distal tip of an otherwise normal appearing appendix. ??There is no evidence of ascites. ??Retroperitoneal lymphadenopathy is present with the retroaortic and left para-aortic lymph node mass measuring 5.2 x 2.4 cm. ??This is indeterminate. ??No additional masses are identified. The pelvic contents are normal. ??Degenerative change of the spine is present with posterior endplate spurring suggesting canal stenosis at L1-L2 and L3-L4. Procedure Note Emmanuel Gonsalves MD - 01/02/2019 CT KUB STONE WO CONTRAST HISTORY: right flank pain x one month, hematuria,. TECHNIQUE: Helically acquired axial images were obtained from the ambar hepatis to the pubic symphysis. CONTRAST: None. COMPARISON: None available. FINDINGS: There is no evidence of renal [...] PROBABLE CANAL STENOSIS AT L1-L2 AND L3-L4. Electronically signed by: Emmanuel Gonsalves M.D. Marcela Euceda NP IMG CT PROCEDURES Final Result documented in this encounter Visit Diagnoses Diagnosis Right flank pain Abdominal pain, unspecified site documented in this encounter Care Teams Contracting Executive Relationship Specialty Start Date End Date Marcela Euceda NP [address] [place] [address] [address] [place] [address] PCP - General Family Medicine 11/26/18 09/29/19 documented as of this encounter
--- OUTSIDE RECORDS SUMMARY | 2024-09-17 12:59 | XMS_ITS | Encounter Summary ---
Author Organization [facility] Healthcare Address [address] [place] [address] Care Team Providers Care Rounding Machine Operator Name Role Phone Marcela Euceda NP Primary Care Provider [phone] Encounter Details Date Type Department Care Team (Late st Contact Info) Description 12/25/2018 4:00 PM CDT [facility] [address] [place], [place] Treva Stanley MD [address] [facility] [address] [place] [address] Marcela Euceda NP [address] [place] [address] Fatigue, unspecified type; Erectile dysfunction, unspecified erectile dysfunction type Discharge Disposition: Discharge to home or [...] on file 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 Gender Identity Not on file Sexual Orientation Not on file documented as of this encounter Discharge Disposition Disposition Code Departure Means Destination Discharge to home or self care documented in this encounter Plan of Treatment Not on file documented as of this encounter Procedures Procedure Name Priority Date/Time Associated Diagnosis Comments EGFR Routine 12/25/2018 4:02 PM CDT Fatigue, unspecified type CBC WITH AUTO DIFFERENTIAL Routine 12/25/2018 4:02 PM CDT Fatigue, unspecified type VITAMIN D 25 HYDROXY Routine 12/25/2018 4:02 PM CDT Fatigue, unspecified type TOTAL TESTOSTERONE Routine 12/25/2018 4: 02 PM CDT Erectile dysfunction, unspecified erectile dysfunction type Fatigue, unspecified type COMPREHENSIVE METABOLIC PANEL Routine 12/25/2018 4:02 PM CDT Fatigue, unspecified type documented in this encounter Results * eGFR (12/25/2018 4:02 PM CDT) eGFR 102 mL/min/1.7 3 m2 [facility] ([place]HEED) Comment: Interpretive Data Reference Interval Normal ?>/= 90 mL/min/1.73m2 Mildly decreased* ? 60 - 89 mL/min/1.73m2 Mildly to moderately decreased ?45 - 59 mL/min/1.73m2 Moderately to severely decreased ??30 - 44 mL/min/1.73m2 Severely decreased ?15 - 29 mL/min/1.73m2 Kidney Failure ?< 15 ??mL/min/1.73m2 *Relative to young adult level If -[place] multiply value by 1.16. Estimated glomerular filtration [...] was last reviewed 2016. Blood specimen (specimen) 12/25/2018 4:02 PM CDT 12/25/2018 5:03 PM CDT Narrative [facility] ([place]) - 12/25/2018 5:35 PM CDT Marcela Euceda BUSINESS OBJECTS CONSULTANT LAB BLOOD ORDERABLES Final Resu lt [facility] ([place]) 1 [facility] [place] [employer] [place] [address] * Testosterone (12/25/2018 4:02 PM CDT) Testosterone 574 193 - 740 ng/dL [facility] ([facility]) Comment:Testing performed by : [facility], [address] [place] [address], [address] Blood specimen (specimen) 12/25/2018 4:02 PM CDT 12/26/2018 10:10 AM CDT Narrative [facility] ([place]) - 12/26/2018 11:02 AM CDT Marcela Euceda BUSINESS OBJECTS CONSULTANT LAB BLOOD ORDERABLES Final Resu lt Performing Organization Address [facility]/ZIP Co de Phone Number [facility] ([place]) 1 [facility] [place] [employer] [place] [address] * Comprehensive metabolic panel (12/25/2018 4:02 PM CDT) Sodium 138 135 - 145 mmol/L [facility] ([facility]) Potassium, pl 4.1 3.3 - 4.9 mmol/L [facility] Chloride 105 97 - 110 mmol/L [facility]) CO2 23 22 - 32 mmol/L [facility]) Anion gap 10 2 - 15 mmol/L [facility] ([facility] BUN 11 8 - 25 mg/dL [facility] ([facility]) Creatinine 0.84 0.80 - 1.30 mg/dL [facility] ([facility] Glucose 93 70 - 199 mg/dL [facility] ([place]) Comment: Interpretive Data Fasting glucose [...] interpretive data was last revised 2017. Calcium 9.2 8.5 - 10.3 mg/dL [facility] ([facility]) Bilirubin, total 0.5 0.1 - 1.2 mg/dL [facility] ([place]) Protein, pl 6.9 6.5 - 8.5 g/dL [facility] ([place]) Albumin 4.6 3.5 - 5.0 g/dL [facility] ([facility]) Alk phos 96 40 - 130 Units/L [facility] ([place]) ALT 55 7 - 55 Units/L [facility] ([facility]) AST 31 10 - 50 Units/L [facility] ([facility]) Blood specimen (specimen) 12/25/2018 4:02 PM CDT 12/25/2018 5:03 PM CDT Narrative [facility] ([facility]) - 12/25/2018 5:35 PM CDT us Marcela Euceda NP LAB BLOOD ORDERABLES Final Resu lt [facility] ([place]) 1 [facility] [place] [address] * CBC with auto differential (12/25/2018 4:02 PM CDT) WBC 4.8 3.8 - 9.9 K/cumm [facility] ([facility]) Hgb 14.4 13.0 - 17.5 g/dL [facility] ([facility]) Hct 40.4 38.9 - 50.3 % [facility] ([place]) Plt 221 150 - 400 K/cumm [facility] ([place]) MPV 10.2 9.1 - 12.3 fL [facility] ([place]) RBC 4.44 4.30 - 5.80 M/cumm [facility] ([place]) MCV 91.0 81.3 - 96.4 fL [facility] ([place]) MCH 32.4 27.1 - 33.3 pg [facility] ([place]) MCHC 35.6 32.3 - 35.7 g/dL [facility] ([place]) RDW CV 12.1 11.1 - 14.9 % [facility] ([place]) RDW SD 40.0 35.7 - 48.1 fL [facility] ([facility]) NRBC abs 0.00 0.00 - 0.01 K/cumm [facility] ([facility]) Blood specimen (specimen) 12/25/2018 4:02 PM CDT 12/25/2018 5:03 PM CDT Narrative [facility] ([facility]) - 12/25/2018 5:05 PM CDT us Marcela Euceda NP LAB BLOOD ORDERABLES Final Resu lt Performing Organization Address City/[facility]/ZIP Co de Phone Number [facility] ([place]) 1 [facility] [place] [address] * Vitamin D 25 hydroxy (12/25/2018 4:02 PM CDT) Vitamin D 25-OH 30 30 - 80 ng/mL [facility] ([facility]) Blood specimen (specimen) 12/25/2018 4:02 PM CDT 12/25/2018 5:03 PM CDT Narrative [facility] ([facility]) - 12/25/2018 5:35 PM CDT us Marcela Euceda NP LAB BLOOD ORDERABLES Final Resu lt [facility] ([place]) 1 [facility] [place] [address] documented in this encounter Visit Diagnoses Diagnosis Fatigue, unspecified type Erectile dysfunction, unspecified erectile dysfunction type documented in this encounter Care Teams Rounding Machine Operator Relationship Specialty Start Date End Date Marcela Euceda NP [address] [place] [address] [address] [place] [address] PCP - General Family Medicine 11/26/18 09/29/19 documented as of this encounter
--- OUTSIDE RECORDS SUMMARY | 2024-09-17 12:59 | XMS_ITS | Encounter Summary ---
Author Organization [facility] Healthcare Address [address] [place] [address] Care Team Providers Care Slip Mixer Name Role Phone Marcela Euceda NP Primary Care Provider [phone] Reason for Referral * Diagnostic Imaging (Routine) - Closed Specialty Diagnoses / Procedures Referred By Zaida camacho Referred To Contact Diagnoses Diffuse abdominal pain Procedures US Abdomen Complete Marcela Euceda NP Phone: tel: fax: [address] [phone] Referral ID Status Reason Start Date Expiration Date Visits Re quested Visits Authorized [id number] Closed 12/18/2018 06/28/2020 1 1 Reason for Visit * Diagnostic Imaging (Routine) - Closed Specialty Diagnoses / Procedures Referred By Zaida camacho Referred To Contact Diagnoses Diffuse abdominal pain Procedures US Abdomen Complete Marcela Euceda NP Phone: tel: fax: [address] [phone] Referral ID Status Reason Start Date Expiration Date Visits Re quested Visits Authorized [id number] Closed 12/18/2018 06/28/2020 1 1 Encounter Details Date Type Department Care Team (Late st Contact Info) Description 01/02/2019 7:45 AM CDT - 01/02/2019 8:09 AM CDT Hospital Encounter [facility] [address] [place] [address] Treva Stanley MD [address] [place] [address] Marcela Euceda NP [address] [place] [address] Diffuse abdominal pain Discharge Disposition: Discharge to home [...] on file 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 90 tablet 2 10/20/2018 01/21/2019 cholecalciferol (VITAMIN D-3) 1,000 unit Take 1 tablet/capsu le (1,000 Units total) by mouth daily. 90 tablet/capsule 1 10/20/2018 02/08/2021 lisinopril (PRINIVIL,ZESTRIL) 5 mg tabletIndications: Essential hypertension Take 1 tablet (5 mg total) by mouth daily. 90 tablet 2 10/20/2018 01/21/2019 methocarbamol (ROBAXIN) 500 mg tablet 12/16/2018 01/19/2019 metoprolol XL (TOPROL-XL) 25 mg 24 hr tabletIndications: Essential hypertension Take 1 tablet (25 mg total) by mouth daily. 90 tablet 3 10/20/2018 01/21/2019 pramipexole (MIRAPEX) 1.5 mg tabletIndications: Restless legs syndrome Take 1 tablet (1.5 mg total) by mouth 3 (three) times a day. 90 tablet 11 10/20/2018 03/30/2019 pravastatin (PRAVACHOL) 40 mg tablet TAKE 1 TABLET BY MOUTH ONCE DAILY 30 tablet 11/28/2018 01/05/2019 pravastatin (PRAVACHOL) 40 mg tabletIndications: hyperlipidemia Take 1 tablet (40 mg total) by mouth daily 30 tablet 11/26/2018 03/30/2019 documented as of this encounter Discharge Disposition Disposition Code Departure Means Destination Discharge to home or self care documented in this encounter Plan of Treatment Not on file documented as of this encounter Procedures Procedure Name Priority Date/Time Associated Diagnosis Comments US ABDOMEN COMPLETE Schedule Routine, Read Routine (OP Routine) 01/02/2019 8:57 AM CDT Diffuse abdominal pain documented in this encounter Results * US Abdomen Complete (01/02/2019 8:57 AM CDT) Anatomical Region Laterality Modality Abdomen N/A Ultrasound 01/02/2019 9:08 AM CDT Impressions 01/02/2019 9:09 AM CDT 1. ??MILD FATTY INFILTRATION OF THE LIVER. 2. ??OTHERWISE NORMAL ABDOMINAL ULTRASOUND. Electronically signed by: Emmanuel Gonsalves M.D. Narrative 01/02/2019 9:09 AM CDT US ABDOMEN COMPLETE HISTORY: Diffuse abdominal pain. ??Epigastric abdominal pain. ??Nausea and vomiting. COMPARISON: None available. FINDINGS: The liver is mildly echogenic, consistent with fatty infiltration. ??No focal lesions are present. ??The gallbladder is normal. ??The extrahepatic bile duct measures 4.8 mm. The visualized portions of the body and head of the pancreas are normal. ??The spleen, aorta and inferior vena cava are normal. ??There is no evidence of ascites. The right and left kidneys measure 11.4 and 11.8 cm in long axis, respectively. ??There is normal cortical echogenicity with no evidence of mass or hydronephrosis. Procedure Note Emmanuel Gonsalves MD - 01/02/2019 US ABDOMEN COMPLETE HISTORY: Diffuse abdominal pain. Epigastric abdominal pain. Nausea and vomiting. COMPARISON: None available. FINDINGS: The liver is [...] THE LIVER. 2. OTHERWISE NORMAL ABDOMINAL ULTRASOUND. Electronically signed by: Emmanuel Gonsalves M.D. us Marcela Euceda NP IMG US PROCEDURES Final Result documented in this encounter Visit Diagnoses Diagnosis Diffuse abdominal pain documented in this encounter Care Teams Slip Mixer Relationship Specialty Start Date End Date Marcela Euceda NP [address] [place] [address] [address] [place] [address] PCP - General Family Medicine 11/26/18 09/29/19 documented as of this encounter
--- OUTSIDE RECORDS SUMMARY | 2024-09-17 12:59 | XMS_ITS | Encounter Summary ---
Author Organization [facility] Address [address] [place] [address] Care Team Providers Care Stave Hewer Name Role Phone Marcela Euceda PUBLIC ADDRESS TECHNICIAN Primary Care Provider [phone] Encounter Details Date Type Department Care Team (Late st Contact Info) Description 01/16/2019 3:45 PM CDT Office Visit [facility] [address] [place] [address] Marcela Euceda, ALAN [address] [facility] [address] [place] [address] scan (Primary Dx) Social History Tobacco Use Types [...] on file 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 Gender Identity Not on file Sexual Orientation Not on file documented as of this encounter Last Filed Vital Signs Vital Sign Reading Time Taken Comments Blood Pressure 117/83 01/16/2019 3:57 PM CDT Pulse 83 01/16/2019 3:57 PM CDT Temperature 36.7 ??C (98 ??F) 01/16/2019 3:57 PM CDT Respiratory Rate 20 01/16/2019 3:57 PM CDT Oxygen Saturation 98% 01/16/2019 3:57 PM CDT Inhaled Oxygen Concentration - - Weight 122.6 kg (270 lb 3.2 oz) 01/16/2019 3:57 PM CDT Height 188 cm (6' 2 ) 01/16/2019 3:57 PM CDT Body Mass Index 34.69 01/16/2019 3:57 PM CDT documented in this encounter Progress Notes * Marcela Euceda NP - 01/16/2019 3:45 PM CDT Subjective/Objective Patient ID: Jaden De La Torre is a 48 y.o. male. Chief Complaint No chief complaint on file. Patient presents with his today to discuss the Ct results. This was reviewed by ALISHA Orozco last week and she has referred him to a thoracic specialist at [facility] [place] Mr. De La Torre states he feels well today Review of Systems Constitutional: Negative. Respiratory: Negative. Cardiovascular: Negative. Genitourinary: Negative. Physical Exam Constitutional: He appears well-developed and well-nourished. No distress. Cardiovascular: Normal rate, regular rhythm, normal heart sounds and intact distal pulses. Pulmonary/Chest: Effort normal. Abdominal: Soft. Bowel sounds are normal. Skin: He is not diaphoretic. Nursing note and vitals reviewed. Assessment/Plan Diagnoses and all orders for this visit: Abnormal abdominal CT scan (R93.5) (Primary) Follow up schedule with throracic surgeon per ALISHA Orozco documented in this encounter Plan of Treatment Not on file documented as of this encounter Visit Diagnoses Diagnosis Abnormal abdominal CT scan- Primary Nonspecific (abnormal) findings on radiological and other examination of abdominal area, including retroperitoneum documented in this encounter Care Teams Stave Hewer Relationship Specialty Start Date End Date Marcela Euceda NP [address] [place] [id number] PCP - General Family Medicine 11/26/18 09/29/19 documented as of this encounter
--- OUTSIDE RECORDS SUMMARY | 2024-09-17 12:59 | XMS_ITS | Encounter Summary ---
Author Organization [facility] Address [address] [place] [address] Care Team Providers Care Director Perioperative Name Role Phone Marcela Euceda CODING AND REIMBURSEMENT SPECIALIST Primary Care Provider [phone] Encounter Details Date Type Department Care Team (Late st Contact Info) Description 01/05/2019 Telephone [facility] of [address] [place] [address] Marcela Euceda, ALAN [address] [facility] [address] [place] [address] Social History Tobacco Use Types Packs/Day Years Used Date Smoking Tobacco: Never Smokeless Tobacco: Former Chew Quit: 08/2018 Comments:chews, not interest ed in counseling Alcohol Use Standard Drinks/Week Comments Yes 0 (1 standard drink = 0.6 oz pur e alcohol) can of beer a month Sex and Gender Information Value Date Recorded Sex Assigned at Not on file 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 Looks as if patient had blood drawn but there was no order for a lipid panel. I will go ahead and send in 90 day supply to mail order pharmacy, but we won't be able to adjust dosage without new lab order. He can discuss with Marcela when he comes in for his follow up. Thanks. * Telephone Encounter - Cortney Long MA - 01/05/2019 4:07 PM CDT PTs called in regards to PT needing a refill of Pravastatin sent to [facility]. DR Lim can you address for me PT next apt 01/16/2019 last labs 12/25/2018 documented in this encounter Plan of Treatment Not on file documented as of this encounter Visit Diagnoses Not on filedocumented in this encounter Care Teams Director Perioperative Relationship Specialty Start Date End Date Marcela Euceda NP [address] [place] [address] PCP - General Family Medicine 11/26/18 09/29/19 documented as of this encounter
--- OUTSIDE RECORDS SUMMARY | 2024-09-17 12:59 | XMS_ITS | Encounter Summary ---
Author Organization [facility] Address [address] [place] [address] Care Team Providers Care Cementer Oil Well Name Role Phone Kiarra Zhong Primary Care Provider [phone] Encounter Details Date Type Department Care Team (Late st Contact Info) Description 10/21/2018 4:00 PM BRICK CHIMNEY BUILDER [address] Brandon Aguayo MD [address] [place] [address] Nguyen Coronado CONTINUOUS IMPROVEMENT CONSULTANT [address] [place] [address] Restless legs syndrome; Screening for prostate cancer Discharge Disposition: Discharge to home or self [...] on file 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 Gender Identity Not on file Sexual Orientation Not on file documented as of this encounter Discharge Disposition Disposition Code Departure Means Destination Discharge to home or self care documented in this encounter Plan of Treatment Not on file documented as of this encounter Procedures Procedure Name Priority Date/Time Associated Diagnosis Comments THYROID FUNCTION CASCADE Routine 10/21/2018 3:59 PM BRICK CHIMNEY BUILDER Restless legs syndrome PSA SCREEN Routine 10/21/2018 3:59 PM BRICK CHIMNEY BUILDER Screening for prostate cancer MAGNESIUM Routine 10/21/2018 3:59 PM BRICK CHIMNEY BUILDER Restless legs syndrome FERRITIN Routine 10/21/2018 3:59 PM BRICK CHIMNEY BUILDER Restless legs syndrome documented in this encounter Results * PSA screen (10/21/2018 3:59 PM BRICK CHIMNEY BUILDER) PSA-Total 3.20 <=3.90 ng/mL [facility] ([facility]) Comment: Interpretive Data ?AGE ? SEX ?REFERENCE INTERVAL 0 minutes-150 years ?Female ?None 0 minutes-49 years ? Male ?None ? 50-59 years ? Male ?0-3.90 ? 60-69 years ? Male ?0-5.40 ? 70-79 years ? Male ?0-6.20 ? 80-150 years ?Male ?0-6.20 Current interpretive data last revised 2018. Testing performed by: [facility], [address] [place] [address], [place]., [address] Blood specimen (specimen) 10/21/2018 3:59 PM BRICK CHIMNEY BUILDER 10/22/2018 9:28 AM BRICK CHIMNEY BUILDER Narrative [facility] ([facility]) - 10/22/2018 10:46 AM BRICK CHIMNEY BUILDER us Nguyen Coronado NP LAB BLOOD ORDERABLES Final Result [facility] ([facility]) [address] [facility] Department [place] [address] * (ABNORMAL) Ferritin (10/21/2018 3:59 PM BRICK CHIMNEY BUILDER) Ferritin 509(H) 30 - 400 ng/mL [facility] ([facility]) Blood specimen (specimen) 10/21/2018 3:59 PM BRICK CHIMNEY BUILDER 10/21/2018 4:50 PM BRICK CHIMNEY BUILDER Narrative [facility] ([facility]) - 10/21/2018 5:21 PM BRICK CHIMNEY BUILDER us Nguyen Coronado CONTINUOUS IMPROVEMENT CONSULTANT LAB BLOOD ORDERABLES Final Result [facility] ([facility]) 1 [facility] [place] [address] * TSH reflex to free T4 (10/21/2018 3:59 PM BRICK CHIMNEY BUILDER) Pathologist [facility] TSH 1.62 0.30 - 4.20 mcIUnit/mL [facility] ([facility]) Blood specimen (specimen) 10/21/2018 3:59 PM BRICK CHIMNEY BUILDER 10/21/2018 4:50 PM BRICK CHIMNEY BUILDER Narrative [facility] ([facility]) - 10/21/2018 5:21 PM BRICK CHIMNEY BUILDER us Nguyen Coronado CONTINUOUS IMPROVEMENT CONSULTANT LAB BLOOD ORDERABLES Final Result Performing Organization Address City/[facility]/ZIP Co de Phone Number [facility] ([facility]) 1 [facility] [place] [address] * Magnesium (10/21/2018 3:59 PM BRICK CHIMNEY BUILDER) Pathologist [facility] Magnesium 2.2 1.6 - 2.4 mg/dL [facility] ([facility]) Blood specimen (specimen) 10/21/2018 3:59 PM BRICK CHIMNEY BUILDER 10/21/2018 4:50 PM BRICK CHIMNEY BUILDER Narrative [facility] ([facility]) - 10/21/2018 5:21 PM BRICK CHIMNEY BUILDER us Nguyen Coronado CONTINUOUS IMPROVEMENT CONSULTANT LAB BLOOD ORDERABLES Final Result [facility] ([facility]) [address] [facility] [place] [address] documented in this encounter Visit Diagnoses Diagnosis Restless legs syndrome Restless legs syndrome (RLS) Screening for prostate cancer Special screening for malignant neoplasm of prostate documented in this encounter Care Teams [employer]er [employer] Relationship Specialty Start Date End Date Kiarra Zhong DO PCP - General Family Medicine 10/20/18 11/25/18 documented as of this encounter
--- OUTSIDE RECORDS SUMMARY | 2024-09-17 12:59 | XMS_ITS | Encounter Summary ---
Author Organization [facility] Address [address] [place] [address] Care Team Providers Care Software Design Engineer Name Role Phone Kirara Zhong DO Primary Care Provider [phone] Reason for Visit * Reason Comments Other Gag reflux overactiv e Encounter Details Date Type Department Care Team (Latest Contact Info) Description 10/29/2018 3:40 PM PUTTY PATCHER Office Visit [facility] - [facility] [address] [place] [id number] Arcelia Head [address] [place] [address] Laryngopharyngeal reflux (LPR) (Primary Dx); Abnormal gag reflex Social History Tobacco Use Types Packs/Day Years Used Date Smoking Tobacco: Never Smokeless Tobacco: Former Chew Quit: 08/2018 Comments:chews, not interest ed in counseling Alcohol Use Standard Drinks/Week Comments Yes 0 (1 standard drink = 0.6 oz pur e alcohol) can of beer a month Sex and Gender Information Value Date Recorded Sex Assigned at Not on file Legal Sex Male 8:02 AM 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 Gender Identity Not on file Sexual Orientation Not on file documented as of this encounter Last Filed Vital Signs Vital Sign Reading Time Taken Comments Blood Pressure 132/90 10/29/2018 3:34 PM PUTTY PATCHER Pulse 70 10/29/2018 3:34 PM PUTTY PATCHER Temperature 37.1 ??C (98.7 ??F) 10/29/2018 3:34 PM CS T Respiratory Rate - - Oxygen Saturation - - Inhaled Oxygen Concentration - - Weight 123.7 kg (272 lb 9.6 oz) 10/29/2018 3:34 PM PUTTY PATCHER Height 188 cm (6' 2 ) 10/29/2018 3:34 PM PUTTY PATCHER Body Mass Index 35 10/29/2018 3:34 PM PUTTY PATCHER documented in this encounter Patient Instructions * Patient Instructions* Arcelia Head, DO - 10/29/2018 3:40 PM PUTTY PATCHER Start Zantac 300 mg at bedtime Increase caffeine free and soda free fluid daily What is acid reflux? -- Acid reflux is when the acid that is normally in your stomach backs up intothe esophagus, the tube that carries food from your mouth to your stomach. Another term for acid reflux is laryngopharyngeal reflux (LPR) or gastroesophageal reflux (GERD). What are the symptoms of acid reflux? -- The symptoms include: ??? Burning in the chest, known as heartburn ??? Burning in the throat or an acid taste in the throat ??? Stomach or chest pain ??? Trouble swallowing ??? Having a raspy voice or a sore throat ??? Unexplained cough ??? Frequent throat clearing ??? Feeling that there is something caught in your throat Is there anything I can do on my own to improve my symptoms? -- Yes. You might feel better if you: ?Lose weight (if you are overweight) ?Raise the head of your bed by 4-6 inches (for example, by putting blocks of wood under the head ofthe of the bed) ?Avoid foods that make your symptoms worse (examples include coffee, chocolate, alcohol, peppermint, tomatoes, onions and fatty or spicy foods) ?Cut down on the amount of alcohol you drink ?Stop smoking, if you smoke ?Eat a bunch of small meals each day, rather than 2 or 3 big meals ?Avoid lying down for 4 hours after a meal What treatments can help with my acid reflux? -- There are a few main types of medicines that can help with the symptoms of acid reflux: antacids, surface acting agents, histamine blockers, and proton pump inhibitors. All of these medicines work by reducing or blocking stomach acid. But they each do that in a different way. Antacids and surface acting agents can relieve mild symptoms, but they work only for a short time. Histamine blockers are stronger and last longer than antacids and surface acting agents. You can buy antacids and most histamine blockers without a prescription. Proton pump inhibitors are the most effective medicines in treating LPR. Some of these medicines are sold without a prescription. But there are other versions that your doctor can prescribe. Sometimes acid refluxmedicines are less expensive if you get them with a prescription. Other times nonprescription medicines are less expensive. If cost is a concern for you, ask your pharmacist how you might reduce the cost of your medicines. Information provided courtesy of: [employer]?? www.[employer]??2015 BinfireToDate?? Y PATCHER Y PATCHER Y PATCHER Y PATCHER documented in this encounter Ordered Prescriptions Prescription Sig Dispense Quantity Refills Last Filled Start Date End Date raNITIdine (ZANTAC) 300 mg tabletIndications: Laryngopharyngeal reflux (LPR),Abnormal gag reflex Take 1 tablet (300 mg total) by mouth nightly. 90 tablet 3 10/29/2018 01/02/2019 documented in this encounter Progress Notes * Arcelia Head DO - 10/29/2018 3:40 PM CST ENT Consult Reason for Consult: hyperactive gag reflux Requesting Provider: Kiarra Zhong DO SUBJECTIVE: Patient is a 48 y.o. male with chief complaint of hyperactive gag reflex. HPI: Jaden reported location of complaint was throat. This compliant quality was reported as intermittent and has a severity of moderate. The duration of this complaint was the last one year. Onset of this problems was one year and was associated with weight gain 25 pounds in the last year,quit smokeless tobacco 2 months ago used for 30 years. Seen by PCP 10/20/18: hyperactive gag reflux, sent for sleep study as well. He reported spitting up mucus every morning, no improvement since stopping tobacco. Last year at the [place]: had throat stretched and vocal fold polyps removed. Past Medical History: Diagnosis Date ??? Anxiety disorder Anxiety ??? Depression Depression ??? HX OTHER MEDICAL Hemorrhoids ??? HX OTHER MEDICAL hypoglycemic ??? Hypertension Hypertension ??? Sleep apnea Patient Active Problem List Diagnosis ??? Restless legs syndrome ??? Obstructive sleep apnea syndrome ??? Insomnia ??? Hyperlipidemia ??? Essential hypertension ??? Palpitation ??? Encounter to establish care ??? Screening for prostate cancer ??? Non-intractable cyclical vomiting without nausea ??? Screening for colon cancer ??? Abnormal gag reflex ??? Laryngopharyngeal reflux (LPR) Past Surgical History: Procedure Laterality Date ??? CARPAL TUNNEL RELEASE Carpal tunnel release ??? OTHER SURGICAL HISTORY Hemorrhoids: Hemorrhoidectomy ??? SHOULDER SURGERY shoulder surgery Social History Substance Use Topics ??? Smoking status: Never Smoker ??? Smokeless tobacco: Former User Types: Chew Quit date: 08/2018 Comment: chews, not interested in counseling ??? Alcohol use Yes Comment: can of beer a month Family History Problem Relation Age of Onset ??? Throat cancer Father Cancer, throat; Current Outpatient Prescriptions on File Prior to Visit Medication Sig Dispense Refill ??? aspirin 81 mg chewable tablet Take 1 tablet (81 mg total) by mouth daily. 30 tablet 0 ??? buPROPion XL (WELLBUTRIN XL) 150 mg 24 hr tablet Take 1 tablet (150 mg total) by mouth daily. 90 tablet 2 ??? cholecalciferol (VITAMIN D-3) 1,000 unit Take 1 tablet/capsule (1,000 Units total) by mouth daily. 90 tablet/capsule 1 ??? lisinopril (PRINIVIL,ZESTRIL) 5 mg tablet Take 1 tablet (5 mg total) by mouth daily. 90 tablet 2 ??? metoprolol XL (TOPROL-XL) 25 mg 24 hr tablet Take 1 tablet (25 mg total) by mouth daily. 90 tablet 3 ??? pramipexole (MIRAPEX) 1.5 mg tablet Take 1 tablet (1.5 mg total) by mouth 3 (three) times a day. 90 tablet 11 ??? pravastatin (PRAVACHOL) 40 mg tablet Take 1 tablet (40 mg total) by mouth daily. 30 tablet 0 No current facility-administered medications on file prior to visit. No Known Allergies OBJECTIVE: Vitals BP 132/90 (BP Location: Right arm, Patient Position: Sitting) Pulse 70 Temp 37.1 ??C (98.7 ??F) (Oral) Ht 188 cm (6' 2 ) Wt 123.7 kg (272 lb 9.6 oz) BMI 35.00 kg/m?? Review of Systems Constitutional: Negative. Negative for chills, fatigue and fever. HENT: Positive for postnasal drip, sore throat and trouble swallowing. Negative for congestion, eardischarge, ear pain, hearing loss, nosebleeds, sinus pressure, tinnitus and voice change. Eyes: Negative. Negative for pain and discharge. Respiratory: Negative for apnea, cough, choking, shortness of breath, wheezing and stridor. Cardiovascular: Negative for chest pain, palpitations and leg swelling. Gastrointestinal: Negative for abdominal pain, constipation, nausea and vomiting. Negative for Heartburn, trouble swallowing foods or liquids Endocrine: Negative. Negative for cold intolerance and heat intolerance. Musculoskeletal: Negative. Negative for arthralgias, joint swelling, myalgias, neck pain and neck stiffness. Skin: Negative. Negative for color change, rash and wound. Negative for new skin lesions Allergic/Immunologic: Negative. Negative for environmental allergies and food allergies. Neurological: Negative. Negative for dizziness, syncope, speech difficulty, light-headedness and headaches. Hematological: Negative. Negative for adenopathy. Does not bruise/bleed easily. Psychiatric/Behavioral: Negative for agitation, behavioral problems and dysphoric mood. The patientis not nervous/anxious. Physical Exam Constitutional: He is oriented to person, place, and time. He appears well- developed and well-nourished. He is cooperative. No distress. HENT: Head: Normocephalic and atraumatic. Right Ear: Hearing, tympanic membrane, external ear and ear canal normal. Left Ear: Hearing, tympanic membrane, external ear and ear canal normal. Nose: Nose normal. No mucosal edema, rhinorrhea, sinus tenderness or nasal deformity. Mouth/Throat: Uvula is midline and mucous membranes are normal. No oral lesions. Posterior oropharyngeal erythema present. Tonsils are 3+ on the right. Tonsils are 3+ on the left. Eyes: Pupils are equal, round, and reactive to light. Conjunctivae, EOM and lids are normal. Neck: Trachea normal and full passive range of motion without pain. Neck supple. Cardiovascular: No edema, no JVD, normal distal perfusion Pulmonary/Chest: Effort normal. No respiratory distress. No cough, wheezing or stridor Abdominal: Normal appearance. Musculoskeletal: Normal range of motion. Left shoulder: Normal. Lymphadenopathy: He has no cervical adenopathy. Neurological: He is alert and oriented to person, place, and time. He has normal strength. No cranial nerve deficit. Coordination and gait normal. Skin: Skin is warm, dry and intact. No rash noted. Nails show no clubbing. Psychiatric: He has a normal mood and affect. His speech is normal and behavior is normal. Cognition and memory are normal. Laryngoscopy procedure Patient was seen and examined, verbal consent was obtained. Afrin was applied into each nasal cavity and after allowing time for local the congestion, flexible fiberoptic scope was introduced into each nasal cavity noting nasal vestibule nasal septum inferior, middle, and superior turbinates. The lateral nasal wall, posterior nasal septum nasopharynx including torus tubarius, fossa of Rosenmuller, posterior nasopharynx and eustachian tube orifice were examined today. Scope was passed further into the oropharynx noting soft palate, base of tongue, vallecula, lingual and laryngeal surfaces of the epiglottis, then further the the larynx noting arytenoids, false and true vocal folds, pyriform sinuses and post-cricoid region. Patient was directed to phonate and swallow. Findings: diffuse inflammation, vocal fold movement was symmetric to midline, swallow intact, no masses, polyps, lesions orulcers. Assessment & Plan: Diagnoses and all orders for this visit: Laryngopharyngeal reflux (LPR) (Primary) Assessment & Plan: Start Zantac 300 mg at bedtime Increase caffeine free and soda free fluid daily LPR discussed and Handout provided Orders: - raNITIdine (ZANTAC) 300 mg tablet; Take 1 tablet (300 mg total) by mouth nightly. Abnormal gag reflex Assessment & Plan: Start Zantac 300 mg at bedtime Increase caffeine free and soda free fluid daily LPR discussed and Handout provided Orders: - raNITIdine (ZANTAC) 300 mg tablet; Take 1 tablet (300 mg total) by mouth nightly. Arcelia Head DO Y PATCHER documented in this encounter Miscellaneous Notes * Assessment & Plan Note - Arcelia Head DO - 10/29/2018 4:10 PM PUTTY PATCHER Associated Problem(s): Abnormal gag reflex (Deleted) Start Zantac 300 mg at bedtime Increase caffeine free and soda free fluid daily LPR discussed and Handout provided Y PATCHER * Assessment & Plan Note - Arcelia Head DO - 10/29/2018 4:10 PM PUTTY PATCHER Associated Problem(s): Laryngopharyngeal reflux (LPR) Start Zantac 300 mg at bedtime Increase caffeine free and soda free fluid daily LPR discussed and Handout provided Y PATCHER documented in this encounter Plan of Treatment Not on file documented as of this encounter Visit Diagnoses Diagnosis Laryngopharyngeal reflux (LPR)- Primary Abnormal gag reflex documented in this encounter Care Teams Software Design Engineer Relationship Specialty Start Date End Date Kiarra Zhong DO PCP - General Family Medicine 10/20/18 11/25/18 documented as of this encounter
--- OUTSIDE RECORDS SUMMARY | 2024-09-17 12:59 | XMS_ITS | Encounter Summary ---
Author Organization [facility] Address [address] [place] [address] Care Team Providers Care Ecological Economist Name Role Phone Marcela Euceda NP Primary Care Provider [phone] Encounter Details Date Type Department Care Team (Late st Contact Info) Description 01/07/2019 Telephone [facility] of [address] [place] [address] Jada Phillips NP [address] [facility] [address] [place] [address] Social History Tobacco Use Types Packs/Day Years Used Date Smoking Tobacco: Never Smokeless Tobacco: Former Chew Quit: 08/2018 Comments:chews, not interest ed in counseling Alcohol Use Standard Drinks/Week Comments Yes 0 (1 standard drink = 0.6 oz pur e alcohol) can of beer a month Sex and Gender Information Value Date Recorded Sex Assigned at Not on file 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 Called patient to notify of findings on ct and to expect phone call to schedule this appointment. Pt voiced understanding. documented in this encounter Plan of Treatment Not on file documented as of this encounter Visit Diagnoses Not on filedocumented in this encounter Care Teams Ecological Economist Relationship Specialty Start Date End Date Marcela Euceda NP [address] [place] [address] [address] [place] [address] PCP - General Family Medicine 11/26/18 09/29/19 documented as of this encounter
--- OUTSIDE RECORDS SUMMARY | 2024-09-17 12:59 | XMS_ITS | Encounter Summary ---
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 Gender Identity Not on file Sexual Orientation Not on file documented as of this encounter Plan of Treatment Not on file documented as of this encounter Procedures Procedure Name Priority Date/Time Associated Diagnosis Comments URINE CULTURE Routine 12/19/2018 4:30 PM CDT documented in this encounter Results * Urine culture Urine, clean voided (12/19/2018 4:30 PM CDT) Report Final Report: Less than 100,000 colonies/mL (clinically insignificant growth based on current clinical standards) [facility]) Comment:Testing performed by : [facility], [address] [facility], [place]., [address] Organism (CLINICALLY INSIGNIFICANT GROWTH [facility] (SHAHEED) Urine, clean voided 12/19/2018 4:30 PM CDT 12/19/2018 10:05 PM CDT Narrative [facility] (PEKIN) - 12/20/2018 3:34 PM CDT Testing performed by [facility] Microbiology Laboratory ([phone]) us Marcela Euceda NP LAB MICROBIOLOGY - GENERAL BRO ANDRADE Final Result [facility] (PEKIN) [address] [facility] Department of [place] [address] documented in this encounter Visit Diagnoses Not on filedocumented in this encounter Care Teams Secretary Board Of Commissioners Relationship Specialty Start Date End Date Marcela Euceda NP [address] [place] [address] [address] [place] [address] PCP - General Family Medicine 11/26/18 09/29/19 documented as of this encounter
--- OUTSIDE RECORDS SUMMARY | 2024-09-17 12:59 | XMS_ITS | Encounter Summary ---
Author Organization [facility] Medical Group Address [address] [facility] [address] [place] [address] Care Team Providers Care Pack Mule Worker Name Role Phone Marcela Euceda NP Primary Care Provider [phone] Reason for Referral * Diagnostic Imaging (Routine) - Closed Specialty Diagnoses / Procedures Referred By Contac t Referred To Contact Diagnoses Diffuse abdominal pain Procedures US Abdomen Complete Marcela Euceda NP Phone: tel: fax: [address] [phone] Referral ID Status Reason Start Date Expiration Date Visits Re quested Visits Authorized [id number] Closed 12/18/2018 06/28/2020 1 1 * Diagnostic Imaging (Routine) - Closed Specialty Diagnoses / Procedures Referred By Contac t Referred To Contact Radiology Diagnoses Right flank pain Procedures CT KUB Stone WO Contrast Marcela Euceda NP Phone: tel: fax: [address] [phone] Referral ID Status Reason Start Date Expiration Date Visits Re quested Visits Authorized [id number] Closed 12/18/2018 06/28/2020 1 1 Reason for Visit * Reason Comments Back Pain possible bladder inf ection Encounter Details Date Type Department Care Team (Late st Contact Info) Description 12/18/2018 5:00 PM CDT Office Visit [facility] [address] [place] [address] Marcela Euceda NP [address] [place] [address] [address] [place] [address] Right flank pain (Primary Dx); Urinary frequency; Diffuse abdominal pain; Erectile dysfunction, unspecified erectile dysfunction type; Fatigue, unspecified type Social History Tobacco Use Types Packs/Day Years Used Date Smoking Tobacco: Never Smokeless Tobacco: Former Chew Quit: 08/2018 Comments:chews, not interest ed in counseling Alcohol Use Standard Drinks/Week Comments Yes 0 (1 standard drink = 0.6 oz pur e alcohol) can of beer a month Sex and Gender Information Value Date Recorded Sex Assigned at Not on file 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 Gender Identity Not on file Sexual Orientation Not on file documented as of this encounter Last Filed Vital Signs Vital Sign Reading Time Taken Comments Blood Pressure 122/80 12/18/2018 4:51 PM CDT Pulse 74 12/18/2018 4:51 PM CDT Temperature 36.7 ??C (98 ??F) 12/18/2018 4:51 PM CDT Respiratory Rate - - Oxygen Saturation 97% 12/18/2018 4:51 PM CDT Inhaled Oxygen Concentration - - Weight 121.6 kg (268 lb 1.6 oz) 12/18/2018 4:51 PM CDT Height 188 cm (6' 2.02 ) 12/18/2018 4:51 PM CDT Body Mass Index 34.41 12/18/2018 4:51 PM CDT documented in this encounter Progress Notes * Marcela Euceda NP - 12/18/2018 5:00 PM CDT Subjective/Objective Patient ID: Jaden De La Torre is a 48 y.o. male. Chief Complaint Back Pain (possible bladder infection) Mr. De La Torre experienced a sudden onset of right flank pain about one month ago. The employers physician advised him he had hematuria, so the patient went to an urgent care and was prescribed an antibiotic. The symptoms never resolved. He does not recall an injury Flank Pain This is a new problem. The current episode started 1 to 4 weeks ago. The problem occurs constantly.The problem is unchanged. The pain is present in the thoracic spine. The quality of the pain is described as aching. The pain does not radiate. The pain is at a severity of 9/10. The pain is moderate. The pain is the same all the time. Pertinent negatives include no abdominal pain, bladder incontinence, bowel incontinence, chest pain, dysuria, fever, headaches, leg pain, numbness, paresis, paresthesias, pelvic pain, perianal numbness, tingling, weakness or weight loss. Erectile Dysfunction This is a new problem. The current episode started more than 1 year ago. The problem has been gradually worsening since onset. The nature of his difficulty is achieving erection and maintaining erection. He reports no anxiety, decreased libido or performance anxiety. Irritative symptoms include frequency. Obstructive symptoms do not include dribbling, incomplete emptying, an intermittent stream, a slower stream, straining or a weak stream. Pertinent negatives include no chills, dysuria, genitalpain, hematuria, hesitancy or inability to urinate. Nothing aggravates the symptoms. Past treatments include nothing. Review of Systems Constitutional: Negative for chills, fever and weight loss. Cardiovascular: Negative for chest pain. Gastrointestinal: Negative for abdominal pain and bowel incontinence. Genitourinary: Positive for flank pain and frequency. Negative for bladder incontinence, decreased libido, dysuria, hematuria, hesitancy, incomplete emptying and pelvic pain. Neurological: Negative for tingling, weakness, numbness, headaches and paresthesias. Psychiatric/Behavioral: The patient is not nervous/anxious. BP 122/80 (BP Location: Left arm, Patient Position: Sitting) Pulse 74 Temp 36.7 ??C (98 ??F) (Oral) Ht 188 cm (6' 2.02 ) Wt 121.6 kg (268 lb 1.6 oz) SpO2 97% BMI 34.41 kg/m?? Physical Exam Constitutional: He is oriented to person, place, and time. He appears well- developed and well-nourished. No distress. Eyes: Pupils are equal, round, and reactive to light. Conjunctivae and EOM are normal. Neck: Normal range of motion. No JVD present. No thyromegaly present. Cardiovascular: Normal rate, regular rhythm, normal heart sounds and intact distal pulses. Pulmonary/Chest: Effort normal and breath sounds normal. Abdominal: Soft. Bowel sounds are normal. He exhibits no distension and no mass. There is no hepatosplenomegaly. There is generalized tenderness. There is CVA tenderness (left). There is no rigidity,no rebound, no guarding, no tenderness at McBurney's point and negative Ramirez's sign. Difficult exam due to body havitus Musculoskeletal: Normal range of motion. He exhibits tenderness. Thoracic back: He exhibits tenderness. He exhibits normal range of motion. Lymphadenopathy: He has no cervical adenopathy. Neurological: He is alert and oriented to person, place, and time. Skin: Skin is warm and dry. He is not diaphoretic. Psychiatric: He has a normal mood and affect. His behavior is normal. Judgment and thought content normal. Assessment/Plan Diagnoses and all orders for this visit: Right flank pain (R10.9) (Primary) - CT KUB Stone WO Contrast; Future Urinary frequency (R35.0) - POCT UA, AUTO W/O SCOPE - Urine culture Urine, clean voided; Future Diffuse abdominal pain (R10.84) - US Abdomen Complete; Future Erectile dysfunction, unspecified erectile dysfunction type (N52.9) - Testosterone; Future Fatigue, unspecified type (R53.83) - CBC with auto differential; Future - Comprehensive metabolic panel; Future - Testosterone; Future - Vitamin D 25 hydroxy; Future Treatment pending imaging and labs Follow up in one month documented in this encounter Miscellaneous Notes * Addendum Note - Thais Hernandez CLT - 12/18/2018 5:00 PM CDTAddended by: THAIS HERNANDEZ on: 12/25/2018 03:58 PM Modules accepted: Orders documented in this encounter Plan of Treatment Scheduled Orders Name Type Priority Associated Diagnoses Orde r Schedule Urine culture Urine, clean voided Microbiology Routine Urinary frequency Expected: 12/18/2018, Expires: 12/19/2019 documented as of this encounter Procedures Procedure Name Priority Date/Time Associated Diagnosis Comments POCT URINALYSIS, AUTO W/O SCOPE Routine 12/18/2018 5:18 PM CDT Urinary frequency documented in this encounter Results * US [...] Euceda NP IMG US PROCEDURES Final Result * CT KUB Stone WO Contrast (01/02/2019 8:33 AM CDT) Anatomical Region Laterality Modality Abdomen N/A Computed Tomogra phy 01/02/2019 8:4 2 AM CDT Impressions 01/02/2019 8:46 AM CDT [...] Euceda NP IMG CT PROCEDURES Final Result * Vitamin D 25 hydroxy (12/25/2018 4:02 PM CDT) Vitamin D 25-OH 30 30 - 80 ng/mL [facility] (SHAHEED) Blood specimen (specimen) 12/25/2018 4:02 PM CDT 12/25/2018 5:03 PM CDT Narrative [facility] (SHAHEED) - 12/25/2018 5:35 PM CDT Marcela Euceda NP LAB BLOOD ORDERABLES Final Resu lt [facility]OPKINS (SHAHEED) 1 [facility] Department [place] [address] * Testosterone (12/25/2018 4:02 PM CDT) Testosterone 574 193 - 740 ng/dL BERKLEY HOPKINS (SHAHEED) Comment:Testing performed by : [facility], [address] [place] [address], [place]., [address] Blood specimen (specimen) 12/25/2018 4:02 PM CDT 12/26/2018 10:10 AM CDT Narrative BERKLEY HOPKINS (SHAHEED) - 12/26/2018 11:02 AM CDT us Marcela Wattsba HOB MACHINE OPERATOR LAB BLOOD ORDERABLES Final Resu lt [facility] ([facility]) [address] [facility] Department [place] [address] * Comprehensive metabolic panel (12/25/2018 4:02 PM [...] - 25 mg/dL [facility] ([facility]HEED) Creatinine 0.84 0.80 - 1.30 mg/dL [facility] ([facility]) [...] CDT Narrative [facility] ([facility]) - 12/25/2018 5:35 PM CDT us Marcela Euceda HOB MACHINE OPERATOR LAB BLOOD ORDERABLES Final Resu lt [facility] ([facility]HE[facility]) 1 [facility] [place] [address] * CBC with auto differential (12/25/2018 4:02 PM CDT) WBC 4.8 3.8 - 9.9 K/cumm [facility] ([facility]) Hgb 14.4 13.0 - 17.5 g/dL [facility] ([facility]) Hct 40.4 38.9 - 50.3 % [facility] ([facility]) Plt 221 150 - 400 K/cumm [facility] ([facility]) MPV 10.2 9.1 - 12.3 fL [facility] ([facility]) RBC 4.44 4.30 - 5.80 M/cumm [facility] ([facility]) MCV 91.0 81.3 - 96.4 fL [facility] ([facility]) MCH 32.4 27.1 - 33.3 pg [facility] ([facility]) MCHC 35.6 32.3 - 35.7 g/dL [facility] ([facility]) RDW CV 12.1 11.1 - 14.9 % [facility] ([facility]) RDW SD 40.0 35.7 - 48.1 fL [facility] ([facility]) NRBC abs 0.00 0.00 - 0.01 K/cumm [facility] ([facility]) Blood specimen (specimen) 12/25/2018 4:02 PM CDT 12/25/2018 5:03 PM CDT Narrative [facility] ([facility]) - 12/25/2018 5:05 PM CDT Marcela Euceda NP LAB BLOOD ORDERABLES Final Resu lt [facility] ([facility]) 1 [facility] Department [place] [address] * (ABNORMAL) POCT UA, AUTO W/O SCOPE (12/18/2018 5:18 PM CDT) Color, Urine, POC Yellow Clarity, ur, POC Clear Clear Glucose, ur, POC Negative Negative mg/dL Bilirubin, ur, POC Negative Negative, Small, Moderate, Large Ketones, ur, POC Negative Negative Specific [place], POC 1.020 1.005 - 1.030 Blood, ur, POC Negative Negative pH, ur, POC 7.0 5.0 - 8.0 Protein, ur, POC Trace(A) Negative Urobilinogen, Urine, POC 1.0 mg/dL Leukocytes, ur, POC Trace(A) Negative Nitrite, ur, POC Negative Negative Appearance, fld Clear Clear Urine, clean voided 12/18/2018 5:18 PM CDT Marcela Euceda NP POINT OF CARE TEST ORDERABLES F inal Result documented in this encounter Visit Diagnoses Diagnosis Right flank pain- Primary Abdominal pain, unspecified site Urinary frequency Diffuse abdominal pain Erectile dysfunction, unspecified erectile dysfunction type Fatigue, unspecified type Fatigue, unspecified type Erectile dysfunction, unspecified erectile dysfunction type Diffuse abdominal pain Right flank pain Abdominal pain, unspecified site documented in this encounter Historical Medications * This list may reflect changes made after this encounter. Medication Sig Dispense Quantity Refills Last Filled Start D ate End Date methocarbamol (ROBAXIN) 500 mg tablet 12/16/2018 01/19/2019 added in this encounter Care Teams Pack Mule Worker Relationship Specialty Start Date End Date Marcela Euceda NP [address] [place] [address] [address] [place] [address] PCP - General Family Medicine 11/26/18 09/29/19 documented as of this encounter
--- OUTSIDE RECORDS SUMMARY | 2024-09-17 12:59 | XMS_ITS | Encounter Summary ---
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
--- OUTSIDE RECORDS SUMMARY | 2024-09-17 12:59 | XMS_ITS | Encounter Summary ---
Author Organization [facility] Medical Group Address [address] [facility] [address] [place] [address] Care Team Providers Care Care Manager Name Role Phone Kiarra Zhong DO Primary Care Provider [phone] Encounter Details Date Type Department Care Team (Late st Contact Info) Description 10/22/2018 Telephone [facility] [address] [place] [address] Kiarra Zhong DO [address] [address] Social History Tobacco Use Types Packs/Day Years Used Date Smoking Tobacco: Never Smokeless Tobacco: Current Chew Comments:chews, not interest ed in counseling Alcohol Use Standard Drinks/Week Comments Yes 0 (1 standard drink = 0.6 oz pur e alcohol) can of beer a month Sex and Gender Information Value Date Recorded Sex Assigned at Not on file 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
--- OUTSIDE RECORDS SUMMARY | 2024-09-17 13:00 | XMS_ITS | Encounter Summary ---
Author Organization [facility] Healthcare Address [address] [place] [address] Care Team Providers Care Supervisor [employer] Name Role Phone Quentin Dewitt NP Primary Care Provi christian Reason for Referral * (Routine) - Closed Specialty Diagnoses / Procedures Referred By Zaida camacho Referred To Contact Diagnoses Palpitation Procedures Event Monitor - Loop 30 Day Enzo Winchester MD Phone: tel: fax: [address] [phone] Referral ID Status Reason Start Date Expiration Date Visits Re quested Visits Authorized [id number] Closed 08/25/2018 03/05/2020 1 1 FINISHER Reason for Visit * (Routine) - Closed Specialty Diagnoses / Procedures Referred By Zaida camacho Referred To Contact Diagnoses Palpitation Procedures Event Monitor - Loop 30 Day Enzo Winchester MD Phone: tel: fax: [address] [phone] Referral ID Status Reason Start Date Expiration Date Visits Re quested Visits Authorized [id number] Closed 08/25/2018 03/05/2020 1 1 Encounter Details Date Type Department Care Team (Late st Contact Info) Description 08/29/2018 12:34 PM CORE FINISHER - 08/29/2018 11:59 PM CORE FINISHER Hospital Encounter [facility] Cardiology [address] [place] [address] Enzo Winchester MD [address] [facility] [place] [address] Palpitation Discharge Disposition: Discharge to home or self [...] on file 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 30 tablet 08/26/2018 10/20/2018 buPROPion XL (WELLBUTRIN XL) 150 mg 24 hr tablet Take 150 mg by mouth daily. 10/20/2018 cholecalciferol (VITAMIN D-3) 1,000 unit Take 1,000 Units by mouth daily. 10/20/2018 metoprolol (LOPRESSOR) 25 mg tablet Take 1 tablet (25 mg total) by mouth 2 (two) times a day. 60 tablet 08/25/2018 10/20/2018 pramipexole (MIRAPEX) 1 mg tablet Take 0.5 mg by mouth nightly. 07/01/2018 10/20/2018 pravastatin (PRAVACHOL) 40 mg tabletIndications :hyperlipidemia Take 1 tablet (40 mg total) by mouth daily. 30 tablet 08/25/2018 10/20/2018 documented as of this encounter Discharge Disposition Disposition Code Departure Means Destination Discharge to home or self care documented in this encounter Plan of Treatment Not on file documented as of this encounter Procedures Procedure Name Priority Date/Time Associated Diagnosis Comments EVENT MONITOR W LOOP Routine 08/29/2018 1:19 PM CORE FINISHER Palpitation documented in this encounter Results * Event Monitor - Loop 30 Day (08/29/2018 1:19 PM CORE FINISHER) Anatomical Region Laterality Modality Electrocardiogra phy 09/25/2018 Narrative 09/25/2018 12:52 PM CORE FINISHER [address] [place] [address] EVENT MONITOR Patient Name: THOMAS CLEMENT : 1970 Study Date: 09/25/2018 00:00:00 Gender: M Tech: Ref.Provider: ENZO WINCHESTER Height(Cm): BSA: Weight(Kg): Order Provider: ENZO WINCHESTER Procedures: Event Report: Event Monitor Report. Indications: Palpitations R00.2. Conclusions: 1. Predominant rhythm is normal sinus rhythm. The average heart rate was 68 beats per minute with a minimal heart rate of 46 beats per minute and a maximal heart rate of 142 beats per minute which was sinus tachycardia. 2. No prolonged pauses. 3. Rare PACs. 4. Rare PVCs. 5. There are no supraventricular tachycardia events noted. 6. There are no ventricular tachycardia events noted. 7. There were 9 triggered events all of which were associated with sinus rhythm. Electronically Signed By: Dr Mando Liz 2018-09-25 12:52:47 CORE FINISHER Procedure Note Mando Liz, DO - 09/25/[address] [place] [address] EVENT MONITOR Patient Name: ALLISON CLEMENTatient ID: [id number] : [id number] Date: 09/25/2018 00:00:00 Gender: MAccession #: [id number] Tech: Ref.Provider: ENZO WINCHESTER Height(Cm): BSA: Weight(Kg): Order Provider: ENZO WINCHESTER Procedures: Event Report: Event Monitor Report. Indications: Palpitations R00.2. Conclusions: 1. Predominant rhythm is normal sinus rhythm. The average heart rate was68 beats per minute with a minimal heart rate of 46 beats per minute and a maximalheart rate of 142 beats per minute which was sinus tachycardia. 2. No prolonged pauses. 3. Rare PACs. 4. Rare PVCs. 5. There are no supraventricular tachycardia events noted. 6. There are no ventricular tachycardia events noted. 7. There were 9 triggered events all of which were associated with sinusrhythm. Electronically Signed By: Dr Mando Liz 2018-09-25 12:52:47 CORE FINISHER us Enzo Winchester MD CV CARDIAC SERVICES PROC EDURES Final Result documented in this encounter Visit Diagnoses Diagnosis Palpitation Palpitations documented in this encounter Care Teams Supervisor [employer] Relationship Specialty Start Date End Date Quentin Dewitt NP PCP - General 12/07/16 10/19/18 documented as of this encounter
--- OUTSIDE RECORDS SUMMARY | 2024-09-17 13:00 | XMS_ITS | Encounter Summary ---
Author Organization [facility] Medical Group Address [address] [facility] [address] [place] [address] Care Team Providers Care Wine Steward Name Role Phone Quentin Dewitt NP Primary Care Provi christian Reason for Visit * Reason Onset Date Comments Needing records sent to [facility] 04/22/2017 Encounter Details Date Type Department Care Team (Late st Contact Info) Description 04/22/2017 Telephone [facility] [address] [place] [address] Jada Phillips NP [address] [facility] [address] [place] [address] Needing records sent to [facility] Social History Tobacco Use Types Packs/Day Years Used Date Smoking Tobacco: Smoker, Current Status Unknown Alcohol Use Standard Drinks/Week Comments Yes 0 (1 standard drink = 0.6 oz pur e alcohol) Sex and Gender Information Value Date Recorded Sex Assigned at Not on file 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 Called Jaden back and he is needing his medical records faxed over to [facility]. Jaden is coming In to sign A consent to release information documented in this encounter Plan of Treatment Not on file documented as of this encounter Visit Diagnoses Not on filedocumented in this encounter Care Teams Wine Steward Relationship Specialty Start Date End Date Quentin Dewitt NP PCP - General 12/07/16 10/19/18 documented as of this encounter
--- OUTSIDE RECORDS SUMMARY | 2024-09-17 13:00 | XMS_ITS | Encounter Summary ---
Author Organization [facility] Healthcare Address [address] [place] [address] Care Team Providers Care Planning Analyst Name Role Phone Quentin Dewitt NP Primary Care Provi christian Reason for Referral * (Routine) - Closed Specialty Diagnoses / Procedures Referred By Contac t Referred To Contact Diagnoses Palpitation Procedures Event Monitor - Loop 30 Day Leti Winchester MD Phone: tel: fax: [facility] [address] [place] [address] Referral ID Status Reason Start Date Expiration Date Visits Re quested Visits Authorized [id number] Closed 08/25/2018 03/05/2020 1 1 CARDER Reason for Visit * Reason Comments Shortness of Breath Chest pain Encounter Details Date Type Department Care Team (Late st Contact Info) Description 08/24/2018 7:42 PM WOOL CARDER - 08/25/2018 5:58 PM WOOL CARDER Emergency [facility] IM[facility] [address] [place] [address] Kole Devries MD [address] [place] [address] Lorna Garcia MD [address] [place] [address] [place] [address] Leti Winchester MD [address] [place] [address] Chest pain due to myocardial ischemia, unspecified ischemic chest pain type (Primary Dx); Palpitation Discharge Disposition: Discharge to home or self care Social History Tobacco Use Types Packs/Day Years Used Date Smoking Tobacco: Never Smokeless Tobacco: Current Chew Tobacco Cessation:Ready to Q uit: No; Counseling Given: No Comments:chews, not interested in counseling Alcohol Use Standard Drinks/Week Comments Yes 0 (1 standard drink = 0.6 oz pur e alcohol) can of beer a month Sex and Gender Information Value Date Recorded Sex Assigned at Not on file Legal Sex Male 8:02 AM WOOL CARDER Gender Identity Not on file Sexual Orientation Not on file documented as of this encounter Last Filed Vital Signs Vital Sign Reading Time Taken Comments Blood Pressure 129/82 08/25/2018 3:04 PM WOOL CARDER Pulse 69 08/25/2018 3:04 PM WOOL CARDER Temperature 36.6 ??C (97.8 ??F) 08/25/2018 3:04 PM CS T Respiratory Rate 18 08/25/2018 3:04 PM WOOL CARDER Oxygen Saturation 96% 08/25/2018 3:04 PM WOOL CARDER Inhaled Oxygen Concentration - - Weight 108.3 kg (238 lb 12.8 oz) 2017 10:00 PM WOOL CARDER Height 188 cm (6' 2 ) 08/24/2018 10:00 PM WOOL CARDER Body Mass Index 30.66 08/24/2018 10:00 PM WOOL CARDER documented in this encounter Discharge Summaries * Leti Winchester MD - 08/25/2018 5:47 PM CST Patient was admitted and discharged on same day. Please see my brief discharge summary on my admission note. Thank you CARDER documented in this encounter Discharge Instructions * Appointments* Audra Linder RN - 08/25/2018 5:27 PM WOOL CARDER Please call centralized scheduling to schedule appointment to get 30 day monitor placed. [phone] CARDER * Attachments The following attachments cannot be sent through Care Everywhere. * Pravastatin (By mouth) (Maltese) * Metoprolol (By mouth) (Maltese) * Aspirin (By mouth) (Maltese) documented in this encounter Medications at Time [...] 08/25/2018 10/20/2018 documented as of this encounter Ordered Prescriptions Prescription Sig Dispense Quantity Refills Last Filled Start Date End Date aspirin 81 mg chewable tabletIndications: prevention of thrombosis,dydlipi demia Take 1 tablet (81 mg total) by mouth daily. 30 tablet 08/26/2018 10/20/2018 metoprolol (LOPRESSOR) 25 mg tablet Take 1 tablet (25 mg total) by mouth 2 (two) times a day. 60 tablet 08/25/2018 10/20/2018 pravastatin (PRAVACHOL) 40 mg tabletIndications: hyperlipidemia Take 1 tablet (40 mg total) by mouth daily. 30 tablet 08/25/2018 10/20/2018 documented in this encounter Discharge Disposition Disposition Code Departure Means Destination Discharge to home or self care documented in this encounter H&P Notes * Leti Winchseter MD - 08/25/2018 12:59 PM CST General Medicine History and Physical Date Of Service: 08/25/2018 Primary Care Physician: Quentin Palomares, [phone] SUBJECTIVE Patient is a 47 y.o. male with chief complaint of shortness of breath, palpitation, chest pressure HPI: 47-year-old male with past medical history as mentioned came in for sudden onset of shortness of breath and palpitation. Patient also reports chest pressure day before presentation. Patient states shortness of breath and palpitation occurred on day of presentation while he was resting. Patient alsoreports intermittent palpitation for past 1 month. Denies any dizziness lightheadedness or loss of c onsciousness. No syncopal episode. Patient states day before yesterday he had chest pressure and hefelt like someone is sitting on his chest. Patient admitted to telemetry floor for further workup. 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 Reports social alcohol use. Denies any recreational drug use Prescriptions Prior to Admission Medication Sig Dispense Refill Last Dose ??? buPROPion XL (WELLBUTRIN XL) 150 mg 24 hr tablet Take 150 mg by mouth daily. ??? cholecalciferol (VITAMIN D-3) 1,000 unit Take 1,000 Units by mouth daily. ??? hydroCHLOROthiazide (HYDRODIURIL) 12.5 mg tablet Take 12.5 mg by mouth daily. ??? pravastatin (PRAVACHOL) 40 mg tablet Take 20 mg by mouth daily. ??? pramipexole (MIRAPEX) 1 mg tablet Take 0.5 mg by mouth nightly. No Known Allergies Family History Problem Relation Age of Onset ??? Throat cancer Father Cancer, throat; Review of Systems Positive for chest pressure, shortness of breath and palpitation present on admission. Resolved now. Currently patient denies any chest pain, shortness of breath, palpitation. Patient is on room air saturating 96%. Patient denies Headache, Blurry vision, Fever, Abdominal Pain, Nausea, Vomiting, Diarrhea, Urinary Symptoms, Dizziness, Weakness, Paresthesias, Loss of conciousness OBJECTIVE Vitals: Arrival Vitals Temp 08/24/182000 37 ??C (98.6 ??F) Pulse 08/24/181953 78 Resp 08/24/182000 18 BP 08/24/181953 144/95 SpO2 08/24/181999 97 % Temp src 08/24/182000 Temporal Heart Rate Source 08/25/18 0349 Monitor Patient Position 08/24/182029 Lying BP Location 08/24/182029 Left arm FiO2 (%) -- 24hr Min/Max: Temp Min: 36.2 ??C (97.1 ??F) Max: 37.3 ??C (99.1 ??F) Pulse Min: 58 Max: 81 BP Min: 105/60 Max: 151/101 Resp Min: 16 Max: 22 SpO2 Min: 93 % Max: 97 % Most Recent : Vitals: 08/25/18 1504 BP: 129/82 Pulse: 69 Resp: 18 Temp: 36.6 ??C (97.8 ??F) SpO2: 96% No intake/output data recorded. I/O this shift: In: 120 [P.O.:120] Out: - Physical exam: Patient seen and examined Not in acute distress HEENT: AT/NC, Neck supple Heart: S1, S2, RRR Lung: CTA bilateral Abdomen: S, NT, ND, BS+ Neuro: AAO times 3, no focal deficit Ext: No gross lower extremity edema. No calf tenderness Lab/Radiology/Diagnostic Review: Recent Results (from the past 24 hour(s)) Comprehensive metabolic panel Collection Time: 08/24/18 7:56 PM Result Value Ref Range Sodium 139 135 - 145 mmol/L Potassium, pl 3.7 3.3 - 4.9 mmol/L Chloride 102 97 - 110 mmol/L CO2 26 22 - 32 mmol/L Anion Gap 11 2 - 15 mmol/L BUN 11 8 - 25 mg/dL Creatinine 0.99 0.80 - 1.30 mg/dL Glucose 128 70 - 199 mg/dL Calcium 9.8 8.5 - 10.3 mg/dL Bilirubin, total 0.5 0.1 - 1.2 mg/dL Protein, pl 7.1 6.5 - 8.5 g/dL Albumin 4.5 3.5 - 5.0 g/dL Alk phos 105 40 - 130 Units/L ALT 43 7 - 55 Units/L AST 26 10 - 50 Units/L CBC with auto differential Collection Time: 08/24/18 7:56 PM Result Value Ref Range WBC 6.2 3.8 - 9.9 K/cumm Hgb 15.6 13.0 - 17.5 g/dL Hct 44.0 38.9 - 50.3 % Plt 231 150 - 400 K/cumm MPV 9.7 9.1 - 12.3 fL RBC 4.87 4.30 - 5.80 M/cumm MCV 90.3 81.3 - 96.4 fL MCH 32.0 27.1 - 33.3 pg MCHC 35.5 32.3 - 35.7 g/dL RDW CV 11.9 11.1 - 14.9 % RDW SD 38.9 35.7 - 48.1 fL NRBC Abs 0.00 0.00 - 0.01 K/cumm Pro B-type natriuretic peptide Collection Time: 08/24/18 7:56 PM Result Value Ref Range NT-proBNP 14 <=300 pg/mL Troponin T Collection Time: 08/24/18 7:56 PM Result Value Ref Range Troponin T <0.01 0.00 - 0.01 ng/mL Differential, auto Collection Time: 08/24/18 7:56 PM Result Value Ref Range Neutrophil absolute 3.5 1.7 - 6.5 K/cumm Immature granulocyte absolute 0.1 0.0 - 0.1 K/cumm Lymphocytes absolute 1.9 0.8 - 3.3 K/cumm Monocyte absolute 0.5 0.2 - 0.8 K/cumm Eosinophils absolute 0.2 0.0 - 0.5 K/cumm Basophils, abs 0.1 0.0 - 0.1 K/cumm Neutrophils 56.1 % Immature granulocytes 1.0 % Lymphocytes 31.1 % Monocytes 7.9 % Eosinophils 2.9 % Basophils 1.0 % eGFR Collection Time: 08/24/18 7:56 PM Result Value Ref Range GFR 89 mL/min/1.73 m2 Troponin T Collection Time: 08/25/18 12:52 AM Result Value Ref Range Troponin T <0.01 0.00 - 0.01 ng/mL Lipid panel Collection Time: 08/25/18 5:04 AM Result Value Ref Range Cholesterol 168 30 - 199 mg/dL Triglycerides 271 (H) <=149 mg/dL HDL 35 (L) >=40 mg/dL LDL, calculated 79 <=129 mg/dL Non-HDL Cholesterol 133 mg/dL Chol/HDL ratio 5 Hemoglobin A1c Collection Time: 08/25/18 5:04 AM Result Value Ref Range Hgb A1C 5.1 4.0 - 5.6 % Estimated Average Glucose 100 mg/dL CBC with auto differential Collection Time: 08/25/18 5:05 AM Result Value Ref Range WBC 5.4 3.8 - 9.9 K/cumm Hgb 14.8 13.0 - 17.5 g/dL Hct 41.5 38.9 - 50.3 % Plt 222 150 - 400 K/cumm MPV 9.9 9.1 - 12.3 fL RBC 4.60 4.30 - 5.80 M/cumm MCV 90.2 81.3 - 96.4 fL MCH 32.2 27.1 - 33.3 pg MCHC 35.7 32.3 - 35.7 g/dL RDW CV 12.0 11.1 - 14.9 % RDW SD 39.5 35.7 - 48.1 fL NRBC Abs 0.00 0.00 - 0.01 K/cumm Comprehensive metabolic panel Collection Time: 08/25/18 5:05 AM Result Value Ref Range Sodium 139 135 - 145 mmol/L Potassium, pl 3.7 3.3 - 4.9 mmol/L Chloride 103 97 - 110 mmol/L CO2 25 22 - 32 mmol/L Anion Gap 11 2 - 15 mmol/L BUN 10 8 - 25 mg/dL Creatinine 0.91 0.80 - 1.30 mg/dL Glucose 110 70 - 199 mg/dL Calcium 9.3 8.5 - 10.3 mg/dL Bilirubin, total 0.5 0.1 - 1.2 mg/dL Protein, pl 6.2 (L) 6.5 - 8.5 g/dL Albumin 4.2 3.5 - 5.0 g/dL Alk phos 92 40 - 130 Units/L ALT 38 7 - 55 Units/L AST 20 10 - 50 Units/L Troponin T Collection Time: 08/25/18 5:05 AM Result Value Ref Range Troponin T <0.01 0.00 - 0.01 ng/mL Differential, auto Collection Time: 08/25/18 5:05 AM Result Value Ref Range Neutrophil absolute 2.7 1.7 - 6.5 K/cumm Immature granulocyte absolute 0.1 0.0 - 0.1 K/cumm Lymphocytes absolute 1.9 0.8 - 3.3 K/cumm Monocyte absolute 0.5 0.2 - 0.8 K/cumm Eosinophils absolute 0.2 0.0 - 0.5 K/cumm Basophils, abs 0.1 0.0 - 0.1 K/cumm Neutrophils 50.0 % Immature granulocytes 1.3 % Lymphocytes 34.2 % Monocytes 9.2 % Eosinophils 4.2 % Basophils 1.1 % eGFR Collection Time: 08/25/18 5:05 AM Result Value Ref Range GFR 99 mL/min/1.73 m2 D-dimer, quantitative Collection Time: 08/25/18 2:38 PM Result Value Ref Range D-dimer <150 (L) 150 - 230 ng/mL D-DU Xr Chest 1 Vw Portable Result Date: 08/24/2018 Narrative: XR CHEST 1 VIEW HISTORY: Shortness of breath. Tachycardia. COMPARISON: None available. FINDINGS: Heart size is normal. Lungs are clear. Distal right clavicle has been resected. Impression: NO ACTIVE DISEASE. Electronically signed by: Stephan Sosa M.D. ASSESSMENT/PLAN 1. Atypical chest pain Patient admitted to telemetry floor. Troponins are negative. EKG showed sinus rhythm, no acute ST/T-wave changes. Chest x-ray unremarkable. Will check D-dimer. Check hemoglobin A1c, check lipid panel Patient evaluated by Cardiology. Cardiology recommends stress echocardiogram. 2. Palpitation Patient denies any dizziness, lightheadedness, loss of consciousness. No family history of sudden cardiac EKG showed sinus rhythm. On telemetry patient is in sinus rhythm so far heart rate is under control Patient is educated to cut down on caffeine intake. Will change hydrochlorothiazide to beta-augustus per Cardiology Patient needs outpatient 30 days CardioNet monitor. 3. Anxiety Continue with bupropion 4. History of TAJ on CPAP Continue with nocturnal CPAP at home settings 5. Restless leg syndrome Continue with pramipexole 6. DVT/GI prophylaxis Full code Discharge summary Stress echocardiogram(08/25/2018) Findings: Stress Echo: Predicted Maximal HR 171 bpm. Resting ECG: Normal EKG. Exercise ECG: Normal exercise ECG. Resting LV Function: Normal left ventricular size and systolic function with normal wall thickness. Post Stress LV Function: Hyperdynamic global contractility, no segmental wall motion abnormality, chamber size smaller. Conclusions: Adequate stress test in regards to heart rate. No exercise induced chest pain. No definite ischemia on stress EKG. No Echocardiographic evidence of ischemia. Stress echocardiogram results reviewed. Stress echo done on 08/25/2018 did not show any EKG or echocardiographic evidence of ischemia. No exercise-induced chest pain. LV size and systolic function normal. Lipid panel showed cholesterol 168, triglyceride 271, HDL 35, LDL 79. Hemoglobin A1c 5.1 D-dimer less than 150 Patient educated about diet modification, exercise and weight loss. Patient is educated about blood pressure medication modification. Hydrochlorothiazide is discontinued and patient is started on Lopressor for palpitation but cardiology. Patient is educated about close blood pressure monitoring. Patient needs to check his blood pressure at home 3 times a day and keep records of his home blood pressure reading and follow up with his PCP within 1 week. Patient is educated if his blood pressure is too high or too low immediately call his PCP or go to nearest emergency room For palpitation patient is educated to cut down on caffeine intake. Patient is being discharged on 30 days CardioNet monitor. Patient will need 2D echocardiogram as an outpatient. On telemetry patient is in sinus rhythm. Heart rate is controlled. Currently patient denies any chest pain, shortness of breath, palpitation, dizziness. Patient is afebrile. Patient denies any abdominal pain, nausea, vomiting, diarrhea. Blood pressure is controlled. Vital signs Temperature-97.1, heart rate-69, respirations -18, blood pressure 129/82, oxygen saturation 96% on room air Patient is educated to be compliant with his CPAP machine at night. Patient needs to follow up with his PCP within 1 week. For more details please refer to history and physical done by me as mentioned above CARDER CARDER documented in this encounter Consult Notes * Mando Liz DO - 08/25/2018 8:50 AM CSTAssociated Order(s): IP CONSULT TO CARDIOLOGY Cardiology Consultation note Admit date: 08/24/2018 Reason for Consultation: Palpitations, chest discomfort History of Present Illness: Jaden Clement is a pleasant 47 y.o. male presented to the ED because of concerns with palpitations and chest discomfort. These are independent problems. The chest discomfort occurred yesterday lasting most of the day, unchanged with activity or associated with other symptoms. The patient has had intermittent episodes of palpitations for some time but recently were lasting for longer. Not associated with any other symptoms other than some dyspnea. Troponin on presentation to the ED was <0.01 and unchanged on 9 hr follow-up. ECG reveals sinus rhythm and was within normal limits. Past Medical History: Diagnosis Date ??? Anxiety disorder Anxiety ??? Depression Depression ??? HX OTHER MEDICAL Hemorrhoids ??? HX OTHER MEDICAL hypoglycemic ??? Hypertension Hypertension ??? Sleep apnea Past Surgical History: Procedure Laterality Date ??? CARPAL TUNNEL RELEASE Carpal tunnel release ??? OTHER SURGICAL HISTORY Hemorrhoids: Hemorrhoidectomy ??? SHOULDER SURGERY shoulder surgery Family History Problem Relation Age of Onset ??? Throat cancer Father Cancer, throat; Social History Social History ??? Marital status: Spouse name: N/A ??? Number of children: N/A ??? Years of education: N/A Social History Main Topics ??? Smoking status: Never Smoker ??? Smokeless tobacco: Current User Types: Chew Comment: chews, not interested in counseling ??? Alcohol use Yes Comment: can of beer a month ??? Drug use: No ??? Sexual activity: Defer Other Topics Concern ??? None Social History Narrative ??? None Review of systems: Constitutional: Negative for fever, chills, malaise/fatigue, and diaphoresis. Psychiatric: Negative for depression and anxiety. Skin: Negative for rash and itching. HENT: Negative for headaches, lightheadedness, and congestion. Negative for vertigo. Eyes: Negative for blurred vision and itching. Cardiovascular: Negative for chest pain, Negative for palpitations and syncope. Respiratory: Negative for cough and sputum production. Negative for shortness of breath. Gastrointestinal: Negative for nausea, vomiting, abdominal pain and diarrhea. Musculoskeletal: Negative for muscle weakness, extremity redness or swelling. Neurological: Negative for dizziness, focal weakness, tremors, and loss of consciousness. Vital Signs: Arrival Vitals Temp 08/24/182000 37 ??C (98.6 ??F) Pulse 08/24/181953 78 Resp 08/24/182000 18 BP 08/24/181953 144/95 SpO2 08/24/181999 97 % Temp src 08/24/182000 Temporal Heart Rate Source 08/25/18348 Monitor Patient Position 08/24/182029 Lying BP Location 08/24/182029 Left arm FiO2 (%) -- Vitals: 08/25/18 0349 08/25/18 0400 08/25/18 0600 08/25/18 0809 BP: 105/60 131/81 BP Location: Right arm Right arm Patient Position: Lying Lying Pulse: 60 58 59 59 Resp: Temp: 37.3 ??C (99.1 ??F) 36.2 ??C (97.1 ??F) TempSrc: Temporal Tympanic SpO2: 96% 97% Weight: Height: No intake or output data in the 24 hours ending 08/25/18 0850 Wt Readings from Last 3 Encounters: 08/24/18 108.3 kg (238 lb 12.8 oz) 07/12/16 109.3 kg (241 lb) 02/29/16 112.3 kg (247 lb 8 oz) Physical Exam: General: Well developed, well nourished, in no acute distress, oriented to person, place, and time. Skin: Warm and dry Head: Normocephalic, oral mucosa and conjunctivae normal Neck: No thyromegaly or bruits. Carotid pulses 2+ Lungs: Clear to auscultation and percussion. Respirations unlabored Cardiac: PMI and JVP normal, S1 and S2 normal, no murmur, no gallop or rub Abd: Soft, nontender, BS active, no hepatosplenomegaly or masses, no abdominal bruit or enlarged aortic pulsation Extremities: No clubbing, cyanosis. No edema. Femoral pulses 2+. Pedal pulses 2+ Musculoskeletal: Muscle strength normal. No scoliosis. Neurologic: Oriented to person, place, and time. Mood not depressed. No Known Allergies Home Medications: Prior to Admission medications Medication Sig Start Date End Date Taking? Authorizing Provider buPROPion XL (WELLBUTRIN XL) 150 mg 24 hr tablet Take 150 mg by mouth daily. Yes Historical Provider, cholecalciferol (VITAMIN D-3) 1,000 unit Take 1,000 Units by mouth daily. Yes Historical Provider, hydroCHLOROthiazide (HYDRODIURIL) 12.5 mg tablet Take 12.5 mg by mouth daily. Yes Historical Provider, pravastatin (PRAVACHOL) 40 mg tablet Take 20 mg by mouth daily. Yes Historical Provider, pramipexole (MIRAPEX) 1 mg tablet Take 0.5 mg by mouth nightly. 07/01/18 Historical Provider, Labs: Recent Labs Lab Units 08/25/18 0505 08/25/18 0052 08/24/181955 TROPONIN T ng/mL <0.01 <0.01 <0.01 Recent Labs Lab Units 08/25/18 0505 08/24/181955 SODIUM mmol/L 139 139 POTASSIUM PLASMA mmol/L 3.7 3.7 CHLORIDE mmol/L 103 102 CO2 mmol/L 25 26 BUN SERUM mg/dL 10 11 CREATININE mg/dL 0.91 0.99 LDI-TUR-CVMFAMA mL/min/1.73 m2 99 89 GLUCOSE mg/dL 110 128 CALCIUM mg/dL 9.3 9.8 ALBUMIN g/dL 4.2 4.5 Recent Labs Lab Units 08/25/18 0505 08/24/181955 ALK PHOS Units/L 92 105 BILIRUBIN TOTAL mg/dL 0.5 0.5 TOTAL PROTEIN g/dL 6.2* 7.1 ALT Units/L 38 43 AST Units/L 20 26 Recent Labs Lab Units 08/25/18 0505 08/24/181955 WBC K/cumm 5.4 6.2 HEMOGLOBIN g/dL 14.8 15.6 HEMATOCRIT % 41.5 44.0 PLATELETS K/cumm 222 231 Lab Results Component Value Date CHOL 215 (H) 02/25/2017 TRIG 344 (H) 02/25/2017 HDL 40 02/25/2017 LDL 130 (H) 07/12/2016 Lab Results Component Value Date TSH 1.58 07/12/2016 FREET4 0.86 12/14/2015 No results found for: BNP Testing: Cardiac Rhythm: Sinus bradycardia (08/25/18 0600) Xr Chest 1 Vw Portable Result Date: 08/24/2018 NO ACTIVE DISEASE. Electronically signed by: Stephan Sosa M.D. Impression: 1. Chest pain 2. Previous smoker 3. Palpitations Plan: 1. Stress echo. If no evidence for ischemia or LV dysfunction okay for discharge. Would consider changing antihypertensive agent from hydrochlorothiazide to beta-augustus. Mando Liz, 08/25/2018 8:50 AM CARDER documented in this encounter ED Notes * Kole Devries MD - 08/24/2018 7:51 PM CST HPI Chief Complaint Patient presents with ??? Shortness of Breath Chest pain 7:45 PM 08/24/2018 - Patient is a 47 y/o male former smoker with a h/o TAJ, HTN, and nicotine dependence (chews smokeless tobacco) presenting to the ED via private vehicle c/o worsening palpitations for the approximately 1 month. Patient notes that he recently has been developed some SOB and last night he experienced an episode of chest pressure like somebody was standing on me which lasted formultiple hours. He denies any known exacerbating or relieving factors. He denies any fever or chills. No cough or cold symptoms. There are no other complaints at this time. Patient History Patient Active Problem List Diagnosis Date Noted ??? Hyperlipidemia 07/12/2016 Class: Temporary ??? Essential hypertension 07/12/2016 Class: Temporary ??? Nicotine dependence 07/12/2016 Class: Temporary ??? Restless legs syndrome 12/29/2013 Class: Chronic ??? Insomnia 12/29/2013 Class: Chronic ??? Obstructive sleep apnea syndrome 07/06/2013 Class: Chronic Past Medical History: Diagnosis Date ??? Anxiety disorder Anxiety ??? Depression Depression ??? HX OTHER MEDICAL Hemorrhoids ??? HX OTHER MEDICAL hypoglycemic ??? Hypertension Hypertension Past Surgical History: Procedure Laterality Date ??? CARPAL TUNNEL RELEASE Carpal tunnel release ??? OTHER SURGICAL HISTORY Hemorrhoids: Hemorrhoidectomy ??? SHOULDER SURGERY shoulder surgery Family History Problem Relation Age of Onset ??? Throat cancer Father Cancer, throat; Social History Substance Use Topics ??? Smoking status: Former Smoker ??? Smokeless tobacco: Current User Types: Chew ??? Alcohol use Yes Social History Social History Narrative ??? No narrative on file Review of Systems Review of Systems Constitutional: Negative for chills, fatigue and fever. HENT: Negative for congestion, ear pain, rhinorrhea, sneezing and sore throat. Respiratory: Positive for shortness of breath. Negative for cough and wheezing. Cardiovascular: Positive for chest pain and palpitations. Gastrointestinal: Negative for abdominal pain, constipation, diarrhea, nausea and vomiting. Musculoskeletal: Negative for arthralgias, back pain and neck pain. Skin: Negative for rash and wound. Neurological: Negative for dizziness, syncope, weakness, light-headedness and headaches. All other systems reviewed and are negative. Physical Exam ED Triage Vitals Temp Pulse Resp BP SpO2 08/24/18200008/24/18195308/24/18200008/24/18195308/24/181999 37 ??C (98.6 ??F) 78 18 144/95 97 % Temp src Heart Rate Source Patient Position BP Location FiO2 (%) 08/24/182000 -- 08/24/18202908/24/182029 -- Temporal Lying Left arm Physical Exam Constitutional: He is oriented to person, place, and time. He appears well- developed and well-nourished. No distress. HENT: Head: Normocephalic and atraumatic. Eyes: Conjunctivae and EOM are normal. Neck: Normal range of motion. Neck supple. Cardiovascular: Normal rate, regular rhythm, normal heart sounds and intact distal pulses. Exam reveals no gallop and no friction rub. No murmur heard. Pulmonary/Chest: Effort normal and breath sounds normal. No respiratory distress. He has no wheezes. He has no rales. Musculoskeletal: Normal range of motion. He exhibits no edema, tenderness or deformity. Neurological: He is alert and oriented to person, place, and time. Skin: Skin is warm and dry. Capillary refill takes less than 2 seconds. No rash noted. No erythema.No pallor. Psychiatric: He has a normal mood and affect. His behavior is normal. Nursing note and vitals reviewed. MDM MDM Labs Reviewed COMPREHENSIVE METABOLIC PANEL Result Value Sodium 139 Potassium, pl 3.7 Chloride 102 CO2 26 Anion Gap 11 BUN 11 Creatinine 0.99 Glucose 128 Calcium 9.8 Bilirubin, total 0.5 Protein, pl 7.1 Albumin 4.5 Alk phos 105 ALT 43 AST 26 Narrative: CBC WITH AUTO DIFFERENTIAL WBC 6.2 Hgb 15.6 Hct 44.0 Plt 231 MPV 9.7 RBC 4.87 MCV 90.3 MCH 32.0 MCHC 35.5 RDW CV 11.9 RDW SD 38.9 NRBC Abs 0.00 Narrative: PRO B-TYPE NATRIURETIC PEPTIDE NT-proBNP 14 Narrative: TROPONIN T Troponin T <0.01 Narrative: DIFFERENTIAL AUTO Neutrophil absolute 3.5 Immature granulocyte absolute 0.1 Lymphocytes absolute 1.9 Monocyte absolute 0.5 Eosinophils absolute 0.2 Basophils, abs 0.1 Neutrophils 56.1 Immature granulocytes 1.0 Lymphocytes 31.1 Monocytes 7.9 Eosinophils 2.9 Basophils 1.0 Narrative: EGFR GFR 89 Narrative: XR Chest 1 Vw Portable Final Result NO ACTIVE DISEASE. Electronically signed by: Stephan Sosa M.D. BP 134/95 Pulse 80 Temp 37 ??C (98.6 ??F) (Temporal) Resp 16 Ht 188 cm (6' 2 ) Wt 112.5 kg (248 lb) SpO2 96% BMI 31.84 kg/m?? ED Course as of Aug 24 2122 Time: 08/24 1957 Comment: Pre-hypertension/Hypertension: The patient has been informed that they may have pre-hypertension or Hypertension based on a blood pressure reading in the Emergency Department. I recommend that the patient call the primary care provider listed on their discharge instructions or a physician of their choice this week to arrange follow up for further evaluation of possible pre- hypertension or Hypertension. By: Darcy Man Time: 08/24 2107 Comment: Discussed patient's case with Dr. Garcia, [facility], who accepts the patient for admission. By: Darcy Man Chest pain due to myocardial ischemia, unspecified ischemic chest pain type 7:51 PM: This note is prepared by Darcy Man, acting as a scribe for Kole Devries MD. I electronically signed this note at 7:51 PM on 08/24/2018. I, Kole Devries MD, have personally performed the services described in the documentation, reviewed the documentation, as recorded by the scribe in my presence, and it accurately and completely records my words and actions. Kole Devries MD 08/24/182121 CARDER * Digna Rushing RN - 08/24/2018 7:45 PM CST 47 yr old male arrives to the ED with complaints of shortness of breath and chest pain. Pt states, I feel like my heart is beating out of my chest . Pt reported feeling extremely tired in the last month. Pt reported having chest pain yesterday. Pt denies chest pain at this time. No nausea or vomiting reported. Denies any diaphoresis. CARDER documented in this encounter Miscellaneous Notes * Plan of Care - Violet Salguero RN - 08/25/2018 5:58 PM CST Goals: Clinical Goals for the Shift: patient will have no chest pain and will remain hemodynamically stable Summary: discharged home in stable condition with all belongings. Patient walked out with staff. CARDER * Plan of Care - Arcelia Hand RN - 08/25/2018 5:42 AM CST Goals: Clinical Goals for the Shift: VSS, labs within normal, no chest pain Summary: Had good night, rested for long intervals when left undisturbed. Voiced no C/O chest pain or SOB Monitoring SB-SR. Medicated X1 for C/O headache. Cont to monitor labs. CARDER documented in this encounter Plan of Treatment Not on file documented as of this encounter Procedures Procedure Name Priority Date/Time Associated Diagnosis Comments D-DIMER, QUANTITATIVE STAT 08/25/2018 2:38 PM WOOL CARDER STRESS ECHO EXERCISE WO DOPPLER/CF WO CONTRAST Routine 08/25/2018 1:55 PM WOOL CARDER ECG 12-LEAD STAT 08/25/2018 5:30 AM WOOL CARDER EGFR Routine 08/25/2018 5:05 AM WOOL CARDER DIFFERENTIAL AUTO Routine 08/25/2018 5:0 5 AM WOOL CARDER CBC WITH AUTO DIFFERENTIAL Routine 08/25/2018 5:05 AM WOOL CARDER TROPONIN T Timed 08/25/2018 5:05 AM WOOL CARDER COMPREHENSIVE METABOLIC PANEL Routine 08/25/2018 5:05 AM WOOL CARDER HEMOGLOBIN A1C STAT 08/25/2018 5:04 AM WOOL CARDER LIPID PANEL STAT 08/25/2018 5:04 AM WOOL CARDER TROPONIN T Timed 08/25/2018 12:52 AM WOOL CARDER XR CHEST 1 VIEW ED 08/24/2018 8:19 PM WOOL CARDER EGFR STAT 08/24/2018 7:56 PM WOOL CARDER DIFFERENTIAL AUTO STAT 08/24/2018 7:5 6 PM WOOL CARDER PRO B-TYPE NATRIURETIC PEPTIDE STAT 08/24/2018 7:56 PM WOOL CARDER CBC WITH AUTO DIFFERENTIAL STAT 08/24/2018 7:56 PM WOOL CARDER TROPONIN T STAT 08/24/2018 7:56 PM WOOL CARDER COMPREHENSIVE METABOLIC PANEL STAT 08/24/2018 7:56 PM WOOL CARDER ECG 12-LEAD STAT 08/24/2018 7:49 PM WOOL CARDER documented in this encounter Results * Event Monitor - Loop 30 Day (08/29/2018 1:19 PM WOOL CARDER) Anatomical Region Laterality Modality Electrocardiogra phy 09/25/2018 Narrative 09/25/2018 12:52 PM WOOL CARDER [address] [place] [address] EVENT MONITOR Patient Name: JADEN CLEMENT : 1970 Study Date: 09/25/2018 00:00:00 Gender: M Tech: Ref.Provider: LETI WINCHETSER Height(Cm): BSA: Weight(Kg): Order Provider: LETI WINCHESTER Procedures: Event Report: Event Monitor Report. [...] Signed By: Dr Mando Liz 2018-09-25 12:52:47 WOOL CARDER Procedure Note Mando Liz, DO - 09/25/[address] [place] [address] EVENT MONITOR Patient Name: ALLISON CLEMENTatient ID: [id number] : [id number] Date: 09/25/2018 00:00:00 Gender: MAccession #: [id number] Tech: Ref.Provider: LETI WINCHESTER Height(Cm): BSA: Weight(Kg): Order Provider: LETI WINCHESTER Procedures: Event Report: Event Monitor Report. [...] Signed By: Dr Mando Liz 2018-09-25 12:52:47 WOOL CARDER Leti Winchester MD CV CARDIAC SERVICES PROC EDURES Final Result * (ABNORMAL) D-dimer, quantitative (08/25/2018 2:38 PM WOOL CARDER) D-dimer <150(L) 150 - 230 ng/mL D-DU [facility] Comment: Interpretive Data This D-dimer test is approved by the FDA to exclude suspected PE and DVT in outpatients when the result is <230 ng/mL in conjunction with a pre-test probability score of low or moderate using the Wells criteria. Current Interpretive Data was last revised on 2015. Blood specimen (specimen) 08/25/2018 2:38 PM WOOL CARDER 08/25/2018 2:54 PM WOOL CARDER Narrative [facility] - 08/25/2018 3:17 PM WOOL CARDER Patient in stress test 08/25/2018 13:59:19 WOOL CARDER Leti Winchester MD LAB BLOOD ORDERABLES Fin al Result [facility] [address] [place] [address] Department [place] [address] * STRESS ECHO EXERCISE WO DOPPLER/CF WO CONTRAST (08/25/2018 1:55 PM WOOL CARDER) Anatomical Region Laterality Modality Nuclear Medicine 08/25/2018 12:5 6 PM WOOL CARDER Narrative 08/25/2018 4:00 PM WOOL CARDER [address] [place] [address] Stress Echocardiogram Report Patient Name: JADEN CLEMENT : 1970 Study Date: 08/25/2018 12:56:26 Gender: M 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 Indications: Angina. Findings: Stress Echo: Predicted Maximal HR 171 bpm. Resting ECG: Normal EKG. Exercise ECG: Normal exercise ECG. Resting LV Function: Normal left ventricular size and systolic function with normal wall thickness. Post Stress LV Function: Hyperdynamic global contractility, no segmental wall motion abnormality, chamber size smaller. Conclusions: Adequate stress test in regards to heart rate. No exercise induced chest pain. No definite ischemia on stress EKG. No Echocardiographic evidence of ischemia. Electronically Signed By: Dr Anoop Pablo 2018-08-25 16:00:22 WOOL CARDER Procedure Note Anoop Pablo MD - 08/25/[address] [address] Stress Echocardiogram Report Patient Name: Sherie CLEMENTent ID: [id number] : [id number] Date: 08/25/2018 12:56:26 Gender: MAccession #: [id number] Tech: NPLocation: [id number] Ref.Provider: LETI WINCHESTERHeight(Cm): 188 BSA: Weight(Kg): 112.49 Quality: Good Procedures: Stress Echo Report: Treadmill stress echocardiogram. Indications: Angina. Findings: Stress Echo: Predicted Maximal HR 171 bpm. Resting ECG: Normal EKG. Exercise ECG: Normal exercise ECG. Resting LV Function: Normal left ventricular size and systolic function with normal wallthickness. Post Stress LV Function: Hyperdynamic global contractility, no segmental wall motion abnormality,chamber size smaller. Conclusions: Adequate stress test in regards to heart rate. No exercise induced chest pain. No definite ischemia on stress EKG. No Echocardiographic evidence of ischemia. Electronically Signed By: Dr Anoop Pablo 2018-08-25 16:00:22 WOOL CARDER us Leti Winchester MD CV ECHO PROCEDURES Final Result * ECG 12 lead (08/25/2018 5:30 AM WOOL CARDER) 08/25/2018 5:30 AM WOOL CARDER Narrative [facility] - 08/28/2018 11:40 AM WOOL CARDER Vent Rate: 54 bpm RR Interval: 1097 msec LA Interval: 169 msec QRS Duration: 99 msec QT Interval: 443 msec QTC Interval: 430 msec P-R-T [place]: 48 - 2 - 1 degrees SINUS BRADYCARDIA J-POINT AND ST ELEVATION SUGGESTS EARLY REPOLARIZATION Consider also pericarditis or injury Clinical correlation advised Electronically Signed By: Rogers King MD us Kole Devries MD ECG ORDERABLES Final R esult [facility] * eGFR (08/25/2018 5:05 AM WOOL CARDER) eGFR 99 mL/min/1.7 3 m2 [facility] Comment: Interpretive Data Reference Interval Normal ?>/= 90 mL/min/1.73m2 Mildly decreased* ? 60 - 89 mL/min/1.73m2 Mildly to moderately decreased ?45 - 59 mL/min/1.73m2 Moderately to severely decreased ??30 - 44 mL/min/1.73m2 Severely decreased ?15 - 29 mL/min/1.73m2 Kidney Failure ?< 15 ??mL/min/1.73m2 *Relative to young adult level If -[place] multiply value by 1.16. Estimated glomerular filtration [...] was last reviewed 2016. Blood specimen (specimen) 08/25/2018 5:05 AM WOOL CARDER 08/25/2018 5:22 AM WOOL CARDER Narrative [facility] - 08/25/2018 5:58 AM WOOL CARDER Kole Devries MD LAB BLOOD ORDERABLES [facility] Result [facility] [address] [facility] Department [place] [address] * Differential, auto (08/25/2018 5:05 AM WOOL CARDER) Neutrophil abs 2.7 1.7 - 6.5 K/cumm [facility]) Imm gran abs 0.1 0.0 - 0.1 K/cumm [facility]) Lymphocyte abs 1.9 0.8 - 3.3 K/cumm [facility]) Monocyte abs 0.5 0.2 - 0.8 K/cumm [facility]) Eosinophil abs 0.2 0.0 - 0.5 K/cumm [facility]) Basophil abs 0.1 0.0 - 0.1 K/cumm [facility]) Neutrophil pct 50.0 % [facility] Comment: Interpretive Data Percent cell count reference ranges are not reported, since discordance with absolute values may lead to misinterpretation of CBC data. Current Interpretive Data was last revised on 2017. Imm gran pct 1.3 % [facility] Comment: Interpretive Data Percent cell count reference ranges are not reported, since discordance with absolute values may lead to misinterpretation of CBC data. Current Interpretive Data was last revised on 2017. Lymphocyte pct 34.2 % [facility] Comment: Interpretive Data Percent cell count reference ranges are not reported, since discordance with absolute values may lead to misinterpretation of CBC data. Current Interpretive Data was last revised on 2017. Monocyte pct 9.2 % [facility] Comment: Interpretive Data Percent cell count reference ranges are not reported, since discordance with absolute values may lead to misinterpretation of CBC data. Current Interpretive Data was last revised on 2017. Eosinophil pct 4.2 % [facility] Comment: Interpretive Data Percent cell count reference ranges are not reported, since discordance with absolute values may lead to misinterpretation of CBC data. Current Interpretive Data was last revised on 2017. Basophil pct 1.1 % [facility] Comment: Interpretive Data Percent cell count reference ranges are not reported, since discordance with absolute values may lead to misinterpretation of CBC data. Current Interpretive Data was last revised on 2017. Blood specimen (specimen) 08/25/2018 5:05 AM WOOL CARDER 08/25/2018 5:22 AM WOOL CARDER Narrative [facility] - 08/25/2018 5:25 AM WOOL CARDER us Kole Devries MD LAB BLOOD ORDERABLES Fi nal Result [facility] [address] [facility] Department [place] [address] * Troponin T (08/25/2018 5:05 AM WOOL CARDER) Troponin T <0.01 0.00 - 0.01 ng/mL [facility] Comment: Interpretive Data Reference ranges for children <18 years of age have not been established. - > or = 18 years: Serial determinations are recommended for the diagnosis of myocardial infarction. ??Temporal rise and fall are consistent with myocardial infarction when at least one value is above the 99th percentile upper reference limit for troponin assay. ??Journal of the [place] College of Cardiology 2012;60:1581-98. Current Interpretive Data Last Revised Date: 2018. Blood specimen (specimen) 08/25/2018 5:05 AM WOOL CARDER 08/25/2018 5:22 AM WOOL CARDER Narrative [facility] - 08/25/2018 6:56 AM WOOL CARDER us Kole Devries MD LAB BLOOD ORDERABLES nal Result [facility] [address] [facility] Department [place] [address] * (ABNORMAL) Comprehensive metabolic panel (08/25/2018 5:05 AM WOOL CARDER) Sodium 139 135 - 145 mmol/L [facility] Potassium, pl 3.7 3.3 - 4.9 mmol/L [facility] Chloride 103 97 - 110 mmol/L [facility] CO2 25 22 - 32 mmol/L [facility] Anion gap 11 2 - 15 mmol/L [facility] BUN 10 8 - 25 mg/dL [facility] Creatinine 0.91 0.80 - 1.30 mg/dL [facility] Glucose 110 70 - 199 mg/dL [facility] [...] 1.2 mg/dL [facility] Protein, pl 6.2(L) 6.5 - 8.5 g/dL [facility] Albumin 4.2 3.5 - 5.0 g/dL [facility] Alk phos 92 40 - 130 Units/L [facility] ALT 38 7 - 55 Units/L [facility] AST 20 10 - 50 Units/L [facility] Blood specimen (specimen) 08/25/2018 5:05 AM WOOL CARDER 08/25/2018 5:22 AM WOOL CARDER Narrative [facility] - 08/25/2018 5:58 AM WOOL CARDER Kole Devries MD LAB BLOOD ORDERABLES Fi nal Result [facility] [address] [facility] Department [place] [address] * CBC with auto differential (08/25/2018 5:05 AM WOOL CARDER) WBC 5.4 3.8 - 9.9 K/cumm [facility] Hgb 14.8 13.0 - 17.5 g/dL [facility] Hct 41.5 38.9 - 50.3 % [facility] Plt 222 150 - 400 K/cumm [facility]) MPV 9.9 9.1 - 12.3 fL [facility] RBC 4.60 4.30 - 5.80 M/cumm [facility] MCV 90.2 81.3 - 96.4 fL [facility] MCH 32.2 27.1 - 33.3 pg [facility] MCHC 35.7 32.3 - 35.7 g/dL [facility] RDW CV 12.0 11.1 - 14.9 % [facility] RDW SD 39.5 35.7 - 48.1 fL [facility] NRBC abs 0.00 0.00 - 0.01 K/cumm [facility]) Blood specimen (specimen) 08/25/2018 5:05 AM WOOL CARDER 08/25/2018 5:22 AM WOOL CARDER Narrative [facility] - 08/25/2018 5:25 AM WOOL CARDER Kole Dervies MD LAB BLOOD ORDERABLES Fi nal Result Performing Organization Address City/[facility]/ZIP Co de Phone Number [facility] [address] [place] [address] * Hemoglobin A1c (08/25/2018 5:04 AM WOOL CARDER) Hgb A1C 5.1 4.0 - 5.6 % [facility] Estimated Average Glucose 100 mg/dL [facility] Comment: The ADA recommends reporting an estimated Average Glucose (eAG) with all Hemoglobin A1c results using the equation derived from a study of 507 normal and diabetic adults. ??Minority populations were underrepresented and children were not included. ?? (Diabetes Care 31:6435-1113, 2008). ??The eAG is not equivalent to a fasting glucose. Blood specimen (specimen) 08/25/2018 5:04 AM WOOL CARDER 08/25/2018 2:02 PM WOOL CARDER Narrative [facility] - 08/25/2018 2:15 PM WOOL CARDER Leti Winchester MD LAB BLOOD ORDERABLES Fin al Result Performing Organization Address [facility] Co de Phone Number [facility] [address] [facility] [place] [place] [address] * (ABNORMAL) Lipid panel (08/25/2018 5:04 AM WOOL CARDER) Cholesterol 168 30 - 199 mg/dL [facility] Comment: Interpretive Data Ages < or = [...] Data was last revised on 2018. Triglycerides 271(H) <=149 mg/dL [facility] Comment: Interpretive [...] Data was last revised on 2018. HDL 35(L) >=40 mg/dL [facility] Comment: Interpretive [...] was last revised on 2018. LDL, calculated 79 <=129 mg/dL [facility] Comment: Interpretive [...] was last revised on 2018. Non-HDL Cholesterol 133 mg/dL [facility] Comment: Interpretive Data [...] 5 [facility]) Blood specimen (specimen) 08/25/2018 5:04 AM WOOL CARDER 08/25/2018 2:00 PM WOOL CARDER Narrative [facility] - 08/25/2018 2:12 PM WOOL CARDER us Leti Winchester MD LAB BLOOD ORDERABLES Fin al Result [facility] [address] [facility] Department [place] [address] * Troponin T (08/25/2018 12:52 AM WOOL CARDER) Troponin T <0.01 0.00 - 0.01 ng/mL [facility] Comment: Interpretive Data Reference ranges for children <18 years of age have not been established. - > or = 18 years: Serial determinations are recommended for the diagnosis of myocardial infarction. ??Temporal rise and fall are consistent with myocardial infarction when at least one value is above the 99th percentile upper reference limit for troponin assay. ??Journal of the [place] College of Cardiology 2012;60:1581-98. Current Interpretive Data Last Revised Date: 2018. Blood specimen (specimen) 08/25/2018 12:52 AM WOOL CARDER 08/25/2018 12:56 AM WOOL CARDER Narrative [facility] - 08/25/2018 1:17 AM WOOL CARDER Kole Devries MD LAB BLOOD ORDERABLES Fi nal Result [facility] [address] [facility] Department [place] [address] * XR Chest 1 Vw Portable (08/24/2018 8:19 PM WOOL CARDER) Anatomical Region Laterality Modality Body, Chest N/A Computed Radiogr aphy 08/24/2018 8:51 PM WOOL CARDER Impressions 08/24/2018 8:53 PM WOOL CARDER NO ACTIVE DISEASE. Electronically signed by: Setphan Sosa M.D. Narrative 08/24/2018 8:53 PM WOOL CARDER XR CHEST 1 VIEW HISTORY: Shortness of breath. ??Tachycardia. COMPARISON: None available. FINDINGS: Heart size is normal. ??Lungs are clear. ??Distal right clavicle has been resected. Procedure Note Stephan Sosa MD - 08/24/2018 XR CHEST 1 VIEW HISTORY: Shortness of breath. Tachycardia. COMPARISON: None available. FINDINGS: Heart size is normal. Lungs are clear. Distal right clavicle has been resected. IMPRESSION: NO ACTIVE DISEASE. Electronically signed by: Stephan Sosa M.D. us Kole Devries MD IMG XR PROCEDURES Final Result * eGFR (08/24/2018 7:56 PM WOOL CARDER) eGFR 89 mL/min/1.7 3 m2 [facility] Comment: Interpretive Data Reference Interval Normal ?>/= 90 mL/min/1.73m2 Mildly decreased* ? 60 - 89 mL/min/1.73m2 Mildly to moderately decreased ?45 - 59 mL/min/1.73m2 Moderately to severely decreased ??30 - 44 mL/min/1.73m2 Severely decreased ?15 - 29 mL/min/1.73m2 Kidney Failure ?< 15 ??mL/min/1.73m2 *Relative to young adult level If -[place] multiply value by 1.16. Estimated glomerular filtration [...] was last reviewed 2016. Blood specimen (specimen) 08/24/2018 7:56 PM WOOL CARDER 08/24/2018 8:01 PM WOOL CARDER Narrative [facility] - 08/24/2018 8:20 PM WOOL CARDER us Kole Devries MD LAB BLOOD ORDERABLES Fi nal Result [facility] [address] [facility] Department [place] [address] * Differential, auto (08/24/2018 7:56 PM WOOL CARDER) Neutrophil abs 3.5 1.7 - 6.5 K/cumm [facility] Imm gran abs 0.1 0.0 - 0.1 K/cumm [facility]) Lymphocyte abs 1.9 0.8 - 3.3 K/cumm [facility]) Monocyte abs 0.5 0.2 - 0.8 K/cumm [facility]) Eosinophil abs 0.2 0.0 - 0.5 K/cumm [facility]) Basophil abs 0.1 0.0 - 0.1 K/cumm [facility] Neutrophil pct 56.1 % [facility] Comment: Interpretive [...] was last revised on 2017. Lymphocyte pct 31.1 % [facility] Comment: Interpretive Data Percent cell count reference ranges are not reported, since discordance with absolute values may lead to misinterpretation of CBC data. Current Interpretive Data was last revised on 2017. Monocyte pct 7.9 % [facility] Comment: Interpretive Data Percent cell count reference ranges are not reported, since discordance with absolute values may lead to misinterpretation of CBC data. Current Interpretive Data was last revised on 2017. Eosinophil pct 2.9 % [facility] Comment: Interpretive [...] last revised on 2017. Blood specimen (specimen) 08/24/2018 7:56 PM WOOL CARDER 08/24/2018 8:01 PM WOOL CARDER Narrative [facility]) - 08/24/2018 8:03 PM WOOL CARDER Kole Devries MD LAB BLOOD ORDERABLES Fi nal Result Performing Organization Address [facility] Co de Phone Number [facility] [address] [facility] [employer] [place] [address] * Troponin T (08/24/2018 7:56 PM WOOL CARDER) Troponin T <0.01 0.00 - 0.01 ng/mL [facility] Comment: Interpretive Data Reference ranges for children <18 years of age have not been established. - > or = 18 years: Serial determinations are recommended for the diagnosis of myocardial infarction. ??Temporal rise and fall are consistent with myocardial infarction when at least one value is above the 99th percentile upper reference limit for troponin assay. ??Journal of the [place] College of Cardiology 2012;60:1581-98. Current Interpretive Data Last Revised Date: 2018. Blood specimen (specimen) 08/24/2018 7:56 PM WOOL CARDER 08/24/2018 8:01 PM WOOL CARDER Narrative [facility]) - 08/24/2018 8:47 PM WOOL CARDER Kole Devries MD LAB BLOOD ORDERABLES Fi nal Result Performing Organization Address [facility] Co de Phone Number [facility] [address] [facility] [employer] [place] [address] * Pro B-type natriuretic peptide (08/24/2018 7:56 PM WOOL CARDER) NT-proBNP 14 <=300 pg/mL [facility] Comment: Interpretive Comments: A. Dyspnea in Acute Care Setting All Ages: ??< 300 pg/ml, acute heart failure unlikely < 50 yrs: ??> or = 300 pg/ml and < or = 450 pg/ml, further investigation warranted ??> 450 pg/ml, acute heart failure likely 50 - 74 yrs > or = 300 pg/ml and < or = 900 pg/ml, further investigation warranted ??> 900 pg/ml, acute heart failure likely > or = 75 yrs 450 - 1800 pg/ml, further investigation warranted ??> 1800 pg/ml, acute heart failure likely B. Non-acute Setting < 75 yrs ??< 125 pg/ml, rules out heart failure ??> or = 125 pg/ml, further investigation warranted > or = 75 yrs < 450 pg/ml, rules out heart failure ??> or = 450 pg/ml, further investigation warranted Knowledge of each individual patient's NT-proBNP range may be more useful than using similar cut-points for every patient. Please note that marked elevations in NT-proBNP levels may be observed in state other than Left Ventricular Congestive Failure, including: acute coronary syndromes, right heart strain/failure (including pulmonary embolism and cor pulmonale), critial illness, renal failure, as well as advanced age. References: 1. Brady LEACH et.al. Eur Heart J. 2006:27:330-337. 2. Emilee RW, Pippa BAILEY. J. AM Lux Cardiol: Cardiovasc Imag. 2009;2: 216- 225. Interpretive Data Last Revised Date: 2018. Blood specimen (specimen) 08/24/2018 7:56 PM WOOL CARDER 08/24/2018 8:01 PM WOOL CARDER Narrative [facility] - 08/24/2018 8:30 PM WOOL CARDER Kole Devries MD LAB BLOOD ORDERABLES Fi nal Result [facility] 1 [facility] Department [place] [address] * CBC with auto differential (08/24/2018 7:56 PM WOOL CARDER) WBC 6.2 3.8 - 9.9 K/cumm [facility]) Hgb 15.6 13.0 - 17.5 g/dL [facility]) Hct 44.0 38.9 - 50.3 % [facility] Plt 231 150 - 400 K/cumm [facility]) MPV 9.7 9.1 - 12.3 fL [facility] RBC 4.87 4.30 - 5.80 M/cumm [facility]) MCV 90.3 81.3 - 96.4 fL [facility]) MCH 32.0 27.1 - 33.3 pg [facility] MCHC 35.5 32.3 - 35.7 g/dL [facility] RDW CV 11.9 11.1 - 14.9 % [facility] RDW SD 38.9 35.7 - 48.1 fL [facility] NRBC abs 0.00 0.00 - 0.01 K/cumm [facility] Blood specimen (specimen) 08/24/2018 7:56 PM WOOL CARDER 08/24/2018 8:01 PM [facility] C[facility]ER Narrative [facility] - 08/24/2018 8:03 PM WOOL CARDER us Kole Devries MD LAB BLOOD ORDERABLES nal Result [facility]) 1 [facility] Department [place] [address] * Comprehensive metabolic panel (08/24/2018 7:56 PM WOOL CARDER) Sodium 139 135 - 145 mmol/L [facility] Potassium, pl 3.7 3.3 - 4.9 mmol/L [facility] Chloride 102 97 - 110 mmol/L [facility] CO2 26 22 - 32 mmol/L [facility] Anion gap 11 2 - 15 mmol/L [facility] BUN 11 8 - 25 mg/dL [facility] Creatinine 0.99 0.80 - 1.30 mg/dL [facility] Glucose 128 70 - 199 mg/dL [facility] Comment: Interpretive Data Fasting glucose [...] 1.2 mg/dL [facility] Protein, pl 7.1 6.5 - 8.5 g/dL [facility] Albumin 4.5 3.5 - 5.0 g/dL [facility] Alk phos 105 40 - 130 Units/L [facility] ALT 43 7 - 55 Units/L [facility] AST 26 10 - 50 Units/L [facility] Comment: Hemolysis present. ??Results may be affected. Slightly Hemolyzed Specimen Blood specimen (specimen) 08/24/2018 7:56 PM WOOL CARDER 08/24/2018 8:01 PM WOOL CARDER Narrative [facility] ([facility]) - 08/24/2018 8:20 PM WOOL CARDER us Kole Devries MD LAB BLOOD ORDERABLES Fi nal Result [facility] ([facility] 1 [facility] Department [place] [address] * ECG 12 lead (08/24/2018 7:49 PM WOOL CARDER) 08/24/2018 7:49 PM WOOL CARDER Narrative [facility] - 08/28/2018 12:42 PM WOOL CARDER Vent Rate: 82 bpm RR Interval: 725 msec LA Interval: 140 msec QRS Duration: 112 msec QT Interval: 380 msec QTC Interval: 419 msec P-R-T [place]: 38 - 8 - 32 degrees SINUS RHYTHM MODERATE INTRAVENTRICULAR CONDUCTION DELAY ??[110+ ms QRS DURATION] BORDERLINE ECG Electronically Signed By: Rogers King MD us Kole Devries MD ECG ORDERABLES Final R esult [facility] documented in this encounter Visit Diagnoses Diagnosis Chest pain due to myocardial ischemia, unspecified ischemic chest pain type- Primary Palpitation Palpitations Chest pain due to myocardial ischemia Palpitation Palpitations Palpitation Palpitations documented in this encounter Administered Medications Inactive Administered Medications - up to 3 most recent administrations Medication Order MAR Action Action Date Dose Rate Site acetaminophen (TYLENOL) tablet 650 mg 650 mg, oral, Every 4 hours PRN, 1st line for pain, fever, fever greater than 38.3 C, Starting on 08/24/18 at 2157, Indications: Fever, PainIndications:Fever,Pain Given 08/25/2018 5:06 AM WOOL CARDER 650 mg Given 08/24/2018 10:49 PM WOOL CARDER 650 mg aspirin chewable tablet 324 mg 324 mg, oral, Once, On 08/24/18 at 1952, For 1 dose Given 08/24/2018 7:54 PM WOOL CARDER 324 mg aspirin chewable tablet 81 mg 81 mg, oral, Daily, First dose on Sat08/25/18 at 0900 Given 08/25/2018 2:48 PM WOOL CARDER 81 mg atorvastatin (LIPITOR) tablet 10 mg 10 mg, oral, Daily, First dose on Sat08/25/18 at 1500, This therapy was substituted for pravastatin 20 mg daily per protocol. Given 08/25/2018 2:54 PM WOOL CARDER 10 mg buPROPion XL (WELLBUTRIN XL) 24 hour tablet 150 mg 150 mg, oral, Daily, First dose on Sat08/25/18 at 1500, Do not crush, chew, cut, dissolve, open or otherwise manipulate tablet/capsule. Given 08/25/2018 2:49 PM WOOL CARDER 150 mg cholecalciferol (VITAMIN D-3) tablet/capsule 1,000 Units 1,000 Units, oral, Daily, First dose on Sat08/25/18 at 1500 Given 08/25/2018 2:49 PM WOOL CARDER 1,000 Units enoxaparin (LOVENOX) syringe 40 mg 40 mg, subcutaneous, Daily (for enoxaparin), First dose on 08/24/18 at 2230, Indications: Deep Vein Thrombosis PreventionIndications:De ep Vein Thrombosis Prevention Given 08/24/2018 10:50 PM WOOL CARDER 40 mg Right Upper Abdomen famotidine (PEPCID) tablet 20 mg 20 mg, oral, Daily, First dose on 08/25/18 at 1500 Given 08/25/2018 2:49 PM WOOL CARDER 20 mg metoprolol (LOPRESSOR) tablet 25 mg 25 mg, oral, 2 times daily, First dose on 08/24/18 at 2230 Given 08/25/2018 2:49 PM WOOL CARDER 25 mg metoprolol (LOPRESSOR) tablet 50 mg 50 mg, oral, Once, On 08/24/18 at 1952, For 1 dose Given 08/24/2018 7:55 PM WOOL CARDER 50 mg nitroglycerin (NITRO-BID) 2 % ointment 1 inch 1 inch, topical, Administer over 5 Hours, Once, On 08/24/18 at 2230, For 1 dose, Apply to chest or back with the applicator or dose-measuring paper. Wear gloves to apply to affected area. Wipe clean prior to reapplying next dose. May cover with a non-occlusive dressing. , Apply to affected area: other Medication Applied 08/24/2018 10:49 PM WOOL CARDER 1 inch Right Deltoid ondansetron (ZOFRAN) injection 4 mg 4 mg, intravenous, Administer over 2 Minutes, Every 6 hours PRN, nausea, vomiting, if not tolerating PO, Starting on 08/24/18 at 2157, Indications: Nausea and VomitingIndications:Naus ea and Vomiting ondansetron ODT (ZOFRAN-ODT) disintegrating tablet 4 mg 4 mg, oral, Every 6 hours PRN, nausea, vomiting, Starting on 08/24/18 at 2157, Indications: Nausea and VomitingIndications:Naus ea and Vomiting documented in this encounter Discontinued Medications Medication Sig Discontinue Reason Start Date End Da te pramipexole (MIRAPEX) 0.25 mg tablet Take 1 tab at night 1-2 hours before bedtime. Duplicate order 07/05/2015 08/24/2018 ALPRAZolam (XANAX) 0.25 mg tablet take 1 tablet by oral route 2 times every day prn anxiety Therapy completed 12/14/2015 08/24/2018 buPROPion XL (WELLBUTRIN XL) 150 mg 24 hr tablet take 1 tablet by oral route every day Dose adjustment 12/14/2015 08/24/2018 cholecalciferol (VITAMIN D-3) 1,000 unit capsule Take 1 capsule by mouth daily. Dose adjustment 07/13/2016 08/24/2018 hydroCHLOROthiazide (HYDRODIURIL) 12.5 mg tablet TAKE 1 TABLET BY ORAL ROUTE EVERY DAY Dose adjustment 12/16/2015 08/24/2018 pravastatin (PRAVACHOL) 40 mg tabletIndications:hype rlipidemia Take 20 mg by mouth daily. 08/25/2018 hydroCHLOROthiazide (HYDRODIURIL) 12.5 mg tablet Take 12.5 mg by mouth daily. Stop Taking at Discharge 08/25/2018 documented as of this encounter Historical Medications * This list may reflect changes made after this encounter. hydroCHLOROthiazi de (HYDRODIURIL) 12.5 mg tablet Take 12.5 mg by mouth daily. 08/25/2018 cholecalciferol (VITAMIN D-3) 1,000 unit Take 1,000 Units by mouth daily. 10/20/2018 buPROPion XL (WELLBUTRIN XL) 150 mg 24 hr tablet Take 150 mg by mouth daily. 10/20/2018 pramipexole (MIRAPEX) 1 mg tablet Take 0.5 mg by mouth nightly. 07/01/2018 10/20/2018 pravastatin (PRAVACHOL) 40 mg tabletIndications :hyperlipidemia Take 20 mg by mouth daily. 08/25/2018 added in this encounter Active and Recently Administered Medications Times are shown in WOOL CARDER. Scheduled Medication Order 08/23/2018 08/24/2018 08/25/2018 aspirin chewable tablet 324 mg (COMPLETED) 324 mg, oral, Once, On 08/24/18 at 1952, For 1 dose 1953 (Given - Provider: Digna Rushing RN) aspirin chewable tablet 81 mg 81 mg, oral, Daily, First dose on 08/25/18 at 0900 1448 (Given - Provid er: Violet Salguero, TERESO) atorvastatin (LIPITOR) tablet 10 mg 10 mg, oral, Daily, First dose on 08/25/18 at 1500, This therapy was substituted for pravastatin 20 mg daily per protocol. 1454 (Given - Provid er: Violet Salguero RN) buPROPion XL (WELLBUTRIN XL) 24 hour tablet 150 mg 150 mg, oral, Daily, First dose on Sat08/25/18 at 1500, Do not crush, chew, cut, dissolve, open or otherwise manipulate tablet/capsule. 1449 (Given - Provid er: Violet Salguero RN) cholecalciferol (VITAMIN D-3) tablet/capsule 1,000 Units 1,000 Units, oral, Daily, First dose on Sat08/25/18 at 1500 1449 (Given - Provid er: Violet Salguero RN) enoxaparin (LOVENOX) syringe 40 mg 40 mg, subcutaneous, Daily (for enoxaparin), First dose on 08/24/18 at 2230, Indications: Deep Vein Thrombosis Prevention 2250 (Given - Provider: Arcelia Hand RN) famotidine (PEPCID) tablet 20 mg 20 mg, oral, Daily, First dose on Sat08/25/18 at 1500 1449 (Given - Provid er: Violet Salguero RN) metoprolol (LOPRESSOR) tablet 25 mg 25 mg, oral, 2 times daily, First dose on 08/24/18 at 2230 0404 (Not Given - Provider: Arcelia Hand RN - Reason: Other - Comment: given in ER, Stress test in am)144 (Given - Provider: Violet Salguero RN) metoprolol (LOPRESSOR) tablet 50 mg (COMPLETED) 50 mg, oral, Once, On 08/24/18 at 195, For 1 dose 1954 (Given - Provider: Digna Rushing RN) nitroglycerin (NITRO-BID) 2 % ointment 1 inch (COMPLETED) 1 inch, topical, Administer over 5 Hours, Once, On 08/24/18 at 2230, For 1 dose, Apply to chest or back with the applicator or dose-measuring paper. Wear gloves to apply to affected area. Wipe clean prior to reapplying next dose. May cover with a non-occlusive dressing. , Apply to affected area: other 2248 (Medication Applied - Provider: Arcelia Hand RN) 040 (Medication Removed - Provider: Arcelia Hand RN) pramipexole (MIRAPEX) tablet 0.5 mg 0.5 mg, oral, Nightly, First dose on 08/25/18 at 2100 PRN Medication Order 08/23/2018 08/24/2018 08/25/2018 acetaminophen (TYLENOL) tablet 650 mg 650 mg, oral, Every 4 hours PRN, 1st line for pain, fever, fever greater than 38.3 C, Starting on 08/24/18 at 2157, Indications: Fever, Pain 2249 (Given - Provider: Arcelia Hand RN) 0506 (Given - Provider: Arcelia Hand RN - Comment: headach) ondansetron (ZOFRAN) injection 4 mg(Linked Group 1) 4 mg, intravenous, Administer over 2 Minutes, Every 6 hours PRN, nausea, vomiting, if not tolerating PO, Starting on 08/24/18 at 2157, Indications: Nausea and Vomiting ondansetron ODT (ZOFRAN-ODT) disintegrating tablet 4 mg(Linked Group 1) 4 mg, oral, Every 6 hours PRN, nausea, vomiting, Starting on 08/24/18 at 2157, Indications: Nausea and Vomiting Linked Groups Order Group 1: ondansetron ODT (ZOFRAN-ODT) disintegrating tablet 4 mgJump to med 4 mg, oral, Every 6 hours PRN, nausea, vomiting, Starting on 08/24/18 at 2157, Indications: Nausea and Vomiting Or ondansetron (ZOFRAN) injection 4 mgJump to med 4 mg, intravenous, Administer over 2 Minutes, Every 6 hours PRN, nausea, vomiting, if not tolerating PO, Starting on 08/24/18 at 2157, Indications: Nausea and Vomiting documented in this encounter Orders Medications Ordered That Aden ht Not Have Been Administered Count Last Ordered Date First Ordered Date pramipexole (MIRAPEX) tablet 0.5 mg 1 08/25 pravastatin (PRAVACHOL) tablet 20 mg 1 08/09 ondansetron (ZOFRAN) injection 4 mg 1 08/24 ondansetron ODT (ZOFRAN-ODT) disintegrating tablet 4 mg 1 08/24/2018 Diet Count Last Ordered Date First Orde red Date ADULT DISCHARGE DIET 1 08/25/2018 Nursing Count Last Ordered Date First Orde red Date DISCHARGE ACTIVITY 1 08/25/2018 DISCHARGE CALL PROVIDER 8 08/25/2018 DISCHARGE INSTRUCTIONS 2 08/25/2018 FOLLOW UP PRIMARY PHYSICIAN 1 08/25/2018 CARDIO RESPIRATORY MONITORING 1 08/24/2018 CONTINUOUS PULSE OXIMETRY 1 08/24/2018 Consult Count Last Ordered Date First Orde red Date IP CONSULT TO CARDIOLOGY 1 08/25/2018 IV Count Last Ordered Date First Orde red Date SALINE LOCK IV 1 08/24/2018 Admission Count Last Ordered Date First Orde red Date ASSIGN PATIENT STATUS 1 08/24/2018 ADT Patient Update Count Last Ordered Date Firs t Ordered Date ED IP DECISION TO ADMIT 1 08/24/2018 documented in this encounter Care Teams Planning Analyst Relationship Specialty Start Date End Date Quentin Dewitt NP PCP - General 12/07/16 10/19/18 documented as of this encounter
--- OUTSIDE RECORDS SUMMARY | 2024-09-17 13:01 | XMS_ITS | Encounter Summary ---
Author Organization [facility] Healthcare Address [address] [place] [address] Care Team Providers Care Sleeping Room Cleaner Name Role Phone Quentin Dewitt NP Primary Care Provi christian Encounter Details Date Type Department Care Team (Late st Contact Info) Description 07/05/2015 2:28 PM CDT - 07/05/2015 11:59 PM CDT Hospital Encounter [facility] Dena Ramírez DO [address] [place] [address] Anesthesia of skin Social History Tobacco Use Types Packs/Day Years Used Date Smoking Tobacco: Smoker, Current Status Unknown Alcohol Use Standard Drinks/Week Comments No 0 (1 standard drink = 0.6 oz pur e alcohol) Sex and Gender Information Value Date Recorded Sex Assigned at Not on file 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 90 1 07/05/2015 08/24/2018 documented as of this encounter Plan of Treatment Not on file documented as of this encounter Visit Diagnoses Diagnosis Anesthesia of skin Disturbance of skin sensation documented in this encounter Care Teams Sleeping Room Cleaner Relationship Specialty Start Date End Date Quentin Dewitt NP PCP - General 12/29/13 12/06/16 documented as of this encounter
--- OUTSIDE RECORDS SUMMARY | 2024-09-17 13:01 | XMS_ITS | Encounter Summary ---
Author Organization [facility] Healthcare Address [address] [place] [address] Care Team Providers Care Assistant Womens Volleyball Coach Name Role Phone Quentin Dewitt NP Primary Care Provi christian Encounter Details Date Type Department Care Team (Late st Contact Info) Description 12/14/2015 3:54 PM CDT - 12/14/2015 11:59 PM CDT Hospital Encounter [facility] Dena Ramírez DO [address] [place] [address] Palpitations Social History Tobacco Use Types Packs/Day Years Used Date Smoking Tobacco: Smoker, Current Status Unknown Alcohol Use Standard Drinks/Week Comments No 0 (1 standard drink = 0.6 oz pur e alcohol) Sex and Gender Information Value Date Recorded Sex Assigned at Not on file 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 90 1 07/05/2015 08/24/2018 documented as of this encounter Plan of Treatment Not on file documented as of this encounter Visit Diagnoses Diagnosis Palpitations documented in this encounter Care Teams Assistant Womens Volleyball Coach Relationship Specialty Start Date End Date Quentin Dewitt NP PCP - General 12/29/13 12/06/16 documented as of this encounter
--- OUTSIDE RECORDS SUMMARY | 2024-09-17 13:01 | XMS_ITS | Encounter Summary ---
Author Organization [facility] Healthcare Address [address] [place] [address] Care Team Providers Care Doughnut Glazier Name Role Phone Quentin Dewitt NP Primary Care Provi christian Encounter Details Date Type Department Care Team (Late st Contact Info) Description 08/02/2015 8:19 AM OUTBOARD MOTOR ASSEMBLER - 08/02/2015 11:59 PM OUTBOARD MOTOR ASSEMBLER Hospital Encounter [facility] Dena Carver DO [address] [place] [address] Anesthesia of skin Social History Tobacco Use Types Packs/Day Years Used Date Smoking Tobacco: Smoker, Current Status Unknown Alcohol Use Standard Drinks/Week Comments No 0 (1 standard drink = 0.6 oz pur e alcohol) Sex and Gender Information Value Date Recorded Sex Assigned at Not on file 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
--- OUTSIDE RECORDS SUMMARY | 2024-09-17 13:01 | XMS_ITS | Encounter Summary ---
Author Organization [facility] Address [address] [place] [address] Care Team Providers Care Elementary Educator Name Role Phone Renate Quentin English NP Primary Care Provi christian Encounter Details Date Type Department Care Team (Latest Contact Info) Description 02/25/2017 6:16 PM CDT - 02/25/2017 11:59 PM CDT Hospital Encounter [facility]IM [phone] Go Diallo MD [address] [facility] [address] [place] [address] Discharge Disposition: Discharge to home or self care Social History Tobacco Use Types Packs/Day Years Used Date Smoking Tobacco: Smoker, Current Status Unknown Alcohol Use Standard Drinks/Week Comments Yes 0 (1 standard drink = 0.6 oz pur e alcohol) Sex and Gender Information Value Date Recorded Sex Assigned at Not on file Legal Sex Male 8:02 AM [employer] Gender Identity Not on file Sexual Orientation Not on file documented as of this encounter Medications at Time of Discharge ALPRAZolam (XANAX) 0.25 mg tablet take 1 tablet by oral route 2 times every day prn anxiety 30 0 12/14/2015 08/24/2018 buPROPion XL (WELLBUTRIN XL) 150 mg 24 hr tablet take 1 tablet by oral route every day 90 5 12/14/2015 08/24/2018 cholecalciferol (VITAMIN D-3) 1,000 unit capsule Take 1 capsule by mouth daily. 0 0 07/13/2016 08/24/2018 hydroCHLOROthiazi de (HYDRODIURIL) 12.5 mg tablet TAKE 1 TABLET BY ORAL ROUTE EVERY DAY 90 1 12/16/2015 08/24/2018 pramipexole (MIRAPEX) 0.25 mg tablet Take 1 tab at night 1-2 hours before bedtime. 90 1 07/05/2015 08/24/2018 documented as of this encounter Discharge Disposition Disposition Code Departure Means Destination Discharge to home or self care documented in this encounter Plan of Treatment Not on file documented as of this encounter Procedures Procedure Name Priority Date/Time Associated Diagnosis Comments CS GLUCOSE Routine Gen Lab 02/25/2017 3:10 PM CDT DIFFERENTIAL AUTO Routine Gen Lab 02/25/2017 3:1 0 PM CDT ACETYLCHOLINESTERASE , RBC Routine Gen Lab 02/25/2017 3:10 PM CDT COMPREHENSIVE METABOLIC PANEL WITHOUT GLUCOSE (OUTREACH) Routine Gen Lab 02/25/2017 3:10 PM CDT URINALYSIS Routine Gen Lab 02/25/2017 3:10 PM CDT CBC WITH AUTO DIFFERENTIAL Routine Gen Lab 02/25/2017 3:10 PM CDT URINALYSIS, MICROSCOPIC ONLY Routine Gen Lab 02/25/2017 3:10 PM CDT LIPID PANEL Routine Gen Lab 02/25/2017 3:10 PM CDT DISCHARGE LABORATORY CUMULATIVE REPORT 02/25/2017 documented in this encounter Results * Acetylcholinesterase, RBC (02/25/2017 3:10 PM CDT) RBC acetylcholinesterase 44.0 31.2 - 61.3 units/g hb [facility] Comment: Test Performed by: [address] [address] Blood specimen (specimen) 02/25/2017 3:10 PM CDT 02/25/2017 7:13 PM CDT Go Diallo MD LAB BLOOD ORDERABLES Final Re sult [facility] [place] [address] * (ABNORMAL) Lipid panel (02/25/2017 3:10 PM CDT) Cholesterol 215(H) 30 - 200 mg/dL [facility] Comment: Interpretive Data Desirable: ?<200 mg/dL Borderline high: ??200-239 mg/dL High: ? > or = 240 mg/dL Literature Reference: National Cholesterol Education Program (NCEP) Expert Panel on Detection, Evaluation, and Treatment of High Blood Cholesterol in Adults (Adult Treatment Panel III). ??Circulation 2004; 110:227. Current interpretive data was last revised on 2015. Triglycerides 344(H) 0 - 150 mg/dL [facility] Comment: Interpretive Data Desirable: ? < 150 mg/dL Borderline High: ? 150 - 199 mg/dL High: ?200 - 499 mg/dL Very High: ? > or = 499 mg/dL Literature Reference: See Cholesterol Current interpretive data was last revised on 2015. HDL 40 >=40 mg/dL [facility] Comment: Interpretive Data Less than 40 mg/dL - low; A major risk factor for heart disease. Greater than or equal to 60 mg/dL - High; ??considered protective of heart disease. Literature Reference: See Cholesterol Current interpretive data was last revised on 2015. LDL, calculated 106 10 - 129 mg/dL [facility] Comment: Interpretive Data Optimal: ? < 100 mg/dL Near Optimal: ?100 - 129 mg/dL Borderline High: ?? 130 - 159 mg/dL High: ?160 - 189 mg/dL Very high: ? > or = 190 mg/dL Literature Reference: See Cholesterol Current interpretive data was last revised on 2015. Non-HDL Cholesterol 175 mg/dL [facility] Comment: Interpretive Data When triglycerides are >200 mg/dL, non-HDL C is a secondary target of therapy, with a goal 30 mg/dL higher than the identified LDL-C goal. Reference: ??See Cholesterol Reference. Current interpretive data was last revised 2015. Blood specimen (specimen) 02/25/2017 3:10 PM CDT 02/25/2017 6:49 PM CDT Go Diallo MD LAB BLOOD ORDERABLES Edited R esult - Final [facility] [place] [address] * Comprehensive metabolic panel without glucose (outreach) (02/25/2017 3:10 PM CDT) Sodium 140 135 - 145 mmol/L [facility] Potassium, pl 4.1 3.3 - 4.9 mmol/L [facility] Chloride 103 97 - 110 mmol/L [facility] CO2 28 22 - 32 mmol/L [facility] Anion gap 9 2 - 15 mmol/L [facility] BUN 10 8 - 25 mg/dL [facility] Creatinine 1.01 0.80 - 1.30 mg/dL [facility] Calcium 9.6 8.5 - 10.3 mg/dL [facility] Protein, pl 7.5 6.5 - 8.5 g/dL [facility] Albumin 4.7 3.5 - 5.0 g/dL [facility] Bilirubin, total 0.5 0.1 - 1.2 mg/dL [facility] Alk phos 97 40 - 130 Units/L [facility] AST 26 10 - 50 Units/L [facility] ALT 26 7 - 55 Units/L [facility] Blood specimen (specimen) 02/25/2017 3:10 PM CDT 02/25/2017 6:49 PM CDT Go Diallo MD LAB BLOOD ORDERABLES Edited R esult - Final Performing Organization Address [facility] Co de Phone Number [facility] [place] [address] * CS GLUCOSE (02/25/2017 3:10 PM CDT) Pathologist [facility] Glucose 96 70 - 199 mg/dL [facility] Blood specimen (specimen) 02/25/2017 3:10 PM CDT 02/25/2017 6:49 PM CDT Go Diallo MD LAB BLOOD ORDERABLES Final Re sult Performing Organization Address [facility] de Phone Number [facility] [place] [address] * Urinalysis, microscopic (02/25/2017 3:10 PM CDT) [facility] RBC, ur 1 0 - 3 /HPF [facility] WBC, ur 2 0 - 5 /HPF [facility] Bacteria, ur Negative Trace [facility] Epithelial cells, renal, ur 0 0 - 0 /HPF [facility] Urine 02/25/2017 3:10 PM CDT 02/25/2017 6:49 PM CDT Go Diallo MD LAB URINE ORDERABLES Final Re sult Performing Organization Address [facility] de Phone Number [facility] Department [place] [address] * Differential, auto (02/25/2017 3:10 PM CDT) Neutrophil pct 58.3 % [facility] Imm gran pct 1.1 % [facility] Lymphocyte pct 27.4 % [facility] Monocyte pct 8.9 % [facility] Eosinophil pct 3.2 % [facility] Basophil pct 1.1 % [facility] Neutrophil abs 2.70 1.70 - 6.50 K/cumm [facility] Imm gran abs 0.05 0.00 - 0.10 K/cumm [facility] Lymphocyte abs 1.27 0.80 - 3.30 K/cumm [facility] Monocyte abs 0.41 0.20 - 0.80 K/cumm [facility] Eosinophil abs 0.15 0.00 - 0.50 K/cumm [facility] Basophil abs 0.05 0.00 - 0.10 K/cumm [facility] Blood specimen (specimen) 02/25/2017 3:10 PM CDT 02/25/2017 6:48 PM CDT us Go Diallo MD LAB BLOOD ORDERABLES Final Re sult [facility] [place] [address] * CBC with auto differential (02/25/2017 3:10 PM CDT) WBC 4.63 3.80 - 9.90 K/cumm [facility] RBC 4.60 4.30 - 5.80 M/cumm [facility] Hgb 15.0 13.0 - 17.5 g/dL [facility] Hct 42.7 38.9 - 50.3 % [facility] MCV 92.8 81.3 - 96.4 fL [facility] MCH 32.6 27.1 - 33.3 pg [facility] MCHC 35.1 32.3 - 35.7 g/dL [facility] RDW CV 12.4 11.1 - 14.9 % [facility] RDW SD 42.5 35.7 - 48.1 fL [facility] Plt 232 150 - 400 K/cumm [facility] MPV 10.7 9.1 - 12.3 fL [facility] NRBC 0.0 0.0 - 0.2 % [facility] NRBC abs 0.00 0.00 - 0.01 K/cumm [facility] Blood specimen (specimen) 02/25/2017 3:10 PM CDT 02/25/2017 6:48 PM CDT Go Diallo MD LAB BLOOD ORDERABLES Final Re sult Performing Organization Address City/[facility]/ZIP Co de Phone [facility] [place] [address] * (ABNORMAL) Urinalysis (02/25/2017 3:10 PM CDT) Color, ur Yellow Yellow [facility] Clarity, ur Clear Clear [facility] Specific gravity, ur 1.009 1.003 - 1.030 [facility] pH, ur 7.0 5.0 - 8.0 [facility] Albumin, ur Negative Trace [facility] Glucose, ur ql Negative Negative [facility] Ketones, ur Negative Negative [facility] Bilirubin, ur Negative Negative [facility] Blood, ur Negative Negative [facility] Urobilinogen, ur <2.0 <2.0 mg/dL [facility] Nitrites, ur Negative Negative [facility] Leukocyte esterase, ur 2+(A) Negative [facility] Urine 02/25/2017 3:10 PM CDT 02/25/2017 6:49 PM CDT Go Diallo MD LAB URINE ORDERABLES Final Re sult Performing Organization Address [facility] Co de Phone Number [facility] [place] [address] * DISCHARGE LABORATORY CUMULATIVE REPORT (02/25/2017) Provider Scanning LAB BLOOD ORDERABLES Final Res ult documented in this encounter Visit Diagnoses Not on filedocumented in this encounter Care Teams Elementary Educator Relationship Specialty Start Date End Date Quentin Dewitt NP PCP - General 12/07/16 10/19/18 documented as of this encounter
--- OUTSIDE RECORDS SUMMARY | 2024-09-17 13:01 | XMS_ITS | Encounter Summary ---
Author Organization [facility] Healthcare Address [address] [place] [address] Care Team Providers Care Sports Broadcaster Name Role Phone Quentin Dewitt NP Primary Care Provi christian Encounter Details Date Type Department Care Team (Late st Contact Info) Description 07/26/2013 8:22 AM POLISHING WHEEL REPAIRER - 07/26/2013 11:59 PM POLISHING WHEEL REPAIRER Hospital Encounter [facility] Dena Ramírez, [address] [place] [address] Hypoglycemia; Other malaise and fatigue; Screening for lipoid disorders Social History Tobacco Use Types Packs/Day Years Used Date Smoking Tobacco: Never Assessed Sex and Gender Information Value Date Recorded Sex Assigned at Not on file Legal Sex Male 8:02 AM POLISHING WHEEL REPAIRER Gender Identity Not on file Sexual Orientation Not on file documented as of this encounter Plan of Treatment Not on file documented as of this encounter Procedures Procedure Name Priority Date/Time Associated Diagnosis Comments SERUM LIPID PANEL Routine 07/26/2013 8:3 5 AM POLISHING WHEEL REPAIRER SERUM BASIC METABOLIC PANEL Routine 07/26/2013 8:35 AM POLISHING WHEEL REPAIRER SERUM 25-HYDROXYCHOLECALCIFER OL (VITAMIN D) Routine 07/26/2013 8:35 AM POLISHING WHEEL REPAIRER BLOOD WBC CELL MORPHOLOGIC EXAM, AUTO Routine 07/26/2013 8:35 AM POLISHING WHEEL REPAIRER BLOOD CELL COUNT (CBC) Routine 3 8:35 AM POLISHING WHEEL REPAIRER SERUM CYANOCOBALAMIN (VITAMIN B12) Routine 07/26/2013 2:35 AM POLISHING WHEEL REPAIRER BLOOD GLYCATED HEMOGLOBIN Routine 07/26/2013 2:35 AM POLISHING WHEEL REPAIRER DISCHARGE LABORATORY CUMULATIVE REPORT Routine 07/26/2013 12:00 AM POLISHING WHEEL REPAIRER documented in this encounter Results * (ABNORMAL) Serum basic metabolic panel (07/26/2013 8:35 AM POLISHING WHEEL REPAIRER) Pathologist [facility] [place] BUN 10.0 6.0 - 23.0 mg/dl HISTORICAL RESULTS Sodium 136 134 - 143 mmol/L HISTORICAL RESULTS Potassium, sr 4.0 3.4 - 5.0 mmol/L HISTORICAL RESULTS Chloride 102 99 - 108 mmol/L HISTORICAL RESULTS CO2 27 23 - 32 mmol/L HISTORICAL RESULTS Glucose 97 70 - 199 mg/dl HISTORICAL RESULTS Comment: Note:The glucose is assumed non fasting Fastin-99 mg/dl Random: 70-199 mg/dl Either a fasting glucose > 126 mg/dL or a random glucose > 200 mg/dL plus symptoms is diagnostic of diabetes when confirmed on another day. Fasting values > 100 mg/dl but < 125 mg/dL are diagnostic of impaired fasting glucose. Creatinine 1.13 0.60 - 1.30 mg/dl HISTORICAL RESULTS Comment: eGFR: >70 ml/min/1.73sq.m if non -Grenadian. eGFR: >70 ml/min/1.73sq.m if -Grenadian. AVE GFR for 40-49 yr. age group: ??99 ml/min/1.73sq.m Calculated using MDRD Equation BUN/creat ratio 9(L) 10 - 20 HIST ORICAL RESULTS A. gap 11 7 - 14 mmol/L HISTORICAL RESULTS Osmo, calc 271(L) 275 - 295 mOsm/kg HISTORICAL RESULTS Calcium 8.7 8.6 - 9.8 mg/dl HISTORICAL RESULTS Serum 07/26/2013 8:35 AM POLISHING WHEEL REPAIRER us Dena Ramírez DO LAB BLOOD ORDERABLES Final Res ult HISTORICAL RESULTS * Serum lipid panel (07/26/2013 8:35 AM POLISHING WHEEL REPAIRER) Cholesterol 205 mg/dl HISTORIC AL RESULTS Comment: DESIRABLE = LESS THAN 200 MG/DL BORDERLINE HIGH = 200-239 MG/DL HIGH= GREATER THAN 239 MG/DL Triglycerides 180 mg/dl HISTOR ICAL RESULTS Comment: Current guidelines recommend that lipid screen be performed on fasting blood samples for heart risk stratification. NORMAL = LESS THAN 150 MG/DL BORDERLINE HIGH = 150-199 MG/DL HIGH = 200-499 MG/DL VERY HIGH = GREATER THAN OR EQUAL TO 500 MG/DL HDL 31 mg/dl HISTORICAL RESULTS Comment: LOW HDL CHOLESTEROL = Less than 40 mg/dL NORMAL HDL CHOLESTEROL = 40-59 mg/dL HIGH HDL CHOLESTEROL = Greater than 59 mg/dL Non-HDL cholesterol, calculated 174 mg/dl HISTORICAL RESULTS Comment: OPTIMAL LESS THAN 130 LOW RISK 130 -159 MODERATE RISK 160 - 189 HIGH RISK GREATER THAN OR EQUAL TO 190 LDL, calculated 138 HIST ORICAL RESULTS Comment: LESS THAN 100 MG/DL OPTIMAL 100 - 129 MG/DL NEAR OPTIMAL / ABOVE OPTIMAL 130 - 159 MG/DL BORDERLINE HIGH 160 - 189 MG/DL HIGH GREATER THAN OR = 190 MG/DL VERY HIGH LDL VALUES ARE NOT VALID WHEN THE TOTAL TRIGLYCERIDE IS GREATER THAN 300 MG/DL. Serum 07/26/2013 8:35 AM POLISHING WHEEL REPAIRER Dena Ramírez DO LAB BLOOD ORDERABLES Final Res ult HISTORICAL RESULTS * Blood cell count (CBC) (07/26/2013 8:35 AM POLISHING WHEEL REPAIRER) WBC 5.0 4.0 - 10.5 K/cumm HISTORICAL RESULTS RBC 4.64 4.60 - 6.20 M/cumm HISTORICAL RESULTS Hgb 15.0 14.0 - 18.0 g/dl HISTORICAL RESULTS Hct 42.4 40.0 - 54.0 % HISTORICAL RESULTS MCV 91.4 77.0 - 97.0 fl HISTORICAL RESULTS MCH 32.3 23.0 - 34.0 pg HISTORICAL RESULTS MCHC 35.4 32.0 - 36.0 g/dl HISTORICAL RESULTS Rdw 12.4 11.5 - 14.5 % HISTORICAL RESULTS Platelets 219 150 - 451 K/cumm HISTORICAL RESULTS MPV 9.2 7.4 - 10.4 fl HISTORICAL RESULTS Blood specimen (specimen) 07/26/2013 8:35 AM POLISHING WHEEL REPAIRER Dena Ramírez [employer] LAB BLOOD ORDERABLES Final Res ult Performing Organization Address [facility] Co de Phone Number HISTORICAL RESULTS * (ABNORMAL) Blood WBC cell morphologic exam, auto (07/26/2013 8:35 AM POLISHING WHEEL REPAIRER) Lymphocytes 34.6(H) 25.0 - 33.0 % HISTORICAL RESULTS Monos 7.8 1.0 - 13.0 % HISTORICAL RESULTS Neutrophils 53.8(L) 54.0 - 69.0 % HISTORICAL RESULTS Eosinophils 2.4 0.0 - 10.0 % HISTORICAL RESULTS Basophils 0.6 0.0 - 1.0 % HISTORICAL RESULTS Immature granulocytes 0.8 0.0 - 1.0 % HISTORICAL RESULTS Lymphocytes, abs 1.7 1.2 - 3.4 K/cumm HISTORICAL RESULTS Monocytes, absolute 0.4(L) 1.1 - 1.9 K/cumm HISTORICAL RESULTS Neutrophils, abs 2.7 1.4 - 6.5 K/cumm HISTORICAL RESULTS Eosinophils, abs 0.1 0.0 - 0.7 cells/cum m HISTORICAL RESULTS Basophils, abs 0.0 0.0 - 0.2 K/cumm HISTORICAL RESULTS Immature granulocyte, abs 0.0(H) 0.0 - 0.0 K/cumm HISTORICAL RESULTS Blood specimen (specimen) 07/26/2013 8:35 AM POLISHING WHEEL REPAIRER Dena Ramírez DO LAB BLOOD ORDERABLES Final Res ult Performing Organization Address City/[facility]/ZIP Co de Phone Number HISTORICAL RESULTS * (ABNORMAL) Serum 25-hydroxycholecalciferol (vitamin D) (07/26/2013 8:35 AM POLISHING WHEEL REPAIRER) 25-OH Vit D 28(L) 30 - 80 ng/ml HISTORICAL RESULTS Serum 07/26/2013 8:35 AM POLISHING WHEEL REPAIRER Dena Ramírez DO LAB BLOOD ORDERABLES Final Res ult HISTORICAL RESULTS * Blood glycated hemoglobin (07/26/2013 2:35 AM POLISHING WHEEL REPAIRER) Glycated hemoglobin 5.3 4.2 - 5.9 % HISTORICAL RESULTS Blood specimen (specimen) 07/26/2013 2:35 AM POLISHING WHEEL REPAIRER Narrative HISTORICAL RESULTS - 07/26/2013 5:26 AM POLISHING WHEEL REPAIRER Estimated average Glucose A1C(%) ?? mg/dl ? A1C(%) ?? mg/dl ?? 5.0 ?97 ?9.0 ?212 ?? 5.5 ? 111 ?9.5 ?226 ?? 6.0 ? 126 ? 10.0 ?240 ?? 6.5 ? 140 ? 10.5 ?255 ?? 7.0 ? 154 ? 11.0 ?269 ?? 7.5 ? 169 ? 11.5 ?283 ?? 8.0 ? 183 ? 12.0 ?298 ?? 8.5 ? 197 95% Confidence levels are +/- 20% The ADA recommends reporting an estimated Average Glucose (eAG) with all hemoglobin A1C results using the equation derived from a study of 507 normal adults and diabetic adults (in stable control). Minority populations were underrepresented. Children and women were not included. (Diabetes Care 2008; 31:2139-6185) us Dena Ramírez DO LAB BLOOD ORDERABLES Final Res ult HISTORICAL RESULTS * (ABNORMAL) Serum cyanocobalamin (vitamin B12) (07/26/2013 2:35 AM POLISHING WHEEL REPAIRER) Cyanocobalamin (Vit B12) 1620(H) 211 - 911 pg/ml HISTORICAL RESULTS Serum 07/26/2013 2:35 AM POLISHING WHEEL REPAIRER Narrative HISTORICAL RESULTS - 07/26/2013 4:47 AM POLISHING WHEEL REPAIRER VIT B12 REFERENCE RANGE 211-911 pg/ml us Dena Ramírez DO LAB BLOOD ORDERABLES Final Res ult Performing Organization Address City/[facility]/ZIP Co de Phone Number HISTORICAL RESULTS * Discharge Laboratory Cumulative Report (07/26/2013 12:00 AM POLISHING WHEEL REPAIRER) 07/26/2013 Narrative HISTORICAL RESULTS - 07/28/2013 12:28 AM POLISHING WHEEL REPAIRER Patient No: [id number] ? [facility] Patient Name: JADEN CLEMENT ? [facility] Healthcare Age: 42 YRS ?: 1970 ?Sex:M ?[address] )[phone] ?? Adm Dt: 07/26/2013 ?[place], [place] ??[id number] Created: 07/28/2013 ??0028 ?? Pt. Type: R ? Discharge Dt: 07/26/2013 ? Pathologists: Denice Dick MD Admit DrSandra Attend Dr: DENA RAMÍREZ DO ? BLOOD CELL COUNTS ?Collection Date: ?07/26/13 ?Collection Time: ?0835 ? Ref Range: ?? Units: [4.00-10.50] /CMM ? WBC X 10^3 ?5.03 [4.60-6.20] ??/CMM ? RBC X 10^6 ?4.64 [14.0-18.0] ??G/DL ? HGB ? 15.0 [40.0-54.0] ??% ?HCT ? 42.4 [77.0-97.0] ??FL ? MCV ? 91.4 [23.0-34.0] ??PG ? MCH ? 32.3 [32.0-36.0] ??% ?MCHC ?35.4 [11.5-14.5] ??% ?RDW ? 12.4 [150-451] ?? /CMM ? PLT X 10^3 ? 219 ?BLOOD CELL DIFFERENTIAL ?Collection Date: ?07/26/13 ?Collection Time: ?0835 ? Ref Range: ?? Units: [54.0-69.0] ??% ?NEUTROPHILS ? 53.8 L [25.0-33.0] ??% ?LYMPHOCYTES ? 34.6 H [1.0-13.0] ??% ?MONOCYTES ?7.8 [0.0-10.0] ??% ?EOSINOPHILS ?2.4 [0.0-1.0] ?? % ?BASOPHILS ?0.6 ? /CMM ? A LYMPHOCYTE ? 1.7 [0.0-1.0] ?? % ?IMM GRAN % ? 0.8 [0.00-0.02] ??/CMM ? A IMM GRAN ?0.04 H [1.1-1.9] ?? /CMM ? A MONOCYTE ? 0.4 L [1.4-6.5] ?? /CMM ? A NEUTROPHIL ? 2.7 [0.0-0.7] ?? /CMM ? A EOSINOPHIL ? 0.1 [0.0-0.2] ?? /CMM ? A BASOPHIL ? 0.0 Footnotes and Symbols: L = Low, H = High ?? CONTINUED ?Page: ?? 1 Patient No: [id number] ? [facility] Patient Name: JADEN CLEMENT ? [facility] Healthcare Age: 42 YRS ?: 1970 ?Sex:M ?[address] )[phone] ?? Adm Dt: 07/26/2013 ?[place] ??[id number] Created: 07/28/2013 ??0028 ?? Pt. Type: R ? Discharge Dt: 07/26/2013 ? Pathologists: Denice Dick MD Admit Attend Dr: DENA RAMÍREZ DO ?SPECIAL HEMATOLOGY ?Collection Date: ?07/26/13 ?Collection Time: ?0835 ? Ref Range: ?? Units: [4.2-5.9] ?? % ?HEMOGLOBIN A1C ? 5.3 f Footnotes and Symbols: f = Footnote HEMOGLOBIN A1C (04/25/11 -- Current) Estimated average Glucose A1C(%) ?? mg/dl ? A1C(%) ?? mg/dl ?? 5.0 ?97 ?9.0 ?212 ?? 5.5 ? 111 ?9.5 ?226 ?? 6.0 ? 126 ? 10.0 ?240 ?? 6.5 ? 140 ? 10.5 ?255 ?? 7.0 ? 154 ? 11.0 ?269 ?? 7.5 ? 169 ? 11.5 ?283 ?? 8.0 ? 183 ? 12.0 ?298 ?? 8.5 ? 197 95% Confidence levels are +/- 20% The ADA recommends reporting an estimated Average Glucose (eAG) with all hemoglobin A1C results using the equation derived from a study of 507 normal adults and diabetic adults (in stable control). Minority populations were underrepresented. Children and women were not included. (Diabetes Care 2008; 31:2558-3751) ?? CONTINUED ?Page: ?? 2 Patient No: [id number] ? [facility] Patient Name: JADEN CLEMENT ? [facility] Age: 42 YRS ?: 1970 ?Sex:M ?[address] )[phone] ?? Adm Dt: 07/26/2013 ?[place], [place] ??[address] Created: 07/28/2013 ??0028 ?? Pt. Type: R ? Discharge Dt: 07/26/2013 ? Pathologists: Denice Dick MD Admit Dr. Herrera Dr: DENA RAMÍREZ DO ? GENERAL CHEMISTRY ?Collection Date: ?07/26/13 ?Collection Time: ?0835 ? Ref Range: ?? Units: [134-143] ?? MMOL/L ? SODIUM ? 136 [3.4-5.0] ?? MMOL/L ? POTASSIUM ?4.0 [99.0-108.0] MMOL/L ? CHLORIDE ? 102.0 [23.0-32.0] ??MMOL/L ? TOTAL CO2 ? 27.1 ?? [7-14] ?MMOL/L ? ANION GAP ? 11 ??[70-199] ?? MG/DL ?GLUCOSE ? 97 f [275-295] ?? MOSM/K ? CALCULATED OSMO ?271 L [8.6-9.8] ?? MG/DL ?CALCIUM ?8.7 [6.0-23.0] ??MG/DL ?BUN ? 10.0 ??[10-20] ? B/C RATIO ?9 L [0.60-1.30] ??MG/DL ?CREATININE ?1.13 f ?07/26/13 0835 eGFR: >70 ml/min/1.73sq.m if non -Grenadian. eGFR: >70 ml/min/1.73sq.m if -Grenadian. AVE GFR for 40-49 yr. age group: ??99 ml/min/1.73sq.m Calculated using MDRD Equation FOOTNOTE ADDED ON ?? 07/26/13 ?? AT 0910 BY 999 Footnotes and Symbols: L = Low, f = Footnote GLUCOSE (07/20/13 -- Current) Note:The glucose is assumed non fasting Fastin-99 mg/dl Random: 70-199 mg/dl Either a fasting glucose > 126 mg/dL or a random glucose > 200 mg/dL plus symptoms is diagnostic of diabetes when confirmed on another day. Fasting values > 100 mg/dl but < 125 mg/dL are diagnostic of impaired fasting glucose. New reference ranges implemented 07/20/2013. ?? CONTINUED ?Page: ?? 3 Patient No: [id number] ? [facility] Patient Name: JADEN CLEMENT ? [facility] Age: 42 YRS ?: 1970 ?Sex:M ?[address] )[phone] ?? Adm Dt: 07/26/2013 ?[place] ??[id number] Created: 07/28/2013 ??0028 ?? Pt. Type: R ? Discharge Dt: 07/26/2013 ? Pathologists: Denice Ochoait Attend Dr: DENA RAMÍREZ DO ?LIPIDS ?Collection Date: ?07/26/13 ?Collection Time: ?834 ? Ref Range: ?? Units: ? MG/DL ?CHOLESTEROL ?205 f ? MG/DL ?HDL CHOLESTEROL ? 31 f ? MG/DL ?TRIGLYCERIDES ?180 f ?07/26/13 0835 Current guidelines recommend that lipid screen be ??performed on fasting blood samples for heart risk stratification. FOOTNOTE ADDED ON ?? 07/26/13 ?? AT 0910 BY 999 ? MG/DL ?NON HDL CALC ? 174 f Footnotes and Symbols: f = Footnote CHOLESTEROL (09/21/10 -- Current) DESIRABLE = LESS THAN 200 MG/DL BORDERLINE HIGH = 200-239 MG/DL HIGH= GREATER THAN 239 MG/DL HDL CHOLESTEROL (09/21/10 -- Current) LOW HDL CHOLESTEROL = Less than 40 mg/dL NORMAL HDL CHOLESTEROL = 40-59 mg/dL HIGH HDL CHOLESTEROL = Greater than 59 mg/dL TRIGLYCERIDES (12/24/12 -- Current) NORMAL = LESS THAN 150 MG/DL BORDERLINE HIGH = 150-199 MG/DL HIGH = 200-499 MG/DL VERY HIGH = GREATER THAN OR EQUAL TO 500 MG/DL NON HDL CALC (12/15/12 -- Current) OPTIMAL LESS THAN 130 LOW RISK 130 -159 MODERATE RISK 160 - 189 HIGH RISK GREATER THAN OR EQUAL TO 190 ?? CONTINUED ?Page: ?? 4 Patient No: [id number] ? [facility] Patient Name: JADEN CLEMENT ? [facility] Age: 42 YRS ?: 1970 ?Sex:M ?[address] )[phone] ?? Adm Dt: 07/26/2013 ?[place], [place] ??[address] Created: 07/28/2013 ??0028 ?? Pt. Type: R ? Discharge Dt: 07/26/2013 ? Pathologists: Denice Dick MD Admit Attend Dr: DENA RAMÍREZ DO ?LIPIDS ?Collection Date: ?11/17/13 ?Collection Time: ?0835 ? Ref Range: ?? Units: ?LDL CHOL CALC ?138 f ?SPECIAL CHEMISTRY ?Collection Date: ?//13 ?Collection Time: ?0835 ? Ref Range: ?? Units: [211-911] ?? pg/ml ?VITAMIN B12 ? 1620 Hf ??[30-80] ?ng/mL ?25OH VITAMIN D ?28 L Footnotes and Symbols: L = Low, H = High, f = Footnote LDL CHOL CALC (12/25/12 -- Current) LESS THAN 100 MG/DL OPTIMAL 100 - 129 MG/DL NEAR OPTIMAL / ABOVE OPTIMAL 130 - 159 MG/DL BORDERLINE HIGH 160 - 189 MG/DL HIGH GREATER THAN OR = 190 MG/DL VERY HIGH LDL VALUES ARE NOT VALID WHEN THE TOTAL TRIGLYCERIDE IS GREATER THAN 300 MG/DL. VITAMIN B12 (06/18/08 -- Current) VIT B12 REFERENCE RANGE 211-911 pg/ml ?? END OF CHART ? Page: ?? 5 us Historical Provider LAB BLOOD ORDERABLES Gisele may Result HISTORICAL RESULTS documented in this encounter Visit Diagnoses Diagnosis Hypoglycemia Hypoglycemia, unspecified Other malaise and fatigue Screening for lipoid disorders documented in this encounter Care Teams Sports Broadcaster Relationship Specialty Start Date End Date Quentin Dewitt NP PCP - General 07/06/13 12/28/13 documented as of this encounter
--- OUTSIDE RECORDS SUMMARY | 2024-09-17 13:01 | XMS_ITS | Encounter Summary ---
Author Organization [facility] Healthcare Address [address] [place] [address] Care Team Providers Care Slag Production Worker Name Role Phone Quentin Dewitt NP Primary Care Provi christian Encounter Details Date Type Department Care Team (Late st Contact Info) Description 08/30/2015 10:13 AM TOOTH INSPECTOR - 08/30/2015 11:59 PM [facility] Hospital Encounter [facility] Clem Terrell MD [address] [place] [address] DR V[address]SQUEZ [address] [address] Abnormal electromyogram (EMG); Carpal tunnel syndrome of right wrist; Anesthesia of skin Social History Tobacco Use Types Packs/Day Years Used Date Smoking Tobacco: Smoker, Current Status Unknown Alcohol Use Standard Drinks/Week Comments No 0 (1 standard drink = 0.6 oz pur e alcohol) Sex and Gender Information Value Date Recorded Sex Assigned at Not on file Legal Sex Male 8:02 AM TOOTH INSPECTOR Gender Identity Not on file Sexual Orientation Not on file documented as of this encounter Medications at Time of Discharge pramipexole (MIRAPEX) 0.25 mg tablet Take 1 tab at night 1-2 hours before bedtime. 90 1 07/05/2015 08/24/2018 documented as of this encounter Plan of Treatment Not on file documented as of this encounter Visit Diagnoses Diagnosis Abnormal electromyogram (EMG) Carpal tunnel syndrome of right wrist Anesthesia of skin Disturbance of skin sensation documented in this encounter Care Teams Slag Production Worker Relationship Specialty Start Date End Date Quentin Dewitt NP PCP - General 12/29/13 12/06/16 documented as of this encounter
--- OUTSIDE RECORDS SUMMARY | 2024-09-17 13:01 | XMS_ITS | Encounter Summary ---
Author Organization [facility] Healthcare Address [address] [place] [address] Care Team Providers Care Forge Operator Name Role Phone Quentin Dewitt NP Primary Care Provi christian Encounter Details Date Type Department Care Team (Late st Contact Info) Description 07/12/2016 4:36 PM CDT - 07/12/2016 11:59 PM CDT Hospital [place] [address] [address] Quentin Dewitt NP [address] [place] [id number] Encounter for general adult medical examination without abnormal findings; Hyperlipidemia; Essential (primary) hypertension Social History Tobacco Use Types Packs/Day Years Used Date Smoking Tobacco: Smoker, Current Status Unknown Alcohol Use Standard Drinks/Week Comments Yes 0 (1 standard drink = 0.6 oz pur e alcohol) Sex and Gender Information Value Date Recorded Sex Assigned at Not on file Legal Sex Male 8:02 AM PILOT SUBMERSIBLE Gender Identity Not on file Sexual Orientation Not on file documented as of this encounter Medications at Time of Discharge ALPRAZolam (XANAX) 0.25 mg tablet take 1 tablet by oral route 2 times every day prn anxiety 30 0 12/14/2015 08/24/2018 buPROPion XL (WELLBUTRIN XL) 150 mg 24 hr tablet take 1 tablet by oral route every day 90 5 12/14/2015 08/24/2018 hydroCHLOROthiazi de (HYDRODIURIL) 12.5 mg tablet TAKE 1 TABLET BY ORAL ROUTE EVERY DAY 90 1 12/16/2015 08/24/2018 pramipexole (MIRAPEX) 0.25 mg tablet Take 1 tab at night 1-2 hours before bedtime. 90 1 07/05/2015 08/24/2018 documented as of this encounter Plan of Treatment Not on file documented as of this encounter Visit Diagnoses Diagnosis Encounter for general adult medical examination without abnormal findings Hyperlipidemia Other and unspecified hyperlipidemia Essential (primary) hypertension Unspecified essential hypertension documented in this encounter Care Teams Forge Operator Relationship Specialty Start Date End Date Quentin Dewitt NP PCP - General 12/29/13 12/06/16 documented as of this encounter
--- OUTSIDE RECORDS SUMMARY | 2024-09-17 13:01 | XMS_ITS | Encounter Summary ---
Author Organization [facility] Healthcare Address [address] [place] [address] Care Team Providers Care Silk Hanger Name Role Phone Quentin Dewitt NP Primary Care Provi christian Encounter Details Date Type Department Care Team (Late st Contact Info) Description 02/29/2016 4:09 PM CDT - 02/29/2016 11:59 PM CDT Hospital Encounter [facility] Dena Ramírez DO [address] [place] [address] Other hypertrophic disorders of the skin Social History Tobacco Use Types Packs/Day Years Used Date Smoking Tobacco: Smoker, Current Status Unknown Alcohol Use Standard Drinks/Week Comments No 0 (1 standard drink = 0.6 oz pur e alcohol) Sex and Gender Information Value Date Recorded Sex Assigned at Not on file Legal Sex Male 8:02 AM LABORATORY SUPERVISOR Gender Identity Not on file Sexual [...] Procedure Name Priority Date/Time Associated Diagnosis Comments SURGICAL PATHOLOGY 02/29/2016 documented in this encounter Results * Surgical pathology (02/29/2016) Narrative 02/29/2016 Ordered by an unspecified provider. us Historical Provider LAB PATHOLOGY ORDERABLES Final Result documented in this encounter Visit Diagnoses Diagnosis Other hypertrophic disorders of the skin documented in this encounter Care Teams Silk Hanger Relationship Specialty Start Date End Date Quentin Dewitt NP PCP - General 12/29/13 12/06/16 documented as of this encounter
--- OUTSIDE RECORDS SUMMARY | 2024-09-17 13:01 | XMS_ITS | Encounter Summary ---
Author Organization [facility] Healthcare Address [address] [place] [address] Care Team Providers Care Teletype Adjuster Name Role Phone Renate Quentin Sandsth CONVICT GUARD Primary Care Provi christian Encounter Details Date Type Department Care Team (Late st Contact Info) Description 07/07/2013 3:55 PM CDT - 07/07/2013 11:59 PM CDT Hospital Encounter [facility] Dena Ramírez DO [address] [place] [address] Cervical spondylosis without myelopathy Social History Tobacco Use Types Packs/Day Years Used Date Smoking Tobacco: Never Assessed Sex and Gender Information Value Date Recorded Sex Assigned at Not on file Legal Sex Male 8:02 AM JAVA GRAILS DEVELOPER Gender Identity Not on file Sexual Orientation Not on file documented as of this encounter Plan of Treatment Not on file documented as of this encounter Procedures Procedure Name Priority Date/Time Associated Diagnosis Comments XR SPINE CERVICAL COMPLETE 4 OR 5 VW Routine 07/07/2013 4:31 PM CDT documented in this encounter Results * XR Spine Cervical Complete 4 Or 5 View (07/07/2013 4:31 PM CDT) Anatomical Region Laterality Modality Spine N/A Radiographic Rosanna ging 07/07/2013 4:31 PM CDT Narrative 07/08/2013 10:45 AM CDT XR Cervical Spine Routine 4 View ??Acc#: ??[id number] DATE OF EXAM: ??Jul 07 2013 CLINICAL HISTORY: Chronic neck pain that extends from the base of skull down between the shoulder blades with no specific injury. RESULT: AP, lateral, oblique and odontoid views obtained. There is loss of the normal cervical lordotic curvature. ??There is moderate C6-7 and mild to moderate C5-6 disc space narrowing. Degenerative endplate spur formation extends from the C3-C7 levels, but greatest at C5-6 and C6-7. There is minimal osteophyte encroachment into the right C6-7 neural foramen with moderate neural foraminal stenosis on the left at C6-7 and milder at C5-6. ??Uncovertebral joint degenerative osteoarthritis at C5-6 and C6-7 is noted. ??Minimal facet degenerative changes are present as well. ??There is no fracture or dislocation. IMPRESSION: DEGENERATIVE OSTEOARTHRITIS OF THE CERVICAL SPINE ABOVE. Interpreting Physician: ??CARMELO REINOSO M.D. ??Read on: ??Jul 07 2013 ??4:55P Transcribed by: ??vam ??On: Jul 07 2013 ??7:18P Approved Electronically by: ??CARMELO REINOSO M.D. ??on: ??Jul 08 2013 10:45A Ordering DR: DR DENA RAMÍREZ Attending DR: DENA RAMÍREZ Procedure Note Provider, MD Elbert - 01/01/2017 XR Cervical Spine Routine 4 View Acc#: [id number] DATE OF EXAM: Jul 07 2013 CLINICAL HISTORY: Chronic neck pain that extends from the base of skull down between theshoulder blades with no specific injury. RESULT: AP, lateral, oblique and odontoid views obtained. There is loss of thenormal cervical lordotic curvature. There is moderate C6-7 and mild tomoderate C5-6 disc space narrowing. Degenerative endplate spur formationextends from the C3-C7 levels, but greatest at C5-6 and C6-7. There isminimal osteophyte encroachment into the right C6-7 neural foramen withmoderate neural foraminal stenosis on the left at C6-7 and milder at C5-6.Uncovertebral joint degenerative osteoarthritis at C5-6 and C6-7 isnoted. Minimal facet degenerative changes are present as well. There isno fracture or dislocation. IMPRESSION: DEGENERATIVE OSTEOARTHRITIS OF THE CERVICAL SPINE ABOVE. Interpreting Physician: CARMELO REINOSO M.D. Read on: Jul 07 2013 4:55P Transcribed by: savanna On: Jul 07 2013 7:18P Approved Electronically by: CARMELO REINOSO M.D. on: Jul 08 2013 10:45A Ordering DR: DR DENA RAMÍREZ Attending DR: DENA RAMÍREZ us Historical Provider MD CAMACHO XR PROCEDURES Final R esult documented in this encounter Visit Diagnoses Diagnosis Cervical spondylosis without myelopathy documented in this encounter Care Teams Teletype Adjuster Relationship Specialty Start Date End Date Quentin Dewitt NP PCP - General 07/06/13 12/28/13 documented as of this encounter
--- OUTSIDE RECORDS SUMMARY | 2024-09-17 13:01 | XMS_ITS | Encounter Summary ---
Author Organization [facility] Healthcare Address [address] [place] [address] Care Team Providers Care Post Acute Care Nurse Practitioner Name Role Phone Christopherchristianglenys Quentin Tameka ALAN Primary Care Provi christian Encounter Details Date Type Department Care Team (Late st Contact Info) Description 10/20/2015 6:57 AM CAT SCAN TECH - 10/20/2015 11:00 AM CAT SCAN TECH Hospital Encounter [facility] Clem Terrell MD [address] [place] [address] DR VEL[address]SQUEZ [address] [address] Carpal tunnel syndrome of left wrist; Carpal tunnel syndrome of right wrist; Sleep apnea; Restless legs syndrome Social History Tobacco Use Types Packs/Day Years Used Date Smoking Tobacco: Smoker, Current Status Unknown Alcohol Use Standard Drinks/Week Comments No 0 (1 standard drink = 0.6 oz pur e alcohol) Sex and Gender Information Value Date Recorded Sex Assigned at Not on file Legal Sex Male 8:02 AM CAT SCAN TECH Gender Identity Not on file Sexual Orientation Not on file documented as of this encounter Medications at Time of Discharge pramipexole (MIRAPEX) 0.25 mg tablet Take 1 tab at night 1-2 hours before bedtime. 90 1 07/05/2015 08/24/2018 documented as of this encounter Miscellaneous Notes * Op Note - Provider, MD Elbert - 10/20/2015 12:00 AM CST OPERATIVE REPORT Patient: THOMAS CLEMENT. Service Date: 10/20/2015 Account: [id number] Room No: 175-02 : 1970 Patient Type: SDS Attend.: Clem Bedoya M.D. Admit Date: 10/20/2015 Surg.: Clem Bedoya M.D. Disch. Date: 10/20/2015 REVISED/EDIT TEXT ON 05/21/16 AT 901 PREOPERATIVE DIAGNOSIS Bilateral carpal tunnel syndrome. PROCEDURE PERFORMED Bilateral endoscopic carpal tunnel release. ANESTHESIA General. SPECIMENS None. ESTIMATED BLOOD LOSS Minimal. COMPLICATIONS None. CONDITION ON DISCHARGE Stable. ELECTROTHERAPIST Dorita Krishnamurthy., A.T.C. TOURNIQUET TIME On the right 10 minutes, on the left 12 minutes. OPERATIVE INDICATION The patient failed conservative management of bilateral carpal tunnel syndrome. EMG and nerve conduction study confirmed this after failing conservative management including night splints, he elected to have the above-named procedure. INFORMED CONSENT Informed consent was obtained from the patient. The patient understood the risks and benefits of the procedure including but not limited to , stroke, bleeding, infection, damage to nerves, arteries and veins, tendons, need for additional procedures. Informed consent was obtained. Consent form was also signed. OPERATION IN DETAIL The patient was taken to the operating room and general anesthesia was performed. His bilateral extremities were cleaned with alcohol, and prepped and draped in standard technique with ChloraPrep. Standard time-out was performed and the operative extremity was identified, also marked preoperatively. Right upper extremity: Marked standard open carpal tunnel incision. Made transverse in line with this. The hand was exsanguinated. The tourniquet inflated to 250 mmHg for approximately 10 minutes. A transverse incision made. Dissection down to deep fascia was performed. A small dilator, large dilator and freer elevators used to remove the adhesions from the transverse carpal ligament under direct visualization with an Arthrex endoscopic blade. The transverse carpal ligament was transected. The deep fascia forearm was then released with blunt- tipped scissor. The proximal aspect of the incision injected with Marcaine without epinephrine. The wound was irrigated and closed with 4-0 nylon, Xeroform dressing, Op-Site dressing, cast pad and Coban. Attention was turned to the left upper extremity. Marked standard open carpal tunnel incision. Made transverse in line with this. The hand was exsanguinated. The tourniquet inflated to 250 mmHg for approximately 10 minutes. A transverse incision made. Dissection down to deep fascia was performed. A small dilator, large dilator and freer elevators used to remove the adhesions from the transverse carpal ligament under direct visualization with an Arthrex endoscopic blade. The transverse carpal ligament was transected. The deep fascia forearm was then released with blunt- tipped scissor. The proximal aspect of the incision injected with Marcaine without epinephrine. The wound was irrigated and closed with 4-0 nylon, Xeroform dressing, Op-Site dressing, cast pad and Coban. Needle, sponge, and instrument counts were correct at the end of the case. POSTOPERATIVE PLAN: The patient will keep incisions clean and dry for the next three to five days. He will followup for suture removal at two weeks. Thank you for allowing me to participate in this patient's care. Electronically Authenticated by: Clem Bedoya MD On 10/24/2015 09:58 PM CAT SCAN TECH Electronically Authenticated by: Clem Bedoya MD On 05/22/2016 08:54 PM CDT Jenn Rasmussen/genaro TD: 10/20/2015 14:48 documented in this encounter Plan of Treatment Not on file documented as of this encounter Visit Diagnoses Diagnosis Carpal tunnel syndrome of left wrist Carpal tunnel syndrome of right wrist Sleep apnea Unspecified sleep apnea Restless legs syndrome Restless legs syndrome (RLS) documented in this encounter Care Teams Post Acute Care Nurse Practitioner Relationship Specialty Start Date End Date Quentin Dewitt NP PCP - General 12/29/13 12/06/16 documented as of this encounter
--- OUTSIDE RECORDS SUMMARY | 2024-09-17 13:01 | XMS_ITS | Encounter Summary ---
Author Organization [facility] Healthcare Address [address] [place] [address] Care Team Providers Care Java Web Application Developer Name Role Phone Renate Quentin English NP Primary Care Provi christian Encounter Details Date Type Department Care Team (Late st Contact Info) Description 06/10/2014 10:15 AM CDT - 06/10/2014 1:00 PM CDT Hospital Encounter [facility] Job Wallace Other specified oesophagitis; Stricture and stenosis of esophagus; Esophageal reflux; Other specified gastritis; Duodenitis Social History Tobacco Use Types Packs/Day Years Used Date Smoking Tobacco: Smoker, Current Status Unknown Alcohol Use Standard Drinks/Week Comments No 0 (1 standard drink = 0.6 oz pur e alcohol) Sex and Gender Information Value Date Recorded Sex Assigned at Not on file Legal Sex Male 8:02 AM FLOORING MACHINE FEEDER Gender Identity Not on file Sexual Orientation Not on file documented as of this encounter Plan of Treatment Not on file documented as of this encounter Procedures Procedure Name Priority Date/Time Associated Diagnosis Comments SURGICAL PATHOLOGY REPORT Routine 06/10/2014 1:01 PM CDT EGD IMAGES 06/10/2014 MICROBIOLOGY SUMMARY Routine 06/10/2014 12:00 AM CDT DISCHARGE LABORATORY CUMULATIVE REPORT Routine 06/10/2014 12:00 AM CDT documented in this encounter Results * Surgical Pathology Report (06/10/2014 1:01 PM CDT) 06/10/2014 1:01 PM CDT Narrative HISTORICAL RESULTS - 06/11/2014 3:23 PM CDT [facility] Patient No: [id number] Patient Name: THOMAS CLEMENT )[id number] Age: 43 YRS ?? : 1970 Admit Phys: JOB KEYES MD Case #: [id number] ? Date: 06/10/14 SPECIMEN SOURCE: ? Biopsy distal esophagus. CLINICAL INFORMATION AND IMPRESSION: ? Dysphagia/GERD. ??Ulcerative esophagitis. ??EGD. GROSS DESCRIPTION: ? The specimen is submitted in one container labeled Thomas ? Clement and esophagus biopsy. It is submitted in formalin ? and consists of two fragments of knowles soft tissue that ? measures 0.1 cm in maximum dimensions. ??All submitted in one ? cassette. ?SJ/mm/lm MICROSCOPIC DESCRIPTION: ? Microscopic examination reveals benign, non-neoplastic ? squamous and glandular mucosa, consistent with tissue ? obtained from the distal esophagus. ??The glandular mucosa ? appears as gastric type mucosa. ??It is mildly inflamed ? (mostly lymphocytes and plasma cells) but I do not identify ? any specialized columnar metaplasia or other significant ? alterations in association with it. ??The squamous mucosa does ? have areas of erosion/ulceration, accompanied by reactive ? cellular alterations that include hyperplasia of the basal ? cell layer, reactive/reparative epithelial atypia and patchy ? surface hyperkeratosis. I do not identify any viral ? cytopathic effect or fungal organisms by routine light ? microscopy. ?SR/lm DIAGNOSIS: ? DISTAL ESOPHAGUS, BIOPSIES: ? -EROSION/ULCERATION ? -REACTIVE CELLULAR ALTERATIONS ? [id number], [id number], [id number] ? Pathologist: Denice Dick M.D. ??Electronic ?signature ? SCR SCR/LM 06/11/14 us Historical Provider MD LAB PATHOLOGY ORDERABLES Final Result HISTORICAL RESULTS * Microbiology Summary (06/10/2014 12:00 AM CDT) 06/10/2014 Narrative HISTORICAL RESULTS - 06/12/2014 2:57 AM CDT ? [facility] ?CLINICAL LABORATORIES ? MICROBIOLOGY REPORT PATIENT NAME: ??THOMAS CLEMENT ? MED RECORD#: ??[id number] BIRTHDATE: ??1970 ?? AGE: ??43 YRS SEX: M ?PATIENT#: ? [id number] ADMITTING DR: ??JOB KEYES MD ? ATTENDING DR: ??JOB KEYES MD ?ACCESSION#: ?? [id number] CREATED: ??06/12/14 ?? 0245 ? ADMIT DATE: ?? 06/10/14 ? MICRO - MISCELLANEOUS H PYLORI UREASE SCREEN ?Collected: 06/10/14 1220 ? Received: 06/10/14 1248 Source: TISSUE ?Started: 06/10/14 1249 ?TISSUE ?06/11/14 1214 ? NEGATIVE WILL TEST ?? END OF CHART us Historical Provider MD LAB MICROBIOLOGY - GENERA L ORDERABLES Final Result HISTORICAL RESULTS * Discharge Laboratory Cumulative Report (06/10/2014 12:00 AM CDT) 06/10/2014 Narrative HISTORICAL RESULTS - 06/12/2014 2:45 AM CDT Patient No: [id number] ? [facility] Patient Name: THOMAS CLEMENT ? [facility] Age: 43 YRS ?: 1970 ?Sex:M ?[address] )[id number] ?? Adm Dt: 06/10/2014 ?[place] ??[address] Created: 06/12/2014 ??0245 ?? Pt. Type: O ? Discharge Dt: 06/10/2014 ? Pathologists: Denice Dick MD Admit Attend Dr: JOB KEYES MD ?S Nicola [facility] ?P A T H O L O G Y ?R E P O R T ? Case #: ?[id number] ? Date: 06/10/14 SPECIMEN SOURCE: ? Biopsy distal esophagus. CLINICAL INFORMATION AND IMPRESSION: ? Dysphagia/GERD. ??Ulcerative esophagitis. ??EGD. GROSS DESCRIPTION: ? The specimen is submitted in one container labeled Thomas Clement and ? esophagus biopsy. It is submitted in formalin and consists of two fragments ? of knowles soft tissue that measures 0.1 cm in maximum dimensions. ??All submitted ? in one cassette. ?SJ/mm/lm MICROSCOPIC DESCRIPTION: ? Microscopic examination reveals benign, non-neoplastic squamous and glandular ? mucosa, consistent with tissue obtained from the distal esophagus. ??The ? glandular mucosa appears as gastric type mucosa. ??It is mildly inflamed ? (mostly lymphocytes and plasma cells) but I do not identify any specialized ? columnar metaplasia or other significant alterations in association with it. ? The squamous mucosa does have areas of erosion/ulceration, accompanied by ? reactive cellular alterations that include hyperplasia of the basal cell ? layer, reactive/reparative epithelial atypia and patchy surface ? hyperkeratosis. I do not identify any viral cytopathic effect or fungal ? organisms by routine light microscopy. ?SR/lm ?? CONTINUED ?Page: ?? 1 Patient No: [id number] ? [facility] Patient Name: THOMAS CLEMENT ? [facility] Age: 43 YRS ?: 1970 ?Sex:M ?[address] )[id number] ?? Adm Dt: 06/10/2014 ?[place], [place] ??[address] Created: 06/12/2014 ??0245 ?? Pt. Type: O ? Discharge Dt: 06/10/2014 ? Pathologists: Denice Dick MD Admit Dr. Herrera Dr: JOB KEYES MD ?S Nicola Rios [facility] ?P A T H O L O G Y ?R E P O R T ? Case #: ?[id number] ? Date: 06/10/14 DIAGNOSIS: ? DISTAL ESOPHAGUS, BIOPSIES: ? -EROSION/ULCERATION ? -REACTIVE CELLULAR ALTERATIONS ? [id number], [id number], [id number] ? MICRO - MISCELLANEOUS H PYLORI UREASE SCREEN ?Collected: 06/10/14 1220 ? Received: 06/10/141247 Source: TISSUE ?Started: 06/10/141248 ?TISSUE ? FINAL REPORT ?06/11/14 1214 ? NEGATIVE WILL TEST ? Pathologist: Denice Dick M.D. ??Electronic signature ? SCR SCR/LM 06/11/14 ?? END OF CHART ? Page: ?? 2 us Historical Provider LAB BLOOD ORDERABLES Gisele l Result HISTORICAL RESULTS * EGD IMAGES (06/10/2014) Anatomical Region Laterality Modality Other Narrative 06/10/2014 Ordered by an unspecified provider. us Historical Provider GI PROCEDURE ORDERABLES F inal Result documented in this encounter Visit Diagnoses Diagnosis Other specified oesophagitis Other esophagitis Stricture and stenosis of esophagus Esophageal reflux Other specified gastritis Duodenitis documented in this encounter Care Teams Java Web Application Developer Relationship Specialty Start Date End Date Quentin Dewitt NP PCP - General 12/29/13 12/06/16 documented as of this encounter
--- OUTSIDE RECORDS SUMMARY | 2024-09-17 13:19 | XMS_ITS | Encounter Summary ---
Author Organization [facility] Address [address] [place] [address] Care Team Providers Care Foam Rubber Molder Name Role Phone La Kearney MD Primary Care Provide r Encounter Details Date Type Department Care Team (Late st Contact Info) Description 12/25/2023 External Device Data STL ABSTRACTION Provider, Abstract NO ADDRESS ON FILE Social History Tobacco Use Types Packs/Day Years Used Date Smoking Tobacco: Never Smokeless Tobacco: Never Sex and Gender Information Value Date Recorded Sex Assigned at Not on file Gender Identity Not on file Sexual Orientation Not on file documented as of this encounter Plan of Treatment Upcoming Encounters Date Type Department Care Team (Late st Contact Info) Description 09/21/2024 9:00 AM DESIGN ARCHITECT Appointment [facility] Nuclear Medicine [address] [place] [address] Rafael Anton MD [address] [facility] [address] [place] [address] 09/21/2024 10:00 AM DESIGN ARCHITECT Appointment [facility] Nuclear Medicine [address] [place] [address] Rafael Anton MD [address] [place] [address] 11/18/2024 8:15 AM CDT Office Visit [facility] Heart and Vascular At [facility] [address] [facility] [address] [place] [address] Rafael Anton MD [address] [place] [address] documented as of this encounter Visit Diagnoses Not on filedocumented in this encounter Care Teams Foam Rubber Molder Relationship Specialty Start Date End Date La Kearney MD [address] [place] [address] [place] [phone] PCP - General Family Practice 08/13/23 documented as of this encounter
--- OUTSIDE RECORDS SUMMARY | 2024-09-17 13:19 | XMS_ITS | Encounter Summary ---
Author Organization [facility] Address [address] [place] [address] Care Team Providers Care Apparatus Operator Name Role Phone La Kearney MD Primary Care Provide r Reason for Visit * Reason Onset Date Comments Results 09/13/2023 Encounter Details Date Type Department Care Team (Late st Contact Info) Description 09/13/2023 Telephone [facility] Heart and Vascular At [facility] [address] [facility] [address] [place] [address] Rafael Anton MD [facility] [address] [facility] [address] [place] [address] Results Social History Tobacco Use Types Packs/Day Years Used Date Smoking Tobacco: Never Smokeless Tobacco: Never Sex and Gender Information Value Date Recorded Sex Assigned at Not on file Gender Identity Not on file Sexual Orientation Not on file documented as of this encounter Miscellaneous Notes * Telephone Encounter - Vira Clark RN - 09/16/2023 10:49 AM ENAMEL FINISHER PC to pt, results reviewed. Pt to follow up in November, Pt verbalized understanding. EL FINISHER * Telephone Encounter - Cortney Yan - 09/13/2023 4:25 PM CST Patient states he has not heard anything about his holter monitor results from mid August. Pleasecall patient at [phone]. Thank you. EL FINISHER documented in this encounter Plan of Treatment Upcoming Encounters Date Type Department Care Team (Late st Contact Info) Description 09/21/2024 9:00 AM ENAMEL FINISHER Appointment [facility] Nuclear Medicine [address] [place] [address] Rafael Anton MD [address] [facility] [address] [place] [address] 09/21/2024 10:00 AM ENAMEL FINISHER Appointment [facility] Nuclear Medicine [address] [place] [address] Rafael Anton MD [address] [facility] [address] [place] [address] 11/18/2024 8:15 AM CDT Office Visit [facility] Heart and Vascular At [facility] [address] [facility] [address] [place] [address] Rafael Anton MD [address] [facility] [address] [place] [address] documented as of this encounter Visit Diagnoses Not on filedocumented in this encounter Care Teams Apparatus Operator Relationship Specialty Start Date End Date La Kearney MD [address] [facility] [facility] [address]UC[address] [place] [phone] PCP - General Family Practice 08/13/23 documented as of this encounter
--- OUTSIDE RECORDS SUMMARY | 2024-09-17 13:19 | XMS_ITS | Encounter Summary ---
Author Organization [facility] Address [address] [place] [address] Care Team Providers Care Poultry Pinner Name Role Phone La Kearney MD Primary Care Provide r Encounter Details Date Type Department Care Team (Late st Contact Info) Description 10/31/2023 External Device Data STL ABSTRACTION Provider, Abstract [...] st Contact Info) Description 09/21/2024 9:00 AM PAWN BROKER Appointment [facility] Nuclear Medicine [address] [place] [address] Rafael Anton MD [address] [facility] [address] [place] [address] 09/21/2024 10:00 AM PAWN BROKER Appointment [facility] Nuclear Medicine [address] [place] [address] Rafael Anton MD [address] [place] [address] 11/18/2024 8:15 AM CDT Office Visit [facility] Heart and Vascular At [facility] [address] [facility] [address] [place] [address] Rafael Anton MD [address] [place] [address] documented as of this encounter Visit Diagnoses Not on filedocumented in this encounter Care Teams Poultry Pinner Relationship Specialty Start Date End Date La Kearney MD [address] [place] [address] [place] [phone] PCP - General Family Practice 08/13/23 documented as of this encounter
--- OUTSIDE RECORDS SUMMARY | 2024-09-17 13:19 | XMS_ITS | Encounter Summary ---
Author Organization [facility] Address [address] [place] [address] Care Team Providers Care Certified Registered Dental Assistant Name Role Phone La Kearney MD Primary Care Provide r Encounter Details Date Type Department Care Team (Late st Contact Info) Description 10/25/2023 External Device Data STL ABSTRACTION Provider, Abstract [...] st Contact Info) Description 09/21/2024 9:00 AM LUBE ATTENDANT Appointment [facility] Nuclear Medicine [address] [place] [address] Rafael Anton MD [address] [facility] [address] [place] [address] 09/21/2024 10:00 AM LUBE ATTENDANT Appointment [facility] Nuclear Medicine [address] [place] [address] Rafael Anton MD [address] [place] [address] 11/18/2024 8:15 AM CDT Office Visit [facility] Heart and Vascular At [facility] [address] [facility] [address] [place] [address] Rafael Anton MD [address] [place] [address] documented as of this encounter Visit Diagnoses Not on filedocumented in this encounter Care Teams Certified Registered Dental Assistant Relationship Specialty Start Date End Date La Kearney MD [address] [place] [address] [place] [address] PCP - General Family Practice 08/13/23 documented as of this encounter
--- OUTSIDE RECORDS SUMMARY | 2024-09-17 13:19 | XMS_ITS | Encounter Summary ---
Author Organization [facility] Address [address] [place] [address] Care Team Providers Care Plant Engineering Supervisor Name Role Phone La Kearney MD Primary Care Provide r Reason for Visit * Reason Onset Date Comments Medication Question 09/25/2023 Encounter Details Date Type Department Care Team (Late st Contact Info) Description 09/25/2023 Telephone [facility] Heart and Vascular At [facility] [address] [facility] [facility] [address] [place] [address] Rafael Anton MD [facility] [address] [facility] [address] [place] [address] Medication Question Social History Tobacco Use Types Packs/Day Years Used Date Smoking Tobacco: Never Smokeless Tobacco: Never Sex and Gender Information Value Date Recorded Sex Assigned at Not on file Gender Identity Not on file Sexual Orientation Not on file documented as of this encounter Miscellaneous Notes * Telephone Encounter - Vira Clark RN - 09/25/2023 4:50 PM CST PC to pt, spoke to . States pt needs a refill on Metoprolol sent to [facility], sent at this time. She verbalized understanding. TRING MAKER * Telephone Encounter - Millie Camp - 09/25/2023 3:39 PM CST Patients called and needs to verify medications,refills and the pharmacy stating there are issues. Please call Alida at [phone]. Thank you. TRING MAKER documented in this encounter Plan of Treatment Upcoming Encounters Date Type Department Care Team (Late st Contact Info) Description 09/21/2024 9:00 AM BOWSTRING MAKER Appointment [facility] Nuclear Medicine [address] [place] [address] Rafael Anton MD [address] [facility] [address] [place] [address] 09/21/2024 10:00 AM BOWSTRING MAKER Appointment [facility] Nuclear Medicine [address] [place] [address] Rafael Anton MD [address] [facility] [address] [place] [address] 11/18/2024 8:15 AM CDT [facility] Visit [facility] Heart and Vascular At [facility] [address] [facility] [address] [place] [address] Rafael Anton MD [address] [facility] [address] [place] [address] documented as of this encounter Visit Diagnoses Not on filedocumented in this encounter Care Teams Plant Engineering Supervisor Relationship Specialty Start Date End Date La Kearney MD [address] LUCAS [address] [place] [phone] PCP - General Family Practice 08/13/23 documented as of this encounter
--- OUTSIDE RECORDS SUMMARY | 2024-09-17 13:19 | XMS_ITS | Encounter Summary ---
Author Organization [facility] Address [address] [place] [address] Care Team Providers Care Pharmacy Technician Instructor Name Role Phone La Kearney MD Primary Care Provide r Encounter Details Date Type Department Care Team (Late st Contact Info) Description 01/28/2024 External Device Data STL ABSTRACTION Provider, Abstract [...] st Contact Info) Description 09/21/2024 9:00 AM AMMONIA BOX TENDER Appointment [facility] Nuclear Medicine [address] [place] [address] Rafael Anton MD [address] [facility] [address] [place] [address] 09/21/2024 10:00 AM AMMONIA BOX TENDER Appointment [facility] Nuclear Medicine [address] [place] [address] Rafael Anton MD [address] [place] [address] 11/18/2024 8:15 AM CDT Office Visit [facility] [address] [facility] [address] [place] [address] Rafael Anton MD [address] [place] [address] documented as of this encounter Visit Diagnoses Not on filedocumented in this encounter Care Teams Pharmacy Technician Instructor Relationship Specialty Start Date End Date La Kearney MD [address] [place] [address] [place] [phone] PCP - General Family Practice 08/13/23 documented as of this encounter
--- OUTSIDE RECORDS SUMMARY | 2024-09-17 13:19 | XMS_ITS | Encounter Summary ---
Author Organization [facility] Address [address] [place] [address] Care Team Providers Care Branch Lending Manager Name Role Phone La Kearney MD Primary Care Provide r Reason for Referral * Cardiology Testing (Routine) - Closed Specialty Diagnoses / Procedures Referred By Zaida caamcho Referred To Contact Diagnoses Palpitations Procedures MOBILE CARDIAC OUTPATIENT TELEMETRY Rafael Anton MD [address] [place] [address] [address] [place] [address] Referral ID Status Reason Start Date Expiration Date Visits Re quested Visits Authorized [id number] Closed 08/13/2023 09/12/2024 1 1 GE AIDE Reason for Visit * Reason Comments Establish Care Palpitations Encounter Details Date Type Department Care Team (Latest Contact Info) Description 08/13/2023 10:15 AM CHARGE AIDE Office Visit [facility] and Vascular At [address] [place] [address] Rafael Anton MD [address] [place] [address] [address] [place] [address] Palpitations (Primary Dx); Premature atrial complexes; Benign hypertension; Mixed hyperlipidemia Social History Tobacco Use Types Packs/Day Years Used Date Smoking Tobacco: Never Smokeless Tobacco: Never Sex and Gender Information Value Date Recorded Sex Assigned at Not on file Gender Identity Not on file Sexual Orientation Not on file documented as of this encounter Last Filed Vital Signs Vital Sign Reading Time Taken Comments Blood Pressure 144/76 08/13/2023 9:53 AM CHARGE AIDE Pulse 64 08/13/2023 9:53 AM CHARGE AIDE Temperature - - Respiratory Rate - - Oxygen Saturation 97% 08/13/2023 9:53 AM CHARGE AIDE Inhaled Oxygen Concentration - - Weight 126.7 kg (279 lb 6.4 oz) 08/13/2023 9:53 AM CHARGE AIDE Height 188 cm (6' 2 ) 08/13/2023 9:53 AM CHARGE AIDE Body Mass Index 35.87 08/13/2023 9:53 AM CHARGE AIDE documented in this encounter Progress Notes * Rafael Anton MD - 08/13/2023 10:11 AM CSTAssociated Order(s): EKG Post-Procedure Diagnose(s): Palpitations CARDIOLOGY [facility] History of Present Illness: Jaden De La Torre is a 52 y.o. year old male who presents to establish cardiovascular care. Recent ER visit on 07/28/2023 for palpitations. Found to have frequent PACs, started on lopressor PRN Palpitations - started about a month ago. No clear precipitations. Caffeine - drinks 2+ sodas, several cups of coffee. Has switched to decaffeine. Alcohol - drinks 5-6 beers in a sitting occasionally. Has TAJ, uses CPAP but has not re-titrated machine in several years now. Currently continues to have daily palpitations, but improved recently after cutting down on caffeine, alcohol use. Otherwise, denies chest pain, shortness of breath, syncope, near syncope, lower extremity edema, orthopnea, paroxysmal nocturnal dyspnea. Works for [employer] in [place] Current Outpatient Medications Medication Instructions buPROPion HCL (WELLBUTRIN XL) 300 mg, Oral lisinopriL (PRINIVIL) 5 mg, Oral, DAILY AT BEDTIME metoprolol succinate (TOPROL XL) 50 mg, Oral, DAILY AT BEDTIME pramipexole (MIRAPEX) 1.5 mg, Oral pravastatin (PRAVACHOL) 40 mg, Oral, DAILY tadalafiL (CIALIS) 20 mg, Oral Not on File No family history on file. Social History Tobacco Use Smoking status: Never Smokeless tobacco: Never Review of systems: As per HPI. All other systems are reviewed and negative for significant findings. PHYSICAL EXAM Blood pressure (!) 144/76, pulse 64, height 6' 2 (1.88 m), weight 126.7 kg (279 lb 6.4 oz), SpO2 97 %. Body mass index is 35.87 kg/m??. General: No acute distress, oriented, looks well Skin: No rashes, xanthelasma, or notable icterus. Head/Neck: No jugular distension or carotid bruits. CV: Normal rate with regular rhythm. No murmurs, rubs, or gallops noted. Lungs: Clear to auscultation bilaterally. No rales, rhonchi, or wheezes noted. Abd: Soft, nontender, nondistended. No organomegaly noted. Ext: No clubbing, edema, or cyanosis. +DP pulses bilaterally. Neuro: Alert and oriented x 3. No focal deficits noted. Diagnostic Data: No results found for: NA , K , CL , CO2 , CA , BUN , CREAT , GLUCOSE , ANIONGAP , BCRATIO No results found for: WBC , MANUALWBC , HGB , HGBPOC , HCT , HCTPOC , PLT , MCV No results found for: CHOLTOT , HDL , LDLCALC , LDLDIRECT , TRIGLYCERIDE No results found for: HGBA1C , [id number] The ASCVD Risk score ([place] DK, et al., 2019) failed to calculate for the following reasons: Cannot find a previous HDL lab Cannot find a previous total cholesterol lab Stress echo 08/25/2023: Conclusions: Adequate stress test in regards to heart rate. No exercise induced chest pain. No definite ischemia on stress EKG. No Echocardiographic evidence of ischemia. 30 day event monitor 2018: Conclusions: 1. Predominant rhythm is normal sinus [...] of which were associated with sinus rhythm. EKG today EKG Date/Time: 08/13/2023 10:15 AM Performed by: Rafael Anton MD Authorized by: Rafael Anton MD Rhythm: sinus rhythm Annotated Image ASSESSMENT EKG at OSH shows sinus rhythm with PACs reportedly Essential hypertension Dyslipidemia PLAN Increase metoprolol to 50 XL once daily Discussed risk factor modification in detail Encouraged cutting down on caffeine, alcohol intake Recommended re-titration of CPAP machine Regular exercise, weight loss 2 week MCOT to evaluate PAC burden Continue PRN metoprolol 25 PRN for palpitations Continue lisinopril 5 for blood pressure Follow up in 3 months to review symptoms, MCOT monitor in person Lipids managed by PCP - continue pravastatin I appreciate the opportunity in participating in Jaden De La Torre's care. Will plan to follow-up with him in Return in about 3 months (around 11/12/2023). or sooner if he develops any new or worsening symptoms. Rafael Anton MD [facility] Voice recognition software was used to complete this document, therefore, commutator inspector variances may occur. GE AIDE * Arina Gibbs - 08/13/2023 9:45 AM CST Patient is here to establish care for Palpitations. Pt stated having heart flutters and sob. GE AIDE documented in this encounter Miscellaneous Notes * Patient Instructions - Rafael Anton MD - 08/13/2023 10:30 AM CST Increase metoprolol to 50mg once per day Continue as-needed lopressor 2 week monitor No activity restrictions. GE AIDE documented in this encounter Plan of Treatment Upcoming Encounters Date Type Department Care Team (Late st Contact Info) Description 09/21/2024 9:00 AM CHARGE AIDE Appointment [facility] Nuclear Medicine [address] [place] [address] Rafael Anton MD [address] [facility] [address] [place] [address] 09/21/2024 10:00 AM CHARGE AIDE Appointment [facility] Nuclear Medicine [address] [place] [address] Rafael Anton MD [address] [facility] [address] [place] [address] 11/18/2024 8:15 AM CDT Office Visit [facility] [address] [address] [place] [address] Rafael Anton MD [address] [facility] [address] [place] [address] Scheduled Orders Name Type Priority Associated Diagnoses Orde r Schedule MOBILE CARDIAC OUTPATIENT TELEMETRY Cardiac Services Routine Palpitations Ordered: 08/13/2023 documented as of this encounter Procedures Procedure Name Priority Date/Time Associated Diagnosis Comments AL ECG ROUTINE ECG W/LEAST 12 LDS W/I&R Routine 08/13/2023 10:15 AM CHARGE AIDE Palpitations documented in this encounter Results * AL ECG ROUTINE ECG W/LEAST 12 LDS W/I&R (08/13/2023 10:15 AM CHARGE AIDE) Narrative [facility] - 08/13/2023 10:15 AM CHARGE AIDE Rafael Anton MD ? 08/13/2023 10:40 AM EKG Date/Time: 08/13/2023 10:15 AM Performed by: Rafael Anton MD Authorized by: Rafael Anton MD ??Rhythm: sinus rhythm Procedure Note Rafael Anton MD - 08/13/2023 10:11 AM CST CARDIOLOGY [facility] History of Present Illness: Jaden De La Torre is a 52 y.o. year old male who presents to establishcardiovascular care. Recent ER visit on 07/28/2023 for palpitations. Found to have frequentPACs, started on lopressor PRN Palpitations - started about a month ago. No clear precipitations. Caffeine - drinks 2+ sodas, several cups of coffee. Has switched to decaffeine. Alcohol - drinks 5-6 beers in a sitting occasionally. Has TAJ, uses CPAP but has not re-titrated machine in several years now. Currently continues to have daily palpitations, but improved recentlyafter cutting down on caffeine, alcohol use. Otherwise, denies chest pain, shortness of breath, syncope, near syncope,lower extremity edema, orthopnea, paroxysmal nocturnal dyspnea. Works for [employer] [place] Current Outpatient Medications Medication Instructions buPROPion HCL (WELLBUTRIN XL) 300 mg, Oral lisinopriL (PRINIVIL) 5 mg, Oral, DAILY AT BEDTIME metoprolol succinate (TOPROL XL) 50 mg, Oral, DAILY AT BEDTIME pramipexole (MIRAPEX) 1.5 mg, Oral pravastatin (PRAVACHOL) 40 mg, Oral, DAILY tadalafiL (CIALIS) 20 mg, Oral Not on File No family history on file. Social History Tobacco Use Smoking status: Never Smokeless tobacco: Never Review of systems: As per HPI. All other systems are reviewed andnegative for significant findings. PHYSICAL EXAM Blood pressure (!) 144/76, pulse 64, height 6' 2 (1.88 m), weight 126.7kg (279 lb 6.4 oz), SpO2 97 %. Body mass index is 35.87 kg/m??. General: No acute distress, oriented, looks well Skin: No rashes, xanthelasma, or notable icterus. Head/Neck: No jugular distension or carotid bruits. CV: Normal rate with regular rhythm. No murmurs, rubs, or gallopsnoted. Lungs: Clear to auscultation bilaterally. No rales, rhonchi, or wheezesnoted. Abd: Soft, nontender, nondistended. No organomegaly noted. Ext: No clubbing, edema, or cyanosis. +DP pulses bilaterally. Neuro: Alert and oriented x 3. No focal deficits noted. Diagnostic Data: No results found for: NA , K , CL , CO2 , CA , BUN , CREAT , GLUCOSE , ANIONGAP , BCRATIO No results found for: WBC , MANUALWBC , HGB , HGBPOC , HCT , HCTPOC , PLT , MCV No results found for: CHOLTOT , HDL , LDLCALC , LDLDIRECT , TRIGLYCERIDE No results found for: HGBA1C , [id number] The ASCVD Risk score ([place] DK, et al., 2019) failed to calculate for thefollowing reasons: Cannot find a previous HDL lab Cannot find a previous total cholesterol lab Stress echo 08/25/2023: Conclusions: Adequate stress test in regards to heart rate. No exercise induced chest pain. No definite ischemia on stress EKG. No Echocardiographic evidence of ischemia. 30 day event monitor 2018: Conclusions: 1. Predominant rhythm is normal sinus [...] all of which were associated with sinusrhythm. EKG today EKG Date/Time: 08/13/2023 10:15 AM Performed by: Rafael Anton MD Authorized by: Rafael Anton MD Rhythm: sinus rhythm Annotated Image ASSESSMENT EKG at OSH shows sinus rhythm with PACs reportedly Essential hypertension Dyslipidemia PLAN Increase metoprolol to 50 XL once daily Discussed risk factor modification in detail Encouraged cutting down on caffeine, alcohol intake Recommended re-titration of CPAP machine Regular exercise, weight loss 2 week MCOT to evaluate PAC burden Continue PRN metoprolol 25 PRN for palpitations Continue lisinopril 5 for blood pressure Follow up in 3 months to review symptoms, MCOT monitor in person Lipids managed by PCP - continue pravastatin I appreciate the opportunity in participating in Jaden De La Torre's care.Will plan to follow-up with him in Return in about 3 months (around11/12/2023). or sooner if he develops any new or worsening symptoms. Rafael Anton MD [facility] Voice recognition software was used to complete this document, therefore,commutator inspector variances may occur. Rafael Anton MD ECG ORDERABLES [facility] CLIA #[id number] [address] [place] [address] documented in this encounter Visit Diagnoses Diagnosis Palpitations- Primary Premature atrial complexes Supraventricular premature beats Benign hypertension Essential hypertension, benign Mixed hyperlipidemia documented in this encounter Care Teams Branch Lending Manager Relationship Specialty Start Date End Date La Kearney MD [address] [place] [address] PCP - General Family Practice 08/13/23 documented as of this encounter
--- OUTSIDE RECORDS SUMMARY | 2024-09-17 13:19 | XMS_ITS | Continuity of Care Document ---
Author Organization [facility] Address [address] [place] [address] [address] [place] [address] Phone Care Team Providers Care Rn Acute Name Role Phone Paco Burns Unavailable Unavailable Procedures Procedure Date Office/outpatient Visit, [facility] Advance Directives Directive Yes / No Effective Date File Name No Information Encounters Encounter Description Practice Location Reason(s) For Visit Diagnoses Date Provider Providers Copied on Encounter Office/outpat ient Visit, [facility], [address] [place] [address] [address], [place], [place], [id number], [place] tel:[phone] [facility] [place] No Information [phone] Doisy Edward. [address] [place] , [address], [place], [address], [place]. tel:[phone] Family History Family Member Type Diagnosis Age At Onset No Information Payers Payer name Insurance type Covered green party ID Authorluisaa hyacinth(s) [facility] [id number] Social History Type Description Quantity Date Captured Comments Sex Male Smoking Status No Information Chief Complaint And Reason For Visit No Information Reason For Referral Reason For Referral No Information History Of Present Illness Encounter Date Complaint History Of Prese nt Illness No Information Functional Status Date Functional Assessmen t No Information Instructions Date Instruction Additional Infor mation No Information Assessments Type Assessment Date No Information Patient Care Teams Name Effective Dates (start - stop) Status Members No Information
--- OUTSIDE RECORDS SUMMARY | 2024-09-17 13:19 | XMS_ITS | Encounter Summary ---
Author Organization [facility] Address [address] [place] [address] Care Team Providers Care Trauma Manager Name Role Phone La Kearney MD Primary Care Provide r Reason for Visit * Cardiology Testing (Routine) - Closed Specialty Diagnoses / Procedures Referred By Zaida camacho Referred To Contact Diagnoses Palpitations Procedures MOBILE CARDIAC OUTPATIENT TELEMETRY Rafael Anton MD [address] [facility] [address] [place] [address] Referral ID Status Reason Start Date Expiration Date Visits Re quested Visits Authorized [id number] Closed 08/13/2023 09/12/2024 1 1 Encounter Details Date Type Department Care Team (Latest Contact Info) Description 08/13/2023 10:43 AM SERVICE SPRINKLER HELPER - 08/13/2023 11:59 PM SERVICE SPRINKLER HELPER Hospital Encounter [facility] Non Invasive Cardiology [address] [place] [address] Rafael Anton MD [address] [facility] [address] [place] [address] Discharge Disposition: Home or Self Care Social History Tobacco Use Types Packs/Day Years Used Date Smoking Tobacco: Never Smokeless Tobacco: Never Sex and Gender Information Value Date Recorded Sex Assigned at Not on file Gender Identity Not on file Sexual Orientation Not on file documented as of this encounter Medications at Time of Discharge Medication Sig Dispensed Refills Start Date End Date buPROPion HCL (WELLBUTRIN XL) 300 mg Extended Release 24 hour tablet Take 300 mg by mouth. 06/10/2023 tadalafiL (CIALIS) 20 mg tablet Take 20 mg by mouth. 01/29/2023 01/29/2024 lisinopriL (PRINIVIL) 5 mg tablet Take 5 mg by mouth daily at bedtime. 06/10/2023 05/20/2024 pravastatin (PRAVACHOL) 40 mg tablet Take 40 mg by mouth daily. 06/06/2023 05/20/2024 pramipexole (MIRAPEX) 1.5 mg Tablet Take 1.5 mg by mouth. 06/10/2023 05/20/2024 metoprolol succinate (TOPROL XL) 50 mg Extended Release 24 hour tablet Take 1 Tablet (50 mg) by mouth daily at bedtime. 30 Tablet 6 08/13/2023 09/25/2023 documented as of this encounter Procedure Notes * Dima Cohen MD - 08/31/2023 3:20 AM CSTAssociated Order(s): HOLTER MONITOR [place], [place] [address] Manufacturing Engineering Manager Report CSN: [id number] DATE OF SERVICE: 08/13/2023 ORDERING PROVIDER Rafael Anton MD ENROLLMENT 08/13/2023 through 08/26/2023. INDICATION Palpitation. IMPRESSION Underlying rhythm is sinus rhythm with an average heart rate of 64 with a range of 50 to 117. The PAC burden and PVC burden were both less than 1%. There were 25 patient-triggered events with symptoms of heart racing, skipped beat, chest pain, none indicated, which mostly corresponded to sinus rhythm or sinus bradycardia with no ectopy, but on 4 occasions corresponded to sinus bradycardia, sinus rhythm with PAC. There were several autotriggered events available for review, which corresponded tosinus rhythm, sinus bradycardia with a PVC. TD:MEDQ DID: [id number] Dictated by: Dima Cohen MD CC: Rafael Anton MD ICE SPRINKLER HELPER documented in this encounter Plan of Treatment Upcoming Encounters Date Type Department Care Team (Late st Contact Info) Description 09/21/2024 9:00 AM SERVICE SPRINKLER HELPER Appointment [facility] Nuclear Medicine [address] [place] [address] Rafael Anton MD [address] [address] [place] [address] 09/21/2024 10:00 AM SERVICE SPRINKLER HELPER Appointment [facility] Nuclear Medicine [address] [place] [address] Rafael Anton MD [address] [facility] [address] [place] [address] 11/18/2024 8:15 AM CDT Office Visit [facility] Heart and Vascular At [facility] [address] [facility] [address] [place] [address] Rafael Anton MD [address] [facility] [address] [place] [address] documented as of this encounter Procedures Procedure Name Priority Date/Time Associated Diagnosis Comments HOLTER MONITOR 08/31/2023 3:20 AM SERVICE SPRINKLER HELPER documented in this encounter Results * HOLTER MONITOR (08/31/2023 3:20 AM SERVICE SPRINKLER HELPER) Narrative Procedure Note Dima Cohen MD - 08/31/2023 3:20 AM CST [place], [place] [address] Manufacturing Engineering Manager Report CSN: [id number] DATE OF SERVICE: 08/13/2023 ORDERING PROVIDER Rafael Anton MD ENROLLMENT 08/13/2023 through 08/26/2023. INDICATION Palpitation. IMPRESSION Underlying rhythm is sinus rhythm with an average heart rate of 64 with arange of 50 to 117. The PAC burden and PVC burden were both less than 1%.There were 25 patient-triggered events with symptoms of heart racing,skipped beat, chest pain, none indicated, which mostly corresponded tosinus rhythm or sinus bradycardia with no ectopy, but on 4 occasionscorresponded to sinus bradycardia, sinus rhythm with PAC. There wereseveral autotriggered events available for review, which corresponded tosinus rhythm, sinus bradycardia with a PVC. TD:MEDQ DID:[id number] Dictated by: Dima Cohen MD CC: Rafael Anton MD Dima Cohen MD CARDIAC SERVICES ORD ERABLES [facility] CLIA #[id number] [address] [place] [address] documented in this encounter Visit Diagnoses Not on filedocumented in this encounter Care Teams Trauma Manager Relationship Specialty Start Date End Date La Kearney MD [address] [facility] [address] [place] [phone] PCP - General Family Practice 08/13/23 documented as of this encounter
--- OUTSIDE RECORDS SUMMARY | 2024-09-17 13:19 | XMS_ITS | Encounter Summary ---
Author Organization [facility] Address [address] [place] [address] Care Team Providers Care Pizza Delivery Name Role Phone La Kearney MD Primary Care Provide r Encounter Details Date Type Department Care Team (Late st Contact Info) Description 02/13/2024 External Device Data STL ABSTRACTION Provider, Abstract [...] st Contact Info) Description 09/21/2024 9:00 AM COLLEGE SPORTS ASSISTANT Appointment [facility] Nuclear Medicine [address] [place] [address] Rafael Anton MD [address] [facility] [address] [place] [address] 09/21/2024 10:00 AM COLLEGE SPORTS ASSISTANT Appointment [facility] Nuclear Medicine [address] [place] [address] Rafael Anton MD [address] [place] [address] 11/18/2024 8:15 AM CDT Office Visit [facility] [address] [facility] [address] [place] [address] Rafael Anton MD [address] [place] [address] documented as of this encounter Visit Diagnoses Not on filedocumented in this encounter Care Teams Pizza Delivery Relationship Specialty Start Date End Date La Kearney MD [address] [place] [address] [place] [address] PCP - General Family Practice 08/13/23 documented as of this encounter
--- OUTSIDE RECORDS SUMMARY | 2024-09-17 13:19 | XMS_ITS | Encounter Summary ---
Author Organization [facility] Address [address] [place] [address] Care Team Providers Care Adjunct Psychology Instructor Name Role Phone La Kearney MD Primary Care Provide r Encounter Details Date Type Department Care Team (Late st Contact Info) Description 10/28/2023 External Device Data STL ABSTRACTION Provider, Abstract [...] st Contact Info) Description 09/21/2024 9:00 AM ON SITE COORDINATOR Appointment [facility] Nuclear Medicine [address] [place] [address] Rafael Anton MD [address] [facility] [address] [place] [address] 09/21/2024 10:00 AM ON SITE COORDINATOR Appointment [facility] Nuclear Medicine [address] [place] [address] Rafael Anton MD [address] [place] [address] 11/18/2024 8:15 AM CDT Office Visit [facility] and Vascular At [facility] [address] [address] [address] [place] [address] Rafael Anton MD [address] [place] [address] documented as of this encounter Visit Diagnoses Not on filedocumented in this encounter Care Teams Adjunct Psychology Instructor Relationship Specialty Start Date End Date La Kearney MD [address] [place] [address] [place] [phone] PCP - General Family Practice 08/13/23 documented as of this encounter
--- OUTSIDE RECORDS SUMMARY | 2024-09-17 13:19 | XMS_ITS | Encounter Summary ---
Author Organization [facility] Address [address] [place] [address] Care Team Providers Care Body Welder Name Role Phone La Kearney MD Primary Care Provide r Reason for Visit * Echocardiography (Routine) - Closed Specialty Diagnoses / Procedures Referred By Zaida t Referred To Contact Diagnoses Palpitations Procedures ECHOCARDIOGRAM W/ CONTRAST AGENT ECHO COMPLETE Rafael Anton MD [address] [facility] [address] [place] [address] [facility] [address] [place] [address] Referral ID Status Reason Start Date Expiration Date Visits Re quested Visits Authorized [id number] Closed 11/13/2023 12/13/2024 1 1 Encounter Details Date Type Department Care Team (Latest Contact Info) Description 11/22/2023 10:21 AM CDT - 11/22/2023 11:59 PM T Hospital Encounter [facility] [address] [place] [address] Rafael Anton MD [address] [facility] [address] [place] [address] Discharge Disposition: Home or Self [...] tablet Take 300 mg by mouth. 06/10/2023 verapamiL (CALAN SR) 120 mg Sustained Release tablet Take 1 Tablet (120 mg) by mouth daily. 30 Tablet 6 11/13/2023 05/20/2024 tadalafiL (CIALIS) 20 mg tablet Take 20 mg by mouth. 01/29/2023 01/29/2024 lisinopriL (PRINIVIL) 5 mg tablet Take 5 mg by mouth daily at bedtime. 06/10/2023 05/20/2024 pravastatin (PRAVACHOL) 40 mg tablet Take 40 mg by mouth daily. 06/06/2023 05/20/2024 pramipexole (MIRAPEX) 1.5 mg Tablet Take 1.5 mg by mouth. 06/10/2023 05/20/2024 documented as of this encounter Procedure Notes * Sandra Gan RDMS - 11/22/2023 11:00 AM CDT Images from the original note were not included. ST DCS Definity Protocol [facility] Approved by: [facility] - Medical Executive Committee Approval Date: 02/21/2023 ORDERS ARE ENTERED ???PER PROTOCOL?? Enter the protocol in the patient's electronic health record using smartphrase: .definityprotocol PURPOSE: DEFINITY?? is approved for intravenous use in patients with technically suboptimal echocardiograms to assist in left ventricular opacification, left ventricular endocardial border definition, and to offer other imaging enhancements to benefit the diagnostic value of the echocardiogram POLICY: Verify patient does not meet any of these exclusion criteria Allergy or hypersensitivity to DEFINITY?? or octafluoropropane Allergy or hypersensitivity to Polyethylene Glycol Is DEFINITY?? is not recommended while you are , however, is not a criteriafor exclusion. If patient is , formula feedings should be substituted for for one cycle following the administration of Definity. Breast milk produced within thattime should be discarded. Actively being supported by ECMO (extracorporeal membrane oxygenation) *Critical Care physicians can request use of DEFINITY?? on ECMO patients. The ECMO commercial fishing vessel operator must bepresent when the DEFINITY ?? is administered and while images are being obtained. The ECMO operatorcan be reached at [phone] ([phone] in [place]) If patient meets/states ???yes to any exclusion criteria, STOP THE PROCEDURE, and annotate exam accordingly Patient meets at least one of these inclusion criteria Credentialed provider request Patient is technically difficult to image ([place] Society of Echocardiography guidelines recommend use when 2 or more segments within the apical/parasternal short axis views are not discernable) The question of left ventricular function has been raised and/or suspicion for estimated ejection fraction being less than 35 percent, regardless of image quality Furthermore, DEFINITY?? use is strongly recommended by the ASE, when visualization of the endocardium is critical, particularly for use with stress echocardiography PROTOCOL: DEFINITY?? may be ordered by a credentialed provider, RN or reconciliation accountant Educate patient or responsible constitution party on DEFINITY?? indications and potential side effects and review procedure goals with the patient and/or caregiver Verify patient does not have any allergy or contraindications to receive DEFINITY?? or octaflouropropane and confirm Allergies by ???Marking as Reviewed?? in patient's chart Verify peripheral or central line IV access. If IV access is not available, then a trained reconciliation accountant paving foreman may place peripheral IV access, as appropriate, for medication administration NOTE: Do NOTaccess dialysis catheter or arterial line catheter. Before activating DEFINITY??, allow the refrigerated vial to warm to room temperature Activate DEFINITY?? using the VialMix machine: Vial of DEFINITY?? should be vented prior to withdrawing medication (18g or 20g needle) and care should be taken to ensure that any excess air has been cleared from the syringe Dilute the DEFINITY?? in a syringe with 8.7 mL Normal Saline to make 10 mL Administer DEFINITY?? in small increments as needed to enhance visualization up to a total of 10 mLof the diluted DEFINITY?? DEFINITY?? vials may require resuspension and/or reactivation (see image below for further information) RN or trained reconciliation accountant may discontinue peripheral IV access when IV no longer required for treatment DEFINITY? Activation/Reactivation1,6 If activated vial is not used within 5 minutes, resuspend with 10 seconds of hand agitation prior to use. DEFINITY? may be used for up to 12 hours after activation with VIALMIX??1 If not used within 12 hours, vial may be returned to refrigeration and reactivated once with VIALMIX?? within 24 hours6 Reactivated DEFINITY? may be used for up to 12 hours1,6 DOCUMENTATION: Change procedure order to include DEFINITY??, then END EXAM Verify that Allergies were reviewed and confirmed in patient's chart Document IV start and removal, if performed Order DEFINITY??, under Order Management in patient's chart Document DEFINITY?? administration under patient's MAR (Medication Administration Record) by going to MAR comment box, add 'Bolus diluted with 8.7 mL of NS. Patient tolerated well' (or list side effects) and link to correct IV line Add the protocol to the patient's electronic health record in a new note using smartphrase: .DEFINITYprotocol documented in this encounter Plan of Treatment Upcoming Encounters Date Type Department Care Team (Late st Contact Info) Description 09/21/2024 9:00 AM CRUSHER MACHINE OPERATOR Appointment [facility] Nuclear Medicine [address] [place] [address] Rafael Anton MD [address] [facility] [address] [place] [address] 09/21/2024 10:00 AM CRUSHER MACHINE OPERATOR Appointment [facility] Nuclear Medicine [address] [place] [address] Rafael Anton MD [address] [facility] [address] [place] [address] 11/18/2024 8:15 AM CDT Office Visit [facility] Heart and Vascular At [facility] [address] [facility] [address] [place] [address] Rafael Anton MD [address] [facility] [address] [place] [address] documented as of this encounter Procedures Procedure Name Priority Date/Time Associated Diagnosis Comments ECHOCARDIOGRAM W/ CONTRAST AGENT Routine 11/22/2023 11:49 AM CDT Palpitations documented in this encounter Results * ECHOCARDIOGRAM W/ CONTRAST AGENT (11/22/2023 11:49 AM CDT) EJECTION FRACTION 69 INTERFACE SYSTEM 11/22/2023 11:1 5 AM CDT Narrative INTERFACE SYSTEM - 11/22/2023 4:13 PM CDT [address] [address] [email or web address] Transthoracic Echocardiogram Patient: ? Jaden De La Torre MRN: ? [id number] Study ID: ?[id number] Gender: ?M : ? 1970 Age: ? 53 Race: ?CAU Height ? 188cm Study Date: ?11/22/2023 Weight: ?122.5kg Access. #: ? [id number] Account #: ? [id number] BP: *Referring Physician:* Rafael Anton Phillip *Ordering Physician:* ??Rafeal Anton signwriter: Nurse: Indications: Palpitations. STUDY CONCLUSIONS: SUMMARY: - Left ventricle: The cavity size was normal. Wall thickness was increased in ??a pattern of mild LVH. Global systolic function is normal. The estimated ??ejection fraction is 65-70%. For Epic reporting: the left ventricular ??ejection fraction is 69% . Left ventricular diastolic function parameters ??are normal. - Left atrium: The atrium is normal in size. - Right ventricle: The cavity size is normal. Systolic function is normal. - Pulmonary arteries: Systolic pressure was within the normal range. Cardiac Anatomy: Left ventricle: ??The cavity size was normal. Wall thickness was increased in a pattern of mild LVH. Global systolic function is normal. The estimated ejection fraction is 65-70%. For Epic reporting: the left ventricular ejection fraction is 69% . Wall motion is normal; there are no regional wall motion abnormalities. Left ventricular diastolic function parameters are normal. LEFT VENTRICLE: ??The cavity size was normal. Wall thickness was increased in a pattern of mild LVH. Global systolic function is normal. The estimated ejection fraction is 65-70%. For Epic reporting: the left ventricular ejection fraction is 69% . Wall motion is normal; there are no regional wall motion abnormalities. Left ventricular diastolic function parameters are normal. AORTIC VALVE: ?? Structurally normal valve. Trileaflet. Velocity is within the normal range. There was no stenosis. ??No significant regurgitation. The mean systolic gradient is 3mm Hg. The peak systolic gradient is 5mm Hg. The LVOT to aortic valve VTI ratio is 0.9. The valve area is 3.8cm^2. The ratio of LVOT to aortic valve peak velocity is 0.81. AORTA: Aortic root: The root is normal-sized. MITRAL VALVE: ?? Structurally normal valve. ?? Inflow velocity is within the normal range. There is no evidence for stenosis. ??Trivial regurgitation. The mean diastolic gradient is 1mm Hg. The peak diastolic gradient is 1mm Hg. LEFT ATRIUM: ??The atrium is normal in size. RIGHT VENTRICLE: ??The cavity size is normal. Systolic function is normal. PULMONIC VALVE: ?? Structurally normal valve. ?No significant regurgitation. TRICUSPID VALVE: ?? Structurally normal valve. ?Mild regurgitation. PULMONARY ARTERY: ??Systolic pressure was within the normal range. RIGHT ATRIUM: ??The atrium was normal in size. SYSTEMIC VEINS: Inferior vena cava: The IVC is normal-sized. PERICARDIUM: ?? There is no pericardial effusion. Measurements Left ventricle ?Value ?Ref ROCKY, LAX ?(L) 3.3 ?? cm ? 4.2 - 5.8 ROCKY/bsa, LAX ?(L) 1.3 ?? cm/m^2 ?? 2.2 - 3.0 ROCKY, LAX chord ?(N) 5.5 ?? cm ? 4.2 - 5.8 ESD, LAX chord ?(N) 3.3 ?? cm ? 2.5 - 4.0 ROCKY/bsa, LAX chord ?(N) 2.2 ?? cm/m^2 ?? 2.2 - 3.0 ESD/bsa, LAX chord ?(N) 1.3 ?? cm/m^2 ?? 1.3 - 2.1 FS, LAX chord ? (N) 39 ?% ?25 - 43 IVS, ED ? (H) 1.2 ?? cm ? 0.6 - 1.0 PW, ED ?(H) 1.3 ?? cm ? 0.6 - 1.0 EDV, 2-p ?(N) 96 ?ml ? 62 - 150 ESV, 2-p ?(N) 30 ?ml ? 21 - 61 EF, 2-p ? (N) 69 ?% ?52 - 72 SV, 2-p ? 66 ?ml ? --------- SV/bsa, 2-p ? 26.7 ??ml/m^2 ?? --------- E', lat ana maria, TDI ?(N) 15.2 ??cm/sec ?? >=10.0 E/e', lat ana maria, TDI ?(N) 5 ?<=13 E', med ana maria, TDI ?(N) 9.2 ?? cm/sec ?? >=7.0 E/e', med naa maria, TDI ?8 ?--------- E', avg, TDI ?12.2 ??cm/sec ?? --------- E/e', avg, TDI ?(N) 6 ?<=14 LVOT ?Value ?Ref Diam, S ? 2.3 ?? cm ? --------- Area ?4.2 ?? cm^2 ? --------- Peak irina, S ? 0.94 ??m/sec ?--------- VTI, S ?25.1 ??cm ? --------- Right ventricle ? Value ?Ref Pressure, S ? 20 ?mm Hg ?--------- Left atrium ? Value ?Ref AP dim, ES ?(H) 4.5 ?? cm ? 3.0 - 4.0 AP dim index, ES ?(N) 1.8 ?? cm/m^2 ?? 1.5 - 2.3 SI dim, A4C ? 5.3 ?? cm ? --------- Area ES, A4C ?(N) 18 ?cm^2 ? <=20 Area/bsa ES, A4C ?7.21 ??cm^2/m^2 --------- SI dim, A2C ? 4.9 ?? cm ? --------- SI dim, shorter ? 4.9 ?? cm ? --------- Vol, ES, 1-p A4C ?(N) 47 ?ml ? 18 - 58 Vol/bsa, ES, 1-p A4C ??(N) 19 ?ml/m^2 ?? 12 - 37 Vol, ES, 1-p A2C ?(N) 24 ?ml ? 18 - 58 Vol/bsa, ES, 1-p A2C ??(L) 10 ?ml/m^2 ?? 11 - 43 Vol, ES, 2-p ?35 ?ml ? --------- Vol/bsa, ES, 2-p ?(L) 14 ?ml/m^2 ?? 16 - 34 LA/Ao root ratio ?1.22 ? --------- Aortic valve ?Value ?Ref Peak v, S ? 1.2 ?? m/sec ?--------- Mean v, S ? 0.87 ??m/sec ?--------- VTI, S ?27.8 ??cm ? --------- Mean grad, S ?3 ? mm Hg ?--------- Peak grad, S ?5 ? mm Hg ?--------- LVOT/AV, VTI ratio ?0.9 ?--------- KATHERINE, VTI ?3.8 ?? cm^2 ? --------- KATHERINE/bsa, VTI ?1.52 ??cm^2/m^2 --------- LVOT/AV, Vpeak ratio ?0.81 ? --------- KATHERINE, Vmax ? 3.4 ?? cm^2 ? --------- KATHERINE/bsa, Vmax ? 1.36 ??cm^2/m^2 --------- Mitral valve ?Value ?Ref Mean v, D ? 0.48 ??m/sec ?--------- Peak E ?0.71 ??m/sec ?--------- Peak A ?0.55 ??m/sec ?--------- Decel time ?384 ?? ms ? --------- Mean grad, D ?1 ? mm Hg ?--------- Peak grad, D ?1 ? mm Hg ?--------- Peak E/A ratio ?1.3 ?--------- A-VTI ? 31.9 ??cm ? --------- Max MR v ?1.99 ??m/sec ?--------- Peak LV-LA grad S ? 16 ?mm Hg ?--------- Pulmonic valve ?Value ?Ref Peak v, S ? 1.04 ??m/sec ?--------- Peak grad, S ?4 ? mm Hg ?--------- Tricuspid valve ? Value ?Ref TR peak v ? (N) 2 ? m/sec ?<=2.8 Peak RV-RA grad, S ?15 ?mm Hg ?--------- Aortic root ? Value ?Ref Root diam, ?3.7 ?? cm ? --------- Pulmonary artery ?Value ?Ref Pressure, S ? 16 ?mm Hg ?--------- Systemic veins ?Value ?Ref Estimated RA pressure ? 5 ? mm Hg ?--------- Legend: (L) ??and ??(H) ??zena values outside specified reference range. (N) ??jones values inside specified reference range. Procedure data: Procedure information: ??A transthoracic echocardiogram was performed. Scanning was performed from the parasternal, apical, and subcostal acoustic windows. Intravenous contrast (Definity) was administered. ?Transthoracic echocardiogram. ??Complete 2D, complete spectral Doppler, and color Doppler. Birthdate: ??Patient birthdate: 1970. ??Age: ??Patient is 53year(s) old. Sex: ?? gender: male. ??Height: ??188cm. 74in. ??Weight: ??122.5kg. 270lb. Body mass index: ??34.7kg/m^2. ??Body surface area: ?2.47m^2. ??Study date: Study date: 11/22/2023. Study time: 11:15 AM. ?Prepared and Electronically Authenticated Lilian Berumen MD [id number]:14 Procedure Note Lilian Berumen MD - 11/22/[address] [address] [email or web address] Transthoracic Echocardiogram Patient: Jaden De La Torre Study ID: [id number] Gender: M : 1970 Age: 53 Race: DES Height 188cm Study Date: 11/22/2023 Weight: 122.5kg Access. #: [id number] BP: *Referring Physician:Rafale Martinez Phillip *Ordering Physician:Rafael Martinez signwriter: Nurse: Indications: Palpitations. STUDY CONCLUSIONS: SUMMARY: - Left ventricle: The cavity size was normal. Wall thickness was increasedin a pattern of mild LVH. Global systolic function is normal. Theestimated ejection fraction is 65-70%. For Epic reporting: the left ventricular ejection fraction is 69% . Left ventricular diastolic functionparameters are normal. - Left atrium: The atrium is normal in size. - Right ventricle: The cavity size is normal. Systolic function isnormal. - Pulmonary arteries: Systolic pressure was within the normal range. Cardiac Anatomy: Left ventricle: The cavity size was normal. Wall thickness was increasedin a pattern of mild LVH. Global systolic function is normal. The estimated ejection fraction is 65-70%. For Epic reporting: the left ventricularejection fraction is 69% . Wall motion is normal; there are no regional wallmotion abnormalities. Left ventricular diastolic function parameters arenormal. LEFT VENTRICLE: The cavity size was normal. Wall thickness was increasedin a pattern of mild LVH. Global systolic function is normal. The estimated ejection fraction is 65-70%. For Epic reporting: the left ventricularejection fraction is 69% . Wall motion is normal; there are no regional wallmotion abnormalities. Left ventricular diastolic function parameters arenormal. AORTIC VALVE: Structurally normal valve. Trileaflet. Velocity is withinthe normal range. There was no stenosis. No significant regurgitation. Themean systolic gradient is 3mm Hg. The peak systolic gradient is 5mm Hg. TheLVOT to aortic valve VTI ratio is 0.9. The valve area is 3.8cm^2. The ratio ofLVOT to aortic valve peak velocity is 0.81. AORTA: Aortic root: The root is normal-sized. MITRAL VALVE: Structurally normal valve. Inflow velocity is withinthe normal range. There is no evidence for stenosis. Trivial regurgitation.The mean diastolic gradient is 1mm Hg. The peak diastolic gradient is 1mmHg. LEFT ATRIUM: The atrium is normal in size. RIGHT VENTRICLE: The cavity size is normal. Systolic function isnormal. PULMONIC VALVE: Structurally normal valve. No significantregurgitation. TRICUSPID VALVE: Structurally normal valve. Mild regurgitation. PULMONARY ARTERY: Systolic pressure was within the normal range. RIGHT ATRIUM: The atrium was normal in size. SYSTEMIC VEINS: Inferior vena cava: The IVC is normal-sized. PERICARDIUM: There is no pericardial effusion. Measurements Left ventricle Value Ref ROCKY, LAX (L) 3.3 cm 4.2 - 5.8 ROCKY/bsa, LAX (L) 1.3 cm/m^2 2.2 - 3.0 ROCKY, LAX chord (N) 5.5 cm 4.2 - 5.8 ESD, LAX chord (N) 3.3 cm 2.5 - 4.0 ROCKY/bsa, LAX chord (N) 2.2 cm/m^2 2.2 - 3.0 ESD/bsa, LAX chord (N) 1.3 cm/m^2 1.3 - 2.1 FS, LAX chord (N) 39 % 25 - 43 IVS, ED (H) 1.2 cm 0.6 - 1.0 PW, ED (H) 1.3 cm 0.6 - 1.0 EDV, 2-p (N) 96 ml 62 - 150 ESV, 2-p (N) 30 ml 21 - 61 EF, 2-p (N) 69 % 52 - 72 SV, 2-p 66 ml --------- SV/bsa, 2-p 26.7 ml/m^2 --------- E', lat ana maria, TDI (N) 15.2 cm/sec >=10.0 E/e', lat ana maria, TDI (N) 5 <=13 E', med ana maria, TDI (N) 9.2 cm/sec >=7.0 E/e', med ana maria, TDI 8 --------- E', avg, TDI 12.2 cm/sec --------- E/e', avg, TDI (N) 6 <=14 LVOT Value Ref Diam, S 2.3 cm --------- Area 4.2 cm^2 --------- Peak irina, S 0.94 m/sec --------- VTI, S 25.1 cm --------- Right ventricle Value Ref Pressure, S 20 mm Hg --------- Left atrium Value Ref AP dim, ES (H) 4.5 cm 3.0 - 4.0 AP dim index, ES (N) 1.8 cm/m^2 1.5 - 2.3 SI dim, A4C 5.3 cm --------- Area ES, A4C (N) 18 cm^2 <=20 Area/bsa ES, A4C 7.21 cm^2/m^2 --------- SI dim, A2C 4.9 cm --------- SI dim, shorter 4.9 cm --------- Vol, ES, 1-p A4C (N) 47 ml 18 - 58 Vol/bsa, ES, 1-p A4C (N) 19 ml/m^2 12 - 37 Vol, ES, 1-p A2C (N) 24 ml 18 - 58 Vol/bsa, ES, 1-p A2C (L) 10 ml/m^2 11 - 43 Vol, ES, 2-p 35 ml --------- Vol/bsa, ES, 2-p (L) 14 ml/m^2 16 - 34 LA/Ao root ratio 1.22 --------- Aortic valve Value Ref Peak v, S 1.2 m/sec --------- Mean v, S 0.87 m/sec --------- VTI, S 27.8 cm --------- Mean grad, S 3 mm Hg --------- Peak grad, S 5 mm Hg --------- LVOT/AV, VTI ratio 0.9 --------- KATHERINE, VTI 3.8 cm^2 --------- KATHERINE/bsa, VTI 1.52 cm^2/m^2 --------- LVOT/AV, Vpeak ratio 0.81 --------- KATHERINE, Vmax 3.4 cm^2 --------- KATHERINE/bsa, Vmax 1.36 cm^2/m^2 --------- Mitral valve Value Ref Mean v, D 0.48 m/sec --------- Peak E 0.71 m/sec --------- Peak A 0.55 m/sec --------- Decel time 384 ms --------- Mean grad, D 1 mm Hg --------- Peak grad, D 1 mm Hg --------- Peak E/A ratio 1.3 --------- A-VTI 31.9 cm --------- Max MR v 1.99 m/sec --------- Peak LV-LA grad S 16 mm Hg --------- Pulmonic valve Value Ref Peak v, S 1.04 m/sec --------- Peak grad, S 4 mm Hg --------- Tricuspid valve Value Ref TR peak v (N) 2 m/sec <=2.8 Peak RV-RA grad, S 15 mm Hg --------- Aortic root Value Ref Root diam, 3.7 cm --------- Pulmonary artery Value Ref Pressure, S 16 mm Hg --------- Systemic veins Value Ref Estimated RA pressure 5 mm Hg --------- Legend: (L) and (H) zena values outside specified reference range. (N) jones values inside specified reference range. Procedure data: Procedure information: A transthoracic echocardiogram was performed.Scanning was performed from the parasternal, apical, and subcostal acousticwindows. Intravenous contrast (Definity) was administered. Transthoracic echocardiogram. Complete 2D, complete spectral Doppler, and colorDoppler. Birthdate: Patient birthdate: 1970. Age: Patient is 53year(s)old. Sex: gender: male. Height: 188cm. 74in. Weight: 122.5kg.270lb. Body mass index: 34.7kg/m^2. Body surface area: 2.47m^2. Studydate: Study date: 11/22/2023. Study time: 11:15 AM. Prepared andElectronically Authenticated Lilian Berumen MD [id number] Rafael Anton MD ORDERABLES INTERFACE SYSTEM Refer to clinic/hospital department documented in this encounter Visit Diagnoses Diagnosis Palpitations documented in this encounter Administered Medications Inactive Administered Medications - up to 3 most recent administrations Medication Order MAR Action Action Date Dose Rate Site perflutren lipid microspheres (DEFINITY) 1.1 mg/mL injection 2 mL 2 mL, IV, INTRA-PROCEDURE ONCE, 1 dose, Starting on Sat11/22/23 at 1114, Until Sat11/22/23 at 1149, Routine Contrast Given 11/22/2023 11:49 AM CDT 2 mL documented in this encounter Care Teams Body Welder Relationship Specialty Start Date End Date La Kearney MD [address] [facility] [address] [place] [id number] PCP - General Family Practice 08/13/23 documented as of this encounter
--- OUTSIDE RECORDS SUMMARY | 2024-09-17 13:19 | XMS_ITS | Encounter Summary ---
Author Organization [facility] Address [address] [place] [address] Care Team Providers Care Staffing Associate Name Role Phone La Kearney MD Primary Care Provide r Encounter Details Date Type Department Care Team (Late st Contact Info) Description 09/12/2023 External Device Data STL ABSTRACTION Provider, Abstract [...] st Contact Info) Description 09/21/2024 9:00 AM DIRECTOR OF MARKETING GOOGLE PERFORMANCE ADS Appointment [facility] Nuclear Medicine [address] [place] [address] Rafael Anton MD [address] [facility] [address] [place] [address] 09/21/2024 10:00 AM DIRECTOR OF MARKETING GOOGLE PERFORMANCE ADS Appointment [facility] Nuclear Medicine [address] [place] [address] Rafael Anton MD [address] [facility] [address] [place] [address] 11/18/2024 8:15 AM CDT Office Visit [facility] Heart [facility] At [facility] [address] [facility] [address] [place] [address] Rafael Anton MD [address] [facility] [address] [address] [place] [address] documented as of this encounter Visit Diagnoses Not on filedocumented in this encounter Care Teams Staffing Associate Relationship Specialty Start Date End Date La Kearney MD [address] [place] [address] [place] [phone] PCP - General Family Practice 08/13/23 documented as of this encounter
--- OUTSIDE RECORDS SUMMARY | 2024-09-17 13:19 | XMS_ITS | Encounter Summary ---
Author Organization [facility] Address [address] [place] [address] Care Team Providers Care River Pilot Name Role Phone La Kearney MD Primary Care Provide r Reason for Visit * Reason Comments Follow Up palpitations Encounter Details Date Type Department Care Team (Late st Contact Info) Description 11/13/2023 9:15 AM COFFEE BREWER Office Visit [facility] Heart and Vascular At [facility] [address] [facility] [address] [place] [address] Rafael Anton MD [facility] [address] [place] [address] Palpitations (Primary Dx); Benign hypertension; Mixed hyperlipidemia; PAC (premature atrial contraction); PVC (premature ventricular contraction) Social History Tobacco Use Types Packs/Day Years Used Date Smoking Tobacco: Never Smokeless Tobacco: Never Tobacco Cessation:Counseling Given: Not Answered Sex and Gender Information Value Date Recorded Sex Assigned at Not on file Gender Identity Not on file Sexual Orientation Not on file documented as of this encounter Last Filed Vital Signs Vital Sign Reading Time Taken Comments Blood Pressure 122/90 11/13/2023 8:39 AM COFFEE BREWER Pulse 56 11/13/2023 8:39 AM COFFEE BREWER Temperature - - Respiratory Rate - - Oxygen Saturation 96% 11/13/2023 8:39 AM COFFEE BREWER Inhaled Oxygen Concentration - - Weight 122.5 kg (270 lb) 11/13/2023 8:39 AM COFFEE BREWER Height 188 cm (6' 2 ) 11/13/2023 8:39 AM COFFEE BREWER Body Mass Index 34.67 11/13/2023 8:39 AM COFFEE BREWER documented in this encounter Progress Notes * Rafael Anton MD - 11/13/2023 8:48 AM CST CARDIOLOGY [facility] History of Present Illness: Jaden De La Torre is a 53 y.o. year old male with PACs, PVCs, palpitations who presents for follow up evaluation ER visit on 07/28/2023 for palpitations. Found to have frequent PACs, started on lopressor PRN Caffeine - drinks 2+ sodas, several cups of coffee. Alcohol - drinks 5-6 beers in a sitting occasionally. Has TAJ, uses CPAP but has not re- titrated machine in several years now. Works for [employer] in [place] We saw him to establish care August 2023. Obtained MCOT PACs/PVCs with no other arrhthymias. Currently some ongoing occasional palpitations despite metoprolol. Denies chest pain, shortness of breath, syncope, near syncope, lower extremity edema, orthopnea, paroxysmal nocturnal dyspnea. Current Outpatient Medications Medication Instructions buPROPion HCL (WELLBUTRIN XL) 300 mg, Oral lisinopriL (PRINIVIL) 5 mg, Oral, DAILY AT BEDTIME pramipexole (MIRAPEX) 1.5 mg, Oral pravastatin (PRAVACHOL) 40 mg, Oral, DAILY tadalafiL (CIALIS) 20 mg, Oral verapamiL (CALAN SR) 120 mg, Oral, DAILY No Known Allergies No family history on file. Social History Tobacco Use Smoking status: Never Smokeless tobacco: Never Review of systems: As per HPI. All other systems are reviewed and negative for significant findings. PHYSICAL EXAM Blood pressure (!) 122/90, pulse (!) 56, height 6' 2 (1.88 m), weight 122.5 kg (270 lb), SpO2 96%.Body mass index is 34.67 kg/m??. General: No acute distress, oriented, looks [...] TRIGLYCERIDE No results found for: HGBA1C , [id number] The ASCVD Risk score (Wilburton DK, et al., 2019) failed to calculate [...] of which were associated with sinus rhythm. ASSESSMENT PACs PVCs Essential hypertension Dyslipidemia Palpitations PLAN Change metoprolol to verapamil given ongoing palpitations Discussed risk factor modification in detail Encouraged cutting down on caffeine, alcohol intake Regular exercise, weight loss Check echo Continue lisinopril 5 for blood pressure Follow up in 6 months Lipids managed by PCP - continue pravastatin Labwork I appreciate the opportunity in participating in Jaden De La Torre's care. Will plan to follow-up with him in [place] in about 6 months (around 05/15/2024). or sooner if he develops any new or worsening symptoms. Rafael Anton MD [facility] Voice recognition software was used to complete this document, therefore, tourist information officer variances may occur. EE BREWER * Shane King - 11/13/2023 8:40 AM CST 3 mo f/u on palpitations. Intermittent chest flutters. Intermittent SOB with and without exertion. Swelling lower legs. EE BREWER documented in this encounter Miscellaneous Notes * Patient Instructions - Rafael Anton MD - 11/13/2023 8:59 AM CST Stop metoprolol Start verapamil in place - blood pressure medication Ultrasound of heart Blood work today EE BREWER documented in this encounter Plan of Treatment Upcoming Encounters Date Type Department Care Team (Late st Contact Info) Description 09/21/2024 9:00 AM COFFEE BREWER Appointment [facility] Nuclear Medicine [address] [place] [address] Rafael Anton MD [address] [facility] [address] [place] [address] 09/21/2024 10:00 AM COFFEE BREWER Appointment [facility] Nuclear Medicine [address] [place] [address] Rafael Anton MD [address] [place] [address] [address] [place] [address] 11/18/2024 8:15 AM CDT Office Visit [facility] and Vascular At [facility] [address] [facility] [address] [place] [address] Rafael Anton MD [address] [facility] [address] [place] [address] documented as of this encounter Procedures Procedure Name Priority Date/Time Associated Diagnosis Comments TSH REFLEXIVE Routine 11/13/2023 9:24 AM COFFEE BREWER Palpitations Benign hypertension IRON, TIBC, AND PERCENT SATURATION Routine 11/13/2023 9:24 AM COFFEE BREWER Palpitations Benign hypertension CBC WITH DIFFERENTIAL Routine 11/13/2023 9:24 AM COFFEE BREWER Palpitations Benign hypertension FERRITIN Routine 11/13/2023 9:24 AM COFFEE BREWER Palpitations Benign hypertension LIPID PANEL Routine 11/13/2023 9:24 AM COFFEE BREWER Palpitations Benign hypertension BASIC METABOLIC PANEL Routine 11/13/2023 9:24 AM COFFEE BREWER Palpitations Benign hypertension documented in this encounter Results * IRON, TIBC, AND PERCENT SATURATION (11/13/2023 9:24 AM COFFEE BREWER) IRON 113 50 - 180 mcg/dL [facility] TIBC 382 250 - 425 mcg/dL (calc) [facility] IRON % SATURATION 30 20 - 48 % (calc) [facility] Comment: Test Performed at: [facility] [address] [place], [place] ??[phone] Georgette Ramirez MD Blood 11/13/2023 9:24 AM COFFEE BREWER 11/13/2023 3:14 PM COFFEE BREWER Rafale Anton MD CHEMISTRY ORDERABLES Performing Organization Address City/[facility]/ZIP Co de Phone Number [facility] [phone] [facility] [address] [place] [address] * FERRITIN (11/13/2023 9:24 AM COFFEE BREWER) FERRITIN 221 38 - 380 ng/mL [facility] Comment: Test Performed at: [facility] [address] [place], [place] ??[phone] Georgette Ramirez MD Blood 11/13/2023 9:24 AM COFFEE BREWER 11/13/2023 3:14 PM COFFEE BREWER Rafael Anton MD CHEMISTRY ORDERABLES [facility] [phone] [facility] [address] [place] [address] * CBC WITH DIFFERENTIAL (11/13/2023 9:24 AM COFFEE BREWER) WBC 4.3 3.8 - 10.8 Thousand/u L [facility] RBC 4.60 4.20 - 5.80 Million/uL [facility] HEMOGLOBIN 14.4 13.2 - 17.1 g/dL [facility] HEMATOCRIT 43.6 38.5 - 50.0 % [facility] MCV 94.8 80.0 - 100.0 fL [facility] MCH 31.3 27.0 - 33.0 pg [facility] MCHC 33.0 32.0 - 36.0 g/dL [facility] RDW 12.9 11.0 - 15.0 % [facility] PLATELETS 219 140 - 400 Thousand/u L [facility] MPV 10.4 7.5 - 12.5 fL [facility] NEUTROPHIL ABSOLUTE 2,507 1,500 - 7,800 cells/uL [facility] LYMPHOCYTE ABSOLUTE 1,277 850 - 3,900 cells/uL [facility] MONOCYTE ABSOLUTE 353 200 - 950 cells/uL [facility] EOSINOPHIL ABSOLUTE 112 15 - 500 cells/uL [facility] BASOPHILS ABSOLUTE 52 0 - 200 cells/uL [facility] NEUTROPHIL 58.3 % [facility] LYMPHOCYTES 29.7 % [facility] MONOCYTE 8.2 % [facility] EOSINOPHILS 2.6 % [facility] BASOPHILS 1.2 % [facility] Comment: Test Performed at: [facility] [address] [place] ??[phone] Georgette Ramirez Blood 11/13/2023 9:24 AM COFFEE BREWER 11/13/2023 3:14 PM COFFEE BREWER Rafael Anton MD HEMATOLOGY ORDERABLE S [facility] [phone] [facility] [address] [place] [address] * TSH REFLEXIVE (11/13/2023 9:24 AM COFFEE BREWER) TSH 1.47 0.40 - 4.50 mIU/L [facility] Comment: Test Performed at: [facility] ??[phone] Georgette Ramirez MD Blood 11/13/2023 9:24 AM COFFEE BREWER 11/13/2023 3:14 PM COFFEE BREWER Rafael Anton MD CHEMISTRY ORDERABLES [facility] [phone] [address] * (ABNORMAL) LIPID PANEL (11/13/2023 9:24 AM COFFEE BREWER) CHOLESTEROL 194 <200 mg/dL [facility] HDL 42 > OR = 40 mg/dL [facility] TRIGLYCERIDE 183(H) <150 mg/dL [facility] LDL CALCULATED 122(H) mg/dL (calc) [facility] Comment: Reference range: <100 Desirable range <100 mg/dL for primary prevention; ?? <70 mg/dL for patients with CHD or diabetic patients with > or = 2 CHD risk factors. LDL-C is now calculated using the Ochoa-Syed calculation, which is a validated novel method providing better accuracy than the Friedewald equation in the estimation of LDL-C. Ochoa MORALES et al. SHARLENE. 2013;310(19): 6898-7782 (http://education.Cream.HR/faq/TWF108) CHOL/HDL RATIO 4.6 <5.0 (calc) [facility] TOTAL NON-HDL CHOL(LDL+VLDL) 152(H) <130 mg/dL (calc) [facility] Comment: For patients with diabetes plus 1 major ASCVD risk factor, treating to a non-HDL-C goal of <100 mg/dL (LDL-C of <70 mg/dL) is considered a therapeutic option. Test Performed at: [facility] [address] [place] ??[phone] [facility] Blood 11/13/2023 9:24 AM COFFEE BREWER 11/13/2023 3:14 PM COFFEE BREWER Rafael Anton MD CHEMISTRY ORDERABLES Performing Organization Address City/[facility] Phone Number [facility] [phone] [facility] [address] [place] [address] * BASIC METABOLIC PANEL (11/13/2023 9:24 AM COFFEE BREWER) GLUCOSE 92 65 - 99 mg/dL [facility] Comment: ? Fasting reference interval BUN 11 7 - 25 mg/dL [facility] CREATININE 1.09 0.70 - 1.30 mg/dL [facility] GFR 80 > OR = 60 mL/min/1. 73m2 [facility] BUN/CREAT RATIO SEE NOTE: (calc) [facility] Comment: ?? Not Reported: BUN and Creatinine are within ?? reference range. ? SODIUM 137 135 - 146 mmol/L [facility] POTASSIUM 4.9 3.5 - 5.3 mmol/L [facility] CHLORIDE 103 98 - 110 mmol/L [facility] CO2 23 20 - 32 mmol/L [facility] CALCIUM 9.3 8.6 - 10.3 mg/dL [facility] Comment: Test Performed at: [facility] [address] [place] ??[phone] [facility] Vo Blood 11/13/2023 9:24 AM COFFEE BREWER 11/13/2023 3:14 PM COFFEE BREWER Rafael Anton MD CHEMISTRY ORDERABLES Performing Organization Address City/[facility] Code Phone Number [facility] [phone] [facility] [address] [place] [address] documented in this encounter Visit Diagnoses Diagnosis Palpitations- Primary Benign hypertension Essential hypertension, benign Mixed hyperlipidemia PAC (premature atrial contraction) Supraventricular premature beats PVC (premature ventricular contraction) Other premature beats documented in this encounter Care Teams River Pilot Relationship Specialty Start Date End Date La Kearney MD [address] [facility] [address] [place], [place] [address] [address] PCP - General Family Practice 08/13/23 documented as of this encounter
--- OUTSIDE RECORDS SUMMARY | 2024-09-17 13:19 | XMS_ITS | Encounter Summary ---
Author Organization [facility] Address [address] [place] [address] Care Team Providers Care Steam Shovel Runner Name Role Phone La Kearney MD Primary Care Provide r Encounter Details Date Type Department Care Team (Latest Contact Info) Description 11/13/2023 9:07 AM SCHOOL AGE PROGRAM ASSOCIATE - 11/13/2023 11:59 PM SCHOOL AGE PROGRAM ASSOCIATE Hospital Encounter [facility] Laboratory Services [address] [facility] [place] [address] Rafael Anton MD [address] [facility] [address] [facility] [address] [place] [address] Discharge Disposition: Home or Self Care Social [...] 06/10/2023 05/20/2024 documented as of this encounter Plan of Treatment Upcoming Encounters Date Type Department Care Team (Late st Contact Info) Description 09/21/2024 9:00 AM SCHOOL AGE PROGRAM ASSOCIATE Appointment [facility] Nuclear Medicine [address] [place] [address] Rafael Anton MD [address] [facility] [address] [place] [address] 09/21/2024 10:00 AM SCHOOL AGE PROGRAM ASSOCIATE Appointment [facility] Nuclear Medicine [address] [place] [address] Rafael Anton MD [address] [facility] [address] [place] [address] 11/18/2024 8:15 AM CDT Office Visit [facility] Heart and Vascular At [facility] [address] [facility] [address] [place] [address] Rafael Anton MD [address] [facility] [address] [place] [address] documented as of this encounter Procedures Procedure Name Priority Date/Time Associated Diagnosis Comments REFERENCE LAB PROCESSING FEE Routine 11/13/2023 9:24 AM SCHOOL AGE PROGRAM ASSOCIATE Palpitation documented in this encounter Results * REFERENCE LAB PROCESSING FEE (11/13/2023 9:24 AM SCHOOL AGE PROGRAM ASSOCIATE) REFERENCE LAB SENDOUT Sent to Ref Lab 11/13/2023 11:00 AM SCHOOL AGE PROGRAM ASSOCIATE [facility] Other, specify BLOOD SPECIMEN / Unknown Collection / Unknown 11/13/2023 9:24 AM SCHOOL AGE PROGRAM ASSOCIATE 11/13/2023 9:32 AM SCHOOL AGE PROGRAM ASSOCIATE Rafael Anton MD CHEMISTRY ORDERABLES [facility]# [id number] [address] [place] [address] documented in this encounter Visit Diagnoses Diagnosis Palpitation- Primary Palpitations documented in this encounter Care Teams Steam Shovel Runner Relationship Specialty Start Date End Date La Kearney MD [address] [place] [address] DR LUCAS [address] [place] [phone] PCP - General Family Practice 08/13/23 documented as of this encounter
--- OUTSIDE RECORDS SUMMARY | 2024-09-17 13:59 | XMS_ITS | Continuity of Care Document ---
Author Name [facility] Organization [facility] Care Team Providers Care Contracts Analyst Name Role Phone [facility] Unavailable Unavailable Problems Combined list of problems from Department of [facility] and [facility] facilities. It does not include entries that were removed or entered in error. Problem Status Onset Date Problem Type Date of Resolution Comments Source Essential hypertension Active Condition [facility] Hyperlipidemia Active Condition . ANDREW IS [facility] Obstructive sleep apnea syndrome Active Condition [facility] Restless legs Active Condition . KAREN S [facility] Tobacco user Active Condition [facility] Immunizations Combined list of available immunizations from the Department of [facility] and [facility] facilities. Immunization Series Date Given Administered By Site Reaction Lot Number CVX Code Drug Sales Department Manager Status Comments Source TDAP 2016 115 complet ed Left Deltoid [facility] N Encounters Combined list of: 1) Encounters from Department of [facility] facilities going back up to thelast 18 months. 2) Encounters from the Department of [facility] facilities going back up to 280 months. Location Location Details Encounter Type Encounter Number Reason For Visit Attending Provider ADM Date DC Date Status Disposition Source [facility] Outpatient Encounter [id number] 01/29 [facility] Outpatient Encounter [id number] 02/03 [facility] N Social History Combined list of available smoking, tobacco, and other social history from [facility] and [facility] facilities. Social History Type Response Date Comment Sourc e Tobacco smoking status NHIS TOBACCO USER OFFERED MEDS 07/26/2017 [facility] History of tobacco use CURRENT TOBACCO USER 07/26/2017 [facility] History of tobacco use CURRENT TOBACCO USER 06/10/2017 [facility] History of tobacco use CURRENT TOBACCO USER 11/15/2016 [facility]
--- OUTSIDE RECORDS SUMMARY | 2024-09-17 14:00 | XMS_ITS | Encounter Summary ---
Author Organization [facility] Address [address] [place] [address] Care Team Providers Care Caseworker Name Role Phone La Kearney MD Primary [...] st Contact Info) Description 09/21/2024 9:00 AM AUTOMATIC FURNACE OPERATOR Appointment [facility] Nuclear Medicine [address] [place] [address] Rafael Anton MD [address] [facility] [address] [place] [address] 09/21/2024 10:00 AM AUTOMATIC FURNACE OPERATOR Appointment [facility] Nuclear Medicine [address] [place] [address] Rafael Anton MD [address] [facility] [address] [place] [address] 11/18/2024 8:15 AM CDT Office Visit [facility] Heart and Vascular At [facility] [address] [facility] [address] [place] [address] Rafael Anton MD [address] [place] [address] documented as of this encounter Visit Diagnoses Not on filedocumented in this encounter Care Teams Caseworker Relationship Specialty Start Date End Date La Kearney MD [address] [place] [address] [place] [address] PCP - General Family Practice 08/13/23 documented as of this encounter
--- OUTSIDE RECORDS SUMMARY | 2024-09-17 14:00 | XMS_ITS | Referral Summary ---
Author Organization [facility] Address [address] [place] [address] Care Team Providers Care Warehouse Unloader Name Role Phone Mariaelena Zaidi MD Unavailable La Kearney MD Primary Care Provide r Encounters Date Type Department Care Team Description 2024 Orders Only [facility] Primary Care at [address] [place] [address] Shannan Galvan NP Cyst of joint of shoulder (Primary Dx); Tendon tear 2024 Telephone [facility] Primary Care at [address] [place] [phone] La Kearney MD 09/07/2024 6:36 AM CASKET TRIMMER - 09/07/2024 11:59 PM CASKET TRIMMER Hospital Encounter [facility] [address] [place] [address] Acute pain of right shoulder; Weakness of right arm Discharge Disposition: Discharge to home or self care 08/20/2024 Orders Only [facility] Primary Care at [address] [place] [address] Shannan Galvan NP Acute pain of right shoulder (Primary Dx); Weakness of right arm 08/20/2024 10:11 AM CASKET TRIMMER - 08/20/2024 11:59 PM CASKET TRIMMER Hospital Encounter [facility] 2 [facility] [address], [address] [place] [address] Wilfredo Mccormick MD Myalgia, other site (Primary Dx); Chronic right shoulder pain Discharge Disposition: Discharge to home or self care 08/19/2024 10:30 AM CASKET TRIMMER Office Visit [facility] Primary Care at [address] [place] [phone] Shannan Galvan NP Chronic midline low back pain without sciatica (Primary Dx); Degenerative disc disease, cervical; Acute pain of right shoulder; Weakness of right arm 08/17/2024 Telephone [facility] Primary Care at [address] [place] [phone] La Kearney MD Appointment Request from Last [...] 10/07/2023 Assessment & Plan (10/07/2023 1:20 PM CASKET TRIMMER): New concern Not at goal Will get [...] 10/07/2023 Assessment & Plan (10/15/2023 9:14 AM CASKET TRIMMER): Pathology has been reviewed with the patient. [...] 08/08/2023 Assessment & Plan (08/08/2023 4:00 PM CASKET TRIMMER): Acute problem- this is a recurring problem Seen in ED for intermittent palpations Follow up with cardiology as scheduled Continue to monitor ECG: Vent Rate: 108 bpm RR Interval: 553 msec KS Interval: 163 msec QRS Duration: 97 msec QT Interval: 383 msec QTC Interval: 446 msec P-R-T [place]: 46 - 2 - 13 degrees IMPRESSION: SINUS TACHYCARDIA WITH FREQUENT SUPRAVENTRICULAR PREMATURE COMPLEXES Compared to prior EKG, heart rate is now faster and PVCs are new. (Electronically Signed By: Dr Anoop Pablo) ECG: Vent Rate: 66 bpm RR Interval: 898 msec KS Interval: 170 msec QRS Duration: 99 msec QT Interval: 399 msec QTC Interval: 413 msec P-R-T [place]: 45 - 14 - 29 degrees IMPRESSION: [...] annual Assessment & Plan (10/02/2022 1:19 PM CASKET TRIMMER): Med list and problem list reviewed Benign prostatic hyperplasia with weak urinary s tream 06/12/2022 Overview (06/12/2022): Added automatically from request for surgery [id number] Assessment & Plan (05/22/2024 7:06 AM CDT): Stable / clinically quiescent. Will continue to monitor. Managed by urology On flomax cialis and oxybutynin Assessment & Plan (06/06/2023 7:03 AM CDT): Stable / clinically quiescent. Will continue to monitor. Vitamin D deficiency 12/13/2021 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 Assessment & Plan (10/18/2021 4:41 PM CASKET TRIMMER): Discussed with pt that he will need [...] daily Assessment & Plan (10/18/2021 3:11 PM CASKET TRIMMER): Patient reiterated no suicidal thoughts at this [...] bedtime Assessment & Plan (07/27/2020 9:25 AM CASKET TRIMMER): HPI: Condition is new A&P: Discussed/ordered labs, [...] your phone. Examples would be headspace, calm, [id number], Personal Steve. Please work on this every [...] 03/30/2019 Assessment & Plan (10/18/2021 3:14 PM CASKET TRIMMER): Patient reiterated no suicidal thoughts at this [...] needed. Assessment & Plan (09/30/2019 4:20 PM CASKET TRIMMER): Pt's says the buproprion 150mg daily is [...] month Assessment & Plan (10/18/2021 3:13 PM CASKET TRIMMER): HPI: Condition is stable A&P: Discussed/ordered labs, encouraged healthy, low carbohydrate lifestyle and at least 150min/week of exercise, Meloxicam 15 mg daily Assessment & Plan (04/11/2021 4:43 PM CDT): HPI: Condition is stable A&P: Discussed/ordered labs, encouraged healthy, low carbohydrate lifestyle and at least 150min/week of exercise, no meds needed at this time. Laryngopharyngeal reflux (LPR) 10/29/2018 Assessment & Plan (10/18/2021 3:15 PM CASKET TRIMMER): HPI: Condition is stable no meds at this time, encouraged healthy diet and exercise Avoid trigger foods including: carbonated beverages, caffeine, spicy, fried foods, tomatoes, cucumbers, mint, and acidic fruits/juices like orange/lemon/grapefruit. Avoid eating/drinking anything for at least 2 hours before bed. Sleep with bed propped. 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 with pt, would like to remain on medication at this time Assessment & Plan (09/30/2019 2:17 PM CASKET TRIMMER): Discussed/ordered labs, Condition is stable, encouraged healthy, low carbohydrate lifestyle and at least 150min/week of exercise, continue on ranitidine 300mg nightly Assessment & Plan (10/29/2018 4:10 PM CASKET TRIMMER): Start Zantac 300 mg at bedtime Increase caffeine free and soda free fluid daily LPR discussed and Handout provided Hyperlipidemia 07/12/2016 Overview (12/15/2016): Hyperlipidemia Assessment & Plan (05/22/2024 7:04 AM CDT): Stable Continue pravastatin 40mg daily Assessment & Plan (06/06/2023 7:02 AM CDT): Stable Continue pravastatin 40mg daily Assessment & Plan (10/18/2021 3:12 PM CASKET TRIMMER): HPI: Condition is stable A&P: Discussed/ordered labs, [...] daily Assessment & Plan (09/30/2019 2:17 PM CASKET TRIMMER): Discussed/ordered labs, Condition is stable, encouraged healthy, low carbohydrate lifestyle and at least 150min/week of exercise, continue on pravastatin 40mg daily Assessment & Plan (10/20/2018 10:22 PM CASKET TRIMMER): Lipid abnormalities are unchanged. Nutritional counseling was [...] months Assessment & Plan (08/08/2023 3:45 PM CASKET TRIMMER): Chronic problem-controlled with current regimen Continue metoprolol [...] months Assessment & Plan (10/02/2022 1:11 PM CASKET TRIMMER): Bp in the office today BP Readings from Last 1 Encounters: 10/02/22 138/76 Continue current regimen Recommend DASH diet, heart-healthy lifestyle, exercise. Discussed the risks of hypertension. F/u in 6 months Assessment & Plan (10/18/2021 3:12 PM CASKET TRIMMER): HPI: Condition is stable A&P: Discussed/ordered labs, [...] daily Assessment & Plan (09/30/2019 2:16 PM CASKET TRIMMER): Discussed/ordered labs, Condition is stable, encouraged healthy, low carbohydrate lifestyle and at least 150min/week of exercise, continue on lisinopril 5mg daily, metoprolol 25mg daily and aspirin 81mg Assessment & Plan (10/20/2018 10:46 PM CASKET TRIMMER): Hypertension is worsening. Uncontrolled Pt. Has not [...] bedtime Assessment & Plan (10/18/2021 4:27 PM CASKET TRIMMER): HPI: Condition is stable A&P: Discussed/ordered labs, [...] cpap Assessment & Plan (09/30/2019 4:16 PM CASKET TRIMMER): Discussed/ordered labs, Condition is stable, encouraged healthy, low carbohydrate lifestyle and at least 150min/week of exercise, continue on mirapex 1.5mg three times daily Make sure you are drinking a lot of water Assessment & Plan (10/20/2018 10:40 PM CASKET TRIMMER): Reports worsening RLS Needs to get updated [...] Insomnia Assessment & Plan (10/18/2021 4:26 PM CASKET TRIMMER): HPI: Condition is stable A&P: Discussed/ordered labs, [...] med) Assessment & Plan (07/27/2020 9:27 AM CASKET TRIMMER): HPI: Condition is worsening A&P: Discussed/ordered labs, [...] your phone. Examples would be headspace, calm, [id number], Personal Steve. Please work on this every [...] cpap Assessment & Plan (09/30/2019 4:16 PM CASKET TRIMMER): Pt states using cpap for 8 hours/night [...] machine Assessment & Plan (10/02/2022 1:20 PM CASKET TRIMMER): Continue following with sleep medicine They recently increased his pressure Assessment & Plan (10/18/2021 4:26 PM CASKET TRIMMER): HPI: Condition is stable A&P: Discussed/ordered labs, [...] cpap Assessment & Plan (09/30/2019 4:15 PM CASKET TRIMMER): Pt states using cpap for 8 hours/night 7 nights/wk Pt states less daytime somnolence, feels better when using it. Would recommend the continued use of cpap Assessment & Plan (10/20/2018 10:24 PM CASKET TRIMMER): Hx of TAJ Last sleep study about [...] 05/22/2024 Assessment & Plan (08/08/2023 4:06 PM CASKET TRIMMER): I personally reviewed H&P documentation by ED provider, CXR imaging, and ECG tracings [facility] Medications reviewed and reconciled this visit Rectal pain 05/25/2020 10/18/2021 Overview (05/25/2020): Added automatically from request for surgery [id number] Encounter for screening colonoscopy 05/25/2020 04/11/2021 Overview (05/25/2020): Added automatically from request for surgery [id number] Numbness and tingling of lower extremity 12/09/2019 [...] in your mouth on an olegario like [email or web address] Lower carb substitutions: Aldi carries a zero [...] in much longer they will become mushy Preemption and/or coconut flour instead of regular flour [...] pork rinds For yogurt, try Two Good chadian yogurt Use Mercedes for recipe ideas. Type [...] in your mouth on an olegario like [email or web address] Lower carb substitutions: Aldi carries a zero [...] in much longer they will become mushy Preemption and/or coconut flour instead of regular flour [...] pork rinds For yogurt, try Two Good chadian yogurt Use Pinterest for recipe ideas. Type [...] cup. Assessment & Plan (10/18/2021 3:11 PM CASKET TRIMMER): HPI: Condition is stable goal BMI <30 A&P: Healthy, high-protein, lower carbohydrate, lower fat lifestyle and exercise for 150min/week recommended Substitutions: Recommend tracking everything you put in your mouth on an olegario like [email or web address] or Carbay Aldi carries a zero net carb bread [...] in much longer they will become mushy Preemption and/or coconut flour instead of regular flour [...] pork rinds For yogurt, try Two Good chadian yogurt Use Pinterest for recipe ideas. Type in low carb... Assessment & Plan (04/11/2021 4:51 PM CDT): HPI: Condition is not at/near goal goal BMI <30 A&P: Healthy, high-protein, lower carbohydrate, lower fat lifestyle and exercise for 150min/week recommended Calories 2100 Protein 212 Fats 94 Carbs 106 Substitutions: Recommend tracking everything you put in your mouth on an olegario like [employer] or Carbay Aldi carries a zero net carb bread [...] in much longer they will become mushy Preemption and/or coconut flour instead of regular flour [...] pork rinds For yogurt, try Two Good chadian yogurt Use Pinterest for recipe ideas. Type in low carb... Assessment & Plan (07/27/2020 9:24 AM CASKET TRIMMER): HPI: Condition is stable A&P: Healthy, low [...] in much longer they will become mushy Preemption and/or coconut flour instead of regular flour [...] in much longer they will become mushy Preemption and/or coconut flour instead of regular flour [...] carb... Assessment & Plan (09/30/2019 4:21 PM CASKET TRIMMER): Healthy, low carbohydrate lifestyle and exercise for 150min/week recommended Generalized abdominal pain 06/27/2019 0 10/18/2021 Assessment & Plan (04/28/2020 10:06 PM CDT): CT abd/pelvis ordered Assessment & Plan (09/30/2019 4:15 PM CASKET TRIMMER): He had CT scan last March which showed kidney stones Non-intractable cyclical vom iting without nausea 10/20/2018 04/28/2020 Assessment & Plan (09/30/2019 4:09 PM CASKET TRIMMER): Having vomiting 1-2 times a day, none [...] propped. Assessment & Plan (10/20/2018 10:29 PM CASKET TRIMMER): Reports almost daily vomiting in the morning [...] 09/30/2019 Assessment & Plan (10/20/2018 10:52 PM CASKET TRIMMER): Recent chest pain, palpitations and went to [...] on file Legal Sex Male 8:02 AM CASKET TRIMMER Gender Identity Not on file Sexual Orientation Not on file Last Filed Vital Signs Vital Sign Reading Time Taken Comments Blood Pressure 140/94 08/20/2024 10:48 AM CASKET TRIMMER Pulse 96 08/20/2024 10:48 AM CASKET TRIMMER Temperature 36.6 ??C (97.9 ??F) 08/19/2024 10:[address] Respiratory Rate 18 08/20/2024 10:48 AM CASKET TRIMMER Oxygen Saturation 96% 08/20/2024 10:48 AM CASKET TRIMMER Inhaled Oxygen Concentration - - Weight 128.8 kg (284 lb) 08/19/2024 10:21 AM CASKET TRIMMER Height 188 cm (6' 2 ) 08/19/2024 10:21 AM CASKET TRIMMER Body Mass Index 36.46 08/19/2024 10:21 AM CASKET TRIMMER Plan of Treatment Not on file Medical Devices Implanted Type Area Wireless Sales Expert Device Identifier Shelf Expiration Date Model / Serial / Lot [employer] Ashwin Contour 6fr 28cm Taper Tip Bladder Oscar Low Profile Large Inner Latex Free 180-224 - [id number] Implanted:Qty: 1 on 04/13/2024 by Lalito Irene MD at [facility] Left: Delfin [employer]win 10/16/2026 [id number] / / [id number] Procedures Procedure Name Priority Date/Time Associated Diagnosis Comments MRI SHOULDER RIGHT WO CONTRAST Schedule Routine, Read Routine (OP Routine) 09/07/2024 7:17 AM CASKET TRIMMER Acute pain of right shoulder Weakness of right arm HEPATITIS C ANTIBODY Routine 06/08/2023 8:33 AM CDT Mixed hyperlipidemia Essential hypertension Need for hepatitis C screening test IGT (impaired glucose tolerance) PSA SCREEN Routine 12/13/2021 9:14 AM CDT Prostate cancer screening COLONOSCOPY 08/26/2020 7:40 AM CASKET TRIMMER from Last 3 Months or Most Recently Relevant to Health Maintenance Results * MRI Shoulder Right WO Contrast (09/07/2024 7:17 AM CASKET TRIMMER) Anatomical Region Laterality Modality Upper Extremities Right Magnetic Reson ance 09/07/2024 7:20 AM CASKET TRIMMER Narrative 09/07/2024 7:26 AM CASKET TRIMMER EXAM DESCRIPTION: MRI SHOULDER RIGHT WO CONTRAST [...] AM T: ??09/07/2024 7:26 AM Report ID: [id number] Reading Location: ??[id number] Procedure Note Michael Xiong MD - 09/07/2024 [...] Michael Xiong M.D. MF: CHANI Report ID: [id number] Reading Location: [place] [address] Shannan Galvan NP IM MRI PROCEDURES Final [...] last revised on 2019. Testing performed by: [facility], [address] [place] [address]., [id number] Blood 06/08/2023 8:33 AM CDT 06/08/2023 11:10 AM CDT Narrative [facility] - 06/08/2023 11:46 AM CDT fasting La Kearney MD LAB MICROBIOL OGY - GENERAL ORDERABLES Edited Result - Final [facility] Department of Laboratories [place], [place] [id number] * PSA screen (12/13/2021 9:14 AM CDT) Pathologist [facility] PSA-Total 3.65 <=3.90 ng/mL [facility] Comment: Interpretive Data ?AGE ? SEX ?REFERENCE INTERVAL 0 minutes-150 years ?Female ?None 0 minutes-49 years ? Male ?None ? 50-59 years ? Male ?0-3.90 ? 60-69 years ? Male ?0-5.40 ? 70-79 years ? Male ?0-6.20 ? 80-150 years ?Male ?0-6.20 Current interpretive data last revised 2018. Testing performed by: [facility], [address] [place] [address], [place]., [address] Blood 12/13/2021 9:14 AM CDT 12/13/2021 2:02 PM CDT us Laura Tapia BASKET BRAIDER LAB BLOOD ORDERABLES Final Result [facility] [place] [address] * COLONOSCOPY (08/26/2020 7:40 AM CASKET TRIMMER) Anatomical Region Laterality Modality Other Narrative Procedure Note Antoinette Sawyer MD - 08/26/2020 7:40 AM CST Digestive [facility] Patient Name: Jaden De La [...] passed under direct vision.The Pediatric Colonoscope [id number] was introduced through the anus and advanced [...] 7:40 AM Procedure Code(s): --- Professional --- 99310, Colonoscopy, flexible; diagnostic, including collection of specimen(s) by brushing or washing, when performed (separateprocedure) Diagnosis Code(s): --- Professional --- Z12.11, Encounter for screening for malignant neoplasm of colon K64.8, Other hemorrhoids CPT copyright 2017 [employer]. All rights reserved. The codes documented in this report are preliminary and upon lay out former reviewmay be revised to meet current compliance requirements. Recognized by the [place] [employer] for promoting quality in endoscopy Antoinette Sawyer MD ENDOSCOPY PROCEDURES Final Result from Last 3 Months or Most Recently Relevant to Health Maintenance Insurance Karma[employer] OOS Karma[employer] OOS BLUE ACC CHOICE OOS Advance Directives For more information, please contact: [phone] * Full Code (Latest Code Status on [...] 12:01 PM 02/07/2019 4:36 AM Care Teams Warehouse Unloader Relationship Specialty Start Date End Date La Kearney MD [address] [place] [phone] PCP - General Family Medicine 10/02/22 Mariaelena Zaidi MD Consulting Physician Sleep Medicine 07/12/21
--- OUTSIDE RECORDS SUMMARY | 2024-09-17 14:00 | XMS_ITS | Encounter Summary ---
Author Organization [facility] Healthcare Address [address] [place] [address] Care Team Providers Care Rock Mason Name Role Phone Mariaelena Zaidi MD Unavailable La Kearney MD Primary Care Provide r Reason for Referral * Consultation (Routine) - Authorized Specialty Diagnoses / Procedures Referred By Contac t Referred To Contact Pain Management Diagnoses Chronic midline thoracic back pain Neck pain La Keareny MD [address] [place] [address] [address] [place] [address] Phone: tel: fax: Jose Stanton MD [address] [place] [address] [facility] [address] [place] [address] Phone: tel: fax: Referral ID Status Reason Start Date Expiration Date Visits Requested Visits Authorized [id number] Authorized Specialty Services Required 05/25/2024 06/24/2025 1 1 Question Answer Please select the performing region: [facility] [144] To provider: JOSE STANTON [[id number]] # of visits: 1 Comments Or other provider Encounter Details Date Type Department Care Team (Late st Contact Info) Description 05/25/2024 Orders Only [facility] Primary Care at [address] [place] [phone] La Kearney MD [address] [place] [address] [address] [place] [phone] Chronic midline thoracic back pain (Primary Dx); [...] on file Legal Sex Male 8:02 AM LANGUAGE THERAPIST Gender Identity Not on file Sexual [...] shoulder documented in this encounter Care Teams Rock Mason Relationship Specialty Start Date End Date La Kearney MD [address] [facility] [address] [place] [address] PCP - General Family Medicine 10/02/22 Mariaelena Zaidi MD Consulting Physician Sleep Medicine 07/12/21 documented as of this encounter
--- OUTSIDE RECORDS SUMMARY | 2024-09-17 14:00 | XMS_ITS | Encounter Summary ---
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 Scheduled him w/Shannan for tomorrow at 10:30. ER * Telephone Encounter - Fior Contreras - [...] care team offered (e.g., nurse practioner(s), physician web marketing assistant(s)) ? Yes Additional Comments: none Does message need to be routed? Yes-Action Needed ER documented in this encounter Plan of Treatment Not on file documented as of this encounter Visit Diagnoses Not on filedocumented in this encounter Care Teams Scrap Drop Engineer Relationship Specialty Start Date End Date La Kearney MD [address] [place] [address] [address] [place] [address] PCP - General Family Medicine 10/02/22 Mariaelena Zaidi MD Consulting Physician Sleep Medicine 07/12/21 documented as of this encounter
--- OUTSIDE RECORDS SUMMARY | 2024-09-17 14:00 | XMS_ITS | Encounter Summary ---
Author Organization [facility] Address [address] [place] [address] Care Team Providers Care Floating Labor Gang Supervisor Name Role Phone La Kearney MD [...] st Contact Info) Description 09/21/2024 9:00 AM NEWS CONTENT SPECIALIST Appointment [facility] Medicine [address] [place] [address] Rafael Anton MD [address] [facility] [address] [place] [address] 09/21/2024 10:00 AM NEWS CONTENT SPECIALIST Appointment [facility] Medicine [address] [place] [address] Rafael Anton MD [address] [place] [address] 11/18/2024 8:15 AM CDT Office Visit [facility] [address] [facility] [address] [place] [address] Rafael Anton MD [address] [place] [address] documented as of this encounter Visit Diagnoses Not on filedocumented in this encounter Care Teams Floating Labor Gang Supervisor Relationship Specialty Start Date End Date La Kearney MD [address] [place] [address] [place] [phone] PCP - General Family Practice 08/13/23 documented as of this encounter
--- OUTSIDE RECORDS SUMMARY | 2024-09-17 14:00 | XMS_ITS | Encounter Summary ---
Author Organization [facility] Healthcare Address [address] [place] [address] Care Team Providers Care Exhaust Machine Operator Name Role Phone Maraielena Zaidi MD Unavailable La Kearney MD Primary Care Provide r Reason for Visit * Diagnostic Imaging (Routine) - Closed Specialty Diagnoses / Procedures Referred By Contac t Referred To Contact Diagnoses Chronic midline thoracic back pain Procedures XR Spine Thoracic 3 Vw XR Spine Thoracic 2 Vw La Kearney MD [address] [place] [address] Phone: tel: fax: [address] [address] Referral ID Status Reason Start Date Expiration Date Visits Re quested Visits Authorized [id number] Closed 05/25/2024 06/24/2025 1 1 Encounter Details Date Type Department Care Team (Latest Contact Info) Description 05/25/2024 9:25 AM CDT - 05/25/2024 11:59 PM CDT Hospital Encounter [facility] [address] [place] [address] Chronic midline thoracic back pain; Acute pain [...] on file Legal Sex Male 8:02 AM 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 AT: AT Report ID: [id number] Reading Location: [place] [address] La Kearney MD IMG XR PROCEDURES Fin [...] AM T: ??05/26/2024 1:56 AM Report ID: [id number] Reading Location: ??[id number] Procedure Note Mary Somers MD - 05/26/2024 [...] Mary Somers M.D. AT: AT Report ID: [id number] Reading Location: [id number] La Kearney MD IMG XR PROCEDURES Fin [...] AM T: ??05/26/2024 1:56 AM Report ID: [id number] Reading Location: ??[id number] Procedure Note Mary Somers MD - 05/26/2024 [...] Mary Somers M.D. AT: AT Report ID: [id number] Reading Location: [place] [address] La Kearney MD IMG XR PROCEDURES Fin al Result documented in this encounter Visit Diagnoses Diagnosis Chronic midline thoracic back pain Acute pain of right shoulder documented in this encounter Care Teams Exhaust Machine Operator Relationship Specialty Start Date End Date La Kearney MD [address] [place] [address] [address] PCP - General Family Medicine 10/02/22 Mariaelena Zaidi MD Consulting Physician Sleep Medicine 07/12/21 documented as of this encounter
--- OUTSIDE RECORDS SUMMARY | 2024-09-17 14:00 | XMS_ITS | Encounter Summary ---
Author Organization [facility] Healthcare Address [address] [place] [address] Care Team Providers Care Vmware Architect Name Role Phone Mariaelena Zaidi MD Unavailable La Kearney MD Primary Care Provide r Reason for Referral * Diagnostic Imaging (Routine) - Authorized Specialty Diagnoses / Procedures Referred By Zaida camacho Referred To Contact Diagnoses Myalgia, other site Procedures Imaging Ultrasound Trigger Point INJ 3+ Muscle Groups () Wilfredo Mccormick MD [address] [place] [address] DR LUCAS [address] [place] [address] Phone: tel: fax: [facility] [address] [place] [address] Referral ID Status Reason Start Date Expiration Date V isits Requested Visits Authorized [id number] Authorized 08/20/2024 09/19/2025 1 1 GRINDER Reason for Visit * Reason Comments Initial Consult Pain Encounter Details Date Type Department Care Team (Latest Contact Info) Description 08/20/2024 10:11 AM SAW GRINDER - 08/20/2024 11:59 PM SAW GRINDER Hospital Encounter [facility] 2 [facility] [address] [place] [address] Wilfredo Mccormick MD [address] [facility] [address] [place] [address] Myalgia, other site (Primary Dx); Chronic right [...] on file Legal Sex Male 8:02 AM SAW GRINDER Gender Identity Not on file Sexual Orientation Not on file documented as of this encounter Last Filed Vital Signs Vital Sign Reading Time Taken Comments Blood Pressure 140/94 08/20/2024 10:48 AM SAW GRINDER Pulse 96 08/20/2024 10:48 AM SAW GRINDER Temperature - - Respiratory Rate 18 08/20/2024 10:48 AM SAW GRINDER Oxygen Saturation 96% 08/20/2024 10:48 AM SAW GRINDER Inhaled Oxygen Concentration - - Weight - [...] Jaden De La Torre Age: 53 y.o. [facility] New Patient Visit Subjective Jaden [...] ???lock up?? . 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 Outstanding referral from orthopedics. Occasional managed care nurse which helps temporarily. 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 Wilfredo Mccormick MD Interventional Pain Management [facility] PLAN JUSTIFICATION History and physical exam [...] spent a total of 10 minutes of wmh-nqtc-gh-face time performing a review of the recordand/or discussion with the patient/caregiver as described above. Total time spent with patient 30 minutes, total time in counseling 20 minutes. RN COMMUNITY: Wheel Polisher completed with Fluency Direct, dictation proofread to best of my ability. GRINDER documented in this encounter Nursing Notes * [...] Domingo Steadi) [x] Depression/Anxiety Assessment (GAD7, PHQ-9, Fay Suicide, Dill Depression) [] Disability Scale [] [...] and care coordination was approximately 11-20 minutes. GRINDER documented in this encounter Plan of Treatment [...] region documented in this encounter Care Teams Vmware Architect Relationship Specialty Start Date End Date La Kearney MD [address] [place] [address] [address] PCP - General Family Medicine 10/02/22 Mariaelena Zaidi MD Consulting Physician Sleep Medicine 07/12/21 documented as of this encounter
--- OUTSIDE RECORDS SUMMARY | 2024-09-17 14:00 | XMS_ITS | Encounter Summary ---
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 AT: AT Report ID: [id number] Reading Location: [id number] La Kearney MD IMG XR PROCEDURES Fin [...] AM T: ??05/26/2024 1:56 AM Report ID: [id number] Reading Location: ??[id number] Procedure Note Mary Somers MD - 05/26/2024 [...] Mary Somers M.D. AT: AT Report ID: [id number] Reading Location: [id number] La Kearney MD IMG XR PROCEDURES Fin al Result documented in this encounter Visit Diagnoses Diagnosis Acute pain of right shoulder- Primary Chronic midline thoracic back pain Chronic midline thoracic back pain Acute pain of right shoulder documented in this encounter Care Teams Ultrasound Coordinator Relationship Specialty Start Date End Date La Kearney MD [address] [place] [address] [address] PCP - General Family Medicine 10/02/22 Mariaelena Zaidi MD Consulting Physician Sleep Medicine 07/12/21 documented as of this encounter
--- OUTSIDE RECORDS SUMMARY | 2024-09-17 14:00 | XMS_ITS | Encounter Summary ---
Author Organization [facility] Healthcare Address [address] [place] [address] Care Team Providers Care Equipment Scheduler Name Role Phone Mariaelena Zaidi MD Unavailable La Kearney MD Primary Care Provide r Reason for Visit * Reason Onset Date Comments Additional Services Or Orders 06/01/2024 Medical Question/Miscellaneous 06/01/2024 Encounter Details Date Type Department Care Team (Late st Contact Info) Description 06/01/2024 Telephone [facility] Medical [facility] Primary Care at [address] [place] [address] La Kearney MD [address] [place] [address] [address] [place] [address] Additional Services Or Orders; Medical [...] on file 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 Warm transferred as patient was in office currently Does message need to be routed? No documented in this encounter Plan of Treatment Not on file documented as of this encounter Visit Diagnoses Not on filedocumented in this encounter Care Teams Equipment Scheduler Relationship Specialty Start Date End Date La Kearney MD [address] [facility] [address] LUCAS [address] [place] [address] PCP - General Family Medicine 10/02/22 Mariaelena Zaidi MD Consulting Physician Sleep Medicine 07/12/21 documented as of this encounter
--- OUTSIDE RECORDS SUMMARY | 2024-09-17 14:00 | XMS_ITS | Encounter Summary ---
Author Organization [facility] Address [address] [place] [address] Care Team Providers Care Trial Management Associate Name Role Phone La Kearney MD Primary Care Provide r Reason for Visit * Reason Onset Date Comments Erroneous encounter-disregard 09/13/2023 Encounter Details Date Type Department Care Team (Late st Contact Info) Description 09/13/2023 Refill [facility] Heart and Vascular At [facility] [address] [facility] [address] [place] [address] Rafael Anton MD [address] [facility] [address] [place] [address] Social History Tobacco Use Types Packs/Day Years Used Date Smoking Tobacco: Never Smokeless Tobacco: Never Sex and Gender Information Value Date Recorded Sex Assigned at Not on file Gender Identity Not on file Sexual Orientation Not on file documented as of this encounter Plan of Treatment Upcoming Encounters Date Type Department Care Team (Late Contact Info) Description 09/21/2024 9:00 AM PUNCH BOX TENDER Appointment [facility] Nuclear Medicine [address] [place] [address] Rafael Anton MD [address] [facility] [address] [place] [address] 09/21/2024 10:00 AM PUNCH BOX TENDER Appointment [facility] Nuclear Medicine [address] [place] [address] Rafael Anton MD [address] [facility] [address] [place] [address] 11/18/2024 8:15 AM CDT Office Visit [facility] Heart and Vascular At [facility] [address] [facility] [address] [place] [address] Rafael Anton MD [address] [facility] [address] [place] [address] documented as of this encounter Visit Diagnoses Not on filedocumented in this encounter Care Teams Trial Management Associate Relationship Specialty Start Date End Date La Kearney MD [address] [facility] [address] LUCAS [address] [place] [address] PCP - General Family Practice 08/13/23 documented as of this encounter
--- OUTSIDE RECORDS SUMMARY | 2024-09-17 14:00 | XMS_ITS | Continuity of Care Document ---
Author Organization [facility] Address [address] [place] [address] [address] [place] [address] Phone Care Team Providers Care Delivery Table Feeder Name Role Phone Paco Burns Unavailable Unavailable Procedures Procedure Date Office/outpatient Visit, [facility] Advance Directives Directive Yes / No Effective Date File Name No Information Encounters Encounter Description Practice Location Reason(s) For Visit Diagnoses Date Provider Providers Copied on Encounter Office/outpat ient Visit, [facility], [address] [place] [address] [address], [place], [place], [id number], [place] tel:[phone] [facility] [place] No Information [phone] Doisy Edward. [address] [facility] [place] , [address], [place], [address], [place]. tel:[phone] Family History Family Member Type Diagnosis Age At Onset No Information Payers Payer name Insurance type Covered libertarian ID Authorluisaa hyacinth(s) [facility] [id number] Social History Type Description Quantity Date Captured [...]
--- OUTSIDE RECORDS SUMMARY | 2024-09-17 14:00 | XMS_ITS | Encounter Summary ---
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
--- OUTSIDE RECORDS SUMMARY | 2024-09-17 14:00 | XMS_ITS | Encounter Summary ---
Author Organization [facility] Address [address] [place] [address] Care Team Providers Care Roll Builder Name Role Phone La Kearney MD Primary [...] st Contact Info) Description 09/21/2024 9:00 AM CASE CONSULTANT Appointment [facility] Nuclear Medicine [address] [place] [address] Rafael Anton MD [address] [facility] [address] [place] [address] 09/21/2024 10:00 AM CASE CONSULTANT Appointment [facility] Nuclear Medicine [address] [place] [address] Rafael Anton MD [address] [facility] [address] [place] [address] 11/18/2024 8:15 AM CDT Office Visit [facility] [address] [facility] [address] [place] [address] Rafael Anton MD [address] [facility] [address] [place] [address] documented as of this encounter Visit Diagnoses Not on filedocumented in this encounter Care Teams Roll Builder Relationship Specialty Start Date End Date La Kearney MD [address] [place] [address] [place] [address] PCP - General Family Practice 08/13/23 documented as of this encounter
--- OUTSIDE RECORDS SUMMARY | 2024-09-17 14:00 | XMS_ITS | Encounter Summary ---
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 Gender Identity Not on file Sexual [...] MD - 05/25/2024 8:45 AM CDT My registered medical assistant and I are thankful you have trusted [...] 05/25/2020 Added automatically from request for surgery [id number] Sleep apnea Urinary retention No Known Allergies [...] documented as of this encounter Care Teams Dynamometer Repairer Relationship Specialty Start Date End Date La Kearney MD [address] [place] [address] DR LUCAS [address] [place] [address] PCP - General Family Medicine 10/02/22 Mariaelena Zaidi MD Consulting Physician Sleep Medicine 07/12/21 documented as of this encounter
--- OUTSIDE RECORDS SUMMARY | 2024-09-17 14:00 | XMS_ITS | Encounter Summary ---
Author Organization [facility] Address [address] [place] [address] Care Team Providers Care Polystyrene Bead Molder Name Role Phone La Kearney MD Primary Care Provide r Reason for Visit * Cardiology Testing (Routine) - Closed Specialty Diagnoses / Procedures Referred By Zaida camacho Referred To Contact Diagnoses Palpitations Procedures MOBILE CARDIAC OUTPATIENT TELEMETRY Rafael Anton MD [address] [facility] [address] [place] [address] Referral ID Status Reason Start Date Expiration Date Visits Re quested Visits Authorized [id number] Closed 08/13/2023 09/12/2024 1 1 Encounter Details Date Type Department Care Team (Latest Contact Info) Description 08/13/2023 10:43 AM PHLEBOTOMY COORDINATOR - 08/13/2023 11:59 PM PHLEBOTOMY COORDINATOR Hospital Encounter [facility] [place] [facility] Non Invasive Cardiology [address] [place] [address] Rafael Anton MD [address] [facility] [address] [place] [address] Discharge Disposition: Home or Self [...] 08/31/2023 3:20 AM CSTAssociated Order(s): HOLTER MONITOR [place], [place] [address] Command And Control Officer Report CSN: [id number] DATE OF SERVICE: 08/13/2023 ORDERING PROVIDER Rafael [...] sinus bradycardia with a PVC. TD:MEDQ DID: [id number] Dictated by: Dima Cohen MD CC: Rafael Anton MD BOTOMY COORDINATOR documented in this encounter Plan of Treatment Upcoming Encounters Date Type Department Care Team (Late st Contact Info) Description 09/21/2024 9:00 AM PHLEBOTOMY COORDINATOR Appointment [facility] Nuclear Medicine [address] [place] [address] Rafael Anton MD [address] [facility] [address] [place] [address] 09/21/2024 10:00 AM PHLEBOTOMY COORDINATOR Appointment [facility] [place] [facility] Nuclear Medicine [address] [place] [address] Rafael Anton MD [address] [facility] [address] [place] [address] 11/18/2024 8:15 AM CDT Office Visit [facility] Heart and Vascular At [facility] [address] [facility] [address] [place] [address] Rafael Anton MD [address] [facility] [address] [place] [address] documented as of this encounter Procedures Procedure Name Priority Date/Time Associated Diagnosis Comments HOLTER MONITOR 08/31/2023 3:20 AM PHLEBOTOMY COORDINATOR documented in this encounter Results * HOLTER MONITOR (08/31/2023 3:20 AM PHLEBOTOMY COORDINATOR) Narrative Procedure Note Dima Cohen MD - 08/31/2023 3:20 AM CST [place], [place] [address] Command And Control Officer Report CSN: [id number] DATE OF SERVICE: 08/13/2023 ORDERING PROVIDER Rafael [...] rhythm, sinus bradycardia with a PVC. TD:MEDQ DID:[id number] Dictated by: Dima Cohen MD CC: Rafael Anton MD Dima Cohen MD CARDIAC SERVICES ORD ERABLES [facility] HEART AND VASCULAR CLIA #[id number] [address] [place] [address] documented in this encounter Visit Diagnoses Not on filedocumented in this encounter Care Teams Polystyrene Bead Molder Relationship Specialty Start Date End Date La Kearney MD [address] [facility] [address] [place] [address] PCP - General Family Practice 08/13/23 documented as of this encounter
--- OUTSIDE RECORDS SUMMARY | 2024-09-17 14:00 | XMS_ITS | Encounter Summary ---
Author Organization [facility] Address [address] [place] [address] Care Team Providers Care Apricot Washer Name Role Phone La Kearney MD Primary Care Provide r Reason for Referral * Cardiology Testing (Routine) - Closed Specialty Diagnoses / Procedures Referred By Zaida camacho Referred To Contact Diagnoses Palpitations Procedures MOBILE CARDIAC OUTPATIENT TELEMETRY Rafael Anton MD [address] [place] [address] [address] [place] [address] Referral ID Status Reason Start Date Expiration Date Visits Re quested Visits Authorized [id number] Closed 08/13/2023 09/12/2024 1 1 IRONER Reason for Visit * Reason Comments Establish Care Palpitations Encounter Details Date Type Department Care Team (Latest Contact Info) Description 08/13/2023 10:15 AM FUR IRONER Office Visit [facility] Heart and Vascular At [address] [place] [address] Rafael Anton MD [address] [place] [address] [address] [place] [address] Palpitations (Primary Dx); Premature atrial [...] Comments Blood Pressure 144/76 08/13/2023 9:53 AM FUR IRONER Pulse 64 08/13/2023 9:53 AM FUR IRONER Temperature - - Respiratory Rate - - Oxygen Saturation 97% 08/13/2023 9:53 AM FUR IRONER Inhaled Oxygen Concentration - - Weight 126.7 kg (279 lb 6.4 oz) 08/13/2023 9:53 AM FUR IRONER Height 188 cm (6' 2 ) 08/13/2023 9:53 AM FUR IRONER Body Mass Index 35.87 08/13/2023 9:53 AM FUR IRONER documented in this encounter Progress Notes * Rafael Anton MD - 08/13/2023 10:11 AM CSTAssociated Order(s): EKG Post-Procedure Diagnose(s): Palpitations CARDIOLOGY [facility] History of Present [...] edema, orthopnea, paroxysmal nocturnal dyspnea. Works for [employer] in [place] Current Outpatient Medications Medication Instructions buPROPion HCL [...] TRIGLYCERIDE No results found for: HGBA1C , [id number] The ASCVD Risk score ([place] DK, et al., 2019) failed to calculate [...] new or worsening symptoms. Rafael Anton MD [facility] Voice recognition software was used to complete this document, therefore, toll service observer variances may occur. IRONER * Arina Gibbs - 08/13/2023 9:45 AM CST Patient is here to establish care for Palpitations. Pt stated having heart flutters and sob. IRONER documented in this encounter Miscellaneous Notes * Patient Instructions - Rafael Anton MD - 08/13/2023 10:30 AM CST Increase metoprolol to 50mg once per day Continue as-needed lopressor 2 week monitor No activity restrictions. IRONER documented in this encounter Plan of Treatment Upcoming Encounters Date Type Department Care Team (Late st Contact Info) Description 09/21/2024 9:00 AM FUR IRONER Appointment [facility] [address] [place] [place] [address] Rafael Anton MD [address] [facility] [address] [place] [id number] 09/21/2024 10:00 AM FUR IRONER Appointment [facility] [address] [place] [phone] Rafael Anton MD [address] [facility] [address] [place] [address] [place] [address] 11/18/2024 8:15 AM CDT Office Visit [facility] Heart and Vascular At [facility] [address] [place] [address] Rafael Anton MD [address] [place] [address] [place] [address] Scheduled Orders Name Type Priority Associated Diagnoses Orde r Schedule MOBILE CARDIAC OUTPATIENT TELEMETRY Cardiac Services Routine Palpitations Ordered: 08/13/2023 documented as of this encounter Procedures Procedure Name Priority Date/Time Associated Diagnosis Comments ID ECG ROUTINE ECG W/LEAST 12 LDS W/I&R Routine 08/13/2023 10:15 AM FUR IRONER Palpitations documented in this encounter Results * ID ECG ROUTINE ECG W/LEAST 12 LDS W/I&R (08/13/2023 10:15 AM FUR IRONER) Narrative [facility] - 08/13/2023 10:15 AM FUR IRONER Rafael Anton MD ? 08/13/2023 10:40 AM EKG Date/Time: 08/13/2023 10:15 AM Performed by: Rafael Anton MD Authorized by: Rafael Anton MD ??Rhythm: sinus rhythm Procedure Note Rafael Anton MD - 08/13/2023 10:11 AM CST CARDIOLOGY [facility] History of Present [...] edema, orthopnea, paroxysmal nocturnal dyspnea. Works for [employer] in [place] Current Outpatient Medications Medication Instructions buPROPion HCL [...] TRIGLYCERIDE No results found for: HGBA1C , [id number] The ASCVD Risk score ([place]amy DK, et [...] new or worsening symptoms. Rafael Anton MD [facility] Voice recognition software was used to complete this document, therefore,toll service observer variances may occur. Rafael Anton MD ECG ORDERABLES [facility] CLIA #[id number] [address] [place] [address] documented in this encounter Visit Diagnoses Diagnosis Palpitations- Primary Premature atrial complexes Supraventricular premature beats Benign hypertension Essential hypertension, benign Mixed hyperlipidemia documented in this encounter Care Teams Apricot Washer Relationship Specialty Start Date End Date La Kearney MD [address] [facility] [address] LUCAS [address] [place] [address] PCP - General Family Practice 08/13/23 documented as of this encounter
--- OUTSIDE RECORDS SUMMARY | 2024-09-17 14:00 | XMS_ITS | Encounter Summary ---
Author Organization [facility] Address [address] [place] [address] Care Team Providers Care House Piping Inspector Name Role Phone La Kearney MD Primary Care Provide r Reason for Visit * Reason Comments Follow Up palpitations Encounter Details Date Type Department Care Team (Late st Contact Info) Description 11/13/2023 9:15 AM CSR Office Visit [facility] Heart and Vascular At [facility] [address] [facility] [address] [place] [address] Rafael Anton MD [facility] [address] [place] [id number] Palpitations (Primary Dx); Benign hypertension; Mixed hyperlipidemia; [...] Comments Blood Pressure 122/90 11/13/2023 8:39 AM CSR Pulse 56 11/13/2023 8:39 AM CSR Temperature - - Respiratory Rate - - Oxygen Saturation 96% 11/13/2023 8:39 AM CSR Inhaled Oxygen Concentration - - Weight 122.5 kg (270 lb) 11/13/2023 8:39 AM CSR Height 188 cm (6' 2 ) 11/13/2023 8:39 AM CSR Body Mass Index 34.67 11/13/2023 8:39 AM CSR documented in this encounter Progress Notes * Rafael Anton MD - 11/13/2023 8:48 AM CST CARDIOLOGY [facility] History of [...] machine in several years now. Works for [employer] in [place] We saw him to establish care August [...] TRIGLYCERIDE No results found for: HGBA1C , [id number] The ASCVD Risk score ([place] DK, et al., 2019) failed to calculate [...] new or worsening symptoms. Rafael Anton MD [facility] Voice recognition software was used to complete this document, therefore, sodder variances may occur. * Shane King - 11/13/2023 8:40 AM CST 3 mo f/u on palpitations. Intermittent chest flutters. Intermittent SOB with and without exertion. Swelling lower legs. documented in this encounter Miscellaneous Notes * Patient Instructions - Rafael Anton MD - 11/13/2023 8:59 AM CST Stop metoprolol Start verapamil in place - blood pressure medication Ultrasound of heart Blood work today documented in this encounter Plan of Treatment Upcoming Encounters Date Type Department Care Team (Late st Contact Info) Description 09/21/2024 9:00 AM CSR Appointment [facility] Nuclear Medicine [address] [place] [address] Rafael Anton MD [address] [facility] [address] [place] [address] 09/21/2024 10:00 AM CSR Appointment [facility] Nuclear Medicine [address] [place] [address] Rafael Anton MD [address] [place] [address] [address] [place] [address] 11/18/2024 8:15 AM CDT Office Visit [facility] Heart and Vascular At [facility] [address] [facility] [address] [place] [address] Rafael Anton MD [address] [facility] [address] [place] [address] documented as of this encounter Procedures Procedure Name Priority Date/Time Associated Diagnosis Comments TSH REFLEXIVE Routine 11/13/2023 9:24 AM CSR Palpitations Benign hypertension IRON, TIBC, AND PERCENT SATURATION Routine 11/13/2023 9:24 AM CSR Palpitations Benign hypertension CBC WITH DIFFERENTIAL Routine 11/13/2023 9:24 AM CSR Palpitations Benign hypertension FERRITIN Routine 11/13/2023 9:24 AM CSR Palpitations Benign hypertension LIPID PANEL Routine 11/13/2023 9:24 AM CSR Palpitations Benign hypertension BASIC METABOLIC PANEL Routine 11/13/2023 9:24 AM CSR Palpitations Benign hypertension documented in this encounter Results * IRON, TIBC, AND PERCENT SATURATION (11/13/2023 9:24 AM CSR) IRON 113 50 - 180 mcg/dL [facility] TIBC 382 250 - 425 mcg/dL (calc) [facility] IRON % SATURATION 30 20 - 48 % (calc) [facility] Comment: Test Performed at: [facility] [address] [place], [place] ??[phone] Georgette Ramirez MD Blood 11/13/2023 9:24 AM CSR 11/13/2023 3:14 PM CSR Rafael Anton MD CHEMISTRY ORDERABLES Performing Organization Address City/[facility]/ZIP Co de Phone Number [facility] [phone] [facility] [address] [place] [address] * FERRITIN (11/13/2023 9:24 AM CSR) FERRITIN 221 38 - 380 ng/mL [facility] Comment: Test Performed at: [facility] [address] [place], [place] ??[phone] Georgette Ramirez MD Blood 11/13/2023 9:24 AM CSR 11/13/2023 3:14 PM CSR Rafael Anton MD CHEMISTRY ORDERABLES [facility] [phone] [facility] [address] [place] [address] * CBC WITH DIFFERENTIAL (11/13/2023 9:24 AM CSR) WBC 4.3 3.8 - 10.8 Thousand/u L [...] [facility] Comment: Test Performed at: [facility] [address] [place] ??[phone] Georgette Ramirez Blood 11/13/2023 9:24 AM CSR 11/13/2023 3:14 PM CSR Rafael Anton MD HEMATOLOGY ORDERABLE S [facility] [phone] [facility] [address] [place] [address] * TSH REFLEXIVE (11/13/2023 9:24 AM CSR) TSH 1.47 0.40 - 4.50 mIU/L [facility] Comment: Test Performed at: [facility] ??[phone] Georgette Ramirez MD Blood 11/13/2023 9:24 AM CSR 11/13/2023 3:14 PM CSR Rafael Anton MD CHEMISTRY ORDERABLES [facility] [phone] [address] * (ABNORMAL) LIPID PANEL (11/13/2023 9:24 AM CSR) CHOLESTEROL 194 <200 mg/dL [facility] HDL 42 > OR = 40 mg/dL [facility] TRIGLYCERIDE 183(H) <150 mg/dL [facility] LDL CALCULATED 122(H) mg/dL (calc) [facility] Comment: Reference range: <100 Desirable range <100 mg/dL for primary prevention; ?? <70 mg/dL for patients with CHD or diabetic patients with > or = 2 CHD risk factors. LDL-C is now calculated using the Ochoa-Syed calculation, which is a validated novel method providing better accuracy than the Friedewald equation in the estimation of LDL-C. Ochoa MORALES et al. SHARLENE. 2013;310(19): 2534-1900 (http://education.Docea Power/faq/UNJ069) CHOL/HDL RATIO 4.6 <5.0 (calc) [facility] TOTAL NON-HDL CHOL(LDL+VLDL) 152(H) <130 mg/dL (calc) [facility] Comment: For patients with diabetes plus 1 major ASCVD risk factor, treating to a non-HDL-C goal of <100 mg/dL (LDL-C of <70 mg/dL) is considered a therapeutic option. Test Performed at: [facility] [address] [place] ??[phone] [facility] Blood 11/13/2023 9:24 AM CSR 11/13/2023 3:14 PM CSR Rafael Anton MD CHEMISTRY ORDERABLES Performing Organization Address City/[facility] Phone Number [facility] [phone] [facility] [address] [place] [address] * BASIC METABOLIC PANEL (11/13/2023 9:24 AM CSR) GLUCOSE 92 65 - 99 mg/dL [facility] Comment: ? Fasting reference interval BUN 11 7 - 25 mg/dL [facility] CREATININE 1.09 0.70 - 1.30 mg/dL [facility] GFR 80 > OR = 60 mL/min/1. 73m2 [facility] BUN/CREAT RATIO SEE NOTE: (calc) [facility] Comment: ?? Not Reported: BUN and Creatinine are within ?? reference range. ? SODIUM 137 135 - 146 mmol/L [facility] POTASSIUM 4.9 3.5 - 5.3 mmol/L [facility] CHLORIDE 103 98 - 110 mmol/L [facility] CO2 23 20 - 32 mmol/L [facility] CALCIUM 9.3 8.6 - 10.3 mg/dL [facility] Comment: Test Performed at: [facility] [address] [place] ??[phone] [facility] Vo Blood 11/13/2023 9:24 AM CSR 11/13/2023 3:14 PM CSR Rafael Anton MD CHEMISTRY ORDERABLES Performing Organization Address City/[facility] Code Phone Number [facility] [phone] [facility] [address] [place] [address] documented in this encounter Visit Diagnoses Diagnosis Palpitations- Primary Benign hypertension Essential hypertension, benign Mixed hyperlipidemia PAC (premature atrial contraction) Supraventricular premature beats PVC (premature ventricular contraction) Other premature beats documented in this encounter Care Teams House Piping Inspector Relationship Specialty Start Date End Date La Kearney MD [address] [facility] [address] LUCAS [address] [place] [address] [address] PCP - General Family Practice 08/13/23 documented as of this encounter
--- OUTSIDE RECORDS SUMMARY | 2024-09-17 14:00 | XMS_ITS | Encounter Summary ---
Author Organization [facility] Healthcare Address [address] [place] [address] Care Team Providers Care Airline Counter Agent Name Role Phone Mariaelena Zaidi MD Unavailable La Kearney MD Primary Care Provide r Reason for Referral * MRI/CAT/PET Scan (Routine) - Closed Specialty Diagnoses / Procedures Referred By Zaida camacho Referred To Contact Radiology Diagnoses Acute pain of right shoulder Weakness of right arm Procedures MRI Shoulder Right WO Contrast Shannan Galvan NP [address] [facility] [address] LUCAS [address] [place] [address] Phone: tel: fax: [address] [address] Referral ID Status Reason Start Date Expiration Date Visits Re quested Visits Authorized [id number] Closed 08/20/2024 09/19/2025 1 1 [employer]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 Reason for Visit * MRI/CAT/PET Scan (Routine) - Closed Specialty Diagnoses / Procedures Referred By Zaida camacho Referred To Contact Radiology Diagnoses Acute pain of right shoulder Weakness of right arm Procedures MRI Shoulder Right WO Contrast Shannan Galvan NP [address] [facility] [address] [place] [address] [place] [address] Phone: tel: fax: [address] [phone] Referral ID Status Reason Start Date Expiration Date Visits Re quested Visits Authorized [id number] Closed 08/20/2024 09/19/2025 1 1 Encounter Details Date Type Department Care Team (Latest Contact Info) Description 09/07/2024 6:36 AM INTERSTATE BUS DRIVER - 09/07/2024 11:59 PM INTERSTATE BUS DRIVER Hospital Encounter [address] [address] Acute pain of right shoulder; Weakness of [...] on file Legal Sex Male 8:02 AM INTERSTATE BUS DRIVER Gender Identity Not on file Sexual [...] Read Routine (OP Routine) 09/07/2024 7:17 AM INTERSTATE BUS DRIVER Acute pain of right shoulder Weakness of right arm documented in this encounter Results * MRI Shoulder Right WO Contrast (09/07/2024 7:17 AM INTERSTATE BUS DRIVER) Anatomical Region Laterality Modality Upper Extremities Right Magnetic Reson ance 09/07/2024 7:20 AM INTERSTATE BUS DRIVER Narrative 09/07/2024 7:26 AM INTERSTATE BUS DRIVER EXAM DESCRIPTION: MRI SHOULDER RIGHT WO CONTRAST [...] AM T: ??09/07/2024 7:26 AM Report ID: [id number] Reading Location: ??[id number] Procedure Note Michael Xiong MD - 09/07/2024 [...] Michael Xiong M.D. MF: [id number] Report ID: [id number] Reading Location: [place] [address] Shannan Galvan NP IM MRI PROCEDURES Final Result documented in this encounter Visit Diagnoses Diagnosis Acute pain of right shoulder Weakness of right arm Other musculoskeletal symptoms referable to limbs documented in this encounter Care Teams Airline Counter Agent Relationship Specialty Start Date End Date La Kearney MD [address] [place] [address] [address] PCP - General Family Medicine 10/02/22 Mariaelena Zaidi MD Consulting Physician Sleep Medicine 07/12/21 documented as of this encounter
--- OUTSIDE RECORDS SUMMARY | 2024-09-17 14:00 | XMS_ITS | Encounter Summary ---
Author Organization [facility] Healthcare Address [address] [place] [address] Care Team Providers Care Gallery Or Museum Curator Name Role Phone Mariaelena Zaidi MD Unavailable La Kearney MD Primary Care Provide r Encounter Details Date Type Department Care Team (Late st Contact Info) Description 06/03/2024 Telephone [facility] Medical Group Primary Care at [address] [place] [address] La Kearney MD [address] [place] [address] [address] [place] [address] Social History Tobacco Use Types [...] on file Legal Sex Male 8:02 AM [facility] Gender Identity Not on file Sexual Orientation Not on file documented as of this encounter Miscellaneous Notes * Telephone Encounter - Tameka High - 06/03/2024 1:13 PM CDT Referral has been updated and faxed to APT. * Telephone Encounter - Denia Santos LPN - 06/03/2024 12:59 PM CDT Patient said [facility] in [place] is not a great fit, can patient go to [facility] instead * Telephone Encounter - Denia Santos LPN - 06/03/2024 12:58 PM CDT ----- Message from Eli House sent at 06/01/2024 3:43 PM CDT ----- MyChart message sent, please just check if message was read. ----- Message ----- From: La Kearney MD Sent: 05/26/2024 8:12 AM CDT To: [facility] Im/Fm Pcp [facility] Clinical Inform patient that the xray of the lower back showed mild degenerative changes and normal right shoulder with some signs of an old injury. Nothing new. The plan remains the same documented in this encounter Plan of Treatment Not on file documented as of this encounter Visit Diagnoses Not on filedocumented in this encounter Care Teams Gallery Or Museum Curator Relationship Specialty Start Date End Date La Kearney MD [address] [place] [address] [place] [address] PCP - General Family Medicine 10/02/22 Mariaelena Zaidi MD Consulting Physician Sleep Medicine 07/12/21 documented as of this encounter
--- OUTSIDE RECORDS SUMMARY | 2024-09-17 14:00 | XMS_ITS | Encounter Summary ---
Author Organization [employer] Address [address] [place] [address] Care Team Providers Care Commercial Loan Specialist Name Role Phone La Kearney MD Primary Care Provide r Reason for Referral * Nuclear Medicine (Routine) - Authorized Specialty Diagnoses / Procedures Referred By Contac t Referred To Contact Radiology Diagnoses Chest pain, unspecified type Procedures NM MYOCARD PERF IMAG SPECT Rafael Clarke MD [address] [facility] [address] [place] [address] [facility] Nuclear Cardiology [address] [place] [address] Referral ID Status Reason Start Date Expiration Date V isits Requested Visits Authorized [id number] Authorized 05/20/2024 06/20/2025 1 1 * Nuclear Medicine (Routine) - Authorized Specialty Diagnoses / Procedures Referred By Contac t Referred To Contact Radiology Diagnoses Chest pain, unspecified type Procedures STRESS TEST EXERCISE NUCLEAR MED NJ CV STRS TST XERS&/OR RX CONT ECG W/O I&R NJ CV STRS TST XERS&/OR RX CONT ECG I&R ONLY Rafael Anton MD [address] [facility] [address] [place] [address] [facility] Cardiology [facility] [address] [facility] [place] [address] Referral ID Status Reason Start Date Expiration Date V isits Requested Visits Authorized [id number] Authorized 05/20/2024 06/20/2025 1 1 Reason for Visit * Reason Comments Follow Up PACs, PVCs, palpitat ions Encounter Details Date Type Department Care Team (Late st Contact Info) Description 05/20/2024 9:00 AM CDT Office Visit [facility] Heart and Vascular At [facility] [address] [place] [address] Rafael Anton MD [facility] [address] [place] [address] Chest pain, unspecified type (Primary Dx); Benign hypertension; Mixed hyperlipidemia; PVC (premature ventricular contraction) Social History Tobacco [...] Sign Reading Time Taken Comments Blood Pressure 124/78 05/20/2024 8:10 AM CDT Pulse 67 05/20/2024 8:10 AM CDT Temperature - - Respiratory Rate - - Oxygen Saturation 96% 05/20/2024 8:10 AM CDT Inhaled Oxygen Concentration - - Weight 127.9 kg (282 lb) 05/20/2024 8:10 AM CDT Height 188 cm (6' 2 ) 05/20/2024 8:10 AM CDT Body Mass Index 36.21 05/20/2024 8:10 AM CDT documented in this encounter Progress Notes * Rafael Anton MD - 05/20/2024 8:31 AM CDT CARDIOLOGY [facility] History of Present Illness: Jaden De La Torre is a 53 y.o. year old male with PACs, PVCs, palpitations who presents for follow up. ER visit on 07/28/2023 for palpitations. Found to have frequent PACs, started on lopressor PRN Caffeine - drinks 2+ sodas, several cups of coffee. Alcohol - drinks 5-6 beers in a sitting occasionally. Has TAJ, uses CPAP but has not re- titrated machine in several years now. Works for [employer] in [place] We saw him to establish care August 2023. Obtained MCOT PACs/PVCs with no other arrhthymias. He was last seen November 2023 Due to ongoing symptoms related to PACs and PVCs he was switched from metoprolol to verapamil. This has helped dramatically with palpitation symptoms. He is also done well with cutting out at caffeine and excess alcohol intake. Blood pressure well-controlled today He does describe some left-sided chest discomfort which is nonexertional, occurs a few times monthly. Otherwise denies shortness of breath, syncope, near syncope, lower extremity edema, orthopnea, paroxysmal nocturnal dyspnea. Current Outpatient Medications Medication Instructions buPROPion HCL (WELLBUTRIN XL) 300 mg, Oral lisinopriL (PRINIVIL) 5 mg, Oral, DAILY AT BEDTIME pramipexole (MIRAPEX) 1.5 mg, Oral, DAILY AT BEDTIME pravastatin (PRAVACHOL) 40 mg, Oral, DAILY verapamiL (CALAN SR) 120 mg, Oral, DAILY No Known Allergies No family history on file. Social History Tobacco Use Smoking status: Never Smokeless tobacco: Never Review of systems: As per HPI. All other systems are reviewed and negative for significant findings. PHYSICAL EXAM Blood pressure 124/78, pulse 67, height 6' 2 (1.88 m), weight 127.9 kg (282 lb), SpO2 96%. Body mass index is 36.21 kg/m??. General: No acute distress, oriented, looks [...] 3. No focal deficits noted. Diagnostic Data: Lab Results Component Value Date/Time NA 137 11/13/2023 09:24 AM K 4.9 11/13/2023 09:24 AM CL 103 11/13/2023 09:24 AM CO2 23 11/13/2023 09:24 AM CA 9.3 11/13/2023 09:24 AM BUN 11 11/13/2023 09:24 AM CREAT 1.09 11/13/2023 09:24 AM GLUCOSE 92 11/13/2023 09:24 AM BCRATIO SEE NOTE: 11/13/2023 09:24 AM Lab Results Component Value Date/Time WBC 4.3 11/13/2023 09:24 AM HGB 14.4 11/13/2023 09:24 AM HCT 43.6 11/13/2023 09:24 AM PLT 219 11/13/2023 09:24 AM MCV 94.8 11/13/2023 09:24 AM Lab Results Component Value Date/Time CHOLTOT 194 11/13/2023 09:24 AM HDL 42 11/13/2023 09:24 AM LDLCALC 122 (H) 11/13/2023 09:24 AM TRIGLYCERIDE 183 (H) 11/13/2023 09:24 AM No results found for: HGBA1C , [id number] The 10-year ASCVD risk score (Ramy DK, et al., 2019) is: 7% Values used to calculate the score: Age: 53 years Sex: Male Is Non- : No Diabetic: No Tobacco smoker: No Systolic Blood Pressure: 124 mmHg Is BP treated: Yes HDL Cholesterol: 42 mg/dL Total Cholesterol: 194 mg/dL TTE November 2023: SUMMARY: - Left ventricle: The cavity size was normal. Wall thickness was increased in a pattern of mild LVH. Global systolic function is normal. The estimated ejection fraction is 65-70%. For Epic reporting: the left ventricular ejection fraction is 69% . Left ventricular diastolic function parameters are normal. - Left atrium: The atrium is normal in size. - Right ventricle: The cavity size is normal. Systolic function is normal. - Pulmonary arteries: Systolic pressure was within the normal range. Stress echo 08/25/2018: Conclusions: Adequate stress test in regards to [...] ASSESSMENT PACs PVCs Essential hypertension Dyslipidemia Palpitations Atypical chest pain PLAN Continue verapamil for PACs/PVCs Discussed risk factor modification in detail Encouraged cutting down on caffeine, alcohol intake Regular exercise, weight loss NM stress test for chest pain Continue lisinopril 5 for blood pressure Follow up in 6 months Continue pravastatin for dyslipidemia - reviewed last lipids I appreciate the opportunity in participating in Jaden De La Torre's care. Will plan to follow-up with him in [place] in about 6 months (around 11/17/2024). or sooner if he develops any new or worsening symptoms. Rafael Anton MD [facility] Heart and Vascular Cardiology Clinic Voice recognition software was used to complete this document, therefore, highway traffic control technician variances may occur. * Shane King - 05/20/2024 8:10 AM CDT 6 mo f/u on PACs, PVCs, palpitations. Intermittent SOB with exertion. Swelling lower legs, notices after working. documented in this encounter Miscellaneous Notes * Patient Instructions - Rafael Anton MD - 05/20/2024 8:44 AM CDT Stress test Continue current meds Overall, I think your heart is in excellent shape. We will do a stress test to be proactive about screening for any problems. documented in this encounter Plan of Treatment Upcoming Encounters Date Type Department Care Team (Late st Contact Info) Description 09/21/2024 9:00 AM MANAGER INPATIENT Appointment [facility] Nuclear Medicine [address] [place] [address] Rafael Anton MD [address] [facility] [address] [place] [address] 09/21/2024 10:00 AM MANAGER INPATIENT Appointment [facility] Nuclear Medicine [address] [place] [address] Rafael Anton MD [address] [facility] [address] [place] [address] 11/18/2024 8:15 AM CDT Office Visit [facility] Heart and Vascular At [facility] [address] [facility] [address] [place] [address] Rafael Anton MD [address] [facility] [address] [place] [address] Scheduled Orders Name Type Priority Associated Diagnoses Orde r Schedule STRESS TEST EXERCISE NUCLEAR MED Electrophysiology Routine Chest pain, unspecified type 1 Occurrences starting 05/20/2024 until 05/20/2025 NM MYOCARD PERF IMAG SPECT MULT Electrophysiology Routine Chest pain, unspecified type 1 Occurrences starting 05/20/2024 until 05/20/2025 documented as of this encounter Visit Diagnoses Diagnosis Chest pain, unspecified type- Primary Benign hypertension Essential hypertension, benign Mixed hyperlipidemia PVC (premature ventricular contraction) Other premature beats documented in this encounter Care Teams Commercial Loan Specialist Relationship Specialty Start Date End Date La Kearney MD [address] [place] [phone] PCP - General Family Practice 08/13/23 documented as of this encounter
--- OUTSIDE RECORDS SUMMARY | 2024-09-17 14:00 | XMS_ITS | Encounter Summary ---
Author Organization [facility] Address [address] [place] [address] Care Team Providers Care Optoelectronics Engineer Name Role Phone La Kearney MD Primary Care Provide r Encounter Details Date Type Department Care Team (Latest Contact Info) Description 11/13/2023 9:07 AM VA UNDERWRITER - 11/13/2023 11:59 PM VA UNDERWRITER Hospital Encounter [facility] Laboratory Services [address] [facility] [place] [address] Rafael Anton MD [address] [place] [address] Discharge Disposition: Home or Self Care Social [...] st Contact Info) Description 09/21/2024 9:00 AM VA UNDERWRITER Appointment [facility] Nuclear Medicine [address] [place] [address] Rafael Anton MD [address] [facility] [address] [place] [address] 09/21/2024 10:00 AM VA UNDERWRITER Appointment [facility] Nuclear Medicine [address] [place] [address] Rafael Anton MD [address] [facility] [address] [place] [address] 11/18/2024 8:15 AM CDT Office Visit [facility] Heart and Vascular At [facility] [address] [facility] [address] [place] [address] Rafael Anton MD [address] [facility] [address] [place] [address] documented as of this encounter Procedures Procedure Name Priority Date/Time Associated Diagnosis Comments REFERENCE LAB PROCESSING FEE Routine 11/13/2023 9:24 AM VA UNDERWRITER Palpitation documented in this encounter Results * REFERENCE LAB PROCESSING FEE (11/13/2023 9:24 AM VA UNDERWRITER) REFERENCE LAB SENDOUT Sent to Ref Lab 11/13/2023 11:00 AM VA UNDERWRITER [facility] Other, specify BLOOD SPECIMEN / Unknown Collection / Unknown 11/13/2023 9:24 AM VA UNDERWRITER 11/13/2023 9:32 AM VA UNDERWRITER Rafael Anton MD CHEMISTRY ORDERABLES [facility]# [id number] [address] [place] [address] documented in this encounter Visit Diagnoses Diagnosis Palpitation- Primary Palpitations documented in this encounter Care Teams Optoelectronics Engineer Relationship Specialty Start Date End Date La Kearney MD [address] [place] [address] [address] [place] [phone] PCP - General Family Practice 08/13/23 documented as of this encounter
--- OUTSIDE RECORDS SUMMARY | 2024-09-17 14:00 | XMS_ITS | Encounter Summary ---
Author Organization [facility] Address [address] [place] [address] Care Team Providers Care Traffic Controller Cable Name Role Phone La Kearney MD Primary Care Provide r Reason for Visit * Echocardiography (Routine) - Closed Specialty Diagnoses / Procedures Referred By Zaida t Referred To Contact Diagnoses Palpitations Procedures ECHOCARDIOGRAM W/ CONTRAST AGENT ECHO COMPLETE Rafael Anton MD [address] [facility] [address] [place] [address] [facility] Dia Cardio [id number] [place] [address] Referral ID Status Reason Start Date Expiration Date Visits Re quested Visits Authorized [id number] Closed 11/13/2023 12/13/2024 1 1 Encounter Details Date Type Department Care Team (Latest Contact Info) Description 11/22/2023 10:21 AM CDT - 11/22/2023 11:59 PM T Hospital Encounter [facility] Diagnostic Cardiology Services [id number] [place] [address] Rafael Anton MD [address] [facility] [address] [place] [address] Discharge Disposition: Home or Self [...] were not included. ST DCS Definity Protocol [facility] Approved by: [facility] - Medical Executive Committee Approval Date: 02/21/2023 [...] of DEFINITY?? on ECMO patients. The ECMO straddle bug operator must bepresent when the DEFINITY ?? is administered and while images are being obtained. The ECMO operatorcan be reached at [phone] ([phone] in [place]) If patient meets/states ???yes to any exclusion criteria, STOP THE PROCEDURE, and annotate exam accordingly Patient meets at least one of these inclusion criteria Credentialed provider request Patient is technically difficult to image ([place] Society of Echocardiography guidelines recommend use when [...] ordered by a credentialed provider, RN or ruby engineer Educate patient or responsible democrat on DEFINITY?? indications and potential side effects and review procedure goals with the patient and/or caregiver Verify patient does not have any allergy or contraindications to receive DEFINITY?? or octaflouropropane and confirm Allergies by ???Marking as Reviewed?? in patient's chart Verify peripheral or central line IV access. If IV access is not available, then a trained ruby engineer director plans may place peripheral IV access, as appropriate, [...] below for further information) RN or trained ruby engineer may discontinue peripheral IV access when IV [...] st Contact Info) Description 09/21/2024 9:00 AM WEB CONTENT SPECIALIST Appointment [facility] Nuclear Medicine [address] [place] [address] Rafael Anton MD [address] [facility] [address] [place] [address] 09/21/2024 10:00 AM WEB CONTENT SPECIALIST Appointment [facility] Nuclear Medicine [address] [place] [address] Rafael Anton MD [address] [facility] [address] [place] [address] 11/18/2024 8:15 AM CDT Office Visit [facility] [address] [facility] [address] [place] [address] Rafael Anton MD [address] [facility] [address] [place] [address] documented as of this encounter Procedures Procedure Name Priority Date/Time Associated Diagnosis Comments ECHOCARDIOGRAM W/ CONTRAST AGENT Routine 11/22/2023 11:49 AM CDT Palpitations documented in this encounter Results * ECHOCARDIOGRAM W/ CONTRAST AGENT (11/22/2023 11:49 AM CDT) EJECTION FRACTION 69 INTERFACE SYSTEM 11/22/2023 11:1 5 AM CDT Narrative INTERFACE SYSTEM - 11/22/2023 4:13 PM CDT [address] [address] [email or web address] Transthoracic Echocardiogram Patient: ? Jaden De La Torre MRN: ? [id number] Study ID: ?[id number] Gender: ?M : ? 1970 Age: ? 53 Race: ?CAU Height ? 188cm Study Date: ?11/22/2023 Weight: ?122.5kg Access. #: ? [id number] Account #: ? [id number] BP: *Referring Physician:* Rafael Anton Phillip *Ordering Physician:* ??Rafael Anton air conditioning mechanic industrial: Nurse: Indications: Palpitations. STUDY CONCLUSIONS: SUMMARY: - [...] 9.2 ?? cm/sec ?? >=7.0 E/e', med ana maria, TDI ?8 ?--------- E', avg, TDI [...] ?Prepared and Electronically Authenticated Lilian Berumen MD [id number] Procedure Note Lilian Berumen MD - 11/22/[address] [address] [email or web address] Transthoracic Echocardiogram Patient: Jaden De La Torre Study ID: [id number] Gender: M : 1970 Age: 53 Race: DES Height 188cm Study Date: 11/22/2023 Weight: 122.5kg Access. #: [id number] BP: *Referring Physician:Rafael Martinez Phillip *Ordering Physician:Rafael Martinez air conditioning mechanic industrial: Nurse: Indications: Palpitations. STUDY CONCLUSIONS: SUMMARY: - [...] AM. Prepared andElectronically Authenticated Lilian Berumen MD [id number] Rafael Anton MD ORDERABLES INTERFACE SYSTEM Refer [...] mL documented in this encounter Care Teams Traffic Controller Cable Relationship Specialty Start Date End Date La Kearney MD [address] [facility] [facility] [address] [address] [place] [phone] PCP - General Family Practice 08/13/23 documented as of this encounter
--- OUTSIDE RECORDS SUMMARY | 2024-09-17 14:00 | XMS_ITS | Encounter Summary ---
Author Organization [facility] Healthcare Address [address] [place] [address] Care Team Providers Care Sales Correspondence Clerk Name Role Phone Mariaelena Zaidi MD Unavailable La Kearney MD Primary Care Provide r Reason for Referral * Consultation (Routine) - Closed Specialty Diagnoses / Procedures Referred By Conttom t Referred To Contact Physical Therapy Diagnoses Chronic midline thoracic back pain La Kearney MD [address] [place] [address] [address] [place] [address] Phone: tel: fax: External Order Referral ID Status Reason Start Date Expiration Date V isits Requested Visits Authorized [id number] Closed Evaluate and Treat 06/03/2024 07/03/2025 24 24 Question Answer PTRFR PT Evaluate and Treat Therapy options discussed with patient? Yes Location provided for therapy services is: Patient requested/Patient preferred Please select the performing region: External Order [171] # of visits: 24 Comments APT (P) [phone] Encounter Details Date Type Department Care Team (Late st Contact Info) Description 06/03/2024 Orders Only [facility] Medical [facility] Primary Care at [address] [place] [address] La Kearney MD [address] [place] [address] [address] [place] [address] Chronic midline thoracic back pain (Primary Dx) [...] on file Legal Sex Male 8:02 AM COMPUTER SYSTEMS INFORMATION DIRECTOR Gender Identity Not on file Sexual [...] Primary documented in this encounter Care Teams Sales Correspondence Clerk Relationship Specialty Start Date End Date La Kearney MD [address] [place] [address] PCP - General Family Medicine 10/02/22 Mariaelena Zaidi MD Consulting Physician Sleep Medicine 07/12/21 documented as of this encounter
--- OUTSIDE RECORDS SUMMARY | 2024-09-17 14:00 | XMS_ITS | Encounter Summary ---
Author Organization [facility] Address [address] [place] [address] Care Team Providers Care Matrix Drier Tender Name Role Phone La Kearney MD Primary [...] st Contact Info) Description 09/21/2024 9:00 AM INVOICE CODER Appointment [facility] Nuclear Medicine [address] [place] [address] Rafael Anton MD [address] [facility] [address] [place] [address] 09/21/2024 10:00 AM INVOICE CODER Appointment [facility] Nuclear Medicine [address] [place] [address] Rafael Anton MD [address] [place] [address] 11/18/2024 8:15 AM CDT Office Visit [facility] Heart and Vascular At [facility] [address] [facility] [address] [place] [address] Rafael Anton MD [address] [place] [address] documented as of this encounter Visit Diagnoses Not on filedocumented in this encounter Care Teams Matrix Drier Tender Relationship Specialty Start Date End Date La Kearney MD [address] [place] [address] [place] [phone] PCP - General Family Practice 08/13/23 documented as of this encounter
--- OUTSIDE RECORDS SUMMARY | 2024-09-17 14:00 | XMS_ITS | Encounter Summary ---
Author Organization [facility] Address [address] [place] [address] Care Team Providers Care Guide Domestic Tour Name Role Phone La Kearney MD Primary Care Provide r Reason for Visit * Reason Onset Date Comments Results 09/13/2023 Encounter Details Date Type Department Care Team (Late st Contact Info) Description 09/13/2023 Telephone [facility] Heart and Vascular At [facility] [address] [facility] [address] [place] [address] Rafael Anton MD [facility] [address] [facility] [address] [facility] [address] [place] [address] Results Social History Tobacco Use Types Packs/Day Years Used Date Smoking Tobacco: Never Smokeless Tobacco: Never Sex and Gender Information Value Date Recorded Sex Assigned at Not on file Gender Identity Not on file Sexual Orientation Not on file documented as of this encounter Miscellaneous Notes * Telephone Encounter - Vira Clark RN - 09/16/2023 10:49 AM FOOD AND BEVERAGE ASSISTANT MANAGER PC to pt, results reviewed. Pt to follow up in November, Pt verbalized understanding. AND BEVERAGE ASSISTANT MANAGER * Telephone Encounter - Cortney Yan - 09/13/2023 4:25 PM CST Patient states he has not heard anything about his holter monitor results from mid August. Pleasecall patient at [phone]. Thank you. AND BEVERAGE ASSISTANT MANAGER documented in this encounter Plan of Treatment Upcoming Encounters Date Type Department Care Team (Late st Contact Info) Description 09/21/2024 9:00 AM FOOD AND BEVERAGE ASSISTANT MANAGER Appointment [facility] Nuclear Medicine [address] [place] [address] Rafael Anton MD [address] [facility] [address] [place] [address] 09/21/2024 10:00 AM FOOD AND BEVERAGE ASSISTANT MANAGER Appointment [facility] Nuclear Medicine [address] [place] [address] Rafael Anton MD [address] [facility] [address] [place] [address] 11/18/2024 8:15 AM CDT Office Visit [facility] Heart and Vascular At [facility] [address] [facility] [address] [place] [address] Rafael Anton MD [address] [facility] [address] [place] [address] documented as of this encounter Visit Diagnoses Not on filedocumented in this encounter Care Teams Guide Domestic Tour Relationship Specialty Start Date End Date La Kearney MD [address] [facility] [address] [place] [phone] PCP - General Family Practice 08/13/23 documented as of this encounter
--- OUTSIDE RECORDS SUMMARY | 2024-09-17 14:00 | XMS_ITS | Encounter Summary ---
Author Organization [facility] Healthcare Address [address] [place] [address] Care Team Providers Care Patient Registration Manager Name Role Phone Mariaelena Zaidi MD Unavailable La Kearney MD Primary Care Provide r Reason for Visit * Reason Comments Shoulder Pain Encounter Details Date Type Department Care Team (Late st Contact Info) Description 08/19/2024 10:30 AM DEPUTY PROSECUTING ATTORNEY Office Visit [facility] Medical Group Primary Care at [address] [place] [phone] Shannan Galvan, CIGAR HEAD PUNCHER [address] [facility] [address] [place] [address] Chronic midline low back pain [...] on file Legal Sex Male 8:02 AM DEPUTY PROSECUTING ATTORNEY Gender Identity Not on file Sexual Orientation Not on file documented as of this encounter Last Filed Vital Signs Vital Sign Reading Time Taken Comments Blood Pressure 124/68 08/19/2024 10:21 AM DEPUTY PROSECUTING ATTORNEY Pulse 85 08/19/2024 10:21 AM DEPUTY PROSECUTING ATTORNEY Temperature 36.6 ??C (97.9 ??F) 08/19/2024 10:[address] Respiratory Rate - - Oxygen Saturation 96% 08/19/2024 10:21 AM DEPUTY PROSECUTING ATTORNEY Inhaled Oxygen Concentration - - Weight 128.8 kg (284 lb) 08/19/2024 10:21 AM DEPUTY PROSECUTING ATTORNEY Height 188 cm (6' 2 ) 08/19/2024 10:21 AM DEPUTY PROSECUTING ATTORNEY Body Mass Index 36.46 08/19/2024 10:21 AM DEPUTY PROSECUTING ATTORNEY documented in this encounter Progress Notes * Shannan Galvan, CIGAR HEAD PUNCHER - 08/19/2024 10:30 AM CST Images from [...] 05/25/2020 Added automatically from request for surgery [id number] Sleep apnea Urinary retention Past Surgical History: [...] voice dictation and potentially contain grammatical errors. TY PROSECUTING ATTORNEY documented in this encounter Plan of Treatment [...] documented as of this encounter Care Teams Patient Registration Manager Relationship Specialty Start Date End Date La Kearney MD [address] [facility] [address] [place] [id number] PCP - General Family Medicine 10/02/22 Mariaelena Zaidi MD Consulting Physician Sleep Medicine 07/12/21 documented as of this encounter
--- OUTSIDE RECORDS SUMMARY | 2024-09-17 14:00 | XMS_ITS | Encounter Summary ---
Author Organization [facility] Healthcare Address [address] [place] [address] Care Team Providers Care Skein Yarn Dyer Helper Name Role Phone Mariaelena Zaidi MD Unavailable La Kearney MD Primary Care Provide r Reason for Referral * MRI/CAT/PET Scan (Routine) - Closed Specialty Diagnoses / Procedures Referred By Contac t Referred To Contact Radiology Diagnoses Acute pain of right shoulder Weakness of right arm Procedures MRI Shoulder Right WO Contrast Shannan Galvan NP 2 [facility] [address] [place] [address] Phone: tel: fax: [address] [phone] Referral ID Status Reason Start Date Expiration Date Visits Re quested Visits Authorized [id number] Closed 08/20/2024 09/19/2025 1 1 T BUYER Encounter Details Date Type Department Care Team (Late st Contact Info) Description 08/20/2024 Orders Only [facility] Medical Group Primary Care at [address] [place] [phone] Shannan Galvan NP 2 [facility] [address] [place] [address] Acute pain of right shoulder (Primary Dx); [...] on file Legal Sex Male 8:02 AM WHEAT BUYER Gender Identity Not on file Sexual Orientation Not on file documented as of this encounter Plan of Treatment Not on file documented as of this encounter Results * MRI Shoulder Right WO Contrast (09/07/2024 7:17 AM WHEAT BUYER) Anatomical Region Laterality Modality Upper Extremities Right Magnetic Reson ance 09/07/2024 7:20 AM WHEAT BUYER Narrative 09/07/2024 7:26 AM WHEAT BUYER EXAM DESCRIPTION: MRI SHOULDER RIGHT WO CONTRAST [...] AM T: ??09/07/2024 7:26 AM Report ID: [id number] Reading Location: ??[id number] Procedure Note Michael Xiong MD - 09/07/2024 [...] Michael Xiong M.D. MF: [id number] Report ID: [id number] Reading Location: [id number] us Shannan Galvan MIRROR POLISHER IMG MRI PROCEDURES Final Result documented in this encounter Visit Diagnoses Diagnosis Acute pain of right shoulder- Primary Weakness of right arm Other musculoskeletal symptoms referable to limbs Acute pain of right shoulder Weakness of right arm Other musculoskeletal symptoms referable to limbs documented in this encounter Care Teams Skein Yarn Dyer Helper Relationship Specialty Start Date End Date La Kearney MD 2 [facility] [address] [address] PCP - General Family Medicine 10/02/22 Mariaelena Zaidi MD Consulting Physician Sleep Medicine 07/12/21 documented as of this encounter
--- OUTSIDE RECORDS SUMMARY | 2024-09-17 14:00 | XMS_ITS | Encounter Summary ---
Author Organization [facility] Address [address] [place] [address] Care Team Providers Care Materials Planner Name Role Phone La Kearney MD Primary [...] st Contact Info) Description 09/21/2024 9:00 AM AIR TRAFFIC CONTROL MANAGER Appointment [facility] [address] [place] [address] Rafael Anton MD [address] [facility] [address] [place] [address] 09/21/2024 10:00 AM AIR TRAFFIC CONTROL MANAGER Appointment [facility] [address] [place] [address] Rafael Anton MD [address] [facility] [address] [place] [address] 11/18/2024 8:15 AM CDT Office Visit [facility] Heart and Vascular At [facility] [address] [facility] [address] [place] [address] Rafael Anton MD [address] [facility] [address] [place] [address] documented as of this encounter Visit Diagnoses Not on filedocumented in this encounter Care Teams Materials Planner Relationship Specialty Start Date End Date La Kearney MD [address] [place] [address] [place] [phone] PCP - General Family Practice 08/13/23 documented as of this encounter
--- OUTSIDE RECORDS SUMMARY | 2024-09-17 14:00 | XMS_ITS | Encounter Summary ---
Author Organization [facility] Address [address] [place] [address] Care Team Providers Care Body Designer Name Role Phone La Kearney MD Primary [...] st Contact Info) Description 09/21/2024 9:00 AM RAILWAY SWITCH OPERATOR Appointment [facility] Nuclear Medicine [address] [place] [address] Rafael Anton MD [address] [facility] [address] [place] [address] 09/21/2024 10:00 AM RAILWAY SWITCH OPERATOR Appointment [facility] [address] [place] [address] Rafael Anton MD [address] [facility] [address] [place] [address] 11/18/2024 8:15 AM CDT Office Visit [facility] Heart and Vascular At [facility] [address] [facility] [address] [place] [address] Rafael Anton MD [address] [facility] [address] [place] [address] documented as of this encounter Visit Diagnoses Not on filedocumented in this encounter Care Teams Body Designer Relationship Specialty Start Date End Date La Kearney MD [address] [place] [address] [place] [phone] PCP - General Family Practice 08/13/23 documented as of this encounter
--- OUTSIDE RECORDS SUMMARY | 2024-09-17 14:00 | XMS_ITS | Encounter Summary ---
Author Organization [facility] Address [address] [place] [address] Care Team Providers Care Quarter Trimmer Name Role Phone La Kearney MD Primary Care Provide r Reason for Visit * Reason Onset Date Comments Medication Question 09/25/2023 Encounter Details Date Type Department Care Team (Late st Contact Info) Description 09/25/2023 Telephone [facility] At [facility] [address] [facility] [address] [place] [address] Rafael Anton MD [facility] [address] [facility] [address] [place] [address] Medication Question Social History Tobacco [...] needs a refill on Metoprolol sent to [facility], sent at this time. She verbalized understanding. EL BUNG REMOVER AND DUMPER * Telephone Encounter - Millie Camp - 09/25/2023 3:39 PM CST Patients called and needs to verify medications,refills and the pharmacy stating there are issues. Please call Alida at [phone]. Thank you. EL BUNG REMOVER AND DUMPER documented in this encounter Plan of Treatment Upcoming Encounters Date Type Department Care Team (Late st Contact Info) Description 09/21/2024 9:00 AM BARREL BUNG REMOVER AND DUMPER Appointment [facility] Nuclear Medicine [address] [place] [address] Rafael Anton MD [address] [facility] [address] [place] [address] 09/21/2024 10:00 AM BARREL BUNG REMOVER AND DUMPER Appointment [facility] Nuclear Medicine [address] [place] [address] Rafael Anton MD [address] [facility] [address] [place] [address] 11/18/2024 8:15 AM CDT Office Visit [facility] and V[facility] At [facility] [address] [facility] [address] [place] [address] Rafael Anton MD [address] [facility] [address] [place] [address] documented as of this encounter Visit Diagnoses Not on filedocumented in this encounter Care Teams Quarter Trimmer Relationship Specialty Start Date End Date La Kearney MD [address] [facility] [address] [place] [phone] PCP - General Family Practice 08/13/23 documented as of this encounter
--- OUTSIDE RECORDS SUMMARY | 2024-09-17 14:00 | XMS_ITS | Clinical Summary ---
Author Organization [facility] Address [address] [place] [address] Care Team Providers Care Senior Principal Software Engineer Name Role Phone Mariaelena Zaidi MD [...] 10/07/2023 Assessment & Plan (10/07/2023 1:20 PM HOT WIRE GLASS TUBE CUTTER): New concern Not at goal Will get [...] 10/07/2023 Assessment & Plan (10/15/2023 9:14 AM HOT WIRE GLASS TUBE CUTTER): Pathology has been reviewed with the patient. [...] 08/08/2023 Assessment & Plan (08/08/2023 4:00 PM HOT WIRE GLASS TUBE CUTTER): Acute problem- this is a recurring problem Seen in ED for intermittent palpations Follow up with cardiology as scheduled Continue to monitor ECG: Vent Rate: 108 bpm RR Interval: 553 msec ND Interval: 163 msec QRS Duration: 97 msec QT Interval: 383 msec QTC Interval: 446 msec P-R-T Counce: 46 - 2 - 13 degrees IMPRESSION: SINUS TACHYCARDIA WITH FREQUENT SUPRAVENTRICULAR PREMATURE COMPLEXES Compared to prior EKG, heart rate is now faster and PVCs are new. (Electronically Signed By: Dr Anoop Pablo) ECG: Vent Rate: 66 bpm RR Interval: 898 msec ND Interval: 170 msec QRS Duration: 99 msec QT Interval: 399 msec QTC Interval: 413 msec P-R-T Counce: 45 - 14 - 29 degrees IMPRESSION: [...] annual Assessment & Plan (10/02/2022 1:19 PM HOT WIRE GLASS TUBE CUTTER): Med list and problem list reviewed Benign prostatic hyperplasia with weak urinary s tream 06/12/2022 Overview (06/12/2022): Added automatically from request for surgery [id number] Assessment & Plan (05/22/2024 7:06 AM CDT): Stable / clinically quiescent. Will continue to monitor. Managed by urology On flomax cialis and oxybutynin Assessment & Plan (06/06/2023 7:03 AM CDT): Stable / clinically quiescent. Will continue to monitor. Vitamin D deficiency 12/13/2021 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 Assessment & Plan (10/18/2021 4:41 PM HOT WIRE GLASS TUBE CUTTER): Discussed with pt that he will need [...] daily Assessment & Plan (10/18/2021 3:11 PM HOT WIRE GLASS TUBE CUTTER): Patient reiterated no suicidal thoughts at this [...] bedtime Assessment & Plan (07/27/2020 9:25 AM HOT WIRE GLASS TUBE CUTTER): HPI: Condition is new A&P: Discussed/ordered labs, [...] your phone. Examples would be headspace, calm, [id number], Personal Steve. Please work on this every [...] 03/30/2019 Assessment & Plan (10/18/2021 3:14 PM HOT WIRE GLASS TUBE CUTTER): Patient reiterated no suicidal thoughts at this [...] needed. Assessment & Plan (09/30/2019 4:20 PM HOT WIRE GLASS TUBE CUTTER): Pt's says the buproprion 150mg daily is [...] month Assessment & Plan (10/18/2021 3:13 PM HOT WIRE GLASS TUBE CUTTER): HPI: Condition is stable A&P: Discussed/ordered labs, encouraged healthy, low carbohydrate lifestyle and at least 150min/week of exercise, Meloxicam 15 mg daily Assessment & Plan (04/11/2021 4:43 PM CDT): HPI: Condition is stable A&P: Discussed/ordered labs, encouraged healthy, low carbohydrate lifestyle and at least 150min/week of exercise, no meds needed at this time. Laryngopharyngeal reflux (LPR) 10/29/2018 Assessment & Plan (10/18/2021 3:15 PM HOT WIRE GLASS TUBE CUTTER): HPI: Condition is stable no meds at this time, encouraged healthy diet and exercise Avoid trigger foods including: carbonated beverages, caffeine, spicy, fried foods, tomatoes, cucumbers, mint, and acidic fruits/juices like orange/lemon/grapefruit. Avoid eating/drinking anything for at least 2 hours before bed. Sleep with bed propped. 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 deficiency with terminal worker use of PPI with pt, would like [...] cdif and vit B12 deficiency with terminal worker use of PPI with pt, would like to remain on medication at this time Assessment & Plan (09/30/2019 2:17 PM HOT WIRE GLASS TUBE CUTTER): Discussed/ordered labs, Condition is stable, encouraged healthy, low carbohydrate lifestyle and at least 150min/week of exercise, continue on ranitidine 300mg nightly Assessment & Plan (10/29/2018 4:10 PM HOT WIRE GLASS TUBE CUTTER): Start Zantac 300 mg at bedtime Increase caffeine free and soda free fluid daily LPR discussed and Handout provided Hyperlipidemia 07/12/2016 Overview (12/15/2016): Hyperlipidemia Assessment & Plan (05/22/2024 7:04 AM CDT): Stable Continue pravastatin 40mg daily Assessment & Plan (06/06/2023 7:02 AM CDT): Stable Continue pravastatin 40mg daily Assessment & Plan (10/18/2021 3:12 PM HOT WIRE GLASS TUBE CUTTER): HPI: Condition is stable A&P: Discussed/ordered labs, [...] daily Assessment & Plan (09/30/2019 2:17 PM HOT WIRE GLASS TUBE CUTTER): Discussed/ordered labs, Condition is stable, encouraged healthy, low carbohydrate lifestyle and at least 150min/week of exercise, continue on pravastatin 40mg daily Assessment & Plan (10/20/2018 10:22 PM HOT WIRE GLASS TUBE CUTTER): Lipid abnormalities are unchanged. Nutritional counseling was [...] months Assessment & Plan (08/08/2023 3:45 PM HOT WIRE GLASS TUBE CUTTER): Chronic problem-controlled with current regimen Continue metoprolol [...] months Assessment & Plan (10/02/2022 1:11 PM HOT WIRE GLASS TUBE CUTTER): Bp in the office today BP Readings from Last 1 Encounters: 10/02/22 138/76 Continue current regimen Recommend DASH diet, heart-healthy lifestyle, exercise. Discussed the risks of hypertension. F/u in 6 months Assessment & Plan (10/18/2021 3:12 PM HOT WIRE GLASS TUBE CUTTER): HPI: Condition is stable A&P: Discussed/ordered labs, [...] daily Assessment & Plan (09/30/2019 2:16 PM HOT WIRE GLASS TUBE CUTTER): Discussed/ordered labs, Condition is stable, encouraged healthy, low carbohydrate lifestyle and at least 150min/week of exercise, continue on lisinopril 5mg daily, metoprolol 25mg daily and aspirin 81mg Assessment & Plan (10/20/2018 10:46 PM HOT WIRE GLASS TUBE CUTTER): Hypertension is worsening. Uncontrolled Pt. Has not [...] bedtime Assessment & Plan (10/18/2021 4:27 PM HOT WIRE GLASS TUBE CUTTER): HPI: Condition is stable A&P: Discussed/ordered labs, [...] cpap Assessment & Plan (09/30/2019 4:16 PM HOT WIRE GLASS TUBE CUTTER): Discussed/ordered labs, Condition is stable, encouraged healthy, low carbohydrate lifestyle and at least 150min/week of exercise, continue on mirapex 1.5mg three times daily Make sure you are drinking a lot of water Assessment & Plan (10/20/2018 10:40 PM HOT WIRE GLASS TUBE CUTTER): Reports worsening RLS Needs to get updated [...] Insomnia Assessment & Plan (10/18/2021 4:26 PM HOT WIRE GLASS TUBE CUTTER): HPI: Condition is stable A&P: Discussed/ordered labs, [...] med) Assessment & Plan (07/27/2020 9:27 AM HOT WIRE GLASS TUBE CUTTER): HPI: Condition is worsening A&P: Discussed/ordered labs, [...] your phone. Examples would be headspace, calm, [id number], Personal Steve. Please work on this every [...] cpap Assessment & Plan (09/30/2019 4:16 PM HOT WIRE GLASS TUBE CUTTER): Pt states using cpap for 8 hours/night [...] machine Assessment & Plan (10/02/2022 1:20 PM HOT WIRE GLASS TUBE CUTTER): Continue following with sleep medicine They recently increased his pressure Assessment & Plan (10/18/2021 4:26 PM HOT WIRE GLASS TUBE CUTTER): HPI: Condition is stable A&P: Discussed/ordered labs, [...] cpap Assessment & Plan (09/30/2019 4:15 PM HOT WIRE GLASS TUBE CUTTER): Pt states using cpap for 8 hours/night 7 nights/wk Pt states less daytime somnolence, feels better when using it. Would recommend the continued use of cpap Assessment & Plan (10/20/2018 10:24 PM HOT WIRE GLASS TUBE CUTTER): Hx of TAJ Last sleep study about [...] 05/22/2024 Assessment & Plan (08/08/2023 4:06 PM HOT WIRE GLASS TUBE CUTTER): I personally reviewed H&P documentation by ED provider, CXR imaging, and ECG tracings from patient recent visit to [facility]. Medications reviewed and reconciled this visit Rectal pain 05/25/2020 10/18/2021 Overview (05/25/2020): Added automatically from request for surgery [id number] Encounter for screening colonoscopy 05/25/2020 04/11/2021 Overview (05/25/2020): Added automatically from request for surgery [id number] Numbness and tingling of lower extremity 12/09/2019 [...] in your mouth on an olegario like [employer] Lower carb substitutions: Aldi carries a zero [...] in much longer they will become mushy [place] and/or coconut flour instead of regular flour [...] pork rinds For yogurt, try Two Good irish yogurt Use Pinterest for recipe ideas. Type [...] in your mouth on an olegario like [employer] Lower carb substitutions: Aldi carries a zero [...] in much longer they will become mushy [place] and/or coconut flour instead of regular flour [...] pork rinds For yogurt, try [employer] Good irish yogurt Use Pinterest for recipe ideas. Type [...] cup. Assessment & Plan (10/18/2021 3:11 PM HOT WIRE GLASS TUBE CUTTER): HPI: Condition is stable goal BMI <30 A&P: Healthy, high-protein, lower carbohydrate, lower fat lifestyle and exercise for 150min/week recommended Substitutions: Recommend tracking everything you put in your mouth on an olegario like [employer] or [employer]i carries a zero net carb bread If [...] in much longer they will become mushy [place] and/or coconut flour instead of regular flour [...] pork rinds For yogurt, try [employer] Good irish yogurt Use [employer] for recipe ideas. Type in low carb... Assessment & Plan (04/11/2021 4:51 PM CDT): HPI: Condition is not at/near goal goal BMI <30 A&P: Healthy, high-protein, lower carbohydrate, lower fat lifestyle and exercise for 150min/week recommended Calories 2100 Protein 212 Fats 94 Carbs 106 Substitutions: Recommend tracking everything you put in your mouth on an olegario like [employer] or [employer] Aldi carries a zero net carb bread [...] in much longer they will become mushy [place] and/or coconut flour instead of regular flour [...] pork rinds For yogurt, try [employer] Good irish yogurt Use Pinterest for recipe ideas. Type in low carb... Assessment & Plan (07/27/2020 9:24 AM HOT WIRE GLASS TUBE CUTTER): HPI: Condition is stable A&P: Healthy, low [...] in much longer they will become mushy [place] and/or coconut flour instead of regular flour [...] in much longer they will become mushy [place] and/or coconut flour instead of regular flour [...] carb... Assessment & Plan (09/30/2019 4:21 PM HOT WIRE GLASS TUBE CUTTER): Healthy, low carbohydrate lifestyle and exercise for 150min/week recommended Generalized abdominal pain 06/27/2019 0 10/18/2021 Assessment & Plan (04/28/2020 10:06 PM CDT): CT abd/pelvis ordered Assessment & Plan (09/30/2019 4:15 PM HOT WIRE GLASS TUBE CUTTER): He had CT scan last March which showed kidney stones Non-intractable cyclical vom iting without nausea 10/20/2018 04/28/2020 Assessment & Plan (09/30/2019 4:09 PM HOT WIRE GLASS TUBE CUTTER): Having vomiting 1-2 times a day, none [...] propped. Assessment & Plan (10/20/2018 10:29 PM HOT WIRE GLASS TUBE CUTTER): Reports almost daily vomiting in the morning [...] 09/30/2019 Assessment & Plan (10/20/2018 10:52 PM HOT WIRE GLASS TUBE CUTTER): Recent chest pain, palpitations and went to ER 08/24/18 CXR normal Stress exercise Echo-Conclusions: Adequate stress test in regards to heart rate. No exercise induced chest pain. No definite ischemia on stress EKG. No Echocardiographic evidence of ischemia. Encounters Date Type Department Care Team Description 2024 Orders Only [facility] Primary Care at [address] [place] [phone] Shannan Galvan NP Cyst of joint of shoulder (Primary Dx); Tendon tear 2024 Telephone [facility] Primary Care at [address] [place] [phone] La Kearney MD 09/07/2024 6:36 AM HOT WIRE GLASS TUBE CUTTER - 09/07/2024 11:59 PM HOT WIRE GLASS TUBE CUTTER Hospital Encounter [facility] [address] [place] [address] Acute pain of right shoulder; Weakness of right arm Discharge Disposition: Discharge to home or self care 08/20/2024 10:11 AM HOT WIRE GLASS TUBE CUTTER - 08/20/2024 11:59 PM HOT WIRE GLASS TUBE CUTTER Hospital Encounter [facility] [address] [facility] [address] [place] [address] Wilfredo Mccormick MD Myalgia, other site (Primary Dx); Chronic right shoulder pain Discharge Disposition: Discharge to home or self care 08/20/2024 Orders Only [facility] Primary Care at [address] [place] [address] Shannan Galvan NP Acute pain of right shoulder (Primary Dx); Weakness of right arm 08/19/2024 10:30 AM HOT WIRE GLASS TUBE CUTTER Office Visit [facility] Primary Care at [address] [place] [address] Shannan Galvan, ALAN Chronic midline low back pain without sciatica (Primary Dx); Degenerative disc disease, cervical; Acute pain of right shoulder; Weakness of right arm 08/17/2024 Telephone [facility] Primary Care at [address] [place] [address] La Kearney MD Appointment Request from Last [...] Added automatica lly from request for surgery [id number] Hypoglycemia Enlarged prostate Urinary retention Arrhythmia Family [...] on file Legal Sex Male 8:02 AM HOT WIRE GLASS TUBE CUTTER Gender Identity Not on file Sexual Orientation Not on file Obstetrics History Last Filed Vital Signs Vital Sign Reading Time Taken Comments Blood Pressure 140/94 08/20/2024 10:48 AM HOT WIRE GLASS TUBE CUTTER Pulse 96 08/20/2024 10:48 AM HOT WIRE GLASS TUBE CUTTER Temperature 36.6 ??C (97.9 ??F) 08/19/2024 10:[address] Respiratory Rate 18 08/20/2024 10:48 AM HOT WIRE GLASS TUBE CUTTER Oxygen Saturation 96% 08/20/2024 10:48 AM HOT WIRE GLASS TUBE CUTTER Inhaled Oxygen Concentration - - Weight 128.8 kg (284 lb) 08/19/2024 10:21 AM HOT WIRE GLASS TUBE CUTTER Height 188 cm (6' 2 ) 08/19/2024 10:21 AM HOT WIRE GLASS TUBE CUTTER Body Mass Index 36.46 08/19/2024 10:21 AM HOT WIRE GLASS TUBE CUTTER Plan of Treatment Health Maintenance Due Date [...] this topic Medical Devices Implanted Type Area Calender Inspector Device Identifier Shelf Expiration Date Model / Serial / Lot [employer] Contour 6fr 28cm Taper Tip Bladder Oscar Low Profile Large Inner Latex Free 180-224 - [id number] Implanted:Qty: 1 on 04/13/2024 by Lalito Irene MD at [facility] Left: Ureter [employer] 10/16/2026 [id number] / / [id number] Procedures Procedure Name Priority Date/Time Associated Diagnosis Comments MRI SHOULDER RIGHT WO CONTRAST Schedule Routine, Read Routine (OP Routine) 09/07/2024 7:17 AM HOT WIRE GLASS TUBE CUTTER Acute pain of right shoulder Weakness of right arm HEPATITIS C ANTIBODY Routine 06/08/2023 8:33 AM CDT Mixed hyperlipidemia Essential hypertension Need for hepatitis C screening test IGT (impaired glucose tolerance) PSA SCREEN Routine 12/13/2021 9:14 AM CDT Prostate cancer screening COLONOSCOPY 08/26/2020 7:40 AM HOT WIRE GLASS TUBE CUTTER from Last 3 Months or Most Recently Relevant to Health Maintenance Results * MRI Shoulder Right WO Contrast (09/07/2024 7:17 AM HOT WIRE GLASS TUBE CUTTER) Anatomical Region Laterality Modality Upper Extremities Right Magnetic Reson ance 09/07/2024 7:20 AM HOT WIRE GLASS TUBE CUTTER Narrative 09/07/2024 7:26 AM HOT WIRE GLASS TUBE CUTTER EXAM DESCRIPTION: MRI SHOULDER RIGHT WO CONTRAST [...] AM T: ??09/07/2024 7:26 AM Report ID: [id number] Reading Location: ??[id number] Procedure Note Michael Xiong MD - 09/07/2024 [...] Michael Xiong M.D. MF: CHANI Report ID: [id number] Reading Location: [place] [address] Shannan Galvan NP [facility] MRI PROCEDURES Final Result * Hepatitis C [...] last revised on 2019. Testing performed by: [facility], [address] [place] [address]., [id number] Blood 06/08/2023 8:33 AM CDT 06/08/2023 11:10 AM CDT Narrative [facility] ([facility]) - 06/08/2023 11:46 AM CDT fasting us La Kearney MD LAB MICROBIOL OGY - GENERAL ORDERABLES Edited Result - Final [facility] ([facility]) 1 [facility] Department [place] [address] * PSA screen (12/13/2021 9:14 AM CDT) [...] last revised 2018. Testing performed by: [facility], [address] [place] [address], [place]., [address] Blood 12/13/2021 9:14 AM CDT 12/13/2021 2:02 PM CDT us Laura Tapia METAL BUMPER LAB BLOOD ORDERABLES Final Result [facility] SHAHEED 1 [facility] Department [place] [address] * COLONOSCOPY (08/26/2020 7:40 AM HOT WIRE GLASS TUBE CUTTER) Anatomical Region Laterality Modality Other Narrative Procedure Note Antoinette Sawyer MD - 08/26/2020 7:40 AM CST [facility] Patient Name: Jaden De La Torre Procedure Date: 08/26/2020 7:40 AM Date of : 1970 Admit Type: Outpatient Age: 49 Gender: Male Attending MD: Antoinette Sawyer M.D. Room: [facility] ENDOSCOPY ROOM 1 Note Status: Finalized Patient [...] passed under direct vision.The Pediatric Colonoscope [id number] was introduced through the anus and advanced [...] 7:40 AM Procedure Code(s): --- Professional --- 09377, Colonoscopy, flexible; diagnostic, including collection of specimen(s) by brushing or washing, when performed (separateprocedure) Diagnosis Code(s): --- Professional --- Z12.11, Encounter for screening for malignant neoplasm of colon K64.8, Other hemorrhoids CPT copyright 2017 [employer]. All rights reserved. The codes documented in this report are preliminary and upon death surveys coder reviewmay be revised to meet current compliance requirements. Recognized by the [employer] [employer] for promoting quality in endoscopy Antoinette Sawyer MD ENDOSCOPY PROCEDURES Final Result from Last 3 Months or Most Recently Relevant to Health Maintenance Insurance Firm58 OOS Firm58 OOS [facility] CHOICE OOS Advance Directives For more information, please contact: [phone] * Full Code (Latest Code Status on [...] 12:01 PM 02/07/2019 4:36 AM Care Teams Senior Principal Software Engineer Relationship Specialty Start Date End Date La Kearney MD [address] [place] [address] DR LUCAS [address] [place] [id number] PCP - General Family Medicine 10/02/22 Mariaelena Zaidi MD Consulting Physician Sleep Medicine 07/12/21
--- OUTSIDE RECORDS SUMMARY | 2024-09-17 14:00 | XMS_ITS | Encounter Summary ---
Author Organization [facility] Address [address] [place] [address] Care Team Providers Care Branch Retail Executive Name Role Phone La Kearney MD Primary [...] st Contact Info) Description 09/21/2024 9:00 AM DYE WORKER Appointment [facility] Nuclear Medicine [address] [place] [address] Rafael Anton MD [address] [facility] [address] [place] [address] 09/21/2024 10:00 AM DYE WORKER Appointment [facility] Nuclear Medicine [address] [place] [address] Rafael Anton MD [address] [place] [address] 11/18/2024 8:15 AM CDT Office Visit [facility] Heart [facility] V[facility] At [facility] [address] [facility] [address] [place] [address] Rafael Anton MD [address] [place] [address] documented as of this encounter Visit Diagnoses Not on filedocumented in this encounter Care Teams Branch Retail Executive Relationship Specialty Start Date End Date La Kearney MD [address] [place] [address] [place] [phone] PCP - General Family Practice 08/13/23 documented as of this encounter
--- OUTSIDE RECORDS SUMMARY | 2024-09-17 14:00 | XMS_ITS | Clinical Summary ---
Author Organization [facility] Address [address] [facility] [place] [address] Phone Care Team Providers Care Concrete Batcher Name Role Phone La Kearney MD Primary Care Provide r Allergies No known active allergies Medications Medication Sig Dispensed Refills Start Date End Date Status buPROPion HCL (WELLBUTRIN XL) 300 mg Extended Release 24 hour tablet Take 300 mg by mouth. 06/10/2023 Active lisinopriL (PRINIVIL) 5 mg tablet Take 1 Tablet (5 mg) by mouth daily at bedtime. 90 Tablet 3 05/20/2024 Active pramipexole (MIRAPEX) 1.5 mg Tablet Take 1 Tablet (1.5 mg) by mouth daily at bedtime. 90 Tablet 3 05/20/2024 Active pravastatin (PRAVACHOL) 40 mg tablet Take 1 Tablet (40 mg) by mouth daily. 90 Tablet 3 05/20/2024 Active verapamiL (CALAN SR) 120 mg Sustained Release tablet Take 1 Tablet (120 mg) by mouth daily. 90 Tablet 3 05/20/2024 Active Active Problems No known active problems Social History Tobacco Use Types Packs/Day Years [...] Mass Index 36.21 05/20/2024 8:10 AM CDT Plan of Treatment Upcoming Encounters Date Type Department Care Team (Late st Contact Info) Description 09/21/2024 9:00 AM CREDIT VERIFIER Appointment [facility] Nuclear Medicine [address] [place] [address] Rafael Anton MD [address] [facility] [address] [place] [address] 09/21/2024 10:00 AM CREDIT VERIFIER Appointment [facility] Nuclear Medicine [address] [place] [address] Rafael Anton MD [address] [facility] [address] [place] [address] 11/18/2024 8:15 AM CDT Office Visit [facility] Heart and Vascular At [facility] [address] [facility] [place] [address] Rafael Anton MD [address] [facility] [address] [place] [address] Health Maintenance Due Date Last Done Comments Pre-Diabetes and Diabetes Screening 1970 HEPATITIS B VACCINES (1 of 3 - 19+ 3-dose series) 1987 FIT-DNA Q 3 years 2013 FIT/FOBT Q 1 year 2013 Flex Sig/CT Colonography Q 5 years 2013 INFLUENZA VACCINE (#1) 2024 DTAP/TDAP/TD VACCINES (3 - T d or Tdap) 09/30/2029 09/30/2019, 07/26/2017 COLORECTAL SCREENING 08/26/2030 08/26/2020, 08/26/2020 Colorectal Cancer Screening 08/26/2030 ZOSTER VACCINE Completed 10/27/2019, 08/19/2019 PNEUMOCOCCAL VACCINE 0-64 YEARS Aged Out No longer eligible b ased on patient's age to complete this topic Care Teams Concrete Batcher Relationship Specialty Start Date End Date La Kearney MD [address] [place] [address] [address] PCP - General Family Practice 08/13/23
--- OUTSIDE RECORDS SUMMARY | 2024-09-17 14:00 | XMS_ITS | CONTINUITY OF CARE DOCUMENT ---
Author Name tim dumont Address Unknown Organization [facility] Address [address] [place] [address] [address] [place] [address] Phone [phone] Care Team Providers Care Multimedia Editor Name Role Phone tim dumont Unavailable Unavailable
--- OUTSIDE RECORDS SUMMARY | 2024-09-17 14:00 | XMS_ITS | Encounter Summary ---
Author Organization [facility] Address [address] [place] [address] Care Team Providers Care Substitute Teacher Name Role Phone La Kearney MD Primary Care Provide r Encounter Details Date Type Department Care Team (Late st Contact Info) Description 02/25/2024 External Device Data STL ABSTRACTION Provider, Abstract [...] st Contact Info) Description 09/21/2024 9:00 AM COMMUNICATIONS EQUIPMENT SUPERVISOR Appointment [facility] [address] [place] [address] Rafeal Anton MD [address] [facility] [address] [place] [address] 09/21/2024 10:00 AM COMMUNICATIONS EQUIPMENT SUPERVISOR Appointment [facility] [address] [place] [address] Rafael Anton MD [address] [place] [address] 11/18/2024 8:15 AM CDT Office Visit [facility] [address] [facility] [address] [place] [address] Rafael Anton MD [address] [place] [address] documented as of this encounter Visit Diagnoses Not on filedocumented in this encounter Care Teams Substitute Teacher Relationship Specialty Start Date End Date La Kearney MD [address] [place] [address] [place] [phone] PCP - General Family Practice 08/13/23 documented as of this encounter
--- OUTSIDE RECORDS SUMMARY | 2024-09-17 14:01 | XMS_ITS | Encounter Summary ---
Author Organization [facility] Healthcare Address [address] [place] [address] Care Team Providers Care Automotive Leasing Sales Representative Name Role Phone Mariaelena Zaidi MD Unavailable La Kearney MD Primary Care Provide r Reason for Visit * Reason Comments Flank Pain Encounter Details Date Type Department Care Team (Late st Contact Info) Description 04/12/2024 4:50 AM CDT - 04/12/2024 8:37 AM CDT Emergency [facility] Emergency Department [address] [place] [address] Sukhwinder Sanchez MD [address] [place] [address] DR LICONA [address] [place] [address] Go Lai MD [address] [place] [address] [place] [address] Left ureteral stone (Primary Dx) Discharge Disposition: [...] file 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 Follow up with Urology [phone]. * Attachments The following attachments cannot be sent through Care Everywhere. * Kidney Stone w/ Colic (Belizean) documented in this encounter Medications at Time [...] 05/25/2020 Added automatically from request for surgery [id number] Sleep apnea Urinary retention Past Surgical History: [...] 11-20(A) 0 - 2 /HPF [facility] Bacteria, ur Trace(A) [facility] Culture Reflex Comment Reflex conditions for urine culture (WBC >10) not met. [facility] Urine 04/12/2024 6:53 AM CDT 04/12/2024 6:56 AM CDT Sukhwinder Sanchez MD LAB URINE ORDERABLES Final Res ult [facility] 1 [facility] Department [place] [address] * (ABNORMAL) Urinalysis reflex to microscopic and culture Urine (04/12/2024 6:53 AM CDT) Color, ur Yellow Yellow Clarity, ur Clear Clear [facility] Specific gravity, ur 1.011 1.003 - 1.030 [facility] pH, urine 5.0 [facility] Comment: Interpretive Data ? Urine pH is affected by diet, medications, systemic acid-base disturbances, and renal tubular function. ??pH may affect urinary stone formation. ??For example, urine pH below 6.0 may help reduce the tendency for calcium phosphate stones and pH greater than 6.0 may reduce the tendency for uric acid stone formation. Source: [facility] Current Interpretive Data was last revised [...] GENERAL ORD ERABLES Final Result [facility] 1 [facility] Department [place] [address] * CT KUB Stone WO Contrast (04/12/2024 [...] visible coronary artery calcification. ??No effusion. LIVER/BILIARY: ??Kfxw-dy-tzfykxho hepatic steatosis. ?Biliary tree normal in caliber. [...] AM T: ??04/12/2024 6:22 AM Report ID: [id number] Reading Location: ??[id number] Procedure Note Ben Noland MD - 04/12/2024 [...] visible coronary artery calcification. No effusion. LIVER/BILIARY: Ogwo-dy-umkbggku hepatic steatosis. Biliary tree normalin caliber. GALLBLADDER: [...] Ben Noland M.D. AR: MICHA Report ID: [id number] Reading Location: [place] [address] Sukhwinder Sanchez MD IMG CT PROCEDURES Final [...] LAB BLOOD ORDERABLES Final Res ult [facility] 1 [facility] Department [place] [address] * Differential, auto (04/12/2024 5:01 AM CDT) Neutrophil abs 3.2 1.5 - 6.5 K/cumm Imm gran abs 0.1 0.0 - 0.1 K/cumm [facility] Lymphocyte abs 1.1 0.8 - 3.3 K/cumm [facility] Monocyte abs 0.4 0.2 - 0.8 K/cumm [facility] Eosinophil abs 0.1 0.0 - 0.5 K/cumm [facility] Basophil abs 0.1 0.0 - 0.1 K/cumm [facility] Neutrophil pct 64.4 % [facility] Comment: Interpretive Data Percent cell count reference ranges are not reported, since discordance with absolute values may lead to misinterpretation of CBC data. Current Interpretive Data was last revised on 2017. Imm gran pct 1.0 % [facility] Comment: Interpretive Data Percent cell count reference ranges are not reported, since discordance with absolute values may lead to misinterpretation of CBC data. Current Interpretive Data was last revised on 2017. Lymphocyte pct 22.9 % [facility] Comment: Interpretive Data Percent cell count reference ranges are not reported, since discordance with absolute values may lead to misinterpretation of CBC data. Current Interpretive Data was last revised on 2017. Monocyte pct 7.9 % [facility] Comment: Interpretive Data Percent cell count reference [...] MD LAB BLOOD ORDERABLES Final Res ult [facility] ([place] 1 [facility] Department [place] [address] * (ABNORMAL) Comprehensive metabolic panel (04/12/2024 5:01 [...] Final Res ult [facility] 1 [facility] Department [place] [address] * CBC with auto differential (04/12/2024 5:01 [...] 0.00 0.00 - 0.01 K/cumm [facility] Blood 04/12/2024 5:01 AM CDT 04/12/2024 5:32 AM CDT us Sukhwinder Sanchez MD LAB BLOOD ORDERABLES Final Res ult [facility] 1 [facility] Department [place] [address] documented in this encounter Visit Diagnoses Diagnosis [...] Nausea, Vomiting 0540 (Given - Provid er: Peter Blandon RN) sodium chloride 0.9% bolus 1,000 [...] Stopped) documented in this encounter Care Teams Automotive Leasing Sales Representative Relationship Specialty Start Date End Date La Kearney MD [address] [place] [address] [address] PCP - General Family Medicine 10/02/22 Mariaelena Zaidi MD Consulting Physician Sleep Medicine 07/12/21 documented as of this encounter
--- OUTSIDE RECORDS SUMMARY | 2024-09-17 14:01 | XMS_ITS | Encounter Summary ---
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
--- OUTSIDE RECORDS SUMMARY | 2024-09-17 14:01 | XMS_ITS | Encounter Summary ---
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
--- OUTSIDE RECORDS SUMMARY | 2024-09-17 14:01 | XMS_ITS | Encounter Summary ---
Author Organization [facility] Healthcare Address [address] [place] [address] Care Team Providers Care Descriptive Catalog Librarian Name Role Phone Mariaelena Zaidi MD Unavailable La Kearney MD Primary Care Provide r Reason for Visit * Reason Comments 4 month follow up Encounter Details Date Type Department Care Team (Late st Contact Info) Description 02/18/2024 3:45 PM CDT Office Visit [facility] Medical Group Primary Care at [address] [address] La Kearney MD [address] [place] [address] Essential hypertension Social History Tobacco Use [...] on file 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
--- OUTSIDE RECORDS SUMMARY | 2024-09-17 14:01 | XMS_ITS | Encounter Summary ---
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
--- OUTSIDE RECORDS SUMMARY | 2024-09-17 14:01 | XMS_ITS | Encounter Summary ---
Author Organization [facility] Healthcare Address [address] [place] [address] Care Team Providers Care Polysomnographer Name Role Phone Mariaelena Zaidi MD Unavailable [...] Expiration Date Visits Re quested Visits Authorized [id number] 1 1 Encounter Details Date Type Department Care Team (Late st Contact Info) Description 04/13/2024 7:56 AM CDT - 04/14/2024 12:51 PM CDT Emergency [facility] [address] [place] [address] Idalia Young MD [address] [address] Ben Rosas DO [address] [place] [address] Ramos Garcia DO [address] [address] Ureteral stone with hydronephrosis (Primary Dx); Vomiting, [...] file 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 Gender Identity Not on file Sexual [...] 04/14/2024 11:09 AM CDT Inpatient Discharge Summary [facility] Service Patient Name - Jaden Clement Patient Age - 53 yrs Patient - [id number] [facility] - [id number] Admitting Provider, : Ben Rosas DO Discharge Provider, : Ramos Garcia DO Primary Care Physician at Discharge: La Kearney MD [phone] Admission Date: 04/13/2024 Discharge Date/time: 04/14/2024 Admission Location: [facility] LOS - LOS: 0 days DETAILS [...] Your Medications These medications were sent to [facility] [place], [place] - [address] [facility] [address] [facility] [address], [facility] [id number] ciprofloxacin 500 mg tablet ketorolac 10 mg [...] schedule an appointment with the following provider(s): [facility] [place] [facility] [address] [place] [address] [address] [facility] [address] Please schedule follow up appointment in 2 weeks for stent removal ANCILLARY INFORMATION Other Procedures & Diagnostic Tests: FL Retro Pyelo (In Or) Result Date: 04/13/2024 EXAM DESCRIPTION: FL RETRO PYELO (IN OR) REASON FOR STUDY: pain. Previous CT of 04/12/2024 demonstrates left ureteral lithiasis. COMPARISON: CT dated 04/12/2024 RADIATION DOSE: Dose: 0.29361 mGycm2 Dose Area Product (DAP) Number of [...] JS: CHELSIE D: :23 PM Report ID: [id number] Reading Location: [id number] Recent Labs: Recent Labs Lab Units 04/14/24 [...] 17 15 CREATININE mg/dL 1.20 1.74* 1.35* [id number] mL/min/1.73 m2 71 46* 62 GLUCOSE mg/dL [...] Care Everywhere. * Kidney Stones (Discharge Care) (Palestinian) * Ureteral Stent Placement (Discharge Care) (Palestinian) * Tamsulosin (By mouth) (Palestinian) * Oxybutynin (By mouth) (Palestinian) * Phenazopyridine (By mouth) (Palestinian) * Laxative, Stool Softeners (By mouth) (Palestinian) * Ketorolac (By mouth) (Palestinian) * Ciprofloxacin (By mouth) (Palestinian) documented in this encounter Medications at Time of Discharge lisinopriL (PRINIVIL,ZESTRIL) 5 mg tabletIndications:E ssential hypertension Take 1 tablet (5 mg total) by mouth nightly 100 tablet 3 02/18/2024 metoprolol XL (TOPROL-XL) 50 mg extended release tabletIndications:E ssential hypertension Take 1 tablet (50 mg total) by mouth nightly 90 tablet 3 02/18/2024 02/18/20 25 pramipexole (MIRAPEX) 1.5 mg tabletIndications:R estless legs syndrome TAKE 1 TABLET THREE TIMES A DAY 100 tablet 10 02/10/2024 pravastatin (PRAVACHOL) 40 mg tabletIndications:H yperlipidemia, unspecified hyperlipidemia type TAKE 1 TABLET DAILY 90 tablet 1 12/27/2023 oxyBUTYnin XL (DITROPAN-XL) 10 mg 24 hr tablet Take 1 tablet (10 mg total) by mouth daily 30 tablet 04/14/2024 phenazopyridine (PYRIDIUM) 200 mg tablet Take 1 tablet (200 mg total) by mouth 3 (three) times a day as needed for bladder spasms 9 tablet 04/14/2024 senna-docusate (PERICOLACE) 8.6-50 mg Take [...] MORNING 100 tablet 1 03/08/2024 09/04/20 24 HYDROcodone-acetami nophen (NORCO) 5-325 mg per tabletIndications:P ain Take 1 tablet by mouth every 6 (six) hours as needed for pain 12 tablet 04/12/2024 05/25/20 24 ciprofloxacin (CIPRO) 500 mg tablet Take [...] Ciprofloxacin 500mg BID, disp 6, 0 refills [place] 5/325 q6 hrs PRN pain, disp 28, [...] 05/25/2020 Added automatically from request for surgery [id number] Sleep apnea Urinary retention Past Surgical History: [...] tablet 10 mg 10 mg oral Nightly Jaent Escoto MD bisacodyl EC (DULCOLAX EC) tablet [...] mg/mL (33.3 mg/mL as elemental magnesium) oral [id number] mL 30 mL oral Daily PRN Janet [...] COMPARISON: CT dated 04/12/2024 RADIATION DOSE: Dose: 0.09950 mGycm2 Dose Area Product (DAP) Number of [...] Mando Dominguez M.D. JS: CHELSIE Report ID: [id number] Reading Location: [id number] CT KUB Stone WO Contrast Result Date: [...] visible coronary artery calcification. No effusion. LIVER/BILIARY: [id number] hepatic steatosis. Biliary tree normal in caliber. [...] Ben Noland M.D. AR: MICHA Report ID: [id number] Reading Location: [id number] A/P Ureteral stone with hydronephrosis. Status post left ureteral stent which will remain for 2 weeks, laser lithotripsy and stone extraction. Continue empiric Omnicef due to abnormal UA and follow up onurine culture results. Pain control with [place] and p.r.n. Dilaudid. [facility]patient [facility] in [facility] [...] any separately reportable services. Voice recognition software [employer] Direct was used dictate and transcribe this document. Integration Manager variances may occur. Despite proofreading, typographical errors [...] 05/25/2020 Added automatically from request for surgery [id number] Sleep apnea Urinary retention Past Surgical History: [...] 05/25/2020 Added automatically from request for surgery [id number] Sleep apnea Urinary retention Past Surgical History: [...] Care Provider: La Kearney MD Preferred Pharmacy: [facility] - [address] [address] Who does the patient or legal guardian want to receive education instruction and discharge plans for after care assistance?: Decline Living Arrangements: Spouse/significant other Does the patient need discharge transport arranged?: No (04/13/24 2718) Additional Information and Discharge Plan: DC plan [...] the Shift: Patient to remain hemodynamically stable. Account Associate Patient Centered Goal for Treatment: Patient to [...] on left side Surgeon: Lalito Lang MD Auction Block Clerk: None Anesthesia: General Indications: This is a [...] MD - Primary Anesthesiologist: Madhav Cedeno MD OFFICE NURSE PRACTITIONER: Odette Porter CRNA Front Office Director: Iris Talbot RN Technical Trainer: Denice Mayer RT Scrub: Tiana Coronado [facility] [employer] KEEPER: Cas Sarah RN DATE OF SURGERY : [...] Implant Name Type Inv. Item Serial No. Rehabilitation Aide/Scheduler Lot No. LRB No. Used Action [employer] Contour 6fr 28cm Taper Tip Bladder Oscar Low Profile Large Inner Latex Free 180-224 - [id number] [employer] Contour 6fr 28cm Taper Tip Bladder Oscar Low Profile Large Inner Latex Free 180-224 [employer] Angela [id number] Left 1 Implanted Blood/Blood Products Transfused: 0 [...] MD LAB BLOOD ORDERABLE S Final Result [facility] ([place]) 1 [facility] Department [place] [address] * (ABNORMAL) Differential, auto (04/14/2024 3:50 AM CDT) [facility] Neutrophil abs 7.5(H) 1.5 - 6.5 K/cumm [...] LAB BLOOD ORDERABLE S Final Result [facility] ([place]) 1 [facility] Department [place] [address] * (ABNORMAL) Comprehensive metabolic panel (04/14/2024 3:50 [...] S Final Result [facility] ([place]) 1 [facility] [employer] [place] [address] * (ABNORMAL) CBC with auto differential (04/14/2024 [...] S Final Result [facility] ([place]) 1 [facility] [place] [address] * Surgical pathology (04/13/2024 1:37 PM CDT) Tissue (Calculus/calculi /stone, gross and Chemical Analysis) 04/13/2024 12:58 PM CDT Narrative [facility] ([place]) - 04/15/2024 4:14 PM CDT [facility] results best viewed via link to PDF [facility] Department of Pathology [address] [place] [address] Note to Patients: This report may contain [...] Final Report Patient Name: ??JADEN CLEMENT Address: ??[facility] [address] [facility], ??[place], [place] [address] Gender: ??M : ??1970 (Age: 53) Service: ??Medical Location: ??[facility] Hospital #: ??[id number] Patient Type: ??[facility] EP OP in bed Accession # ?[id number] Taken: ??04/13/2024 Received: ??04/13/2024 Accessioned: ??04/13/2024 Reported: ??04/15/2024 Physician(s):Lalito Lang MD Diagnosis: Ureter, left: ? - Calculi (gross examination only). ? - Submitted to [facility] for chemical analysis. Wilfredo Ryder MD Report Electronically Reviewed and Signed Out By ??Wilfredo Ryder MD ??04/15/2024 16:14:29 Specimen(s) Received: A: Left ureteral stone Clinical History: Left ureteral stone. ??Left cystoscopy, left ureteroscopy with laser lithotripsy, placement ureteral stent left, retrograde pyelogram. ?? Gross Description: The specimen is submitted in a single container labeled JADEN CLEMETN and left ureteral stone . ??It is 6 contreras brown granular stones between 1 and 3 mm. The specimen is entirely submitted to [facility] for chemical analysis. When the [facility] report has been finalized, it will be available in the laboratory section of Clinical Desktop and Epic. If Clinical Desktop or Epic is not available, please call the Department of Pathology at [facility] ([phone]) to obtain a copy of the report. Alejandra Arreguin R.N., P.A./Heath Jain M.D. REPORT IMAGES AND SCANNED DOCUMENTS, IF INCLUDED, ONLY VIEWABLE IN PDF VERSION OF REPORT The performance characteristics of some immunohistochemical stains, fluorescence in-situ hybridization tests and immunophenotyping by flow cytometry cited in this report (if any) were determined by the Surgical Pathology Department at [facility] as part of an ongoing manufacturing quality inspector program and in compliance with federally mandated [...] characteristics determined by the Surgical Pathology Department [facility]. ??It has not been cleared or approved by the U. S. Food and Drug Administration. Note for decalcified specimens: This assay has not been validated on decalcified tissues. Results should be interpreted with caution given the possibility of false negativity on decalcified specimens [facility] Lang MD LAB PATHOLOGY ORDERABLES Final Result [facility] ([place]) [address] [place] [address] * FL Retro Pyelo (In Or) (04/13/2024 1:26 PM CDT) Anatomical Region Laterality Modality Body N/A Radio Fluoroscop y 04/13/2024 5:19 PM CDT Narrative 04/13/2024 5:23 PM CDT EXAM DESCRIPTION: ?? FL RETRO PYELO (IN OR) REASON FOR STUDY: ?? pain. ??Previous CT of 04/12/2024 demonstrates left ureteral lithiasis. COMPARISON: ?? CT dated 04/12/2024 RADIATION DOSE: Dose: ??0.82990 ?? mGycm2 Dose Area Product (DAP) Number [...] PM T: ??04/13/2024 5:23 PM Report ID: [id number] Reading Location: ??[id number] Procedure Note Mando Dominguez, DO - 04/13/2024 EXAM DESCRIPTION: FL RETRO PYELO (IN OR) REASON FOR STUDY: pain. Previous CT of 04/12/2024 demonstrates left ureteral lithiasis. COMPARISON: CT dated 04/12/2024 RADIATION DOSE: Dose: 0.78529 mGycm2 Dose Area Product (DAP) Number of [...] Mando Dominguez M.D. JS: CHELSIE Report ID: [id number] Reading Location: [id number] Lalito Lang MD IMG FLUOROSCOPY PROCEDURES Fin al Result * Stone analysis (04/13/2024 12:00 PM CDT) Stone analysis Not Reported [facility] Comment:Testing performed by : [facility], [address] [place] [address], [id number] Source, Kid Stone Left Ureter [facility] ([place]) Comment:Testing performed by : [facility], [address] [place] [address]., [id number] Interp, Kid stone analysis See Footnote [facility] ([place]) Comment: 60% Calcium oxalate dihydrate. 20% Calcium oxalate monohydrate. ??20% Calcium phosphate (apatite). Testing performed by: [facility], [address] [place] [address], [id number] COMMENT See Footnote [facility] ([place]) Comment: For stones containing calcium oxalate, calcium phosphate, and/or uric acid, a 24 hr urinary supersaturation test may help detect underlying risk factors for this type of stone formation and provide guidance for a stone prevention strategy. ADDITIONAL INFORMATION This test was developed and its performance characteristics determined by [facility] in a manner consistent with CLIA requirements. This test has not been cleared or approved by the U.S. Food and Drug Administration. Test Performed by: [facility] [place] [place] [address] Pest Control Service Technician: Paul Yuen Ph.D.; CLIA# [id number] Testing performed by: [address], [address] Stone 04/13/2024 12:0 0 PM CDT 04/16/2024 11:16 AM CDT Narrative [facility] ([place]) - 04/27/2024 8:15 PM CDT LEFT URETERAL STONE Ramos Wilkerson Radha DO LAB URINE ORDERABLES F inal Result [facility] ([place]) 1 [facility] [place] [address] [facility] * (ABNORMAL) Urinalysis, microscopic only (04/13/2024 8:34 AM CDT) WBC, ur 6-10(A) 0 - 5 /HPF RBC, ur 6-10(A) 0 - 2 /HPF [facility] ([place]) Epithelial cells, squamous, ur 1-5 0 - 5 /HPF [facility] ([place]) Mucous, ur Present(A) [facility] ([place]) Culture Reflex Comment Reflex conditions for urine culture (WBC >10) not met. [facility] ([place]) Urine 04/13/2024 8:34 AM CDT 04/13/2024 8:38 AM CDT us Idalia Young MD LAB URINE ORDERABLE S Final Result Performing Organization Address City/[facility] Co de Phone Number [facility] ([place]) 1 [facility] [place] [address] * Sepsis Lactate w/ Reflex (04/13/2024 8:34 AM CDT) Sepsis Lactate 0.7 0.7 - 2.0 mmol/L Blood 04/13/2024 8:34 AM CDT 04/13/2024 8:38 AM CDT us Idalia Young MD LAB BLOOD ORDERABLE S Final Result [facility] ([place]) 1 [facility] Department [place] [address] * (ABNORMAL) Urinalysis reflex to microscopic and culture Urine (04/13/2024 8:34 AM CDT) Pathologist [facility] Color, ur Yellow Yellow Clarity, ur Clear [...] tendency for uric acid stone formation. Source: [facility] [employer] Current Interpretive Data was last revised on [...] AM CDT 04/13/2024 8:38 AM CDT us dIalia Young MD LAB MICROBIOLOGY - GENERAL ORDERABLES Final Result [facility] ([place]) 1 [facility] Department [place] [address] * (ABNORMAL) eGFR (04/13/2024 7:55 AM CDT) Pathologist [facility] eGFR 46(L) >=60 mL/min/1. 73 m2 Comment: [...] LAB BLOOD ORDERABLE S Final Result [facility] ([place]) 1 [facility] Department [place] [address] * (ABNORMAL) Differential, auto (04/13/2024 7:55 AM [...] S Final Result [facility] ([place]) 1 [facility] Department [place] [address] * (ABNORMAL) Comprehensive metabolic panel (04/13/2024 7:55 [...] S Final Result [facility] ([place]) 1 [facility] Department [place] [address] * (ABNORMAL) CBC with auto differential (04/13/2024 [...] RDW SD 40.4 35.7 - 48.[address] [facility] ([place]) NRBC abs 0.00 0.00 - 0.01 K/cumm [facility] ([place]) Blood (Blood, Venous) 04/13/2024 7:55 AM CDT 04/13/2024 8:04 AM CDT us Idalia Young MD LAB BLOOD ORDERABLE S Final Result [facility] ([place]) 1 [facility] Department [place] [address] documented in this encounter Visit Diagnoses Diagnosis [...] formally diagnosed with prolonged QT syndrome 105 ([facility] Hold - Provider: Automatic Transfer Provider - Reason: Patient not available)1422 ([facility] Unhold - Provider: Automatic Transfer Provider) ondansetron (ZOFRAN) injection 4 mg(Linked Group 1) 4 mg, intravenous, Administer over 2 Minutes, Every 6 hours PRN, nausea, vomiting, if not tolerating PO, Starting on Sat04/13/24 at 1056, Indications: Nausea and Vomiting 1057 ([facility] Hold - Provider: Automatic Transfer Provider - Reason: Patient not available)1422 ([facility] Unhold - Provider: Automatic Transfer Provider) ondansetron ODT (ZOFRAN-ODT) disintegrating tablet 4 mg 4 mg, oral, Once as needed, nausea, vomiting, If able to tolerate PO, Starting on Sat04/13/24 at 0749, For 1 dose, Do not administer if patient had 8mg administered within 6 hours of patient presenting to ED Do not administer if patient was formally diagnosed with prolonged QT syndrome 1057 ([facility] Hold - Provider: Automatic Transfer Provider - Reason: Patient not available)1422 ([facility] Unhold - Provider: Automatic Transfer Provider) ondansetron ODT (ZOFRAN-ODT) disintegrating tablet 4 mg(Linked Group 1) 4 mg, oral, Every 6 hours PRN, nausea, vomiting, Starting on Sat04/13/24 at 1056, Indications: Nausea and Vomiting 1057 ([facility] Hold - Provider: Automatic Transfer Provider - Reason: Patient not available)1422 ([facility] Unhold - Provider: Automatic Transfer Provider) polyethylene [...] 04/13/2024 documented in this encounter Care Teams Polysomnographer Relationship Specialty Start Date End Date La Kearney MD [address] [address] PCP - General Family Medicine 10/02/22 Mariaelena Zaidi MD Consulting Physician Sleep Medicine 07/12/21 documented as of this encounter
--- OUTSIDE RECORDS SUMMARY | 2024-09-17 14:01 | XMS_ITS | Encounter Summary ---
Author Organization [facility] Healthcare Address [address] [place] [address] Care Team Providers Care Metal Casting Trades Worker Name Role Phone Mariaelena Zaidi MD [...] Expiration Date Visits Re quested Visits Authorized [id number] 1 1 Encounter Details Date Type Department Care Team (Late st Contact Info) Description 04/13/2024 12:00 PM CDT - 04/13/2024 1:30 PM CDT Surgery [facility] Operating Room [address] [place] [address] [place] [address] [place] [address] LEFT CYSTOSCOPY, LEFT URETEROSCOPY WITH LASER LITHOTRIPSY, PLACEMENT URETERAL STENT LEFT, RETROGRADE PYELOGRAM Surgery Details Date/Time Status Location OR Service Patient Class Case Class Case Type Trauma Case? 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 LOS - LOS: 0 days DETAILS [...] Your [facility]ations [facility] [place] [place] [facility] [address] [facility] [address], [facility] [address] ciprofloxacin 500 mg tablet ketorolac 10 mg [...] schedule an appointment with the following provider(s): [facility] [place] [facility] [address] [place] [address] [address] [facility] [address] Please schedule follow up appointment in 2 weeks for stent removal ANCILLARY INFORMATION Other Procedures & Diagnostic Tests: FL Retro Pyelo (In Or) Result Date: 04/13/2024 EXAM DESCRIPTION: FL RETRO PYELO (IN OR) REASON FOR STUDY: pain. Previous CT of 04/12/2024 demonstrates left ureteral lithiasis. COMPARISON: CT dated 04/12/2024 RADIATION DOSE: Dose: 0.69400 mGycm2 Dose Area Product (DAP) Number of [...] JS: CHELSIE D: :23 PM Report ID: [id number] Reading Location: [id number] Recent Labs: Recent Labs Lab Units 04/14/24 [...] 17 15 CREATININE mg/dL 1.20 1.74* 1.35* LZC-DEZ-EUIFDKG mL/min/1.73 m2 71 46* 62 GLUCOSE mg/dL [...] Care Everywhere. * Kidney Stones (Discharge Care) (Pakistani) * Ureteral Stent Placement (Discharge Care) (Pakistani) * Tamsulosin (By mouth) (Pakistani) * Oxybutynin (By mouth) (Pakistani) * Phenazopyridine (By mouth) (Pakistani) * Laxative, Stool Softeners (By mouth) (Pakistani) * Ketorolac (By mouth) (Pakistani) * Ciprofloxacin (By mouth) (Pakistani) documented in this encounter Medications at Time [...] Ciprofloxacin 500mg BID, disp 6, 0 refills [place] 5/325 q6 hrs PRN pain, disp 28, [...] 05/25/2020 Added automatically from request for surgery [id number] Sleep apnea Urinary retention Past Surgical History: [...] mg/mL (33.3 mg/mL as elemental magnesium) oral cgibmcydar01 mL 30 mL oral Daily PRN Janet Escoto MD metoprolol XL (TOPROL-XL) extended release tablet 50 mg 50 mg oral Nightly Janet Escoto MD mineral oil (FLEET MINERAL OIL) enema 133 mL 1 enema rectal Daily PRN aJnet Escoto MD ondansetron (ZOFRAN) injection 4 mg [...] COMPARISON: CT dated 04/12/2024 RADIATION DOSE: Dose: 0.46149 mGycm2 Dose Area Product (DAP) Number of [...] Mando Dominguez M.D. JS: CHELSIE Report ID: [id number] Reading Location: [id number] CT KUB Stone WO Contrast Result Date: [...] visible coronary artery calcification. No effusion. LIVER/BILIARY: Yjga-de-urvcootd hepatic steatosis. Biliary tree normal in caliber. [...] Ben Noland M.D. AR: MICHA Report ID: [id number] Reading Location: [id number] A/P Ureteral stone with hydronephrosis. Status post left ureteral stent which will remain for 2 weeks, laser lithotripsy and stone extraction. Continue empiric Omnicef due to abnormal UA and follow up onurine culture results. Pain control with [place] and p.r.n. Dilaudid. Outpatient follow-up in [facility] [...] any separately reportable services. Voice recognition software [employer] Direct was used dictate and transcribe this document. Supervisor Component Assembler variances may occur. Despite proofreading, typographical errors [...] 05/25/2020 Added automatically from request for surgery [id number] Sleep apnea Urinary retention Past Surgical History: [...] 05/25/2020 Added automatically from request for surgery [id number] Sleep apnea Urinary retention Past Surgical History: [...] Care Provider: La Kearney MD Preferred Pharmacy: [facility] HOME DELIVERY - [address] [address] Who does the patient or legal guardian want to receive education instruction and discharge plans for after care assistance?: Decline Living Arrangements: Spouse/significant other Does the patient need discharge transport arranged?: No (04/13/24 2023) Additional Information and Discharge Plan: DC plan [...] the Shift: Patient to remain hemodynamically stable. Overhead Distribution Engineer Patient Centered Goal for Treatment: Patient to [...] on left side Surgeon: Lalito Lang MD Junior Estimator: None Anesthesia: General Indications: This is a [...] MD - Primary Anesthesiologist: Madhav Cedeno MD HOGSHEAD HAND: Odette Porter CRNA Civil Division Commander Deputy Sheriff: Iris Talbot RN Trains Dispatcher Supervisor: Denice Mayer RT Scrub: Tiana Coronado ST GENERAL FARM MANAGER: Cas Sarah RN DATE OF SURGERY : [...] Implant Name Type Inv. Item Serial No. Crossing Gateman Lot No. LRB No. Used Action [employer] Contour 6fr 28cm Taper Tip Bladder Oscar Low Profile Large Inner Latex Free 180-224 - [id number] [employer] Contour 6fr 28cm Taper Tip Bladder Oscar Low Profile Large Inner Latex Free 180-224 [employer] Angela [id number] Left 1 Implanted Blood/Blood Products Transfused: 0 [...] MD LAB BLOOD ORDERABLE S Final Result [facility] ([place]) [address] [facility] [place] [address] * (ABNORMAL) Differential, auto (04/14/2024 3:50 AM CDT) Neutrophil abs 7.5(H) 1.5 - 6.5 K/cumm Imm gran abs 0.0 0.0 - 0.1 K/cumm [facility] ([place]) Lymphocyte abs 0.9 0.8 - 3.3 K/cumm [...] BLOOD ORDERABLE S Final Result [facility] ([place] [address] [facility] [place] [address] * (ABNORMAL) Comprehensive metabolic panel (04/14/2024 3:50 [...] S Final Result [facility] ([place]) 1 [facility] [place] [address] * (ABNORMAL) CBC with auto differential (04/14/2024 [...] S Final Result [facility] ([place]) 1 [facility] [place] [address] * Surgical pathology (04/13/2024 1:37 PM CDT) Tissue (Calculus/calculi /stone, gross and Chemical Analysis) 04/13/2024 12:58 PM CDT Narrative [facility] ([place]) - 04/15/2024 4:14 PM CDT [facility] results best viewed via link to PDF [facility] Department of Pathology [address] [place] [address] Note to Patients: This report may contain [...] Final Report Patient Name: ??JADEN CLEMENT Address: ??[facility], ??[place], [place] [address] Gender: ??M : ??1970 (Age: 53) Service: ??Medical Location: ??[facility] Hospital #: ??[id number] Patient Type: ??[facility] EP OP in bed Accession # [id number] Taken: ??04/13/2024 Received: ??04/13/2024 Accessioned: ??04/13/2024 Reported: ??04/15/2024 Physician(s):Lalito Lang MD Diagnosis: Ureter, left: ? - Calculi (gross examination only). ? - Submitted to [facility] for chemical analysis. Wilfredo Ryder [...] mm. The specimen is entirely submitted to [facility] for chemical analysis. When the [facility] report has been finalized, it will be available in the laboratory section of Clinical Desktop and Epic. If Clinical Desktop or Epic is not available, please call the Department of Pathology at [facility] ([phone]) to obtain a copy of the report. Alejandra Arreguin R.N., P.A./Heath Jain M.D. REPORT IMAGES AND SCANNED DOCUMENTS, IF INCLUDED, ONLY VIEWABLE IN PDF VERSION OF REPORT The performance characteristics of some immunohistochemical stains, fluorescence in-situ hybridization tests and immunophenotyping by flow cytometry cited in this report (if any) were determined by the Surgical Pathology Department at [facility] as part of an ongoing quality assurance tester program and in compliance with federally mandated [...] characteristics determined by the Surgical Pathology Department [facility]. ??It has not been cleared or approved by the U. S. Food and Drug Administration. Note for decalcified specimens: This assay has not been validated on decalcified tissues. Results should be interpreted with caution given the possibility of false negativity on decalcified specimens [facility] Allan Irene MD LAB PATHOLOGY ORDERABLES Final Result [facility] ([place]) 1 [place], [place] [id number] * FL Retro Pyelo (In Or) (04/13/2024 1:26 PM CDT) Anatomical Region Laterality Modality Body N/A Radio Fluoroscop y 04/13/2024 5:19 PM CDT Narrative 04/13/2024 5:23 PM CDT EXAM DESCRIPTION: ?? FL RETRO PYELO (IN OR) REASON FOR STUDY: ?? pain. ??Previous CT of 04/12/2024 demonstrates left ureteral lithiasis. COMPARISON: ?? CT dated 04/12/2024 RADIATION DOSE: Dose: ??0.26595 ?? mGycm2 Dose Area Product (DAP) Number [...] PM T: ??04/13/2024 5:23 PM Report ID: [id number] Reading Location: ??[id number] Procedure Note Mando Dominguez, DO - 04/13/2024 EXAM DESCRIPTION: FL RETRO PYELO (IN OR) REASON FOR STUDY: pain. Previous CT of 04/12/2024 demonstrates left ureteral lithiasis. COMPARISON: CT dated 04/12/2024 RADIATION DOSE: Dose: 0.96876 mGycm2 Dose Area Product (DAP) Number of [...] Mando Dominguez M.D. JS: CHELSIE Report ID: [id number] Reading Location: [id number] Lalito Lang MD IMG FLUOROSCOPY PROCEDURES Fin al Result * Stone analysis (04/13/2024 12:00 PM CDT) Stone analysis Not Reported [facility] Comment:Testing performed by : [facility], [address] [place] [address]., [id number] Source, Kid Stone Left Ureter [facility] Comment:Testing performed by : [facility], [address] [place] [address]., [address] Interp, Kid stone analysis See Footnote [facility] Comment: 60% Calcium oxalate dihydrate. 20% Calcium oxalate monohydrate. ??20% Calcium phosphate (apatite). Testing performed by: [facility], [address] [place] [address]., [address] COMMENT See Footnote [facility] Comment: For stones containing calcium oxalate, calcium phosphate, and/or uric acid, a 24 hr urinary supersaturation test may help detect underlying risk factors for this type of stone formation and provide guidance for a stone prevention strategy. ADDITIONAL INFORMATION This test was developed and its performance characteristics determined by [facility] in a manner consistent with CLIA requirements. This test has not been cleared or approved by the U.S. Food and Drug Administration. Test Performed by: [facility] [place] [address] Preforming Machine Operator: Paul Yuen Ph.D.; CLIA# [id number] Testing performed by: [address], [address] Stone 04/13/2024 12:0 0 PM CDT 04/16/2024 11:16 AM CDT Narrative [facility] ([place] - 04/27/2024 8:15 PM CDT LEFT URETERAL STONE Ramos Wilkerson Radha LAB URINE ORDERABLES F inal Result [facility] ([place]) [address] [facility] Department [place] [address] [facility] ref [facility] * (ABNORMAL) Urinalysis, microscopic only (04/13/2024 8:34 AM CDT) WBC, ur 6-10(A) 0 - 5 /HPF RBC, ur 6-10(A) 0 - 2 /HPF [facility] Epithelial cells, squamous, ur 1-5 0 - 5 /HPF [facility] ([place]) Mucous, ur Present(A) [facility] ([place]) Culture Reflex Comment Reflex conditions for urine culture (WBC >10) not met. [facility]) Urine 04/13/2024 8:34 AM CDT 04/13/2024 8:38 AM CDT us Idalia Young MD LAB URINE ORDERABLE S Final Result Performing Organization Address City/[facility] Co de Phone Number [facility] 1 [facility] [place] [address] * Sepsis Lactate w/ Reflex (04/13/2024 8:34 AM CDT) Sepsis Lactate 0.7 0.7 - 2.0 mmol/L Blood 04/13/2024 8:34 AM CDT 04/13/2024 8:38 AM CDT Idalia Young MD LAB BLOOD ORDERABLE S Final Result [facility] [address] [facility] Department [place] [address] * (ABNORMAL) Urinalysis reflex to microscopic and [...] for uric acid stone formation. Source: [facility] Current Interpretive Data was last revised on [...] [facility] [place] [address] * (ABNORMAL) eGFR (04/13/2024 7:55 AM CDT) [...] LAB BLOOD ORDERABLE S Final Result [facility] ([place] [address] [facility] [place] [address] * (ABNORMAL) Differential, auto (04/13/2024 7:55 AM [...] MD LAB BLOOD ORDERABLE S Final Result [facility] ([place] [address] [facility] [place] [address] * (ABNORMAL) Comprehensive metabolic panel (04/13/2024 7:55 [...] S Final Result [facility] ([place] [address] [facility] [place] [address] * (ABNORMAL) CBC with auto differential (04/13/2024 [...] S Final Result [facility] ([place]) [address] [facility] [place] [address] documented in this encounter Visit Diagnoses Not [...] pharmacy at 2223) 900 (Given - Provider: Mendy Wilson RN) senna-docusate (PERICOLACE) 8.6-50 mg per [...] formally diagnosed with prolonged QT syndrome 1057 ([facility] Hold - Provider: Automatic Transfer Provider - Reason: Patient not available)1422 ([facility] Unhold - Provider: Automatic Transfer Provider) ondansetron (ZOFRAN) injection 4 mg(Linked Group 1) 4 mg, intravenous, Administer over 2 Minutes, Every 6 hours PRN, nausea, vomiting, if not tolerating PO, Starting on Sat04/13/24 at 1056, Indications: Nausea and Vomiting 1057 ([facility] Hold - Provider: Automatic Transfer Provider - Reason: Patient not available)1422 ([facility] Unhold - Provider: Automatic Transfer Provider) ondansetron ODT (ZOFRAN-ODT) disintegrating tablet 4 mg 4 mg, oral, Once as needed, nausea, vomiting, If able to tolerate PO, Starting on Sat04/13/24 at 0749, For 1 dose, Do not administer if patient had 8mg administered within 6 hours of patient presenting to ED Do not administer if patient was formally diagnosed with prolonged QT syndrome 1057 ([facility] Hold - Provider: Automatic Transfer Provider - Reason: Patient not available)1422 ([facility] Unhold - Provider: Automatic Transfer Provider) ondansetron [...] 04/13/2024 documented in this encounter Care Teams Metal Casting Trades Worker Relationship Specialty Start Date End Date La Kearney MD [address] [place] [address] [place] [address] PCP - General Family Medicine 10/02/22 Mariaelena Zaidi MD Consulting Physician Sleep Medicine 07/12/21 documented as of this encounter
--- OUTSIDE RECORDS SUMMARY | 2024-09-17 14:01 | XMS_ITS | Encounter Summary ---
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
--- OUTSIDE RECORDS SUMMARY | 2024-09-17 14:01 | XMS_ITS | Encounter Summary ---
Author Organization [facility] Healthcare Address [address] [place] [address] Care Team Providers Care Grab Hooker Name Role Phone Mariaelena Zaidi MD Unavailable La Kearney MD Primary Care Provide r Reason for Referral * MRI/CAT/PET Scan (Routine) - Closed Specialty Diagnoses / Procedures Referred By Dougac janice Referred To Contact Radiology Diagnoses Lymphadenopathy Procedures CT Abdomen Pelvis W Contrast Ramos Fraga MD Phone: tel: fax: [address] [address] Referral ID Status Reason Start Date Expiration Date Visits Re quested Visits Authorized [id number] Closed 10/15/2023 11/13/2024 1 1 Reason for Visit * MRI/CAT/PET Scan (Routine) - Closed Specialty Diagnoses / Procedures Referred By Zaida camacho Referred To Contact Radiology Diagnoses Lymphadenopathy Procedures CT Abdomen Pelvis W Contrast Ramos Fraga MD Phone: tel: fax: [address] [phone] Referral ID Status Reason Start Date Expiration Date Visits Re quested Visits Authorized [id number] Closed 10/15/2023 11/13/2024 1 1 Encounter Details Date Type Department Care Team (Latest Contact Info) Description 12/13/2023 8:43 AM CDT - 12/13/2023 11:59 PM CDT Hospital Encounter [facility] Imaging Center [address] [place] [address] Lymphadenopathy Discharge Disposition: Discharge to home or [...] on file 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 CH: SWETHA Report ID: [id number] Reading Location: [id number] Ramos Fraga MD IMG CT PROCEDURE S [...] 01/2024 documented in this encounter Care Teams Grab Hooker Relationship Specialty Start Date End Date La Kearney MD [address] [facility] [address]UCAS [address] [place] [address] PCP - General Family Medicine 10/02/22 Mariaelena Zaidi MD Consulting Physician Sleep Medicine 07/12/21 documented as of this encounter
--- OUTSIDE RECORDS SUMMARY | 2024-09-17 14:01 | XMS_ITS | Encounter Summary ---
Author Organization [facility] Healthcare Address [address] [place] [address] Care Team Providers Care Compliance Nurse Name Role Phone Mariaelena Zaidi MD Unavailable La Kearney MD Primary Care Provide r Reason for Visit * Auth/Cert (Routine) Specialty Diagnoses / Procedures Referred By Contac t Referred To Contact Diagnoses Flank pain Ureteral stone with hydronephrosis Vomiting, unspecified vomiting type, unspecified whether nausea present Procedures NA Referral ID Status Reason Start Date Expiration Date Visits Re quested Visits Authorized [id number] 1 1 Encounter Details Date Type Department Care Team (Late st Contact Info) Description 04/13/2024 12:40 PM CDT Anesthesia Event [facility] Operating Room 1 [place] [address] Madhav Cedeno MD [address] [place] [id number] Anesthesia Record Procedure Summary Procedure Name Responsible [...] RETRO-PERITONEAL BIOPSY; 08/11/24 (Retired LDA, Removed/Completed by [email or web address] with LDA Utility); 1213 (Retired LDA, Removed/Completed by [email or web address] with LDA Utility) 02/06/19 1307 by Ye Workman RN 08/11/24 1213 by Discharge Provider, Automatic RETIRED Surgical Site 10/07/23; 1907; Abdomen; 08/11/24 (Retired LDA, Removed/Completed by [email or web address] with LDA Utility); 1213 (Retired LDA, Removed/Completed by [email or web address] with LDA Utility) 10/07/23 1907 by Eva [...] Left ureter; 08/11/24 (Retired LDA, Removed/Completed by [email or web address] with LDA Utility); 1213 (Retired LDA, Removed/Completed by [email or web address] with LDA Utility) 04/13/24 1254 by Iris [...] on file 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 OPERATING ROOM Anesthesia Start: 1240 Anesthesia Stop: [...] events documented. * Anesthesia Procedure Notes - Odtete Porter CRNA - 04/13/2024 12:53 PM CDTAssociated Order(s): Airway Airway Patient location: OR Urgency: elective Indications for airway management: anesthesia Difficult airway: no Staff: Placed by: GAS FITTER APPRENTICE: Odette Porter CRNA Emergent airway documentation: Risks [...] 05/25/2020 Added automatically from request for surgery [id number] Sleep apnea Urinary retention Past Surgical History: [...] mg capsule () -- 10/08/23 10/22/23 Charissa cMdonald NP Take 1 capsule (100 mg total) [...] Medication protocol when under care of a GAS FITTER APPRENTICE Planned anesthesia: General Team communication plan: LMA Induction: Induction: intravenous. Postoperative Plan: Postoperative administration opioids intended. No postoperative mechanical ventilation intended. Patient's planned disposition post procedure is Floor. Informed Consent: Discussed plan with attending and GAS FITTER APPRENTICE. Anesthesia plan and risks discussed with patient. [...] Procedure Name Priority Date/Time Associated Diagnosis Comments IA AN ELECTIVE SUPRAGLOTTIC AIRWAY Routine 04/13/2024 12:53 PM CDT documented in this encounter Results * IA AN ELECTIVE SUPRAGLOTTIC AIRWAY (04/13/2024 12:53 PM CDT) Narrative Odette Porter CRNA - 04/13/2024 12:53 PM CDT Odette Porter CRNA ? 04/13/2024 12:53 PM Airway Patient location: OR Urgency: elective Indications for airway management: anesthesia Difficult airway: no Staff: Placed by: GAS FITTER APPRENTICE: Odette Porter CRNA Emergent airway documentation: Risks [...] mg documented in this encounter Care Teams Compliance Nurse Relationship Specialty Start Date End Date La Kearney MD 2 [facility] [address] LUCAS [address] [place], [place] [address] [address] PCP - General Family Medicine 10/02/22 Mariaelena Zaidi MD Consulting Physician Sleep Medicine 07/12/21 documented as of this encounter
--- OUTSIDE RECORDS SUMMARY | 2024-09-17 14:01 | XMS_ITS | Encounter Summary ---
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
--- OUTSIDE RECORDS SUMMARY | 2024-09-17 14:01 | XMS_ITS | Encounter Summary ---
Author Organization [facility] Healthcare Address [address] [place] [address] Care Team Providers Care Miller Apprentice Name Role Phone Mariaelena Zaidi MD Unavailable La Kearney MD Primary Care Provide r Reason for Visit * Reason Onset Date Comments Medical Question/Miscellaneous 04/07/2024 Encounter Details Date Type Department Care Team (Late st Contact Info) Description 04/07/2024 Telephone [facility] Medical Group Primary Care at [address] [place] [address] La Kearney MD [address] [place] [address] [address] [place] [address] Medical Question/Miscellaneous Social History Tobacco [...] on file 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
--- OUTSIDE RECORDS SUMMARY | 2024-09-17 14:01 | XMS_ITS | Encounter Summary ---
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 I recommend an abdominal and pelvis ultrasound in 3 months for monitoring Dx enlarged lymph nodes MATIC OPERATOR documented in this encounter Plan of Treatment Not on file documented as of this encounter Visit Diagnoses Not on filedocumented in this encounter Care Teams Sponsorship Coordinator Relationship Specialty Start Date End Date La Kearney MD [address] [place] [address] DR LUCAS [address] [place] [address] PCP - General Family Medicine 10/02/22 Mariaelena Zaidi MD Consulting Physician Sleep Medicine 07/12/21 documented as of this encounter
--- OUTSIDE RECORDS SUMMARY | 2024-09-17 14:01 | XMS_ITS | Encounter Summary ---
Author Organization [facility] Healthcare Address [address] [place] [address] Care Team Providers Care Roll Press Operator Name Role Phone Mariaelena Zaidi MD Unavailable La Kearney MD Primary Care Provide r Reason for Referral * MRI/CAT/PET Scan (Routine) - Closed Specialty Diagnoses / Procedures Referred By Contac t Referred To Contact Radiology Diagnoses Lymphadenopathy Procedures CT Abdomen Pelvis W Contrast Ramos Fraga MD Phone: tel: fax: [facility] [address] [place] [address] Referral ID Status Reason Start Date Expiration Date Visits Re quested Visits Authorized [id number] Closed 10/15/2023 11/13/2024 1 1 PACKER Reason for Visit * Reason Comments PO appendectomy 10/07/23 Encounter Details Date Type Department Care Team (Late st Contact Info) Description 10/15/2023 9:00 AM MAT PACKER Office Visit [facility] [address] [facility] [address] [place] [phone] Ramos Fraga MD [address] [place] [address] [address] [place] [address] Acute appendicitis with localized peritonitis, without perforation, [...] on file Legal Sex Male 8:02 AM MAT PACKER Gender Identity Not on file Sexual Orientation Not on file documented as of this encounter Last Filed Vital Signs Vital Sign Reading Time Taken Comments Blood Pressure 118/70 10/15/2023 8:42 AM MAT PACKER Pulse 73 10/15/2023 8:42 AM MAT PACKER Temperature 36 ??C (96.8 ??F) 10/15/2023 8:42 AM MAT PACKER Respiratory Rate - - Oxygen Saturation 96% 10/15/2023 8:42 AM MAT PACKER Inhaled Oxygen Concentration - - Weight 122.4 kg (269 lb 14.4 oz) 10/15/2023 8:42 AM MAT PACKER Height 157.5 cm (5' 2 ) 10/15/2023 8:42 AM MAT PACKER Body Mass Index 49.37 10/15/2023 8:42 AM MAT PACKER documented in this encounter Progress Notes * [...] Pelvis W Contrast; Future 9:15 AM 10/15/2023 PACKER documented in this encounter Miscellaneous Notes * [...] back with any further questions or concerns. PACKER documented in this encounter Plan of Treatment [...] AM T: ??12/13/2023 11:29 AM Report ID: [id number] Reading Location: ??[id number] Procedure Note Ziggy Almaguer Jr., MD - [...] by Ziggy Almaguer M.D. CH: Report ID: [id number] Reading Location: [place] [address] Ramos Fraga MD IMG CT PROCEDURE S Final Result documented in this encounter Visit Diagnoses Diagnosis Acute appendicitis with localized peritonitis, without perforation, abscess, or gangrene- Primary Lymphadenopathy Enlargement of lymph nodes Lymphadenopathy Enlargement of lymph nodes documented in this encounter Care Teams Roll Press Operator Relationship Specialty Start Date End Date La Kearney MD [address] [place] [address] DR LUCAS [address] [place] [address] PCP - General Family Medicine 10/02/22 Mariaelena Zaidi MD Consulting Physician Sleep Medicine 07/12/21 documented as of this encounter
--- OUTSIDE RECORDS SUMMARY | 2024-09-17 14:02 | XMS_ITS | Encounter Summary ---
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
--- OUTSIDE RECORDS SUMMARY | 2024-09-17 14:02 | XMS_ITS | Encounter Summary ---
Author Organization [facility] Healthcare Address [address] [place] [address] Care Team Providers Care Social Work Specialist Name Role Phone Mariaelena Zaidi MD Unavailable La Kearney MD Primary Care Provide r Reason for Visit * Auth/Cert (Routine) Specialty Diagnoses / Procedures Referred By Contac t Referred To Contact Diagnoses Acute appendicitis with localized peritonitis, without perforation, abscess, or gangrene Status post appendectomy Acute appendicitis Procedures N/A Referral ID Status Reason Start Date Expiration Date Visits Re quested Visits Authorized [id number] 1 1 Encounter Details Date Type Department Care Team (Late st Contact Info) Description 10/07/2023 6:08 PM CRACKER OFF Anesthesia Event [facility] Operating Room [address] [place] [address] [place] [address] [facility] [address] [place] [address] Maura Fernandez MD [address] [facility] [address] [place] [address] Anesthesia Record Procedure Summary Procedure Name Responsible [...] RETRO-PERITONEAL BIOPSY; 08/11/24 (Retired LDA, Removed/Completed by [employer] with LDA Utility); 1213 (Retired LDA, Removed/Completed by [employer] with LDA Utility) 02/06/19 1307 by Ye [...] 1907; Abdomen; 08/11/24 (Retired LDA, Removed/Completed by [facility] with LDA Utility); 1213 (Retired LDA, Removed/Completed by [facility] with LDA Utility) 10/07/23 1907 by Eva [...] on file Legal Sex Male 8:02 AM CRACKER OFF Gender Identity Not on file Sexual Orientation Not on file documented as of this encounter OR Notes * Anesthesia Postprocedure Evaluation - Kole Marley CRNA - 10/07/2023 7:50 PM CST Patient: Jaden De La Torre Procedure Summary Date: 10/07/23 Room / Location: [address] OPERATING ROOM Anesthesia Start: 1807 Anesthesia [...] Nausea/Vomiting status: none No notable events documented. KER OFF * Anesthesia Procedure Notes - Kole Marley CRNA - 10/07/2023 6:27 PM CRACKER OFF Associated Order(s): Airway Airway Patient location: OR Urgency: elective Indications for airway management: anesthesia and airway protection Difficult airway: no Staff: Placed by: MANAGER CLINIC: Kole Marley CRNA Emergent airway documentation: Risks [...] extubation: yes Additional comments: Smooth, atraumatic intubation KER OFF * Anesthesia Preprocedure Evaluation - Aliya Berumen [...] 05/25/2020 Added automatically from request for surgery [id number] Sleep apnea Urinary retention Past Surgical History: [...] Medication protocol when under care of a MANAGER CLINIC Planned anesthesia: General Team communication plan: oral ET tube Induction: Induction: intravenous. Postoperative Plan: Postoperative administration opioids intended. No postoperative mechanical ventilation intended. Patient's planned disposition post procedure is Floor. Informed Consent: Discussed plan with attending and MANAGER CLINIC. Anesthesia plan and risks discussed with patient. Consent and Attending signature: I and/or my designee have discussed the anesthesia plan, benefits, possible alternatives, parental presence at time of induction (if indicated), and clinically relevant risks that may include dental injury, unintentional awareness, and/or other complications. The patient and/or parent/legal guardian understand, and agree to proceed. All questions answered. KER OFF documented in this encounter Plan of Treatment Not on file documented as of this encounter Procedures Procedure Name Priority Date/Time Associated Diagnosis Comments SD AN ELECTIVE ENDOTRACHEAL AIRWAY Routine 10/07/2023 6:27 PM CRACKER OFF documented in this encounter Results * SD AN ELECTIVE ENDOTRACHEAL AIRWAY (10/07/2023 6:27 PM CRACKER OFF) Narrative Kole Marley CRNA - 10/07/2023 6:27 PM CRACKER OFF Kole Marley CRNA ? 10/07/2023 ??6:28 PM [...] Prophylaxis, SurgicalIndications:Prophylaxis, Surgical Given 10/07/2023 6:25 PM CRACKER OFF 2,000 mg dexAMETHasone (DECADRON) 4 mg/mL injection intravenous, Administer over 2 Minutes, As needed, Starting on Sat10/07/23 at 1825, Anesthesia Intra-op Given 10/07/2023 6:25 PM CRACKER OFF 10 mg fentaNYL (SUBLIMAZE) preservative free injection intravenous, As needed, Starting on Sat10/07/23 at 1818, Anesthesia Intra-op Given 10/07/2023 7:31 PM CRACKER OFF 50 mcg Given 10/07/2023 6:18 PM CRACKER OFF 50 mcg ketamine (KETALAR) 50 mg/5 mL (10 mg/mL) in sodium chloride 0.9% (premix) intravenous, As needed, Starting on Sat10/07/23 at 1818, Anesthesia Intra-op Given 10/07/2023 6:18 PM CRACKER OFF 50 mg Lactated Ringer's (LR) infusion 30 mL/hr, intravenous, Continuous, Starting on Sat10/07/23 at 1745, Pre-Op Rate/Dose Verify 10/07/2023 6:08 PM CRACKER OFF 30 mL/hr New Bag 10/07/2023 5:17 PM CRACKER OFF 30 mL/hr 30 mL/hr lidocaine (XYLOCAINE) 20 mg/mL (2 %) preservative free injection intravenous, As needed, Starting on Sat10/07/23 at 1818, Anesthesia Intra-op Given 10/07/2023 6:18 PM CRACKER OFF 60 mg midazolam (VERSED) 1 mg/mL preservative free injection intravenous, Administer over 2 Minutes, As needed, Starting on Sat10/07/23 at 1806, Anesthesia Intra-op Given 10/07/2023 6:06 PM CRACKER OFF 2 mg ondansetron (ZOFRAN) injection intravenous, Administer over 2 Minutes, As needed, Starting on Sat10/07/23 at 1825, Anesthesia Intra-op Given 10/07/2023 6:25 PM CRACKER OFF 4 mg phenylephrine (MODE-SYNEPHRINE) injection intravenous, As needed, Starting on Sat10/07/23 at 1828, Anesthesia Intra-op Given 10/07/2023 6:28 PM CRACKER OFF 100 mcg propofoL (DIPRIVAN) 10 mg/mL IV intravenous, As needed, Starting on Sat10/07/23 at 1818, Anesthesia Intra-op New Bag 10/07/2023 6:18 PM CRACKER OFF 200 mg rocuronium (ZEMURON) injection intravenous, As needed, Starting on Sat10/07/23 at 1821, Anesthesia Intra-op Given 10/07/2023 6:27 PM CRACKER OFF 10 mg Given 10/07/2023 6:21 PM CRACKER OFF 40 mg succinylcholine (ANECTINE) injection intravenous, As needed, Starting on Sat10/07/23 at 1818, Anesthesia Intra-op Given 10/07/2023 6:18 PM CRACKER OFF 140 mg sugammadex (BRIDION) 100 mg/mL intravenous solution intravenous, As needed, Starting on Sat10/07/23 at 1908, Anesthesia Intra-op Given 10/07/2023 7:08 PM CRACKER OFF 200 mg documented in this encounter Care Teams Social Work Specialist Relationship Specialty Start Date End Date La Kearney MD [address] [place] [address] DR LUCAS [address] [place] [address] PCP - General Family Medicine 10/02/22 Mariaelena Zaidi MD Consulting Physician Sleep Medicine 07/12/21 documented as of this encounter
--- OUTSIDE RECORDS SUMMARY | 2024-09-17 14:02 | XMS_ITS | Encounter Summary ---
Author Organization [facility] Healthcare Address [address] [place] [address] Care Team Providers Care Fashion Merchandiser Name Role Phone Mariaelena Zaidi MD Unavailable La Kearney MD Primary Care Provide r Reason for Visit * Reason Comments PT Treatment * Consultation (Routine) - Closed Specialty Diagnoses / Procedures Referred By Contac t Referred To Contact Physical Therapy Diagnoses Neck pain Acute bilateral low back pain with sciatica, sciatica laterality unspecified La Kearney MD [address] [place] [address] Phone: tel: fax: [address] [phone] Referral ID Status Reason Start Date Expiration Date V isits Requested Visits Authorized [id number] Closed Evaluate and Treat 06/07/2023 07/06/2024 24 24 Encounter Details Date Type Department Care Team (Late st Contact Info) Description 07/08/2023 4:15 PM CDT Therapy [facility] Physical Therapy - [address] [place] [address] Jeanne Fox, PT Neck pain (Primary Dx); [...] on file 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
--- OUTSIDE RECORDS SUMMARY | 2024-09-17 14:02 | XMS_ITS | Encounter Summary ---
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 No [...] on filedocumented in this encounter Care Teams Convex Grinder Operator Relationship Specialty Start Date End Date La Kearney MD [address] [place] [address] [place] [address] PCP - General Family Medicine 10/02/22 Mariaelena Zaidi MD Consulting Physician Sleep Medicine 07/12/21 documented as of this encounter
--- OUTSIDE RECORDS SUMMARY | 2024-09-17 14:02 | XMS_ITS | Encounter Summary ---
Author Organization [facility] Healthcare Address [address] [place] [address] Care Team Providers Care Corporate Auditor Name Role Phone Mariaelena Zaidi MD Unavailable [...] Expiration Date Visits Re quested Visits Authorized [id number] 1 1 Encounter Details Date Type Department Care Team (Late st Contact Info) Description 10/07/2023 6:00 PM FRONT DESK PERSON - 10/07/2023 7:35 PM FRONT DESK PERSON Surgery [facility] Operating Room [address] [place] [address] Ramos Fraga MD [address] [place] [id number] LAPAROSCOPIC APPENDECTOMY Surgery Details Date/Time Status Location OR Service Patient Class Case Class Case Type Trauma Case? 10/07/2023 6:00 PM Posted [facility] OR General Surgery Inpatient Urgent [...] on file Legal Sex Male 8:02 AM FRONT DESK PERSON Gender Identity Not on file Sexual Orientation Not on file documented as of this encounter Last Filed Vital Signs Vital Sign Reading Time Taken Comments Blood Pressure 131/75 10/07/2023 7:35 PM FRONT DESK PERSON Pulse 70 10/07/2023 7:35 PM FRONT DESK PERSON Temperature 36.5 ??C (97.7 ??F) 10/07/2023 7:33 PM CS T Respiratory Rate 20 10/07/2023 7:35 PM FRONT DESK PERSON Oxygen Saturation 99% 10/07/2023 7:35 PM FRONT DESK PERSON Inhaled Oxygen Concentration - - Weight 124.7 kg (275 lb) 10/07/2023 3:30 PM FRONT DESK PERSON Height 188 cm (6' 2 ) 10/07/2023 3:30 PM FRONT DESK PERSON Body Mass Index 35.31 10/07/2023 8:17 PM FRONT DESK PERSON documented in this encounter Discharge Summaries * Charissa Mcdonald NP - 10/08/2023 1:30 PM CST Inpatient Discharge Summary BRIEF OVERVIEW Admitting Provider: Ramos Fraga MD Discharge Provider: Ramos Fraga MD Primary Care Physician at Discharge: La Núñez MD [phone] Admission Date: 10/07/2023 Discharge Date: 10/08/2023 Admission Location: [facility] Problems/Diagnoses: Principal Problem: Status post appendectomy [...] 1 week, Please call office for appointment [phone] 8. Diet, until follow up: regular 9. Strip and record your ECLIO drain output daily Discharge Medications: Current Medications [...] Ramos Fraga MD at 10/08/2023 4:13 PM FRONT DESK PERSON T DESK PERSON T DESK PERSON documented in this encounter Discharge Instructions * Discharge Instructions* Mireille Moura RN - 10/08/2023 2:01 PM FRONT DESK PERSON THANK YOU for choosing our team to provide your health care. Your HEALTH AND SAFETY are important to us. We hope you feel your care on SCU is ALWAYS EXCELLENT! Please call [facility] at [phone] if you have any questions regarding your care. Wishing you continued improvement during your recovery. Your Surgical Care Unit Team Mireille Camara Dana, Denise, Nancy, Peggy, Samantha, Megan, Stacy, Debbie, Dory, Lamika, Kelly, Terrie, Shahla, Lisseth, Annia, Keshia Tang Angie, Melanie, Sweetie, Dayanara Christopher. T DESK PERSON * Attachments The following attachments cannot be sent through Care Everywhere. * Appendicitis (Discharge Care) (Mozambican) * Obed-Malhotra Drain Care (Discharge Care) (Mozambican) * Laxative, Stool Softeners (By mouth) (Mozambican) * Ondansetron (By mouth, Into the mouth) (Mozambican) * Hydrocodone/Acetaminophen (By mouth) (Mozambican) documented in this encounter Medications at Time of Discharge tadalafiL (CIALIS) 20 mg tabletIndications:E rectile dysfunction due to arterial insufficiency Take 1 tablet (20 mg total) by mouth daily as needed for erectile dysfunction Max 1 daily. 20 tablet 3 01/29/2023 buPROPion XL (WELLBUTRIN XL) 300 mg 24 hr tablet TAKE 1 TABLET EVERY MORNING 100 tablet 09/09/2023 12/09/19 24 lisinopriL (PRINIVIL,ZESTRIL) 5 mg tabletIndications:E ssential hypertension TAKE 1 TABLET NIGHTLY 100 tablet 09/09/2023 01/31/20 24 metoprolol XL (TOPROL-XL) 50 mg extended release tablet Take 1 tablet (50 mg total) by mouth nightly 09/09/2023 02/18/20 24 pramipexole (MIRAPEX) 1.5 mg tabletIndications:R estless legs syndrome Take 1 tablet (1.5 mg total) by mouth 3 (three) times a day 90 tablet 1 06/10/2023 12/04/19 24 pravastatin (PRAVACHOL) 40 mg tabletIndications:H yperlipidemia, unspecified hyperlipidemia type Take 1 tablet (40 mg total) by mouth daily 30 tablet 10/01/2023 12/27/19 24 HYDROcodone-acetami nophen (NORCO) 5-325 mg per [...] 14 days 30 tablet 10/08/2023 10/22/19 24 docusate sodium (COLACE) 100 mg capsuleIndications: constipation Take 1 capsule (100 mg total) by mouth 2 (two) times a day for 14 days 28 capsule 10/08/2023 04/14/20 24 oxybutynin XL (Ditropan XL) 10 mg [...] Pain is well controlled. 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 Ramos Fraga MD 4:01 PM 10/07/2023 T DESK PERSON documented in this encounter ED Notes * [...] 05/25/2020 Added automatically from request for surgery [id number] ??? Sleep apnea ??? Urinary retention Past [...] Electronically signed by Ziggy Almaguer M.D. [facility]: [facility] Medical Decision Making Amount and/or Complexity of Data Reviewed Labs: ordered. Risk Prescription drug management. ED Course as of 10/07/23 1553 Time: 10/07 1551 Comment: Discussed with Dr Berrios will take him to [place]. By: Sukhwinder Sanchez MD Final diagnoses: Acute appendicitis with localized peritonitis, without perforation, abscess, or gangrene Sukhwinder Sanchez MD 10/07/23 1551 T DESK PERSON * Tigist Coronado RN - 10/07/2023 3:29 PM CST Patient presents to the Ed with complaints of abdominal pain since this morning, went to his pcp and had a CT scan and sent here for appendicitis T DESK PERSON documented in this encounter Miscellaneous Notes * [...] up independently, and has no other complaints T DESK PERSON * Initial Assessments - Denice Clark RN - 10/08/2023 11:40 AM CST CM Low Risk Discharge Planning Assessment Note Primary Care Provider: La Núñez MD Preferred Pharmacy: [id number] - [place], [place] - [address] [facility] [address] [facility] [address] [facility] - [place], [place] - [address] [facility] [address] [facility] [address] [facility] - [place], [place] - [address] [facility] [address] [facility] [address] Who does the patient or legal guardian [...] a CPAP and gets his supplies thru [employer]. Had a lap appy on10/07. Barrier to dc is recovery after surgery. No home needs noted at this time. Denice Clark RN Phone Number: T DESK PERSON * Plan of Care - Chayito Horta [...] addressed with PRN medication as per order. T DESK PERSON * Op Note - Ramos Fraga MD - 10/07/2023 6:29 PM CST NAME: Jaden Clement DATE OF : 1970 SURGEON: Ramos Fraga MD HIMS CODER:Nursing Service Administrator: Eva Barboza RN Scrub: Tawnya Packer RN MEMBER OF THE LEGISLATIVE ASSEMBLY: Eufemia Camp RN FLOAT: Eleni Solorio ST [...] to be hemostatic.At this time a 10 Kiswahili flat CELIO drain was left over the staple line given the inflammation of the cecum. It was brought through the suprapubic port site and secured in place with a 3-0 nylon stitch.Remaining trocars were removed and pneumoperitoneum evacuated. The fascia of the left lower quadrant trocar was closed with a [id number] 0 Vicryl stitch. The skin of all [...] Appendix Ramos Fraga MD 10/07/2023 7:29 PM T DESK PERSON documented in this encounter Plan of Treatment Not on file documented as of this encounter Procedures Procedure Name Priority Date/Time Associated Diagnosis Comments EGFR Routine 10/08/2023 6:54 AM FRONT DESK PERSON CBC WITHOUT DIFFERENTIAL Routine 10/08/2023 6:54 AM FRONT DESK PERSON PHOSPHORUS Routine 10/08/2023 6:54 AM FRONT DESK PERSON MAGNESIUM Routine 10/08/2023 6:54 AM FRONT DESK PERSON BASIC METABOLIC PANEL Routine 10/08/2023 6:54 AM FRONT DESK PERSON LAPAROSCOPIC APPENDECTOMY 10/07/2023 5:53 PM FRONT DESK PERSON Acute appendicitis EGFR STAT 10/07/2023 3:44 PM FRONT DESK PERSON DIFFERENTIAL AUTO STAT 10/07/2023 3:4 4 PM FRONT DESK PERSON URINALYSIS AND REFLEX TO MICROSCOPIC AND CULTURE STAT 10/07/2023 3:44 PM FRONT DESK PERSON CBC WITH AUTO DIFFERENTIAL STAT 10/07/2023 3:44 PM FRONT DESK PERSON URINALYSIS, MICROSCOPIC ONLY STAT 10/07/2023 3:44 PM FRONT DESK PERSON PROTIME-INR STAT 10/07/2023 3:44 PM FRONT DESK PERSON URINE CULTURE STAT 10/07/2023 3:44 PM FRONT DESK PERSON COMPREHENSIVE METABOLIC PANEL STAT 10/07/2023 3:44 PM FRONT DESK PERSON SURGICAL PATHOLOGY Routine 10/07/2023 11 :06 AM FRONT DESK PERSON Acute appendicitis, unspecified acute appendicitis type documented in this encounter Results * eGFR (10/08/2023 6:54 AM FRONT DESK PERSON) eGFR 78 mL/min/1. 73 m2 [facility] [...] last reviewed 2021. Blood 10/08/2023 6:54 AM FRONT DESK PERSON 10/08/2023 7:11 AM FRONT DESK PERSON us Ramos Fraga MD LAB BLOOD ORDERA BLES Final Result [facility] ([place]) 1 [facility] Department of Laboratories [place], [place] [id number] * (ABNORMAL) CBC without differential (10/08/2023 6:54 AM FRONT DESK PERSON) WBC 9.9 3.8 - 9.9 K/cumm [facility] [...] [facility] ([place]) Blood 10/08/2023 6:54 AM FRONT DESK PERSON 10/08/2023 7:11 AM FRONT DESK PERSON Ramos Fraga MD LAB BLOOD ORDERA BLES Final Result [facility] ([place]) 1 [facility] [place] [address] * Phosphorus (10/08/2023 6:54 AM FRONT DESK PERSON) Phosphorus, pl 3.2 2.3 - 4.5 mg/dL [facility] ([place] Blood 10/08/2023 6:54 AM FRONT DESK PERSON 10/08/2023 7:11 AM FRONT DESK PERSON Ramos Fraga MD LAB BLOOD ORDERA BLES Final Result Performing Organization Address City/[facility]/ZIP Co de Phone Number [facility] ([place]) 1 [facility] [place] [place] [address] * Magnesium (10/08/2023 6:54 AM FRONT DESK PERSON) Magnesium 2.1 1.4 - 2.5 mg/dL [facility] ([place]) Blood 10/08/2023 6:54 AM FRONT DESK PERSON 10/08/2023 7:11 AM FRONT DESK PERSON Ramos Fraga MD LAB BLOOD ORDERA BLES Final Result [facility] ([place]) 1 [facility] [place] [place] [address] * (ABNORMAL) Basic metabolic panel (10/08/2023 6:54 AM FRONT DESK PERSON) Sodium 133(L) 135 - 145 mmol/L [facility] ([place]) Potassium, pl 5.0(H) 3.3 - 4.9 mmol/L [facility] ([place]) Chloride 101 97 - 110 mmol/L [facility] ([place]) CO2 22 22 - 32 mmol/L [facility] ([place]) Anion gap 11 2 - 15 mmol/L [facility] ([place]) BUN 16 6 - 25 mg/dL [facility] ([place]) Creatinine 1.11 0.80 - 1.30 mg/dL [facility] ([place]) Glucose 165 70 - 199 mg/dL [facility] ([place]) Comment: Interpretive Data Fasting glucose >/= [...] 2022. Calcium 9.0 8.5 - 10.3 mg/dL [facility] ([place]) Blood 10/08/2023 6:54 AM FRONT DESK PERSON 10/08/2023 7:11 AM FRONT DESK PERSON us Ramos Fraga MD LAB BLOOD ORDERA ROSES Final Result [facility] ([place]) 1 [facility] [place] [address] * eGFR (10/07/2023 3:44 PM FRONT DESK PERSON) eGFR 88 mL/min/1. 73 m2 [facility] ([place]) Comment: Interpretive Data Reference Interval Normal [...] last reviewed 2021. Blood 10/07/2023 3:44 PM FRONT DESK PERSON 10/07/2023 3:50 PM FRONT DESK PERSON Sukhwinder Sanchez MD LAB BLOOD ORDERABLES Final Res ult [facility] ([place]) 1 [facility] [place] [address] * Urine culture Urine (10/07/2023 3:44 PM FRONT DESK PERSON) Report Final Report: Less than 100,000 colonies/mL (clinically insignificant growth based on current clinical standards) [facility] ([place]) Comment:Testing performed by : [facility], 1 [facility] [place]., [address] Organism (CLINICALLY INSIGNIFICANT GROWTH [facility] ([place]) Urine 10/07/2023 3:44 PM FRONT DESK PERSON 10/07/2023 8:47 PM FRONT DESK PERSON Narrative [facility] ([place]) - 10/09/2023 7:56 AM FRONT DESK PERSON Urine culture reflexed based upon urinalysis results. Testing performed by [facility] Microbiology Laboratory ([phone]) Sukhwinder Sanchez MD LAB MICROBIOLOGY - GENERAL ORD ERABLES Final Result Performing Organization Address [facility] Co de Phone Number [facility] ([place]) 1 [facility] [place] [address] * (ABNORMAL) Urinalysis, microscopic only (10/07/2023 3:44 PM FRONT DESK PERSON) WBC, ur 11-20(A) 0 - 5 /HPF [facility] ([place]) RBC, ur 0-2 0 - 2 /HPF [facility] ([place]) Epithelial cells, squamous, ur 1-5 0 - 5 /HPF [facility] ([place]) Mucous, ur Present(A) [facility] ([place]) Culture Reflex Comment Reflex to urine culture will be performed. [facility] ([place]) Urine 10/07/2023 3:44 PM FRONT DESK PERSON 10/07/2023 3:50 PM FRONT DESK PERSON Sukhwinder Sanchez MD LAB URINE ORDERABLES Final Res ult Performing Organization Address City/[facility]/ZIP Co de Phone Number [facility] ([place]) 1 [facility] [place] [address] * Differential, auto (10/07/2023 3:44 PM FRONT DESK PERSON) Neutrophil abs 6.5 1.5 - 6.5 K/cumm [...] on 2017. Basophil pct 0.5 % [facility] ([place]) Comment: Interpretive Data Percent cell count reference ranges are not reported, since discordance with absolute values may lead to misinterpretation of CBC data. Current Interpretive Data was last revised on 2017. Blood 10/07/2023 3:44 PM FRONT DESK PERSON 10/07/2023 3:50 PM FRONT DESK PERSON us Sukhwinder Sanchez MD LAB BLOOD ORDERABLES Final Res ult [facility] ([place]) 1 [facility] Department of Laboratories [place], [place] [id number] * (ABNORMAL) Urinalysis reflex to microscopic and culture Urine (10/07/2023 3:44 PM FRONT DESK PERSON) Color, ur Yellow Yellow [facility] ([place]) Clarity, ur Clear Clear [facility] ([place]) Specific gravity, ur 1.030 1.003 - 1.030 [...] acid stone formation. Source: [facility] [employer] Current Interpretive Data was last revised on [...] [facility] ([place]) Urine 10/07/2023 3:44 PM FRONT DESK PERSON 10/07/2023 3:50 PM FRONT DESK PERSON Sukhwinder Sanchez MD LAB MICROBIOLOGY - GENERAL ORD ERABLES Final Result [facility] ([place]) 1 [facility] [place] [address] * Protime-INR (10/07/2023 3:44 PM FRONT DESK PERSON) PT 11.7 10.3 - 13.7 sec [facility] ([place]) INR 1.03 0.90 - 1.20 [facility] ([place]) Comment: Interpretive data Oral anticoagulant therapeutic ranges: Venous thromboembolism prophylaxis or treatment: 2.0-3.0 CARDIOLOGY Standard range: 2.0-3.0 High-intensity range: 2.5-3.5 Refer to indication-specific guidelines for appropriate target ranges for prosthetic heart valve replacement. Current interpretive data was last revised on 2019. Blood 10/07/2023 3:44 PM FRONT DESK PERSON 10/07/2023 3:50 PM FRONT DESK PERSON us Sukhwinder Sanchez MD LAB BLOOD ORDERABLES Final Res ult [facility] ([place]) 1 [facility] [place] [address] * Comprehensive metabolic panel (10/07/2023 3:44 PM FRONT DESK PERSON) Sodium 135 135 - 145 mmol/L [facility] [...] Hemolyzed S pecimen Blood 10/07/2023 3:44 PM FRONT DESK PERSON 10/07/2023 3:50 PM FRONT DESK PERSON us Sukhwinder Sanchez MD LAB BLOOD ORDERABLES Final Res ult Performing Organization Address City/[facility]/ZIP Co de Phone Number [facility] ([place]) 1 [facility] [place] [address] * CBC with auto differential (10/07/2023 3:44 PM FRONT DESK PERSON) WBC 9.3 3.8 - 9.9 K/cumm [facility] [...] [facility] ([place]) Blood 10/07/2023 3:44 PM FRONT DESK PERSON 10/07/2023 3:50 PM FRONT DESK PERSON us Sukhwinder Sanchez MD LAB BLOOD ORDERABLES Final Res ult [facility] ([place]) 1 [facility] [place] [address] * Surgical pathology (10/07/2023 11:06 AM FRONT DESK PERSON) Tissue (Appendix) 10/07/2023 6:32 PM FRONT DESK PERSON Narrative PATHOLOGY [facility] ([place]) - 10/09/2023 5:30 PM FRONT DESK PERSON EPIC results best viewed via link to PDF [facility] Department of Pathology [address] [place] [id number] Note to Patients: This report may contain [...] Report Patient Name: ??RACQUEL JADEN Condon Address: ??[address] [place] [address], ??[place], [place] [address] Gender: ??M : ??1970 (Age: 53) Service: ??Surgery Location: ??[facility] Hospital #: ??[id number] Patient Type: ??[facility] OBS Accession # ?[id number] Taken: ??10/07/2023 Received: ??10/08/2023 Accessioned: ??10/08/2023 Reported: [...] ??No muscular wall perforation is seen grossly. ??Electronic Prepress Operator sections are submitted: ??Tip A1, mid section [...] determined by the Surgical Pathology Department at [facility] as part of an ongoing plant quality manager program and in compliance with [...] characteristics determined by the Surgical Pathology Department [facility]. ??It has not been cleared or approved by the U. S. Food and Drug Administration. Note for decalcified specimens: This assay has not been validated on decalcified tissues. Results should be interpreted with caution given the possibility of false negativity on decalcified specimens Ramos Fraga MD LAB PATHOLOGY OR DERABLES Final Result PATHOLOGY [facility] [place]) 1 [place] [address] documented in this encounter Visit Diagnoses Not [...] at 1829, Intra-Op Given 10/07/2023 6:29 PM FRONT DESK PERSON 5 mL Surgical Site buPROPion XL (WELLBUTRIN XL) 24 hour tablet 300 mg 300 mg, oral, Every morning, First dose on Sat10/08/23 at 0900, Do not crush, chew, cut, dissolve, open or otherwise manipulate tablet/capsule. Given 10/08/2023 9:10 AM FRONT DESK PERSON 300 mg docusate sodium (COLACE) capsule 100 mg 100 mg, oral, 2 times daily, First dose on Sat10/07/23 at 2100, Indications: constipationIndications:con stipation Given 10/08/2023 9:10 AM FRONT DESK PERSON 100 mg Given 10/07/2023 10:10 PM FRONT DESK PERSON 100 mg enoxaparin (LOVENOX) syringe 40 mg 40 mg, subcutaneous, Daily (for enoxaparin), First dose on Sat10/07/23 at 2100, Indications: Deep Vein Thrombosis PreventionIndications:Deep Vein Thrombosis Prevention Given 10/07/2023 10:10 PM FRONT DESK PERSON 40 mg Left Lower Abdomen fentaNYL (SUBLIMAZE) [...] more., Indications: PainIndications:Pain Given 10/07/2023 7:56 PM FRONT DESK PERSON 25 mcg Given 10/07/2023 7:46 PM FRONT DESK PERSON 25 mcg HYDROcodone-acetaminophen (NORCO) 5-325 mg per tablet 1 tablet 1 tablet, oral, Every 4 hours PRN, 1st line for pain, Starting on Sat10/08/23 at 0905, Indications: PainIndications:Pain Given 10/08/2023 1:28 PM FRONT DESK PERSON 1 tablet Given 10/08/2023 9:10 AM FRONT DESK PERSON 1 tablet HYDROmorphone (DILAUDID) injection 1 mg 1 mg, intravenous, Administer over 2 Minutes, Every 2 hours PRN, pain 7-10, Starting on Sat10/07/23 at 2017 Given 10/08/2023 5:32 AM FRONT DESK PERSON 1 mg Given 10/08/2023 3:02 AM FRONT DESK PERSON 1 mg Given 10/07/2023 11:57 PM FRONT DESK PERSON 1 mg Lactated Ringer's (LR) infusion 30 mL/hr, intravenous, Continuous, Starting on Sat10/07/23 at 1745, Pre-Op Rate/Dose Verify 10/07/2023 6:08 PM FRONT DESK PERSON 30 mL/hr New Bag 10/07/2023 5:17 PM FRONT DESK PERSON 30 mL/hr 30 mL/hr Lactated Ringer's (LR) infusion 75 mL/hr, intravenous, Continuous, Starting on Sat10/07/23 at 2100 New Bag 10/07/2023 8:30 PM FRONT DESK PERSON 75 mL/hr 75 mL/hr lisinopriL (PRINIVIL,ZESTRIL) tablet 5 mg 5 mg, oral, Nightly, First dose on Sat10/07/23 at 2100 Given 10/07/2023 10:10 PM FRONT DESK PERSON 5 mg metoprolol XL (TOPROL-XL) extended release tablet 50 mg 50 mg, oral, Nightly, First dose on Sat10/07/23 at 2100, Tablets that are scored may be split, but do not crush, chew, dissolve, open or otherwise manipulate tablet/capsule. Given 10/07/2023 10:10 PM FRONT DESK PERSON 50 mg ondansetron (ZOFRAN) injection 4 mg 4 mg, intravenous, Administer over 2 Minutes, Every 6 hours PRN, nausea, vomiting, Starting on Sat10/07/23 at 2016, Indications: Nausea and VomitingIndications:Nausea and Vomiting Given 10/08/2023 5:41 AM FRONT DESK PERSON 4 mg Given 10/07/2023 8:48 PM FRONT DESK PERSON 4 mg piperacillin-tazobactam (ZOSYN) 3.375 gram/65 mL in sodium chloride 0.9% (premix) 3.375 g 3.375 g, intravenous, at 130 mL/hr, Administer over 30 Minutes, Every 6 hours scheduled, First dose on Sat10/07/23 at 1615, Indications: Abdominal/Pelvic InfectionIndications:Abdominal/Pel monique Infection New Bag 10/08/2023 5:35 AM FRONT DESK PERSON 3.375 g 130 mL/hr New Bag 10/07/2023 11:32 PM FRONT DESK PERSON 3.375 g 130 mL/hr New Bag 10/07/2023 4:31 PM FRONT DESK PERSON 3.375 g 130 mL/hr pramipexole (MIRAPEX) tablet 1.5 mg 1.5 mg, oral, 3 times daily, First dose on Sat10/07/23 at 2200 Given 10/08/2023 9:10 AM FRONT DESK PERSON 1.5 mg Given 10/07/2023 10:10 PM FRONT DESK PERSON 1.5 mg sodium chloride 0.9% infusion 125 mL/hr, intravenous, Continuous, Starting on Sat10/07/23 at 1542 New Bag 10/07/2023 4:14 PM FRONT DESK PERSON 125 mL/hr 125 mL/hr sodium chloride 0.9% irrigation As needed, Starting on Sat10/07/23 at 1829, Intra-Op Given 10/07/2023 6:39 PM FRONT DESK PERSON 1,000 mL Surgical Site Given 10/07/2023 6:29 PM FRONT DESK PERSON 500 mL [place] rgical Site documented in [...] Recently Administered Medications Times are shown in FRONT DESK PERSON. 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
--- OUTSIDE RECORDS SUMMARY | 2024-09-17 14:02 | XMS_ITS | Encounter Summary ---
Author Organization [facility] Healthcare Address [address] [place] [address] Care Team Providers Care Production Estimator Name Role Phone Mariaelena Zaidi MD Unavailable La Kearney MD Primary Care Provide r Reason for Visit * Reason Comments Hypertension Encounter Details Date Type Department Care Team (Late st Contact Info) Description 08/08/2023 8:30 AM WATERWORKS OPERATOR Office Visit [facility] Medical Group Primary Care at [address] [place] [address] Thais Burt, UNIX ANALYST [address] [place] [address] Encounter for follow-up examination after completed treatment [...] on file Legal Sex Male 8:02 AM WATERWORKS OPERATOR Gender Identity Not on file Sexual Orientation Not on file documented as of this encounter Last Filed Vital Signs Vital Sign Reading Time Taken Comments Blood Pressure 108/70 08/08/2023 8:46 AM WATERWORKS OPERATOR Pulse 71 08/08/2023 8:14 AM WATERWORKS OPERATOR Temperature - - Respiratory Rate 16 08/08/2023 8:14 AM WATERWORKS OPERATOR Oxygen Saturation 96% 08/08/2023 8:14 AM WATERWORKS OPERATOR Inhaled Oxygen Concentration - - Weight 126 kg (277 lb 12.8 oz) 08/08/2023 8:14 A M WATERWORKS OPERATOR Height 188 cm (6' 2.02 ) 08/08/2023 8:14 AM WATERWORKS OPERATOR Body Mass Index 35.65 08/08/2023 8:14 AM WATERWORKS OPERATOR documented in this encounter Patient Instructions * Patient Instructions* Thais Burt NP - 08/08/2023 8:30 AM WATERWORKS OPERATOR My vp medical,Laura, and I are thankful you have trusted [...] the counter use as directed for itching RWORKS OPERATOR RWORKS OPERATOR documented in this encounter Progress Notes * [...] Rate: 108 bpm RR Interval: 553 msec MO Interval: 163 msec QRS Duration: 97 msec QT Interval: 383 msec QTC Interval: 446 msec P-R-T [place]: 46 - 2 - 13 degrees IMPRESSION: SINUS TACHYCARDIA WITH FREQUENT SUPRAVENTRICULAR PREMATURE COMPLEXES Compared to prior EKG, heart rate is now faster and PVCs are new. (Electronically Signed By: Dr Anoop Pablo) ECG: Vent Rate: 66 bpm RR Interval: 898 msec MO Interval: 170 msec QRS Duration: 99 msec QT Interval: 399 msec QTC Interval: 413 msec P-R-T [place]: 45 - 14 - 29 degrees IMPRESSION: [...] ECG tracings from patient recent visit to [facility]. Medications reviewed and reconciled this visit Essential [...] Rate: 108 bpm RR Interval: 553 msec MO Interval: 163 msec QRS Duration: 97 msec QT Interval: 383 msec QTC Interval: 446 msec P-R-T [place]: 46 - 2 - 13 degrees IMPRESSION: SINUS TACHYCARDIA WITH FREQUENT SUPRAVENTRICULAR PREMATURE COMPLEXES Compared to prior EKG, heart rate is now faster and PVCs are new. (Electronically Signed By: Dr Anoop Pablo) ECG: Vent Rate: 66 bpm RR Interval: 898 msec MO Interval: 170 msec QRS Duration: 99 msec QT Interval: 399 msec QTC Interval: 413 msec P-R-T [place]: 45 - 14 - 29 degrees IMPRESSION: [...] in agreement with the plan of care. RWORKS OPERATOR documented in this encounter Miscellaneous Notes * Assessment & Plan Note - Thais Burt NP - 08/08/2023 4:06 PM WATERWORKS OPERATOR Associated Problem(s): Encounter for follow-up examination after completed treatment for conditionsother than malignant neoplasm (Resolved 05/22/2024) I personally reviewed H&P documentation by ED provider, CXR imaging, and ECG tracings from patient recent visit to [facility]. Medications reviewed and reconciled this visit RWORKS OPERATOR * Assessment & Plan Note - Thais Burt NP - 08/08/2023 4:00 PM WATERWORKS OPERATOR Associated Problem(s): Intermittent palpitations Acute problem- this is a recurring problem Seen in ED for intermittent palpations Follow up with cardiology as scheduled Continue to monitor ECG: Vent Rate: 108 bpm RR Interval: 553 msec MO Interval: 163 msec QRS Duration: 97 msec QT Interval: 383 msec QTC Interval: 446 msec P-R-T [place]: 46 - 2 - 13 degrees IMPRESSION: SINUS TACHYCARDIA WITH FREQUENT SUPRAVENTRICULAR PREMATURE COMPLEXES Compared to prior EKG, heart rate is now faster and PVCs are new. (Electronically Signed By: Dr Anoop Pablo) ECG: Vent Rate: 66 bpm RR Interval: 898 msec MO Interval: 170 msec QRS Duration: 99 msec QT Interval: 399 msec QTC Interval: 413 msec P-R-T [place]: 45 - 14 - 29 degrees IMPRESSION: SINUS RHYTHM WITH OCCASIONAL SUPRAVENTRICULAR PREMATURE COMPLEXES POSSIBLE LEFT ATRIAL ENLARGEMENT [-0.1mV P-WAVE IN V1/V2] Compared to prior EKG, PACs are now less frequent. ( RWORKS OPERATOR * Assessment & Plan Note - Thais Burt NP - 08/08/2023 3:44 PM WATERWORKS OPERATOR Associated Problem(s): Essential hypertension Chronic problem-controlled with current regimen Continue metoprolol XL 25 mg daily Continue Metoprolol tartrate 25 mg- take half tablet (12.5 mg) daily prn BP this visit 108/62 Recommend DASH diet, heart-healthy lifestyle, exercise. Discussed the risks of hypertension. Continue to monitor RWORKS OPERATOR RWORKS OPERATOR documented in this encounter Plan of Treatment Not on file documented as of this encounter Visit Diagnoses Diagnosis Encounter for follow-up examination after completed treatment for conditions other than malignant neoplasm- Primary Essential hypertension Unspecified essential hypertension Intermittent palpitations documented in this encounter Care Teams Production Estimator Relationship Specialty Start Date End Date La Kearney MD [address] [place] [address] [address] PCP - General Family Medicine 10/02/22 Mariaelena Zaidi MD Consulting Physician Sleep Medicine 07/12/21 documented as of this encounter
--- OUTSIDE RECORDS SUMMARY | 2024-09-17 14:02 | XMS_ITS | Encounter Summary ---
Author Organization [facility] Healthcare Address [address] [place] [address] Care Team Providers Care Ballast Inspector Name Role Phone Mariaelena Zaidi MD Unavailable La Kearney MD Primary Care Provide r Reason for Visit * Reason Comments Abdominal Pain He is here today bec ause he has been having lower right side abdominal pain, still has his appendix Encounter Details Date Type Department Care Team (Late st Contact Info) Description 10/07/2023 1:00 PM EQUIPMENT PLANNER Office Visit [facility] Medical Group Primary Care at [address] [place] [address] La Kearney MD [address] [place] [address] [address] [place] [address] Right lower quadrant abdominal pain [...] on file Legal Sex Male 8:02 AM EQUIPMENT PLANNER Gender Identity Not on file Sexual Orientation Not on file documented as of this encounter Last Filed Vital Signs Vital Sign Reading Time Taken Comments Blood Pressure 118/62 10/07/2023 12:54 PM EQUIPMENT PLANNER Pulse 84 10/07/2023 12:54 PM EQUIPMENT PLANNER Temperature - - Respiratory Rate - - Oxygen Saturation 95% 10/07/2023 12:54 PM EQUIPMENT PLANNER Inhaled Oxygen Concentration - - Weight 127.5 kg (281 lb) 10/07/2023 12:54 PM EQUIPMENT PLANNER Height 188 cm (6' 2 ) 10/07/2023 12:54 PM EQUIPMENT PLANNER Body Mass Index 36.08 10/07/2023 12:54 PM EQUIPMENT PLANNER documented in this encounter Patient Instructions * Patient Instructions* La Kearney MD - 10/07/2023 1:00 PM EQUIPMENT PLANNER My hospital medical assistant and I are thankful you [...] were not feeling your best! -Dr. Kearney PMENT PLANNER documented in this encounter Progress Notes * [...] the plan of care. La Kearney MD PMENT PLANNER documented in this encounter Miscellaneous Notes * Assessment & Plan Note - La Kearney MD - 10/07/2023 1:20 PM EQUIPMENT PLANNER Associated Problem(s): Right lower quadrant abdominal pain New concern Not at goal Will get ct of the abdomen to rule out appendicitis and to evaluate the gall bladder Low suspicion that it is a kidney stone that migrated but will get a ct scan anyway F/u pending results Instructed to report the ED for worsening symptoms PMENT PLANNER documented in this encounter Plan of Treatment Not on file documented as of this encounter Visit Diagnoses Diagnosis Right lower quadrant abdominal pain- Primary documented in this encounter Care Teams Ballast Inspector Relationship Specialty Start Date End Date La Kearney MD [address] [place] [address] DR LUCAS [address] [place] [phone] PCP - General Family Medicine 10/02/22 Mariaelena Zaidi MD Consulting Physician Sleep Medicine 07/12/21 documented as of this encounter
--- OUTSIDE RECORDS SUMMARY | 2024-09-17 14:02 | XMS_ITS | Encounter Summary ---
Author Organization [facility] Healthcare Address [address] [place] [address] Care Team Providers Care Summer Internship Name Role Phone Mariaelena Zaidi MD Unavailable La Núñez MD Primary Care Provide r Reason for Referral * Diagnostic Imaging (Routine) - Closed Specialty Diagnoses / Procedures Referred By Zaida camacho Referred To Contact Radiology Diagnoses RLQ abdominal pain Procedures CT Abdomen Pelvis WO Contrast La Núñez MD [address] [place] [address] Phone: tel: fax: [address] [phone] Referral ID Status Reason Start Date Expiration Date Visits Re quested Visits Authorized [id number] Closed 10/07/2023 11/05/2024 1 1 IER GENERAL Reason for Visit * Auth/Cert (Routine) Specialty Diagnoses / Procedures Referred By Zaida camacho Referred To Contact Diagnoses Acute appendicitis with localized peritonitis, without perforation, abscess, or gangrene Status post appendectomy Acute appendicitis Procedures N/A Referral ID Status Reason Start Date Expiration Date Visits Re quested Visits Authorized [id number] 1 1 Encounter Details Date Type Department Care Team (Latest Contact Info) Description 10/07/2023 2:08 PM CASHIER GENERAL - 10/07/2023 11:59 PM CASHIER GENERAL Hospital Encounter [facility] [address] [place] [address] RLQ abdominal pain Discharge Disposition: Discharge to [...] on file Legal Sex Male 8:02 AM CASHIER GENERAL Gender Identity Not on file Sexual Orientation [...] (Appt Today, Awaiting Results) 10/07/2023 2:40 PM CASHIER GENERAL RLQ abdominal pain documented in this encounter Results * CT Abdomen Pelvis WO Contrast (10/07/2023 2:40 PM CASHIER GENERAL) Anatomical Region Laterality Modality Body N/A Computed Tomogra phy 10/07/2023 2:50 PM CASHIER GENERAL Narrative 10/07/2023 3:06 PM CASHIER GENERAL EXAM DESCRIPTION: ?? CT ABDOMEN PELVIS WO [...] PM T: ??10/07/2023 3:06 PM Report ID: [id number] Reading Location: ??[id number] Procedure Note Ziggy Almaguer Jr., MD - [...] Ziggy Almaguer M.D. CH: SWETHA Report ID: [id number] Reading Location: [place] [address] La Núñez MD IMG CT PROCEDURES Fin al Result documented in this encounter Visit Diagnoses Diagnosis RLQ abdominal pain Abdominal pain, right lower quadrant documented in this encounter Care Teams Summer Internship Relationship Specialty Start Date End Date La Núñez MD [address] [place] [address] [address] PCP - General Family Medicine 10/02/22 Mariaelena Zaidi MD Consulting Physician Sleep Medicine 07/12/21 documented as of this encounter
--- OUTSIDE RECORDS SUMMARY | 2024-09-17 14:02 | XMS_ITS | Encounter Summary ---
Author Organization [facility] Healthcare Address [address] [place] [address] Care Team Providers Care Analysis Director Name Role Phone Mariaelena Zaidi MD Unavailable La Kearney MD Primary Care Provide r Reason for Visit * Reason Comments Palpitations Encounter Details Date Type Department Care Team (Late st Contact Info) Description 07/28/2023 8:54 PM TRAVEL OT - 07/29/2023 12:43 AM TRAVEL OT Emergency [facility] Department [address] [place] [address] Kole Devries MD [address] [place] [phone] Berenice South MD [address] [place] [phone] Palpitations (Primary Dx) Discharge Disposition: Discharge to [...] on file Legal Sex Male 8:02 AM TRAVEL OT Gender Identity Not on file Sexual Orientation Not on file documented as of this encounter Last Filed Vital Signs Vital Sign Reading Time Taken Comments Blood Pressure 122/69 07/29/2023 12:30 AM TRAVEL OT Pulse 57 07/29/2023 12:30 AM TRAVEL OT Temperature 36.5 ??C (97.7 ??F) 07/28/2023 8:45 PM CS T Respiratory Rate 21 07/29/2023 12:30 AM TRAVEL OT Oxygen Saturation 97% 07/29/2023 12:30 AM TRAVEL OT Inhaled Oxygen Concentration - - Weight 122.5 kg (270 lb) 07/28/2023 8:45 PM TRAVEL OT Height 188 cm (6' 2 ) 07/28/2023 8:45 PM TRAVEL OT Body Mass Index 34.67 07/28/2023 8:45 PM TRAVEL OT documented in this encounter Discharge Instructions * Discharge Instructions* Berenice South MD - 07/29/2023 12:30 AM TRAVEL OT Please call your primary care physician or marketing production specialist today for further workup of palpitations. If they return you can take metoprolol immediate release 12.5 mg. Your labs and electrolytes looked normal today. Your chest x-ray was clear. Return if worse, chest pain, shortness of breath, weaknessor dizziness. EL OT * Attachments The following attachments cannot be sent through Care Everywhere. * Palpitations (Polish) documented in this encounter Medications at Time [...] 05/25/2020 Added automatically from request for surgery [id number] ??? Sleep apnea ??? Urinary retention Past [...] Plan: Evaluate with labs EKG chest x-ray bus driver/monitor admission if necessary, medications if necessary. Amount [...] resolved. Pt is sinus bradycardic now. By: eBrenice South MD Final diagnoses: None This note [...] Nicholas Marrero 07/28/232117 Kole Devries MD 07/28/232147 EL OT * Peter Blandon RN - 07/28/2023 8:44 PM CST Patient arrives to the ED with complaints of heart palpitations that began last week but went away.Patient states they came back today and he has intermittent shortness of breath. Patient denies chest pain. EL OT documented in this encounter Miscellaneous Notes * ED Re-evaluation Note - Kole Devries MD - 07/28/2023 10:07 PM TRAVEL OT ED Re-evaluation Assumed care from Kacye. Summary: Pt been experiencing intermittent palpitations for 1 week. Pt takes 25 mg metoprolol. Pt denies chest pain. EKG read pending. No marketing production specialist. BP 122/69 Pulse 57 Temp 36.5 ??C [...] Family Medicine Relationship: PCP - General [address] [facility] [address] [facility] [address] Next Steps: Call today Instructions: For follow-up Anoop Pablo MD Specialty: Cardiovascular Disease, Internal Medicine, Interventional Cardiology, Preventative Medicine [address] [facility] [address] [place] [address] Next Steps: Call today Instructions: For palpitations [...] 07/28/23 2347 Kole Devries MD 08/03/23 1417 EL OT documented in this encounter Plan of Treatment Not on file documented as of this encounter Procedures Procedure Name Priority Date/Time Associated Diagnosis Comments ECG 12-LEAD STAT 07/28/2023 9:52 PM TRAVEL OT XR CHEST 1 VIEW ED 07/28/2023 9:34 PM TRAVEL OT EGFR STAT 07/28/2023 9:28 PM TRAVEL OT DIFFERENTIAL AUTO STAT 07/28/2023 9:2 8 PM TRAVEL OT PRO B-TYPE NATRIURETIC PEPTIDE STAT 07/28/2023 9:28 PM TRAVEL OT CBC WITH AUTO DIFFERENTIAL STAT 07/28/2023 9:28 PM TRAVEL OT MAGNESIUM Routine 07/28/2023 9:28 PM TRAVEL OT COMPREHENSIVE METABOLIC PANEL STAT 07/28/2023 9:28 PM TRAVEL OT ECG 12-LEAD Routine 07/28/2023 8:53 PM TRAVEL OT documented in this encounter Results * ECG 12 lead (07/28/2023 9:52 PM TRAVEL OT) 07/28/2023 9:52 PM TRAVEL OT Narrative [facility] - 07/29/2023 7:52 AM TRAVEL OT Vent Rate: 66 bpm RR Interval: 898 msec DC Interval: 170 msec QRS Duration: 99 msec QT Interval: 399 msec QTC Interval: 413 msec P-R-T [place]: 45 - 14 - 29 degrees IMPRESSION: SINUS RHYTHM WITH OCCASIONAL SUPRAVENTRICULAR PREMATURE COMPLEXES POSSIBLE LEFT ATRIAL ENLARGEMENT ??[-0.1mV P-WAVE IN V1/V2] Compared to prior EKG, PACs are now less frequent. Electronically Signed By: Dr Anoop Pablo us Kole Devries MD ECG ORDERABLES Final R esult [facility] * XR Chest 1 Vw Portable (07/28/2023 9:34 PM TRAVEL OT) Anatomical Region Laterality Modality Body, Chest N/A Computed Radiogr aphy 07/28/2023 10:0 0 PM TRAVEL OT Narrative 07/28/2023 10:01 PM TRAVEL OT EXAM DESCRIPTION: XR CHEST 1 VIEW REASON [...] PM T: ??07/28/2023 10:01 PM Report ID: [id number] Reading Location: ??[id number] Procedure Note Stephan Stiles MD - 07/28/2023 [...] Stephan Stiles M.D. KT: EZIO Report ID: [id number] Reading Location: [id number] Kole Devries MD IMG XR PROCEDURES Final Result * eGFR (07/28/2023 9:28 PM TRAVEL OT) eGFR 82 mL/min/1. 73 m2 [facility] [...] last reviewed 2021. Blood 07/28/2023 9:28 PM TRAVEL OT 07/28/2023 9:32 PM TRAVEL OT us Kole Devries MD LAB BLOOD ORDERABLES Fi nal Result [facility] ([place]) 1 [facility] Department [place] [address] * Differential, auto (07/28/2023 9:28 PM TRAVEL OT) Neutrophil abs 2.6 1.7 - 6.5 K/cumm [...] Neutrophil pct 53.2 % [facility] ([place]) Comment: Interpretive Data Percent cell count reference [...] revised on 2017. Blood 07/28/2023 9:28 PM TRAVEL OT 07/28/2023 9:32 PM TRAVEL OT us Kole Devries MD LAB BLOOD ORDERABLES Fi nal Result [facility] ([place]) 1 [facility] Department of Laboratories [place], [place] [id number] * Pro B-type natriuretic peptide (07/28/2023 9:28 PM TRAVEL OT) NT-proBNP 193 <=300 pg/mL [facility] ([place]) [...] Revised Date: 2018. Blood 07/28/2023 9:28 PM TRAVEL OT 07/28/2023 9:32 PM TRAVEL OT us Kole Devries MD LAB BLOOD ORDERABLES Fi nal Result [facility] [place]) 1 [facility] Department [place] [address] * CBC with auto differential (07/28/2023 9:28 PM TRAVEL OT) WBC 4.8 3.8 - 9.9 K/cumm [facility] [...] [facility] ([place]) Blood 07/28/2023 9:28 PM TRAVEL OT 07/28/2023 9:32 PM TRAVEL OT Kole Devries MD LAB BLOOD ORDERABLES Fi nal Result [facility] ([place]) 1 [facility] Department [place] [address] * (ABNORMAL) Comprehensive metabolic panel (07/28/2023 9:28 PM TRAVEL OT) Sodium 139 135 - 145 mmol/L [facility] [...] Hemolyzed S pecimen Blood 07/28/2023 9:28 PM TRAVEL OT 07/28/2023 9:32 PM TRAVEL OT Kole Devries MD LAB BLOOD ORDERABLES Fi nal Result Performing Organization Address [facility] Co de Phone Number [facility] ([place]) 1 [facility] [place] [address] * Magnesium (07/28/2023 9:28 PM TRAVEL OT) Magnesium 2.3 1.4 - 2.5 mg/dL [facility] ([place]) Blood 07/28/2023 9:28 PM TRAVEL OT 07/28/2023 9:32 PM TRAVEL OT Kole Devries MD LAB BLOOD ORDERABLES Fi nal Result Performing Organization Address [facility] de Phone Number [facility] ([place]) 1 [facility] [place] [address] * ECG 12 lead (07/28/2023 8:53 PM TRAVEL OT) 07/28/2023 8:53 PM TRAVEL OT Narrative [facility] - 07/29/2023 8:12 AM TRAVEL OT Vent Rate: 108 bpm RR Interval: 553 msec DC Interval: 163 msec QRS Duration: 97 msec QT Interval: 383 msec QTC Interval: 446 msec P-R-T [place]: 46 - 2 - 13 degrees IMPRESSION: SINUS TACHYCARDIA WITH FREQUENT SUPRAVENTRICULAR PREMATURE COMPLEXES Compared to prior EKG, heart rate is now faster and PVCs are new. Electronically Signed By: Dr Anoop Pablo Kole Devries MD ECG ORDERABLES Final R esult Performing Organization Address [facility] Co de Phone Number [facility] documented in this encounter Visit Diagnoses Diagnosis Palpitations- Primary documented in this encounter Administered Medications Inactive Administered Medications - up to 3 most recent administrations Medication Order MAR Action Action Date Dose Rate Site metoprolol (LOPRESSOR) injection 10 mg 10 mg, intravenous, Administer over 1 Minutes, Once, On 07/28/23 at 2124, For 1 dose Given 07/28/2023 9:33 PM TRAVEL OT 10 mg documented in this encounter Active and Recently Administered Medications Times are shown in TRAVEL OT. Scheduled Medication Order 07/27/2023 07/28/2023 07/29/2023 metoprolol [...] 07/28/2023 documented in this encounter Care Teams Analysis Director Relationship Specialty Start Date End Date La Kearney MD [address] [facility] [address] LUCAS [address] [place] [address] PCP - General Family Medicine 10/02/22 Mariaelena Zaidi MD Consulting Physician Sleep Medicine 07/12/21 documented as of this encounter
--- OUTSIDE RECORDS SUMMARY | 2024-09-17 14:02 | XMS_ITS | Encounter Summary ---
Author Organization [facility] Healthcare Address [address] [place] [address] Care Team Providers Care Railroad Accountant Name Role Phone Mariaelena Zaidi MD Unavailable La Núñez MD Primary Care Provide r Reason for Referral * Diagnostic Imaging (Routine) - Closed Specialty Diagnoses / Procedures Referred By Conttom t Referred To Contact Radiology Diagnoses RLQ abdominal pain Procedures CT Abdomen Pelvis WO Contrast La Núñez MD [address] [place] [address] [address] LUCAS [address] [place] [address] Phone: tel: fax: [address] [phone] Referral ID Status Reason Start Date Expiration Date Visits Re quested Visits Authorized [id number] Closed 10/07/2023 11/05/2024 1 1 IT CONTROL MANAGER Encounter Details Date Type Department Care Team (Late st Contact Info) Description 10/07/[address] [facility] Medical Group Primary Care at [address] [place] [phone] La Núñez MD [address] [facility] [address] LUCAS [address] [place] [phone] RLQ abdominal pain (Primary Dx) Social History [...] on file Legal Sex Male 8:02 AM CREDIT CONTROL MANAGER Gender Identity Not on file Sexual Orientation Not on file documented as of this encounter Plan of Treatment Not on file documented as of this encounter Results * CT Abdomen Pelvis WO Contrast (10/07/2023 2:40 PM CREDIT CONTROL MANAGER) Anatomical Region Laterality Modality Body N/A Computed Tomogra phy 10/07/2023 2:50 PM CREDIT CONTROL MANAGER Narrative 10/07/2023 3:06 PM CREDIT CONTROL MANAGER EXAM DESCRIPTION: ?? CT ABDOMEN PELVIS WO [...] PM T: ??10/07/2023 3:06 PM Report ID: [id number] Reading Location: ??[id number] Procedure Note Ziggy Almaguer Jr., MD - [...] by Ziggy Almaguer M.D. CH: Report ID: [id number] Reading Location: [place] [address] La Núñez MD IMG CT PROCEDURES Fin al Result documented in this encounter Visit Diagnoses Diagnosis RLQ abdominal pain- Primary Abdominal pain, right lower quadrant RLQ abdominal pain Abdominal pain, right lower quadrant documented in this encounter Care Teams Railroad Accountant Relationship Specialty Start Date End Date La Núñez MD [address] [place] [address] DR LUCAS [address] [place] [address] PCP - General Family Medicine 10/02/22 Mariaelena Zaidi MD Consulting Physician Sleep Medicine 07/12/21 documented as of this encounter
--- OUTSIDE RECORDS SUMMARY | 2024-09-17 14:02 | XMS_ITS | Encounter Summary ---
Author Organization [facility] Healthcare Address [address] [place] [address] Care Team Providers Care Syrup Filterer Name Role Phone Mariaelena Zaidi MD Unavailable La Kearney MD Primary Care Provide r Reason for Visit * Reason Onset Date Comments Medication Request 10/01/2023 Encounter Details Date Type Department Care Team (Late st Contact Info) Description 10/01/2023 Telephone [facility] Medical Group Primary Care at [address] [phone] La Kearney MD [address] [place] [address] [address] [place] [address] Medication Request Social History Tobacco [...] on file Legal Sex Male 8:02 AM FRUIT GRADING SUPERVISOR Gender Identity Not on file Sexual [...] Abbey Jauregui MA - 10/01/2023 3:46 PM FRUIT GRADING SUPERVISOR Patient was notified on medication being refilled T GRADING SUPERVISOR * Telephone Encounter - La Kearney MD - 10/01/2023 3:14 PM FRUIT GRADING SUPERVISOR Rx sent T GRADING SUPERVISOR * Telephone Encounter - Coby Mendez MA - 10/01/2023 3:11 PM FRUIT GRADING SUPERVISOR Pt requesting early refill for pravastatin since med is coming through [facility] and may take7-14 days. Pended in chart T GRADING SUPERVISOR * Telephone Encounter - Destiny Brown - [...] message need to be routed? Yes-Action Needed T GRADING SUPERVISOR documented in this encounter Plan of [...] documented as of this encounter Care Teams Syrup Filterer Relationship Specialty Start Date End Date La Kearney MD [address] [place] [address] [place] [id number] PCP - General Family Medicine 10/02/22 Mariaelena Zaidi MD Consulting Physician Sleep Medicine 07/12/21 documented as of this encounter
--- OUTSIDE RECORDS SUMMARY | 2024-09-17 14:02 | XMS_ITS | Encounter Summary ---
Author Organization [facility] Healthcare Address [address] [place] [address] Care Team Providers Care Printing Gray Cloth Tender Name Role Phone Mariaelena Zaidi MD Unavailable La Kearney MD Primary Care Provide r Reason for Visit * Reason Comments PT Initial Eval * Consultation (Routine) - Closed Specialty Diagnoses / Procedures Referred By Contac t Referred To Contact Physical Therapy Diagnoses Neck pain Acute bilateral low back pain with sciatica, sciatica laterality unspecified La Kearney MD [address] [place] [id number] Phone: tel: fax: [address] [phone] Referral ID Status Reason Start Date Expiration Date V isits Requested Visits Authorized [id number] Closed Evaluate and Treat 06/07/2023 07/06/2024 24 24 Encounter Details Date Type Department Care Team (Late st Contact Info) Description 06/26/2023 4:15 PM CDT Therapy [facility] Physical Therapy - [address] [place] [address] Monroe Tabor, PT Neck pain; Acute bilateral [...] file 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 male La Kearney MD [address] [facility] [address] [address] ICD-9-CM ICD-10-CM 1. Neck pain 723.1 M54.2 [...] stretching hips and low back Traction over swedish ball Patient was instructed to perform tennis ball sub occipital release and upper trap stretch and to continue with stretching program for low back. Patient requires skilled therapy to restore prior level of function utilizing the treatment and modalities described in this plan of Care. Following the evaluation and extensive patient education regarding diagnosis, prognosis, and treatment goals, the patient (parent/guardian, power of patent attorney epstein) actively participated in the creation [...] 1 documented in this encounter Care Teams Printing Gray Cloth Tender Relationship Specialty Start Date End Date La Kearney MD [address] [facility] [address] [place] [address] [place] [id number] PCP - General Family Medicine 10/02/22 Mariaelena Zaidi MD Consulting Physician Sleep Medicine 07/12/21 documented as of this encounter
--- OUTSIDE RECORDS SUMMARY | 2024-09-17 14:02 | XMS_ITS | Encounter Summary ---
Author Organization [facility] Healthcare Address [address] [place] [address] Care Team Providers Care Cook Pie Name Role Phone Mariaelena Zaidi MD Unavailable [...] Expiration Date Visits Re quested Visits Authorized [id number] 1 1 Encounter Details Date Type Department Care Team (Late st Contact Info) Description 10/07/2023 3:31 PM MANAGER EMPLOYEE BENEFITS - 10/08/2023 2:48 PM MANAGER EMPLOYEE BENEFITS Emergency [facility] Surgery Care [address] [place] [address] Sukhwinder Sanchez MD [address] [place] [address] Ramos Fraga MD [address] [place] [address] Acute appendicitis with localized peritonitis, without perforation, [...] file Legal Sex Male 8:02 AM MANAGER EMPLOYEE BENEFITS Gender Identity Not on file Sexual Orientation Not on file documented as of this encounter Last Filed Vital Signs Vital Sign Reading Time Taken Comments Blood Pressure 110/66 10/08/2023 11:11 AM MANAGER EMPLOYEE BENEFITS Pulse 77 10/08/2023 11:11 AM MANAGER EMPLOYEE BENEFITS Temperature 36.1 ??C (97 ??F) 10/08/2023 11:11 AM MANAGER EMPLOYEE BENEFITS Respiratory Rate 16 10/08/2023 11:11 AM MANAGER EMPLOYEE BENEFITS Oxygen Saturation 94% 10/08/2023 11:11 AM MANAGER EMPLOYEE BENEFITS Inhaled Oxygen Concentration - - Weight 124.7 kg (275 lb) 10/07/2023 8:17 PM MANAGER EMPLOYEE BENEFITS Height 188 cm (6' 2 ) 10/07/2023 8:17 PM MANAGER EMPLOYEE BENEFITS Body Mass Index 35.31 10/07/2023 8:17 PM MANAGER EMPLOYEE BENEFITS documented in this encounter Discharge Summaries * Charissa Mcdonald NP - 10/08/2023 1:30 PM CST Inpatient Discharge Summary BRIEF OVERVIEW Admitting Provider: Ramos Fraga MD Discharge Provider: Ramos Fraga MD Primary Care Physician at Discharge: La Núñez MD [phone] Admission Date: 10/07/2023 Discharge Date: 10/08/2023 Admission Location: [facility] Problems/Diagnoses: Principal Problem: Status post appendectomy Active [...] 1 week, Please call office for appointment [phone] 8. Diet, until follow up: regular 9. [...] dysfunction Max 1 daily. Commonly known as: JUSTINAS Outpatient Follow-Up: Future Appointments Date Time Provider Department Center 12/11/2023 8:30 AM La Núñez MD PCP [facility] Cosigned by Ramos Fraga MD at 10/08/2023 4:13 PM MANAGER EMPLOYEE BENEFITS GER EMPLOYEE BENEFITS GER EMPLOYEE BENEFITS documented in this encounter Discharge Instructions * Discharge Instructions* Mireille Moura RN - 10/08/2023 2:01 PM MANAGER EMPLOYEE BENEFITS THANK YOU for choosing our team to provide your health care. Your HEALTH AND SAFETY are important to us. We hope you feel your care on SCU is ALWAYS EXCELLENT! Please call SCU at [phone] if you have any questions regarding your care. Wishing you continued improvement during your recovery. Your Surgical Care Unit Team Mireille Camara Dana, Denise, Radha, Maggie, Vira, Lily, Nicole, RhiannonDory Lamika, Judy, Lindsey, Suzie, Jocelyn, Rochelle, Simona, Bonnie, Angie, Melanie, Sweetie, Dayanara Christopher. GER EMPLOYEE BENEFITS * Attachments The following attachments cannot be sent through Care Everywhere. * Appendicitis (Discharge Care) (Fijian) * Obed-Malhotra Drain Care (Discharge Care) (Fijian) * Laxative, Stool Softeners (By mouth) (Fijian) * Ondansetron (By mouth, Into the mouth) (Fijian) * Hydrocodone/Acetaminophen (By mouth) (Fijian) documented in this encounter Medications at Time [...] up to 7 days 28 tablet 10/08/2023 02/06/20 24 ondansetron (ZOFRAN) 4 mg tablet Take [...] Pain is well controlled. 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 Ramos Fraga MD 4:01 PM 10/07/2023 GER EMPLOYEE BENEFITS documented in this encounter ED Notes * [...] 05/25/2020 Added automatically from request for surgery [id number] ??? Sleep apnea ??? Urinary retention Past [...] Electronically signed by Ziggy Almaguer M.D. CH: [facility] Medical Decision Making Amount and/or Complexity of Data Reviewed Labs: ordered. Risk Prescription drug management. ED Course as of 10/07/23 1553 Time: 10/07 1551 Comment: Discussed with Dr Berrios will take him to [place]. By: Sukhwinder Sanchez MD Final diagnoses: Acute appendicitis with localized peritonitis, without perforation, abscess, or gangrene Sukhwinder Sanchez MD 10/07/23 1551 GER EMPLOYEE BENEFITS * Tigist Coronado RN - 10/07/2023 3:29 PM CST Patient presents to the Ed with complaints of abdominal pain since this morning, went to his pcp and had a CT scan and sent here for appendicitis GER EMPLOYEE BENEFITS documented in this encounter Miscellaneous Notes * [...] up independently, and has no other complaints GER EMPLOYEE BENEFITS * Initial Assessments - Denice Clark RN - 10/08/2023 11:40 AM CST CM Low Risk Discharge Planning Assessment Note Primary Care Provider: La Núñez MD Preferred Pharmacy: [facility] - [place], [place] - [address] [facility] [address] [facility] - [place], [place] - [address] [facility] [address] [facility] [address] [facility] - [place], [place] - [address] [facility] [address] Who does the patient or legal guardian [...] a CPAP and gets his supplies thru [employer] [facility]. Had a lap appy on10/07. Barrier to dc is recovery after surgery. No home needs noted at this time. Denice Clark RN Phone Number: GER EMPLOYEE BENEFITS * Plan of Care - Chayito Horta [...] addressed with PRN medication as per order. GER EMPLOYEE BENEFITS * Op Note - Ramos Fraga MD - 10/07/2023 6:29 PM CST NAME: Jaden Clement DATE OF : 1970 SURGEON: Ramos Fraga MD SEGMENTAL WALL INSTALLER:Basket Maker: Eva Barboza RN Scrub: Tawnya Packer RN FOREST ENGINEER: Eufemia Camp RN FLOAT: Eleni Solorio ST [...] to be hemostatic.At this time a 10 Jamaican flat CELIO drain was left over the staple line given the inflammation of the cecum. It was brought through the suprapubic port site and secured in place with a 3-0 nylon stitch.Remaining trocars were removed and pneumoperitoneum evacuated. The fascia of the left lower quadrant trocar was closed with a [id number] 0 Vicryl stitch. The skin of all [...] Appendix Ramos Fraga MD 10/07/2023 7:29 PM GER EMPLOYEE BENEFITS documented in this encounter Plan of Treatment Not on file documented as of this encounter Procedures Procedure Name Priority Date/Time Associated Diagnosis Comments EGFR Routine 10/08/2023 6:54 AM MANAGER EMPLOYEE BENEFITS CBC WITHOUT DIFFERENTIAL Routine 10/08/2023 6:54 AM MANAGER EMPLOYEE BENEFITS PHOSPHORUS Routine 10/08/2023 6:54 AM MANAGER EMPLOYEE BENEFITS MAGNESIUM Routine 10/08/2023 6:54 AM MANAGER EMPLOYEE BENEFITS BASIC METABOLIC PANEL Routine 10/08/2023 6:54 AM MANAGER EMPLOYEE BENEFITS LAPAROSCOPIC APPENDECTOMY 10/07/2023 5:53 PM MANAGER EMPLOYEE BENEFITS Acute appendicitis EGFR STAT 10/07/2023 3:44 PM MANAGER EMPLOYEE BENEFITS DIFFERENTIAL AUTO STAT 10/07/2023 3:4 4 PM MANAGER EMPLOYEE BENEFITS URINALYSIS AND REFLEX TO MICROSCOPIC AND CULTURE STAT 10/07/2023 3:44 PM MANAGER EMPLOYEE BENEFITS CBC WITH AUTO DIFFERENTIAL STAT 10/07/2023 3:44 PM MANAGER EMPLOYEE BENEFITS URINALYSIS, MICROSCOPIC ONLY STAT 10/07/2023 3:44 PM MANAGER EMPLOYEE BENEFITS PROTIME-INR STAT 10/07/2023 3:44 PM MANAGER EMPLOYEE BENEFITS URINE CULTURE STAT 10/07/2023 3:44 PM MANAGER EMPLOYEE BENEFITS COMPREHENSIVE METABOLIC PANEL STAT 10/07/2023 3:44 PM MANAGER EMPLOYEE BENEFITS SURGICAL PATHOLOGY Routine 10/07/2023 11 :06 AM MANAGER EMPLOYEE BENEFITS Acute appendicitis, unspecified acute appendicitis type documented in this encounter Results * eGFR (10/08/2023 6:54 AM MANAGER EMPLOYEE BENEFITS) eGFR 78 mL/min/1. 73 m2 [facility] [...] last reviewed 2021. Blood 10/08/2023 6:54 AM MANAGER EMPLOYEE BENEFITS 10/08/2023 7:11 AM MANAGER EMPLOYEE BENEFITS Ramos Fraga MD LAB BLOOD ORDERA BLES Final Result [facility] ([place]) 1 [facility] Department of Laboratories [place], [place] [id number] * (ABNORMAL) CBC without differential (10/08/2023 6:54 AM MANAGER EMPLOYEE BENEFITS) WBC 9.9 3.8 - 9.9 K/cumm [facility] [...] [facility] ([place]) Blood 10/08/2023 6:54 AM MANAGER EMPLOYEE BENEFITS 10/08/2023 7:11 AM MANAGER EMPLOYEE BENEFITS Ramos Fraga MD LAB BLOOD ORDERA BLES Final Result [facility] ([place]) 1 [facility] [employer] [place] [address] * Phosphorus (10/08/2023 6:54 AM MANAGER EMPLOYEE BENEFITS) Phosphorus, pl 3.2 2.3 - 4.5 mg/dL [facility] ([place]) Blood 10/08/2023 6:54 AM MANAGER EMPLOYEE BENEFITS 10/08/2023 7:11 AM MANAGER EMPLOYEE BENEFITS Ramos Fraga MD LAB BLOOD ORDERA BLES Final Result Performing Organization Address [facility] Co de Phone Number [facility] ([place]) 1 [facility] [employer] [place] [address] * Magnesium (10/08/2023 6:54 AM MANAGER EMPLOYEE BENEFITS) Magnesium 2.1 1.4 - 2.5 mg/dL [facility] ([place]) Blood 10/08/2023 6:54 AM MANAGER EMPLOYEE BENEFITS 10/08/2023 7:11 AM MANAGER EMPLOYEE BENEFITS Ramos Fraga MD LAB BLOOD ORDERA BLES Final Result Performing Organization Address City/[facility]/ZIP Co de Phone Number [facility] ([place]) 1 [facility] [employer] [place] [address] * (ABNORMAL) Basic metabolic panel (10/08/2023 6:54 AM MANAGER EMPLOYEE BENEFITS) Sodium 133(L) 135 - 145 mmol/L [facility] ([place]) Potassium, pl 5.0(H) 3.3 - 4.9 mmol/L [facility] ([place]) Chloride 101 97 - 110 mmol/L [facility] ([place]) CO2 22 22 - 32 mmol/L [facility] ([place]) Anion gap 11 2 - 15 mmol/L [facility] ([place]) BUN 16 6 - 25 mg/dL [facility] ([place]) Creatinine 1.11 0.80 - 1.30 mg/dL [facility] ([place]) Glucose 165 70 - 199 mg/dL [facility] ([place]) Comment: Interpretive Data Fasting glucose >/= [...] 2022. Calcium 9.0 8.5 - 10.3 mg/dL [facility] ([place]) Blood 10/08/2023 6:54 AM MANAGER EMPLOYEE BENEFITS 10/08/2023 7:11 AM MANAGER EMPLOYEE BENEFITS Ramos Fraga MD LAB BLOOD ORDERA BLES Final Result [facility] ([place]) 1 [facility] Department [place] [address] * eGFR (10/07/2023 3:44 PM MANAGER EMPLOYEE BENEFITS) Pathologist [facility] eGFR 88 mL/min/1. 73 m2 [facility] ([place]) Comment: Interpretive Data Reference Interval Normal [...] last reviewed 2021. Blood 10/07/2023 3:44 PM MANAGER EMPLOYEE BENEFITS 10/07/2023 3:50 PM MANAGER EMPLOYEE BENEFITS us Sukhwinder Sanchez MD LAB BLOOD ORDERABLES Final Res ult [facility] ([place]) 1 [facility] Department [place] [address] * Urine culture Urine (10/07/2023 3:44 PM MANAGER EMPLOYEE BENEFITS) Report Final Report: Less than 100,000 colonies/mL (clinically insignificant growth based on current clinical standards) [facility] ([place]) Comment:Testing performed by : [facility], [address] [facility], [place]., [address] Organism (CLINICALLY INSIGNIFICANT GROWTH [facility] ([place]) Urine 10/07/2023 3:44 PM MANAGER EMPLOYEE BENEFITS 10/07/2023 8:47 PM MANAGER EMPLOYEE BENEFITS Narrative [facility] ([place]) - 10/09/2023 7:56 AM MANAGER EMPLOYEE BENEFITS Urine culture reflexed based upon urinalysis results. Testing performed by [facility] ([phone]) Sukhwinder Sanchez MD LAB MICROBIOLOGY - GENERAL ORD ERABLES Final Result [facility] ([place]) 1 [facility] Department [place] [address] * (ABNORMAL) Urinalysis, microscopic only (10/07/2023 3:44 PM MANAGER EMPLOYEE BENEFITS) WBC, ur 11-20(A) 0 - 5 /HPF [facility] ([place]) RBC, ur 0-2 0 - 2 /HPF [facility] ([place]) Epithelial cells, squamous, ur 1-5 0 - 5 /HPF [facility] ([place]) Mucous, ur Present(A) [facility] ([place]) Culture Reflex Comment Reflex to urine culture will be performed. [facility] ([place]) Urine 10/07/2023 3:44 PM MANAGER EMPLOYEE BENEFITS 10/07/2023 3:50 PM MANAGER EMPLOYEE BENEFITS Sukhwinder Sanchez MD LAB URINE ORDERABLES Final Res ult [facility] ([place]) 1 [facility] [place] [address] * Differential, auto (10/07/2023 3:44 PM MANAGER EMPLOYEE BENEFITS) Neutrophil abs 6.5 1.5 - 6.5 K/cumm [...] revised on 2017. Blood 10/07/2023 3:44 PM MANAGER EMPLOYEE BENEFITS 10/07/2023 3:50 PM MANAGER EMPLOYEE BENEFITS us Sukhwinder Sanchez MD LAB BLOOD ORDERABLES Final Res ult [facility] ([place]) 1 [facility] Department [place] [address] * (ABNORMAL) Urinalysis reflex to microscopic and culture Urine (10/07/2023 3:44 PM MANAGER EMPLOYEE BENEFITS) Color, ur Yellow Yellow [facility] ([place]) Clarity, ur Clear Clear [facility] ([place]) Specific gravity, ur 1.030 1.003 - 1.030 [...] tendency for uric acid stone formation. Source: [facility] Current Interpretive Data was last revised [...] [facility]) Urine 10/07/2023 3:44 PM MANAGER EMPLOYEE BENEFITS 10/07/2023 3:50 PM MANAGER EMPLOYEE BENEFITS Sukhwinder Sanchez MD LAB MICROBIOLOGY - GENERAL ORD ERABLES Final Result [facility] ([place]) 1 [facility] Department [place] [address] * Protime-INR (10/07/2023 3:44 PM MANAGER EMPLOYEE BENEFITS) PT 11.7 10.3 - 13.7 sec [facility] ([place]) INR 1.03 0.90 - 1.20 [facility] ([place]) Comment: Interpretive data Oral anticoagulant therapeutic ranges: Venous thromboembolism prophylaxis or treatment: 2.0-3.0 CARDIOLOGY Standard range: 2.0-3.0 High-intensity range: 2.5-3.5 Refer to indication-specific guidelines for appropriate target ranges for prosthetic heart valve replacement. Current interpretive data was last revised on 2019. Blood 10/07/2023 3:44 PM MANAGER EMPLOYEE BENEFITS 10/07/2023 3:50 PM MANAGER EMPLOYEE BENEFITS us Sukhwinder Sanchez MD LAB BLOOD ORDERABLES Final Res ult [facility] ([place]) 1 [facility] Department [place] [address] * Comprehensive metabolic panel (10/07/2023 3:44 PM MANAGER EMPLOYEE BENEFITS) Sodium 135 135 - 145 mmol/L [facility] [...] Hemolyzed S pecimen Blood 10/07/2023 3:44 PM MANAGER EMPLOYEE BENEFITS 10/07/2023 3:50 PM MANAGER EMPLOYEE BENEFITS us Sukhwinder Sanchez MD LAB BLOOD ORDERABLES Final Res ult Performing Organization Address City/[facility]/ZIP Co de Phone Number [facility] ([place]) 1 [facility] [employer] [address] * CBC with auto differential (10/07/2023 3:44 PM MANAGER EMPLOYEE BENEFITS) WBC 9.3 3.8 - 9.9 K/cumm [facility] [...] [facility] ([place]) Blood 10/07/2023 3:44 PM MANAGER EMPLOYEE BENEFITS 10/07/2023 3:50 PM MANAGER EMPLOYEE BENEFITS us Sukhwinder Sanchez MD LAB BLOOD ORDERABLES Final Res ult [facility] ([place]) 1 [facility] [employer] [place] [address] * Surgical pathology (10/07/2023 11:06 AM MANAGER EMPLOYEE BENEFITS) Tissue (Appendix) 10/07/2023 6:32 PM MANAGER EMPLOYEE BENEFITS Narrative PATHOLOGY [facility] ([place]) - 10/09/2023 5:30 PM MANAGER EMPLOYEE BENEFITS EPIC results best viewed via link to PDF [facility] Department of Pathology [address] [place] [id number] Note to Patients: This report may contain [...] explain the details. Final Report Patient Name: ??BOROKLYN CLEMENTJolie Condon Address: ??[address] [place] [address], ??[place], [place] [address] Gender: ??M : ??1970 (Age: 53) Service: ??Surgery Location: ??[facility] Hospital #: ??[id number] Patient Type: ??[facility] OBS Accession # ?[id number] Taken: ??10/07/2023 Received: ??10/08/2023 Accessioned: ??10/08/2023 Reported: [...] ??No muscular wall perforation is seen grossly. ??Cigarette Making Machine Hopper Feeder sections are submitted: ??Tip A1, mid section [...] the Surgical Pathology Department at [facility] as part of an ongoing director supplier quality program and in compliance with federally mandated [...] characteristics determined by the Surgical Pathology Department [facility]. ??It has not been cleared or approved by the U. S. Food and Drug Administration. Note for decalcified specimens: This assay has not been validated on decalcified tissues. Results should be interpreted with caution given the possibility of false negativity on decalcified specimens Ramos Fraga MD LAB PATHOLOGY OR DERABLES Final Result PATHOLOGY [facility] ([place]) 1 [place] [address] documented in this encounter Visit [...] otherwise manipulate tablet/capsule. Given 10/08/2023 9:10 AM MANAGER EMPLOYEE BENEFITS 300 mg docusate sodium (COLACE) capsule 100 mg 100 mg, oral, 2 times daily, First dose on Sat10/07/23 at 2100, Indications: constipationIndications:constipati on Given 10/08/2023 9:10 AM MANAGER EMPLOYEE BENEFITS 100 mg Given 10/07/2023 10:10 PM MANAGER EMPLOYEE BENEFITS 100 mg enoxaparin (LOVENOX) syringe 40 mg 40 mg, subcutaneous, Daily (for enoxaparin), First dose on Sat10/07/23 at 2100, Indications: Deep Vein Thrombosis PreventionIndications:Deep Vein Thrombosis Prevention Given 10/07/2023 10:10 PM MANAGER EMPLOYEE BENEFITS 40 mg Left Lower Abdomen fentaNYL (SUBLIMAZE) [...] more., Indications: PainIndications:Pain Given 10/07/2023 7:56 PM MANAGER EMPLOYEE BENEFITS 25 mcg Given 10/07/2023 7:46 PM MANAGER EMPLOYEE BENEFITS 25 mcg HYDROcodone-acetaminophen (NORCO) 5-325 mg per tablet 1 tablet 1 tablet, oral, Every 4 hours PRN, 1st line for pain, Starting on Sat10/08/23 at 0905, Indications: PainIndications:Pain Given 10/08/2023 1:28 PM MANAGER EMPLOYEE BENEFITS 1 tablet Given 10/08/2023 9:10 AM MANAGER EMPLOYEE BENEFITS 1 tablet HYDROmorphone (DILAUDID) injection 1 mg 1 mg, intravenous, Administer over 2 Minutes, Every 2 hours PRN, pain 7-10, Starting on Sat10/07/23 at 2017 Given 10/08/2023 5:32 AM MANAGER EMPLOYEE BENEFITS 1 mg Given 10/08/2023 3:02 AM MANAGER EMPLOYEE BENEFITS 1 mg Given 10/07/2023 11:57 PM MANAGER EMPLOYEE BENEFITS 1 mg Lactated Ringer's (LR) infusion 30 mL/hr, intravenous, Continuous, Starting on Sat10/07/23 at 1745, Pre-Op Rate/Dose Verify 10/07/2023 6:08 PM MANAGER EMPLOYEE BENEFITS 30 mL/hr New Bag 10/07/2023 5:17 PM MANAGER EMPLOYEE BENEFITS 30 mL/hr 30 mL/hr Lactated Ringer's (LR) infusion 75 mL/hr, intravenous, Continuous, Starting on Sat10/07/23 at 2100 New Bag 10/07/2023 8:30 PM MANAGER EMPLOYEE BENEFITS 75 mL/hr 75 mL/hr lisinopriL (PRINIVIL,ZESTRIL) tablet 5 mg 5 mg, oral, Nightly, First dose on Sat10/07/23 at 2100 Given 10/07/2023 10:10 PM MANAGER EMPLOYEE BENEFITS 5 mg metoprolol XL (TOPROL-XL) extended release tablet 50 mg 50 mg, oral, Nightly, First dose on Sat10/07/23 at 2100, Tablets that are scored may be split, but do not crush, chew, dissolve, open or otherwise manipulate tablet/capsule. Given 10/07/2023 10:10 PM MANAGER EMPLOYEE BENEFITS 50 mg ondansetron (ZOFRAN) injection 4 mg 4 mg, intravenous, Administer over 2 Minutes, Every 6 hours PRN, nausea, vomiting, Starting on Sat10/07/23 at 2016, Indications: Nausea and VomitingIndications:Nausea and Vomiting Given 10/08/2023 5:41 AM MANAGER EMPLOYEE BENEFITS 4 mg Given 10/07/2023 8:48 PM MANAGER EMPLOYEE BENEFITS 4 mg piperacillin-tazobactam (ZOSYN) 3.375 gram/65 mL in sodium chloride 0.9% (premix) 3.375 g 3.375 g, intravenous, at 130 mL/hr, Administer over 30 Minutes, Every 6 hours scheduled, First dose on Sat10/07/23 at 1615, Indications: Abdominal/Pelvic InfectionIndications:Abdominal/Pel monique Infection New Bag 10/08/2023 5:35 AM MANAGER EMPLOYEE BENEFITS 3.375 g 130 mL/hr New Bag 10/07/2023 11:32 PM MANAGER EMPLOYEE BENEFITS 3.375 g 130 mL/hr New Bag 10/07/2023 4:31 PM MANAGER EMPLOYEE BENEFITS 3.375 g 130 mL/hr pramipexole (MIRAPEX) tablet 1.5 mg 1.5 mg, oral, 3 times daily, First dose on Sat10/07/23 at 2200 Given 10/08/2023 9:10 AM MANAGER EMPLOYEE BENEFITS 1.5 mg Given 10/07/2023 10:10 PM MANAGER EMPLOYEE BENEFITS 1.5 mg sodium chloride 0.9% infusion 125 mL/hr, intravenous, Continuous, Starting on Sat10/07/23 at 1542 New Bag 10/07/2023 4:14 PM MANAGER EMPLOYEE BENEFITS 125 mL/hr 125 mL/hr documented in this [...] Recently Administered Medications Times are shown in MANAGER EMPLOYEE BENEFITS. 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
--- OUTSIDE RECORDS SUMMARY | 2024-09-17 14:02 | XMS_ITS | Encounter Summary ---
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 Almaguer ([facility]) reporting critical result. Results of CT of [...] anything. He stated he would return to [facility] immediately. RNIST MEDICAL DOCTOR MD * Telephone Encounter - La Kearney MD - 10/07/2023 2:26 PM INTERNIST MEDICAL DOCTOR MD No problem. Ok to change order RNIST MEDICAL DOCTOR MD * Telephone Encounter - Marcela Mcgowan - 10/07/2023 1:27 PM CST Fyi-per ct they said would have to order ct abd/pelvis for the dx used. thanks RNIST MEDICAL DOCTOR MD documented in this encounter Plan of Treatment Not on file documented as of this encounter Visit Diagnoses Not on filedocumented in this encounter Care Teams Java Security Engineer Relationship Specialty Start Date End Date La Kearney MD [address] [place] [address] [place] [address] PCP - General Family Medicine 10/02/22 Mariaelena Zaidi MD Consulting Physician Sleep Medicine 07/12/21 documented as of this encounter
--- OUTSIDE RECORDS SUMMARY | 2024-09-17 14:02 | XMS_ITS | Encounter Summary ---
Author Organization [facility] Healthcare Address [address] [place] [address] Care Team Providers Care Pre Sales Technical Consultant Name Role Phone Mariaelena Zaidi MD Unavailable La Kearney MD Primary Care Provide r Reason for Visit * Reason Onset Date Comments Medical Question/Miscellaneous 08/08/2023 Encounter Details Date Type Department Care Team (Late st Contact Info) Description 08/08/2023 Telephone [facility] Medical Group Primary Care at [address] [place] [address] La Kearney MD [address] [place] [address] [address] [place] [address] Medical Question/Miscellaneous Social History Tobacco [...] on file 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 He forgot to ask for a doctor's note. He needs it to actually say he was in the office being seen by MARKETING INFORMATION COORDINATOR Thais. He would like it down loaded in his my chart but he would also really like a copy mailed to his home. He would like both ways just in case one or the other fails to get to him and he would be written up. His address is as follows: [facility] [address] [place] [address] Please advise and due to patient needing as soon as possible CS will send over as HP. Thank you so much. Does message need to be routed? Yes-Action Needed ING PRESS OPERATOR documented in this encounter Plan of Treatment Not on file documented as of this encounter Visit Diagnoses Not on filedocumented in this encounter Care Teams Pre Sales Technical Consultant Relationship Specialty Start Date End Date La Kearney MD [address] [place] [address] [address] PCP - General Family Medicine 10/02/22 Mariaelena Zaidi MD Consulting Physician Sleep Medicine 07/12/21 documented as of this encounter
--- OUTSIDE RECORDS SUMMARY | 2024-09-17 14:03 | XMS_ITS | Encounter Summary ---
Author Organization [facility] Medical Group Address [address] [facility] [address] [place] [address] Care Team Providers Care Car Record Clerk Name Role Phone Mariaelena Zaidi MD Unavailable La Kearney MD Primary Care Provide r Reason for Referral * Consultation (Routine) - Closed Specialty Diagnoses / Procedures Referred By Contac t Referred To Contact Physical Therapy Diagnoses Neck pain Acute bilateral low back pain with sciatica, sciatica laterality unspecified La Kearney MD [address] [place] [address] [address] Phone: tel: fax: [address] [phone] Referral ID Status Reason Start Date Expiration Date V isits Requested Visits Authorized [id number] Closed Evaluate and Treat 06/07/2023 07/06/2024 24 24 Question Answer PTRFR PT Evaluate and Treat Therapy options discussed with patient? 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 ?? There is wkjr-lm-sblcriod L2-S1 degenerative disc disease, greatest at L2-L3 and L4-L5. ??Inferior lumbar facet osteoarthritis is present. ??Left iliac enostosis is noted. ?? There is inferior lumbar facet osteoarthritis. IMPRESSION: Mild C3-C5 and moderate C5-C7 degenerative disc disease with mild bilateral C5-C7 foraminal impingement. Iosm-tp-xzfapcwn L2-S1 degenerative disc disease, greatest at L2-L3 and L4-L5. THIS IS AN ELECTRONICALLY VERIFIED FINAL REPORT 06/08/2023 5:53 PM - Electronically signed by ??Michael Xiong M.D. MF: CHANI D: ??06/08/2023 5:53 PM T: ??06/08/2023 5:53 PM Report ID: [id number] Reading Location: ??[id number] Procedure Note Michael Xiong MD - 06/08/2023 [...] tree years ago and an injury in [employer] 30 years ago. FINDINGS: Five views lumbar [...] mild retrolisthesis of L3 onL4. There is ggyz-ha-eyxxsatp L2-S1 degenerative disc disease, greatest atL2-L3 and L4-L5. Inferior lumbar facet osteoarthritis is present. Left iliac enostosis is noted. There is inferior lumbar facet osteoarthritis. IMPRESSION: Mild C3-C5 and moderate C5-C7 degenerative disc disease with mildbilateral C5-C7 foraminal impingement. Wagp-ap-ifjpchac L2-S1 degenerative disc disease, greatest at L2-L3 andL4-L5. THIS IS AN ELECTRONICALLY VERIFIED FINAL REPORT 06/08/2023 5:53 PM - Electronically signed by Michael Xiong M.D. MF: CHANI Report ID: [id number] Reading Location: [place] [address] us La Kearney MD IMG XR PROCEDURES [...] of L3 on L4. ?? There is prea-mb-rbgajkbl L2-S1 degenerative disc disease, greatest at L2-L3 and L4-L5. ??Inferior lumbar facet osteoarthritis is present. ??Left iliac enostosis is noted. ?? There is inferior lumbar facet osteoarthritis. IMPRESSION: Mild C3-C5 and moderate C5-C7 degenerative disc disease with mild bilateral C5-C7 foraminal impingement. Fqvh-cj-rinshtmb L2-S1 degenerative disc disease, greatest at L2-L3 and L4-L5. THIS IS AN ELECTRONICALLY VERIFIED FINAL REPORT 06/08/2023 5:53 PM - Electronically signed by ??Michael Xiong M.D. MF: CHANI D: ??06/08/2023 5:53 PM T: ??06/08/2023 5:53 PM Report ID: [id number] Reading Location: ??[id number] Procedure Note Michael Xiong MD - 06/08/2023 [...] tree years ago and an injury in [employer] 30 years ago. FINDINGS: Five views lumbar [...] mild retrolisthesis of L3 onL4. There is nfre-km-vsbfsuzh L2-S1 degenerative disc disease, greatest atL2-L3 and L4-L5. Inferior lumbar facet osteoarthritis is present. Left iliac enostosis is noted. There is inferior lumbar facet osteoarthritis. IMPRESSION: Mild C3-C5 and moderate C5-C7 degenerative disc disease with mildbilateral C5-C7 foraminal impingement. Kwhx-on-xkpjqqvj L2-S1 degenerative disc disease, greatest at L2-L3 andL4-L5. THIS IS AN ELECTRONICALLY VERIFIED FINAL REPORT 06/08/2023 5:53 PM - Electronically signed by Michael Xiong M.D. MF: CHANI Report ID: [id number] Reading Location: [id number] La Kearney MD IMG XR PROCEDURES Fin al Result * Hemoglobin A1c (06/08/2023 8:33 AM CDT) Hgb A1C 5.3 4.0 - 5.6 % [facility] Estimated Average Glucose 105 mg/dL [facility] ([place] Comment: The ADA recommends reporting an estimated Average Glucose (eAG) with all Hemoglobin A1c results using the equation derived from a study of 507 normal and diabetic adults. ??Minority populations were underrepresented and children were not included. ?? (Diabetes Care 31:8614-7526, 2008). ??The eAG is not equivalent to a fasting glucose. Blood 06/08/2023 8:33 AM CDT 06/08/2023 9:13 AM CDT Narrative [facility] - 06/08/2023 9:47 AM CDT fasting La Kearney MD LAB BLOOD ORDERABLES Final Result [facility] ([place] [address] [facility] Department of Laboratories [place], [place] [id number] * HIV 1/2 Antibody plus p24 Antigen Blood (06/08/2023 8:33 AM CDT) Pathologist [facility] HIV 1/2 ab + p24 ag Nonreactive Nonreactive [facility] ([place]) Comment: Nonreactive for HIV-1 antigen and HIV-1/HIV-2 antibodies. No laboratory evidence of HIV infection. If acute HIV infection is suspected, consider testing for HIV-1 RNA. Testing performed by: [facility], [address] [place] [address], [place]., [address] Blood 06/08/2023 8:33 AM CDT 06/08/2023 11:10 AM CDT Narrative [facility] ([place] - 06/08/2023 12:24 PM CDT fasting La Kearney MD LAB MICROBIOLOGY - GE NERAL ORDERABLES Final Result Performing Organization Address [facility]/ZIP Co de Phone Number [facility] [address] [facility] [place] [address] * Hepatitis C antibody Blood (06/08/2023 8:33 AM CDT) Pathologist [facility] Hep C Ab Nonreactive Nonreactive Comment: Interpretive [...] last revised on 2019. Testing performed by: [facility], [address] [place] [address]., [address] Blood 06/08/2023 8:33 AM CDT 06/08/2023 11:10 AM CDT Narrative [facility] - 06/08/2023 11:46 AM CDT fasting La Kearney MD LAB MICROBIOL OGY - GENERAL ORDERABLES Edited Result - Final [facility] [address] [facility] [place] [address] * T4, free (06/08/2023 8:33 AM CDT) Pathologist [facility] Free T4 1.06 0.90 - 1.70 ng/dL [facility] ([place]) Blood 06/08/2023 8:33 AM CDT 06/08/2023 9:13 AM CDT Narrative [facility] - 06/08/2023 9:51 AM CDT fasting La Kearney MD LAB BLOOD ORDERABLES Final Result [facility] [address] [facility] [place] [address] * TSH (06/08/2023 8:33 AM CDT) Thyroid Stimulating Hormone 1.59 0.30 - 4.20 mcIUnit/mL [facility] Blood 06/08/2023 8:33 AM CDT 06/08/2023 9:13 AM CDT Narrative [facility] - 06/08/2023 9:51 AM CDT fasting La Kearney MD LAB BLOOD ORDERABLES Final Result Performing Organization Address City/[facility] Co de Phone Number [facility] [address] [facility] [place] [address] * Lipid panel (06/08/2023 8:33 AM CDT) [...] ORDERABLES Final Result [facility] [address] [facility] [place] [address] * (ABNORMAL) Comprehensive metabolic panel [...] Kearney MD LAB BLOOD ORDERABLES Final Result [facility] ([place]) [address] [facility] [place] [address] * CBC with auto differential (06/08/2023 8:33 AM CDT) WBC 4.7 3.8 - 9.9 K/cumm [facility] ([place]) Hgb 14.7 13.0 - 17.5 g/dL [facility] Hct 42.7 38.9 - 50.3 % [facility] ([place] Plt 197 150 - 400 K/cumm [facility] ([place]) MPV 10.4 9.1 - 12.3 fL [facility] ([place]) RBC 4.61 4.30 - 5.80 M/cumm [facility] MCV 92.6 81.3 - 96.4 fL [facility] ([place]) MCH 31.9 27.1 - 33.3 pg [facility] ([place] MCHC 34.4 32.3 - 35.7 g/dL [facility] RDW CV 12.4 11.1 - 14.9 % [facility] RDW SD 42.0 35.7 - 48.1 fL [facility] NRBC abs 0.00 0.00 - 0.01 K/cumm [facility] Blood 06/08/2023 8:33 AM CDT 06/08/2023 9:13 AM CDT Narrative [facility] - 06/08/2023 9:22 AM CDT fasting La Kearney MD LAB BLOOD ORDERABLES Final Result [facility] ([place]) [address] [facility] Department [place] [address] documented in this encounter Visit Diagnoses Diagnosis [...] unspecified documented in this encounter Care Teams Car Record Clerk Relationship Specialty Start Date End Date La Kearney MD [address] [place] [address] DR LUCAS [address] [place] [address] PCP - General Family Medicine 10/02/22 Mariaelena Zaidi MD Consulting Physician Sleep Medicine 07/12/21 documented as of this encounter
--- OUTSIDE RECORDS SUMMARY | 2024-09-17 14:03 | XMS_ITS | Encounter Summary ---
Author Organization [facility] Medical Group Address [address] [place] [address] Care Team Providers Care Aquatic Life Laborer Name Role Phone Mariaelena Zaidi MD Unavailable La Kearney MD Primary Care Provide r Reason for Referral * Procedure (Routine) - Closed Specialty Diagnoses / Procedures Referred By Zaida camacho Referred To Contact Diagnoses Left lateral epicondylitis Procedures Epicondylitis injection: R elbow Eileen Aj PA [address] [place] [address] [address] [place] [address] Phone: tel: fax: [facility] Medical [facility] Referral ID Status Reason Start Date Expiration Date Visits Re quested Visits Authorized [id number] Closed 03/25/2023 04/23/2024 1 1 Reason for Visit * Reason Comments Follow-up Encounter Details Date Type Department Care Team (Late st Contact Info) Description 03/25/2023 8:00 AM CDT Office Visit [facility] Orthopedics and Sports Medicine [address] [facility] [address] [place] [phone] Eileen Aj PA [address] [place] [address] [address] [place] [address] Left lateral epicondylitis (Primary Dx) Social History [...] on file 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 Gender Identity Not on file Sexual [...] Procedure Name Priority Date/Time Associated Diagnosis Comments PA INJECTION 1 TENDON SHEATH/LIGAMENT APONEUROSIS Routine 03/25/2023 8:00 AM CDT Left lateral epicondylitis documented in this encounter Results * PA INJECTION 1 TENDON SHEATH/LIGAMENT APONEUROSIS (03/25/2023 8:00 [...] Elbow documented in this encounter Care Teams Aquatic Life Laborer Relationship Specialty Start Date End Date La Kearney MD [address] [place] [address] [address] PCP - General Family Medicine 10/02/22 Mariaelena Zaidi MD Consulting Physician Sleep Medicine 07/12/21 documented as of this encounter
--- OUTSIDE RECORDS SUMMARY | 2024-09-17 14:03 | XMS_ITS | Encounter Summary ---
Author Organization [facility] Healthcare Address [address] [place] [address] Care Team Providers Care Emd Special Education Teacher Name Role Phone Mariaelena Zaidi MD Unavailable La Kearney MD Primary Care Provide r Reason for Referral * Diagnostic Imaging (Routine) - Closed Specialty Diagnoses / Procedures Referred By Zaida t Referred To Contact Diagnoses Inguinal hernia without obstruction or gangrene, recurrence not specified, unspecified laterality Right groin pain Procedures US Groin Mass Hernia Right Ramos Fraga MD Phone: tel: fax: [address] [phone] Referral ID Status Reason Start Date Expiration Date Visits Re quested Visits Authorized [id number] Closed 11/20/2022 12/20/2023 1 1 Reason for Visit * Diagnostic Imaging (Routine) - Closed Specialty Diagnoses / Procedures Referred By Zaida camacho Referred To Contact Diagnoses Inguinal hernia without obstruction or gangrene, recurrence not specified, unspecified laterality Right groin pain Procedures US Groin Mass Hernia Right Ramos Fraga MD Phone: tel: fax: [address] [phone] Referral ID Status Reason Start Date Expiration Date Visits Re quested Visits Authorized [id number] Closed 11/20/2022 12/20/2023 1 1 Encounter Details Date Type Department Care Team (Latest Contact Info) Description 01/04/2023 7:13 AM CDT - 01/04/2023 11:59 PM CDT Hospital Encounter [facility] [address] [place] [address] Inguinal hernia without obstruction or gangrene, recurrence [...] on file 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 Assess for hernia. TECHNIQUE: A Dynamic assessment was performed of the right groin andinguinal region by the wage and salary administrator, with selected grayscale and color Dopplerimages acquired [...] Ziggy Almaguer M.D. CH: SWETHA Report ID: [id number] Reading Location: [place] [address] us Ramos Rogers Fraga MD IMG US PROCEDURE S Final Result documented in this encounter Visit Diagnoses Diagnosis Inguinal hernia without obstruction or gangrene, recurrence not specified, unspecified laterality Right groin pain Abdominal pain, right lower quadrant documented in this encounter Care Teams Emd Special Education Teacher Relationship Specialty Start Date End Date La Kearney MD [address] [place] [address] DR LUCAS [address] [place] [address] PCP - General Family Medicine 10/02/22 Mariaelena Zaidi MD Consulting Physician Sleep Medicine 07/12/21 documented as of this encounter
--- OUTSIDE RECORDS SUMMARY | 2024-09-17 14:03 | XMS_ITS | Encounter Summary ---
Author Organization [facility] Medical Group Address [address] [facility] [place] [address] Care Team Providers Care Dye Lab Technician Name Role Phone Mariaelena Zaidi MD Unavailable La Kearney MD Primary Care Provide r Reason for Visit * Diagnostic Imaging (Routine) - Closed Specialty Diagnoses / Procedures Referred By Zaida camacho Referred To Contact Diagnoses Left elbow pain Procedures XR Elbow Left 3 or More Views Eileen Aj PA [address] [place] [address] Phone: tel: fax: [facility] Medical Group Referral ID Status Reason Start Date Expiration Date Visits Re quested Visits Authorized [id number] Closed 12/24/2022 01/23/2024 1 1 Encounter Details Date Type Department Care Team (Latest Contact Info) Description 12/24/2022 7:43 AM CDT - 12/24/2022 11:59 PM CDT Hospital Encounter [facility] Medical Group Orthopedics and Sports Medicine [address] [facility] [address] [place] [id number] Discharge Disposition: Discharge to home or self [...] file 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
--- OUTSIDE RECORDS SUMMARY | 2024-09-17 14:03 | XMS_ITS | Encounter Summary ---
Author Organization [facility] Medical Group Address [address] [facility] [address] [place] [address] Care Team Providers Care Air Traffic Control Equipment Repairer Name Role Phone Mariaelena Zaidi MD Unavailable La Kearney MD Primary Care Provide r Reason for Visit * Reason Comments Abdominal Pain Encounter Details Date Type Department Care Team (Late st Contact Info) Description 11/12/2022 1:45 PM UPS DRIVER Office Visit [facility] Primary Care at [address] [place] [address] Sam Curry PA [address] [place] [address] [address] [place], [place] [id number] Right inguinal hernia (Primary Dx); Class 2 [...] on file 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 Gender Identity Not on file Sexual Orientation Not on file documented as of this encounter Last Filed Vital Signs Vital Sign Reading Time Taken Comments Blood Pressure 120/70 11/12/2022 1:49 PM UPS DRIVER Pulse 72 11/12/2022 1:49 PM UPS DRIVER Temperature - - Respiratory Rate 16 11/12/2022 1:49 PM UPS DRIVER Oxygen Saturation 95% 11/12/2022 1:49 PM UPS DRIVER Inhaled Oxygen Concentration - - Weight 127.7 kg (281 lb 9.6 oz) 11/12/2022 1:49 PM UPS DRIVER Height 188 cm (6' 2 ) 11/12/2022 1:49 PM UPS DRIVER Body Mass Index 36.16 11/12/2022 1:49 PM UPS DRIVER documented in this encounter Patient Instructions * Patient Instructions* Sam Curry PA - 11/12/2022 1:45 PM UPS DRIVER My medical parasitologist, Victor Manuel, and I are thankful you [...] not feeling your best! -Sam Curry PA-C DRIVER documented in this encounter Ordered Prescriptions Prescription [...] FA. inc pain w/ supination w/ resistance. supervisor shipping room symmeric and intact) present. Skin: Findings: No [...] in agreement with the plan of care. DRIVER documented in this encounter Plan of [...] epicondylitis documented in this encounter Care Teams Air Traffic Control Equipment Repairer Relationship Specialty Start Date End Date La Kearney MD [address] [place] [address] DR LUCAS [address] [place] [address] PCP - General Family Medicine 10/02/22 Mariaelena Zaidi MD Consulting Physician Sleep Medicine 07/12/21 documented as of this encounter
--- OUTSIDE RECORDS SUMMARY | 2024-09-17 14:03 | XMS_ITS | Encounter Summary ---
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 73 m2 [facility] [...] LAB BLOOD ORDERABLES Final Result [facility] ([place]) 1 [facility] Department [place] [address] * Differential, auto (06/08/2023 8:33 AM CDT) [...] revised on 2017. Monocyte pct 8.1 % [facility] ([place]) Comment: Interpretive Data Percent cell [...] LAB BLOOD ORDERABLES Final Result [facility] ([place]) 1 [facility] [place] [address] * CBC with auto differential (06/08/2023 8:33 [...] ([place]HE[place]) MCHC 34.4 32.3 - 35.7 g/dL [facility] ([place] RDW CV 12.4 11.1 - 14.9 % [facility] ([place]) RDW SD 42.0 35.7 - 48.1 fL [facility] ([place]) NRBC abs 0.00 0.00 - 0.01 K/cumm [facility] ([place] Blood 06/08/2023 8:33 AM CDT 06/08/2023 9:13 AM CDT Narrative [facility] ([place] - 06/08/2023 9:22 AM CDT fasting La Kearney MD LAB BLOOD ORDERABLES Final Result [facility] ([place]) 1 [facility] [place] [address] * (ABNORMAL) Comprehensive metabolic panel (06/08/2023 8:33 AM CDT) Sodium 140 135 - 145 mmol/L [facility] ([place]) Potassium, pl 4.1 3.3 - 4.9 mmol/L [facility] ([place]) Chloride 106 97 - 110 mmol/L [facility] ([place]) CO2 24 22 - 32 mmol/L [facility] ([place]) Anion gap 11 2 - 15 mmol/L [facility] ([place]) BUN 14 6 - 25 mg/dL [facility] ([place]) Creatinine 1.12 0.80 - [...] ORDERABLES Final Result [facility] ([place]) 1 [facility] Department [place] [address] * Lipid panel (06/08/2023 8:33 AM CDT) [...] revised on 2018. HDL 43 >=40 mg/dL [facility] ([place]) Comment: Interpretive Data Ages < [...] BLOOD ORDERABLES Final Result [facility]) 1 [facility] [place] [address] * TSH (06/08/2023 8:33 AM CDT) [facility] Thyroid Stimulating Hormone 1.59 0.30 - 4.20 mcIUnit/mL [facility] Aguilera[facility]HEED) Blood 06/08/2023 8:33 AM CDT 06/08/2023 9:13 AM CDT Narrative [facility] ([place]) - 06/08/2023 9:51 AM CDT fasting La Kearney MD LAB BLOOD ORDERABLES Final Result [facility]) 1 [facility] [place] [address] * T4, free (06/08/2023 8:33 AM CDT) [facility] Free T4 1.06 0.90 - 1.70 ng/dL [facility] ([place]) Blood 06/08/2023 8:33 AM CDT 06/08/2023 9:13 AM CDT Narrative [facility]) - 06/08/2023 9:51 AM CDT fasting La Kearney MD LAB BLOOD ORDERABLES Final Result [facility] Aguilera[facility]HEED) 1 [facility] [place] [address] * Hepatitis C antibody Blood (06/08/2023 8:33 AM CDT) [facility] Hep C Ab Nonreactive Nonreactive Comment: [...] revised on 2019. Testing performed by: [facility], [address] [place] [address]., [address] Blood 06/08/2023 8:33 AM CDT 06/08/2023 11:10 AM CDT Narrative [facility] ([place]) - 06/08/2023 11:46 AM CDT fasting La Kearney MD LAB MICROBIOL OGY - GENERAL ORDERABLES Edited Result - Final [facility] ([place]) 1 [facility] [place] [address] * HIV 1/2 Antibody plus p24 Antigen Blood (06/08/2023 8:33 AM CDT) Pathologist [facility] HIV 1/2 ab + p24 ag Nonreactive Nonreactive [facility] ([place]) Comment: Nonreactive for HIV-1 antigen and HIV-1/HIV-2 antibodies. No laboratory evidence of HIV infection. If acute HIV infection is suspected, consider testing for HIV-1 RNA. Testing performed by: [facility], [address] [place] [address]., [address] Blood 06/08/2023 8:33 AM CDT 06/08/2023 11:10 AM CDT Narrative [facility] ([place]) - 06/08/2023 12:24 PM CDT fasting La Kearney MD LAB MICROBIOLOGY - GE NERAL ORDERABLES Final Result [facility] ([place]) 1 [facility] [place] [address] * Hemoglobin A1c (06/08/2023 8:33 AM CDT) Hgb A1C 5.3 4.0 - 5.6 % [facility] ([place]) Estimated Average Glucose 105 mg/dL [facility] ([place]) Comment: The ADA recommends reporting an estimated Average Glucose (eAG) with all Hemoglobin A1c results using the equation derived from a study of 507 normal and diabetic adults. ??Minority populations were underrepresented and children were not included. ?? (Diabetes Care 31:4706-6390, 2008). ??The eAG is not equivalent to a fasting glucose. Blood 06/08/2023 8:33 AM CDT 06/08/2023 9:13 AM CDT Narrative [facility] ([place]) - 06/08/2023 9:47 AM CDT fasting La Kearney MD LAB BLOOD ORDERABLES Final Result [facility] ([place]) 1 [facility] Department [place] [address] documented in this encounter Visit Diagnoses Diagnosis Mixed hyperlipidemia Essential hypertension Unspecified essential hypertension IGT (impaired glucose tolerance) Impaired glucose tolerance test Encounter for screening for HIV Need for hepatitis C screening test Special screening examination for other specified viral diseases documented in this encounter Care Teams Multineedle Shirrer Relationship Specialty Start Date End Date La Kearney MD 2 [facility] [address] [address] PCP - General Family Medicine 10/02/22 Mariaelena Zaidi MD Consulting Physician Sleep Medicine 07/12/21 documented as of this encounter
--- OUTSIDE RECORDS SUMMARY | 2024-09-17 14:03 | XMS_ITS | Encounter Summary ---
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 Source: [facility] Current Interpretive Data was last revised on [...] ORDERABLES Final Result [facility] ([place]) 1 [facility] Department [place] [address] * Albumin Creatinine Ratio, Urine (06/22/2023 7:25 AM CDT) Albumin Ur <12.0 mg/L Comment: Interpretive Data No reference range established. Current interpretive data was last revised 2019. Testing performed by: [facility], [address] [place] [address]., [id number] Creatinine Ur 195.5 mg/dL [facility] ([place]) Comment: Interpretive Data No reference range established. Current interpretive data was last revised 2019. Testing performed by: [address] [address] Albumin Creatinine Ratio, Ur <6 1 - 29 mg/g [facility] ([place]) Comment:Testing performed by : [address] [address] Urine 06/22/2023 7:25 AM CDT 06/22/2023 11:51 AM CDT us La Kearney MD LAB URINE ORDERABLES Final Result [facility] ([place]) 1 [facility] Department [place] [address] documented in this encounter Visit Diagnoses Diagnosis Acute kidney injury (HCC) documented in this encounter Care Teams Sampler Ovens Relationship Specialty Start Date End Date La Kearney MD 2 [facility] [address] [address] PCP - General Family Medicine 10/02/22 Mariaelena Zaidi MD Consulting Physician Sleep Medicine 07/12/21 documented as of this encounter
--- OUTSIDE RECORDS SUMMARY | 2024-09-17 14:03 | XMS_ITS | Encounter Summary ---
Author Organization [facility] Medical Group Address [address] [facility] [address] [place] [address] Care Team Providers Care Community Aide Name Role Phone Mariaelena Zaidi MD Unavailable La Kearney MD Primary Care Provide r Encounter Details Date Type Department Care Team (Late st Contact Info) Description 10/02/2022 Orders Only [facility] Primary Care at [address] [place] [address] La Kearney MD [address] [place] [address] [address] [place] [address] Essential hypertension (Primary Dx); IGT [...] file 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 Gender Identity Not on file Sexual Orientation Not on file documented as of this encounter Plan of Treatment Not on file documented as of this encounter Visit Diagnoses Diagnosis Essential hypertension- Primary Unspecified essential hypertension IGT (impaired glucose tolerance) Impaired glucose tolerance test Healthcare maintenance documented in this encounter Care Teams Community Aide Relationship Specialty Start Date End Date La Kearney MD [address] [facility] [address] [place] [address] [place] [address] PCP - General Family Medicine 10/02/22 Mariaelena Zaidi MD Consulting Physician Sleep Medicine 07/12/21 documented as of this encounter
--- OUTSIDE RECORDS SUMMARY | 2024-09-17 14:03 | XMS_ITS | Encounter Summary ---
Author Organization [facility] [email or web address] [facility] Address [address] [place] [address] Phone Care Team Providers Care Chief Operator Reformer Name Role Phone Regina Laura PHILLIPS Primary Care Provider [phone] Mariaelena Zaidi MD Unavailable Encounter Details Date Type Department Care Team (Late st Contact Info) Description 07/17/2022 Orders Only [facility] [place] Urology [address] [place] [address] [address] [place] [address] [place] [address] [facility] [address] [facility] [address] [place] [address] Retention of urine (Primary Dx); [...] on file 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
--- OUTSIDE RECORDS SUMMARY | 2024-09-17 14:03 | XMS_ITS | Encounter Summary ---
Author Organization [facility] Address [address] [place] [address] Phone Care Team Providers Care Maintenance Advisor Name Role Phone Laura Tapia NP Primary Care Provider [phone] Mariaelena Zaidi MD Unavailable Reason for Visit * Reason Comments Follow-up * Consultation (Routine) - Closed Specialty Diagnoses / Procedures Referred By Zaida camacho Referred To Contact Urology Diagnoses Urinary frequency Incomplete emptying of bladder Microscopic hematuria Laura Tapia NP Phone: tel: fax: Chantal Carvajal NP Phone: tel: fax: Referral ID Status Reason Start Date Expiration Date V isits Requested Visits Authorized [id number] Closed Specialty Services Required 04/04/2022 05/04/2023 99 99 Encounter Details Date Type Department Care Team (Late st Contact Info) Description 08/20/2022 10:00 AM INSTRUMENTATION SUPERVISOR Office Visit 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 Gender Identity Not on file Sexual Orientation Not on file documented as of this encounter Last Filed Vital Signs Vital Sign Reading Time Taken Comments Blood Pressure - - Pulse - - Temperature 37.2 ??C (99 ??F) 08/20/2022 9:45 AM INSTRUMENTATION SUPERVISOR Respiratory Rate - - Oxygen Saturation - [...] 05/25/2020 Added automatically from request for surgery [id number] Sleep apnea Urinary retention Past Surgical History: [...] MD Faculty, Urology division, Department of surgery, [facility] [employer] ([facility]) [facility] [place] ([facility]) RUMENTATION SUPERVISOR documented in this encounter Plan of Treatment Not on file documented as of this encounter Procedures Procedure Name Priority Date/Time Associated Diagnosis Comments POCT URINALYSIS DIPSTICK Routine 08/20/2022 9:50 AM INSTRUMENTATION SUPERVISOR Retention of urine documented in this encounter Results * POCT urinalysis dipstick (08/20/2022 9:50 AM INSTRUMENTATION SUPERVISOR) Glucose, ur, POC Negative Negative MG/DL Ketones, ur, POC Negative Negative Blood, ur, POC Negative Negative pH, ur, POC 6.0 5.0 - 8.0 Protein, ur, POC Negative Negative Nitrite, ur, POC Negative Negative Leukocytes, ur, POC Negative Negative Lot Number 0 Urine 08/20/2022 9:50 AM INSTRUMENTATION SUPERVISOR Jozef Nina MD POINT OF CARE TEST ORDERABLES Final Result documented in this encounter Visit Diagnoses Diagnosis Retention of urine- Primary Unspecified retention of urine documented in this encounter Care Teams Maintenance Advisor Relationship Specialty Start Date End Date Laura Tapia NP PCP - General Family Medicine 09/30/19 10/01/22 Mariaelena Zaidi MD Consulting Physician Sleep Medicine 07/12/21 documented as of this encounter
--- OUTSIDE RECORDS SUMMARY | 2024-09-17 14:03 | XMS_ITS | Encounter Summary ---
Author Organization [facility] Medical Group Address [address] [facility] [address] [place] [address] Care Team Providers Care System Engineer Name Role Phone Mariaelena Zaidi MD Unavailable La Kearney MD Primary Care Provide r Reason for Referral * Consultation (Routine) - Closed Specialty Diagnoses / Procedures Referred By Zaida t Referred To Contact Orthopedic Surgery Diagnoses Right lateral epicondylitis La Kearney MD [address] [place] [address] [facility] [address] [place] [address] Phone: tel: fax: Clem Bedoya MD [address] [place] [address] [facility] [address] [place] [address] Phone: tel: fax: Referral ID Status Reason Start Date Expiration Date V isits Requested Visits Authorized [id number] Closed Specialty Services Required 12/03/2022 01/02/2024 1 1 Question Answer Please select the performing region: [facility] [[id number]] Please select the performing department: [facility] [[id number]] To provider: CLEM BEDOYA [[id number]] # of visits: 1 Encounter Details Date Type Department Care Team (Late st Contact Info) Description 12/03/2022 Orders Only [facility] Primary Care at [address] [place] [address] La Kearney MD [address] [facility] [address] [place] [address] Right lateral epicondylitis (Primary Dx) Social History [...] on file 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 Gender Identity Not on file Sexual Orientation Not on file documented as of this encounter Plan of Treatment Scheduled Referrals Name Type Priority Associated Diagnoses Orde r Schedule Ambulatory referral to Orthopedic Surgery Outpatient Referral Routine Right lateral epicondylitis Expected: 12/03/2022 (Approximate), Expires: 12/04/2023 documented as of this encounter Visit Diagnoses Diagnosis Right lateral epicondylitis- Primary documented in this encounter Care Teams System Engineer Relationship Specialty Start Date End Date La Kearney MD [address] [facility] [address] [place] [address] PCP - General Family Medicine 10/02/22 Mariaelena Zaidi MD Consulting Physician Sleep Medicine 07/12/21 documented as of this encounter
--- OUTSIDE RECORDS SUMMARY | 2024-09-17 14:03 | XMS_ITS | Encounter Summary ---
Author Organization [facility] Medical [facility] Address [address] 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 R FABRICATION TECHNICIAN * Telephone Encounter - Yolanda Machado MA - 11/15/2022 9:24 AM CST I spoke with the Rhiannon yesterday. I faxed an order to [facility] for patient supplies, as she requested. The faxed was confirmed. Can you please try faxing another order marked for new supplies/patientchoice? R FABRICATION TECHNICIAN * Telephone Encounter - Mariaelena Zaidi MD - 11/15/2022 9:06 AM CST We switched DME last time from MW last visit. Can you please see which DME we sent it to and if they need new Rx for supplies? R FABRICATION TECHNICIAN * Telephone Encounter - Ranjit Omer - 11/15/2022 7:20 AM CST Patient's spouse (Rhiannon) left a VM stating that patient has not received CPAP supplies. I did not see an order for new supplies to be sent. Please advise. R FABRICATION TECHNICIAN documented in this encounter Plan of Treatment Not on file documented as of this encounter Visit Diagnoses Not on filedocumented in this encounter Care Teams Pneumatic Tester Relationship Specialty Start Date End Date La Kearney MD [address] [place] [address] DR [address] [place] [address] PCP - General Family Medicine 10/02/22 Mariaelena Zaidi MD Consulting Physician Sleep Medicine 07/12/21 documented as of this encounter
--- OUTSIDE RECORDS SUMMARY | 2024-09-17 14:03 | XMS_ITS | Encounter Summary ---
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 Testing performed by: [address] [address] Creatinine Ur 195.5 mg/dL [facility] ([place]) Comment: Interpretive Data No reference range established. Current interpretive data was last revised 2019. Testing performed by: [address] [address] Albumin Creatinine Ratio, Ur <6 1 - 29 mg/g [facility] ([place]) Comment:Testing performed by : [address] [address] Urine 06/22/2023 7:25 AM CDT 06/22/2023 11:51 AM CDT us La Kearney MD LAB URINE ORDERABLES Final Result [facility] ([place]) 1 [facility] [place] [address] * Urinalysis reflex to microscopic (06/22/2023 7:25 [...] tendency for uric acid stone formation. Source: [facility] Current Interpretive Data was last revised on 2017 Protein, ur ql Negative Negative [facility] ([place]) Glucose, ur ql Negative Negative [facility] ([place]) Ketones, ur Negative Negative [facility] ([place]) Bilirubin, ur Negative Negative [facility] ([place]) Blood, ur Negative Negative [facility] ([place]) Urobilinogen, ur <2.0 <2.0 mg/dL [facility] ([place]) Nitrite, ur Negative Negative [facility] ([place]) Leukocyte esterase, ur Negative Negative [facility] ([place]) UA reflex comment Reflex conditions for microscopic UA not met. [facility] ([place]) Urine 06/22/2023 7:25 AM CDT 06/22/2023 8:14 AM CDT La Kearney MD LAB URINE ORDERABLES Final Result [facility] ([place]) 1 [facility] [place] [address] * Comprehensive metabolic panel (06/22/2023 7:25 AM [...] ORDERABLES Final Result [facility] ([place]) 1 [facility] [place] [address] documented in this encounter Visit Diagnoses Diagnosis Acute kidney injury (HCC)- Primary documented in this encounter Care Teams Senior Packaging Engineer Relationship Specialty Start Date End Date La Kearney MD [address] [facility] [address] [place] [address] PCP - General Family Medicine 10/02/22 Mariaelena Zaidi MD Consulting Physician Sleep Medicine 07/12/21 documented as of this encounter
--- OUTSIDE RECORDS SUMMARY | 2024-09-17 14:03 | XMS_ITS | Encounter Summary ---
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
--- OUTSIDE RECORDS SUMMARY | 2024-09-17 14:03 | XMS_ITS | Encounter Summary ---
Author Organization [facility] Address [address] [facility] [address] [place] [address] Care Team Providers Care Internet Programmer Name Role Phone Laura Tapia NP Primary Care Provider [phone] Mariaelena Zaidi MD Unavailable Encounter Details Date Type Department Care Team (Late st Contact Info) Description 08/22/2022 Orders Only [facility] Primary Care at [address] [place] [address] Sam Curry PA [address] [place] [address] [address] [place], [place] [id number] Restless legs syndrome Social History Tobacco Use [...] on file 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
--- OUTSIDE RECORDS SUMMARY | 2024-09-17 14:03 | XMS_ITS | Encounter Summary ---
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
--- OUTSIDE RECORDS SUMMARY | 2024-09-17 14:03 | XMS_ITS | Encounter Summary ---
Author Organization [facility] Address [address] [facility] [address] [place] [address] Care Team Providers Care Metallurgical Engineering Teacher Name Role Phone Mariaelena Ziadi MD Unavailable La Kearney MD Primary Care Provide r Reason for Visit * Reason Comments Hypertension Follow up Encounter Details Date Type Department Care Team (Late st Contact Info) Description 06/06/2023 4:45 PM CDT Office Visit [facility] Primary Care at [address] [place] [address] La Kearney MD [address] [place] [address] [address] [place] [address] Encounter for wellness examination (Primary [...] on file 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 Past Medical History: Diagnosis Date Anxiety disorder Anxiety Depression Depression Enlarged prostate Erectile dysfunction Generalized abdominal pain 06/27/2019 GERD (gastroesophageal reflux disease) Hemorrhoids Hyperlipidemia Hypertension Hypoglycemia Palpitation Rectal pain 05/25/2020 Added automatically from request for surgery [id number] Sleep apnea Urinary retention No Known Allergies [...] ur, POC 01/29/2023 Negative Lot Number 01/29/2023 [id number] Physical Exam Constitutional: General: He is not [...] Note - La Kearney MD - 06/06/2023 5:13 PM CDT Associated [...] monitor. * Assessment & Plan Note - La [...] documented as of this encounter Care Teams Metallurgical Engineering Teacher Relationship Specialty Start Date End Date La Kearney MD [address] [facility] [address] [place] [address] PCP - General Family Medicine 10/02/22 Mariaelena Zaidi MD Consulting Physician Sleep Medicine 07/12/21 documented as of this encounter
--- OUTSIDE RECORDS SUMMARY | 2024-09-17 14:03 | XMS_ITS | Encounter Summary ---
Author Organization [facility] [employer] [facility] Address [address] [place] [address] Phone Care Team Providers Care Shank Cementer Hand Name Role Phone Mariaelena Zaidi MD Unavailable La Kearney MD Primary Care Provide r Reason for Visit * Reason Comments Follow-up * Consultation (Routine) - Closed Specialty Diagnoses / Procedures Referred By Conttom t Referred To Contact Urology Diagnoses Retention of urine Laura Tapia NP [address] [place] [address] Phone: tel: fax: [facility] (All Locations) Referral ID Status Reason Start Date Expiration Date V isits Requested Visits Authorized [id number] Closed Specialty Services Required 08/20/2022 09/19/2023 1 1 Encounter Details Date Type Department Care Team (Late st Contact Info) Description 01/29/2023 2:40 PM CDT Office Visit [facility]) - [facility] Urology [address] [facility] [address], [place] [address] Shaggy Jang MD [address] [place] [address] [address], [place] [address] Retention of urine (Primary Dx); [...] on file 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 Gender Identity Not on file Sexual [...] Leukocytes, ur, POC Negative Negative Lot Number [id number] Lab Results Component Value Date PSA 3.65 [...] Leukocytes, ur, POC Negative Negative Lot Number [id number] Urine 01/29/2023 3:58 PM CDT Shaggy Jang MD POINT OF CARE TEST BRO ANDRADE Final Result * Measure post void residual (01/29/2023) Narrative Paula Rojas CRNA - 01/29/2023 Measurement of post-voiding residual urine [...] 01/29/2023 documented in this encounter Care Teams Shank Cementer Hand Relationship Specialty Start Date End Date La Kearney MD [address] [facility] [address] [address] PCP - General Family Medicine 10/02/22 Mariaelena Zaidi MD Consulting Physician Sleep Medicine 07/12/21 documented as of this encounter
--- OUTSIDE RECORDS SUMMARY | 2024-09-17 14:03 | XMS_ITS | Encounter Summary ---
Author Organization [facility] Address [address] [place] [address] Phone Care Team Providers Care Radiosonde Operator Name Role Phone Laura Tapia NP Primary Care Provider [phone] Mariaelena Zaidi MD Unavailable Reason for Visit * Reason Comments Post-op * Consultation (Routine) - Closed Specialty Diagnoses / Procedures Referred By Zaida camacho Referred To Contact Urology Diagnoses Urinary frequency Incomplete emptying of bladder Microscopic hematuria Laura Tapia NP Phone: tel: fax: Chantal Carvajal NP Phone: tel: fax: Referral ID Status Reason Start Date Expiration Date V isits Requested Visits Authorized [id number] Closed Specialty Services Required 04/04/2022 05/04/2023 99 99 Encounter Details Date Type Department Care Team (Late st Contact Info) Description 07/23/2022 1:20 PM MARINE PHOTOGRAPHER Office Visit [facility]) - [facility] Urology [address] [facility] [address] [place] [address] [place] [address] [place] [address] Retention of urine (Primary Dx) [...] file 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 Gender Identity Not on file Sexual Orientation [...] 05/25/2020 Added automatically from request for surgery [id number] Sleep apnea Urinary retention Past Surgical History: [...] MD Faculty, Urology division, Department of surgery, [employer] ([facility]) [facility] [place] ([facility]) NE PHOTOGRAPHER documented in this encounter Plan of Treatment [...] 08/22/2022 added in this encounter Care Teams Radiosonde Operator Relationship Specialty Start Date End Date Laura Tapia NP PCP - General Family Medicine 09/30/19 10/01/22 Mariaelena Zaidi MD Consulting Physician Sleep Medicine 07/12/21 documented as of this encounter
--- OUTSIDE RECORDS SUMMARY | 2024-09-17 14:03 | XMS_ITS | Encounter Summary ---
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 Gender Identity Not on file Sexual [...] standards) [facility]) Comment:Testing performed by : [facility], [address] [facility] [place]., [address] Organism (CLINICALLY INSIGNIFICANT GROWTH [facility] (SHAHEED) Urine, clean voided 07/04/2022 9:32 AM CDT 07/04/2022 4:37 PM CDT Narrative [facility]) - 07/05/2022 6:13 PM CDT Testing performed by [facility] Microbiology Laboratory ([phone]) us Jozef Nina MD LAB MICROBIOLOGY - GENERAL OR DERABLES Final Result [facility]) [address] [facility] Department [place] [address] documented in this encounter Visit Diagnoses Diagnosis Acute cystitis without hematuria documented in this encounter Care Teams Lamination Technician Relationship Specialty Start Date End Date Laura Tapia NP PCP - General Family Medicine 09/30/19 10/01/22 Mariaelena Zaidi MD Consulting Physician Sleep Medicine 07/12/21 documented as of this encounter
--- OUTSIDE RECORDS SUMMARY | 2024-09-17 14:03 | XMS_ITS | Encounter Summary ---
Author Organization [facility] Address [address] [facility] [address] [place] [address] Care Team Providers Care Conveyor System Dispatcher Name Role Phone Mariaelena Zaidi MD Unavailable La Kearney MD Primary Care Provide r Reason for Visit * Reason Comments New Patient Encounter Details Date Type Department Care Team (Late st Contact Info) Description 10/02/2022 1:00 PM REFRESH TECHNICIAN Office Visit [facility] Primary Care at [address] [place] [address] La Kearney MD [address] [place] [address] [address] [place] [address] Essential hypertension (Primary Dx); Class [...] on file 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 TECHNICIAN Gender Identity Not on file Sexual Orientation Not on file documented as of this encounter Last Filed Vital Signs Vital Sign Reading Time Taken Comments Blood Pressure 138/76 10/02/2022 1:01 PM REFRESH TECHNICIAN Pulse 67 10/02/2022 1:01 PM REFRESH TECHNICIAN Temperature - - Respiratory Rate 18 10/02/2022 1:01 PM REFRESH TECHNICIAN Oxygen Saturation 94% 10/02/2022 1:01 PM REFRESH TECHNICIAN Inhaled Oxygen Concentration - - Weight 125.6 kg (277 lb) 10/02/2022 1:01 PM REFRESH TECHNICIAN Height 188 cm (6' 2.02 ) 10/02/2022 1:01 PM REFRESH TECHNICIAN Body Mass Index 35.55 10/02/2022 1:01 PM REFRESH TECHNICIAN documented in this encounter Progress Notes * La Kearney MD - 10/02/2022 1:00 PM CST Images from the original note were not included. Subjective/Objective Patient ID: Jaden De La Torre is a 52 y.o. male. Chief Complaint New Patient HPI 52M coming in to [facility] care. He had prostate surgery in June. [...] the plan of care. La Kearney MD ESH TECHNICIAN documented in this encounter Miscellaneous Notes * Assessment & Plan Note - La Kearney MD - 10/02/2022 1:20 PM REFRESH TECHNICIAN Associated Problem(s): Obstructive sleep apnea syndrome Continue following with sleep medicine They recently increased his pressure ESH TECHNICIAN * Assessment & Plan Note - La Kearney MD - 10/02/2022 1:19 PM REFRESH TECHNICIAN Associated Problem(s): Encounter for wellness examination Med list and problem list reviewed ESH TECHNICIAN * Assessment & Plan Note - La Kearney MD - 10/01/2022 9:33 PM REFRESH TECHNICIAN Associated Problem(s): Essential hypertension Bp in the office today BP Readings from Last 1 Encounters: 10/02/22 138/76 Continue current regimen Recommend DASH diet, heart-healthy lifestyle, exercise. Discussed the risks of hypertension. F/u in 6 months ESH TECHNICIAN ESH TECHNICIAN documented in this encounter Plan of [...] (pediatric) documented in this encounter Care Teams Conveyor System Dispatcher Relationship Specialty Start Date End Date La Kearney MD [address] [place] [address] [address] [place] [address] PCP - General Family Medicine 10/02/22 Mariaelena Zaidi MD Consulting Physician Sleep Medicine 07/12/21 documented as of this encounter
--- OUTSIDE RECORDS SUMMARY | 2024-09-17 14:03 | XMS_ITS | Encounter Summary ---
Author Organization [facility] Address [address] [facility] [address] [place] [address] Care Team Providers Care Law Examiner Name Role Phone Mariaelena Zaidi MD Unavailable La Kearney MD Primary Care Provide r Reason for Referral * Procedure (Routine) - Closed Specialty Diagnoses / Procedures Referred By Contac t Referred To Contact Diagnoses Left lateral epicondylitis Procedures Epicondylitis injection: L elbow Eileen Aj PA [address] [facility] [address] [place] [address] Phone: tel: fax: [facility] Referral ID Status Reason Start Date Expiration Date Visits Re quested Visits Authorized [id number] Closed 12/24/2022 01/23/2024 1 1 * Diagnostic Imaging (Routine) - Closed Specialty Diagnoses / Procedures Referred By Contac t Referred To Contact Diagnoses Left elbow pain Procedures XR Elbow Left 3 or More Views Eileen Aj PA [address] [facility] [address] [place] [address] Phone: tel: fax: [facility] Referral ID Status Reason Start Date Expiration Date Visits Re quested Visits Authorized [id number] Closed 12/24/2022 01/23/2024 1 1 Reason for Visit * Reason Comments Pain * Consultation (Routine) - Closed Specialty Diagnoses / Procedures Referred By Zaida t Referred To Contact Orthopedic Surgery Diagnoses Right lateral epicondylitis La Kearney MD [address] [facility] [address] [place] [address] Phone: tel: fax: Clem Bedoya MD [address] [facility] [address] [place] [address] Phone: tel: fax: Referral ID Status Reason Start Date Expiration Date V isits Requested Visits Authorized [id number] Closed Specialty Services Required 12/03/2022 01/02/2024 1 1 Encounter Details Date Type Department Care Team (Late st Contact Info) Description 12/24/2022 8:00 AM CDT Office Visit [facility] Orthopedics and Sports Medicine [address] [facility] [address] [place] [address] Eileen Aj PA [address] [facility] [address] [place] [address] Left lateral epicondylitis (Primary Dx); Left elbow [...] file 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 He has tried Medrol Dosepak and [...] nausea and vomiting), Seizures (HCC), or Stroke ([facility]). PAST SURGICAL HISTORY He has a past [...] visit to develop home exercise program at [facility] at his request. Advised further [...] 12/24/2022 8:12 AM CDT Left elbow pain [place] INJECTION 1 TENDON SHEATH/LIGAMENT APONEUROSIS Routine 12/24/2022 [...] IMG XR PROCEDURES Gisele l Result * [place] INJECTION 1 TENDON SHEATH/LIGAMENT APONEUROSIS (12/24/2022 8:00 [...] 2022 documented in this encounter Care Teams Law Examiner Relationship Specialty Start Date End Date La Kearney MD [address] [place] [address] [place] [address] PCP - General Family Medicine 10/02/22 Mariaelena Zaidi MD Consulting Physician Sleep Medicine 07/12/21 documented as of this encounter
--- OUTSIDE RECORDS SUMMARY | 2024-09-17 14:03 | XMS_ITS | Encounter Summary ---
Author Organization [facility] Address [address] [facility] [address] [place] [address] Care Team Providers Care Extension Course Counselor Name Role Phone Laura Tapia NP Primary Care Provider [phone] Mariaelena Zaidi MD Unavailable Reason for Visit * Reason Onset Date Comments Med Refill 08/22/2022 Call Back 08/22/2022 Medication Request 08/22/2022 Encounter Details Date Type Department Care Team (Late st Contact Info) Description 08/22/2022 Telephone [facility] at [address] [address] Laura Tapia NP [address] [place] [address] Med Refill; Call Back; Medication Request [...] on file 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 Advised patient this has been sent into his pharmacy Caller???s Call back #: [phone] Does message need to be routed? No MATIC GRINDING MACHINE OPERATOR * Telephone Encounter - Sam Curry PA - 08/22/2022 10:31 AM AUTOMATIC GRINDING MACHINE OPERATOR I sent in refill to hold him over until NOV MATIC GRINDING MACHINE OPERATOR * Telephone Encounter - Daniella Dumont. 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 Pharmacy (s) medication(s) should be sent to: [facility] [place] Caller's Callback #: [phone] Additional Comments: Patient is almost out of his medicine. Does message need to be routed? Yes-Action Needed MATIC GRINDING MACHINE OPERATOR documented in this encounter Plan of Treatment Not on file documented as of this encounter Visit Diagnoses Not on filedocumented in this encounter Care Teams Extension Course Counselor Relationship Specialty Start Date End Date Laura Tapia NP PCP - General Family Medicine 09/30/19 10/01/22 Mariaelena Zaidi MD Consulting Physician Sleep Medicine 07/12/21 documented as of this encounter
--- OUTSIDE RECORDS SUMMARY | 2024-09-17 14:03 | XMS_ITS | Encounter Summary ---
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 Pt is rtw tomorrow. Patient Provider: Dr. Nina Medical/Surgical Information: Outcome/Plan: R PINION AND WHEEL documented in this encounter Plan of Treatment Not on file documented as of this encounter Visit Diagnoses Not on filedocumented in this encounter Care Teams Barrel Bung Remover And Dumper Relationship Specialty Start Date End Date Laura Tapia NP PCP - General Family Medicine 09/30/19 10/01/22 Mariaelena Zaidi MD Consulting Physician Sleep Medicine 07/12/21 documented as of this encounter
--- OUTSIDE RECORDS SUMMARY | 2024-09-17 14:03 | XMS_ITS | Encounter Summary ---
Author Organization [facility] Address [address] [facility] [address] [place] [address] Care Team Providers Care Bereavement Coordinator Name Role Phone Mariaelena Zaidi MD Unavailable La Kearney MD Primary Care Provide r Reason for Referral * Diagnostic Imaging (Routine) - Closed Specialty Diagnoses / Procedures Referred By Zaida camacho Referred To Contact Diagnoses Inguinal hernia without obstruction or gangrene, recurrence not specified, unspecified laterality Right groin pain Procedures US Groin Mass Hernia Right Ramos Fraga MD Phone: tel: fax: [address] [address] Referral ID Status Reason Start Date Expiration Date Visits Re quested Visits Authorized [id number] Closed 11/20/2022 12/20/2023 1 1 Reason for Visit * Reason Comments Inguinal Hernia Also knot in R groin area, hurts when sitting too long * Consultation (Routine) - Closed Specialty Diagnoses / Procedures Referred By Zaida camacho Referred To Contact General Surgery Diagnoses Inguinal hernia without obstruction or gangrene, recurrence not specified, unspecified laterality Sam Curry PA [address] [facility] [address] [place] [address] Phone: tel: fax: Ramos Fraga MD [address] [facility] [address] [place] [address] Phone: tel: fax: Referral ID Status Reason Start Date Expiration Date V isits Requested Visits Authorized [id number] Closed Specialty Services Required 11/12/2022 12/12/2023 1 1 Encounter Details Date Type Department Care Team (Late st Contact Info) Description 11/20/2022 10:10 AM CDT Office Visit [facility] [address] [facility] [address] [place] [phone] Ramos Fraga MD [address] [place] [address] [address] [place] [address] Right groin pain (Primary Dx); Inguinal hernia [...] on file 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 Assess for hernia. TECHNIQUE: A Dynamic assessment was performed of the right groin andinguinal region by the refuse laborer, with selected grayscale and color Dopplerimages acquired [...] Ziggy Almaguer M.D. CH: SWETHA Report ID: [id number] Reading Location: [id number] Ramos Fraga MD IM US PROCEDURE S [...] 3 documented in this encounter Care Teams Bereavement Coordinator Relationship Specialty Start Date End Date La Kearney MD [address] [place] [address] [address] [place] [address] PCP - General Family Medicine 10/02/22 Mariaelena Zaidi MD Consulting Physician Sleep Medicine 07/12/21 documented as of this encounter
--- OUTSIDE RECORDS SUMMARY | 2024-09-17 14:03 | XMS_ITS | Encounter Summary ---
Author Organization [facility] of [facility] Address [address] [place] [address] Phone Care Team Providers Care Dynamics Ax Technical Architect Name Role Phone Regina Laura ALAN Primary Care Provider [phone] Mariaelena Zaidi MD Unavailable Encounter Details Date Type Department Care Team (Late st Contact Info) Description 07/03/2022 Orders Only [facility] [place] Urology [address] [place] [address] [address] [place] [address] [place] [address] [facility] [address] [facility] 1 [place] [address] Acute cystitis without hematuria (Primary [...] on file 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 Gender Identity Not on file Sexual Orientation [...] standards) [place]) Comment:Testing performed by : [facility], 1 [facility] [place]., [address] Organism (CLINICALLY INSIGNIFICANT GROWTH [place]) Urine, clean voided 07/04/2022 9:32 AM CDT 07/04/2022 4:37 PM CDT Narrative [place] [place]) - 07/05/2022 6:13 PM CDT Testing performed by [facility] Microbiology Laboratory ([phone]) us Jozef Nina MD LAB MICROBIOLOGY - GENERAL OR DERABLES Final Result [place] [place]) 1 [facility] Department [place] [address] documented in this encounter Visit Diagnoses Diagnosis Acute cystitis without hematuria- Primary Acute cystitis without hematuria documented in this encounter Care Teams Dynamics Ax Technical Architect Relationship Specialty Start Date End Date Laura Tapia NP PCP - General Family Medicine 09/30/19 10/01/22 Mariaelena Zaidi MD Consulting Physician Sleep Medicine 07/12/21 documented as of this encounter
--- OUTSIDE RECORDS SUMMARY | 2024-09-17 14:03 | XMS_ITS | Encounter Summary ---
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 He is out of town deer hunting, and just started dribbling. He went to the [facility] and they placed a catheter. Advised patient to increase his fluid intake, and an appointment was made with for catheter removal. ESTATE LOAN PROCESSOR documented in this encounter Plan of Treatment Not on file documented as of this encounter Visit Diagnoses Not on filedocumented in this encounter Care Teams Bead Inspector Relationship Specialty Start Date End Date Laura Tapia NP PCP - General Family Medicine 09/30/19 10/01/22 Mariaelena Zaidi MD Consulting Physician Sleep Medicine 07/12/21 documented as of this encounter
--- OUTSIDE RECORDS SUMMARY | 2024-09-17 14:03 | XMS_ITS | Encounter Summary ---
Author Organization [facility] Address [address] [facility] [address] [place] [address] Care Team Providers Care Immigration Investigator Name Role Phone Laura Tapia NP Primary Care Provider [phone] Mariaelena Zaidi MD Unavailable Reason for Visit * Reason Comments AutoPAP Follow Up Encounter Details Date Type Department Care Team (Late st Contact Info) Description 09/26/2022 2:[address] SECURITY OFFICER Office Visit [facility] Sleep Medicine at [address] [place] [address] Mariaelena Zaidi MD [address] [place] [address] [address] [place] [address] Obstructive sleep apnea (Primary Dx); Hypersomnia; Restless [...] on file Legal Sex Male 8:[address] SECURITY OFFICER Gender Identity Not on file Sexual Orientation Not on file documented as of this encounter Last Filed Vital Signs Vital Sign Reading Time Taken Comments Blood Pressure 134/87 09/26/2022 2:[address] SECURITY OFFICER Pulse 64 09/26/2022 2:[address] SECURITY OFFICER Temperature - - Respiratory Rate 18 09/26/2022 2:[address] SECURITY OFFICER Oxygen Saturation 97% 09/26/2022 2:[address] SECURITY OFFICER Inhaled Oxygen Concentration - - Weight 124.7 kg (275 lb) 09/26/2022 2:[address] SECURITY OFFICER Height 188 cm (6' 2.02 ) 09/26/2022 2:[address] SECURITY OFFICER Body Mass Index 35.29 09/26/2022 2:[address] SECURITY OFFICER documented in this encounter Progress Notes * [...] that he got a replacement for the [employer] Station and he used it for a couple of months last June and July. Patient has gone back to using the ResMed again. Patient states that he needs to switch the [employer] company from [employer] and respiratory care due to insurance reasons. History: Patient gives history of many years of snoring, witnessed apneas, waking up gasping or choking for air and excessive daytime sleepiness. Patient had a polysomnogram done 10-12 years ago in [place] and was started on CPAP machine. Patient [...] obstructive sleep apnea. Patient is a heavy forger. Patient currently has a [employer] dream Station, which is on recall. Mask: [...] 05/25/2020 Added automatically from request for surgery [id number] Sleep apnea Urinary retention Past Surgical History: [...] results: Polysomnogram from 10-12 years ago in [place]: Not available Home sleep apnea testing on [...] clinic in 6 months. Voice recognition software Nativ[employer] Direct was used dictate and transcribe this document. Bloom Conveyor Operator variances may occur. Despite proofreading, typographical errors may occur. Mariaelena Zaidi MD [facility] Sleep Medicine CC: Laura Tapia NP T SECURITY OFFICER documented in this encounter Plan of Treatment Not on file documented as of this encounter Visit Diagnoses Diagnosis Obstructive sleep apnea- Primary Obstructive sleep apnea (adult) (pediatric) Hypersomnia Hypersomnia, unspecified Restless leg syndrome Restless legs syndrome (RLS) Obesity, unspecified classification, unspecified obesity type, unspecified whether serious comorbidity present documented in this encounter Care Teams Immigration Investigator Relationship Specialty Start Date End Date Laura Tapia NP PCP - General Family Medicine 09/30/19 10/01/22 Mariaelena Zaidi MD Consulting Physician Sleep Medicine 07/12/21 documented as of this encounter
--- OUTSIDE RECORDS SUMMARY | 2024-09-17 14:03 | XMS_ITS | Encounter Summary ---
Author Organization [facility] Address [address] [facility] [address] [place] [address] Care Team Providers Care Donor Specialist Name Role Phone Mariaelena Zaidi MD Unavailable La Kearney MD Primary Care Provide r Reason for Visit * Reason Onset Date Comments Physical therapy order 12/24/2022 Encounter Details Date Type Department Care Team (Late st Contact Info) Description 12/24/2022 Telephone [facility] Orthopedics and Sports Medicine [address] [facility] [address] [place] [address] Eileen Aj PA [address] [place] [address] [address] [place] [address] Physical therapy order Social History [...] on file 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 If so they will need an updated order with just physical therapy on it refaxed tp [phone] please call [phone] if there are any questions. documented in this encounter Plan of Treatment Not on file documented as of this encounter Visit Diagnoses Diagnosis Left lateral epicondylitis- Primary documented in this encounter Care Teams Donor Specialist Relationship Specialty Start Date End Date La Kearney MD [address] [facility] [place] [address] PCP - General Family Medicine 10/02/22 Mariaelena Zaidi MD Consulting Physician Sleep Medicine 07/12/21 documented as of this encounter
--- OUTSIDE RECORDS SUMMARY | 2024-09-17 14:03 | XMS_ITS | Encounter Summary ---
Author Organization [facility] Medical [facility] Address [address] [facility] [address] [place] [address] Care Team Providers Care Fish Processor Name Role Phone Mariaelena Zaidi MD Unavailable La Kearney MD Primary Care Provide r Reason for Referral * Consultation (Routine) - Closed Specialty Diagnoses / Procedures Referred By Zaida camacho Referred To Contact General Surgery Diagnoses Inguinal hernia without obstruction or gangrene, recurrence not specified, unspecified laterality Sam Curry PA [address] [place] [address] [address] [place] [address] Phone: tel: fax: Ramos Fraga MD [address] [place] [address] [facility] [address] [place] [address] Phone: tel: fax: Referral ID Status Reason Start Date Expiration Date V isits Requested Visits Authorized [id number] Closed Specialty Services Required 11/12/2022 12/12/2023 1 1 Question Answer Please select the performing region: [facility] [[id number]] Please select the performing department: [facility] [[id number]] To provider: RAMOS FRAGA [[id number]] # of visits: 1 BER Encounter Details Date Type Department Care Team (Late st Contact Info) Description 11/12/2022 Orders Only [facility] Primary Care at [address] [place] [address] Sam Curry PA [address] [facility] [address] [place] [address] Inguinal hernia without obstruction or gangrene, recurrence [...] on file 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
--- OUTSIDE RECORDS SUMMARY | 2024-09-17 14:03 | XMS_ITS | Encounter Summary ---
Author Organization [facility] Healthcare Address [address] [place] [address] Care Team Providers Care Factory Maintenance Manager Name Role Phone Mariaelena Zaidi MD Unavailable La Kearney MD Primary Care Provide r Reason for Visit * Reason Onset Date Comments Medical Question/Miscellaneous 06/10/2023 Encounter Details Date Type Department Care Team (Late st Contact Info) Description 06/10/[address] 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 Caller???s Call back #: [phone] Does message need to be routed? Yes-Action Needed documented in this encounter Plan of Treatment Not on file documented as of this encounter Visit Diagnoses Not on filedocumented in this encounter Care Teams Factory Maintenance Manager Relationship Specialty Start Date End Date La Kearney MD [address] [place] [address] [address] [place] [address] PCP - General Family Medicine 10/02/22 Mariaelena Zaidi MD Consulting Physician Sleep Medicine 07/12/21 documented as of this encounter
--- OUTSIDE RECORDS SUMMARY | 2024-09-17 14:03 | XMS_ITS | Encounter Summary ---
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
--- OUTSIDE RECORDS SUMMARY | 2024-09-17 14:03 | XMS_ITS | Encounter Summary ---
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 ?? There is xhyl-xp-eafxqiaf L2-S1 degenerative disc disease, greatest at L2-L3 and L4-L5. ??Inferior lumbar facet osteoarthritis is present. ??Left iliac enostosis is noted. ?? There is inferior lumbar facet osteoarthritis. IMPRESSION: Mild C3-C5 and moderate C5-C7 degenerative disc disease with mild bilateral C5-C7 foraminal impingement. Pfkx-iu-qlbokbbl L2-S1 degenerative disc disease, greatest at L2-L3 and L4-L5. THIS IS AN ELECTRONICALLY VERIFIED FINAL REPORT 06/08/2023 5:53 PM - Electronically signed by ??Michael Xiong M.D. MF: CHANI D: ??06/08/2023 5:53 PM T: ??06/08/2023 5:53 PM Report ID: [id number] Reading Location: ??[id number] Procedure Note Michael Xiong MD - 06/08/2023 [...] tree years ago and an injury in [employer] 30 years ago. FINDINGS: Five views lumbar [...] mild retrolisthesis of L3 onL4. There is vudp-de-ogumyzsk L2-S1 degenerative disc disease, greatest atL2-L3 and L4-L5. Inferior lumbar facet osteoarthritis is present. Left iliac enostosis is noted. There is inferior lumbar facet osteoarthritis. IMPRESSION: Mild C3-C5 and moderate C5-C7 degenerative disc disease with mildbilateral C5-C7 foraminal impingement. Vdve-zk-ziwxytee L2-S1 degenerative disc disease, greatest at L2-L3 andL4-L5. THIS IS AN ELECTRONICALLY VERIFIED FINAL REPORT 06/08/2023 5:53 PM - Electronically signed by Michael Xiong M.D. MF: CHANI Report ID: [id number] Reading Location: [place] [address] La Kearney MD IMG XR PROCEDURES Fin [...] of L3 on L4. ?? There is qgux-jl-qfjskphx L2-S1 degenerative disc disease, greatest at L2-L3 and L4-L5. ??Inferior lumbar facet osteoarthritis is present. ??Left iliac enostosis is noted. ?? There is inferior lumbar facet osteoarthritis. IMPRESSION: Mild C3-C5 and moderate C5-C7 degenerative disc disease with mild bilateral C5-C7 foraminal impingement. Lifi-jc-bsklvybz L2-S1 degenerative disc disease, greatest at L2-L3 and L4-L5. THIS IS AN ELECTRONICALLY VERIFIED FINAL REPORT 06/08/2023 5:53 PM - Electronically signed by ??Michael Xiong M.D. MF: CHANI D: ??06/08/2023 5:53 PM T: ??06/08/2023 5:53 PM Report ID: [id number] Reading Location: ??[id number] Procedure Note Michael Xiong MD - 06/08/2023 [...] tree years ago and an injury in [employer] 30 years ago. FINDINGS: Five views lumbar [...] mild retrolisthesis of L3 onL4. There is pobr-st-pbypzxjv L2-S1 degenerative disc disease, greatest atL2-L3 and L4-L5. Inferior lumbar facet osteoarthritis is present. Left iliac enostosis is noted. There is inferior lumbar facet osteoarthritis. IMPRESSION: Mild C3-C5 and moderate C5-C7 degenerative disc disease with mildbilateral C5-C7 foraminal impingement. Gzyr-io-aijrioip L2-S1 degenerative disc disease, greatest at L2-L3 andL4-L5. THIS IS AN ELECTRONICALLY VERIFIED FINAL REPORT 06/08/2023 5:53 PM - Electronically signed by Michael Xiong M.D. MF: CHANI Report ID: [id number] Reading Location: [place] [address] La Kearney MD IMG XR PROCEDURES Fin al Result documented in this encounter Visit Diagnoses Diagnosis Neck pain Cervicalgia Acute bilateral low back pain with sciatica, sciatica laterality unspecified documented in this encounter Care Teams Gem Technician Relationship Specialty Start Date End Date La Kearney MD [address] [place] [address] [address] [place] [address] PCP - General Family Medicine 10/02/22 Mariaelena Zaidi MD Consulting Physician Sleep Medicine 07/12/21 documented as of this encounter
--- OUTSIDE RECORDS SUMMARY | 2024-09-17 14:03 | XMS_ITS | Encounter Summary ---
Author Organization [facility] Address [address] [facility] [address] [place] [address] Care Team Providers Care Catalytic Case Operator Name Role Phone Mariaelena Zaidi MD Unavailable La Kearney MD Primary Care Provide r Reason for Visit * Reason Onset Date Comments Additional Services Or Orders 11/30/2022 Encounter Details Date Type Department Care Team (Late st Contact Info) Description 11/30/[address] 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 Gender Identity Not on file Sexual [...] address, phone/fax offacility): office Caller's Callback #: [phone] Additional Comments: - Does message need to be routed?Yes-Action Needed documented in this encounter Plan of Treatment Not on file documented as of this encounter Visit Diagnoses Not on filedocumented in this encounter Care Teams Catalytic Case Operator Relationship Specialty Start Date End Date La Kearney MD [address] [facility] [address] [address] PCP - General Family Medicine 10/02/22 Mariaelena Zaidi MD Consulting Physician Sleep Medicine 07/12/21 documented as of this encounter
--- OUTSIDE RECORDS SUMMARY | 2024-09-17 14:04 | XMS_ITS | Encounter Summary ---
Author Organization [facility] [facility] Address [address] [place] [address] Phone Care Team Providers Care Bander And Cellophaner Machine Helper Name Role Phone Regina Laura PHILLIPS Primary Care Provider [phone] Mariaelena Zaidi MD Unavailable Encounter Details Date Type Department Care Team (Late st Contact Info) Description 05/17/2022 Telephone [facility]) [facility] [address] [facility] [address] [place] [address] [place] [address] [facility] [address] [facility] [address] [place] [address] Social History Tobacco Use Types [...] on file 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
--- OUTSIDE RECORDS SUMMARY | 2024-09-17 14:04 | XMS_ITS | Encounter Summary ---
Author Organization [facility] Address [address] [facility] [address] [place] [address] Care Team Providers Care Fire Equipment Operator Name Role Phone Laura Tapia NP Primary Care Provider +- [phone] Mariaelena Zaidi MD Unavailable Reason for Referral * Diagnostic Imaging (Routine) - Canceled Specialty Diagnoses / Procedures Referred By Conttom t Referred To Contact Diagnoses Frequency of urination Incomplete emptying of bladder Other microscopic hematuria Procedures CT Abdomen Pelvis WO Contrast aLura Tapia NP Phone: tel: fax: [address] [address] Referral ID Status Reason Start Date Expiration Date V isits Requested Visits Authorized [id number] Canceled 04/03/2022 05/03/2023 1 1 Encounter Details Date Type Department Care Team (Late st Contact Info) Description 04/03/2022 Orders Only [facility] Primary Care at [address] [place] [phone] Laura Tapia NP [address] [place] [address] Frequency of urination (Primary Dx); Incomplete emptying [...] file 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
--- OUTSIDE RECORDS SUMMARY | 2024-09-17 14:04 | XMS_ITS | Encounter Summary ---
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 LING SUPERVISOR * Telephone Encounter - Denia Glasgow MA - 10/03/2021 1:23 PM CST Attempted to contact Jaden with no answer. LMOM to contact the office back. LING SUPERVISOR * Telephone Encounter - Laura Tapia NP - 10/03/2021 11:50 AM GAMBLING SUPERVISOR Treat symptomatically Tylenol/ibuprofen as needed Increase fluids, [...] syrup at bedtimeif he needs them. Laura LING SUPERVISOR * Telephone Encounter - Cortney Long MA [...] it continues he will call the office LING SUPERVISOR documented in this encounter Plan of Treatment Not on file documented as of this encounter Visit Diagnoses Not on filedocumented in this encounter Care Teams Underwriting Director Relationship Specialty Start Date End Date Laura Tapia NP PCP - General Family Medicine 09/30/19 10/01/22 Mariaelena Zaidi MD Consulting Physician Sleep Medicine 07/12/21 documented as of this encounter
--- OUTSIDE RECORDS SUMMARY | 2024-09-17 14:04 | XMS_ITS | Encounter Summary ---
Author Organization [facility] Healthcare Address [address] [place] [address] Care Team Providers Care Gaming Worker Name Role Phone Laura Tapia NP Primary Care Provider [phone] Reason for Referral * Sleep Medicine (Routine) - Closed Specialty Diagnoses / Procedures Referred By Zaida camacho Referred To Contact Diagnoses Obstructive sleep apnea syndrome Procedures Portable/Home Sleep Study Mariaelena Zaidi MD Phone: tel: [address] [phone] Referral ID Status Reason Start Date Expiration Date Visits Re quested Visits Authorized [id number] Closed 05/17/2021 06/16/2022 1 1 Reason for Visit * Sleep Medicine (Routine) - Closed Specialty Diagnoses / Procedures Referred By Zaida camacho Referred To Contact Diagnoses Obstructive sleep apnea syndrome Procedures Portable/Home Sleep Study Mariaelena Zaidi MD Phone: tel: [address] [phone] Referral ID Status Reason Start Date Expiration Date Visits Re quested Visits Authorized [id number] Closed 05/17/2021 06/16/2022 1 1 Encounter Details Date Type Department Care Team (Latest Contact Info) Description 05/30/2021 4:00 PM CDT - 05/30/2021 11:59 PM CDT Hospital Encounter [facility] [address] [place] [address] Mariaelena Zaidi MD [address] [place] [id number] Obstructive sleep apnea syndrome Discharge Disposition: Discharge [...] file 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 This Home Sleep apnea Test (HSAT) utilized an unattended FDA approved [employer] apnea link home air portable monitoring device investigating for obstructive sleep apnea. The patient was proved instruction of the device and application by the registered polysomno graphy technologist at the [facility]. This test was performed without a chief ultrasound technologist in attendance. In this study, the following parameters were monitored: Terrell-nasal airflow, snoring, chest respiratory effort, abdominal respiratory effort, body position, movement, oxygen saturation, and heart rate. Respiratory events are scored according to the criteria from The [place] Academy of Sleep Medicine (AASM) Manual for [...] be taken into consideration. Mariaelena Zaidi MD [facility] Sleep Medicine documented in this [...] hypertension, hyperlipidemia, obesity, anxiety Current medications: reviewed [place] Sleepiness Score: 13 BMI: 35.23 ?? PROCEDURE: This is a single night diagnostic study. This Home Sleep apnea Test (HSAT) utilized an unattended FDA approved [employer] apnea link home air portable monitoring device investigating for obstructive sleep apnea. The patient was proved instruction of the device and application by the registered radiographic technologist at the [facility]. This test was performed without a chief ultrasound technologist in attendance. In this study, the following parameters were monitored: Terrell-nasal airflow, snoring, chest respiratory effort, abdominal respiratory effort, body position, movement, oxygen saturation, and heart rate. Respiratory events are scored according to the criteria from The [place] Academy of Sleep Medicine (AASM) Manual for [...] be taken into consideration.? Mariaelena Zaidi MD [facility] Sleep Medicine ?? Narrative Aristeo Oro MD - 06/13/2021 Ocst is ready for review us Mariaelena Zaidi MD SLEEP CENTER ORDERABLES Final Re sult documented in this encounter Visit Diagnoses Diagnosis Obstructive sleep apnea syndrome Obstructive sleep apnea (adult) (pediatric) documented in this encounter Care Teams Gaming Worker Relationship Specialty Start Date End Date Laura Tapia NP PCP - General Family Medicine 09/30/19 10/01/22 documented as of this encounter
--- OUTSIDE RECORDS SUMMARY | 2024-09-17 14:04 | XMS_ITS | Encounter Summary ---
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 RING SHEAR OPERATOR documented in this encounter Plan of Treatment Not on file documented as of this encounter Visit Diagnoses Not on filedocumented in this encounter Care Teams Logistics/Shipper Relationship Specialty Start Date End Date Laura Tapia NP PCP - General Family Medicine 09/30/19 10/01/22 Mariaelena Zaidi MD Consulting Physician Sleep Medicine 07/12/21 documented as of this encounter
--- OUTSIDE RECORDS SUMMARY | 2024-09-17 14:04 | XMS_ITS | Encounter Summary ---
Author Organization [facility] Medical Group Address [address] [place] [address] Care Team Providers Care Sap Functional Analyst Name Role Phone Laura Tapia NP Primary Care Provider [phone] Mariaelena Zaidi MD Unavailable Reason for Visit * Reason Comments Hyperlipidemia Hypertension Encounter Details Date Type Department Care Team (Late st Contact Info) Description 10/18/2021 4:00 PM DIAGNOSTIC MEDICAL SONOGRAPHER Office Visit [facility] [address] [place] [phone] Laura Tapia NP [address] [place] [address] Essential hypertension (Primary Dx); Mixed hyperlipidemia; Spondylosis [...] on file Legal Sex Male 8:02 AM DIAGNOSTIC MEDICAL SONOGRAPHER Gender Identity Not on file Sexual Orientation Not on file documented as of this encounter Last Filed Vital Signs Vital Sign Reading Time Taken Comments Blood Pressure 122/64 10/18/2021 4:19 PM DIAGNOSTIC MEDICAL SONOGRAPHER Pulse 75 10/18/2021 4:00 PM DIAGNOSTIC MEDICAL SONOGRAPHER Temperature - - Respiratory Rate 12 10/18/2021 4:00 PM DIAGNOSTIC MEDICAL SONOGRAPHER Oxygen Saturation 97% 10/18/2021 4:00 PM DIAGNOSTIC MEDICAL SONOGRAPHER Inhaled Oxygen Concentration - - Weight 125.7 kg (277 lb 1.6 oz) 10/18/2021 4:00 PM DIAGNOSTIC MEDICAL SONOGRAPHER Height 188 cm (6' 2.02 ) 10/18/2021 4:00 PM DIAGNOSTIC MEDICAL SONOGRAPHER Body Mass Index 35.56 10/18/2021 4:00 PM DIAGNOSTIC MEDICAL SONOGRAPHER documented in this encounter Progress Notes * [...] bone loss and vit B12 deficiency with exterminator helper termite use of PPI with pt, would like [...] in your mouth on an olegario like B[employer] or [employer] Rosyi carries a zero net carb bread [...] in much longer they will become mushy Rienzi and/or coconut flour instead of regular flour [...] pork rinds For yogurt, try Two Good romanian yogurt Use Pinterest for recipe ideas. Type [...] Thanks for coming in today. My medical device assembler, Cortney, and I are thankful you have trusted us with your care, and hope that you received EXCELLENT care today! Please do not hesitate to call if you have any questions or concerns at [phone]. You may receive a phone call or [...] Tapia NP Please note: Voice recognition software [employer] was used to dictate and transcribe this document. Ssis Ssrs Developer variances may occur. Despite proofreading, typographical errors may occur. NOSTIC MEDICAL SONOGRAPHER * Cortney Long MA - 10/18/2021 4:00 PM CST Called Pt in regards to over due lab results that were ordered on 10/18/21. Pt has been working 12 hrdays and has not been able to get in to get lab's drawn. Ext out to 12/08/21 NOSTIC MEDICAL SONOGRAPHER documented in this encounter Miscellaneous Notes * [...] bone loss and vit B12 deficiency with exterminator helper termite use of PPI with pt, would like to remain on medication at this time NOSTIC MEDICAL SONOGRAPHER * Assessment & Plan Note - Laura [...] exercise, continue on Bupropion 300 mg daily NOSTIC MEDICAL SONOGRAPHER * Assessment & Plan Note - Laura Tapia NP - 10/18/2021 3:13 PM CSTAssociated Problem(s): Restless legs syndrome HPI: Condition is stable A&P: Discussed/ordered labs, encouraged healthy, low carbohydrate lifestyle and at least 150min/week of exercise, continue Seeing Dr. Zaidi sleep medicine continue on CPAP, Mirapex 1.5 mg once daily at bedtime NOSTIC MEDICAL SONOGRAPHER NOSTIC MEDICAL SONOGRAPHER * Assessment & Plan Note - Laura Tapia NP - 10/18/2021 3:13 PM CSTAssociated Problem(s): Obstructive sleep apnea syndrome HPI: Condition is stable A&P: Discussed/ordered labs, encouraged healthy, low carbohydrate lifestyle and at least 150min/week of exercise, continue Seeing Dr. Zaidi sleep medicine continue on CPAP, Mirapex 1.5 mg once daily at bedtime NOSTIC MEDICAL SONOGRAPHER NOSTIC MEDICAL SONOGRAPHER * Assessment & Plan Note - Laura Tapia NP - 10/18/2021 3:13 PM CSTAssociated Problem(s): Spondylosis of lumbar region without myelopathy or radiculopathy HPI: Condition is stable A&P: Discussed/ordered labs, encouraged healthy, low carbohydrate lifestyle and at least 150min/week of exercise, Meloxicam 15 mg daily NOSTIC MEDICAL SONOGRAPHER * Assessment & Plan Note - Laura Tapia NP - 10/18/2021 3:12 PM CSTAssociated Problem(s): Insomnia HPI: Condition is stable A&P: Discussed/ordered labs, encouraged healthy, low carbohydrate lifestyle and at least 150min/week of exercise, continue Seeing Dr. Zaidi sleep medicine continue on CPAP, Mirapex 1.5 mg once daily at bedtime NOSTIC MEDICAL SONOGRAPHER NOSTIC MEDICAL SONOGRAPHER * Assessment & Plan Note - Laura Tapia NP - 10/18/2021 3:12 PM CSTAssociated Problem(s): Hyperlipidemia HPI: Condition is stable A&P: Discussed/ordered labs, encouraged healthy, low carbohydrate lifestyle and at least 150min/week of exercise, continue on Pravastatin 40 mg daily NOSTIC MEDICAL SONOGRAPHER * Assessment & Plan Note - Laura Tapia NP - 10/18/2021 3:11 PM CSTAssociated Problem(s): Essential hypertension HPI: Condition is stable A&P: Discussed/ordered labs, encouraged healthy, low carbohydrate lifestyle and at least 150min/week of exercise, continue on Lisinopril 5 mg daily, metoprolol 25 mg daily NOSTIC MEDICAL SONOGRAPHER * Assessment & Plan Note - Laura [...] in your mouth on an olegario like [employer] or [employer] carries a zero net carb bread [...] in much longer they will become mushy Rienzi and/or coconut flour instead of regular flour [...] pork rinds For yogurt, try Two Good romanian yogurt Use Pinterest for recipe ideas. Type in low carb... NOSTIC MEDICAL SONOGRAPHER * Assessment & Plan Note - Laura [...] exercise, continue on Bupropion 300 mg daily NOSTIC MEDICAL SONOGRAPHER documented in this encounter Plan of Treatment [...] data last revised 2018. Testing performed by: [facility], [address] [place] [address]., [id number] Blood 12/13/2021 9:14 AM CDT 12/13/2021 2:02 PM CDT us Laura Tapia WATER RESOURCE CONSULTANT LAB BLOOD ORDERABLES Final Result Performing Organization Address [facility] de Phone Number [facility] ([place]) [address] [facility] [place] [address] * Vitamin D 25 hydroxy (12/13/2021 9:14 AM CDT) Vitamin D 25-OH 37 30 - 80 ng/mL [facility] ([place]) Blood 12/13/2021 9:14 AM CDT 12/13/2021 9:44 AM CDT Laura Tapia WATER RESOURCE CONSULTANT LAB BLOOD ORDERABLES Final Result Performing Organization Address [facility] de Phone Number [facility] ([place]) [address] [facility] [place] [address] * TSH (12/13/2021 9:14 AM CDT) Thyroid Stimulating Hormone 1.51 0.30 - 4.20 mcIUnit/mL [facility] ([place]) Blood 12/13/2021 9:14 AM CDT 12/13/2021 9:45 AM CDT us Laura Regina WATER RESOURCE CONSULTANT LAB BLOOD ORDERABLES Final Result [facility] ([place]) 1 [facility] Department [place] [address] * (ABNORMAL) Lipid panel (12/13/2021 9:14 AM [...] CDT 12/13/2021 9:45 AM CDT Laura Tapia WATER RESOURCE CONSULTANT LAB BLOOD ORDERABLES Final Result [facility] ([place]) 1 [facility] [place] [address] * Comprehensive metabolic panel (12/13/2021 9:14 AM [...] CDT 12/13/2021 9:45 AM CDT Laura Tapia WATER RESOURCE CONSULTANT LAB BLOOD ORDERABLES Final Result [facility] ([place]) 1 [facility] Department of Laboratories [place], [place] [id number] * CBC with auto differential (12/13/2021 9:14 [...] CV 12.7 11.1 - 14.9 % [facility] ([place]) RDW SD 41.9 35.7 - 48.1 fL [facility] ([place]) NRBC abs 0.00 0.00 - 0.01 K/cumm [facility] ([place]) Blood 12/13/2021 9:14 AM CDT 12/13/2021 9:44 AM CDT Laura Tapia LAB BLOOD ORDERABLES Final Result Performing Organization Address [facility] de Phone Number [facility] ([place]) 1 [facility] [place] [address] * Hemoglobin A1c (12/13/2021 9:14 AM CDT) Hgb A1C 5.0 4.0 - 5.6 % [facility] ([place]) Estimated Average Glucose 97 mg/dL [facility] ([place]) Comment: The ADA recommends reporting an estimated Average Glucose (eAG) with all Hemoglobin A1c results using the equation derived from a study of 507 normal and diabetic adults. ??Minority populations were underrepresented and children were not included. ?? (Diabetes Care 31:6908-5209, 2008). ??The eAG is not equivalent to a fasting glucose. Blood 12/13/2021 9:14 AM CDT 12/13/2021 9:45 AM CDT Laura Tapia NP LAB BLOOD ORDERABLES Final Result Performing Organization Address [facility] Co de Phone Number [facility] ([place]) [address] [facility] [place] [address] documented in this encounter Visit Diagnoses Diagnosis [...] prostate documented in this encounter Care Teams Sap Functional Analyst Relationship Specialty Start Date End Date Laura Tapia NP PCP - General Family Medicine 09/30/19 10/01/22 Mariaelena Zaidi MD Consulting Physician Sleep Medicine 07/12/21 documented as of this encounter
--- OUTSIDE RECORDS SUMMARY | 2024-09-17 14:04 | XMS_ITS | Encounter Summary ---
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
--- OUTSIDE RECORDS SUMMARY | 2024-09-17 14:04 | XMS_ITS | Encounter Summary ---
Author Organization [facility] Healthcare Address [address] [place] [address] Care Team Providers Care Radiologic Technology Instructor Name Role Phone Laura Tapia NP Primary Care Provider [phone] Mariaelena Zaidi MD Unavailable Reason for Visit * Auth/Cert Specialty Diagnoses / Procedures Referred By Contac t Referred To Contact Diagnoses Benign prostatic hyperplasia with weak urinary stream Benign prostatic hyperplasia with weak urinary stream [N40.1, R39.12] Procedures AR LASER VAPORIZATION SURGERY PROSTATE, COMPLETE LASER ABLATION VAPORIZATION PROSTATE/ 90 min Referral ID Status Reason Start Date Expiration Date Visits Re quested Visits Authorized [id number] 1 1 Encounter Details Date Type Department Care Team (Latest Contact Info) Description 06/20/2022 5:40 AM CDT - 06/20/2022 11:40 AM CDT Hospital Encounter [facility] Operating Room [address] [place] [address] Jozef Nina [place] [id number] [place] [address] [address] [facility] [address] [place] [address] Discharge Disposition: Discharge to home or self [...] on file Legal Sex Male 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 * General Anesthesia (Discharge Care) (Filipino) * Prostate Photovaporization (Discharge Care) (Filipino) * Guevara Catheter Placement and Care (Discharge Care) (Filipino) * Guevara Catheter Removal (Discharge Care) (Filipino) documented in this encounter Medications at Time [...] TABLET DAILY 90 tablet 3 02/08/2022 3 pramipexole (MIRAPEX) 1.5 mg tabletIndications:Re stless legs syndrome Take 1 tablet (1.5 mg total) by mouth 3 (three) times a day 90 tablet 03/29/2020 2 pravastatin (PRAVACHOL) 40 mg tabletIndications:Hy perlipidemia, unspecified hyperlipidemia type TAKE 1 TABLET DAILY 30 tablet 11 08/07/2021 2 oxybutynin XL (Ditropan XL) 10 mg 24 hr tabletIndications:Bl adder Hyperactivity Take 1 tablet (10 mg total) by mouth daily for 20 days 20 tablet 04/12/2022 4 documented as of this encounter Discharge Disposition Disposition Code Departure Means Destination Discharge to home or self care documented in this encounter H&P Notes * Jozfe Nina MD - 06/20/2022 7:49 AM CDT [...] 05/25/2020 Added automatically from request for surgery [id number] Sleep apnea Past Surgical History: Procedure Laterality [...] MD Faculty, Urology division, Department of surgery, [employer] ([facility]) [facility] [place] ([facility]) documented in this encounter Miscellaneous Notes * [...] FINDINGS: Trilobar occlusive prostate. COMPLICATIONS: None. DRAINS: 22-Italian 3-way Guevara catheter. PROCEDURE IN DETAIL: After [...] This revealed no mucosal lesions. The 26 Italian continuous flow resectoscope sheath was inserted using an ditcher operator and the GreenLight laser fiber was [...] The scope was removed and a 20 Italian Guevara catheter was inserted. The patient was [...] you and your doctor have chosen [facility] for your surgery. We hope that the following information will help make your visit a pleasant one. Surgery Date: 06/20/2022 and arrive at 5:30 AM [facility] (look for sign reading ???[facility] - SURGERY CENTER?? ) [address] [place] [address] Before your surgery: Notify your doctor of [...] Surgery. Covid testing can be done at [facility] [address] [place] [address] Hours are: Saturday through Saturday 7 [...] soap (Example: Dove Antibacterial soap, Gold Dial, Puerto Rican Spring, Zest, Safeguard, Coast) wash your body [...] insurance cards, and medication list (including all [id number] medications) with you. Prescriptions can be filled [...] 06/20/2022 documented in this encounter Care Teams Radiologic Technology Instructor Relationship Specialty Start Date End Date Laura Tapia NP PCP - General Family Medicine 09/30/19 10/01/22 Mariaelena Zaidi MD Consulting Physician Sleep Medicine 07/12/21 documented as of this encounter
--- OUTSIDE RECORDS SUMMARY | 2024-09-17 14:04 | XMS_ITS | Encounter Summary ---
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 Verified the [facility] in [place] is within network for the patient. Faxed new order to [facility]. * Telephone Encounter - Justina Morataya MA - 02/21/2022 10:43 AM CDT Pt called in and states that [facility] is out of network. Pt would like for you to contact them at [phone]. documented in this encounter Plan of Treatment Not on file documented as of this encounter Visit Diagnoses Not on filedocumented in this encounter Care Teams Welding Machine Operator Relationship Specialty Start Date End Date Laura Tapia NP PCP - General Family Medicine 09/30/19 10/01/22 Mariaelena Zaidi MD Consulting Physician Sleep Medicine 07/12/21 documented as of this encounter
--- OUTSIDE RECORDS SUMMARY | 2024-09-17 14:04 | XMS_ITS | Encounter Summary ---
Author Organization [facility] Medical Group Address [address] [place] [address] Care Team Providers Care Electro Mechanical Technician Name Role Phone Laura Tapia NP Primary Care Provider [phone] Mariaelena Zaidi MD Unavailable Reason for Visit * Reason Onset Date Comments Overdue Labs 11/13/2021 Encounter Details Date Type Department Care Team (Late st Contact Info) Description 11/13/2021 Telephone [facility] [address] [place] [address] Laura Tapia NP [address] [place] [address] Overdue Labs Social History Tobacco Use Types [...] on file Legal Sex Male 8:02 AM PERSONNEL DIRECTOR Gender Identity Not on file Sexual Orientation Not on file documented as of this encounter Miscellaneous Notes * Telephone Encounter - Steven Paige MA - 11/13/2021 10:08 AM PERSONNEL DIRECTOR Attempted to contact patient to inform him about his overdue labs that need to be collected. LMOM to give the office a call back. ONNEL DIRECTOR documented in this encounter Plan of Treatment Not on file documented as of this encounter Visit Diagnoses Not on filedocumented in this encounter Care Teams Electro Mechanical Technician Relationship Specialty Start Date End Date Laura Tapia NP PCP - General Family Medicine 09/30/19 10/01/22 Mariaelena Zaidi MD Consulting Physician Sleep Medicine 07/12/21 documented as of this encounter
--- OUTSIDE RECORDS SUMMARY | 2024-09-17 14:04 | XMS_ITS | Encounter Summary ---
Author Organization [facility] Healthcare Address [address] [place] [address] Care Team Providers Care Wine Fermenter Name Role Phone Laura Tapia NP Primary Care Provider [phone]- [phone] Encounter Details Date Type Department Care Team (Late st Contact Info) Description 05/19/2021 2:55 PM CDT Lab 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 Gender Identity Not on file Sexual [...] 05/19/2021 7:19 PM CDT us Laura Tapia FUEL SYSTEM MAINTENANCE WORKER LAB BLOOD ORDERABLES Final Result [facility] ([place]) 1 [facility] [place] [address] * Vitamin B12 (05/19/2021 3:19 PM CDT) Pathologist [facility] Vitamin B12 350 230 - 1,250 pg/mL [facility] ([place]) Comment:Testing performed by : [facility], [address] [place] [address], [address] Blood 05/19/2021 3:19 PM CDT 05/20/2021 1:19 PM CDT Laura Tapia FUEL SYSTEM MAINTENANCE WORKER LAB BLOOD ORDERABLES Final Result [facility] ([place]) 1 [facility] [place] [address] * Folate (05/19/2021 3:19 PM CDT) Folic acid 16.2 >=5.0 ng/mL [facility] ([place]) Comment: Hemolysis present. ??Results may be affected. Testing performed by: [facility], [address] [place] [address], [place]., [address] Blood 05/19/2021 3:19 PM CDT 05/20/2021 1:19 PM CDT us Laura Tapia NP LAB BLOOD ORDERABLES Final Result [facility] ([place] 1 [facility] Department [place] [address] documented in this encounter Visit Diagnoses Diagnosis Elevated ferritin Other abnormal blood chemistry documented in this encounter Care Teams Wine Fermenter Relationship Specialty Start Date End Date Laura Tapia NP PCP - General Family Medicine 09/30/19 10/01/22 documented as of this encounter
--- OUTSIDE RECORDS SUMMARY | 2024-09-17 14:04 | XMS_ITS | Encounter Summary ---
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 Placed referral to Dr Ward @ [facility]. Sent Information Referral info through my chart. documented in this encounter Plan of Treatment Not on file documented as of this encounter Visit Diagnoses Diagnosis Shakiness- Primary Abnormal involuntary movements documented in this encounter Care Teams Double Cutter Relationship Specialty Start Date End Date Laura Tapia NP PCP - General Family Medicine 09/30/19 10/01/22 Mariaelena Zaidi MD Consulting Physician Sleep Medicine 07/12/21 documented as of this encounter
--- OUTSIDE RECORDS SUMMARY | 2024-09-17 14:04 | XMS_ITS | Encounter Summary ---
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 Gender Identity Not on file Sexual Orientation Not on file documented as of this encounter Miscellaneous Notes * Telephone Encounter - Cortney Long MA - 07/27/2021 2:00 PM CST Pt's Rhiannon ( on [place] ) called and LMOM to call her back in regards to her and medications Called Rhiannon back @1:58 pm the # she left [phone] LVM to call the office back STERED NURSE MATERNITY documented in this encounter Plan of Treatment Not on file documented as of this encounter Visit Diagnoses Not on filedocumented in this encounter Care Teams Rail Operations Controller Relationship Specialty Start Date End Date Laura Tapia NP PCP - General Family Medicine 09/30/19 10/01/22 Mariaelena Zaidi MD Consulting Physician Sleep Medicine 07/12/21 documented as of this encounter
--- OUTSIDE RECORDS SUMMARY | 2024-09-17 14:04 | XMS_ITS | Encounter Summary ---
Author Organization [facility] Healthcare Address [address] [place] [address] Care Team Providers Care Commercial Relief Driver Name Role Phone Laura Tapia NP Primary Care Provider [phone] Mariaelena Zaidi MD Unavailable Encounter Details Date Type Department Care Team (Late st Contact Info) Description 12/13/2021 9:20 AM CDT Lab [facility] 1 [place] [address] Hollis Burgos MD [address] [place] [address] DR VELÁSQUEZ A [address] [address] Laura Tapia NP [address] [place] [address] Prostate cancer screening; Essential hypertension; Class 2 [...] on file 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 Gender Identity Not on file Sexual [...] 75g 2h non-gest 95 <=139 mg/dL [facility]) Blood 12/13/2021 11:5 6 AM CDT 12/13/2021 12:07 PM CDT Laura Regina HOUSECLEANER FLOOR LAB BLOOD ORDERABLES Final Result Performing Organization Address [facility] de Phone Number [facility] ([place]) 1 [facility] [place] [address] * (ABNORMAL) Glucose tolerance testing 75 gram fasting non-gestational (12/13/2021 9:30 AM CDT) GTT 75g fasting non-gest 128(H) <=99 mg/dL [facility] ([place]) Comment: Interpretive Data: Type 1/Type 2 Diabetes [...] CDT 12/13/2021 9:38 AM CDT Laura Tapia HOUSECLEANER FLOOR LAB BLOOD ORDERABLES Final Result Performing Organization Address [facility] Co de Phone Number [facility] ([place]) 1 [facility] [place] [address] * eGFR (12/13/2021 9:14 AM CDT) eGFR 93 mL/min/1. 73 m2 [facility] ([place]) Comment: Interpretive Data Reference Interval Normal ?>/= [...] LAB BLOOD ORDERABLES Final Result [facility] ([place]) 1 [facility] Department [place] [address] * Differential, auto (12/13/2021 9:14 AM CDT) Neutrophil abs 2.2 1.7 - 6.5 K/cumm [facility] ([place]) Imm gran abs 0.0 0.0 - 0.1 K/cumm [facility] ([place]) Lymphocyte abs 1.2 0.8 - 3.3 K/cumm [facility] ([place]) Monocyte abs 0.4 0.2 - 0.8 K/cumm [...] ORDERABLES Final Result [facility] ([place]) 1 [facility] Department of Laboratories [place], [place] [address] * Hemoglobin A1c (12/13/2021 9:14 AM CDT) [...] children were not included. ?? (Diabetes Care 31:4535-0055, 2008). ??The eAG is not equivalent to a fasting glucose. Blood 12/13/2021 9:14 AM CDT 12/13/2021 9:45 AM CDT Laura Tapia NP LAB BLOOD ORDERABLES Final Result [facility] ([place]) 1 [facility] Department [place] [address] * CBC with auto differential (12/13/2021 9:14 AM CDT) WBC 4.0 3.8 - 9.9 K/cumm [facility] ([place]) Hgb 14.6 13.0 - 17.5 g/dL [facility] ([place]) Hct 42.4 38.9 - 50.3 % [facility] ([place]) Plt 216 150 - 400 K/cumm [facility] ([place]) MPV 9.7 9.1 - [...] NRBC abs 0.00 0.00 - 0.01 K/cumm [facility] ([place]) Blood 12/13/2021 9:14 AM CDT 12/13/2021 9:44 AM CDT us Laura Regina HOUSECLEANER FLOOR LAB BLOOD ORDERABLES Final Result [facility] ([place]) 1 [facility] Department [place] [address] * Comprehensive metabolic panel (12/13/2021 9:14 AM [...] 12/13/2021 9:45 AM CDT us Laura Regina HOUSECLEANER FLOOR LAB BLOOD ORDERABLES Final Result [facility] ([place]) 1 [facility] Department [place] [address] * (ABNORMAL) Lipid panel (12/13/2021 9:14 AM [...] 2018. Chol/HDL ratio 5 [facility] ([place]) Blood 12/13/2021 9:14 AM CDT 12/13/2021 9:45 AM CDT us Laura Tapia HOUSECLEANER FLOOR LAB BLOOD ORDERABLES Final Result Performing Organization Address [facility]/ZIP Co de Phone Number [facility] ([place]) 1 [facility] [place] [address] * TSH (12/13/2021 9:14 AM CDT) Thyroid Stimulating Hormone 1.51 0.30 - 4.20 mcIUnit/mL [facility] ([place]) Blood 12/13/2021 9:14 AM CDT 12/13/2021 9:45 AM CDT us Laura Tapia NP LAB BLOOD ORDERABLES Final Result [facility] ([place]) 1 [facility] [place] [address] * Vitamin D 25 hydroxy (12/13/2021 9:14 AM CDT) Vitamin D 25-OH 37 30 - 80 ng/mL [facility] ([place]) Blood 12/13/2021 9:14 AM CDT 12/13/2021 9:44 AM CDT Laura Tapia HOUSECLEANER FLOOR LAB BLOOD ORDERABLES Final Result [facility] ([place]) 1 [facility] Department [place] [address] * PSA screen (12/13/2021 9:14 AM CDT) [...] data last revised 2018. Testing performed by: [facility], [address] [place] [address]., [address] Blood 12/13/2021 9:14 AM CDT 12/13/2021 2:02 PM CDT us Laura Tapia HOUSECLEANER FLOOR LAB BLOOD ORDERABLES Final Result [facility] ([place]) 1 [facility] Department [place] [address] documented in this encounter Visit Diagnoses Diagnosis Prostate cancer screening Special screening for malignant neoplasm of prostate Essential hypertension Unspecified essential hypertension Class 2 obesity due to excess calories without serious comorbidity with body mass index (BMI) of 35.0 to 35.9 in adult Shakiness Abnormal involuntary movements documented in this encounter Care Teams Commercial Relief Driver Relationship Specialty Start Date End Date Laura Tapia NP PCP - General Family Medicine 09/30/19 10/01/22 Mariaelena Zaidi MD Consulting Physician Sleep Medicine 07/12/21 documented as of this encounter
--- OUTSIDE RECORDS SUMMARY | 2024-09-17 14:04 | XMS_ITS | Encounter Summary ---
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 Gender Identity Not on file Sexual [...] [facility] ([place]) Comment:Testing performed by : [facility], [address] [place]., [address] Organism (CLINICALLY INSIGNIFICANT GROWTH [facility] ([place]) Urine, clean voided 06/18/2022 8:23 AM CDT 06/18/2022 5:16 PM CDT Narrative [facility] ([place]) - 06/19/2022 6:54 PM CDT Testing performed by [facility] Microbiology Laboratory ([phone]) Jozef Nina MD LAB MICROBIOLOGY - GENERAL OR DERABLES Final Result [facility] ([place]) 1 [facility] Department [place] [address] * COVID-19 Coronavirus RNA Nasopharyngeal (06/18/2022 8:20 AM CDT) COVID-19 RNA Not Detected [facility] ([place]) Comment: Interpretive Data Synonyms for this test include: PCR and NAAT . ??Testing performed by the [facility] Molecular Infectious Disease Laboratory. The 2019-Novel Coronavirus [...] on October 13, 2020. Testing performed by: [facility], [address] [facility] [place] [address] Nasopharyngeal 06/18/2022 8: 20 AM CDT 06/18/2022 12:31 PM CDT Narrative [facility] ([place]) - 06/18/2022 10:04 PM CDT Is the patient experiencing any symptoms consistent with COVID (eg. Fever, cough, shortness of breath)?->No What is the reason for testing?->Screening prior to scheduled??procedure or surgery??(Batched) us Jozef Nina MD LAB MICROBIOLOGY - GENERAL OR DERABLES Final Result Performing Organization Address City/State/[facility] Co de Phone Number [facility] ([place]) 1 [facility] [place] [address] documented in this encounter Visit Diagnoses Diagnosis Preoperative clearance Unspecified pre-operative examination Urinary frequency documented in this encounter Care Teams Driver/Merchandiser Relationship Specialty Start Date End Date Laura Tapia NP PCP - General Family Medicine 09/30/19 10/01/22 Mariaelena Zaidi MD Consulting Physician Sleep Medicine 07/12/21 documented as of this encounter
--- OUTSIDE RECORDS SUMMARY | 2024-09-17 14:04 | XMS_ITS | Encounter Summary ---
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 ??Results may be affected. Testing performed by: [facility], [address] [place] [address]., [address] Blood 05/19/2021 3:19 PM CDT 05/20/2021 1:19 PM CDT us Laura Tapia CONSUMER PRODUCT ADVISOR LAB BLOOD ORDERABLES Final Result [facility] ([place]) 1 [facility] [place] [address] * Vitamin B12 (05/19/2021 3:19 PM CDT) Vitamin B12 350 230 - 1,250 pg/mL [facility] ([place]) Comment:Testing performed by : [facility], [address] [place] [address]., [address] Blood 05/19/2021 3:19 PM CDT 05/20/2021 1:19 PM CDT us Laura Tapia CONSUMER PRODUCT ADVISOR LAB BLOOD ORDERABLES Final Result Performing Organization Address [facility]/ZIP Co de Phone Number [facility] ([place]) 1 [facility] [place] [place] [address] * Iron profile w/ IBC (05/19/2021 3:19 PM CDT) Iron 103 50 - 150 mcg/dL [facility] ([place]) TIBC 373 250 - 400 mcg/dL [facility] ([place]) Transferrin saturation 28 20 - 50 % [facility] ([place]) Blood 05/19/2021 3:19 PM CDT 05/19/2021 7:19 PM CDT us Laura Tapia CONSUMER PRODUCT ADVISOR LAB BLOOD ORDERABLES Final Result [facility] ([place]) 1 [facility] [place] [address] documented in this encounter Visit Diagnoses Diagnosis Elevated ferritin- Primary Other abnormal blood chemistry documented in this encounter Care Teams Film Crew Member Relationship Specialty Start Date End Date Laura Tapia NP PCP - General Family Medicine 09/30/19 1 documented as of this encounter
--- OUTSIDE RECORDS SUMMARY | 2024-09-17 14:04 | XMS_ITS | Encounter Summary ---
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 * Result Encounter Note - Mariaelena Zaidi MD - 05/18/2021 8:49 AM CDT [...] BLOOD ORDERABLES Final Resul t [facility] ([place]) 1 [facility] [place] [address] documented in this encounter Visit Diagnoses Diagnosis RLS (restless legs syndrome) Restless legs syndrome (RLS) documented in this encounter Care Teams Tarper Relationship Specialty Start Date End Date Laura Tapia NP PCP - General Family Medicine 09/30/19 10/01/22 documented as of this encounter
--- OUTSIDE RECORDS SUMMARY | 2024-09-17 14:04 | XMS_ITS | Encounter Summary ---
Author Organization [facility] [employer] of [facility] Address [address] [place] [address] Phone Care Team Providers Care Chiropractor Assistant Name Role Phone Laura Tapia NP Primary Care Provider [phone]- [phone] Mariaelena Zaidi MD Unavailable Reason for Visit * Reason Comments Follow-up Encounter Details Date Type Department Care Team (Late st Contact Info) Description 06/28/2022 8:40 AM CDT Office Visit [facility]) - [facility] Urology [address] [place] [address] Microscopic hematuria (Primary Dx); Urinary frequency; [...] on file 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
--- OUTSIDE RECORDS SUMMARY | 2024-09-17 14:04 | XMS_ITS | Encounter Summary ---
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 Gender Identity Not on file Sexual Orientation Not on file documented as of this encounter Plan of Treatment Scheduled Orders Name Type Priority Associated Diagnoses Orde r Schedule Glucose tolerance, 3 hours Lab Routine Shakiness Expected: 11/13/2021, Expires: 11/13/2022 documented as of this encounter Visit Diagnoses Diagnosis Shakiness- Primary Abnormal involuntary movements documented in this encounter Care Teams Insurance And Benefits Clerk Relationship Specialty Start Date End Date Laura Tapia NP PCP - General Family Medicine 09/30/19 10/01/22 Mariaelena Zaidi MD Consulting Physician Sleep Medicine 07/12/21 documented as of this encounter
--- OUTSIDE RECORDS SUMMARY | 2024-09-17 14:04 | XMS_ITS | Encounter Summary ---
Author Organization [facility] Medical Group Address [address] [facility] [address] [place] [address] Care Team Providers Care Plant Assigner Name Role Phone Regina Laura PHILLIPS Primary Care Provider [phone] Mariaelena Zaidi MD Unavailable Reason for Visit * Reason Comments Sleep Study HSAT on 05/30/21. Jefferson ramirez on CPAP supplies from [facility]. 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 Gender Identity Not on file Sexual Orientation Not on file documented as of this encounter Last Filed Vital Signs Vital Sign Reading Time Taken Comments Blood Pressure 120/77 07/31/2021 2:56 PM GARNETT FIXER Pulse 70 07/31/2021 2:56 PM GARNETT FIXER Temperature 36.8 ??C (98.2 ??F) 07/31/2021 2:56 PM CS T Respiratory Rate 18 07/31/2021 2:56 PM GARNETT FIXER Oxygen Saturation 97% 07/31/2021 2:56 PM GARNETT FIXER Inhaled Oxygen Concentration - - Weight 124.3 kg (274 lb) 07/31/2021 2:56 PM GARNETT FIXER Height 188 cm (6' 2 ) 07/31/2021 2:56 PM GARNETT FIXER Body Mass Index 35.18 07/31/2021 2:56 PM GARNETT FIXER documented in this encounter Progress Notes * [...] patient has yet to receive it from [facility]. Patient continues to have excessive daytime sleepiness. History: Patient gives history of many years of snoring, witnessed apneas, waking up gasping or choking for air and excessive daytime sleepiness. Patient had a polysomnogram done 10-12 years ago in [place] and was started on CPAP machine. Patient [...] of obstructive sleep apnea. 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 Patient currently has a RespirAisleFinder dream Station, which is on recall. DME: [...] results: Polysomnogram from 10-12 years ago in [place]: Not available Home sleep apnea testing on [...] cm of water has been sent to [facility] already. Recommended patient to startusing it as [...] was used dictate and transcribe this document. Ornamental Iron Worker variances may occur. Despite proofreading, typographical errors may occur. Mariaelena Zaidi MD [facility] Medical [facility] Sleep Medicine CC: Laura Tapia NP ETT FIXER documented in this encounter Plan of Treatment Not on file documented as of this encounter Visit Diagnoses Diagnosis Obstructive sleep apnea- Primary Obstructive sleep apnea (adult) (pediatric) Hypersomnia Hypersomnia, unspecified Restless leg syndrome Restless legs syndrome (RLS) Obesity, unspecified classification, unspecified obesity type, unspecified whether serious comorbidity present documented in this encounter Care Teams Plant Assigner Relationship Specialty Start Date End Date Laura Tapia NP PCP - General Family Medicine 09/30/19 10/01/22 Mariaelena Zaidi MD Consulting Physician Sleep Medicine 07/12/21 documented as of this encounter
--- OUTSIDE RECORDS SUMMARY | 2024-09-17 14:04 | XMS_ITS | Encounter Summary ---
Author Organization [facility] Address [address] [place] [address] Phone Care Team Providers Care Supervisor Partial Denture Department Name Role Phone Regina Laura ALAN Primary Care Provider [phone] Mariaelena Zaidi MD Unavailable Reason for Visit * Reason Comments Blood in Urine Encounter Details Date Type Department Care Team (Late st Contact Info) Description 06/07/2022 3:20 PM CDT Office Visit [facility]) - [facility] Urology [address] [facility] [address] [place] [address] [place] [address] [facility] [address] [place] [address] Microscopic hematuria (Primary Dx) Social [...] on file 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 Gender Identity Not on file Sexual [...] 05/25/2020 Added automatically from request for surgery [id number] Sleep apnea Past Surgical History: Procedure Laterality [...] Faculty, Urology division, Department of surgery, [facility] [employer] ([facility]) [facility] [place] ([facility]) documented in this encounter Plan of Treatment [...] Primary documented in this encounter Care Teams Supervisor Partial Denture Department Relationship Specialty Start Date End Date Laura Tapia NP PCP - General Family Medicine 09/30/19 10/01/22 Mariaelena Zaidi MD Consulting Physician Sleep Medicine 07/12/21 documented as of this encounter
--- OUTSIDE RECORDS SUMMARY | 2024-09-17 14:04 | XMS_ITS | Encounter Summary ---
Author Organization [facility] Address [address] [place] [address] Care Team Providers Care Historic Preservationist Name Role Phone Laura Tapia NP Primary Care Provider [phone] Mariaelena Zaidi MD Unavailable Reason for Visit * Reason Onset Date Comments Appointment 12/19/2021 Encounter Details Date Type Department Care Team (Late st Contact Info) Description 12/19/2021 Telephone [facility] [address] [facility] [address] [address] [place], [place] [id number] [place] [address] [place] [address] Appointment Social History Tobacco Use [...] on file 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
--- OUTSIDE RECORDS SUMMARY | 2024-09-17 14:04 | XMS_ITS | Encounter Summary ---
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
--- OUTSIDE RECORDS SUMMARY | 2024-09-17 14:04 | XMS_ITS | Encounter Summary ---
Author Organization [facility] Medical [facility] Address [address] [facility] [address] [place] [address] Care Team Providers Care Accounting Advisory Services Manager Name Role Phone Laura Tapia NP Primary Care Provider [phone] Mariaelena Zaidi MD Unavailable Reason for Visit * Reason Onset Date Comments Appointment 01/31/2022 Encounter Details Date Type Department Care Team (Late st Contact Info) Description 01/31/[address] 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
--- OUTSIDE RECORDS SUMMARY | 2024-09-17 14:04 | XMS_ITS | Encounter Summary ---
Author Organization [facility] Healthcare Address [address] [place] [address] Care Team Providers Care Privacy Attorney Name Role Phone Laura Tapia NP Primary Care Provider [phone] Mariaelena Zaidi MD Unavailable Reason for Visit * Diagnostic Lab (Routine) - Closed Specialty Diagnoses / Procedures Referred By Contac t Referred To Contact Lab Diagnoses Microscopic hematuria Procedures Cytology Jozef Nina MD Phone: tel: fax: Referral ID Status Reason Start Date Expiration Date Visits Re quested Visits Authorized [id number] Closed 04/12/2022 05/12/2023 1 1 Encounter Details Date Type Department Care Team (Late st Contact Info) Description 04/12/2022 7:05 PM CDT Lab [address] [address] Microscopic hematuria Social History Tobacco Use Types [...] on file 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 Ref Lab Taken: ??04/12/2022 [...] by the Surgical Pathology Department at [facility] as part of an ongoing quality eng program and in compliance with federally mandated [...] characteristics determined by the Surgical Pathology Department [facility]. ??It has not been cleared or approved by the U. S. Food and Drug Administration. Unless otherwise noted all cytology processing, staining and screening is performed at [facility] ([address] [place] [address]). REPORT IMAGES AND SCANNED DOCUMENTS, IF INCLUDED, ONLY VIEWABLE IN PDF VERSION OF REPORT us Jozef Nina MD LAB CYTOLOGY ORDERABLES [place] [address] documented in this encounter Visit Diagnoses Diagnosis Microscopic hematuria documented in this encounter Care Teams Privacy Attorney Relationship Specialty Start Date End Date Laura Tapia NP PCP - General Family Medicine 09/30/19 10/01/22 Mariaelena Zaidi MD Consulting Physician Sleep Medicine 07/12/21 documented as of this encounter
--- OUTSIDE RECORDS SUMMARY | 2024-09-17 14:04 | XMS_ITS | Encounter Summary ---
Author Organization [facility] Healthcare Address [address] [place] [address] Care Team Providers Care Child Care Provider Name Role Phone Laura Tapia NP Primary Care Provider [phone] Mariaelena Zaidi MD Unavailable Reason for Visit * MRI/CAT/PET Scan (Routine) - Closed Specialty Diagnoses / Procedures Referred By Zaida t Referred To Contact Radiology Diagnoses Microscopic hematuria Procedures CT Urogram W 3D CT Urogram WO 3D Jozef Nina MD Phone: tel: fax: [address] [address] Referral ID Status Reason Start Date Expiration Date Visits Re quested Visits Authorized [id number] Closed 04/12/2022 05/12/2023 1 1 Encounter Details Date Type Department Care Team (Latest Contact Info) Description 05/09/2022 7:08 AM CDT - 05/09/2022 11:59 PM CDT Hospital Encounter [facility] [address] [place] [address] Microscopic hematuria Discharge Disposition: Discharge to home [...] on file 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
--- OUTSIDE RECORDS SUMMARY | 2024-09-17 14:04 | XMS_ITS | Encounter Summary ---
Author Organization [facility] Healthcare Address [address] [place] [address] Care Team Providers Care Nursing Home Aide Name Role Phone Laura Tapia NP Primary Care Provider [phone] Mariaelena Zaidi MD Unavailable Reason for Visit * Auth/Cert Specialty Diagnoses / Procedures Referred By Contac t Referred To Contact Diagnoses Benign prostatic hyperplasia with weak urinary stream Benign prostatic hyperplasia with weak urinary stream [N40.1, R39.12] Procedures LA LASER VAPORIZATION SURGERY PROSTATE, COMPLETE LASER ABLATION VAPORIZATION PROSTATE/ 90 min Referral ID Status Reason Start Date Expiration Date Visits Re quested Visits Authorized [id number] 1 1 Encounter Details Date Type Department Care Team (Late st Contact Info) Description 06/20/2022 7:53 AM CDT Anesthesia Event 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 Sleep apnea ??? Urinary retention Past [...] 15 mg tablet -- 06/28/21 06/28/22 Clem Bedyoa MD Take 1 tablet (15 mg total) [...] tablet -- 08/07/21 -- Vandermolen, Laura Lucia, RN LABOR DELIVERY TAKE 1 TABLET DAILY Patient taking differently: [...] Medication protocol when under care of a REGULAR SENIOR CARE PROVIDER Planned anesthesia: General Team communication plan: LMA and oral ET tube Induction: Induction: intravenous. Postoperative Plan: Postoperative administration opioids intended. No postoperative mechanical ventilation intended. Patient's planned disposition post procedure is Outpatient. No trial extubation planned. Informed Consent: Discussed plan with REGULAR SENIOR CARE PROVIDER and AA. Anesthesia plan and risks discussed [...] anesthesia Difficult airway: no Staff: Placed by: REGULAR SENIOR CARE PROVIDER: Campos Harris CRNA Emergent airway documentation: Risks [...] mg documented in this encounter Care Teams Nursing Home Aide Relationship Specialty Start Date End Date Laura Tapia NP PCP - General Family Medicine 09/30/19 10/01/22 Mariaelena Zaidi MD Consulting Physician Sleep Medicine 07/12/21 documented as of this encounter
--- OUTSIDE RECORDS SUMMARY | 2024-09-17 14:04 | XMS_ITS | Encounter Summary ---
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 I think he is seeing Dr. aZidi. * Telephone Encounter - Steven Paige MA [...] on filedocumented in this encounter Care Teams Maintenance Team Member Relationship Specialty Start Date End Date Laura Tapia NP PCP - General Family Medicine 09/30/19 10/01/22 documented as of this encounter
--- OUTSIDE RECORDS SUMMARY | 2024-09-17 14:04 | XMS_ITS | Encounter Summary ---
Author Organization [facility] Medical [facility] Address [address] [facility] [address] [place] [address] Care Team Providers Care Sand System Operator Name Role Phone Laura Tapia NP Primary Care Provider [phone] Mariaelena Zaidi MD Unavailable Encounter Details Date Type Department Care Team (Late st Contact Info) Description 04/13/2022 Telephone [facility] Primary Care at [address] [place] [address] Laura Tapia NP [address] [place] [address] Social History Tobacco Use Types Packs/Day Years [...] on file 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
--- OUTSIDE RECORDS SUMMARY | 2024-09-17 14:04 | XMS_ITS | Encounter Summary ---
Author Organization [facility] Medical Group Address [address] 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 and patients CPAP has been linked in Care Dumper Operator. * Telephone Encounter - Laura De La Paz MA - 05/17/2021 3:30 PM CDT Patient was downstairs in lab and came back upstairs after receiving VM and provided us with the correct serial number. Called Lily with [facility] and she is going to have patients machine linked to Care Dumper Operator. * Telephone Encounter - Laura De La [...] on filedocumented in this encounter Care Teams Mortar Mixer Operator Relationship Specialty Start Date End Date Laura Tapia NP PCP - General Family Medicine 09/30/19 10/01/22 documented as of this encounter
--- OUTSIDE RECORDS SUMMARY | 2024-09-17 14:04 | XMS_ITS | Encounter Summary ---
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
--- OUTSIDE RECORDS SUMMARY | 2024-09-17 14:04 | XMS_ITS | Encounter Summary ---
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 Gender Identity Not on file Sexual [...] standards) [facility] Comment:Testing performed by : [facility], [address] [place]., [address] Organism (CLINICALLY INSIGNIFICANT GROWTH [facility] Urine, clean voided 04/04/2022 4:44 PM CDT 04/05/2022 12:06 AM CDT Narrative [facility] - 04/06/2022 7:28 AM CDT Testing performed by [facility] Microbiology Laboratory ([phone]) Laura Tapia NP LAB MICROBIOLOGY - GENERAL ORDERABLES Final Result [facility] [address] Department [place] [address] documented in this encounter Visit Diagnoses Diagnosis Frequency of urination Urinary frequency Incomplete emptying of bladder Incomplete bladder emptying documented in this encounter Care Teams Toppiece Chopper Relationship Specialty Start Date End Date Laura Tapia NP PCP - General Family Medicine 09/30/19 10/01/22 Mariaelena Zaidi MD Consulting Physician Sleep Medicine 07/12/21 documented as of this encounter
--- OUTSIDE RECORDS SUMMARY | 2024-09-17 14:04 | XMS_ITS | Encounter Summary ---
Author Organization [facility] Medical [facility] Address [address] [place] [address] Care Team Providers Care Emergency Planning And Response Manager Name Role Phone Laura Tapia NP Primary Care Provider [phone] Reason for Referral * Procedure (Routine) - Closed Specialty Diagnoses / Procedures Referred By Contac t Referred To Contact Diagnoses Other tear of medial meniscus of left knee as current injury, initial encounter Procedures Large Joint (Hip, Knee, Shoulder) Injection: L knee Clem Bedoya MD [address] [facility] [address] DIDIER Hong [address] [address] Phone: tel: fax: [facility] Referral ID Status Reason Start Date Expiration Date Visits Re quested Visits Authorized [id number] Closed 06/28/2021 07/28/2022 1 1 Reason for Visit * Reason Comments Pain Encounter Details Date Type Department Care Team (Late st Contact Info) Description 06/28/2021 3:00 PM CDT Office Visit [facility] Orthopedic and Sports Medicine [address] [place] [address] Clem Bedoya MD [address] [facility] [address] DIDIER Hong [facility] [address] [place] [address] Other tear of medial meniscus of left [...] file 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 Branch Operation Evaluation Manager completed by using M*Modal Fluency Direct speaking [...] clot associatedwith vein wall inflammation, Cancer (CMS/HCC) ([facility]), CHF (congestive heart failure) (CMS/HCC) ([facility]), COPD (chronic obstructive pulmonary disease) (CMS/HCC) ([facility]), Coronary artery disease, History of chemotherapy, Liver disease, Seizures (CMS/HCC) ([facility]), or Stroke ([facility]/HCC) ([facility]). PAST SURGICAL HISTORY He has a past [...] posterior horn left medial meniscus. ?? 2. Sjse-sj-[id number] left patellofemoral compartment chondrosis, with small full-thickness [...] Procedure Name Priority Date/Time Associated Diagnosis Comments [place] ARTHROCENTESIS ASPIR&/INJ MAJOR JT/BURSA W/O US Routine 06/28/2021 3:00 PM CDT Other tear of medial meniscus of left knee as current injury, initial encounter documented in this encounter Results * [place] ARTHROCENTESIS ASPIR&/INJ MAJOR JT/BURSA W/O US (06/28/2021 [...] mg documented in this encounter Care Teams Emergency Planning And Response Manager Relationship Specialty Start Date End Date Laura Tapia NP PCP - General Family Medicine 09/30/19 10/01/22 documented as of this encounter
--- OUTSIDE RECORDS SUMMARY | 2024-09-17 14:04 | XMS_ITS | Encounter Summary ---
Author Organization [facility] Healthcare Address [address] [place] [address] Care Team Providers Care [employer] Dean Name Role Phone Regina Laura PHILLIPS Primary Care Provider [phone] Mariaelena Zaidi MD Unavailable Reason for Visit * Auth/Cert Specialty Diagnoses / Procedures Referred By Contac t Referred To Contact Diagnoses Benign prostatic hyperplasia with weak urinary stream Benign prostatic hyperplasia with weak urinary stream [N40.1, R39.12] Procedures KS LASER VAPORIZATION SURGERY PROSTATE, COMPLETE LASER ABLATION VAPORIZATION PROSTATE/ 90 min Referral ID Status Reason Start Date Expiration Date Visits Re quested Visits Authorized [id number] 1 1 Encounter Details Date Type Department Care Team (Late st Contact Info) Description 06/20/2022 7:30 AM CDT - 06/20/2022 9:00 AM CDT Surgery [facility] Operating Room [address] [place] [address] Jozef Nina MD [address] [place] [address] [address] GREEN LIGHT LASER VAPORIZATION OF PROSTATE Surgery [...] file 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 * General Anesthesia (Discharge Care) (Citizen [place]) * Prostate Photovaporization (Discharge Care) ([place]) * Guevara Catheter Placement and Care (Discharge Care) ([place]) * Guevara Catheter Removal (Discharge Care) (Citizen [place]) documented in this encounter Medications at Time [...] 05/25/2020 Added automatically from request for surgery [id number] Sleep apnea Past Surgical History: Procedure Laterality [...] MD Faculty, Urology division, Department of surgery, [facility] [employer] [facility] ([facility]) [facility] [place] ([facility]) documented in this encounter Miscellaneous Notes [...] FINDINGS: Trilobar occlusive prostate. COMPLICATIONS: None. DRAINS: 22-Nigerian 3-way Guevara catheter. PROCEDURE IN DETAIL: After [...] This revealed no mucosal lesions. The 26 Nigerian continuous flow resectoscope sheath was inserted using an food bagging machine operator and the GreenLight laser fiber [...] The scope was removed and a 20 Nigerian Guevara catheter was inserted. The patient was [...] that you and your doctor have chosen [facility] for your surgery. We hope that the following information will help make your visit a pleasant one. Surgery Date: 06/20/2022 and arrive at 5:30 AM [facility] (look for sign reading ???EMERGENCY - SURGERY CENTER?? ) [address] [place] [address] Before your surgery: Notify your doctor of [...] Surgery. Covid testing can be done at [facility] [address] [place] [address] Hours are: Saturday through Saturday 7 [...] insurance cards, and medication list (including all cexq-gco-factkji medications) with you. Prescriptions can be filled [...] 06/20/2022 documented in this encounter Care Teams [employer] Dean Relationship Specialty Start Date End Date Laura Tapia NP PCP - General Family Medicine 09/30/19 10/01/22 Mariaelena Zaidi MD Consulting Physician Sleep Medicine 07/12/21 documented as of this encounter
--- OUTSIDE RECORDS SUMMARY | 2024-09-17 14:04 | XMS_ITS | Encounter Summary ---
Author Organization [facility] Healthcare Address [address] [place] [address] Care Team Providers Care Window Machine Operator Name Role Phone Laura Tapia NP Primary Care Provider [phone] Mariaelena Zaidi MD Unavailable Reason for Referral * MRI/CAT/PET Scan (Routine) - Closed Specialty Diagnoses / Procedures Referred By Zaida camacho Referred To Contact Radiology Diagnoses Prostate nodule Procedures MRI Pelvis Prostate W WO Contrast Jozef Nina MD Phone: tel: fax: [place] [address] [address] Referral ID Status Reason Start Date Expiration Date Visits Re quested Visits Authorized [id number] Closed 04/12/2022 05/12/2023 1 1 Reason for Visit * MRI/CAT/PET Scan (Routine) - Closed Specialty Diagnoses / Procedures Referred By Conttom camacho Referred To Contact Radiology Diagnoses Prostate nodule Procedures MRI Pelvis Prostate W WO Contrast Jozef Nina MD Phone: tel: fax: [place] [address] [address] [address] Referral ID Status Reason Start Date Expiration Date Visits Re quested Visits Authorized [id number] Closed 04/12/2022 05/12/2023 1 1 Encounter Details Date Type Department Care Team (Latest Contact Info) Description 05/09/2022 7:07 AM CDT Hospital Encounter [facility] Imaging [address] [address] Prostate nodule Discharge Disposition: Discharge to home [...] on file 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
--- OUTSIDE RECORDS SUMMARY | 2024-09-17 14:04 | XMS_ITS | Encounter Summary ---
Author Organization [facility] Address [address] [place] [address] Phone Care Team Providers Care Medical Assistant Cardiology Name Role Phone Laura Tapia NP Primary Care Provider [phone] Mariaelena Zaidi MD Unavailable Reason for Referral * MRI/CAT/PET Scan (Routine) - Closed Specialty Diagnoses / Procedures Referred By Zaida t Referred To Contact Radiology Diagnoses Prostate nodule Procedures MRI Pelvis Prostate W WO Contrast Jozef Nina MD Phone: tel: fax: [address] [address] Referral ID Status Reason Start Date Expiration Date Visits Re quested Visits Authorized [id number] Closed 04/12/2022 05/12/2023 1 1 * Diagnostic Lab (Routine) - Closed Specialty Diagnoses / Procedures Referred By Zaida camacho Referred To Contact Lab Diagnoses Microscopic hematuria Procedures Cytology Jozef Nina MD Phone: tel: fax: Referral ID Status Reason Start Date Expiration Date Visits Re quested Visits Authorized [id number] Closed 04/12/2022 05/12/2023 1 1 Reason for [...] Expiration Date V isits Requested Visits Authorized [id number] Closed Specialty Services Required 04/04/2022 05/04/2023 99 99 Encounter Details Date Type Department Care Team (Late st Contact Info) Description 04/12/2022 3:40 PM CDT Office Visit 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 Sleep apnea Past Surgical History: Procedure [...] in the right dereje gland Extremities: (R,L) [place] and warm; no edema Musculoskeletal: Normal range [...] MD Faculty, Urology division, Department of surgery, [employer] ([facility]) [facility]ician at [place] ([facility]) documented in this encounter Plan of [...] results best viewed via link to PDF [facility] Department of Pathology [address] [place], [place] [id number] Note to Patients: ??This report may contain [...] Patient Name: ??JADEN CLEMENT Address: ??[address] [place], [place] [address] Gender: ??M : ??1970 (Age: 51) Service: ??Laboratory Location: ??Lab Hospital # ??[id number] Patient Type: ?? Ref Lab Taken: ??04/12/2022 [...] determined by the Surgical Pathology Department at [facility] as part of an ongoing assistant quality manager program and in compliance with [...] characteristics determined by the Surgical Pathology Department [facility]. ??It has not been cleared or approved by the U. S. Food and Drug Administration. Unless otherwise noted all cytology processing, staining and screening is performed at [facility] ([address] [place] [address]). REPORT IMAGES AND SCANNED DOCUMENTS, IF INCLUDED, ONLY VIEWABLE IN PDF VERSION OF REPORT us Jozef Nina MD LAB CYTOLOGY [place] [address] [place] [address] documented in this encounter Visit Diagnoses Diagnosis Microscopic hematuria- Primary Urinary frequency Incomplete emptying of bladder Incomplete bladder emptying Prostate nodule Nodular prostate without urinary obstruction Microscopic hematuria Prostate nodule Nodular prostate without urinary obstruction documented in this encounter Orders Outpatient Referral Count Last Ordered Date Fir st Ordered Date AMB REFERRAL TO UROLOGY 1 04/12/2022 documented in this encounter Care Teams Medical Assistant Cardiology Relationship Specialty Start Date End Date Laura Tapia NP PCP - General Family Medicine 09/30/19 10/01/22 Mariaelena Zaidi MD Consulting Physician Sleep Medicine 07/12/21 documented as of this encounter
--- OUTSIDE RECORDS SUMMARY | 2024-09-17 14:04 | XMS_ITS | Encounter Summary ---
Author Organization [facility] Address [address] [place] [address] Care Team Providers Care Feed Mill Operator Name Role Phone Laura Tapia NP Primary Care Provider [phone] Mariaelena Zaidi MD Unavailable Encounter Details Date Type Department Care Team (Late st Contact Info) Description 04/03/2022 Telephone [facility] Primary Care at [address] [place] [address] Laura Tapia NP [address] [place] [address] Social History Tobacco Use Types Packs/Day Years [...] on file 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 Dx: Urinary frequency, incomplete emptying, hematuria documented in this encounter Plan of Treatment Not on file documented as of this encounter Visit Diagnoses Not on filedocumented in this encounter Care Teams Feed Mill Operator Relationship Specialty Start Date End Date Laura Tapia NP PCP - General Family Medicine 09/30/19 10/01/22 Mariaelena Zaidi MD Consulting Physician Sleep Medicine 07/12/21 documented as of this encounter
--- OUTSIDE RECORDS SUMMARY | 2024-09-17 14:04 | XMS_ITS | Encounter Summary ---
Author Organization [facility] Address [address] [place] [address] Care Team Providers Care Ehs Engineer Name Role Phone Laura Tapia NP Primary Care Provider [phone] Mariaelena Zaidi MD Unavailable Reason for Visit * Reason Comments Urinary Symptom Encounter Details Date Type Department Care Team (Late st Contact Info) Description 02/20/2022 3:45 PM CDT Office Visit [facility] [address] [place] [address] Laura Tapia NP [facility] [place] [address] Urinary retention with incomplete bladder emptying (Primary [...] on file 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 Thanks for coming in today. My medical associate, Cortney, and I are thankful you have trusted us with your care, and hope that you received EXCELLENT care today! Please do not hesitate to call if you have any questions or concerns at [phone]. You may receive a phone call or [...] Tapia NP Please note: Voice recognition software RailRunner Direct was used to dictate and transcribe this document. Watch Repairer Apprentice variances may occur. Despite proofreading, typographical errors [...] in your mouth on an olegario like [employer]hip Lower carb substitutions: Aldi carries a zero [...] in much longer they will become mushy [place] and/or coconut flour instead of regular flour [...] pork rinds For yogurt, try Two Good surinamese yogurt Use Pinterdesirae for recipe ideas. Type [...] Large Ketones, ur, POC Negative Negative Specific [place], POC 1.020 1.005 - 1.030 Blood, ur, POC Negative Negative pH, ur, POC 5.5 5.0 - 8.0 Protein, ur, POC Negative Negative Urobilinogen, urine, POC 0.2 0.2 - 1.0 mg/dL Nitrite, ur, POC Negative Negative Leukocytes, ur, POC Small(A) Negative Lot Number [id number] Urine, clean voided 02/20/2022 4:14 PM CDT Laura Tapia NP POINT OF CARE TEST ORDERABL ES Final Result documented in this encounter Visit Diagnoses Diagnosis Urinary retention with incomplete bladder emptying- Primary Incomplete bladder emptying Class 2 obesity due to excess calories without serious comorbidity with body mass index (BMI) of 36.0 to 36.9 in adult documented in this encounter Care Teams Ehs Engineer Relationship Specialty Start Date End Date Laura Tapia NP PCP - General Family Medicine 09/30/19 10/01/22 Mariaelena Zaidi MD Consulting Physician Sleep Medicine 07/12/21 documented as of this encounter
--- OUTSIDE RECORDS SUMMARY | 2024-09-17 14:04 | XMS_ITS | Encounter Summary ---
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 No action to take. * Telephone Encounter - Ginger Farmer MA - 04/10/2022 3:10 PM CDT For [...] years. He thinks this was found at [facility]. He said it was biopsied at that [...] on filedocumented in this encounter Care Teams Policy Analyst Relationship Specialty Start Date End Date Laura Tapia NP PCP - General Family Medicine 09/30/19 10/01/22 Mariaelena Zaidi MD Consulting Physician Sleep Medicine 07/12/21 documented as of this encounter
--- OUTSIDE RECORDS SUMMARY | 2024-09-17 14:04 | XMS_ITS | Encounter Summary ---
Author Organization [facility] Address [address] [place] [address] Care Team Providers Care Getterer Name Role Phone Laura Tapia NP Primary Care Provider [phone] Mariaelena Zaidi MD Unavailable Reason for Visit * Reason Comments Urinary issues Frequently, urinary tention Encounter Details Date Type Department Care Team (Late st Contact Info) Description 04/03/2022 4:00 PM CDT Office Visit [facility] Primary Care at [address] [place] [address] Laura Tapia NP [address] [place] [address] Frequency of urination (Primary Dx); Incomplete [...] file 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 Send [...] in your mouth on an olegario like [employer] Lower carb substitutions: Beth carries a zero [...] in much longer they will become mushy [place] and/or coconut flour instead of regular flour [...] pork rinds For yogurt, try Two Good tanzanian yogurt Use Mercedes for recipe ideas. Type [...] Refer to Chantal Carvajal NP urology at [facility] Continue on the flomax daily. Send urine for culture to make sure it is not growing bacteria that would need an antibiotic. (I don't think you have infection) Thanks for coming in today. My medical coding auditor, Cortney, and I are thankful you have trusted us with your care, and hope that you received EXCELLENT care today! Please do not hesitate to call if you have any questions or concerns at [phone]. You may receive a phone call or [...] Tapia NP Please note: Voice recognition software Audacious was used to dictate and transcribe this document. Cutter First variances may occur. Despite proofreading, typographical errors [...] in your mouth on an olegario like [employer] Lower carb substitutions: Aldi carries a zero [...] in much longer they will become mushy [place] and/or coconut flour instead of regular flour [...] pork rinds For yogurt, try Two Good tanzanian yogurt Use Pinterest for recipe ideas. Type [...] standards) [facility] [place] Comment:Testing performed by : [facility], [address] [place]., [address] Organism (CLINICALLY INSIGNIFICANT GROWTH [facility] Urine, clean voided 04/04/2022 4:44 PM CDT 04/05/2022 12:06 AM CDT Narrative [facility] - 04/06/2022 7:28 AM CDT Testing performed by [facility] Microbiology Laboratory ([phone]) Laura Tapia NP LAB MICROBIOLOGY - GENERAL ORDERABLES Final Result [facility] [address] Department of Laboratories [place], [place] [id number] * (ABNORMAL) POCT UA, AUTO W/O SCOPE (04/03/2022 4:04 PM CDT) Color, Urine, POC Yellow Clarity, ur, POC Clear Clear Glucose, ur, POC Negative Negative MG/DL Bilirubin, ur, POC Negative Negative, Small, Moderate, Large Ketones, ur, POC Negative Negative Specific [place], POC 1.020 1.005 - 1.030 Blood, ur, [...] emptying documented in this encounter Care Teams Getterer Relationship Specialty Start Date End Date Laura Tapia NP PCP - General Family Medicine 09/30/19 10/01/22 Mariaelena Zaidi MD Consulting Physician Sleep Medicine 07/12/21 documented as of this encounter
--- OUTSIDE RECORDS SUMMARY | 2024-09-17 14:04 | XMS_ITS | Encounter Summary ---
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
--- OUTSIDE RECORDS SUMMARY | 2024-09-17 14:04 | XMS_ITS | Encounter Summary ---
Author Organization [facility] Address [address] [place] [address] Care Team Providers Care Calibration Engineer Name Role Phone Laura Tapia NP Primary Care Provider [phone] Mariaelena Zaidi MD Unavailable Reason for Visit * Reason Onset Date Comments Sleep Study 07/17/2021 Encounter Details Date Type Department Care Team (Late st Contact Info) Description 07/17/2021 Telephone [facility] Sleep Medicine at [address] [place] [phone] Yolanda Machado MA Sleep Study Social History [...] on file 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 ERY CHARGER TESTER * Telephone Encounter - Yolanda Machado MA - 07/18/2021 3:04 PM CST Will you try calling this patient again? ERY CHARGER TESTER * Telephone Encounter - Yolanda Machado MA - 07/17/2021 1:19 PM CST Attempted to reach Rhiannon twice with no answer or vm. Left message for Jaden to return our call. ERY CHARGER TESTER * Telephone Encounter - Mariaelena Zaidi MD - 07/17/2021 1:11 PM CST Looks like he no showed last apt. 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 Will send Rx for APAP 5-16 cm of water to [facility]. ERY CHARGER TESTER * Telephone Encounter - Yolanda Machado MA - 07/17/2021 12:50 PM CST Please advise [employer] message on 06/29. [facility] sleep lab states that he will be going on a hunting trip so he would like you to contact his about his study results. Would you like me to call her and set up a HST f/u? It looks like he No Showed his last visit. ERY CHARGER TESTER documented in this encounter Plan of Treatment Not on file documented as of this encounter Visit Diagnoses Not on filedocumented in this encounter Care Teams Calibration Engineer Relationship Specialty Start Date End Date Laura Tapia NP PCP - General Family Medicine 09/30/19 10/01/22 Mariaelena Zaidi MD Consulting Physician Sleep Medicine 07/12/21 documented as of this encounter
--- OUTSIDE RECORDS SUMMARY | 2024-09-17 14:05 | XMS_ITS | Encounter Summary ---
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 Please fax a order to [facility] in [place]. Thank you documented in this encounter Plan of Treatment Not on file documented as of this encounter Visit Diagnoses Not on filedocumented in this encounter Care Teams Revenue Field Auditor Relationship Specialty Start Date End Date Laura Tapia NP PCP - General Family Medicine 09/30/19 10/01/22 documented as of this encounter
--- OUTSIDE RECORDS SUMMARY | 2024-09-17 14:05 | XMS_ITS | Encounter Summary ---
Author Organization [facility] Address [address] [facility] [address] [place] [address] Care Team Providers Care Dump Worker Name Role Phone Laura Tapia NP Primary Care Provider [phone] Reason for Referral * Diagnostic Imaging (Routine) - Closed Specialty Diagnoses / Procedures Referred By Contac t Referred To Contact Diagnoses Pain in both lower extremities Procedures XR Knee Left 4 or More Views Mark Stiles PA Phone: tel: fax: Referral ID Status Reason Start Date Expiration Date Visits Re quested Visits Authorized [id number] Closed 02/08/2021 03/10/2022 1 1 * Diagnostic Imaging (Routine) - Closed Specialty Diagnoses / Procedures Referred By Contac t Referred To Contact Diagnoses Pain in both lower extremities Procedures XR Pelvis 1 or 2 Views Mark Stiles PA Phone: tel: fax: Referral ID Status Reason Start Date Expiration Date Visits Re quested Visits Authorized [id number] Closed 02/08/2021 03/10/2022 1 1 * Diagnostic Imaging (Routine) - Closed Specialty Diagnoses / Procedures Referred By Contac t Referred To Contact Diagnoses Pain in both lower extremities Procedures XR Knee Right 4 or More Views Mark Stiles PA Phone: tel: fax: Referral ID Status Reason Start Date Expiration Date Visits Re quested Visits Authorized [id number] Closed 02/08/2021 03/10/2022 1 1 Reason for Visit * Reason Comments Pain Pain Encounter Details Date Type Department Care Team (Late st Contact Info) Description 02/08/2021 2:30 PM CDT Office Visit [facility] Orthopedics and Sports Medicine [address] [place] [address] [address] [place] [address] Mark Stiles PA [address] [facility] [address] [place] [address] Pain in both lower extremities (Primary Dx); [...] on file 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 He also has no past medical history of Anemia, Asthma, Blood clot associated with vein wall inflammation, Cancer ([facility]), CHF (congestive heart failure) ([facility]), COPD (chronic obstructive pulmonary disease) ([facility]), Coronary artery disease, History of chemotherapy, Liver disease, Seizures ([facility]), or Stroke ([facility]). PAST SURGICAL HISTORY He has a past [...] x-rays. Patient voiced understanding, all questions answered. Manager Inside completed by using [employer] software, computer information science professor variances may occur. SANGEETA Villegas Cosigned by [...] sclerosis. ??Lateral tilt of patella Mark [facility] XR PROCEDURES Edite d Result - Final * XR Knee Right 4 or More Views (02/15/2021 9:54 PM CDT) Anatomical Region Laterality Modality Lower Extremities, Knee Right Digital Radiography Narrative 02/15/2021 9:54 PM CDT Tricompartmental degenerative changes with moderate narrowing, noted subchondral sclerosis. ??Lateral tilt of patella. Mark [facility] XR PROCEDURES Edite d Result - Final [...] documented as of this encounter Care Teams Dump Worker Relationship Specialty Start Date End Date Laura Tapia NP PCP - General Family Medicine 09/30/19 10/01/22 documented as of this encounter
--- OUTSIDE RECORDS SUMMARY | 2024-09-17 14:05 | XMS_ITS | Encounter Summary ---
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 Gender Identity Not on file Sexual [...] Results * eGFR (04/11/2021 5:21 PM CDT) [facility] eGFR 98 mL/min/1.7 3 m2 [facility] [...] LAB BLOOD ORDERABLES Final Result [facility] ([place]) [address] [facility] Department [place] [address] * Differential, auto (04/11/2021 5:21 PM CDT) [...] BLOOD ORDERABLES Final Result Performing Organization Address City/[facility]/ZIP Co de Phone Number [facility] ([place]) 1 [facility] [place] [address] * TSH (04/11/2021 5:21 PM CDT) Thyroid Stimulating Hormone 2.98 0.30 - 4.20 mcIUnit/mL [facility] ([place]) Blood specimen (specimen) 04/11/2021 5:21 PM CDT 04/11/2021 5:35 PM CDT Laura Tapia LAB BLOOD ORDERABLES Final Result [facility] ([place]) [address] Department [place] [address] * (ABNORMAL) Lipid panel (04/11/2021 5:21 PM CDT) [facility] Cholesterol 175 30 - 199 mg/dL [facility] ([place]ERNATH[place]) Comment: Interpretive Data Ages < or = [...] 2018. Triglycerides 176(H) <=149 mg/dL [facility] ([place]) Comment: Interpretive Data Ages < or = [...] Tapia NP LAB BLOOD ORDERABLES Final Result [facility] ([place]) [address] [facility] Department [place] [address] * Comprehensive metabolic panel (04/11/2021 5:21 PM [...] ORDERABLES Final Result [facility] ([place]) [address] [facility] Department [place] [address] * CBC with auto differential (04/11/2021 5:21 [...] ORDERABLES Final Result [facility] ([place]) 1 [facility] [place] [address] * Hemoglobin A1c (04/11/2021 5:21 PM CDT) Pathologist [facility] Hgb A1C 5.1 4.0 - 5.6 % [facility] ([place]) Estimated Average Glucose 100 mg/dL [facility] ([place]) Comment: The ADA recommends reporting an estimated Average Glucose (eAG) with all Hemoglobin A1c results using the equation derived from a study of 507 normal and diabetic adults. ??Minority populations were underrepresented and children were not included. ?? (Diabetes Care 31:3711-8151, 2008). ??The eAG is not equivalent to a fasting glucose. Blood specimen (specimen) 04/11/2021 5:21 PM CDT 04/12/2021 6:18 AM CDT us Laura Tapia NP LAB BLOOD ORDERABLES Final Result Performing Organization Address City/[facility]/ZIP Co de Phone Number [facility] ([place]) 1 [facility] [place] [address] * Vitamin D 25 hydroxy (04/11/2021 5:21 PM CDT) Pathologist [facility] Vitamin D 25-OH 34 30 - 80 ng/mL [facility] ([place]) Blood specimen (specimen) 04/11/2021 5:21 PM CDT 04/11/2021 5:35 PM CDT Laura Tapia NP LAB BLOOD ORDERABLES Final Result [facility] ([place]) [address] [facility] [place] [address] documented in this encounter Visit Diagnoses Diagnosis Class 1 obesity due to excess calories without serious comorbidity with body mass index (BMI) of 34.0 to 34.9 in adult Essential hypertension Unspecified essential hypertension Situational anxiety documented in this encounter Care Teams Geotechnical Field Technician Relationship Specialty Start Date End Date Laura Tapia NP PCP - General Family Medicine 09/30/19 10/01/22 documented as of this encounter
--- OUTSIDE RECORDS SUMMARY | 2024-09-17 14:05 | XMS_ITS | Encounter Summary ---
Author Organization 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 documented in this encounter Plan of Treatment Not on file documented as of this encounter Visit Diagnoses Not on filedocumented in this encounter Care Teams Lcsw Relationship Specialty Start Date End Date Laura Tapia NP PCP - General Family Medicine 09/30/19 10/01/22 documented as of this encounter
--- OUTSIDE RECORDS SUMMARY | 2024-09-17 14:05 | XMS_ITS | Encounter Summary ---
Author Organization [facility] Address [address] [facility] [address] [place] [address] Care Team Providers Care Cable Ferry Operator Name Role Phone Laura Tapia NP Primary Care Provider [phone] Reason for Visit * Diagnostic Imaging (Routine) - Closed Specialty Diagnoses / Procedures Referred By Conttom t Referred To Contact Diagnoses Pain in both lower extremities Procedures XR Knee Right 4 or More Views Mark Stiles PA Phone: tel: fax: Referral ID Status Reason Start Date Expiration Date Visits Re quested Visits Authorized [id number] Closed 02/08/2021 03/10/2022 1 1 Encounter Details Date Type Department Care Team (Latest Contact Info) Description 02/08/2021 7:54 AM CDT - 02/08/2021 11:59 PM CDT Hospital Encounter [facility] Orthopedics and Sports Medicine [address] [facility] [address] [address] Discharge Disposition: Discharge to home or self [...] on file 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
--- OUTSIDE RECORDS SUMMARY | 2024-09-17 14:05 | XMS_ITS | Encounter Summary ---
Author Organization [facility] Address [address] [facility] [address] [place] [address] Care Team Providers Care Wire Drawing Machine Operator Name Role Phone Laura Tapia NP Primary Care Provider [phone] Reason for Visit * Reason Comments Anxiety Encounter Details Date Type Department Care Team (Late st Contact Info) Description 07/27/2020 9:15 AM HAY BUCKLER Office Visit [facility] [address] [place] [phone] Laura Tapia NP [address] [place] [address] Situational anxiety (Primary Dx); Psychophysiological insomnia; Class [...] on file Legal 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 During the visit, I was located in the office and the patient was located at home in the [facility]. The patient visit started at 0903 [...] your phone. Examples would be headspace, calm, [id number], Personal Steve. Please work on this every [...] your phone. Examples would be headspace, calm, [id number], Personal Steve. Please work on this every [...] in much longer they will become mushy Cut Off and/or coconut flour instead of regular flour [...] Brandon Aguayo MD at 07/28/2020 9:00 AM HAY BUCKLER BUCKLER BUCKLER documented in this encounter Miscellaneous Notes * [...] your phone. Examples would be headspace, calm, [id number], Personal Steve. Please work on this every [...] be able to help yourself more effectively. BUCKLER * Assessment & Plan Note - Lauar Tapia NP - 07/27/2020 9:24 AM CSTAssociated [...] in much longer they will become mushy Cut Off and/or coconut flour instead of regular flour [...] for recipe ideas. Type in low carb... BUCKLER * Assessment & Plan Note - Laura [...] your phone. Examples would be headspace, calm, [id number], Personal Steve. Please work on this every [...] be able to help yourself more effectively. BUCKLER BUCKLER documented in this encounter Plan of Treatment Not on file documented as of this encounter Visit Diagnoses Diagnosis Situational anxiety- Primary Psychophysiological insomnia Persistent disorder of initiating or maintaining sleep Class 1 obesity due to excess calories without serious comorbidity with body mass index (BMI) of 34.0 to 34.9 in adult documented in this encounter Care Teams Wire Drawing Machine Operator Relationship Specialty Start Date End Date Laura Tapia NP PCP - General Family Medicine 09/30/19 10/01/22 documented as of this encounter
--- OUTSIDE RECORDS SUMMARY | 2024-09-17 14:05 | XMS_ITS | Encounter Summary ---
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
--- OUTSIDE RECORDS SUMMARY | 2024-09-17 14:05 | XMS_ITS | Encounter Summary ---
Author Organization [facility] Address [address] 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
--- OUTSIDE RECORDS SUMMARY | 2024-09-17 14:05 | XMS_ITS | Encounter Summary ---
Author Organization [facility] Address [address] [facility] [address] [place] [address] Care Team Providers Care Horse Farm Manager Name Role Phone Laura Tapia NP Primary Care Provider [phone] Reason for Visit * Diagnostic Imaging (Routine) - Closed Specialty Diagnoses / Procedures Referred By Conttom t Referred To Contact Diagnoses Pain in both lower extremities Procedures XR Knee Left 4 or More Views Mark Stiles PA Phone: tel: fax: Referral ID Status Reason Start Date Expiration Date Visits Re quested Visits Authorized [id number] Closed 02/08/2021 03/10/2022 1 1 Encounter Details Date Type Department Care Team (Latest Contact Info) Description 02/08/2021 7:54 AM CDT - 02/08/2021 11:59 PM CDT Hospital Encounter [facility] Orthopedics and Sports Medicine [address] [facility] [address] [phone] Discharge Disposition: Discharge to home or self [...] on file 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
--- OUTSIDE RECORDS SUMMARY | 2024-09-17 14:05 | XMS_ITS | Encounter Summary ---
Author Organization [facility] Address [address] [facility] [address] [place] [address] Care Team Providers Care Communications Lead Name Role Phone Laura Tapia NP Primary Care Provider [phone] Reason for Visit * Reason Onset Date Comments knee surgery? 05/01/2021 Encounter Details Date Type Department Care Team (Late st Contact Info) Description 05/01/[address] [facility] Orthopedics and Sports Medicine [address] [facility] [address] [place] [phone] Clem Bedoya MD [address] [facility] [address] [place], [place] [phone] knee surgery? 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
--- OUTSIDE RECORDS SUMMARY | 2024-09-17 14:05 | XMS_ITS | Encounter Summary ---
Author Organization [facility] Healthcare Address [address] [place] [address] Care Team Providers Care Sugar Presser Name Role Phone Regina Laura PHILLIPS Primary Care Provider [phone] Encounter Details Date Type Department Care Team (Late st Contact Info) Description 08/26/2020 8:00 AM INSPECTOR MACHINED PARTS - 08/26/2020 8:30 AM INSPECTOR MACHINED PARTS Surgery [facility] [address] [place] [address] Antoinette Sawyer MD [address] [place] [address] COLONOSCOPY Surgery Details Date/Time Status Location OR [...] file Legal Sex Male 8:02 AM INSPECTOR MACHINED PARTS Gender Identity Not on file Sexual Orientation Not on file documented as of this encounter Last Filed Vital Signs Vital Sign Reading Time Taken Comments Blood Pressure 126/78 08/26/2020 7:34 AM INSPECTOR MACHINED PARTS Pulse 71 08/26/2020 7:34 AM INSPECTOR MACHINED PARTS Temperature 36.8 ??C (98.2 ??F) 08/26/2020 7:34 AM CS T Respiratory Rate 18 08/26/2020 7:34 AM INSPECTOR MACHINED PARTS Oxygen Saturation 97% 08/26/2020 7:34 AM INSPECTOR MACHINED PARTS Inhaled Oxygen Concentration - - Weight - [...] GI PLAN/RECOMMENDATIONS: 1. colonoscopy Antoinette Sawyer MD ECTOR MACHINED PARTS documented in this encounter Procedure Notes * Antoinette Sawyer MD - 08/26/2020 7:40 AM CSTAssociated Order(s): COLONOSCOPY Digestive [facility] Patient Name: Jaden De La Torre Procedure Date: 08/26/2020 7:40 AM Date of : 1970 Admit Type: Outpatient Age: 49 Gender: Male Attending MD: Antoinette Sawyer M.D. Room: [facility] ENDOSCOPY ROOM 1 Note Status: Finalized Patient Profile: This is a 49 year old male. No family history of colon cancer. No specific GI complaint. Procedure: Colonoscopy Indications: Screening for colorectal malignant neoplasm, This is the patient's first colonoscopy Referring MD: oJrdan Corado Providers: Antoinette Sawyer M.D. Impression: - [...] under direct vision. The Pediatric Colonoscope PCF-H190L [id number] was introduced through the anus and advanced [...] 7:40 AM Procedure Code(s): --- Professional --- 86262, Colonoscopy, flexible; diagnostic, including collection of specimen(s) by brushing or washing, when performed (separate procedure) Diagnosis Code(s): --- Professional --- Z12.11, Encounter for screening for malignant neoplasm of colon K64.8, Other hemorrhoids CPT copyright 2017 [employer]. All rights reserved. The codes documented in this report are preliminary and upon residential sales consultant review may be revised to meet current compliance requirements. Recognized by the [employer] [place] for promoting quality in endoscopy ECTOR MACHINED PARTS documented in this encounter Miscellaneous Notes * Perioperative Nursing Note - Dianna Wells, RN - 08/26/2020 9:03 [address] MACHINED PARTS Dr[address] Sawyer discharged patient to follow up in 10 years for next colonoscopy. Patient is passing air and has no discomfort post procedure. ECTOR MACHINED PARTS documented in this encounter Plan of Treatment Not on file documented as of this encounter Procedures Procedure Name Priority Date/Time Associated Diagnosis Comments COLONOSCOPY 08/26/2020 8:07 AM INSPECTOR MACHINED PARTS Rectal pain Encounter for screening colonoscopy COLONOSCOPY 08/26/2020 7:40 AM INSPECTOR MACHINED PARTS documented in this encounter Results * COLONOSCOPY (08/26/2020 7:40 AM INSPECTOR MACHINED PARTS) Anatomical Region Laterality Modality Other Narrative Procedure Note Antoinette Sawyer MD - 08/26/2020 7:40 AM CST [facility] Patient Name: Jaden De La Torre Procedure Date: 08/26/2020 7:40 AM Date of : 1970 Admit Type: Outpatient Age: 49 Gender: Male Attending MD: Antoinette Sawyer M.D. Room: [facility] ENDOSCOPY ROOM 1 Note Status: Finalized Patient [...] passed under direct vision.The Pediatric Colonoscope PCF-H190L [id number] was introduced through the anus and advanced [...] 7:40 AM Procedure Code(s): --- Professional --- 87638, Colonoscopy, flexible; diagnostic, including collection of specimen(s) by brushing or washing, when performed (separateprocedure) Diagnosis Code(s): --- Professional --- Z12.11, Encounter for screening for malignant neoplasm of colon K64.8, Other hemorrhoids CPT copyright 2017 [employer]. All rights reserved. The codes documented in this report are preliminary and upon residential sales consultant reviewmay be revised to meet current compliance requirements. Recognized by the [employer] for promoting quality [...] Pre-Procedure (GI) New Bag 08/26/2020 7:54 AM INSPECTOR MACHINED PARTS 30 mL/hr 30 mL/hr sodium chloride 0.9% infusion 125 mL/hr, intravenous, Continuous, Starting on Sat08/26/20 at 0800, Recovery (GI) New Bag 08/26/2020 8:12 AM INSPECTOR MACHINED PARTS documented in this encounter Active and Recently Administered Medications Times are shown in INSPECTOR MACHINED PARTS. Scheduled Medication Order 08/24/2020 08/25/2020 08/26/2020 sodium [...] Transfer Provider - Reason: Patient not available)[id number] ([facility] Unhold - Provider: Automatic Discharge Provider) documented in this encounter Orders Medications Ordered That Aden ht Not Have Been Administered Count Last Ordered Date First Ordered Date ondansetron (ZOFRAN) injection 4 mg 1 08/26 sodium chloride 0.9% flush 0.5-20 mL 2 08/09 sodium chloride 0.9% infusion 1 08/26/2020 documented in this encounter Care Teams Sugar Presser Relationship Specialty Start Date End Date Laura Tapia NP PCP - General Family Medicine 09/30/19 10/01/22 documented as of this encounter
--- OUTSIDE RECORDS SUMMARY | 2024-09-17 14:05 | XMS_ITS | Encounter Summary ---
Author Organization [facility] Address [address] [place] [address] Care Team Providers Care Framer Name Role Phone Laura Tapia NP Primary Care Provider [phone] Reason for Visit * Diagnostic Imaging (Routine) - Closed Specialty Diagnoses / Procedures Referred By Conttom t Referred To Contact Diagnoses Pain in both lower extremities Procedures XR Pelvis 1 or 2 Views Mark Stiles PA Phone: tel: fax: Referral ID Status Reason Start Date Expiration Date Visits Re quested Visits Authorized [id number] Closed 02/08/2021 03/10/2022 1 1 Encounter Details Date Type Department Care Team (Latest Contact Info) Description 02/08/2021 7:54 AM CDT - 02/08/2021 11:59 PM CDT Hospital Encounter [facility] Medical [facility] Orthopedics and Sports Medicine [address], [place] [phone] Discharge Disposition: Discharge to home or self [...] on file 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
--- OUTSIDE RECORDS SUMMARY | 2024-09-17 14:05 | XMS_ITS | Encounter Summary ---
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 Thank you [phone] documented in this encounter Plan of Treatment Not on file documented as of this encounter Visit Diagnoses Not on filedocumented in this encounter Care Teams Air Traffic Control Operator Relationship Specialty Start Date End Date Laura Tapia NP PCP - General Family Medicine 09/30/19 10/01/22 documented as of this encounter
--- OUTSIDE RECORDS SUMMARY | 2024-09-17 14:05 | XMS_ITS | Encounter Summary ---
Author Organization [facility] Address [address] [place] [address] Care Team Providers Care Pulverizer Mill Operator Name Role Phone Laura Tapia NP Primary Care Provider [phone] Reason for Referral * MRI/CAT/PET Scan (Routine) - Closed Specialty Diagnoses / Procedures Referred By Contac t Referred To Contact Radiology Diagnoses Patellofemoral pain syndrome of both knees Acute pain of both knees Tear of lateral meniscus of left knee, unspecified tear type, unspecified whether old or current tear, subsequent encounter Procedures MRI Knee Left WO Contrast Mark Stiles PA Phone: tel: fax: [facility] [address] [place] [address] Referral ID Status Reason Start Date Expiration Date Visits Re quested Visits Authorized [id number] Closed 04/06/2021 05/06/2022 1 1 Reason for Visit * Reason Comments Follow-up Follow-up Encounter Details Date Type Department Care Team (Late st Contact Info) Description 04/05/2021 3:00 PM CDT Office Visit [facility] Orthopedics and Sports Medicine [address] [place] [address] Mark Stiles PA [address] [facility] [address] [place] [address] Patellofemoral pain syndrome of both knees (Primary [...] file 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 PAST SURGICAL HISTORY He has a past [...] patient. Patient voiced understanding, all questions answered. Pigment Processor completed by using [employer] software, raking machine operator variances may occur. SANGEETA Villegas Cosigned by [...] PM T: ??07/13/2021 2:30 PM Report ID: [id number] Reading Location: ??[id number] Narrative 04/27/2021 3:33 AM CDT EXAM DESCRIPTION: [...] posterior horn left medial meniscus. ?? 2. ??Zvad-ja-yonbfcnj left patellofemoral compartment chondrosis, with small full-thickness chondral defect of the lateral left femoral condyle. 3. ??Intact left knee lateral meniscus, cruciate, and collateral ligaments. THIS IS AN ELECTRONICALLY VERIFIED FINAL REPORT 04/27/2021 3:33 AM - Electronically signed by Anoop Ramírez M.D. RT: RT D: ??04/27/2021 3:33 AM T: ??04/27/2021 3:33 AM Report ID: [id number] Reading Location: ??[id number] Procedure Note Anoop Ramírez MD - 04/27/2021 [...] the posterior horn left medial meniscus. 2. Dirw-ap-auzeljfk left patellofemoral compartment chondrosis, withsmall full-thickness chondral defect of the lateral left femoral condyle. 3. Intact left knee lateral meniscus, cruciate, and collateral ligaments. THIS IS AN ELECTRONICALLY VERIFIED FINAL REPORT 04/27/2021 3:33 AM - Electronically signed by Anoop Ramírez M.D. RT: RT Report ID: [id number] Reading Location: [place] [address] Mark [facility] MRI PROCEDURES Edit ed [...] encounter documented in this encounter Care Teams Pulverizer Mill Operator Relationship Specialty Start Date End Date Laura Tapia NP PCP - General Family Medicine 09/30/19 10/01/22 documented as of this encounter
--- OUTSIDE RECORDS SUMMARY | 2024-09-17 14:05 | XMS_ITS | Encounter Summary ---
Author Organization [facility] Address [address] [place] [address] Care Team Providers Care Art Critic Name Role Phone Laura Tapia MUD ANALYSIS WELL LOGGING CAPTAIN Primary Care Provider [phone] Encounter Details Date Type Department Care Team (Late st Contact Info) Description 05/09/2021 Orders Only [facility] [address] [place] [address] Laura Tapia, MUD ANALYSIS WELL LOGGING CAPTAIN [address] [place] [address] Social History Tobacco Use Types Packs/Day Years [...] on file 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
--- OUTSIDE RECORDS SUMMARY | 2024-09-17 14:05 | XMS_ITS | Encounter Summary ---
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 Gender Identity Not on file Sexual Orientation Not on file documented as of this encounter Plan of Treatment Not on file documented as of this encounter Results * Vitamin D 25 hydroxy (04/11/2021 5:21 PM CDT) Vitamin D 25-OH 34 30 - 80 ng/mL [facility] ([place]) Blood specimen (specimen) 04/11/2021 5:21 PM CDT 04/11/2021 5:35 PM CDT Laura Regina PRODUCTION OFFICER LAB BLOOD ORDERABLES Final Result Performing Organization Address City/[facility]/ZIP Co de Phone Number [facility] ([place]) 1 [facility] [employer] ([employer] [place] [address] * TSH (04/11/2021 5:21 PM CDT) Thyroid Stimulating Hormone 2.98 0.30 - 4.20 mcIUnit/mL [facility] ([place]) Blood specimen (specimen) 04/11/2021 5:21 PM CDT 04/11/2021 5:35 PM CDT Laura Tapia LAB BLOOD ORDERABLES Final Result Performing Organization Address [facility] Co de Phone Number [facility] ([place] 1 [facility] [place] [address] * (ABNORMAL) Lipid panel (04/11/2021 5:21 PM [...] 04/11/2021 5:35 PM CDT us Laura Tapia PRODUCTION OFFICER LAB BLOOD ORDERABLES Final Result [facility] ([place]) 1 [facility] [place] [address] * Comprehensive metabolic panel (04/11/2021 [...] ORDERABLES Final Result [facility] ([place]) 1 [facility] Department [place] [address] * CBC with auto differential (04/11/2021 5:21 PM CDT) WBC 6.0 3.8 - 9.9 K/cumm [facility] ([place]) Hgb 14.7 13.0 - 17.5 g/dL [facility] ([place]) Hct 42.4 38.9 - 50.3 % [facility] ([place]) Plt 214 150 - 400 K/cumm [facility] ([place]) MPV 9.9 9.1 - 12.3 fL [facility] RBC 4.62 4.30 - 5.80 M/cumm [facility] ([place]) MCV 91.8 81.3 - 96.4 fL [facility] ([place]) MCH 31.8 27.1 - 33.3 pg [facility] ([place]) MCHC 34.7 32.3 - 35.7 g/dL [facility] RDW CV 12.5 11.1 - 14.9 % [facility] ([place] RDW SD 41.5 35.7 - 48.1 fL [facility] ([place]) NRBC abs 0.00 0.00 - 0.01 K/cumm [facility] Blood specimen (specimen) 04/11/2021 5:21 PM CDT 04/11/2021 5:35 PM CDT Laura Tapia NP LAB BLOOD ORDERABLES Final Result [facility] ([place]) 1 [facility] Department [place] [address] * Hemoglobin A1c (04/11/2021 5:21 PM CDT) Hgb A1C 5.1 4.0 - 5.6 % [facility] Estimated Average Glucose 100 mg/dL [facility] Comment: The ADA recommends reporting an estimated Average Glucose (eAG) with all Hemoglobin A1c results using the equation derived from a study of 507 normal and diabetic adults. ??Minority populations were underrepresented and children were not included. ?? (Diabetes Care 31:7687-6589, 2008). ??The eAG is not equivalent to a fasting glucose. Blood specimen (specimen) 04/11/2021 5:21 PM CDT 04/12/2021 6:18 AM CDT Laura Tapia NP LAB BLOOD ORDERABLES Final Result [facility]) 1 [facility] Department [place] [address] documented in this encounter Visit Diagnoses Diagnosis Essential hypertension- Primary Unspecified essential hypertension Situational anxiety Class 1 obesity due to excess calories without serious comorbidity with body mass index (BMI) of 34.0 to 34.9 in adult documented in this encounter Care Teams Software Security Consultant Relationship Specialty Start Date End Date Laura Tapia NP PCP - General Family Medicine 09/30/19 10/01/22 documented as of this encounter
--- OUTSIDE RECORDS SUMMARY | 2024-09-17 14:05 | XMS_ITS | Encounter Summary ---
Author Organization [facility] Healthcare Address [address] [place] [address] Care Team Providers Care Bioinformaticist Name Role Phone Regina Laura PHILLIPS Primary Care Provider [phone] Encounter Details Date Type Department Care Team (Latest Contact Info) Description 08/26/2020 6:51 AM SHIPPING CHECKER - 08/26/2020 9:32 AM SHIPPING CHECKER Hospital Encounter [facility] 1 [place] [address] Antoinette Sawyer MD [address] [place] [address] Discharge Disposition: Discharge to home or self [...] on file Legal Sex Male 8:02 AM SHIPPING CHECKER Gender Identity Not on file Sexual Orientation Not on file documented as of this encounter Last Filed Vital Signs Vital Sign Reading Time Taken Comments Blood Pressure 126/80 08/26/2020 9:08 AM SHIPPING CHECKER Pulse 64 08/26/2020 9:08 AM SHIPPING CHECKER Temperature 36.8 ??C (98.3 ??F) 08/26/2020 9:08 AM CS T Respiratory Rate 18 08/26/2020 9:08 AM SHIPPING CHECKER Oxygen Saturation 98% 08/26/2020 9:08 AM SHIPPING CHECKER Inhaled Oxygen Concentration - - Weight - [...] WITHOUT COMPLICATIONS Hyperlipidemia, unspecified - HYPERLIPIDEMIA, UNSPECIFIED shelter (current) use of aspirin - SUPERVISOR TANK HOUSE (CURRENT) USE OF ASPIRIN Other drafter seismograph (current) drug therapy - OTHER HALF-WAY (CURRENT) DRUG THERAPY Family history of ischemic [...] GI PLAN/RECOMMENDATIONS: 1. colonoscopy Antoinette Sawyer MD PING CHECKER documented in this encounter Procedure Notes * Antoinette Sawyer MD - 08/26/2020 7:40 AM CSTAssociated Order(s): COLONOSCOPY [facility] Patient Name: Jaden De La Torre Procedure Date: 08/26/2020 7:40 AM Date of : 1970 Admit Type: Outpatient Age: 49 Gender: Male Attending MD: Antoinette Sawyer M.D. Room: [facility] 1 Note Status: Finalized [...] under direct vision. The Pediatric Colonoscope PCF-H190L [id number] was introduced through the anus and advanced [...] 7:40 AM Procedure Code(s): --- Professional --- 77905, Colonoscopy, flexible; diagnostic, including collection of specimen(s) by brushing or washing, when performed (separate procedure) Diagnosis Code(s): --- Professional --- Z12.11, Encounter for screening for malignant neoplasm of colon K64.8, Other hemorrhoids CPT copyright 2017 [employer]. All rights reserved. The codes documented in this report are preliminary and upon him coder review may be revised to meet current compliance requirements. Recognized by the [employer] for promoting quality in endoscopy PING CHECKER documented in this encounter Miscellaneous Notes * Perioperative Nursing Note - Dianna Wells RN - 08/26/2020 9:[address] Sawyer discharged patient to follow up in 10 years for next colonoscopy. Patient is passing air and has no discomfort post procedure. PING CHECKER documented in this encounter Plan of Treatment Not on file documented as of this encounter Procedures Procedure Name Priority Date/Time Associated Diagnosis Comments COLONOSCOPY 08/26/2020 8:07 AM SHIPPING CHECKER Rectal pain Encounter for screening colonoscopy COLONOSCOPY 08/26/2020 7:40 AM SHIPPING CHECKER documented in this encounter Results * COLONOSCOPY (08/26/2020 7:40 AM SHIPPING CHECKER) Anatomical Region Laterality Modality Other Narrative Procedure Note Antoinette Sawyer MD - 08/26/2020 7:40 AM CST [facility] Patient Name: Jaden De La Torre Procedure Date: 08/26/2020 7:40 AM Date of : 1970 Admit Type: Outpatient Age: 49 Gender: Male Attending MD: Antoinette Sawyer M.D. Room: [facility] 1 Note Status: Finalized [...] passed under direct vision.The Pediatric Colonoscope PCF-H190L [id number] was introduced through the anus and advanced [...] 7:40 AM Procedure Code(s): --- Professional --- 14609, Colonoscopy, flexible; diagnostic, including collection of specimen(s) by brushing or washing, when performed (separateprocedure) Diagnosis Code(s): --- Professional --- Z12.11, Encounter for screening for malignant neoplasm of colon K64.8, Other hemorrhoids CPT copyright 2017 [employer]. All rights reserved. The codes documented in this report are preliminary and upon him coder reviewmay be revised to meet current compliance requirements. Recognized by the [employer] for promoting quality [...] Pre-Procedure (GI) New Bag 08/26/2020 7:54 AM SHIPPING CHECKER 30 mL/hr 30 mL/hr sodium chloride 0.9% infusion 125 mL/hr, intravenous, Continuous, Starting on Sat08/26/20 at 0800, Recovery (GI) New Bag 08/26/2020 8:12 AM SHIPPING CHECKER documented in this encounter Active and Recently Administered Medications Times are shown in SHIPPING CHECKER. Scheduled Medication Order 08/24/2020 08/25/2020 08/26/2020 sodium [...] Transfer Provider - Reason: Patient not available)1332 ([facility] Unhold - Provider: Automatic Discharge Provider) sodium [...] 08/26/2020 documented in this encounter Care Teams Bioinformaticist Relationship Specialty Start Date End Date Laura Tapia NP PCP - General Family Medicine 09/30/19 10/01/22 documented as of this encounter
--- OUTSIDE RECORDS SUMMARY | 2024-09-17 14:05 | XMS_ITS | Encounter Summary ---
Author Organization [facility] Address [address] [facility] [place] [address] Care Team Providers Care Manager Ccu Name Role Phone Laura Tapia NP Primary Care Provider [phone] Reason for Referral * Consultation (Routine) - Closed Specialty Diagnoses / Procedures Referred By Zaida t Referred To Contact Sleep Medicine Diagnoses Obstructive sleep apnea syndrome Laura Tapia NP Phone: tel: fax: Radha Pimentel MD [address] [place] [address] [address] [place] [address] Phone: tel: Referral ID Status Reason Start Date Expiration Date V isits Requested Visits Authorized [id number] Closed Specialty Services Required 04/11/2021 10/12/2021 1 1 Question Answer Please select the performing region: [facility] Medical [facility] [[id number]] Please select the performing department: [facility] SLEEP MED [facility] [[id number]] To provider: RADHA PIMENTEL [[id number]] # of visits: 1 Comments Willing to go to [facility] or [facility] to be seen sooner. He has cpap that he uses nightly but not sleeping well and falling asleep mid conversation. 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 Type in low carb... Orders: - Vitamin D 25 hydroxy; Future Lesion of skin of nose Comments: Víctor Edward (dermatology) [phone] [place] [address], [address] [place], [place] [id number] Orders: - Ambulatory referral to Dermatology; Future Localized swelling of lower extremity Comments: wear compression socks (up to the knees, not the groin) Víctor Edawrd (dermatology) [phone] [place] [address], [address] [place] [address] Thanks for coming in today. My medical program specialist, Cortney, and I are thankful you have trusted us with your care, and hope that you received EXCELLENT care today! Please do not hesitate to call if you have any questions or concerns at [phone]. You may receive a phone call or [...] of cdif and vit B12 deficiency with senior care use of PPI with pt, would like [...] in your mouth on an olegario like [employer] or [employer] carries a zero net carb bread [...] in much longer they will become mushy [place] and/or coconut flour instead of regular flour [...] pork rinds For yogurt, try Two Good lithuanian yogurt Use Pinterest for recipe ideas. Type in low carb... Orders: - Vitamin D 25 hydroxy; Future Lesion of skin of nose Comments: Víctor Edward (dermatology) [phone] [place] [address], [address] [place] [address] Orders: - Ambulatory referral to Dermatology; Future Localized swelling of lower extremity Comments: wear compression socks (up to the knees, not the groin) Víctor Edward (dermatology) [phone] [place] [address], [address] [place] [address] Thanks for coming in today. My medical program specialist, Cortney, and I are thankful you have trusted us with your care, and hope that you received EXCELLENT care today! Please do not hesitate to call if you have any questions or concerns at [phone]. You may receive a phone call or [...] Tapia NP Please note: Voice recognition software [employer] was used to dictate and transcribe this document. Security Flex Utility Officer variances may occur. Despite proofreading, typographical errors [...] of cdif and vit B12 deficiency with senior care use of PPI with pt, would like [...] in your mouth on an olegario like [employer] or [employer] Beth carries a zero net carb bread [...] in much longer they will become mushy [place] and/or coconut flour instead of regular flour [...] pork rinds For yogurt, try Two Good lithuanian yogurt Use Pinterest for recipe ideas. Type [...] documented as of this encounter Care Teams Manager Ccu Relationship Specialty Start Date End Date Laura Tapia NP PCP - General Family Medicine 09/30/19 10/01/22 documented as of this encounter
--- OUTSIDE RECORDS SUMMARY | 2024-09-17 14:05 | XMS_ITS | Encounter Summary ---
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 Needs to do an appt, may do zoom IGERATING ENGINEER HEAD * Telephone Encounter - Cortney Long MA [...] med to help him relax and sleep? IGERATING ENGINEER HEAD documented in this encounter Plan of Treatment Not on file documented as of this encounter Visit Diagnoses Not on filedocumented in this encounter Care Teams Hand Stitcher Relationship Specialty Start Date End Date Laura Tapia NP PCP - General Family Medicine 09/30/19 10/01/22 documented as of this encounter
--- OUTSIDE RECORDS SUMMARY | 2024-09-17 14:05 | XMS_ITS | Encounter Summary ---
Author Organization [facility] Medical Group Address [address] 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
--- OUTSIDE RECORDS SUMMARY | 2024-09-17 14:05 | XMS_ITS | Encounter Summary ---
Author Organization [facility] Healthcare Address [address] [place] [address] Care Team Providers Care Gas Plant Technician Name Role Phone Regina Laura PHILLIPS Primary Care Provider [phone] Encounter Details Date Type Department Care Team (Late st Contact Info) Description 08/26/2020 8:11 AM HONING MACHINE OPERATOR TOOL Anesthesia Event [address] [address] [place] [id number] [address] Anesthesia Record Procedure Summary Procedure Name Responsible [...] RETRO-PERITONEAL BIOPSY; 08/11/24 (Retired LDA, Removed/Completed by [employer] with LDA Utility); 1213 (Retired LDA, Removed/Completed by [employer] with LDA Utility) 02/06/19 1307 by Ye [...] on file Legal Sex Male 8:02 AM HONING MACHINE OPERATOR TOOL Gender Identity Not on file Sexual Orientation Not on file documented as of this encounter OR Notes * Anesthesia Postprocedure Evaluation - Aliya Berumen MD - 08/26/2020 8:39 AM CST Patient: Jaden De La Torre Procedure Summary Date: 08/26/20 Room / Location: [facility]COPY ROOM 1 / [facility] Anesthesia Start: 810 Anesthesia Stop: 836 [...] acceptable Pt is: normothermic Nausea/Vomiting status: none NG MACHINE OPERATOR TOOL * Anesthesia Preprocedure Evaluation - Aliya Berumen [...] Medication protocol when under care of a TRANSIT OPERATOR Planned anesthesia: General/TIVA Induction: Induction: intravenous. Postoperative Plan: No plan for postoperative opioid use. Patient's planned disposition post procedure is Outpatient. Informed Consent: Discussed plan with TRANSIT OPERATOR and attending. Anesthesia plan and risks discussed with patient. Consent and Attending signature: I and/or my designee have discussed the anesthesia plan, benefits, possible alternatives, parental presence at time of induction (if indicated), and clinically relevant risks that may include dental injury, unintentional awareness, and/or other complications. The patient and/or parent/legal guardian understand, and agree to proceed. All questions answered. NG MACHINE OPERATOR TOOL documented in this encounter Plan of Treatment [...] Ventricular ArrhythmiasIndications:Ventricular Arrhythmias Given 08/26/2020 8:25 AM HONING MACHINE OPERATOR TOOL 40 mg propofoL (DIPRIVAN) IV intravenous, As needed, Starting on Sat08/26/20 at 0825, Anesthesia Intra-op Given 08/26/2020 8:31 AM HONING MACHINE OPERATOR TOOL 30 mg Given 08/26/2020 8:28 AM HONING MACHINE OPERATOR TOOL 40 mg Given 08/26/2020 8:27 AM HONING MACHINE OPERATOR TOOL 40 mg sodium chloride 0.9% infusion 125 mL/hr, intravenous, Continuous, Starting on Sat08/26/20 at 0800, Recovery (GI) New Bag 08/26/2020 8:12 AM HONING MACHINE OPERATOR TOOL documented in this encounter Care Teams Gas Plant Technician Relationship Specialty Start Date End Date Laura Tapia NP PCP - General Family Medicine 09/30/19 10/01/22 documented as of this encounter
--- OUTSIDE RECORDS SUMMARY | 2024-09-17 14:05 | XMS_ITS | Encounter Summary ---
Author Organization [facility] Address [address] [place] [address] Care Team Providers Care Wood Form Builder Name Role Phone Laura Tapia COTTON FEEDER Primary Care Provider [phone] Reason for Referral * Sleep Medicine (Routine) - Closed Specialty Diagnoses / Procedures Referred By Zaida camacho Referred To Contact Diagnoses Obstructive sleep apnea syndrome Procedures Portable/Home Sleep Study Mariaelena Zaidi MD Phone: tel: [address] [phone] Referral ID Status Reason Start Date Expiration Date Visits Re quested Visits Authorized [id number] Closed 05/17/2021 06/16/2022 1 1 Reason for Visit * Reason Comments Sleep Apnea falls asleep just si tting talking to someone CPAP Follow Up machine is 6 plus ye ars old. * Consultation (Routine) - Closed Specialty Diagnoses / Procedures Referred By Zaida camacho Referred To Contact Sleep Medicine Diagnoses Obstructive sleep apnea syndrome Laura Tapia NP Phone: tel: fax: Mariaelena Zaidi MD [address] [place] [address] Phone: tel: Referral ID Status Reason Start Date Expiration Date V isits Requested Visits Authorized [id number] Closed Specialty Services Required 04/11/2021 10/12/2021 1 1 Encounter Details Date Type Department Care Team (Late st Contact Info) Description 05/17/2021 2:30 PM CDT Office Visit 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 Patient started using it every night and uses it throughout the night. Patient had a new machine around 6 years ago through the [place]. Patient states that he has gained 30 [...] sleep apnea. 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 Patient currently has a RespirOngages dream Station, which is on recall. DME: [place] Restless legs: Patient gives history of many [...] results: Polysomnogram from 10-12 years ago in [place]: Not available Data download: Not available Ejection [...] sleep study is completed. Voice recognition software RockYou Direct was used dictate and transcribe this document. Civil Engineer In Training variances may occur. Despite proofreading, typographical errors may occur. Mariaelena Zaidi MD [facility] Sleep Medicine CC: Laura Tapia NP ADDENDUM: Reviewed his data on care barrel roller. On APAP at 10-20 cm of water. [...] hypertension, hyperlipidemia, obesity, anxiety Current medications: reviewed [place] Sleepiness Score: 13 BMI: 35.23 ?? PROCEDURE: This is a single night diagnostic study. This Home Sleep apnea Test (HSAT) utilized an unattended FDA approved RedFinancuba apnea link home air portable monitoring device investigating for obstructive sleep apnea. The patient was proved instruction of the device and application by the registered diagnostic technologist at the [facility]. This test was performed without a diagnostic technologist in attendance. In this study, the following parameters were monitored: Terrell-nasal airflow, snoring, chest respiratory effort, abdominal respiratory effort, body position, movement, oxygen saturation, and heart rate. Respiratory events are scored according to the criteria from The [place] Academy of Sleep Medicine (AASM) Manual for [...] be taken into consideration.? Mariaelena Zaidi MD [facility] Sleep Medicine ?? Narrative Aristeo Oro MD - 06/13/2021 Ocst is ready for review Mariaelena Zaidi MD SLEEP CENTER ORDERABLES Final Re sult * (ABNORMAL) Ferritin (05/17/2021 3:20 PM CDT) Ferritin 441(H) 30 - 400 ng/mL [facility] ([place]) Blood 05/17/2021 3:20 PM CDT 05/17/2021 5:05 PM CDT Mariaelena Zaidi MD LAB BLOOD ORDERABLES Final Resul t [facility] ([place]) 1 [facility] Department of Laboratories [place], [place] [id number] documented in this encounter Visit Diagnoses Diagnosis [...] 05/17/2021 documented in this encounter Care Teams Wood Form Builder Relationship Specialty Start Date End Date Laura Tapia NP PCP - General Family Medicine 09/30/19 10/01/22 documented as of this encounter
--- OUTSIDE RECORDS SUMMARY | 2024-09-17 14:05 | XMS_ITS | Encounter Summary ---
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
--- OUTSIDE RECORDS SUMMARY | 2024-09-17 14:05 | XMS_ITS | Encounter Summary ---
Author Organization [facility] Medical Group Address [address] [place] [address] Care Team Providers Care Leather Staker Name Role Phone Laura Tapia NP Primary Care Provider [phone] Reason for Visit * Reason Onset Date Comments MRI left knee auth 04/07/2021 Encounter Details Date Type Department Care Team (Late st Contact Info) Description 04/07/2021 Telephone [facility] Medical [facility] Orthopedics and Sports Medicine [address] [facility] [address] [place] [phone] Eleni Kitchen MA MRI left knee auth [...] on file 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 She advised I call the medical plan and see who I needed to obtain PA from. TT Madelaine @ [facility], she checked CPT code and diagnosis code. No auth required. REF # [id number] Information updated in system. Called patient and notified him that his is authorized and gave number to TR. * Telephone Encounter - Eleni Kitchen MA - 04/07/2021 8:45 AM CDT TT Karlie Warren @ [facility], she stated Aniyah is having system issues so they are only able to build the case at this time and give out a reference #. She said that a promotional representative will reach back out to me but she was not given a time frame of when this should happen. Case was made for MRI left knee. CASE # [id number] documented in this encounter Plan of Treatment Not on file documented as of this encounter Visit Diagnoses Not on filedocumented in this encounter Care Teams Leather Staker Relationship Specialty Start Date End Date Laura Tapia NP PCP - General Family Medicine 09/30/19 10/01/22 documented as of this encounter
--- OUTSIDE RECORDS SUMMARY | 2024-09-17 14:05 | XMS_ITS | Encounter Summary ---
Author Organization [facility] Address [address] [place] [address] Care Team Providers Care Bin Piler Name Role Phone Laura Tapia NP Primary Care Provider [phone] Reason for Referral * MRI/CAT/PET Scan (Routine) - Closed Specialty Diagnoses / Procedures Referred By Zaida camacho Referred To Contact Radiology Diagnoses Patellofemoral pain syndrome of both knees Acute pain of both knees Tear of lateral meniscus of left knee, unspecified tear type, unspecified whether old or current tear, subsequent encounter Procedures MRI Knee Left WO Contrast Mark Stiles PA Phone: tel: fax: [address] [address] Referral ID Status Reason Start Date Expiration Date Visits Re quested Visits Authorized [id number] Closed 04/06/2021 05/06/2022 1 1 Reason for [...] Contrast Mark Stiles PA Phone: tel: fax: [address] [address] Referral ID Status Reason Start Date Expiration Date Visits Re quested Visits Authorized [id number] Closed 04/06/2021 05/06/2022 1 1 Encounter Details Date Type Department Care Team (Latest Contact Info) Description 04/26/2021 4:48 PM CDT - 04/26/2021 11:59 PM CDT Hospital Encounter [facility] [address] [place] [address] Clem Bedoya MD [address] [place] [address] Mark Stiles PA [address] [facility] [address] [place] [address] Patellofemoral pain syndrome of both knees; Acute [...] on file 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 ?? 2. ??Mbku-hi-hitasbvt left patellofemoral compartment chondrosis, with small full-thickness chondral defect of the lateral left femoral condyle. 3. ??Intact left knee lateral meniscus, cruciate, and collateral ligaments. THIS IS AN ELECTRONICALLY VERIFIED FINAL REPORT 04/27/2021 3:33 AM - Electronically signed by Anoop Ramírez M.D. RT: RT D: ??04/27/2021 3:33 AM T: ??04/27/2021 3:33 AM Report ID: [id number] Reading Location: ??[id number] Procedure Note Anoop Ramírez MD - 04/27/2021 [...] the posterior horn left medial meniscus. 2. Ubqe-tp-nomzeapd left patellofemoral compartment chondrosis, withsmall full-thickness chondral defect of the lateral left femoral condyle. 3. Intact left knee lateral meniscus, cruciate, and collateral ligaments. THIS IS AN ELECTRONICALLY VERIFIED FINAL REPORT 04/27/2021 3:33 AM - Electronically signed by Anoop Ramírez M.D. RT: RT Report ID: [id number] Reading Location: [place] [address] Mark [facility] IMG MRI PROCEDURES Edit ed Result - Final documented in this encounter Visit Diagnoses Diagnosis Patellofemoral pain syndrome of both knees Acute pain of both knees Tear of lateral meniscus of left knee, unspecified tear type, unspecified whether old or current tear, subsequent encounter documented in this encounter Care Teams Bin Piler Relationship Specialty Start Date End Date Laura Tapia NP PCP - General Family Medicine 09/30/19 10/01/22 documented as of this encounter
--- OUTSIDE RECORDS SUMMARY | 2024-09-17 14:06 | XMS_ITS | Encounter Summary ---
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
--- OUTSIDE RECORDS SUMMARY | 2024-09-17 14:06 | XMS_ITS | Encounter Summary ---
Author Organization [facility] Address [address] [place] [address] Care Team Providers Care Epic Beacon Analyst Name Role Phone Laura Hernandez NP Primary Care Provider [phone] Reason for Referral * Diagnostic Imaging (Routine) - Closed Specialty Diagnoses / Procedures Referred By Zaida camacho Referred To Contact Radiology Diagnoses Benign ganglioneuroma of abdomen Generalized abdominal pain Procedures CT Abdomen Pelvis W Contrast Laura Hernandez NP Phone: tel: fax: [address] [address] Referral ID Status Reason Start Date Expiration Date Visits Re quested Visits Authorized [id number] Closed 04/28/2020 05/28/2021 1 1 Reason for Visit * Diagnostic Imaging (Routine) - Closed Specialty Diagnoses / Procedures Referred By Zaida camacho Referred To Contact Radiology Diagnoses Benign ganglioneuroma of abdomen Generalized abdominal pain Procedures CT Abdomen Pelvis W Contrast Laura Hernandez NP Phone: tel: fax: [address] [address] Referral ID Status Reason Start Date Expiration Date Visits Re quested Visits Authorized [id number] Closed 04/28/2020 05/28/2021 1 1 Encounter Details Date Type Department Care Team (Late st Contact Info) Description 05/18/2020 2:51 PM CDT - 05/18/2020 11:59 PM CDT Hospital Encounter [facility] [address] [place] [address] Ivan Holland MD [address] [place] [address] Laura Hernandez NP [address] [place] [address] Benign ganglioneuroma of abdomen; Generalized abdominal pain [...] file 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 Ordering Phys: LAURA HERNANDEZ Age: 49 ?Date of : 1970 ? Accession Number: [id number] Date of Service: 05/18/2020 ??Gender: M EXAM [...] Procedure Note Augustine Hargrove MD - 05/19/2020 [facility] Imaging Result Name: THOMAS CLEMENT Ordering Phys: LAURA HERNANDEZ Age: 49 Date of : 1970 Accession Number: [id number] Date of Service: 05/18/2020 Gender: M EXAM [...] Augustine Hargrove M.D. NC: CASE Report ID: [id number] Reading Location: [id number] Laura Hernandez NP IMG CT PROCEDURES Final Res ult * (ABNORMAL) Creatinine, whole blood (05/18/2020 3:00 PM CDT) Creatinine, bld 1.32(H) 0.60 - 1.30 mg/dL [facility] ([place]) Blood specimen (specimen) 05/18/2020 3:00 PM CDT 05/18/2020 3:00 PM CDT Laura Hernandez NP LAB BLOOD ORDERABLES Final Result [facility] ([place]) [address] [facility] Department [place] [address] documented in this encounter Visit Diagnoses Diagnosis [...] mL documented in this encounter Care Teams Epic Beacon Analyst Relationship Specialty Start Date End Date Laura Hernandez NP PCP - General Family Medicine 09/30/19 10/01/22 documented as of this encounter
--- OUTSIDE RECORDS SUMMARY | 2024-09-17 14:06 | XMS_ITS | Encounter Summary ---
Author Organization [facility] Healthcare Address [address] [place] [address] Care Team Providers Care Mill Feeder Name Role Phone Laura Tapia NP Primary Care Provider [phone] Reason for Referral * Diagnostic Imaging (Routine) - Closed Specialty Diagnoses / Procedures Referred By Zaida camacho Referred To Contact Diagnoses Right foot pain Procedures XR Foot Right 3+ Vw Laura Tapia NP Phone: tel: fax: [address] [phone] Referral ID Status Reason Start Date Expiration Date Visits Re quested Visits Authorized [id number] Closed 01/11/2020 07/22/2021 1 1 Reason for Visit * Diagnostic Imaging (Routine) - Closed Specialty Diagnoses / Procedures Referred By Zaida camacho Referred To Contact Diagnoses Right foot pain Procedures XR Foot Right 3+ Vw Laura Tapia NP Phone: tel: fax: [address] [phone] Referral ID Status Reason Start Date Expiration Date Visits Re quested Visits Authorized [id number] Closed 01/11/2020 07/22/2021 1 1 Encounter Details Date Type Department Care Team (Late st Contact Info) Description 01/11/2020 3:45 PM CDT - 01/11/2020 11:59 PM CDT Hospital Encounter [facility] [address] [place] [address] Brandon Aguayo MD [address] [place] [address] Laura Tapia NP [address] [facility] [address] Right foot pain Discharge Disposition: Discharge to [...] on file 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
--- OUTSIDE RECORDS SUMMARY | 2024-09-17 14:06 | XMS_ITS | Encounter Summary ---
Author Organization 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
--- OUTSIDE RECORDS SUMMARY | 2024-09-17 14:06 | XMS_ITS | Encounter Summary ---
Author Organization [facility] Address [address] [place] [address] Care Team Providers Care Evening Sitter Name Role Phone Laura Tapia NP Primary Care Provider [phone] Reason for Referral * Diagnostic Imaging (Routine) - Closed Specialty Diagnoses / Procedures Referred By Zaida camacho Referred To Contact Diagnoses Right foot pain Procedures XR Foot Right 3+ Vw Laura Tapia NP Phone: tel: fax: [address] [phone] Referral ID Status Reason Start Date Expiration Date Visits Re quested Visits Authorized [id number] Closed 01/11/2020 07/22/2021 1 1 Encounter Details Date Type Department Care Team (Late st Contact Info) Description 01/11/2020 Orders Only [facility] [address] [place] [phone] Laura Tapia NP [address] [place] [address] Right foot pain (Primary Dx) Social History [...] on file 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
--- OUTSIDE RECORDS SUMMARY | 2024-09-17 14:06 | XMS_ITS | Encounter Summary ---
Author Organization 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
--- OUTSIDE RECORDS SUMMARY | 2024-09-17 14:06 | XMS_ITS | Encounter Summary ---
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 60 - 89 mL/min/1.73m2 Mildly to moderately decreased ?45 - 59 mL/min/1.73m2 Moderately to severely decreased ??30 - 44 mL/min/1.73m2 Severely decreased ?15 - 29 mL/min/1.73m2 Kidney Failure ?< 15 ??mL/min/1.73m2 *Relative to young adult level If -Syrian multiply value by 1.16. Estimated glomerular filtration [...] BLOOD ORDERABLES Final Result [facility] [place]) 1 [facility] [place] [address] * Urine culture Urine, clean voided (05/02/2020 10:27 AM CDT) Report Final Report: Less than 100,000 colonies/mL (clinically insignificant growth based on current clinical standards) [facility] ([place]) Comment:Testing performed by : [facility], 1 [facility], [place]., [address] Organism (CLINICALLY INSIGNIFICANT GROWTH [facility] ([place]) Urine, clean voided 05/02/2020 10:27 AM CDT 05/02/2020 5:22 PM CDT Narrative [facility] ([place]) - 05/03/2020 7:29 PM CDT Urine culture reflexed based upon urinalysis results. Testing performed by [facility] Microbiology Laboratory ([phone]) Laura Tapia NAPPER RUNNER LAB MICROBIOLOGY - GENERAL ORDERABLES Final Result Performing Organization Address [facility]/ZIP Co de Phone Number [facility] ([place]) 1 [facility] Department [place] [address] * (ABNORMAL) Urinalysis, microscopic only (05/02/2020 10:27 AM CDT) WBC, ur 11-20(A) 0 - 5 /HPF [facility] ([place]) RBC, ur 3-5(A) 0 - 2 /HPF [facility] ([place]) Mucous, ur Present(A) [facility] ([place]) Hyaline casts, ur 1-5 0 - 10 /LPF [facility] ([place]) Culture Reflex Comment Reflex to urine culture will be performed. [facility] ([place]) Urine, clean voided 05/02/2020 10:27 AM CDT 05/02/2020 1:16 PM CDT Laura Tapia NAPPER RUNNER LAB URINE ORDERABLES Final Result Performing Organization Address [facility] Co de Phone Number [facility] ([place]) 1 [facility] [place] [address] * Differential, auto (05/02/2020 10:27 AM CDT) [...] CDT 05/02/2020 1:15 PM CDT Laura Tapia NAPPER RUNNER LAB BLOOD ORDERABLES Final Result [facility] ([place]) 1 [facility] Department of Laboratories [place], [place] [address] * Vitamin D 25 hydroxy (05/02/2020 10:27 AM CDT) Vitamin D 25-OH 49 30 - 80 ng/mL [facility] ([place]) Blood specimen (specimen) 05/02/2020 10:27 AM CDT 05/02/2020 1:15 PM CDT Laura Tapia NAPPER RUNNER LAB BLOOD ORDERABLES Final Result Performing Organization Address City/[facility]/ZIP Co de Phone Number [facility] ([place]) 1 [facility] [place] [address] * TSH (05/02/2020 10:27 AM CDT) Thyroid Stimulating Hormone 2.99 0.30 - 4.20 mcIUnit/mL [facility] ([place]) Blood specimen (specimen) 05/02/2020 10:27 AM CDT 05/02/2020 1:15 PM CDT [facility] BLOOD ORDERABLES Final Result Performing Organization Address [facility] de Phone Number [facility] ([place]) 1 [facility] [place] [address] * (ABNORMAL) Lipid panel (05/02/2020 10:27 AM [...] Final Result [facility] ([place]) 1 [facility] Department [place] [address] * Comprehensive metabolic panel (05/02/2020 10:27 AM [...] CDT 05/02/2020 1:15 PM CDT Laura Tapia NAPPER RUNNER LAB BLOOD ORDERABLES Final Result [facility] ([place]) 1 [facility] Department [place] [address] * CBC with auto differential [...] BLOOD ORDERABLES Final Result Performing Organization Address [facility] de Phone Number [facility] ([place]) 1 [facility] Department [place] [address] * Hemoglobin A1c (05/02/2020 10:27 AM CDT) [facility] Signature Hgb A1C 5.2 4.0 - 5.6 % [facility] ([place]) Estimated Average Glucose 103 mg/dL [facility] ([place]) Comment: The ADA recommends reporting an estimated Average Glucose (eAG) with all Hemoglobin A1c results using the equation derived from a study of 507 normal and diabetic adults. ??Minority populations were underrepresented and children were not included. ?? (Diabetes Care 31:5565-1914, 2008). ??The eAG is not equivalent to a fasting glucose. Blood specimen (specimen) 05/02/2020 10:27 AM CDT 05/02/2020 1:15 PM CDT Laura Tapia NP LAB BLOOD ORDERABLES Final Result Performing Organization Address [facility] Co de Phone Number [facility] ([place]) 1 [facility] Department [place] [address] * (ABNORMAL) Urinalysis reflex to microscopic and [...] tendency for uric acid stone formation. Source: [employer]. Last revised 09-19-2017 us Laura Tapia NP LAB MICROBIOLOGY - GENERAL ORDERABLES Final Result [facility] ([place]) 1 [facility] Department [place] [address] documented in this encounter Visit Diagnoses Diagnosis Nocturia Class 1 obesity due to excess calories without serious comorbidity with body mass index (BMI) of 34.0 to 34.9 in adult Essential hypertension Unspecified essential hypertension Mixed hyperlipidemia Myalgia Unspecified myalgia and myositis documented in this encounter Care Teams Wheel Roller Relationship Specialty Start Date End Date Laura Tapia NP PCP - General Family Medicine 09/30/19 10/01/22 documented as of this encounter
--- OUTSIDE RECORDS SUMMARY | 2024-09-17 14:06 | XMS_ITS | Encounter Summary ---
Author Organization [facility] Address [address] [facility] [address] [place] [address] Phone Care Team Providers Care Conciliation Court Judge Name Role Phone Marcela Euceda COLLEGE AND CAREER COUNSELOR Primary Care Provider [phone] Jada Phillips COLLEGE AND CAREER COUNSELOR Unavailable Reason for Visit * Surgical (Routine) - Closed Specialty Diagnoses / Procedures Referred By Contact Referred To Contact General Surgery / Hepatobiliary Surgery Diagnoses Benign ganglioneuroma of abdomen Epigastric pain Marcela Euceda NP Phone: tel:[phone] fax:[phone] Payam Yancey MD Phone: tel:[phone] fax:[phone] Referral ID Status Reason Start Date Expiration Date V isits Requested Visits Authorized [id number] Closed Specialty Services Required 06/15/2019 12/24/2020 1 1 Encounter Details Date Type Department Care Team (Latest Contact Info) Description 06/25/2019 1:00 PM CDT Office Visit [facility] Surgery [address] [facility] [address] [place] [id number] Payam Yancey MD [address] MSC: [phone] [place] [address] Benign ganglioneuroma of abdomen (Primary Dx); Anxiety [...] on file 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
--- OUTSIDE RECORDS SUMMARY | 2024-09-17 14:06 | XMS_ITS | Encounter Summary ---
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 Gender Identity Not on file Sexual Orientation Not on file documented as of this encounter Discharge Disposition Disposition Code Departure Means Destination Discharge to home or self care documented in this encounter Plan of Treatment Not on file documented as of this encounter Procedures Procedure Name Priority Date/Time Associated Diagnosis Comments EGFR Routine 09/30/2019 4:57 PM CANDY MIXER Essential hypertension Mixed hyperlipidemia DIFFERENTIAL AUTO Routine 09/30/2019 4:5 7 PM CANDY MIXER Essential hypertension Mixed hyperlipidemia CBC WITH AUTO DIFFERENTIAL Routine 09/30/2019 4:57 PM CANDY MIXER Essential hypertension Mixed hyperlipidemia TSH Routine 09/30/2019 4:57 PM CANDY MIXER Essential hypertension Mixed hyperlipidemia LIPID PANEL Routine 09/30/2019 4:57 PM CANDY MIXER Essential hypertension Mixed hyperlipidemia COMPREHENSIVE METABOLIC PANEL Routine 09/30/2019 4:57 PM CANDY MIXER Essential hypertension Mixed hyperlipidemia documented in this encounter Results * eGFR (09/30/2019 4:57 PM CANDY MIXER) eGFR 81 mL/min/1.7 3 m2 [facility] ([place]) Comment: Interpretive Data Reference Interval Normal ?>/= 90 mL/min/1.73m2 Mildly decreased* ? 60 - 89 mL/min/1.73m2 Mildly to moderately decreased ?45 - 59 mL/min/1.73m2 Moderately to severely decreased ??30 - 44 mL/min/1.73m2 Severely decreased ?15 - 29 mL/min/1.73m2 Kidney Failure ?< 15 ??mL/min/1.73m2 *Relative to young adult level If -Barbadian multiply value by 1.16. Estimated glomerular filtration [...] 2016. Blood specimen (specimen) 09/30/2019 4:57 PM CANDY MIXER 09/30/2019 5:20 PM CANDY MIXER us Laura Regina CORPORATE COMPLIANCE DIRECTOR LAB BLOOD ORDERABLES Final Result [facility] ([place]) 1 [facility] Department [place] [address] * Differential, auto (09/30/2019 4:57 PM CANDY MIXER) Neutrophil abs 3.9 1.7 - 6.5 K/cumm [...] 2017. Blood specimen (specimen) 09/30/2019 4:57 PM CANDY MIXER 09/30/2019 5:19 PM CANDY MIXER Laura Regina CORPORATE COMPLIANCE DIRECTOR LAB BLOOD ORDERABLES Final Result Performing Organization Address City/[facility]/ZIP Co de Phone Number [facility] ([place]) 1 [facility] [place] [address] * TSH (09/30/2019 4:57 PM CANDY MIXER) Thyroid Stimulating Hormone 2.49 0.30 - 4.20 mcIUnit/mL [facility] ([place]) Blood specimen (specimen) 09/30/2019 4:57 PM CANDY MIXER 09/30/2019 5:20 PM CANDY MIXER Laura Tapia CORPORATE COMPLIANCE DIRECTOR LAB BLOOD ORDERABLES Final Result Performing Organization Address City/[facility] Co de Phone Number [facility] ([place]) 1 [facility] [place] [address] * (ABNORMAL) Lipid panel (09/30/2019 4:57 PM CANDY MIXER) Cholesterol 163 30 - 199 mg/dL B[facility]LEY [...] ([place]) Blood specimen (specimen) 09/30/2019 4:57 PM CANDY MIXER 09/30/2019 5:20 PM CANDY MIXER us Laura Tapia NP LAB BLOOD ORDERABLES Final Result [facility] ([place]) 1 [facility] Department [place] [address] * (ABNORMAL) Comprehensive metabolic panel (09/30/2019 4:57 PM CANDY MIXER) Sodium 137 135 - 145 mmol/L [facility]ER [...] pecimen Blood specimen (specimen) 09/30/2019 4:57 PM CANDY MIXER 09/30/2019 5:20 PM CANDY MIXER Laura Tapia CORPORATE COMPLIANCE DIRECTOR LAB BLOOD ORDERABLES Final Result [facility] ([place]) 1 [facility] [place] [address] * CBC with auto differential (09/30/2019 4:57 PM CANDY MIXER) WBC 5.9 3.8 - 9.9 K/cumm C[facility]ER [...] ([place]) Blood specimen (specimen) 09/30/2019 4:57 PM CANDY MIXER 09/30/2019 5:19 PM CANDY MIXER Laura Tapia CORPORATE COMPLIANCE DIRECTOR LAB BLOOD ORDERABLES Final Result [facility] ([place]) 1 [facility] [place] [address] documented in this encounter Visit Diagnoses Diagnosis Essential hypertension Unspecified essential hypertension Mixed hyperlipidemia documented in this encounter Care Teams Counterintelligence Analyst Relationship Specialty Start Date End Date Laura Tapia NP PCP - General Family Medicine 09/30/19 10/01/22 documented as of this encounter
--- OUTSIDE RECORDS SUMMARY | 2024-09-17 14:06 | XMS_ITS | Encounter Summary ---
Author Organization 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
--- OUTSIDE RECORDS SUMMARY | 2024-09-17 14:06 | XMS_ITS | Encounter Summary ---
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
--- OUTSIDE RECORDS SUMMARY | 2024-09-17 14:06 | XMS_ITS | Encounter Summary ---
Author Organization [facility] Medical Group Address [address] [facility] [address] [place] [address] Care Team Providers Care Marketing Services Rep Name Role Phone Laura Hernandez NP Primary Care Provider [phone] Reason for Referral * Diagnostic Imaging (Routine) - Closed Specialty Diagnoses / Procedures Referred By Zaida t Referred To Contact Radiology Diagnoses Benign ganglioneuroma of abdomen Generalized abdominal pain Procedures CT Abdomen Pelvis W Contrast Laura Hernandez NP Phone: tel: fax: [address] [phone] Referral ID Status Reason Start Date Expiration Date Visits Re quested Visits Authorized [id number] Closed 04/28/2020 05/28/2021 1 1 Reason for Visit * Reason Comments Hypertension Hyperlipidemia GERD Anxiety/Depression Diabetes Encounter Details Date Type Department Care Team (Late st Contact Info) Description 04/28/2020 4:00 PM CDT Office Visit [facility] [address] [place] [phone] Laura Hernandez NP [address] [place] [address] Essential hypertension (Primary Dx); Mixed hyperlipidemia; Obstructive [...] on file 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 Physical Exam Exam conducted with a stone layer present (Keke Vidales MA). Constitutional: General: He [...] in much longer they will become mushy Rufe and/or coconut flour instead of regular flour [...] xl 25mg daily, lisinopril 5mg daily and [id number] daily documented in this encounter Plan of [...] AM T: ??05/19/2020 9:33 AM Report ID: [id number] Reading Location: ??[id number] Narrative 05/19/2020 9:36 AM CDT [facility] ?Imaging Result Name: THOMAS CLEMENT ? Ordering Phys: LAURA HERNANDEZ Age: 49 ?Date of : 1970 ? Accession Number: [id number] Date of Service: 05/18/2020 ??Gender: M EXAM [...] Procedure Note Augustine Hargrove MD - 05/19/2020 [facility] Imaging Result Name: THOMAS CLEMETN Ordering Phys: LAURA HERNANDEZ Age: 49 Date of : 1970 Accession Number: [id number] Date of Service: 05/18/2020 Gender: M EXAM [...] Augustine Hargrove M.D. NC: CASE Report ID: [id number] Reading Location: [place] [address] Laura Hernandez PIERCING ARTIST IMG CT PROCEDURES Final Res ult * [...] tendency for uric acid stone formation. Source: [facility]. Last revised 09-19-2017 Laura Hernandez PIERCING ARTIST LAB MICROBIOLOGY - GENERAL ORDERABLES Final Result Performing Organization Address [facility] Co de Phone Number [facility]OPK[facility] ([place]) 1 [place] [address] * Vitamin D 25 hydroxy (05/02/2020 10:27 AM CDT) Vitamin D 25-OH 49 30 - 80 ng/mL [facility] ([place]) Blood specimen (specimen) 05/02/2020 10:27 AM CDT 05/02/2020 1:15 PM CDT Laura Hernandez NP LAB BLOOD ORDERABLES Final Result Performing Organization Address [facility] de Phone Number [facility] HOPKINS ([place]) 1 [facility] [place] [address] * TSH (05/02/2020 10:27 AM CDT) Thyroid Stimulating Hormone 2.99 0.30 - 4.20 mcIUnit/mL [facility] ([place]) Blood specimen (specimen) 05/02/2020 10:27 AM CDT 05/02/2020 1:15 PM CDT Laura Hernandez LAB BLOOD ORDERABLES Final Result Performing Organization Address [facility] Co de Phone Number [facility] HOP[facility] ([place]) 1 [facility] [place] [address] * (ABNORMAL) Lipid panel (05/02/2020 10:27 AM [...] CDT 05/02/2020 1:15 PM CDT Laura Regina PIERCING ARTIST LAB BLOOD ORDERABLES Final Result [facility] ([place]) 1 [facility] Department [place] [address] * Comprehensive metabolic panel (05/02/2020 10:27 AM [...] 05/02/2020 1:15 PM CDT us Laura Hernandez PIERCING ARTIST LAB BLOOD ORDERABLES Final Result [facility] ([place]) 1 [facility] [place] [address] * CBC with auto differential (05/02/2020 10:27 [...] Final Result [facility] ([place]) 1 [facility] [place] [address] * Hemoglobin A1c (05/02/2020 10:27 AM CDT) [...] children were not included. ?? (Diabetes Care 31:7670-8594, 2008). ??The eAG is not equivalent to a fasting glucose. Blood specimen (specimen) 05/02/2020 10:27 AM CDT 05/02/2020 1:15 PM CDT Laura Hernandez NP LAB BLOOD ORDERABLES Final Result [facility] ([place]) 1 [facility] Department [place] [address] documented in this encounter Visit Diagnoses Diagnosis [...] documented as of this encounter Care Teams Marketing Services Rep Relationship Specialty Start Date End Date Laura Hernandez NP PCP - General Family Medicine 09/30/19 10/01/22 documented as of this encounter
--- OUTSIDE RECORDS SUMMARY | 2024-09-17 14:06 | XMS_ITS | Encounter Summary ---
Author Organization [facility] Medical Group Address [address] [place] [address] Care Team Providers Care Semiconductor Wafers Etch Operator Name Role Phone Marcela Euceda NP Primary Care Provider [phone] Jada Phillips NP Unavailable Reason for Referral * Surgical (Routine) - Closed Specialty Diagnoses / Procedures Referred By Contact Referred To Contact General Surgery / Hepatobiliary Surgery Diagnoses Benign ganglioneuroma of abdomen Epigastric pain Marcela Euceda NP Phone: tel: fax:[phone] Payam Yancey MD Phone: tel:[phone] fax:[phone] Referral ID Status Reason Start Date Expiration Date V isits Requested Visits Authorized [id number] Closed Specialty Services Required 06/15/2019 12/24/2020 1 1 Question Answer Please select the performing region: [facility] (All Locations) [[id number]] Comments Dr. 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 Gender Identity Not on file Sexual [...] this encounter Progress Notes * Marcela Euceda, PET TRAINING INSTRUCTOR - 06/15/2019 3:00 PM CDT Subjective/Objective Patient [...] Large Ketones, ur, POC Negative Negative Specific [place], POC 1.020 1.005 - 1.030 Blood, ur, [...] kidney documented in this encounter Care Teams Semiconductor Wafers Etch Operator Relationship Specialty Start Date End Date Marcela Euceda NP [address] [facility] [address] [place] [address] PCP - General Family Medicine 11/26/18 09/29/19 Jada Phillips NP [address] [place] [address] Nurse Practitioner Family Medicine 01/19/19 09/29/19 documented as of this encounter
--- OUTSIDE RECORDS SUMMARY | 2024-09-17 14:06 | XMS_ITS | Encounter Summary ---
Author Organization [facility] Medical Group Address [address] [place] [address] Care Team Providers Care Microcomputer Support Specialist Name Role Phone Laura Tapia NP Primary Care Provider [phone] Reason for Visit * Reason Comments burning sensation in left leg off and on 4-5 days Encounter Details Date Type Department Care Team (Late st Contact Info) Description 12/07/2019 3:30 PM CDT Telemedicine [facility] [address] [place] [phone] Jada Phillips NP [address] [place] [address] Numbness and tingling of lower [...] on file 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 12/07/2019 This was a telemedicine visit with Jaden De La Torre which took place via Telephone. During the visit, I was located [place], [place] in my office and the patient was located [place] . The session started at 4:00pm Assessment [...] Primary documented in this encounter Care Teams Microcomputer Support Specialist Relationship Specialty Start Date End Date Laura Tapia NP PCP - General Family Medicine 09/30/19 10/01/22 documented as of this encounter
--- OUTSIDE RECORDS SUMMARY | 2024-09-17 14:06 | XMS_ITS | Encounter Summary ---
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 Gender Identity Not on file Sexual Orientation [...] based on current clinical standards) [facility] Comment:Testing performed by : [facility], [address] [place]., [address] Organism (CLINICALLY INSIGNIFICANT GROWTH [facility] [place] Urine, clean voided 06/15/2019 3:25 PM CDT 06/15/2019 8:05 PM CDT Narrative [facility] ([place]) - 06/17/2019 8:20 AM CDT Testing performed by [facility] Microbiology Laboratory ([phone]) us Marcela Euceda NP LAB MICROBIOLOGY - [facility] Final Result [facility] [address] [place] [address] documented in this encounter Visit Diagnoses Not on filedocumented in this encounter Care Teams Gas Engine Operator Generators Relationship Specialty Start Date End Date Marcela Euceda NP [address] [place] [address] PCP - General Family Medicine 11/26/18 09/29/19 Jada Phillips NP [address] [place], [place] [address] Nurse Practitioner Family Medicine 01/19/19 09/29/19 documented as of this encounter
--- OUTSIDE RECORDS SUMMARY | 2024-09-17 14:06 | XMS_ITS | Encounter Summary ---
Author Organization 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
--- OUTSIDE RECORDS SUMMARY | 2024-09-17 14:06 | XMS_ITS | Encounter Summary ---
Author Organization [facility] Medical Group Address [address] [facility] [address] [place] [address] Care Team Providers Care Tread Tuber Machine Operator Name Role Phone Marcela Euceda NP Primary Care Provider [phone] Jada Phillips PODIATRIC MEDICINE DOCTOR Unavailable Encounter Details Date Type Department Care Team (Late st Contact Info) Description 09/29/2019 Orders Only [facility] [address] [place] [address] Jada Phillips, ALAN [address] [facility] [address] [place] [address] Social History Tobacco Use Types [...] on file 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
--- OUTSIDE RECORDS SUMMARY | 2024-09-17 14:06 | XMS_ITS | Encounter Summary ---
Author Organization [facility] Medical Group Address [address] [facility] [address] [place] [address] Care Team Providers Care Filament Maker Name Role Phone Marcela Euceda MARKETING PRODUCTION MANAGER Primary Care Provider [phone] Jada Phillips MARKETING PRODUCTION MANAGER Unavailable Reason for Visit * Reason Comments nurse visit 1st shingrix Encounter Details Date Type Department Care Team (Latest Contact Info) Description 08/19/2019 3:15 PM WELLNESS COORDINATOR Clinical Support [facility] of [address] [place] [phone] Need for shingles vaccine (Primary Dx) Social [...] on file 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 [address] [place] [address] PCP - General Family Medicine 11/26/18 09/29/19 Jada Phillips NP [address] [place] [address] Nurse Practitioner Family Medicine 01/19/19 09/29/19 documented as of this encounter
--- OUTSIDE RECORDS SUMMARY | 2024-09-17 14:06 | XMS_ITS | Encounter Summary ---
Author Organization [facility] Address [address] [place] [address] Phone Care Team Providers Care Public Health Clinical Nurse Specialist Name Role Phone Marcela Euceda CLOTH MERCERIZER BACK TENDER Primary Care Provider [phone] Jada Phillips CLOTH MERCERIZER BACK TENDER Unavailable Encounter Details Date Type Department Care Team (Late st Contact Info) Description 06/16/2019 Documentation [facility] Surgery [address] [facility] [address] [place] [phone] Ayah Mcallister RMA Social History Tobacco Use [...] file 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 Gender Identity Not on file Sexual Orientation Not on file documented as of this encounter Progress Notes * Ayah Mcallister RMA - 06/16/2019 2:11 PM CDT Called pt and lmvom to call office to schedule appt documented in this encounter Plan of Treatment Not on file documented as of this encounter Visit Diagnoses Not on filedocumented in this encounter Care Teams Public Health Clinical Nurse Specialist Relationship Specialty Start Date End Date Marcela Euceda NP [address] [place] [address] PCP - General Family Medicine 11/26/18 09/29/19 Jada Phillips NP [address] [place] [address] Nurse Practitioner Family Medicine 01/19/19 09/29/19 documented as of this encounter
--- OUTSIDE RECORDS SUMMARY | 2024-09-17 14:06 | XMS_ITS | Encounter Summary ---
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
--- OUTSIDE RECORDS SUMMARY | 2024-09-17 14:06 | XMS_ITS | Encounter Summary ---
Author Organization [facility] Medical Group Address [address] [facility] [address] [place] [address] Care Team Providers Care Sequins Spooler Name Role Phone Laura Tapia NP Primary Care Provider [phone] Reason for Visit * Reason Comments Hypertension Restless Legs Anxiety/Depression Encounter Details Date Type Department Care Team (Late st Contact Info) Description 09/30/2019 4:00 PM POISING INSPECTOR Office Visit [facility] of [address] [place] [address] Laura Tapia NP [address] [place] [address] Essential hypertension (Primary Dx); Mixed hyperlipidemia; Laryngopharyngeal [...] on file Legal Sex Male 8:02 AM POISING INSPECTOR Gender Identity Not on file Sexual Orientation Not on file documented as of this encounter Last Filed Vital Signs Vital Sign Reading Time Taken Comments Blood Pressure 126/76 09/30/2019 3:56 PM POISING INSPECTOR Pulse 79 09/30/2019 3:56 PM POISING INSPECTOR Temperature 36.8 ??C (98.2 ??F) 09/30/2019 3:56 PM CS T Respiratory Rate 10 09/30/2019 3:56 PM POISING INSPECTOR Oxygen Saturation 97% 09/30/2019 3:56 PM POISING INSPECTOR Inhaled Oxygen Concentration - - Weight 123.1 kg (271 lb 4.8 oz) 09/30/2019 3:56 PM POISING INSPECTOR Height 188 cm (6' 2 ) 09/30/2019 3:56 PM POISING INSPECTOR Body Mass Index 34.83 09/30/2019 3:56 PM POISING INSPECTOR documented in this encounter Patient Instructions * Patient Instructions* Laura Barrios NP - 09/30/2019 4:00 PM POISING INSPECTOR Diagnoses and all orders for this visit: [...] irritation or rash Follow up 6 months ING INSPECTOR documented in this encounter Ordered Prescriptions Prescription [...] irritation or rash Follow up 6 months ING INSPECTOR documented in this encounter Miscellaneous Notes * Assessment & Plan Note - Laura Barrios NP - 09/30/2019 4:21 PM CSTAssociated Problem(s): Class 2 obesity due to excess calories without serious comorbidity with bodymass index (BMI) of 36.0 to 36.9 in adult (Resolved 11/12/2022) Healthy, low carbohydrate lifestyle and exercise for 150min/week recommended ING INSPECTOR * Assessment & Plan Note - Laura [...] a counselor Watch youtube for biofeedback tips ING INSPECTOR * Assessment & Plan Note - Laura Barrios NP - 09/30/2019 4:16 PM CSTAssociated Problem(s): Insomnia Pt states using cpap for 8 hours/night 7 nights/wk Pt states less daytime somnolence, feels better when using it. Would recommend the continued use of cpap ING INSPECTOR * Assessment & Plan Note - Laura Barrios NP - 09/30/2019 4:15 PM CSTAssociated Problem(s): Obstructive sleep apnea syndrome Pt states using cpap for 8 hours/night 7 nights/wk Pt states less daytime somnolence, feels better when using it. Would recommend the continued use of cpap ING INSPECTOR * Assessment & Plan Note - Laura Barrios NP - 09/30/2019 4:12 PM CSTAssociated Problem(s): Generalized abdominal pain (Resolved 10/18/2021) He had CT scan last March which showed kidney stones ING INSPECTOR * Assessment & Plan Note - Laura [...] hours before bed. Sleep with bed propped. ING INSPECTOR * Assessment & Plan Note - Laura Barrios NP - 09/30/2019 2:18 PM CSTAssociated Problem(s): Restless legs syndrome Discussed/ordered labs, Condition is stable, encouraged healthy, low carbohydrate lifestyle and at least 150min/week of exercise, continue on mirapex 1.5mg three times daily Make sure you are drinking a lot of water ING INSPECTOR ING INSPECTOR * Assessment & Plan Note - Laura Barrios NP - 09/30/2019 2:17 PM CSTAssociated Problem(s): Laryngopharyngeal reflux (LPR) Discussed/ordered labs, Condition is stable, encouraged healthy, low carbohydrate lifestyle and at least 150min/week of exercise, continue on ranitidine 300mg nightly ING INSPECTOR * Assessment & Plan Note - Laura Barrios NP - 09/30/2019 2:16 PM CSTAssociated Problem(s): Hyperlipidemia Discussed/ordered labs, Condition is stable, encouraged healthy, low carbohydrate lifestyle and at least 150min/week of exercise, continue on pravastatin 40mg daily ING INSPECTOR * Assessment & Plan Note - Laura Barrios NP - 09/30/2019 2:15 PM CSTAssociated Problem(s): Essential hypertension Discussed/ordered labs, Condition is stable, encouraged healthy, low carbohydrate lifestyle and at least 150min/week of exercise, continue on lisinopril 5mg daily, metoprolol 25mg daily and aspirin 81mg ING INSPECTOR documented in this encounter Plan of Treatment Scheduled Orders Name Type Priority Associated Diagnoses Orde r Schedule Stool DNA - Cologuard Lab Routine Screening for colon cancer Expected: 09/30/2019, Expires: 09/30/2020 documented as of this encounter Results * TSH (09/30/2019 4:57 PM POISING INSPECTOR) Thyroid Stimulating Hormone 2.49 0.30 - 4.20 mcIUnit/mL [facility] Blood specimen (specimen) 09/30/2019 4:57 PM POISING INSPECTOR 09/30/2019 5:20 PM POISING INSPECTOR us Laura Tapia CHEMISTRY TECHNICIAN LAB BLOOD ORDERABLES Final Result [facility] [place]) 1 [facility] Department [place] [address] * (ABNORMAL) Lipid panel (09/30/2019 4:57 PM POISING INSPECTOR) Cholesterol 163 30 - 199 mg/dL [facility] [...] ([place]) Blood specimen (specimen) 09/30/2019 4:57 PM POISING INSPECTOR 09/30/2019 5:20 PM POISING INSPECTOR Laura Tapia NP LAB BLOOD ORDERABLES Final Result [facility] ([place] [address] [facility] Department [place] [address] * (ABNORMAL) Comprehensive metabolic panel (09/30/2019 4:57 PM POISING INSPECTOR) Sodium 137 135 - 145 mmol/L [facility] [...] pecimen Blood specimen (specimen) 09/30/2019 4:57 PM POISING INSPECTOR 09/30/2019 5:20 PM POISING INSPECTOR us Laura Tapia NP LAB BLOOD ORDERABLES Final Result [facility] [address] [facility] [place] [address] * CBC with auto differential (09/30/2019 4:57 PM POISING INSPECTOR) WBC 5.9 3.8 - 9.9 K/cumm [facility] [...] ([place]) Blood specimen (specimen) 09/30/2019 4:57 PM POISING INSPECTOR 09/30/2019 5:19 PM POISING INSPECTOR Laura Tapia NP LAB BLOOD ORDERABLES Final Result [facility] [address] [facility] [place] [address] documented in this encounter Visit Diagnoses Diagnosis [...] 09/30/2019 documented in this encounter Care Teams Sequins Spooler Relationship Specialty Start Date End Date Laura Tapia NP PCP - General Family Medicine 09/30/19 10/01/22 documented as of this encounter
--- OUTSIDE RECORDS SUMMARY | 2024-09-17 14:06 | XMS_ITS | Encounter Summary ---
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
--- OUTSIDE RECORDS SUMMARY | 2024-09-17 14:06 | XMS_ITS | Encounter Summary ---
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
--- OUTSIDE RECORDS SUMMARY | 2024-09-17 14:07 | XMS_ITS | Encounter Summary ---
Author Organization [facility] Address [address] [place] [address] Phone Care Team Providers Care Dobby Loom Weaver Name Role Phone Marcela Euceda NP Primary Care Provider [phone] Jada Phillips NP Unavailable Reason for Visit * Consultation (Routine) - Closed Specialty Diagnoses / Procedures Referred By Contact Referred To Contact Hepatobiliary Surgery Diagnoses Retroperitoneal lymphadenopathy Jada Phillips NP Phone: tel:[phone] fax:[phone] [facility] (All Locations) Referral ID Status Reason Start Date Expiration Date V isits Requested Visits Authorized [id number] Closed Specialty Services Required 01/08/2019 07/19/2020 1 Encounter Details Date Type Department Care Team (Latest Contact Info) Description 01/19/2019 1:00 PM CDT Office Visit [facility] Surgery [address] [facility] 8th [place] [address] [place] [address] Payam Yancey MD [address] MSC: [id number] [place] [address] Lymphadenopathy (Primary Dx) Social History Tobacco Use [...] on file 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 male who was seen by [facility] cardiothoracic surgery department this morning for [...] 48 y.o. male who was seen by [facility] cardiothoracic surgery department this morning after [...] . 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 ?? FAMILY HISTORY: Father- Throat cancer Mother- [...] nodes documented in this encounter Care Teams Dobby Loom Weaver Relationship Specialty Start Date End Date Marcela Euceda NP [address] [place] [address] PCP - General Family Medicine 11/26/18 09/29/19 Jada Phillips NP [address] [facility] [address] [place] [address] Nurse Practitioner Family Medicine 01/19/19 09/29/19 documented as of this encounter
--- OUTSIDE RECORDS SUMMARY | 2024-09-17 14:07 | XMS_ITS | Encounter Summary ---
Author Organization [facility] Medical Group Address [address] [facility] [address] [place] [address] Care Team Providers Care Operations Research Manager Name Role Phone Marcela Euceda NP Primary Care Provider [phone] Reason for Visit * Reason Onset Date Comments Med Refill 01/01/2019 Encounter Details Date Type Department Care Team (Late st Contact Info) Description 01/01/2019 Telephone [facility] of [address] [place] [address] Marcela Euceda NP [address] [facility] [facility] [address] [place] [address] Med Refill Social History Tobacco Use Types [...] on file 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
--- OUTSIDE RECORDS SUMMARY | 2024-09-17 14:07 | XMS_ITS | Encounter Summary ---
Author Organization [facility] Healthcare Address [address] [place] [address] Care Team Providers Care Ferry Terminal Agent Name Role Phone Marcela Euceda RISK MANAGEMENT CONSULTANT Primary Care Provider [phone] Jada Phillips RISK MANAGEMENT CONSULTANT Unavailable Reason for Referral * Diagnostic Imaging (Routine) - Closed Specialty Diagnoses / Procedures Referred By Zaida camacho Referred To Contact Radiology Diagnoses Retroperitoneal lymphadenopathy Procedures CT Abdomen Pelvis W Contrast CT abdomen pelvis with and without contrast Payam Yancey MD Phone: tel: fax: [address] [phone] Referral ID Status Reason Start Date Expiration Date Visits Re quested Visits Authorized [id number] Closed 01/26/2019 08/06/2020 1 1 Reason for Visit * Diagnostic Imaging (Routine) - Closed Specialty Diagnoses / Procedures Referred By Zaida camacho Referred To Contact Radiology Diagnoses Retroperitoneal lymphadenopathy Procedures CT Abdomen Pelvis W Contrast CT abdomen pelvis with and without contrast Payam Yancey MD Phone: tel: fax: [address] [phone] Referral ID Status Reason Start Date Expiration Date Visits Re quested Visits Authorized [id number] Closed 01/26/2019 08/06/2020 1 1 Encounter Details Date Type Department Care Team (Latest Contact Info) Description 01/30/2019 3:30 PM CDT - 01/30/2019 11:59 PM CDT Hospital Encounter [facility] [place] [address] Payam Yancey MD [address] MSC: [id number] [place] [address] Retroperitoneal lymphadenopathy Discharge Disposition: Discharge to home [...] on file 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
--- OUTSIDE RECORDS SUMMARY | 2024-09-17 14:07 | XMS_ITS | Encounter Summary ---
Author Organization [facility] Medical Group Address [address] [facility] [address] [place] [address] Care Team Providers Care Demolition Engineer Name Role Phone Marcela Euceda NP Primary Care Provider [phone] Encounter Details Date Type Department Care Team (Late st Contact Info) Description 01/05/2019 Orders Only [facility] of [address] [place] [address] Treva Stanley MD [address] [facility] [address] [place] [address] Social History Tobacco Use Types Packs/Day Years Used Date Smoking Tobacco: Never Smokeless Tobacco: Former Chew Quit: 08/2018 Comments:chews, not interest ed in counseling Alcohol Use Standard Drinks/Week Comments Yes 0 (1 standard drink = 0.6 oz pur e alcohol) can of beer a month Sex and Gender Information Value Date Recorded Sex Assigned at Not on file 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
--- OUTSIDE RECORDS SUMMARY | 2024-09-17 14:07 | XMS_ITS | Encounter Summary ---
Author Organization [facility] Address [address] [place] [address] Care Team Providers Care Slurry Plant Operator Name Role Phone Marcela Euceda NP Primary Care Provider [phone] Jada Phillips NP Unavailable Encounter Details Date Type Department Care Team (Late st Contact Info) Description 01/21/2019 Telephone [facility] [address] [place] [address] Marcela Euceda, ALAN [address] [place] [address] Social History Tobacco Use Types Packs/Day Years Used Date Smoking Tobacco: Never Smokeless Tobacco: Former Chew Quit: 08/2018 Comments:chews, not interest ed in counseling Alcohol Use Standard Drinks/Week Comments Yes 0 (1 standard drink = 0.6 oz pur e alcohol) can of beer a month Sex and Gender Information Value Date Recorded Sex Assigned at Not on file 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 Gender Identity Not on file Sexual [...] [facility] Caller's Callback #: [phone] Additional Comments: 90 days supply Medication Refill: Medications:Lisinopril [facility] Additional Comments: 90 days supply Medications: Bupropion HCL XL 150 mg Preferred Pharmacy[facility] Caller's Callback #: [phone] Additional Comments: Mail order needs 90 day [...] documented as of this encounter Care Teams Slurry Plant Operator Relationship Specialty Start Date End Date Marcela Euceda NP [address] [place] [address] PCP - General Family Medicine 11/26/18 09/29/19 Jada Phillips NP [address] [place] [address] Nurse Practitioner Family Medicine 01/19/19 09/29/19 documented as of this encounter
--- OUTSIDE RECORDS SUMMARY | 2024-09-17 14:07 | XMS_ITS | Encounter Summary ---
Author Organization [facility] Address [address] [place] [address] Phone Care Team Providers Care Repairer Shoe Sticks Name Role Phone LupisMarcela ribeiro SKETCHER Primary Care Provider [phone] Jada Phillips SKETCHER Unavailable Encounter Details Date Type Department Care Team (Latest Contact Info) Description 01/19/2019 10:00 AM CDT Office Visit [facility] Surgery [address] [place] [address] Lymphadenopathy (Primary Dx) Social History Tobacco Use [...] on file 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 RESULTS: 1.) Renal CT performed at [facility] dated 01/02/2019- FINDINGS: There is no evidence [...] AND L3-L4. 2.) Abdominal sonography performed at [facility] dated 01/02/2019- COMPARISON: None available. FINDINGS: [...] NP Nurse practitioner for Dr. Eloy Alonzo Photo Booth Operator completed using TrepUp Direct speaking software, therefore, locomotive operator helper variances may occur. * Eloy Valdivia MD - 01/19/2019 10:00 AM CDT [facility] Thoracic Surgery History and Physical 01/19/2019 ALAN [...] documented as of this encounter Care Teams Repairer Shoe Sticks Relationship Specialty Start Date End Date Marcela Euceda NP [address] [place] [address] [address] [place] [address] PCP - General Family Medicine 11/26/18 09/29/19 Jada Phillips NP [address] [place] [address] Nurse Practitioner Family Medicine 01/19/19 09/29/19 documented as of this encounter
--- OUTSIDE RECORDS SUMMARY | 2024-09-17 14:07 | XMS_ITS | Encounter Summary ---
Author Organization [facility] Address [address] [place] [address] Phone Care Team Providers Care Instrument Installer Name Role Phone OkMarcela RELOCATION COMMISSIONER Primary Care Provider [phone] Jada Phillips RELOCATION COMMISSIONER Unavailable Reason for Referral * Diagnostic Imaging (Routine) - Closed Specialty Diagnoses / Procedures Referred By Contac t Referred To Contact Radiology Diagnoses Retroperitoneal lymphadenopathy Procedures CT Abdomen Pelvis W Contrast CT abdomen pelvis with and without contrast Payam Yancey MD Phone: tel: fax: [address] [address] Referral ID Status Reason Start Date Expiration Date Visits Re quested Visits Authorized [id number] Closed 01/26/2019 08/06/2020 1 1 * Diagnostic Imaging (Routine) - Closed Specialty Diagnoses / Procedures Referred By Conttom t Referred To Contact Radiology Diagnoses Retroperitoneal lymphadenopathy Procedures IR Biopsy Abdomen Retroperitoneal Payam Yancey MD Phone: tel: fax: [address] [address] Referral ID Status Reason Start Date Expiration Date Visits Re quested Visits Authorized [id number] Closed 01/26/2019 08/06/2020 1 1 Encounter Details Date Type Department Care Team (Late st Contact Info) Description 01/26/2019 Orders Only [facility] Surgery [address] [facility] [facility] [facility] 8th [place] [address] [place] [address] Payam Yancey MD [address] MSC: [id number] [place] [address] Retroperitoneal lymphadenopathy (Primary Dx) Social History Tobacco [...] file 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 Electronically signed by: aTisha Ennis M.D. Narrative 02/06/2019 3:41 PM CDT [...] was obtained. Prior to beginning the procedure, Columbia Protocol was performed to confirm the patient's [...] was obtained. Prior to beginning the procedure, Columbia Protocol was performed to confirm the patient's [...] Electronically signed by: Taisha Ennis M.D. us Payam Yancey MD IMG IR PROCEDURES Fin [...] nodes documented in this encounter Care Teams Instrument Installer Relationship Specialty Start Date End Date Marcela Euceda NP [address] [place] [address] PCP - General Family Medicine 11/26/18 09/29/19 Jada Phillips NP [address] [place] [address] [id number] Nurse Practitioner Family Medicine 01/19/19 09/29/19 documented as of this encounter
--- OUTSIDE RECORDS SUMMARY | 2024-09-17 14:07 | XMS_ITS | Encounter Summary ---
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 Gender Identity Not on file [...] standards) [facility]) Comment:Testing performed by : [facility], [address] [facility], [place]., [address] Organism (CLINICALLY INSIGNIFICANT GROWTH [facility] (SHAHEED) Urine, clean voided 12/19/2018 4:30 PM CDT 12/19/2018 10:05 PM CDT Narrative [facility] (KENNEDY) - 12/20/2018 3:34 PM CDT Testing performed by [facility] Microbiology Laboratory ([phone]) us Marcela Euceda NP LAB MICROBIOLOGY - GENERAL BRO ANDRADE Final Result [facility] ([place]N[facility]) [address] [facility] Department [place] [address] documented in this encounter Visit Diagnoses Not on filedocumented in this encounter Care Teams Middle School Principal Relationship Specialty Start Date End Date Marcela Euceda NP [address] [place] [address] 200 [place] [address] PCP - General Family Medicine 11/26/18 09/29/19 documented as of this encounter
--- OUTSIDE RECORDS SUMMARY | 2024-09-17 14:07 | XMS_ITS | Encounter Summary ---
Author Organization [facility] Healthcare Address [address] [place] [address] Care Team Providers Care Solutions Architect Name Role Phone Marcela Euceda SCALE TECHNICIAN Primary Care Provider [phone] Jada Phillips SCALE TECHNICIAN Unavailable Encounter Details Date Type Department Care Team (Late st Contact Info) Description 02/04/[address] 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
--- OUTSIDE RECORDS SUMMARY | 2024-09-17 14:07 | XMS_ITS | Encounter Summary ---
Author Organization [facility] Address [address] [place] [address] Care Team Providers Care Cleaner Signs Name Role Phone Marcela Euceda NP Primary Care Provider [phone] Jada Phillips NP Unavailable Reason for Referral * Diagnostic Imaging (Routine) - Closed Specialty Diagnoses / Procedures Referred By Zaida camacho Referred To Contact Radiology Diagnoses Benign ganglioneuroma of abdomen Procedures CT Abdomen WO Contrast Marcela Euceda NP Phone: tel: fax: [facility] 1 [place] [address] Referral ID Status Reason Start Date Expiration Date Visits Re quested Visits Authorized [id number] Closed 03/30/2019 10/08/2020 1 1 Reason for Visit * Reason Comments Anxiety/Depression Hyperlipidemia Hypertension Encounter Details Date Type Department Care Team (Latest Contact Info) Description 03/30/2019 9:00 AM CDT Office Visit [facility] [place] [address] [facility] [address] [place] [address] Marcela Euceda NP [address] 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 ?? Make [...] may report side effects to FDA at 2-298-EZM-9835 ?? 2017 [employer] Information is for End User's use only and may not be sold, redistributed or otherwise used for commercial purposes. The above information is an occupational therapist aide only. It is not intended as [...] this encounter Progress Notes * Marcela Euceda, SALES AND EVENTS COORDINATOR - 03/30/2019 9:00 AM CDT Subjective/Objective Patient ID: Jaden De La Torre is a 48 y.o. male. Chief Complaint Anxiety/Depression; Hyperlipidemia; and Hypertension Mr. De La Torre presents today for a follow up visit. Due to an abnormal abdomina CT with possible lymphoma he was referred to [facility] For evaluation. Thebiopsy yielded a benign [...] and inferior vena cava appear normal. Left qddl-wejwce-iwhcnjqqeck mass measures approximately 5.3 x 2.5 cm [...] and inferior vena cava appear normal. Left utfi-klylts-pccwrkshxjs mass measures approximately 5.3 x 2.5 cm [...] documented as of this encounter Care Teams Cleaner Signs Relationship Specialty Start Date End Date Marcela Euceda NP [address] [place] [address] PCP - General Family Medicine 11/26/18 09/29/19 Jada Phillips NP [address] [place] [address] Nurse Practitioner Family Medicine 01/19/19 09/29/19 documented as of this encounter
--- OUTSIDE RECORDS SUMMARY | 2024-09-17 14:07 | XMS_ITS | Encounter Summary ---
Author Organization [facility] Healthcare Address [address] [place] [address] Care Team Providers Care Decorator Mannequin Name Role Phone Marcela Euceda NP Primary Care Provider [phone] Reason for Referral * Diagnostic Imaging (Routine) - Closed Specialty Diagnoses / Procedures Referred By Zaida camacho Referred To Contact Radiology Diagnoses Right flank pain Procedures CT KUB Stone WO Contrast Marcela Euceda NP Phone: tel: fax: [address] [address] Referral ID Status Reason Start Date Expiration Date Visits Re quested Visits Authorized [id number] Closed 12/18/2018 06/28/2020 1 1 Reason for Visit * Diagnostic Imaging (Routine) - Closed Specialty Diagnoses / Procedures Referred By Zaida camacho Referred To Contact Radiology Diagnoses Right flank pain Procedures CT KUB Stone WO Contrast Marcela Euceda NP Phone: tel: fax: [address] [address] Referral ID Status Reason Start Date Expiration Date Visits Re quested Visits Authorized [id number] Closed 12/18/2018 06/28/2020 1 1 Encounter Details Date Type Department Care Team (Latest Contact Info) Description 01/02/2019 8:10 AM CDT - 01/02/2019 11:59 PM CDT Hospital Encounter [facility] [address] [place] [address] Marcela Euceda NP [address] [facility] 200 [place] [address] Right flank pain Discharge Disposition: Discharge to [...] on file 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
--- OUTSIDE RECORDS SUMMARY | 2024-09-17 14:07 | XMS_ITS | Encounter Summary ---
Author Organization [facility] Address [address] [facility] [place] [address] Care Team Providers Care Grade And Center Marker Name Role Phone Marcela Euceda NP Primary Care Provider [phone] Jada Phillips NP Unavailable Encounter Details Date Type Department Care Team (Late st Contact Info) Description 04/07/2019 Telephone [facility] [address] [place] [address] Marcela Euceda, ALAN [address] [facility] [address] [place] [address] Social History Tobacco Use Types Packs/Day Years Used Date Smoking Tobacco: Never Smokeless Tobacco: Former Chew Quit: 08/2018 Comments:chews, not interest ed in counseling Alcohol Use Standard Drinks/Week Comments Yes 0 (1 standard drink = 0.6 oz pur e alcohol) can of beer a month Sex and Gender Information Value Date Recorded Sex Assigned at Not on file 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
--- OUTSIDE RECORDS SUMMARY | 2024-09-17 14:07 | XMS_ITS | Encounter Summary ---
Author Organization [facility] Care Team Providers Care Senior Financial Reporting Analyst Name Role Phone Marcela Euceda NP Primary Care Provider [phone] Encounter Details Date Type Department Care Team [...] on file Legal Sex Male 8:02 AM CADDIE Gender Identity Not on file Sexual Orientation Not on file documented as of this encounter Plan of Treatment Not on file documented as of this encounter Visit Diagnoses Not on filedocumented in this encounter Care Teams Senior Financial Reporting Analyst Relationship Specialty Start Date End Date Marcela Euceda NP [address] [place] [address] 200 [place] [address] PCP - General Family Medicine 11/26/18 09/29/19 documented as of this encounter
--- OUTSIDE RECORDS SUMMARY | 2024-09-17 14:07 | XMS_ITS | Encounter Summary ---
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
--- OUTSIDE RECORDS SUMMARY | 2024-09-17 14:07 | XMS_ITS | Encounter Summary ---
Author Organization [facility] Healthcare Address [address] [place] [address] Care Team Providers Care Beverage Manager Name Role Phone Marcela Euceda NP Primary Care Provider [phone] Reason for Referral * Diagnostic Imaging (Routine) - Closed Specialty Diagnoses / Procedures Referred By Zaida camacho Referred To Contact Diagnoses Diffuse abdominal pain Procedures US Abdomen Complete Marcela Euceda NP Phone: tel: fax: [address] [address] Referral ID Status Reason Start Date Expiration Date Visits Re quested Visits Authorized [id number] Closed 12/18/2018 06/28/2020 1 1 Reason for Visit * Diagnostic Imaging (Routine) - Closed Specialty Diagnoses / Procedures Referred By Zaida camacho Referred To Contact Diagnoses Diffuse abdominal pain Procedures US Abdomen Complete Marcela Euceda NP Phone: tel: fax: [address] [address] Referral ID Status Reason Start Date Expiration Date Visits Re quested Visits Authorized [id number] Closed 12/18/2018 06/28/2020 1 1 Encounter Details Date Type Department Care Team (Late st Contact Info) Description 01/02/2019 7:45 AM CDT - 01/02/2019 8:09 AM CDT Hospital Encounter [facility] [address] [place] [address] Treva Stanley MD [address] [place] [address] Marcela Euceda NP [address] [place] [address] Diffuse abdominal pain Discharge Disposition: Discharge to [...] file 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
--- OUTSIDE RECORDS SUMMARY | 2024-09-17 14:07 | XMS_ITS | Encounter Summary ---
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 Estimated glomerular filtration [...] - 12/25/2018 5:35 PM CDT Marcela Euceda RAIL TRANSPORTATION OPERATOR LAB BLOOD ORDERABLES Final Resu lt [facility] ([place]) [address] [facility] [place] [address] * Testosterone (12/25/2018 4:02 PM CDT) Testosterone 574 193 - 740 ng/dL [facility] ([facility]) Comment:Testing performed by : [facility], [address] [place] [address], [id number] Blood specimen (specimen) 12/25/2018 4:02 PM CDT 12/26/2018 10:10 AM CDT Narrative [facility] (SHAHEED) - 12/26/2018 11:02 AM CDT Marcela Euceda RAIL TRANSPORTATION OPERATOR LAB BLOOD ORDERABLES Final Resu lt Performing Organization Address [facility]/ZIP Co de Phone Number [facility] ([place]HE[place]) [address] [facility] [address] * Comprehensive metabolic panel (12/25/2018 4:02 PM CDT) Sodium 138 135 - 145 mmol/L [facility] ([facility]) Potassium, pl 4.1 3.3 - 4.9 mmol/L [facility] ([facility]) Chloride 105 97 - 110 mmol/L [facility] ([facility]) CO2 23 22 - 32 mmol/L [facility] ([place]) Anion gap 10 2 - 15 mmol/L [facility] ([facility]) BUN 11 8 - 25 mg/dL [facility] ([facility]) Creatinine 0.84 0.80 - 1.30 mg/dL [facility] ([facility]) Glucose 93 70 - 199 mg/dL [facility] ([facility]) Comment: Interpretive Data Fasting glucose [...] Final Resu lt [facility] ([facility]) [address] [facility] Department [place] [address] * CBC with auto differential (12/25/2018 4:02 [...] ORDERABLES Final Resu lt Performing Organization Address City/[facility]/ZIP Co de Phone Number [facility] ([place]) [address] [facility] [place] [address] * Vitamin D 25 hydroxy (12/25/2018 4:02 PM CDT) Vitamin D 25-OH 30 30 - 80 ng/mL [facility] ([facility]) Blood specimen (specimen) 12/25/2018 4:02 PM CDT 12/25/2018 5:03 PM CDT Narrative [facility] ([facility]) - 12/25/2018 5:35 PM CDT us Marcela Euceda NP LAB BLOOD ORDERABLES Final Resu lt [facility] ([place]) 1 [facility] [place] [address] documented in this encounter Visit Diagnoses Diagnosis Fatigue, unspecified type Erectile dysfunction, unspecified erectile dysfunction type documented in this encounter Care Teams Car Pilot Relationship Specialty Start Date End Date Marcela Euceda NP [address] [place] [address] 200 [place] [address] PCP - General Family Medicine 11/26/18 09/29/19 documented as of this encounter
--- OUTSIDE RECORDS SUMMARY | 2024-09-17 14:07 | XMS_ITS | Encounter Summary ---
Author Organization [facility] Medical Group Address [address] [facility] [address] [place] [address] Care Team Providers Care Monomer Recovery Operator Name Role Phone Marcela Euceda NP Primary Care Provider [phone] Encounter Details Date Type Department Care Team (Late st Contact Info) Description 01/07/2019 Telephone [facility] of [address] [place] [address] Jada Phillips NP [address] [facility] [address] [place] [address] Social History Tobacco Use Types Packs/Day Years Used Date Smoking Tobacco: Never Smokeless Tobacco: Former Chew Quit: 08/2018 Comments:chews, not interest ed in counseling Alcohol Use Standard Drinks/Week Comments Yes 0 (1 standard drink = 0.6 oz pur e alcohol) can of beer a month Sex and Gender Information Value Date Recorded Sex Assigned at Not on file 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 Called patient to notify of findings on ct and to expect phone call to schedule this appointment. Pt voiced understanding. documented in this encounter Plan of Treatment Not on file documented as of this encounter Visit Diagnoses Not on filedocumented in this encounter Care Teams Monomer Recovery Operator Relationship Specialty Start Date End Date Marcela Euceda NP [address] [place] [address] [address] [place] [address] PCP - General Family Medicine 11/26/18 09/29/19 documented as of this encounter
--- OUTSIDE RECORDS SUMMARY | 2024-09-17 14:07 | XMS_ITS | Encounter Summary ---
Author Organization 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 Gender Identity Not on file Sexual Orientation [...] Neutrophil abs 4.4 1.7 - 6.5 K/cumm [facility] Imm gran abs 0.0 0.0 - 0.1 K/cumm [facility] Lymphocyte abs 1.2 0.8 - 3.3 K/cumm [facility] Monocyte abs 0.4 0.2 - 0.8 K/cumm [facility] Eosinophil abs 0.2 0.0 - 0.5 K/cumm [facility] Basophil abs 0.1 0.0 - 0.1 K/cumm [facility] Neutrophil pct 70.0 % [facility] Comment: Interpretive Data Percent cell count reference ranges are not reported, since discordance with absolute values may lead to misinterpretation of CBC data. Current Interpretive Data was last revised on 2017. Imm gran pct 0.8 % [facility] Comment: Interpretive Data Percent cell count reference ranges are not reported, since discordance with absolute values may lead to misinterpretation of CBC data. Current Interpretive Data was last revised on 2017. Lymphocyte pct 19.0 % [facility] Comment: Interpretive Data Percent cell count reference ranges are not reported, since discordance with absolute values may lead to misinterpretation of CBC data. Current Interpretive Data was last revised on 2017. Monocyte pct 6.0 % [facility] Comment: Interpretive Data Percent cell count reference ranges are not reported, since discordance with absolute values may lead to misinterpretation of CBC data. Current Interpretive Data was last revised on 2017. Eosinophil pct 3.3 % [facility] Comment: Interpretive Data Percent cell count reference ranges are not reported, since discordance with absolute values may lead to misinterpretation of CBC data. Current Interpretive Data was last revised on 2017. Basophil pct 0.9 % [facility] Comment: Interpretive Data Percent cell count reference ranges are not reported, since discordance with absolute values may lead to misinterpretation of CBC data. Current Interpretive Data was last revised on 2017. Blood specimen (specimen) 02/06/2019 10:52 AM CDT 02/06/2019 11:06 AM CDT Narrative [facility] - 02/06/2019 11:14 AM CDT Taisha Ennis MD LAB BLOOD ORDERABLES Fin al Result [facility] [place] [address] * CBC with auto differential (02/06/2019 10:52 AM CDT) WBC 6.4 3.8 - 9.9 K/cumm [facility] Hgb 14.9 13.0 - 17.5 g/dL [facility] Hct 42.7 38.9 - 50.3 % [facility] Plt 217 150 - 400 K/cumm [facility] MPV 9.8 9.1 - 12.3 fL [facility] RBC 4.65 4.30 - 5.80 M/cumm [facility] MCV 91.8 81.3 - 96.4 fL [facility] MCH 32.0 27.1 - 33.3 pg [facility] MCHC 34.9 32.3 - 35.7 g/dL [facility] RDW CV 12.6 11.1 - 14.9 % [facility] RDW SD 41.7 35.7 - 48.1 fL [facility] NRBC abs 0.00 0.00 - 0.01 K/cumm [facility] Blood specimen (specimen) 02/06/2019 10:52 AM CDT 02/06/2019 11:06 AM CDT Narrative [facility] - 02/06/2019 11:14 AM CDT Taisha Ennis MD LAB BLOOD ORDERABLES Fin al Result [facility] [place] [address] * Basic metabolic panel (02/06/2019 10:52 AM CDT) Sodium 141 135 - 145 mmol/L [facility] Potassium, pl 4.5 3.3 - 4.9 mmol/L [facility] Chloride 107 97 - 110 mmol/L [facility] CO2 25 22 - 32 mmol/L [facility] Anion gap 9 2 - 15 mmol/L [facility] BUN 14 8 - 25 mg/dL [facility] Creatinine 0.99 0.80 - 1.30 mg/dL [facility] Glucose 101 70 - 199 mg/dL [facility] Comment: Interpretive Data Fasting glucose >/= 126 [...] 2017. Calcium 9.8 8.5 - 10.3 mg/dL [facility] Blood specimen (specimen) 02/06/2019 10:52 AM CDT 02/06/2019 11:06 AM CDT Narrative [facility] - 02/06/2019 11:40 AM CDT Taisha Ennis MD LAB BLOOD ORDERABLES Fin al Result Performing Organization Address City/State/[facility] Co de Phone Number [facility] [address] [facility] [place] [address] documented in this encounter Visit Diagnoses Diagnosis Lymphadenopathy Enlargement of lymph nodes documented in this encounter Care Teams Sap Director Relationship Specialty Start Date End Date Marcela Euceda NP [address] [place] [address] PCP - General Family Medicine 11/26/18 09/29/19 Jada Phillips NP [address] [place] [address] Nurse Practitioner Family Medicine 01/19/19 09/29/19 documented as of this encounter
--- OUTSIDE RECORDS SUMMARY | 2024-09-17 14:07 | XMS_ITS | Encounter Summary ---
Author Organization 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 De La Torre states he feels [...] retroperitoneum documented in this encounter Care Teams Kindergarten Instructional Assistant Relationship Specialty Start Date End Date Marcela Euceda NP [address] [place] [address] PCP - General Family Medicine 11/26/18 09/29/19 documented as of this encounter
--- OUTSIDE RECORDS SUMMARY | 2024-09-17 14:07 | XMS_ITS | Encounter Summary ---
Author Organization [facility] Medical Group Address [address] [facility] [address] [place] [address] Care Team Providers Care Supervisor Dental Laboratory Name Role Phone Marcela Euceda PRODUCTION CONTROL PLANNER Primary Care Provider [phone] Encounter Details Date Type Department Care Team (Late st Contact Info) Description 01/05/2019 Telephone [facility] [address] [place] [address] Marcela Euceda, ALAN [address] [facility] [address] [place] [address] Social History Tobacco Use Types Packs/Day Years Used Date Smoking Tobacco: Never Smokeless Tobacco: Former Chew Quit: 08/2018 Comments:chews, not interest ed in counseling Alcohol Use Standard Drinks/Week Comments Yes 0 (1 standard drink = 0.6 oz pur e alcohol) can of beer a month Sex and Gender Information Value Date Recorded Sex Assigned at Not on file 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 DR Lim can you address for me PT next apt 01/16/2019 last labs 12/25/2018 documented in this encounter Plan of Treatment Not on file documented as of this encounter Visit Diagnoses Not on filedocumented in this encounter Care Teams Supervisor Dental Laboratory Relationship Specialty Start Date End Date Marcela Euceda NP [address] [place] [address] PCP - General Family Medicine 11/26/18 09/29/19 documented as of this encounter
--- OUTSIDE RECORDS SUMMARY | 2024-09-17 14:07 | XMS_ITS | Encounter Summary ---
Author Organization 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
--- OUTSIDE RECORDS SUMMARY | 2024-09-17 14:07 | XMS_ITS | Encounter Summary ---
Author Organization 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
--- OUTSIDE RECORDS SUMMARY | 2024-09-17 14:07 | XMS_ITS | Encounter Summary ---
Author Organization [facility] Healthcare Address [address] [place] [address] Care Team Providers Care Biophysics Teacher Name Role Phone Marcela Euceda DIGITAL PRE PRESS OPERATOR Primary Care Provider [phone] Jada Phillips DIGITAL PRE PRESS OPERATOR Unavailable Reason for Referral * Diagnostic Imaging (Routine) - Closed Specialty Diagnoses / Procedures Referred By Zaida camacho Referred To Contact Radiology Diagnoses Retroperitoneal lymphadenopathy Procedures IR Biopsy Abdomen Retroperitoneal Payam Yancey MD Phone: tel: fax: [address] [address] Referral ID Status Reason Start Date Expiration Date Visits Re quested Visits Authorized [id number] Closed 01/26/2019 08/06/2020 1 1 Reason for Visit * Diagnostic Imaging (Routine) - Closed Specialty Diagnoses / Procedures Referred By Zaida camacho Referred To Contact Radiology Diagnoses Retroperitoneal lymphadenopathy Procedures IR Biopsy Abdomen Retroperitoneal Payam Yancey MD Phone: tel: fax: [address] [address] Referral ID Status Reason Start Date Expiration Date Visits Re quested Visits Authorized [id number] Closed 01/26/2019 08/06/2020 1 1 Encounter Details Date Type Department Care Team (Late st Contact Info) Description 02/06/2019 10:06 AM CDT - 02/06/2019 11:59 PM CDT Hospital Encounter [facility] Radiology [address] [facility] [place] [address] Payam Yancey MD [address] MSC: [id number] [place] [address] Taisha Ennsi MD [address] [facility] [address] [place], [place] [id number] Retroperitoneal lymphadenopathy Discharge Disposition: Discharge to home [...] on file 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 To contact an Interventional Radiologist at [facility] call [phone] Saturday through Saturday from 7:30am-4:30pm. At all other times call [phone] and ask that the Interventional Radiologist be paged. To contact an Interventional Radiologist at [facility] call [phone] Saturday through Saturday from 7:30am-3:30pm. Special instructions: [...] at Please come to: [] 3rd Floor [facility] [] 4th floor [facility] [] [facility] [] [facility] Please call [phone] to schedule a follow up appointment. You [...] 10/20/2018 9 pravastatin (PRAVACHOL) 40 mg tablet Take 1 tablet (40 mg total) by mouth daily 90 tablet 01/05/2019 9 raNITIdine (ZANTAC) 300 mg tabletIndications: Laryngopharyngeal reflux (LPR),Abnormal gag reflex Take 1 tablet (300 mg total) by mouth nightly 90 tablet 3 01/02/2019 9 pravastatin (PRAVACHOL) 40 mg tabletIndications: hyperlipidemia Take 1 tablet (40 mg total) by mouth daily 30 tablet 11/26/2018 9 documented as of this encounter Discharge [...] Notes * Post-Procedure Note - Ana Laura Hooker MD - 02/06/2019 1:14 PM CDT Radiology Brief Post Procedure Note Attending: Taisha Ennis MD Bathhouse Attendant: Ana Laura Hooker MD Sedation/Anesthesia: Min Sedation [...] was obtained. Prior to beginning the procedure, [place] Protocol was performed to confirm the patient's [...] was obtained. Prior to beginning the procedure, [place] Protocol was performed to confirm the patient's [...] results best viewed via link to PDF [facility] [place] [address] SURGICAL PATHOLOGY REPORT FINAL Patient Name: ?? JADEN CLEMENT Gender: ??M : ??1970 (Age: 48) Address: ??[address] [place], [place] ??[address] Hospital #: ??[id number] Taken:02/06/2019 Received:02/06/2019 Reported: 02/10/2019 Patient Type: [facility] Ancillary ?? Service: Radiology Location: [facility] Physician(s): ??Jenn Cevallos M.D. Diagnosis: [...] cytospin have been reviewed by Mando Li MD.[facility] Microscopic examination substantiates the above cited [...] determined by the Surgical Pathology Department at [facility] as part of an ongoing software quality analyst program and in compliance with federally [...] determined by the Surgical Pathology Department of [facility]. ??It has not been cleared or approved by the U. S. Food and Drug Administration. IMAGES AND SCANNED DOCUMENTS, IF INCLUDED, ONLY VIEWABLE IN PDF VERSION OF REPORT us Taisha Ennis MD LAB PATHOLOGY ORDERABLES Final Result * Flow Leukemia/Lymphoma Lymph node (02/06/2019 12:50 PM CDT) Leukemia/Lymp gayle Result See separate Surgical Pathology report. [facility] Lymph node 02/06/2019 12:5 0 PM CDT 02/06/2019 5:18 PM CDT Narrative [facility] - 02/06/2019 10:56 PM CDT us Payam Yancey MD LAB PATHOLOGY ORDERAB LES Final Result [facility] Department [place] [address] documented in this encounter Visit Diagnoses Diagnosis [...] 01/09 documented in this encounter Care Teams Biophysics Teacher Relationship Specialty Start Date End Date Marcela Euceda NP [address] [facility] [address] [place] [address] PCP - General Family Medicine 11/26/18 09/29/19 Jada Phillips NP [address] [place] [address] Nurse Practitioner Family Medicine 01/19/19 09/29/19 documented as of this encounter
--- OUTSIDE RECORDS SUMMARY | 2024-09-17 14:07 | XMS_ITS | Encounter Summary ---
Author Organization [facility] Healthcare Address [address] [place] [address] Care Team Providers Care Catalyst Operator Name Role Phone OkMarcela CO FOUNDER AND CEO Primary Care Provider [phone] Jada Phillips CO FOUNDER AND CEO Unavailable Encounter Details Date Type Department Care Team (Late st Contact Info) Description 02/06/2019 Orders Only Radiology [address] [place] [address] Sudheer Vaughn MD PhD [address] [place] [address] [address] [place] [address] Social History Tobacco Use Types Packs/Day Years Used Date Smoking Tobacco: Never Smokeless Tobacco: Former Chew Quit: 08/2018 Comments:chews, not interest ed in counseling Alcohol Use Standard Drinks/Week Comments Yes 0 (1 standard drink = 0.6 oz pur e alcohol) can of beer a month Sex and Gender Information Value Date Recorded Sex Assigned at Not on file 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 All questions answered and they agree to proceed. documented in this encounter Plan of Treatment Not on file documented as of this encounter Visit Diagnoses Not on filedocumented in this encounter Care Teams Catalyst Operator Relationship Specialty Start Date End Date Marcela Euceda NP [address] [place] [address] PCP - General Family Medicine 11/26/18 09/29/19 Jada Phillips NP [address] [place] [address] [address] [place] [address] Nurse Practitioner Family Medicine 01/19/19 09/29/19 documented as of this encounter
--- OUTSIDE RECORDS SUMMARY | 2024-09-17 14:07 | XMS_ITS | Encounter Summary ---
Author Organization [facility] Address [address] [place] [address] Care Team Providers Care Manager State Name Role Phone Marcela Euceda NP Primary Care Provider [phone] Jada Phillips NP Unavailable Reason for Referral * Diagnostic Imaging (Routine) - Closed Specialty Diagnoses / Procedures Referred By Zaida camacho Referred To Contact Radiology Diagnoses Benign ganglioneuroma of abdomen Procedures CT Abdomen WO Contrast Marcela Euceda NP Phone: tel: fax: [address] [address] Referral ID Status Reason Start Date Expiration Date Visits Re quested Visits Authorized [id number] Closed 03/30/2019 10/08/2020 1 1 Reason for Visit * Diagnostic Imaging (Routine) - Closed Specialty Diagnoses / Procedures Referred By Zaida camacho Referred To Contact Radiology Diagnoses Benign ganglioneuroma of abdomen Procedures CT Abdomen WO Contrast Marcela Euceda NP Phone: tel: fax: [address] [address] Referral ID Status Reason Start Date Expiration Date Visits Re quested Visits Authorized [id number] Closed 03/30/2019 10/08/2020 1 1 Encounter Details Date Type Department Care Team (Latest Contact Info) Description 06/09/2019 6:53 AM CDT - 06/09/2019 11:59 PM CDT Hospital Encounter [facility] [address] [place] [address] Trevin Kiarrajanel Crain, DO [address] [facility] [address] [place] [address] Marcela Euceda NP [address] [place] [address] Benign ganglioneuroma of abdomen Discharge Disposition: Discharge [...] on file 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 Left khyc-vzellr-ogjsihzlbxb mass measures approximately 5.3 x 2.5 cm [...] and inferior vena cava appear normal. Left hluo-vmdrjb-gfybguuqvcb mass measures approximately 5.3 x 2.5 cm [...] abdomen documented in this encounter Care Teams Manager State Relationship Specialty Start Date End Date Marcela Euceda NP [address] [facility] [address] [place] [address] PCP - General Family Medicine 11/26/18 09/29/19 Jada Phillips NP [address] [facility] [address] [place] [address] Nurse Practitioner Family Medicine 01/19/19 09/29/19 documented as of this encounter
--- OUTSIDE RECORDS SUMMARY | 2024-09-17 14:07 | XMS_ITS | Encounter Summary ---
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 Gender Identity Not on file Sexual Orientation Not on file documented as of this encounter Plan of Treatment Not on file documented as of this encounter Results * Basic metabolic panel (02/06/2019 10:52 AM CDT) Sodium 141 135 - 145 mmol/L [facility] Potassium, pl 4.5 3.3 - 4.9 mmol/L [facility] Chloride 107 97 - 110 mmol/L [facility] CO2 25 22 - 32 mmol/L [facility] Anion gap 9 2 - 15 mmol/L [facility] BUN 14 8 - 25 mg/dL [facility] Creatinine 0.99 0.80 - 1.30 mg/dL [facility] Glucose 101 70 - 199 mg/dL [facility] Comment: Interpretive Data Fasting glucose >/= [...] 2017. Calcium 9.8 8.5 - 10.3 mg/dL [facility] Blood specimen (specimen) 02/06/2019 10:52 AM CDT 02/06/2019 11:06 AM CDT Narrative [facility] - 02/06/2019 11:40 AM CDT Taisha Ennis MD LAB BLOOD ORDERABLES Fin al Result [facility] One [facility] Department [place] [address] * CBC with auto differential (02/06/2019 10:52 AM CDT) [facility] WBC 6.4 3.8 - 9.9 K/cumm [facility] Hgb 14.9 13.0 - 17.5 g/dL [facility] Hct 42.7 38.9 - 50.3 % [facility] Plt 217 150 - 400 K/cumm [facility] MPV 9.8 9.1 - 12.3 fL [facility] RBC 4.65 4.30 - 5.80 M/cumm [facility] MCV 91.8 81.3 - 96.4 fL [facility] MCH 32.0 27.1 - 33.3 pg [facility] MCHC 34.9 32.3 - 35.7 g/dL [facility] RDW CV 12.6 11.1 - 14.9 % [facility] RDW SD 41.7 35.7 - 48.1 fL [facility] NRBC abs 0.00 0.00 - 0.01 K/cumm [facility] Blood specimen (specimen) 02/06/2019 10:52 AM CDT 02/06/2019 11:06 AM CDT Narrative [facility] - 02/06/2019 11:14 AM CDT us Taisha Ennis MD LAB BLOOD ORDERABLES Fin al Result [facility] One [facility] Department [place] [address] documented in this encounter Visit Diagnoses Diagnosis Lymphadenopathy- Primary Enlargement of lymph nodes Lymphadenopathy Enlargement of lymph nodes documented in this encounter Care Teams Welding Instructor Relationship Specialty Start Date End Date Marcela Euceda NP [address] [place] [address] [address] [place] [address] PCP - General Family Medicine 11/26/18 09/29/19 Jada Phillips NP [address] [facility] [address] [place] [address] Nurse Practitioner Family Medicine 01/19/19 09/29/19 documented as of this encounter
--- OUTSIDE RECORDS SUMMARY | 2024-09-17 14:07 | XMS_ITS | Encounter Summary ---
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
--- OUTSIDE RECORDS SUMMARY | 2024-09-17 14:07 | XMS_ITS | Encounter Summary ---
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
--- OUTSIDE RECORDS SUMMARY | 2024-09-17 14:08 | XMS_ITS | Encounter Summary ---
Author Organization [facility] Healthcare Address [address] [place] [address] Care Team Providers Care Hand Leather Trimmer Name Role Phone Renate Quentin English NP Primary Care Provi christian Encounter Details Date Type Department Care Team (Latest Contact Info) Description 02/25/2017 6:16 PM CDT - 02/25/2017 11:59 PM CDT Hospital Encounter [facility] OP INTERIM [phone] Go Diallo MD [address] [facility] [address] [place] [address] Discharge Disposition: Discharge to home or self care Social History Tobacco Use Types Packs/Day Years Used Date Smoking Tobacco: Smoker, Current Status Unknown Alcohol Use Standard Drinks/Week Comments Yes 0 (1 standard drink = 0.6 oz pur e alcohol) Sex and Gender Information Value Date Recorded Sex Assigned at Not on file 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 < 150 mg/dL Borderline High: ? 150 - 199 mg/dL High: ?200 - 499 mg/dL Very High: ? > or = 499 mg/dL Literature Reference: See Cholesterol Current interpretive data was last revised on 2015. HDL 40 >=40 mg/dL [facility] Comment: Interpretive Data Less than 40 mg/dL - low; A major risk factor for heart disease. Greater than or equal to 60 mg/dL - High; ??considered protective of heart disease. Literature Reference: See Cholesterol Current interpretive data was last revised on 2015. LDL, calculated 106 10 - 129 mg/dL [facility] Comment: Interpretive Data Optimal: ? < 100 mg/dL Near Optimal: ?100 - 129 mg/dL Borderline High: ?? 130 - 159 mg/dL High: ?160 - 189 mg/dL Very high: ? > or = 190 mg/dL Literature Reference: See Cholesterol Current interpretive data was last revised on 2015. Non-HDL Cholesterol 175 mg/dL [facility] Comment: Interpretive Data When triglycerides are >200 mg/dL, non-HDL C is a secondary target of therapy, with a goal 30 mg/dL higher than the identified LDL-C goal. Reference: ??See Cholesterol Reference. Current interpretive data was last revised 2015. Blood specimen (specimen) 02/25/2017 3:10 PM CDT 02/25/2017 6:49 PM CDT Go Diallo MD LAB BLOOD ORDERABLES Edited R esult - Final [facility] One [facility] [place] [address] * Comprehensive metabolic panel without glucose (outreach) (02/25/2017 3:10 PM CDT) Sodium 140 135 - 145 mmol/L [facility] Potassium, pl 4.1 3.3 - 4.9 mmol/L [facility] Chloride 103 97 - 110 mmol/L [facility] CO2 28 22 - 32 mmol/L [facility] Anion gap 9 2 - 15 mmol/L [facility] BUN 10 8 - 25 mg/dL [facility] Creatinine 1.01 0.80 - 1.30 mg/dL [facility] Calcium 9.6 8.5 - 10.3 mg/dL [facility] Protein, pl 7.5 6.5 - 8.5 g/dL [facility] Albumin 4.7 3.5 - 5.0 g/dL [facility] Bilirubin, total 0.5 0.1 - 1.2 mg/dL [facility] Alk phos 97 40 - 130 Units/L [facility] AST 26 10 - 50 Units/L [facility] ALT 26 7 - 55 Units/L [facility] Blood specimen (specimen) 02/25/2017 3:10 PM CDT 02/25/2017 6:49 PM CDT Go Diallo MD LAB BLOOD ORDERABLES Edited R esult - Final Performing Organization Address [facility] Co de Phone Number [facility] [place] [address] * CS GLUCOSE (02/25/2017 3:10 PM CDT) Pathologist [facility] Glucose 96 70 - 199 mg/dL [facility] Blood specimen (specimen) 02/25/2017 3:10 PM CDT 02/25/2017 6:49 PM CDT Go Diallo MD LAB BLOOD ORDERABLES Final Re sult Performing Organization Address [facility] de Phone Number [facility] [place] [address] * Urinalysis, microscopic (02/25/2017 3:10 PM CDT) [facility] RBC, ur 1 0 - 3 /HPF [facility] WBC, ur 2 0 - 5 /HPF [facility] Bacteria, ur Negative Trace [facility] Epithelial cells, renal, ur 0 0 - 0 /HPF [facility] Urine 02/25/2017 3:10 PM CDT 02/25/2017 6:49 PM CDT Go Diallo MD LAB URINE ORDERABLES Final Re sult Performing Organization Address [facility] de Phone Number [facility] [place] [address] * Differential, auto (02/25/2017 3:10 PM CDT) Neutrophil pct 58.3 % [facility] Imm gran pct 1.1 % [facility] Lymphocyte pct 27.4 % [facility] Monocyte pct 8.9 % [facility] Eosinophil pct 3.2 % [facility] Basophil pct 1.1 % [facility] Neutrophil abs 2.70 1.70 - 6.50 K/cumm [facility] Imm gran abs 0.05 0.00 - 0.10 K/cumm [facility] Lymphocyte abs 1.27 0.80 - 3.30 K/cumm [facility] Monocyte abs 0.41 0.20 - 0.80 K/cumm [facility] Eosinophil abs 0.15 0.00 - 0.50 K/cumm [facility] Basophil abs 0.05 0.00 - 0.10 K/cumm [facility] Blood specimen (specimen) 02/25/2017 3:10 PM CDT 02/25/2017 6:48 PM CDT us Go Diallo MD LAB BLOOD ORDERABLES Final Re sult [facility] One [facility] [place] [address] * CBC with auto differential (02/25/2017 3:10 PM CDT) WBC 4.63 3.80 - 9.90 K/cumm [facility] RBC 4.60 4.30 - 5.80 M/cumm [facility] Hgb 15.0 13.0 - 17.5 g/dL [facility] Hct 42.7 38.9 - 50.3 % [facility] MCV 92.8 81.3 - 96.4 fL [facility] MCH 32.6 27.1 - 33.3 pg [facility] MCHC 35.1 32.3 - 35.7 g/dL [facility] RDW CV 12.4 11.1 - 14.9 % [facility] RDW SD 42.5 35.7 - 48.1 fL [facility] Plt 232 150 - 400 K/cumm [facility] MPV 10.7 9.1 - 12.3 fL [facility] NRBC 0.0 0.0 - 0.2 % [facility] NRBC abs 0.00 0.00 - 0.01 K/cumm [facility] Blood specimen (specimen) 02/25/2017 3:10 PM CDT 02/25/2017 6:48 PM CDT Go Diallo MD LAB BLOOD ORDERABLES Final Re sult Performing Organization Address City/[facility]/ZIP Co de Phone Number [facility] [place] [address] * (ABNORMAL) Urinalysis (02/25/2017 3:10 PM CDT) Color, ur Yellow Yellow [facility] Clarity, ur Clear Clear [facility] Specific gravity, ur 1.009 1.003 - 1.030 [facility] pH, ur 7.0 5.0 - 8.0 [facility] Albumin, ur Negative Trace [facility] Glucose, ur ql Negative Negative [facility] Ketones, ur Negative Negative [facility] Bilirubin, ur Negative Negative [facility] Blood, ur Negative Negative [facility] Urobilinogen, ur <2.0 <2.0 mg/dL [facility] Nitrites, ur Negative Negative [facility] Leukocyte esterase, ur 2+(A) Negative [facility] Urine 02/25/2017 3:10 PM CDT 02/25/2017 6:49 PM CDT Go Diallo MD LAB URINE ORDERABLES Final Re sult Performing Organization Address [facility] Co de Phone Number [facility] [place] [address] * DISCHARGE LABORATORY CUMULATIVE REPORT (02/25/2017) Provider Scanning LAB BLOOD ORDERABLES Final Res ult documented in this encounter Visit Diagnoses Not on filedocumented in this encounter Care Teams Hand Leather Trimmer Relationship Specialty Start Date End Date Quentin Dewitt NP PCP - General 12/07/16 10/19/18 documented as of this encounter
--- OUTSIDE RECORDS SUMMARY | 2024-09-17 14:08 | XMS_ITS | Encounter Summary ---
Author Organization [facility] Medical Group Address [address] [place] [address] Care Team Providers Care Computer Programmer Analyst Name Role Phone Marcela Euceda NP Primary Care Provider [phone] Reason for Visit * Consultation (Routine) - Closed Specialty Diagnoses / Procedures Referred By Zaida camacho Referred To Contact Neurology Diagnoses Obstructive sleep apnea syndrome Primary insomnia Nguyen Coronado NP Phone: tel: fax: Aristeo Oro MD [address] [place] [address] DR DIDIER Hong [facility] [address] [place] [address] Phone: tel: fax: Referral ID Status Reason Start Date Expiration Date V isits Requested Visits Authorized [id number] Closed Specialty Services Required 10/20/2018 04/30/2020 1 1 Encounter Details Date Type Department Care Team (Late st Contact Info) Description 11/27/2018 8:30 AM CDT Office Visit [facility] [address] [place] [address] Aristeo Oro MD [address] [place] [address] DR DIDIER Hong [facility] [address] [place] [address] Obstructive sleep apnea syndrome (Primary Dx); Hypersomnia [...] on file 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 Phoenix Sleepiness Scale score is 16. He falls [...] file Gets together: Not on file Attends hinduism service: Not on file Active member of [...] 30.0-34.9) documented in this encounter Care Teams Computer Programmer Analyst Relationship Specialty Start Date End Date Marcela Euceda NP [address] [place] [address] PCP - General Family Medicine 11/26/18 09/29/19 documented as of this encounter
--- OUTSIDE RECORDS SUMMARY | 2024-09-17 14:08 | XMS_ITS | Encounter Summary ---
Author Organization [facility] Medical [facility] Address [address] [place] [address] Care Team Providers Care Classification Clerk Name Role Phone Kiarra Zhong DO Primary Care Provider [phone] Reason for Visit * Reason Onset Date Comments Records release 11/06/2018 sign Encounter Details Date Type Department Care Team (Late st Contact Info) Description 11/06/2018 Telephone [facility] ENT Specialists - [facility] [address] [facility] [address] [facility] [address] [facility] [address] [place] [phone] Lily Chavez MA Records release (sign) Social [...] on file Legal Sex Male 8:02 AM CLAY HOISTER Gender Identity Not on file Sexual Orientation [...] he may get up here will be. HOISTER documented in this encounter Plan of Treatment Not on file documented as of this encounter Visit Diagnoses Not on filedocumented in this encounter Care Teams Classification Clerk Relationship Specialty Start Date End Date Kiarra Zhong DO PCP - General Family Medicine 10/20/18 11/25/18 documented as of this encounter
--- OUTSIDE RECORDS SUMMARY | 2024-09-17 14:08 | XMS_ITS | Encounter Summary ---
Author Organization [facility] Healthcare Address [address] [place] [address] Care Team Providers Care Research And Development Technician Name Role Phone Quentin Dewitt NP Primary Care Provi christian Encounter Details Date Type Department Care Team (Late st Contact Info) Description 02/29/2016 4:09 PM CDT - 02/29/2016 11:59 PM CDT Hospital Encounter [facility] Dena Ramírez DO 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
--- OUTSIDE RECORDS SUMMARY | 2024-09-17 14:08 | XMS_ITS | Encounter Summary ---
Author Organization [facility] Healthcare Address [address] [place] [address] Care Team Providers Care Sheet Metal Worker Maintenance Name Role Phone Christopherchristianglenys Quentin Tameka ALAN Primary Care Provi christian Encounter Details Date Type Department Care Team (Late st Contact Info) Description 10/20/2015 6:57 AM SECURITY OFFICER - 10/20/2015 11:00 AM SECURITY OFFICER Hospital Encounter [facility] Clem Terrell MD [address] [place] [address] DR [address]Z [address] [address] Carpal tunnel syndrome of left wrist; Carpal [...] on file Legal Sex Male 8:02 AM SECURITY OFFICER Gender Identity Not on file [...] Patient: THOMAS CLEMENT. Service Date: 10/20/2015 Account: [id number] Room No: 175-02 : 1970 Patient Type: SDS Attend.: Clem Bedoya M.D. Admit Date: 10/20/2015 Surg.: Clem Bedoya M.D. Disch. Date: 10/20/2015 REVISED/EDIT TEXT ON 05/21/16 AT 901 PREOPERATIVE DIAGNOSIS Bilateral carpal tunnel syndrome. PROCEDURE PERFORMED Bilateral endoscopic carpal tunnel release. ANESTHESIA General. SPECIMENS None. ESTIMATED BLOOD LOSS Minimal. COMPLICATIONS None. CONDITION ON DISCHARGE Stable. VACATION SALES ADVISOR Dorita Krishnamurthy., A.T.C. [place]QU[place] TIME On the [...] Clem Bedoya MD On 10/24/2015 09:58 PM SECURITY OFFICER Electronically Authenticated by: Clem Bedoya MD On [...] (RLS) documented in this encounter Care Teams Sheet Metal Worker Maintenance Relationship Specialty Start Date End Date Quentin Dewitt NP PCP - General 12/29/13 12/06/16 documented as of this encounter
--- OUTSIDE RECORDS SUMMARY | 2024-09-17 14:08 | XMS_ITS | Encounter Summary ---
Author Organization [facility] Medical [facility] Address [address] [place] [address] Care Team Providers Care Apartment Hotel Manager Name Role Phone Kiarra Zhong DO Primary Care Provider [phone] Reason for Visit * Reason Onset Date Comments OV vs Procedures 10/30/2018 Encounter Details Date Type Department Care Team (Late st Contact Info) Description 10/30/2018 Telephone [facility] [address] [place] [address] [place] [address] [facility] [address] [place] [address] OV vs Procedures Social History Tobacco Use [...] on file 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 Gender Identity Not on file Sexual Orientation Not on file documented as of this encounter Miscellaneous Notes * Telephone Encounter - Vira Rico - 11/07/2018 8:56 AM CST Mailed colon letter FOUNDER AND CEO * Telephone Encounter - Vira Rico - 10/31/2018 8:26 AM CST lmom for patient to call the office FOUNDER AND CEO * Telephone Encounter - Elgin Marti MD - 10/30/2018 2:30 PM CST Can schedule egd/colon same day FOUNDER AND CEO * Telephone Encounter - Vira Rico - 10/30/2018 2:20 PM CST Patient referred by Nguyen Coronado NP for Non-intractable cyclical 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
--- OUTSIDE RECORDS SUMMARY | 2024-09-17 14:08 | XMS_ITS | Encounter Summary ---
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 : 1970 Admit Phys: JOB KEYES MD Case #: [id number] ? Date: 06/10/14 SPECIMEN SOURCE: ? Biopsy [...] ? -EROSION/ULCERATION ? -REACTIVE CELLULAR ALTERATIONS ? [id number], [id number], [id number] ? Pathologist: Denice Dick M.D. ??Electronic ?signature ? SCR SCR/LM 06/11/14 us Historical Provider MD LAB PATHOLOGY ORDERABLES Final Result HISTORICAL RESULTS * Microbiology Summary (06/10/2014 12:00 AM CDT) 06/10/2014 Narrative HISTORICAL RESULTS - 06/12/2014 2:57 AM CDT ? [facility] ?CLINICAL LABORATORIES ? MICROBIOLOGY REPORT PATIENT NAME: ??THOMAS CLEMENT ? MED RECORD#: ??[id number] BIRTHDATE: ??1970 ?? AGE: ??43 YRS SEX: M ?PATIENT#: ? [id number] ADMITTING DR: ??JOB KEYES MD ? ATTENDING DR: ??JOB KEYES MD ?ACCESSION#: ?? [id number] CREATED: ??06/12/14 ?? 0245 ? ADMIT DATE: [...] - 06/12/2014 2:45 AM CDT Patient No: [id number] ? [facility] Patient Name: THOMAS CLEMENT ? [facility] Age: 43 YRS ?: 1970 ?Sex:M ?[address] )[id number] ?? Adm Dt: 06/10/2014 ?[place] ??[address] Created: 06/12/2014 ??0245 ?? Pt. Type: O ? Discharge Dt: 06/10/2014 ? Pathologists: Denice Dick MD Admit Attend Dr: JOB KEYES MD ?S Nicola [place] ?P A T H O L O G Y ?R E P O R T ? Case #: ?[id number] ? Date: 06/10/14 SPECIMEN SOURCE: ? Biopsy [...] ?? CONTINUED ?Page: ?? 1 Patient No: [id number] ? [facility] Patient Name: THOMAS CLEMENT ? [facility] Age: 43 YRS ?: 1970 ?Sex:M ?[address] )[id number] ?? Adm Dt: 06/10/2014 ?[place], [place] ??[address] Created: 06/12/2014 ??0245 ?? Pt. Type: O ? Discharge Dt: 06/10/2014 ? Pathologists: Denice Dick MD Admit Dr. Herrera Dr: JOB KEYES MD ?S Nicola Rios [place] ?P A T H O L O G Y ?R E P O R T ? Case #: ?[id number] ? Date: 06/10/14 DIAGNOSIS: ? DISTAL ESOPHAGUS, BIOPSIES: ? -EROSION/ULCERATION ? -REACTIVE CELLULAR ALTERATIONS ? [id number], [id number], [id number] ? MICRO - MISCELLANEOUS H PYLORI UREASE [...] Duodenitis documented in this encounter Care Teams General Car Yard Supervisor Relationship Specialty Start Date End Date Quentin Dewitt NP PCP - General 12/29/13 12/06/16 documented as of this encounter
--- OUTSIDE RECORDS SUMMARY | 2024-09-17 14:08 | XMS_ITS | Encounter Summary ---
Author Organization [facility] Healthcare Address [address] [place] [address] Care Team Providers Care Software Development Coordinator Name Role Phone Quentin Dewitt NP Primary Care Provi christian Encounter Details Date Type Department Care Team (Late st Contact Info) Description 07/26/2013 8:22 AM TRAIN OPERATIONS SUPERVISOR - 07/26/2013 11:59 PM TRAIN OPERATIONS SUPERVISOR Hospital Encounter [facility] Dena Ramírez, [address] [place] [address] Hypoglycemia; Other malaise and fatigue; Screening for lipoid disorders Social History Tobacco Use Types Packs/Day Years Used Date Smoking Tobacco: Never Assessed Sex and Gender Information Value Date Recorded Sex Assigned at Not on file Legal Sex Male 8:02 AM TRAIN OPERATIONS SUPERVISOR Gender Identity Not on file Sexual Orientation Not on file documented as of this encounter Plan of Treatment Not on file documented as of this encounter Procedures Procedure Name Priority Date/Time Associated Diagnosis Comments SERUM LIPID PANEL Routine 07/26/2013 8:3 5 AM TRAIN OPERATIONS SUPERVISOR SERUM BASIC METABOLIC PANEL Routine 07/26/2013 8:35 AM TRAIN OPERATIONS SUPERVISOR SERUM 25-HYDROXYCHOLECALCIFER OL (VITAMIN D) Routine 07/26/2013 8:35 AM TRAIN OPERATIONS SUPERVISOR BLOOD WBC CELL MORPHOLOGIC EXAM, AUTO Routine 07/26/2013 8:35 AM TRAIN OPERATIONS SUPERVISOR BLOOD CELL COUNT (CBC) Routine 3 8:35 AM TRAIN OPERATIONS SUPERVISOR SERUM CYANOCOBALAMIN (VITAMIN B12) Routine 07/26/2013 2:35 AM TRAIN OPERATIONS SUPERVISOR BLOOD GLYCATED HEMOGLOBIN Routine 07/26/2013 2:35 AM TRAIN OPERATIONS SUPERVISOR DISCHARGE LABORATORY CUMULATIVE REPORT Routine 07/26/2013 12:00 AM TRAIN OPERATIONS SUPERVISOR documented in this encounter Results * (ABNORMAL) Serum basic metabolic panel (07/26/2013 8:35 AM TRAIN OPERATIONS SUPERVISOR) Pathologist [facility] [place] BUN 10.0 6.0 - 23.0 mg/dl HISTORICAL [...] RESULTS Comment: eGFR: >70 ml/min/1.73sq.m if non -Gabonese. eGFR: >70 ml/min/1.73sq.m if -Gabonese. AVE GFR for 40-49 yr. age group: ??99 ml/min/1.73sq.m Calculated using MDRD Equation BUN/creat ratio 9(L) 10 - 20 HIST ORICAL RESULTS A. gap 11 7 - 14 mmol/L HISTORICAL RESULTS Osmo, calc 271(L) 275 - 295 mOsm/kg HISTORICAL RESULTS Calcium 8.7 8.6 - 9.8 mg/dl HISTORICAL RESULTS Serum 07/26/2013 8:35 AM TRAIN OPERATIONS SUPERVISOR us Dena Ramírez DO LAB BLOOD ORDERABLES Final Res ult HISTORICAL RESULTS * Serum lipid panel (07/26/2013 8:35 AM TRAIN OPERATIONS SUPERVISOR) Cholesterol 205 mg/dl HISTORIC AL RESULTS Comment: [...] THAN 300 MG/DL. Serum 07/26/2013 8:35 AM TRAIN OPERATIONS SUPERVISOR Dena Ramírez DO LAB BLOOD ORDERABLES Final Res ult HISTORICAL RESULTS * Blood cell count (CBC) (07/26/2013 8:35 AM TRAIN OPERATIONS SUPERVISOR) WBC 5.0 4.0 - 10.5 K/cumm HISTORICAL [...] RESULTS Blood specimen (specimen) 07/26/2013 8:35 AM TRAIN OPERATIONS SUPERVISOR Dena Ramírez [place] LAB BLOOD ORDERABLES Final Res ult Performing Organization Address [facility] Co de Phone Number HISTORICAL RESULTS * (ABNORMAL) Blood WBC cell morphologic exam, auto (07/26/2013 8:35 AM TRAIN OPERATIONS SUPERVISOR) Lymphocytes 34.6(H) 25.0 - 33.0 % HISTORICAL [...] RESULTS Blood specimen (specimen) 07/26/2013 8:35 AM TRAIN OPERATIONS SUPERVISOR Dena Ramírez DO LAB BLOOD ORDERABLES Final Res ult Performing Organization Address City/[facility]/ZIP Co de Phone Number HISTORICAL RESULTS * (ABNORMAL) Serum 25-hydroxycholecalciferol (vitamin D) (07/26/2013 8:35 AM TRAIN OPERATIONS SUPERVISOR) 25-OH Vit D 28(L) 30 - 80 ng/ml HISTORICAL RESULTS Serum 07/26/2013 8:35 AM TRAIN OPERATIONS SUPERVISOR Dena Ramírez DO LAB BLOOD ORDERABLES Final Res ult HISTORICAL RESULTS * Blood glycated hemoglobin (07/26/2013 2:35 AM TRAIN OPERATIONS SUPERVISOR) Glycated hemoglobin 5.3 4.2 - 5.9 % HISTORICAL RESULTS Blood specimen (specimen) 07/26/2013 2:35 AM TRAIN OPERATIONS SUPERVISOR Narrative HISTORICAL RESULTS - 07/26/2013 5:26 AM TRAIN OPERATIONS SUPERVISOR Estimated average Glucose A1C(%) ?? mg/dl ? [...] women were not included. (Diabetes Care 2008; 31:0499-1465) us Dena Ramírez DO LAB BLOOD ORDERABLES Final Res ult HISTORICAL RESULTS * (ABNORMAL) Serum cyanocobalamin (vitamin B12) (07/26/2013 2:35 AM TRAIN OPERATIONS SUPERVISOR) Cyanocobalamin (Vit B12) 1620(H) 211 - 911 pg/ml HISTORICAL RESULTS Serum 07/26/2013 2:35 AM TRAIN OPERATIONS SUPERVISOR Narrative HISTORICAL RESULTS - 07/26/2013 4:47 AM TRAIN OPERATIONS SUPERVISOR VIT B12 REFERENCE RANGE 211-911 pg/ml us Dena Ramírez DO LAB BLOOD ORDERABLES Final Res ult Performing Organization Address City/[facility]/ZIP Co de Phone Number HISTORICAL RESULTS * Discharge Laboratory Cumulative Report (07/26/2013 12:00 AM TRAIN OPERATIONS SUPERVISOR) 07/26/2013 Narrative HISTORICAL RESULTS - 07/28/2013 12:28 AM TRAIN OPERATIONS SUPERVISOR Patient No: [id number] ? [facility] Patient Name: JADEN CLEMENT ? [facility] Healthcare Age: 42 YRS ?: 1970 ?Sex:M ?[address] )[phone] ?? Adm Dt: 07/26/2013 ?[place], [place] ??[id number] Created: 07/28/2013 ??0028 ?? Pt. Type: R [...] ?? CONTINUED ?Page: ?? 1 Patient No: [id number] ? [facility] Patient Name: JADEN CLEMENT ? [facility] Healthcare Age: 42 YRS ?: 1970 ?Sex:M ?[address] )[phone] ?? Adm Dt: 07/26/2013 ?[place] ??[id number] Created: 07/28/2013 ??0028 ?? Pt. Type: R [...] women were not included. (Diabetes Care 2008; 31:3414-4245) ?? CONTINUED ?Page: ?? 2 Patient No: [id number] ? [facility] Patient Name: JADEN CLEMENT ? [facility] Age: 42 YRS ?: 1970 ?Sex:M ?[address] )[phone] ?? Adm Dt: 07/26/2013 ?[place], [place] ??[address] Created: 07/28/2013 ??0028 ?? Pt. Type: R [...] ?07/26/13 0835 eGFR: >70 ml/min/1.73sq.m if non -Gabonese. eGFR: >70 ml/min/1.73sq.m if -Gabonese. AVE GFR for 40-49 yr. age group: [...] ?? CONTINUED ?Page: ?? 3 Patient No: [id number] ? [facility] Patient Name: JADEN CLEMENT ? [facility] Age: 42 YRS ?: 1970 ?Sex:M ?[address] )[phone] ?? Adm Dt: 07/26/2013 ?[place] ??[id number] Created: 07/28/2013 ??0028 ?? Pt. Type: R [...] ?? CONTINUED ?Page: ?? 4 Patient No: [id number] ? [facility] Patient Name: JADEN CLEMENT ? [facility] Age: 42 YRS ?: 1970 ?Sex:M ?[address] )[id number] ?? Adm Dt: 07/26/2013 ?[place], [place] ??[id number] Created: 07/28/2013 ??0028 ?? Pt. Type: R [...] disorders documented in this encounter Care Teams Software Development Coordinator Relationship Specialty Start Date End Date Quentin Dewitt NP PCP - General 07/06/13 12/28/13 documented as of this encounter
--- OUTSIDE RECORDS SUMMARY | 2024-09-17 14:08 | XMS_ITS | Encounter Summary ---
Author Organization [facility] Healthcare Address [address] [place] [address] Care Team Providers Care Pipe Layer Name Role Phone Quentin Dewitt NP Primary Care Provi christian Encounter Details Date Type Department Care Team (Late st Contact Info) Description 07/05/2015 2:28 PM CDT - 07/05/2015 11:59 PM CDT Hospital Encounter [facility] Dena Ramírez DO [address] [place] [address] Anesthesia of skin Social History Tobacco Use Types Packs/Day Years Used Date Smoking Tobacco: Smoker, Current Status Unknown Alcohol Use Standard Drinks/Week Comments No 0 (1 standard drink = 0.6 oz pur e alcohol) Sex and Gender Information Value Date Recorded Sex Assigned at Not on file Legal Sex Male 8:02 AM STORE LEADER Gender Identity Not on file Sexual [...] sensation documented in this encounter Care Teams Pipe Layer Relationship Specialty Start Date End Date Quentin Dewitt NP PCP - General 12/29/13 12/06/16 documented as of this encounter
--- OUTSIDE RECORDS SUMMARY | 2024-09-17 14:08 | XMS_ITS | Encounter Summary ---
Author Organization [facility] Healthcare Address [address] [place] [address] Care Team Providers Care Panel Assembler Name Role Phone Kiarra Zhong Primary Care Provider [phone] Encounter Details Date Type Department Care Team (Late st Contact Info) Description 10/21/2018 4:00 PM SERVICE WORKER [address] Brandon Aguayo MD [address] [place] [address] Nguyen Coronado CONTINUOUS STILL OPERATOR [address] [place] [address] Restless legs syndrome; Screening for prostate cancer [...] on file Legal Sex Male 8:02 AM SERVICE WORKER Gender Identity Not on file Sexual Orientation Not on file documented as of this encounter Discharge Disposition Disposition Code Departure Means Destination Discharge to home or self care documented in this encounter Plan of Treatment Not on file documented as of this encounter Procedures Procedure Name Priority Date/Time Associated Diagnosis Comments THYROID FUNCTION CASCADE Routine 10/21/2018 3:59 PM SERVICE WORKER Restless legs syndrome PSA SCREEN Routine 10/21/2018 3:59 PM SERVICE WORKER Screening for prostate cancer MAGNESIUM Routine 10/21/2018 3:59 PM SERVICE WORKER Restless legs syndrome FERRITIN Routine 10/21/2018 3:59 PM SERVICE WORKER Restless legs syndrome documented in this encounter Results * PSA screen (10/21/2018 3:59 PM SERVICE WORKER) PSA-Total 3.20 <=3.90 ng/mL [facility] ([facility]) Comment: Interpretive Data ?AGE ? SEX ?REFERENCE INTERVAL 0 minutes-150 years ?Female ?None 0 minutes-49 years ? Male ?None ? 50-59 years ? Male ?0-3.90 ? 60-69 years ? Male ?0-5.40 ? 70-79 years ? Male ?0-6.20 ? 80-150 years ?Male ?0-6.20 Current interpretive data last revised 2018. Testing performed by: [facility], [address] [place] [address], [place]., [address] Blood specimen (specimen) 10/21/2018 3:59 PM SERVICE WORKER 10/22/2018 9:28 AM SERVICE WORKER Narrative [facility] ([place]) - 10/22/2018 10:46 AM SERVICE WORKER us Nguyen Coronado NP LAB BLOOD ORDERABLES Final Result [facility] ([facility]) [address] [facility] [place] [address] * (ABNORMAL) Ferritin (10/21/2018 3:59 PM SERVICE WORKER) Ferritin 509(H) 30 - 400 ng/mL [facility] ([facility]) Blood specimen (specimen) 10/21/2018 3:59 PM SERVICE WORKER 10/21/2018 4:50 PM SERVICE WORKER Narrative [facility] - 10/21/2018 5:21 PM SERVICE WORKER us Nguyen Coronado CONTINUOUS STILL OPERATOR LAB BLOOD ORDERABLES Final Result [facility] ([facility]) [address] [facility] [place] [address] * TSH reflex to free T4 (10/21/2018 3:59 PM SERVICE WORKER) Pathologist [facility] TSH 1.62 0.30 - 4.20 mcIUnit/mL [facility] ([facility]) Blood specimen (specimen) 10/21/2018 3:59 PM SERVICE WORKER 10/21/2018 4:50 PM SERVICE WORKER Narrative [facility] ([facility]) - 10/21/2018 5:21 PM SERVICE WORKER us Nguyen Coronado CONTINUOUS STILL OPERATOR LAB BLOOD ORDERABLES Final Result Performing Organization Address City/[facility] [address]/ZIP Co de Phone Number [facility] ([facility]) [address] [facility] [place] [address] * Magnesium (10/21/2018 3:59 PM SERVICE WORKER) Pathologist [facility] Magnesium 2.2 1.6 - 2.4 mg/dL [facility] ([facility]) Blood specimen (specimen) 10/21/2018 3:59 PM SERVICE WORKER 10/21/2018 4:50 PM SERVICE WORKER Narrative [facility] ([facility]) - 10/21/2018 5:21 PM SERVICE WORKER us Nguyen Coronado CONTINUOUS STILL OPERATOR LAB BLOOD ORDERABLES Final Result [facility] ([facility]) [address] [facility] [place] [address] documented in this encounter Visit Diagnoses Diagnosis Restless legs syndrome Restless legs syndrome (RLS) Screening for prostate cancer Special screening for malignant neoplasm of prostate documented in this encounter Care Teams Panel Assembler Relationship Specialty Start Date End Date Kiarra Zhong DO PCP - General Family Medicine 10/20/18 11/25/18 documented as of this encounter
--- OUTSIDE RECORDS SUMMARY | 2024-09-17 14:08 | XMS_ITS | Encounter Summary ---
Author Organization [facility] Healthcare Address [address] [place] [address] Care Team Providers Care Solderer Assembler Name Role Phone Quentin Dewitt NP Primary Care Provi christian Reason for Referral * (Routine) - Closed Specialty Diagnoses / Procedures Referred By Contac t Referred To Contact Diagnoses Palpitation Procedures Event Monitor - Loop 30 Day Leti Winchester MD Phone: tel: fax: [facility] [address] [place] [address] Referral ID Status Reason Start Date Expiration Date Visits Re quested Visits Authorized [id number] Closed 08/25/2018 03/05/2020 1 1 D OUTSOLE STITCHER Reason for Visit * Reason Comments Shortness of Breath Chest pain Encounter Details Date Type Department Care Team (Late st Contact Info) Description 08/24/2018 7:42 PM RAPID OUTSOLE STITCHER - 08/25/2018 5:58 PM RAPID OUTSOLE STITCHER Emergency [facility] IMU [address] [place] [address] Kole Devries MD [address] [address] Lorna Garcia MD [address] [place] [address] [place] [address] Leti Winchester MD [address] [place] [address] Chest pain due to myocardial ischemia, unspecified [...] on file Legal Sex Male 8:02 AM RAPID OUTSOLE STITCHER Gender Identity Not on file Sexual Orientation Not on file documented as of this encounter Last Filed Vital Signs Vital Sign Reading Time Taken Comments Blood Pressure 129/82 08/25/2018 3:04 PM RAPID OUTSOLE STITCHER Pulse 69 08/25/2018 3:04 PM RAPID OUTSOLE STITCHER Temperature 36.6 ??C (97.8 ??F) 08/25/2018 3:04 PM CS T Respiratory Rate 18 08/25/2018 3:04 PM RAPID OUTSOLE STITCHER Oxygen Saturation 96% 08/25/2018 3:04 PM RAPID OUTSOLE STITCHER Inhaled Oxygen Concentration - - Weight 108.3 kg (238 lb 12.8 oz) 2017 10:00 PM RAPID OUTSOLE STITCHER Height 188 cm (6' 2 ) 08/24/2018 10:00 PM RAPID OUTSOLE STITCHER Body Mass Index 30.66 08/24/2018 10:00 PM RAPID OUTSOLE STITCHER documented in this encounter Discharge Summaries * Leti Winchester MD - 08/25/2018 5:47 PM CST Patient was admitted and discharged on same day. Please see my brief discharge summary on my admission note. Thank you D OUTSOLE STITCHER documented in this encounter Discharge Instructions * Appointments* Audra Linder RN - 08/25/2018 5:27 PM RAPID OUTSOLE STITCHER Please call centralized scheduling to schedule appointment to get 30 day monitor placed. [phone] D OUTSOLE STITCHER * Attachments The following attachments cannot be sent through Care Everywhere. * Pravastatin (By mouth) (Nicaraguan) * Metoprolol (By mouth) ([place]icaraguan) * Aspirin (By mouth) ([place]icaraguan) documented in this encounter Medications at Time of Discharge buPROPion XL (WELLBUTRIN XL) 150 mg 24 hr tablet Take 150 mg by mouth daily. 10/20/2018 cholecalciferol (VITAMIN D-3) 1,000 unit Take 1,000 Units by mouth daily. 10/20/2018 aspirin 81 mg chewable tabletIndications :prevention of [...] in this encounter H&P Notes * Leti Winchester MD - 08/25/2018 12:59 PM CST General Medicine History and Physical Date Of Service: 08/25/2018 Primary Care Physician: Quentin Palomares, [phone] SUBJECTIVE Patient is a 47 y.o. male [...] physical done by me as mentioned above D OUTSOLE STITCHER D OUTSOLE STITCHER documented in this encounter Consult Notes * [...] mg/dL 10 11 CREATININE mg/dL 0.91 0.99 [id number] mL/min/1.73 m2 99 89 GLUCOSE mg/dL 110 [...] to beta-augustus. Mando Liz, 08/25/2018 8:50 AM D OUTSOLE STITCHER documented in this encounter ED Notes * [...] Comment: Discussed patient's case with Dr. Garcia, [facility], who accepts the patient for admission. [...] words and actions. Kole Devries MD 08/24/182121 D OUTSOLE STITCHER * Digna Rushing RN - 08/24/2018 7:45 [...] nausea or vomiting reported. Denies any diaphoresis. D OUTSOLE STITCHER documented in this encounter Miscellaneous Notes * Plan of Care - Violet Salguero RN - 08/25/2018 5:58 PM CST Goals: Clinical Goals for the Shift: patient will have no chest pain and will remain hemodynamically stable Summary: discharged home in stable condition with all belongings. Patient walked out with staff. D OUTSOLE STITCHER * Plan of Care - Arcelia Hand RN - 08/25/2018 5:42 AM CST Goals: Clinical Goals for the Shift: VSS, labs within normal, no chest pain Summary: Had good night, rested for long intervals when left undisturbed. Voiced no C/O chest pain or SOB Monitoring SB-SR. Medicated X1 for C/O headache. Cont to monitor labs. D OUTSOLE STITCHER documented in this encounter Plan of Treatment Not on file documented as of this encounter Procedures Procedure Name Priority Date/Time Associated Diagnosis Comments D-DIMER, QUANTITATIVE STAT 08/25/2018 2:38 PM RAPID OUTSOLE STITCHER STRESS ECHO EXERCISE WO DOPPLER/CF WO CONTRAST Routine 08/25/2018 1:55 PM RAPID OUTSOLE STITCHER ECG 12-LEAD STAT 08/25/2018 5:30 AM RAPID OUTSOLE STITCHER EGFR Routine 08/25/2018 5:05 AM RAPID OUTSOLE STITCHER DIFFERENTIAL AUTO Routine 08/25/2018 5:0 5 AM RAPID OUTSOLE STITCHER CBC WITH AUTO DIFFERENTIAL Routine 08/25/2018 5:05 AM RAPID OUTSOLE STITCHER TROPONIN T Timed 08/25/2018 5:05 AM RAPID OUTSOLE STITCHER COMPREHENSIVE METABOLIC PANEL Routine 08/25/2018 5:05 AM RAPID OUTSOLE STITCHER HEMOGLOBIN A1C STAT 08/25/2018 5:04 AM RAPID OUTSOLE STITCHER LIPID PANEL STAT 08/25/2018 5:04 AM RAPID OUTSOLE STITCHER TROPONIN T Timed 08/25/2018 12:52 AM RAPID OUTSOLE STITCHER XR CHEST 1 VIEW ED 08/24/2018 8:19 PM RAPID OUTSOLE STITCHER EGFR STAT 08/24/2018 7:56 PM RAPID OUTSOLE STITCHER DIFFERENTIAL AUTO STAT 08/24/2018 7:5 6 PM RAPID OUTSOLE STITCHER PRO B-TYPE NATRIURETIC PEPTIDE STAT 08/24/2018 7:56 PM RAPID OUTSOLE STITCHER CBC WITH AUTO DIFFERENTIAL STAT 08/24/2018 7:56 PM RAPID OUTSOLE STITCHER TROPONIN T STAT 08/24/2018 7:56 PM RAPID OUTSOLE STITCHER COMPREHENSIVE METABOLIC PANEL STAT 08/24/2018 7:56 PM RAPID OUTSOLE STITCHER ECG 12-LEAD STAT 08/24/2018 7:49 PM RAPID OUTSOLE STITCHER documented in this encounter Results * Event Monitor - Loop 30 Day (08/29/2018 1:19 PM RAPID OUTSOLE STITCHER) Anatomical Region Laterality Modality Electrocardiogra phy 09/25/2018 Narrative 09/25/2018 12:52 PM RAPID OUTSOLE STITCHER [address] [place] [address] EVENT MONITOR Patient Name: JADEN CLEMENT : 1970 Study Date: 09/25/2018 00:00:00 Gender: M Tech: Ref.Provider: LETI WINCHESTRE Height(Cm): BSA: Weight(Kg): Order Provider: LETI WINCHESTER [...] Signed By: Dr Mando Liz 2018-09-25 12:52:47 RAPID OUTSOLE STITCHER Procedure Note Mando Liz, DO - 09/25/[address] [place] [address] EVENT MONITOR Patient Name: ALLISON CLEMENTatient ID: [id number] : [id number] Date: 09/25/2018 00:00:00 Gender: MAccession #: [id number] Tech: Ref.Provider: LETI WINCHESTER Height(Cm): BSA: Weight(Kg): [...] Signed By: Dr Mando Liz 2018-09-25 12:52:47 RAPID OUTSOLE STITCHER Leti Winchester MD CV CARDIAC SERVICES PROC EDURES Final Result * (ABNORMAL) D-dimer, quantitative (08/25/2018 2:38 PM RAPID OUTSOLE STITCHER) D-dimer <150(L) 150 - 230 ng/mL D-DU [facility] Comment: Interpretive Data This D-dimer test is approved by the FDA to exclude suspected PE and DVT in outpatients when the result is <230 ng/mL in conjunction with a pre-test probability score of low or moderate using the Wells criteria. Current Interpretive Data was last revised on 2015. Blood specimen (specimen) 08/25/2018 2:38 PM RAPID OUTSOLE STITCHER 08/25/2018 2:54 PM RAPID OUTSOLE STITCHER Narrative [facility] - 08/25/2018 3:17 PM RAPID OUTSOLE STITCHER Patient in stress test 08/25/2018 13:59:19 RAPID OUTSOLE STITCHER Leti Winchester MD LAB BLOOD ORDERABLES Fin al Result [facility] [address] [place] [address] [place] [address] * STRESS ECHO EXERCISE WO DOPPLER/CF WO CONTRAST (08/25/2018 1:55 PM RAPID OUTSOLE STITCHER) Anatomical Region Laterality Modality Nuclear Medicine 08/25/2018 12:5 6 PM RAPID OUTSOLE STITCHER Narrative 08/25/2018 4:00 PM RAPID OUTSOLE STITCHER [address] [place] [address] Stress Echocardiogram Report Patient Name: JADEN CLEMENT : 1970 Study Date: 08/25/2018 12:56:26 Gender: M Tech: WASHERY BOSS Location: [id number] Ref.Provider: LETI WINCHESTER Height(Cm): 188 BSA: Weight(Kg): [...] Signed By: Dr Anoop Pablo 2018-08-25 16:00:22 RAPID OUTSOLE STITCHER Procedure Note Anoop Pablo MD - 08/25/[address] [address] Stress Echocardiogram Report Patient Name: Sherie CLEMENTent ID: [id number] : [id number] Date: 08/25/2018 12:56:26 Gender: MAccession #: [id number] Tech: NPLocation: [id number] Ref.Provider: LETI WINCHESTERHeight(Cm): 188 BSA: Weight(Kg): 112.49 [...] Signed By: Dr Anoop Pablo 2018-08-25 16:00:22 RAPID OUTSOLE STITCHER us Ltei Winchester MD CV ECHO PROCEDURES Final Result * ECG 12 lead (08/25/2018 5:30 AM RAPID OUTSOLE STITCHER) 08/25/2018 5:30 AM RAPID OUTSOLE STITCHER Narrative [facility] - 08/28/2018 11:40 AM RAPID OUTSOLE STITCHER Vent Rate: 54 bpm RR Interval: 1097 msec ND Interval: 169 msec QRS Duration: 99 msec QT Interval: 443 msec QTC Interval: 430 msec P-R-T [place]: 48 - 2 - 1 degrees SINUS BRADYCARDIA J-POINT AND ST ELEVATION SUGGESTS EARLY REPOLARIZATION Consider also pericarditis or injury Clinical correlation advised Electronically Signed By: Rogers King MD us Kole Devries MD ECG ORDERABLES Final R esult [facility] * eGFR (08/25/2018 5:05 AM RAPID OUTSOLE STITCHER) eGFR 99 mL/min/1.7 3 m2 [facility] Comment: Interpretive Data Reference Interval Normal ?>/= 90 mL/min/1.73m2 Mildly decreased* ? 60 - 89 mL/min/1.73m2 Mildly to moderately decreased ?45 - 59 mL/min/1.73m2 Moderately to severely decreased ??30 - 44 mL/min/1.73m2 Severely decreased ?15 - 29 mL/min/1.73m2 Kidney Failure ?< 15 ??mL/min/1.73m2 *Relative to young adult level If -[place] multiply value by 1.16. Estimated glomerular filtration [...] 2016. Blood specimen (specimen) 08/25/2018 5:05 AM RAPID OUTSOLE STITCHER 08/25/2018 5:22 AM RAPID OUTSOLE STITCHER Narrative [facility] ([place] - 08/25/2018 5:58 AM RAPID OUTSOLE STITCHER Kole Devries MD LAB BLOOD ORDERABLES [facility] Result [facility] ([place]) [address] [facility] [place] [address] * Differential, auto (08/25/2018 5:05 AM RAPID OUTSOLE STITCHER) Neutrophil abs 2.7 1.7 - 6.5 K/cumm [...] 2017. Blood specimen (specimen) 08/25/2018 5:05 AM RAPID OUTSOLE STITCHER 08/25/2018 5:22 AM RAPID OUTSOLE STITCHER Narrative [facility] - 08/25/2018 5:25 AM RAPID OUTSOLE STITCHER us Kole Devries MD LAB BLOOD ORDERABLES Fi nal Result [facility] [address] [facility] [place] [address] * Troponin T (08/25/2018 5:05 AM RAPID OUTSOLE STITCHER) Troponin T <0.01 0.00 - 0.01 ng/mL [...] limit for troponin assay. ??Journal of the [place] College of Cardiology 2012;60:1581-98. Current Interpretive Data Last Revised Date: 2018. Blood specimen (specimen) 08/25/2018 5:05 AM RAPID OUTSOLE STITCHER 08/25/2018 5:22 AM RAPID OUTSOLE STITCHER Narrative [facility] - 08/25/2018 6:56 AM RAPID OUTSOLE STITCHER us Kole Devries MD LAB BLOOD ORDERABLES nal Result [facility] [address] [facility] [place] [address] * (ABNORMAL) Comprehensive metabolic panel (08/25/2018 5:05 AM RAPID OUTSOLE STITCHER) Sodium 139 135 - 145 mmol/L [facility] [...] ([place]) Blood specimen (specimen) 08/25/2018 5:05 AM RAPID OUTSOLE STITCHER 08/25/2018 5:22 AM RAPID OUTSOLE STITCHER Narrative [facility] - 08/25/2018 5:58 AM RAPID OUTSOLE STITCHER Kole Devries MD LAB BLOOD ORDERABLES Fi nal Result [facility] [address] [facility] [place] [address] * CBC with auto differential (08/25/2018 5:05 AM RAPID OUTSOLE STITCHER) WBC 5.4 3.8 - 9.9 K/cumm [facility] [...] ([place]) Blood specimen (specimen) 08/25/2018 5:05 AM RAPID OUTSOLE STITCHER 08/25/2018 5:22 AM RAPID OUTSOLE STITCHER Narrative [facility] ([place]) - 08/25/2018 5:25 AM RAPID OUTSOLE STITCHER Kole Devries MD LAB BLOOD ORDERABLES Fi nal Result Performing Organization Address City/[facility]/ZIP Co de Phone Number [facility] [address] [place] [address] * Hemoglobin A1c (08/25/2018 5:04 AM RAPID OUTSOLE STITCHER) Hgb A1C 5.1 4.0 - 5.6 % [facility]) Estimated Average Glucose 100 mg/dL [facility] Comment: The ADA recommends reporting an estimated Average Glucose (eAG) with all Hemoglobin A1c results using the equation derived from a study of 507 normal and diabetic adults. ??Minority populations were underrepresented and children were not included. ?? (Diabetes Care 31:6728-8157, 2008). ??The eAG is not equivalent to a fasting glucose. Blood specimen (specimen) 08/25/2018 5:04 AM RAPID OUTSOLE STITCHER 08/25/2018 2:02 PM RAPID OUTSOLE STITCHER Narrative [facility] ([place] - 08/25/2018 2:15 PM RAPID OUTSOLE STITCHER Leti Winchester MD LAB BLOOD ORDERABLES Fin al Result Performing Organization Address [facility] Co de Phone Number [facility] [address] [facility] [place] [address] * (ABNORMAL) Lipid panel (08/25/2018 5:04 AM RAPID OUTSOLE STITCHER) Cholesterol 168 30 - 199 mg/dL [facility]) Comment: Interpretive Data Ages < or = [...] ([place]) Blood specimen (specimen) 08/25/2018 5:04 AM RAPID OUTSOLE STITCHER 08/25/2018 2:00 PM RAPID OUTSOLE STITCHER Narrative [facility] - 08/25/2018 2:12 PM RAPID OUTSOLE STITCHER us Leti Winchester MD LAB BLOOD ORDERABLES Fin al Result [facility] [address] [facility] [place] [address] * Troponin T (08/25/2018 12:52 AM RAPID OUTSOLE STITCHER) Troponin T <0.01 0.00 - 0.01 ng/mL [...] limit for troponin assay. ??Journal of the [place] College of Cardiology 2012;60:1581-98. Current Interpretive Data Last Revised Date: 2018. Blood specimen (specimen) 08/25/2018 12:52 AM RAPID OUTSOLE STITCHER 08/25/2018 12:56 AM RAPID OUTSOLE STITCHER Narrative [facility] - 08/25/2018 1:17 AM RAPID OUTSOLE STITCHER Kole Devries MD LAB BLOOD ORDERABLES Fi nal Result [facility] [address] [facility] [place] [address] * XR Chest 1 Vw Portable (08/24/2018 8:19 PM RAPID OUTSOLE STITCHER) Anatomical Region Laterality Modality Body, Chest N/A Computed Radiogr aphy 08/24/2018 8:51 PM RAPID OUTSOLE STITCHER Impressions 08/24/2018 8:53 PM RAPID OUTSOLE STITCHER NO ACTIVE DISEASE. Electronically signed by: Stephan Sosa M.D. Narrative 08/24/2018 8:53 PM RAPID OUTSOLE STITCHER XR CHEST 1 VIEW HISTORY: Shortness of [...] Final Result * eGFR (08/24/2018 7:56 PM RAPID OUTSOLE STITCHER) eGFR 89 mL/min/1.7 3 m2 [facility] ([place] Comment: Interpretive Data Reference Interval Normal ?>/= 90 mL/min/1.73m2 Mildly decreased* ? 60 - 89 mL/min/1.73m2 Mildly to moderately decreased ?45 - 59 mL/min/1.73m2 Moderately to severely decreased ??30 - 44 mL/min/1.73m2 Severely decreased ?15 - 29 mL/min/1.73m2 Kidney Failure ?< 15 ??mL/min/1.73m2 *Relative to young adult level If -[place] multiply value by 1.16. Estimated glomerular filtration [...] 2016. Blood specimen (specimen) 08/24/2018 7:56 PM RAPID OUTSOLE STITCHER 08/24/2018 8:01 PM RAPID OUTSOLE STITCHER Narrative [facility] - 08/24/2018 8:20 PM RAPID OUTSOLE STITCHER us Kole Devries MD LAB BLOOD ORDERABLES Fi nal Result [facility] [address] [facility] [place] [address] * Differential, auto (08/24/2018 7:56 PM RAPID OUTSOLE STITCHER) Neutrophil abs 3.5 1.7 - 6.5 K/cumm [...] 2017. Blood specimen (specimen) 08/24/2018 7:56 PM RAPID OUTSOLE STITCHER 08/24/2018 8:01 PM RAPID OUTSOLE STITCHER Narrative [facility]) - 08/24/2018 8:03 PM RAPID OUTSOLE STITCHER Kole Devries MD LAB BLOOD ORDERABLES Fi nal Result Performing Organization Address [facility] Co de Phone Number [facility] [address] [facility] [place] [address] * Troponin T (08/24/2018 7:56 PM RAPID OUTSOLE STITCHER) Troponin T <0.01 0.00 - 0.01 ng/mL [facility] ([place] Comment: Interpretive Data Reference ranges for children <18 years of age have not been established. - > or = 18 years: Serial determinations are recommended for the diagnosis of myocardial infarction. ??Temporal rise and fall are consistent with myocardial infarction when at least one value is above the 99th percentile upper reference limit for troponin assay. ??Journal of the [place] College of Cardiology 2012;60:1581-98. Current Interpretive Data Last Revised Date: 2018. Blood specimen (specimen) 08/24/2018 7:56 PM RAPID OUTSOLE STITCHER 08/24/2018 8:01 PM RAPID OUTSOLE STITCHER Narrative [facility]) - 08/24/2018 8:47 PM RAPID OUTSOLE STITCHER Kole Devries MD LAB BLOOD ORDERABLES Fi nal Result Performing Organization Address [facility] Co de Phone Number [facility] [address] [place] [place] [address] * Pro B-type natriuretic peptide (08/24/2018 7:56 PM RAPID OUTSOLE STITCHER) NT-proBNP 14 <=300 pg/mL [facility] [...] 2018. Blood specimen (specimen) 08/24/2018 7:56 PM RAPID OUTSOLE STITCHER 08/24/2018 8:01 PM RAPID OUTSOLE STITCHER Narrative [facility] - 08/24/2018 8:30 PM RAPID OUTSOLE STITCHER Kole Devries MD LAB BLOOD ORDERABLES Fi nal Result [facility] [address] [facility] [place] [address] * CBC with auto differential (08/24/2018 7:56 PM RAPID OUTSOLE STITCHER) WBC 6.2 3.8 - 9.9 K/cumm [facility] [...] ([place]) Blood specimen (specimen) 08/24/2018 7:56 PM RAPID OUTSOLE STITCHER 08/24/2018 8:01 PM RAPID OUTSOLE STITCHER Narrative [facility] - 08/24/2018 8:03 PM RAPID OUTSOLE STITCHER us Kole Devries MD LAB BLOOD ORDERABLES nal Result [facility] [address] [facility] [place] [address] * Comprehensive metabolic panel (08/24/2018 7:56 PM RAPID OUTSOLE STITCHER) Sodium 139 135 - 145 mmol/L [facility] [...] ([place]) Glucose 128 70 - 199 mg/dL [facility] Comment: Interpretive Data Fasting [...] Specimen Blood specimen (specimen) 08/24/2018 7:56 PM RAPID OUTSOLE STITCHER 08/24/2018 8:01 PM RAPID OUTSOLE STITCHER Narrative [facility] - 08/24/2018 8:20 PM RAPID OUTSOLE STITCHER us Kole Devries MD LAB BLOOD ORDERABLES Fi nal Result [facility] [address] [facility] [place] [address] * ECG 12 lead (08/24/2018 7:49 PM RAPID OUTSOLE STITCHER) 08/24/2018 7:49 PM RAPID OUTSOLE STITCHER Narrative [facility] - 08/28/2018 12:42 PM RAPID OUTSOLE STITCHER Vent Rate: 82 bpm RR Interval: 725 msec ND Interval: 140 msec QRS Duration: 112 msec QT Interval: 380 msec QTC Interval: 419 msec P-R-T [place]: 38 - 8 - 32 degrees SINUS RHYTHM MODERATE INTRAVENTRICULAR CONDUCTION DELAY ??[110+ ms QRS DURATION] BORDERLINE ECG Electronically Signed By: Rogers King MD us Kole Devries MD ECG ORDERABLES Final R esult [facility] documented in this encounter Visit Diagnoses [...] Indications: Fever, PainIndications:Fever,Pain Given 08/25/2018 5:06 AM RAPID OUTSOLE STITCHER 650 mg Given 08/24/2018 10:49 PM RAPID OUTSOLE STITCHER 650 mg aspirin chewable tablet 324 mg 324 mg, oral, Once, On 08/24/18 at 1952, For 1 dose Given 08/24/2018 7:54 PM RAPID OUTSOLE STITCHER 324 mg aspirin chewable tablet 81 mg 81 mg, oral, Daily, First dose on Sat08/25/18 at 0900 Given 08/25/2018 2:48 PM RAPID OUTSOLE STITCHER 81 mg atorvastatin (LIPITOR) tablet 10 mg 10 mg, oral, Daily, First dose on Sat08/25/18 at 1500, This therapy was substituted for pravastatin 20 mg daily per protocol. Given 08/25/2018 2:54 PM RAPID OUTSOLE STITCHER 10 mg buPROPion XL (WELLBUTRIN XL) 24 hour tablet 150 mg 150 mg, oral, Daily, First dose on Sat08/25/18 at 1500, Do not crush, chew, cut, dissolve, open or otherwise manipulate tablet/capsule. Given 08/25/2018 2:49 PM RAPID OUTSOLE STITCHER 150 mg cholecalciferol (VITAMIN D-3) tablet/capsule 1,000 Units 1,000 Units, oral, Daily, First dose on Sat08/25/18 at 1500 Given 08/25/2018 2:49 PM RAPID OUTSOLE STITCHER 1,000 Units enoxaparin (LOVENOX) syringe 40 mg 40 mg, subcutaneous, Daily (for enoxaparin), First dose on 08/24/18 at 2230, Indications: Deep Vein Thrombosis PreventionIndications:De ep Vein Thrombosis Prevention Given 08/24/2018 10:50 PM RAPID OUTSOLE STITCHER 40 mg Right Upper Abdomen famotidine (PEPCID) tablet 20 mg 20 mg, oral, Daily, First dose on 08/25/18 at 1500 Given 08/25/2018 2:49 PM RAPID OUTSOLE STITCHER 20 mg metoprolol (LOPRESSOR) tablet 25 mg 25 mg, oral, 2 times daily, First dose on 08/24/18 at 2230 Given 08/25/2018 2:49 PM RAPID OUTSOLE STITCHER 25 mg metoprolol (LOPRESSOR) tablet 50 mg 50 mg, oral, Once, On 08/24/18 at 1952, For 1 dose Given 08/24/2018 7:55 PM RAPID OUTSOLE STITCHER 50 mg nitroglycerin (NITRO-BID) 2 % ointment [...] area: other Medication Applied 08/24/2018 10:49 PM RAPID OUTSOLE STITCHER 1 inch Right Deltoid ondansetron (ZOFRAN) injection [...] Recently Administered Medications Times are shown in RAPID OUTSOLE STITCHER. Scheduled Medication Order 08/23/2018 08/24/2018 08/25/2018 aspirin [...] Thrombosis Prevention 2250 (Given - Provider: Arcelia aHnd RN) famotidine (PEPCID) tablet 20 mg 20 [...] 08/24/2018 documented in this encounter Care Teams Solderer Assembler Relationship Specialty Start Date End Date Quentin Dewitt NP PCP - General 12/07/16 10/19/18 documented as of this encounter
--- OUTSIDE RECORDS SUMMARY | 2024-09-17 14:08 | XMS_ITS | Encounter Summary ---
Author Organization [facility] Healthcare Address [address] [place] [address] Care Team Providers Care Scrubber System Attendant Name Role Phone Quentin Dewitt NP Primary Care Provi christian Reason for Referral * (Routine) - Closed Specialty Diagnoses / Procedures Referred By Zaida camacho Referred To Contact Diagnoses Palpitation Procedures Event Monitor - Loop 30 Day Enzo Winchester MD Phone: tel: fax: [address] [phone] Referral ID Status Reason Start Date Expiration Date Visits Re quested Visits Authorized [id number] Closed 08/25/2018 03/05/2020 1 1 EY FIELD TECHNICIAN Reason for Visit * (Routine) - Closed Specialty Diagnoses / Procedures Referred By Zaida camacho Referred To Contact Diagnoses Palpitation Procedures Event Monitor - Loop 30 Day Enzo Winchester MD Phone: tel: fax: [address] [phone] Referral ID Status Reason Start Date Expiration Date Visits Re quested Visits Authorized [id number] Closed 08/25/2018 03/05/2020 1 1 Encounter Details Date Type Department Care Team (Late st Contact Info) Description 08/29/2018 12:34 PM SURVEY FIELD TECHNICIAN - 08/29/2018 11:59 PM SURVEY FIELD TECHNICIAN Hospital Encounter [facility] Cardiology [address] [place] [address] Enzo Winchester MD [address] [facility] [place] [address] Palpitation Discharge Disposition: Discharge to home or [...] on file Legal Sex Male 8:02 AM SURVEY FIELD TECHNICIAN Gender Identity Not on file Sexual [...] MONITOR W LOOP Routine 08/29/2018 1:19 PM SURVEY FIELD TECHNICIAN Palpitation documented in this encounter Results * Event Monitor - Loop 30 Day (08/29/2018 1:19 PM SURVEY FIELD TECHNICIAN) Anatomical Region Laterality Modality Electrocardiogra phy 09/25/2018 Narrative 09/25/2018 12:52 PM SURVEY FIELD TECHNICIAN [address] [place] [address] EVENT MONITOR Patient Name: THOMAS CLEMENT : [...] Signed By: Dr Mando Liz 2018-09-25 12:52:47 SURVEY FIELD TECHNICIAN Procedure Note Mando Liz, DO - 09/25/[address] [place] [address] EVENT MONITOR Patient Name: ALLISON CLEMENTatient ID: [id number] : [id number] Date: 09/25/2018 00:00:00 Gender: MAccession #: [id number] Tech: Ref.Provider: NEZO WINCHESTER Height(Cm): BSA: Weight(Kg): Order Provider: ENZO [...] Signed By: Dr Mando Liz 2018-09-25 12:52:47 SURVEY FIELD TECHNICIAN us Enzo Winchester MD [facility] PROC EDURES Final Result documented in this encounter Visit Diagnoses Diagnosis Palpitation Palpitations documented in this encounter Care Teams Scrubber System Attendant Relationship Specialty Start Date End Date Quentin Dewitt NP PCP - General 12/07/16 10/19/18 documented as of this encounter
--- OUTSIDE RECORDS SUMMARY | 2024-09-17 14:08 | XMS_ITS | Encounter Summary ---
Author Organization [facility] Medical Group Address [address] [facility] [address] [place] [address] Care Team Providers Care Retail Store Assistant Name Role Phone Marcela Euceda NP Primary Care Provider [phone] Reason for Referral * Diagnostic Imaging (Routine) - Closed Specialty Diagnoses / Procedures Referred By Contac t Referred To Contact Diagnoses Diffuse abdominal pain Procedures US Abdomen Complete Marcela Euceda NP Phone: tel: fax: [address] [phone] Referral ID Status Reason Start Date Expiration Date Visits Re quested Visits Authorized [id number] Closed 12/18/2018 06/28/2020 1 1 * Diagnostic Imaging (Routine) - Closed Specialty Diagnoses / Procedures Referred By Contac t Referred To Contact Radiology Diagnoses Right flank pain Procedures CT KUB Stone WO Contrast Marcela Euceda NP Phone: tel: fax: [address] [phone] Referral ID Status Reason Start Date Expiration Date Visits Re quested Visits Authorized [id number] Closed 12/18/2018 06/28/2020 1 1 Reason for Visit * Reason Comments Back Pain possible bladder inf ection Encounter Details Date Type Department Care Team (Late st Contact Info) Description 12/18/2018 5:00 PM CDT Office Visit [facility] [address] [place] [address] Marcela Euceda NP [address] [place] [address] [address] [place] [address] Right flank pain (Primary Dx); Urinary frequency; [...] on file 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 Gender Identity Not on file Sexual [...] Final Resu lt [facility] Department [place] [address] * Testosterone (12/25/2018 4:02 PM CDT) Testosterone 574 193 - 740 ng/dL [facility] ([facility]) Comment:Testing performed by : [facility], [address] [place] [address], [place]., [address] Blood specimen (specimen) 12/25/2018 4:02 PM CDT 12/26/2018 10:10 AM CDT Narrative [facility] ([facility] - 12/26/2018 11:02 AM CDT us Marcela Wattsba BREAD PAN GREASER LAB BLOOD ORDERABLES Final Resu lt [facility] ([place]) [facility] Department [place] [address] * Comprehensive metabolic panel (12/25/2018 4:02 PM [...] 12/25/2018 5:35 PM CDT us Marcela Euceda BREAD PAN GREASER LAB BLOOD ORDERABLES Final Resu lt [facility] ([place]) [address] [facility] [place] [address] * CBC with auto differential (12/25/2018 4:02 [...] BLOOD ORDERABLES Final Resu lt [facility] ([place]) 1 [facility] Department [place] [address] * (ABNORMAL) POCT UA, AUTO W/O SCOPE (12/18/2018 5:18 PM CDT) Color, Urine, POC Yellow Clarity, ur, POC Clear Clear Glucose, ur, POC Negative Negative mg/dL Bilirubin, ur, POC Negative Negative, Small, Moderate, Large Ketones, ur, POC Negative Negative Specific [place], POC 1.020 1.005 - 1.030 Blood, ur, [...] 01/19/2019 added in this encounter Care Teams Retail Store Assistant Relationship Specialty Start Date End Date Marcela Euceda NP [address] [place] [address] [address] [place] [address] PCP - General Family Medicine 11/26/18 09/29/19 documented as of this encounter
--- OUTSIDE RECORDS SUMMARY | 2024-09-17 14:08 | XMS_ITS | Encounter Summary ---
Author Organization [facility] Healthcare Address [address] [place] [address] Care Team Providers Care Web Site Developer Name Role Phone Renate Quentin Sandsth DRAW BENCH OPERATOR HELPER Primary Care Provi christian Encounter Details Date Type Department Care Team (Late st Contact Info) Description 07/07/2013 3:55 PM CDT - 07/07/2013 11:59 PM CDT Hospital Encounter [facility] Dena Ramírez DO [address] [facility] [address] [place] [address] Cervical spondylosis without myelopathy Social History Tobacco Use Types Packs/Day Years Used Date Smoking Tobacco: Never Assessed Sex and Gender Information Value Date Recorded Sex Assigned at Not on file 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
--- OUTSIDE RECORDS SUMMARY | 2024-09-17 14:08 | XMS_ITS | Encounter Summary ---
Author Organization [facility] Medical [facility] Address [address] [facility] [address] [place] [address] Care Team Providers Care Crude Oil Driver Name Role Phone Quentin Dewitt NP Primary Care Provi christian Reason for Visit * Reason Onset Date Comments Needing records sent to [facility] 04/22/2017 Encounter Details Date Type Department Care Team (Late st Contact Info) Description 04/22/2017 Telephone [facility] [address] [place] [address] Jada Phillips NP [address] [facility] [address] [place] [address] Needing records sent to [facility] Social History Tobacco Use Types Packs/Day Years Used Date Smoking Tobacco: Smoker, Current Status Unknown Alcohol Use Standard Drinks/Week Comments Yes 0 (1 standard drink = 0.6 oz pur e alcohol) Sex and Gender Information Value Date Recorded Sex Assigned at Not on file 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 Called Jaden back and he is needing his medical records faxed over to [facility]. Jaden is coming In to sign A consent to release information documented in this encounter Plan of Treatment Not on file documented as of this encounter Visit Diagnoses Not on filedocumented in this encounter Care Teams Crude Oil Driver Relationship Specialty Start Date End Date Quentin Dewitt NP PCP - General 12/07/16 10/19/18 documented as of this encounter
--- OUTSIDE RECORDS SUMMARY | 2024-09-17 14:08 | XMS_ITS | Encounter Summary ---
Author Organization [facility] Healthcare Address [address] [place] [address] Care Team Providers Care Automobile Or Truck Rental Dispatcher Name Role Phone Quentin Dewitt NP Primary Care Provi christian Encounter Details Date Type Department Care Team (Late st Contact Info) Description 12/14/2015 3:54 PM CDT - 12/14/2015 11:59 PM CDT Hospital Encounter [facility] Dena Ramírez DO [address] [facility] [address] [place] [address] Palpitations Social History Tobacco Use Types Packs/Day Years Used Date Smoking Tobacco: Smoker, Current Status Unknown Alcohol Use Standard Drinks/Week Comments No 0 (1 standard drink = 0.6 oz pur e alcohol) Sex and Gender Information Value Date Recorded Sex Assigned at Not on file 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
--- OUTSIDE RECORDS SUMMARY | 2024-09-17 14:08 | XMS_ITS | Encounter Summary ---
Author Organization [facility] Healthcare Address [address] [place] [address] Care Team Providers Care Pig Farmer Name Role Phone Quentin Dewitt NP Primary Care Provi christian Encounter Details Date Type Department Care Team (Late st Contact Info) Description 07/12/2016 4:36 PM CDT - 07/12/2016 11:59 PM CDT Hospital [place] [address] [address] Quentin Dewitt NP [address] [place] [address] Encounter for general adult medical examination without abnormal findings; Hyperlipidemia; Essential (primary) hypertension Social History Tobacco Use Types Packs/Day Years Used Date Smoking Tobacco: Smoker, Current Status Unknown Alcohol Use Standard Drinks/Week Comments Yes 0 (1 standard drink = 0.6 oz pur e alcohol) Sex and Gender Information Value Date Recorded Sex Assigned at Not on file Legal Sex Male 8:02 AM PHARMACEUTICAL REPRESENTATIVE Gender Identity Not on file Sexual [...] hypertension documented in this encounter Care Teams Pig Farmer Relationship Specialty Start Date End Date Quentin Dewitt NP PCP - General 12/29/13 12/06/16 documented as of this encounter
--- OUTSIDE RECORDS SUMMARY | 2024-09-17 14:08 | XMS_ITS | Encounter Summary ---
Author Organization [facility] Medical Group Address [address] [facility] [address] [place] [address] Care Team Providers Care Armed Security Guard Name Role Phone Kiarra Zhong DO Primary Care Provider [phone] Encounter Details Date Type Department Care Team (Late st Contact Info) Description 10/22/2018 Telephone [facility] [address] [place] [address] Kiarra Zhong DO [address] [address] Social History Tobacco Use Types Packs/Day Years Used Date Smoking Tobacco: Never Smokeless Tobacco: Current Chew Comments:chews, not interest ed in counseling Alcohol Use Standard Drinks/Week Comments Yes 0 (1 standard drink = 0.6 oz pur e alcohol) can of beer a month Sex and Gender Information Value Date Recorded Sex Assigned at Not on file 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
--- OUTSIDE RECORDS SUMMARY | 2024-09-17 14:08 | XMS_ITS | Encounter Summary ---
Author Organization [facility] Medical [facility] Address [address] [facility] [address] [place] [address] Care Team Providers Care Outcomes Manager Name Role Phone Kiarra Zhong DO Primary Care Provider [phone] Reason for Visit * Reason Comments Other Gag reflux overactiv e Encounter Details Date Type Department Care Team (Latest Contact Info) Description 10/29/2018 3:40 PM TECH ED TEACHER Office Visit [facility] - [facility] [address] [facility] [address] [place] [address] Arcelia Head [address] [facility] [address] [place] [address] Laryngopharyngeal reflux (LPR) (Primary Dx); Abnormal gag [...] on file Legal Sex Male 8:02 AM TECH ED TEACHER Gender Identity Not on file Sexual Orientation Not on file documented as of this encounter Last Filed Vital Signs Vital Sign Reading Time Taken Comments Blood Pressure 132/90 10/29/2018 3:34 PM TECH ED TEACHER Pulse 70 10/29/2018 3:34 PM TECH ED TEACHER Temperature 37.1 ??C (98.7 ??F) 10/29/2018 3:34 PM CS T Respiratory Rate - - Oxygen Saturation - - Inhaled Oxygen Concentration - - Weight 123.7 kg (272 lb 9.6 oz) 10/29/2018 3:34 PM TECH ED TEACHER Height 188 cm (6' 2 ) 10/29/2018 3:34 PM TECH ED TEACHER Body Mass Index 35 10/29/2018 3:34 PM TECH ED TEACHER documented in this encounter Patient Instructions * Patient Instructions* Arcelia Head, DO - 10/29/2018 3:40 PM TECH ED TEACHER Start Zantac 300 mg at bedtime Increase [...] of your medicines. Information provided courtesy of: [employer]?? www.[employer] Com??2015 [email or web address]?? ED TEACHER ED TEACHER ED TEACHER ED TEACHER documented in this encounter Ordered Prescriptions [...] since stopping tobacco. Last year at the CT: had throat stretched and vocal fold polyps [...] total) by mouth nightly. Arcelia Head DO ED TEACHER documented in this encounter Miscellaneous Notes * Assessment & Plan Note - Arcelia Head DO - 10/29/2018 4:10 PM TECH ED TEACHER Associated Problem(s): Abnormal gag reflex (Deleted) Start Zantac 300 mg at bedtime Increase caffeine free and soda free fluid daily LPR discussed and Handout provided ED TEACHER * Assessment & Plan Note - Arcelia Head DO - 10/29/2018 4:10 PM TECH ED TEACHER Associated Problem(s): Laryngopharyngeal reflux (LPR) Start Zantac 300 mg at bedtime Increase caffeine free and soda free fluid daily LPR discussed and Handout provided ED TEACHER documented in this encounter Plan of Treatment Not on file documented as of this encounter Visit Diagnoses Diagnosis Laryngopharyngeal reflux (LPR)- Primary Abnormal gag reflex documented in this encounter Care Teams Outcomes Manager Relationship Specialty Start Date End Date Kiarra Zhong DO PCP - General Family Medicine 10/20/18 11/25/18 documented as of this encounter
--- OUTSIDE RECORDS SUMMARY | 2024-09-17 14:08 | XMS_ITS | Encounter Summary ---
Author Organization [facility] Facility Care Team Providers Care Forest Logistics Manager Name Role Phone Marcela Euceda NP Primary Care Provider [phone] Encounter Details Date Type Department Care Team [...] on file Legal Sex Male 8:02 AM LAST SAWYER Gender Identity Not on file Sexual Orientation Not on file documented as of this encounter Plan of Treatment Not on file documented as of this encounter Visit Diagnoses Not on filedocumented in this encounter Care Teams Forest Logistics Manager Relationship Specialty Start Date End Date Marcela Euceda NP [address] [place] [address] [address] [place] [address] PCP - General Family Medicine 11/26/18 09/29/19 documented as of this encounter
--- OUTSIDE RECORDS SUMMARY | 2024-09-17 14:08 | XMS_ITS | Encounter Summary ---
Author Organization [facility] Healthcare Address [address] [place] [address] Care Team Providers Care Kelp Gatherer Name Role Phone Quentin Dewitt NP Primary Care Provi christian Encounter Details Date Type Department Care Team (Late st Contact Info) Description 08/30/2015 10:13 AM INSTRUCTOR INDUSTRIAL DESIGN - 08/30/2015 11:[address] 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
--- OUTSIDE RECORDS SUMMARY | 2024-09-17 14:08 | XMS_ITS | Encounter Summary ---
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
--- OUTSIDE RECORDS SUMMARY | 2024-09-17 14:08 | XMS_ITS | Encounter Summary ---
Author Organization [facility] Address [address] [place] [address] Care Team Providers Care Circuit Breaker Assembler Name Role Phone ZhongKiarra Primary Care Provider [phone] Reason for Referral * Consultation (Routine) - Closed Specialty Diagnoses / Procedures Referred By Contac t Referred To Contact Otolaryngology Diagnoses Abnormal gag reflex Nguyen Coronado NP Phone: tel: fax: Arcelia Head DO Phone: tel: fax: Referral ID Status Reason Start Date Expiration Date V isits Requested Visits Authorized [id number] Closed Specialty Services Required 10/20/2018 04/30/2020 1 1 Question Answer Please select the performing region: External Order [[id number]] Comments Emre [facility] [phone] PASTER * Consultation (Routine) - Closed Specialty Diagnoses / Procedures Referred By Contac t Referred To Contact Gastroenterology Diagnoses Non-intractable cyclical vomiting without nausea Screening for colon cancer Abnormal gag reflex Nguyen Coronado NP Phone: tel: fax: [place] [address] [facility] [address] [place] [address] Phone: tel: fax: Referral ID Status Reason Start Date Expiration Date V isits Requested Visits Authorized [id number] Closed Specialty Services Required 10/20/2018 04/30/2020 1 1 Question Answer Please select the performing region: [facility] [[id number]] Please select the performing department: RONALDO [facility] [place] [facility] [[id number]] Comments Reidel PASTER * Consultation (Routine) - Closed Specialty Diagnoses / Procedures Referred By Contac t Referred To Contact Neurology Diagnoses Obstructive sleep apnea syndrome Primary insomnia Nguyen Coronado NP Phone: tel: fax: Aristeo Kramer MD [address] [place] [address] [address] [place] [address] Phone: tel: fax: Referral ID Status Reason Start Date Expiration Date V isits Requested Visits Authorized [id number] Closed Specialty Services Required 10/20/2018 04/30/2020 1 1 Question Answer Please select the performing region: [facility] [[id number]] Please select the performing department: RODRIGUEZ [facility] [[id number]] Comments ARISTEO KRAMER [[id number]] PASTER Reason for Visit * Reason Comments New Patient establish care Fatigue Restless Legs Hypertension Encounter Details Date Type Department Care Team (Late st Contact Info) Description 10/20/2018 3:45 PM PLUG PASTER [facility] Visit [facility] [address] [place] [address] Nguyen Coronado NP [address] [place] [address] Encounter to establish care (Primary Dx); Essential [...] on file Legal Sex Male 8:02 AM PLUG PASTER Gender Identity Not on file Sexual Orientation Not on file documented as of this encounter Last Filed Vital Signs Vital Sign Reading Time Taken Comments Blood Pressure 147/90 10/20/2018 4:26 PM PLUG PASTER Pulse 71 10/20/2018 4:26 PM PLUG PASTER Temperature 36.6 ??C (97.9 ??F) 10/20/2018 4:26 PM CS T Respiratory Rate 18 10/20/2018 4:26 PM PLUG PASTER Oxygen Saturation 95% 10/20/2018 4:26 PM PLUG PASTER Inhaled Oxygen Concentration - - Weight 108 kg (238 lb) 10/20/2018 4:26 PM PLUG PASTER Height 188 cm (6' 2 ) 10/20/2018 4:26 PM PLUG PASTER Body Mass Index 30.56 10/20/2018 4:26 PM PLUG PASTER documented in this encounter Patient Instructions * Patient Instructions* Nguyen Coronado, ALAN - 10/20/2018 5:20 PM PLUG PASTER Images from the original note were not [...] plan of care Patient Education Chronic Hypertension PROGRAM ASSOCIATE: Hypertension is high blood pressure (BP). Your [...] balance. Check labels to find low-sodium or vq-fkyu-axovu foods. Some low-sodium foods use potassium salts [...] ask them during your visits. ?? 2017 [employer] Information is for End User's use only and may not be sold, redistributed or otherwise used for commercial purposes. All illustrations and images included in CareNotes?? are the copyrighted property of [employer]. or [employer] The above information is an diet aide only. It is not intended as medical advice for individual conditions or treatments. Talk to your doctor, nurse or pharmacist before following any medical regimen to see if it is safe and effective for you. PASTER PASTER PASTER documented in this encounter Ordered Prescriptions Prescription [...] monitor done at discharge Ruled out for [place] Past Medical History: Diagnosis Date ??? Anxiety [...] in agreement with the plan of care PASTER documented in this encounter Miscellaneous Notes * Assessment & Plan Note - Nguyen Coronado NP - 10/20/2018 10:51 PM PLUG PASTER Associated Problem(s): Palpitation (Resolved 09/30/2019) Recent chest pain, palpitations and went to ER 08/24/18 CXR normal Stress exercise Echo-Conclusions: Adequate stress test in regards to heart rate. No exercise induced chest pain. No definite ischemia on stress EKG. No Echocardiographic evidence of ischemia. PASTER * Assessment & Plan Note - Nguyen Coronado NP - 10/20/2018 10:30 PM PLUG PASTER Associated Problem(s): Restless legs syndrome Reports worsening [...] caffeine, nicotine, and alcohol) should be minimized. PASTER * Assessment & Plan Note - Nguyen Coronado NP - 10/20/2018 10:25 PM PLUG PASTER Associated Problem(s): Non-intractable cyclical vomiting without nausea (Resolved 04/28/2020) Reports almost daily vomiting in the morning when he wakes up. No nausea associated with it. Unsure if it is related to his TAJ, hypersensitive gag reflex or if there is an enlarged tonsil/mass hitting the gag reflex Refer to ENT and GI I do believe he has GERD PASTER * Assessment & Plan Note - Nguyen Coronado NP - 10/20/2018 10:23 PM PLUG PASTER Associated Problem(s): Obstructive sleep apnea syndrome Hx of TAJ Last sleep study about 9 years ago Wakes up tired, fatigue, unrefreshed, still problems with sleep and snoring Needs updated sleep study TAJ may be increasing his symptoms of RLS at night Refer to Dr. Kramer PASTER * Assessment & Plan Note - Nguyen Coronado NP - 10/20/2018 10:21 PM PLUG PASTER Associated Problem(s): Hyperlipidemia Lipid abnormalities are unchanged. Nutritional counseling was provided. Lipids will be reassessed in 3 months. Continue with pravastatin Recheck Lipids in 6 months PASTER * Assessment & Plan Note - Nguyen Coronado NP - 10/20/2018 5:12 PM PLUG PASTER Associated Problem(s): Essential hypertension Hypertension is worsening. [...] office for blood pressure greater than 130/80 PASTER PASTER * Addendum Note - Eriberto Panda - 10/20/2018 3:45 PM CSTAddended by: ERIBERTO PANDA on: 10/21/2018 03:58 PM Modules accepted: Orders PASTER documented in this encounter Plan of Treatment [...] Results * PSA screen (10/21/2018 3:59 PM PLUG PASTER) PSA-Total 3.20 <=3.90 ng/mL [facility] ([place]) Comment: Interpretive Data ?AGE ? SEX ?REFERENCE INTERVAL 0 minutes-150 years ?Female ?None 0 minutes-49 years ? Male ?None ? 50-59 years ? Male ?0-3.90 ? 60-69 years ? Male ?0-5.40 ? 70-79 years ? Male ?0-6.20 ? 80-150 years ?Male ?0-6.20 Current interpretive data last revised 2018. Testing performed by: [facility], [address] [place] [address], [place]., [address] Blood specimen (specimen) 10/21/2018 3:59 PM PLUG PASTER 10/22/2018 9:28 AM PLUG PASTER Narrative [facility] ([place]) - 10/22/2018 10:46 AM PLUG PASTER us Nguyen Coronado VEHICLE DETAILER LAB BLOOD ORDERABLES Final Result Performing Organization Address [facility] Co de Phone Number [facility] ([place]) [address] [facility] [place] [place] [address] * (ABNORMAL) Ferritin (10/21/2018 3:59 PM PLUG PASTER) Ferritin 509(H) 30 - 400 ng/mL [facility] ([place]) Blood specimen (specimen) 10/21/2018 3:59 PM PLUG PASTER 10/21/2018 4:50 PM PLUG PASTER Narrative [facility] ([place]) - 10/21/2018 5:21 PM PLUG PASTER us Nguyen Coronado VEHICLE DETAILER LAB BLOOD ORDERABLES Final Result Performing Organization Address [facility] Co de Phone Number [facility] ([place]) [address] [facility] [place] [address] * TSH reflex to free T4 (10/21/2018 3:59 PM PLUG PASTER) TSH 1.62 0.30 - 4.20 mcIUnit/mL [facility] ([place]) Blood specimen (specimen) 10/21/2018 3:59 PM PLUG PASTER 10/21/2018 4:50 PM PLUG PASTER Narrative [facility] ([place]) - 10/21/2018 5:21 PM PLUG PASTER us Nguyen Coronado VEHICLE DETAILER LAB BLOOD ORDERABLES Final Result Performing Organization Address City/[facility]/ZIP Co de Phone Number [facility] [place]) [address] [facility] [place] [place] [address] * Magnesium (10/21/2018 3:59 PM PLUG PASTER) Magnesium 2.2 1.6 - 2.4 mg/dL [facility] ([place]) Blood specimen (specimen) 10/21/2018 3:59 PM PLUG PASTER 10/21/2018 4:50 PM PLUG PASTER Narrative [facility] ([place]) - 10/21/2018 5:21 PM PLUG PASTER us Nguyen Coronado NP LAB BLOOD ORDERABLES Final Result [facility] [place]) [address] [facility] [place] [place] [address] documented in this encounter Visit Diagnoses Diagnosis [...] documented as of this encounter Care Teams Circuit Breaker Assembler Relationship Specialty Start Date End Date Kiarra Zhong DO PCP - General Family Medicine 10/20/18 11/25/18 documented as of this encounter
--- OUTSIDE RECORDS SUMMARY | 2024-09-17 14:08 | XMS_ITS | Encounter Summary ---
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
--- OUTSIDE RECORDS SUMMARY | 2024-09-17 14:08 | XMS_ITS | Encounter Summary ---
Author Organization [facility] Healthcare Address [address] [place] [address] Care Team Providers Care Gas Engine Performance Engineer Name Role Phone Quentin Dewitt NP Primary Care Provi christian Encounter Details Date Type Department Care Team (Late st Contact Info) Description 08/02/2015 8:19 AM TECHNOLOGY PROFESSIONAL - 08/02/2015 11:59 PM TECHNOLOGY PROFESSIONAL Hospital Encounter [facility] Dena Carver DO [address] [place] [address] Anesthesia of skin Social History Tobacco Use Types Packs/Day Years Used Date Smoking Tobacco: Smoker, Current Status Unknown Alcohol Use Standard Drinks/Week Comments No 0 (1 standard drink = 0.6 oz pur e alcohol) Sex and Gender Information Value Date Recorded Sex Assigned at Not on file 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
== END 2024-09-10 09:18 | disposition home or self-care (01) ==
PROVIDERS: Emergency Provider Nurse Practitioner; PCP Family Medicine
DX: J06.9 Acute upper respiratory infection, unspecified (principal); Z20.822 Contact with and (suspected) exposure to COVID-19; I10 Essential (primary) hypertension; E78.00 Pure hypercholesterolemia, unspecified
CPT/HCPCS: 87426; 87804; 99212; G0463